=== PATIENT | female | born 1960 | race Caucasian/White ===

== ENCOUNTER 2018-06-07 11:40 | Outpatient (REF) | payer MEDICAID, SELFPAY ==
[2018-06-07 12:34] LABS: TSH (W/Ref FT4) 1.79 uIU/mL (0.358-3.74)
== END 2018-06-07 12:00 ==
LOC: LBN 11:40
PROVIDERS: PCP Family Medicine; Visit Provider Family Medicine
DX: R63.4 Abnormal weight loss (principal)
CPT/HCPCS: 84443

== ENCOUNTER 2018-08-07 14:35 | Outpatient (REF) | payer MEDICAID, SELFPAY ==
[2018-08-08 16:49] LABS: Bilirubin Negative (Negative); Blood Trace-intact (Negative); Clarity Cloudy; Glucose Negative (Negative); Ketones Negative (Negative); Leukocyte Esterase Moderate (Negative); Nitrite Positive (Negative); Specific Gravity 1.015 (1.005-1.025); Urobilinogen 0.2 EU/dL (Up TO 0.2); pH 7.5 (5-8)
[2018-08-08 16:51] LABS: Bacteria Many HPF (Negative); Epithelial Cells Many HPF (Negative); WBC >50 HPF (0-5)
[2018-08-08 16:52] LABS: C & S Indicated? No/Sq. Contamination; Casts Negative LPF (Negative); Crystals Negative HPF (Negative); Mucus Negative (Negative)
== END 2018-08-07 14:55 ==
LOC: LBN 14:35
PROVIDERS: PCP Family Medicine; Visit Provider Family Medicine
DX: N39.0 Urinary tract infection, site not specified (principal)
CPT/HCPCS: 81003; 81015

== ENCOUNTER 2018-08-10 09:18 | Outpatient (REF) | payer MEDICAID, SELFPAY ==
[2018-08-10 12:20] LABS: Bilirubin Negative (Negative); Blood Small (Negative); Clarity Sl Cloudy; Glucose Negative (Negative); Ketones Negative (Negative); Leukocyte Esterase Large (Negative); Nitrite Negative (Negative); Specific Gravity 1.015 (1.005-1.025); Urobilinogen 0.2 EU/dL (Up TO 0.2)
[2018-08-10 12:32] LABS: Bacteria Many HPF (Negative); C & S Indicated? Yes; WBC >50 HPF (0-5)
== END 2018-08-10 09:38 ==
LOC: LBN 09:18
PROVIDERS: PCP Family Medicine; Visit Provider Family Medicine
DX: N39.0 Urinary tract infection, site not specified (principal)
CPT/HCPCS: 87077; 81003; 81015; 87086; 87186

== ENCOUNTER 2018-08-19 14:59 | Outpatient (REF) | payer MEDICAID, SELFPAY ==
[2018-08-19 15:47] LABS: Abs Immature Grans 0.02 k/cumm (0.0-0.09); Absolute Basophil Count 0.01 k/cumm (0.0-0.2); Absolute Eosinophil Count 0.05 k/cumm (0.0-0.7); Absolute Lymphocyte Count 3.69 k/cumm (1.2-3.4); Absolute Monocyte Count 0.74 k/cumm (0.11-0.7); Basophils % 0.1; Eosinophils % 0.4; HCT 40.9 % (36.0-46.0); HGB 13.4 g/dL (12.0-15.5); Immature Grans % 0.2; Mean Corp. HGB Concentration 32.8 g/dL (32.0-36.0); Mean Corpuscular Hemoglobin 32.3 pg (27.0-33.0); Mean Corpuscular Volume 98.6 fL (80-95); Mean Platelet Volume 10.6 fL (8.0-11.0); Monocytes % 6.2; Neutrophils % 62.1; Platelet Count 167 x1000/uL (130-400); RBC 4.15 m/cumm (4.00-5.20); RBC Distribution Width 14.6 % (11.7-14.6); White Blood Cell Count 11.91 k/cumm (4.4-10.8)
[2018-08-19 16:05] LABS: Hemoglobin A1C 5.2 % (4.5-6.2)
[2018-08-19 16:11] LABS: ALT 10 U/L (12-78); AST 16 U/L (15-37); Albumin 3.3 g/dL (3.4-5.0); Alkaline Phosphatase 62 U/L (46-116); Anion Gap 9.8 mmol/L (3-11); BUN 8 mg/dL (7-18); Bilirubin, Total 0.6 mg/dL (0.2-1.0); CO2 29.2 mmol/L (21.0-32.0); CREATININE 0.83 mg/dL (0.55-1.02); Calcium 9.3 mg/dL (8.5-10.1); Chloride 102 mmol/L (98-107); Glucose 77 mg/dL (70-100); Potassium 3.9 mmol/L (3.5-5.1); Sodium 141 mmol/L (136-145); TSH (W/Ref FT4) 1.14 uIU/mL (0.358-3.74); Total Protein 7.5 g/dL (6.4-8.2)
== END 2018-08-19 15:19 ==
LOC: LBN 14:59
PROVIDERS: PCP Family Medicine; Visit Provider Family Medicine
DX: E11.40 Type 2 diabetes mellitus with diabetic neuropathy, unspecified (principal); E03.9 Hypothyroidism, unspecified; R63.4 Abnormal weight loss
CPT/HCPCS: 80053; 83036; 84443; 85025

== ENCOUNTER 2018-09-30 12:18 | Outpatient (REF) | payer MEDICAID, SELFPAY ==
[2018-09-30 13:09] LABS: Bilirubin Negative (Negative); Blood Moderate (Negative); Clarity Cloudy; Glucose Negative (Negative); Ketones Trace mg/dL (Negative); Leukocyte Esterase Large (Negative); Nitrite Positive (Negative); Specific Gravity 1.025 (1.005-1.025); Urobilinogen 0.2 EU/dL (Up TO 0.2)
[2018-09-30 13:18] LABS: WBC >50 HPF (0-5)
[2018-09-30 13:19] LABS: C & S Indicated? Yes
== END 2018-09-30 12:38 ==
LOC: LBN 12:18
PROVIDERS: PCP Family Medicine; Visit Provider Family Medicine
DX: R33.9 Retention of urine, unspecified (principal); N39.0 Urinary tract infection, site not specified
CPT/HCPCS: 87077; 81003; 81015; 87086; 87186

== ENCOUNTER 2018-10-01 15:33 | Outpatient (REF) | payer MEDICAID, SELFPAY ==
[2018-10-01 18:14] LABS: Bilirubin Negative (Negative); Blood Moderate (Negative); Clarity Cloudy; Glucose Negative (Negative); Ketones Trace mg/dL (Negative); Leukocyte Esterase Large (Negative); Nitrite Positive (Negative); Urobilinogen 0.2 EU/dL (Up TO 0.2)
[2018-10-01 18:22] LABS: Bacteria Many HPF (Negative); Crystals Negative HPF (Negative); Epithelial Cells Negative HPF (Negative); Other Cells Rare Renal (Negative); RBC >50 (0-2); WBC >50 HPF (0-5)
[2018-10-01 18:23] LABS: C & S Indicated? Yes; Casts Negative LPF (Negative); Mucus Trace (Negative)
== END 2018-10-01 15:53 ==
LOC: LBN 15:33
PROVIDERS: PCP Family Medicine; Visit Provider Family Medicine
DX: R33.9 Retention of urine, unspecified (principal); N39.0 Urinary tract infection, site not specified
CPT/HCPCS: 81003; 81015; 87086

== ENCOUNTER 2018-10-15 00:30 | Outpatient (CLI) | payer MEDICAID, SELFPAY ==
--- NOTE | 2018-10-15 10:25 | DI.COMBO_ITS ---
SYMPTOMS/DIAGNOSIS: RT BREAST PAIN, DIAGNOSTIC MAMMOGRAM, ADDITIONAL VIEWS OF THE RIGHT BREAST AND RIGHT BREAST ULTRASOUND: Mammograms were interpreted according to the usual protocol including computer analysis with CAD system, tomosynthesis and C view imaging. There are no priors for comparison. Should they become available, an addendum will be issued. Breast density B. No suspicious microcalcifications are seen. No suspicious masses are seen in the left breast. There is an asymmetric density in the upper outer quadrant of the right breast. The skin and axilla are unremarkable. Right breast ultrasound was performed in the upper outer quadrant. There was a question of an area of hypoechogenicity in the 10:00 o'clock position of the right breast. The area was much less prominent under direct visualization in cine. It appears to represent fibroglandular tissue. IMPRESSION: No definite evidence for malignancy. Six month follow up right mammogram is requested for re-evaluation. Category 3. The findings were discussed with the patient and caregiver at the time of the examination. When prior films become available, an addendum will be issued. MQSA ASSESSMENT OF FINDINGS: Probably benign. Six month follow-up recommended. Category 3. Patient will receive a letter notifying them of these results. BI-RADS category B. There are scattered areas of fibroglandular density.
== END 2018-10-15 00:50 ==
PROVIDERS: PCP Family Medicine; Visit Provider Family Medicine
DX: N64.4 Mastodynia (principal); R92.8 Other abnormal and inconclusive findings on diagnostic imaging of breast; N60.81 Other benign mammary dysplasias of right breast
CPT/HCPCS: 76642; 77062; 77066; G0279

== ENCOUNTER 2018-10-29 19:17 | Inpatient (IN) | payer MEDICAID, SELFPAY ==
[2018-10-29] VITALS (63 sets, daily range): BP systolic 69–109; BP diastolic 40–61; PULSE 77–113; RESP 13–26; TEMP 36.6–37.2; O2SAT 80–97
--- NOTE | 2018-10-29 19:24 | W.ED.GENAD ---
Discharge Plan Disposition Patient Disposition: [facility] INPATIENT Condition: Critical Discharge Details Chief Complaint: SOB Clinical Impression: HCAP (healthcare-associated pneumonia), Sepsis Reason For Visit: NOAM Primary Care Provider: Pio Odonnell ED Provider: Chance [facility] [place] Meds and New Rx's Prescriptions: No Action prednisone 10 mg Tablet 80 mg PO DAILY RF: 0 albuterol sulfate 2.5 mg /3 mL (0.083 %) Solution For Nebulization 1 neb Inhalation TID RF: 0 valproic acid (as sodium salt) 250 mg/5 mL Solution 10 ml PO BID RF: 0 mycophenolate mofetil 200 mg/mL Suspension For Reconstitution 0.5 ml PO DAILY RF: 0 bupropion HCl 150 MG tablet extended release 12 hr 150 mg PO DAILY RF: 0 trazodone 50 MG tablet 50 mg PO HS RF: 0 simethicone 180 MG capsule 180 mg PO TID PRNRF: 0 melatonin 3 MG tablet 3 mg PO HS PRNRF: 0 levothyroxine 100 MCG tablet 100 mcg PO DAILY AM RF: 0 prednisone 2.5 MG tablet 2.5 mg PO DAILY RF: 0 simvastatin 20 MG tablet 20 mg PO HS RF: 0 carbidopa-levodopa 1 EACH tablet 1 ea PO QID RF: 0 bupropion HCl 150 MG tablet extended release 24 hr 300 mg PO QAM RF: 0 cholecalciferol (vitamin D3) 1,000 UNITS tablet 2,000 units PO DAILY RF: 0 lamotrigine 50 MG tablet extended release 24hr 50 mg PO BID RF: 0 Multivitamin/Iron/Folic Acid [Centrum Adults Tablet] 1 EACH Tablet 1 tab PO DAILY RF: 0 aspirin 81 MG tablet,chewable 81 mg PO DAILY RF: 0 Medical Decision Making 58 yo female who is bed bound with right sided weakness from prior cva who comes in from the [facility] with 3 days of cough/weakness and today had fevers to 102 and hypoxia into the 70's so was sent here. She normally wears 2 L NC, here on 2 L her o2 saturation is 88% and is noted to have systolic bp's in the 80's. She states she has had a cough, along with diarrhea. She has diminished breath sounds at the bases bilaterally on exam and has mild llq pain. Denies headaches or chest pain. No rashes noted on exam. Will obtain iamging of the chest/abd/pelvis given the fever and cough to eval for pna and also given abd tenderness to eval for diverticulitis. Will also check for influenza and give fluids for her hypotension Patient's labs show ky, has lactic acidosis. CT shows bilateral pneumonia. she remains hypotensive. I had a long discussion with her about placing a central line if pressors are needed and she declined to have a central line at this time and has the capacity to make her own decisions. She would like pressors given through a peripheral line if they are needed and understands the risks of extravasation if this does happen. Will given another liter of fluids and check another lactate. Spoke with Dr. Garza who will admit the patient Differential Diagnosis pna, diverticulitis, influenza, uti Imaging Data Radiologic Study: Attestation: I personally reviewed and interpreted this imaging study as follows: Imaging: CT Scan Radiologist's impression: pna, fecal impaction HPI General Mode of arrival: EMS. Date/Time Provider Initiated Documentation: 10/29/18 19:21. Limitations to Documentation: no limitations. Information obtained by: patient and EMS. History of Present Illness 58 year old F presents to the emergency department with the chief complaint of fever, Patient reports no radiation. Patient started experiencing this day(s) (1) and it has been intermittent. No relieving factors improve symptom(s), No exacerbating factors reported . Patient notes no other symptoms.. Patient did receive the following treatments prior to arrival, none Related Data Home Medications Medication Instructions Recorded Confirmed Multivitamin/Iron/Folic Acid 1 tab PO DAILY 08/08/17 10/29/18 [Centrum Adults Tablet] bupropion HCl 150 mg PO DAILY 08/08/17 10/29/18 bupropion HCl 300 mg PO QAM 08/08/17 10/29/18 carbidopa-levodopa 1 ea PO QID 08/08/17 10/29/18 cholecalciferol (vitamin D3) 2,000 units PO DAILY 08/08/17 10/29/18 lamotrigine 50 mg PO BID 08/08/17 10/29/18 levothyroxine 100 mcg PO DAILY AM 08/08/17 10/29/18 melatonin 3 mg PO HS PRN 08/08/17 12/08/17 prednisone 2.5 mg PO DAILY 08/08/17 12/08/17 simethicone 180 mg PO TID PRN 08/08/17 12/08/17 simvastatin 20 mg PO HS 08/08/17 12/08/17 trazodone 50 mg PO HS 08/08/17 10/29/18 aspirin 81 mg PO DAILY chew 08/10/17 10/29/18 albuterol sulfate 1 neb INHALATION TID 10/29/18 10/29/18 mycophenolate mofetil 0.5 ml PO DAILY 10/29/18 10/29/18 prednisone 80 mg PO DAILY 10/29/18 10/29/18 valproic acid (as sodium salt) 10 ml PO BID 10/29/18 10/29/18 Previous Rx's Medication Instructions Recorded aspirin 81 mg PO DAILY chew 08/10/17 Allergies Allergy/AdvReac Type Severity Reaction Status Date / Time naproxen [From Aleve] Allergy Unverified 10/29/18 20:16 Penicillins Allergy Unverified 10/29/18 20:16 propoxyphene Allergy Unverified 10/29/18 20:16 Sulfa (Sulfonamide Allergy Unverified 10/29/18 20:16 Antibiotics) Review of Systems Review of Systems All systems reviewed & are unremarkable except as noted in HPI and below Eyes Denies loss of vision ENT Denies change in voice Cardiovascular Denies dyspnea Respiratory Denies dyspnea Gastrointestinal Denies nausea and Denies vomiting Genitourinary Denies dysuria Musculoskeletal Denies joint swelling Integumentary/Breasts Denies rash Neurologic Denies loss of vision Psychiatric Denies depression Endocrine Denies cold intolerance and Denies heat intolerance PFS Social History Smoking/Tobacco Use Status: Unknown Exam Const General: no acute distress Orientation: alert HENMT Head: normal to inspection Ears: external ears normal General nose exam: external nose normal Mouth: moist mucous membranes Eyes General: appearance normal, both eyes and all related structures Neck Neck: normal visual inspection Resp Effort & Inspection: normal respiratory effort Cardio Rate: regular rate Skin General skin exam: no rashes or lesions noted Neuro General: alert and oriented x3 Extrem General: normal to inspection Psych Mental Status: mental status grossly normal Course Lab/Test Results Lab/Test Results: 10/29/18 19:13 Blood Blood Culture - Pending 10/29/18 19:13 Blood Blood Culture - Pending Critical Care Time Critical Care Time: Yes Total Critical Care Time: 60 Attestation: time spent monitoring hemodyamics, lab review and frequent reassessments in a patient with septic shock
[2018-10-29] MEDS: Normal Saline 1,000 ML 1000 ML IV ×3 (19:40→21:30)
--- NOTE | 2018-10-29 19:42 | ED.GENADUL_ITS ---
Discharge Plan Disposition Patient Disposition: [facility] INPATIENT Condition: Critical Discharge Details Chief Complaint: SOB Clinical Impression: HCAP (healthcare-associated pneumonia), Sepsis Reason For Visit: NOAM Primary Care Provider: Pio Odonnell ED Provider: [facility] [place] Meds and New Rx's Prescriptions: No Action prednisone 10 mg Tablet 80 mg PO DAILY RF: 0 albuterol sulfate 2.5 mg /3 mL (0.083 %) Solution For Nebulization 1 neb Inhalation TID RF: 0 valproic acid (as sodium salt) 250 mg/5 mL Solution 10 ml PO BID RF: 0 mycophenolate mofetil 200 mg/mL Suspension For Reconstitution 0.5 ml PO DAILY RF: 0 bupropion HCl 150 MG tablet extended release 12 hr 150 mg PO DAILY RF: 0 trazodone 50 MG tablet 50 mg PO HS RF: 0 simethicone 180 MG capsule 180 mg PO TID PRNRF: 0 melatonin 3 MG tablet 3 mg PO HS PRNRF: 0 levothyroxine 100 MCG tablet 100 mcg PO DAILY AM RF: 0 prednisone 2.5 MG tablet 2.5 mg PO DAILY RF: 0 simvastatin 20 MG tablet 20 mg PO HS RF: 0 carbidopa-levodopa 1 EACH tablet 1 ea PO QID RF: 0 bupropion HCl 150 MG tablet extended release 24 hr 300 mg PO QAM RF: 0 cholecalciferol (vitamin D3) 1,000 UNITS tablet 2,000 units PO DAILY RF: 0 lamotrigine 50 MG tablet extended release 24hr 50 mg PO BID RF: 0 Multivitamin/Iron/Folic Acid [Centrum Adults Tablet] 1 EACH Tablet 1 tab PO DAILY RF: 0 aspirin 81 MG tablet,chewable 81 mg PO DAILY RF: 0 Medical Decision Making 58 yo female who is bed bound with right sided weakness from prior cva who comes in from the [facility] with 3 days of cough/weakness and today had fevers to 102 and hypoxia into the 70's so was sent here. She normally wears 2 L NC, here on 2 L her o2 saturation is 88% and is noted to have systolic bp's in the 80's. She states she has had a cough, along with diarrhea. She has diminished breath sounds at the bases bilaterally on exam and has mild llq pain. Denies headaches or chest pain. No rashes noted on exam. Will obtain iamging of the chest/abd/pelvis given the fever and cough to eval for pna and also given abd tenderness to eval for diverticulitis. Will also check for influenza and give fluids for her hypotension Patient's labs show ky, has lactic acidosis. CT shows bilateral pneumonia. she remains hypotensive. I had a long discussion with her about placing a central line if pressors are needed and she declined to have a central line at this time and has the capacity to make her own decisions. She would like pressors given through a peripheral line if they are needed and understands the risks of extravasation if this does happen. Will given another liter of fluids and check another lactate. Spoke with Dr. Garza who will admit the patient Differential Diagnosis pna, diverticulitis, influenza, uti Imaging Data Radiologic Study: Attestation: I personally reviewed and interpreted this imaging study as follows: Imaging: CT Scan Radiologist's impression: pna, fecal impaction HPI General Mode of arrival: EMS . Date/Time Provider Initiated Documentation: 10/29/18 19:21 . Limitations to Documentation: no limitations . Information obtained by: patient and EMS . History of Present Illness 58 year old F presents to the emergency department with the chief complaint of fever, Patient reports no radiation. Patient started experiencing this day(s) (1) and it has been intermittent. No relieving factors improve symptom(s), No exacerbating factors reported . Patient notes no other symptoms.. Patient did receive the following treatments prior to arrival, none Related Data Home Medications Medication Instructions Recorded Confirmed Multivitamin/Iron/Folic Acid 1 tab PO DAILY 08/08/17 10/29/18 [Centrum Adults Tablet] bupropion HCl 150 mg PO DAILY 08/08/17 10/29/18 bupropion HCl 300 mg PO QAM 08/08/17 10/29/18 carbidopa-levodopa 1 ea PO QID 08/08/17 10/29/18 cholecalciferol (vitamin D3) 2,000 units PO DAILY 08/08/17 10/29/18 lamotrigine 50 mg PO BID 08/08/17 10/29/18 levothyroxine 100 mcg PO DAILY AM 08/08/17 10/29/18 melatonin 3 mg PO HS PRN 08/08/17 12/08/17 prednisone 2.5 mg PO DAILY 08/08/17 12/08/17 simethicone 180 mg PO TID PRN 08/08/17 12/08/17 simvastatin 20 mg PO HS 08/08/17 12/08/17 trazodone 50 mg PO HS 08/08/17 10/29/18 aspirin 81 mg PO DAILY chew 08/10/17 10/29/18 albuterol sulfate 1 neb INHALATION TID 10/29/18 10/29/18 mycophenolate mofetil 0.5 ml PO DAILY 10/29/18 10/29/18 prednisone 80 mg PO DAILY 10/29/18 10/29/18 valproic acid (as sodium salt) 10 ml PO BID 10/29/18 10/29/18 Previous Rx's Medication Instructions Recorded aspirin 81 mg PO DAILY chew 08/10/17 Allergies Allergy/AdvReac Type Severity Reaction Status Date / Time naproxen [From Aleve] Allergy Unverified 10/29/18 20:16 Penicillins Allergy Unverified 10/29/18 20:16 propoxyphene Allergy Unverified 10/29/18 20:16 Sulfa (Sulfonamide Allergy Unverified 10/29/18 20:16 Antibiotics) Review of Systems Review of Systems All systems reviewed & are unremarkable except as noted in HPI and below Eyes Denies loss of vision ENT Denies change in voice Cardiovascular Denies dyspnea Respiratory Denies dyspnea Gastrointestinal Denies nausea and Denies vomiting Genitourinary Denies dysuria Musculoskeletal Denies joint swelling Integumentary/Breasts Denies rash Neurologic Denies loss of vision Psychiatric Denies depression Endocrine Denies cold intolerance and Denies heat intolerance PFS Social History Smoking/Tobacco Use Status: Unknown Exam Const General: no acute distress Orientation: alert HENMT Head: normal to inspection Ears: external ears normal General nose exam: external nose normal Mouth: moist mucous membranes Eyes General: appearance normal, both eyes and all related structures Neck Neck: normal visual inspection Resp Effort & Inspection: normal respiratory effort Cardio Rate: regular rate Skin General skin exam: no rashes or lesions noted Neuro General: alert and oriented x3 Extrem General: normal to inspection Psych Mental Status: mental status grossly normal Course Lab/Test Results Lab/Test Results: 10/29/18 19:13 Blood Blood Culture - Pending 10/29/18 19:13 Blood Blood Culture - Pending Critical Care Time Critical Care Time: Yes Total Critical Care Time: 60 Attestation: time spent monitoring hemodyamics, lab review and frequent reassessments in a patient with septic shock
[2018-10-29 19:46] LABS: Abs Immature Grans 0.02 k/cumm (0.0-0.09); HCT 37.1 % (36.0-46.0); HGB 12.2 g/dL (12.0-15.5); Immature Grans % 0.3; Mean Corp. HGB Concentration 32.9 g/dL (32.0-36.0); Mean Corpuscular Hemoglobin 32.2 pg (27.0-33.0); Mean Corpuscular Volume 97.9 fL (80-95); Mean Platelet Volume 9.5 fL (8.0-11.0); Platelet Count 191 x1000/uL (130-400); RBC 3.79 m/cumm (4.00-5.20); RBC Distribution Width 14.2 % (11.7-14.6); White Blood Cell Count 5.82 k/cumm (4.4-10.8)
[2018-10-29] MEDS: Omnipaque 350 MG/ML 100 ML BTL IV (19:56)
[2018-10-29 19:57] LABS: INR 1.1 (0.9-1.1); Prothrombin Time 11.1 sec (9.3-11.0)
--- NOTE | 2018-10-29 20:05 | DI.CT_ITS ---
SYMPTOM/DIAGNOSIS: COUGH, FEVER, ABD PAIN CHEST, ABDOMEN AND PELVIC CT: There are no prior comparison CT's. The exam is limited by patient motion. There are bibasilar areas of pulmonary consolidation, right greater than left. Additional smaller areas of increased density are seen inferiorly at the right lung base. The heart size is normal. There is no evidence of aortic aneurysm or dissection. The liver, spleen, adrenals and left kidney are unremarkable. There is a large stone in the right renal pelvis which does not appear to be obstructing. An additional smaller stone is seen in the mid right kidney. The pancreas is mildly atrophic. There is a large quantity of stool seen in the rectum which is markedly distended. The remainder of the colon contains a normal quantity of stool. There is no gross evidence of bowel obstruction. There is a rounded area of low density in the uterus, consistent with a fibroid. The urinary bladder is unremarkable. IMPRESSION: 1. Bibasilar consolidation. 2. Large quantity of stool in the rectum with severe distension of the rectum. 3. 15 mm. stone in the right renal pelvis without evidence of obstruction.
[2018-10-29] MEDS: methylPREDNISolone SUCC 125 MG VIAL IVP (20:06)
[2018-10-29] MEDS: Albuterol/Ipratropium 3 ML UPD VIAL UPD (20:06)
[2018-10-29 20:07] LABS: AST 26 U/L (15-37); Albumin 2.1 g/dL (3.4-5.0); Alkaline Phosphatase 66 U/L (46-116); Bilirubin, Direct 0.21 mg/dL (0.00-0.20); Bilirubin, Total 0.5 mg/dL (0.2-1.0); Lipase 24 U/L (73-393); Total Protein 7.2 g/dL (6.4-8.2)
[2018-10-29 20:08] LABS: AST 27 U/L (15-37); Albumin 2.1 g/dL (3.4-5.0); Alkaline Phosphatase 67 U/L (46-116); BUN 65 mg/dL (7-18); Bilirubin, Total 0.5 mg/dL (0.2-1.0); Calcium 9.9 mg/dL (8.5-10.1); Chloride 97 mmol/L (98-107); Estimated GFR 22.93 (mL/min/1.73m2); Glucose 141 mg/dL (70-100); Magnesium 1.7 mg/dL (1.8-2.4); Potassium 3.5 mmol/L (3.5-5.1); Sodium 134 mmol/L (136-145); Total Protein 7.2 g/dL (6.4-8.2)
[2018-10-29 20:09] LABS: ALT 2 U/L (12-78); ALT 4 U/L (12-78)
[2018-10-29 20:21] LABS: Absolute Lymphocyte Count 0.87 k/cumm (1.2-3.4); Absolute Monocyte Count 0.23 k/cumm (0.11-0.7); Absolute Neutrophil Count 4.71 k/cumm (1.2-6.7); Atypical Lymphocytes % 2; Diff Comment Manual Differential; Lactate-non-spesis 5.6 mmol/l (0.6-1.4); Polychromasia Present
--- NOTE | 2018-10-29 20:23 | DI.VRAD_ITS ---
EXAM: CT Chest With Contrast EXAM DATE/TIME: 10/29/2018 7:23 PM CLINICAL HISTORY: 58 years old, female; Pain and signs and symptoms; Fever; Abdominal pain; Generalized; Cough and fever; Other: Abdominal pain, cough; Patient HX: Cough, fever, abdominal pain. HX stroke, unable to move arms TECHNIQUE: Axial computed tomography images of the chest with intravenous contrast. All CT scans at this facility use at least one of these dose optimization techniques: automated exposure control; mA and/or kV adjustment per patient size (includes targeted exams where dose is matched to clinical indication); or iterative reconstruction. Coronal and sagittal reformatted images were created and reviewed. CONTRAST: 100 ml of Omnipaque 350 administered intravenously. COMPARISON: No relevant prior studies available. FINDINGS: Lungs: Severe right lower lobe consolidation. Moderate left lower lobe consolidation. Rounded density measuring 17 mm x 11 mm within the inferior aspect the right middle lobe (axial image 44). Differential diagnosis includes rounded pneumonia, rounded atelectasis as well as neoplasm. Pleural space: Normal. No pneumothorax. No pleural effusion. Heart: Normal. No cardiomegaly. No pericardial effusion. Aorta: Normal. No aortic aneurysm. Lymph nodes: Unremarkable. No enlarged lymph nodes. Bones/joints: Degenerative spondylosis of the thoracic spine and status post anterior spinal fusion from C5-C7. Soft tissues: Unremarkable. IMPRESSION: 1. Bilateral lower lobe consolidation, severe on the right a moderate on the left. 2. Rounded density within the right middle lobe. Differential diagnosis includes rounded pneumonia, rounded atelectasis and pulmonary neoplasm. Followup imaging to confirm resolution is recommended. EXAM: CT Abdomen and Pelvis With Contrast EXAM DATE/TIME: 10/29/2018 7:23 PM CLINICAL HISTORY: 58 years old, female; Pain and signs and symptoms; Fever; Abdominal pain; Generalized; Cough and fever; Other: Abdominal pain, cough; Patient HX: Cough, fever, abdominal pain. HX stroke, unable to move arms TECHNIQUE: Axial computed tomography images of the abdomen and pelvis with intravenous contrast. All CT scans at this facility use at least one of these dose optimization techniques: automated exposure control; mA and/or kV adjustment per patient size (includes targeted exams where dose is matched to clinical indication); or iterative reconstruction. Coronal and sagittal reformatted images were created and reviewed. CONTRAST: 100 ml of Omnipaque 350 administered intravenously. COMPARISON: No relevant prior studies available. FINDINGS: Lower thorax: No acute findings. ABDOMEN: Liver: Unremarkable. No mass. Gallbladder and bile ducts: Unremarkable. No calcified stones. No ductal dilation. Pancreas: Unremarkable. No ductal dilation. Spleen: Unremarkable. No splenomegaly. Adrenals: Normal. No mass. Kidneys and ureters: Staghorn calculus measuring 15 mm x 15 mm within the right renal pelvis. 4 mm nonobstructing stone in the right kidney lower pole. No right hydronephrosis. Unremarkable left kidney and ureter. Stomach and bowel: Large fecal load within the rectum which is distended. The remainder of the colon is unremarkable. Normal caliber small bowel. Unremarkable stomach. No bowel obstruction. Appendix: No evidence of appendicitis. PELVIS: Bladder: Unremarkable as visualized. Reproductive: Low-density uterine mass measuring 6.9 cm x 8.1 cm x 5.1 cm, likely fibroid. Unremarkable adnexa. ABDOMEN and PELVIS: Intraperitoneal space: Unremarkable. No free air. No significant fluid collection. Bones/joints: Degenerative spondylosis of the lower lumbar spine. No fracture or suspicious bone lesion. Soft tissues: Unremarkable. Vasculature: Unremarkable. No abdominal aortic aneurysm. Lymph nodes: Unremarkable. No enlarged lymph nodes. IMPRESSION: 1. Right nephrolithiasis with 15 mm Staghorn calculus within the right renal pelvis. 2. Large fecal load within the rectum, possibly fecal impaction. 3. Low-density uterine mass, likely fibroid. Dictated and Authenticated by: Duglas Barber MD. Ordering:DANNY Fletcher MD
[2018-10-29] MEDS: CEFEPIME 2 GM in Normal Saline 100 ML IVPB (20:25)
--- NOTE | 2018-10-29 21:04 | NUR.NOTE ---
patient had large stool aware, hospitalist into examine room, MD lea inserted 2nd U/S IV left upper arm #[id number] Note:
[2018-10-29] MEDS: DOPamine 400 MG/250 ML BAG 9.713 MG IV (21:16)
--- NOTE | 2018-10-29 21:18 | HPE_ITS ---
Date of service: 10/29/18 Time of Service: 21:12 Assessment and Plan (1) Sepsis: Current visit: Yes Status: Acute Sepsis. At this point pneumonia the the putative source but I would like to see a urine as well. Regardless, in the meantime will continue treatment with vancomycin and cefepime, renally dosed. We will continue aggressive fluid resuscitation but will start dopamine (note that patient has declined to have a central line so dopamine will be used in the absence of a central venous access). We will also obtain urinalysis and will monitor CBC electrolytes and renal function. Will also give stress dose steroids though it should be noted that patient has received 125 mg of Solu-Medrol here in the emergency room with persistent hypotension so clearly that is not the immediate issue as far as her blood pressure goes. Advanced directives were reviewed with patient and she remains full code History of Present Illness Chief Complaint: cough, fever Narrative: Patient is a 58-year-old female with multiple medical problems, resident of the [facility]. She comes to the emergency room with several days of cough, fever, weakness and O2 sats down to the 70s. In the emergency room initial findings of note for hypotension, hypoxia, bilateral pneumonitis. She was given 2 L of fluids and loading doses of vancomycin and cefepime. She was admitted for further evaluation and management Past medical history stroke, diabetes, bipolar, unspecified autoimmune disorder, hypothyroid, Parkinson's, history of bronchospasm Allergies Naprosyn, penicillin, propoxyphene, sulfa Medications aspirin 81 daily bupropion 450 daily, Sinemet, vitamin D, Lamictal 50 twice daily, Synthroid 100 daily, mycophenolate 0.5 daily, prednisone maintenance 2.5 daily did receive 80mg recently trazodone 50 at bedtime Depakote uncertain dose Physical exam: Temp 37.2 blood pressure at present 73 systolic, pulse 99 O2 sat 97. HEENT no signs of head trauma neck is supple lungs sounds are diminished, bronchial, heart obscured by respirations but regular rate and rhythm. Abdomen is soft nontender pelvic rectal exams deferred neurological patient has severe dysarthria and right hemiparesis Laboratory: White count 5.8 hematocrit 37 platelet 191 sodium 134 potassium 3.5 chloride 97 bicarb 25 BUN 65 creatinine 2.2 glucose [address] chest abdomen pelvis shows bilateral pneumonitis, no acute findings in the abdomen Review of Systems Review of Systems All systems reviewed & are unremarkable except as noted in HPI and below PFSH Social History Smoking/Tobacco Use Status: Unknown Meds Home Medications Medication Instructions Recorded Confirmed Type Multivitamin/Iron/Folic Acid 1 tab PO DAILY 08/08/17 10/29/18 History [Centrum Adults Tablet] bupropion HCl 150 mg PO DAILY 08/08/17 10/29/18 History bupropion HCl 300 mg PO QAM 08/08/17 10/29/18 History carbidopa-levodopa 1 ea PO QID 08/08/17 10/29/18 History cholecalciferol (vitamin D3) 2,000 units PO DAILY 08/08/17 10/29/18 History lamotrigine 50 mg PO BID 08/08/17 10/29/18 History levothyroxine 100 mcg PO DAILY AM 08/08/17 10/29/18 History melatonin 3 mg PO HS PRN 08/08/17 12/08/17 History prednisone 2.5 mg PO DAILY 08/08/17 12/08/17 History simethicone 180 mg PO TID PRN 08/08/17 12/08/17 History simvastatin 20 mg PO HS 08/08/17 12/08/17 History trazodone 50 mg PO HS 08/08/17 10/29/18 History aspirin 81 mg PO DAILY chew 08/10/17 10/29/18 Rx albuterol sulfate 1 neb INHALATION TID 10/29/18 10/29/18 History mycophenolate mofetil 0.5 ml PO DAILY 10/29/18 10/29/18 History prednisone 80 mg PO DAILY 10/29/18 10/29/18 History valproic acid (as sodium salt) 10 ml PO BID 10/29/18 10/29/18 History Allergies Allergy/AdvReac Type Severity Reaction Status Date / Time naproxen [From Aleve] Allergy Unverified 10/29/18 20:16 Penicillins Allergy Unverified 10/29/18 20:16 propoxyphene Allergy Unverified 10/29/18 20:16 Sulfa (Sulfonamide Allergy Unverified 10/29/18 20:16 Antibiotics) Exam Narrative Exam Narrative: per HPI Results Labs : 10/29/18 19:40 10/29/18 19:40 Laboratory Results - last 24 hr 10/29/18 10/29/18 10/29/18 19:40 19:40 19:40 WBC 5.82 RBC 3.79 L Hgb 12.2 Hct 37.1 MCV 97.9 H MCH 32.2 MCHC 32.9 RDW 14.2 Plt Count 191 MPV 9.5 Immature Gran % 0.3 Neutrophils % 58.0 Band Neutrophils % 23.0 Lymphocytes % 13.0 Atypical Lymphs % 2 Monocytes % 4.0 Eosinophils % 0.0 Basophils % 0.0 Absolute Neutrophils 4.71 Absolute Lymphocytes 0.87 L Absolute Monocytes 0.23 Absolute Eosinophils 0.00 Absolute Basophils 0.00 Differential Comment Manual differential RBC Morphology See below Polychromasia Present PT INR APTT Sodium 134 L Potassium 3.5 Chloride 97 L Carbon Dioxide 25.0 Anion Gap 12.0 H BUN 65 H Creatinine 2.20 H Estimated GFR/1.73 m2 22.93 Glucose 141 H Lactate 5.6 H Calcium 9.9 Magnesium 1.7 L Total Bilirubin 0.5 Conjugated Bilirubin AST 27 ALT 4 L Alkaline Phosphatase 67 Total Protein 7.2 Albumin 2.1 L Lipase 10/29/18 10/29/18 19:40 19:40 WBC RBC Hgb Hct MCV MCH MCHC RDW Plt Count MPV Immature Gran % Neutrophils % Band Neutrophils % Lymphocytes % Atypical Lymphs % Monocytes % Eosinophils % Basophils % Absolute Neutrophils Absolute Lymphocytes Absolute Monocytes Absolute Eosinophils Absolute Basophils Differential Comment RBC Morphology Polychromasia PT 11.1 H INR 1.1 APTT 36.0 H Sodium Potassium Chloride Carbon Dioxide Anion Gap BUN Creatinine Estimated GFR/1.73 m2 Glucose Lactate Calcium Magnesium Total Bilirubin 0.5 Conjugated Bilirubin 0.21 H AST 26 ALT 2 L Alkaline Phosphatase 66 Total Protein 7.2 Albumin 2.1 L Lipase 24 L Last Vital Signs Temp 37.2 C 10/29/18 19:21 Pulse 97 H 10/29/18 20:00 Resp 19 10/29/18 20:01 BP 78/43 L 10/29/18 20:00 Pulse Ox 97 10/29/18 20:01
[2018-10-29 21:20] LABS: Lactate-non-spesis 6.4 mmol/l (0.6-1.4)
[2018-10-29] MEDS: VANCOMYCIN 1,000 MG in Normal Saline 250 ML 166.6666 MG IVPB (21:20)
--- NOTE | 2018-10-29 21:49 | NUR.NOTE ---
during IV check, Left upper arm appeared swollen, IV infused stopped, MD made aware. patient agreed to have femoral line Nursing Note:
--- NOTE | 2018-10-29 22:43 | NUR.NOTE ---
MD Power ionserted triple lumen central line in right groin patient tolerated it well Nursing Note:
--- NOTE | 2018-10-29 22:49 | NUR.NOTE ---
late entry, 16 estonian catheter 200mL voided. Nursing Note:
--- NOTE | 2018-10-29 22:51 | NUR.NOTE ---
report given to Alicia RN Nursing Note:
--- NOTE | 2018-10-29 23:05 | NUR.NOTE ---
IV's removed from left upper arm, warm blanket applied Nursing Note:
[2018-10-30] VITALS (192 sets, daily range): BP systolic 77–140; BP diastolic 39–101; PULSE 77–152; RESP 13–30; TEMP 36.7–37.1; O2SAT 84–99
[2018-10-30 03:45] LABS: Bilirubin Negative (Negative); Blood Small (Negative); Clarity Clear; Glucose Negative (Negative); Ketones Negative (Negative); Leukocyte Esterase Small (Negative); Nitrite Positive (Negative); Urobilinogen 0.2 EU/dL (Up TO 0.2)
[2018-10-30 03:56] LABS: Bacteria Few HPF (Negative); Crystals Negative HPF (Negative); Epithelial Cells Rare HPF (Negative); Mucus Negative (Negative); RBC 0-2 (0-2)
[2018-10-30 03:57] LABS: C & S Indicated? Yes; Casts Negative LPF (Negative)
[2018-10-30] MEDS: methylPREDNISolone SUCC 40 MG VIAL 20 MG IVP ×3 (04:48→20:43)
[2018-10-30 07:46] LABS: HCT 33.1 % (36.0-46.0); HGB 10.8 g/dL (12.0-15.5); Mean Corp. HGB Concentration 32.6 g/dL (32.0-36.0); Mean Corpuscular Hemoglobin 32.1 pg (27.0-33.0); Mean Corpuscular Volume 98.5 fL (80-95); Mean Platelet Volume 9.8 fL (8.0-11.0); Platelet Count 158 x1000/uL (130-400); RBC 3.36 m/cumm (4.00-5.20); RBC Distribution Width 14.1 % (11.7-14.6); White Blood Cell Count 6.06 k/cumm (4.4-10.8)
[2018-10-30 07:51] LABS: Anion Gap 11.6 mmol/L (3-11); BUN 40 mg/dL (7-18); CO2 23.4 mmol/L (21.0-32.0); Chloride 107 mmol/L (98-107); Estimated GFR 46.14 (mL/min/1.73m2); Glucose 175 mg/dL (70-100); Sodium 142 mmol/L (136-145)
[2018-10-30 08:02] LABS: Potassium 2.6 mmol/L (3.5-5.1)
[2018-10-30] MEDS: Albuterol 2.5 MG/3 ML INH SOLN VIAL IH (09:20)
[2018-10-30] MEDS: POTASSIUM CHLORIDE 20 MEQ/100 ML BAG 50 MEQ IVPB ×2 (10:01→12:15)
[2018-10-30] MEDS: Normal Saline Flush 10 ML SYR IVP ×4 (10:01→19:57)
[2018-10-30 10:42] LABS: Lactate-non-spesis 1.9 mmol/l (0.6-1.4)
--- NOTE | 2018-10-30 11:08 | OTIE_ITS ---
Occupational Therapy Notes Inpatient Occupational Therapy Evaluation Date: 10/30/18 Referring Doctor:Yojana Osorio MD OT Orders: eval and treat Precautions: Contact precautions PATIENT PROFILE/ADMITTING DIAGNOSIS: Pt is a 58 year old female who presented to the ER on 10/29/18 after several days of coughing, fever and weakness with O2 sats in 70's from [facility]. It was found that she had hypotension, hypoxia and (B) pneumonitis. Past Medical History: Stroke, diabetes, bipolar, unspecified autoimmune disorder, hypothyroid, Parkinson's, history of bronchospasm, (R) hemiparesis. Social History/Home Situation: Pt is a resident at [facility]. She reports that she is maida lift (A) for any ambulation. She also reports that her baseline is total (A) all ADLs with bathing being performed in bed, dressing in bed, eating sitting in bed, she reports that the only movement she had throughout the day was from bed to the chair and back to her bed. She sleeps in a bed but requires (A) for any movement or adjustment. Equipment owned/DME: Living in SNF with all DME needs met. SUBJECTIVE: Pt was sitting in her bed with (B) UE propped on pillows. She is tired and is agreeable to OT session however reports throughout session that she is total (A) for all ADLs/IADLs. OBJECTIVE: General Observation:, Noticeable tremor in (L) UE, BP (L) UE, Telemery, O2 nasal mask Mental Status: A&Ox3 Pain: no c/o pain ROM: (B) UE pt reports she is unable to lift. Nursing reports that she can lift (L) UE minimally. Pt was unable to demonstrate this during consult. She had no AROM to (R) UE and stated please don't lift (R) arm right now OT was unable to test PROM. STRENGTH: (B) UE unable to accurately test strength due to limited ROM. She had weak hospital account manager on (L) UE and unable to hospital account manager OTs fingers with (R). BALANCE Static sitting Good Dynamic Sitting Poor SPECIAL TESTS: Daily Activity Limitations Standardized Measure [facility] AM -PAC ?6 clicks? Daily Activity Inpatient Short Form: Raw score: 6 Standardized score: 17.07 CMS score: 100% CMS modifier: CN INFORMED CONSENT/EDUCATION: Pt instructed in purpose of OT Consult and plan of care. ASSESSMENT: Patient is a 58-year-old female referred to occupational therapy services with diagnosis of hypotension, hypoxia and (B) peneumonitis secondary to Stroke, diabetes, bipolar, unspecified autoimmune disorder, hypothyroid, Park inson's, history of bronchospasm, (R) hemiparesis. Pt was seen for evaluation only, she reports that her baseline (I) is total (A) she has limited function in (B) UE and this limits her (I) in ADL routines. Pt is not appropriate for skilled OT intervention and is currently presenting at her baseline. Due to this, OT will discharge pt from skilled OT services and recommends that pt return to [facility] when medically cleared per MD. AMPAC score 6, CMS score 100% Patient is assessed as a high [id number] complexity based on the following: History: See Above Examination: See Above Presentation: Evolving Decision Making: AMPAC score 6, CMS score 100% GOALS N/A PLAN OF CARE/TREATMENT PLAN: OT consult only DISCHARGE RECOMMENDATIONS OT recommends that pt return to [facility] when medically cleared per MD. TREATMENT TIME/MINUTES/CODES 24300, 10 minutes (10:50) Summer Ventura OTR/L [facility]
[2018-10-30] MEDS: POTASSIUM CHLORIDE/0.9% NACL 1,000 ML 125 MEQ IV ×2 (11:12→20:07)
[2018-10-30 11:18] LABS: Abs Immature Grans 0.03 k/cumm (0.0-0.09)
[2018-10-30 11:27] LABS: Magnesium 1.7 mg/dL (1.8-2.4)
--- NOTE | 2018-10-30 11:57 | PHARADMIT ---
Addendum entered by Winston Ward III 10/31/18 10:56: Pharmacy Note Subjective HCAP with complicatd UTI, has dysphagia from CVA (awaiting swallow evaluation) Objective VS-Ok Na-147 K+3.9 Mag-1.8 H&H-9.5/29.5 Assessment empiric TXT with Vancomycin/Cefepime,. Awaiting swallow evaluation before giving Wellbutrin XL dose. Plan Urology consult may require patient to be transferred ( unavailable until Sunday), due to staghorn Calculus Original Note: Admission Pharmacy Clinical Review SEPSIS, PNEUMONIA Code Status Full Code Current Weight Wgt-71 kg Renally Cleared and Narrow Therapeutic Index Meds CrCl~ 38.5 mL/min Meds-OK QTc Value / Action Taken none currrent BP Control, Fever BP- 81/49 Tmax- 36.9C Electrolytes reviewed Na- 142 K+2.6 Mag-1.7 DVT Prophylaxis ASA, Opiate Usage / Scheduled Bowel Regimen Ordered No No Plt/SCr for Heparin / Enoxaparin Plts- 158 SCr-1.20 INR for Warfarin inr-1.1 H/H stable, WBC/Bands H&H- 10.8/33.1 WBC- 6.06 Antibiotic appropriateness Cefepime, Vancomycin Cultures and Sensitivities Blood, Urine, MRSA-nose,-pending, Flu-recheck pending Surgical ABX d/c within 24 hr na DM control / Insulin Dosing BG-175 Heart Failure (Check EF%) (HANNA's, B-Block, Diuretics) Levophed, IV to PO Switch No Home Meds Reviewed Yes Home Meds Not Ordered Lokesh Salgado, Comments PatOwn-Mycophenolate Liquid
[2018-10-30 11:58] LABS: Absolute Lymphocyte Count 0.36 k/cumm (1.2-3.4); Absolute Monocyte Count 0.18 k/cumm (0.11-0.7); Absolute Neutrophil Count 5.21 k/cumm (1.2-6.7)
[2018-10-30 12:00] LABS: Diff Comment Manual Differential
[2018-10-30] MEDS: Multivitamin w/Minerals TAB 1 TAB PO (12:14)
[2018-10-30] MEDS: Carbidopa 25/Levodopa 100 TAB PO ×3 (12:14→20:45)
[2018-10-30] MEDS: Aspirin 81 MG CHEW PO (12:14)
[2018-10-30] MEDS: lamoTRIgine 25 MG TAB 50 MG PO ×2 (12:14→20:43)
--- NOTE | 2018-10-30 12:39 | PT.INIE ---
Date of service: 10/30/18 Time of Service: 10:20 PT Notes Inpatient Physical Therapy Evaluation Date: 10/30/18 Referring Doctor: Dr. Yojana Osorio PT Orders: PT CONSULT: evaluate and treat Precautions: contact Patient Profile/Admitting Diagnosis: Patient admitted to 10/29/18 with a diagnosis of sepsis secondary to pneumonia. She is a resident of the [facility] for long-term care. PMHX: Patient is status post CVA with right hemiparesis and aphasia. Diabetes; bipolar disorder; unspecified autoimmune disorder; hypothyroidism; Parkinson's disease (chronically managed on Synthroid). Social History/Home Situation: Patient is a long-term resident of the [facility]. She is able to respond to direct questions, and reports that she utilizes a Ashley lift at baseline. She sits up to a wheelchair during the day, and is unable to perform assisted transfers. Equipment Owned/DME: Resident of [facility] Subjective: Patient is able to effectively respond to direct questioning with brief answers, although these are difficult to discern at times. She is able to provide her baseline mobility level, indicating that she typically transfers Via Ashley lift. Objective: General Observation: Resting in bed with nursing present. At time of consultation, patient has been incontinent of urine and bowel. She has an IV in the right groin, O2 mask, and telemetry. Mental Status: Alert throughout session. Patient provides consistent history although with brief answers. Pain: Denies ROM: Right Upper Extremity: Patient has significant flexor tone throughout the right upper extremity, with elbow flexion contracture. Passive shoulder flexion allows 60 degrees on the right. Elbow motion allows 70-95 degrees of flexion. I am able to passively open patient's hand. Left Upper Extremity: Shoulder flexion passively was 90 degrees. Elbow motion -20 extension to 100 degrees flexion. Right Lower Extremity: Passive motion is grossly WFL. She tolerates 80 degrees of passive hip flexion, knee motion 0-100 degrees. Left Lower Extremity: Grossly WFL passively. Patient does tolerate 0 degrees dorsiflexion. Strength: Right Upper Extremity: Patient is unable to perform any volitional motion of the right upper extremity. Strength is grossly 0/5 Left Upper Extremity: Shoulder flexion 3-/5. Biceps 3/5. Triceps 3/5. 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 Right Lower Extremity: Grossly 0/5 for quads, hip flexion, ankle dorsiflexion Left Lower Extremity: Quads 3-/5. Hip flexion 3-/5. Ankle dorsiflexion 3/5. Sensation: Intact distally Bed Mobility/Transfers: Rolling: Max assist of 2 Supine to sit: Unable Gait: Unable Balance: Static Sitting: Unable Dynamic Sitting: Unable Static Standing: Unable Dynamic Standing: Unable Special Tests: Mobility Limitations Standardized Measure [facility] AM-PAC 6 clicks Basic Mobility Inpatient Short Form: Raw Score: 6 CMS Score: 100% deficit Informed Consent/Education: Patient instructed in purpose of PT consult and plan of care. Patient was instructed in a brief therapeutic exercise program, consisting of left shoulder flexion x 10 reps, SAQ x 10 reps, and left ankle pumps x 10 reps. She requires max cues for completion. Assessment: Patient is a 58 year old female referred to physical therapy services with the diagnosis of sepsis secondary to pneumonia. Patient presents with clinical signs and symptoms consistent with diagnosis, with chronic mobility deficits related to her complicated medical history. Patient is a long-term resident of the [facility], and is completely dependent for transfers and self-care. She appears at baseline level of function, and is subsequently not appropriate for skilled PT intervention in acute care setting. Patient is assessed as High [id number] complexity based on the following: History: 58-year-old female admitted for acute medical management of sepsis related to pneumonia, in the presence of chronic right hemiparesis and aphasia related to an old CVA, diabetes, and Parkinson's disease. Patient is dependent for all mobility and self-care at baseline. Examination: Functional limitations include dependence for bed mobility, transfers and all self-care. Presentation: Unstable due to acute medical issues requiring monitoring in ICU Decision Making: High complexity Plan of Care/Treatment Plan: Patient is not a candidate for PT intervention in acute care setting, as she is at her baseline level of function DISCHARGE RECOMMENDATIONS: Return to the [facility] for continued long-term care TREATMENT CODE/TIME: 30 minutes ([id number])
[2018-10-30] MEDS: Acetaminophen 325 MG TAB PO (12:52)
--- NOTE | 2018-10-30 12:53 | IN_ITS ---
Date of service: 10/30/18 Time of Service: 10:20 PT Notes Inpatient Physical Therapy Evaluation Date: 10/30/18 Referring Doctor: Dr. Yojana Osorio PT Orders: PT CONSULT: evaluate and treat Precautions: contact Patient Profile/Admitting Diagnosis: Patient admitted to 10/29/18 with a diagnosis of sepsis secondary to pneumonia. She is a resident of the [facility] for long-term care. PMHX: Patient is status post CVA with right hemiparesis and aphasia. Diabetes; bipolar disorder; unspecified autoimmune disorder; hypothyroidism; Parkinson's disease (chronically managed on Synthroid). Social History/Home Situation: Patient is a long-term resident of the [facility]. She is able to respond to direct questions, and reports that she utilizes a Ashley lift at baseline. She sits up to a wheelchair during the day, and is unable to perform assisted transfers. Equipment Owned/DME: Resident of [facility] Subjective: Patient is able to effectively respond to direct questioning with brief answers, although these are difficult to discern at times. She is able to provide her baseline mobility level, indicating that she typically transfers Via Ashley lift. Objective: General Observation: Resting in bed with nursing present. At time of consultation, patient has been incontinent of urine and bowel. She has an IV in the right groin, O2 mask, and telemetry. Mental Status: Alert throughout session. Patient provides consistent history although with brief answers. Pain: Denies ROM: Right Upper Extremity: Patient has significant flexor tone throughout the right upper extremity, with elbow flexion contracture. Passive shoulder flexion allows 60 degrees on the right. Elbow motion allows 70-95 degrees of flexion. I am able to passively open patient's hand. Left Upper Extremity: Shoulder flexion passively was 90 degrees. Elbow motion - 20 extension to 100 degrees flexion. Right Lower Extremity: Passive motion is grossly WFL. She tolerates 80 degrees of passive hip flexion, knee motion 0-100 degrees. Left Lower Extremity: Grossly WFL passively. Patient does tolerate 0 degrees dorsiflexion. Strength: Right Upper Extremity: Patient is unable to perform any volitional motion of the right upper extremity. Strength is grossly 0/5 Left Upper Extremity: Shoulder flexion 3-/5. Biceps 3/5. Triceps 3/5. Asset Protection Lead is full but weak. Right Lower Extremity: Grossly 0/5 for quads, hip flexion, ankle dorsiflexion Left Lower Extremity: Quads 3-/5. Hip flexion 3-/5. Ankle dorsiflexion 3/5. Sensation: Intact distally Bed Mobility/Transfers: Rolling: Max assist of 2 Supine to sit: Unable Gait: Unable Balance: Static Sitting: Unable Dynamic Sitting: Unable Static Standing: Unable Dynamic Standing: Unable Special Tests: Mobility Limitations Standardized Measure [facility] AM-PAC 6 clicks Basic Mobility Inpatient Short Form: Raw Score: 6 CMS Score: 100% deficit Informed Consent/Education: Patient instructed in purpose of PT consult and plan of care. Patient was instructed in a brief therapeutic exercise program, consisting of left shoulder flexion x 10 reps, SAQ x 10 reps, and left ankle pumps x 10 reps. She requires max cues for completion. Assessment: Patient is a 58 year old female referred to physical therapy services with the diagnosis of sepsis secondary to pneumonia. Patient presents with clinical signs and symptoms consistent with diagnosis, with chronic mobility deficits related to her complicated medical history. Patient is a long-term resident of the [facility], and is completely dependent for transfers and self-care. She appears at baseline level of function, and is subsequently not appropriate for skilled PT intervention in acute care setting. Patient is assessed as High [id number] complexity based on the following: History: 58-year-old female admitted for acute medical management of sepsis related to pneumonia, in the presence of chronic right hemiparesis and aphasia related to an old CVA, diabetes, and Parkinson's disease. Patient is dependent for all mobility and self-care at baseline. Examination: Functional limitations include dependence for bed mobility, transfers and all self-care. Presentation: Unstable due to acute medical issues requiring monitoring in ICU Decision Making: High complexity Plan of Care/Treatment Plan: Patient is not a candidate for PT intervention in acute care setting, as she is at her baseline level of function DISCHARGE RECOMMENDATIONS: Return to the [facility] for continued long-term care TREATMENT CODE/TIME: 30 minutes ([id number])
--- NOTE | 2018-10-30 14:20 | NUR.NOTE ---
Spoke with Ulysses SOLANO at the [facility] regarding pt's myclophenolate and he states that they will try to bring it over to the hospital or they will call back if they cannot get it over here. He also reports that they are giving all the pills whole with no crushing. He reports that the patient had been refusing the thickened liquids/food and the patient has been eating a regular diet with direct supervision at all times and sitting upright. Medication status reported to Winston Ward in [facility] pharmacy. He will order the Wellbutrin to start tomorrow so that speech can evaluate her pill response. Dr. Osorio had okayed the missing of todays dose in regards to verifying the patient's swallowing ability first. Nursing Note:
[2018-10-30] MEDS: Pantoprazole 40 MG VIAL IVP (14:50)
[2018-10-30] MEDS: Enoxaparin 40 MG/0.4 ML SYR SC (14:50)
[2018-10-30] MEDS: Insulin Aspart 300 UNITS/3 ML PEN SC ×3 (14:51→21:53)
[2018-10-30 14:52] LABS: Lactate-non-spesis 1.6 mmol/l (0.6-1.4)
--- NOTE | 2018-10-30 16:06 | CHAPLAIN ---
I visited with Ginger this morning. I had some trouble understanding everything she said, but she shared some personal history, telling me about living in [place] and [place]. She said she has no family in the area, but know others at the [facility].
--- NOTE | 2018-10-30 16:17 | PDOC.CMIN ---
- If Service Date Differs Date of service: 10/30/18 Time of Service: 16:17 Care Management Initial Assess REASON FOR HOSPITALIZATION:: Pneumonia, sepsis PAST MEDICAL HISTORY/PAST SURGICAL HISTORY:: CVA with right-sided hemiparesis, dysphagia, dysarthria, aphasia, autoimmune disorder. PREVIOUS FUNCTIONAL STATUS/SOCIAL/FAMILY SUPPORTS:: Ginger is a resident of the [facility] rehab. She is a total assist she is out of bed with Ashley. Ginger is aphasic at baseline, she reports she has 5 children that live out of state. She states she does not have a local support system and depends on the [facility] as support. CURRENT FUNCTIONAL STATUS:: Ginger is in bed during CM assessment, she is able to answer some questions. CM notes expressive aphasia, and facial droop appears to be baseline. Ginger is asking for a indwelling catheter to be placed. CM did review care with primary nurse, also contacted the [facility] to discuss baseline activity and ability to care for self. ADVANCE DIRECTIVES:: None on file at [facility]. Has patient been provided with information about the portal?: No Did the patient sign up for the portal?: No CODE STATUS:: Full Code INSURANCE COVERAGE / FINANCIAL ISSUES:: Medicaid CURRENT HOME/COMMUNITY SERVICES/EQUIPMENT:: Ginger resides at the [facility], she is a Ashley lift for transfer, she is total care for ADLs, and incontinence. PRIMARY CARE PHYSICIAN:: Dr. Odonnell POTENTIAL DISCHARGE NEEDS:: Return to the [facility], and follow-up with Dr. Goetz PATIENT/FAMILY EDUCATION NEEDS:: Return to the [facility], coordination of discharge education and limitations. ANTICIPATED BARRIERS TO DISCHARGE:: None identified at this time. TRANSPORTATION:: Via ambulance at time of discharge coordinated by CM. PLAN:: Ginger is currently receiving IV antibiotics, she is being cared for in the ICU. Ginger was hypotensive at time of admission, with pressor support. She is receiving IV steroids. Anticipate sternal return to the [facility] when medically ready via ambulance. CM to continue to provide support and updates to the [facility] ongoing discharge planning and disposition.
--- NOTE | 2018-10-30 16:28 | INITIAL_ITS ---
- If Service Date Differs Date of service: 10/30/18 Time of Service: 16:17 Care Management Initial Assess REASON FOR HOSPITALIZATION:: Pneumonia, sepsis PAST MEDICAL HISTORY/PAST SURGICAL HISTORY:: CVA with right-sided hemiparesis, dysphagia, dysarthria, aphasia, autoimmune disorder. PREVIOUS FUNCTIONAL STATUS/SOCIAL/FAMILY SUPPORTS:: Ginger is a resident of the [facility] rehab. She is a total assist she is out of bed with Ashley. Ginger is aphasic at baseline, she reports she has 5 children that live out of state. She states she does not have a local support system and depends on the [facility] as support. CURRENT FUNCTIONAL STATUS:: Ginger is in bed during CM assessment, she is able to answer some questions. CM notes expressive aphasia, and facial droop appears to be baseline. Ginger is asking for a indwelling catheter to be placed. CM did review care with primary nurse, also contacted the [facility] to discuss baseline activity and ability to care for self. ADVANCE DIRECTIVES:: None on file at [facility]. Has patient been provided with information about the portal?: No Did the patient sign up for the portal?: No CODE STATUS:: Full Code INSURANCE COVERAGE / FINANCIAL ISSUES:: Medicaid CURRENT HOME/COMMUNITY SERVICES/EQUIPMENT:: Ginger resides at the [facility], she is a Ashley lift for transfer, she is total care for ADLs, and incontinence. PRIMARY CARE PHYSICIAN:: Dr. Odonnell POTENTIAL DISCHARGE NEEDS:: Return to the [facility], and follow-up with Dr. Goetz PATIENT/FAMILY EDUCATION NEEDS:: Return to the [facility], coordination of discharge education and limitations. ANTICIPATED BARRIERS TO DISCHARGE:: None identified at this time. TRANSPORTATION:: Via ambulance at time of discharge coordinated by CM. PLAN:: Ginger is currently receiving IV antibiotics, she is being cared for in the ICU. Ginger was hypotensive at time of admission, with pressor support. She is receiving IV steroids. Anticipate sternal return to the [facility] when medically ready via ambulance. CM to continue to provide support and updates to the [facility] ongoing discharge planning and disposition.
--- NOTE | 2018-10-30 19:11 | W.PM.PROGNOT ---
Date of Service Date of service: 10/30/18 Time of Service: 12:00 Assessment and Plan (1) Septic shock: Current visit: Yes Status: Acute Due to HCAP as well as complicated UTI, POA. Improving with antibioics, IVF, pressors. Lactates are better. Urine and blood cultures are pending. Continue empiric vancomycin/cefepime, awaiting culture data. (2) HCAP (healthcare-associated pneumonia): Current visit: Yes Status: Acute As above. Not requiring O2. Awaiting swallow eval. (3) Complicated UTI (urinary tract infection): Current visit: Yes Status: Acute with a presence of a staghorn calculus. Urology consulted. Continue empiric vanco/cefepime. (4) Staghorn calculus: Current visit: Yes Status: Acute As above (5) Autoimmune disorder: Current visit: No Status: Acute Continue mycophenilate (6) Dysphagia as late effect of cerebrovascular accident (CVA): Current visit: No Status: Chronic Swallow eval ordered. (7) Ambulatory dysfunction: Current visit: Yes Status: Chronic PT/OT (8) DVT prophylaxis: Current visit: Yes Status: Acute Lovenox (9) DALTON (acute kidney injury): Current visit: Yes Status: Acute Improving. Continue IVF and monitor Cr. (10) Discharge planning issues: Current visit: Yes Status: Acute Anticipated to return to SNF on discharge Will clarify code status Subjective Interval history since last seen: Ginger states she has a headache, chest pain, dizziness, shortness of breath, nausea. Attempts to wean her off pressors this am were unsuccessful, so levophed was re-initiated. Exam Narrative Exam Narrative: General: Middle aged female, awake, answering questions and following commands, pale, A&Ox2 HEENT: EOMI, MMM, edentuous Heart: RRR Lungs: crackles at B bases, ronchi GI: abdomen is soft, nontender, nondistended Extremities: no e/c/c BLE's Objective Objective Clinical Data: Abnormal lab results 10/29/18 10/29/18 10/29/18 Range/Units 19:40 19:40 19:40 RBC 3.79 L (4.00-5.20) m/cumm Hgb (12.0-15.5) g/dL Hct (36.0-46.0) % MCV 97.9 H (80-95) fL Absolute Lymphocytes 0.87 L (1.2-3.4) k/cumm PT (9.3-11.0) sec APTT (21.0-31.4) sec Sodium 134 L (136-145) mmol/L Potassium (3.5-5.1) mmol/L Chloride 97 L (98-107) mmol/L Anion Gap 12.0 H (3-11) mmol/L BUN 65 H (7-18) mg/dL Creatinine 2.20 H (0.55-1.02) mg/dL Glucose 141 H (70-100) mg/dL Lactate 5.6 H (0.6-1.4) mmol/l Magnesium 1.7 L (1.8-2.4) mg/dL Conjugated Bilirubin (0.00-0.20) mg/dL ALT 4 L (12-78) U/L Albumin 2.1 L (3.4-5.0) g/dL Lipase (73-393) U/L Urine Protein (Negative) mg/dL Urine Blood (Negative) Urine Nitrite (Negative) Ur Leukocyte Esterase (Negative) 10/29/18 10/29/18 10/29/18 Range/Units 19:40 19:40 21:15 RBC (4.00-5.20) m/cumm Hgb (12.0-15.5) g/dL Hct (36.0-46.0) % MCV (80-95) fL Absolute Lymphocytes (1.2-3.4) k/cumm PT 11.1 H (9.3-11.0) sec APTT 36.0 H (21.0-31.4) sec Sodium (136-145) mmol/L Potassium (3.5-5.1) mmol/L Chloride (98-107) mmol/L Anion Gap (3-11) mmol/L BUN (7-18) mg/dL Creatinine (0.55-1.02) mg/dL Glucose (70-100) mg/dL Lactate 6.4 H (0.6-1.4) mmol/l Magnesium (1.8-2.4) mg/dL Conjugated Bilirubin 0.21 H (0.00-0.20) mg/dL ALT 2 L (12-78) U/L Albumin 2.1 L (3.4-5.0) g/dL Lipase 24 L (73-393) U/L Urine Protein (Negative) mg/dL Urine Blood (Negative) Urine Nitrite (Negative) Ur Leukocyte Esterase (Negative) 10/30/18 10/30/18 10/30/18 Range/Units 02:35 06:10 06:10 RBC 3.36 L (4.00-5.20) m/cumm Hgb 10.8 L (12.0-15.5) g/dL Hct 33.1 L (36.0-46.0) % MCV 98.5 H (80-95) fL Absolute Lymphocytes 0.36 L (1.2-3.4) k/cumm PT (9.3-11.0) sec APTT (21.0-31.4) sec Sodium (136-145) mmol/L Potassium 2.6 L* (3.5-5.1) mmol/L Chloride (98-107) mmol/L Anion Gap 11.6 H (3-11) mmol/L BUN 40 H D (7-18) mg/dL Creatinine 1.20 H D (0.55-1.02) mg/dL Glucose 175 H (70-100) mg/dL Lactate (0.6-1.4) mmol/l Magnesium 1.7 L (1.8-2.4) mg/dL Conjugated Bilirubin (0.00-0.20) mg/dL ALT (12-78) U/L Albumin (3.4-5.0) g/dL Lipase (73-393) U/L Urine Protein 30 H (Negative) mg/dL Urine Blood Small H (Negative) Urine Nitrite Positive H (Negative) Ur Leukocyte Esterase Small H (Negative) 10/30/18 10/30/18 Range/Units 10:35 14:35 RBC (4.00-5.20) m/cumm Hgb (12.0-15.5) g/dL Hct (36.0-46.0) % MCV (80-95) fL Absolute Lymphocytes (1.2-3.4) k/cumm PT (9.3-11.0) sec APTT (21.0-31.4) sec Sodium (136-145) mmol/L Potassium (3.5-5.1) mmol/L Chloride (98-107) mmol/L Anion Gap (3-11) mmol/L BUN (7-18) mg/dL Creatinine (0.55-1.02) mg/dL Glucose (70-100) mg/dL Lactate 1.9 H 1.6 H (0.6-1.4) mmol/l Magnesium (1.8-2.4) mg/dL Conjugated Bilirubin (0.00-0.20) mg/dL ALT (12-78) U/L Albumin (3.4-5.0) g/dL Lipase (73-393) U/L Urine Protein (Negative) mg/dL Urine Blood (Negative) Urine Nitrite (Negative) Ur Leukocyte Esterase (Negative) Vital Signs Temperature 37.0 C 10/30/18 15:09 Temperature Source Temporal Artery Scan 10/30/18 15:09 Pulse 85 10/30/18 18:31 Pulse 87 10/30/18 18:31 Respiratory Rate 20 10/30/18 18:31 Respiratory Effort Non-Labored 10/30/18 15:09 Respiratory Depth Normal 10/30/18 15:09 Respiratory Pattern Normal 10/30/18 15:09 Blood Pressure 87/53 L 10/30/18 18:31 Blood Pressure Mean 61 10/30/18 18:31 Blood Pressure Position Sitting 10/29/18 19:21 Pulse Oximetry 91 L 10/30/18 18:43 Oxygen Delivery Method Room Air 10/30/18 18:43 Oxygen Flow Rate 0 10/30/18 18:43 Pain Level 0 10/30/18 15:09 Intake & Output 10/29/18 10/30/18 10/30/18 23:59 11:59 23:59 Intake Total 3354.671 / 3354.671 312.288 / 799.687 487.399 / 799.687 Output Total 1100 / 1400 300 / 1400 Balance 3354.671 / 3354.671 -787.712 / -600.313 187.399 / -600.313 Weight 71 kg Intake: IV 3354.671 / 3354.671 287.288 / 724.687 437.399 / 724.687 Oral 25 / 75 50 / 75 Output: Urine 1100 / 1400 300 / 1400 Other: Urine Color Yellow Light Sherrill Light Sherrill Urine Appearance Clear Clear Cloudy Comment Urinary catheter in place Catheter slid out easily when patient was turned and lozada dontae area being cleaned. No bleeding, minimal pain to patient Urine meter bag placed Stool Occult Blood Negative Negative Negative Stool Size Moderate Large Large Stool Characteristics Liquid Liquid Soft Brown Liquid Brown Laboratory Results WBC 6.06 k/cumm (4.4-10.8) 10/30/18 06:10 RBC 3.36 m/cumm (4.00-5.20) L 10/30/18 06:10 Hgb 10.8 g/dL (12.0-15.5) L 10/30/18 06:10 Hct 33.1 % (36.0-46.0) L 10/30/18 06:10 MCV 98.5 fL (80-95) H 10/30/18 06:10 MCH 32.1 pg (27.0-33.0) 10/30/18 06:10 MCHC 32.6 g/dL (32.0-36.0) 10/30/18 06:10 RDW 14.1 % (11.7-14.6) 10/30/18 06:10 Plt Count 158 x1000/uL (130-400) 10/30/18 06:10 MPV 9.8 fL (8.0-11.0) 10/30/18 06:10 Immature Gran % See Differential 10/30/18 06:10 Neutrophils % 50.0 10/30/18 06:10 Band Neutrophils % 36.0 % 10/30/18 06:10 Lymphocytes % 6.0 10/30/18 06:10 Atypical Lymphs % 2 10/29/18 19:40 Monocytes % 3.0 10/30/18 06:10 Eosinophils % 0.0 10/30/18 06:10 Basophils % 0.0 10/30/18 06:10 Absolute Neutrophils 5.21 k/cumm (1.2-6.7) 10/30/18 06:10 Absolute Lymphocytes 0.36 k/cumm (1.2-3.4) L 10/30/18 06:10 Absolute Monocytes 0.18 k/cumm (0.11-0.7) 10/30/18 06:10 Absolute Eosinophils 0.00 k/cumm (0.0-0.7) 10/30/18 06:10 Absolute Basophils 0.00 k/cumm (0.0-0.2) 10/30/18 06:10 Metamyelocytes 5.0 % 10/30/18 06:10 Differential Comment Manual differential 10/30/18 06:10 RBC Morphology See below 10/30/18 06:10 Polychromasia Present 10/29/18 19:40 PT 11.1 sec (9.3-11.0) H 10/29/18 19:40 INR 1.1 (0.9-1.1) 10/29/18 19:40 APTT 36.0 sec (21.0-31.4) H 10/29/18 19:40 Sodium 142 mmol/L (136-145) 10/30/18 06:10 Potassium 2.6 mmol/L (3.5-5.1) L* 10/30/18 06:10 Chloride 107 mmol/L (98-107) 10/30/18 06:10 Carbon Dioxide 23.4 mmol/L (21.0-32.0) 10/30/18 06:10 Anion Gap 11.6 mmol/L (3-11) H 10/30/18 06:10 BUN 40 mg/dL (7-18) H D 10/30/18 06:10 Creatinine 1.20 mg/dL (0.55-1.02) H D 10/30/18 06:10 Estimated GFR/1.73 m2 46.14 (mL/min/1.73m2) 10/30/18 06:10 Glucose 175 mg/dL (70-100) H 10/30/18 06:10 Lactate 1.6 mmol/l (0.6-1.4) H 10/30/18 14:35 Calcium 9.0 mg/dL (8.5-10.1) 10/30/18 06:10 Magnesium 1.7 mg/dL (1.8-2.4) L 10/30/18 06:10 Total Bilirubin 0.5 mg/dL (0.2-1.0) 10/29/18 19:40 Conjugated Bilirubin 0.21 mg/dL (0.00-0.20) H 10/29/18 19:40 AST 27 U/L (15-37) 10/29/18 19:40 ALT 4 U/L (12-78) L 10/29/18 19:40 Alkaline Phosphatase 67 U/L (46-116) 10/29/18 19:40 Total Protein 7.2 g/dL (6.4-8.2) 10/29/18 19:40 Albumin 2.1 g/dL (3.4-5.0) L 10/29/18 19:40 Lipase 24 U/L (73-393) L 10/29/18 19:40 Urine Color Yellow (Yellow) 10/30/18 02:35 Urine Clarity Clear 10/30/18 02:35 Urine pH 7.0 (5-8) 10/30/18 02:35 Ur Specific [place] 1.010 (1.005-1.025) 10/30/18 02:35 Urine Protein 30 mg/dL (Negative) H 10/30/18 02:35 Urine Ketones Negative mg/dL (Negative) 10/30/18 02:35 Urine Blood Small (Negative) H 10/30/18 02:35 Urine Nitrite Positive (Negative) H 10/30/18 02:35 Urine Bilirubin Negative (Negative) 10/30/18 02:35 Urine Urobilinogen 0.2 EU/dL (Up TO 0.2) 10/30/18 02:35 Ur Leukocyte Esterase Small (Negative) H 10/30/18 02:35 Urine RBC 0-2 (0-2) 10/30/18 02:35 Urine WBC 5-10 HPF (0-5) 10/30/18 02:35 Ur Epithelial Cells Rare HPF (Negative) 10/30/18 02:35 Urine Crystals Negative HPF (Negative) 10/30/18 02:35 Urine Bacteria Few HPF (Negative) 10/30/18 02:35 Urine Casts Negative LPF (Negative) 10/30/18 02:35 Urine Mucus Negative (Negative) 10/30/18 02:35 Ur Culture Indicated? Yes 10/30/18 02:35 Urine Glucose Negative mg/dL (Negative) 10/30/18 02:35
[2018-10-30] MEDS: guaiFENesin 600 MG TABCR PO (20:42)
[2018-10-30] MEDS: CEFEPIME 2 GM in Normal Saline 100 ML IVPB (20:43)
[2018-10-30] MEDS: traZODone 50 MG TAB PO (21:53)
[2018-10-31] VITALS (124 sets, daily range): BP systolic 93–130; BP diastolic 50–87; PULSE 76–160; RESP 14–27; TEMP 36.4–37.4; O2SAT 90–99
[2018-10-31] MEDS: POTASSIUM CHLORIDE/0.9% NACL 1,000 ML 125 MEQ IV (04:18)
[2018-10-31] MEDS: methylPREDNISolone SUCC 40 MG VIAL 20 MG IVP ×3 (04:19→20:15)
[2018-10-31] MEDS: Levothyroxine 100 MCG TAB PO (05:20)
[2018-10-31 07:00] LABS: Abs Immature Grans 0.04 k/cumm (0.0-0.09); Absolute Lymphocyte Count 0.36 k/cumm (1.2-3.4); Absolute Monocyte Count 0.13 k/cumm (0.11-0.7); Absolute Neutrophil Count 3.39 k/cumm (1.2-6.7); HCT 29.5 % (36.0-46.0); HGB 9.5 g/dL (12.0-15.5); Lymphocytes % 9.2; Mean Corp. HGB Concentration 32.2 g/dL (32.0-36.0); Mean Corpuscular Hemoglobin 31.7 pg (27.0-33.0); Mean Corpuscular Volume 98.3 fL (80-95); Monocytes % 3.3; Neutrophils % 86.5; Platelet Count 125 x1000/uL (130-400); RBC Distribution Width 14.4 % (11.7-14.6); White Blood Cell Count 3.92 k/cumm (4.4-10.8)
[2018-10-31 07:10] LABS: Anion Gap 9.8 mmol/L (3-11); BUN 29 mg/dL (7-18); CO2 21.2 mmol/L (21.0-32.0); CREATININE 0.89 mg/dL (0.55-1.02); Calcium 9.3 mg/dL (8.5-10.1); Chloride 116 mmol/L (98-107); Glucose 194 mg/dL (70-100); Magnesium 1.8 mg/dL (1.8-2.4); Potassium 3.9 mmol/L (3.5-5.1); Sodium 147 mmol/L (136-145)
[2018-10-31 07:42] LABS: Diff Comment Agrees w/ Instrument
[2018-10-31] MEDS: lamoTRIgine 25 MG TAB 50 MG PO ×2 (10:09→20:15)
[2018-10-31] MEDS: Aspirin 81 MG CHEW PO (10:10)
[2018-10-31] MEDS: Carbidopa 25/Levodopa 100 TAB PO ×4 (10:10→20:14)
[2018-10-31] MEDS: guaiFENesin 600 MG TABCR PO ×2 (10:10→20:15)
[2018-10-31] MEDS: buPROPion-XL 150 MG TABCR 450 MG PO (10:10)
[2018-10-31] MEDS: Insulin Aspart 300 UNITS/3 ML PEN SC ×4 (10:13→22:12)
--- NOTE | 2018-10-31 11:07 | W.SPEECHEVAL ---
Date of service: 10/31/18 Time of Service: 09:30 Speech Therapy Evaluation Note: REFERRING PROVIDER: Dr. Osorio BACKGROUND This is a 58 year old right-handed female who presented from her SNF, the [facility], on 10/29/18 due to a multi-day h/o cough, fever and decreased O2 sats. She was diagnosed with hypoxia, hypotension and bilateral pneumonitis. Consequently, she was admitted and on 10/30/18 a swallow eval was requested. PMH: bipolar disoreder, DM II, Parkinsonism, hypothyroidism, unspecified autoimmune disease, h/o CVA w/residual right hemiparesis, h/o CVA w/ left hemiparesis (08/08/17). This pt is remotely known to me from having seen her at her admission in 2016. Recommendations from a swallow eval done 08/09/17 were: Skidmore-thick liquid, a Mechanically Altered consistency diet with moistened fine-ground meats, whole pills in puree as tolerated and crushed pills in puree prn, and free water. The pt gives some non-specific information regarding p. o. consistencies taken at the [facility] in the weeks prior to this admission. She says she has regular food and regular liquid. She says she hates thickened liquid, pureed foods and crushed pills. She says that someone is always with her during meals but that she feeds herself and uses a sippy cup. OBJECTIVE Nursing reports: _ T: 36.8 - O2 sat: 94-96% on RA - LS: crackles & ronchi bilaterally in the presence of ABX - Staff at the [facility] states that they give the pt what she wants in terms of food and liquid and that they do not crush her pills. - The patient makes her own legal health-care decisions. The pt is sitting up in bed, awake/alert and greets me with mildly delayed direct eye contact but no smile. She looks much older than her stated age. She is A & O x 2 and refuses to attempt to follow a 3-step direction, saying No. Some of her responses to questions are known to be unreliable. Oral Sensorimotor Exam The pt is totally edentulous. She is unable to follow some directions for these tasks and for others she simply refuses. She shows significant head/neck, mandibular and lingual tremors. There is left lingual deviation on protrusion in a setting of severely limited excursion. Lingual lateralization is moderately decreased bilaterally (B). Lingual rapid alternating movements and lingual strength are both severely decreased. Mandibular lateralization: pt unable to do. Volitional cough severely decreased. Volitional throat-clear produced as a severely weak cough. Vocal intensity moderately-severely decreased. Vocal quality mildly-moderately breathy. Speech intelligibility to this remotely familiar listener in a setting of mild background noise is 75%, increasing to 95% with cueing for use of increased volume. Swallowing: - Honey-thick liquid: Adequate bolus control and posterior oral transit (POT); no brayan signs/symptoms (s/s) aspiration/penetration (A/P); oral clearance 100%; no oral escape. - Skidmore-thick liquid: Decreased bolus control w/inconsistent oral escape; POT delayed; brayan s/s A/P; oral clearance mildly decreased. - Puree food: Good bolus control & POT; no brayan s/s A/P; oral clearance 100%; no oral escape. - Mechanically Altered food: Mildly-moderately increased mastication time but good mastication quality; bolus control & POT WNL; no brayan s/s A/P; oral clearance: 90%; no oral escape. - Dysphagia Advanced food: Mastication quality severely decreased; bolus expectorated on request. - Pills: - crushed in puree: Results same as for Puree food. - small whole pill in puree: Decreased bolus control and delayed POT; no brayan s/s A/P; oral clearance WNL. - medium whole pill in puree: Decreased bolus control; delayed POT; brayan s/s A/P; oral clearance decreased. The pt is observed to try to self-feed liquid with a sippy-cup. She is unable to get the cup completely up to her mouth using her non-dominant LUE. This is the extremity she states she uses at the [facility]. INTERPRETATION The pt shows noticeably increased oral motor and swallowing weakness as compared to what was seen 15 months ago. She shows a moderate-severe oropharyngeal dysphagia. It is very possible that her pneumonitis is due to aspiration of p. o. consistencies that she is no longer able to safely swallow. It is also possible that, at times, she is silently aspirating. Time is spent discussing today's results and the rationale for the following recommendations with the pt. She reiterates her dislike of thickened liquids, puree food and crushed pills. She also says she doesn't like water. She verbally confirms her understanding of the risk of future aspiration pneumonia events and her willingness to take that risk. This was reviewed with her multiple times and she is consistent in her decision. The case is discussed with today's hospitalist, Dr. Osorio. She states that she will order a palliative care consult. RECOMMENDATIONS 1. Continue: -Puree diet - Honey-thick liquid 2. Change to crushed pills in puree or Honey-thick liquid medication. 3. Free water (i.e., unthickened water in the absence of any other liquid, food or medication) 4. Aided feeding 5. No straws 6. No St at this time. Thank you for referring this pt.
[2018-10-31] MEDS: SODIUM CHLORIDE 0.45% 1,000 ML 75 ML IV (11:47)
[2018-10-31] MEDS: Normal Saline Flush 10 ML SYR IVP ×2 (11:47→23:58)
--- NOTE | 2018-10-31 12:12 | EVALE_ITS ---
Date of service: 10/31/18 Time of Service: 09:30 Speech Therapy Evaluation Note: REFERRING PROVIDER: Dr. Osorio BACKGROUND This is a 58 year old right-handed female who presented from her SNF, the [facility], on 10/29/18 due to a multi-day h/o cough, fever and decreased O2 sats. She was diagnosed with hypoxia, hypotension and bilateral pneumonitis. Consequently, she was admitted and on 10/30/18 a swallow eval was requested. PMH: bipolar disoreder, DM II, Parkinsonism, hypothyroidism, unspecified autoimmune disease, h/o CVA w/residual right hemiparesis, h/o CVA w/ left hemiparesis (08/08/17). This pt is remotely known to me from having seen her at her admission in Jul.26. Recommendations from a swallow eval done 08/09/17 were: Schoolcraft-thick liquid, a Mechanically Altered consistency diet with moistened fine-ground meats, whole pills in puree as tolerated and crushed pills in puree prn, and free water. The pt gives some non-specific information regarding p. o. consistencies taken at the [facility] in the weeks prior to this admission. She says she has regular fo od and regular liquid. She says she hates thickened liquid, pureed foods and crushed pills. She says that someone is always with her during meals but that she feeds herself and uses a sippy cup. OBJECTIVE Nursing reports: _ T: 36.8 - O2 sat: 94-96% on RA - LS: crackles & ronchi bilaterally in the presence of ABX - Staff at the [facility] states that they give the pt what she wants in terms of food and liquid and that they do not crush her pills. - The patient makes her own legal health-care decisions. The pt is sitting up in bed, awake/alert and greets me with mildly delayed direct eye contact but no smile. She looks much older than her stated age. She is A & O x 2 and refuses to attempt to follow a 3-step direction, saying No. Some of her responses to questions are known to be unreliable. Oral Sensorimotor Exam The pt is totally edentulous. She is unable to follow some directions for these tasks and for others she simply refuses. She shows significant head/neck, mandibular and lingual tremors. There is left lingual deviation on protrusion in a setting of severely limited excursion. Lingual lateralization is moderately decreased bilaterally (B). Lingual rapid alternating movements and lingual strength are both severely decreased. Mandibular lateralization: pt unable to do. Volitional cough severely decreased. Volitional throat-clear produced as a severely weak cough. Vocal intensity moderately-severely decreased. Vocal quality mildly-moderately breathy. Speech intelligibility to this remotely familiar listener in a setting of mild background noise is 75%, increasing to 95% with cueing for use of increased volume. Swallowing: - Honey-thick liquid: Adequate bolus control and posterior oral transit (POT); no brayan signs/symptoms (s/s) aspiration/penetration (A/P); oral clearance 100%; no oral escape. - Schoolcraft-thick liquid: Decreased bolus control w/inconsistent oral escape; POT delayed; brayan s/s A/P; oral clearance mildly decreased. - Puree food: Good bolus control & POT; no brayan s/s A/P; oral clearance 100%; no oral escape. - Mechanically Altered food: Mildly-moderately increased mastication time but good mastication quality; bolus control & POT WNL; no brayan s/s A/P; oral clearance: 90%; no oral escape. - Dysphagia Advanced food: Mastication quality severely decreased; bolus expectorated on request. - Pills: - crushed in puree: Results same as for Puree food. - small whole pill in puree: Decreased bolus control and delayed POT; no brayan s/s A/P; oral clearance WNL. - medium whole pill in puree: Decreased bolus control; delayed POT; brayan s/s A/P; oral clearance decreased. The pt is observed to try to self-feed liquid with a sippy-cup. She is unable to get the cup completely up to her mouth using her non-dominant LUE. This is the extremity she states she uses at the [facility]. INTERPRETATION The pt shows noticeably increased oral motor and swallowing weakness as compared to what was seen 15 months ago. She shows a moderate-severe oropharyngeal dysphagia. It is very possible that her pneumonitis is due to aspiration of p. o. consistencies that she is no longer able to safely swallow. It is also possible that, at times, she is silently aspirating. Time is spent discussing today's results and the rationale for the following recommendations with the pt. She reiterates her dislike of thickened liquids, puree food and crushed pills. She also says she doesn't like water. She verbally confirms her understanding of the risk of future aspiration pneumonia events and her willingness to take that risk. This was reviewed with her multiple times and she is consistent in her decision. The case is discussed with today's hospitalist, Dr. Osorio. She states that she will order a palliative care consult. RECOMMENDATIONS 1. Continue: -Puree diet - Honey-thick liquid 2. Change to crushed pills in puree or Honey-thick liquid medication. 3. Free water (i.e., unthickened water in the absence of any other liquid, food or medication) 4. Aided feeding 5. No straws 6. No St at this time. Thank you for referring this pt.
[2018-10-31] MEDS: Enoxaparin 40 MG/0.4 ML SYR SC (13:38)
[2018-10-31] MEDS: Pantoprazole 40 MG VIAL IVP (13:38)
--- NOTE | 2018-10-31 14:57 | PDOC.CMPRO ---
- If Service Date Differs Date of service: 10/31/18 Time of Service: 14:57 Care Management Progress Note S/O: CM met with patient at the bedside she is sitting up in her bed. She continues on IV antibiotics she did have a speech eval today. Speech recommends puree diet and honey thick liquids. Provider to determine if she will be transferred for renal calculi. CM contacted palliative to see Ginger if she does not transfer to [facility]. CM us unable to contact Ginger's father with phone number provided by the [facility]. Ginger does not have another number for Father at this time. A:Ginger is a 58 year old woman admitted with sepsis r/t HCAP P:Ginger is currently receiving IV antibiotics, she is being cared for in the ICU. Ginger would like her father to make decisions if she is unable to. CM is unable to contact Patients Father the number listed is disconnected. Anticipate possible transfer r/t 15 mm renal calculus. Palliative consult CM contacted .
--- NOTE | 2018-10-31 15:15 | CMPROGNOTE_ITS ---
- If Service Date Differs Date of service: 10/31/18 Time of Service: 14:57 Care Management Progress Note S/O: CM met with patient at the bedside she is sitting up in her bed. She continues on IV antibiotics she did have a speech eval today. Speech recommends puree diet and honey thick liquids. Provider to determine if she will be transferred for renal calculi. CM contacted palliative to see Ginger if she does not transfer to [facility]. CM us unable to contact Ginger's father with phone number provided by the [facility]. Ginger does not have another number for Father at this time. A:Ginger is a 58 year old woman admitted with sepsis r/t HCAP P:Ginger is currently receiving IV antibiotics, she is being cared for in the ICU. Ginger would like her father to make decisions if she is unable to. CM is unable to contact Patients Father the number listed is disconnected. Anticipate possible transfer r/t 15 mm renal calculus. Palliative consult CM contacted .
--- NOTE | 2018-10-31 16:32 | W.PM.PROGNOT ---
Date of Service Date of service: 10/31/18 Time of Service: 16:32 Assessment and Plan (1) Septic shock: Current visit: No Status: Acute Due to HCAP as well as complicated UTI, POA. Improving with antibioics/IVF. Off pressors since 4 am. Blood cx x 2 show NGTD. Urine C&S is mixed. Continue empiric vancomycin/cefepime (D2). (2) HCAP (healthcare-associated pneumonia): Current visit: No Status: Acute As above. Not requiring O2. Passed swallow eval for pureed food/honey thickened liquids. Refusing, however, to follow speech therapist's recommendations. In light of this, aspiration events are likely to recur. I have consulted palliative care to discuss with the patient what her goals of care should be. (3) Complicated UTI (urinary tract infection): Current visit: No Status: Acute with a presence of a staghorn calculus. Continue empiric vanco/cefepime. Evidently, urology is NOT available at [facility] until 11/04/18. I have discussed the case with urology at [facility] - Dr Foster feels the patient would benefit from a stent and needs to be transferred to [facility] urgently. The transfer is planned for tomorrow, with Dr Perez of hospital medicine at [facility] being the attending for the patient. (4) Staghorn calculus: Current visit: No Status: Acute As above (5) Autoimmune disorder: Current visit: No Status: Acute Continue mycophenilate (6) Dysphagia as late effect of cerebrovascular accident (CVA): Current visit: No Status: Chronic Read discussion above. Patient is not compliant with the recommendations of speech therapist. (7) Ambulatory dysfunction: Current visit: No Status: Chronic PT/OT (8) DVT prophylaxis: Current visit: No Status: Acute Lovenox (9) DALTON (acute kidney injury): Current visit: No Status: Acute Improving. Continue IVF and monitor Cr. (10) Discharge planning issues: Current visit: No Status: Acute Anticipated to return to SNF on discharge palliative care consulted to help clarify code status/goals of care. Subjective Interval history since last seen: Ginger complains of R-sided abdominal and back pain. She denies dizziness, chest pain, shortness of breath, nausea, vomiting. She is off of pressors as of 4 am this morning. She is in agreement with transfer for intervention for her kidney stone. She is refusing to follow speech therapy recommendations. Exam Narrative Exam Narrative: General: Middle aged female, awake, answering questions and following commands, pale, A&Ox2, able to clearly explain to me why she would need to go to a different hospital HEENT: EOMI, MMM Heart: RRR Lungs: Diminished breath sounds B, coarse. GI: abdomen is soft, nontender, nondistended Extremities: no e/c/c BLE's Objective Objective Clinical Data: Abnormal lab results 10/31/18 10/31/18 Range/Units 06:29 06:29 WBC 3.92 L D (4.4-10.8) k/cumm RBC 3.00 L (4.00-5.20) m/cumm Hgb 9.5 L (12.0-15.5) g/dL Hct 29.5 L (36.0-46.0) % MCV 98.3 H (80-95) fL Plt Count 125 L (130-400) x1000/uL Absolute Lymphocytes 0.36 L (1.2-3.4) k/cumm Sodium 147 H (136-145) mmol/L Chloride 116 H (98-107) mmol/L BUN 29 H D (7-18) mg/dL Glucose 194 H (70-100) mg/dL Vital Signs Temperature 36.4 C L 10/31/18 12:30 Temperature Source Temporal Artery Scan 10/31/18 12:30 Pulse 83 10/31/18 12:00 Pulse 84 10/31/18 12:15 Respiratory Rate 18 10/31/18 12:15 Respiratory Effort 10/31/18 12:30 Respiratory Depth Normal 10/31/18 12:30 Respiratory Pattern Normal 10/31/18 12:30 Blood Pressure 119/74 10/31/18 12:00 Blood Pressure Mean 83 10/31/18 12:00 Blood Pressure Position Sitting 10/29/18 19:21 Pulse Oximetry 96 10/31/18 12:15 Oxygen Delivery Method Room Air 10/31/18 08:55 Oxygen Flow Rate 0 10/31/18 08:55 Pain Level 2 10/31/18 12:30 Intake & Output 10/30/18 10/31/18 10/31/18 23:59 11:59 23:59 Intake Total 1663.229 / 2874.697 6041.125 / 1466.125 30 / 1466.125 Output Total 300 / 1400 450 / 450 Balance 1363.229 / 064.951 4256.125 / 1016.125 -420 / 1016.125 Weight 73 kg Intake: IV 1613.229 / 9135.096 9520.125 / 1206.125 30 / 1206.125 Oral 50 / 75 260 / 260 Output: Urine 300 / 1400 450 / 450 Other: Urine Color Yellow Yellow Yellow Urine Appearance Clear Clear Cloudy Comment Urinary catheter in place. Stool Occult Blood Negative Negative Stool Size Moderate Small Stool Characteristics Liquid Soft Liquid Laboratory Results WBC 3.92 k/cumm (4.4-10.8) L D 10/31/18 06:29 RBC 3.00 m/cumm (4.00-5.20) L 10/31/18 06:29 Hgb 9.5 g/dL (12.0-15.5) L 10/31/18 06:29 Hct 29.5 % (36.0-46.0) L 10/31/18 06:29 MCV 98.3 fL (80-95) H 10/31/18 06:29 MCH 31.7 pg (27.0-33.0) 10/31/18 06:29 MCHC 32.2 g/dL (32.0-36.0) 10/31/18 06:29 RDW 14.4 % (11.7-14.6) 10/31/18 06:29 Plt Count 125 x1000/uL (130-400) L 10/31/18 06:29 MPV 10.0 fL (8.0-11.0) 10/31/18 06:29 Immature Gran % 1.0 10/31/18 06:29 Neutrophils % 86.5 10/31/18 06:29 Band Neutrophils % 36.0 % 10/30/18 06:10 Lymphocytes % 9.2 10/31/18 06:29 Atypical Lymphs % 2 10/29/18 19:40 Monocytes % 3.3 10/31/18 06:29 Eosinophils % 0.0 10/31/18 06:29 Basophils % 0.0 10/31/18 06:29 Absolute Neutrophils 3.39 k/cumm (1.2-6.7) 10/31/18 06:29 Absolute Lymphocytes 0.36 k/cumm (1.2-3.4) L 10/31/18 06:29 Absolute Monocytes 0.13 k/cumm (0.11-0.7) 10/31/18 06:29 Absolute Eosinophils 0.00 k/cumm (0.0-0.7) 10/31/18 06:29 Absolute Basophils 0.00 k/cumm (0.0-0.2) 10/31/18 06:29 Metamyelocytes 5.0 % 10/30/18 06:10 Differential Comment Agrees w/ instrument 10/31/18 06:29 RBC Morphology See below 10/30/18 06:10 Polychromasia Present 10/29/18 19:40 PT 11.1 sec (9.3-11.0) H 10/29/18 19:40 INR 1.1 (0.9-1.1) 10/29/18 19:40 APTT 36.0 sec (21.0-31.4) H 10/29/18 19:40 Sodium 147 mmol/L (136-145) H 10/31/18 06:29 Potassium 3.9 mmol/L (3.5-5.1) D 10/31/18 06:29 Chloride 116 mmol/L (98-107) H 10/31/18 06:29 Carbon Dioxide 21.2 mmol/L (21.0-32.0) 10/31/18 06:29 Anion Gap 9.8 mmol/L (3-11) 10/31/18 06:29 BUN 29 mg/dL (7-18) H D 10/31/18 06:29 Creatinine 0.89 mg/dL (0.55-1.02) 10/31/18 06:29 Estimated GFR/1.73 m2 >= 60.00 (mL/min/1.73m2) 10/31/18 06:29 Glucose 194 mg/dL (70-100) H 10/31/18 06:29 Lactate 1.6 mmol/l (0.6-1.4) H 10/30/18 14:35 Calcium 9.3 mg/dL (8.5-10.1) 10/31/18 06:29 Magnesium 1.8 mg/dL (1.8-2.4) 10/31/18 06:29 Total Bilirubin 0.5 mg/dL (0.2-1.0) 10/29/18 19:40 Conjugated Bilirubin 0.21 mg/dL (0.00-0.20) H 10/29/18 19:40 AST 27 U/L (15-37) 10/29/18 19:40 ALT 4 U/L (12-78) L 10/29/18 19:40 Alkaline Phosphatase 67 U/L (46-116) 10/29/18 19:40 Total Protein 7.2 g/dL (6.4-8.2) 10/29/18 19:40 Albumin 2.1 g/dL (3.4-5.0) L 10/29/18 19:40 Lipase 24 U/L (73-393) L 10/29/18 19:40 Urine Color Yellow (Yellow) 10/30/18 02:35 Urine Clarity Clear 10/30/18 02:35 Urine pH 7.0 (5-8) 10/30/18 02:35 Ur Specific [place] 1.010 (1.005-1.025) 10/30/18 02:35 Urine Protein 30 mg/dL (Negative) H 10/30/18 02:35 Urine Ketones Negative mg/dL (Negative) 10/30/18 02:35 Urine Blood Small (Negative) H 10/30/18 02:35 Urine Nitrite Positive (Negative) H 10/30/18 02:35 Urine Bilirubin Negative (Negative) 10/30/18 02:35 Urine Urobilinogen 0.2 EU/dL (Up TO 0.2) 10/30/18 02:35 Ur Leukocyte Esterase Small (Negative) H 10/30/18 02:35 Urine RBC 0-2 (0-2) 10/30/18 02:35 Urine WBC 5-10 HPF (0-5) 10/30/18 02:35 Ur Epithelial Cells Rare HPF (Negative) 10/30/18 02:35 Urine Crystals Negative HPF (Negative) 10/30/18 02:35 Urine Bacteria Few HPF (Negative) 10/30/18 02:35 Urine Casts Negative LPF (Negative) 10/30/18 02:35 Urine Mucus Negative (Negative) 10/30/18 02:35 Ur Culture Indicated? Yes 10/30/18 02:35 Urine Glucose Negative mg/dL (Negative) 10/30/18 02:35
--- NOTE | 2018-10-31 16:35 | PGE_ITS ---
Date of Service Date of service: 10/31/18 Time of Service: 16:32 Assessment and Plan (1) Septic shock: Current visit: No Status: Acute Due to HCAP as well as complicated UTI, POA. Improving with antibioics/IVF. Off pressors since 4 am. Blood cx x 2 show NGTD. Urine C&S is mixed. Continue empiric vancomycin/cefepime (D2). (2) HCAP (healthcare-associated pneumonia): Current visit: No Status: Acute As above. Not requiring O2. Passed swallow eval for pureed food/honey thickened liquids. Refusing, however, to follow speech therapist's recommendations. In light of this, aspiration events are likely to recur. I have consulted palliative care to discuss with the patient what her goals of care should be. (3) Complicated UTI (urinary tract infection): Current visit: No Status: Acute with a presence of a staghorn calculus. Continue empiric vanco/cefepime. Evidently, urology is NOT available at [facility] until 11/04/18. I have discussed the case with urology at [facility] - Dr Foster feels the patient would benefit from a stent and needs to be transferred to [facility] urgently. The transfer is planned for tomorrow, with Dr Perez of hospital medicine at [facility] being the attending for the patient. (4) Staghorn calculus: Current visit: No Status: Acute As above (5) Autoimmune disorder: Current visit: No Status: Acute Continue mycophenilate (6) Dysphagia as late effect of cerebrovascular accident (CVA): Current visit: No Status: Chronic Read discussion above. Patient is not compliant with the recommendations of speech therapist. (7) Ambulatory dysfunction: Current visit: No Status: Chronic PT/OT (8) DVT prophylaxis: Current visit: No Status: Acute Lovenox (9) DALTON (acute kidney injury): Current visit: No Status: Acute Improving. Continue IVF and monitor Cr. (10) Discharge planning issues: Current visit: No Status: Acute Anticipated to return to SNF on discharge palliative care consulted to help clarify code status/goals of care. Subjective Interval history since last seen: Ginger complains of R-sided abdominal and back pain. She denies dizziness, chest pain, shortness of breath, nausea, vomiting. She is off of pressors as of 4 am this morning. She is in agreement with transfer for intervention for her kidney stone. She is refusing to follow speech therapy recommendations. Exam Narrative Exam Narrative: General: Middle aged female, awake, answering questions and following commands, pale, A&Ox2, able to clearly explain to me why she would need to go to a different hospital HEENT: EOMI, MMM Heart: RRR Lungs: Diminished breath sounds B, coarse. GI: abdomen is soft, nontender, nondistended Extremities: no e/c/c BLE's Objective Objective Clinical Data: Abnormal lab results 10/31/18 10/31/18 Range/Units 06:29 06:29 WBC 3.92 L D (4.4-10.8) k/cumm RBC 3.00 L (4.00-5.20) m/cumm Hgb 9.5 L (12.0-15.5) g/dL Hct 29.5 L (36.0-46.0) % MCV 98.3 H (80-95) fL Plt Count 125 L (130-400) x1000/uL Absolute Lymphocytes 0.36 L (1.2-3.4) k/cumm Sodium 147 H (136-145) mmol/L Chloride 116 H (98-107) mmol/L BUN 29 H D (7-18) mg/dL Glucose 194 H (70-100) mg/dL Vital Signs Temperature 36.4 C L 10/31/18 12:30 Temperature Source Temporal Artery Scan 10/31/18 12:30 Pulse 83 10/31/18 12:00 Pulse 84 10/31/18 12:15 Respiratory Rate 18 10/31/18 12:15 Respiratory Effort 10/31/18 12:30 Respiratory Depth Normal 10/31/18 12:30 Respiratory Pattern Normal 10/31/18 12:30 Blood Pressure 119/74 10/31/18 12:00 Blood Pressure Mean 83 10/31/18 12:00 Blood Pressure Position Sitting 10/29/18 19:21 Pulse Oximetry 96 10/31/18 12:15 Oxygen Delivery Method Room Air 10/31/18 08:55 Oxygen Flow Rate 0 10/31/18 08:55 Pain Level 2 10/31/18 12:30 Intake & Output 10/30/18 10/31/18 10/31/18 23:59 11:59 23:59 Intake Total 1663.229 / 7766.904 9082.125 / 1466.125 30 / 1466.125 Output Total 300 / 1400 450 / 450 Balance 1363.229 / 892.032 2688.125 / 1016.125 -420 / 1016.125 Weight 73 kg Intake: IV 1613.229 / 1362.532 1278.125 / 1206.125 30 / 1206.125 Oral 50 / 75 260 / 260 Output: Urine 300 / 1400 450 / 450 Other: Urine Color Yellow Yellow Yellow Urine Appearance Clear Clear Cloudy Comment Urinary catheter in place. Stool Occult Blood Negative Negative Stool Size Moderate Small Stool Characteristics Liquid Soft Liquid Laboratory Results WBC 3.92 k/cumm (4.4-10.8) L D 10/31/18 06:29 RBC 3.00 m/cumm (4.00-5.20) L 10/31/18 06:29 Hgb 9.5 g/dL (12.0-15.5) L 10/31/18 06:29 Hct 29.5 % (36.0-46.0) L 10/31/18 06:29 MCV 98.3 fL (80-95) H 10/31/18 06:29 MCH 31.7 pg (27.0-33.0) 10/31/18 06:29 MCHC 32.2 g/dL (32.0-36.0) 10/31/18 06:29 RDW 14.4 % (11.7-14.6) 10/31/18 06:29 Plt Count 125 x1000/uL (130-400) L 10/31/18 06:29 MPV 10.0 fL (8.0-11.0) 10/31/18 06:29 Immature Gran % 1.0 10/31/18 06:29 Neutrophils % 86.5 10/31/18 06:29 Band Neutrophils % 36.0 % 10/30/18 06:10 Lymphocytes % 9.2 10/31/18 06:29 Atypical Lymphs % 2 10/29/18 19:40 Monocytes % 3.3 10/31/18 06:29 Eosinophils % 0.0 10/31/18 06:29 Basophils % 0.0 10/31/18 06:29 Absolute Neutrophils 3.39 k/cumm (1.2-6.7) 10/31/18 06:29 Absolute Lymphocytes 0.36 k/cumm (1.2-3.4) L 10/31/18 06:29 Absolute Monocytes 0.13 k/cumm (0.11-0.7) 10/31/18 06:29 Absolute Eosinophils 0.00 k/cumm (0.0-0.7) 10/31/18 06:29 Absolute Basophils 0.00 k/cumm (0.0-0.2) 10/31/18 06:29 Metamyelocytes 5.0 % 10/30/18 06:10 Differential Comment Agrees w/ instrument 10/31/18 06:29 RBC Morphology See below 10/30/18 06:10 Polychromasia Present 10/29/18 19:40 PT 11.1 sec (9.3-11.0) H 10/29/18 19:40 INR 1.1 (0.9-1.1) 10/29/18 19:40 APTT 36.0 sec (21.0-31.4) H 10/29/18 19:40 Sodium 147 mmol/L (136-145) H 10/31/18 06:29 Potassium 3.9 mmol/L (3.5-5.1) D 10/31/18 06:29 Chloride 116 mmol/L (98-107) H 10/31/18 06:29 Carbon Dioxide 21.2 mmol/L (21.0-32.0) 10/31/18 06:29 Anion Gap 9.8 mmol/L (3-11) 10/31/18 06:29 BUN 29 mg/dL (7-18) H D 10/31/18 06:29 Creatinine 0.89 mg/dL (0.55-1.02) 10/31/18 06:29 Estimated GFR/1.73 m2 >= 60.00 (mL/min/1.73m2) 10/31/18 06:29 Glucose 194 mg/dL (70-100) H 10/31/18 06:29 Lactate 1.6 mmol/l (0.6-1.4) H 10/30/18 14:35 Calcium 9.3 mg/dL (8.5-10.1) 10/31/18 06:29 Magnesium 1.8 mg/dL (1.8-2.4) 10/31/18 06:29 Total Bilirubin 0.5 mg/dL (0.2-1.0) 10/29/18 19:40 Conjugated Bilirubin 0.21 mg/dL (0.00-0.20) H 10/29/18 19:40 AST 27 U/L (15-37) 10/29/18 19:40 ALT 4 U/L (12-78) L 10/29/18 19:40 Alkaline Phosphatase 67 U/L (46-116) 10/29/18 19:40 Total Protein 7.2 g/dL (6.4-8.2) 10/29/18 19:40 Albumin 2.1 g/dL (3.4-5.0) L 10/29/18 19:40 Lipase 24 U/L (73-393) L 10/29/18 19:40 Urine Color Yellow (Yellow) 10/30/18 02:35 Urine Clarity Clear 10/30/18 02:35 Urine pH 7.0 (5-8) 10/30/18 02:35 Ur Specific [place] 1.010 (1.005-1.025) 10/30/18 02:35 Urine Protein 30 mg/dL (Negative) H 10/30/18 02:35 Urine Ketones Negative mg/dL (Negative) 10/30/18 02:35 Urine Blood Small (Negative) H 10/30/18 02:35 Urine Nitrite Positive (Negative) H 10/30/18 02:35 Urine Bilirubin Negative (Negative) 10/30/18 02:35 Urine Urobilinogen 0.2 EU/dL (Up TO 0.2) 10/30/18 02:35 Ur Leukocyte Esterase Small (Negative) H 10/30/18 02:35 Urine RBC 0-2 (0-2) 10/30/18 02:35 Urine WBC 5-10 HPF (0-5) 10/30/18 02:35 Ur Epithelial Cells Rare HPF (Negative) 10/30/18 02:35 Urine Crystals Negative HPF (Negative) 10/30/18 02:35 Urine Bacteria Few HPF (Negative) 10/30/18 02:35 Urine Casts Negative LPF (Negative) 10/30/18 02:35 Urine Mucus Negative (Negative) 10/30/18 02:35 Ur Culture Indicated? Yes 10/30/18 02:35 Urine Glucose Negative mg/dL (Negative) 10/30/18 02:35
[2018-10-31] MEDS: CEFEPIME 2 GM in Normal Saline 100 ML IVPB (20:14)
[2018-10-31] MEDS: Melatonin 3 MG TAB PO (20:16)
[2018-10-31] MEDS: traZODone 50 MG TAB PO (22:12)
[2018-10-31 23:55] LABS: Vancomycin, Trough 16.1 ug/mL (10.0-20.0)
[2018-11-01] VITALS (30 sets, daily range): BP systolic 93–129; BP diastolic 53–70; PULSE 75–98; RESP 12–24; TEMP 36.7–37.8; O2SAT 87–98
[2018-11-01] MEDS: Normal Saline Flush 10 ML SYR IVP ×3 (00:06→17:33)
[2018-11-01] MEDS: methylPREDNISolone SUCC 40 MG VIAL 20 MG IVP ×2 (04:02→17:17)
[2018-11-01] MEDS: SODIUM CHLORIDE 0.45% 1,000 ML 75 ML IV (04:09)
[2018-11-01] MEDS: Levothyroxine 100 MCG TAB PO (05:55)
[2018-11-01 07:18] LABS: Abs Immature Grans 0.27 k/cumm (0.0-0.09); HCT 31.2 % (36.0-46.0); HGB 9.9 g/dL (12.0-15.5); Mean Corp. HGB Concentration 31.7 g/dL (32.0-36.0); Mean Corpuscular Hemoglobin 31.7 pg (27.0-33.0); Mean Platelet Volume 10.1 fL (8.0-11.0); RBC 3.12 m/cumm (4.00-5.20); White Blood Cell Count 7.47 k/cumm (4.4-10.8)
[2018-11-01 07:23] LABS: Anion Gap 8.5 mmol/L (3-11); BUN 28 mg/dL (7-18); CO2 23.5 mmol/L (21.0-32.0); CREATININE 0.87 mg/dL (0.55-1.02); Calcium 9.3 mg/dL (8.5-10.1); Chloride 114 mmol/L (98-107); Glucose 186 mg/dL (70-100); Magnesium 1.5 mg/dL (1.8-2.4); Potassium 3.7 mmol/L (3.5-5.1); Sodium 146 mmol/L (136-145)
[2018-11-01 07:55] LABS: Absolute Lymphocyte Count 0.75 k/cumm (1.2-3.4); Absolute Monocyte Count 0.22 k/cumm (0.11-0.7); Absolute Neutrophil Count 6.27 k/cumm (1.2-6.7); Platelet Count 115 x1000/uL (130-400)
[2018-11-01 07:56] LABS: Anisocytosis 1+; Diff Comment Manual Differential
--- NOTE | 2018-11-01 08:48 | DI.RAD_ITS ---
SYMPTOM/DIAGNOSIS: F/U PNEUMONIA PORTABLE AP CHEST at 0755 hours: The heart is not enlarged. There are patchy areas of consolidation involving both right and left lungs, predominantly in the lower lung yeung. Pulmonary apices appear clear. No gross pleural effusion is seen on this frontal film. CONCLUSION: Findings consistent with bilateral pulmonary consolidation, this was noted on chest CT of 10/29/18. No recent chest radiograph available for comparison since 12/08/17 at which time the lungs were predominantly clear.
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
[2018-11-01] MEDS: Aspirin 81 MG CHEW PO (09:40)
[2018-11-01] MEDS: Multivitamin w/Minerals TAB 1 TAB PO (09:41)
[2018-11-01] MEDS: lamoTRIgine 25 MG TAB 50 MG PO (09:41)
[2018-11-01] MEDS: buPROPion-XL 150 MG TABCR 450 MG PO (09:41)
[2018-11-01] MEDS: guaiFENesin 600 MG TABCR PO (09:41)
[2018-11-01] MEDS: Carbidopa 25/Levodopa 100 TAB PO ×3 (09:41→17:32)
[2018-11-01] MEDS: Insulin Aspart 300 UNITS/3 ML PEN SC ×2 (09:42→12:35)
[2018-11-01] MEDS: MAGNESIUM SULFATE 4 GM/100 ML BAG IVPB (11:28)
[2018-11-01 11:40] LABS: Vancomycin, Trough 16.3 ug/mL (10.0-20.0)
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
[2018-11-01] MEDS: Enoxaparin 40 MG/0.4 ML SYR SC (14:21)
[2018-11-01] MEDS: Pantoprazole 40 MG VIAL IVP (14:22)
--- NOTE | 2018-11-01 17:11 | W.PM.DS.N ---
Date of service: 11/01/18 Time of Service: 17:11 DS: Diagnosis Discharge Diagnosis (1) Septic shock: Status: Acute (2) HCAP (healthcare-associated pneumonia): Status: Acute (3) Complicated UTI (urinary tract infection): Status: Acute (4) Staghorn calculus: Status: Acute (5) Autoimmune disorder: Status: Acute (6) Dysphagia as late effect of cerebrovascular accident (CVA): Status: Chronic (7) Ambulatory dysfunction: Status: Chronic (8) DALTON (acute kidney injury): Status: Acute Discharge Plan Disposition Patient Disposition: [facility] ([facility]) Condition: Critical Discharge Details Reason For Visit: SEPSIS,PNEUMONIA Admit Date/Time: 10/29/18 21:26 Admit Provider: Mehdi Garza Attending Provider: Mehdi Garza Primary Care Provider: Pio Odonnell Hospital Course Hospital Course: Mr Barrera is a 58 year old female with PMHx of prior CVA with residual dysphagia, autoimmune d/o NOS, dysarthria, aphasia, DM2, hypothyroidism, biopolar d/o who was admitted to [facility] on 10/29/18 in septic shock due to HCAP (vs aspiration pneumonia) and UTI. At the time, she also had an DALTON. She required >24 hours of vasopressors in addition to aggressive IV hydration and IV vancomycin, cefepime with good clinical response. She has been off of vasopressors since 4 am on 10/31/18. She is on stress dose steroids (solumedrol 20 mg IV BID) as she is normally steroid dependent. Her blood cultures have not had any growth to date. Her urine c&S is mixed, growing gram positive irving. The patient does have significant dysphagia - she was evaluated by ST and is recommended a pureed diet with honey thickened fluids. She is not very compliant with this. She was also seen by palliative care and remains full code. Her CT of the chest/abdomen/pelvis also revealed a 15 mm stone (Staghorn) in the R renal pelvis without obstruction. Urology consultation/intervention would not be possible at [facility] until 11/04/18. [facility] did not have any beds for transfer. [facility] accepted the patient for urology consultation/likely intervention to the hospital service (Dr Perez being the accepting attending; Dr Foster - urology aerodynamic consultant). Patient remains on IV fluids and antibiotics. She is hemodynamically stable for transfer. She is now in medical surgical status. We appreciate the assistance of [facility] and wish the patient well! Home Meds and New Rx's Prescriptions: New ipratropium-albuterol 0.5 mg-3 mg(2.5 mg base)/3 mL Solution For Nebulization 3 ml UPD Q6H PRN PRNQty: 0 RF: 0 albuterol sulfate 2.5 mg /3 mL (0.083 %) Solution For Nebulization 2.5 mg UPD Q2H PRN PRNQty: 0 RF: 0 pantoprazole [Protonix] 40 mg Recon Soln 40 mg IVP Q24H Qty: 0 RF: 0 enoxaparin [Lovenox] 40 mg/0.4 mL Syringe 40 mg subcut Q24H Qty: 0 RF: 0 Novolog Flexpen U-100 Insulin 100 unit/mL Insulin Pen subcut AC & HS Qty: 0 RF: 0 ondansetron HCl (PF) 4 mg/2 mL Solution 4 mg IVP Q6H PRN PRNQty: 0 RF: 0 Solu-Medrol (PF) 40 mg/mL Recon Soln 20 mg IVP Q12H Qty: 0 RF: 0 guaifenesin [Mucinex] 600 mg Tablet Extended Release 12hr 600 mg PO BID Qty: 0 RF: 0 Continued valproic acid (as sodium salt) 250 mg/5 mL Solution 10 ml PO BID RF: 0 mycophenolate mofetil 200 mg/mL Suspension For Reconstitution 0.5 ml PO DAILY RF: 0 bupropion HCl 150 MG tablet extended release 12 hr 150 mg PO DAILY RF: 0 trazodone 50 MG tablet 50 mg PO HS RF: 0 simethicone 180 MG capsule 180 mg PO TID PRNRF: 0 melatonin 3 MG tablet 3 mg PO HS PRNRF: 0 levothyroxine 100 MCG tablet 100 mcg PO DAILY AM RF: 0 simvastatin 20 MG tablet 20 mg PO HS RF: 0 carbidopa-levodopa 1 EACH tablet 1 ea PO QID RF: 0 bupropion HCl 150 MG tablet extended release 24 hr 300 mg PO QAM RF: 0 cholecalciferol (vitamin D3) 1,000 UNITS tablet 2,000 units PO DAILY RF: 0 lamotrigine 50 MG tablet extended release 24hr 50 mg PO BID RF: 0 Multivitamin/Iron/Folic Acid [Centrum Adults Tablet] 1 EACH Tablet 1 tab PO DAILY RF: 0 aspirin 81 MG tablet,chewable 81 mg PO DAILY RF: 0 Discontinued prednisone 10 mg Tablet 80 mg PO DAILY RF: 0 albuterol sulfate 2.5 mg /3 mL (0.083 %) Solution For Nebulization 1 neb Inhalation TID RF: 0 prednisone 2.5 MG tablet 2.5 mg PO DAILY RF: 0 Discharge Orders Discharge Orders: Discharge Order (Routine); Ordered 11/01/18 Ordered By: Yojana Osorio Exam Narrative Exam Narrative: General: Middle aged female, awake, answering questions and following commands, pale, A&Ox2, able to clearly explain to me why she would need to go to a different hospital HEENT: EOMI, MMM Heart: RRR Lungs: Diminished breath sounds B, coarse. GI: abdomen is soft, nontender, nondistended Extremities: no e/c/c BLE's DS: Data Vitals/I&O Vitals and I&O: Vital Signs Temperature 37.8 C H 11/01/18 12:18 Temperature Source Temporal Artery Scan 11/01/18 12:18 Pulse 77 11/01/18 15:00 Pulse 77 11/01/18 15:00 Respiratory Rate 17 11/01/18 15:00 Respiratory Effort 11/01/18 09:26 Respiratory Depth Normal 11/01/18 09:26 Respiratory Pattern Normal 11/01/18 09:26 Blood Pressure 120/62 11/01/18 12:18 Blood Pressure Mean 76 11/01/18 12:18 Blood Pressure Position Supine 11/01/18 09:26 Pulse Oximetry 92 L 11/01/18 12:18 Oxygen Delivery Method Room Air 11/01/18 12:18 Oxygen Flow Rate 0 11/01/18 12:18 Pain Level 0 11/01/18 12:18 Comment 11/01/18 12:18 Intake & Output 10/31/18 11/01/18 11/01/18 23:59 11:59 23:59 Intake Total 1040 / 2476.125 1697 / 2217 520 / 2217 Output Total 925 / 925 400 / 975 575 / 975 Balance 115 / 2381.723 3604 / 1242 -55 / 1242 Weight 71.3 kg Intake: IV 320 / 2007.469 1345 / 1380 160 / 1380 Oral 720 / 980 477 / 837 360 / 837 Output: Urine 925 / 925 400 / 975 575 / 975 Other: Urine Color Yellow Yellow Yellow Urine Appearance Cloudy Cloudy Clear Comment lozada to gravity with dark yellow urine Lozada catheter leaking. Balloon taken down ( only 6 cc ) and replaced and 4 cc added. No leaking at this time. Note that earlier the pad under the pt was very wet prior to fixing the balloon. ? amt Stool Occult Blood Negative Negative Stool Size Large Smear Stool Characteristics Liquid Soft Brown Brown Completed studies during hospitalization [Text1]: CXR: Findings consistent with bilateral pulmonary consolidation, this was noted on chest CT of 10/29/18. No recent chest radiograph available for comparison since 12/08/17 at which time the lungs were predominantly clear. CT chest/abdomen/pelvis: 1. Bibasilar consolidation. 2. Large quantity of stool in the rectum with severe distension of the rectum. 3. 15 mm. stone in the right renal pelvis without evidence of obstruction. Labs on day of discharge: Labs from last 24 hours 11/01/18 11/01/18 11/01/18 11:18 06:30 06:30 WBC 7.47 D RBC 3.12 L Hgb 9.9 L Hct 31.2 L MCV 100.0 H MCH 31.7 MCHC 31.7 L RDW 15.0 H Plt Count 115 L MPV 10.1 Immature Gran % See Differential Neutrophils % 79.0 Band Neutrophils % 5.0 Lymphocytes % 10.0 Monocytes % 3.0 Eosinophils % 0.0 Basophils % 0.0 Absolute Neutrophils 6.27 Absolute Lymphocytes 0.75 L Absolute Monocytes 0.22 Absolute Eosinophils 0.00 Absolute Basophils 0.00 Myelocytes 3.0 Differential Comment Manual differential RBC Morphology See below Anisocytosis 1+ Sodium 146 H Potassium 3.7 Chloride 114 H Carbon Dioxide 23.5 Anion Gap 8.5 BUN 28 H Creatinine 0.87 Estimated GFR/1.73 m2 >= 60.00 Glucose 186 H Calcium 9.3 Magnesium 1.5 L Vancomycin Trough 16.3 10/31/18 23:20 WBC RBC Hgb Hct MCV MCH MCHC RDW Plt Count MPV Immature Gran % Neutrophils % Band Neutrophils % Lymphocytes % Monocytes % Eosinophils % Basophils % Absolute Neutrophils Absolute Lymphocytes Absolute Monocytes Absolute Eosinophils Absolute Basophils Myelocytes Differential Comment RBC Morphology Anisocytosis Sodium Potassium Chloride Carbon Dioxide Anion Gap BUN Creatinine Estimated GFR/1.73 m2 Glucose Calcium Magnesium Vancomycin Trough 16.1 Preliminary micro results at discharge 10/29/18 20:15 Blood Culture - Preliminary Blood NO GROWTH 48 HOURS 10/29/18 19:40 Blood Culture - Preliminary Blood NO GROWTH 48 HOURS PFSH Social History Smoking and Tabacco status: Unknown
--- NOTE | 2018-11-01 17:22 | DSE_ITS ---
Date of service: 11/01/18 Time of Service: 17:11 DS: Diagnosis Discharge Diagnosis (1) Septic shock: Status: Acute (2) HCAP (healthcare-associated pneumonia): Status: Acute (3) Complicated UTI (urinary tract infection): Status: Acute (4) Staghorn calculus: Status: Acute (5) Autoimmune disorder: Status: Acute (6) Dysphagia as late effect of cerebrovascular accident (CVA): Status: Chronic (7) Ambulatory dysfunction: Status: Chronic (8) DALTON (acute kidney injury): Status: Acute Discharge Plan Disposition Patient Disposition: [facility] ([facility]) Condition: Critical Discharge Details Reason For Visit: SEPSIS,PNEUMONIA Admit Date/Time: 10/29/18 21:26 Admit Provider: Mehdi Garza Attending Provider: Mehdi Garza Primary Care Provider: Pio Odonnell Hospital Course Hospital Course: Mr Barrera is a 58 year old female with PMHx of prior CVA with residual dysphagia, autoimmune d/o NOS, dysarthria, aphasia, DM2, hypothyroidism, biopolar d/o who was admitted to [facility] on 10/29/18 in septic shock due to HCAP (vs aspiration pneumonia) and UTI. At the time, she also had an DALTON. She required >24 hours of vasopressors in addition to aggressive IV hydration and IV vancomycin, cefepime with good clinical response. She has been off of vasopressors since 4 am on 10/31/18. She is on stress dose steroids (solumedrol 20 mg IV BID) as she is normally steroid dependent. Her blood cultures have not had any growth to date. Her urine c&S is mixed, growing gram positive irving. The patient does have significant dysphagia - she was evaluated by ST and is recommended a pureed diet with honey thickened fluids. She is not very compliant with this. She was also seen by palliative care and remains full code. Her CT of the chest/abdomen/pelvis also revealed a 15 mm stone (Staghorn) in the R renal pelvis without obstruction. Urology consultation/intervention would not be possible at [facility] until 11/04/18. [facility] did not have any beds for transfer. [facility] accepted the patient for urology consultation/likely intervention to the hospital service (Dr Perez being the accepting attending; Dr Foster - urology trousseau consultant). Patient remains on IV fluids and antibiotics. She is hemodynamically stable for transfer. She is now in medical surgical status. We appreciate the assistance of [facility] and wish the patient well! Home Meds and New Rx's Prescriptions: New ipratropium-albuterol 0.5 mg-3 mg(2.5 mg base)/3 mL Solution For Nebulization 3 ml UPD Q6H PRN PRNQty: 0 RF: 0 albuterol sulfate 2.5 mg /3 mL (0.083 %) Solution For Nebulization 2.5 mg UPD Q2H PRN PRNQty: 0 RF: 0 pantoprazole [Protonix] 40 mg Recon Soln 40 mg IVP Q24H Qty: 0 RF: 0 enoxaparin [Lovenox] 40 mg/0.4 mL Syringe 40 mg subcut Q24H Qty: 0 RF: 0 Novolog Flexpen U-100 Insulin 100 unit/mL Insulin Pen subcut AC & HS Qty: 0 RF: 0 ondansetron HCl (PF) 4 mg/2 mL Solution 4 mg IVP Q6H PRN PRNQty: 0 RF: 0 Solu-Medrol (PF) 40 mg/mL Recon Soln 20 mg IVP Q12H Qty: 0 RF: 0 guaifenesin [Mucinex] 600 mg Tablet Extended Release 12hr 600 mg PO BID Qty: 0 RF: 0 Continued valproic acid (as sodium salt) 250 mg/5 mL Solution 10 ml PO BID RF: 0 mycophenolate mofetil 200 mg/mL Suspension For Reconstitution 0.5 ml PO DAILY RF: 0 bupropion HCl 150 MG tablet extended release 12 hr 150 mg PO DAILY RF: 0 trazodone 50 MG tablet 50 mg PO HS RF: 0 simethicone 180 MG capsule 180 mg PO TID PRNRF: 0 melatonin 3 MG tablet 3 mg PO HS PRNRF: 0 levothyroxine 100 MCG tablet 100 mcg PO DAILY AM RF: 0 simvastatin 20 MG tablet 20 mg PO HS RF: 0 carbidopa-levodopa 1 EACH tablet 1 ea PO QID RF: 0 bupropion HCl 150 MG tablet extended release 24 hr 300 mg PO QAM RF: 0 cholecalciferol (vitamin D3) 1,000 UNITS tablet 2,000 units PO DAILY RF: 0 lamotrigine 50 MG tablet extended release 24hr 50 mg PO BID RF: 0 Multivitamin/Iron/Folic Acid [Centrum Adults Tablet] 1 EACH Tablet 1 tab PO DAILY RF: 0 aspirin 81 MG tablet,chewable 81 mg PO DAILY RF: 0 Discontinued prednisone 10 mg Tablet 80 mg PO DAILY RF: 0 albuterol sulfate 2.5 mg /3 mL (0.083 %) Solution For Nebulization 1 neb Inhalation TID RF: 0 prednisone 2.5 MG tablet 2.5 mg PO DAILY RF: 0 Discharge Orders Discharge Orders: Discharge Order (Routine); Ordered 11/01/18 Ordered By: Yojana Osorio Exam Narrative Exam Narrative: General: Middle aged female, awake, answering questions and following commands, pale, A&Ox2, able to clearly explain to me why she would need to go to a different hospital HEENT: EOMI, MMM Heart: RRR Lungs: Diminished breath sounds B, coarse. GI: abdomen is soft, nontender, nondistended Extremities: no e/c/c BLE's DS: Data Vitals/I&O Vitals and I&O: Vital Signs Temperature 37.8 C H 11/01/18 12:18 Temperature Source Temporal Artery Scan 11/01/18 12:18 Pulse 77 11/01/18 15:00 Pulse 77 11/01/18 15:00 Respiratory Rate 17 11/01/18 15:00 Respiratory Effort 11/01/18 09:26 Respiratory Depth Normal 11/01/18 09:26 Respiratory Pattern Normal 11/01/18 09:26 Blood Pressure 120/62 11/01/18 12:18 Blood Pressure Mean 76 11/01/18 12:18 Blood Pressure Position Supine 11/01/18 09:26 Pulse Oximetry 92 L 11/01/18 12:18 Oxygen Delivery Method Room Air 11/01/18 12:18 Oxygen Flow Rate 0 11/01/18 12:18 Pain Level 0 11/01/18 12:18 Comment 11/01/18 12:18 Intake & Output 10/31/18 11/01/18 11/01/18 23:59 11:59 23:59 Intake Total 1040 / 2476.125 1697 / 2217 520 / 2217 Output Total 925 / 925 400 / 975 575 / 975 Balance 115 / 7132.049 3480 / 1242 -55 / 1242 Weight 71.3 kg Intake: IV 320 / 5164.315 8450 / 1380 160 / 1380 Oral 720 / 980 477 / 837 360 / 837 Output: Urine 925 / 925 400 / 975 575 / 975 Other: Urine Color Yellow Yellow Yellow Urine Appearance Cloudy Cloudy Clear Comment lozada to gravity with dark yellow urine Lozada catheter leaking. Balloon taken down ( only 6 cc ) and replaced and 4 cc added. No leaking at this time. Note that earlier the pad under the pt was very wet prior to fixing the balloon. ? amt Stool Occult Blood Negative Negative Stool Size Large Smear Stool Characteristics Liquid Soft Brown Brown Completed studies during hospitalization [Text1]: CXR: Findings consistent with bilateral pulmonary consolidation, this was noted on chest CT of 10/29/18. No recent chest radiograph available for comparison since 12/08/17 at which time the lungs were predominantly clear. CT chest/abdomen/pelvis: 1. Bibasilar consolidation. 2. Large quantity of stool in the rectum with severe distension of the rectum. 3. 15 mm. stone in the right renal pelvis without evidence of obstruction. Labs on day of discharge: Labs from last 24 hours 11/01/18 11/01/18 11/01/18 11:18 06:30 06:30 WBC 7.47 D RBC 3.12 L Hgb 9.9 L Hct 31.2 L MCV 100.0 H MCH 31.7 MCHC 31.7 L RDW 15.0 H Plt Count 115 L MPV 10.1 Immature Gran % See Differential Neutrophils % 79.0 Band Neutrophils % 5.0 Lymphocytes % 10.0 Monocytes % 3.0 Eosinophils % 0.0 Basophils % 0.0 Absolute Neutrophils 6.27 Absolute Lymphocytes 0.75 L Absolute Monocytes 0.22 Absolute Eosinophils 0.00 Absolute Basophils 0.00 Myelocytes 3.0 Differential Comment Manual differential RBC Morphology See below Anisocytosis 1+ Sodium 146 H Potassium 3.7 Chloride 114 H Carbon Dioxide 23.5 Anion Gap 8.5 BUN 28 H Creatinine 0.87 Estimated GFR/1.73 m2 >= 60.00 Glucose 186 H Calcium 9.3 Magnesium 1.5 L Vancomycin Trough 16.3 10/31/18 23:20 WBC RBC Hgb Hct MCV MCH MCHC RDW Plt Count MPV Immature Gran % Neutrophils % Band Neutrophils % Lymphocytes % Monocytes % Eosinophils % Basophils % Absolute Neutrophils Absolute Lymphocytes Absolute Monocytes Absolute Eosinophils Absolute Basophils Myelocytes Differential Comment RBC Morphology Anisocytosis Sodium Potassium Chloride Carbon Dioxide Anion Gap BUN Creatinine Estimated GFR/1.73 m2 Glucose Calcium Magnesium Vancomycin Trough 16.1 Preliminary micro results at discharge 10/29/18 20:15 Blood Culture - Preliminary Blood NO GROWTH 48 HOURS 10/29/18 19:40 Blood Culture - Preliminary Blood NO GROWTH 48 HOURS PFSH Social History Smoking and Tabacco status: Unknown
[2018-11-01] MEDS: Normal Saline 1,000 ML 75 ML IV (19:25)
== END 2018-11-01 19:30 | DRG 193 ==
LOC: ER 21:54 → ICU 23:11
PROVIDERS: Internal Medicine; Admitting Provider General Practice; Emergency Provider Emergency Medicine; PCP Family Medicine; Visit Provider Internal Medicine
DX: J18.9 Pneumonia, unspecified organism (principal); R65.21 Severe sepsis with septic shock; N39.0 Urinary tract infection, site not specified; N17.9 Acute kidney failure, unspecified; Y95 Nosocomial condition; N20.0 Calculus of kidney; D89.89 Other specified disorders involving the immune mechanism, not elsewhere classified; I69.391 Dysphagia following cerebral infarction; R26.2 Difficulty in walking, not elsewhere classified; Z51.5 Encounter for palliative care; R13.12 Dysphagia, oropharyngeal phase
CPT/HCPCS: 36415; 36556; 36592; 74177; 80048; 80053; 80076; 83690; 85027; 87040; 87081; 87449; 92610; 94640; 96361; 96365; 96366; 96367; 96375; 97163; 97167; 99223; 99232; 99233; 99239; 99254; 99291; J1650; 71045; 71260; 80202; 81003; 81015; 83605; 83735; 85007; 85025; 85610; 85730; 87086; 93005; 93010; J1265; J2405; J2930; J3475; J3480; J3490; J7613; J7620

== ENCOUNTER 2018-12-02 12:01 | Outpatient (REF) | payer MEDICAID, SELFPAY ==
[2018-12-02 13:24] LABS: Abs Immature Grans 0.02 k/cumm (0.0-0.09); Absolute Basophil Count 0.01 k/cumm (0.0-0.2); Absolute Eosinophil Count 0.12 k/cumm (0.0-0.7); Absolute Lymphocyte Count 2.88 k/cumm (1.2-3.4); Absolute Monocyte Count 0.53 k/cumm (0.11-0.7); Basophils % 0.2; HCT 38.6 % (36.0-46.0); HGB 12.2 g/dL (12.0-15.5); Immature Grans % 0.3; Lymphocytes % 48.3; Mean Corp. HGB Concentration 31.6 g/dL (32.0-36.0); Mean Corpuscular Hemoglobin 32.1 pg (27.0-33.0); Mean Corpuscular Volume 101.6 fL (80-95); Mean Platelet Volume 9.7 fL (8.0-11.0); Monocytes % 8.9; Neutrophils % 40.3; Platelet Count 225 x1000/uL (130-400); RBC Distribution Width 14.2 % (11.7-14.6); White Blood Cell Count 5.96 k/cumm (4.4-10.8)
[2018-12-02 14:05] LABS: ALT 9 U/L (12-78); AST 20 U/L (15-37); Albumin 2.8 g/dL (3.4-5.0); Alkaline Phosphatase 75 U/L (46-116); Anion Gap 7.8 mmol/L (3-11); BUN 7 mg/dL (7-18); Bilirubin, Total 0.3 mg/dL (0.2-1.0); CO2 29.2 mmol/L (21.0-32.0); CREATININE 0.68 mg/dL (0.55-1.02); Calcium 9.1 mg/dL (8.5-10.1); Chloride 103 mmol/L (98-107); Glucose 128 mg/dL (70-100); Potassium 4.2 mmol/L (3.5-5.1); Sodium 140 mmol/L (136-145); TSH (W/Ref FT4) 2.75 uIU/mL (0.358-3.74); Total Protein 6.9 g/dL (6.4-8.2)
[2018-12-02 14:31] LABS: Hemoglobin A1C 5.9 % (4.5-6.2)
== END 2018-12-02 12:21 ==
LOC: LBN 12:01
PROVIDERS: PCP Family Medicine; Visit Provider Family Medicine
DX: I10 Essential (primary) hypertension (principal); R63.4 Abnormal weight loss; R53.83 Other fatigue
CPT/HCPCS: 80053; 83036; 84443; 85025

== ENCOUNTER 2019-01-03 11:44 | Outpatient (REF) | payer MEDICAID, SELFPAY ==
[2019-01-03 12:10] LABS: HCT 38.5 % (36.0-46.0); HGB 12.2 g/dL (12.0-15.5); Mean Corp. HGB Concentration 31.7 g/dL (32.0-36.0); Mean Corpuscular Hemoglobin 31.7 pg (27.0-33.0); Mean Platelet Volume 9.9 fL (8.0-11.0); Platelet Count 232 x1000/uL (130-400); RBC 3.85 m/cumm (4.00-5.20); RBC Distribution Width 13.4 % (11.7-14.6); White Blood Cell Count 5.06 k/cumm (4.4-10.8)
[2019-01-03 12:28] LABS: ALT 13 U/L (12-78); AST 39 U/L (15-37); Albumin 2.9 g/dL (3.4-5.0); Alkaline Phosphatase 78 U/L (46-116); Anion Gap 9.2 mmol/L (3-11); BUN 11 mg/dL (7-18); Bilirubin, Total 0.2 mg/dL (0.2-1.0); CO2 30.8 mmol/L (21.0-32.0); CREATININE 0.64 mg/dL (0.55-1.02); Calcium 9.6 mg/dL (8.5-10.1); Chloride 103 mmol/L (98-107); Glucose 169 mg/dL (70-100); Magnesium 1.6 mg/dL (1.8-2.4); Potassium 4.1 mmol/L (3.5-5.1); Sodium 143 mmol/L (136-145); TSH 4.37 uIU/mL (0.358-3.74); Total Protein 7.3 g/dL (6.4-8.2)
== END 2019-01-03 12:04 ==
LOC: LBN 11:44
PROVIDERS: Visit Provider Family Medicine
DX: E11.42 Type 2 diabetes mellitus with diabetic polyneuropathy (principal); N18.9 Chronic kidney disease, unspecified; R63.4 Abnormal weight loss; R60.9 Edema, unspecified; R79.89 Other specified abnormal findings of blood chemistry
CPT/HCPCS: 80053; 85027; 83735; 84439; 84443

== ENCOUNTER 2019-02-04 15:23 | Outpatient (REF) | payer MEDICAID, SELFPAY | END 2019-02-04 15:43 | LOC: LBN 15:23 | PROVIDERS: Visit Provider Family Medicine | DX: E03.9 Hypothyroidism, unspecified (principal); Z53.9 Procedure and treatment not carried out, unspecified reason | CPT/HCPCS: 84443 ==

== ENCOUNTER 2019-02-07 08:47 | Outpatient (REF) | payer MEDICAID, SELFPAY | END 2019-02-07 09:07 | LOC: LBN 08:47 | PROVIDERS: PCP Family Medicine; Visit Provider Family Medicine | DX: E03.9 Hypothyroidism, unspecified (principal) | CPT/HCPCS: 84443 ==

== ENCOUNTER 2019-03-10 15:07 | Outpatient (REF) | payer MEDICAID, SELFPAY ==
[2019-03-10 13:58] LABS: ALT 14 U/L (12-78); AST 22 U/L (15-37); Albumin 3.1 g/dL (3.4-5.0); Alkaline Phosphatase 79 U/L (46-116); Anion Gap 10.3 mmol/L (3-11); BUN 11 mg/dL (7-18); Bilirubin, Total 0.4 mg/dL (0.2-1.0); CO2 27.7 mmol/L (21.0-32.0); CREATININE 0.79 mg/dL (0.55-1.02); Chloride 101 mmol/L (98-107); Glucose 190 mg/dL (70-100); Potassium 4.6 mmol/L (3.5-5.1); Sodium 139 mmol/L (136-145); Total Protein 7.1 g/dL (6.4-8.2)
[2019-03-10 13:59] LABS: VALPROIC ACID 82.4 ug/mL (50-100)
== END 2019-03-10 15:27 ==
LOC: LBN 15:07
PROVIDERS: Visit Provider Family Medicine
DX: R56.9 Unspecified convulsions (principal); Z51.81 Encounter for therapeutic drug level monitoring; Z79.899 Other long term (current) drug therapy
CPT/HCPCS: 80053; 80164

== ENCOUNTER 2019-03-31 00:11 | Outpatient (CLI) | payer MEDICAID, SELFPAY ==
--- NOTE | 2019-03-31 09:07 | DI.MAMMO_ITS ---
SYMPTOM/DIAGNOSIS: 6 MO F/U ABNORMAL RIGHT BREAST MAMMO R92.8 Z09 MAMMOGRAM, RIGHT BREAST: 03/31 Mammograms were interpreted according to the usual protocol including computer analysis with CAD system, tomosynthesis and C view imaging. Today's mammogram was obtained to follow a questionable area of nodularity seen in the right breast on previous mammogram of 09/2018 which was a baseline examination. On today's examination the findings are unchanged from the last. No new mass or clumped microcalcification seen. CONCLUSION: No specific evidence of malignancy at this time. I suggested routine screening examinations resume with bilateral mammogram in 6 months. Category 3. Breast density category B. MQSA ASSESSMENT OF FINDINGS: Probably benign. Six month follow-up recommended. Category 3. Patient will receive a letter notifying them of these results. BI-RADS category B. There are scattered areas of fibroglandular density.
== END 2019-03-31 00:31 ==
PROVIDERS: Visit Provider Family Medicine
DX: R92.8 Other abnormal and inconclusive findings on diagnostic imaging of breast (principal); Z12.31 Encounter for screening mammogram for malignant neoplasm of breast; N60.81 Other benign mammary dysplasias of right breast
CPT/HCPCS: 77061; 77065; G0279

== ENCOUNTER 2019-07-17 09:30 | Outpatient (REF) | payer MEDICAID, SELFPAY ==
[2019-07-17 11:06] LABS: Abs Immature Grans 0.01 k/cumm (0.0-0.09); Absolute Basophil Count 0.01 k/cumm (0.0-0.2); Absolute Eosinophil Count 0.13 k/cumm (0.0-0.7); Absolute Lymphocyte Count 3.76 k/cumm (1.2-3.4); Basophils % 0.2; HCT 40.1 % (36.0-46.0); HGB 12.7 g/dL (12.0-15.5); Immature Grans % 0.2; Lymphocytes % 56.9; Mean Corp. HGB Concentration 31.7 g/dL (32.0-36.0); Mean Corpuscular Hemoglobin 31.4 pg (27.0-33.0); Mean Corpuscular Volume 99.3 fL (80-95); Mean Platelet Volume 9.4 fL (8.0-11.0); Monocytes % 6.1; Neutrophils % 34.6; Platelet Count 257 x1000/uL (130-400); RBC 4.04 m/cumm (4.00-5.20); RBC Distribution Width 13.1 % (11.7-14.6); White Blood Cell Count 6.61 k/cumm (4.4-10.8)
[2019-07-17 12:36] LABS: ALT 22 U/L (14-59); AST 19 U/L (15-37); Albumin 3.2 g/dL (3.4-5.0); Alkaline Phosphatase 60 U/L (46-116); Anion Gap 9.3 mmol/L (3-11); BUN 17 mg/dL (7-18); Bilirubin, Total 0.3 mg/dL (0.2-1.0); CO2 28.7 mmol/L (21.0-32.0); CREATININE 0.76 mg/dL (0.55-1.02); Calcium 9.4 mg/dL (8.5-10.1); Calculated LDL 119 mg/dL; Chloride 104 mmol/L (98-107); Cholesterol 208 mg/dL (50-200); Glucose 112 mg/dL (70-100); HDL Cholesterol 54 mg/dL (40-60); Magnesium 1.8 mg/dL (1.8-2.4); Potassium 4.4 mmol/L (3.5-5.1); Sodium 142 mmol/L (136-145); Total Protein 6.9 g/dL (6.4-8.2); Triglyceride 179 mg/dL (30-150)
[2019-07-17 14:48] LABS: Hemoglobin A1C 6.5 % (4.5-6.2)
== END 2019-07-17 09:50 ==
LOC: LBN 09:30
PROVIDERS: PCP Family Medicine; Visit Provider Family Medicine
DX: E11.9 Type 2 diabetes mellitus without complications (principal); I10 Essential (primary) hypertension; R65.10 Systemic inflammatory response syndrome (SIRS) of non-infectious origin without acute organ dysfunction; G96.8 Other specified disorders of central nervous system
CPT/HCPCS: 80053; 80061; 83036; 83735; 85025

== ENCOUNTER 2019-08-25 10:23 | Outpatient (REF) | payer MEDICAID, SELFPAY ==
[2019-08-25 10:59] LABS: Magnesium 2.1 mg/dL (1.8-2.4)
== END 2019-08-25 10:43 ==
LOC: LBN 10:23
PROVIDERS: PCP Family Medicine; Visit Provider Nurse Practitioner Gerontology
DX: R25.2 Cramp and spasm (principal)
CPT/HCPCS: 83735

== ENCOUNTER 2019-09-03 07:11 | Outpatient (REF) | payer MEDICAID, SELFPAY ==
[2019-09-03 07:45] LABS: Magnesium 1.8 mg/dL (1.8-2.4)
== END 2019-09-03 07:31 ==
LOC: LBN 07:11
PROVIDERS: PCP Family Medicine; Visit Provider Family Medicine
DX: R25.2 Cramp and spasm (principal)
CPT/HCPCS: 83735

== ENCOUNTER 2019-10-14 13:29 | Outpatient (REF) | payer MEDICAID, SELFPAY ==
[2019-10-14 15:23] LABS: ALT 22 U/L (14-59); AST 23 U/L (15-37); Albumin 3.5 g/dL (3.4-5.0); Alkaline Phosphatase 61 U/L (46-116); BUN 9 mg/dL (7-18); Bilirubin, Total 0.3 mg/dL (0.2-1.0); CREATININE 0.74 mg/dL (0.55-1.02); Calcium 9.4 mg/dL (8.5-10.1); Chloride 104 mmol/L (98-107); Glucose 108 mg/dL (74-106); Magnesium 2.3 mg/dL (1.8-2.4); Potassium 4.1 mmol/L (3.5-5.1); Sodium 144 mmol/L (136-145); Total Protein 7.1 g/dL (6.4-8.2)
== END 2019-10-14 13:49 ==
LOC: LBN 13:29
PROVIDERS: PCP Family Medicine; Visit Provider Family Medicine
DX: I10 Essential (primary) hypertension (principal); R25.2 Cramp and spasm; M79.603 Pain in arm, unspecified; M79.606 Pain in leg, unspecified
CPT/HCPCS: 80053; 83735

== ENCOUNTER 2019-11-13 09:08 | Outpatient (REF) | payer MEDICAID, SELFPAY ==
[2019-11-13 09:40] LABS: Anion Gap 9.1 mmol/L (3-11); BUN 7 mg/dL (7-18); CO2 30.9 mmol/L (21.0-32.0); CREATININE 0.76 mg/dL (0.55-1.02); Calcium 9.1 mg/dL (8.5-10.1); Chloride 104 mmol/L (98-107); Glucose 192 mg/dL (74-106); Magnesium 1.7 mg/dL (1.8-2.4); Potassium 3.9 mmol/L (3.5-5.1); Sodium 144 mmol/L (136-145)
== END 2019-11-13 09:28 ==
LOC: LBN 09:08
PROVIDERS: PCP Family Medicine; Visit Provider Nurse Practitioner Gerontology
DX: E87.8 Other disorders of electrolyte and fluid balance, not elsewhere classified (principal); F31.9 Bipolar disorder, unspecified
CPT/HCPCS: 80048; 83735

== ENCOUNTER 2019-11-21 08:36 | Outpatient (REF) | payer MEDICAID, SELFPAY ==
[2019-11-21 10:07] LABS: Magnesium 1.7 mg/dL (1.8-2.4)
== END 2019-11-21 08:56 ==
LOC: LBN 08:36
PROVIDERS: PCP Family Medicine; Visit Provider Family Medicine
DX: M79.603 Pain in arm, unspecified (principal); M79.606 Pain in leg, unspecified
CPT/HCPCS: 83735

== ENCOUNTER 2019-11-25 12:04 | Outpatient (REF) | payer MEDICAID, SELFPAY ==
[2019-11-25 14:46] LABS: Folate 13.1 ng/mL (8.6-20.0); TSH (W/Ref FT4) 1.78 uIU/mL (0.36-3.74); Vitamin B12 713 pg/mL (193-986)
== END 2019-11-25 12:24 ==
LOC: LBN 12:04
PROVIDERS: PCP Family Medicine; Visit Provider Family Medicine
DX: E03.9 Hypothyroidism, unspecified (principal); E11.9 Type 2 diabetes mellitus without complications
CPT/HCPCS: 82607; 82746; 84443

== ENCOUNTER 2019-11-27 10:18 | Outpatient (REF) | payer MEDICAID, SELFPAY ==
[2019-11-27 12:20] LABS: Bilirubin Negative (Negative); Blood Trace-intact (Negative); Clarity Sl Cloudy (Clear); Glucose 500 mg/dL (Negative); Ketones Negative (Negative); Leukocyte Esterase Large (Negative); Nitrite Negative (Negative); Specific Gravity 1.015 (1.005-1.025); Urobilinogen 0.2 EU/dL (Up TO 0.2)
[2019-11-27 12:34] LABS: WBC >50 HPF (0-5)
[2019-11-27 12:35] LABS: Bacteria Many HPF (Negative); C & S Indicated? Yes
== END 2019-11-27 10:38 ==
LOC: LBN 10:18
PROVIDERS: PCP Family Medicine; Visit Provider Family Medicine
DX: N39.0 Urinary tract infection, site not specified (principal); M54.9 Dorsalgia, unspecified; R10.817 Generalized abdominal tenderness
CPT/HCPCS: 81003; 81015; 87086

== ENCOUNTER 2019-12-03 10:37 | Outpatient (REF) | payer MEDICAID, SELFPAY ==
[2019-12-03 11:34] LABS: Bilirubin Negative (Negative); Blood Trace-lysed (Negative); Clarity Sl Cloudy (Clear); Glucose 250 mg/dL (Negative); Ketones Negative (Negative); Leukocyte Esterase Moderate (Negative); Nitrite Negative (Negative); Urobilinogen 0.2 EU/dL (Up TO 0.2); pH 6.5 (5-8)
[2019-12-03 11:42] LABS: Bacteria Few HPF (Negative); C & S Indicated? Yes; Casts Negative LPF (Negative); Crystals Negative HPF (Negative); Epithelial Cells Negative HPF (Negative); Mucus Negative (Negative); WBC >50 HPF (0-5)
== END 2019-12-03 10:57 ==
LOC: LBN 10:37
PROVIDERS: PCP Family Medicine; Visit Provider Family Medicine
DX: N39.0 Urinary tract infection, site not specified (principal)
CPT/HCPCS: 87077; 81003; 81015; 87086; 87186

== ENCOUNTER 2020-01-15 15:32 | Outpatient (REF) | payer MEDICAID, SELFPAY ==
[2020-01-15 15:54] LABS: Abs Immature Grans 0.02 k/cumm (0.0-0.09); Absolute Basophil Count 0.01 k/cumm (0.0-0.2); Absolute Eosinophil Count 0.05 k/cumm (0.0-0.7); Absolute Lymphocyte Count 2.23 k/cumm (1.2-3.4); Absolute Monocyte Count 0.44 k/cumm (0.11-0.7); Absolute Neutrophil Count 2.13 k/cumm (1.2-6.7); Basophils % 0.2; HCT 42.5 % (36.0-46.0); HGB 13.8 g/dL (12.0-15.5); Immature Grans % 0.4 %; Lymphocytes % 45.7; Mean Corp. HGB Concentration 32.5 g/dL (32.0-36.0); Mean Corpuscular Hemoglobin 31.6 pg (27.0-33.0); Mean Corpuscular Volume 97.3 fL (80-95); Mean Platelet Volume 9.8 fL (8.0-11.0); Neutrophils % 43.7; Platelet Count 214 x1000/uL (130-400); RBC 4.37 m/cumm (4.00-5.20); RBC Distribution Width 13.5 % (11.7-14.6); White Blood Cell Count 4.88 k/cumm (4.4-10.8)
== END 2020-01-15 15:52 ==
LOC: NCHCN 15:32
PROVIDERS: PCP Family Medicine; Visit Provider Family Medicine
DX: E11.9 Type 2 diabetes mellitus without complications (principal)
CPT/HCPCS: 83036; 85025

== ENCOUNTER 2020-03-03 13:59 | Outpatient (REF) | payer MEDICAID, SELFPAY ==
[2020-03-03 15:54] LABS: Hemoglobin A1C 6.1 % (3.8-5.6)
[2020-03-03 15:56] LABS: VALPROIC ACID 58.7 ug/mL (50-100)
[2020-03-04 09:05] LABS: Abs Immature Grans 0.04 k/cumm (0.0-0.09); Absolute Basophil Count 0.01 k/cumm (0.0-0.2); Absolute Eosinophil Count 0.15 k/cumm (0.0-0.7); Absolute Lymphocyte Count 3.36 k/cumm (1.2-3.4); Basophils % 0.1; Eosinophils % 1.3; HCT 38.3 % (36.0-46.0); HGB 12.3 g/dL (12.0-15.5); Immature Grans % 0.4 %; Lymphocytes % 29.6; Mean Corp. HGB Concentration 32.1 g/dL (32.0-36.0); Mean Corpuscular Hemoglobin 31.6 pg (27.0-33.0); Mean Corpuscular Volume 98.5 fL (80-95); Monocytes % 8.5; Neutrophils % 60.1; Platelet Count 182 x1000/uL (130-400); RBC 3.89 m/cumm (4.00-5.20); RBC Distribution Width 14.9 % (11.7-14.6); White Blood Cell Count 11.36 k/cumm (4.4-10.8)
[2020-03-04 09:06] LABS: Absolute Monocyte Count 0.97 k/cumm (0.11-0.7); Absolute Neutrophil Count 6.83 k/cumm (1.2-6.7)
== END 2020-03-03 14:19 ==
LOC: LBN 13:59
PROVIDERS: PCP Family Medicine; Visit Provider Family Medicine
DX: E11.9 Type 2 diabetes mellitus without complications (principal); R56.9 Unspecified convulsions; Z51.81 Encounter for therapeutic drug level monitoring; R53.83 Other fatigue; R68.89 Other general symptoms and signs
CPT/HCPCS: 80164; 83036; 85025

== ENCOUNTER 2020-03-26 12:05 | Inpatient (IN) | payer MEDICAID, SELFPAY ==
[2020-03-26] VITALS (7 sets, daily range): BP systolic 99–131; BP diastolic 68–84; PULSE 91–96; RESP 16–20; TEMP 36.2–37; O2SAT 93–98
--- NOTE | 2020-03-26 12:15 | DI.CT_ITS ---
EXAM: CT ABDOMEN PELVIS W CLINICAL HISTORY: R abd pain, constipated at [employer] [employer] care facilit. TECHNIQUE: Imaging Protocol: Axial computed tomography images with coronal and sagittal reformatted images were created and reviewed CONTRAST MATERIAL: Intravenous: Omnipaque 350 Contrast volume: 100 cc Oral: No COMPARISON: No exams were available for comparison FINDINGS: ABDOMEN/PELVIS: Liver: Moderate to severe hepatic steatosis.. No measurable mass. Gallbladder: No calcified stones, no wall thickening, no abnormal distention.No pericholecystic fluid . Biliary tract: No radiodense calculus, no dilation. Pancreas: Mild stranding around the pancreas, consistent with pancreatitis. There is no pseudocyst. No calcifications.. Spleen: Normal. Kidneys: Mildly lobulated renal contours. Which could represent scarring. Nonobstructing right angus l calculi.. No hydronephrosis. No masses seen. No perinephric collection. Adrenal glands: No masses seen. Abdominal Aorta: Non-dilated. No atherosclerotic changes. Bowel: There is a large quantity of stool in the rectum and distal sigmoid. Diverticulosis is noted of the distal descending colon. No diverticulitis. Normal appendix. Bladder: No gross wall thickening, focal mass or stones. Peritoneal cavity: No ascites, focal collection or mesenteric inflammatory response. No free air. Bones: No suspicious lesions or fractures. Degenerative disc changes at L5-S1. Reproductive organs: Uterine fibroids.. Lymph nodes: No pathologically enlarged lymph nodes. Impression: 1. Mild pancreatitis. 2. Large amount of stool in the distal sigmoid and rectum. RADIATION DOSE DELIVERED: LINK-TO-SR Total DLP DATA REPOSITORY: All CT scans at this facility are submitted to the National Radiology Data Registry (NRDR) Dose Index Registry (DIR) with the [employer] ([employer]). RADIATION OPTIMIZATION: All CT scans at this facility use at least one of these dose optimization te chniques: automated exposure control; mA and/or kV adjustment per patient size (includes targeted exa ms where dose is matched to clinical indication); or iterative reconstruction.
--- NOTE | 2020-03-26 12:27 | ED.GENADUL_ITS ---
Discharge Plan Disposition Patient Disposition: [facility] INPATIENT Condition: Stable Discharge Details Chief Complaint: Abd Prob Clinical Impression: Acute pancreatitis Primary Care Provider: Agueda Bingham ED Provider: Pastor Patel Home Meds and New Rx's Prescriptions: No Action levothyroxine 125 mcg capsule 125 mcg PO DAILY Qty: 30 RF: 3 valproic acid (as sodium salt) 250 mg/5 mL Solution 10 ml PO BID RF: 0 mycophenolate mofetil 200 mg/mL Suspension For Reconstitution 0.5 ml PO DAILY RF: 0 ipratropium-albuterol 0.5 mg-3 mg(2.5 mg base)/3 mL Solution For Nebulization 3 ml UPD Q6H PRN PRNQty: 0 RF: 0 albuterol sulfate 2.5 mg /3 mL (0.083 %) Solution For Nebulization 2.5 mg UPD Q2H PRN PRNQty: 0 RF: 0 pantoprazole [Protonix] 40 mg Recon Soln 40 mg IVP Q24H Qty: 0 RF: 0 enoxaparin [Lovenox] 40 mg/0.4 mL Syringe 40 mg subcut Q24H Qty: 0 RF: 0 Novolog Flexpen U-100 Insulin 100 unit/mL Insulin Pen 0 units subcut AC & HS Qty: 0 RF: 0 ondansetron HCl (PF) 4 mg/2 mL Solution 4 mg IVP Q6H PRN PRNQty: 0 RF: 0 Solu-Medrol (PF) 40 mg/mL Recon Soln 20 mg IVP Q12H Qty: 0 RF: 0 guaifenesin [Mucinex] 600 mg Tablet Extended Release 12hr 600 mg PO BID Qty: 0 RF: 0 bupropion HCl 150 MG tablet extended release 12 hr 150 mg PO DAILY RF: 0 trazodone 50 MG tablet 25 mg PO BID RF: 0 simethicone 180 MG capsule 180 mg PO TID PRNRF: 0 melatonin 3 MG tablet 3 mg PO HS PRNRF: 0 simvastatin 20 MG tablet 20 mg PO HS RF: 0 carbidopa-levodopa 1 EACH tablet 1 tab PO QID RF: 0 bupropion HCl 150 MG tablet extended release 24 hr 300 mg PO QAM RF: 0 cholecalciferol (vitamin D3) 1,000 UNITS tablet 2,000 units PO DAILY RF: 0 lamotrigine 50 MG tablet extended release 24hr 50 mg PO BID RF: 0 Multivitamin/Iron/Folic Acid [Centrum Adults Tablet] 1 EACH Tablet 1 tab PO DAILY RF: 0 aspirin 81 MG tablet,chewable 81 mg PO DAILY RF: 0 acetaminophen [Tylenol] 325 mg Tablet 650 mg PO DAILY RF: 0 quetiapine 100 mg Tablet 100 mg PO TID RF: 0 prednisone 2.5 mg Tablet 2.5 mg PO DAILY RF: 0 diclofenac potassium 50 mg Tablet 50 mg PO BID PRNRF: 0 docusate sodium [Colace] 100 mg Capsule 100 mg PO BID RF: 0 mirtazapine 15 mg Tablet 15 mg PO QHS RF: 0 Nu-Mag 71.5 mg Tablet,Delayed Release (Dr/Ec) 64 mg PO DAILY RF: 0 Medical Decision Making 59-year-old female from the [facility]. She presents abdominal pain and bloating over days time. She has had some evidence of constipation for which she was treated with MiraLAX and had some liquid stool output. Her physician, Dr. Travis reported a large stool ball. Due to the patient's ongoing bloating and mild abdominal discomfort she was referred for evaluation in the ER today. She arrives afebrile with a temp of 36.2 and no acute distress. Mild abdominal tenderness on exam. Patient referred for laboratory testing and CT images. Labs reveal a white count of 10, hematocrit 39 complete was to 88, chemistries with unremarkable LFTs, lipase elevated to nearly 1000. CT does reveal both constipation and evidence of pancreatitis. Case discussed with Dr. Lea and we will admit overnight for ongoing management. Lab Data Lab results reviewed: Yes I reviewed the patient's lab results. Labs: Laboratory Results - last 24 hr 03/26/20 03/26/20 12:36 12:36 WBC 10.52 RBC 4.04 Hgb 12.8 Hct 39.4 MCV 97.5 H MCH 31.7 MCHC 32.5 RDW 14.9 H Plt Count 288 D MPV 8.7 Immature Gran % 0.0 Neutrophils % 58.0 Band Neutrophils % 2.0 Lymphocytes % 28.0 Monocytes % 12.0 Eosinophils % 0.0 Basophils % 0.0 Absolute Neutrophils 6.31 Absolute Lymphocytes 2.95 Absolute Monocytes 1.26 H Absolute Eosinophils 0.00 Absolute Basophils 0.00 Differential Comment Manual differential RBC Morphology See below Anisocytosis 1+ Stomatocytes 2+ Sodium 137 Potassium 4.0 Chloride 100 Carbon Dioxide 29.1 Anion Gap 7.9 BUN 8 Creatinine 0.79 Estimated GFR/1.73 m2 >= 60.00 Glucose 134 H Calcium 9.2 Total Bilirubin 0.4 AST 23 ALT 9 L Alkaline Phosphatase 54 Total Protein 7.0 Albumin 2.7 L HPI General Mode of arrival: EMS . Date/Time Provider Initiated Documentation: 03/26/20 12:14 . Limitations to Documentation: no limitations . Information obtained by: patient and EMS . History of Present Illness 59 year old F presents to the emergency department with the chief complaint of Abdominal bloating, constipation, pain over days time., described as moderate, Quality is described as dull and constant, and is localized to the abdomen. Patient reports no radiation. Patient started experiencing this day(s) and it has been constant. No relieving factors improve symptom(s), No exacerbating factors reported . Patient did receive the following treatments prior to arrival, other (MiraLAX at home. Bowel movement this morning.) Related Data Home Medications Medication Instructions Recorded Confirmed Multivitamin/Iron/Folic Acid 1 tab PO DAILY 08/08/17 03/26/20 [Centrum Adults Tablet] bupropion HCl 150 mg PO DAILY 08/08/17 03/26/20 bupropion HCl 300 mg PO QAM 08/08/17 03/26/20 carbidopa-levodopa 1 tab PO QID 08/08/17 03/26/20 cholecalciferol (vitamin D3) 2,000 units PO DAILY 08/08/17 10/29/18 lamotrigine 50 mg PO BID 08/08/17 03/26/20 melatonin 3 mg PO HS PRN 08/08/17 12/08/17 simethicone 180 mg PO TID PRN 08/08/17 12/08/17 simvastatin 20 mg PO HS 08/08/17 12/08/17 trazodone 25 mg PO BID 08/08/17 03/26/20 aspirin 81 mg PO DAILY chew 08/10/17 03/26/20 mycophenolate mofetil 0.5 ml PO DAILY 10/29/18 03/26/20 valproic acid (as sodium salt) 10 ml PO BID 10/29/18 03/26/20 albuterol sulfate 2.5 mg UPD Q2H PRN PRN #0 ml 11/01/18 enoxaparin [Lovenox] 40 mg SUBCUT Q24H #0 ml 11/01/18 guaifenesin [Mucinex] 600 mg PO BID #0 tab 11/01/18 insulin aspart U-100 [Novolog 0 units SUBCUT AC & HS #0 ml 11/01/18 Flexpen U-100 Insulin] ipratropium-albuterol 3 ml UPD Q6H PRN PRN #0 ml 11/01/18 methylprednisolone sod suc(PF) 20 mg IVP Q12H #0 ea 11/01/18 [Solu-Medrol (PF)] ondansetron HCl (PF) 4 mg IVP Q6H PRN PRN #0 ml 11/01/18 pantoprazole [Protonix] 40 mg IVP Q24H #0 ea 11/01/18 levothyroxine 125 mcg capsule 125 mcg PO DAILY #30 cap 01/07/19 acetaminophen [Tylenol] 650 mg PO DAILY 03/26/20 03/26/20 diclofenac potassium 50 mg PO BID PRN 03/26/20 03/26/20 docusate sodium [Colace] 100 mg PO BID 03/26/20 03/26/20 magnesium chloride [Nu-Mag] 64 mg PO DAILY 03/26/20 03/26/20 mirtazapine 15 mg PO QHS 03/26/20 03/26/20 prednisone 2.5 mg PO DAILY 03/26/20 03/26/20 quetiapine 100 mg PO TID 03/26/20 03/26/20 Previous Rx's Medication Instructions Recorded aspirin 81 mg PO DAILY chew 08/10/17 albuterol sulfate 2.5 mg UPD Q2H PRN PRN #0 ml 11/01/18 enoxaparin [Lovenox] 40 mg SUBCUT Q24H #0 ml 11/01/18 guaifenesin [Mucinex] 600 mg PO BID #0 tab 11/01/18 insulin aspart U-100 [Novolog 0 units SUBCUT AC & HS #0 ml 11/01/18 Flexpen U-100 Insulin] ipratropium-albuterol 3 ml UPD Q6H PRN PRN #0 ml 11/01/18 methylprednisolone sod suc(PF) 20 mg IVP Q12H #0 ea 11/01/18 [Solu-Medrol (PF)] ondansetron HCl (PF) 4 mg IVP Q6H PRN PRN #0 ml 11/01/18 pantoprazole [Protonix] 40 mg IVP Q24H #0 ea 11/01/18 levothyroxine 125 mcg capsule 125 mcg PO DAILY #30 cap 01/07/19 Allergies Allergy/AdvReac Type Severity Reaction Status Date / Time naproxen [From Aleve] Allergy Unknown Unverified 03/26/20 12:53 Penicillins Allergy Unknown Unverified 03/26/20 12:53 propoxyphene Allergy Unknown Unverified 03/26/20 12:53 Sulfa (Sulfonamide Allergy Unknown Unverified 03/26/20 12:53 Antibiotics) General Stated Complaint: Abd Prob RUBENS: 3 Review of Systems Narrative: 6 systems reviewed and otherwise negative [facility] Medical History DALTON (acute kidney injury) (Inactive) Complicated UTI (urinary tract infection) (Inactive) Septic shock (Inactive) UTI (urinary tract infection) (Inactive) Social History Smoking/Tobacco Use Status: Former Tobacco Use Alcohol Intake: former Drug use: Never Substance use type: does not use Housing: residential Number of Children: 5 Education Level: elementary school Details: 6th grade, special ed, left school age 16. What is your relationship status?: Panel score (0-1 are the most socially isolated patients): 0 Do you feel safe at home: Yes Do you feel safe in your relationship?: Yes Exam Narrative Exam Narrative: GEN: awake, alert, oriented 3. Pleasant, well groomed, interactive. HEAD: Normocephalic, atraumatic ENT: Mucous membranes moist, oropharynx unremarkable, External ear exam unremarkable EYES: PERRL, EOMI NECK: Full ROM, no KENAN, no menigismus CHEST/RESP: Nontender, clear to auscultation bilateral, no wheeze/rhonchi/rales CARDIOVASCULAR: RRR, no murmur, rub wendy. 2+ Rad pulse bilateral ABDOMEN: Soft, minimal tenderness, primarily at right lower quadrant, no mass. +Bowel sounds EXT: Full ROM, mild left-sided weakness Neuro: Grossly normal neurologic exam, conversant, interactive. Psych: Speech fluent, thoughts congruent, affect normal Course Vital Signs Vital signs: Vital Signs Temperature 36.2 C L 03/26/20 12:09 Pulse 92 H 03/26/20 12:09 Respiratory Rate 16 03/26/20 12:09 Blood Pressure 116/75 03/26/20 12:09 Pulse Oximetry 96 03/26/20 12:09 Temperature 36.2 C L 03/26/20 12:09 Temperature Source Tympanic 03/26/20 12:09 Pulse 92 H 03/26/20 12:09 Respiratory Rate 16 03/26/20 12:09 Respiratory Effort Non-Labored 03/26/20 12:13 Blood Pressure 116/75 03/26/20 12:09 Blood Pressure Position Sitting 03/26/20 12:09 Pulse Oximetry 96 03/26/20 12:09 Oxygen Delivery Method Room Air 03/26/20 12:09 Oxygen Flow Rate 0 03/26/20 12:09 Pain Level 7 03/26/20 12:09
[2020-03-26] MEDS: Omnipaque 350 MG/ML 50 ML BTL PO (12:31)
[2020-03-26] MEDS: Breeza Beverage 473 ML BTL PO ×2 (12:31→12:32)
[2020-03-26 12:44] LABS: Abs Immature Grans 0.02 k/cumm (0.0-0.09); HCT 39.4 % (36.0-46.0); HGB 12.8 g/dL (12.0-15.5); Mean Corp. HGB Concentration 32.5 g/dL (32.0-36.0); Mean Corpuscular Hemoglobin 31.7 pg (27.0-33.0); Mean Corpuscular Volume 97.5 fL (80-95); Mean Platelet Volume 8.7 fL (8.0-11.0); RBC 4.04 m/cumm (4.00-5.20); RBC Distribution Width 14.9 % (11.7-14.6); White Blood Cell Count 10.52 k/cumm (4.4-10.8)
[2020-03-26] MEDS: Normal Saline 1,000 ML 125 ML IV (12:54)
[2020-03-26 12:58] LABS: ALT 9 U/L (14-59); AST 23 U/L (15-37); Albumin 2.7 g/dL (3.4-5.0); Alkaline Phosphatase 54 U/L (46-116); Anion Gap 7.9 mmol/L (3-11); BUN 8 mg/dL (7-18); Bilirubin, Total 0.4 mg/dL (0.2-1.0); CO2 29.1 mmol/L (21.0-32.0); CREATININE 0.79 mg/dL (0.55-1.02); Calcium 9.2 mg/dL (8.5-10.1); Chloride 100 mmol/L (98-107); Glucose 134 mg/dL (74-106); Sodium 137 mmol/L (136-145)
[2020-03-26 13:07] LABS: Absolute Lymphocyte Count 2.95 k/cumm (1.2-3.4); Absolute Monocyte Count 1.26 k/cumm (0.11-0.7); Absolute Neutrophil Count 6.31 k/cumm (1.2-6.7); Diff Comment Manual Differential
[2020-03-26 13:08] LABS: Anisocytosis 1+; Stomatocytes 2+
[2020-03-26 13:09] LABS: Platelet Count 288 x1000/uL (130-400)
[2020-03-26] MEDS: Ondansetron 4 MG/2 ML VIAL IVP (13:26)
[2020-03-26] MEDS: Omnipaque 350 MG/ML 100 ML BTL IJ (14:00)
--- NOTE | 2020-03-26 15:15 | DI.VRAD_ITS ---
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 COMPARISON: CT CHEST/ABD/PEL W 10/29/2018 7:47 PM FINDINGS: Lungs: Linear scarring or atelectasis both lung bases. Liver: Diffuse decrease in hepatic parenchymal density, consistent with fatty infiltration. Gallbladder and bile ducts: Normal. No calcified stones. No ductal dilation. Pancreas: Peripancreatic inflammatory stranding and fluid, consistent with acute pancreatitis. Spleen: Normal. No splenomegaly. Adrenals: Normal. No mass. Kidneys and ureters: Scarring and cortical thinning right kidney. No hydronephrosis. Nonobstructing calyceal stones at the right renal pelvis. Stomach and bowel: Large amount of stool at the sigmoid and rectosigmoid up to 9.2 cm diameter similar to previous. Colonic diverticula present. No evidence of intestinal perforation or obstruction. Appendix: No evidence of appendicitis. Intraperitoneal space: Mild free fluid. Vasculature: Coronary artery calcifications noted. Aorta demonstrates mild atherosclerotic calcification. Lymph nodes: Unremarkable. No enlarged lymph nodes. Bladder: Unremarkable as visualized. Reproductive: Fibroid uterus. Bones/joints: Unremarkable. No acute fracture. Soft tissues: Unremarkable. IMPRESSION: 1. Acute pancreatitis. 2. Large amount of stool at the sigmoid and rectosigmoid up to 9.2 cm diameter similar to previous. Dictated and Authenticated by: Mehdi Barnhart MD. Ordering:DEMETRIO Baumann MD
[2020-03-26 15:59] LABS: Lipase 958 U/L (73-393)
--- NOTE | 2020-03-26 16:26 | HPE_ITS ---
Date of service: 03/26/20 Time of Service: 16:26 Assessment and Plan Assessment and plan (1) Acute pancreatitis: Status: Acute Assessment and plan: Idiopathic. No h/o pancreatitis. Distance alcohol use. GB normal w/o stones on imaging. No N/V. Mild LUQ pain Will allow clear liquid diet if tolerates. IV NS at 50ml/hr. Monitor lipase. (2) Bipolar 1 disorder: Status: Acute Assessment and plan: Cont current psychiatric meds. (3) Constipation: Status: Acute Assessment and plan: Miralax BID. Dulcolax suppository now M.O.M. daily prn. Encourage fluids if tolerates given acute pancreatitis. History of Present Illness History of Present Illness Chief Complaint: Abdominal pain Narrative: This is a 59 yo female resident of the [facility]. She has a h/o CVA, bipolar d.o., cognitive delay. For the last several days she has c/o abd pain, bloating and constipation. She has been treated with miralax with the result of some liquid stool. She continued to have symptoms so presented to the ED. Lipase was noted to be elevated and CT abd/pelvis indicated pancreatitis. Also noted on imaging was a large amount of stool in the sigmoid and rectosigmoid colon. WBC count normal. Pt endorses having an appetite and would like to eat. Review of Systems All systems reviewed & are unremarkable except as noted in HPI and below Cardiovascular Cardiovascular: Denies chest pain, Denies irregular heart rhythm and Denies dyspnea on exertion Respiratory Respiratory: Denies cough, Denies dyspnea on exertion and Denies wheezing Gastrointestinal Gastrointestinal: Reports abdominal pain, Denies melena, Denies hematochezia and Reports constipation Neurologic Neurologic: Denies confusion Psychiatric Psychiatric: Denies anxiety, Denies confusion and Denies depression Allergic/Immunologic Allergic/Immunologic: Denies wheezing [facility] Medical History DALTON (acute kidney injury) (Inactive) Complicated UTI (urinary tract infection) (Inactive) Septic shock (Inactive) UTI (urinary tract infection) (Inactive) Social History Smoking/Tobacco Use Status: Former Tobacco Use Alcohol Intake: former Drug use: Never Substance use type: does not use Housing: fpc Number of Children: 5 Education Level: elementary school Details: 6th grade, special ed, left school age 16. What is your relationship status?: Panel score (0-1 are the most socially isolated patients): 0 Do you feel safe at home: Yes Do you feel safe in your relationship?: Yes Meds Home Medications and Allergies Home Medications Medication Instructions Recorded Confirmed Type Multivitamin/Iron/Folic Acid 1 tab PO DAILY 08/08/17 03/26/20 History [Centrum Adults Tablet] bupropion HCl 150 mg PO DAILY 08/08/17 03/26/20 History bupropion HCl 300 mg PO QAM 08/08/17 03/26/20 History carbidopa-levodopa 1 tab PO QID 08/08/17 03/26/20 History cholecalciferol (vitamin D3) 2,000 units PO DAILY 08/08/17 10/29/18 History lamotrigine 50 mg PO BID 08/08/17 03/26/20 History melatonin 3 mg PO HS PRN 08/08/17 12/08/17 History simethicone 180 mg PO TID PRN 08/08/17 12/08/17 History simvastatin 20 mg PO HS 08/08/17 12/08/17 History trazodone 25 mg PO BID 08/08/17 03/26/20 History aspirin 81 mg PO DAILY chew 08/10/17 03/26/20 Rx mycophenolate mofetil 0.5 ml PO DAILY 10/29/18 03/26/20 History valproic acid (as sodium salt) 10 ml PO BID 10/29/18 03/26/20 History albuterol sulfate 2.5 mg UPD Q2H PRN PRN #0 ml 11/01/18 Rx enoxaparin [Lovenox] 40 mg SUBCUT Q24H #0 ml 11/01/18 Rx guaifenesin [Mucinex] 600 mg PO BID #0 tab 11/01/18 Rx insulin aspart U-100 [Novolog 0 units SUBCUT AC & HS #0 ml 11/01/18 Rx Flexpen U-100 Insulin] ipratropium-albuterol 3 ml UPD Q6H PRN PRN #0 ml 11/01/18 Rx methylprednisolone sod suc(PF) 20 mg IVP Q12H #0 ea 11/01/18 Rx [Solu-Medrol (PF)] ondansetron HCl (PF) 4 mg IVP Q6H PRN PRN #0 ml 11/01/18 Rx pantoprazole [Protonix] 40 mg IVP Q24H #0 ea 11/01/18 Rx levothyroxine 125 mcg capsule 125 mcg PO DAILY #30 cap 01/07/19 Rx acetaminophen [Tylenol] 650 mg PO DAILY 03/26/20 03/26/20 History diclofenac potassium 50 mg PO BID PRN 03/26/20 03/26/20 History docusate sodium [Colace] 100 mg PO BID 03/26/20 03/26/20 History magnesium chloride [Nu-Mag] 64 mg PO DAILY 03/26/20 03/26/20 History mirtazapine 15 mg PO QHS 03/26/20 03/26/20 History prednisone 2.5 mg PO DAILY 03/26/20 03/26/20 History quetiapine 100 mg PO TID 03/26/20 03/26/20 History Allergies Allergy/AdvReac Type Severity Reaction Status Date / Time naproxen [From Aleve] Allergy Unknown Unverified 03/26/20 12:53 Penicillins Allergy Unknown Unverified 03/26/20 12:53 propoxyphene Allergy Unknown Unverified 03/26/20 12:53 Sulfa (Sulfonamide Allergy Unknown Unverified 03/26/20 12:53 Antibiotics) Exam Narrative Exam Narrative: Lying in bed. NAD Const General: cooperative and no acute distress Nutritional Appearance: obese Orientation: alert, oriented to person and oriented to place Eyes General: appearance normal, both eyes and all related structures Sclera: sclerae normal Resp Effort & Inspection: normal respiratory effort Auscultation: clear to auscultation bilaterally Cardio Jugular venous pressure: no JVD Rate: regular rate Rhythm: regular rhythm Heart Sounds: S1 normal and S2 normal GI Inspection: normal to inspection and non-distended Palpation: soft and tender (mild, LUQ) Percussion: normal to percussion Auscultation: normal bowel sounds Skin General skin exam: no rashes or lesions noted Neuro General: patient alert and moves all extremities Speech: speech normal Extrem General: normal to inspection and no clubbing, cyanosis or edema Psych Appearance: grossly normal Speech and Movement: speech and movement normal Affect: blunted Attitude: cooperative Results Labs Result diagrams: 03/26/20 12:36 03/26/20 12:36 Labs: Laboratory Results - last 24 hr 03/26/20 03/26/20 03/26/20 12:36 12:36 12:36 WBC 10.52 RBC 4.04 Hgb 12.8 Hct 39.4 MCV 97.5 H MCH 31.7 MCHC 32.5 RDW 14.9 H Plt Count 288 D MPV 8.7 Immature Gran % 0.0 Neutrophils % 58.0 Band Neutrophils % 2.0 Lymphocytes % 28.0 Monocytes % 12.0 Eosinophils % 0.0 Basophils % 0.0 Absolute Neutrophils 6.31 Absolute Lymphocytes 2.95 Absolute Monocytes 1.26 H Absolute Eosinophils 0.00 Absolute Basophils 0.00 Differential Comment Manual differential RBC Morphology See below Anisocytosis 1+ Stomatocytes 2+ Sodium 137 Potassium 4.0 Chloride 100 Carbon Dioxide 29.1 Anion Gap 7.9 BUN 8 Creatinine 0.79 Estimated GFR/1.73 m2 >= 60.00 Glucose 134 H Calcium 9.2 Total Bilirubin 0.4 AST 23 ALT 9 L Alkaline Phosphatase 54 Total Protein 7.0 Albumin 2.7 L Lipase 958 H Urine Color Urine Clarity Urine pH Ur Specific [place] Urine Protein Urine Ketones Urine Blood Urine Nitrite Urine Bilirubin Urine Urobilinogen Ur Leukocyte Esterase Urine Glucose 03/26/20 15:52 WBC RBC Hgb Hct MCV MCH MCHC RDW Plt Count MPV Immature Gran % Neutrophils % Band Neutrophils % Lymphocytes % Monocytes % Eosinophils % Basophils % Absolute Neutrophils Absolute Lymphocytes Absolute Monocytes Absolute Eosinophils Absolute Basophils Differential Comment RBC Morphology Anisocytosis Stomatocytes Sodium Potassium Chloride Carbon Dioxide Anion Gap BUN Creatinine Estimated GFR/1.73 m2 Glucose Calcium Total Bilirubin AST ALT Alkaline Phosphatase Total Protein Albumin Lipase Urine Color Cancelled Urine Clarity Cancelled Urine pH Cancelled Ur Specific [place] Cancelled Urine Protein Cancelled Urine Ketones Cancelled Urine Blood Cancelled Urine Nitrite Cancelled Urine Bilirubin Cancelled Urine Urobilinogen Cancelled Ur Leukocyte Esterase Cancelled Urine Glucose Cancelled Last Vital Signs Temp 36.6 C 03/26/20 15:28 Pulse 93 H 03/26/20 15:28 Resp 20 03/26/20 15:28 BP 99/69 L 03/26/20 15:28 Pulse Ox 93 L 03/26/20 15:28 COVID-19 Screening Have you, or has anyone in your household, traveled outside of [place] in the last 14 days?: NO Had IN PERSON contact w/suspected or confirmed C-19 person: No
[2020-03-26] MEDS: Polyethylene Glycol 3350 17 GM PACKET PO (20:50)
[2020-03-26] MEDS: traZODone 50 MG TAB 25 MG PO (20:51)
[2020-03-26] MEDS: Acetaminophen 325 MG TAB 650 MG PO (20:51)
[2020-03-26] MEDS: Mirtazapine 15 MG TAB PO (21:37)
[2020-03-26] MEDS: Heparin 5,000 UNITS/ML VIAL 5000 UNITS SC (21:37)
[2020-03-26] MEDS: Normal Saline 1,000 ML 50 ML IV (21:38)
[2020-03-26] MEDS: lamoTRIgine 25 MG TAB 50 MG PO (22:34)
[2020-03-27] VITALS (8 sets, daily range): BP systolic 93–122; BP diastolic 58–80; PULSE 86–96; RESP 18–19; TEMP 36.1–37.9; O2SAT 94–98
[2020-03-27] MEDS: Levothyroxine 125 MCG TAB PO (06:44)
[2020-03-27] MEDS: Heparin 5,000 UNITS/ML VIAL 5000 UNITS SC ×3 (06:44→21:37)
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
[2020-03-27 07:50] LABS: COVID-19 RT-PCR UVMMC Result Negative (Negative)
[2020-03-27] MEDS: Docusate Sodium 100 MG CAP PO ×2 (07:50→20:15)
[2020-03-27] MEDS: Polyethylene Glycol 3350 17 GM PACKET PO ×2 (07:50→20:15)
[2020-03-27] MEDS: buPROPion-XL 150 MG TABCR 450 MG PO (07:51)
[2020-03-27] MEDS: QUEtiapine 100 MG TAB PO ×3 (07:51→20:15)
[2020-03-27] MEDS: Carbidopa 25/Levodopa 100 TAB PO ×4 (07:51→20:15)
[2020-03-27] MEDS: Magnesium Chloride 64 MG TABCR PO ×2 (07:51→20:15)
[2020-03-27] MEDS: Acetaminophen 325 MG TAB 650 MG PO ×3 (07:51→21:37)
[2020-03-27] MEDS: lamoTRIgine 25 MG TAB 50 MG PO ×2 (07:51→20:14)
[2020-03-27] MEDS: Aspirin 81 MG CHEW PO (07:51)
[2020-03-27] MEDS: predniSONE 5 MG TAB 2.5 MG PO (07:51)
[2020-03-27] MEDS: Multivitamin TAB 1 TAB PO (07:52)
[2020-03-27] MEDS: traZODone 50 MG TAB 25 MG PO ×2 (07:52→20:14)
[2020-03-27] MEDS: Senna TAB 1 TAB PO ×2 (09:26→20:15)
[2020-03-27] MEDS: Bisacodyl 10 MG SUPP PR (09:26)
[2020-03-27 10:22] LABS: ALT 13 U/L (14-59); AST 20 U/L (15-37); Albumin 2.5 g/dL (3.4-5.0); Alkaline Phosphatase 57 U/L (46-116); Anion Gap 7.3 mmol/L (3-11); BUN 8 mg/dL (7-18); Bilirubin, Direct 0.15 mg/dL (0.00-0.20); Bilirubin, Total 0.4 mg/dL (0.2-1.0); CO2 27.7 mmol/L (21.0-32.0); CREATININE 0.86 mg/dL (0.55-1.02); Calcium 8.3 mg/dL (8.5-10.1); Chloride 102 mmol/L (98-107); Glucose 231 mg/dL (74-106); Lipase 484 U/L (73-393); Magnesium 1.7 mg/dL (1.8-2.4); Potassium 3.8 mmol/L (3.5-5.1); Sodium 137 mmol/L (136-145); Total Protein 6.8 g/dL (6.4-8.2)
[2020-03-27 10:38] LABS: Calculated LDL 72 mg/dL (<100); Cholesterol 150 mg/dL (<200); HDL Cholesterol 52 mg/dL (40-60); Triglyceride 133 mg/dL (<150)
[2020-03-27] MEDS: Insulin Aspart 300 UNITS/3 ML PEN SC ×2 (12:55→21:36)
--- NOTE | 2020-03-27 14:06 | PHA.REVIEW ---
Pharmacy Admission Review - Admission Clinical Review (Last Reviewed 03/26/20 @ 16:32 by Scott Lea MD) Constipation (Acute) Bipolar 1 disorder (Acute) Acute pancreatitis (Acute) naproxen [From Aleve] Allergy (Unknown, Unverified 03/26/20 12:53) Penicillins Allergy (Unknown, Unverified 03/26/20 12:53) propoxyphene Allergy (Unknown, Unverified 03/26/20 12:53) Sulfa (Sulfonamide Antibiotics) Allergy (Unknown, Unverified 03/26/20 12:53) Height 5 ft 5 in Weight 78 kg - Renal Dosing Renal Dosing: BUN 8 mg/dL (7-18) 03/27/20 09:53 Creatinine 0.86 mg/dL (0.55-1.02) 03/27/20 09:53 Medications needing adjustments: N/A (crcl ~63ml/min) - Anticoagulation Anticoagulation: Hgb 12.8 g/dL (12.0-15.5) 03/26/20 12:36 Hct 39.4 % (36.0-46.0) 03/26/20 12:36 Plt Count 288 x1000/uL (130-400) D 03/26/20 12:36 Creatinine 0.86 mg/dL (0.55-1.02) 03/27/20 09:53 DVT Prohphylaxis: Reviewed Medications: Heparin Therapeutic Anticoagulation: N/A - Relevant Labs Sodium 137 mmol/L (136-145) 03/27/20 09:53 Potassium 3.8 mmol/L (3.5-5.1) 03/27/20 09:53 Chloride 102 mmol/L (98-107) 03/27/20 09:53 Magnesium 1.7 mg/dL (1.8-2.4) L 03/27/20 09:53 Electrolytes, C-Reactive P, ESR: Reviewed (mag replacement ordered) - DM Control DM Control: Glucose 231 mg/dL (74-106) H D 03/27/20 09:53 Finger Stick Blood Glucose 217 Finger Stick Blood Glucose 217 Finger Stick Blood Glucose 136 Insulin Dosing: Reviewed (insulin aspart SS ordered) - BP Control BP Control: Blood Pressure 109/98 - Qtc Review If Elevated: N/A (440) - IV to PO Switch IV Medications: Reviewed (iv mag(x1) and PO replacement ordered) - Home Meds Home Med List reviewed: Intervened (home med dose valproate 500mg bid entered, mycophenolate oral allan pt home med)
[2020-03-27] MEDS: MAGNESIUM SULFATE 2 GM/50 ML BAG IVPB (14:40)
--- NOTE | 2020-03-27 16:04 | W.PM.PROGNOT ---
Date of Service Date of service: 03/27/20 Time of Service: 16:04 Assessment and Plan Assessment and plan (1) Hypotension: Status: Acute Assessment and plan: bolus 500 cc NS and increase MIVF. Check UA to ensure no UTI. (2) Constipation: Status: Acute Assessment and plan: Schedule bowel regimen (3) Acute pancreatitis: Status: Acute Assessment and plan: Tolerating clear liquids. Advance as tolerated. (4) Bipolar 1 disorder: Status: Chronic Assessment and plan: At baseline. No change to outpatient therapy. (5) Ambulatory dysfunction: Status: Chronic Assessment and plan: Consult PT. (6) Chronic chest pain: Status: Chronic Assessment and plan: MSK in character. At this time, I do not plan on further workup. Continue prn tylenol and heat, which the patient states helps. (7) DVT prophylaxis: Status: Acute Assessment and plan: SC heparin (8) Discharge planning issues: Status: Acute Assessment and plan: Full code Subjective Subjective Interval history since last seen: Complains of dizziness, her chronic chest pain, shortness of breath, nausea, left arm pain. She says tylenol usually helps her pain. Her SBP is in the 90's - which she has occasionally. Exam Narrative Exam Narrative: General: Obese female, appears uncomfortable in bed, dysarthric HEENT: EOMI, MMM Heart: RRR, no m/r/g Lungs: CTAB Abdomen: soft, nontender, nondistended Extremities: trace edema BLE's, no c/c. Objective Objective Clinical Data: Abnormal lab results 03/27/20 Range/Units 09:53 Glucose 231 H D (74-106) mg/dL Calcium 8.3 L (8.5-10.1) mg/dL Magnesium 1.7 L (1.8-2.4) mg/dL ALT 13 L (14-59) U/L Albumin 2.5 L (3.4-5.0) g/dL Lipase 484 H (73-393) U/L Vital Signs Temperature 36.3 C L 03/27/20 15:15 Temperature Source Tympanic 03/27/20 15:15 Pulse 89 03/27/20 15:15 Pulse Rhythm Regular 03/27/20 07:55 Respiratory Rate 19 03/27/20 15:15 Respiratory Effort Non-Labored 03/27/20 07:55 Respiratory Depth Normal 03/27/20 07:55 Respiratory Pattern Normal 03/27/20 07:55 Blood Pressure 94/66 L 03/27/20 15:45 Blood Pressure Position Sitting 03/26/20 12:09 Pulse Oximetry 94 L 03/27/20 15:15 Oxygen Delivery Method Nasal Cannula 03/27/20 15:15 Oxygen Flow Rate 1 03/27/20 15:15 Pain Level 7 03/27/20 15:15 Intake & Output 03/26/20 03/27/20 03/27/20 23:59 11:59 23:59 Intake Total 360 / 870 510 / 870 Balance 360 / 870 510 / 870 Weight 77.4 kg 78 kg Intake: Oral 360 / 870 510 / 870 Other: Urine Color Dark [place]rill Yellow Urine Appearance Clear Clear Urine Odor Strong Stool Size Small Small Moderate Stool Characteristics Soft Soft Soft Formed Brown Brown Brown Voiding Methods Incontinent Incontinent Diaper Incontinent Laboratory Results WBC 10.52 k/cumm (4.4-10.8) 03/26/20 12:36 RBC 4.04 m/cumm (4.00-5.20) 03/26/20 12:36 Hgb 12.8 g/dL (12.0-15.5) 03/26/20 12:36 Hct 39.4 % (36.0-46.0) 03/26/20 12:36 MCV 97.5 fL (80-95) H 03/26/20 12:36 MCH 31.7 pg (27.0-33.0) 03/26/20 12:36 MCHC 32.5 g/dL (32.0-36.0) 03/26/20 12:36 RDW 14.9 % (11.7-14.6) H 03/26/20 12:36 Plt Count 288 x1000/uL (130-400) D 03/26/20 12:36 MPV 8.7 fL (8.0-11.0) 03/26/20 12:36 Immature Gran % 0.0 % 03/26/20 12:36 Neutrophils % 58.0 03/26/20 12:36 Band Neutrophils % 2.0 % 03/26/20 12:36 Lymphocytes % 28.0 03/26/20 12:36 Monocytes % 12.0 03/26/20 12:36 Eosinophils % 0.0 03/26/20 12:36 Basophils % 0.0 03/26/20 12:36 Absolute Neutrophils 6.31 k/cumm (1.2-6.7) 03/26/20 12:36 Absolute Lymphocytes 2.95 k/cumm (1.2-3.4) 03/26/20 12:36 Absolute Monocytes 1.26 k/cumm (0.11-0.7) H 03/26/20 12:36 Absolute Eosinophils 0.00 k/cumm (0.0-0.7) 03/26/20 12:36 Absolute Basophils 0.00 k/cumm (0.0-0.2) 03/26/20 12:36 Differential Comment Manual differential 03/26/20 12:36 RBC Morphology See below 03/26/20 12:36 Anisocytosis 1+ 03/26/20 12:36 Stomatocytes 2+ 03/26/20 12:36 Sodium 137 mmol/L (136-145) 03/27/20 09:53 Potassium 3.8 mmol/L (3.5-5.1) 03/27/20 09:53 Chloride 102 mmol/L (98-107) 03/27/20 09:53 Carbon Dioxide 27.7 mmol/L (21.0-32.0) 03/27/20 09:53 Anion Gap 7.3 mmol/L (3-11) 03/27/20 09:53 BUN 8 mg/dL (7-18) 03/27/20 09:53 Creatinine 0.86 mg/dL (0.55-1.02) 03/27/20 09:53 Estimated GFR/1.73 m2 >= 60.00 (mL/min/1.73m2) 03/27/20 09:53 Glucose 231 mg/dL (74-106) H D 03/27/20 09:53 Calcium 8.3 mg/dL (8.5-10.1) L 03/27/20 09:53 Magnesium 1.7 mg/dL (1.8-2.4) L 03/27/20 09:53 Total Bilirubin 0.4 mg/dL (0.2-1.0) 03/27/20 09:53 Conjugated Bilirubin 0.15 mg/dL (0.00-0.20) 03/27/20 09:53 AST 20 U/L (15-37) 03/27/20 09:53 ALT 13 U/L (14-59) L 03/27/20 09:53 Alkaline Phosphatase 57 U/L (46-116) 03/27/20 09:53 Total Protein 6.8 g/dL (6.4-8.2) 03/27/20 09:53 Albumin 2.5 g/dL (3.4-5.0) L 03/27/20 09:53 Triglycerides 133 mg/dL (<150) 03/27/20 09:53 Total Cholesterol 150 mg/dL (<200) 03/27/20 09:53 LDL Cholesterol, Calc 72 mg/dL (<100) 03/27/20 09:53 HDL Cholesterol 52 mg/dL (40-60) 03/27/20 09:53 Lipase 484 U/L (73-393) H 03/27/20 09:53 Urine Color Cancelled 03/26/20 15:52 Urine Clarity Cancelled 03/26/20 15:52 Urine pH Cancelled 03/26/20 15:52 Ur Specific [place] Cancelled 03/26/20 15:52 Urine Protein Cancelled 03/26/20 15:52 Urine Ketones Cancelled 03/26/20 15:52 Urine Blood Cancelled 03/26/20 15:52 Urine Nitrite Cancelled 03/26/20 15:52 Urine Bilirubin Cancelled 03/26/20 15:52 Urine Urobilinogen Cancelled 03/26/20 15:52 Ur Leukocyte Esterase Cancelled 03/26/20 15:52 Urine Glucose Cancelled 03/26/20 15:52 COVID-19 PCR Negative (Negative) 03/26/20 17:15 Nasopharyn COVID-19 PCR Not Applicable 03/26/20 17:15 Ref Test Perform Site [place] [facility] lab 03/26/20 17:15 EKG: NSR, HR 92, nonspecific ST-T changes, old.
[2020-03-27] MEDS: Normal Saline 500 ML 1000 ML IV (16:21)
[2020-03-27] MEDS: Normal Saline 1,000 ML 125 ML IV (17:01)
[2020-03-27] MEDS: Mirtazapine 15 MG TAB PO (21:37)
[2020-03-27 21:38] LABS: Bilirubin Negative (Negative); Blood Moderate (Negative); Clarity Cloudy (Clear); Glucose Negative (Negative); Ketones Negative (Negative); Leukocyte Esterase Large (Negative); Nitrite Positive (Negative)
[2020-03-27 22:01] LABS: Bacteria Many HPF (Negative); C & S Indicated? Yes; Casts Negative LPF (Negative); Crystals Negative HPF (Negative); Epithelial Cells Negative HPF (Negative); Mucus Negative (Negative); Other Cells Moderate Renal (Negative); WBC >50 HPF (0-5)
[2020-03-28] VITALS (14 sets, daily range): BP systolic 83–105; BP diastolic 56–74; PULSE 77–89; RESP 12–19; TEMP 35.2–36.4; O2SAT 95–100
[2020-03-28] MEDS: Normal Saline 1,000 ML 125 ML IV ×2 (00:52→06:51)
[2020-03-28] MEDS: Normal Saline 500 ML IV (05:25)
[2020-03-28] MEDS: Levothyroxine 125 MCG TAB PO (06:06)
[2020-03-28] MEDS: Heparin 5,000 UNITS/ML VIAL 5000 UNITS SC ×3 (06:06→22:08)
[2020-03-28 07:42] LABS: Anion Gap 8.3 mmol/L (3-11); BUN 7 mg/dL (7-18); CO2 25.7 mmol/L (21.0-32.0); CREATININE 0.55 mg/dL (0.55-1.02); Calcium 8.2 mg/dL (8.5-10.1); Chloride 112 mmol/L (98-107); Glucose 83 mg/dL (74-106); Magnesium 2.1 mg/dL (1.8-2.4); Potassium 4.1 mmol/L (3.5-5.1); Sodium 146 mmol/L (136-145)
[2020-03-28] MEDS: buPROPion-XL 150 MG TABCR 450 MG PO (08:09)
[2020-03-28] MEDS: predniSONE 5 MG TAB 2.5 MG PO (08:09)
[2020-03-28] MEDS: Magnesium Chloride 64 MG TABCR PO ×2 (08:10→19:45)
[2020-03-28] MEDS: lamoTRIgine 25 MG TAB 50 MG PO ×2 (08:11→19:45)
[2020-03-28] MEDS: traZODone 50 MG TAB 25 MG PO ×2 (08:13→19:45)
[2020-03-28] MEDS: Acetaminophen 325 MG TAB 650 MG PO ×2 (08:14→17:48)
[2020-03-28] MEDS: Aspirin 81 MG CHEW PO (08:14)
[2020-03-28] MEDS: QUEtiapine 100 MG TAB PO ×3 (08:14→19:45)
[2020-03-28] MEDS: Docusate Sodium 100 MG CAP PO ×2 (08:14→19:45)
[2020-03-28] MEDS: Multivitamin TAB 1 TAB PO (08:15)
[2020-03-28] MEDS: Senna TAB 1 TAB PO ×2 (08:19→19:45)
[2020-03-28] MEDS: Carbidopa 25/Levodopa 100 TAB PO ×4 (08:20→19:45)
[2020-03-28] MEDS: cefTRIAXone 1 GM/50 ML BAG IVPB (08:20)
[2020-03-28] MEDS: Hydrocortisone SOD SUC. 100 MG VIAL IVP (08:25)
[2020-03-28] MEDS: Polyethylene Glycol 3350 17 GM PACKET PO ×2 (08:25→19:44)
[2020-03-28] MEDS: Pantoprazole 40 MG VIAL IVP (08:25)
[2020-03-28 08:30] LABS: Lactate 1.5 mmol/L (0.6-1.4)
[2020-03-28 08:31] LABS: Abs Immature Grans 0.02 k/cumm (0.0-0.09); Absolute Basophil Count 0.01 k/cumm (0.0-0.2); Absolute Eosinophil Count 0.17 k/cumm (0.0-0.7); Absolute Lymphocyte Count 3.27 k/cumm (1.2-3.4); Absolute Monocyte Count 0.77 k/cumm (0.11-0.7); Absolute Neutrophil Count 5.96 k/cumm (1.2-6.7); Basophils % 0.1; Eosinophils % 1.7; HGB 11.5 g/dL (12.0-15.5); Immature Grans % 0.2 %; Lymphocytes % 32.1; Mean Corp. HGB Concentration 31.9 g/dL (32.0-36.0); Mean Corpuscular Hemoglobin 31.8 pg (27.0-33.0); Mean Corpuscular Volume 99.4 fL (80-95); Monocytes % 7.5; Neutrophils % 58.4; RBC 3.62 m/cumm (4.00-5.20); RBC Distribution Width 14.9 % (11.7-14.6)
[2020-03-28 08:43] LABS: Platelet Count 202 x1000/uL (130-400)
[2020-03-28] MEDS: Normal Saline Flush 10 ML SYR IVP (08:45)
[2020-03-28 11:18] LABS: Lactate 1.7 mmol/L (0.6-1.4)
--- NOTE | 2020-03-28 11:48 | W.PM.PROGNOT ---
Date of Service Date of service: 03/28/20 Time of Service: 11:48 Assessment and Plan Assessment and plan (1) UTI (urinary tract infection): Status: Acute Assessment and plan: Unclear if this was present on admission as UA on admission was not done as ordered. C&S pending. Continue empiric ceftriaxone, IVF, stress dose steroids. (2) Hypotension: Status: Acute Assessment and plan: Continue MIVF. I expect this to improve with stress dose steroids as I expect a component of adrenal insufficiency. (3) Constipation: Status: Acute Assessment and plan: + BM. Continue bowel regimen (4) Acute pancreatitis: Status: Resolved Assessment and plan: No reports of abdominal pain or nausea today and tolerating a diet. (5) Bipolar 1 disorder: Status: Chronic Assessment and plan: At baseline. No change to outpatient therapy. (6) Ambulatory dysfunction: Status: Chronic Assessment and plan: PT consulted. (7) Chronic chest pain: Status: Chronic Assessment and plan: Musculoskeletal. No further workup. Continue prn tylenol and heat, which the patient states helps. (8) DVT prophylaxis: Status: Acute Assessment and plan: SC heparin (9) Discharge planning issues: Status: Acute Assessment and plan: Full code Consult palliative care. Subjective Subjective Interval history since last seen: Ms Barrera states she is feeling better today. Denies nausea, but endorses dizziness, chest pain, shortness of breath. The chest pain is her chronic. Has been incontinent of urine. Ms Barrera had 2 episodes of hypotension (yesterday afternoon and again last night/this morning), requiring bolusing of IVF. Her US is positive. She was initiated on ceftriaxone and stress dose hydrocortisone. Exam Narrative Exam Narrative: General: Obese female, dysarthric, looks better today. HEENT: EOMI, MMM Heart: RRR, no m/r/g Lungs: CTAB Abdomen: soft, nontender, nondistended Extremities: trace edema BLE's, no c/c. Objective Objective Clinical Data: Abnormal lab results 03/27/20 03/28/20 03/28/20 Range/Units 20:50 07:12 07:12 RBC (4.00-5.20) m/cumm Hgb (12.0-15.5) g/dL MCV (80-95) fL MCHC (32.0-36.0) g/dL RDW (11.7-14.6) % Absolute Monocytes (0.11-0.7) k/cumm Sodium 146 H (136-145) mmol/L Chloride 112 H (98-107) mmol/L Lactate (0.6-1.4) mmol/L Calcium 8.2 L (8.5-10.1) mg/dL C-Reactive Protein 18.60 H (0.0-0.3) mg/dL Urine Protein 30 H (Negative) mg/dL Urine Blood Moderate H (Negative) Urine Nitrite Positive H (Negative) Urine Urobilinogen 1.0 H (Up TO 0.2) EU/dL Ur Leukocyte Esterase Large H (Negative) Urine RBC 10-20 H (0-2) HPF Urine WBC >50 H (0-5) HPF 03/28/20 03/28/20 03/28/20 Range/Units 08:18 08:20 11:12 RBC 3.62 L (4.00-5.20) m/cumm Hgb 11.5 L (12.0-15.5) g/dL MCV 99.4 H (80-95) fL MCHC 31.9 L (32.0-36.0) g/dL RDW 14.9 H (11.7-14.6) % Absolute Monocytes 0.77 H (0.11-0.7) k/cumm Sodium (136-145) mmol/L Chloride (98-107) mmol/L Lactate 1.5 H 1.7 H (0.6-1.4) mmol/L Calcium (8.5-10.1) mg/dL C-Reactive Protein (0.0-0.3) mg/dL Urine Protein (Negative) mg/dL Urine Blood (Negative) Urine Nitrite (Negative) Urine Urobilinogen (Up TO 0.2) EU/dL Ur Leukocyte Esterase (Negative) Urine RBC (0-2) HPF Urine WBC (0-5) HPF Vital Signs Temperature 35.2 C L 03/28/20 07:30 Temperature Source Tympanic 03/28/20 07:30 Pulse 84 03/28/20 07:30 Pulse Rhythm Regular 03/28/20 10:31 Respiratory Rate 16 03/28/20 07:30 Respiratory Effort 03/28/20 10:31 Respiratory Depth Normal 03/28/20 10:31 Respiratory Pattern Normal 03/28/20 10:31 Blood Pressure 100/60 03/28/20 08:11 Blood Pressure Position Sitting 03/26/20 12:09 Pulse Oximetry 100 03/28/20 07:30 Oxygen Delivery Method Nasal Cannula 03/28/20 07:30 Oxygen Flow Rate 1 03/28/20 07:30 Pain Level 9 03/28/20 07:30 Intake & Output 03/27/20 03/27/20 03/28/20 11:59 23:59 11:59 Intake Total 360 / 2078.167 1719.167 / 2078.167 1968.167 / 1968.167 Balance 360 / 2078.167 171.167 / 2078.167 1968. / 1968. Weight 78 kg 77.9 kg Intake: IV 969.167 / 877.413 6606.167 / 1729.167 Oral 360 / 1110 750 / 1110 240 / 240 Other: Urine Color Dark Sherrill Yellow Yellow Urine Appearance Clear Clear Cloudy Urine Odor Strong Normal Stool Size Small Moderate Small Stool Characteristics Soft Liquid Soft Brown Brown Brown Voiding Methods Incontinent Diaper Incontinent Incontinent Laboratory Results WBC 10.20 k/cumm (4.4-10.8) 03/28/20 08:20 RBC 3.62 m/cumm (4.00-5.20) L 03/28/20 08:20 Hgb 11.5 g/dL (12.0-15.5) L 03/28/20 08:20 Hct 36.0 % (36.0-46.0) 03/28/20 08:20 MCV 99.4 fL (80-95) H 03/28/20 08:20 MCH 31.8 pg (27.0-33.0) 03/28/20 08:20 MCHC 31.9 g/dL (32.0-36.0) L 03/28/20 08:20 RDW 14.9 % (11.7-14.6) H 03/28/20 08:20 Plt Count 202 x1000/uL (130-400) 03/28/20 08:20 MPV 9.0 fL (8.0-11.0) 03/28/20 08:20 Immature Gran % 0.2 % 03/28/20 08:20 Neutrophils % 58.4 03/28/20 08:20 Band Neutrophils % Cancelled 03/28/20 07:12 Lymphocytes % 32.1 03/28/20 08:20 Atypical Lymphs % Cancelled 03/28/20 07:12 Monocytes % 7.5 03/28/20 08:20 Eosinophils % 1.7 03/28/20 08:20 Basophils % 0.1 03/28/20 08:20 Metamyelocytes % Cancelled 03/28/20 07:12 Myelocytes % Cancelled 03/28/20 07:12 Promyelocytes % Cancelled 03/28/20 07:12 Absolute Neutrophils 5.96 k/cumm (1.2-6.7) 03/28/20 08:20 Absolute Lymphocytes 3.27 k/cumm (1.2-3.4) 03/28/20 08:20 Absolute Monocytes 0.77 k/cumm (0.11-0.7) H 03/28/20 08:20 Absolute Eosinophils 0.17 k/cumm (0.0-0.7) 03/28/20 08:20 Absolute Basophils 0.01 k/cumm (0.0-0.2) 03/28/20 08:20 Nucleated RBCs Cancelled 03/28/20 07:12 Differential Comment Cancelled 03/28/20 07:12 Other Cell Type Cancelled 03/28/20 07:12 RBC Morphology Cancelled 03/28/20 07:12 Polychromasia Cancelled 03/28/20 07:12 Hypochromasia Cancelled 03/28/20 07:12 Poikilocytosis Cancelled 03/28/20 07:12 Basophilic Stippling Cancelled 03/28/20 07:12 Anisocytosis Cancelled 03/28/20 07:12 Microcytosis Cancelled 03/28/20 07:12 Macrocytosis Cancelled 03/28/20 07:12 Spherocytes Cancelled 03/28/20 07:12 Target Cells Cancelled 03/28/20 07:12 Tear Drop Cells Cancelled 03/28/20 07:12 Ovalocytes Cancelled 03/28/20 07:12 Stomatocytes Cancelled 03/28/20 07:12 [place] Extension Bodies Cancelled 03/28/20 07:12 [place] Cells Cancelled 03/28/20 07:12 Acanthocytes (Spur) Cancelled 03/28/20 07:12 Schistocytes Cancelled 03/28/20 07:12 Sodium 146 mmol/L (136-145) H 03/28/20 07:12 Potassium 4.1 mmol/L (3.5-5.1) 03/28/20 07:12 Chloride 112 mmol/L (98-107) H 03/28/20 07:12 Carbon Dioxide 25.7 mmol/L (21.0-32.0) 03/28/20 07:12 Anion Gap 8.3 mmol/L (3-11) 03/28/20 07:12 BUN 7 mg/dL (7-18) 03/28/20 07:12 Creatinine 0.55 mg/dL (0.55-1.02) D 03/28/20 07:12 Estimated GFR/1.73 m2 >= 60.00 (mL/min/1.73m2) 03/28/20 07:12 Glucose 83 mg/dL (74-106) D 03/28/20 07:12 Lactate 1.7 mmol/L (0.6-1.4) H 03/28/20 11:12 Calcium 8.2 mg/dL (8.5-10.1) L 03/28/20 07:12 Magnesium 2.1 mg/dL (1.8-2.4) 03/28/20 07:12 Total Bilirubin 0.4 mg/dL (0.2-1.0) 03/27/20 09:53 Conjugated Bilirubin 0.15 mg/dL (0.00-0.20) 03/27/20 09:53 AST 20 U/L (15-37) 03/27/20 09:53 ALT 13 U/L (14-59) L 03/27/20 09:53 Alkaline Phosphatase 57 U/L (46-116) 03/27/20 09:53 C-Reactive Protein 18.60 mg/dL (0.0-0.3) H 03/28/20 07:12 Total Protein 6.8 g/dL (6.4-8.2) 03/27/20 09:53 Albumin 2.5 g/dL (3.4-5.0) L 03/27/20 09:53 Triglycerides 133 mg/dL (<150) 03/27/20 09:53 Total Cholesterol 150 mg/dL (<200) 03/27/20 09:53 LDL Cholesterol, Calc 72 mg/dL (<100) 03/27/20 09:53 HDL Cholesterol 52 mg/dL (40-60) 03/27/20 09:53 Lipase 484 U/L (73-393) H 03/27/20 09:53 Urine Color Yellow (Yellow) 03/27/20 20:50 Urine Clarity Cloudy (Clear) 03/27/20 20:50 Urine pH 7.0 (5-8) 03/27/20 20:50 Ur Specific [place] 1.020 (1.005-1.025) 03/27/20 20:50 Urine Protein 30 mg/dL (Negative) H 03/27/20 20:50 Urine Ketones Negative mg/dL (Negative) 03/27/20 20:50 Urine Blood Moderate (Negative) H 03/27/20 20:50 Urine Nitrite Positive (Negative) H 03/27/20 20:50 Urine Bilirubin Negative (Negative) 03/27/20 20:50 Urine Urobilinogen 1.0 EU/dL (Up TO 0.2) H 03/27/20 20:50 Ur Leukocyte Esterase Large (Negative) H 03/27/20 20:50 Urine RBC 10-20 HPF (0-2) H 03/27/20 20:50 Urine WBC >50 HPF (0-5) H 03/27/20 20:50 Ur Epithelial Cells Negative HPF (Negative) 03/27/20 20:50 Urine Crystals Negative HPF (Negative) 03/27/20 20:50 Urine Bacteria Many HPF (Negative) 03/27/20 20:50 Urine Casts Negative LPF (Negative) 03/27/20 20:50 Urine Mucus Negative (Negative) 03/27/20 20:50 Urine Other Moderate renal (Negative) 03/27/20 20:50 Ur Culture Indicated? Yes 03/27/20 20:50 Urine Glucose Negative mg/dL (Negative) 03/27/20 20:50 COVID-19 PCR Negative (Negative) 03/26/20 17:15 Nasopharyn COVID-19 PCR Not Applicable 03/26/20 17:15 Ref Test Perform Site [facility] 03/26/20 17:15
[2020-03-28] MEDS: Insulin Aspart 300 UNITS/3 ML PEN SC ×3 (12:22→22:08)
[2020-03-28 13:42] LABS: Lactate 2.3 mmol/L (0.6-1.4)
[2020-03-28] MEDS: Hydrocortisone SOD SUC. 100 MG VIAL 50 MG IVP ×2 (14:04→19:44)
[2020-03-28] MEDS: Lactated Ringers 500 ML IV (14:12)
--- NOTE | 2020-03-28 15:10 | CMPROGNOTE_ITS ---
Care Management Progress Note S/O: Ginger was found to have a UTI today, and was subsequently started on ceftriaxone and stress dose hydrocortisone due to hypotension. She continues to be closely monitored at this time. CM continues to follow. A: 59 year old female admitted to [facility] 03/26/20 for Acute Pancreatitis P: Ginger will return to the [facility] when ready per MD, she will transport via ambulance at time of discharge; coordinated by CM.
[2020-03-28] MEDS: Lactated Ringers 1,000 ML 150 ML IV (18:13)
[2020-03-28] MEDS: Ondansetron 4 MG/2 ML VIAL IVP (19:52)
[2020-03-28] MEDS: Mirtazapine 15 MG TAB PO (22:08)
[2020-03-29] VITALS (7 sets, daily range): BP systolic 114–137; BP diastolic 63–78; PULSE 79–90; RESP 18–20; TEMP 35.6–36.9; O2SAT 96–98
[2020-03-29] MEDS: Lactated Ringers 1,000 ML 150 ML IV ×3 (00:20→17:58)
[2020-03-29] MEDS: VANCOMYCIN 1,000 MG in Normal Saline 250 ML 166.667 MG IV (00:20)
[2020-03-29] MEDS: Hydrocortisone SOD SUC. 100 MG VIAL 50 MG IVP ×4 (02:42→22:51)
[2020-03-29] MEDS: Heparin 5,000 UNITS/ML VIAL 5000 UNITS SC ×3 (05:52→22:50)
[2020-03-29] MEDS: Levothyroxine 125 MCG TAB PO (05:53)
[2020-03-29 07:35] LABS: Abs Immature Grans 0.04 k/cumm (0.0-0.09); Absolute Lymphocyte Count 0.76 k/cumm (1.2-3.4); Absolute Monocyte Count 0.24 k/cumm (0.11-0.7); Absolute Neutrophil Count 3.82 k/cumm (1.2-6.7); HCT 34.8 % (36.0-46.0); HGB 11.4 g/dL (12.0-15.5); Immature Grans % 0.8 %; Lymphocytes % 15.6; Mean Corp. HGB Concentration 32.8 g/dL (32.0-36.0); Mean Corpuscular Volume 97.8 fL (80-95); Mean Platelet Volume 9.7 fL (8.0-11.0); Monocytes % 4.9; Neutrophils % 78.7; Platelet Count 217 x1000/uL (130-400); RBC 3.56 m/cumm (4.00-5.20); RBC Distribution Width 14.4 % (11.7-14.6); White Blood Cell Count 4.86 k/cumm (4.4-10.8)
[2020-03-29 07:51] LABS: Anion Gap 8.4 mmol/L (3-11); BUN 7 mg/dL (7-18); C-Reactive Protein 12.86 mg/dL (0.0-0.3); CO2 26.6 mmol/L (21.0-32.0); CREATININE 0.59 mg/dL (0.55-1.02); Calcium 8.4 mg/dL (8.5-10.1); Chloride 106 mmol/L (98-107); Glucose 208 mg/dL (74-106); Magnesium 1.8 mg/dL (1.8-2.4); Potassium 3.3 mmol/L (3.5-5.1); Sodium 141 mmol/L (136-145)
[2020-03-29] MEDS: lamoTRIgine 25 MG TAB 50 MG PO ×2 (08:05→19:54)
[2020-03-29] MEDS: Aspirin 81 MG CHEW PO (08:05)
[2020-03-29 08:06] LABS: Lactate 1.8 mmol/L (0.6-1.4)
[2020-03-29] MEDS: buPROPion-XL 150 MG TABCR 450 MG PO (08:06)
[2020-03-29] MEDS: Acetaminophen 325 MG TAB 650 MG PO (08:07)
[2020-03-29] MEDS: Multivitamin TAB 1 TAB PO (08:08)
[2020-03-29] MEDS: QUEtiapine 100 MG TAB PO ×3 (08:08→19:55)
[2020-03-29] MEDS: Magnesium Chloride 64 MG TABCR PO ×2 (08:09→19:55)
[2020-03-29] MEDS: Carbidopa 25/Levodopa 100 TAB PO ×4 (08:09→19:55)
[2020-03-29] MEDS: traZODone 50 MG TAB 25 MG PO ×2 (08:12→19:54)
[2020-03-29] MEDS: predniSONE 5 MG TAB 2.5 MG PO (08:13)
[2020-03-29] MEDS: Insulin Aspart 300 UNITS/3 ML PEN SC ×4 (08:15→22:51)
[2020-03-29] MEDS: Normal Saline Flush 10 ML SYR IVP (08:16)
[2020-03-29] MEDS: Pantoprazole 40 MG VIAL IVP (08:18)
[2020-03-29] MEDS: cefTRIAXone 1 GM/50 ML BAG IVPB (08:23)
--- NOTE | 2020-03-29 09:40 | PDOC.CMPRO ---
- If Service Date Differs Date of service: 03/29/20 Time of Service: 09:40 Care Management Progress Note S/O: Ginger was sitting up in bed when CM met with her. She stated that her stomach was hurting. CM asked if she had talked to the RN regarding this complaint, which she stated that she had. CM asked how she was doing at the [facility], which she replied that she didn't care for it. She reported that she didn't think that she was being offered enough food at [facility], and that it was pureed, which she didn't prefer. Per report from diabetes assessment, the recommendation to advance diet today was made. Ginger will meet with Palliative today to discuss goals of care and code status. CM will continue to follow. A: Ginger is a 59 year old female admitted to [facility] 03/26/20 for Acute Pancreatitis. P: Ginger will return to the [facility] when ready per MD, she will transport via ambulance at time of discharge; coordinated by CM.
[2020-03-29] MEDS: Potassium Chloride 20 MEQ TABCR 40 MEQ PO (09:45)
[2020-03-29] MEDS: VANCOMYCIN 1,000 MG in Normal Saline 250 ML 167 MG IV ×2 (09:47→19:55)
--- NOTE | 2020-03-29 10:08 | PT.INIE ---
Date of service: 03/29/20 Time of Service: 09:40 PT Notes Visit Reasons: ACUTE PANCREATITIS Inpatient Physical Therapy Evaluation Date: 03/29/20 Referring Doctor: Dr. Yojana Osorio PT Orders: PT CONSULT: limited ability to ambulate Precautions: contact Patient Profile/Admitting Diagnosis: Patient admitted to 03/27/20 with a diagnosis of acute pancreatitis . She is a resident of the [facility] for long-term care. PMHX: Patient is status post CVA with right hemiparesis and aphasia. Diabetes; bipolar disorder; unspecified autoimmune disorder; hypothyroidism; Parkinson's disease (chronically managed on carbodopa-levodopa). Social History/Home Situation: Patient is a long-term resident of the [facility]. She is able to respond to direct questions, and reports that she utilizes a Ashley lift at baseline. She states that she is unable to assist with bed mobility, and has not sat up to the chair in several weeks. She requires assistance with feeding, and is total assist for all self-care. Equipment Owned/DME: Resident of [facility] facility Subjective: Ginger reports ongoing abdominal pain. She is agreeable to PT consult. Objective: General Observation: Resting in bed with nursing present. She has an IV in the LUE, supplemental O2 via nasal cannula. Mental Status: Alert and oriented x 3 Pain: abdominal pain ROM: Right Upper Extremity: Patient has significant flexor tone throughout the right upper extremity, with elbow flexion contracture. Passive shoulder flexion allows 60 degrees on the right. Elbow motion allows 70-95 degrees of flexion. I am able to passively open patient's hand. Left Upper Extremity: Shoulder flexion actively allows 100 degrees. Elbow motion -20 extension to 100 degrees flexion. Right Lower Extremity: She tolerates 80 degrees of passive hip flexion, knee motion 0-70 degrees. Ankle DF to 0 degrees. All PROM is painfree. Left Lower Extremity: Passive hip flexion to 80 degrees. Knee motion allows 0-80 degrees. Ankle DF to 0 degrees. 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 She demonstrates trace shoulder flexion. No active elbow flexion or extension. Left Upper Extremity: Shoulder flexion 3-/5. Biceps 4-/5. Triceps 4-/5. Top Spotter is full but weak. Right Lower Extremity: 0/5 for quads, hamstrings, hip flexion, ankle dorsiflexion Left Lower Extremity: Quads 3-/5. Hip flexion 3-/5. Ankle dorsiflexion 3/5. Sensation: Intact distally Bed Mobility/Transfers: Rolling: Max assist per patient report Supine to sit: Unable She is able to assist with repositioning in bed, with HOB at 20 degrees. Requires max A x 2 for completion of repositioning. Gait: Unable Balance: Static Sitting: Unable Dynamic Sitting: Unable Static Standing: Unable Dynamic Standing: Unable Special Tests: Mobility Limitations Standardized Measure [facility] 6 clicks Basic Mobility Inpatient Short Form: Raw Score: 6 CMS Score: 100% deficit Informed Consent/Education: Patient instructed in purpose of PT consult and plan of care. Treatment: Patient was instructed in a brief therapeutic exercise program as follows: 1. left quad sets, 10x 5 seconds 2. AA heel slides on the left 10x 3. AA SLR left x 10 4. isometric shoulder extension left x 10 5. isometric triceps left x 10 Assessment: Patient is a 59 year old female referred to physical therapy services with the diagnosis of acute pancreatitis. Patient presents with clinical signs and symptoms consistent with diagnosis, with chronic mobility deficits related to her complicated medical history. Patient is a long-term resident of the [facility], and is completely dependent for transfers and self-care. She appears at baseline level of function, and is subsequently not appropriate for skilled PT intervention in acute care setting. She presents with the following impairments: 1. Dense right hemiparesis 2. Left upper extremity weakness 3. Left lower extremity weakness 4. Joint contracture 5. Chronically nonambulatory Impairments contribute following functional limitations: 1. Limited ability to assist in bed mobility 2. Unable to ambulate 3. Unable to sit unassisted 4. Unable to transfer 5. Dependent for all ADLs and self-care Patient is assessed as High [id number] complexity based on the following: History: 58-year-old female admitted for acute medical management of pancreatitis, in the presence of chronic right hemiparesis and aphasia related to an old CVA, diabetes, and Parkinson's disease. Patient is dependent for all mobility and self-care at baseline. Examination: Functional limitations include dependence for bed mobility, transfers and all self-care. Presentation: stable Decision Making: low complexity Plan of Care/Treatment Plan: D/C from PT services in acute care setting, as she is at her baseline level of function DISCHARGE RECOMMENDATIONS: Return to the [facility] for continued long-term care TREATMENT CODE/TIME: 25 minutes (44082) Eusebia Gonzales, PT, DPT [facility]
--- NOTE | 2020-03-29 13:15 | DM INPTCON_ITS ---
Date of service: 03/29/20 Time of Service: 13:16 Diabetes Inpatient Consult DESCRIPTION/ASSESSMENT: 59 year old female admitted from [facility] with UTI, possible pancreatitis with abdominal pain, constipation. PMH: Bipolar, DM2, CVA, cognitive delay. Received Inpatient Diabetes Education today however, not needed as is a [facility] resident. Meds include novolog sliding scale while in house, with 2.5 mg prednison daily. Blood sugars since admit mostly wnl. BMI indicates obesity. Estimated Needs: [id number] kcal, 50-60 g protein, 1800 ml fluid. Labs include Hemoglobin A1C: 6.1% (03/03/20). Diet ordered as CHO/Puree. Has no teeth. Skin intact. Met with Ginger today who states she continues to have abdominal pain however is very hungry. She does not want the puree meals. Nursing reports they will advance diet at dinner today, as puree ordered as a precaution. Ginger eats regular texture meals at the [facility]. Ginger reports nursing gives her insulin before each meal. In veiw of A1C, daibetes well controlled. Recommend advance diet today to moist bite sized. INTERVENTION: advance diet to Diabetic/soft bite sized PLAN: continue current insulin regime while in house, continue with insulin as ordered at the [facility] when d/c advance diet to soft moist bite sized will monitor BS, weight, labs and po intake Time Spent in Nutritional Counseling and Treatment: 15 min spent face to face
--- NOTE | 2020-03-29 13:36 | W.PM.PROGNOT ---
Date of Service Date of service: 03/29/20 Time of Service: 14:14 Assessment and Plan Assessment and plan (1) UTI (urinary tract infection): Status: Acute Assessment and plan: Polymicrobial, likely present on admission, though this could not be verified as the UA ordered on admission is not in the system. On empiric vancomycin/ceftriaxone and clinically improving. On stress dose steroids. Continue current abx, await speciation. 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 Await speciation. Consider urology consult as could be a staghorn. (2) Hypotension: Status: Resolved Assessment and plan: Due to acute on chronic adrenal insufficiency in setting of impending septic shock due to the above UTI. Resolved with stress dose steroids and abx - taper steroids carefully. (3) Acute pancreatitis: Status: Acute Assessment and plan: Reports abdominal pain which is worse today. I reviewed all of the medical records I could find from [facility] and from the senior living. In 2019, the patient had a h/o cholecystitis, but was considered a poor surgical candidate and had a cholecystostomy placed, followed by stone extraction and eventulaly removal of the cholecystostomy catheter. Discussed with pharmacy - the patient is on valproic acid for static encephalopathy. Valproic acid can cause pancreatitis and worsen its severity, per pharmacy. Consult neurology to discuss medication management. For now, downgrade diet. Obtain US RUQ to look for stones. May require MRCP. (4) Constipation: Status: Resolved Assessment and plan: Resolved. In fact, having diarrhea - checking C. Diff. D/c bowel regimen at this time. When returns to [place], will need scheduled bowel regimen. (5) Bipolar 1 disorder: Status: Chronic Assessment and plan: Currently well managed, but valporic acid could have been helping with this too. Will discuss with neurology - if medications are being changed, may require psychiatric consultation to help with medication management. (6) Ambulatory dysfunction: Status: Chronic Assessment and plan: PT consulted (7) Chronic chest pain: Status: Chronic Assessment and plan: Continue tylenol/heat. (8) HOUSE PAINTER vasculitis: Status: Chronic Assessment and plan: Normally on prednisone and cellcept. Cellcept has been on hold since presentation. She is on a stress dose taper for now. Obtaining records from rheumatology. Will need outpatient follow up with rheum and neuro. Additionally, there was a mention of hepatitic C in her hx at [facility] - could it have contributed to vasculitis? Will repeat hepatitis labs. (9) DVT prophylaxis: Status: Acute Assessment and plan: heparin SC (10) Discharge planning issues: Status: Acute Assessment and plan: Full code Palliative care consulted. Subjective Subjective Interval history since last seen: C/o dizziness, chest pain, shortness of breath, L-sided abdominal pain, nausea. States abdominal pain is worse with eating. States chest pain is reproducible with palpation and is helped with heat and with tylenol. Has been having diarrhea - per nursing. Exam Narrative Exam Narrative: General: Obese female with speech which is significantly clear today, A&Ox3, asks good questions, looks more interactive/alert HEENT: EOMI, MMM, edentuous Heart: RRR, no m/r/g Lungs: CTAB Abdomen: soft, tender in epigastrium/LUQ, nondistended, + hyperactive bowel sounds Extremities: trace edema BLE's Objective Objective Clinical Data: Abnormal lab results 03/28/20 03/29/20 03/29/20 Range/Units 13:31 06:38 06:38 RBC 3.56 L (4.00-5.20) m/cumm Hgb 11.4 L (12.0-15.5) g/dL Hct 34.8 L (36.0-46.0) % MCV 97.8 H (80-95) fL Absolute Lymphocytes 0.76 L (1.2-3.4) k/cumm Potassium 3.3 L (3.5-5.1) mmol/L Glucose 208 H D (74-106) mg/dL Lactate 2.3 H* (0.6-1.4) mmol/L Calcium 8.4 L (8.5-10.1) mg/dL C-Reactive Protein 12.86 H (0.0-0.3) mg/dL 03/29/20 Range/Units 08:00 RBC (4.00-5.20) m/cumm Hgb (12.0-15.5) g/dL Hct (36.0-46.0) % MCV (80-95) fL Absolute Lymphocytes (1.2-3.4) k/cumm Potassium (3.5-5.1) mmol/L Glucose (74-106) mg/dL Lactate 1.8 H (0.6-1.4) mmol/L Calcium (8.5-10.1) mg/dL C-Reactive Protein (0.0-0.3) mg/dL Vital Signs Temperature 36.5 C 03/29/20 12:24 Temperature Source Tympanic 03/29/20 12:24 Pulse 82 03/29/20 12:24 Pulse Rhythm Regular 03/29/20 08:00 Respiratory Rate 18 03/29/20 12:24 Respiratory Effort Non-Labored 03/29/20 08:00 Respiratory Depth Normal 03/29/20 08:00 Respiratory Pattern Normal 03/29/20 08:00 Blood Pressure 121/74 03/29/20 12:24 Blood Pressure Position Sitting 03/26/20 12:09 Pulse Oximetry 96 03/29/20 12:24 Oxygen Delivery Method Nasal Cannula 03/29/20 12:24 Oxygen Flow Rate 1 03/29/20 12:24 Pain Level 7 03/29/20 12:24 Comment 03/29/20 08:35 Intake & Output 03/28/20 03/29/20 03/29/20 23:59 11:59 23:59 Intake Total 2110 / 5119.167 2417.5 / 2667.5 250 / 2667.5 Balance 2110 / 5119.167 2417.5 / 2667.5 250 / 2667.5 Weight 82.1 kg Intake: IV 1750 / 4029.167 2167.5 / 2167.5 Oral 360 / 1090 250 / 500 250 / 500 Other: Urine Color Yellow Light Sherrill Urine Odor Strong Strong Comment None stop peeing when i was changing her, every time i would wipe. incontinent Stool Size Moderate Large Stool Characteristics Liquid Liquid Brown Voiding Methods Diaper Diaper Incontinent Incontinent Laboratory Results WBC 4.86 k/cumm (4.4-10.8) D 03/29/20 06:38 RBC 3.56 m/cumm (4.00-5.20) L 03/29/20 06:38 Hgb 11.4 g/dL (12.0-15.5) L 03/29/20 06:38 Hct 34.8 % (36.0-46.0) L 03/29/20 06:38 MCV 97.8 fL (80-95) H 03/29/20 06:38 MCH 32.0 pg (27.0-33.0) 03/29/20 06:38 MCHC 32.8 g/dL (32.0-36.0) 03/29/20 06:38 RDW 14.4 % (11.7-14.6) 03/29/20 06:38 Plt Count 217 x1000/uL (130-400) 03/29/20 06:38 MPV 9.7 fL (8.0-11.0) 03/29/20 06:38 Immature Gran % 0.8 % 03/29/20 06:38 Neutrophils % 78.7 03/29/20 06:38 Band Neutrophils % Cancelled 03/28/20 07:12 Lymphocytes % 15.6 03/29/20 06:38 Atypical Lymphs % Cancelled 03/28/20 07:12 Monocytes % 4.9 03/29/20 06:38 Eosinophils % 0.0 03/29/20 06:38 Basophils % 0.0 03/29/20 06:38 Metamyelocytes % Cancelled 03/28/20 07:12 Myelocytes % Cancelled 03/28/20 07:12 Promyelocytes % Cancelled 03/28/20 07:12 Absolute Neutrophils 3.82 k/cumm (1.2-6.7) 03/29/20 06:38 Absolute Lymphocytes 0.76 k/cumm (1.2-3.4) L 03/29/20 06:38 Absolute Monocytes 0.24 k/cumm (0.11-0.7) 03/29/20 06:38 Absolute Eosinophils 0.00 k/cumm (0.0-0.7) 03/29/20 06:38 Absolute Basophils 0.00 k/cumm (0.0-0.2) 03/29/20 06:38 Nucleated RBCs Cancelled 03/28/20 07:12 Differential Comment Cancelled 03/28/20 07:12 Other Cell Type Cancelled 03/28/20 07:12 RBC Morphology Cancelled 03/28/20 07:12 Polychromasia Cancelled 03/28/20 07:12 Hypochromasia Cancelled 03/28/20 07:12 Poikilocytosis Cancelled 03/28/20 07:12 Basophilic Stippling Cancelled 03/28/20 07:12 Anisocytosis Cancelled 03/28/20 07:12 Microcytosis Cancelled 03/28/20 07:12 Macrocytosis Cancelled 03/28/20 07:12 Spherocytes Cancelled 03/28/20 07:12 Target Cells Cancelled 03/28/20 07:12 Tear Drop Cells Cancelled 03/28/20 07:12 Ovalocytes Cancelled 03/28/20 07:12 Stomatocytes Cancelled 03/28/20 07:12 [place] Bodies Cancelled 03/28/20 07:12 [place] Cells Cancelled 03/28/20 07:12 Acanthocytes (Spur) Cancelled 03/28/20 07:12 Schistocytes Cancelled 03/28/20 07:12 Sodium 141 mmol/L (136-145) 03/29/20 06:38 Potassium 3.3 mmol/L (3.5-5.1) L 03/29/20 06:38 Chloride 106 mmol/L (98-107) 03/29/20 06:38 Carbon Dioxide 26.6 mmol/L (21.0-32.0) 03/29/20 06:38 Anion Gap 8.4 mmol/L (3-11) 03/29/20 06:38 BUN 7 mg/dL (7-18) 03/29/20 06:38 Creatinine 0.59 mg/dL (0.55-1.02) 03/29/20 06:38 Estimated GFR/1.73 m2 >= 60.00 (mL/min/1.73m2) 03/29/20 06:38 Glucose 208 mg/dL (74-106) H D 03/29/20 06:38 Lactate 1.8 mmol/L (0.6-1.4) H 03/29/20 08:00 Calcium 8.4 mg/dL (8.5-10.1) L 03/29/20 06:38 Magnesium 1.8 mg/dL (1.8-2.4) 03/29/20 06:38 Total Bilirubin 0.4 mg/dL (0.2-1.0) 03/27/20 09:53 Conjugated Bilirubin 0.15 mg/dL (0.00-0.20) 03/27/20 09:53 AST 20 U/L (15-37) 03/27/20 09:53 ALT 13 U/L (14-59) L 03/27/20 09:53 Alkaline Phosphatase 57 U/L (46-116) 03/27/20 09:53 C-Reactive Protein 12.86 mg/dL (0.0-0.3) H 03/29/20 06:38 Total Protein 6.8 g/dL (6.4-8.2) 03/27/20 09:53 Albumin 2.5 g/dL (3.4-5.0) L 03/27/20 09:53 Triglycerides 133 mg/dL (<150) 03/27/20 09:53 Total Cholesterol 150 mg/dL (<200) 03/27/20 09:53 LDL Cholesterol, Calc 72 mg/dL (<100) 03/27/20 09:53 HDL Cholesterol 52 mg/dL (40-60) 03/27/20 09:53 Lipase 484 U/L (73-393) H 03/27/20 09:53 Urine Color Yellow (Yellow) 03/27/20 20:50 Urine Clarity Cloudy (Clear) 03/27/20 20:50 Urine pH 7.0 (5-8) 03/27/20 20:50 Ur Specific [place] 1.020 (1.005-1.025) 03/27/20 20:50 Urine Protein 30 mg/dL (Negative) H 03/27/20 20:50 Urine Ketones Negative mg/dL (Negative) 03/27/20 20:50 Urine Blood Moderate (Negative) H 03/27/20 20:50 Urine Nitrite Positive (Negative) H 03/27/20 20:50 Urine Bilirubin Negative (Negative) 03/27/20 20:50 Urine Urobilinogen 1.0 EU/dL (Up TO 0.2) H 03/27/20 20:50 Ur Leukocyte Esterase Large (Negative) H 03/27/20 20:50 Urine RBC 10-20 HPF (0-2) H 03/27/20 20:50 Urine WBC >50 HPF (0-5) H 03/27/20 20:50 Ur Epithelial Cells Negative HPF (Negative) 03/27/20 20:50 Urine Crystals Negative HPF (Negative) 03/27/20 20:50 Urine Bacteria Many HPF (Negative) 03/27/20 20:50 Urine Casts Negative LPF (Negative) 03/27/20 20:50 Urine Mucus Negative (Negative) 03/27/20 20:50 Urine Other Moderate renal (Negative) 03/27/20 20:50 Ur Culture Indicated? Yes 03/27/20 20:50 Urine Glucose Negative mg/dL (Negative) 03/27/20 20:50 COVID-19 PCR Negative (Negative) 03/26/20 17:15 Nasopharyn COVID-19 PCR Not Applicable 03/26/20 17:15 Ref Test [facility] 03/26/20 17:15
--- NOTE | 2020-03-29 14:00 | CHAPLAIN ---
Ginger was in bed when I visited. She told me she came from the [facility], but lived locally with her before that and at one time lived in [place], [place] as her dad was in the [place]. She is wearing beaded bracelets that she said a friend, who recently, made for her. I will continue to visit.
--- NOTE | 2020-03-29 15:29 | W.UROLOGYCON ---
Date of service: 03/29/20 Time of Service: 15:44 Assessment and Plan Assessment and plan (1) Right kidney stone: Status: Acute Assessment and plan: From the records I can review at the [facility], there appeared to be some stone fragments in the right kidney (mid and lower pole) immediately after her procedures. I cannot tell whether the stone burden from our scan is higher than her immediate postop scan, but none of the stone particles visible on our CT are large enough to be considered staghorn stones. If her previous stone truly had a struvite composition and her current stones are residual from that time, there is a possibility that even the smaller stones are struvite in nature and could be harboring bacteria. I think this is rather unlikely, as I would expect her to have persistent Proteus and Klebsiella in her urine since the time of her initial surgery. On at least 1 occasion in the interim, her urine grew enterococcus instead. I will attempt to get a hold of with her stone analysis from [facility] and ask for her postprocedural CT scan to be pushed so that I can compare stone sizes. If the urine is not showing Proteus and Klebsiella, I think we can safely say they are not infectious stones and probably do not need to be treated. History of Present Illness History of Present Illness Chief Complaint: Right kidney stones Narrative: This is a 59-year-old woman who has a past history significant for a 2 cm right sided kidney stone. The stone in question was identified in October 2018. At that time, the patient had Klebsiella and Proteus in her urine. A stent was not placed immediately at that time since the stone was not causing obstruction. She was treated with a combination of percutaneous nephrolithotomy with ureteroscopy at the [facility]. Based on the density of the stone, there was some discussion that the stone was mostly uric acid. I do not have access to the stone analysis at this time, but it is described as a infection based stone, so it may have been a struvite stone. Immediately after the percutaneous nephrolithotomy, a CT scan showed some small stone fragments remaining in the kidney. These were confirmed on an ultrasound a few months later. Since no hydronephrosis was identified, no additional treatment was recommended. She is now admitted with abdominal pain. A urine culture on admission is growing multiple organisms. The final identification of the organisms is not yet available. A CT scan of the abdomen and pelvis showed no hydronephrosis but some stones on the right side. I have been asked to see her for these issues. The patient tells me that her abdominal pain seems worse after she eats. She has been found to have changes on her CT scan suggestive of pancreatitis. She is not having any dysuria or gross hematuria. She had no suspicion that she had a urinary tract infection prior to her admission. [facility] Medical History (Updated 03/29/20 @ 20:33 by Anusha Goetz MD, DC) DALTON (acute kidney injury) (Inactive) Anxiety (Chronic) Bipolar 1 disorder (Acute) Cholelithiasis with acute cholecystitis (Acute) s/p cholecystostomy and stone extraction in 2014 ([facility]), tube now pulled. 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 insufficiency (Acute) CANDY BUTCHER vasculitis (Chronic) Complicated UTI (urinary tract infection) (Inactive) Diverticulosis (Acute) Hemiparesis affecting right side as late effect of cerebrovascular accident (CVA) (Acute) Hepatitis C (Chronic) History of multiple cerebrovascular accidents (CVAs) (Acute) Hypertension (Chronic) Hypothyroidism (Chronic) IDDM (insulin dependent diabetes mellitus) (Chronic) Lumbar disc disease (Acute) Nephrolithiasis (Chronic) Neurogenic bladder (Acute) Obesity (BMI 30.0-34.9) (Acute) Right kidney stone (Acute) Septic shock (Inactive) Static encephalopathy (Acute) Steroid dependent (Acute) Uterine mass (Acute) likely a fibroid UTI (urinary tract infection) (Inactive) Surgical History (Updated 03/29/20 @ 14:13 by Yojana Osorio MD) Abnormal cholangiogram (Acute) H/O cervical spine surgery (Acute) H/O foot surgery (Acute) H/O wrist surgery (Acute) History of extraction of renal calculus (Acute) 12/13/2018 - [facility] History of hip surgery (Acute) right History of lumbosacral spine surgery (Acute) S/P cystoscopy with ureteral stent placement (Acute) [facility] 11/2018 Status post creation of urethral sling by suprapubic approach (Acute) Family History (Updated 03/29/20 @ 14:04 by Yojana Osorio MD) Mother Stroke Social History (Updated 03/29/20 @ 14:14 by Yojana Osorio MD) Smoking/Tobacco Use Status: Former Tobacco Use Alcohol Intake: former Substance use type: former substance user and IV drugs Housing: residential Number of Children: 5 Education Level: elementary school Details: 6th grade, special ed, left school age 16. What is your relationship status?: Panel score (0-1 are the most socially isolated patients): 0 Do you feel safe at home: Yes Do you feel safe in your relationship?: Yes Exam Narrative Exam Narrative: She appears more chronically ill than acutely ill. Her vital signs are documented elsewhere in the chart Her abdomen is obese but soft with no guarding or rebound tenderness. No CVA tenderness is found. She is awake and alert I reviewed her CT scan on the PACS system. There are multiple nonobstructing stones on the right side. I reviewed her CT from October 2018 as well. At that time, she had a 2 cm stone in the renal pelvis. Results Last Vital Signs Temp 36.5 C 03/29/20 12:24 Pulse 82 03/29/20 12:24 Resp 18 03/29/20 12:24 BP 121/74 03/29/20 12:24 Pulse Ox 96 03/29/20 12:24 Labs Result diagrams: 03/30/20 04:45 03/30/20 04:45 Labs: Laboratory Results - last 24 hr 03/29/20 03/29/20 03/29/20 06:38 06:38 08:00 WBC 4.86 D RBC 3.56 L Hgb 11.4 L Hct 34.8 L MCV 97.8 H MCH 32.0 MCHC 32.8 RDW 14.4 Plt Count 217 MPV 9.7 Immature Gran % 0.8 Neutrophils % 78.7 Lymphocytes % 15.6 Monocytes % 4.9 Eosinophils % 0.0 Basophils % 0.0 Absolute Neutrophils 3.82 Absolute Lymphocytes 0.76 L Absolute Monocytes 0.24 Absolute Eosinophils 0.00 Absolute Basophils 0.00 Sodium 141 Potassium 3.3 L Chloride 106 Carbon Dioxide 26.6 Anion Gap 8.4 BUN 7 Creatinine 0.59 Estimated GFR/1.73 m2 >= 60.00 Glucose 208 H D Lactate 1.8 H Calcium 8.4 L Magnesium 1.8 C-Reactive Protein 12.86 H
--- NOTE | 2020-03-29 20:32 | W.PALLCONSUL ---
Date of service: 03/29/20 Time of Service: 18:32 History of Present Illness Consults Consult date: 03/29/20 Requesting physician: Yojana Osorio Assessment and Plan Assessment and plan (1) Right kidney stone: Status: Acute (2) Bipolar 1 disorder: Status: Chronic (3) Acute pancreatitis: Status: Acute (4) Palliative care encounter: Status: Acute Assessment and plan: After much discussion we completed Ginger's COLST form. She clearly stated If I am , let me . I do not want to be intubated. She chose DNR/DNI. She is willing to get a feeding tube if necessary. She also wanted to be transported to the ER if she became ill. She also wanted IV fluids. I do feel that Ginger understood our conversation and its implications. She repeatedly said she did not want CPR. She wants her dad to make decisions about her health if she couldn't chose herself. She is happy Dr Alvarez will help her with her kidney stones. She also could clearly state why she was in [facility] and why she needed to eat lightly for a few days - although she is hungry and wants more. Thank you very much for this consult. Ginger was very insightful during our conversation. I have spent more than 50% of time in counseling with this patient. This document was created by link bird software. Content was screened for misspellings, grammatical mistakes, etc. I apologize for any problems, but please contact me for further clarification if needed. Review of Systems Narrative: Ginger's main complaint is that she is hungry and wants more food. She understands that she cannot have more at this time because of her pancreatitis. She also understood that Dr. Alvarez said that they were going to check on her infection to see if this kidney stones that she had worse harboring the bug and causing repeat infections. COUNTS INCLUDE 234 BEDS AT THE [facility] Medical History (Updated 03/29/20 @ 20:33 by Anusha Goetz MD, DC) DALTON (acute kidney injury) (Inactive) Anxiety (Chronic) Bipolar 1 disorder (Acute) Cholelithiasis with acute cholecystitis (Acute) s/p cholecystostomy and stone extraction in 2014 ([facility]), tube now pulled. 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 insufficiency (Acute) TUBE KNITTER vasculitis (Chronic) Complicated UTI (urinary tract infection) (Inactive) Diverticulosis (Acute) Hemiparesis affecting right side as late effect of cerebrovascular accident (CVA) (Acute) Hepatitis C (Chronic) History of multiple cerebrovascular accidents (CVAs) (Acute) Hypertension (Chronic) Hypothyroidism (Chronic) IDDM (insulin dependent diabetes mellitus) (Chronic) Lumbar disc disease (Acute) Nephrolithiasis (Chronic) Neurogenic bladder (Acute) Obesity (BMI 30.0-34.9) (Acute) Right kidney stone (Acute) Septic shock (Inactive) Static encephalopathy (Acute) Steroid dependent (Acute) Uterine mass (Acute) likely a fibroid UTI (urinary tract infection) (Inactive) Surgical History (Updated 03/29/20 @ 14:13 by Yojana Osorio MD) Abnormal cholangiogram (Acute) H/O cervical spine surgery (Acute) H/O foot surgery (Acute) H/O wrist surgery (Acute) History of extraction of renal calculus (Acute) 12/13/2018 - [facility] History of hip surgery (Acute) right History of lumbosacral spine surgery (Acute) S/P cystoscopy with ureteral stent placement (Acute) [facility] 11/2018 Status post creation of urethral sling by suprapubic approach (Acute) Family History (Updated 03/29/20 @ 14:04 by Yojana Osorio MD) Mother Stroke Social History (Updated 03/29/20 @ 14:14 by Yojana Osorio MD) Smoking/Tobacco Use Status: Former Tobacco Use Alcohol Intake: former Substance use type: former substance user and IV drugs Housing: senior care Number of Children: 5 Education Level: elementary school Details: 6th grade, special ed, left school age 16. What is your relationship status?: Panel score (0-1 are the most socially isolated patients): 0 Do you feel safe at home: Yes Do you feel safe in your relationship?: Yes Exam Const General: cooperative and no acute distress Nutritional Appearance: obese Orientation: alert, oriented to person and oriented to place Resp Effort & Inspection: able to speak in complete sentences and decreased respiratory effort Auscultation: diminished lung sounds Cardio Rate: regular rate Rhythm: regular rhythm Heart Sounds: murmur GI Palpation: soft and no hepatosplenomegaly Auscultation: normal bowel sounds Psych Speech and Movement: restless Mood: dysthymic mood Affect: normal affect Attitude: cooperative Results Last Vital Signs Temp 97.9 F 03/29/20 19:25 Pulse 87 03/29/20 19:25 Resp 19 03/29/20 19:25 BP 119/73 03/29/20 19:25 Pulse Ox 98 03/29/20 19:25 Labs Result diagrams: 03/30/20 04:45 03/30/20 04:45 Labs: Laboratory Results - last 24 hr 03/29/20 03/29/20 03/29/20 06:38 06:38 08:00 WBC 4.86 D RBC 3.56 L Hgb 11.4 L Hct 34.8 L MCV 97.8 H MCH 32.0 MCHC 32.8 RDW 14.4 Plt Count 217 MPV 9.7 Immature Gran % 0.8 Neutrophils % 78.7 Lymphocytes % 15.6 Monocytes % 4.9 Eosinophils % 0.0 Basophils % 0.0 Absolute Neutrophils 3.82 Absolute Lymphocytes 0.76 L Absolute Monocytes 0.24 Absolute Eosinophils 0.00 Absolute Basophils 0.00 Sodium 141 Potassium 3.3 L Chloride 106 Carbon Dioxide 26.6 Anion Gap 8.4 BUN 7 Creatinine 0.59 Estimated GFR/1.73 m2 >= 60.00 Glucose 208 H D Lactate 1.8 H Calcium 8.4 L Magnesium 1.8 C-Reactive Protein 12.86 H
[2020-03-29] MEDS: Mirtazapine 15 MG TAB PO (22:51)
[2020-03-30] VITALS (8 sets, daily range): BP systolic 107–136; BP diastolic 61–79; PULSE 75–83; RESP 17–19; TEMP 35.8–36.7; O2SAT 95–100
--- NOTE | 2020-03-30 | DI.US_ITS ---
EXAM: US ABDOMEN CLINICAL HISTORY: pancreatitis, h/o cholecystitis in the past TECHNIQUE: Ultrasound performed using standard protocol. COMPARISON: CT CT ABDOMEN PELVIS W from 03/26/2020 FINDINGS: Exam is limited by patient's inability to cooperate due to sedation. Exam is also limited by patien t body habitus. The Liver is enlarged, measuring 18 cm in length. It shows diffuse fatty infiltration. No biliary dilat ation is seen. Multiple stones are noted within the gallbladder. There is no gallbladder wall thickening, perichole cystic fluid or sonographic Lindsay sign. There is no abnormal gallbladder distention. The pancreas was obscured by bowel gas. The aorta was also obscured. A 6 millimeter stone is seen in the mid right kidney. There is no hydronephrosis. Left kidney is un remarkable. IMPRESSION: Cholelithiasis. No findings to suggest acute cholecystitis. Hepatic steatosis. DATA REPOSITORY:
--- NOTE | 2020-03-30 | DI.RAD_ITS ---
EXAM: 2D digital imaging was performed. CLINICAL HISTORY: abdominal pain, concern for ileus. COMPARISON: CT CT ABDOMEN PELVIS W from 03/26/[address] BRAIN NECK CTA from 03/30/2020 TECHNIQUE: Supine and upright views of the abdomen performed. The exam is limited by the patient's body habitus. FINDINGS: BOWEL GAS PATTERN: Mild diffuse gaseous distention of small bowel loops. A large amount of stool is again noted in the rectum. A moderate quantity of stool is seen elsewhere. There is small amount of residual contrast from in the descending colon related to the previous CT.. CALCIFICATIONS: Calcifications project in the region of the right kidney.. OSSEOUS STRUCTURES: Normal for age. No free air is seen beneath the diaphragm. The visualized portions of the heart and lungs are unrema rkable. IMPRESSION: Large amount of stool in the rectum. MildDiffuse small bowel dilatation. DATA REPOSITORY: RADIATION DOSE DELIVERED:
[2020-03-30] MEDS: Lactated Ringers 1,000 ML 150 ML IV (01:53)
[2020-03-30 05:13] LABS: Absolute Basophil Count 0.02 k/cumm (0.0-0.2); Absolute Eosinophil Count 0.03 k/cumm (0.0-0.7); Absolute Lymphocyte Count 2.78 k/cumm (1.2-3.4); Absolute Monocyte Count 0.57 k/cumm (0.11-0.7); Basophils % 0.3; Eosinophils % 0.4; HCT 33.8 % (36.0-46.0); HGB 10.9 g/dL (12.0-15.5); Immature Grans % 1.4 %; Lymphocytes % 39.2; Mean Corp. HGB Concentration 32.2 g/dL (32.0-36.0); Mean Platelet Volume 8.8 fL (8.0-11.0); Neutrophils % 50.7; Platelet Count 258 x1000/uL (130-400); RBC 3.52 m/cumm (4.00-5.20); RBC Distribution Width 14.3 % (11.7-14.6)
[2020-03-30 05:18] LABS: Vancomycin, Trough 16.1 ug/mL (10.0-20.0)
[2020-03-30] MEDS: Levothyroxine 125 MCG TAB PO (05:21)
[2020-03-30] MEDS: Heparin 5,000 UNITS/ML VIAL 5000 UNITS SC ×3 (05:21→21:39)
[2020-03-30] MEDS: Hydrocortisone SOD SUC. 100 MG VIAL 50 MG IVP ×3 (05:22→21:33)
[2020-03-30 05:35] LABS: ALT 6 U/L (14-59); AST 20 U/L (15-37); Albumin 2.2 g/dL (3.4-5.0); Alkaline Phosphatase 55 U/L (46-116); Bilirubin, Direct 0.06 mg/dL (0.00-0.20); Bilirubin, Total 0.2 mg/dL (0.2-1.0); C-Reactive Protein 5.02 mg/dL (0.0-0.3); Lipase 421 U/L (73-393); Magnesium 1.5 mg/dL (1.8-2.4); Total Protein 5.7 g/dL (6.4-8.2)
[2020-03-30 05:43] LABS: Anion Gap 8.8 mmol/L (3-11); BUN 4 mg/dL (7-18); CO2 29.2 mmol/L (21.0-32.0); CREATININE 0.53 mg/dL (0.55-1.02); Calcium 8.4 mg/dL (8.5-10.1); Chloride 108 mmol/L (98-107); Glucose 126 mg/dL (74-106); Sodium 146 mmol/L (136-145)
[2020-03-30 05:46] LABS: Potassium 2.8 mmol/L (3.5-5.1)
[2020-03-30] MEDS: VANCOMYCIN 1,000 MG in Normal Saline 250 ML 167 MG IV ×2 (06:09→17:24)
[2020-03-30] MEDS: Polyethylene Glycol 3350 17 GM PACKET PO ×2 (08:31→19:41)
[2020-03-30] MEDS: buPROPion-XL 150 MG TABCR 450 MG PO (08:31)
[2020-03-30] MEDS: Acetaminophen 325 MG TAB 650 MG PO (08:32)
[2020-03-30] MEDS: QUEtiapine 100 MG TAB PO ×3 (08:33→19:42)
[2020-03-30] MEDS: traZODone 50 MG TAB 25 MG PO ×2 (08:34→19:42)
[2020-03-30] MEDS: Aspirin 81 MG CHEW PO (08:35)
[2020-03-30] MEDS: Carbidopa 25/Levodopa 100 TAB PO ×4 (08:35→19:42)
[2020-03-30] MEDS: Multivitamin TAB 1 TAB PO (08:35)
[2020-03-30] MEDS: predniSONE 5 MG TAB 2.5 MG PO (08:36)
[2020-03-30] MEDS: Magnesium Chloride 64 MG TABCR PO ×2 (08:36→19:42)
[2020-03-30] MEDS: Pantoprazole 40 MG VIAL IVP (08:37)
[2020-03-30] MEDS: Normal Saline Flush 10 ML SYR IVP (08:38)
[2020-03-30] MEDS: Normal Saline 500 ML 30 ML IV (08:41)
[2020-03-30] MEDS: cefTRIAXone 1 GM/50 ML BAG IVPB (08:42)
[2020-03-30] MEDS: lamoTRIgine 25 MG TAB 50 MG PO ×2 (09:01→19:42)
[2020-03-30] MEDS: Potassium Chloride 20 MEQ TABCR 40 MEQ PO ×3 (09:01→19:42)
[2020-03-30] MEDS: Insulin Aspart 300 UNITS/3 ML PEN SC ×2 (09:02→12:11)
[2020-03-30] MEDS: MAGNESIUM SULFATE 4 GM/100 ML BAG IVPB (09:45)
--- NOTE | 2020-03-30 14:00 | DI.CT_ITS ---
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 TECHNIQUE: Imaging Protocol: Axial CT angiography was performed with multi-slice acquisition and mu lti-planar and/or 3D reconstructions. CONTRAST MATERIAL: Intravenous: Omnipaque 350 Contrast volume:structured data in ml COMPARISON: MR MRI - BRAIN WO CONTRAST from 08/09/[address] ABDOMEN PELVIS W from 03/26/2020 FINDINGS: CT Head W/O: Ventricles and Extra axial spaces: Patent cavum septum pellucidum, anatomic variant is again noted. There is stable ventricular dilatation. Hemorrhage: None. Cerebral parenchyma: Stable atrophy. 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 Old left basal ganglia inf arcts. No acute infarct. Midline shift: None. Brainstem/Cerebellum: Atrophy. Calvarium: Normal. Visualized Paranasal sinuses/Mastoids: Clear. Soft Tissues: Unremarkable. CTA Brain W: Internal Carotid Arteries: Petrous: Normal. Cavernous: Normal. Cerebral: Normal. Middle Cerebral Arteries: Right: No aneurysm, occlusion or significant stenosis. Left: No aneurysm, occlusion or significant stenosis. Anterior Cerebral Arteries: Right: No aneurysm, occlusion or significant stenosis. Left: No aneurysm, occlusion or significant stenosis. Posterior cerebral Arteries: Right: No aneurysm, occlusion or significant stenosis. Left: No aneurysm, occlusion or significant stenosis. Vertebral Arteries: Right: No aneurysm, occlusion or significant stenosis. Left: No aneurysm, occlusion or significant stenosis. Basilar Artery: No aneurysm, occlusion or significant stenosis. CTA Neck W: Anterior fusion hardware is seen from C2 through C7 which creates some streak artifact. Common Carotid: No significant atherosclerotic changes. Right: No aneurysm, occlusion or significant stenosis. Left: No aneurysm, occlusion or significant stenosis. External Carotid: Right: No aneurysm, occlusion or significant stenosis. Left: No aneurysm, occlusion or significant stenosis. Internal Carotid: Right: No aneurysm, occlusion or significant stenosis. Left: No aneurysm, occlusion or significant stenosis. Vertebral Artery: Right: No aneurysm, occlusion or significant stenosis. Left: No aneurysm, occlusion or significant stenosis. Lung Apices: Normal. Bones: Anterior fusion hardware is seen from C2 through C7. Soft Tissues: Normal. IMPRESSION: 1. Normal CTA examination of the [place]. 2. Stable atrophy and ventricular dilatation. No acute infarct. 3. Normal CTA examination of the neck. No significant atherosclerotic plaque or stenosis. RADIATION DOSE DELIVERED: Total DLP DATA REPOSITORY: All CT scans at this facility are submitted to the National Radiology Data Registry (NRDR) Dose Index Registry (DIR) with the [employer] (ACR). RADIATION OPTIMIZATION: All CT scans at this facility use at least one of these dose optimization te chniques: automated exposure control; mA and/or kV adjustment per patient size (includes targeted exa ms where dose is matched to clinical indication); or iterative reconstruction.
[2020-03-30] MEDS: Omnipaque 350 MG/ML 100 ML BTL IJ (14:20)
--- NOTE | 2020-03-30 15:18 | PDOC.CMPRO ---
- If Service Date Differs Date of service: 03/30/20 Time of Service: 15:18 Care Management Progress Note S/O: Ginger was lying in bed when CM met with her. She stated that she was still not feeling well today, and still feels like she is not having enough food. Per report, she was made NPO due to her abdominal ultrasound today. Her diet will likely be advanced slowly to see if she can tolerate it. Palliative came to see her and after discussion, she decided to change her code status. CM will continue to follow. A: Ginger is a 59 year old female admitted to [facility] 03/26/20 for Acute Pancreatitis. P: Ginger will return to the [facility] when ready per MD, she will transport via ambulance at time of discharge; coordinated by NITESH.
--- NOTE | 2020-03-30 15:34 | W.PM.PROGNOT ---
Date of Service Date of service: 03/30/20 Time of Service: 15:35 Assessment and Plan Assessment and plan (1) UTI (urinary tract infection): Status: Acute Assessment and plan: Polymicrobial, due to E. Coli and another GNR - speciation pending. Likely present on admission, though this could not be verified as the UA ordered on admission is not in the system. On empiric vancomycin/ceftriaxone (day 3) and clinically improving. Continue steroid taper. Concern for a struvite stone - await speciation on the urine culture. If proteus/klebsiela, struvite stone is likely. 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 Appreciate urology consult. (2) Hypotension: Status: Resolved Assessment and plan: Due to acute on chronic adrenal insufficiency in setting of impending septic shock due to the above UTI. Resolved with stress dose steroids and abx - taper steroids carefully. D/c IVF. (3) Acute pancreatitis: Status: Acute Assessment and plan: Reports abdominal pain which is worse today. Make NPO. Obtain KUB - ?ileus. Obtain MRCP as does have choledocolithiasis. May need repeat CT. Still has gall stones on US. Discussed with neuro - d/c valproic acid, as it was likely not used for a neurological d/o and can worsen severity of pancreatitis. Right now, we have no actual evidence that the patient has a h/o seizures. (4) Constipation: Status: Resolved Assessment and plan: Resolved. C.Diff negative. When returns to [place], will need scheduled bowel regimen. (5) Bipolar 1 disorder: Status: Chronic Assessment and plan: Currently well managed, but valporic acid could have been helping with this too. D/c valproic acid. May require inpatient vs outpatient psychiatry consult. (6) Ambulatory dysfunction: Status: Chronic Assessment and plan: PT consulted (7) Chronic chest pain: Status: Chronic Assessment and plan: Continue tylenol/heat. 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 The patient fell out of follow up with rheum. Will attempt to reconnect her with them on discharge. Hold cellcept. CTA head/neck today shows no evidence of vasculitis. Taper steroids. Additionally, there was a mention of hepatitic C in her hx at [facility] - could it have contributed to vasculitis? Will repeat hepatitis labs. (9) DVT prophylaxis: Status: Acute Assessment and plan: heparin [place] (10) Discharge planning issues: Status: Acute Assessment and plan: DNR/DNI - code status changed with palliative care. Subjective Subjective Interval history since last seen: Reports occasional dizziness, though not right now. Reports chest pain (the same, chronic), shortness of breath (again, the same), abdominal pain (epigastric as well as LUQ and today a little in RUQ), and nausea. Has had multiple BM's and is passing flatus. C.Diff negative. Exam Narrative Exam Narrative: General: Obese female Who looks better to me from mental status stand point, A&Ox3, but whose abdomen is more distended today HEENT: EOMI, MMM, edentuous Heart: RRR, no m/r/g Lungs: CTAB Abdomen: soft, but visibly more distended today, tender in epigastrium as well as LUQ and LLQ, + hyperactie BS Extremities: trace edema BLE's Objective Objective Clinical Data: Abnormal lab results 03/30/20 03/30/20 03/30/20 Range/Units 04:45 04:45 04:45 RBC 3.52 L (4.00-5.20) m/cumm Hgb 10.9 L (12.0-15.5) g/dL Hct 33.8 L (36.0-46.0) % MCV 96.0 H (80-95) fL Sodium 146 H (136-145) mmol/L Potassium 2.8 L* (3.5-5.1) mmol/L Chloride 108 H (98-107) mmol/L BUN 4 L (7-18) mg/dL Creatinine 0.53 L (0.55-1.02) mg/dL Glucose 126 H D (74-106) mg/dL Calcium 8.4 L (8.5-10.1) mg/dL Magnesium 1.5 L (1.8-2.4) mg/dL ALT 6 L (14-59) U/L C-Reactive Protein 5.02 H (0.0-0.3) mg/dL Total Protein 5.7 L (6.4-8.2) g/dL Albumin 2.2 L (3.4-5.0) g/dL Lipase 421 H (73-393) U/L Vital Signs Temperature 36.3 C L 03/30/20 11:30 Temperature Source Tympanic 03/30/20 11:30 Pulse 83 03/30/20 11:30 Pulse Rhythm Regular 03/30/20 13:13 Respiratory Rate 17 03/30/20 11:30 Respiratory Effort Non-Labored 03/30/20 13:13 Respiratory Depth Normal 03/30/20 13:13 Respiratory Pattern Normal 03/30/20 13:13 Blood Pressure 107/69 03/30/20 11:30 Blood Pressure Position Sitting 03/26/20 12:09 Pulse Oximetry 95 03/30/20 11:50 Oxygen Delivery Method Nasal Cannula 03/30/20 11:50 Oxygen Flow Rate 1 03/30/20 11:50 Pain Level 0 03/30/20 14:55 Comment 03/30/20 14:55 Intake & Output 03/29/20 03/30/20 03/30/20 23:59 11:59 23:59 Intake Total 2792.5 / 5510.0 3023.0 / 3743.0 720 / 3743.0 Balance 2792.5 / 5510.0 3023.0 / 3743.0 720 / 3743.0 Weight 82.3 kg Intake: IV 2542.5 / 5010.0 1943.0 / 2043.0 100 / 2043.0 Oral 250 / 500 1080 / 1700 620 / 1700 Other: Urine Color Yellow Yellow Yellow Urine Appearance Clear Clear Urine Odor Normal Normal Comment incontinent grossly incontinent. Stool Size Large Stool Characteristics Soft Liquid Brown Voiding Methods Diaper Diaper Diaper Incontinent Incontinent Incontinent Laboratory Results WBC 7.10 k/cumm (4.4-10.8) D 03/30/20 04:45 RBC 3.52 m/cumm (4.00-5.20) L 03/30/20 04:45 Hgb 10.9 g/dL (12.0-15.5) L 03/30/20 04:45 Hct 33.8 % (36.0-46.0) L 03/30/20 04:45 MCV 96.0 fL (80-95) H 03/30/20 04:45 MCH 31.0 pg (27.0-33.0) 03/30/20 04:45 MCHC 32.2 g/dL (32.0-36.0) 03/30/20 04:45 RDW 14.3 % (11.7-14.6) 03/30/20 04:45 Plt Count 258 x1000/uL (130-400) 03/30/20 04:45 MPV 8.8 fL (8.0-11.0) 03/30/20 04:45 Immature Gran % 1.4 % 03/30/20 04:45 Neutrophils % 50.7 03/30/20 04:45 Band Neutrophils % Cancelled 03/28/20 07:12 Lymphocytes % 39.2 03/30/20 04:45 Atypical Lymphs % Cancelled 03/28/20 07:12 Monocytes % 8.0 03/30/20 04:45 Eosinophils % 0.4 03/30/20 04:45 Basophils % 0.3 03/30/20 04:45 Metamyelocytes % Cancelled 03/28/20 07:12 Myelocytes % Cancelled 03/28/20 07:12 Promyelocytes % Cancelled 03/28/20 07:12 Absolute Neutrophils 3.60 k/cumm (1.2-6.7) 03/30/20 04:45 Absolute Lymphocytes 2.78 k/cumm (1.2-3.4) 03/30/20 04:45 Absolute Monocytes 0.57 k/cumm (0.11-0.7) 03/30/20 04:45 Absolute Eosinophils 0.03 k/cumm (0.0-0.7) 03/30/20 04:45 Absolute Basophils 0.02 k/cumm (0.0-0.2) 03/30/20 04:45 Nucleated RBCs Cancelled 03/28/20 07:12 Differential Comment Cancelled 03/28/20 07:12 Other Cell Type Cancelled 03/28/20 07:12 RBC Morphology Cancelled 03/28/20 07:12 Polychromasia Cancelled 03/28/20 07:12 Hypochromasia Cancelled 03/28/20 07:12 Poikilocytosis Cancelled 03/28/20 07:12 Basophilic Stippling Cancelled 03/28/20 07:12 Anisocytosis Cancelled 03/28/20 07:12 Microcytosis Cancelled 03/28/20 07:12 Macrocytosis Cancelled 03/28/20 07:12 Spherocytes Cancelled 03/28/20 07:12 Target Cells Cancelled 03/28/20 07:12 Tear Drop Cells Cancelled 03/28/20 07:12 Ovalocytes Cancelled 03/28/20 07:12 Stomatocytes Cancelled 03/28/20 07:12 [place] Bodies Cancelled 03/28/20 07:12 [place] Cells Cancelled 03/28/20 07:12 Acanthocytes (Spur) Cancelled 03/28/20 07:12 Schistocytes Cancelled 03/28/20 07:12 Sodium 146 mmol/L (136-145) H 03/30/20 04:45 Potassium 2.8 mmol/L (3.5-5.1) L* 03/30/20 04:45 Chloride 108 mmol/L (98-107) H 03/30/20 04:45 Carbon Dioxide 29.2 mmol/L (21.0-32.0) 03/30/20 04:45 Anion Gap 8.8 mmol/L (3-11) 03/30/20 04:45 BUN 4 mg/dL (7-18) L 03/30/20 04:45 Creatinine 0.53 mg/dL (0.55-1.02) L 03/30/20 04:45 Estimated GFR/1.73 m2 >= 60.00 (mL/min/1.73m2) 03/30/20 04:45 Glucose 126 mg/dL (74-106) H D 03/30/20 04:45 Lactate 1.8 mmol/L (0.6-1.4) H 03/29/20 08:00 Calcium 8.4 mg/dL (8.5-10.1) L 03/30/20 04:45 Magnesium 1.5 mg/dL (1.8-2.4) L 03/30/20 04:45 Total Bilirubin 0.2 mg/dL (0.2-1.0) 03/30/20 04:45 Conjugated Bilirubin 0.06 mg/dL (0.00-0.20) 03/30/20 04:45 AST 20 U/L (15-37) 03/30/20 04:45 ALT 6 U/L (14-59) L 03/30/20 04:45 Alkaline Phosphatase 55 U/L (46-116) 03/30/20 04:45 C-Reactive Protein 5.02 mg/dL (0.0-0.3) H 03/30/20 04:45 Total Protein 5.7 g/dL (6.4-8.2) L 03/30/20 04:45 Albumin 2.2 g/dL (3.4-5.0) L 03/30/20 04:45 Triglycerides 133 mg/dL (<150) 03/27/20 09:53 Total Cholesterol 150 mg/dL (<200) 03/27/20 09:53 LDL Cholesterol, Calc 72 mg/dL (<100) 03/27/20 09:53 HDL Cholesterol 52 mg/dL (40-60) 03/27/20 09:53 Lipase 421 U/L (73-393) H 03/30/20 04:45 TSH 1.40 uIU/mL (0.36-3.74) 03/30/20 04:45 Urine Color Yellow (Yellow) 03/27/20 20:50 Urine Clarity Cloudy (Clear) 03/27/20 20:50 Urine pH 7.0 (5-8) 03/27/20 20:50 Ur Specific [place] 1.020 (1.005-1.025) 03/27/20 20:50 Urine Protein 30 mg/dL (Negative) H 03/27/20 20:50 Urine Ketones Negative mg/dL (Negative) 03/27/20 20:50 Urine Blood Moderate (Negative) H 03/27/20 20:50 Urine Nitrite Positive (Negative) H 03/27/20 20:50 Urine Bilirubin Negative (Negative) 03/27/20 20:50 Urine Urobilinogen 1.0 EU/dL (Up TO 0.2) H 03/27/20 20:50 Ur Leukocyte Esterase Large (Negative) H 03/27/20 20:50 Urine RBC 10-20 HPF (0-2) H 03/27/20 20:50 Urine WBC >50 HPF (0-5) H 03/27/20 20:50 Ur Epithelial Cells Negative HPF (Negative) 03/27/20 20:50 Urine Crystals Negative HPF (Negative) 03/27/20 20:50 Urine Bacteria Many HPF (Negative) 03/27/20 20:50 Urine Casts Negative LPF (Negative) 03/27/20 20:50 Urine Mucus Negative (Negative) 03/27/20 20:50 Urine Other Moderate renal (Negative) 03/27/20 20:50 Ur Culture Indicated? Yes 03/27/20 20:50 Urine Glucose Negative mg/dL (Negative) 03/27/20 20:50 Vancomycin Trough 16.1 ug/mL (10.0-20.0) 03/30/20 04:45 COVID-19 PCR Negative (Negative) 03/26/20 17:15 Nasopharyn COVID-19 PCR Not Applicable 03/26/20 17:15 Ref Test Perform Site [facility] 03/26/20 17:15 Objective Narrative Objective Narrative: CTA head/neck: 1. Normal CTA examination of the [place]. 2. Stable atrophy and ventricular dilatation. No acute infarct. 3. Normal CTA examination of the neck. No significant atherosclerotic plaque or stenosis. US abdomen: Cholelithiasis. No findings to suggest acute cholecystitis. Hepatic steatosis.
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
--- NOTE | 2020-03-30 17:58 | DI.VRAD_ITS ---
PROCEDURE INFORMATION: Exam: XR Abdomen, 1 View Exam date and time: 03/30/2020 4:22 PM Age: 59 years old Clinical indication: Other: Abdominal pain, concern for ileus TECHNIQUE: Imaging protocol: XR of the abdomen. Views: Frontal supine view of the abdomen. 1 View. COMPARISON: US ABDOMEN 03/30/2020 11:08 AM FINDINGS: Lungs: The visualized portions of the lung bases demonstrate no acute disease. Gastrointestinal tract: Diffusely air-filled loops of bowel are seen throughout the abdomen. There is excessive colonic stool content. Intraperitoneal space: No large pneumoperitoneum. Bones/joints: No acute abnormality or aggressive osseous lesion. Other findings: Question of hepatomegaly. No mass effect. IMPRESSION: Findings favor mild ileus versus bloating. Consider follow-up films if clinically warranted. Dictated and Authenticated by: Earl Kinsey MD. Ordering:LAURA Dial MD
[2020-03-30] MEDS: Normal Saline 1,000 ML 75 ML IV (19:25)
[2020-03-30] MEDS: Mirtazapine 15 MG TAB PO (21:31)
--- NOTE | 2020-03-31 | DI.RAD_ITS ---
EXAM: XR ABDOMEN FLAT UPRIGHT CLINICAL HISTORY: ileus TECHNIQUE: 2D digital imaging was performed. COMPARISON: CR,XR XR ABDOMEN FLAT PLATE from 03/30/2020 FINDINGS: A the exam is limited by the patient's body habitus. Majority of the chest is occluded on the uprig ht view. The lungs are grossly clear where visualized. No free air is seen. A large amount of stoo l is again noted in the rectum. A small amount of contrast is seen in the distal descending colon. There is decreased small bowel distention when compared to the previous day's exam. IMPRESSION: Continued presence of a large quantity of stool in the rectum. Decreased small bowel distention.
[2020-03-31] MEDS: VANCOMYCIN 1,000 MG in Normal Saline 250 ML 167 MG IV (01:49)
[2020-03-31 04:08] VITALS: BP 120/77; PULSE 75; RESP 19; TEMP 36.9; O2SAT 97
[2020-03-31] MEDS: Hydrocortisone SOD SUC. 100 MG VIAL 50 MG IVP ×2 (05:45→17:44)
[2020-03-31] MEDS: Levothyroxine 125 MCG TAB PO (05:45)
[2020-03-31] MEDS: Heparin 5,000 UNITS/ML VIAL 5000 UNITS SC ×3 (05:46→21:37)
[2020-03-31 07:31] LABS: AST 26 U/L (15-37); Total Protein 6.3 g/dL (6.4-8.2)
[2020-03-31 07:35] LABS: BUN 4 mg/dL (7-18); C-Reactive Protein 2.39 mg/dL (0.0-0.3); CREATININE 0.52 mg/dL (0.55-1.02); Calcium 8.5 mg/dL (8.5-10.1); Chloride 108 mmol/L (98-107); Glucose 145 mg/dL (74-106); Magnesium 2.2 mg/dL (1.8-2.4); Sodium 143 mmol/L (136-145)
[2020-03-31 07:53] LABS: ALT 6 U/L (14-59); Albumin 2.4 g/dL (3.4-5.0); Alkaline Phosphatase 58 U/L (46-116); Bilirubin, Total 0.2 mg/dL (0.2-1.0)
[2020-03-31 07:55] LABS: Bilirubin, Direct 0.07 mg/dL (0.00-0.20)
[2020-03-31 08:00] VITALS: BP 137/88; PULSE 72; RESP 17; TEMP 36; O2SAT 99
[2020-03-31] MEDS: lamoTRIgine 25 MG TAB 50 MG PO (08:01)
[2020-03-31] MEDS: Magnesium Chloride 64 MG TABCR PO ×2 (08:02→19:19)
[2020-03-31] MEDS: QUEtiapine 100 MG TAB PO ×3 (08:02→19:19)
[2020-03-31] MEDS: buPROPion-XL 150 MG TABCR 450 MG PO (08:02)
[2020-03-31] MEDS: traZODone 50 MG TAB 25 MG PO ×2 (08:03→19:19)
[2020-03-31] MEDS: Acetaminophen 325 MG TAB 650 MG PO (08:04)
[2020-03-31] MEDS: predniSONE 5 MG TAB 2.5 MG PO (08:05)
[2020-03-31] MEDS: Multivitamin TAB 1 TAB PO (08:06)
[2020-03-31] MEDS: Carbidopa 25/Levodopa 100 TAB PO ×4 (08:06→19:19)
[2020-03-31] MEDS: Aspirin 81 MG CHEW PO (08:06)
[2020-03-31] MEDS: Pantoprazole 40 MG VIAL IVP (08:07)
[2020-03-31] MEDS: Insulin Aspart 300 UNITS/3 ML PEN SC ×3 (08:08→21:39)
[2020-03-31] MEDS: Ondansetron 4 MG/2 ML VIAL IVP (08:08)
[2020-03-31] MEDS: cefTRIAXone 1 GM/50 ML BAG IVPB (08:11)
[2020-03-31] MEDS: Normal Saline Flush 10 ML SYR IVP ×2 (08:13→13:54)
[2020-03-31 10:11] LABS: ESR 49 mm/hr (0-30)
[2020-03-31 10:36] LABS: HBs Antibody, Qual Negative (See Note); HBs Antibody, Quant <3.1 mIU/mL (See Note); Hepatitis B Core Antibody Negative (Negative); Hepatitis B surface Ag Negative (Negative); Hepatitis C Ab w Rflx HCV PCR Reactive (Negative)
[2020-03-31 11:35] VITALS: BP 121/53; PULSE 71; RESP 16; TEMP 36.2; O2SAT 99
[2020-03-31 11:47] LABS: Vancomycin, Trough 19.1 ug/mL (10.0-20.0)
--- NOTE | 2020-03-31 12:58 | W.PSYCHCONSU ---
Date of service: 03/31/20 Time of Service: 13:00 History of Present Illness History of Present Illness Chief Complaint: medication management Narrative: Dr. Yojana Osorio requested a psychiatric consultation for Ginger Barrera for medication suggestions in light of depakote needing to be discontinued due to acute pancreatitis. HPI: -I am aware of this patient from having met her within the last year at [facility] where she lives. At that time I recommended increase of her quetiapine to treat acute psychotic depression with delusions which was reportedly helpful. My note from that outpatient psychiatric consultation indicates she reported to me she has a history of seizures. I was not sure if the antiepileptics were prescribed for that or for bipolar affective disorder as well. I was not sure if her depressive symptoms were bipolar depression or major depression with psychosis. She has a very significant trauma history but her delusions (which she had partial insight into being delusions) were not congruent with her history and and she did not think they were PTSD related. At the time of this admission per the H&P of Jc Lea MD, she was having abdominal symptoms with pancreatitis on ultrasound. After admission she was found to have an acute urinary tract infection for which she is currently being treated. Assessment and Plan Assessment and plan (1) Bipolar 1 disorder: Status: Chronic Assessment and plan: Ginger Lowery is a 59 year old female with past psychiatric history of bipolar affective disorder and episode of psychotic depression within the last year for which quetiapine was started and titrated up to 100mg three times daily who was admitted to [facility] for acute pancreatitis and depakote has since been stopped. Dr. Osorio requested consultation for help in managing her psychaitric meds. Medications: - continue to d/c depakote - increase lamotrigine now from 50mg twice daily to 50mg in the morning and 100mg at night. In two weeks increase lamotrigine to 100mg twice daily. this increase is to provide sufficient mood stabilization and to prevent depressive episode relapse. - quetiapine can cause pancreatitis and may also be a culprit in her presentation, however, given that it has been helpful in reducing psychotic symptoms, do not reduce this dose unless pancreatitis worsens or does not resolve. I did not see that patient for this consultation but reviewed the chart, including Dr. Stanford's neurology consultation, and discussed my recommendations with Dr. Osorio by phone who is in agreement. Should the patient's mental health worsen such that more depressive or psychotic or manic symptoms appear we can try to arrange a video visit between me and Ginger Barrera. Thank you very much for including me in Ginger's care. [facility] Medical History [place] (acute kidney injury) (Inactive) Anxiety (Chronic) Bipolar 1 disorder (Acute) Cholelithiasis with acute cholecystitis (Acute) s/p cholecystostomy and stone extraction in 2014 ([facility]), tube now pulled. 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 insufficiency (Acute) [employer] vasculitis (Chronic) Complicated UTI (urinary tract infection) (Inactive) Diverticulosis (Acute) Hemiparesis affecting right side as late effect of cerebrovascular accident (CVA) (Acute) Hepatitis C (Chronic) History of multiple cerebrovascular accidents (CVAs) (Acute) Hypertension (Chronic) Hypothyroidism (Chronic) IDDM (insulin dependent diabetes mellitus) (Chronic) Lumbar disc disease (Acute) Nephrolithiasis (Chronic) Neurogenic bladder (Acute) Obesity (BMI 30.0-34.9) (Acute) Right kidney stone (Acute) Septic shock (Inactive) Static encephalopathy (Acute) Steroid dependent (Acute) Uterine mass (Acute) likely a fibroid UTI (urinary tract infection) (Inactive) Surgical History Abnormal cholangiogram (Acute) H/O cervical spine surgery (Acute) H/O foot surgery (Acute) H/O wrist surgery (Acute) History of extraction of renal calculus (Acute) 12/13/2018 - [facility] History of hip surgery (Acute) right History of lumbosacral spine surgery (Acute) S/P cystoscopy with ureteral stent placement (Acute) [facility] 11/2018 Status post creation of urethral sling by suprapubic approach (Acute) Family History Mother Stroke Social History Smoking/Tobacco Use Status: Former Tobacco Use Alcohol Intake: former Substance use type: former substance user and IV drugs Housing: assisted Number of Children: 5 Education Level: elementary school Details: 6th grade, special ed, left school age 16. What is your relationship status?: Panel score (0-1 are the most socially isolated patients): 0 Do you feel safe at home: Yes Do you feel safe in your relationship?: Yes Results Last Vital Signs Temp 36.2 C L 03/31/20 11:35 Pulse 71 03/31/20 11:35 Resp 16 03/31/20 11:35 BP 121/53 L 03/31/20 11:35 Pulse Ox 99 03/31/20 11:35 Labs Result diagrams: 03/30/20 04:45 03/31/20 06:13 Labs: Laboratory Results - last 24 hr 03/30/20 03/31/20 03/31/20 04:45 06:13 06:13 ESR 49 H Sodium 143 Potassium 4.0 D Chloride 108 H Carbon Dioxide 30.0 Anion Gap 5.0 BUN 4 L Creatinine 0.52 L Estimated GFR/1.73 m2 >= 60.00 Glucose 145 H Calcium 8.5 Magnesium 2.2 Total Bilirubin Conjugated Bilirubin AST ALT Alkaline Phosphatase C-Reactive Protein 2.39 H Total Protein Albumin Vancomycin Trough Hep Bs Antigen Negative Hep Bs Antibody Negative Hep Bs Antibody, Quant <3.1 Hep B Core Total Ab Negative Hepatitis C Antibody Reactive A 03/31/20 03/31/20 06:13 11:15 ESR Sodium Potassium Chloride Carbon Dioxide Anion Gap BUN Creatinine Estimated GFR/1.73 m2 Glucose Calcium Magnesium Total Bilirubin 0.2 Conjugated Bilirubin 0.07 AST 26 ALT 6 L Alkaline Phosphatase 58 C-Reactive Protein Total Protein 6.3 L Albumin 2.4 L Vancomycin Trough 19.1 Hep Bs Antigen Hep Bs Antibody Hep Bs Antibody, Quant Hep B Core Total Ab Hepatitis C Antibody
--- NOTE | 2020-03-31 13:33 | DI.MRI_ITS ---
EXAM: MR ABDOMEN WO CLINICAL HISTORY: PANCREATITIS, CHOLELITHIASIS, ?CHOLEDOCHOLITHIASIS TECHNIQUE: Multiplanar multisequence MRA of the Abdomen with MRCP sequences was performed. COMPARISON: CT CT ABDOMEN PELVIS W from 03/26/2020 FINDINGS: There are trace bilateral pleural effusions. There is no pericardial effusion. The liver is mildly enlarged. No focal liver lesions are identified. There is a Phrygian cap at the fundus of the gallb ladder. Several small stones are noted in the gallbladder. There is no gallbladder wall thickening. There is no intra or extrahepatic biliary dilatation. No choledocholithiasis is visible. There is a small amount of fluid seen around the head of the pancreas and inferior portion of the liver. A s mall amount of fluid is seen anterior to the liver. There is stranding in the fat around the pancrea s and a mild amount of peripancreatic fluid. There is no drainable collection. The pancreatic duct is not dilated. The spleen is normal in size. The adrenals appear normal. There is no hydronephros is. The aorta is normal in diameter. IMPRESSION: Cholelithiasis. No biliary dilatation or choledocholithiasis. Pancreatitis with small amount of carlos rounding fluid. DATA REPOSITORY:
[2020-03-31 13:46] VITALS: O2SAT 99
[2020-03-31] MEDS: VANCOMYCIN 1,000 MG in Normal Saline 250 ML 166.667 MG IV (13:51)
[2020-03-31] MEDS: Normal Saline 1,000 ML 75 ML IV ×2 (13:58→15:53)
[2020-03-31] MEDS: Bisacodyl 10 MG SUPP PR (14:15)
--- NOTE | 2020-03-31 14:20 | CMPROGNOTE_ITS ---
- If Service Date Differs Date of service: 03/31/20 Time of Service: 14:20 Care Management Progress Note S/O: Ginger was lying in bed when CM met with her. She was on her way to her MRI, but CM spoke with her briefly. She stated that she isn't able to eat currently and she is very hungry. CM explained that she is NPO for the MRI, and that the MD will make the diet determination. Ginger also had a psychiatric consultation today regarding med management. CM will continue to follow. A: Ginger is a 59 year old female admitted to [facility] 03/26/20 for Acute Pancreatitis. P: Ginger will return to the [facility] when ready per MD, she will transport via ambulance at time of discharge; coordinated by CM. CM will continue to follow and support discharge planning considerations.
--- NOTE | 2020-03-31 15:16 | PGE_ITS ---
Date of Service Date of service: 03/31/20 Time of Service: 15:16 Assessment and Plan Assessment and plan (1) Ileus: Status: Acute (2) UTI (urinary tract infection): Status: Acute Assessment and plan: Polymicrobial, due to E. Coli and proteus - sensitivities for proteus are pending. Likely present on admission, though this could not be verified as the UA ordered on admission is not in the system. On empiric vancomycin/ceftriaxone (day 4) and clinically improving. D/c vancomycin. Given that the 2nd bug is proteus, struvite stone is a possibility - will discuss with urology. Continue steroid taper. (3) Hypotension: Status: Resolved Assessment and plan: Due to acute on chronic adrenal insufficiency in setting of impending septic shock due to the above UTI. Resolved with stress dose steroids and abx - taper steroids carefully. (4) Acute pancreatitis: Status: Acute Assessment and plan: Reports abdominal pain - better today. MRCP with pancreatitis, no choledocholithiasis. There is evidence of an ileus. Will give the patient a little bit more as far as clear liquids today - may have ronel carmen - she cannot moderate her intake. Depakote d/c'ed. Also discussed with psychiatry - seroquel, too, can cause pancreatitis. As the patient states she is improving, we will keep seroquel on for now. If her progress stalls, it may have to be discontinued and ECT would have to be thought of. (5) Constipation: Status: Resolved Assessment and plan: vs ileus. She was written for a suppository today. (6) Bipolar 1 disorder: Status: Chronic Assessment and plan: Currently well managed. Read discussion above re stopping depakote (causes pancreatitis). We will increase lamictal - evening dose increased to 100 mg today, am dose to stay @ 50 mg. In two weeks, am dose should also be increased to 100 mg. Seroquel could be causing pancreatitis as well - if d/c'ed, ECT needs to be considered. (7) Ambulatory dysfunction: Status: Chronic Assessment and plan: PT consulted (8) Chronic chest pain: Status: Chronic Assessment and plan: Continue tylenol/heat. 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 There is evidence of interim CVAs on CTA, per neurology (not acute/on this admission). This could argue that the patient's vasculitis could still be active. Will need to be re-plugged in with rheum/neuro. For now, still holding cellcept - will discuss with rheumatology when it would be safe to resume it. Taper steroids. Additionally, Hep C positive - could be contributing to vasculitis. Hep B negative on our check. She does not appear vaccinated and will need to be as outpatient. (10) DVT prophylaxis: Status: Acute Assessment and plan: heparin SC (11) Discharge planning issues: Status: Acute Assessment and plan: DNR/DNI - code status changed with palliative care. Subjective Subjective Interval history since last seen: Ms Barrera states that her abdomen feels a little better today. She denies dizziness, endorses chest pain (a little), denies shortness of breath and nausea. She tells me that she had just received a suppository - I checked with nursing, who said she did not. She is demanding of food (NPO since yesterday). MRCP today - no choledocolithiasis. Exam Narrative Exam Narrative: General: Obese female Who looks better, A&Ox3 HEENT: EOMI, MMM, edentuous Heart: RRR, no m/r/g Lungs: CTAB Abdomen: soft, less distended today, tender in epigastrium as well as LUQ and LLQ Extremities: +1 edema BLE's Objective Objective Clinical Data: Abnormal lab results 03/30/20 03/31/20 03/31/20 Range/Units 04:45 06:13 06:13 ESR 49 H (0-30) mm/hr Chloride 108 H (98-107) mmol/L BUN 4 L (7-18) mg/dL Creatinine 0.52 L (0.55-1.02) mg/dL Glucose 145 H (74-106) mg/dL ALT (14-59) U/L C-Reactive Protein 2.39 H (0.0-0.3) mg/dL Total Protein (6.4-8.2) g/dL Albumin (3.4-5.0) g/dL Hepatitis C Antibody Reactive A (Negative) 03/31/20 Range/Units 06:13 ESR (0-30) mm/hr Chloride (98-107) mmol/L BUN (7-18) mg/dL Creatinine (0.55-1.02) mg/dL Glucose (74-106) mg/dL ALT 6 L (14-59) U/L C-Reactive Protein (0.0-0.3) mg/dL Total Protein 6.3 L (6.4-8.2) g/dL Albumin 2.4 L (3.4-5.0) g/dL Hepatitis C Antibody (Negative) Vital Signs Temperature 36.2 C L 03/31/20 11:35 Temperature Source Temporal Artery Scan 03/31/20 11:35 Pulse 71 03/31/20 11:35 Pulse Rhythm Regular 03/31/20 07:26 Respiratory Rate 16 03/31/20 11:35 Respiratory Effort Non-Labored 03/31/20 07:26 Respiratory Depth Normal 03/30/20 23:40 Respiratory Pattern Normal 03/30/20 23:40 Blood Pressure 121/53 L 03/31/20 11:35 Blood Pressure Position Sitting 03/26/20 12:09 Pulse Oximetry 99 03/31/20 13:46 Oxygen Delivery Method Nasal Cannula 03/31/20 13:46 Oxygen Flow Rate 1.5 03/31/20 13:46 Pain Level 6 03/31/20 11:35 Comment 03/30/20 17:52 Intake & Output 03/30/20 03/31/20 03/31/20 23:59 11:59 23:59 Intake Total 985.5 / 4028.5 1338.75 / 1388.75 50 / 1388.75 Balance 985.5 / 4028.5 1338.75 / 1388.75 50 / 1388.75 Weight 82.3 kg Intake: IV 365.5 / 2328.5 1248.75 / 1298.75 50 / 1298.75 Oral 620 / 1700 90 / 90 Other: Urine Color Yellow Yellow Yellow Urine Appearance Clear Urine Odor Normal Comment Very incontinent. LARGE VOID Stool Size Smear Small Stool Characteristics Soft Soft Voiding Methods Diaper Diaper Diaper Incontinent Laboratory Results WBC 7.10 k/cumm (4.4-10.8) D 03/30/20 04:45 RBC 3.52 m/cumm (4.00-5.20) L 03/30/20 04:45 Hgb 10.9 g/dL (12.0-15.5) L 03/30/20 04:45 Hct 33.8 % (36.0-46.0) L 03/30/20 04:45 MCV 96.0 fL (80-95) H 03/30/20 04:45 MCH 31.0 pg (27.0-33.0) 03/30/20 04:45 MCHC 32.2 g/dL (32.0-36.0) 03/30/20 04:45 RDW 14.3 % (11.7-14.6) 03/30/20 04:45 Plt Count 258 x1000/uL (130-400) 03/30/20 04:45 MPV 8.8 fL (8.0-11.0) 03/30/20 04:45 Immature Gran % 1.4 % 03/30/20 04:45 Neutrophils % 50.7 03/30/20 04:45 Band Neutrophils % Cancelled 03/28/20 07:12 Lymphocytes % 39.2 03/30/20 04:45 Atypical Lymphs % Cancelled 03/28/20 07:12 Monocytes % 8.0 03/30/20 04:45 Eosinophils % 0.4 03/30/20 04:45 Basophils % 0.3 03/30/20 04:45 Metamyelocytes % Cancelled 03/28/20 07:12 Myelocytes % Cancelled 03/28/20 07:12 Promyelocytes % Cancelled 03/28/20 07:12 Absolute Neutrophils 3.60 k/cumm (1.2-6.7) 03/30/20 04:45 Absolute Lymphocytes 2.78 k/cumm (1.2-3.4) 03/30/20 04:45 Absolute Monocytes 0.57 k/cumm (0.11-0.7) 03/30/20 04:45 Absolute Eosinophils 0.03 k/cumm (0.0-0.7) 03/30/20 04:45 Absolute Basophils 0.02 k/cumm (0.0-0.2) 03/30/20 04:45 Nucleated RBCs Cancelled 03/28/20 07:12 Differential Comment Cancelled 03/28/20 07:12 Other Cell Type Cancelled 03/28/20 07:12 RBC Morphology Cancelled 03/28/20 07:12 Polychromasia Cancelled 03/28/20 07:12 Hypochromasia Cancelled 03/28/20 07:12 Poikilocytosis Cancelled 03/28/20 07:12 Basophilic Stippling Cancelled 03/28/20 07:12 Anisocytosis Cancelled 03/28/20 07:12 Microcytosis Cancelled 03/28/20 07:12 Macrocytosis Cancelled 03/28/20 07:12 Spherocytes Cancelled 03/28/20 07:12 Target Cells Cancelled 03/28/20 07:12 Tear Drop Cells Cancelled 03/28/20 07:12 Ovalocytes Cancelled 03/28/20 07:12 Stomatocytes Cancelled 03/28/20 07:12 Palomino-Laverne Bodies Cancelled 03/28/20 07:12 Mikki Cells Cancelled 03/28/20 07:12 Acanthocytes (Spur) Cancelled 03/28/20 07:12 Schistocytes Cancelled 03/28/20 07:12 ESR 49 mm/hr (0-30) H 03/31/20 06:13 Sodium 143 mmol/L (136-145) 03/31/20 06:13 Potassium 4.0 mmol/L (3.5-5.1) D 03/31/20 06:13 Chloride 108 mmol/L (98-107) H 03/31/20 06:13 Carbon Dioxide 30.0 mmol/L (21.0-32.0) 03/31/20 06:13 Anion Gap 5.0 mmol/L (3-11) 03/31/20 06:13 BUN 4 mg/dL (7-18) L 03/31/20 06:13 Creatinine 0.52 mg/dL (0.55-1.02) L 03/31/20 06:13 Estimated GFR/1.73 m2 >= 60.00 (mL/min/1.73m2) 03/31/20 06:13 Glucose 145 mg/dL (74-106) H 03/31/20 06:13 Lactate 1.8 mmol/L (0.6-1.4) H 03/29/20 08:00 Calcium 8.5 mg/dL (8.5-10.1) 03/31/20 06:13 Magnesium 2.2 mg/dL (1.8-2.4) 03/31/20 06:13 Total Bilirubin 0.2 mg/dL (0.2-1.0) 03/31/20 06:13 Conjugated Bilirubin 0.07 mg/dL (0.00-0.20) 03/31/20 06:13 AST 26 U/L (15-37) 03/31/20 06:13 ALT 6 U/L (14-59) L 03/31/20 06:13 Alkaline Phosphatase 58 U/L (46-116) 03/31/20 06:13 C-Reactive Protein 2.39 mg/dL (0.0-0.3) H 03/31/20 06:13 Total Protein 6.3 g/dL (6.4-8.2) L 03/31/20 06:13 Albumin 2.4 g/dL (3.4-5.0) L 03/31/20 06:13 Triglycerides 133 mg/dL (<150) 03/27/20 09:53 Total Cholesterol 150 mg/dL (<200) 03/27/20 09:53 LDL Cholesterol, Calc 72 mg/dL (<100) 03/27/20 09:53 HDL Cholesterol 52 mg/dL (40-60) 03/27/20 09:53 Lipase 421 U/L (73-393) H 03/30/20 04:45 TSH 1.40 uIU/mL (0.36-3.74) 03/30/20 04:45 Urine Color Yellow (Yellow) 03/27/20 20:50 Urine Clarity Cloudy (Clear) 03/27/20 20:50 Urine pH 7.0 (5-8) 03/27/20 20:50 Ur Specific Edmond 1.020 (1.005-1.025) 03/27/20 20:50 Urine Protein 30 mg/dL (Negative) H 03/27/20 20:50 Urine Ketones Negative mg/dL (Negative) 03/27/20 20:50 Urine Blood Moderate (Negative) H 03/27/20 20:50 Urine Nitrite Positive (Negative) H 03/27/20 20:50 Urine Bilirubin Negative (Negative) 03/27/20 20:50 Urine Urobilinogen 1.0 EU/dL (Up TO 0.2) H 03/27/20 20:50 Ur Leukocyte Esterase Large (Negative) H 03/27/20 20:50 Urine RBC 10-20 HPF (0-2) H 03/27/20 20:50 Urine WBC >50 HPF (0-5) H 03/27/20 20:50 Ur Epithelial Cells Negative HPF (Negative) 03/27/20 20:50 Urine Crystals Negative HPF (Negative) 03/27/20 20:50 Urine Bacteria Many HPF (Negative) 03/27/20 20:50 Urine Casts Negative LPF (Negative) 03/27/20 20:50 Urine Mucus Negative (Negative) 03/27/20 20:50 Urine Other Moderate renal (Negative) 03/27/20 20:50 Ur Culture Indicated? Yes 03/27/20 20:50 Urine Glucose Negative mg/dL (Negative) 03/27/20 20:50 Vancomycin Trough 19.1 ug/mL (10.0-20.0) 03/31/20 11:15 COVID-19 PCR Negative (Negative) 03/26/20 17:15 Nasopharyn COVID-19 PCR Not Applicable 03/26/20 17:15 Hep Bs Antigen Negative (Negative) 03/30/20 04:45 Hep Bs Antibody Negative (See Note) 03/30/20 04:45 Hep Bs Antibody, Quant <3.1 mIU/mL (See Note) 03/30/20 04:45 Hep B Core Total Ab Negative (Negative) 03/30/20 04:45 Hepatitis C Antibody Reactive (Negative) A 03/30/20 04:45 Ref Test Perform Site [facility] lab 03/26/20 17:15
--- NOTE | 2020-03-31 15:58 | CHAPLAIN ---
I visited with Ginger before her MRI. She said she'd had one before and knew what to expect. She was looking forward to eating a cheeseburger after the MRI because she hadn't eaten today or yesterday. When I saw her later in the day, she said the MRI went well and she like the music that she listened to. We talked while the nurse was working to get an IV in.
[2020-03-31 16:34] VITALS: BP 124/83; PULSE 72; RESP 20; TEMP 36.5; O2SAT 99
[2020-03-31 19:40] VITALS: BP 128/73; PULSE 76; RESP 22; TEMP 35.9; O2SAT 95
[2020-03-31] MEDS: lamoTRIgine 100 MG TAB PO (21:37)
[2020-03-31] MEDS: Mirtazapine 15 MG TAB PO (21:37)
[2020-04-01] VITALS (8 sets, daily range): BP systolic 104–136; BP diastolic 55–84; PULSE 72–84; RESP 17–20; TEMP 35.8–36.7; O2SAT 96–99
[2020-04-01] MEDS: Normal Saline 1,000 ML 75 ML IV (04:45)
[2020-04-01] MEDS: Heparin 5,000 UNITS/ML VIAL 5000 UNITS SC ×3 (05:43→21:16)
[2020-04-01] MEDS: Normal Saline Flush 10 ML SYR IVP ×4 (05:44→18:28)
[2020-04-01] MEDS: Levothyroxine 125 MCG TAB PO (05:44)
[2020-04-01] MEDS: Hydrocortisone SOD SUC. 100 MG VIAL 50 MG IVP (05:44)
[2020-04-01 07:16] LABS: Abs Immature Grans 0.17 k/cumm (0.0-0.09); Absolute Basophil Count 0.01 k/cumm (0.0-0.2); Absolute Eosinophil Count 0.02 k/cumm (0.0-0.7); Absolute Lymphocyte Count 2.49 k/cumm (1.2-3.4); Absolute Monocyte Count 0.72 k/cumm (0.11-0.7); Absolute Neutrophil Count 3.55 k/cumm (1.2-6.7); Basophils % 0.1; Eosinophils % 0.3; HGB 10.5 g/dL (12.0-15.5); Immature Grans % 2.4 %; Lymphocytes % 35.8; Mean Corp. HGB Concentration 31.8 g/dL (32.0-36.0); Mean Corpuscular Hemoglobin 31.4 pg (27.0-33.0); Mean Corpuscular Volume 98.8 fL (80-95); Mean Platelet Volume 9.7 fL (8.0-11.0); Monocytes % 10.3; Neutrophils % 51.1; Platelet Count 247 x1000/uL (130-400); RBC 3.34 m/cumm (4.00-5.20); RBC Distribution Width 15.9 % (11.7-14.6); White Blood Cell Count 6.96 k/cumm (4.4-10.8)
--- NOTE | 2020-04-01 07:56 | OTIE_ITS ---
Occupational Therapy Notes Inpatient Occupational Therapy Evaluation Date: 04/01/20 Referring Doctor: Yojana Osorio MD OT Orders: Non-Urgent: Limited Ability Precautions: Fall, Standard PATIENT PROFILE/ADMITTING DIAGNOSIS: Pt is a 59 year old female who is a custodial resident at [facility]. She presented to the ER on 03/26/20. She was admitted to [facility] with the following dx at that time including Ileus, tardiv dyskinesia, parkinsonism, hx of multiple strokes, (R) kidney stone, CUSTOMER MARKETING MANAGER vasculitis, UTI, chronic chest pain, Bipolar 1 disorder, acute pancreatitis, DVT prophylaxis. Past Medical History- DALTON (acute kidney injury) (Inactive) Anxiety (Chronic) Bipolar 1 disorder (Acute) Cholelithiasis with acute cholecystitis (Acute) s/p cholecystostomy and stone extraction in 2014 ([facility]), tube now pulled. 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 insufficiency (Acute) CUSTOMER MARKETING MANAGER vasculitis (Chronic) Complicated UTI (urinary tract infection) (Inactive) Diverticulosis (Acute) Hemiparesis affecting right side as late effect of cerebrovascular accident (CVA) (Acute) Hepatitis C (Chronic) History of multiple cerebrovascular accidents (CVAs) (Acute) Hypertension (Chronic) Hypothyroidism (Chronic) IDDM (insulin dependent diabetes mellitus) (Chronic) Lumbar disc disease (Acute) Nephrolithiasis (Chronic) Neurogenic bladder (Acute) Obesity (BMI 30.0-34.9) (Acute) Right kidney stone (Acute) Septic shock (Inactive) Static encephalopathy (Acute) Steroid dependent (Acute) Uterine mass (Acute) likely a fibroid UTI (urinary tract infection) (Inactive) Surgical History Abnormal cholangiogram (Acute) H/O cervical spine surgery (Acute) H/O foot surgery (Acute) H/O wrist surgery (Acute) History of extraction of renal calculus (Acute) 12/13/2018 - [facility] History of hip surgery (Acute) right History of lumbosacral spine surgery (Acute) S/P cystoscopy with ureteral stent placement (Acute) [facility] 11/2018 Status post creation of urethral sling by suprapubic approach (Acute) Social History/Home Situation: 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 She states that for years now she has been totally max (A) for all ADLs/IADL routines including dressing, bathing, toileting, functional mobility and eating at times. She does reports that with built up handles if her tremor is well managed that she is able to perform her eating routine with (A), but notes that this is significantly impacted by her tremor. Equipment owned/DME: Provided per DME SUBJECTIVE: Pt was lying in bed when OT arrived. She states that she is feeling well and thinks that she will need surgery for her kidney stones. She reports that she plans to return to the [facility] and that she is feeling like she is at her baseline level of function. OBJECTIVE: General Observation: Pleasant and able to answer questions appropriately. (R) hand/ UE contracture, (B) hip contractures. Mental Status: A&Ox3 Pain: c/o pain throughout body 04/02 ROM: RUE AROM not able to perform due to contractures, elbow was bent in 90* with hand in bent position. L UE Shoulder flexion able to achieve 110*, elbow WNL, hand and digits able to make fist but with weak wound care coordinator. STRENGTH: RUE Shoulder flexion NT, elbow 2-/5, wound care coordinator is weak and unable to wound care coordinator LUE Shoulder flexion 4-/5, bicep 4+/5, tricep 4+/5, wound care coordinator is weak and unable to wound care coordinator SENSATION: Numbness and tingling in (R) UE FUNCTIONAL MOBILITY/ADLS: Transfers Unable to transfer without mechanical lift. BATHING Pt denies. She reports that she is max (A) and states that she has been for years. OT attempts to assess pts functional ability to utilize her (L) hand to (A) with bathing which she is able to wash her face, (R) UE and (A) with washing her abdomen. However, this is purely based on her (L) hand tremor which at times is better and she has more motor control and other times she is unable to control her (L) arm. DRESSING Pt is max (A) dressing. When assessing [facility] gown she is unable to (A) due to decreased motor control particularly related to her PArkinsons dx.She is max (A) with don and doffing (B) socks due to contractures in (R) UE, (B) hips as well as inability to stay in seated position due to pain. GROOMING Pt is able to bring her (L) UE to her hair, this is also dependent on her tremor and motor control. Pt states that she is not (I) with her teeth care. TOILETING NT pt is mechanically lifted to perform functional mobility and will require (A) With toileting hygiene due to contractures and decreased wound care coordinator strength. EATING Pt states that at times she utilizes built up handles for her eating routine. OT does feel that if pts tremor and motor control are doing well that pt will be able to wound care coordinator silverware and bring hand to mouth with (A). She states that at the [facility] they perform max (A) for all eating routines. Another useful tool for pt during eating routine would be a weighted, swivel piece of si lverware as this could help absorb some of the tremor promoting increased (I). Pt states that she is not interested at this time and that they have always just done it for her. BALANCE: Static sitting Fair to good requires back support Dynamic Sitting Poor Static Standing NT Dynamic Standing NT SPECIAL TESTS: Daily Activity Limitations Standardized Measure [facility] AM -PAC ?6 clicks? Daily Activity Inpatient Short Form: Raw score: 7 Standardized score: 20.13 CMS score: 92.44% INFORMED CONSENT/EDUCATION: Pt instructed in purpose of OT Consult and plan of care. ASSESSMENT: Patient is a 59-year-old female referred to occupational therapy services with diagnosis of Ileus, tardiv dyskinesia, parkinsonism, hx of multiple strokes, (R) kidney stone, CUSTOMER MARKETING MANAGER vasculitis, UTI, chronic chest pain, Bipolar 1 disorder, acute pancreatitis, DVT prophylaxis. Patient presents with clinical signs and symptoms consistent with dx, as demonstrated by the following impairment level findings/ functional limitations: Impairments in ADL/IADL and leisure impairments, pt is max (A) at her baseline level of function AMPA score 7 Patient is assessed as a Low 32470 complexity based on the following: History: See above Examination: see functional limitations as noted above Presentation: Evolving Decision Making: AMPAC score 7 GOALS- Pt was seen for OT consult. PLAN OF CARE/TREATMENT PLAN: Pt was seen for OT consult only. Discharge pt from skilled OT services. DISCHARGE RECOMMENDATIONS Return to The [facility] TREATMENT TIME/MINUTES/CODES 27903, 15 minutes (07:20) [facility]
[2020-04-01] MEDS: Pantoprazole 40 MG VIAL IVP (08:18)
[2020-04-01] MEDS: buPROPion-XL 150 MG TABCR 450 MG PO (08:19)
[2020-04-01] MEDS: predniSONE 5 MG TAB 2.5 MG PO (08:20)
[2020-04-01] MEDS: lamoTRIgine 25 MG TAB 50 MG PO (08:20)
[2020-04-01] MEDS: Magnesium Chloride 64 MG TABCR PO ×2 (08:21→20:03)
[2020-04-01] MEDS: traZODone 50 MG TAB 25 MG PO (08:22)
[2020-04-01] MEDS: Multivitamin TAB 1 TAB PO (08:22)
[2020-04-01] MEDS: Carbidopa 25/Levodopa 100 TAB PO ×4 (08:22→20:02)
[2020-04-01] MEDS: Acetaminophen 325 MG TAB 650 MG PO ×2 (08:23→14:32)
[2020-04-01] MEDS: Aspirin 81 MG CHEW PO (08:23)
[2020-04-01] MEDS: QUEtiapine 100 MG TAB PO ×3 (08:23→20:03)
[2020-04-01] MEDS: Insulin Aspart 300 UNITS/3 ML PEN SC ×3 (08:24→21:15)
[2020-04-01] MEDS: Polyethylene Glycol 3350 17 GM PACKET PO ×2 (08:24→20:03)
[2020-04-01] MEDS: cefTRIAXone 1 GM/50 ML BAG IVPB (08:28)
--- NOTE | 2020-04-01 09:16 | PDOC.CMPRO ---
Care Management Progress Note S/O: Ginger continues to be closely monitored. She was lying in bed and reported she was hungry and utilizes built up silverware when eating. CM spoke with Cresencio at the [facility] who reported Ginger would be permitted to return tomorrow without a repeat CV-19 screening. Ginger's diet will be advanced and with toleration she may return to the [facility] as soon as tomorrow per MD. CM will continue to follow. A: Ginger is a 59 year old female admitted to [facility] 03/26/20 for Acute Pancreatitis. P: Ginger will return to the [facility] when ready per MD, she will transport via ambulance at time of discharge; coordinated by CM. CM will continue to follow and support discharge planning considerations.
[2020-04-01 11:00] LABS: HIV-1/2 Ag & Ab Screen Negative (Negative)
[2020-04-01 12:21] LABS: AST 40 U/L (15-37); Albumin 2.4 g/dL (3.4-5.0); Alkaline Phosphatase 52 U/L (46-116); Anion Gap 6.9 mmol/L (3-11); BUN 4 mg/dL (7-18); Bilirubin, Direct 0.08 mg/dL (0.00-0.20); Bilirubin, Total 0.2 mg/dL (0.2-1.0); CO2 29.1 mmol/L (21.0-32.0); CREATININE 0.57 mg/dL (0.55-1.02); Calcium 8.5 mg/dL (8.5-10.1); Chloride 104 mmol/L (98-107); Glucose 182 mg/dL (74-106); Magnesium 1.9 mg/dL (1.8-2.4); Potassium 3.2 mmol/L (3.5-5.1); Sodium 140 mmol/L (136-145); Total Protein 6.3 g/dL (6.4-8.2)
[2020-04-01 12:22] LABS: ALT < 6 U/L (14-59)
--- NOTE | 2020-04-01 13:01 | W.PM.PROGNOT ---
Date of Service Date of service: 04/01/20 Time of Service: 13:01 Assessment and Plan Assessment and plan (1) Acute pancreatitis: Status: Acute Assessment and plan: Improved - no pain today. Ileus appears to be resolving as well. Re-initiate clear liquids. MRCP with pancreatitis, no choledocholithiasis. Continue seroquel, but depakote has been d/c'ed indefinitely. (2) Ileus: Status: Acute Assessment and plan: Clinically resolved. Flat plate is pending. I feel comfortable starting her on clear liquids. D/c IVF. (3) UTI (urinary tract infection): Status: Acute Assessment and plan: Polymicrobial, due to E. Coli and proteus - sensitivities for proteus are pending. I have placed a call with Dr Alvarez - awaiting call back - struvite stone is a possibility. Likely present on admission, though this could not be verified as the UA ordered on admission is not in the system. On ceftriaxone (day 5) and clinically improving. Vancomycin d/c'ed after 4 days. Continue steroid taper. (4) Hypotension: Status: Resolved Assessment and plan: Due to acute on chronic adrenal insufficiency in setting of impending septic shock due to the above UTI. Resolved with stress dose steroids and abx - taper steroids carefully. D/c IVF. (5) Constipation: Status: Resolved Assessment and plan: vs ileus. Resolved. (6) Bipolar 1 disorder: Status: Chronic Assessment and plan: Currently doing ok. Read discussion above re stopping depakote (causes pancreatitis). Continue increased dose of lamictal - evening dose increased to 100 mg, am dose to stay @ 50 mg. In two weeks, am dose should also be increased to 100 mg. Seroquel could be causing pancreatitis as well - if d/c'ed, ECT needs to be considered. (7) Ambulatory dysfunction: Status: Chronic Assessment and plan: PT consulted (8) Chronic chest pain: Status: Chronic Assessment and plan: Continue tylenol/heat. (9) APPLICATIONS ADMINISTRATOR vasculitis: Status: Chronic Assessment and plan: Normally on prednisone and cellcept. There is evidence of interim CVAs on CTA, per neurology (not acute/on this admission). This could argue that the patient's vasculitis could still be active. Will need to be re-plugged in with rheum/neuro. Awaiting call back from Dr Norbert Pak at this time. For now, still holding cellcept. Taper steroids. Additionally, Hep C positive - could be contributing to vasculitis. Hep B negative on our check. She does not appear vaccinated and will need to be as outpatient. (10) DVT prophylaxis: Status: Acute Assessment and plan: heparin SC (11) Discharge planning issues: Status: Acute Assessment and plan: DNR/DNI - code status changed with palliative care. Subjective Subjective Interval history since last seen: Ms Barrera states she is feeling better. She feels a little dizzy, denies chest pain, shortness of breath, nausea, or abdominal pain. She did get her suppository yesterday, which was followed by a large BM. She is very interested in having more food. Exam Narrative Exam Narrative: General: Obese female Who looks markedly better, A&Ox3, sitting up in a chair. HEENT: EOMI, MMM, edentuous Heart: RRR, no m/r/g Lungs: CTAB Abdomen: soft, less distended today, nontender Extremities: trace edema BLE's Objective Objective Clinical Data: Abnormal lab results 04/01/20 04/01/20 Range/Units 06:05 11:10 RBC 3.34 L (4.00-5.20) m/cumm Hgb 10.5 L (12.0-15.5) g/dL Hct 33.0 L (36.0-46.0) % MCV 98.8 H (80-95) fL MCHC 31.8 L (32.0-36.0) g/dL RDW 15.9 H (11.7-14.6) % Absolute Monocytes 0.72 H (0.11-0.7) k/cumm Potassium 3.2 L (3.5-5.1) mmol/L BUN 4 L (7-18) mg/dL Glucose 182 H (74-106) mg/dL AST 40 H (15-37) U/L ALT < 6 L (14-59) U/L Total Protein 6.3 L (6.4-8.2) g/dL Albumin 2.4 L (3.4-5.0) g/dL Vital Signs Temperature 36.7 C 04/01/20 07:24 Temperature Source Temporal Artery Scan 04/01/20 07:24 Pulse 75 04/01/20 07:24 Pulse Rhythm Regular 04/01/20 08:35 Respiratory Rate 18 04/01/20 07:24 Respiratory Effort Non-Labored 04/01/20 08:35 Respiratory Depth Normal 04/01/20 08:35 Respiratory Pattern Normal 04/01/20 08:35 Blood Pressure 136/77 04/01/20 07:24 Blood Pressure Position Sitting 03/26/20 12:09 Pulse Oximetry 98 04/01/20 07:24 Oxygen Delivery Method Nasal Cannula 04/01/20 07:24 Oxygen Flow Rate 1 04/01/20 07:24 Pain Level 6 04/01/20 08:18 Comment 04/01/20 00:55 Intake & Output 03/31/20 04/01/20 04/01/20 23:59 11:59 23:59 Intake Total 443.75 / 1782.50 1005 / 1005 Balance 443.75 / 1782.50 1005 / 1005 Weight 82.1 kg Intake: IV 193.75 / 1442.50 965 / 965 Oral 250 / 340 40 / 40 Other: Urine Color Yellow Yellow Urine Odor Foul Comment incontinent of large amount of urine. Grossly incontinent. Stool Size Large Moderate Stool Characteristics Soft Soft Liquid Brown Brown Voiding Methods Diaper Diaper Diaper Incontinent Incontinent Incontinent Laboratory Results WBC 6.96 k/cumm (4.4-10.8) 04/01/20 06:05 RBC 3.34 m/cumm (4.00-5.20) L 04/01/20 06:05 Hgb 10.5 g/dL (12.0-15.5) L 04/01/20 06:05 Hct 33.0 % (36.0-46.0) L 04/01/20 06:05 MCV 98.8 fL (80-95) H 04/01/20 06:05 MCH 31.4 pg (27.0-33.0) 04/01/20 06:05 MCHC 31.8 g/dL (32.0-36.0) L 04/01/20 06:05 RDW 15.9 % (11.7-14.6) H 04/01/20 06:05 Plt Count 247 x1000/uL (130-400) 04/01/20 06:05 MPV 9.7 fL (8.0-11.0) 04/01/20 06:05 Immature Gran % 2.4 % 04/01/20 06:05 Neutrophils % 51.1 04/01/20 06:05 Band Neutrophils % Cancelled 03/28/20 07:12 Lymphocytes % 35.8 04/01/20 06:05 Atypical Lymphs % Cancelled 03/28/20 07:12 Monocytes % 10.3 04/01/20 06:05 Eosinophils % 0.3 04/01/20 06:05 Basophils % 0.1 04/01/20 06:05 Metamyelocytes % Cancelled 03/28/20 07:12 Myelocytes % Cancelled 03/28/20 07:12 Promyelocytes % Cancelled 03/28/20 07:12 Absolute Neutrophils 3.55 k/cumm (1.2-6.7) 04/01/20 06:05 Absolute Lymphocytes 2.49 k/cumm (1.2-3.4) 04/01/20 06:05 Absolute Monocytes 0.72 k/cumm (0.11-0.7) H 04/01/20 06:05 Absolute Eosinophils 0.02 k/cumm (0.0-0.7) 04/01/20 06:05 Absolute Basophils 0.01 k/cumm (0.0-0.2) 04/01/20 06:05 Nucleated RBCs Cancelled 03/28/20 07:12 Differential Comment Cancelled 03/28/20 07:12 Other Cell Type Cancelled 03/28/20 07:12 RBC Morphology Cancelled 03/28/20 07:12 Polychromasia Cancelled 03/28/20 07:12 Hypochromasia Cancelled 03/28/20 07:12 Poikilocytosis Cancelled 03/28/20 07:12 Basophilic Stippling Cancelled 03/28/20 07:12 Anisocytosis Cancelled 03/28/20 07:12 Microcytosis Cancelled 03/28/20 07:12 Macrocytosis Cancelled 03/28/20 07:12 Spherocytes Cancelled 03/28/20 07:12 Target Cells Cancelled 03/28/20 07:12 Tear Drop Cells Cancelled 03/28/20 07:12 Ovalocytes Cancelled 03/28/20 07:12 Stomatocytes Cancelled 03/28/20 07:12 [place] Bodies Cancelled 03/28/20 07:12 [place] Cells Cancelled 03/28/20 07:12 Acanthocytes (Spur) Cancelled 03/28/20 07:12 Schistocytes Cancelled 03/28/20 07:12 ESR 49 mm/hr (0-30) H 03/31/20 06:13 Sodium 140 mmol/L (136-145) 04/01/20 11:10 Potassium 3.2 mmol/L (3.5-5.1) L 04/01/20 11:10 Chloride 104 mmol/L (98-107) 04/01/20 11:10 Carbon Dioxide 29.1 mmol/L (21.0-32.0) 04/01/20 11:10 Anion Gap 6.9 mmol/L (3-11) 04/01/20 11:10 BUN 4 mg/dL (7-18) L 04/01/20 11:10 Creatinine 0.57 mg/dL (0.55-1.02) 04/01/20 11:10 Estimated GFR/1.73 m2 >= 60.00 (mL/min/1.73m2) 04/01/20 11:10 Glucose 182 mg/dL (74-106) H 04/01/20 11:10 Lactate 1.8 mmol/L (0.6-1.4) H 03/29/20 08:00 Calcium 8.5 mg/dL (8.5-10.1) 04/01/20 11:10 Magnesium 1.9 mg/dL (1.8-2.4) 04/01/20 11:10 Total Bilirubin 0.2 mg/dL (0.2-1.0) 04/01/20 11:10 Conjugated Bilirubin 0.08 mg/dL (0.00-0.20) 04/01/20 11:10 AST 40 U/L (15-37) H 04/01/20 11:10 ALT < 6 U/L (14-59) L 04/01/20 11:10 Alkaline Phosphatase 52 U/L (46-116) 04/01/20 11:10 C-Reactive Protein 2.39 mg/dL (0.0-0.3) H 03/31/20 06:13 Total Protein 6.3 g/dL (6.4-8.2) L 04/01/20 11:10 Albumin 2.4 g/dL (3.4-5.0) L 04/01/20 11:10 Triglycerides 133 mg/dL (<150) 03/27/20 09:53 Total Cholesterol 150 mg/dL (<200) 03/27/20 09:53 LDL Cholesterol, Calc 72 mg/dL (<100) 03/27/20 09:53 HDL Cholesterol 52 mg/dL (40-60) 03/27/20 09:53 Lipase 421 U/L (73-393) H 03/30/20 04:45 TSH 1.40 uIU/mL (0.36-3.74) 03/30/20 04:45 Urine Color Yellow (Yellow) 03/27/20 20:50 Urine Clarity Cloudy (Clear) 03/27/20 20:50 Urine pH 7.0 (5-8) 03/27/20 20:50 Ur Specific [place] 1.020 (1.005-1.025) 03/27/20 20:50 Urine Protein 30 mg/dL (Negative) H 03/27/20 20:50 Urine Ketones Negative mg/dL (Negative) 03/27/20 20:50 Urine Blood Moderate (Negative) H 03/27/20 20:50 Urine Nitrite Positive (Negative) H 03/27/20 20:50 Urine Bilirubin Negative (Negative) 03/27/20 20:50 Urine Urobilinogen 1.0 EU/dL (Up TO 0.2) H 03/27/20 20:50 Ur Leukocyte Esterase Large (Negative) H 03/27/20 20:50 Urine RBC 10-20 HPF (0-2) H 03/27/20 20:50 Urine WBC >50 HPF (0-5) H 03/27/20 20:50 Ur Epithelial Cells Negative HPF (Negative) 03/27/20 20:50 Urine Crystals Negative HPF (Negative) 03/27/20 20:50 Urine Bacteria Many HPF (Negative) 03/27/20 20:50 Urine Casts Negative LPF (Negative) 03/27/20 20:50 Urine Mucus Negative (Negative) 03/27/20 20:50 Urine Other Moderate renal (Negative) 03/27/20 20:50 Ur Culture Indicated? Yes 03/27/20 20:50 Urine Glucose Negative mg/dL (Negative) 03/27/20 20:50 Vancomycin Trough 19.1 ug/mL (10.0-20.0) 03/31/20 11:15 COVID-19 PCR Negative (Negative) 03/26/20 17:15 Nasopharyn COVID-19 PCR Not Applicable 03/26/20 17:15 Hep Bs Antigen Negative (Negative) 03/30/20 04:45 Hep Bs Antibody Negative (See Note) 03/30/20 04:45 Hep Bs Antibody, Quant <3.1 mIU/mL (See Note) 03/30/20 04:45 Hep B Core Total Ab Negative (Negative) 03/30/20 04:45 Hepatitis C Antibody Reactive (Negative) A 03/30/20 04:45 HIV 1&2 Ag/Ab, 4th Gen Negative (Negative) 03/31/20 06:13 Ref Test Perform Site [facility] lab 03/26/20 17:15 XR abdomen flat: pending
--- NOTE | 2020-04-01 13:47 | DI.RAD_ITS ---
EXAM: 2D digital imaging was performed. CLINICAL HISTORY: follow up ileus. COMPARISON: CT CT ABDOMEN PELVIS W from 03/26/2020 CR,XR XR ABDOMEN FLAT PLATE from 03/30/2020 TECHNIQUE: Supine views of the abdomen performed. FINDINGS: A large quantity of stool is again seen in the rectum. The sigmoid colon is somewhat distended with air. The remaining a portions of the colon show normal caliber. There is gas CT seen scattered in s mall bowel. There is no gastric distension. IMPRESSION: Large quantity of stool in the rectum. DATA REPOSITORY: RADIATION DOSE DELIVERED:
[2020-04-01] MEDS: POTASSIUM CHLORIDE 20 MEQ/100 ML BAG 50 MEQ IVPB ×2 (14:01→16:15)
[2020-04-01 14:22] LABS: HCV RNA Qualitative Detected (Undetected)
[2020-04-01] MEDS: Hydrocortisone SOD SUC. 100 MG VIAL 25 MG IVP (18:27)
[2020-04-01 18:34] LABS: Bilirubin Negative (Negative); Blood Trace-lysed (Negative); Clarity Sl Cloudy (Clear); Glucose Negative (Negative); Ketones Negative (Negative); Leukocyte Esterase Trace (Negative); Nitrite Negative (Negative); Specific Gravity 1.015 (1.005-1.025); Urobilinogen 0.2 EU/dL (Up TO 0.2); pH 7.5 (5-8)
[2020-04-01 18:49] LABS: Bacteria Moderate HPF (Negative); C & S Indicated? Yes; Casts Negative LPF (Negative); Crystals Negative HPF (Negative); Epithelial Cells Few HPF (Negative); Mucus Negative (Negative); Other Cells Negative (Negative); RBC Negative HPF (0-2)
[2020-04-01] MEDS: lamoTRIgine 100 MG TAB PO (21:15)
[2020-04-01] MEDS: Mirtazapine 15 MG TAB PO (21:15)
[2020-04-02] VITALS (8 sets, daily range): BP systolic 100–120; BP diastolic 65–76; PULSE 76–82; RESP 16–18; TEMP 35–36.4; O2SAT 96–99
[2020-04-02] MEDS: Levothyroxine 125 MCG TAB PO (06:11)
[2020-04-02] MEDS: Hydrocortisone SOD SUC. 100 MG VIAL 25 MG IVP (06:11)
[2020-04-02] MEDS: Acetaminophen 325 MG TAB 650 MG PO ×3 (06:11→16:10)
[2020-04-02] MEDS: Normal Saline Flush 10 ML SYR IVP ×5 (06:12→23:47)
[2020-04-02] MEDS: Heparin 5,000 UNITS/ML VIAL 5000 UNITS SC ×3 (06:13→23:01)
[2020-04-02] MEDS: Ondansetron 4 MG/2 ML VIAL IVP ×2 (06:34→23:47)
[2020-04-02 07:38] LABS: Abs Immature Grans 0.16 k/cumm (0.0-0.09); Absolute Basophil Count 0.02 k/cumm (0.0-0.2); Absolute Eosinophil Count 0.09 k/cumm (0.0-0.7); Absolute Lymphocyte Count 3.55 k/cumm (1.2-3.4); Absolute Monocyte Count 0.88 k/cumm (0.11-0.7); Basophils % 0.2; Eosinophils % 1.1; HCT 36.1 % (36.0-46.0); HGB 11.4 g/dL (12.0-15.5); Immature Grans % 1.9 %; Lymphocytes % 41.8; Mean Corp. HGB Concentration 31.6 g/dL (32.0-36.0); Mean Corpuscular Hemoglobin 31.2 pg (27.0-33.0); Mean Corpuscular Volume 98.9 fL (80-95); Mean Platelet Volume 8.7 fL (8.0-11.0); Monocytes % 10.4; Neutrophils % 44.6; Platelet Count 317 x1000/uL (130-400); RBC 3.65 m/cumm (4.00-5.20); RBC Distribution Width 15.5 % (11.7-14.6)
--- NOTE | 2020-04-02 07:45 | PGE_ITS ---
Date of Service Date of service: 04/02/20 Time of Service: 12:04 Assessment and Plan Assessment and plan (1) Right kidney stone: Status: Acute Assessment and plan: The presence of Proteus in the urine is concerning in that there may be at least some struvite composition in her current kidney stones. My initial inclination is that she likely will need a ureteroscopy and holmium laser lithotripsy for her right-sided kidney stones. She is not showing signs of sepsis, so I do not think any urgent or emergent surgery is necessary. In fact, I am not sure that we need her on an extended course of antibiotics for the Proteus. With the small colony counts, we probably simply need to make sure to have culture specific antibiotics given in the perioperative period. I have already spoken with our anesthesia colleagues and given her cardiac and pulmonary function, she would seem to be a candidate for surgery here at our institution. They are interested in seeing what type of steroid dosing might of been given to this patient with her previous anesthetic. I believe it will be reasonable to discharge her once her pancreatitis/ileus is under control. We can then bring her back to the hospital as an outpatient for her stone procedure. I will have my office staff start working on the scheduling. Subjective Subjective Interval history since last seen: I was able to obtain a copy of the patient's stone analysis and CT report from [facility]. When she had her stone surgery in November 2018, the stone was 100% struvite. The imaging reports indicate small residual stones. Her renal ultrasound from 01/2019 questions small stones in the mid and lower pole. Her current CT scan certainly shows a larger stone burden than described on ultrasound. I asked that the films be pushed over so that I can review them and compare stone size to her current findings. As of the timing of this note, the images are not available for review. Exam Narrative Exam Narrative: She was sleeping when I came into her room but was easily arousable She does not appear septic or toxic Her initial urine culture from this admission is growing greater than 100,000 E. coli, but also has <10,000 Proteus. Objective Objective Clinical Data: Abnormal lab results 03/30/20 04/01/20 04/01/20 Range/Units 04:45 11:10 18:20 RBC (4.00-5.20) m/cumm Hgb (12.0-15.5) g/dL MCV (80-95) fL MCHC (32.0-36.0) g/dL RDW (11.7-14.6) % Absolute Lymphocytes (1.2-3.4) k/cumm Absolute Monocytes (0.11-0.7) k/cumm Potassium 3.2 L (3.5-5.1) mmol/L BUN 4 L (7-18) mg/dL Glucose 182 H (74-106) mg/dL AST 40 H (15-37) U/L ALT < 6 L (14-59) U/L Total Protein 6.3 L (6.4-8.2) g/dL Albumin 2.4 L (3.4-5.0) g/dL Urine Blood Trace-lysed H (Negative) Ur Leukocyte Esterase Trace H (Negative) HCV RNA Qual (PCR) Detected A (Undetected) Hepatitis C RNA Quant [id number] H (Undetected) IU/mL 04/02/20 Range/Units 06:30 RBC 3.65 L (4.00-5.20) m/cumm Hgb 11.4 L (12.0-15.5) g/dL MCV 98.9 H (80-95) fL MCHC 31.6 L (32.0-36.0) g/dL RDW 15.5 H (11.7-14.6) % Absolute Lymphocytes 3.55 H (1.2-3.4) k/cumm Absolute Monocytes 0.88 H (0.11-0.7) k/cumm Potassium (3.5-5.1) mmol/L BUN (7-18) mg/dL Glucose (74-106) mg/dL AST (15-37) U/L ALT (14-59) U/L Total Protein (6.4-8.2) g/dL Albumin (3.4-5.0) g/dL Urine Blood (Negative) Ur Leukocyte Esterase (Negative) HCV RNA Qual (PCR) (Undetected) Hepatitis C RNA Quant (Undetected) IU/mL Vital Signs Temperature 36.4 C L 04/02/20 03:47 Temperature Source Tympanic 04/02/20 03:47 Pulse 82 04/02/20 03:47 Pulse Rhythm Regular 04/01/20 20:56 Respiratory Rate 18 04/02/20 03:47 Respiratory Effort Non-Labored 04/01/20 20:56 Respiratory Depth Normal 04/01/20 20:56 Respiratory Pattern Normal 04/01/20 20:56 Blood Pressure 120/69 04/02/20 03:47 Blood Pressure Position Sitting 03/26/20 12:09 Pulse Oximetry 98 04/02/20 03:47 Oxygen Delivery Method Nasal Cannula 04/02/20 03:47 Oxygen Flow Rate 1 04/02/20 03:47 Pain Level 0 04/01/20 23:46 Comment 04/01/20 00:55 Intake & Output 04/01/20 04/01/20 04/02/20 11:59 23:59 11:59 Intake Total 1005 / 2848.75 1843.75 / 2848.75 Balance 1005 / 2848.75 1843.75 / 2848.75 Weight 82.1 kg 80.7 kg Intake: IV 965 / 1888.75 923.75 / 1888.75 Oral 40 / 960 920 / 960 Other: Urine Color Yellow Yellow Yellow Urine Odor Foul Normal Normal Comment incontinent of large amount of urine. Grossly incontinent. Stool Size Moderate Small Small Stool Characteristics Soft Soft Soft Brown Liquid Brown Voiding Methods Diaper Diaper Incontinent Incontinent Incontinent Laboratory Results WBC 8.50 k/cumm (4.4-10.8) 04/02/20 06:30 RBC 3.65 m/cumm (4.00-5.20) L 04/02/20 06:30 Hgb 11.4 g/dL (12.0-15.5) L 04/02/20 06:30 Hct 36.1 % (36.0-46.0) 04/02/20 06:30 MCV 98.9 fL (80-95) H 04/02/20 06:30 MCH 31.2 pg (27.0-33.0) 04/02/20 06:30 MCHC 31.6 g/dL (32.0-36.0) L 04/02/20 06:30 RDW 15.5 % (11.7-14.6) H 04/02/20 06:30 Plt Count 317 x1000/uL (130-400) 04/02/20 06:30 MPV 8.7 fL (8.0-11.0) 04/02/20 06:30 Immature Gran % 1.9 % 04/02/20 06:30 Neutrophils % 44.6 04/02/20 06:30 Band Neutrophils % Cancelled 03/28/20 07:12 Lymphocytes % 41.8 04/02/20 06:30 Atypical Lymphs % Cancelled 03/28/20 07:12 Monocytes % 10.4 04/02/20 06:30 Eosinophils % 1.1 04/02/20 06:30 Basophils % 0.2 04/02/20 06:30 Metamyelocytes % Cancelled 03/28/20 07:12 Myelocytes % Cancelled 03/28/20 07:12 Promyelocytes % Cancelled 03/28/20 07:12 Absolute Neutrophils 3.80 k/cumm (1.2-6.7) 04/02/20 06:30 Absolute Lymphocytes 3.55 k/cumm (1.2-3.4) H 04/02/20 06:30 Absolute Monocytes 0.88 k/cumm (0.11-0.7) H 04/02/20 06:30 Absolute Eosinophils 0.09 k/cumm (0.0-0.7) 04/02/20 06:30 Absolute Basophils 0.02 k/cumm (0.0-0.2) 04/02/20 06:30 Nucleated RBCs Cancelled 03/28/20 07:12 Differential Comment Cancelled 03/28/20 07:12 Other Cell Type Cancelled 03/28/20 07:12 RBC Morphology Cancelled 03/28/20 07:12 Polychromasia Cancelled 03/28/20 07:12 Hypochromasia Cancelled 03/28/20 07:12 Poikilocytosis Cancelled 03/28/20 07:12 Basophilic Stippling Cancelled 03/28/20 07:12 Anisocytosis Cancelled 03/28/20 07:12 Microcytosis Cancelled 03/28/20 07:12 Macrocytosis Cancelled 03/28/20 07:12 Spherocytes Cancelled 03/28/20 07:12 Target Cells Cancelled 03/28/20 07:12 Tear Drop Cells Cancelled 03/28/20 07:12 Ovalocytes Cancelled 03/28/20 07:12 Stomatocytes Cancelled 03/28/20 07:12 [place] Bodies Cancelled 03/28/20 07:12 [place] Cells Cancelled 03/28/20 07:12 Acanthocytes (Spur) Cancelled 03/28/20 07:12 Schistocytes Cancelled 03/28/20 07:12 ESR 49 mm/hr (0-30) H 03/31/20 06:13 Sodium 140 mmol/L (136-145) 04/01/20 11:10 Potassium 3.2 mmol/L (3.5-5.1) L 04/01/20 11:10 Chloride 104 mmol/L (98-107) 04/01/20 11:10 Carbon Dioxide 29.1 mmol/L (21.0-32.0) 04/01/20 11:10 Anion Gap 6.9 mmol/L (3-11) 04/01/20 11:10 BUN 4 mg/dL (7-18) L 04/01/20 11:10 Creatinine 0.57 mg/dL (0.55-1.02) 04/01/20 11:10 Estimated GFR/1.73 m2 >= 60.00 (mL/min/1.73m2) 04/01/20 11:10 Glucose 182 mg/dL (74-106) H 04/01/20 11:10 Lactate 1.8 mmol/L (0.6-1.4) H 03/29/20 08:00 Calcium 8.5 mg/dL (8.5-10.1) 04/01/20 11:10 Magnesium 1.9 mg/dL (1.8-2.4) 04/01/20 11:10 Total Bilirubin 0.2 mg/dL (0.2-1.0) 04/01/20 11:10 Conjugated Bilirubin 0.08 mg/dL (0.00-0.20) 04/01/20 11:10 AST 40 U/L (15-37) H 04/01/20 11:10 ALT < 6 U/L (14-59) L 04/01/20 11:10 Alkaline Phosphatase 52 U/L (46-116) 04/01/20 11:10 C-Reactive Protein 2.39 mg/dL (0.0-0.3) H 03/31/20 06:13 Total Protein 6.3 g/dL (6.4-8.2) L 04/01/20 11:10 Albumin 2.4 g/dL (3.4-5.0) L 04/01/20 11:10 Triglycerides 133 mg/dL (<150) 03/27/20 09:53 Total Cholesterol 150 mg/dL (<200) 03/27/20 09:53 LDL Cholesterol, Calc 72 mg/dL (<100) 03/27/20 09:53 HDL Cholesterol 52 mg/dL (40-60) 03/27/20 09:53 Lipase 421 U/L (73-393) H 03/30/20 04:45 TSH 1.40 uIU/mL (0.36-3.74) 03/30/20 04:45 Urine Color Yellow (Yellow) 04/01/20 18:20 Urine Clarity Sl cloudy (Clear) 04/01/20 18:20 Urine pH 7.5 (5-8) 04/01/20 18:20 Ur Specific [place] 1.015 (1.005-1.025) 04/01/20 18:20 Urine Protein Negative mg/dL (Negative) 04/01/20 18:20 Urine Ketones Negative mg/dL (Negative) 04/01/20 18:20 Urine Blood Trace-lysed (Negative) H 04/01/20 18:20 Urine Nitrite Negative (Negative) 04/01/20 18:20 Urine Bilirubin Negative (Negative) 04/01/20 18:20 Urine Urobilinogen 0.2 EU/dL (Up TO 0.2) 04/01/20 18:20 Ur Leukocyte Esterase Trace (Negative) H 04/01/20 18:20 Urine RBC Negative HPF (0-2) 04/01/20 18:20 Urine WBC 3-5 HPF (0-5) 04/01/20 18:20 Ur Epithelial Cells Few HPF (Negative) 04/01/20 18:20 Urine Crystals Negative HPF (Negative) 04/01/20 18:20 Urine Bacteria Moderate HPF (Negative) 04/01/20 18:20 Urine Casts Negative LPF (Negative) 04/01/20 18:20 Urine Mucus Negative (Negative) 04/01/20 18:20 Urine Other Negative (Negative) 04/01/20 18:20 Ur Culture Indicated? Yes 04/01/20 18:20 Urine Glucose Negative mg/dL (Negative) 04/01/20 18:20 Vancomycin Trough 19.1 ug/mL (10.0-20.0) 03/31/20 11:15 COVID-19 PCR Negative (Negative) 03/26/20 17:15 Nasopharyn COVID-19 PCR Not Applicable 03/26/20 17:15 Hep Bs Antigen Negative (Negative) 03/30/20 04:45 Hep Bs Antibody Negative (See Note) 03/30/20 04:45 Hep Bs Antibody, Quant <3.1 mIU/mL (See Note) 03/30/20 04:45 Hep B Core Total Ab Negative (Negative) 03/30/20 04:45 Hepatitis C Antibody Reactive (Negative) A 03/30/20 04:45 HCV RNA Qual (PCR) Detected (Undetected) A 03/30/20 04:45 Hepatitis C RNA Quant [id number] IU/mL (Undetected) H 03/30/20 04:45 HIV 1&2 Ag/Ab, 4th Gen Negative (Negative) 03/31/20 06:13 Ref Test Perform Site [facility] lab 03/26/20 17:15
[2020-04-02 07:49] LABS: ALT 10 U/L (14-59); AST 50 U/L (15-37); Albumin 2.9 g/dL (3.4-5.0); Alkaline Phosphatase 60 U/L (46-116); Anion Gap 10.2 mmol/L (3-11); BUN 4 mg/dL (7-18); Bilirubin, Direct 0.09 mg/dL (0.00-0.20); Bilirubin, Total 0.3 mg/dL (0.2-1.0); C-Reactive Protein 2.04 mg/dL (0.0-0.3); CO2 28.8 mmol/L (21.0-32.0); CREATININE 0.67 mg/dL (0.55-1.02); Calcium 9.4 mg/dL (8.5-10.1); Chloride 108 mmol/L (98-107); Glucose 109 mg/dL (74-106); Lipase 385 U/L (73-393); Magnesium 1.9 mg/dL (1.8-2.4); Potassium 3.8 mmol/L (3.5-5.1); Sodium 147 mmol/L (136-145); Total Protein 7.2 g/dL (6.4-8.2)
[2020-04-02] MEDS: Magnesium Chloride 64 MG TABCR PO ×2 (08:35→20:39)
[2020-04-02] MEDS: Polyethylene Glycol 3350 17 GM PACKET PO ×2 (08:35→20:40)
[2020-04-02] MEDS: buPROPion-XL 150 MG TABCR 450 MG PO (08:35)
[2020-04-02] MEDS: lamoTRIgine 25 MG TAB 50 MG PO (08:35)
[2020-04-02] MEDS: QUEtiapine 100 MG TAB PO ×3 (08:36→20:39)
[2020-04-02] MEDS: predniSONE 5 MG TAB 2.5 MG PO (08:36)
[2020-04-02] MEDS: traZODone 50 MG TAB 25 MG PO ×2 (08:37→20:40)
[2020-04-02] MEDS: Aspirin 81 MG CHEW PO (08:38)
[2020-04-02] MEDS: Multivitamin TAB 1 TAB PO (08:38)
[2020-04-02] MEDS: Carbidopa 25/Levodopa 100 TAB PO ×4 (08:38→20:40)
[2020-04-02] MEDS: Insulin Aspart 300 UNITS/3 ML PEN SC ×4 (08:40→23:00)
[2020-04-02] MEDS: Pantoprazole 40 MG VIAL IVP (08:43)
[2020-04-02] MEDS: cefTRIAXone 1 GM/50 ML BAG IVPB (08:44)
[2020-04-02] MEDS: Normal Saline 500 ML 30 ML IV (08:45)
--- NOTE | 2020-04-02 12:45 | W.PM.PROGNOT ---
Date of Service Date of service: 04/02/20 Time of Service: 12:46 Assessment and Plan Assessment and plan (1) Acute pancreatitis: Status: Resolved Assessment and plan: Complicated by an ileus. Both better/resolving. Would like to advance diet once the patient has another BM. MRCP with pancreatitis, no choledocholithiasis. Continue seroquel, but depakote has been d/c'ed indefinitely. (2) Ileus: Status: Acute Assessment and plan: Clinically resolving. As above. Would like to advance diet after the BM. (3) UTI (urinary tract infection): Status: Acute Assessment and plan: Polymicrobial, due to E. Coli and proteus - sensitivities for proteus are pending. Struvite stone is of concern. Dr Alvarez feels she may need ureteroscopy/laser lithotripsy of the kidney stones on the R - as outpatient. On ceftriaxone (day 6) and clinically improving. Vancomycin d/c'ed after 4 days. Continue steroid taper - transition to PO. (4) Hypotension: Status: Resolved Assessment and plan: Due to acute on chronic adrenal insufficiency in setting of impending septic shock due to the above UTI. Resolved with stress dose steroids and abx - taper steroids carefully. (5) Constipation: Status: Resolved Assessment and plan: vs ileus. Resolved. (6) Bipolar 1 disorder: Status: Chronic Assessment and plan: Currently doing ok. Read discussion above re stopping depakote (causes pancreatitis). Continue increased dose of lamictal - evening dose increased to 100 mg, am dose to stay @ 50 mg. In two weeks, am dose should also be increased to 100 mg. Seroquel could be causing pancreatitis as well - if d/c'ed, ECT needs to be considered. Appreciate psychiatry consult (7) Ambulatory dysfunction: Status: Chronic Assessment and plan: PT consulted (8) Chronic chest pain: Status: Chronic Assessment and plan: Continue tylenol/heat. (9) NEEDLE STRAIGHTENER vasculitis: Status: Chronic Assessment and plan: Normally on prednisone and cellcept. There is evidence of interim CVAs on CTA, per neurology (not acute/on this admission). This could argue that the patient's vasculitis could still be active. Will need to be re-plugged in with rheum/neuro. I spoke with Dr Norbert Pak of rheumatology and sent a referral. The patient met Dr Stanford on this admission and will need to follow up with her as well. Ok to resume cellcept but we do not have it in house. Continue to taper steroids - transitioned to PO today. The patient is expected to have a long taper on discharge. Additionally, Hep C positive - could be contributing to vasculitis. Hep B negative on our check. She does not appear vaccinated against either Hep A/Hep B and will need to be as outpatient. (10) Cough: Status: Acute Assessment and plan: new - check CXR (11) DVT prophylaxis: Status: Acute Assessment and plan: heparin SC (12) Discharge planning issues: Status: Acute Assessment and plan: DNR/DNI - code status changed with palliative care. Will be able to be d/c'ed back to SNF on Sunday. Recheck COVID-19 prior to d/c. Subjective Subjective Interval history since last seen: Ms Barrera states she coughed something up today. Aides at bedside do not know what it looked like. The patient denies dizziness, endorses shortness of breath, but not chest pain, endorses nausea, endorses lower abdominal pain, Exam Narrative Exam Narrative: General: Obese female, looks better, A&Ox3, sitting up in bed HEENT: EOMI, MMM, edentuous Heart: RRR, no m/r/g Lungs: CTAB Abdomen: soft, less distended, tender in lower abdomen Extremities: trace edema BLE's Objective Objective Clinical Data: Abnormal lab results 03/30/20 04/01/20 04/02/20 Range/Units 04:45 18:20 06:30 RBC (4.00-5.20) m/cumm Hgb (12.0-15.5) g/dL MCV (80-95) fL MCHC (32.0-36.0) g/dL RDW (11.7-14.6) % Absolute Lymphocytes (1.2-3.4) k/cumm Absolute Monocytes (0.11-0.7) k/cumm Sodium 147 H (136-145) mmol/L Chloride 108 H (98-107) mmol/L BUN 4 L (7-18) mg/dL Glucose 109 H D (74-106) mg/dL AST 50 H (15-37) U/L ALT 10 L (14-59) U/L C-Reactive Protein 2.04 H (0.0-0.3) mg/dL Albumin 2.9 L (3.4-5.0) g/dL Urine Blood Trace-lysed H (Negative) Ur Leukocyte Esterase Trace H (Negative) HCV RNA Qual (PCR) Detected A (Undetected) Hepatitis C RNA Quant [id number] H (Undetected) IU/mL 04/02/20 Range/Units 06:30 RBC 3.65 L (4.00-5.20) m/cumm Hgb 11.4 L (12.0-15.5) g/dL MCV 98.9 H (80-95) fL MCHC 31.6 L (32.0-36.0) g/dL RDW 15.5 H (11.7-14.6) % Absolute Lymphocytes 3.55 H (1.2-3.4) k/cumm Absolute Monocytes 0.88 H (0.11-0.7) k/cumm Sodium (136-145) mmol/L Chloride (98-107) mmol/L BUN (7-18) mg/dL Glucose (74-106) mg/dL AST (15-37) U/L ALT (14-59) U/L C-Reactive Protein (0.0-0.3) mg/dL Albumin (3.4-5.0) g/dL Urine Blood (Negative) Ur Leukocyte Esterase (Negative) HCV RNA Qual (PCR) (Undetected) Hepatitis C RNA Quant (Undetected) IU/mL Vital Signs Temperature 36.4 C L 04/02/20 07:10 Temperature Source Tympanic 04/02/20 07:10 Pulse 76 04/02/20 07:10 Pulse Rhythm Regular 04/02/20 08:00 Respiratory Rate 18 04/02/20 07:10 Respiratory Effort Non-Labored 04/02/20 08:00 Respiratory Depth Normal 04/02/20 08:00 Respiratory Pattern Normal 04/02/20 08:00 Blood Pressure 112/75 04/02/20 07:10 Blood Pressure Position Sitting 03/26/20 12:09 Pulse Oximetry 97 04/02/20 07:10 Oxygen Delivery Method Nasal Cannula 04/02/20 07:10 Oxygen Flow Rate 1 04/02/20 07:10 Pain Level 8 04/02/20 08:39 Comment 04/01/20 00:55 Intake & Output 04/01/20 04/02/20 04/02/20 23:59 11:59 23:59 Intake Total 1843.75 / 2898.75 810 / 1530 720 / 1530 Balance 1843.75 / 2898.75 810 / 1530 720 / 1530 Weight 80.7 kg Intake: IV 923.75 / 1938.75 0 / 0 Oral 920 / 960 810 / 1530 720 / 1530 Other: Urine Color Yellow Yellow Urine Odor Normal Normal Comment Grossly incontinent. Stool Size Small Small Stool Characteristics Soft Soft Liquid Brown Voiding Methods Diaper Incontinent Incontinent Laboratory Results WBC 8.50 k/cumm (4.4-10.8) 04/02/20 06:30 RBC 3.65 m/cumm (4.00-5.20) L 04/02/20 06:30 Hgb 11.4 g/dL (12.0-15.5) L 04/02/20 06:30 Hct 36.1 % (36.0-46.0) 04/02/20 06:30 MCV 98.9 fL (80-95) H 04/02/20 06:30 MCH 31.2 pg (27.0-33.0) 04/02/20 06:30 MCHC 31.6 g/dL (32.0-36.0) L 04/02/20 06:30 RDW 15.5 % (11.7-14.6) H 04/02/20 06:30 Plt Count 317 x1000/uL (130-400) 04/02/20 06:30 MPV 8.7 fL (8.0-11.0) 04/02/20 06:30 Immature Gran % 1.9 % 04/02/20 06:30 Neutrophils % 44.6 04/02/20 06:30 Band Neutrophils % Cancelled 03/28/20 07:12 Lymphocytes % 41.8 04/02/20 06:30 Atypical Lymphs % Cancelled 03/28/20 07:12 Monocytes % 10.4 04/02/20 06:30 Eosinophils % 1.1 04/02/20 06:30 Basophils % 0.2 04/02/20 06:30 Metamyelocytes % Cancelled 03/28/20 07:12 Myelocytes % Cancelled 03/28/20 07:12 Promyelocytes % Cancelled 03/28/20 07:12 Absolute Neutrophils 3.80 k/cumm (1.2-6.7) 04/02/20 06:30 Absolute Lymphocytes 3.55 k/cumm (1.2-3.4) H 04/02/20 06:30 Absolute Monocytes 0.88 k/cumm (0.11-0.7) H 04/02/20 06:30 Absolute Eosinophils 0.09 k/cumm (0.0-0.7) 04/02/20 06:30 Absolute Basophils 0.02 k/cumm (0.0-0.2) 04/02/20 06:30 Nucleated RBCs Cancelled 03/28/20 07:12 Differential Comment Cancelled 03/28/20 07:12 Other Cell Type Cancelled 03/28/20 07:12 RBC Morphology Cancelled 03/28/20 07:12 Polychromasia Cancelled 03/28/20 07:12 Hypochromasia Cancelled 03/28/20 07:12 Poikilocytosis Cancelled 03/28/20 07:12 Basophilic Stippling Cancelled 03/28/20 07:12 Anisocytosis Cancelled 03/28/20 07:12 Microcytosis Cancelled 03/28/20 07:12 Macrocytosis Cancelled 03/28/20 07:12 Spherocytes Cancelled 03/28/20 07:12 Target Cells Cancelled 03/28/20 07:12 Tear Drop Cells Cancelled 03/28/20 07:12 Ovalocytes Cancelled 03/28/20 07:12 Stomatocytes Cancelled 03/28/20 07:12 [place] Bodies Cancelled 03/28/20 07:12 [place] Cells Cancelled 03/28/20 07:12 Acanthocytes (Spur) Cancelled 03/28/20 07:12 Schistocytes Cancelled 03/28/20 07:12 ESR 49 mm/hr (0-30) H 03/31/20 06:13 Sodium 147 mmol/L (136-145) H 04/02/20 06:30 Potassium 3.8 mmol/L (3.5-5.1) 04/02/20 06:30 Chloride 108 mmol/L (98-107) H 04/02/20 06:30 Carbon Dioxide 28.8 mmol/L (21.0-32.0) 04/02/20 06:30 Anion Gap 10.2 mmol/L (3-11) 04/02/20 06:30 BUN 4 mg/dL (7-18) L 04/02/20 06:30 Creatinine 0.67 mg/dL (0.55-1.02) 04/02/20 06:30 Estimated GFR/1.73 m2 >= 60.00 (mL/min/1.73m2) 04/02/20 06:30 Glucose 109 mg/dL (74-106) H D 04/02/20 06:30 Lactate 1.8 mmol/L (0.6-1.4) H 03/29/20 08:00 Calcium 9.4 mg/dL (8.5-10.1) 04/02/20 06:30 Magnesium 1.9 mg/dL (1.8-2.4) 04/02/20 06:30 Total Bilirubin 0.3 mg/dL (0.2-1.0) 04/02/20 06:30 Conjugated Bilirubin 0.09 mg/dL (0.00-0.20) 04/02/20 06:30 AST 50 U/L (15-37) H 04/02/20 06:30 ALT 10 U/L (14-59) L 04/02/20 06:30 Alkaline Phosphatase 60 U/L (46-116) 04/02/20 06:30 C-Reactive Protein 2.04 mg/dL (0.0-0.3) H 04/02/20 06:30 Total Protein 7.2 g/dL (6.4-8.2) 04/02/20 06:30 Albumin 2.9 g/dL (3.4-5.0) L 04/02/20 06:30 Triglycerides 133 mg/dL (<150) 03/27/20 09:53 Total Cholesterol 150 mg/dL (<200) 03/27/20 09:53 LDL Cholesterol, Calc 72 mg/dL (<100) 03/27/20 09:53 HDL Cholesterol 52 mg/dL (40-60) 03/27/20 09:53 Lipase 385 U/L (73-393) 04/02/20 06:30 TSH 1.40 uIU/mL (0.36-3.74) 03/30/20 04:45 Urine Color Yellow (Yellow) 04/01/20 18:20 Urine Clarity Sl cloudy (Clear) 04/01/20 18:20 Urine pH 7.5 (5-8) 04/01/20 18:20 Ur Specific [place] 1.015 (1.005-1.025) 04/01/20 18:20 Urine Protein Negative mg/dL (Negative) 04/01/20 18:20 Urine Ketones Negative mg/dL (Negative) 04/01/20 18:20 Urine Blood Trace-lysed (Negative) H 04/01/20 18:20 Urine Nitrite Negative (Negative) 04/01/20 18:20 Urine Bilirubin Negative (Negative) 04/01/20 18:20 Urine Urobilinogen 0.2 EU/dL (Up TO 0.2) 04/01/20 18:20 Ur Leukocyte Esterase Trace (Negative) H 04/01/20 18:20 Urine RBC Negative HPF (0-2) 04/01/20 18:20 Urine WBC 3-5 HPF (0-5) 04/01/20 18:20 Ur Epithelial Cells Few HPF (Negative) 04/01/20 18:20 Urine Crystals Negative HPF (Negative) 04/01/20 18:20 Urine Bacteria Moderate HPF (Negative) 04/01/20 18:20 Urine Casts Negative LPF (Negative) 04/01/20 18:20 Urine Mucus Negative (Negative) 04/01/20 18:20 Urine Other Negative (Negative) 04/01/20 18:20 Ur Culture Indicated? Yes 04/01/20 18:20 Urine Glucose Negative mg/dL (Negative) 04/01/20 18:20 Vancomycin Trough 19.1 ug/mL (10.0-20.0) 03/31/20 11:15 COVID-19 PCR Negative (Negative) 03/26/20 17:15 Nasopharyn COVID-19 PCR Not Applicable 03/26/20 17:15 Hep Bs Antigen Negative (Negative) 03/30/20 04:45 Hep Bs Antibody Negative (See Note) 03/30/20 04:45 Hep Bs Antibody, Quant <3.1 mIU/mL (See Note) 03/30/20 04:45 Hep B Core Total Ab Negative (Negative) 03/30/20 04:45 Hepatitis C Antibody Reactive (Negative) A 03/30/20 04:45 HCV RNA Qual (PCR) Detected (Undetected) A 03/30/20 04:45 Hepatitis C RNA Quant [id number] IU/mL (Undetected) H 03/30/20 04:45 HIV 1&2 Ag/Ab, 4th Gen Negative (Negative) 03/31/20 06:13 Ref Test Perform Site [facility] lab 03/26/20 17:15 CXR ordered, pending
[2020-04-02] MEDS: predniSONE 10 MG TAB PO (14:33)
--- NOTE | 2020-04-02 15:17 | CMPROGNOTE_ITS ---
- If Service Date Differs Date of service: 04/02/20 Time of Service: 15:18 Care Management Progress Note S/O: Per report, Blakes diet will be advanced once she has a BM. She is anxiously awaiting more food, as this has been a big concern for her while at [facility]. Once she is able to tolerate an advanced diet, she will be ready for discharge. CM will continue to follow. A: Ginger is a 59 year old female admitted to [facility] 03/26/20 for Acute Pancreatitis. P: Ginger will return to the [facility] when ready per MD, she will transport via ambulance at time of discharge; coordinated by CM. CM will continue to follow and support discharge planning considerations.
[2020-04-02] MEDS: Mirtazapine 15 MG TAB PO (23:00)
[2020-04-02] MEDS: lamoTRIgine 100 MG TAB PO (23:00)
[2020-04-03] MEDS: Acetaminophen 325 MG TAB 650 MG PO ×2 (01:18→09:07)
[2020-04-03 02:58] LABS: COVID-19 RT-PCR UVMMC Result Negative (Negative)
[2020-04-03 03:25] VITALS: BP 110/70; PULSE 76; RESP 16; TEMP 36; O2SAT 99
[2020-04-03] MEDS: Heparin 5,000 UNITS/ML VIAL 5000 UNITS SC ×3 (06:06→22:28)
[2020-04-03] MEDS: Levothyroxine 125 MCG TAB PO (06:06)
[2020-04-03 07:22] VITALS: BP 108/66; PULSE 75; RESP 19; TEMP 36.7; O2SAT 97
[2020-04-03 08:24] LABS: Abs Immature Grans 0.15 k/cumm (0.0-0.09); Absolute Basophil Count 0.02 k/cumm (0.0-0.2); Absolute Eosinophil Count 0.12 k/cumm (0.0-0.7); Absolute Lymphocyte Count 3.91 k/cumm (1.2-3.4); Absolute Neutrophil Count 2.88 k/cumm (1.2-6.7); Basophils % 0.3; Eosinophils % 1.5; HCT 35.4 % (36.0-46.0); HGB 11.2 g/dL (12.0-15.5); Immature Grans % 1.9 %; Mean Corp. HGB Concentration 31.6 g/dL (32.0-36.0); Mean Corpuscular Hemoglobin 31.2 pg (27.0-33.0); Mean Corpuscular Volume 98.6 fL (80-95); Mean Platelet Volume 8.6 fL (8.0-11.0); Monocytes % 11.3; Platelet Count 332 x1000/uL (130-400); RBC 3.59 m/cumm (4.00-5.20); RBC Distribution Width 15.9 % (11.7-14.6); White Blood Cell Count 7.98 k/cumm (4.4-10.8)
[2020-04-03 08:33] LABS: Anion Gap 7.2 mmol/L (3-11); BUN 6 mg/dL (7-18); CO2 29.8 mmol/L (21.0-32.0); CREATININE 0.65 mg/dL (0.55-1.02); Calcium 9.1 mg/dL (8.5-10.1); Chloride 107 mmol/L (98-107); Glucose 147 mg/dL (74-106); Magnesium 1.8 mg/dL (1.8-2.4); Sodium 144 mmol/L (136-145)
[2020-04-03 08:45] LABS: Potassium 2.7 mmol/L (3.5-5.1)
[2020-04-03] MEDS: lamoTRIgine 25 MG TAB 50 MG PO (09:04)
[2020-04-03] MEDS: Carbidopa 25/Levodopa 100 TAB PO ×4 (09:04→19:56)
[2020-04-03] MEDS: Magnesium Chloride 64 MG TABCR PO ×2 (09:05→19:56)
[2020-04-03] MEDS: Multivitamin TAB 1 TAB PO (09:06)
[2020-04-03] MEDS: QUEtiapine 100 MG TAB PO ×3 (09:06→19:56)
[2020-04-03] MEDS: Aspirin 81 MG CHEW PO (09:06)
[2020-04-03] MEDS: traZODone 50 MG TAB 25 MG PO ×2 (09:08→19:57)
[2020-04-03] MEDS: predniSONE 10 MG TAB PO (09:08)
[2020-04-03] MEDS: Normal Saline Flush 10 ML SYR IVP ×3 (09:09→20:53)
[2020-04-03] MEDS: Insulin Aspart 300 UNITS/3 ML PEN SC ×4 (09:12→22:28)
[2020-04-03] MEDS: cefTRIAXone 1 GM/50 ML BAG IVPB (09:17)
[2020-04-03] MEDS: buPROPion-XL 150 MG TABCR 450 MG PO (09:37)
[2020-04-03] MEDS: Pantoprazole 40 MG VIAL IVP (09:37)
[2020-04-03] MEDS: Polyethylene Glycol 3350 17 GM PACKET PO ×2 (09:38→19:56)
--- NOTE | 2020-04-03 10:26 | NUR.NOTE ---
Nursing Note: Received order for a straight cath to obtain sample from patient for a UA. Rationale was explained to patient and she gives verbal consent. With peer CASE WORK AIDE patient is put in a supine position and cleaned and prepped. Patient had just been grossly incontinent of urine as attempt was started. Using sterile technique 20 cc was gathered and sent to the lab. Patient was cleaned up a new brief was put on and patient was made comfortable and left with call mariano in reach
[2020-04-03 10:27] LABS: Bilirubin Negative (Negative); Blood Moderate (Negative); Clarity Clear (Clear); Glucose Negative (Negative); Ketones Negative (Negative); Leukocyte Esterase Trace (Negative); Nitrite Negative (Negative); Specific Gravity 1.015 (1.005-1.025); Urobilinogen 0.2 EU/dL (Up TO 0.2)
[2020-04-03 10:37] LABS: WBC 20-50 HPF (0-5)
[2020-04-03 10:38] LABS: Bacteria Few HPF (Negative); C & S Indicated? C&S Done As Ordered; Casts Negative LPF (Negative); Crystals Negative HPF (Negative); Epithelial Cells Rare HPF (Negative); Mucus Trace (Negative); Other Cells Few Renal (Negative)
[2020-04-03] MEDS: POTASSIUM CHLORIDE 20 MEQ/100 ML BAG 50 MEQ IVPB ×2 (10:44→13:05)
[2020-04-03] MEDS: Potassium Chloride 10 MEQ CAPCR 40 MEQ PO (10:44)
--- NOTE | 2020-04-03 11:14 | PDOC.CMPRO ---
- If Service Date Differs Date of service: 04/03/20 Time of Service: 11:16 Care Management Progress Note S/O: Ginger was reviewed at interdisciplinary rounds today. Per report, her pancreatitis is resolved, and her diet is being advanced as tolerated. She may be ready for discharge on Sunday, pending any changes in her medical condition. She was re swabbed for Covid, which was negative. CM will continue to follow. A: Ginger is a 59 year old female admitted to [facility] 03/26/20 for Acute Pancreatitis. P: Ginger will return to the [facility] when ready per MD, she will transport via ambulance at time of discharge; coordinated by CM. CM will continue to follow and support discharge planning considerations.
[2020-04-03 11:36] VITALS: BP 115/76; PULSE 78; RESP 18; TEMP 36.6; O2SAT 98
--- NOTE | 2020-04-03 13:16 | W.PM.PROGNOT ---
Date of Service Date of service: 04/03/20 Time of Service: 13:27 Assessment and Plan Assessment and plan (1) Acute pancreatitis: Status: Resolved Assessment and plan: Complicated by an ileus but no evidence for pancreatic necrosis or pseudocyst. It is felt that her pancreatitis was secondary to her Depakote which is since been discontinued. She continues on all of her other psychiatric medications including Seroquel and Lamictal. Her abdominal distention and nausea seems worse today after her lunch. If she fails to have a bowel movement this afternoon with laxatives then I will back off her diet to clear liquids and recheck a KUB as well as repeat her lipase Qualifiers: Pancreatitis type: drug induced Acute pancreatitis complication: no infection or necrosis Qualified Code(s): K85.30 - Drug induced acute pancreatitis without necrosis or infection (2) Ileus: Status: Acute Assessment and plan: Her diet may have been advanced too quickly. She may need to go back to a clear liquid diet until she is having more regular bowel movements.. (3) UTI (urinary tract infection): Status: Acute Assessment and plan: Polymicrobial, due to E. Coli and proteus -repeat culture from April 01, 2022 showed E. coli. Another culture was sent today. CT scan of the abdomen and pelvis on admission shows evidence of chronic scarring of the kidney suggestive of chronic pyelonephritis. However there is no acute perinephric stranding on her current CT to suggest an acute pyelonephritis. Struvite stone is of concern. Dr Alvarez feels she may need ureteroscopy/laser lithotripsy of the kidney stones on the R - as outpatient. On ceftriaxone (day 7) and clinically improving. Awaiting repeat urine cultures. Continue steroid taper - transition to PO. However if she has to go n.p.o. again then I will put her on on IV corticosteroids. Qualifiers: Urinary tract infection type: site unspecified (4) Hypotension: Status: Resolved Assessment and plan: Due to acute on chronic adrenal insufficiency in setting of impending septic shock due to the above UTI. Resolved with stress dose steroids and abx - taper steroids carefully. (5) Constipation: Status: Acute Assessment and plan: vs ileus. We will put her on scheduled doses of docusate and continue with her MiraLAX. Will add senna to her regimen. She fails to have a bowel movement after the Dulcolax suppository and we will try mag citrate. Qualifiers: Constipation type: unspecified constipation type Qualified Code(s): K59.00 - Constipation, unspecified (6) Bipolar 1 disorder: Status: Chronic Assessment and plan: Currently doing ok. Read discussion above re stopping depakote (causes pancreatitis). Continue increased dose of lamictal - evening dose increased to 100 mg, am dose to stay @ 50 mg. In two weeks, am dose should also be increased to 100 mg. Seroquel could be causing pancreatitis as well - if d/c'ed, ECT needs to be considered. Appreciate psychiatry consult (7) Ambulatory dysfunction: Status: Chronic Assessment and plan: PT consulted (8) Chronic chest pain: Status: Chronic Assessment and plan: Continue tylenol/heat. 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 There is concerned that she may have ongoing PUBLIC RELATIONS [employer]IST vasculitis. Once she is recovered from her UTI she can resume her CellCept. She was treated with stress dose corticosteroids during this admission for what was felt to be an acute adrenal insufficiency in the setting of impending sepsis. She is now back on prednisone although if she goes n.p.o. she will need to be put back on IV corticosteroids. She will need to resume follow-up with rheumatology and neurology upon discharge. Dr. Stanford would like her to have a transthoracic echocardiogram as well as a repeat MRI of the brain as an outpatient. See Dr. Stanford's notes. (10) DVT prophylaxis: Status: Acute Assessment and plan: heparin SC (11) Discharge planning issues: Status: Acute Assessment and plan: DNR/DNI - code status changed with palliative care. Will be able to be d/c'ed back to SNF on Sunday. Repeat COVID-19 test from April 02, 2020 was negative. Subjective Subjective Interval history since last seen: Patient with abdominal distention and some slight left-sided abdominal pain since having lunch. Also feels nauseated but no vomiting. She is passing flatus but no BM today so far. Nursing staff can go ahead and give her her Dulcolax suppository and will order a dose of milk of magnesia. If she is not passing a bowel movement this afternoon then I will decrease her oral intake status to clear liquids and check a KUB. Her ileus may have worsened. Patient has been incontinent of urine as well as unable to tell when she is having a bowel movement. Repeat urine was sent for UA and culture today to see if she is clearing her UTI. Last culture from April 01 still showed 10-50,000 colonies E. coli. Previous culture was positive for Proteus as well as E. coli. She has right-sided nephrolithiasis but no obstructive uropathy. She also has cholelithiasis but no evidence for acute cholecystitis. Exam Narrative Exam Narrative: Obese middle-aged female sitting up in a chair who is alert and oriented. Lungs are clear to auscultation. Heart is regular rate and rhythm without murmur rub or gallop. Abdomen is obese distended soft with some mild left-sided tenderness in the left lower quadrant without guarding or rebound tenderness. She has very active bowel sounds. Extremities without peripheral cyanosis or edema. Right arm is contracted. Objective Objective Clinical Data: Abnormal lab results 04/03/20 04/03/20 04/03/20 Range/Units 07:31 07:31 10:15 RBC 3.59 L (4.00-5.20) m/cumm Hgb 11.2 L (12.0-15.5) g/dL Hct 35.4 L (36.0-46.0) % MCV 98.6 H (80-95) fL MCHC 31.6 L (32.0-36.0) g/dL RDW 15.9 H (11.7-14.6) % Absolute Lymphocytes 3.91 H (1.2-3.4) k/cumm Absolute Monocytes 0.90 H (0.11-0.7) k/cumm Potassium 2.7 L* D (3.5-5.1) mmol/L BUN 6 L (7-18) mg/dL Glucose 147 H (74-106) mg/dL Urine Blood Moderate H (Negative) Ur Leukocyte Esterase Trace H (Negative) Urine RBC 3-5 H (0-2) HPF Urine WBC 20-50 H (0-5) HPF Vital Signs Temperature 36.6 C 04/03/20 11:36 Temperature Source Temporal Artery Scan 04/03/20 11:36 Pulse 78 07/11/20 11:36 Pulse Rhythm Regular 04/03/20 09:00 Respiratory Rate 18 04/03/20 11:36 Respiratory Effort 04/03/20 09:00 Respiratory Depth Normal 04/03/20 09:00 Respiratory Pattern Normal 04/03/20 09:00 Blood Pressure 115/76 04/03/20 11:36 Blood Pressure Position Sitting 03/26/20 12:09 Pulse Oximetry 98 04/03/20 11:36 Oxygen Delivery Method Nasal Cannula 04/03/20 11:36 Oxygen Flow Rate 1 04/03/20 11:36 Pain Level 6 04/03/20 11:36 Comment 04/02/20 15:57 Intake & Output 04/02/20 04/03/20 04/03/20 23:59 11:59 23:59 Intake Total 860 / 1757.5 900 / 1000 100 / 1000 Output Total Balance 860 / 1757.5 880 / 980 100 / 980 Weight 80.2 kg Intake: IV 20 / 107.5 50 / 150 100 / 150 Oral 840 / 1650 850 / 850 Output: Urine Other: Urine Color Straw Yellow Urine Appearance Clear Clear Urine Odor Strong Comment not incontinent at this time. Stool Size Small Stool Characteristics Soft Brown Voiding Methods Incontinent Diaper Incontinent Laboratory Results WBC 7.98 k/cumm (4.4-10.8) 04/03/20 07:31 RBC 3.59 m/cumm (4.00-5.20) L 04/03/20 07:31 Hgb 11.2 g/dL (12.0-15.5) L 04/03/20 07:31 Hct 35.4 % (36.0-46.0) L 04/03/20 07:31 MCV 98.6 fL (80-95) H 04/03/20 07:31 MCH 31.2 pg (27.0-33.0) 04/03/20 07:31 MCHC 31.6 g/dL (32.0-36.0) L 04/03/20 07:31 RDW 15.9 % (11.7-14.6) H 04/03/20 07:31 Plt Count 332 x1000/uL (130-400) 04/03/20 07:31 MPV 8.6 fL (8.0-11.0) 04/03/20 07:31 Immature Gran % 1.9 % 04/03/20 07:31 Neutrophils % 36.0 04/03/20 07:31 Band Neutrophils % Cancelled 03/28/20 07:12 Lymphocytes % 49.0 04/03/20 07:31 Atypical Lymphs % Cancelled 03/28/20 07:12 Monocytes % 11.3 04/03/20 07:31 Eosinophils % 1.5 04/03/20 07:31 Basophils % 0.3 04/03/20 07:31 Metamyelocytes % Cancelled 03/28/20 07:12 Myelocytes % Cancelled 03/28/20 07:12 Promyelocytes % Cancelled 03/28/20 07:12 Absolute Neutrophils 2.88 k/cumm (1.2-6.7) 04/03/20 07:31 Absolute Lymphocytes 3.91 k/cumm (1.2-3.4) H 04/03/20 07:31 Absolute Monocytes 0.90 k/cumm (0.11-0.7) H 04/03/20 07:31 Absolute Eosinophils 0.12 k/cumm (0.0-0.7) 04/03/20 07:31 Absolute Basophils 0.02 k/cumm (0.0-0.2) 04/03/20 07:31 Nucleated RBCs Cancelled 03/28/20 07:12 Differential Comment Cancelled 03/28/20 07:12 Other Cell Type Cancelled 03/28/20 07:12 RBC Morphology Cancelled 03/28/20 07:12 Polychromasia Cancelled 03/28/20 07:12 Hypochromasia Cancelled 03/28/20 07:12 Poikilocytosis Cancelled 03/28/20 07:12 Basophilic Stippling Cancelled 03/28/20 07:12 Anisocytosis Cancelled 03/28/20 07:12 Microcytosis Cancelled 03/28/20 07:12 Macrocytosis Cancelled 03/28/20 07:12 Spherocytes Cancelled 03/28/20 07:12 Target Cells Cancelled 03/28/20 07:12 Tear Drop Cells Cancelled 03/28/20 07:12 Ovalocytes Cancelled 03/28/20 07:12 Stomatocytes Cancelled 03/28/20 07:12 [place] Bodies Cancelled 03/28/20 07:12 Mikki Cells Cancelled 03/28/20 07:12 Acanthocytes (Spur) Cancelled 03/28/20 07:12 Schistocytes Cancelled 03/28/20 07:12 ESR 49 mm/hr (0-30) H 03/31/20 06:13 Sodium 144 mmol/L (136-145) 04/03/20 07:31 Potassium Cancelled 04/03/20 14:00 Chloride 107 mmol/L (98-107) 04/03/20 07:31 Carbon Dioxide 29.8 mmol/L (21.0-32.0) 04/03/20 07:31 Anion Gap 7.2 mmol/L (3-11) 04/03/20 07:31 BUN 6 mg/dL (7-18) L 04/03/20 07:31 Creatinine 0.65 mg/dL (0.55-1.02) 04/03/20 07:31 Estimated GFR/1.73 m2 >= 60.00 (mL/min/1.73m2) 04/03/20 07:31 Glucose 147 mg/dL (74-106) H 04/03/20 07:31 Lactate 1.8 mmol/L (0.6-1.4) H 03/29/20 08:00 Calcium 9.1 mg/dL (8.5-10.1) 04/03/20 07:31 Magnesium 1.8 mg/dL (1.8-2.4) 04/03/20 07:31 Total Bilirubin 0.3 mg/dL (0.2-1.0) 04/02/20 06:30 Conjugated Bilirubin 0.09 mg/dL (0.00-0.20) 04/02/20 06:30 AST 50 U/L (15-37) H 04/02/20 06:30 ALT 10 U/L (14-59) L 04/02/20 06:30 Alkaline Phosphatase 60 U/L (46-116) 04/02/20 06:30 C-Reactive Protein 2.04 mg/dL (0.0-0.3) H 04/02/20 06:30 Total Protein 7.2 g/dL (6.4-8.2) 04/02/20 06:30 Albumin 2.9 g/dL (3.4-5.0) L 04/02/20 06:30 Triglycerides 133 mg/dL (<150) 03/27/20 09:53 Total Cholesterol 150 mg/dL (<200) 03/27/20 09:53 LDL Cholesterol, Calc 72 mg/dL (<100) 03/27/20 09:53 HDL Cholesterol 52 mg/dL (40-60) 03/27/20 09:53 Lipase 385 U/L (73-393) 04/02/20 06:30 TSH 1.40 uIU/mL (0.36-3.74) 03/30/20 04:45 Urine Color Yellow (Yellow) 04/03/20 10:15 Urine Clarity Clear (Clear) 04/03/20 10:15 Urine pH 8.0 (5-8) 04/03/20 10:15 Ur Specific [place] 1.015 (1.005-1.025) 04/03/20 10:15 Urine Protein Negative mg/dL (Negative) 04/03/20 10:15 Urine Ketones Negative mg/dL (Negative) 04/03/20 10:15 Urine Blood Moderate (Negative) H 04/03/20 10:15 Urine Nitrite Negative (Negative) 04/03/20 10:15 Urine Bilirubin Negative (Negative) 04/03/20 10:15 Urine Urobilinogen 0.2 EU/dL (Up TO 0.2) 04/03/20 10:15 Ur Leukocyte Esterase Trace (Negative) H 04/03/20 10:15 Urine RBC 3-5 HPF (0-2) H 04/03/20 10:15 Urine WBC 20-50 HPF (0-5) H 04/03/20 10:15 Ur Epithelial Cells Rare HPF (Negative) 04/03/20 10:15 Urine Crystals Negative HPF (Negative) 04/03/20 10:15 Urine Bacteria Few HPF (Negative) 04/03/20 10:15 Urine Casts Negative LPF (Negative) 04/03/20 10:15 Urine Mucus Trace (Negative) 04/03/20 10:15 Urine Other Few renal (Negative) 04/03/20 10:15 Ur Culture Indicated? C&s done as ordered 04/03/20 10:15 Urine Glucose Negative mg/dL (Negative) 04/03/20 10:15 Vancomycin Trough 19.1 ug/mL (10.0-20.0) 03/31/20 11:15 COVID-19 PCR Cancelled 04/02/20 16:00 COVID-19 PCR Negative (Negative) 04/02/20 16:00 Nasopharyn COVID-19 PCR Cancelled 04/02/20 16:00 Nasopharyn COVID-19 PCR Not Applicable 04/02/20 16:00 Hep Bs Antigen Negative (Negative) 03/30/20 04:45 Hep Bs Antibody Negative (See Note) 03/30/20 04:45 Hep Bs Antibody, Quant <3.1 mIU/mL (See Note) 03/30/20 04:45 Hep B Core Total Ab Negative (Negative) 03/30/20 04:45 Hepatitis C Antibody Reactive (Negative) A 03/30/20 04:45 HCV RNA Qual (PCR) Detected (Undetected) A 03/30/20 04:45 Hepatitis C RNA Quant [id number] IU/mL (Undetected) H 03/30/20 04:45 HIV 1&2 Ag/Ab, 4th Gen Negative (Negative) 03/31/20 06:13 Ref Test Perform Site Cancelled 04/02/20 16:00 Ref Test Perform Site [facility] 04/02/20 16:00
[2020-04-03] MEDS: Ondansetron 4 MG/2 ML VIAL IVP (13:23)
[2020-04-03] MEDS: Bisacodyl 10 MG SUPP PR (13:44)
[2020-04-03] MEDS: Milk of Magnesia 30 ML CUP PO (14:01)
[2020-04-03 15:30] VITALS: BP 110/70; PULSE 85; RESP 20; TEMP 36.5; O2SAT 98
--- NOTE | 2020-04-03 18:23 | NUR.NOTE ---
Nursing Note: I have reviewed the charting of Qian Navarro RN, and found it to be complete
[2020-04-03 19:10] VITALS: BP 100/67; PULSE 83; RESP 18; TEMP 36.2; O2SAT 96
[2020-04-03] MEDS: Docusate Sodium 100 MG CAP PO (19:57)
[2020-04-03] MEDS: lamoTRIgine 100 MG TAB PO (22:27)
[2020-04-03] MEDS: Mirtazapine 15 MG TAB PO (22:27)
[2020-04-03] MEDS: Senna TAB 1 TAB PO (22:27)
[2020-04-03] MEDS: Melatonin 3 MG TAB PO (22:28)
[2020-04-03 23:57] VITALS: BP 107/71; PULSE 80; RESP 18; TEMP 36.2; O2SAT 98
--- NOTE | 2020-04-04 | DI.RAD_ITS ---
EXAM: 2D digital imaging was performed. CLINICAL HISTORY: abdominal distension, pain. COMPARISON: CR XR ABDOMEN FLAT PLATE from 04/01/2020 TECHNIQUE: Supine views of the abdomen performed. FINDINGS: The bowel gas pattern is nonspecific without evidence to suggest obstruction. Small amount of stool is seen in the colon. No acute osseous abnormality is identified. Vascular calcifications are prese nt. Stable round calcifications are seen in the soft tissues. IMPRESSION: Nonobstructive bowel gas pattern. DATA REPOSITORY: RADIATION DOSE DELIVERED:
[2020-04-04] MEDS: Acetaminophen 325 MG TAB 650 MG PO ×3 (00:05→23:04)
[2020-04-04 03:34] VITALS: BP 102/65; PULSE 82; RESP 18; TEMP 36.7; O2SAT 97
[2020-04-04] MEDS: Heparin 5,000 UNITS/ML VIAL 5000 UNITS SC ×3 (06:14→22:23)
[2020-04-04] MEDS: Levothyroxine 125 MCG TAB PO (06:14)
[2020-04-04 07:24] VITALS: BP 106/60; PULSE 78; RESP 19; TEMP 36.5; O2SAT 96
--- NOTE | 2020-04-04 08:26 | CMPROGNOTE_ITS ---
- If Service Date Differs Date of service: 04/04/20 Time of Service: 08:26 Care Management Progress Note S/O: Ginger was sitting up in bed when CM met with her. She states that she was feeling better and asked for a popsicle. Her nurse did not approve the request at this time as Ginger had already consumed 2 breakfast trays of food and was complaining of feeling bloated. Ginger had developed an ileus which resolved and then was found to be constipated. A bowel regimen was initiated with some success. The provider has ordered another KUB to rule out a recurrence of an ileus. She may be ready for discharge on Sunday, pending any changes in her medical condition. She was re swabbed for Covid, which was negative. CM will continue to follow. A: Ginger is a 59 year old female admitted to [facility] 03/26/20 for Acute Pancreatitis. P: Ginger will return to the [facility] when ready per MD, she will transport via ambulance at time of discharge; coordinated by CM. CM will continue to follow and support discharge planning considerations.
[2020-04-04] MEDS: Polyethylene Glycol 3350 17 GM PACKET PO ×2 (08:27→20:31)
[2020-04-04] MEDS: Pantoprazole 40 MG VIAL IVP (08:28)
[2020-04-04] MEDS: Normal Saline Flush 10 ML SYR IVP ×2 (08:29→12:25)
[2020-04-04] MEDS: predniSONE 10 MG TAB PO (08:29)
[2020-04-04] MEDS: traZODone 50 MG TAB 25 MG PO ×2 (08:30→20:29)
[2020-04-04] MEDS: QUEtiapine 100 MG TAB PO ×3 (08:30→20:29)
[2020-04-04] MEDS: lamoTRIgine 25 MG TAB 50 MG PO (08:31)
[2020-04-04] MEDS: buPROPion-XL 150 MG TABCR 450 MG PO (08:31)
[2020-04-04] MEDS: Multivitamin TAB 1 TAB PO (08:32)
[2020-04-04] MEDS: Aspirin 81 MG CHEW PO (08:32)
[2020-04-04] MEDS: Docusate Sodium 100 MG CAP PO ×2 (08:32→20:29)
[2020-04-04] MEDS: Carbidopa 25/Levodopa 100 TAB PO ×4 (08:34→20:29)
[2020-04-04] MEDS: Potassium Chloride 10 MEQ CAPCR 20 MEQ PO (08:34)
[2020-04-04] MEDS: Magnesium Chloride 64 MG TABCR PO ×2 (08:35→20:30)
[2020-04-04] MEDS: Insulin Aspart 300 UNITS/3 ML PEN SC ×4 (08:36→23:04)
[2020-04-04] MEDS: cefTRIAXone 1 GM/50 ML BAG IVPB (08:48)
[2020-04-04 11:29] VITALS: BP 120/74; PULSE 84; RESP 18; TEMP 36.6; O2SAT 97
--- NOTE | 2020-04-04 12:44 | PGE_ITS ---
Date of Service Date of service: 04/04/20 Time of Service: 12:44 Assessment and Plan Assessment and plan (1) Constipation: Status: Acute Assessment and plan: I do not feel that she has an ileus however I will check a KUB. Her last KUB from 3 days ago suggested that she was just constipated with a large amount of stool in the rectum with remain portions of the colon showing normal caliber. I have ordered a soapsuds enema and another Dulcolax suppository to be given. Patient is not on any narcotic analgesics so I doubt that Relistor will have any impact. She may need multiple enemas to clear out her distal colon and rectum Qualifiers: Constipation type: unspecified constipation type Qualified Code(s): K59.00 - Constipation, unspecified (2) Ileus: Status: Acute Assessment and plan: As per assessment and plan under constipation. (3) UTI (urinary tract infection): Status: Acute Assessment and plan: Polymicrobial, due to E. Coli and proteus -repeat culture from April 01, 2022 showed E. coli. Another culture was sent today. CT scan of the abdomen and pelvis on admission shows evidence of chronic scarring of the kidney suggestive of chronic pyelonephritis. However there is no acute perinephric stranding on her current CT to suggest an acute pyelonephritis. Struvite stone is of concern. Dr Alvarez feels she may need ureteroscopy/laser lithotripsy of the kidney stones on the R - as outpatient. On ceftriaxone (day 7) and clinically improving. Awaiting repeat urine cultures. Continue steroid taper - transition to PO. However if she has to go n.p.o. again then I will put her on on IV corticosteroids. Qualifiers: Urinary tract infection type: site unspecified (4) Acute pancreatitis: Status: Resolved Assessment and plan: This was complicated by an ileus and subsequent constipation. Her pancreatitis has resolved. It still not clear as to the cause of her pancreatitis. Dr. Osorio feels it was due to her Depakote however the patient also has cholelithiasis however MRCP did not show any biliary dilatation or choledocholithiasis. I still suspect that this was secondary to her cholelithiasis and she probably had already passed the gallstone when she presented to the hospital. Nevertheless the patient remains off of Depakote and has had no further recurrence of her pancreatitis. If she has recurrent pancreatitis and I think further evaluation with an ERCP would be warranted. Qualifiers: Acute pancreatitis complication: no infection or necrosis Pancreatitis type: drug induced Qualified Code(s): K85.30 - Drug induced acute pancreatitis without necrosis or infection (5) Bipolar 1 disorder: Status: Chronic Assessment and plan: Continue increased dose of lamictal - evening dose increased to 100 mg, am dose to stay @ 50 mg. In two weeks, am dose should also be increased to 100 mg. (6) Ambulatory dysfunction: Status: Chronic Assessment and plan: PT consulted (7) Chronic chest pain: Status: Chronic Assessment and plan: Continue tylenol/heat. 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 There is concerned that she may have ongoing [employer] vasculitis. Once she is recovered from her UTI she can resume her CellCept. She was treated with stress dose corticosteroids during this admission for what was felt to be an acute adrenal insufficiency in the setting of impending sepsis. She is now back on prednisone although if she goes n.p.o. she will need to be put back on IV corticosteroids. She will need to resume follow-up with rheumatology and neurology upon discharge. Dr. Stanford would like her to have a transthoracic echocardiogram as well as a repeat MRI of the brain as an outpatient. See Dr. Stanford's notes. (9) DVT prophylaxis: Status: Acute Assessment and plan: heparin SC (10) Discharge planning issues: Status: Acute Assessment and plan: DNR/DNI - code status changed with palliative care. Will be able to be d/c'ed back to SNF on Sunday. Repeat COVID-19 test from April 02, 2020 was negative. The detention would like two negative COVID 19 test t herefore one was ordered stat this morning Subjective Subjective Interval history since last seen: Patient states she feels bloated but this has not stopped her from eating. She had a voracious appetite and ate all of her lunch. Postprandial she does have some abdominal discomfort and a feeling of bloating. On physical examination she does have abdominal distention. She has active bowel sounds throughout her abdomen. I will get a KUB abdominal x-ray to see if there is any ileus or obstruction or just constipation. On her last diagnostic imaging from 3 days ago she had a large quantity of stool in her rectum. Yesterday she had liquid diarrhea after being given milk of magnesia and Colace and a Dulcolax suppository. She has had no bowel movement today. Exam Narrative Exam Narrative: Obese female sitting up in bed being fed her lunch. Lungs are clear to auscultation. Heart is regular rate and rhythm. Abdomen is distended but soft with minimal tenderness over the periumbilical area she has active bowel sounds in all 4 quadrants and there is no guarding or rebound tenderness. Digital rectal exam was performed while chaperoned by her L NA and her RN. Patient has normal rectal tone and a large firm stool ball was palpated in the upper rectal vault for which I removed a small amount of stool but guaiac negative. Objective Objective Clinical Data: Vital Signs Temperature 36.6 C 04/04/20 11:29 Temperature Source Temporal Artery Scan 04/04/20 11:29 Pulse 84 04/04/20 11:29 Pulse Rhythm Regular 04/03/20 23:45 Respiratory Rate 18 04/04/20 11:29 Respiratory Effort 04/03/20 23:45 Respiratory Depth Normal 04/03/20 23:45 Respiratory Pattern Normal 04/03/20 23:45 Blood Pressure 120/74 04/04/20 11:29 Blood Pressure Position Sitting 03/26/20 12:09 Pulse Oximetry 97 04/04/20 11:29 Oxygen Delivery Method Nasal Cannula 04/04/20 11:29 Oxygen Flow Rate 1 04/04/20 11:29 Pain Level 6 04/04/20 11:29 Comment 04/02/20 15:57 Intake & Output 04/03/20 04/04/20 04/04/20 23:59 11:59 23:59 Intake Total 770 / 1670 1020 / 1070 50 / 1070 Balance 770 / 1650 1020 / 1070 50 / 1070 Weight 78 kg Intake: IV 110 / 160 50 / 50 Oral 660 / 1510 1020 / 1020 Other: Urine Appearance Clear Comment med-large urine incontinence. CLEANSED AND BARRIER CREAM APPLIED. Stool Size Copious Stool Characteristics Liquid Voiding Methods Diaper Diaper Incontinent Laboratory Results WBC 7.98 k/cumm (4.4-10.8) 04/03/20 07:31 RBC 3.59 m/cumm (4.00-5.20) L 04/03/20 07:31 Hgb 11.2 g/dL (12.0-15.5) L 04/03/20 07:31 Hct 35.4 % (36.0-46.0) L 04/03/20 07:31 MCV 98.6 fL (80-95) H 04/03/20 07:31 MCH 31.2 pg (27.0-33.0) 04/03/20 07:31 MCHC 31.6 g/dL (32.0-36.0) L 04/03/20 07:31 RDW 15.9 % (11.7-14.6) H 04/03/20 07:31 Plt Count 332 x1000/uL (130-400) 04/03/20 07:31 MPV 8.6 fL (8.0-11.0) 04/03/20 07:31 Immature Gran % 1.9 % 04/03/20 07:31 Neutrophils % 36.0 04/03/20 07:31 Band Neutrophils % Cancelled 03/28/20 07:12 Lymphocytes % 49.0 04/03/20 07:31 Atypical Lymphs % Cancelled 03/28/20 07:12 Monocytes % 11.3 04/03/20 07:31 Eosinophils % 1.5 04/03/20 07:31 Basophils % 0.3 04/03/20 07:31 Metamyelocytes % Cancelled 03/28/20 07:12 Myelocytes % Cancelled 03/28/20 07:12 Promyelocytes % Cancelled 03/28/20 07:12 Absolute Neutrophils 2.88 k/cumm (1.2-6.7) 04/03/20 07:31 Absolute Lymphocytes 3.91 k/cumm (1.2-3.4) H 04/03/20 07:31 Absolute Monocytes 0.90 k/cumm (0.11-0.7) H 04/03/20 07:31 Absolute Eosinophils 0.12 k/cumm (0.0-0.7) 04/03/20 07:31 Absolute Basophils 0.02 k/cumm (0.0-0.2) 04/03/20 07:31 Nucleated RBCs Cancelled 03/28/20 07:12 Differential Comment Cancelled 03/28/20 07:12 Other Cell Type Cancelled 03/28/20 07:12 RBC Morphology Cancelled 03/28/20 07:12 Polychromasia Cancelled 03/28/20 07:12 Hypochromasia Cancelled 03/28/20 07:12 Poikilocytosis Cancelled 03/28/20 07:12 Basophilic Stippling Cancelled 03/28/20 07:12 Anisocytosis Cancelled 03/28/20 07:12 Microcytosis Cancelled 03/28/20 07:12 Macrocytosis Cancelled 03/28/20 07:12 Spherocytes Cancelled 03/28/20 07:12 Target Cells Cancelled 03/28/20 07:12 Tear Drop Cells Cancelled 03/28/20 07:12 Ovalocytes Cancelled 03/28/20 07:12 Stomatocytes Cancelled 03/28/20 07:12 [place] Bodies Cancelled 03/28/20 07:12 [place] Cells Cancelled 03/28/20 07:12 Acanthocytes (Spur) Cancelled 03/28/20 07:12 Schistocytes Cancelled 03/28/20 07:12 ESR 49 mm/hr (0-30) H 03/31/20 06:13 Sodium 144 mmol/L (136-145) 04/03/20 07:31 Potassium 5.0 mmol/L (3.5-5.1) D 04/03/20 14:55 Chloride 107 mmol/L (98-107) 04/03/20 07:31 Carbon Dioxide 29.8 mmol/L (21.0-32.0) 04/03/20 07:31 Anion Gap 7.2 mmol/L (3-11) 04/03/20 07:31 BUN 6 mg/dL (7-18) L 04/03/20 07:31 Creatinine 0.65 mg/dL (0.55-1.02) 04/03/20 07:31 Estimated GFR/1.73 m2 >= 60.00 (mL/min/1.73m2) 04/03/20 07:31 Glucose 147 mg/dL (74-106) H 04/03/20 07:31 Lactate 1.8 mmol/L (0.6-1.4) H 03/29/20 08:00 Calcium 9.1 mg/dL (8.5-10.1) 04/03/20 07:31 Magnesium 1.8 mg/dL (1.8-2.4) 04/03/20 07:31 Total Bilirubin 0.3 mg/dL (0.2-1.0) 04/02/20 06:30 Conjugated Bilirubin 0.09 mg/dL (0.00-0.20) 04/02/20 06:30 AST 50 U/L (15-37) H 04/02/20 06:30 ALT 10 U/L (14-59) L 04/02/20 06:30 Alkaline Phosphatase 60 U/L (46-116) 04/02/20 06:30 C-Reactive Protein 2.04 mg/dL (0.0-0.3) H 04/02/20 06:30 Total Protein 7.2 g/dL (6.4-8.2) 04/02/20 06:30 Albumin 2.9 g/dL (3.4-5.0) L 04/02/20 06:30 Triglycerides 133 mg/dL (<150) 03/27/20 09:53 Total Cholesterol 150 mg/dL (<200) 03/27/20 09:53 LDL Cholesterol, Calc 72 mg/dL (<100) 03/27/20 09:53 HDL Cholesterol 52 mg/dL (40-60) 03/27/20 09:53 Lipase 385 U/L (73-393) 04/02/20 06:30 TSH 1.40 uIU/mL (0.36-3.74) 03/30/20 04:45 Urine Color Yellow (Yellow) 04/03/20 10:15 Urine Clarity Clear (Clear) 04/03/20 10:15 Urine pH 8.0 (5-8) 04/03/20 10:15 Ur Specific [place] 1.015 (1.005-1.025) 04/03/20 10:15 Urine Protein Negative mg/dL (Negative) 04/03/20 10:15 Urine Ketones Negative mg/dL (Negative) 04/03/20 10:15 Urine Blood Moderate (Negative) H 04/03/20 10:15 Urine Nitrite Negative (Negative) 04/03/20 10:15 Urine Bilirubin Negative (Negative) 04/03/20 10:15 Urine Urobilinogen 0.2 EU/dL (Up TO 0.2) 04/03/20 10:15 Ur Leukocyte Esterase Trace (Negative) H 04/03/20 10:15 Urine RBC 3-5 HPF (0-2) H 04/03/20 10:15 Urine WBC 20-50 HPF (0-5) H 04/03/20 10:15 Ur Epithelial Cells Rare HPF (Negative) 04/03/20 10:15 Urine Crystals Negative HPF (Negative) 04/03/20 10:15 Urine Bacteria Few HPF (Negative) 04/03/20 10:15 Urine Casts Negative LPF (Negative) 04/03/20 10:15 Urine Mucus Trace (Negative) 04/03/20 10:15 Urine Other Few renal (Negative) 04/03/20 10:15 Ur Culture Indicated? C&s done as ordered 04/03/20 10:15 Urine Glucose Negative mg/dL (Negative) 04/03/20 10:15 Vancomycin Trough 19.1 ug/mL (10.0-20.0) 03/31/20 11:15 COVID-19 PCR Cancelled 04/02/20 16:00 COVID-19 PCR Negative (Negative) 04/02/20 16:00 Nasopharyn COVID-19 PCR Cancelled 04/02/20 16:00 Nasopharyn COVID-19 PCR Not Applicable 04/02/20 16:00 Hep Bs Antigen Negative (Negative) 03/30/20 04:45 Hep Bs Antibody Negative (See Note) 03/30/20 04:45 Hep Bs Antibody, Quant <3.1 mIU/mL (See Note) 03/30/20 04:45 Hep B Core Total Ab Negative (Negative) 03/30/20 04:45 Hepatitis C Antibody Reactive (Negative) A 03/30/20 04:45 HCV RNA Qual (PCR) Detected (Undetected) A 03/30/20 04:45 Hepatitis C RNA Quant [id number] IU/mL (Undetected) H 03/30/20 04:45 HIV 1&2 Ag/Ab, 4th Gen Negative (Negative) 03/31/20 06:13 Ref Test Perform Site Cancelled 04/02/20 16:00 [facility] 04/02/20 16:00
--- NOTE | 2020-04-04 15:54 | DI.VRAD_ITS ---
PROCEDURE INFORMATION: Exam: XR Abdomen, 2 Views Exam date and time: 04/04/2020 3:31 PM Age: 59 years old Clinical indication: Abdominal pain TECHNIQUE: Imaging protocol: XR of the abdomen. Views: 2 Views. COMPARISON: CR XR ABDOMEN FLAT PLATE 04/01/2020 1:42 PM FINDINGS: Gastrointestinal tract: A few loops of dilated bowel may represent obstruction or ileus. Intraperitoneal space: Normal. No free air. Bones/joints: Unremarkable for age. IMPRESSION: A few loops of dilated bowel may represent obstruction or ileus. Dictated and Authenticated by: Yannick Diaz MD. Ordering:[facility] Guero Greene MD
[2020-04-04] MEDS: Bisacodyl 10 MG SUPP PR (16:52)
[2020-04-04 17:00] VITALS: BP 91/60; PULSE 89; RESP 18; TEMP 36.1; O2SAT 95
[2020-04-04 17:15] VITALS: BP 104/78
[2020-04-04] MEDS: Magnesium Citrate 300 ML BTL 150 ML PO (18:56)
[2020-04-04] MEDS: Senna TAB 1 TAB PO (22:23)
[2020-04-04] MEDS: Melatonin 3 MG TAB PO (22:23)
[2020-04-04] MEDS: Mirtazapine 15 MG TAB PO (22:23)
[2020-04-04] MEDS: lamoTRIgine 100 MG TAB PO (22:23)
[2020-04-04 23:08] VITALS: BP 98/65; PULSE 79; RESP 18; TEMP 36.3; O2SAT 97
[2020-04-05] VITALS (7 sets, daily range): BP systolic 95–116; BP diastolic 66–76; PULSE 80–98; RESP 15–20; TEMP 36–36.9; O2SAT 93–98
--- NOTE | 2020-04-05 | DI.RAD_ITS ---
EXAM: 2D digital imaging was performed. CLINICAL HISTORY: abdominal pain. COMPARISON: CR,XR XR ABDOMEN FLAT PLATE from 04/04/2020 TECHNIQUE: Supine views of the abdomen performed. FINDINGS: There is a moderate amount of stool seen throughout the colon. Mildly dilated loops of bowel are see n in the central abdomen. This may represent an ileus or partial obstruction. The visualized lung b ases are clear. No pneumoperitoneum is present. DATA REPOSITORY: RADIATION DOSE DELIVERED:
--- NOTE | 2020-04-05 | RT.EKG_ITS ---
APPROVED REPORT Exam: Resting ECG Patient Location: I HR:90 bpm ECG Measurements Heart Rate 90 AXIS MN 128 P 56 QRSd 90 QRS 39 QT 354 T 31 QTc 434 <Conclusion> Sinus rhythm...normal P axis, V-rate 60- 99 Left atrial enlargement...P, P'>60mS, <-0.15mV V1 I have reviewed and interpreted ECG and agree with software generated interpretation. I have reviewed and I agree with the emergency room physician???s ECG interpretation.
[2020-04-05] MEDS: Levothyroxine 125 MCG TAB PO (06:36)
[2020-04-05] MEDS: Heparin 5,000 UNITS/ML VIAL 5000 UNITS SC ×3 (06:36→22:20)
[2020-04-05] MEDS: Normal Saline Flush 10 ML SYR IVP ×3 (06:39→20:58)
[2020-04-05] MEDS: Pantoprazole 40 MG VIAL IVP (08:25)
[2020-04-05] MEDS: Insulin Aspart 300 UNITS/3 ML PEN SC ×4 (08:26→22:18)
[2020-04-05] MEDS: Carbidopa 25/Levodopa 100 TAB PO ×4 (08:28→20:43)
[2020-04-05] MEDS: QUEtiapine 100 MG TAB PO ×3 (08:28→20:43)
[2020-04-05] MEDS: lamoTRIgine 25 MG TAB 50 MG PO (08:28)
[2020-04-05] MEDS: buPROPion-XL 150 MG TABCR 450 MG PO (08:28)
[2020-04-05] MEDS: Docusate Sodium 100 MG CAP PO ×2 (08:28→20:43)
[2020-04-05] MEDS: Potassium Chloride 10 MEQ CAPCR 20 MEQ PO (08:29)
[2020-04-05] MEDS: Magnesium Chloride 64 MG TABCR PO ×2 (08:29→20:43)
[2020-04-05] MEDS: predniSONE 10 MG TAB PO (08:29)
[2020-04-05] MEDS: Multivitamin TAB 1 TAB PO (08:29)
[2020-04-05] MEDS: traZODone 50 MG TAB 25 MG PO ×2 (08:30→20:43)
[2020-04-05] MEDS: Acetaminophen 325 MG TAB 650 MG PO (08:30)
[2020-04-05] MEDS: Aspirin 81 MG CHEW PO (08:31)
[2020-04-05] MEDS: cefTRIAXone 1 GM/50 ML BAG IVPB (08:31)
[2020-04-05] MEDS: Polyethylene Glycol 3350 17 GM PACKET PO ×2 (08:36→20:42)
[2020-04-05 13:56] LABS: HCT 36.5 % (36.0-46.0); HGB 11.5 g/dL (12.0-15.5); Mean Corp. HGB Concentration 31.5 g/dL (32.0-36.0); Mean Corpuscular Hemoglobin 31.5 pg (27.0-33.0); Mean Platelet Volume 8.8 fL (8.0-11.0); Platelet Count 346 x1000/uL (130-400); RBC 3.65 m/cumm (4.00-5.20); RBC Distribution Width 16.2 % (11.7-14.6); White Blood Cell Count 8.05 k/cumm (4.4-10.8)
--- NOTE | 2020-04-05 14:01 | CMPROGNOTE_ITS ---
- If Service Date Differs Date of service: 04/05/20 Time of Service: 14:01 Care Management Progress Note S/O: Ginger was sitting up eating a popsicle when CM met with her. She reported that she is still having chest pain and pain in her arm. She stated that she did tell the RN these concerns, and per report, her chest pain is chronic. CM stated that when she is ready for discharge, CM will coordinate with the [facility] for her to return. Per report, she is not ready today. CM will continue to follow. A: Ginger is a 59 year old female admitted to [facility] 03/26/20 for Acute Pancreatitis. P: Ginger will return to the [facility] when ready per MD, she will transport via ambulance at time of discharge; coordinated by CM. CM will continue to follow and support discharge planning considerations.
--- NOTE | 2020-04-05 14:08 | W.PM.PROGNOT ---
Date of Service Date of service: 04/05/20 Time of Service: 14:09 Assessment and Plan Assessment and plan (1) Constipation: Status: Acute Assessment and plan: I do not feel that she has an ileus however I will check a KUB. Her last KUB from 3 days ago suggested that she was just constipated with a large amount of stool in the rectum with remain portions of the colon showing normal caliber. I have ordered a soapsuds enema and another Dulcolax suppository to be given. Patient is not on any narcotic analgesics so I doubt that Relistor will have any impact. She may need multiple enemas to clear out her distal colon and rectum Qualifiers: Constipation type: unspecified constipation type Qualified Code(s): K59.00 - Constipation, unspecified (2) UTI (urinary tract infection): Status: Acute Assessment and plan: polymicrobial (E. coli >100,000 CFU and Proteus mirabilis <10,000 CFU 03/27/2020), treated with Ceftriaxone 1 gm iv daily since 03/28 (today is day #9), Repeat cultures 04/01 continued to show E. coli two different species but now <10,000 CFU and now repeat culture from 04/03 shows no growth. Patient has renal stones and prior 2 cm calculus to her right kidney for which she had nephrolithotomy and removal of 2 cm stone performed at [facility] in 2018 (see Dr. Alvarez's consult note). Her current stones are not that big but Dr. Alvarez is concerned that the residual stones although not causing obstruction may be a source of infection given that she had Proteus on her original urine culture. At present she seems to have cleared her UTI, however Dr. Alvarez would like her to follow up for cystoureteroscopy and holmium lithotripsy of her residual stones. Per his note from 04/03 he feels that this can be performed as an outpatient. Qualifiers: Urinary tract infection type: site unspecified (3) Acute pancreatitis: Status: Resolved Assessment and plan: This was complicated by an ileus and subsequent constipation. Her pancreatitis has resolved. It still not clear as to the cause of her pancreatitis. Dr. Osorio feels it was due to her Depakote however the patient also has cholelithiasis however MRCP did not show any biliary dilatation or choledocholithiasis. I still suspect that this was secondary to her cholelithiasis and she probably had already passed the gallstone when she presented to the hospital. Nevertheless the patient remains off of Depakote and has had no further recurrence of her pancreatitis. If she has recurrent pancreatitis and I think further evaluation with an ERCP would be warranted. Qualifiers: Pancreatitis type: drug induced Acute pancreatitis complication: no infection or necrosis Qualified Code(s): K85.30 - Drug induced acute pancreatitis without necrosis or infection (4) Bipolar 1 disorder: Status: Chronic Assessment and plan: Continue increased dose of lamictal - evening dose increased to 100 mg, am dose to stay @ 50 mg. In two weeks, am dose should also be increased to 100 mg. (5) Ambulatory dysfunction: Status: Chronic Assessment and plan: PT consulted (6) Chronic chest pain: Status: Chronic Assessment and plan: Continue tylenol/heat. she had another episode of CP this a.m. for which repeat ekg showed no acute ischemic changes. Will treat for musculoskeletal discomfort. 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 There is concerned that she may have ongoing MECHANIC SENIOR vasculitis. Once she is recovered from her UTI she can resume her CellCept. She was treated with stress dose corticosteroids during this admission for what was felt to be an acute adrenal insufficiency in the setting of impending sepsis. She is now back on prednisone although if she goes n.p.o. she will need to be put back on IV corticosteroids. She will need to resume follow-up with rheumatology and neurology upon discharge. Dr. Stanford would like her to have a transthoracic echocardiogram as well as a repeat MRI of the brain as an outpatient. See Dr. Stanford's notes. (8) DVT prophylaxis: Status: Acute Assessment and plan: heparin SC (9) Discharge planning issues: Status: Acute Assessment and plan: DNR/DNI - code status changed with palliative care. Will be able to be d/c'ed back to SNF on Sunday. Repeat COVID-19 test from April 02, 2020 was negative. The skilled nursing would like two negative COVID 19 test therefore one was ordered stat this morning Subjective Subjective Interval history since last seen: Patient still feels bloated although she has had no vomiting and she continues to feed. Nursing reports that she has had multiple bowel movements last night and again this morning. However her KUB continues to show dilated loops of colon and small bowel as well as large amount of stool in the sigmoid colon. Think the patient needs to be disimpacted. I discussed the case with Dr. Diane Morales who recommends continued enemas using a fleets enema as well as aggressive laxative use including increasing her MiraLAX use or adding lactulose. If this does not work then we will pursue a Gastrografin enema. Dr. Morales did not feel that a therapeutic flexible sigmoid exam would be able to disimpact her. Exam Narrative Exam Narrative: Morbidly obese female lying in her chair eating her lunch. Abdomen is markedly distended with normal active bowel sounds. Abdomen is soft. Minimal tenderness with deep palpation in the lower abdomen. No guarding or rebound tenderness. Objective Objective Clinical Data: Abnormal lab results 04/05/20 Range/Units 13:42 RBC 3.65 L (4.00-5.20) m/cumm Hgb 11.5 L (12.0-15.5) g/dL MCV 100.0 H (80-95) fL MCHC 31.5 L (32.0-36.0) g/dL RDW 16.2 H (11.7-14.6) % Vital Signs Temperature 36.0 C L 04/05/20 09:07 Temperature Source Tympanic 04/05/20 09:07 Pulse 98 H 04/05/20 09:07 Pulse Rhythm Regular 04/05/20 08:20 Respiratory Rate 18 04/05/20 09:07 Respiratory Effort 04/05/20 08:20 Respiratory Depth Normal 04/05/20 08:20 Respiratory Pattern Normal 04/05/20 08:20 Blood Pressure 108/73 04/05/20 09:07 Blood Pressure Position Sitting 03/26/20 12:09 Pulse Oximetry 98 04/05/20 09:07 Oxygen Delivery Method Nasal Cannula 04/05/20 09:07 Oxygen Flow Rate 1 04/05/20 09:07 Pain Level 8 04/05/20 09:07 Comment 04/05/20 09:07 Intake & Output 04/04/20 04/05/20 04/05/20 23:59 11:59 23:59 Intake Total 660 / 1680 620 / 860 240 / 860 Balance 660 / 1680 620 / 860 240 / 860 Weight 76.9 kg Intake: IV 50 / 50 70 / 70 Oral 610 / 1630 550 / 790 240 / 790 Other: Urine Color Yellow Urine Odor Strong Stool Size Copious Stool Characteristics Liquid Voiding Methods Diaper Diaper Incontinent Incontinent Laboratory Results WBC 8.05 k/cumm (4.4-10.8) 04/05/20 13:42 RBC 3.65 m/cumm (4.00-5.20) L 04/05/20 13:42 Hgb 11.5 g/dL (12.0-15.5) L 04/05/20 13:42 Hct 36.5 % (36.0-46.0) 04/05/20 13:42 MCV 100.0 fL (80-95) H 04/05/20 13:42 MCH 31.5 pg (27.0-33.0) 04/05/20 13:42 MCHC 31.5 g/dL (32.0-36.0) L 04/05/20 13:42 RDW 16.2 % (11.7-14.6) H 04/05/20 13:42 Plt Count 346 x1000/uL (130-400) 04/05/20 13:42 MPV 8.8 fL (8.0-11.0) 04/05/20 13:42 Immature Gran % 1.9 % 04/03/20 07:31 Neutrophils % 36.0 04/03/20 07:31 Band Neutrophils % Cancelled 03/28/20 07:12 Lymphocytes % 49.0 04/03/20 07:31 Atypical Lymphs % Cancelled 03/28/20 07:12 Monocytes % 11.3 04/03/20 07:31 Eosinophils % 1.5 04/03/20 07:31 Basophils % 0.3 04/03/20 07:31 Metamyelocytes % Cancelled 03/28/20 07:12 Myelocytes % Cancelled 03/28/20 07:12 Promyelocytes % Cancelled 03/28/20 07:12 Absolute Neutrophils 2.88 k/cumm (1.2-6.7) 04/03/20 07:31 Absolute Lymphocytes 3.91 k/cumm (1.2-3.4) H 04/03/20 07:31 Absolute Monocytes 0.90 k/cumm (0.11-0.7) H 04/03/20 07:31 Absolute Eosinophils 0.12 k/cumm (0.0-0.7) 04/03/20 07:31 Absolute Basophils 0.02 k/cumm (0.0-0.2) 04/03/20 07:31 Nucleated RBCs Cancelled 03/28/20 07:12 Differential Comment Cancelled 03/28/20 07:12 Other Cell Type Cancelled 03/28/20 07:12 RBC Morphology Cancelled 03/28/20 07:12 Polychromasia Cancelled 03/28/20 07:12 Hypochromasia Cancelled 03/28/20 07:12 Poikilocytosis Cancelled 03/28/20 07:12 Basophilic Stippling Cancelled 03/28/20 07:12 Anisocytosis Cancelled 03/28/20 07:12 Microcytosis Cancelled 03/28/20 07:12 Macrocytosis Cancelled 03/28/20 07:12 Spherocytes Cancelled 03/28/20 07:12 Target Cells Cancelled 03/28/20 07:12 Tear Drop Cells Cancelled 03/28/20 07:12 Ovalocytes Cancelled 03/28/20 07:12 Stomatocytes Cancelled 03/28/20 07:12 [place] Bodies Cancelled 03/28/20 07:12 [place] Cells Cancelled 03/28/20 07:12 Acanthocytes (Spur) Cancelled 03/28/20 07:12 Schistocytes Cancelled 03/28/20 07:12 ESR 49 mm/hr (0-30) H 03/31/20 06:13 Sodium 144 mmol/L (136-145) 04/03/20 07:31 Potassium 5.0 mmol/L (3.5-5.1) D 04/03/20 14:55 Chloride 107 mmol/L (98-107) 04/03/20 07:31 Carbon Dioxide 29.8 mmol/L (21.0-32.0) 04/03/20 07:31 Anion Gap 7.2 mmol/L (3-11) 04/03/20 07:31 BUN 6 mg/dL (7-18) L 04/03/20 07:31 Creatinine 0.65 mg/dL (0.55-1.02) 04/03/20 07:31 Estimated GFR/1.73 m2 >= 60.00 (mL/min/1.73m2) 04/03/20 07:31 Glucose 147 mg/dL (74-106) H 04/03/20 07:31 Lactate 1.8 mmol/L (0.6-1.4) H 03/29/20 08:00 Calcium 9.1 mg/dL (8.5-10.1) 04/03/20 07:31 Magnesium 1.8 mg/dL (1.8-2.4) 04/03/20 07:31 Total Bilirubin 0.3 mg/dL (0.2-1.0) 04/02/20 06:30 Conjugated Bilirubin 0.09 mg/dL (0.00-0.20) 04/02/20 06:30 AST 50 U/L (15-37) H 04/02/20 06:30 ALT 10 U/L (14-59) L 04/02/20 06:30 Alkaline Phosphatase 60 U/L (46-116) 04/02/20 06:30 C-Reactive Protein 2.04 mg/dL (0.0-0.3) H 04/02/20 06:30 Total Protein 7.2 g/dL (6.4-8.2) 04/02/20 06:30 Albumin 2.9 g/dL (3.4-5.0) L 04/02/20 06:30 Triglycerides 133 mg/dL (<150) 03/27/20 09:53 Total Cholesterol 150 mg/dL (<200) 03/27/20 09:53 LDL Cholesterol, Calc 72 mg/dL (<100) 03/27/20 09:53 HDL Cholesterol 52 mg/dL (40-60) 03/27/20 09:53 Lipase 385 U/L (73-393) 04/02/20 06:30 TSH 1.40 uIU/mL (0.36-3.74) 03/30/20 04:45 Urine Color Yellow (Yellow) 04/03/20 10:15 Urine Clarity Clear (Clear) 04/03/20 10:15 Urine pH 8.0 (5-8) 04/03/20 10:15 Ur Specific [place] 1.015 (1.005-1.025) 04/03/20 10:15 Urine Protein Negative mg/dL (Negative) 04/03/20 10:15 Urine Ketones Negative mg/dL (Negative) 04/03/20 10:15 Urine Blood Moderate (Negative) H 04/03/20 10:15 Urine Nitrite Negative (Negative) 04/03/20 10:15 Urine Bilirubin Negative (Negative) 04/03/20 10:15 Urine Urobilinogen 0.2 EU/dL (Up TO 0.2) 04/03/20 10:15 Ur Leukocyte Esterase Trace (Negative) H 04/03/20 10:15 Urine RBC 3-5 HPF (0-2) H 04/03/20 10:15 Urine WBC 20-50 HPF (0-5) H 04/03/20 10:15 Ur Epithelial Cells Rare HPF (Negative) 04/03/20 10:15 Urine Crystals Negative HPF (Negative) 04/03/20 10:15 Urine Bacteria Few HPF (Negative) 04/03/20 10:15 Urine Casts Negative LPF (Negative) 04/03/20 10:15 Urine Mucus Trace (Negative) 04/03/20 10:15 Urine Other Few renal (Negative) 04/03/20 10:15 Ur Culture Indicated? C&s done as ordered 04/03/20 10:15 Urine Glucose Negative mg/dL (Negative) 04/03/20 10:15 Vancomycin Trough 19.1 ug/mL (10.0-20.0) 03/31/20 11:15 COVID-19 PCR Cancelled 04/02/20 16:00 COVID-19 PCR Negative (Negative) 04/02/20 16:00 Nasopharyn COVID-19 PCR Cancelled 04/02/20 16:00 Nasopharyn COVID-19 PCR Not Applicable 04/02/20 16:00 Hep Bs Antigen Negative (Negative) 03/30/20 04:45 Hep Bs Antibody Negative (See Note) 03/30/20 04:45 Hep Bs Antibody, Quant <3.1 mIU/mL (See Note) 03/30/20 04:45 Hep B Core Total Ab Negative (Negative) 03/30/20 04:45 Hepatitis C Antibody Reactive (Negative) A 03/30/20 04:45 HCV RNA Qual (PCR) Detected (Undetected) A 03/30/20 04:45 Hepatitis C RNA Quant [id number] IU/mL (Undetected) H 03/30/20 04:45 HIV 1&2 Ag/Ab, 4th Gen Negative (Negative) 03/31/20 06:13 Ref Test Perform Site Cancelled 04/02/20 16:00 [facility] 04/02/20 16:00
[2020-04-05] MEDS: Magnesium Citrate 300 ML BTL PO (14:35)
[2020-04-05] MEDS: Lactulose 20 GM/30 ML CUP PO ×2 (17:11→20:42)
[2020-04-05 21:24] LABS: Glucose 286 mg/dL (74-106)
[2020-04-05] MEDS: Senna TAB 1 TAB PO (22:18)
[2020-04-05] MEDS: Melatonin 3 MG TAB PO (22:18)
[2020-04-05] MEDS: Mirtazapine 15 MG TAB PO (22:18)
[2020-04-05] MEDS: lamoTRIgine 100 MG TAB PO (22:18)
--- NOTE | 2020-04-06 | DI.RAD_ITS ---
EXAM: XR ABDOMEN FLAT PLATE CLINICAL HISTORY: constipation, abdominal distension TECHNIQUE: COMPARISON: CR XR ABDOMEN FLAT PLATE from 04/05/2020 FINDINGS: Two views were obtained. In comparison with yesterday's examination, note is again made of non-speci fic mild colonic and small bowel dilatation. There is decreased prominence of gastric contents since yesterday's examination. Findings are consistent with ileus. IMPRESSION: Findings consistent with ileus and constipation, no gross evidence of obstruction.
[2020-04-06] MEDS: Levothyroxine 125 MCG TAB PO (05:36)
[2020-04-06] MEDS: Heparin 5,000 UNITS/ML VIAL 5000 UNITS SC ×3 (05:36→21:09)
[2020-04-06 07:00] VITALS: O2SAT 97
[2020-04-06 07:44] VITALS: BP 93/65; PULSE 81; RESP 15; TEMP 36; O2SAT 97
[2020-04-06] MEDS: lamoTRIgine 25 MG TAB 50 MG PO (08:36)
[2020-04-06] MEDS: QUEtiapine 100 MG TAB PO ×3 (08:36→19:43)
[2020-04-06] MEDS: Magnesium Chloride 64 MG TABCR PO ×2 (08:36→19:43)
[2020-04-06] MEDS: buPROPion-XL 150 MG TABCR 450 MG PO (08:36)
[2020-04-06] MEDS: Multivitamin TAB 1 TAB PO (08:37)
[2020-04-06] MEDS: Carbidopa 25/Levodopa 100 TAB PO ×4 (08:37→19:44)
[2020-04-06] MEDS: Potassium Chloride 10 MEQ CAPCR 20 MEQ PO (08:37)
[2020-04-06] MEDS: traZODone 50 MG TAB 25 MG PO ×2 (08:37→19:43)
[2020-04-06] MEDS: Acetaminophen 325 MG TAB 650 MG PO ×2 (08:37→14:10)
[2020-04-06] MEDS: Normal Saline Flush 10 ML SYR IVP ×2 (08:38→10:46)
[2020-04-06] MEDS: predniSONE 10 MG TAB PO (08:38)
[2020-04-06] MEDS: Aspirin 81 MG CHEW PO (08:38)
[2020-04-06] MEDS: Insulin Aspart 300 UNITS/3 ML PEN SC ×4 (08:39→21:14)
[2020-04-06] MEDS: cefTRIAXone 1 GM/50 ML BAG IVPB (08:41)
[2020-04-06] MEDS: Normal Saline 500 ML 30 ML IV (08:43)
[2020-04-06] MEDS: Pantoprazole 40 MG VIAL IVP (08:51)
--- NOTE | 2020-04-06 09:48 | CMPROGNOTE_ITS ---
Care Management Progress Note S/O: Ginger remains inpatient at this time, MD reports likely discharge tomorrow with continued stability. CM contacted Raffaele Pi[facility] and requested tentative transport for tomorrow, 04/07/20, and notified the [facility] as well. CM will continue to follow. A: Ginger is a 59 year old female admitted to [facility] 03/26/20 for Acute Pancr eatitis. P: Ginger will return to the [facility] when ready per MD, she will transport via ambulance at time of discharge; coordinated by NITESH; anticipate tomorrow, 04/07/20. CM will continue to follow and support discharge planning considerations.
[2020-04-06] MEDS: Ondansetron 4 MG/2 ML VIAL IVP (10:46)
--- NOTE | 2020-04-06 14:18 | CHAPLAIN ---
Ginger was enjoying some peanut butter crackers when I visited. She said she is having pain in her left arm and I suggested she let her nurse know. According to Care Management notes, Ginger will likely return to the [facility] tomorrow.
[2020-04-06] MEDS: Lactulose 20 GM/30 ML CUP PO ×2 (15:56→19:41)
[2020-04-06 15:59] VITALS: BP 93/60; PULSE 84; RESP 18; TEMP 36.4; O2SAT 94
--- NOTE | 2020-04-06 16:15 | PGE_ITS ---
Date of Service Date of service: 04/06/20 Time of Service: 16:15 Assessment and Plan Assessment and plan (1) Constipation: Status: Acute Assessment and plan: I do not feel that she has an ileus however I will check a KUB. Her last KUB from 3 days ago suggested that she was just constipated with a large amount of stool in the rectum with remain portions of the colon showing normal caliber. I have ordered a soapsuds enema and another Dulcolax suppository to be given. Patient is not on any narcotic analgesics so I doubt that Relistor will have any impact. She may need multiple enemas to clear out her distal colon and rectum Qualifiers: Constipation type: unspecified constipation type Qualified Code(s): K59.00 - Constipation, unspecified (2) Discharge planning issues: Status: Acute Assessment and plan: DNR/DNI - code status changed with palliative care. Patient's discharge will continue to be held up until she is adequately disimpacted and her obstruction in her rectosigmoid vault is relieved. Subjective Subjective Interval history since last seen: After multiple enemas and laxatives patient's been having liquid diarrhea. Nevertheless she still complains of bloating after meals. Nevertheless she still desires to eat and has not lost her appetite. Repeated KUBs demonstrate diffuse bowel gas pattern and is being read as ileus and/or constipation. Repeat digital rectal exam demonstrates a large stool ball in the upper rectal vault. Exam Narrative Exam Narrative: Abdomen is distended but soft with normal active bowel sounds with mild generalized tenderness. No guarding or rebound tenderness. Digital rectal exam reveals diminished sphincter tone with a large stool ball high in the rectum palpable only with the tip of my finger. Stool was light brown and negative for occult blood Objective Objective Clinical Data: Abnormal lab results 04/05/20 Range/Units 21:00 Glucose 286 H D (74-106) mg/dL Vital Signs Temperature 36.4 C L 04/06/20 15:59 Temperature Source Tympanic 04/06/20 15:59 Pulse 84 04/06/20 15:59 Pulse Rhythm Regular 04/06/20 07:20 Respiratory Rate 18 04/06/20 15:59 Respiratory Effort Non-Labored 04/06/20 07:20 Respiratory Depth Normal 04/06/20 07:20 Respiratory Pattern Normal 04/06/20 07:20 Blood Pressure 93/60 L 04/06/20 15:59 Blood Pressure Position Sitting 03/26/20 12:09 Pulse Oximetry 94 L 04/06/20 15:59 Oxygen Delivery Method Nasal Cannula 04/06/20 15:59 Oxygen Flow Rate 1 04/06/20 15:59 Pain Level 0 04/06/20 15:59 Comment 04/05/20 09:07 Intake & Output 04/05/20 04/06/20 04/06/20 23:59 11:59 23:59 Intake Total 860 / 1530 663 / 663 Balance 860 / 1530 663 / 663 Weight 76.8 kg Intake: IV 20 / 140 113 / 113 Oral 840 / 1390 550 / 550 Other: Urine Color Yellow Yellow Urine Appearance Clear Urine Odor Normal Normal Comment Pt urinated into a diaper. Stool Size Small Small Stool Characteristics Soft Soft Voiding Methods Incontinent Diaper Diaper Incontinent Laboratory Results WBC 8.05 k/cumm (4.4-10.8) 04/05/20 13:42 RBC 3.65 m/cumm (4.00-5.20) L 04/05/20 13:42 Hgb 11.5 g/dL (12.0-15.5) L 04/05/20 13:42 Hct 36.5 % (36.0-46.0) 04/05/20 13:42 MCV 100.0 fL (80-95) H 04/05/20 13:42 MCH 31.5 pg (27.0-33.0) 04/05/20 13:42 MCHC 31.5 g/dL (32.0-36.0) L 04/05/20 13:42 RDW 16.2 % (11.7-14.6) H 04/05/20 13:42 Plt Count 346 x1000/uL (130-400) 04/05/20 13:42 MPV 8.8 fL (8.0-11.0) 04/05/20 13:42 Immature Gran % 1.9 % 04/03/20 07:31 Neutrophils % 36.0 04/03/20 07:31 Band Neutrophils % Cancelled 03/28/20 07:12 Lymphocytes % 49.0 04/03/20 07:31 Atypical Lymphs % Cancelled 03/28/20 07:12 Monocytes % 11.3 04/03/20 07:31 Eosinophils % 1.5 04/03/20 07:31 Basophils % 0.3 04/03/20 07:31 Metamyelocytes % Cancelled 03/28/20 07:12 Myelocytes % Cancelled 03/28/20 07:12 Promyelocytes % Cancelled 03/28/20 07:12 Absolute Neutrophils 2.88 k/cumm (1.2-6.7) 04/03/20 07:31 Absolute Lymphocytes 3.91 k/cumm (1.2-3.4) H 04/03/20 07:31 Absolute Monocytes 0.90 k/cumm (0.11-0.7) H 04/03/20 07:31 Absolute Eosinophils 0.12 k/cumm (0.0-0.7) 04/03/20 07:31 Absolute Basophils 0.02 k/cumm (0.0-0.2) 04/03/20 07:31 Nucleated RBCs Cancelled 03/28/20 07:12 Differential Comment Cancelled 03/28/20 07:12 Other Cell Type Cancelled 03/28/20 07:12 RBC Morphology Cancelled 03/28/20 07:12 Polychromasia Cancelled 03/28/20 07:12 Hypochromasia Cancelled 03/28/20 07:12 Poikilocytosis Cancelled 03/28/20 07:12 Basophilic Stippling Cancelled 03/28/20 07:12 Anisocytosis Cancelled 03/28/20 07:12 Microcytosis Cancelled 03/28/20 07:12 Macrocytosis Cancelled 03/28/20 07:12 Spherocytes Cancelled 03/28/20 07:12 Target Cells Cancelled 03/28/20 07:12 Tear Drop Cells Cancelled 03/28/20 07:12 Ovalocytes Cancelled 03/28/20 07:12 Stomatocytes Cancelled 03/28/20 07:12 [place] Bodies Cancelled 03/28/20 07:12 [place] Cells Cancelled 03/28/20 07:12 Acanthocytes (Spur) Cancelled 03/28/20 07:12 Schistocytes Cancelled 03/28/20 07:12 ESR 49 mm/hr (0-30) H 03/31/20 06:13 Sodium 144 mmol/L (136-145) 04/03/20 07:31 Potassium 5.0 mmol/L (3.5-5.1) D 04/03/20 14:55 Chloride 107 mmol/L (98-107) 04/03/20 07:31 Carbon Dioxide 29.8 mmol/L (21.0-32.0) 04/03/20 07:31 Anion Gap 7.2 mmol/L (3-11) 04/03/20 07:31 BUN 6 mg/dL (7-18) L 04/03/20 07:31 Creatinine 0.65 mg/dL (0.55-1.02) 04/03/20 07:31 Estimated GFR/1.73 m2 >= 60.00 (mL/min/1.73m2) 04/03/20 07:31 Glucose 286 mg/dL (74-106) H D 04/05/20 21:00 Lactate 1.8 mmol/L (0.6-1.4) H 03/29/20 08:00 Calcium 9.1 mg/dL (8.5-10.1) 04/03/20 07:31 Magnesium 1.8 mg/dL (1.8-2.4) 04/03/20 07:31 Total Bilirubin 0.3 mg/dL (0.2-1.0) 04/02/20 06:30 Conjugated Bilirubin 0.09 mg/dL (0.00-0.20) 04/02/20 06:30 AST 50 U/L (15-37) H 04/02/20 06:30 ALT 10 U/L (14-59) L 04/02/20 06:30 Alkaline Phosphatase 60 U/L (46-116) 04/02/20 06:30 C-Reactive Protein 2.04 mg/dL (0.0-0.3) H 04/02/20 06:30 Total Protein 7.2 g/dL (6.4-8.2) 04/02/20 06:30 Albumin 2.9 g/dL (3.4-5.0) L 04/02/20 06:30 Triglycerides 133 mg/dL (<150) 03/27/20 09:53 Total Cholesterol 150 mg/dL (<200) 03/27/20 09:53 LDL Cholesterol, Calc 72 mg/dL (<100) 03/27/20 09:53 HDL Cholesterol 52 mg/dL (40-60) 03/27/20 09:53 Lipase 385 U/L (73-393) 04/02/20 06:30 TSH 1.40 uIU/mL (0.36-3.74) 03/30/20 04:45 Urine Color Yellow (Yellow) 04/03/20 10:15 Urine Clarity Clear (Clear) 04/03/20 10:15 Urine pH 8.0 (5-8) 04/03/20 10:15 Ur Specific [place] 1.015 (1.005-1.025) 04/03/20 10:15 Urine Protein Negative mg/dL (Negative) 04/03/20 10:15 Urine Ketones Negative mg/dL (Negative) 04/03/20 10:15 Urine Blood Moderate (Negative) H 04/03/20 10:15 Urine Nitrite Negative (Negative) 04/03/20 10:15 Urine Bilirubin Negative (Negative) 04/03/20 10:15 Urine Urobilinogen 0.2 EU/dL (Up TO 0.2) 04/03/20 10:15 Ur Leukocyte Esterase Trace (Negative) H 04/03/20 10:15 Urine RBC 3-5 HPF (0-2) H 04/03/20 10:15 Urine WBC 20-50 HPF (0-5) H 04/03/20 10:15 Ur Epithelial Cells Rare HPF (Negative) 04/03/20 10:15 Urine Crystals Negative HPF (Negative) 04/03/20 10:15 Urine Bacteria Few HPF (Negative) 04/03/20 10:15 Urine Casts Negative LPF (Negative) 04/03/20 10:15 Urine Mucus Trace (Negative) 04/03/20 10:15 Urine Other Few renal (Negative) 04/03/20 10:15 Ur Culture Indicated? C&s done as ordered 04/03/20 10:15 Urine Glucose Negative mg/dL (Negative) 04/03/20 10:15 Vancomycin Trough 19.1 ug/mL (10.0-20.0) 03/31/20 11:15 COVID-19 PCR Cancelled 04/02/20 16:00 COVID-19 PCR Negative (Negative) 04/02/20 16:00 Nasopharyn COVID-19 PCR Cancelled 04/02/20 16:00 Nasopharyn COVID-19 PCR Not Applicable 04/02/20 16:00 Hep Bs Antigen Negative (Negative) 03/30/20 04:45 Hep Bs Antibody Negative (See Note) 03/30/20 04:45 Hep Bs Antibody, Quant <3.1 mIU/mL (See Note) 03/30/20 04:45 Hep B Core Total Ab Negative (Negative) 03/30/20 04:45 Hepatitis C Antibody Reactive (Negative) A 03/30/20 04:45 HCV RNA Qual (PCR) Detected (Undetected) A 03/30/20 04:45 Hepatitis C RNA Quant [id number] IU/mL (Undetected) H 03/30/20 04:45 HIV 1&2 Ag/Ab, 4th Gen Negative (Negative) 03/31/20 06:13 Ref Test Perform Site Cancelled 04/02/20 16:00 Ref Test Perform Site [facility] 04/02/20 16:00
[2020-04-06] MEDS: Bisacodyl 10 MG SUPP PR (16:31)
[2020-04-06] MEDS: Magnesium Citrate 300 ML BTL PO (16:32)
[2020-04-06] MEDS: Polyethylene Glycol 3350 17 GM PACKET PO (19:41)
[2020-04-06] MEDS: Docusate Sodium 100 MG CAP PO (19:44)
[2020-04-06 20:20] VITALS: O2SAT 95
[2020-04-06] MEDS: Melatonin 3 MG TAB PO (21:08)
[2020-04-06] MEDS: lamoTRIgine 100 MG TAB PO (21:08)
[2020-04-06] MEDS: Senna TAB 1 TAB PO (21:09)
[2020-04-06] MEDS: Mirtazapine 15 MG TAB PO (21:09)
[2020-04-06 22:59] VITALS: BP 93/66; PULSE 89; RESP 17; TEMP 36.6; O2SAT 93
[2020-04-07] MEDS: Heparin 5,000 UNITS/ML VIAL 5000 UNITS SC ×3 (05:58→21:09)
[2020-04-07] MEDS: Levothyroxine 125 MCG TAB PO (05:58)
[2020-04-07] MEDS: Normal Saline Flush 10 ML SYR IVP ×2 (06:43→07:53)
[2020-04-07] MEDS: Acetaminophen 325 MG TAB 650 MG PO (06:43)
[2020-04-07] MEDS: Ondansetron 4 MG/2 ML VIAL IVP (06:44)
[2020-04-07 07:02] VITALS: BP 93/66; PULSE 83; RESP 13; TEMP 36.5; O2SAT 94
[2020-04-07] MEDS: Pantoprazole 40 MG VIAL IVP (07:53)
[2020-04-07 07:55] LABS: HCT 35.1 % (36.0-46.0); HGB 10.9 g/dL (12.0-15.5); Mean Corp. HGB Concentration 31.1 g/dL (32.0-36.0); Mean Corpuscular Hemoglobin 31.5 pg (27.0-33.0); Mean Corpuscular Volume 101.4 fL (80-95); Mean Platelet Volume 9.3 fL (8.0-11.0); Platelet Count 293 x1000/uL (130-400); RBC 3.46 m/cumm (4.00-5.20); RBC Distribution Width 16.5 % (11.7-14.6); White Blood Cell Count 10.07 k/cumm (4.4-10.8)
[2020-04-07] MEDS: Polyethylene Glycol 3350 17 GM PACKET PO ×2 (07:55→21:09)
[2020-04-07] MEDS: Lactulose 20 GM/30 ML CUP PO ×4 (07:56→21:08)
[2020-04-07] MEDS: Potassium Chloride 10 MEQ CAPCR 20 MEQ PO (07:56)
[2020-04-07] MEDS: Magnesium Chloride 64 MG TABCR PO ×2 (07:57→21:08)
[2020-04-07] MEDS: buPROPion-XL 150 MG TABCR 450 MG PO (07:57)
[2020-04-07] MEDS: lamoTRIgine 25 MG TAB 50 MG PO (07:58)
[2020-04-07] MEDS: Docusate Sodium 100 MG CAP PO ×2 (07:58→21:08)
[2020-04-07] MEDS: predniSONE 10 MG TAB PO (07:59)
[2020-04-07] MEDS: traZODone 50 MG TAB 25 MG PO ×2 (07:59→21:08)
[2020-04-07] MEDS: Aspirin 81 MG CHEW PO (08:00)
[2020-04-07] MEDS: Carbidopa 25/Levodopa 100 TAB PO ×4 (08:00→21:09)
[2020-04-07] MEDS: Multivitamin TAB 1 TAB PO (08:00)
[2020-04-07] MEDS: Insulin Aspart 300 UNITS/3 ML PEN SC ×4 (08:13→21:09)
[2020-04-07 08:15] VITALS: BP 94/66
[2020-04-07] MEDS: QUEtiapine 100 MG TAB PO ×3 (08:39→21:09)
--- NOTE | 2020-04-07 09:35 | SCONE_ITS ---
Date of service: 04/07/20 Time of Service: 09:35 Assessment and Plan Assessment and plan (1) Fecal impaction in rectum: Status: Acute Assessment and plan: She is not obstructed so fortunately there is no urgent surgical issue. Hopefully she can now evacuate the remainder of the stool ball. I would advise gentle enemas as needed such as mineral oil or soapsuds. The oral laxatives can be reduced. Please contact the double end production grinder surgeon if further assistance needed. History of Present Illness Narrative: Patient notes abdominal bloating after eating and some nausea. No vomiting. Has been eating fairly normally. She is recovering from pancreatitis and is also being treated for constipation. She is fairly immobile. CT showed a large amount of stool in the rectosigmoid region. She has been treated with lactulose, mag citrate, miralax and Fleets/soapsuds enemas. She is having numerous loose stools/day and had three today so far. Abdominal films for the past few days show some decreasing stool burden and possible ileus. [facility] Medical History [place] (acute kidney injury) (Inactive) Anxiety (Chronic) Bipolar 1 disorder (Acute) Cholelithiasis with acute cholecystitis (Acute) s/p cholecystostomy and stone extraction in 2014 ([facility]), tube now pulled. 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 insufficiency (Acute) TRAIN DRIVER vasculitis (Chronic) Complicated UTI (urinary tract infection) (Inactive) Diverticulosis (Acute) Hemiparesis affecting right side as late effect of cerebrovascular accident (CVA) (Acute) Hepatitis C (Chronic) History of multiple cerebrovascular accidents (CVAs) (Acute) Hypertension (Chronic) Hypothyroidism (Chronic) IDDM (insulin dependent diabetes mellitus) (Chronic) Lumbar disc disease (Acute) Nephrolithiasis (Chronic) Neurogenic bladder (Acute) Obesity (BMI 30.0-34.9) (Acute) Right kidney stone (Acute) Septic shock (Inactive) Static encephalopathy (Acute) Steroid dependent (Acute) Uterine mass (Acute) likely a fibroid UTI (urinary tract infection) (Inactive) Surgical History Abnormal cholangiogram (Acute) H/O cervical spine surgery (Acute) H/O foot surgery (Acute) H/O wrist surgery (Acute) History of extraction of renal calculus (Acute) 12/13/2018 - [facility] History of hip surgery (Acute) right History of lumbosacral spine surgery (Acute) S/P cystoscopy with ureteral stent placement (Acute) UV 11/2018 Status post creation of urethral sling by suprapubic approach (Acute) Family History Mother Stroke Social History Smoking/Tobacco Use Status: Former Tobacco Use Alcohol Intake: former Substance use type: former substance user and IV drugs [facility] Number of Children: 5 Education Level: elementary school Details: 6th grade, special ed, left school age 16. What is your relationship status?: Panel score (0-1 are the most socially isolated patients): 0 Do you feel safe at home: Yes Do you feel safe in your relationship?: Yes Exam Narrative Exam Narrative: No acute distress Abdomen distended but soft. Mild epigastric tenderness. No hernias noted. ROSITA reveals stool in the undergarments. A firm ball of stool is felt in the upp er rectal vault and fractured. About half can be evacuated. Results Last Vital Signs Temp 97.7 F 04/07/20 07:02 Pulse 83 04/07/20 07:02 Resp 13 04/07/20 07:02 BP 94/66 L 04/07/20 08:15 Pulse Ox 94 L 04/07/20 07:02 Labs Result diagrams: 04/07/20 07:24 04/05/20 21:00 Labs: Laboratory Results - last 24 hr 04/07/20 07:24 WBC 10.07 RBC 3.46 L Hgb 10.9 L Hct 35.1 L MCV 101.4 H MCH 31.5 MCHC 31.1 L RDW 16.5 H Plt Count 293 MPV 9.3
[2020-04-07] MEDS: Mineral Oil-Enema 133 ML BTL PR (10:58)
[2020-04-07 11:29] VITALS: O2SAT 94
--- NOTE | 2020-04-07 12:38 | PGE_ITS ---
Date of Service Date of service: 04/07/20 Time of Service: 12:38 Assessment and Plan Assessment and plan (1) Constipation: Status: Acute Assessment and plan: We will observe her today as long as she is eating and not having nausea or vomiting she will be transferred back to the senior living in the morning. She is currently on senna at bedtime along with MiraLAX twice a day and docusate twice a day. I will put her on a schedule of a rectal suppository daily and she will receive an enema every third day if she has no bowel movement. Qualifiers: Constipation type: unspecified constipation type Qualified Code(s): K59.00 - Constipation, unspecified (2) Discharge planning issues: Status: Acute Assessment and plan: DNR/DNI - code status changed with palliative care. Discharge to the senior living in the morning.. Subjective Subjective Interval history since last seen: Patient was digitally disimpacted by Dr. Morales this morning. Patient subsequently had an oil retention enema and had copious amounts of stool afterwards. Despite this the patient complains of feeling bloated after eating lunch. She has no vomiting and no nausea. I explained the patient I think the problem is she has an atonic colon and will just need to be on a scheduled bowel regimen with daily use of stool softeners and laxatives and every 2 to 3 days have to have a digital rectal exam for disimpaction and enemas. Exam Narrative Exam Narrative: Obese female lying in bed eating lunch. Abdomen is obese distended and firm with normal active bowel sounds. Objective Objective Clinical Data: Abnormal lab results 04/07/20 Range/Units 07:24 RBC 3.46 L (4.00-5.20) m/cumm Hgb 10.9 L (12.0-15.5) g/dL Hct 35.1 L (36.0-46.0) % MCV 101.4 H (80-95) fL MCHC 31.1 L (32.0-36.0) g/dL RDW 16.5 H (11.7-14.6) % Vital Signs Temperature 36.5 C 04/07/20 07:02 Temperature Source Tympanic 04/07/20 07:02 Pulse 83 04/07/20 07:02 Pulse Rhythm Regular 04/07/20 09:30 Respiratory Rate 13 04/07/20 07:02 Respiratory Effort Non-Labored 04/07/20 09:30 Respiratory Depth Normal 04/07/20 09:30 Respiratory Pattern Normal 04/07/20 09:30 Blood Pressure 94/66 L 04/07/20 08:15 Blood Pressure Position Sitting 03/26/20 12:09 Pulse Oximetry 94 L 04/07/20 11:29 Oxygen Delivery Method Room Air 04/07/20 11:29 Oxygen Flow Rate 0 04/07/20 11:29 Pain Level 6 04/07/20 07:02 Comment 04/05/20 09:07 Intake & Output 04/06/20 04/07/20 04/07/20 23:59 11:59 23:59 Intake Total 140 / 803 480 / 480 Balance 140 / 803 480 / 480 Weight 76.5 kg Intake: IV Oral 120 / 670 480 / 480 Other: Urine Color Yellow Yellow Urine Appearance Clear Clear Comment per RN Elvira Stool Size Large Moderate Stool Characteristics Soft Liquid Brown Voiding Methods Diaper Incontinent Incontinent Laboratory Results WBC 10.07 k/cumm (4.4-10.8) 04/07/20 07:24 RBC 3.46 m/cumm (4.00-5.20) L 04/07/20 07:24 Hgb 10.9 g/dL (12.0-15.5) L 04/07/20 07:24 Hct 35.1 % (36.0-46.0) L 04/07/20 07:24 MCV 101.4 fL (80-95) H 04/07/20 07:24 MCH 31.5 pg (27.0-33.0) 04/07/20 07:24 MCHC 31.1 g/dL (32.0-36.0) L 04/07/20 07:24 RDW 16.5 % (11.7-14.6) H 04/07/20 07:24 Plt Count 293 x1000/uL (130-400) 04/07/20 07:24 MPV 9.3 fL (8.0-11.0) 04/07/20 07:24 Immature Gran % 1.9 % 04/03/20 07:31 Neutrophils % 36.0 04/03/20 07:31 Band Neutrophils % Cancelled 03/28/20 07:12 Lymphocytes % 49.0 04/03/20 07:31 Atypical Lymphs % Cancelled 03/28/20 07:12 Monocytes % 11.3 04/03/20 07:31 Eosinophils % 1.5 04/03/20 07:31 Basophils % 0.3 04/03/20 07:31 Metamyelocytes % Cancelled 03/28/20 07:12 Myelocytes % Cancelled 03/28/20 07:12 Promyelocytes % Cancelled 03/28/20 07:12 Absolute Neutrophils 2.88 k/cumm (1.2-6.7) 04/03/20 07:31 Absolute Lymphocytes 3.91 k/cumm (1.2-3.4) H 04/03/20 07:31 Absolute Monocytes 0.90 k/cumm (0.11-0.7) H 04/03/20 07:31 Absolute Eosinophils 0.12 k/cumm (0.0-0.7) 04/03/20 07:31 Absolute Basophils 0.02 k/cumm (0.0-0.2) 04/03/20 07:31 Nucleated RBCs Cancelled 03/28/20 07:12 Differential Comment Cancelled 03/28/20 07:12 Other Cell Type Cancelled 03/28/20 07:12 RBC Morphology Cancelled 03/28/20 07:12 Polychromasia Cancelled 03/28/20 07:12 Hypochromasia Cancelled 03/28/20 07:12 Poikilocytosis Cancelled 03/28/20 07:12 Basophilic Stippling Cancelled 03/28/20 07:12 Anisocytosis Cancelled 03/28/20 07:12 Microcytosis Cancelled 03/28/20 07:12 Macrocytosis Cancelled 03/28/20 07:12 Spherocytes Cancelled 03/28/20 07:12 Target Cells Cancelled 03/28/20 07:12 Tear Drop Cells Cancelled 03/28/20 07:12 Ovalocytes Cancelled 03/28/20 07:12 Stomatocytes Cancelled 03/28/20 07:12 [place] Bodies Cancelled 03/28/20 07:12 [place] Cells Cancelled 03/28/20 07:12 Acanthocytes (Spur) Cancelled 03/28/20 07:12 Schistocytes Cancelled 03/28/20 07:12 ESR 49 mm/hr (0-30) H 03/31/20 06:13 Sodium 144 mmol/L (136-145) 04/03/20 07:31 Potassium 5.0 mmol/L (3.5-5.1) D 04/03/20 14:55 Chloride 107 mmol/L (98-107) 04/03/20 07:31 Carbon Dioxide 29.8 mmol/L (21.0-32.0) 04/03/20 07:31 Anion Gap 7.2 mmol/L (3-11) 04/03/20 07:31 BUN 6 mg/dL (7-18) L 04/03/20 07:31 Creatinine 0.65 mg/dL (0.55-1.02) 04/03/20 07:31 Estimated GFR/1.73 m2 >= 60.00 (mL/min/1.73m2) 04/03/20 07:31 Glucose 286 mg/dL (74-106) H D 04/05/20 21:00 Lactate 1.8 mmol/L (0.6-1.4) H 03/29/20 08:00 Calcium 9.1 mg/dL (8.5-10.1) 04/03/20 07:31 Magnesium 1.8 mg/dL (1.8-2.4) 04/03/20 07:31 Total Bilirubin 0.3 mg/dL (0.2-1.0) 04/02/20 06:30 Conjugated Bilirubin 0.09 mg/dL (0.00-0.20) 04/02/20 06:30 AST 50 U/L (15-37) H 04/02/20 06:30 ALT 10 U/L (14-59) L 04/02/20 06:30 Alkaline Phosphatase 60 U/L (46-116) 04/02/20 06:30 C-Reactive Protein 2.04 mg/dL (0.0-0.3) H 04/02/20 06:30 Total Protein 7.2 g/dL (6.4-8.2) 04/02/20 06:30 Albumin 2.9 g/dL (3.4-5.0) L 04/02/20 06:30 Triglycerides 133 mg/dL (<150) 03/27/20 09:53 Total Cholesterol 150 mg/dL (<200) 03/27/20 09:53 LDL Cholesterol, Calc 72 mg/dL (<100) 03/27/20 09:53 HDL Cholesterol 52 mg/dL (40-60) 03/27/20 09:53 Lipase 385 U/L (73-393) 04/02/20 06:30 TSH 1.40 uIU/mL (0.36-3.74) 03/30/20 04:45 Urine Color Yellow (Yellow) 04/03/20 10:15 Urine Clarity Clear (Clear) 04/03/20 10:15 Urine pH 8.0 (5-8) 04/03/20 10:15 Ur Specific [place] 1.015 (1.005-1.025) 04/03/20 10:15 Urine Protein Negative mg/dL (Negative) 04/03/20 10:15 Urine Ketones Negative mg/dL (Negative) 04/03/20 10:15 Urine Blood Moderate (Negative) H 04/03/20 10:15 Urine Nitrite Negative (Negative) 04/03/20 10:15 Urine Bilirubin Negative (Negative) 04/03/20 10:15 Urine Urobilinogen 0.2 EU/dL (Up TO 0.2) 04/03/20 10:15 Ur Leukocyte Esterase Trace (Negative) H 04/03/20 10:15 Urine RBC 3-5 HPF (0-2) H 04/03/20 10:15 Urine WBC 20-50 HPF (0-5) H 04/03/20 10:15 Ur Epithelial Cells Rare HPF (Negative) 04/03/20 10:15 Urine Crystals Negative HPF (Negative) 04/03/20 10:15 Urine Bacteria Few HPF (Negative) 04/03/20 10:15 Urine Casts Negative LPF (Negative) 04/03/20 10:15 Urine Mucus Trace (Negative) 04/03/20 10:15 Urine Other Few renal (Negative) 04/03/20 10:15 Ur Culture Indicated? C&s done as ordered 04/03/20 10:15 Urine Glucose Negative mg/dL (Negative) 04/03/20 10:15 Vancomycin Trough 19.1 ug/mL (10.0-20.0) 03/31/20 11:15 COVID-19 PCR Cancelled 04/02/20 16:00 COVID-19 PCR Negative (Negative) 04/02/20 16:00 Nasopharyn COVID-19 PCR Cancelled 04/02/20 16:00 Nasopharyn COVID-19 PCR Not Applicable 04/02/20 16:00 Hep Bs Antigen Negative (Negative) 03/30/20 04:45 Hep Bs Antibody Negative (See Note) 03/30/20 04:45 Hep Bs Antibody, Quant <3.1 mIU/mL (See Note) 03/30/20 04:45 Hep B Core Total Ab Negative (Negative) 03/30/20 04:45 Hepatitis C Antibody Reactive (Negative) A 03/30/20 04:45 HCV RNA Qual (PCR) Detected (Undetected) A 03/30/20 04:45 Hepatitis C RNA Quant [id number] IU/mL (Undetected) H 03/30/20 04:45 HIV 1&2 Ag/Ab, 4th Gen Negative (Negative) 03/31/20 06:13 Ref Test Perform Site Cancelled 04/02/20 16:00 Ref Test Perform Site [facility] 04/02/20 16:00
[2020-04-07 15:47] VITALS: BP 95/63; PULSE 83; RESP 16; TEMP 36.3; O2SAT 96
--- NOTE | 2020-04-07 16:29 | CMPROGNOTE_ITS ---
- If Service Date Differs Date of service: 04/07/20 Time of Service: 16:29 Care Management Progress Note S/O: Ginger was lying in bed when CM met with her. She reported that she was still not feeling well, and having belly pain and nausea after eating. She stated that she doesn't feel ready for discharge today. CM will continue to follow. A: Ginger is a 59 year old female admitted to [facility] 03/26/20 for Acute Pancreatitis. P: Ginger will return to the [facility] when ready per MD, she will transport via ambulance at time of discharge; coordinated by CM; anticipate tomorrow, 04/07/20. CM will continue to follow and support discharge planning considerations.
[2020-04-07] MEDS: Senna TAB 1 TAB PO (21:07)
[2020-04-07] MEDS: lamoTRIgine 100 MG TAB PO (21:07)
[2020-04-07] MEDS: Melatonin 3 MG TAB PO (21:08)
[2020-04-07] MEDS: Mirtazapine 15 MG TAB PO (21:08)
[2020-04-07 23:48] VITALS: BP 99/65; PULSE 86; RESP 16; TEMP 36.6; O2SAT 97
[2020-04-08] MEDS: Levothyroxine 125 MCG TAB PO (05:24)
[2020-04-08] MEDS: Heparin 5,000 UNITS/ML VIAL 5000 UNITS SC (05:24)
[2020-04-08] MEDS: Normal Saline Flush 10 ML SYR IVP ×2 (06:11→07:26)
[2020-04-08 07:12] VITALS: BP 97/68; PULSE 79; RESP 17; TEMP 36.8; O2SAT 99
[2020-04-08] MEDS: Pantoprazole 40 MG VIAL IVP (07:25)
[2020-04-08] MEDS: Ondansetron 4 MG/2 ML VIAL IVP (07:25)
[2020-04-08] MEDS: Insulin Aspart 300 UNITS/3 ML PEN SC (08:32)
[2020-04-08] MEDS: Magnesium Chloride 64 MG TABCR PO (08:34)
[2020-04-08] MEDS: QUEtiapine 100 MG TAB PO (08:34)
[2020-04-08] MEDS: Potassium Chloride 10 MEQ CAPCR 20 MEQ PO (08:34)
[2020-04-08] MEDS: lamoTRIgine 25 MG TAB 50 MG PO (08:34)
[2020-04-08] MEDS: Lactulose 20 GM/30 ML CUP PO (08:34)
[2020-04-08] MEDS: Polyethylene Glycol 3350 17 GM PACKET PO (08:34)
[2020-04-08] MEDS: buPROPion-XL 150 MG TABCR 450 MG PO (08:34)
[2020-04-08] MEDS: Carbidopa 25/Levodopa 100 TAB PO (08:35)
[2020-04-08] MEDS: Acetaminophen 325 MG TAB 650 MG PO (08:35)
[2020-04-08] MEDS: predniSONE 10 MG TAB PO (08:35)
[2020-04-08] MEDS: traZODone 50 MG TAB 25 MG PO (08:35)
[2020-04-08] MEDS: Aspirin 81 MG CHEW PO (08:36)
[2020-04-08] MEDS: Multivitamin TAB 1 TAB PO (08:36)
[2020-04-08] MEDS: Bisacodyl 10 MG SUPP PR (08:36)
[2020-04-08] MEDS: Docusate Sodium 100 MG CAP PO (08:36)
[2020-04-08] MEDS: Bacitracin 1 PACKET (10:59)
--- NOTE | 2020-04-08 11:01 | DSE_ITS ---
Date of service: 04/08/20 Time of Service: 11:01 DS: Diagnosis Discharge Diagnosis (1) Constipation: Status: Acute (2) Discharge planning issues: Status: Acute Discharge Plan Disposition Patient Disposition: SNF (LEVEL 1) [facility] Condition: Improving Discharge Details Chief Complaint: Abd Prob Clinical Impression: Acute pancreatitis Reason For Visit: ACUTE PANCREATITIS Admit Date/Time: 03/26/20 16:21 Admit Provider: Scott Lea Attending Provider: Scott Lea Primary Care Provider: Agueda Bingham ED Provider: Pastor Patel Hospital Course Hospital Course: Ms. 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 She also has a history of bipolar disorder for which she has been on Depakote chronically as well as Seroquel and Lamictal. 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 She was brought in from the [facility] because of comp laints of nausea vomiting and abdominal pain. Initial evaluation in the emergency room took place on March 26, 2020 where she was found to have elevated lipase of [address] scan of her abdomen pelvis that showed signs of pancreatitis with peripancreatic stranding and fluid as well as a large amount of stool in her distal sigmoid colon and rectum measuring 9.2 cm consistent with severe constipation. She was also found to have a fatty liver. CT evaluation of her gallbladder and biliary system showed no gallbladder wall thickening or biliary dilatation or calcified stones. She was admitted to the hospital by Dr. Lea and was made n.p.o. and given IV fluids, antiemetics, analgesics. Patient was subsequently managed by Dr. Osorio from March 27, 2020 through April 02, 2020. During that time patient was diagnosed with a UTI and found to have E. coli and Proteus in her urine. She had greater than 100,000 colonies of E. coli which was pansensitive. Proteus was less than 10,000 colonies. Because of her prior history of neurogenic bladder from her strokes and previous enterococcal infections she was placed on vancomycin in addition to ceftriaxone. Patient has a history of nephrolithiasis for which she has had to have nephrotomy and removal of a staghorn calculus this was performed in October 2019 [facility] in [facility]. CT findings on admission showed small nephrolithiasis but no obstruction. After admission the patient developed hypotension for which she was diagnosed with septic shock and acute adrenal insufficiency. Patient was treated with IV fluids and stress dose IV corticosteroids. Patient's hypotension resolved with antibiotics and IV fluids and IV steroids. Over the next few days her IV corticosteroids were tapered and she was placed on oral prednisone. As part of her work-up of her abdominal pain and cholelithiasis and pancreatitis she underwent MRCP on March 31, 2020 that showed no biliary ductal dilatation and no choledocholithiasis but showed some peripancreatic stranding and fluids consistent with pancreatitis. An ultrasound of the abdomen had been performed the day before March 30, 2020 that showed fatty liver and gallstones but no evidence of cholecystitis. Abdominal x-ray from same day showed a large amount of stool in the rectal vault diffuse small bowel dilatation. On April 01, 2020 the vancomycin was discontinued when it became apparent that she had Proteus and E. coli in her urine and no enterococcus. Dr. Danny Alvarez, urologist was consulted on March 29, 2020 because of the UTI and nephrolithiasis and because of her previous history of staghorn calculi. See Dr. Alvarez's note for details in summary he felt that because she was showing some Proteus in her urine that even know her stones were smaller and not causing acute obstructive uropathy at the present time these could be a source of infection. After he reviewed her records from [facility] he made the recommendation on April 02, 2020 that she should have a follow-up ureteroscopy and holmium laser lithotripsy to her residual right-sided kidney stones. He did not feel that it was of eminent concern but could be performed as an outpatient. He indicated that he would arrange outpatient follow-up. Patient continued on Rocephin from March 28, 2020 through April 06, 2020. Multiple urine cultures were followed up after her initial treatment. Repeat urine culture from April 01, 2020 continue to show E. coli but with a marked decrease in her colony count down to 10,000- 50,000 colonies per mL. And finally urine culture from April 03, 2020 showed no growth. Rocephin was discontinued on April 06, 2020 after the repeat urine culture had been negative for 48 hours. Blood cultures which were obtained on March 28, 2020 showed no growth. With respect to her pancreatitis Dr. Osorio evaluate her medications and consulted with Dr. Darline Garza regarding the patient's bipolar medications as well as had discussions with pharmacist. It was determined that Depakote was a likely potential cause for her pancreatitis given that the patient's MRCP showed no evidence for cholecystitis. Patient's Depakote was discontinued after consultation with Dr. Stacey Stanford, neurologist, who could find no documentation of seizure disorder. Dr. Stanford indicated that with stopping the Depakote that the patient's lamotrigine levels will decrease and therefore recommended titration of her lamotrigine. Dr. Darline Garza, psychiatrist, recommend increasing the patient's lamotrigine from 50 mg twice a day to her current dose of 50 mg in the morning and 100 mg at bedtime. With respect to the patient's other neurologic problems see Dr. Stanford's consultation note dated March 30, 2020. 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 She felt that discontinuation the Depakote may improve her tremor and/or her parkinsonism she recommended continuation of the Sinemet. With regard to her strokes she reviewed the patient's MRI brain imaging from 2017 as well as a current CT scans. She recommend continued aspirin 81 mg daily and recommended an outpatient MRI of the brain as well as the transthoracic echocardiogram as well as an extended cardiac event recorder for 30 days. 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 She recommend resumption of her CellCept once the patient was over her infection. With respect to the patient's psychiatric issues Dr. Darline Garza was consulted on March 31, 2020 see her note for details. She recommended discontinuation of the Depakote and to increase the lamotrigine from 50 mg twice a day to 50 mg in the morning 100 mg at night and then after 2 weeks to increase the lamotrigine to 100 mg twice a day. She felt this should provide sufficient mood stabilization and prevent depressive episode relapse. She also indicated that Seroquel can cause pancreatitis as well that if her pancreatitis did not resolve or became worse that this also may need to be discontinued but as long she was tolerating the Seroquel it was felt that it can be helpful in reducing psychotic episodes. Dr. Garza did not see the patient personally but made the recommendations based on her review of the patient's chart including Dr. Stanford's neurology consult note as well as based upon discussion with Dr. Osorio. Patient's pancreatitis was complicated by her obstipation. Patient required multiple laxatives and enemas and finally surgical consultation was obtained with Dr. Diane Morales who was able to disimpact the patient. After disimpaction the patient required further enemas to clean her out. Although the patient continues to complain of bloating after meals she was having no vomiting and no increase in abdominal discomfort after meals. The patient will be requiring a regular bowel regimen with daily Dulcolax suppositories as well as continued use of laxatives including MiraLAX and/or lactulose. Patient will need digital rectal exam and disimpaction twice weekly if she is unable to have adequate bowel movements. Follow-up with the following specialist as recommended: Dr. Diane Morales, general surgeon, to follow-up on the patient's cholelithiasis as well as obstipation Dr. Danny Alvarez, urologist, to arrange outpatient cystoscopy ureteroscopy and holmium lithotripsy. Dr. 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 Home Meds and New Rx's Prescriptions: New lamotrigine [Lamictal] 25 mg Tablet 50 mg PO DAILY Qty: 1 RF: 0 bupropion HCl 150 mg Tablet Extended Release 24 Hr 450 mg PO QAM Qty: 1 RF: 0 prednisone 10 mg Tablet 10 mg PO DAILY Qty: 1 RF: 0 Continued levothyroxine 125 mcg capsule 125 mcg PO DAILY Qty: 30 RF: 3 mycophenolate mofetil 200 mg/mL Suspension For Reconstitution 0.5 ml PO DAILY RF: 0 insulin aspart U-100 [Novolog Flexpen U-100 Insulin] 100 unit/mL Insulin Pen 0 units subcut AC & HS Qty: 0 RF: 0 bupropion HCl 150 MG tablet extended release 12 hr 150 mg PO DAILY RF: 0 trazodone 50 MG tablet 25 mg PO BID RF: 0 carbidopa-levodopa 1 EACH tablet 1 tab PO QID RF: 0 bupropion HCl 150 MG tablet extended release 24 hr 300 mg PO QAM RF: 0 lamotrigine 50 MG tablet extended release 24hr 50 mg PO BID RF: 0 Multivitamin/Iron/Folic Acid [Centrum Adults Tablet] 1 EACH Tablet 1 tab PO DAILY RF: 0 aspirin 81 MG tablet,chewable 81 mg PO DAILY RF: 0 acetaminophen [Tylenol] 325 mg Tablet 650 mg PO DAILY RF: 0 quetiapine 100 mg Tablet 100 mg PO TID RF: 0 prednisone 2.5 mg Tablet 2.5 mg PO DAILY RF: 0 diclofenac potassium 50 mg Tablet 50 mg PO BID PRNRF: 0 docusate sodium [Colace] 100 mg Capsule 100 mg PO .BID, PRN RF: 0 mirtazapine 15 mg Tablet 15 mg PO QHS RF: 0 Nu-Mag 71.5 mg Tablet,Delayed Release (Dr/Ec) 64 mg PO DAILY RF: 0 metformin 500 mg Tablet 500 mg PO BID RF: 0 calcium carbonate-vitamin D3 [Calcium 600 + D(3)] 600 mg(1,500mg) -400 unit Tablet 1 tab PO BID RF: 0 Discontinued valproic acid (as sodium salt) 250 mg/5 mL Solution 10 ml PO BID RF: 0 Discharge Instructions Instructions: Pancreatitis (DC), Gallstones (DC), Kidney Stones (DC), Lithotripsy (GEN) Additional Instructions: Get a follow-up CBC and BMP in 1 week Stand Alone Forms: Nursing Discharge Form Referrals: Danny Alvarez MD [ [facility] STAFF PHYSICIAN] - (The office will contact you with an appointment) Diane Zacarias MD [ [facility] STAFF PHYSICIAN] - 04/26/20 10:00 am Norbert Pak Chi [ [facility] STAFF PHYSICIAN] - 04/13/20 3:00 pm (Re-establish care for 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 VIDEO APPOINTMENT) Stacey Stanford MD [ [facility] STAFF PHYSICIAN] - (The office will call with an appointment) Activity:: Activity as Tolerated Equipment/Supplies:: No Equipment Needed Diet:: Carb Counting Discharge Orders Discharge Orders: Discharge Order (Routine); Ordered 04/08/20 Ordered By: Jc Jack Discharge Data Discharge Date/Time-TO BE ENTERED AT DEPARTURE: 04/08/20 11:14 DS: Summary Status at Discharge Functional status at discharge: bed bound Overall status at discharge: patient is progressing back to baseline Mental Status: mental status grossly normal Speech and Movement: speech and movement normal Mood: congruent mood Affect: normal affect Exam Psych Mental Status: mental status grossly normal Speech and Movement: speech and movement normal Mood: congruent mood Affect: normal affect DS: Data Vitals/I&O Vitals and I&O: Vital Signs Temperature 36.8 C 04/08/20 07:12 Temperature Source Temporal Artery Scan 04/08/20 07:12 Pulse 79 04/08/20 07:12 Pulse Rhythm Regular 04/08/20 08:30 Respiratory Rate 17 04/08/20 07:12 Respiratory Effort Non-Labored 04/08/20 08:30 Respiratory Depth Normal 04/08/20 08:30 Respiratory Pattern Normal 04/08/20 08:30 Blood Pressure 97/68 L 04/08/20 07:12 Blood Pressure Position Sitting 03/26/20 12:09 Pulse Oximetry 99 04/08/20 07:12 Oxygen Delivery Method Nasal Cannula 04/08/20 07:12 Oxygen Flow Rate 1 04/08/20 07:12 Pain Level 6 04/08/20 08:35 Comment 04/05/20 09:07 Intake & Output 04/07/20 04/07/20 04/08/20 11:59 23:59 11:59 Intake Total 480 / 600 120 / 600 370 / 370 Balance 480 / 600 120 / 600 370 / 370 Weight 76.5 kg 75.5 kg Intake: IV Oral 480 / 600 120 / 600 360 / 360 Other: Urine Color Yellow Yellow Yellow Urine Appearance Clear Clear Urine Odor Normal Foul Comment per RN Elvira Stool Size Moderate Moderate Smear Stool Characteristics Liquid Soft Soft Formed Brown Voiding Methods Incontinent Diaper Diaper Incontinent Incontinent [facility] Medical History [place] (acute kidney injury) (Inactive) Anxiety (Chronic) Bipolar 1 disorder (Acute) Cholelithiasis with acute cholecystitis (Acute) s/p cholecystostomy and stone extraction in 2014 ([facility]), tube now pulled. 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 (Chronic) Complicated UTI (urinary tract infection) (Inactive) Diverticulosis (Acute) Hemiparesis affecting right side as late effect of cerebrovascular accident (CVA) (Acute) Hepatitis C (Chronic) History of multiple cerebrovascular accidents (CVAs) (Acute) Hypertension (Chronic) Hypothyroidism (Chronic) IDDM (insulin dependent diabetes mellitus) (Chronic) Lumbar disc disease (Acute) Nephrolithiasis (Chronic) Neurogenic bladder (Acute) Obesity (BMI 30.0-34.9) (Acute) Right kidney stone (Acute) Septic shock (Inactive) Static encephalopathy (Acute) Steroid dependent (Acute) Uterine mass (Acute) likely a fibroid UTI (urinary tract infection) (Inactive) Surgical History Abnormal cholangiogram (Acute) H/O cervical spine surgery (Acute) H/O foot surgery (Acute) H/O wrist surgery (Acute) History of extraction of renal calculus (Acute) 12/13/2018 - [facility] History of hip surgery (Acute) right History of lumbosacral spine surgery (Acute) S/P cystoscopy with ureteral stent placement (Acute) [facility] 11/2018 Status post creation of urethral sling by suprapubic approach (Acute) Family History Mother Stroke Social History Smoking/Tobacco Use Status: Former Tobacco Use Alcohol Intake: former Substance use type: former substance user and IV drugs Housing: group home Number of Children: 5 Education Level: elementary school Details: 6th grade, special ed, left school age 16. What is your relationship status?: Panel score (0-1 are the most socially isolated patients): 0 Do you feel safe at home: Yes Do you feel safe in your relationship?: Yes
--- NOTE | 2020-04-08 16:27 | PDOC.CMDIS ---
- If Service Date Differs Date of service: 04/08/20 Time of Service: 16:27 LACE Index Scoring Tool - Questions: Length of Stay (in days): 7 - 13 Acuity (Admit via E.D.?): Yes Comorbidities: Cerebrovascular Disease E.D. Visits: 1 - Answers: Total Score: 10 Risk of Readmission: High Risk Care Management Discharge Reason for Hospitalization: Acute Pancreatitis Discharge Plan: Ginger will return to the [facility], where she resides. She will have to quarantine for 14 days in a separate room once she arrives, although her Covid test was negative. She will be transported by [facility]. She will follow up with her discharge plan of care. Patient/Family Education Needs: Review discharge instructions regarding activity levels and medications, discussion of self care needs including ask me three and goals of care. Services Needed at Discharge: Correction Facility ([facility]), Transportation ([facility])
== END 2020-04-08 11:14 | disposition skilled nursing facility (03) | DRG 439 ==
LOC: ER 17:17 → MS 17:38
PROVIDERS: General Practice; Internal Medicine; Admitting Provider Family Medicine; Emergency Provider Emergency Medicine; PCP Family Medicine; Visit Provider Internal Medicine
DX: K85.00 Idiopathic acute pancreatitis without necrosis or infection (principal); N39.0 Urinary tract infection, site not specified; Z16.23 Resistance to quinolones and fluoroquinolones; K56.7 Ileus, unspecified; N20.0 Calculus of kidney; G20 Parkinson's disease; G24.01 Drug induced subacute dyskinesia; T42.6X5A Adverse effect of other antiepileptic and sedative-hypnotic drugs, initial encounter; R14.0 Abdominal distension (gaseous); K59.00 Constipation, unspecified; R10.12 Left upper quadrant pain; I95.9 Hypotension, unspecified; F31.9 Bipolar disorder, unspecified; R26.2 Difficulty in walking, not elsewhere classified; E11.9 Type 2 diabetes mellitus without complications; R07.89 Other chest pain; Z51.5 Encounter for palliative care; R32 Unspecified urinary incontinence; Z71.3 Dietary counseling and surveillance; I77.6 Arteritis, unspecified; K80.50 Calculus of bile duct without cholangitis or cholecystitis without obstruction; B96.4 Proteus (mirabilis) (morganii) as the cause of diseases classified elsewhere; Z86.73 Personal history of transient ischemic attack (TIA), and cerebral infarction without residual deficits; B18.2 Chronic viral hepatitis C; Z03.818 Encounter for observation for suspected exposure to other biological agents ruled out; R05 Cough; Z66 Do not resuscitate
CPT/HCPCS: 36410; 36415; 70496; 70498; 80048; 80053; 80061; 80076; 82947; 83690; 85027; 85652; 86704; 86706; 86803; 87040; 87077; 87081; 87340; 87389; 87522; 96361; 96374; 97161; 97165; 99222; 99223; 99232; 99233; 99239; 99252; 99253; 99254; 99285; NC; U0003; 74018; 74019; 74177; 74181; 76700; 80202; 81003; 81015; 83605; 83735; 84132; 84443; 85025; 86140; 87086; 87186; 87324; 93005; 93010; 99284; J0696; J1644; J1720; J2405; J3370; J3475; J3480; J3490; J7512; Q9967

== ENCOUNTER 2020-04-09 21:57 | Outpatient (REF) | payer MEDICAID, SELFPAY ==
[2020-04-12 15:38] LABS: COVID-19 RT-PCR Result Not Detected ((See Note))
== END 2020-04-09 22:17 ==
LOC: NCHCN 21:57
PROVIDERS: Visit Provider Family Medicine
DX: Z11.59 Encounter for screening for other viral diseases (principal)
CPT/HCPCS: U0003

== ENCOUNTER 2020-04-13 20:09 | Outpatient (REF) | payer MEDICAID, SELFPAY ==
[2020-04-13 18:47] LABS: Abs Immature Grans 0.02 k/cumm (0.0-0.09); Absolute Basophil Count 0.02 k/cumm (0.0-0.2); Absolute Eosinophil Count 0.08 k/cumm (0.0-0.7); Absolute Monocyte Count 0.46 k/cumm (0.11-0.7); Absolute Neutrophil Count 3.67 k/cumm (1.2-6.7); Basophils % 0.3; Eosinophils % 1.4; HCT 37.4 % (36.0-46.0); HGB 11.4 g/dL (12.0-15.5); Immature Grans % 0.3 %; Lymphocytes % 26.1; Mean Corp. HGB Concentration 30.5 g/dL (32.0-36.0); Mean Corpuscular Hemoglobin 30.9 pg (27.0-33.0); Mean Corpuscular Volume 101.4 fL (80-95); Mean Platelet Volume 9.9 fL (8.0-11.0); Neutrophils % 63.9; Platelet Count 278 x1000/uL (130-400); RBC 3.69 m/cumm (4.00-5.20); RBC Distribution Width 15.9 % (11.7-14.6); White Blood Cell Count 5.75 k/cumm (4.4-10.8)
[2020-04-13 19:30] LABS: ESR 31 mm/hr (0-30)
[2020-04-13 19:36] LABS: Anion Gap 11.1 mmol/L (3-11); BUN 12 mg/dL (7-18); CO2 28.9 mmol/L (21.0-32.0); CREATININE 0.82 mg/dL (0.55-1.02); Calcium 9.8 mg/dL (8.5-10.1); Chloride 101 mmol/L (98-107); Glucose 218 mg/dL (74-106); Potassium 4.4 mmol/L (3.5-5.1); Sodium 141 mmol/L (136-145)
[2020-04-15 16:10] LABS: Lamotrigine 1.5 mcg/mL (2.5 - 15.0)
== END 2020-04-13 20:29 ==
LOC: LBN 20:09
PROVIDERS: Visit Provider Family Medicine
DX: M06.9 Rheumatoid arthritis, unspecified (principal); K59.00 Constipation, unspecified; K73.9 Chronic hepatitis, unspecified; R68.89 Other general symptoms and signs
CPT/HCPCS: 80048; 80175; 85652; U0003; 85025

== ENCOUNTER 2020-04-16 21:52 | Outpatient (REF) | payer MEDICAID, SELFPAY ==
[2020-04-19 18:28] LABS: COVID-19 RT-PCR Result Not Detected ((See Note))
== END 2020-04-16 22:12 ==
LOC: LBN 21:52
PROVIDERS: PCP Family Medicine; Visit Provider Family Medicine
DX: Z11.59 Encounter for screening for other viral diseases (principal)
CPT/HCPCS: U0003

== ENCOUNTER 2020-04-22 06:11 | Day surgery (SDC) | payer MEDICAID, SELFPAY ==
[2020-04-22 06:20] VITALS: BP 110/75; PULSE 87; RESP 16; TEMP 36.4; O2SAT 96
--- NOTE | 2020-04-22 07:46 | NUR.NOTE ---
Nursing Note: Pt arrived on DSU via stretcher from [facility]. Pt moved to DSU bed, and accepted from [facility]. Pt Vitals taken, intake for DSU finished. When Pt asked about chest pain as part of DSU assessment, Pt reported, I have a heaviness in my chest that goes down my left arm. Pt reports 7/10 pain. Pt reports it started about a week ago and is constant, nothing makes it worse or better. Charge nurse notified. This nurse finished with intake of DSU assessments. Anesthesia was notified by charge nurse. DSU assessment finished and Eusebia SRNA in to see Pt. It was decided to have Pt worked up for cardiac in the ED. ED was notified by charge nurse of transfer of Pt. Pt wheeled to ED by this nurse and the charge nurse Mira Minor RN at 0705a. ED staff and DSU nurses assisted Pt to ED stretcher from DSU stretcher. Pt report given verbally to XIOMARA Quiles and copies of hand off sheet as well as a copy of MAR from the [facility] with other paperwork that accompanied Pt to DSU from the [facility]. DSU notified of cancelled procedure from Jossy Restrepo CRNA at 0850. The [facility] was called and Laurent (Pt's nurse) was notified that Pt was getting care in the ED and the procedure is cancelled for today and Dr. Alvarez would be in touch with Pt's PCP to make plan.
--- NOTE | 2020-04-22 08:00 | NUR.NOTE ---
Nursing Note:This nurse called ED to make aware of cancelled procedure, and that the [facility] had been notified Pt is getting care in ED. Reported to Klarissa in the ED Pt was brought by Raffaele salazar to DSU and phone number to call when Pt ready for pickup is in family location portion of handoff sheet.
== END 2020-04-22 06:31 ==
PROVIDERS: PCP Family Medicine; Visit Provider Urology
DX: N20.0 Calculus of kidney (principal); Z53.09 Procedure and treatment not carried out because of other contraindication; R07.89 Other chest pain

== ENCOUNTER 2020-04-22 07:02 | Emergency (ER) | payer MEDICAID, SELFPAY ==
[2020-04-22] VITALS (27 sets, daily range): BP systolic 103–122; BP diastolic 67–79; PULSE 85–97; RESP 11–20; TEMP 36.6; O2SAT 93–97
--- NOTE | 2020-04-22 07:00 | RT.EKG_ITS ---
APPROVED REPORT Exam: Resting ECG Patient Location: E HR:85 bpm ECG Measurements Heart Rate 85 AXIS WY 148 P 70 QRSd 90 QRS 43 QT 384 T 30 QTc 458 <Conclusion> Sinus rhythm...normal P axis, V-rate 60- 99
--- NOTE | 2020-04-22 07:08 | W.ED.GENAD ---
Discharge Plan Disposition Patient Disposition: LEVEL III [facility] Condition: Improving Discharge Details Chief Complaint: Chest Pain Clinical Impression: Chest pain Primary Care Provider: Anusha Goetz ED Provider: Pastor Patel Home Meds and New Rx's Prescriptions: Continued levothyroxine 125 mcg capsule 125 mcg PO DAILY Qty: 30 RF: 3 mycophenolate mofetil 200 mg/mL Suspension For Reconstitution 0.5 ml PO DAILY RF: 0 insulin aspart U-100 [Novolog Flexpen U-100 Insulin] 100 unit/mL Insulin Pen 0 units subcut AC & HS Qty: 0 RF: 0 bupropion HCl 150 MG tablet extended release 12 hr 150 mg PO DAILY RF: 0 trazodone 50 MG tablet 25 mg PO BID RF: 0 carbidopa-levodopa 1 EACH tablet 1 tab PO QID RF: 0 bupropion HCl 150 MG tablet extended release 24 hr 300 mg PO QAM RF: 0 lamotrigine 50 MG tablet extended release 24hr 50 mg PO BID RF: 0 Multivitamin/Iron/Folic Acid [Centrum Adults Tablet] 1 EACH Tablet 1 tab PO DAILY RF: 0 aspirin 81 MG tablet,chewable 81 mg PO DAILY RF: 0 acetaminophen [Tylenol] 325 mg Tablet 650 mg PO DAILY RF: 0 quetiapine 100 mg Tablet 100 mg PO TID RF: 0 prednisone 2.5 mg Tablet 2.5 mg PO DAILY RF: 0 diclofenac potassium 50 mg Tablet 50 mg PO BID PRNRF: 0 docusate sodium [Colace] 100 mg Capsule 100 mg PO .BID, PRN RF: 0 mirtazapine 15 mg Tablet 15 mg PO QHS RF: 0 Nu-Mag 71.5 mg Tablet,Delayed Release (Dr/Ec) 64 mg PO DAILY RF: 0 metformin 500 mg Tablet 500 mg PO BID RF: 0 calcium carbonate-vitamin D3 [Calcium 600 + D(3)] 600 mg(1,500mg) -400 unit Tablet 1 tab PO BID RF: 0 lamotrigine [Lamictal] 25 mg Tablet 50 mg PO DAILY Qty: 1 RF: 0 bupropion HCl 150 mg Tablet Extended Release 24 Hr 450 mg PO QAM Qty: 1 RF: 0 prednisone 10 mg tablet 5 mg PO DAILY RF: 0 sennosides [Senokot] 8.6 mg Tablet 8.6 mg PO BID RF: 0 polyethylene glycol 3350 [Miralax] 17 gram/dose Powder 17 g PO DAILY RF: 0 ondansetron 4 mg Tablet,Disintegrating 4 mg PO Q6H PRNRF: 0 Discharge Instructions Additional Instructions: Your procedure was canceled today by Dr. Alvarez and he has plan to reschedule you. You were diverted to the ER where you underwent work-up including chest x-ray, general laboratories, cardiac troponin testing x2 that was negative. Please resume normal routine activities and follow-up with Dr. Alvarez as per his plan. 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 She was scheduled to have a cystoscopy today and while having intake done advised she has had constant chest pressure for a week so was referred to the ED for evaluation. She denies vomit, diaphoresis, abdominal pain. She states tylenol helps with the pain. Denies fevers or cough. She is speaking in full sentences in no distress and doesn't appear to be in significant pain. She has clear lungs, stable vitals. Her heart score is 3, will send troponin ekg unremarkable. She is wells score low, will obtain d dimer to evaluate for Pe. No tearing back pain so doubt dissection pt remains stable, signed out to oncoming provider pending labs and reassessment Medical Records Medical records reviewed: Yes I reviewed the patient's medical records. ECG Data Attestation: I personally reviewed and interpreted this ECG (s) as follows: Prior ECG tracings: available for review Interpretation: Sinus rhythm...normal P axis, no acute st t wave ischemic findings <Pastor Patel MD - Last Filed: 04/22/20 10:32> Received signout from Dr. Freeman here. Patient was pain and discomfort free throughout her stay under my care. She was observed, ate breakfast, had laboratories that were reassuring including troponin negative x2. Chest x-ray without acute findings. Her outpatient procedure was canceled and will be rescheduled. She is stable for discharge to home Lab Data Lab results reviewed: Yes I reviewed the patient's lab results. Labs: Laboratory Results - last 24 hr 04/22/20 04/22/20 04/22/20 07:15 07:15 07:15 PT 9.7 INR 1.0 APTT 22.5 Sodium 139 Potassium 3.6 Chloride 102 Carbon Dioxide 25.0 Anion Gap 12.0 H BUN 10 Creatinine 0.73 Estimated GFR/1.73 m2 >= 60.00 Glucose 181 H Calcium 9.6 Magnesium 1.6 L Total Bilirubin 0.6 Conjugated Bilirubin 0.20 AST 48 H ALT 51 Alkaline Phosphatase 127 H Troponin I < 0.05 NT-Pro-B Natriuret Pep 55 Total Protein 7.7 Albumin 3.4 Lipase 230 HPI <Chance Power MD - Last Filed: 04/22/20 07:26> General Date/Time Provider Initiated Documentation: 04/22/20 07:04. Limitations to Documentation: no limitations. Information obtained by: patient. History of Present Illness 59 year old F presents to the emergency department with the chief complaint of chest pain, described as moderate, Quality is described as other (pressure), and is localized to the chest. and it has been constant. Medication improves symptom(s), (tylenol) Related Data Home Medications Medication Instructions Recorded Confirmed Multivitamin/Iron/Folic Acid 1 tab PO DAILY 08/08/17 04/22/20 [Centrum Adults Tablet] bupropion HCl 150 mg PO DAILY 08/08/17 04/22/20 bupropion HCl 300 mg PO QAM 08/08/17 04/22/20 carbidopa-levodopa 1 tab PO QID 08/08/17 04/22/20 lamotrigine 50 mg PO BID 08/08/17 04/22/20 trazodone 25 mg PO BID 08/08/17 04/22/20 aspirin 81 mg PO DAILY chew 08/10/17 04/22/20 mycophenolate mofetil 0.5 ml PO DAILY 10/29/18 04/22/20 insulin aspart U-100 [Novolog 0 units SUBCUT AC & HS #0 ml 11/01/18 04/22/20 Flexpen U-100 Insulin] levothyroxine 125 mcg capsule 125 mcg PO DAILY #30 cap 01/07/19 04/22/20 Nu-Mag 64 mg PO DAILY 03/26/20 04/22/20 acetaminophen [Tylenol] 650 mg PO DAILY 03/26/20 04/22/20 diclofenac potassium 50 mg PO BID PRN 03/26/20 04/22/20 docusate sodium [Colace] 100 mg PO .BID, PRN 03/26/20 04/22/20 mirtazapine 15 mg PO QHS 03/26/20 04/22/20 prednisone 2.5 mg PO DAILY 03/26/20 04/22/20 quetiapine 100 mg PO TID 03/26/20 04/22/20 calcium carbonate-vitamin D3 1 tab PO BID 03/27/20 04/22/20 [Calcium 600 + D(3)] metformin 500 mg PO BID 03/27/20 04/22/20 bupropion HCl 450 mg PO QAM #1 tab 04/08/20 04/22/20 lamotrigine [Lamictal] 50 mg PO DAILY #1 tab 04/08/20 04/22/20 ondansetron 4 mg PO Q6H PRN 04/19/20 04/22/20 polyethylene glycol 3350 [Miralax] 17 g PO DAILY 04/19/20 04/22/20 prednisone 5 mg PO DAILY 04/19/20 04/22/20 sennosides [Senokot] 8.6 mg PO BID 04/19/20 04/22/20 Previous Rx's Medication Instructions Recorded aspirin 81 mg PO DAILY chew 08/10/17 insulin aspart U-100 [Novolog 0 units SUBCUT AC & HS #0 ml 11/01/18 Flexpen U-100 Insulin] levothyroxine 125 mcg capsule 125 mcg PO DAILY #30 cap 01/07/19 bupropion HCl 450 mg PO QAM #1 tab 04/08/20 lamotrigine [Lamictal] 50 mg PO DAILY #1 tab 04/08/20 Allergies Allergy/AdvReac Type Severity Reaction Status Date / Time naproxen [From Aleve] Allergy Unknown Unverified 04/22/20 07:15 Penicillins Allergy Unknown Unverified 04/22/20 07:15 propoxyphene Allergy Unknown Unverified 04/22/20 07:15 Sulfa (Sulfonamide Allergy Unknown Unverified 04/22/20 07:15 Antibiotics) General RUBENS: 3 Review of Systems <Chance Power MD - Last Filed: 04/22/20 07:26> All systems reviewed & are unremarkable except as noted in HPI and below Constitutional Constitutional: Denies chills, Denies fever(s) and Denies weakness Eyes Eyes: Denies loss of vision Cardiovascular Cardiovascular: Denies dyspnea Respiratory Respiratory: Denies cough and Denies dyspnea Gastrointestinal Gastrointestinal: Denies abdominal pain, Denies nausea and Denies vomiting Musculoskeletal Musculoskeletal: Denies joint swelling Neurologic Neurologic: Denies loss of vision and Denies weakness Psychiatric Psychiatric: Denies depression PFSH <Chance Power MD - Last Filed: 04/22/20 07:26> Social History Smoking/Tobacco Use Status: Former Tobacco Use Alcohol Intake: former 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 What is your relationship status?: Panel score (0-1 are the most socially isolated patients): 0 Do you feel safe at home: Yes Do you feel safe in your relationship?: Yes Exam <Chance Power MD - Last Filed: 04/22/20 07:26> Const General: no acute distress Orientation: alert HENMT Head: normal to inspection Ears: external ears normal General nose exam: external nose normal Mouth: moist mucous membranes Eyes General: appearance normal, both eyes and all related structures Neck Neck: normal visual inspection Resp Effort & Inspection: normal respiratory effort and able to speak in complete sentences Cardio Rate: regular rate GI Palpation: soft Skin General skin exam: no rashes or lesions noted Neuro General: patient alert and patient oriented x3 Extrem General: normal to inspection Psych Mental Status: mental status grossly normal Sign Out <Chance Power MD - Last Filed: 04/22/20 07:26> Sign Out Data: Sign Out Comment: was supposed to have cystoscopy today but advised she has had constant chest pressure for a week, pending labs and reassessment Last updated by Chance Power MD at 04/22/20 07:27
--- NOTE | 2020-04-22 07:30 | DI.RAD_ITS ---
EXAM: XR PORTABLE CHEST AP CLINICAL HISTORY: chest pain TECHNIQUE: 2D digital imaging was performed. COMPARISON: No exams were available for comparison FINDINGS: LUNGS: Clear. No pleural abnormality seen. HEART: Normal. MEDIASTINUM: Normal. OTHER FINDINGS: None. IMPRESSION: No acute pulmonary findings. DATA REPOSITORY: RADIATION DOSE DELIVERED:
[2020-04-22] MEDS: Acetaminophen 500 MG TAB 1000 MG PO (07:35)
[2020-04-22 07:44] LABS: PTT Activated 22.5 sec (21.0-31.4); Prothrombin Time 9.7 sec (9.3-11.0)
[2020-04-22] MEDS: Mylanta Suspension 30 ML CUP PO (07:44)
[2020-04-22 07:50] LABS: Lipase 230 U/L (73-393); Magnesium 1.6 mg/dL (1.8-2.4); NT-proBNP 55 pg/mL (<300)
--- NOTE | 2020-04-22 07:52 | DI.VRAD_ITS ---
PROCEDURE INFORMATION: Exam: XR Chest, 1 View Exam date and time: 04/22/2020 7:36 AM Age: 59 years old Clinical indication: Chest pain; Type not specified TECHNIQUE: Imaging protocol: XR of the chest Views: 1 view. COMPARISON: CR XR PORTABLE CHEST AP 11/01/2018 8:48 AM FINDINGS: Lungs: Unremarkable. No consolidation. Pleural space: Unremarkable. No pleural effusion. No pneumothorax. Heart/Mediastinum: Unremarkable. No cardiomegaly. Bones/joints: Unremarkable. IMPRESSION: No acute findings. Dictated and Authenticated by: Jimbo Mcdaniels MD. Ordering:DANNY Fletcher MD
[2020-04-22 07:54] LABS: ALT 51 U/L (14-59); AST 48 U/L (15-37); Albumin 3.4 g/dL (3.4-5.0); Alkaline Phosphatase 127 U/L (46-116); BUN 10 mg/dL (7-18); Bilirubin, Total 0.6 mg/dL (0.2-1.0); CREATININE 0.73 mg/dL (0.55-1.02); Calcium 9.6 mg/dL (8.5-10.1); Chloride 102 mmol/L (98-107); Glucose 181 mg/dL (74-106); Potassium 3.6 mmol/L (3.5-5.1); Sodium 139 mmol/L (136-145); Total Protein 7.7 g/dL (6.4-8.2)
[2020-04-22 07:55] LABS: Troponin I < 0.05 ng/mL (<0.06)
[2020-04-22 07:59] LABS: D-Dimer 500 ng/mlFEU (<500)
[2020-04-22 08:05] LABS: Abs Immature Grans 0.02 10^3/uL (0.0-0.06); Absolute Basophil Count 0.02 10^3/uL (0.0-0.2); Absolute Lymphocyte Count 2.53 10^3/uL (1.2-3.4); Absolute Monocyte Count 0.62 10^3/uL (0.1-0.8); Basophils % 0.3; Eosinophils % 3.2; HGB 12.4 g/dL (11.2-15.7); Immature Grans % 0.3; Lymphocytes % 40.2; MCH 31.5 pg (27.0-33.0); MCHC 31.8 % (32.0-36.0); MPV 9.5 fL (8.0-11.0); Monocytes % 9.9; Neutrophils % 46.1; Platelet Count 265 10^3/uL (130-400); RBC 3.94 10^6/uL (3.93-5.22); RDW 14.2 % (11.7-14.6); WBC 6.29 10^3/uL (4.4-10.8)
[2020-04-22 09:52] LABS: Troponin I < 0.05 ng/mL (<0.06)
== END 2020-04-22 10:32 | disposition designated cancer center or children's hospital (05) ==
PROVIDERS: Emergency Medicine; Emergency Provider Emergency Medicine; PCP Family Medicine
DX: R07.89 Other chest pain (principal); G20 Parkinson's disease
CPT/HCPCS: 36415; 80053; 83690; 93005; 99285; 71045; 82248; 83735; 83880; 84484; 85025; 85379; 85610; 85730; 93010; 99284

== ENCOUNTER 2020-04-27 00:24 | Outpatient (CLI) | payer MEDICAID, SELFPAY ==
--- NOTE | 2020-04-27 06:30 | DI.MRI_ITS ---
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 TECHNIQUE: Multiplanar multisequence MRI was performed. COMPARISON: No exams were available for comparison FINDINGS: MR examination the brain was performed according to usual protocol. Patient was unable to cooperate there is significant motion artifact on multiple pulse sequences. There is moderate generalized cerebral atrophy. There appears to be an old focal infarction of the p ons centrally and on the left with the area of abnormal signal measuring roughly 8-9 millimeters in g reatest diameter. There are probable bilateral small medullary infarcts as well. Probable small old inferior right cerebellar hemisphere infarct. Probable old right periventricular fronto temporal in farct noted as well. There are diffuse periventricular white matter signal changes. Diffusion-weigh leni imaging shows no evidence of acute or subacute infarction. Susceptibility weighted images show no evidence of intracranial hemorrhage. The orbital and temporal bone structures are grossly unremarkable. Pituitary is grossly unremarkable. No gross abnormality of [id number] flow-void. IMPRESSION: Findings consistent with multiple old areas of infarction, most notably in the alexandr centrally and on the left. No evidence of acute or subacute infarction. DATA REPOSITORY:
== END 2020-04-27 00:44 ==
PROVIDERS: PCP Family Medicine; Visit Provider Psychiatry & Neurology Neurology
DX: I67.7 Cerebral arteritis, not elsewhere classified (principal); Z86.73 Personal history of transient ischemic attack (TIA), and cerebral infarction without residual deficits; G31.9 Degenerative disease of nervous system, unspecified
CPT/HCPCS: 70551

== ENCOUNTER 2020-04-28 18:34 | Outpatient (REF) | payer MEDICAID, SELFPAY ==
[2020-04-30 09:38] LABS: AFP Tumor Marker <2.5 ng/mL (<8.1)
== END 2020-04-28 18:54 ==
LOC: LBN 18:34
PROVIDERS: PCP Family Medicine; Visit Provider Family Medicine
DX: K73.9 Chronic hepatitis, unspecified (principal); R16.0 Hepatomegaly, not elsewhere classified
CPT/HCPCS: 82105

== ENCOUNTER 2020-04-30 03:56 | Outpatient (CLI) | payer MEDICAID, SELFPAY | END 2020-04-30 04:16 | PROVIDERS: PCP Family Medicine; Visit Provider Psychiatry & Neurology Neurology | DX: I77.6 Arteritis, unspecified (principal); I63.9 Cerebral infarction, unspecified | CPT/HCPCS: 93270 ==

== ENCOUNTER 2020-06-01 19:45 | Outpatient (REF) | payer MEDICAID, SELFPAY ==
[2020-06-01 16:01] LABS: Abs Immature Grans 0.02 10^3/uL (0.0-0.06); Absolute Basophil Count 0.03 10^3/uL (0.0-0.2); Absolute Eosinophil Count 0.19 10^3/uL (0.0-0.7); Absolute Lymphocyte Count 3.02 10^3/uL (1.2-3.4); Absolute Monocyte Count 0.54 10^3/uL (0.1-0.8); Absolute Neutrophil Count 2.56 10^3/uL (1.2-6.7); Basophils % 0.5; HCT 37.5 % (36.0-46.0); HGB 12.2 g/dL (11.2-15.7); Immature Grans % 0.3; Lymphocytes % 47.5; MCH 30.4 pg (27.0-33.0); MCHC 32.5 % (32.0-36.0); MCV 93.5 fL (80-95); MPV 10.4 fL (8.0-11.0); Monocytes % 8.5; Neutrophils % 40.2; Nucleated RBC 0 %; Platelet Count 232 10^3/uL (130-400); RBC 4.01 10^6/uL (3.93-5.22); RDW 13.4 % (11.7-14.6); RDW-SD 46.1 fL; WBC 6.36 10^3/uL (4.4-10.8)
[2020-06-01 16:54] LABS: Anion Gap 8.4 mmol/L (3-11); BUN 15 mg/dL (7-18); CO2 26.6 mmol/L (21.0-32.0); CREATININE 1.06 mg/dL (0.55-1.02); Calcium 11.5 mg/dL (8.5-10.1); Chloride 102 mmol/L (98-107); Estimated GFR 52.88 (mL/min/1.73m2); Glucose 192 mg/dL (74-106); Potassium 3.7 mmol/L (3.5-5.1); Sodium 137 mmol/L (136-145)
== END 2020-06-01 20:05 ==
LOC: LBN 19:45
PROVIDERS: PCP Family Medicine; Visit Provider Family Medicine
DX: E11.59 Type 2 diabetes mellitus with other circulatory complications (principal); E27.40 Unspecified adrenocortical insufficiency; K80.10 Calculus of gallbladder with chronic cholecystitis without obstruction; K85.10 Biliary acute pancreatitis without necrosis or infection; G21.19 Other drug induced secondary parkinsonism
CPT/HCPCS: 80048; 85025

== ENCOUNTER 2020-06-02 00:50 | Outpatient (CLI) | payer MEDICAID, SELFPAY ==
--- NOTE | 2020-06-02 | DI.RAD_ITS ---
EXAM: XR SHOULDER LT COMPLETE 2+V CLINICAL HISTORY: LT SHOULDER PAIN, POPPING, NO TRAUMA TECHNIQUE: 2D digital imaging was performed. COMPARISON: No exams were available for comparison FINDINGS: The exam is mildly limited by overlying clothing. There is mild spurring at the AC joint. There is mild spurring at the glenoid. A large spur is seen at the inferior humeral head. A rounded calcific ation is noted near the humeral head. The glenohumeral joint is relatively well maintained. Fusion hardware is seen in the lower cervical spine. IMPRESSION: [id number]-ugffabks degenerative changes and question of calcific tendinosis versus calcific bursitis.
--- NOTE | 2020-06-02 | DI.RAD_ITS ---
EXAM: 2D digital imaging was performed. CLINICAL HISTORY: CHRONIC CONSTIPATION. COMPARISON: CR XR ABDOMEN FLAT PLATE from 04/06/2020 TECHNIQUE: Supine views of the abdomen performed. FINDINGS: BOWEL GAS PATTERN: Nondistended. Large quantity of stool in the rectum. Normal quantity of stool els ewhere. The visualized portions of the lung bases are clear. IMPRESSION: Large quantity of stool in the rectum. DATA REPOSITORY: RADIATION DOSE DELIVERED:
--- NOTE | 2020-06-02 14:42 | DI.MAMMO_ITS ---
EXAM: MG MAMMO SCREENING 60 MIN DUR CLINICAL HISTORY: SCREENING,H/O CATEGORY 3 MAMMO TECHNIQUE: Mammograms were interpreted according to the usual protocol including computer analysis w [employer] CAD system, tomosynthesis and C-view imaging. COMPARISON: 2019 FINDINGS: The breasts are composed of scattered fibroglandular densities, Breast Density category B. The exam is quite limited by patient immobility. The right breast was unable to be imaged. No suspicious masses or suspicious microcalcifications are seen. Vascular calcification and benign s ecretory type calcifications are again noted. No skin thickening or abnormal axillary lymph nodes are seen. There has been no significant change from prior exams. IMPRESSION: BI-RADS Category 2 - Benign Findings Yearly screening mammography is recommended. Breast Density - Category B, scattered fibroglandular densities. A negative radiographic report should not delay biopsy if a dominant or clinically suspicious mass is present. Up to ten percent of cancers are not identified on mammography. A negative report may reinforce clinical impression. Adenosis and dense breasts may obscure an underlying neoplasm. False positive reports average 6 to 10%. Patient will receive a letter notifying them of these results.
== END 2020-06-02 01:10 ==
PROVIDERS: PCP Family Medicine; Visit Provider Family Medicine
DX: Z12.31 Encounter for screening mammogram for malignant neoplasm of breast (principal); R92.1 Mammographic calcification found on diagnostic imaging of breast; M19.012 Primary osteoarthritis, left shoulder; K59.09 Other constipation
CPT/HCPCS: 77063; 77067; 73030; 74018

== ENCOUNTER 2020-06-02 16:27 | Outpatient (REF) | payer MEDICAID, SELFPAY ==
[2020-06-02 15:52] LABS: ALT 21 U/L (14-59); AST 38 U/L (15-37); Albumin 3.7 g/dL (3.4-5.0); Alkaline Phosphatase 89 U/L (46-116); Bilirubin, Total 0.4 mg/dL (0.2-1.0); Magnesium 1.4 mg/dL (1.8-2.4); Total Protein 7.6 g/dL (6.4-8.2)
[2020-06-02 16:34] LABS: Bilirubin, Direct 0.11 mg/dL (0.00-0.20); C-Reactive Protein 0.16 mg/dL (0.0-0.3)
[2020-06-02 17:20] LABS: ESR 31 mm/hr (0-30)
[2020-06-03 11:20] LABS: Parathyroid Hormone,Intact 9 pg/mL (19-88)
[2020-06-03 12:30] LABS: Vitamin D 25 Total 49.2 ng/ml (30-100)
== END 2020-06-02 16:47 ==
LOC: LBN 16:27
PROVIDERS: PCP Family Medicine; Visit Provider Family Medicine
DX: E03.9 Hypothyroidism, unspecified (principal); K73.9 Chronic hepatitis, unspecified; E87.8 Other disorders of electrolyte and fluid balance, not elsewhere classified; E83.52 Hypercalcemia
CPT/HCPCS: 80076; 82306; 85652; 82310; 83735; 83970; 86140

== ENCOUNTER 2020-06-03 13:40 | Outpatient (REF) | payer MEDICAID, SELFPAY ==
[2020-06-03 14:02] LABS: Calcium 11.5 mg/dL (8.5-10.1)
[2020-06-03 14:51] LABS: Vitamin D 25 Total 47.8 ng/ml (30-100)
[2020-06-03 17:58] LABS: T4 11.1 ug/mL (4.7-13.3); TSH 0.28 uIU/mL (0.36-3.74)
[2020-06-08 21:10] LABS: 1,25-Dihydroxyvitamin D 8.3 pg/mL (18-78)
== END 2020-06-03 14:00 ==
LOC: LBN 13:40
PROVIDERS: PCP Family Medicine; Visit Provider Family Medicine
DX: E83.52 Hypercalcemia (principal)
CPT/HCPCS: 82306; 82310; 82652; 84436; 84443

== ENCOUNTER 2020-06-04 09:14 | Outpatient (REF) | payer MEDICAID, SELFPAY ==
[2020-06-04 09:37] LABS: Albumin 3.6 g/dL (3.4-5.0); Calcium 10.9 mg/dL (8.5-10.1)
[2020-06-08 09:57] LABS: Free Retinol (Vitamin A) 85.1 mcg/dL (32.5-78.0)
[2020-06-08 15:57] LABS: PTH-Related Peptide 0.6 pmol/L (< or = 4.2)
== END 2020-06-04 09:34 ==
LOC: LBN 09:14
PROVIDERS: PCP Family Medicine; Visit Provider Family Medicine
DX: E83.52 Hypercalcemia (principal); E87.8 Other disorders of electrolyte and fluid balance, not elsewhere classified; K73.9 Chronic hepatitis, unspecified
CPT/HCPCS: 82040; 82310; 82397; 84590

== ENCOUNTER 2020-06-09 01:36 | Outpatient (CLI) | payer MEDICAID, SELFPAY ==
--- NOTE | 2020-06-09 10:33 | DI.US_ITS ---
APPROVED REPORT EXAM: Comprehensive 2D, Doppler, and color-flow Echocardiogram Patient Location: Out-Patient Litigation Services Manager: Gaviota Wilcox RDCS (AE) Indications: Recurrent strokes, CVA Other Information Technically limited study due to inability to position patient. Conclusion This is a technically limited study Left Ventricle : The left ventricle is normal size. The left ventricular systolic function is normal. The left ventricular ejection fraction is within the normal range. There is normal left ventricular wall thickness. There is normal LV segmental wall motion. Transmitral Doppler flow pattern suggests i mpaired LV relaxation. LVEF is 55%. Right Ventricle : Right ventricle is not well visualized. Right ventricular systolic function could n ot be assessed. Atria : The left atrium size is normal. Right atrium is not well visualized. Valves: There are no hemodynamically significant valvular lesions. Great Vessels : The aortic root is normal in size. The ascending aorta is normal in size. IVC is norm al in size and collapses >50% with inspiration. Wall motion Left Ventricle The left ventricle is normal size. The left ventricular systolic function is normal. The left ventric ular ejection fraction is within the normal range. There is normal left ventricular wall thickness. T here is normal LV segmental wall motion. Transmitral Doppler flow pattern suggests impaired LV relaxa tion. There is no ventricular septal defect visualized. LVEF is 55%. Right Ventricle Right ventricle is not well visualized. Right ventricular systolic function could not be assessed. Atria The left atrium size is normal. Right atrium is not well visualized. The interatrial septum is intact with no evidence for an atrial septal defect. Aortic Valve The aortic valve is normal in structure. Aortic valve is trileaflet. There is no aortic valvular sten osis. No aortic regurgitation is present. Mitral Valve The mitral valve is normal in structure. No evidence of mitral valve stenosis. Trace mitral regurgita tion. Tricuspid Valve The tricuspid valve is normal in structure. There is no tricuspid valve stenosis. Trace tricuspid reg urgitation. Unable to assess PA pressure. Pulmonic Valve Pulmonic valve is not well visualized. There is no pulmonic valvular stenosis. There is no pulmonic v alvular regurgitation. Great Vessels The aortic root is normal in size. The ascending aorta is normal in size. IVC is normal in size and c ollapses >50% with inspiration. Pericardium There is no pericardial effusion. 2D Dimensions IVSD d PLAX 1.07 cm F: 0.6-1.0 LV Vol A2C d MOD 50.1 mL LVPW d PLAX 1.07 cm F: 0.6 - 1.0 LV Vol A4C d MOD 88.9 mL LVID d PLAX 4.03 cm F: 3.8 - 5.2 LA vol/ BSA A2C s A-L 8.9 mL/m2 LVDs 2.85 cm F: 2.2 - 3.5 LA Area A2C s MOD 8.87 cm2 Ao Root d 2.77 cm F: 2.7 - 3.3 LV EF A4C MOD 50.1 % Ao Asc Diam d 3.09 cm F: 2.3 - 3.1 LV EF A2C MOD 55.3 % LV EF Teichholz 55.6 % LV EF Biplane MOD 52.9 % LVEF (Roberts's) 52.90 % F: 54 - 74 SV 36.87 mL LV Volume 52.46 mL F: 46 - 106 SV Index 18.64 mL/m2 LV Volume Index 26.62 mL/m2 F: 29 - 61 LV Vol Biplane MOD 69.7 mL FS 28.55 % M-Mode TAPSE 2.30 cm (M/F) >1.7 LV Diastology MV E' medial 0.057 (>0.07 m/s) E/A Ratio 0.8 LV E/e MED 10.15 (<14) MV E Vmax 0.58 (0.4-1.3 m/s) MV E' lateral 0.068 (>0.1 m/s) MV A Vmax 0.75 (0.4-1.3 m/s) LV E/e LAT 8.50 (<14) MV E/A Ratio 0.76 MV E/E' medial 10.17 MV E/E' lateral 8.54 Aortic Valve LVOT Area 2.86 cm2 AoV Area Vmax 2.15 cm2 LVOT Vmax 0.74 m/s AoV Area/ BSA (Vmax) 1.09 cm2/m2 LVOT Mean Keith. 0.45 m/s SUSANNAH Mean Keith. 1.78 cm2 LVOT Peak Grad 2.2 mmHg SUSANNAH Mean Keith. Index 0.90 cm2/m2 LVOT Mean Grad 1.0 mmHg LVOT VTI 0.100 m LVOT Diam s 1.90 cm AoV Vmax 0.99 m/s Velocity Ratio 0.74 AoV Mean Keith. 0.72 m/s AoV Peak Grad 3.9 mmHg LVOT SV 28.72 mL AoV Mean Grad 2.3 mmHg AoV VTI 0.157 m AoV Area VTI 1.83 cm2 AoV Area/ BSA (VTI) 0.93 cm/m2 Mitral Valve MV DT 282 (160-240 msec) MV PHT 82 msec MV Area PHT 2.69 cm2 Pulmonary Valve PV Vmax 0.99 (0.5-1.5 m/s) RVOT Peak Gr. 3.06 mmHg PV Peak Grad 3.9 mmHg RVOT Mean Gr. 1.65 mmHg PV Mean Grad 2.2 mmHg RVOT VTI 0.145 m PV VTI 0.144 m RVOT Vmax 0.88 m/s
== END 2020-06-09 01:56 ==
PROVIDERS: PCP Family Medicine; Visit Provider Psychiatry & Neurology Neurology
DX: I08.0 Rheumatic disorders of both mitral and aortic valves (principal)
CPT/HCPCS: 93306

== ENCOUNTER 2020-06-28 15:49 | Outpatient (REF) | payer MEDICAID, SELFPAY ==
[2020-06-28 17:28] LABS: ALT 23 U/L (14-59); AST 29 U/L (15-37); Albumin 3.2 g/dL (3.4-5.0); Alkaline Phosphatase 77 U/L (46-116); Anion Gap 11.7 mmol/L (3-11); BUN 15 mg/dL (7-18); Bilirubin, Total 0.3 mg/dL (0.2-1.0); CO2 23.3 mmol/L (21.0-32.0); CREATININE 0.95 mg/dL (0.55-1.02); Calcium 9.3 mg/dL (8.5-10.1); Chloride 102 mmol/L (98-107); Glucose 326 mg/dL (74-106); Potassium 4.7 mmol/L (3.5-5.1); Sodium 137 mmol/L (136-145); TSH (W/Ref FT4) 2.58 uIU/mL (0.36-3.74); Total Protein 6.9 g/dL (6.4-8.2)
[2020-06-28 17:50] LABS: Hemoglobin A1C 7.4 % (<5.7)
[2020-06-30 13:40] LABS: Lamotrigine 1.7 mcg/mL (2.5 - 15.0)
== END 2020-06-28 16:09 ==
LOC: NCHCN 15:49
PROVIDERS: PCP Family Medicine; Visit Provider Family Medicine
DX: E11.59 Type 2 diabetes mellitus with other circulatory complications (principal); E27.40 Unspecified adrenocortical insufficiency; G21.19 Other drug induced secondary parkinsonism; M25.512 Pain in left shoulder; Z51.81 Encounter for therapeutic drug level monitoring
CPT/HCPCS: 80053; 80175; 85652; 83036; 84443

== ENCOUNTER 2020-07-28 01:06 | Outpatient (CLI) | payer MEDICAID, SELFPAY ==
--- NOTE | 2020-07-28 09:45 | DI.MRI_ITS ---
EXAM: MR UPPER JOINT LT WO CLINICAL HISTORY: PROFOUND ROTATOR CUFF WEAKNESS,LT ROTATOR CUFF TEAR,S46.012A. TECHNIQUE: Multiplanar multisequence MRI was performed. COMPARISON: CR XR SHOULDER LT COMPLETE 2+V from 06/02/2020 FINDINGS: BONES: There is no fracture or contusion pattern. JOINTS: Mild degenerative changes at the acromioclavicular joint. Mild degenerative changes at the g lenohumeral joint. There is a joint effusion. TENDONS: Supraspinatus: There is tendinosis of the supraspinatus tendon. There is some hyperintense signal se en within the tendon suspicious for partial tear. Infraspinatus: Tendinosis of the infraspinatus tendon. There is hyperintense signal seen at the inse rtion site anteriorly suggestive of a partial tear. Subscapularis: Unremarkable. Teres Minor: Unremarkable. Biceps and Alvo: The biceps anchor and adjacent tendon are decreased in size. This may represent a chronic partial tear. Biceps tendon appears of normal caliber distal to the subscapularis tendon. MUSCLES: Unremarkable. GLENOID LABRUM: Unremarkable on this noncontrast examination. SOFT TISSUES: Unremarkable. LIGAMENTS: Unremarkable. OTHER: Subacromial and subdeltoid bursae are unremarkable. IMPRESSION: 1. Tendinosis of both the supraspinatus and infraspinatus tendons. Hyperintense signal is also seen near the intact insertion sites of both tendon suspicious for partial tears. 2. Thinning of the proximal biceps tendon suspicious for partial tear. 3. Degenerative changes of the acromioclavicular and glenohumeral joints. Joint effusion. DATA REPOSITORY:
== END 2020-07-28 01:26 ==
PROVIDERS: PCP Family Medicine; Visit Provider Student in an Organized Health Care Education/Training Program
DX: M75.82 Other shoulder lesions, left shoulder; M19.012 Primary osteoarthritis, left shoulder
CPT/HCPCS: 73221

== ENCOUNTER 2020-10-25 15:19 | Outpatient (REF) | payer MEDICAID, SELFPAY ==
[2020-10-25 15:27] LABS: Hemoglobin A1C 8.5 % (<5.7)
== END 2020-10-25 15:39 ==
LOC: LBN 15:19
PROVIDERS: PCP Family Medicine; Visit Provider Family Medicine
DX: E11.9 Type 2 diabetes mellitus without complications (principal); E66.01 Morbid (severe) obesity due to excess calories
CPT/HCPCS: 83036

== ENCOUNTER 2020-11-03 22:47 | Outpatient (REF) | payer MEDICAID, SELFPAY ==
[2020-11-03 22:09] LABS: Abs Immature Grans 0.01 10^3/uL (0.0-0.06); Absolute Basophil Count 0.02 10^3/uL (0.0-0.2); Absolute Eosinophil Count 0.14 10^3/uL (0.0-0.7); Absolute Lymphocyte Count 2.18 10^3/uL (1.2-3.4); Absolute Monocyte Count 0.41 10^3/uL (0.1-0.8); Absolute Neutrophil Count 2.42 10^3/uL (1.2-6.7); Basophils % 0.4; Eosinophils % 2.7; HCT 39.6 % (36.0-46.0); HGB 12.3 g/dL (11.2-15.7); Immature Grans % 0.2; Lymphocytes % 42.1; MCH 29.4 pg (27.0-33.0); MCHC 31.1 % (32.0-36.0); MCV 94.5 fL (80-95); MPV 10.2 fL (8.0-11.0); Monocytes % 7.9; Neutrophils % 46.7; Nucleated RBC 0 %; Platelet Count 224 10^3/uL (130-400); RBC 4.19 10^6/uL (3.93-5.22); RDW 13.7 % (11.7-14.6); RDW-SD 47.1 fL; WBC 5.18 10^3/uL (4.4-10.8)
[2020-11-03 22:23] LABS: ALT 30 U/L (14-59); AST 47 U/L (15-37); Albumin 3.4 g/dL (3.4-5.0); Alkaline Phosphatase 107 U/L (46-116); Anion Gap 10.3 mmol/L (3-11); BUN 10 mg/dL (7-18); Bilirubin, Total 0.3 mg/dL (0.2-1.0); CO2 25.7 mmol/L (21.0-32.0); CREATININE 0.8 mg/dL (0.55-1.02); Calcium 9.7 mg/dL (8.5-10.1); Chloride 102 mmol/L (98-107); Glucose 233 mg/dL (74-106); Potassium 4.4 mmol/L (3.5-5.1); Sodium 138 mmol/L (136-145); Total Protein 7.2 g/dL (6.4-8.2)
== END 2020-11-03 22:48 | disposition home or self-care (01) ==
LOC: NCHCN 22:47
PROVIDERS: PCP Family Medicine; Visit Provider Family Medicine
DX: E11.59 Type 2 diabetes mellitus with other circulatory complications (principal); E66.01 Morbid (severe) obesity due to excess calories; F60.1 Schizoid personality disorder; F31.32 Bipolar disorder, current episode depressed, moderate; E87.8 Other disorders of electrolyte and fluid balance, not elsewhere classified; N20.0 Calculus of kidney
CPT/HCPCS: 80053; 85025

== ENCOUNTER 2020-11-05 03:04 | Outpatient (CLI) | payer MEDICAID, SELFPAY ==
--- NOTE | 2020-11-05 | DI.RAD_ITS ---
EXAM: 2D digital imaging was performed. CLINICAL HISTORY: ABD DISTENSION, H/O CONSTIPATION,? OBSTIPATION,FECAL IMPACTION OR BOWEL. COMPARISON: CR XR ABDOMEN FLAT PLATE from 06/02/2020 TECHNIQUE: Supine views of the abdomen performed. FINDINGS: BOWEL GAS PATTERN: Nondistended. There is again noted to be a large quantity of stool in the rectum . The remainder of the colon shows a moderate amount of stool. There is no abnormal small bowel dis tension. CALCIFICATIONS: No radiopaque calcifications. Urinary tract calcifications could be easily obscured by stool and bowel gas. Evaluation is also limited by patient body habitus. OSSEOUS STRUCTURES: Normal for age. OTHER FINDINGS: Lung bases are clear. IMPRESSION: 1. Nonobstructive bowel gas pattern. Large quantity of stool in the rectum. DATA REPOSITORY: RADIATION DOSE DELIVERED:
== END 2020-11-05 03:05 ==
LOC: DI 03:04
PROVIDERS: PCP Family Medicine; Visit Provider Family Medicine
DX: R14.0 Abdominal distension (gaseous) (principal); K59.00 Constipation, unspecified; N13.2 Hydronephrosis with renal and ureteral calculous obstruction
CPT/HCPCS: 74018

== ENCOUNTER 2020-11-08 16:50 | Outpatient (CLI) | payer MEDICAID, SELFPAY ==
--- NOTE | 2020-11-05 | DI.CT_ITS ---
EXAM: CT RENAL COLIC WO CLINICAL HISTORY: NEPHROLITHIASIS N20.0. TECHNIQUE: Imaging Protocol: Axial computed tomography images with coronal and sagittal reformatted images were created and reviewed. CONTRAST MATERIAL: Noncontrast COMPARISON: CT CT ABDOMEN PELVIS W from 03/26/[address] ABDOMEN PELVIS W from 03/26/[address] BRAIN NECK CTA from 03/30/2020 FINDINGS: ABDOMEN: Minimal patchy densities are seen at the medial left lower lobe. No pleural or pericardial effusions are seen. Heart size appears normal. Coronary artery calcifications are seen. The liver is enlarg ed and shows severe fatty infiltration. The gallbladder is unremarkable. The pancreas appears somew hat atrophic. The adrenals and spleen are unremarkable. Staghorn type calculi are noted in the righ t collecting system. There is mild dilatation of the upper collecting system. No ureteral dilatatio n or distal ureteral calculus the are seen. There is air in the urinary bladder. Which is mildly di stended and shows mild wall thickening. Left collecting system shows no evidence of calculi. The ut erus is enlarged with multiple fibroids. There is a large quantity of stool seen in the rectum, with a diameter of 8.8 cm. Findings are similar to the previous exam. There is diffuse right rectal wal l thickening. There is no visible mass. The remainder of the colon shows a moderate to increased qu antity of stool. The appendix appears normal. There is no small bowel dilatation. Some food and ai r is seen within the stomach. Degenerative changes are seen greatest at L5-S1. The bones appear ost eoporotic. No fractures are seen. IMPRESSION: Staghorn calculi in the right collecting system with mild hydronephrosis. Large quantity of stool in the rectum and diffuse rectal wall thickening. RADIATION DOSE DELIVERED: 1,422.17mGy.cm Total DLP DATA REPOSITORY: All CT scans at this facility are submitted to the National Radiology Data Registry (NRDR) Dose Index Registry (DIR) with the [employer] (ACR). RADIATION OPTIMIZATION: All CT scans at this facility use at least one of these dose optimization te chniques: automated exposure control; mA and/or kV adjustment per patient size (includes targeted exa ms where dose is matched to clinical indication); or iterative reconstruction.
== END 2020-11-08 17:10 ==
PROVIDERS: PCP Family Medicine; Visit Provider Urology
DX: N20.0 Calculus of kidney (principal); N13.39 Other hydronephrosis; K59.00 Constipation, unspecified
CPT/HCPCS: 74176

== ENCOUNTER 2020-12-16 21:38 | Outpatient (REF) | payer MEDICAID, SELFPAY ==
[2020-12-16 19:29] LABS: Abs Immature Grans 0.03 10^3/uL (0.0-0.06); Absolute Basophil Count 0.02 10^3/uL (0.0-0.2); Absolute Eosinophil Count 0.14 10^3/uL (0.0-0.7); Absolute Lymphocyte Count 2.67 10^3/uL (1.2-3.4); Absolute Monocyte Count 0.56 10^3/uL (0.1-0.8); Absolute Neutrophil Count 5.18 10^3/uL (1.2-6.7); Basophils % 0.2; Eosinophils % 1.6; HCT 40.9 % (36.0-46.0); HGB 12.5 g/dL (11.2-15.7); Immature Grans % 0.3; MCH 28.8 pg (27.0-33.0); MCHC 30.6 % (32.0-36.0); MCV 94.2 fL (80-95); MPV 10.4 fL (8.0-11.0); Monocytes % 6.5; Neutrophils % 60.4; Nucleated RBC 0 %; Platelet Count 286 10^3/uL (130-400); RBC 4.34 10^6/uL (3.93-5.22); RDW 14.3 % (11.7-14.6); RDW-SD 49.2 fL
[2020-12-16 19:49] LABS: ALT 26 U/L (14-59); AST 50 U/L (15-37); Albumin 3.4 g/dL (3.4-5.0); Alkaline Phosphatase 94 U/L (46-116); Anion Gap 13.4 mmol/L (3-11); BUN 12 mg/dL (7-18); Bilirubin, Total 0.4 mg/dL (0.2-1.0); CO2 24.6 mmol/L (21.0-32.0); CREATININE 0.7 mg/dL (0.55-1.02); Calcium 9.7 mg/dL (8.5-10.1); Chloride 105 mmol/L (98-107); Glucose 162 mg/dL (74-106); Magnesium 1.5 mg/dL (1.8-2.4); Potassium 4.1 mmol/L (3.5-5.1); Sodium 143 mmol/L (136-145); Total Protein 7.4 g/dL (6.4-8.2)
[2020-12-16 20:01] LABS: Hemoglobin A1C 8.3 % (<5.7)
== END 2020-12-16 21:39 | disposition home or self-care (01) ==
LOC: LBN 21:38
PROVIDERS: PCP Family Medicine; Visit Provider Family Medicine
DX: E11.59 Type 2 diabetes mellitus with other circulatory complications (principal); E27.40 Unspecified adrenocortical insufficiency; K73.8 Other chronic hepatitis, not elsewhere classified; E83.42 Hypomagnesemia
CPT/HCPCS: 80053; 83036; 83735; 85025

== ENCOUNTER 2020-12-29 16:03 | Outpatient (REF) | payer MEDICAID, SELFPAY ==
[2020-12-29 17:46] LABS: Abs Immature Grans 0.02 10^3/uL (0.0-0.06); Absolute Basophil Count 0.03 10^3/uL (0.0-0.2); Absolute Lymphocyte Count 1.99 10^3/uL (1.2-3.4); Absolute Monocyte Count 0.46 10^3/uL (0.1-0.8); Absolute Neutrophil Count 3.44 10^3/uL (1.2-6.7); Basophils % 0.5; Eosinophils % 3.3; HCT 38.9 % (36.0-46.0); HGB 11.8 g/dL (11.2-15.7); Immature Grans % 0.3; Lymphocytes % 32.4; MCH 28.8 pg (27.0-33.0); MCHC 30.3 % (32.0-36.0); MCV 94.9 fL (80-95); MPV 10.8 fL (8.0-11.0); Monocytes % 7.5; Nucleated RBC 0 %; Platelet Count 218 10^3/uL (130-400); RDW 14.8 % (11.7-14.6); RDW-SD 51.5 fL; WBC 6.14 10^3/uL (4.4-10.8)
[2020-12-29 18:17] LABS: Hemoglobin A1C 8.1 % (<5.7)
[2020-12-29 18:40] LABS: ALT 32 U/L (14-59); AST 59 U/L (15-37); Albumin 3.4 g/dL (3.4-5.0); Alkaline Phosphatase 96 U/L (46-116); Anion Gap 13.7 mmol/L (3-11); BUN 12 mg/dL (7-18); Bilirubin, Total 0.3 mg/dL (0.2-1.0); CO2 23.3 mmol/L (21.0-32.0); CREATININE 0.8 mg/dL (0.55-1.02); Calcium 9.3 mg/dL (8.5-10.1); Chloride 105 mmol/L (98-107); Glucose 194 mg/dL (74-106); Potassium 4.4 mmol/L (3.5-5.1); Sodium 142 mmol/L (136-145); Total Protein 7.3 g/dL (6.4-8.2)
== END 2020-12-29 16:04 | disposition home or self-care (01) ==
LOC: NCHCN 16:03
PROVIDERS: PCP Family Medicine; Visit Provider Family Medicine
DX: E11.59 Type 2 diabetes mellitus with other circulatory complications (principal); D75.89 Other specified diseases of blood and blood-forming organs; E27.40 Unspecified adrenocortical insufficiency; K80.10 Calculus of gallbladder with chronic cholecystitis without obstruction; E66.01 Morbid (severe) obesity due to excess calories
CPT/HCPCS: 80053; 83036; 85025

== ENCOUNTER 2021-03-29 15:10 | Outpatient (REF) | payer MEDICAID, SELFPAY ==
[2021-03-29 17:58] LABS: Hemoglobin A1C 6.8 % (<5.7)
[2021-03-31 11:02] LABS: Hepatitis C Ab w Rflx HCV PCR Reactive (Negative)
[2021-04-01 09:47] LABS: AFP Tumor Marker <2.5 ng/mL (<8.1)
[2021-04-01 13:27] LABS: HCV RNA Qualitative Detected (Undetected)
== END 2021-03-29 15:11 | disposition home or self-care (01) ==
LOC: LBN 15:10
PROVIDERS: PCP Family Medicine; Visit Provider Nurse Practitioner Gerontology
DX: E11.59 Type 2 diabetes mellitus with other circulatory complications (principal); D75.89 Other specified diseases of blood and blood-forming organs; E27.40 Unspecified adrenocortical insufficiency; K73.8 Other chronic hepatitis, not elsewhere classified
CPT/HCPCS: 86803; 87522; 82105; 83036

== ENCOUNTER 2021-04-20 12:28 | Outpatient (REF) | payer MEDICAID, SELFPAY ==
[2021-04-20 12:56] LABS: Bilirubin Negative (Negative); Blood Large (Negative); Clarity Cloudy (Clear); Glucose Negative (Negative); Ketones Negative (Negative); Leukocyte Esterase Moderate (Negative); Nitrite Positive (Negative); Urobilinogen 0.2 EU/dL (Up TO 0.2)
[2021-04-20 13:01] LABS: Bacteria Many HPF (Negative); Epithelial Cells Few HPF (Negative); RBC >50 HPF (0-2); WBC >50 HPF (0-5)
[2021-04-20 13:02] LABS: C & S Indicated? C&S Done As Ordered; Casts 5-10 Hyaline LPF (Negative); Crystals Negative HPF (Negative); Mucus Negative (Negative)
== END 2021-04-20 12:29 | disposition home or self-care (01) ==
LOC: LBN 12:28
PROVIDERS: PCP Family Medicine; Visit Provider Nurse Practitioner Gerontology
DX: R82.998 Other abnormal findings in urine (principal)
CPT/HCPCS: 87077; 81003; 81015; 87086; 87186

== ENCOUNTER 2021-05-09 14:50 | Outpatient (REF) | payer MEDICAID, SELFPAY ==
[2021-05-09 15:59] LABS: Bilirubin Negative (Negative); Blood Trace-intact (Negative); Clarity Sl Cloudy (Clear); Glucose Negative (Negative); Ketones Negative (Negative); Leukocyte Esterase Large (Negative); Nitrite Negative (Negative); Specific Gravity 1.015 (1.005-1.025); Urobilinogen 0.2 EU/dL (Up TO 0.2)
[2021-05-09 16:11] LABS: Bacteria Many HPF (Negative); C & S Indicated? C&S Done As Ordered; Casts Negative LPF (Negative); Crystals Negative HPF (Negative); Epithelial Cells Few HPF (Negative); Mucus Negative (Negative); WBC >50 HPF (0-5)
== END 2021-05-09 14:51 | disposition home or self-care (01) ==
LOC: LBN 14:50
PROVIDERS: PCP Family Medicine; Visit Provider Internal Medicine
DX: Z01.818 Encounter for other preprocedural examination (principal); R82.998 Other abnormal findings in urine
CPT/HCPCS: 87077; 81003; 81015; 87086; 87186

== ENCOUNTER 2021-06-07 16:02 | Outpatient (REF) | payer MEDICAID, SELFPAY ==
[2021-06-07 17:52] LABS: Bilirubin Negative (Negative); Blood Negative (Negative); Clarity Sl Cloudy (Clear); Glucose Negative (Negative); Ketones Negative (Negative); Leukocyte Esterase Moderate (Negative); Nitrite Negative (Negative); Specific Gravity 1.015 (1.005-1.025); Urobilinogen 0.2 EU/dL (Up TO 0.2); pH 6.5 (5-8)
[2021-06-07 18:21] LABS: Bacteria Many HPF (Negative); C & S Indicated? C&S Done As Ordered; Casts Negative LPF (Negative); Crystals Negative HPF (Negative); Epithelial Cells Negative HPF (Negative); Mucus Negative (Negative); Other Cells Negative (Negative); RBC Negative HPF (0-2); WBC >50 HPF (0-5)
== END 2021-06-07 16:03 | disposition home or self-care (01) ==
LOC: LBN 16:02
PROVIDERS: PCP Family Medicine; Visit Provider Internal Medicine
DX: N39.0 Urinary tract infection, site not specified (principal)
CPT/HCPCS: 87077; 81003; 81015; 87086; 87186

== ENCOUNTER 2021-06-29 18:54 | Outpatient (REF) | payer MEDICAID, SELFPAY ==
[2021-06-29 19:08] LABS: Abs Immature Grans 0.02 10^3/uL (0.0-0.06); Absolute Basophil Count 0.03 10^3/uL (0.0-0.2); Absolute Eosinophil Count 0.23 10^3/uL (0.0-0.7); Absolute Lymphocyte Count 1.84 10^3/uL (1.2-3.4); Absolute Neutrophil Count 2.73 10^3/uL (1.2-6.7); Basophils % 0.6; Eosinophils % 4.3; HCT 37.9 % (36.0-46.0); HGB 11.2 g/dL (11.2-15.7); Immature Grans % 0.4; Lymphocytes % 34.4; MCH 27.2 pg (27.0-33.0); MCHC 29.6 % (32.0-36.0); MPV 10.2 fL (8.0-11.0); Monocytes % 9.3; Nucleated RBC 0 %; Platelet Count 240 10^3/uL (130-400); RBC 4.12 10^6/uL (3.93-5.22); RDW 14.6 % (11.7-14.6); RDW-SD 49.3 fL; WBC 5.35 10^3/uL (4.4-10.8)
[2021-06-29 19:24] LABS: Hemoglobin A1C 7.3 % (<5.7)
[2021-06-29 19:25] LABS: ALT 16 U/L (14-59); AST 38 U/L (15-37); Albumin 3.2 g/dL (3.4-5.0); Alkaline Phosphatase 94 U/L (46-116); Anion Gap 9.1 mmol/L (3-11); BUN 12 mg/dL (7-18); Bilirubin, Total 0.3 mg/dL (0.2-1.0); CO2 26.9 mmol/L (21.0-32.0); CREATININE 0.8 mg/dL (0.55-1.02); Calcium 9.3 mg/dL (8.5-10.1); Chloride 104 mmol/L (98-107); Glucose 191 mg/dL (74-106); Potassium 4.4 mmol/L (3.5-5.1); Sodium 140 mmol/L (136-145)
[2021-07-01 16:22] LABS: Lamotrigine 1.3 mcg/mL (2.5 - 15.0)
== END 2021-06-29 18:55 | disposition home or self-care (01) ==
LOC: LBN 18:54
PROVIDERS: PCP Family Medicine; Visit Provider Internal Medicine
DX: N20.0 Calculus of kidney (principal); E11.59 Type 2 diabetes mellitus with other circulatory complications; E27.40 Unspecified adrenocortical insufficiency; K85.10 Biliary acute pancreatitis without necrosis or infection; D75.89 Other specified diseases of blood and blood-forming organs; G21.19 Other drug induced secondary parkinsonism; I69.398 Other sequelae of cerebral infarction
CPT/HCPCS: 80053; 80175; 83036; 84443; 85025

== ENCOUNTER 2021-10-25 16:05 | Outpatient (REF) | payer MEDICAID, SELFPAY ==
[2021-10-25 16:31] LABS: Abs Immature Grans 0.01 10^3/uL (0.0-0.06); Absolute Basophil Count 0.01 10^3/uL (0.0-0.2); Absolute Eosinophil Count 0.22 10^3/uL (0.0-0.7); Absolute Lymphocyte Count 2.21 10^3/uL (1.2-3.4); Absolute Monocyte Count 0.41 10^3/uL (0.1-0.8); Absolute Neutrophil Count 1.89 10^3/uL (1.2-6.7); Basophils % 0.2; Eosinophils % 4.6; HCT 38.1 % (36.0-46.0); HGB 11.2 g/dL (11.2-15.7); Immature Grans % 0.2; Lymphocytes % 46.5; MCH 27.4 pg (27.0-33.0); MCHC 29.4 % (32.0-36.0); MCV 93.2 fL (80-95); MPV 11.3 fL (8.0-11.0); Monocytes % 8.6; Neutrophils % 39.9; Nucleated RBC 0 %; Platelet Count 186 10^3/uL (130-400); RBC 4.09 10^6/uL (3.93-5.22); RDW 15.2 % (11.7-14.6); RDW-SD 52.4 fL; WBC 4.75 10^3/uL (4.4-10.8)
[2021-10-25 16:54] LABS: Iron 47 ug/dL (50-170)
[2021-10-25 17:18] LABS: VALPROIC ACID < 3 ug/mL
[2021-10-25 17:27] LABS: ALT 36 U/L (14-59); AST 49 U/L (15-37); Albumin 3.4 g/dL (3.4-5.0); Alkaline Phosphatase 73 U/L (46-116); Anion Gap 10.3 mmol/L (3-11); BUN 18 mg/dL (7-18); Bilirubin, Total 0.2 mg/dL (0.2-1.0); CO2 26.7 mmol/L (21.0-32.0); CREATININE 0.7 mg/dL (0.55-1.02); Calcium 9.4 mg/dL (8.5-10.1); Chloride 104 mmol/L (98-107); Ferritin 28 ng/mL (8-252); Folate 6.7 ng/mL (8.6-20.0); Glucose 180 mg/dL (74-106); Magnesium 1.2 mg/dL (1.8-2.4); Potassium 4.2 mmol/L (3.5-5.1); Sodium 141 mmol/L (136-145); TSH (W/Ref FT4) 0.64 uIU/mL (0.36-3.74); Vitamin B12 246 pg/mL (193-986)
[2021-10-25 17:31] LABS: Hemoglobin A1C 7.8 % (<5.7)
[2021-10-26 13:55] LABS: Lamotrigine 1.3 mcg/mL (2.5 - 15.0)
[2021-10-27 05:09] LABS: Vitamin D 25 Total 27.9 ng/mL (30-100)
== END 2021-10-25 16:06 | disposition home or self-care (01) ==
LOC: LBN 16:05
PROVIDERS: PCP Family Medicine; Visit Provider Nurse Practitioner Gerontology
DX: E11.59 Type 2 diabetes mellitus with other circulatory complications (principal); E03.9 Hypothyroidism, unspecified; K73.8 Other chronic hepatitis, not elsewhere classified; F60.1 Schizoid personality disorder
CPT/HCPCS: 80053; 80175; 82306; 80164; 82607; 82728; 82746; 83036; 83540; 83735; 84443; 85025

== ENCOUNTER 2021-11-22 15:41 | Outpatient (REF) | payer MEDICAID, SELFPAY ==
[2021-11-22 16:44] LABS: Magnesium 1.8 mg/dL (1.8-2.4)
== END 2021-11-22 15:42 | disposition home or self-care (01) ==
LOC: LBN 15:41
PROVIDERS: PCP Family Medicine; Visit Provider Nurse Practitioner Gerontology
DX: E83.42 Hypomagnesemia (principal); E27.40 Unspecified adrenocortical insufficiency; F34.1 Dysthymic disorder
CPT/HCPCS: 83735

== ENCOUNTER → 2022-03-17 00:33 | Outpatient (CLI) | payer MEDICAID, SELFPAY ==
--- OUTSIDE RECORDS SUMMARY | 2022-03-17 00:35 | XMS_ITS | Encounter Summary ---
:1960 Author Organization [facility] Address [address] [place] [address] Care Team Providers Name Role Phone Pina Taylor MD Primary Care Provider Reason for Referral Radiology Services (Routine/Next Available) - Authorization Not Required Specialty Diagnoses / Procedures Referred By Contact Refer red To Contact Diagnoses Nephrolithiasis Reji Foster, Procedures US RENAL/BLADDER COMPLETE [address] [place] [phone] Referral ID Status Reason Start Expiration Visits Visits Date Date Requested Authorized [id number] Authorization Not 05/31/2021 1 1 Required Reason for Visit Radiology Services (Routine/Next Available) - Authorization Not Required Specialty Diagnoses / Procedures Referred By Contact Refer red To Contact Diagnoses Nephrolithiasis Reji Foster, Procedures US RENAL/BLADDER COMPLETE [address] [place] [phone] Referral ID Status Reason Start Expiration Visits Visits Date Date Requested Authorized [id number] Authorization Not 05/31/2021 1 1 Required Encounter Details Date Type Department Care Team Description 07/15/2021 Hospital Encounter [facility] Radiology US - Nephrolithiasis [address] [address] Social History Tobacco Use Types Packs/Day Years Used Date Former Smoker Cigarettes 0.5 40 Quit: 11/30/19 11 Smokeless Tobacco: Never Used Alcohol Use Standard Drinks/Week Comments No 0 (1 standard drink = 0.6 oz pure alcoho l) History of EtOH abuse Alcohol Habits Answer Date Recorded How often do you have a drink containing alcohol? Not asked How many drinks containing alcohol do you have on Not asked a typical day when you are drinking? How often do you have six or more drinks on one Not asked occasion? Comment: History of EtOH abuse 11/09/2014 Sex Assigned at Date Recorded Not on file documented as of this encounter Functional Status Functional Status Response Date of Assessment Are you deaf or do you have serious difficulty hearing? No 05/19/2021 Are you blind or do you have serious difficulty seeing, No 05/19/2021 even when wearing glasses? Do you have serious difficulty walking or climbing Yes 05/19/2021 stairs? (5 years old or older) Do you have difficulty dressing or bathing? (5 years old Yes 05/19/2021 or older) Because of a physical, mental, or emotional condition, do Ye s 05/19/2021 you have difficulty doing errands alone such as visiting a doctor's office or shopping? (15 years old or older) Cognitive Status Response Date of Assessment Because of a physical, mental, or emotional condition, do Ye s 05/19/2021 you have serious difficulty concentrating, remembering, or making decisions? (5 years old or older) documented as of this encounter Medications at Time of Discharge Medication Sig Dispensed Refills Start Date End Date acetaminophen (TYLENOL) 650 Take 650 mg by 0 mg CR tablet mouth daily. aspirin chewable 81 mg Take 81 mg by mouth 0 tablet daily. buPROPion (WELLBUTRIN SR) Take 450 mg by 0 150 mg SR tablet mouth daily. carbidopa-levodopa (SINEMET) Take 1 Tab by mouth 0 25-100 mg per tablet 4 times daily diclofenac (VOLTAREN) 50 mg Take 1 Tablet by 10 Tablet 0 EC tablet mouth 2 times daily as needed for Pain. docusate sodium (COLACE) 100 Take 1 capsule by 0 12/13/2018 mg capsule mouth 2 times daily. lactase (LACTAID FAST ACT) Take by mouth. 0 9,000 unit tablet Lamotrigine 50 mg tablet Take 50 mg by mouth 0 extended release 24hr daily. levothyroxine (SYNTHROID) Take 125 mcg by 0 125 mcg tablet mouth daily. magnesium chloride (MAG 64 Take by mouth 0 ORAL) daily. metFORMIN (GLUCOPHAGE) 500 Take 500 mg by 0 mg tablet mouth 2 times daily. mirtazapine (REMERON) 15 mg Take 15 mg by mouth 0 tablet at bedtime. Multivitamins with Minerals Take 1 Tab by mouth 0 tablet daily phenazopyridine (PYRIDIUM) Take 1 Tablet by 10 Tablet 0 02/2021 200 mg tablet mouth 3 times daily as needed for Pain. polyethylene glycol 3350 Take 17 g by mouth 0 (MIRALAX) 17 gram packet daily. QUEtiapine (SEROQUEL) 100 mg Take 100 mg by 0 tablet mouth 3 times daily. traZODone (DESYREL) 50 mg Take 25 mg by mouth 0 tablet 2 times daily. documented as of this encounter Discharge Disposition Disposition Code Departure Means Destination Home or Self Care documented in this encounter Plan of Treatment Upcoming Encounters Date Type Specialty Care Team Description 06/13/2022 Appointment Radiology 06/13/2022 Office Visit Urology Reji Foster MD [address] [facility], [facility], [address] [place], [place] [address] (Wo rk) documented as of this encounter Procedures Procedure Name Priority Date/Time Associated Diagnosis Comme nts US RENAL/BLADDER Routine 07/15/2021 13:20 Nephrolithiasis Resu lts for this COMPLETE EDT procedure are i n the results section. documented in this encounter Results US RENAL/BLADDER COMPLETE (07/15/2021 13:20 EDT) Anatomical Region Laterality Modality Abdomen, Body Ultrasound Specimen Impressions [facility] RADIOLOGY [facility] - 07/15/2021 16:24 EDT 1. ??No hydronephrosis bilaterally. 2. ??Nonshadowing echogenic foci in the right kidney may represent nonobstructing renal calculi or renal sinus fat. 3. ??Hepatic steatosis. I have personally reviewed the images an d the above interpretation and agree with the findings. Narrative [facility] RADIOLOGY [facility] - 07/15/2021 16:24 EDT US RENAL/BLADDER COMPLETE ??07/15/2021 1:00 PM SIGNS AND SYMPTOMS/COMMENTS: post ureter osocpy COMPARISON: CT renal stone 04/29/2021 and right upper quadrant ultrasound 03/30/2020 TECHNIQUE: Grayscale and Doppler ultraso und evaluation of the kidneys and bladder was performed. FINDINGS: RIGHT KIDNEY: The right kidney measures 10.9 cm in length. There are several nonshadowing echogenic foci identified in the right kidney which could represent nonobstructing renal calculi or echogenic sinus fat. LEFT KIDNEY: The left kidney measures 11 .6 cm in length. No hydronephrosis or shadowing calculus. URINARY BLADDER: Bladder is decompressed , measuring 1.3 x 1.3 x 4 for a total volume of 3.7 ml. No focal bladder abnormalities identified. Ureteral jets are not seen. OTHER: Hepatic parenchyma is diffusely h yperechoic relative to the right renal cortex. Procedure Note Rashmi Garcia MD - 07/15/2021 US RENAL/BLADDER COMPLETE 07/15/2021 1:0 0 PM SIGNS AND SYMPTOMS/COMMENTS: post ureter osocpy COMPARISON: CT renal stone 04/29/2021 and right upper quadrant ultrasound 03/30/2020 TECHNIQUE: Grayscale and Doppler ultraso und evaluation of the kidneys and bladder was performed. FINDINGS: RIGHT KIDNEY: The right kidney measures 10.9 cm in length. There are several nonshadowing echogenic foci identified in the right kidney which could represent nonobstructing renal calculi or echogenic sinus fat. LEFT KIDNEY: The left kidney measures 11 .6 cm in length. No hydronephrosis or shadowing calculus. URINARY BLADDER: Bladder is decompressed , measuring 1.3 x 1.3 x 4 for a total volume of 3.7 ml. No focal bladder abnormalities identified. Ureteral jets are not seen. OTHER: Hepatic parenchyma is diffusely h yperechoic relative to the right renal cortex. IMPRESSION 1. No hydronephrosis bilaterally. 2. Nonshadowing echogenic foci in the ri ght kidney may represent nonobstructing renal calculi or renal sinus fat. 3. Hepatic steatosis. I have personally reviewed the images an d the above interpretation and agree with the findings. Performing Organization Address City/State/ZIP Code Phon e Number [facility] documented in this encounter Visit Diagnoses Diagnosis Nephrolithiasis Calculus of kidney documented in this encounter Additional Health Concerns Infection Onset Date Last Indicated Resolved Time MRSAComment: IP note: risk factors - DM, impaired mobility, senior living resident 02/25/2015 02/25/2015 Pos nares 02/25/2015 Neg nares 11/02/18 Neg nares 12/13/18 N [place] 12/13/18 VREComment: IP note: 05/19/2021 05/19/2021 11/19/2021 22:15 EST Pos urine 05/12/21 Pos kidney fluid 05/19/21 Tamara Castro RN 05/24/21 documented as of this encounter Care Teams Tailor Apprentice Relationship Specialty Start Date End Date Pina Taylor MD PCP - General 04/21/21 10/03/21 [address] [place] [phone] documented as of this encounter
--- OUTSIDE RECORDS SUMMARY | 2022-03-17 00:35 | XMS_ITS | Encounter Summary ---
:1960 Author Organization [facility] Address [address] [place] [address] Care Team Providers Name Role Phone Maricel Deshpande APRN Primary Care Provider [phone] Reason for Visit Radiology Services (Routine/Next Available) - Authorization Not Required Specialty Diagnoses / Procedures Referred By Contact Refer red To Contact Diagnoses Nephrolithiasis Reji Foster, [facility] Procedures CT RENAL STONE [address] [facility], [address] [place] [phone] Referral ID Status Reason Start Expiration Visits Visits Date Date Requested Authorized [id number] Authorization Not 1 1 Required 1 Encounter Details Date Type Department Care Team Description 12/09/2021 Hospital Encounter Medical [place] [address] Social History Tobacco Use Types Packs/Day Years [...] Office Visit Urology Reji Foster MD [address] [facility], [facility], [address] [place], [place] [address] (Wo rk) documented as of this encounter Procedures Procedure Name Priority Date/Time Associated Diagnosis Comme nts CT RENAL STONE Routine 12/09/2021 10:25 EDT Nephrolithiasis Re sults for this procedure are i n the results section . documented in this encounter Results CT RENAL STONE (12/09/2021 10:25 EDT) Anatomical Region Laterality Modality Body, Abdomen Computed Tomography Specimen Impressions [facility] - 12/09/2021 11:04 EDT 1. Decreased nonobstructing calculi in the right kidney, renal pelvis calculi are no longer present. Interval removal of the right ureteral stent, no hydronephrosis. 2. Large stool burden within the rectum. 3. Unchanged appearance of the enlarged uterus, likely fibroid in nature. 4. Small amount of subcutaneous tissue b etween the distal sacrum/coccyx and the skin, correlate with exam for pressure ulcer. 5. Scattered colonic diverticulosis. 6. Severe degenerative changes at L5-S1. I have personally reviewed the images an d the above interpretation and agree with the findings. Narrative [facility] - 12/09/2021 11:[address] RENAL STONE ??12/09/2021 11:00 AM Signs and Symptoms/Comments: ?? Urinary tract stone, symptomatic/complic ated Technique: Axial CT images obtained from abdomen im mediately superior to level of kidneys through the pelvis without administration of contrast of any kind. Sagittal and coronal reformats generated. Comparison: CT abdomen pelvis 04/29/2021 Findings: Kidneys and ureters: Renal parenchymal s carring bilaterally. On the right there are punctate nonobstructing calculi, new calculus 3 mm calculus in the superior pole of the right kidney, renal pelvis cheyanne culi are no longer present. Interval rem oval of right nephroureteral stent. No hydronephrosis or hydroureter on the right now calculi within the urinary collecting system on the left, no hydronephrosis or hydroureter.. Bladder: The bladder is nondistended, th ere is a small amount of antidependent air, likely secondary to instrumentation. Uterus, adnexa: Anteverted uterus, enlar ged but unchanged, no focal lesions. No adnexal masses. Included lung bases: Bronchiectasis and linear scarring and atelectasis in the lung bases Unenhanced liver and gallbladder, as far as included: Hepatic steatosis. No contour deforming hepatic lesions. The gallbladder and biliary tree are unremarkable. Unenhanced spleen, pancreas, adrenal gla nds: Calcified granulomas within the spleen. Partial fatty replacement of the pancreas, no visible lesions. The adrenals are unremarkable. Bowel: Large stool burden within the rec todd is mild wall thickening. No evidence of obstruction or acute inflammation. Peritoneal cavity: No free fluid or free air. Focus of calcification in the right mid abdomen, nonspecific. Abdominal wall: No bowel containing flor[place] ia. Lymphovascular: Scattered atherosclerosi s, no pathologically enlarged nodes. Musculoskeletal: Severe degenerative elly nges at L5-S1, unchanged. The bones are diffusely demineralized. Thin amount of subcutaneous tissue between the distal sacrum/coccyx and the skin, correlate for pressure ulcer. Esthetician/Skin Therapist: No additional findings. Procedure Note Eugenia De Souza MD - 12/09/2021 CT RENAL STONE 12/09/2021 11:00 AM Signs and Symptoms/Comments: Urinary tract stone, symptomatic/complic ated Technique: Axial CT images obtained from abdomen im mediately superior to level of kidneys through the pelvis without administration of contrast of any kind. Sagittal and coronal reformats generated. Comparison: CT abdomen pelvis 04/29/2021 Findings: Kidneys and ureters: Renal parenchymal s carring bilaterally. On the right there are punctate nonobstructing calculi, new calculus 3 mm calculus in the superior pole of the right kidney, renal pelvis calculi are no longer present. Interval removal of right nephr oureteral stent. No hydronephrosis or hydroureter on the right now calculi within the urinary collecting system on the left, no hydronephrosis or hydroureter.. Bladder: The bladder is nondistended, th ere is a small amount of antidependent air, likely secondary to instrumentation. Uterus, adnexa: Anteverted uterus, enlar ged but unchanged, no focal lesions. No adnexal masses. Included lung bases: Bronchiectasis and linear scarring and atelectasis in the lung bases Unenhanced liver and gallbladder, as far as included: Hepatic steatosis. No contour deforming hepatic lesions. The gallbladder and biliary tree are unremarkable. Unenhanced spleen, pancreas, adrenal gla nds: Calcified granulomas within the spleen. Partial fatty replacement of the pancreas, no visible lesions. The adrenals are unremarkable. Bowel: Large stool burden within the rec todd is mild wall thickening. No evidence of obstruction or acute inflammation. Peritoneal cavity: No free fluid or free air. Focus of calcification in the right mid abdomen, nonspecific. Abdominal wall: No bowel containing flor[place] ia. Lymphovascular: Scattered atherosclerosi s, no pathologically enlarged nodes. Musculoskeletal: Severe degenerative elly nges at L5-S1, unchanged. The bones are diffusely demineralized. Thin amount of subcutaneous tissue between the distal sacrum/coccyx and the skin, correlate for pressure ulcer. Esthetician/Skin Therapist: No additional findings. IMPRESSION 1. Decreased nonobstructing calculi in t he right kidney, renal pelvis calculi are no longer present. Interval removal of the right ureteral stent, no hydronephrosis. 2. Large stool burden within the rectum. 3. Unchanged appearance of the enlarged uterus, likely fibroid in nature. 4. Small amount of subcutaneous tissue b etween the distal sacrum/coccyx and the skin, correlate with exam for pressure ulcer. 5. Scattered colonic diverticulosis. 6. Severe degenerative changes at L5-S1. I have personally reviewed the images an d the above interpretation and agree with the findings. Performing Organization Address City/State/ZIP Code Phon e Number [facility] documented in this encounter Visit Diagnoses Not on filedocumented in this encounter Additional Health Concerns Infection Onset Date Last Indicated Resolved Time MRSAComment: IP note: risk factors - DM, impaired mobility, long-term resident 02/25/2015 02/25/2015 Pos nares 02/25/2015 Neg nares 11/02/18 Neg nares 12/13/18 N [place] 12/13/18 documented as of this encounter Care Teams Clean Rice Broker Relationship Specialty Start Date End Date Maricel Deshpande APRN PCP - General Geriatric Medicine 10/04/21 [facility] [address] documented as of this encounter
--- OUTSIDE RECORDS SUMMARY | 2022-03-17 00:35 | XMS_ITS | Encounter Summary ---
:1960 Author Organization [facility] Address [address] [place] [address] Care Team Providers Name Role Phone Maricel Deshpande APRN Primary Care Provider [phone] Reason for Visit Reason Onset Date Comments Appointment Related 10/14/2021 Encounter Details Date Type Department Care Team Description 10/14/2021 Telephone [facility] Reji Fostre ntment Related Urology - Main Osiris Fletcher MD 111 [facility] [address] [phone] [facility] [address] [place] [address] (Wo rk) Social History Tobacco Use Types Packs/Day Years [...] or older) documented as of this encounter Miscellaneous Notes Telephone Encounter - Lesa Smith - 10/14/2021 1402 EST Spoke to Chelsy at the [facility] and offered CT vasquez on 11/09, same day as other appts but Chelsy thoughtit would be too much for patient. Patient rescheduled for appts on 12/09 documented in this encounter Plan of Treatment Upcoming Encounters Date Type Specialty Care Team Description 06/13/2022 Appointment Radiology 06/13/2022 Office Visit Urology Reji Foster MD [address] [place] [address], [facility] [address] [place], [place] [address] (Wo rk) documented as of this encounter Visit Diagnoses Not on filedocumented in this encounter Additional Health Concerns Infection Onset Date Last Indicated Resolved Time MRSAComment: IP note: risk factors - DM, impaired mobility, intermediate resident 02/25/2015 02/25/2015 Pos nares 02/25/2015 Neg nares 11/02/18 Neg nares 12/13/18 N [place] 12/13/18 VREComment: IP note: 05/19/2021 05/19/2021 11/19/2021 22:15 EST Pos urine 05/12/21 Pos kidney fluid 05/19/21 Tamara Castro RN 05/24/21 documented as of this encounter Care Teams Senior Fire Protection Engineer Relationship Specialty Start Date End Date Maricel Deshpande APRN PCP - General Geriatric Medicine 1/11/22 [facility] [place] [address] documented as of this encounter
--- OUTSIDE RECORDS SUMMARY | 2022-03-17 00:35 | XMS_ITS | Encounter Summary ---
:1960 Author Organization [facility] Address [address] [place] [address] Care Team Providers Name Role Phone Maricel Deshpande APRN Primary Care Provider [phone] Reason for Referral Radiology Services (Routine/Next Available) - Authorization Not Required Specialty Diagnoses / Procedures Referred By Contact Refer red To Contact Diagnoses Nephrolithiasis Reji Foster, [facility] Procedures US RENAL/BLADDER COMPLETE [address] [place] [address] [address] [place] [address] Referral ID Status Reason Start Expiration Visits Visits Date Date Requested Authorized [id number] Authorization Not 12/09/2021 1 1 Required Reason for Visit Reason Comments Follow-up CT Encounter Details Date Type Department Care Team Description 12/09/2021 Office Visit [facility] Reji Foster Nephr olithiasis Urology - Chandrakant Fletcher MD (Primary Dx) [address] [place] [address] (Wo rk) Social History Tobacco [...] or older) documented as of this encounter Progress Notes Reji Foster MD - 12/09/2021 1145 EDT Follow-up visit on Ginger. This is a 61-year-old with multiple medical comorbidities who underwent aright-sided percutaneous nephrolithotomy in the past. This was followed by a second look ureteroscopy for struvite stone. 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 Her main concerns are with constant urinary incontinence as well as bowel incontinence. She also reports over the past several days she has been much more tired than usual. During her stone procedures there is a large stone with exposed mesh from prior bladder surgery. Shehas seen Dr. Cortez and has follow-up with a cystogram to rule out fistula in the near future. I am seeing her today with a follow-up CT scan to check for any change in her stone burden. On review of the CT there is very minimal stone in the right kidney with no evidence of hydronephrosis and no stone on the left side. I think she is doing very well from that standpoint. I will continue to follow her and check a new ultrasound in 6 months. She will have the above visits to address herother symptoms in the near future as well. documented in this encounter Plan of Treatment Upcoming Encounters Date Type Specialty Care Team Description 06/13/2022 Appointment Radiology 06/13/2022 Office Visit Urology Reji Foster MD 111 [facility], [facility], [address] [place], [place] [address] (Wo rk) Scheduled Orders Name Type Priority Associated Diagnoses Order S chedule US RENAL/BLADDER Imaging Routine Nephrolithiasis Expected : 12/09/2021, COMPLETE Expires: 2022 documented as of this encounter Visit Diagnoses Diagnosis Nephrolithiasis - Primary Calculus of kidney documented in this encounter Additional Health Concerns Infection Onset Date Last Indicated Resolved Time MRSAComment: IP note: risk factors - DM, impaired mobility, custodial resident 02/25/2015 02/25/2015 Pos nares 02/25/2015 Neg nares 11/02/18 Neg nares 12/13/18 N Joanie 12/13/18 documented as of this encounter Care Teams Sweeper Cleaner Industrial Relationship Specialty Start Date End Date Maricel Deshpande APRN PCP - General Geriatric Medicine 10/04/[address] [place] [address] documented as of this encounter
--- OUTSIDE RECORDS SUMMARY | 2022-03-17 00:35 | XMS_ITS | Clinical Summary ---
:1960 Author Organization [facility] Address [address] [place] [address] Care Team Providers Name Role Phone Maricel Deshpande APRN Primary Care Provider [phone] Allergies Active Allergy Reactions Severity Noted Date Comments Methadone 03/31/2011 Penicillins Itching 12/09/2010 Sulfa (Sulfonamide Antibiotics) 1 Oxycodone-Acetaminophen 08/16/2011 itch ing Medications Medication Sig Dispensed Refills Start Date End Date Status levothyroxine Take 125 mcg by 0 Active (SYNTHROID) 125 mcg mouth daily. tablet Lamotrigine 50 mg Take 50 mg by 0 Active tablet extended release mouth daily. 24hr carbidopa-levodopa Take 1 Tab by 0 Active (SINEMET) 25-100 mg per mouth 4 times tablet daily Multivitamins with Take 1 Tab by 0 Active Minerals tablet mouth daily buPROPion (WELLBUTRIN Take 450 mg by 0 Active SR) 150 mg SR tablet mouth daily. traZODone (DESYREL) 50 Take 25 mg by 0 Active mg tablet mouth 2 times daily. aspirin chewable 81 mg Take 81 mg by 0 Active tablet mouth daily. docusate sodium Take 1 capsule by 0 12/13/2018 Active (COLACE) 100 mg capsule mouth 2 times daily. Additional Information Patient not taking. Reported on 04/13/2020 acetaminophen (TYLENOL) 650 mg Take 650 mg by mouth 0 Active CR tablet daily. metFORMIN (GLUCOPHAGE) 500 mg Take 500 mg by mouth 2 0 Active tablet times daily. mirtazapine (REMERON) 15 mg Take 15 mg by mouth at 0 Active tablet bedtime. magnesium chloride (MAG 64 Take by mouth daily. 0 Active ORAL) QUEtiapine (SEROQUEL) 100 mg Take 100 mg by mouth 3 0 Active tablet times daily. phenazopyridine (PYRIDIUM) 200 Take 1 Tablet by mouth 10 Tablet 0 04/29/2021 Active mg tablet 3 times daily as needed for Pain. diclofenac (VOLTAREN) 50 mg EC Take 1 Tablet by mouth 10 Tablet 0 04/29/2021 Active tablet 2 times daily as needed for Pain. lactase (LACTAID FAST ACT) Take by mouth. 0 Active 9,000 unit tablet polyethylene glycol 3350 Take 17 g by mouth 0 Active (MIRALAX) 17 gram packet daily. Active Problems Patient Care Coordination Note Formatting of this note might be differe nt from the original. PT NEEDS JOSEPH PT NEEDS 30 MINUTE APPOINTMENT FOR UROLO GY PROCEDURES PT is disabled, REG with nurse[facility]and [facility] Mon[facility] Singh 05/13/2021 14:08 Confirmed ACO status via Medicaid web tr scottie# [id number] Monique Singh 05/13/2021 11:53 Problem Noted Date Right nephrolithiasis 05/19/2021 Calculus of kidney 12/05/2018 Staghorn calculus 11/04/2018 Pneumonia due to infectious organism 11/04/2018 Insomnia 07/30/2015 SIRS (systemic inflammatory response syndrome) ([facility]) 02/25/2015 Severe sepsis 02/25/2015 Seizure disorder ([facility]) 02/25/2015 Decubitus ulcer 02/25/2015 Cholecystitis, acute 02/12/2015 History of seizures 02/12/2015 Right spastic hemiparesis ([facility]) 02/12/2015 Hypothyroidism 02/12/2015 Former smoker 03/31/2011 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 Slowly tapering off immunosuppression as the last CT angiogram showed no changes to suggest vasculitis. History of cerebral infarction 12/09/2010 Diabetes mellitus, type 2 Bipolar affective disorder ([facility]) Anxiety Resolved Problems Problem Noted Date Resolved Date MRSA pneumonia 11/04/2018 11/04/2018 Urinary tract infection without hematuria 11/01/2018 11/04/2018 Hypertensive disorder 02/12/2015 Headache 02/12/2015 Overview: ICD10 Update Auto Replacement Static encephalopathy 02/12/2015 Immunizations Name Administration Dates Next Due Covid-19 mRNA Vaccine (EXFO COVID-19) PF 0.3 ml IM 021, 09/29/2020 (12 yrs+) Influenza (split) 12/09/2010 Pneumococcal Polysaccharide (PPSV23) Vaccine 12/09/2010 (PNEUMOVAX-23) =>2YO SQ/IM Surgical History Surgery Date Site/Laterality Comments CERVICAL SPINE SURGERY LUMBAR SPINE SURGERY FOOT SURGERY WRIST SURGERY HIP SURGERY Right Patient not sure of what surgery was perf ormed CATARACT REMOVAL WITH IMPLANT 06/15/2016 Right CATARACT REMOVAL WITH IMPLANT 06/29/2016 Left Medical History Medical History Date Comments HTN (hypertension) DM (diabetes mellitus screen) Smoking Bipolar affective disorder ([facility]) ([facility]) Anxiety Headache(784.0) Lumbar disc disease Static encephalopathy Morbid obesity (HCC-CMS) ([facility]) Diabetes mellitus ([facility]) Hypothyroidism Seizures ([facility]) ([facility]) History of general anesthesia History of kidney stones percutaneous n ephrolithotomy Stroke ([facility]) ([facility]) with right hemipa resis- joseph lift, WC dependant lives in [place] Parkinsonism ([facility]) per H & P dated 04-13 drug induced Tardive dyskinesia per H & P dated 04-12 Community acquired pneumonia Edentulous Patient unable to exercise Diabetes mellitus, type 2 ([facility]) Memory deficit Peripheral neuropathy Decreased motor strength Decreased sensation Parkinson disease (HCC-CMS) ([facility]) drug i nduced Pain shoulder VRE (vancomycin-resistant Enterococci) Family History Medical History Relation Name Comments Alcohol Abuse Brother Alcohol Abuse Father Stroke Mother Alcohol Abuse Sister Kidney Disease Neg Hx Relation Name Status Comments Brother Father Mother Sister Social History Tobacco Use Types Packs/Day Years [...] Assigned at Date Recorded Not on file Last Filed Vital Signs Vital Sign Reading Time Taken Comments Blood Pressure 148/83 05/21/2021 0935 EDT Pulse 80 05/20/20212040 EDT Temperature 36.7 ??C (98.1 ??F) 05/21/2021 0932 EDT Respiratory Rate 18 05/21/2021 0932 EDT Oxygen Saturation 98% 05/21/2021 0935 EDT Inhaled Oxygen Concentration - - Weight 67.3 kg (148 lb 5.9 oz) 05/19/2021 0712 EDT Height 165.1 cm (5' 5) 05/19/2021 07 EDT Body Mass Index 24.69 05/19/2021 0712 EDT Plan of Treatment Upcoming Encounters Date Type Specialty Care Team Description 06/13/2022 Appointment Radiology 06/13/2022 Office Visit Urology Reji Foster MD [address] [facility], [facility], [facility] [address] [place], [place] [address] (Wo rk) Health Maintenance Due Date Last Done Comments Foot Exam 1960 Lung Cancer Screening 1960 Microalbumin/Creatinine Ratio 1960 Lipid Profile Screening 12/10/2011 12/09/2010 (Cholesterol) Eye Exam 07/20/2017 07/20/2016, 07/14/2016, 06/30/2016, Additional history exists Hemoglobin A1C (Ha1C) 05/01/2019 11/01/2018, 03/01/2017, 01/29/2017, Additional history exists COVID-19 Vaccine (3 - Booster for 03/19/2021 10/19/2020, Pfizer series) Hepatitis C Screen Completed 03/29/2021, 03/29/2021, 03/30/2020, Additional history exists Implants Implanted Type Area Irrigation Engineer Device Identifier Shelf Model / Expiration Serial / Date Lot Stent Ureteral 6fr X 24cm Double Pigtail Ultra Smooth Surface Inlay [place] Lubricious Coated - [id number] Stent Right: [employer] [id number] / Implanted: Qty: 1 on 05/19/2021 by Reji Berger MD at [facility] [employer] [id number] / [id number] Explanted Type Area Irrigation Engineer Device Shelf Model / Identifier Expiration Serial / Date Lot Bard Inlay [place] Ureteral Stent Stent Right: [employer]ARD 02/13/2024 [id number] / Implanted: Qty: 1 on 04/28/2021 by Reji Berger MD at [facility] [employer] 02/13/20 2 / Explanted: Qty: 1 on 05/19/2021 at [facility] [id number] Description: String off Additional Health Concerns Infection Onset Date Last Indicated MRSAComment: IP note: risk factors - DM, impaired mobility, care home resident 02/25/2015 02/25/2015 Pos nares 02/25/2015 Neg nares 11/02/18 Neg nares 12/13/18 N [place] 12/13/18 Insurance Payer Benefit Plan / Subscriber ID Effective Phone Address T ype Group Dates [place] [id number] 2021-Prese [address] [place] [facility] [id number] Ginger Barrera Personal/Family Self 1960 [address] [place] [address] Ginger Barrera Personal/Family Self 1960 [address] [place] [address] Advance Directives For more information, please contact: [phone] Documents on File Type Date Recorded Patient Associate Professor Of Criminal Justice Explanati on COLST/MOLST 05/24/2021 15:47 DNR/C OLST COLST/MOLST 05/23/2021 15:43 DNR/C OLST COLST/MOLST 12/17/2018 14:24 2018-12-13 DNR/C OLST COLST/MOLST 11/06/2018 15:06 2017-09-19 DNR/C OLST COLST/MOLST 11/06/2018 15:06 2018-10-02 DNR/C OLST COLST/MOLST 11/06/2018 15:06 2018-11-04 DNR/C OLST COLST/MOLST 03/04/2015 9:10 Full Code-dated Latest Code Status on File Code Status Date Activated Date Inactivated Comments Full Code 05/19/2021 7:37 05/19/2021 15:52 Reason for decision includes: Full code consistent with over all plan of care Who participated in the discussion? Not Discussed Full Code 04/28/2021 7:31 04/28/2021 17:44 Reason for decision includes: Full code consistent with over all plan of care Who participated in the discussion? Not Discussed Full Code 12/12/2018 19:09 12/13/2018 18:28 Reason for decision includes: Full code consistent with over all plan of care Who participated in the discussion? Not Discussed Full Code 12/05/2018 15:52 12/06/2018 18:59 Reason for decision includes: Full code consistent with over all plan of care Who participated in the discussion? Not Discussed Full Code 12/05/2018 7:55 12/05/2018 15:52 Reason for decision includes: Full code consistent with over all plan of care Who participated in the discussion? Patient Care Teams Energy Derivatives Trader Relationship Specialty Start Date End Date Maricel Deshpande APRN PCP - General Geriatric Medicine 10/04/21 [facility] [place] [place] [address]
--- OUTSIDE RECORDS SUMMARY | 2022-03-17 00:35 | XMS_ITS | Encounter Summary ---
:1960 Author Organization [facility] Address [address] [place] [address] Care Team Providers Name Role Phone Pina Taylor MD Primary Care Provider Reason for Visit Reason Onset Date Comments Appointment Related 09/26/2021 Encounter Details Date Type Department Care Team Description 09/26/2021 Telephone [facility] Gerald Cortez MD Appointment Related Pelvic Medicine and [address] [place] [address] Reconstructive Surgery - [facility] [address] [facility], Level [address] [address] [place] [address] [phone] Social History Tobacco Use Types Packs/Day Years [...] this encounter Miscellaneous Notes Telephone Encounter - Keli Love - 09/26/[address] [facility] she spoke with Cristian about this pt and needs to be seen by Dr Cortez for fistula and has kidney stones. Cancelled for today and rescheduled with Diego. documented in this encounter Plan of Treatment Upcoming Encounters Date Type Specialty Care Team Description 06/13/2022 Appointment Radiology 06/13/2022 Office Visit Urology Reji Foster MD [address] [place] [address], [facility] [address] [place], [place] [address] (Wo rk) documented as of this encounter Visit Diagnoses Not on filedocumented in this encounter Additional Health Concerns Infection Onset Date Last Indicated Resolved Time MRSAComment: IP note: risk factors - DM, impaired mobility, longterm resident 02/25/2015 02/25/2015 Pos nares 02/25/2015 Neg nares 11/02/18 Neg nares 12/13/18 N [place] 12/13/18 VREComment: IP note: 05/19/2021 05/19/2021 11/19/2021 22:15 EST Pos urine 05/12/21 Pos kidney fluid 05/19/21 Tamara Castro RN 05/24/21 documented as of this encounter Care Teams Health Records Technology Teacher Relationship Specialty Start Date End Date Pina Taylor MD PCP - General 04/21/21 10/03/21 [address] [place] [address] documented as of this encounter
--- OUTSIDE RECORDS SUMMARY | 2022-03-17 00:35 | XMS_ITS | Encounter Summary ---
:1960 Author Organization [facility] Address [address] [place] [address] Care Team Providers Name Role Phone Maricel Deshpande APRN Primary Care Provider [phone] Reason for Referral Radiology Services (Routine/Next Available) - Authorization Not Required Specialty Diagnoses / Procedures Referred By Contact Refer red To Contact Diagnoses Urinary incontinence, unspecified type Ester Cortez MD [facility] Procedures FL CYSTOGRAM [address] [facility] [address] [place] [address] Referral ID Status Reason Start Expiration Visits Visits Date Date Requested Authorized [id number] Authorization Not 11/09/2021 1 1 Required Reason for Visit Reason Comments New Patient Visit Fistula Consult (See Order Priority) - Authorization Not Required Specialty Diagnoses / Procedures Referred By Contact Refer red To Contact Pelvic Medicine Diagnoses Urethral stone Reji Foster Urszula, MD Michael, MD 2 [facility] [address] [facility] [address] [place] [phone] Fax: Referral ID Status Reason Start Expiration Visits Visits Date Date Requested Authorized [id number] Authorization Specialty 06/01/2021 1 1 Not Required Services Required Encounter Details Date Type Department Care Team Description 11/09/2021 Office Visit [facility] Gerald Cortez MD Urinary incontinence, Urology - [facility] [address] unspecified type [address] (Primary Dx) [address] [place] [address] Pavilion, [place] [address] (Wo rk) Social History Tobacco [...] documented as of this encounter Progress Notes Ester Cortez MD - 11/09/2021 0945 EST Urology New Patient Visit Chief Complaint: Chief Complaint Patient presents with ??? New Patient Visit Fistula Reason for Consult: Urology was asked to see Ginger in consultation at the request of Maricel Deshpande. HPI: Ginger is a 61 y.o. female with urinary incontinence s/p some procedure in [facility] with Dr Mays and a mesh sling with a stone in the vaginal vault noted at the time of her last URS for kidney stones with removal at the time by Dr Marcos and obvious evidence of vaginal mesh erosion. Therewas no evidence on cysto of fistula or mesh erosion but given her incontinence she was referred tome for eval. She notes that she has a hx of 3 strokes and is bed bound with inability to use her right side UE and LE . They do not toilet her. She has insensate BMs and urination into a pad/depends. Seems like maybe 3-4 pads a day and a depends overnight but has sometimes been overflowing the depends. She does not sense any urgency to void or to stool and only knows once it has happened. No hematuria. Does have UTIs - cannot tell me when the last one was. Has not had a BM in 3 days - takes lots of laxatives - feels that her belly is distended and having abdominal and lower back pain. Notes that some of these are her UTI symptoms. Patient Active Problem List Diagnosis ??? Diabetes mellitus, type 2 ([facility]) ??? Bipolar affective disorder ([facility]) ([facility]) ??? Anxiety ??? History of cerebral infarction ??? Primary central nervous system vasculitis ([facility]) ([facility]) ??? Former smoker ??? Cholecystitis, acute ??? History of seizures ??? Right spastic hemiparesis ([facility]) ([facility]) ??? Hypothyroidism ??? SIRS (systemic inflammatory response syndrome) ([facility]) ([facility]) ??? Severe sepsis ??? Seizure disorder (HCC-CMS) ([facility]) ??? Decubitus ulcer ??? Insomnia ??? Staghorn calculus ??? Pneumonia due to infectious organism ??? Calculus of kidney ??? Right nephrolithiasis PMH PSH Past Medical History: Diagnosis Date ??? Anxiety ??? Bipolar affective disorder ([facility]) ([facility]) ??? Community acquired pneumonia ??? Decreased motor strength ??? Decreased sensation ??? Diabetes mellitus (HCC) ??? Diabetes mellitus, type 2 (HCC) ??? DM (diabetes mellitus screen) ??? Edentulous ??? Headache(784.0) ??? History of general anesthesia ??? History of kidney stones percutaneous nephrolithotomy ??? HTN (hypertension) ??? Hypothyroidism ??? Lumbar disc disease ??? Memory deficit ??? Morbid obesity (HCC-CMS) (HCC) ??? Pain shoulder ??? Parkinson disease (HCC-CMS) (HCC) drug induced ??? Parkinsonism (HCC) per H & P dated 04-13-21 drug induced ??? Patient unable to exercise ??? Peripheral neuropathy ??? Seizures (HCC-CMS) (HCC) ??? Smoking ??? Static encephalopathy ??? Stroke (HCC-CMS) (HCC) with right hemiparesis- maida lift, WC dependant lives in SNF ??? Tardive dyskinesia per H & P dated 04-12-21 ??? VRE (vancomycin-resistant Enterococci) Past Surgical History: Procedure Laterality Date ??? CATARACT REMOVAL WITH IMPLANT Right 06/15/2016 ??? CATARACT REMOVAL WITH IMPLANT Left 06/29/2016 ??? CERVICAL SPINE SURGERY ??? FOOT SURGERY ??? HIP SURGERY Right Patient not sure of what surgery was performed ??? LUMBAR SPINE SURGERY ??? WRIST SURGERY Social History Family History Social History Socioeconomic History ??? Marital status: Spouse name: Not on file ??? Number of children: Not on file ??? Years of education: Not on file ??? Highest education level: Not on file Occupational History ??? Not on file Tobacco Use ??? Smoking status: Former Smoker Packs/day: 0.50 Years: 40.00 Pack years: 20.00 Types: Cigarettes Quit date: 11/29/2010 Years since quittin.9 ??? Smokeless tobacco: Never Used Substance and Sexual Activity ??? Alcohol use: No Alcohol/week: 0.0 standard drinks Comment: History of EtOH abuse ??? Drug use: No ??? Sexual activity: Not on file Other Topics Concern ??? Not on file Social History Narrative ??? Not on file Social Determinants of Health Financial Resource Strain: Not on file Food Insecurity: Not on file Transportation Needs: Not on file Physical Activity: Not on file Stress: Not on file Social Connections: Not on file No pertinent FHx Medications Current Outpatient Medications: ??? acetaminophen (TYLENOL) 650 mg CR tablet, Take 650 mg by mouth daily., Disp: , Rfl: ??? aspirin chewable 81 mg tablet, Take 81 mg by mouth daily., Disp: , Rfl: ??? buPROPion (WELLBUTRIN SR) 150 mg SR tablet, Take 450 mg by mouth daily. , Disp: , Rfl: ??? carbidopa-levodopa (SINEMET) 25-100 mg per tablet, Take 1 Tab by mouth 4 times daily, Disp: , Rfl: ??? diclofenac (VOLTAREN) 50 mg EC tablet, Take 1 Tablet by mouth 2 times daily as needed for Pain.,Disp: 10 Tablet, Rfl: 0 ??? docusate sodium (COLACE) 100 mg capsule, Take 1 capsule by mouth 2 times daily. (Patient not taking: Reported on 04/13/2020), Disp: , Rfl: ??? lactase (LACTAID FAST ACT) 9,000 unit tablet, Take by mouth., Disp: , Rfl: ??? Lamotrigine 50 mg tablet extended release 24hr, Take 50 mg by mouth daily. , Disp: , Rfl: ??? levothyroxine (SYNTHROID) 125 mcg tablet, Take 125 mcg by mouth daily. , Disp: , Rfl: ??? magnesium chloride (MAG 64 ORAL), Take by mouth daily., Disp: , Rfl: ??? metFORMIN (GLUCOPHAGE) 500 mg tablet, Take 500 mg by mouth 2 times daily., Disp: , Rfl: ??? mirtazapine (REMERON) 15 mg tablet, Take 15 mg by mouth at bedtime., Disp: , Rfl: ??? Multivitamins with Minerals tablet, Take 1 Tab by mouth daily, Disp: , Rfl: ??? phenazopyridine (PYRIDIUM) 200 mg tablet, Take 1 Tablet by mouth 3 times daily as needed for Pain., Disp: 10 Tablet, Rfl: 0 ??? polyethylene glycol 3350 (MIRALAX) 17 gram packet, Take 17 g by mouth daily. (Patient not taking: Reported on 05/19/2021), Disp: , Rfl: ??? QUEtiapine (SEROQUEL) 100 mg tablet, Take 100 mg by mouth 3 times daily., Disp: , Rfl: ??? traZODone (DESYREL) 50 mg tablet, Take 25 mg by mouth 2 times daily. , Disp: , Rfl: Allergies Allergies Allergen Reactions ??? Methadone ??? Penicillins Itching ??? Sulfa (Sulfonamide Antibiotics) ??? Tylox [Oxycodone-Acetaminophen] itching Review of Systems: A 10 point ROS was negative unless listed as positive in the HPI Objective/Physical Exam: Vital Signs: There were no vitals taken for this visit. Exam: Gen: Alert, in no distress, strapped to a stretcher. Oropharynx: Lips normal Head: Atraumatic Pulm: Normal effort, unlabored ABd: soft, distended, tympanic, nontender. Genital: suprapubic incision scar, palpable mesh on brief digital vaginal exam. no CVA tenderness Musculoskeletal: contractured right hand, mobile left hand and foot, no ability to move right leg. Skin: Skin warm and dry Psych: Mood and affect appropriate Lab Results Component Value Date/Time HGB 10.4 (L) 05/21/2021 04:26 CREATININE 0.47 (L) 05/21/2021 04:26 CREATININE 0.55 05/20/2021 04:24 CREATININE 0.56 04/29/2021 02:47 PVR: 191cc -random scan Patient unable to void for sample due to insensate incontinence. Data Review: NA Assessment/Plan 1. Urinary incontinence, unspecified type 61 yo female with a hx of some unknown bladder/JITENDRA procedures (one is a mesh sling given the erosion) and possibly some other procedure as well as hx of CVA with urinary incontinence. It seems as though for years the patient was managed with a olzada (records from 2010 and 2012, CT 2014) and it is unclear when that was d/c'd. It is unclear if she is contantly leakaing as she does not have sensation ofthe need to urinate - this could be from a VVF or it could be post- stroke. She does have quite a bitin her bladder today and I worry that this is uncontrolled urge incontinence and her UTIs are from incomplete emptying. Old records also show that she was on ditropan at one point while at the [facility] (care everywhere and old scanned records) If this is not a fistula, we could always try some medication to help her control her urine but if she cannot be toileted when she has to void, I am not sure that her endpoint of leakage and requiring pads will change. If this is a fistula, I am not sure that anything will change and she may continue to have incontinence if there is DO or JITENDRA or both. In terms of the vaginal mesh exposure, will discuss with urogyn about excision - will likely help toensure that we do not create a fistula with excision as it is suburethral. She notes that Dr Mays in [facility] did a surgery on her 7 years ago - have no records of this and cannot find a Dr Mays in [place]. She does not know when the sling was placed. She does have a pfannensteil incision scar but I am not sure how to find these old records. Fluoro cystogram to eval for fistula. F/u after fluoro cystogram for exam and cysto in the office with me and Dr Colby to eval the meshand discuss whether it is worth excising. Ester Cortez MD This note has been prepared with voice recognition software. Please excuse tin pourer errors. documented in this encounter Plan of Treatment Upcoming Encounters Date Type Specialty Care Team Description 06/13/2022 Appointment Radiology 06/13/2022 Office Visit Urology Reji Foster MD [address] [facility], [facility], [address] [place] [address] (Wo rk) documented as of this encounter Procedures Procedure Name Priority Date/Time Associated Diagnosis Comme nts UROLOGY BLADDER Routine 11/09/2021 10:15 Urinary Results for this SCAN EST incontinence, procedure are in unspecified type the results section. documented in this encounter Results FL CYSTOGRAM (12/09/2021 9:59 EDT) Anatomical Region Laterality Modality Body Radio Fluoroscopy Specimen Impressions [facility] - 12/09/2021 10:54 EDT 1. No evidence of vesicovaginal fistula. 2. 150cc of contrast injected before the patient became incontinent. I have personally reviewed the images an d the above interpretation and agree with the findings. Narrative [facility] - 12/09/2021 10:54 EDT FL CYSTOGRAM ??12/09/2021 9:00 AM Signs and Symptoms/Comments: ?? Urinary incontinence. Assess for vesicov aginal fistula. Comparison: Renal/bladder ultrasound 07/[place]/2021, [facility] [place] [place], most recently 04/29/2021 Technique/Findings: [employer] Member KUB film of the abdomen is nonspec ific. There are vascular calcifications. 150cc of hypaque were instilled into the patient's bladder through a Lozada catheter. No evidence of leak was seen from the bl adder. No filling defects are identified in the bladder. No reflux was noted into the ureters wit h the caveat that the bladder was not fully distended. Approximately 150 cc of contrast were in still before the patient reached a steady state bladder volume and began involuntarily voiding. Dr. Jama was present for the proced ure. Skin kayli, soft tissue air and joint space air is seen. Hardware appears intact. Procedure Note Mario Mcneil MD - 12/09/2021 FL CYSTOGRAM 12/09/2021 9:00 AM Signs and Symptoms/Comments: Urinary incontinence. Assess for vesicov aginal fistula. Comparison: Renal/bladder ultrasound 07/15/2021, [facility] [place], most recently 04/29/2021 Technique/Findings: [employer] Member KUB film of the abdomen is nonspec ific. There are vascular calcifications. 150cc of hypaque were instilled into the patient's bladder through a Lozada catheter. No evidence of leak was seen from the bl adder. No filling defects are identified in the bladder. No reflux was noted into the ureters wit h the caveat that the bladder was not fully distended. Approximately 150 cc of contrast were in still before the patient reached a steady state bladder volume and began involuntarily voiding. Dr. Jama was present for the proced ure. Skin kayli, soft tissue air and joint space air is seen. Hardware appears intact. IMPRESSION 1. No evidence of vesicovaginal fistula. 2. 150cc of contrast injected before the patient became incontinent. I have personally reviewed the images an d the above interpretation and agree with the findings. Performing Organization Address City/State/ZIP Code Phon e Number [facility] UROLOGY BLADDER SCAN (11/09/2021 10:15 EST) Pathologist Sig nature Bladder Scan 121ml [facility] Specimen Urine Performing Organization Address City/State/ZIP Code Phon e Number [facility] documented in this encounter Visit Diagnoses Diagnosis Urinary incontinence, unspecified type - Primary Urinary incontinence, unspecified type documented in this encounter Additional Health Concerns Infection Onset Date Last Indicated Resolved Time MRSAComment: IP note: risk factors - DM, impaired mobility, pen[facility]iary resident 02/25/2015 02/25/2015 Pos nares 02/25/2015 Neg nares 11/02/18 Neg nares 12/13/18 N [place] 12/13/18 VREComment: IP note: 05/19/2021 05/19/2021 11/19/2021 22:15 EST Pos urine 05/12/21 Pos kidney fluid 05/19/21 Tamara Castro RN 05/24/21 documented as of this encounter Care Teams Metal Window Frame Maker Relationship Specialty Start Date End Date Maricle Deshpande, FINANCIAL AID OFFICER PCP - General Geriatric Medicine 10/04/[address] [place] [address] documented as of this encounter
--- OUTSIDE RECORDS SUMMARY | 2022-03-17 00:35 | XMS_ITS | Encounter Summary ---
:1960 Author Organization [facility] Address [address] [place] [address] Care Team Providers Name Role Phone Pina Taylor MD Primary Care Provider Reason for Visit Reason Onset Date Comments Discuss Surgery 05/18/2021 Encounter Details Date Type Department Care Team Description 05/18/2021 Telephone [facility] Reji Foster Surgery Urology - [facility] Osiris Fletcher MD [address] [phone] [facility] [address] [place] [address] (Wo rk) Social History Tobacco [...] do you have serious difficulty hearing? No 12/12/2018 Are you blind or do you have serious difficulty seeing, Yes 12/12/2018 even when wearing glasses? Do you have serious difficulty walking or climbing Yes 12/12/2018 stairs? (5 years old or older) Do you have difficulty dressing or bathing? (5 years old Yes 12/12/2018 or older) Because of a physical, mental, or emotional condition, do Ye s 12/12/2018 you have difficulty doing errands alone such as visiting a doctor's office or shopping? (15 years old or older) Cognitive Status Response Date of Assessment Because of a physical, mental, or emotional condition, Yes 07/20/2016 does this person have serious difficulty concentrating, remembering, or making decisions? documented as of this encounter Miscellaneous Notes Telephone Encounter - Qian Csat - 05/18/2021 0852 EDT Spoke with the patient's nurse at [facility]. The patient was instructed to check in at 6:45 for a procedure at 8:30 on 05/19/21. You will need a bus driver supervisor. Prep for Surgery: 1) Have no solid food or liquids containing fats, including milk, after midnight before your procedure 2) On the day of your procedure, you should have only water or other clear liquids until 3 hours before the scheduled time of your procedure. documented in this encounter Plan of Treatment Upcoming Encounters Date Type Specialty Care Team Description 06/13/2022 Appointment Radiology 06/13/2022 Office Visit Urology Reji Foster MD 111 [facility], [address] [place], [place] [address] (Wo rk) documented as of this encounter Visit Diagnoses Not on filedocumented in this encounter Additional Health Concerns Infection Onset Date Last Indicated Resolved Time MRSAComment: IP note: risk factors - DM, impaired mobility, halfway resident 02/25/2015 02/25/2015 Pos nares 02/25/2015 Neg nares 11/02/18 Neg nares 12/13/18 N [place] 12/13/18 documented as of this encounter Care Teams Operations Administrator Relationship Specialty Start Date End Date Pina Taylor MD PCP - General 04/21/21 10/03/21 [address] [place] [address] documented as of this encounter
--- OUTSIDE RECORDS SUMMARY | 2022-03-17 00:35 | XMS_ITS | Encounter Summary ---
:1960 Author Organization [facility] Address [address] [place] [address] Care Team Providers Name Role Phone Pina Taylor MD Primary Care Provider Maricel Deshpande APRN Primary Care Provider [phone] Encounter Details Date Type Department Care Team Description 05/19/2021 Orders Only [facility] Reji Foster Pre-o p testing Urology - [facility] Osiris Fletcher MD 111 [facility] [address] [place], [place] [id number] [place] [address] [facility] [address] [place] [address] (Wo rk) Social History Tobacco [...] or older) documented as of this encounter Plan of Treatment Upcoming Encounters Date Type Specialty Care Team Description 06/13/2022 Appointment Radiology 06/13/2022 Office Visit Urology Reji Foster MD [address] [place] [address], [facility], [address] [place], [place] [address] (Wo rk) documented as of this encounter Visit Diagnoses Diagnosis Pre-op testing Preoperative examination, unspecified documented in this encounter Additional Health Concerns Infection Onset Date Last Indicated Resolved Time MRSAComment: IP note: risk factors - DM, impaired mobility, [facility] resident 02/25/2015 02/25/2015 Pos nares 02/25/2015 Neg nares 11/02/18 Neg nares 12/13/18 N [place] 12/13/18 VREComment: IP note: 05/19/2021 05/19/2021 11/19/2021 22:15 EST Pos urine 05/12/21 Pos kidney fluid 05/19/21 Tamara Castro RN 05/24/21 documented as of this encounter Care Teams Tailman Relationship Specialty Start Date End Date Pina Taylor MD PCP - General 04/21/21 10/03/21 [address] [place] [address] Maricel Deshpande APRN PCP - General Geriatric Medicine 10/04/[address] [place] [address] documented as of this encounter
--- OUTSIDE RECORDS SUMMARY | 2022-03-17 00:35 | XMS_ITS | Encounter Summary ---
:1960 Author Organization [facility] Address [address] [place] [address] Care Team Providers Name Role Phone Pina Taylor MD Primary Care Provider Reason for Referral Consult (See Order Priority) - Authorization Not Required Specialty Diagnoses / Procedures Referred By Contact Refer red To Contact Pelvic Medicine Diagnoses Urethral stone Flor Foster Urszula, MD Michael, MD [address] [place] [address] [address] [place] [phone] Fax: Referral ID Status Reason Start Expiration Visits Visits Date Date Requested Authorized [id number] Authorization Specialty 06/01/2021 1 1 Not Required Services Required Question Answer Reason for Request: urethral stone, mesh exposur e, ? fistula Radiology Services (Routine/Next Available) - Authorization Not Required Specialty Diagnoses / Procedures Referred By Contact Refer red To Contact Diagnoses Nephrolithiasis Flor Foster, Procedures US RENAL/BLADDER COMPLETE [address] [place] [address] [address] [place] [address] Referral ID Status Reason Start Expiration Visits Visits Date Date Requested Authorized [id number] Authorization Not 05/31/2021 1 1 Required Reason for Visit Reason Comments Cystoscopy stent removal Follow Up (Other (Specify in Question)) - Receiving Office to Obtain Authorization Specialty Diagnoses / Procedures Referred By Contact Refer red To Contact Urology Diagnoses Right nephrolithiasis Kam Yates, Ep5 Urology MD [address] [place] [address] [place] [address] Referral ID Status Reason Start Expiration Visits Visits Date Date Requested Authorized [id number] Receiving Office Specialty 1 1 to Obtain Services 1 Authorization Required Encounter Details Date Type Department Care Team Description 05/31/2021 Post-op Visit [facility] Mingo Foster MD [address] [place] [address], [address] [place] [address] Nephrolithiasis (Primary Dx); Urology - Main Scope, Cystoscopy Urethral stone [address] [address] Social History Tobacco Use Types Packs/Day Years [...] documented as of this encounter Progress Notes Flor Foster MD - 05/31/2021 1115 EDT Follow-up visit on Ginger. This is a 61-year-old female who recently underwent percutaneous nephrolithotomy followed by a second look right-sided ureteroscopy for a large right renal stone burden and history of multidrug-resistant bacteria. She also has a finding of a urethral calculus that we removedin the operating room exposing eroded mesh from prior pelvic surgery. She was consulted on with Dr. Colby in the operating room and she currently reports she is having significant urinary leakage. Plan is for outpatient consultation with Dr. Colby to address this. Ginger completed antibiotic courses per infectious disease recommendations and now is here for removal of her stent. After obtaining informed consent, she was placed in the supine position on the exam table and prepped and draped in the standard sterile fashion. The cystoscope was inserted into the urethra and followed without difficulty into the bladder. The stent was seen emanating from the ureteral orifice and grasped with a flexible grasper and removed in its entirety. She tolerated procedure well. I plan on seeing her back in 4 to 6 weeks with a postoperative ultrasound. Consultation has been placed as above with Dr. Colby. She is also experiencing watery stools and some abdominal bloating and does not appear to have a primary care physician at this time which we are going to discuss with case management and help her obtain this as well. documented in this encounter Miscellaneous Notes Addendum Note - Flor Foster MD - 05/31/2021 1115 EDT Addended by: FLOR FOSTER on: 06/01/2021 09:55 Modules accepted: Orders documented in this encounter Plan of Treatment Upcoming Encounters Date Type Specialty Care Team Description 06/13/2022 Appointment Radiology 06/13/2022 Office Visit Urology Flor Foster MD [address] [facility], [facility], [address] [place], [place] [phone] (Wo rk) Scheduled Referrals Name Type Priority Associated Order Schedule Diagnoses AMB CONS/FOLLOW Outpatient Routine/Next Urethral stone Expected: UP PELVIC Referral Available 07/01/2021 MEDICINE (Approximate), Expires: 06/01/2022 documented as of this encounter Results US RENAL/BLADDER COMPLETE (07/15/2021 13:20 EDT) Anatomical Region Laterality Modality Abdomen, Body Ultrasound Specimen Impressions [facility] - 07/15/2021 16:24 EDT 1. ??No hydronephrosis bilaterally. 2. ??Nonshadowing echogenic foci in the right kidney may represent nonobstructing renal calculi or renal sinus fat. 3. ??Hepatic steatosis. I have personally reviewed the images an d the above interpretation and agree with the findings. Narrative [facility] - 07/15/2021 16:24 EDT US RENAL/BLADDER COMPLETE [...] Organization Address City/State/ZIP Code Phon e Number [facility] documented in this encounter Visit Diagnoses Diagnosis Nephrolithiasis - Primary Calculus of kidney Urethral stone Calculus in urethra Nephrolithiasis Calculus of kidney documented in this encounter Additional Health Concerns Infection Onset Date Last Indicated Resolved Time MRSAComment: IP note: risk factors - DM, impaired mobility, skilled nursing resident 02/25/2015 02/25/2015 Pos nares 02/25/2015 Neg nares 11/02/18 Neg nares 12/13/18 N [place] 12/13/18 VREComment: IP note: 05/19/2021 05/19/2021 11/19/2021 22:15 EST Pos urine 05/12/21 Pos kidney fluid 05/19/21 Tamara Castro RN 05/24/21 documented as of this encounter Care Teams City Clerk Relationship Specialty Start Date End Date Pina Taylor MD PCP - General 04/21/21 10/03/21 [address] [place] [phone] documented as of this encounter
--- OUTSIDE RECORDS SUMMARY | 2022-03-17 00:35 | XMS_ITS | Encounter Summary ---
:1960 Author Organization [facility] Address [address] [place] [address] Care Team Providers Name Role Phone Maricel Deshpande APRN Primary Care Provider [phone] Reason for Referral Radiology Services (Routine/Next Available) - Authorization Not Required Specialty Diagnoses / Procedures Referred By Contact Refer red To Contact Diagnoses Urinary incontinence, unspecified type Ester Cortez MD [facility] Procedures [place] CYSTOGRAM [address] [address] Referral ID Status Reason Start Expiration Visits Visits Date Date Requested Authorized [id number] Authorization Not 11/09/2021 1 1 Required Reason for Visit Radiology Services (Routine/Next Available) - Authorization Not Required Specialty Diagnoses / Procedures Referred By Contact Refer red To Contact Diagnoses Urinary incontinence, unspecified type Ester Cortez MD [facility] Procedures [place] CYSTOGRAM [address] [address] Referral ID Status Reason Start Expiration Visits Visits Date Date Requested Authorized [id number] Authorization Not 11/09/2021 1 1 Required Encounter Details Date Type Department Care Team Description 12/09/2021 Hospital Encounter [facility] Urinary incontinence, Radiology Fluoroscopy [place] [address] Social History Tobacco Use Types Packs/Day Years [...] Office Visit Urology Reji Foster MD 111 [facility], [facility], [address] [place], [place] [address] (Wo rk) documented as of this encounter Procedures Procedure Name Priority Date/Time Associated Diagnosis Comme nts FL CYSTOGRAM Routine 12/09/2021 9:59 EDT Urinary incontinence, Results for this unspecified type procedure a re in the results section. documented in this encounter Results FL CYSTOGRAM (12/09/2021 9:59 EDT) Anatomical Region Laterality Modality Body Radio Fluoroscopy Specimen Impressions [facility] - 12/09/2021 10:54 EDT 1. No evidence of vesicovaginal fistula. 2. 150cc of contrast injected before the patient became incontinent. I have personally reviewed the images an d the above interpretation and agree with the findings. Narrative [facility] - 12/09/2021 10:54 EDT FL CYSTOGRAM ??12/09/2021 9:00 AM Signs and Symptoms/Comments: ?? Urinary incontinence. Assess for vesicov aginal fistula. Comparison: Renal/bladder ultrasound 07/15/2021, mul tiple abdominal CTs, most recently 04/29/2021 Technique/Findings: Benefits Consultant KUB film of the abdomen is nonspec ific. There are vascular calcifications. 150cc of hypaque were instilled into the patient's bladder through a Martinez catheter. No evidence of leak was seen [...] vesicov aginal fistula. Comparison: Renal/bladder ultrasound 07/15/2021, mul tiple abdominal CTs, most recently 04/29/2021 Technique/Findings: Benefits Consultant KUB film of the abdomen is nonspec ific. There are vascular calcifications. 150cc of hypaque were instilled into the patient's bladder through a Martinez catheter. No evidence of leak was seen [...] Organization Address City/State/ZIP Code Phon e Number [facility] documented in this encounter Visit Diagnoses Diagnosis Urinary incontinence, unspecified type documented in this encounter Administered Medications Inactive Administered Medications - up to 3 most recent administrations Medication Order MAR Action Action Date Dose Rate Site diatrizoate meglumine (HYPAQUE) 30 % Given 12/09/2021 9:35 EDT 3 00 mL solution 300 mL 300 mL, intra-catheter, Once in imaging, 1 dose, Starting on Sun12/09/21 at 0830, Until Sun12/09/21 at 0935, Routine documented in this encounter Orders Medications Ordered That Might Not Have Count Last Ord ered Date First Ordered Date Been Administered diatrizoate meglumine (HYPAQUE) 30 % 1 12/09/2021 solution 300 mL documented in this encounter Additional Health Concerns Infection Onset Date Last Indicated Resolved Time MRSAComment: IP note: risk factors - DM, impaired mobility, long term resident 02/25/2015 02/25/2015 Pos nares 02/25/2015 Neg nares 11/02/18 Neg nares 12/13/18 N [place] 12/13/18 documented as of this encounter Care Teams Case Folder Relationship Specialty Start Date End Date Maricel Deshpande APRN PCP - General Geriatric Medicine 10/04/[address] [place] [address] documented as of this encounter
--- OUTSIDE RECORDS SUMMARY | 2022-03-17 00:35 | XMS_ITS | Encounter Summary ---
:1960 Author Organization [facility] Address [address] [place] [address] Care Team Providers Name Role Phone Maricel Deshpande APRN Primary Care Provider [phone] Reason for Visit Reason Onset Date Comments Appointment Related 10/12/2021 Encounter Details Date Type Department Care Team Description 10/12/2021 Telephone [facility] Reji Foster ntment Related Urology - Main Osiris Fletcher MD 111 [facility] [address] [phone] [facility] [address] [place] [address] (Wo rk) Social History Tobacco [...] Notes Telephone Encounter - Lesa Smith - 10/12/2021 1223 EST Spoke to Chelsy, program scheduler for appts at the [facility]. Patient's roommate has Covid so we are rescheduling 10/[address] Foster to 12/09, dates and times given, pt also scheduled for NPV with Dr Cortez 11/09. We are trying to get everything scheduled on that day but unable to at this time. documented in this encounter Plan of Treatment Upcoming Encounters Date Type Specialty Care Team Description 06/13/2022 Appointment Radiology 06/13/2022 Office Visit Urology Cristian, Reji Fletcher MD 111 [facility], [facility], [address] [place], [place] [address] (Wo rk) documented as of this encounter Visit Diagnoses Not on filedocumented in this encounter Additional Health Concerns Infection Onset Date Last Indicated Resolved Time MRSAComment: IP note: risk factors - DM, impaired mobility, [facility] resident 02/25/2015 02/25/2015 Pos nares 02/25/2015 Neg nares 11/02/18 Neg nares 12/13/18 N [place] 12/13/18 VREComment: IP note: 05/19/2021 05/19/2021 11/19/2021 22:15 EST Pos urine 05/12/21 Pos kidney fluid 05/19/21 Tamara Castro RN 05/24/21 documented as of this encounter Care Teams Tube Winder Hand Relationship Specialty Start Date End Date Maricel Deshpande APRN PCP - General Geriatric Medicine 10/04/21 On license of [facility] COUNTRY [facility] [place] [address] documented as of this encounter
--- OUTSIDE RECORDS SUMMARY | 2022-03-17 00:35 | XMS_ITS | Encounter Summary ---
:1960 Author Organization [facility] Address [address] [place] [address] Care Team Providers Name Role Phone Pina Taylor MD Primary Care Provider Reason for Referral Radiology Services (Routine/Next Available) - Authorization Not Required Specialty Diagnoses / Procedures Referred By Contact Refer red To Contact Diagnoses Nephrolithiasis Reji Foster, [facility] Procedures CT RENAL STONE MD [address] [place] [address] 5 [place] [address] Referral ID Status Reason Start Expiration Visits Visits Date Date Requested Authorized [id number] Authorization Not 1 1 Required 1 Reason for Visit Reason Comments Follow-up [facility] Encounter Details Date Type Department Care Team Description 07/15/2021 Office Visit [facility] Reji Foster Nephr olithiasis Urology - Chandrakant Fletcher MD (Primary Dx) [place] [address] [place] [address] (Wo rk) Social History Tobacco [...] encounter Progress Notes Reji Foster MD - 07/15/2021 1345 EDT This is a follow-up on Ginger. This is a 61-year-old female who is required right-sided percutaneousnephrolithotomy followed by a second look ureteroscopy for large renal stone burden that was pure struvite. She has had associated multidrug-resistant bacteria. We were able to remove the majority of the stone and I am seeing her back now with an ultrasound. On review of the ultrasound did not see any hydronephrosis but they do appear to be some nonsolid-appearing areas of stone. The official report is pending. She is otherwise asymptomatic and has not hadany recent infections. She does report she has been having constant issues with urine incontinence and diarrhea. Intraoperatively she was found to have a large stone on her vaginal area and when this was removed it exposed mesh from prior bladder surgery. It is possible that she has a fistula and she is being referred to mypartner Dr. Cortez in the near future for evaluation. We are also trying to set her up with a primary care physician. From a kidney stone standpoint I would like to repeat her imaging in a few months with a CT scan to better determine what stone burden remains. I will see her back to review. documented in this encounter Plan of Treatment Upcoming Encounters Date Type Specialty Care Team Description 06/13/2022 Appointment Radiology 06/13/2022 Office Visit Urology Reij Foster MD [address] [facility], [facility], [address] [place], [place] [address] (Wo rk) documented as of this encounter Procedures Procedure Name Priority Date/Time Associated Diagnosis Comme nts CT RENAL STONE Routine 12/09/2021 10:25 EDT Nephrolithiasis Re sults for this procedure are i n the results section . documented in this encounter Results CT RENAL STONE (12/09/2021 10:25 EDT) Anatomical Region Laterality Modality Body, Abdomen Computed Tomography Specimen Impressions [facility] - 12/09/2021 11:04 EDT 1. Decreased [...] interpretation and agree with the findings. Narrative [facility] - 12/09/2021 11:[address] RENAL [...] and the skin, correlate for pressure ulcer. Rides Attendant: No additional findings. Procedure Note Eugenia De [...] and the skin, correlate for pressure ulcer. Rides Attendant: No additional findings. IMPRESSION 1. Decreased nonobstructing [...] Organization Address City/State/ZIP Code Phon e Number [facility] documented in this encounter Visit Diagnoses Diagnosis Nephrolithiasis - Primary Calculus of kidney documented in this encounter Additional Health Concerns Infection Onset Date Last Indicated Resolved Time MRSAComment: IP note: risk factors - DM, impaired mobility, snf resident 02/25/2015 02/25/2015 Pos nares 02/25/2015 Neg nares 11/02/18 Neg nares 12/13/18 N [place] 12/13/18 VREComment: IP note: 05/19/2021 05/19/2021 11/19/2021 22:15 EST Pos urine 05/12/21 Pos kidney fluid 05/19/21 Tamara Castro RN 05/24/21 documented as of this encounter Care Teams Section Gang Worker Relationship Specialty Start Date End Date Pina Taylor MD PCP - General 04/21/21 10/03/21 [address] [place] [address] documented as of this encounter
--- OUTSIDE RECORDS SUMMARY | 2022-03-17 00:35 | XMS_ITS | Encounter Summary ---
:1960 Author Organization [facility] Address [address] [place] [address] Care Team Providers Name Role Phone Pina Taylor MD Primary Care Provider Reason for Visit Auth/Cert Specialty Diagnoses / Procedures Referred By Contact Refer red To Contact Diagnoses Staghorn calculus Procedures KS CYSTO/URETERO W/LITHOTRIPSY &INDWELL STENT INSRT Cystoscopy, right ureteroscopy with laser lithotrispy, right ureteral stent exchange Referral ID Status Reason Start Date Expiration Date Visits Requ ested Visits Authorized [id number] 1 1 Encounter Details Date Type Department Care Team Description 05/19/2021 Anesthesia Event [facility] Main [place] OR Lynn Bright [address] Levels [place] [address] [place], [place] [phone] [phone] (Wo rk) Anesthesia Record Procedure Summary Procedure Name Responsible Anesthesia Start Anesthesia Stop Anesthesiologist Time Time Cystoscopy, right Lynn Bright, 05/19/21 0830 04/25 03/14 1040 ureteroscopy with laser lithotrispy, right ureteral stent exchange and removal of urethral foreign body. (Right Ureter) Events Date Time Event Comment 05/19/2021 0830 An Start The patient was re-evaluated immediately before moderate or deep sedation use, before anesthesia induction, or be fore the anesthesia procedure. 0830 An Start Data 0837 An Induction The patient was reevaluated immediately before moderate or deep sedation use and before anesthesia induction. 0851 An Intubation 0858 Anesthesia Ready 1028 An Extubation 1030 an stop data 1040 Handoff to RN I completed my h andoff to the receiving nurse during which we: 1. Johnny ntified the patient 2. Identified the responsible provider 3. Reviewed the pertinent medical history 4. Discussed the surgical course 5. Reviewed intra-o p anesthesia management and issues during anesthesi a 6. Set expectations for post-procedure p eriod 7. Allowed opportunity for questions and ac knowledgement of understanding. 1040 An Stop Name Total dexaMETHasone (DECADRON) injection 4 mg/mL (for IV dos es up to 10mg) 4 mg fentanyl citrate (PF) injection 100 mcg ketAMINE 5 mL prefilled syringe 20 mg midazolam (versed) 1 mg/mL 2 mL vial 1 mg ondansetron (PF) (ZOFRAN) injection 4 mg lidocaine 2% (PF) injection glass vial 80 mg phenylephrine pre-filled syringe 465 mcg propOFol (DIPRIVAN) injection 150 mg rocuronium 10 mg/mL vial 40 mg sugammadex 100 mg/mL 2 mL vial 150 mg ceFAZolin (ANCEF) syringe 2 g 2 g ketOROLAC injection 15 mg lactated ringers (LR) infusion 700 mL Agents Name Insp Sevoflurane Exp Sevoflurane O2 N2O Air Aux O2 flow Blood No blood administrations on file. Lines, Drains, and Airways Type Details Placement Removal Stent 05/19/21; 1007; In OR by 05/19/21 1007 by ; Ureteral right; 6 Shanthi Roque, XIOMARA Tamazight (no string); 24 cm Peripheral IV 05/19/21; 0754; 20; 1.25; B 05/19/21 0754 by 1600 by Victor Introcan; Left, Araceli Tellez RN Serw ay, Leyla, RN Posterior, Proximal; Forearm; Inserted by RN; 1; None; 3.15% Chlorhexidine with IPA; 05/21/21; 1600; Discharged; No complications documented in this encounter Social History Tobacco Use Types Packs/Day Years [...] making decisions? documented as of this encounter OR Notes Anesthesia Postprocedure Evaluation - Rinku Bunn MD - 05/19/2021 1040 EDT Patient: Ginger Barrera Vital signs were reviewed with the recovery nurse. Complete vitals history is available in the Epic flowsheets. Vitals Value Taken Time BP 114/71 05/19/21 1040 Temp 36.4 05/19/21 1040 Resp 15 05/19/21 1040 Pulse From Oximetry 79 BPM 05/19/21 1040 SpO2 95 % 05/19/21 1040 Vitals shown include unvalidated device data. Last Pain Score - Numeric Pain Level (Scale 1-10): 0 Type of Anesthesia - general Anesthesia Post Evaluation Level of consciousness: alert and oriented Temperature status: normothermia Respiratory status: airway patent and face mask Cardiovascular status: acceptable Hydration status: adequate Nausea/Vomiting: none Pain management: adequate Post-Op Assessment: patient tolerated procedure well with no complications Patient participation: able to participate Disposition: inpatient Anesthesia Complications: No apparent anesthesia complications nesthesia Procedure Notes - Rinku Bunn MD - 05/19/2021 0907 EDTAssociated Order(s): Airway Airway Date/Time: 05/19/2021 8:51 Urgency: elective Airway not difficult General Information and Staff Patient location during procedure: OR Anesthesiologist: Lynn Bright MD Resident/SUPERVISOR SCENIC ARTS: Rinku Bunn MD Performed: resident/SUPERVISOR SCENIC ARTS/AA Indications and Patient Condition Indications for airway management: anesthesia Sedation level: GA Preoxygenated: yes Patient position: sniffing Ventilation assessment: 2 - Oral airway inserted Final Airway Details Final airway type: endotracheal airway Successful airway: ETT Cuffed: yes Successful intubation technique: direct laryngoscopy Endotracheal tube insertion site: oral Blade: Audrey Blade size: #3 ETT size (mm): 6.5 Cormack-Lehane Classification: grade I - full view of glottis Placement verified by: chest auscultation, capnometry and palpation of cuff Measured from: gums ETT to gums (cm): 20 Number of attempts at approach: 1 Ventilation between attempts: none Number of other approaches attempted: 0 nesthesia Preprocedure Evaluation - Rinku Bunn MD - 05/18/2021 5504 EDT Anesthesia Preprocedure Evaluation Patient Medical History, including Anesthesia History reviewed. Chart and Nursing Notes reviewed, including NPO status and Medication History. 61 F undergoing Cystoscopy, right ureteroscopy with laser lithotrispy, right ureteral stent exchangew/ Dr Foster. PMH notable for DM2, seizures, bipolar w/ tardive dyskinesia, hemiparesis and aphasia s/p CVA 2010, parkinsonism, hypothyroid. Additional ROS/History Findings: - Patient reports episodic chest pain and chest pressure at rest. Pre-operative EKG ordered given symptoms. - Patient reports episodic dizziness and feeling like she's going to pass out Allergies Allergen Reactions ??? Methadone ??? Penicillins Itching ??? Sulfa (Sulfonamide Antibiotics) ??? Tylox [Oxycodone-Acetaminophen] itching Review of Systems Constitutional: Negative for fever. Respiratory: Negative for cough, shortness of breath and wheezing. Cardiovascular: Positive for chest pain and leg swelling. Negative for palpitations, orthopnea and PND. Gastrointestinal: Positive for abdominal pain and diarrhea. Negative for heartburn. Musculoskeletal: Negative for neck pain. Neurological: Positive for dizziness and focal weakness. Past Medical History: Diagnosis Date ??? Anxiety ??? Bipolar affective disorder (HCC-CMS) ??? Community acquired pneumonia ??? Decreased motor strength ??? Decreased sensation ??? Diabetes mellitus (HCC-CMS) ??? Diabetes mellitus, type 2 (HCC-CMS) ??? DM (diabetes mellitus screen) ??? Edentulous ??? Headache(784.0) ??? History of general anesthesia ??? History of kidney stones percutaneous nephrolithotomy ??? HTN (hypertension) ??? Hypothyroidism ??? Lumbar disc disease ??? Memory deficit ??? Morbid obesity (HCC-CMS) ??? Pain shoulder ??? Parkinson disease ([facility]-CMS) drug induced ??? Parkinsonism ([facility]-CMS) per H & P dated 04-13-21 drug induced ??? Patient unable to exercise ??? Peripheral neuropathy ??? Seizures (HCC-CMS) ??? Smoking ??? Static encephalopathy ??? Stroke ([facility]) with right hemiparesis- maida lift, WC dependant lives in SNF ??? Tardive dyskinesia per H & P dated 04-12-21 ??? 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 Anesthesia plan and risks discussed. Informed consent obtained from patient. Specific risks discussed were , myocardial infarction, stroke, dental injury, nausea and vomiting. Code status discussed? No The preoperative history and physical which was performed within 30 days of this procedure, has beenreviewed and the clinically appropriate elements of the physical examination have been repeated. There are no changes to the documented history and physical or, if so, such changes are documented in this note PAT Note PAT Note by Scott Lou RN at 04/20/2021 11:10 Version 1 of 1 COVID 19 Screening Perioperative at time of PAT Please document by exception (only check those that apply). Have you had any of the following symptoms recently? no Yes Chronic ? Cough Shortness of breath or difficulty breathing Fever Chills Fatigue Muscle or body aches Severe Headache New loss of taste or smell Sore throat Congestion or runny nose Rash Nausea, vomiting, or diarrhea (rare in adults. More common in children) Please elaborate if yes: If a chronic symptom is reported use your judgement if an anesthesia review is needed. Have you been in close contact with someone who has been diagnosed with Covid 19? no (close contact, within 6 feet of any person known to have Coronavirus in the past 14 days) Vaccination Status: _X__ Pt states fully vaccinated, __X_ Verified in chart ___ Pt states unvaccinated -Do not instruct patient regarding COVID testing, let [facility] coordinate this -Communicate status on yellow form for DOS If patient develops any of these symptoms between now and their surgery date instruct them to call us back at [phone] to report symptoms Visitor Policy: - Inpatients are now permitted two healthy support people at a time, including children. One person is permitted to remain overnight. - Pediatric Inpatients may have two healthy parents/guardians at the bedside and siblings are permitted as needed. One may stay overnight. - Inpatient Psychiatry patients may have two healthy, fully vaccinated support people at a time. Dueto the environment on these units, vaccination is a requirement for all visitors. - Two healthy support people are permitted to escort a patient undergoing any procedure requiring sedation or general anesthesia. - One healthy support person may accompany patients to outpatient appointments. Two healthy parents/guardians are permitted for pediatric patients. documented in this encounter Plan of Treatment Upcoming Encounters Date Type Specialty Care Team Description 06/13/2022 Appointment Radiology 06/13/2022 Office Visit Urology Reji Foster MD [address] [facility], [facility], [address] [place], [place] [phone] (Wo rk) documented as of this encounter Procedures Procedure Name Priority Date/Time Associated Comments Diagnosis ANESTHESIA Routine 05/19/2021 8:51 EDT Results for this INTUBATION procedure are i n the results section. documented in this encounter Results Airway (05/19/2021 8:51 EDT) Narrative Rinku Bunn MD - 05/19/2021 8:51 EDT Rinku Bunn MD ? 05/19/2021 ??9:08 Airway Date/Time: 05/19/2021 8:51 Urgency: elective Airway not difficult General Information and Staff Patient location during procedure: OR Anesthesiologist: Lynn Bright MD Resident/SUPERVISOR SCENIC ARTS: Rinku Bunn MD Performed: resident/SUPERVISOR SCENIC ARTS/AA Indications and Patient Condition Indications for airway management: anest hesia Sedation level: GA Preoxygenated: yes Patient position: sniffing Ventilation assessment: 2 - Oral airway inserted Final Airway Details Final airway type: endotracheal airway Successful airway: ETT Cuffed: yes Successful intubation technique: direct laryngoscopy Endotracheal tube insertion site: oral Blade: Audrey Blade size: #3 ETT size (mm): 6.5 Cormack-Lehane Classification: grade I - full view of glottis Placement verified by: chest auscultatio n, capnometry and palpation of cuff Measured from: gums ETT to gums (cm): 20 Number of attempts at approach: 1 Ventilation between attempts: none Number of other approaches attempted: 0 documented in this encounter Visit Diagnoses Not on filedocumented in this encounter Administered Medications Inactive Administered Medications - up to 3 most recent administrations Medication Order MAR Action Action Date Dose Rate Site ceFAZolin (ANCEF) syringe 2 g Given 05/19/2021 8:53 EDT 2 g 2 g, intravenous, Administer over 10 Minutes, PRE-OP ONCE, 1 dose, On Maria Eugenia 05/19/21 at 0745, Routine dexAMETHasone (DECADRON) injection Given 05/19/2021 8:51 EDT 4 mg intravenous, PRN, Starting on Maria Eugenia 05/19/21 at 0851, Until Maria Eugenia 05/19/21 at 1040, Routine, Anesthesia Intraprocedure fentaNYL citrate (PF) injection Given 05/19/2021 8:44 EDT 100 mcg intravenous, PRN, Starting on Maria Eugenia 05/19/21 at 0844, Until Maria Eugenia 05/19/21 at 1040, Routine, Anesthesia Intraprocedure ketAMINE in NaCl, iso-osmotic (KETALAR) 50 mg/5 Given 2020 8:55 EDT 20 mg mL (10 mg/mL) IV injection intravenous, PRN, Starting on Maria Eugenia 05/19/21 at 0855, Until Maria Eugenia 05/19/21 at 1040, Routine, Anesthesia Intraprocedure ketOROLAC (TORADOL) injection Given 05/19/2021 10:00 EDT 15 mg intravenous, PRN, Starting on Maria Eugenia 05/19/21 at 1000, Until Maria Eugenia 05/19/21 at 1040, Routine, Anesthesia Intraprocedure lactated ringers (LR) infusion Restarted 05/19/2021 8:40 EDT at 30 mL/hr, 30 mL/hr, intravenous, CONTINUOUS, Starting on Maria Eugenia 05/19/21 at 0800, Until Maria Eugenia 05/19/21 at 1552, Routine, Preprocedure Continued by Anesthesia 05/19/2021 8:30 EDT 30 mL/hr New Bag 05/19/2021 7:54 EDT 30 mL/hr 30 mL/hr lidocaine (PF) 20 mg/mL (2 %) injection Given 05/19/2021 8:41 EDT 80 mg intravenous, PRN, Starting on Maria Eugenia 05/19/21 at 0841, Until Maria Eugenia 05/19/21 at 1040, Routine, Anesthesia Intraprocedure midazolam (PF) (VERSED) injection Given 05/19/2021 8:40 EDT 0.5 mg intravenous, PRN, Starting on Maria Eugenia 05/19/21 at 0824, Until Maria Eugenia 05/19/21 at 1040, Routine, Anesthesia Intraprocedure Given 05/19/2021 8:24 EDT 0.5 mg ondansetron (PF) (ZOFRAN) injection Given 05/19/2021 9:59 EDT 4 mg intravenous, PRN, Starting on Maria Eugenia 05/19/21 at 0959, Until Maria Eugenia 05/19/21 at 1040, Routine, Anesthesia Intraprocedure phenylephrine HCl in 0.9% NaCl Rate Change 05/19/2021 9:29 EDT 10 mcg/min 6 mL/hr injection intravenous, FA IP EQF CONTINUOUS PRN FOR ONE STEP MEDS, Starting on Maria Eugenia 05/19/21 at 0900, Until Maria Eugenia 05/19/21 at 1040, Routine, Anesthesia Intraprocedure New Bag 05/19/2021 9:00 EDT 15 mcg/min 9 mL/hr propOFol (DIPRIVAN) injection Given 05/19/2021 8:56 EDT 50 mg intravenous, PRN, Starting on Maria Eugenia 05/19/21 at 0846, Until Maria Eugenia 05/19/21 at 1040, Routine, Anesthesia Intraprocedure Given 05/19/2021 8:46 EDT 100 mg rocuronium (ZEMURON) injection Given 05/19/2021 8:47 EDT 40 mg intravenous, PRN, Starting on Maria Eugenia 05/19/21 at 0847, Until Maria Eugenia 05/19/21 at 1040, Routine, Anesthesia Intraprocedure sugammadex (BRIDION) injection Given 05/19/2021 10:20 EDT 150 mg intravenous, PRN, Starting on Maria Eugenia 05/19/21 at 1020, Until Maria Eugenia 05/19/21 at 1040, Routine, Anesthesia Intraprocedure documented in this encounter Additional Health Concerns Infection Onset Date Last Indicated Resolved Time MRSAComment: IP note: risk factors - DM, impaired mobility, long term resident 02/25/2015 02/25/2015 Pos nares 02/25/2015 Neg nares 11/02/18 Neg nares 12/13/18 N [place] 12/13/18 documented as of this encounter Care Teams Jammer Operator Relationship Specialty Start Date End Date Pina Taylor MD PCP - General 04/21/21 10/03/21 [address] [phone] documented as of this encounter
--- OUTSIDE RECORDS SUMMARY | 2022-03-17 00:35 | XMS_ITS | Encounter Summary ---
:1960 Author Organization [facility] Address [address] [place] [address] Care Team Providers Name Role Phone Pina Taylor MD Primary Care Provider Reason for Referral Follow Up (Routine) - Specialty Report Received Specialty Diagnoses / Procedures Referred By Contact Juancho velazquez To Contact Gynecology Diagnoses Complication of other implanted genitourinary mesh, unspecified complication, subsequent encounter Ant Dyer MD Charland, Diane Marie, [address] [place] [address] [address] [place], [place] [id number] [place] [address] [facility] Fredrick peña, [address] [place] [address] Phone: Fax: Referral ID Status Reason Start Expiration Visits Visits Date Date Requested Authorized [id number] Specialty Specialty 05/24/2021 1 1 Report Services Received Required Question Answer Reason for Request: Follow up exposed mesh intra -op consult, urinary incontinence Scheduling Comments (optional ? 1 month describe specific scheduling needs if applicable): ollow Up (Other (Specify in Question)) - Receiving Office to Obtain Authorization Specialty Diagnoses / Procedures Referred By Contact Juancho velazquez To Contact Urology Diagnoses Right nephrolithiasis Kam Yates, Ep5 Urology [address] [facility] [address] [place], [place] [id number] [place] [id number] Referral ID Status Reason Start Expiration Visits Visits Date Date Requested Authorized [id number] Receiving Office Specialty 1 1 to Obtain Services 1 Authorization Required Question Answer Reason for Request: 1 week post URS cysto stent removal Scheduling Comments (optional ? 1 week describe specific scheduling needs if applicable): Reason for Visit Auth/Cert Specialty Diagnoses / Procedures Referred By Contact Refer red To Contact Diagnoses Staghorn calculus Procedures NH CYSTO/URETERO W/LITHOTRIPSY &INDWELL STENT INSRT Cystoscopy, right ureteroscopy with laser lithotrispy, right ureteral stent exchange Referral ID Status Reason Start Date Expiration Date Visits Requ ested Visits Authorized [id number] 1 1 Encounter Details Date Type Department Care Team [facility] 05/21/2021 Encounter Center Specialty MD Chance Staghorn calculus; Surgery Unit [address] [place] Bacteriuria; [address] Multiple drug resistant organism (MDRO) culture positive; [facility] Drug-drug interaction; [place], [place] [facility], Level 5 Complication of other implanted genitour inary mesh, unspecified complication, subsequent encounter [address] [place], [place] [phone] Social History Tobacco Use Types Packs/Day Years [...] on file documented as of this encounter Last Filed Vital Signs Vital Sign Reading Time Taken Comments Blood Pressure 148/83 05/21/2021 0935 EDT Pulse 80 05/20/20212040 EDT Temperature 36.7 ??C (98.1 ??F) 05/21/2021 0932 EDT Respiratory Rate 18 05/21/2021 0932 EDT Oxygen Saturation 98% 05/21/2021 0935 EDT Inhaled Oxygen Concentration - - Weight 67.3 kg (148 lb 5.9 oz) 05/19/2021 0712 EDT Height 165.1 cm (5' 5) 05/19/2021 0712 EDT Body Mass Index 24.69 05/19/2021 0712 EDT documented in this encounter Functional Status Functional Status Response [...] or older) documented as of this encounter Discharge Summaries Ant Dyer MD - 05/21/2021 0738 EDT Images from the original note were not included. Urology Discharge Summary Primary Care Provider: Elian Taylor Attending Physician: Reji Foster MD Admit Date: 05/19/2021 Discharge Date: 05/21/21 Disposition: Home or self care Problems and Procedures Admitting Diagnosis: Right nephrolithiasis, history complicated UTI with MDR bacteria. Principal/Final Diagnosis: Same Additional Problems Managed in the Hospital T2DM. Hypothyroidism, limited mobility Principal Procedure: Right sided second look ureteroscopy with basket stone extraction and ureteral stent exchange; removal of calcified urethro-vaginal foreign body Date: 05/19/21 Secondary Procedures: none Hospital Course Ms. Barrera is a 61 year old female who presented for second look ureteroscopy as above who had some chest pain prior to the procedure and this was adjudicated by anesthesia with an EKG and the decision was made to proceed. She underwent the above procedure and an introperative consult was made to Dr. Colby of urogynecology after discovery of a foreign body proximal to the introitus, and tolerated the procedure well without complications. She was sent to the PACU and then the floor for further observation overnight. She remained afebrile and clinically well appearing throughout her admission. Her renal culture, taken intraoperatively, grew enterobacter, enterococcus, and rare yeast. ID was consulted, we treated her with 2 days of ertapenem. Given that she was clinically well appearing, ID felt it was appropriate to not treat her yeast as she would not tolerate fluconazole due to QTc and drug-drug interaction, micafungin would have poor renal penetrance, and amphotericin would be morbid. She was given strict criteria to return to the ED if feeling ill, fevers, chills. She was discharged on 05/21 with plan for stent removal in the office and follow up with uro-gynecology. Allergies and Immunizations Allergies Allergen Reactions ??? Methadone ??? Penicillins Itching ??? Sulfa (Sulfonamide Antibiotics) ??? Tylox [Oxycodone-Acetaminophen] itching Immunization History Administered Date(s) Administered ??? Covid-19 mRNA Vaccine (SoupQubes COVID-19) PF 0.3 ml IM (12 yrs+) 09/29/2020, 10/19/2020 ??? Influenza (split) 12/09/2010 ? ? Pneumococcal Polysaccharide (PPSV23) Vaccine (PNEUMOVAX-23) =>2YO SQ/IM 12/09/2010 Transition of Care Plans Condition at Discharge Good Assessment at Discharge Vital signs: No data found. Results Pending at Discharge Test results still pending from this admission Procedure Component Value Units Date/Time Bacterial Culture/Smear, Other [[id number]] (Abnormal) (Susceptibility) Collected: 05/19/21921 Lab Status: Preliminary result Specimen: Fluid from Kidney Updated: 05/23/21 1512 Organism ID Moderate Enterobacter cloacae complex Rare Enterococcus faecalis Few Vancomycin resistant Enterococcus faecium Rare Natty glabrata Smear Neutrophils Present Gram Negative Bacilli Kidney Stone Analysis [[id number]] Collected: 05/19/21921 Lab Status: In process Specimen: Calculus from Kidney Updated: 05/19/21 1239 Relevant Studies at Discharge None Last Lab Results at Discharge BUN: Lab Results Component Value Date BUN 9 (L) 05/21/2021 Creatinine: Lab Results Component Value Date CREATININE 0.47 (L) 05/21/2021 CBC: Lab Results Component Value Date WBC 7.25 05/21/2021 RBC 3.69 (L) 05/21/2021 HGB 10.4 (L) 05/21/2021 HCT 33.2 (L) 05/21/2021 MCV 90 05/21/2021 MCH 28.2 05/21/2021 MCHC 31.3 (L) 05/21/2021 PLT 290 05/21/2021 DIFFTYPE Manual 11/01/2018 SEDRATE 88 (H) 09/04/2012 Electrolytes: Lab Results Component Value Date NA 142 05/21/2021 K 4.6 05/21/2021 CL 105 05/21/2021 CO2 28 05/21/2021 Discharge Follow Up Upcoming Appointments May 27, 2021 15:45 Post Op Visit with Reji Foster MD, Cystoscopy Scope [facility] Urology - [facility] (--) [address] [facility] [address] ANT DYER MD 05/24/2021 8:01 documented in this encounter Discharge Instructions Discharge Instr - AVS First PageAnt Dyer MD - 05/21/2021 15:44 EDT Diet: Resume preoperative diet Activity: Activity as tolerated It is normal to have pain associated with the ureteral stent. This pain may be worse with activity or movement. Driving: No driving while taking narcotic pain medication Skin/Wound Care: Resume normal skin care. Bathing: No restrictions Pending Results: None Symptoms to Call Your Doctor About: Burning with urination Chest pain Increased blood in urine Pain unrelieved by medication Shortness of breath Temperature greater than 101 degrees F Urinary retention Appointments: Please see Rjei Foster* in 1-2 weeks for stent removal in the office. Our office will call in the next few days to confirm an appointment time. If you do not hear from us in one week, please call [facility], . Future Appointments Date Time Provider Department Center 05/27/2021 15:45 Reji Foster MD EP5 Uro None What can I expect from having a ureteral stent? Most individuals find that having a ureteral stent after surgery for kidney stones can be irritatingbut is nothing like the pain of having a kidney stone. Most are able to go back to work without restrictions. Patients usually described being able to ???feel?? the stent in place when bending, lifting or twisting. This is common. You may experience flank and groin pain from the stent. After the procedure, you will be prescribed a number of medications that may help with this pain. Some medications work better for stent pain in certain people than others, so it is important to find a regimen that works for you. It is important to keep taking [id number] Tylenol (acetaminophen) and ibuprofen unless your doctor has recommended against taking these medications. Because of how the stent sits in your bladder, it may cause feelings of having to urinate more than you usually do. There may be some mild burning with urination. It can also cause blood in the urine (hematuria). Blood in the urine is like food coloring: It only takes a few drops to make it look bright red. You may notice anywhere from light pink clear urine to something resembling Avinash- Aid. This is common and can be expected from the stent. Blood in the urine can go away and then come back spontaneously while the stent is in place. Increase the amount of water you are drinking and make sure you stay hydrated. Please call us if you start passing clots in your urine greater than a dime to quarter in size. You may also notice pain in your flank when you urinate. This is because the stent allows urine to travel back up to the kidney and can cause kidney irritation. This will resolve when the stent is removed. Irritation from the stent can persist even after the stent has been removed. This is because removalof the stent can cause temporary swelling of the tube (ureter) connecting the kidneys to the bladder. This usually resolves within 6 hours after the stent has been removed. If it continues please give us a call. How long will the stent remain in my body? The stent will remain in place for approximately 7-10 days. It will be removed in the office. The procedure to remove it does not require any anesthesia and takes about 1 minute. A flexible camera scope is placed into the bladder allowing the surgeon to see the stent and remove it. This is generally extremely well tolerated. What are things to look out for? Please call us if you experience any of the following: Urinary retention (no urination for >6 hours) Fever greater than 101.5 F Passing clots larger than a dime, or dark purple urine that resembles grape juice Pain that is not controlled by medications provided Significant pain not controlled by medications lasting more than 6 hours after stent removal [facility] U[facility] Clinic: documented in this encounter Medications at Time of Discharge [...] Code Departure Means Destination Home or Self Mcfp documented in this encounter Progress Notes Surekha Walls RN - 05/21/2021 1224 EDT CASE MANAGEMENT UPDATE: Patient pending discharge return to [facility] in [place]. Will be transported via [facility] @ 2142. Nursing to please call report to XIOMARA Jalloh @ [phone]. Will need transition of care faxed to [phone]. Ambulance form faxed to be faxed to [facility] [phone]. [place] Stacey aware. Will need updated COL - MD Shubham Dyer aware. Surekha Walls RN [facility] Dept Pg [phone] Ant Dyer MD - 05/21/2021 1200 EDT Urology Progress Note Chief complaint: Right nephrolithiasis Procedure: s/p Right sided second look ureteroscopy with basket stone extraction and ureteral stent exchange; removal of calcified urethro-vaginal foreign body Date: 05/19/2021 24 hour events: ??? Afebrile, HDS ??? RCx with Enterobacter and rare GPCs ? ? ID consult -> ertapenem Subjective: Slept well, having some bloating and abdominal crampiness. Eating pancakes, eggs, and sausage this morning. No fevers or chills. Denies any chest pain, shortness of breath. Objective: Blood pressure (!) 148/83, pulse 80, temperature 36.7 ??C (98.1 ??F), temperature source Oral, resp.rate 18, height 165.1 cm (65), weight 67.3 kg (148 lb 5.9 oz), SpO2 98 %. Intake/Output Summary (Last 24 hours) at 05/21/2021 1200 Last data filed at 05/21/2021 1026 Gross per 24 hour Intake 1723.75 ml Output 1100 ml Net 623.75 ml Exam: Gen: NAD, non-toxic appearing. Resp: Unlabored on room air Abdominal: Soft, non-distended. : Purewick in place with clear yellow drainage Extremities: Warm and well perfused. Neuro: Alert and oriented, no gross motor or sensory deficits MSK: Normal ROM CBC Recent Labs 05/20/21 0424 05/21/21 0426 WBC 7.32 7.25 RBC 3.78* 3.69* HGB 10.5* 10.4* HCT 32.4* 33.2* MCV 86 90 MCHC 32.4 31.3* PLT 297 290 BMP Recent Labs 05/20/21 0424 05/21/21425 CREATININE 0.55 0.47* BUN 10 9* NA 141 142 K 4.1 4.6 CL 103 105 CO2 28 28 Micro: Kidney fluid: gram negative bacilli 05/12/2021 Urine Culture: Enterococcus faecium Assessment: Ginger Barrera is a 61 y.o. female with Right nephrolithiasis now currently s/p Right sided second look ureteroscopy with basket stone extraction and ureteral stent exchange; removal of calcified urethro-vaginal foreign body. Admission for medically complex patient, post-operative observation. Recovering appropriately at this time. Afebrile, HDS overnight. Labs reassuring. Patient with enterobacter cloacae in renal culture with rare enterococcus. ID consulted due to complex past cultures anddifficult finding appropriate abx. Currently on short course of ertapenem. Plan: ??? Abx: Ertapenem o ID Consult ??? 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 Diet: Carb consistent o Bowel regimen ordered ??? Activity as tolerated, encourage ambulation ??? Incentive spirometry ??? DVT Ppx: Heparin BID Dispo Planning ??? PATI: Today likely, back to [facility], needs ambulance. ??? Follow up: Needs stent removal follow up Future Appointments Date Time Provider Department Center 05/27/2021 15:45 Reji Foster MD EP5 Uro None ANT DYER MD 05/21/2021 12:00 Weekdays from 7AM-5PM page the Urology Service Pager #[phone] with questions. Nights and weekends, please page through PAS. Associated attestation - Luis Kaiser MD - 05/22/2021 0956 EDT Attestation statement: I saw and examined the patient with the student/resident. I agree with the findings and plan of care documented in the student's/resident's note. Luis Kaiser MD 9:56 Bobbi Womack MD - 05/20/2021 1451 EDT Brief ID update Per discussion with lab, GNR in urine is enterobacter. This would not be susceptible to cefpodoxime.Formal sensies will not be available until tomorrow, though PO options not available given cipro is QT prolonging (contraindicated given her seroquel which is also QT prolonging) and she is allergic tosulfa (bactrim could have been another choice). At this time would d/c cefpodoxime. Could give her adose of ertapenem today ( 1 gram IV) and tomorrow am which would treat the enterobacter for short course following procedure. Rare GPC also present, identification won't be available until tomorrow. Have paged the team. MD Meño Mikhail Jimenez MD - 05/20/2021 0617 EDT Urology Progress Note Chief complaint: Right nephrolithiasis Procedure: s/p Right sided second look ureteroscopy with basket stone extraction and ureteral stent exchange; removal of calcified urethro-vaginal foreign body Date: 05/19/2021 24 hour events: ??? OR for above procedure ??? Afebrile, HDS Subjective: Doing okay overnight. Crampy abdominal pain. Has some nausea, no vomiting. Pt with good pain control. Diet: Tolerating PO intake. Bowel Function: Last bowel movement yesterday. Denies any chest pain, shortness of breath. Objective: Blood pressure 119/78, pulse 74, temperature 36.6 ??C (97.8 ??F), temperature source Oral, resp. rate 14, height 165.1 cm (65), weight 67.3 kg (148 lb 5.9 oz), SpO2 93 %. Intake/Output Summary (Last 24 hours) at 05/20/2021 0617 Last data filed at 05/19/2021 2307 Gross per 24 hour Intake 1015 ml Output 575 ml Net 440 ml Exam: Gen: NAD, non-toxic appearing. Resp: Unlabored on room air Abdominal: Soft, non-distended, mild diffuse tendernes Back: Mild left CVA tenderness. : Purewick in place with clear yellow drainage Extremities: Warm and well perfused. Neuro: Alert and oriented, no gross motor or sensory deficits MSK: Normal ROM CBC Recent Labs 05/20/21 0424 WBC 7.32 RBC 3.78* HGB 10.5* HCT 32.4* MCV 86 MCHC 32.4 PLT 297 BMP Recent Labs 05/20/21 0424 CREATININE 0.55 BUN 10 NA 141 K 4.1 CL 103 CO2 28 Micro: Kidney fluid: gram negative bacilli 05/12/2021 Urine Culture: Enterococcus faecium Assessment: Ginger Barrera is a 61 y.o. female with Right nephrolithiasis now currently s/p Right sided second look ureteroscopy with basket stone extraction and ureteral stent exchange; removal of calcified urethro-vaginal foreign body. Admission for medically complex patient, post-operative observation. Of note, patient had chest pain prior to procedure. EKG without issues, anesthesia was comfortably proceeding without procedure without further cardiology evaluation or work up. Recovering appropriately at this time. Afebrile, HDS overnight. Labs reassuring. Patient with bacteria in renal pevlis culture from OR. She has complex resistant organisms growing on prior cultures. Will discuss with ID about antimicrobial coverage. Plan: ??? Pain: Tylenol, Toradol ??? Abx: Linezolid o ID Consult ??? 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 Diet: Carb consistent o Bowel regimen ordered ??? Activity as tolerated, encourage ambulation ??? Incentive spirometry ??? DVT Ppx: Heparin BID Dispo Planning ??? PATI: TBD ??? Follow up: Needs stent removal follow up No future appointments. MIKHAIL JIMENEZ MD 05/20/2021 6:17 Weekdays from 7AM-5PM page the Urology Service Pager #[phone] with questions. Nights and weekends, please page through PAS. Araceli Tellez RN - 05/19/2021 0802 EDT Preop Covid DOS screening questionnaire Please document by exception (only check those that apply). Have you had any of the following symptoms recently? Yes Chronic ? Cough Shortness of breath or difficulty breathing Fever Chills Fatigue Muscle or body aches Severe Headache New loss of taste or smell Sore throat Congestion or runny nose Rash Nausea, vomiting, or diarrhea (rare in adults. More common in children) Diarrhea From bowel medications Were you covid tested? yes When: 05/16/21 Results: neg Vaccinated: YES If yes, have you self-isolated/quarantined since your test? yes See admission vital signs documentation for admission temperature. documented in this encounter H&P Notes Araceli Cramer PA-C - 05/19/2021 0726 EDT The preoperative history and physical which was performed within 30 days of this procedure has been reviewed and the clinically appropriate elements of the physical examination havebeen repeated. There are no changes to the documented history and physical or if so such changes aredocumented below Lungs: CTA bilaterally CV: RRR Araceli Cramer PA-C 05/19/2021 7:26 documented in this encounter Consult Notes Shyam Simpson - 05/20/2021 1259 EDT Brief Nutrition Note: Nursing nutrition consult 2/2 DM2. Pt not interested in DM2 diet education at this time, pt believesshe has done well controlling her diet and her weight. Continue consistent carbohydrate diet; monitor blood sugars and adjust diabetic medications as needed. Shyammadelyn Simpson, MS RD CD Pager: [phone] Bobbi Womack MD - 05/20/2021 1207 EDT Infectious Disease Consult Note Admit Date: 05/19/2021 Date of Service: 05/20/2021 Requesting Physician: Dr. Foster Reason for Consult: Bacteriuria, MDR organism, drug drug interactions HPI: (include onset, location, quality, severity, duration, timing, associating symptoms) 61 y/o female with history of MDR organisms, nephrolithiasis now POD # 1 s/p stage 2 of stone removal, with pyuria and question for need for ongoing antibiotic therapy. 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 Also with urinary and bowel incontinence raising suspicion for neurogenicbladder and bowel. Bipolar disease on multiple psych agents (Wellbutrin, trazodone, seroquel) and sinemet for movement disorder. Has history of nephrolithiasis requiring treatment in 2019. Found to have staghorn calculus by imaging performed for abdominal pain (the abdominal pain subsequently attributed to constipation). Reportedly had not been experiencing repeated UTIs. Plan was made for staged intervention. Underwent PCNL 04/28 for stage one. Pre-procedure urine with kleb pna and proteus. Carmen-procppx with ctx. She tolerated the procedure well, without post op fever. Urine from kidney during the 04/28 procedure revealed growth of proteus (ctx susceptible). Returned for second stage of procedure 04/25 6. Pre-op urine with VRE and amp and vanco sensitive enterococcus. Treated with fosfomycin at [facility]. Received cefazolin and linezolid pre-op. Linezolid has continued. She has continued to be hemodynamically stable and afebrile. ID asked to comment on additional therapeutics and diagnostics. Currently, patient reports she's feeling ok. Reports some abdominal bloating since her first stone removal procedure. Has also had some chills and reports some intermittent dizziness. No measured temperature. Thinks she was on antibiotics leading into her procedure but she doesn't know which. They told me I had 3 infections, I never felt burning, didn't have any symptoms. Reports urinary and fecal incontinence at baseline, but no indwelling lozada, she uses a brief. Describes intermittent diarrhea,at times can be daily. Feels intermittent SOB, not new. Has been bed bound for years. No troubles with decubiti. Review of Systems: The remainder of a ten point review of systems was performed and negative. Past Medical History: has a past medical history of Anxiety, Bipolar affective disorder ([facility]), Community acquired pneumonia, Decreased motor strength, Decreased sensation, Diabetes mellitus ([facility]), Diabetes mellitus, type 2 ([facility]), DM (diabetes mellitus screen), Edentulous, Headache(784.0), History of general anesthesia, History of kidney stones, HTN (hypertension), Hypothyroidism, Lumbar disc disease, Memory deficit, Morbid obesity ([facility]), Pain, Parkinson disease ([facility]), Parkinsonism ([facility]), Patient unable to exercise, Peripheral neuropathy, Seizures ([facility]), Smoking, Static en cephalopathy, Stroke ([facility]), Tardive dyskinesia, and VRE (vancomycin- resistant Enterococci). Past Surgical History: has a past surgical history that includes Cervical spine surgery; Lumbar spine surgery; Foot surgery; Wrist surgery; hip surgery (Right); Cataract removal with implant (Right, 06/15/2016); and Cataract removal with implant (Left, 06/29/2016). Medications: MAR reviewed. Anti-infectives: cefazolin pre op X 1 on 05/19; linezolid 05/19-05/20 Allergies: Methadone, Penicillins, Sulfa (sulfonamide antibiotics), and Tylox [oxycodone-acetaminophen] Family History: family history includes Alcohol Abuse in her brother, father, and sister; Stroke in her mother. Social History: Dependent for care. Bed bound for years. Vital Signs: BP 103/70 (BP Cuff Location: Left arm, BP Patient Position: Semi fowlers) Pulse 74 Temp 36.7 ??C (98 ??F) (Oral) Resp 14 Ht 165.1 cm (65) Wt 67.3 kg (148 lb 5.9 oz) SpO2 97% BMI 24.69 kg/m?? Exam: Gen: Awake, alert. NAD. Comfortable on RA. Persistent rhythmic mouth movements, foot movements on left Head/Neck: Anicteric, no subconjunctival hemorrhage. Oral mucosa moist. Neck is supple. Heart: Reg. 2/6 systolic murmer LUSB. Lungs: Decreased BS at bases, otherwise CTA. Abdomen: obese, soft, NT : Lozada with yellow urine Lymph Nodes: No cervical, supraclavicular adenopathy. Skin: Paronychia left thumb. NT. Musculoskeletal: Extremities: Neuro: right sided hemiparesis. Moves left UE and LE easily against gravity. Catheters: PIV. Lozada. Data Review: Laboratory data reviewed. Pertinent positives include: Labs: WBC/RBC/HGB/HCT/PLT/ANC7.32/3.78/10.5/32.4/297/-- (05/20 0424) Cr Microbiology: Pre op urine 04/20: culture with kleb PNA, proteus Urine from kidney 04/28: g/s with no PMN, no bacteria, culture with proteus (sensitive to cefazolin, ctx) Pre op urine 05/09: VRE and amp/vanco sensitive enterococcus Urine from right kidney 05/19: G/s with PMN, GNR, culture thus far with heavy GNR, morphology could be consistent with proteus--ID expected this afternoon. Also with rare growth of another morphology on SHIFT LAB TECHNICIAN plate, g/s in process. Other: Radiological Studies: I have independently visualized the renal colic CT from 04/28. Marked reduction in stone burden as compared to imaging from Oct. Signif amount of stool in descending colon. Assessment: 1. Bacteriuria. Heavy growth of GNR from urine specimen collected from right kidney during procedure05/19. Despite this, no fevers, abdominal pain, vomiting to suggest pyelonephritis. Given recent instrumentation reasonable to extend antibiotics though can treat with PO and transition to cefpodoxime. Would suggest short course of therapy following procedure thus 3 days is a reasonable duration given successful removal of stones, stent in place assuring effective drainage. 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 Pre op with growth of VRE, thus agree reasonable to include in pre-op ppx prior to instrumentation. No growth of this from kidney fluid and has received 24 hours of therapy for presume VRE post op. Given drug drug interactions would favor d/c of linezolid. Would follow cultures. If therapy for VRE indicated, IV daptomycin would be the preferred agent. 2. Nephrolithiasis. Now s/p successful staged removal. 3. MDR organisms. Would continue contact precautions. 4. Drug drug interactions between psych and Parkinson's meds and linezolid. 5. 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 Recommendations: 1. D/c linezolid. 2. Cefpdoxime 200 mg PO Q 12 hours X 48 hours longer. 3. Once off of antibiotics would monitor for fever, abdominal pain, hematuria, pelvic pain or other concerning symptoms. 4 If these symptoms develop, would obtain blood cultures and urine for UA, culture. 5. If she ultimately needs therapy for treatment of VRE, would suggest daptomycin 6 mg/kg given numerous drug drug interactions with her psych meds/sinemet and linezolid. Though no indication for this. Discussed with primary care team Bobbi Womack MD 05/20/2021 12:08 documented in this encounter Nursing Notes Lexy Marrero RN - 05/19/2021 1133 EDT Contacted [facility] apprised the facility that patient would not be discharged back to facility today. Attempt to speak with charge accounts audit clerk and call was disconnected. Attempt recall unable to connect at this time. documented in this encounter OR Notes OR Surgeon - Reji Foster MD - 05/19/2021 0618 EDT OPERATIVE REPORT SERVICE DATE: 05/19/2021 SURGEON: Reji Foster MD EXCELSIOR CUTTER: Kam Yates MD and Kenna Colby MD (for intraoperative urolgynecology consult) PREOPERATIVE DIAGNOSIS: Right nephrolithiasis. POSTOPERATIVE DIAGNOSIS: Right nephrolithiasis. PROCEDURE: Right-sided second look ureteroscopy with basket stone extraction, ureteral stent exchange, removal of calcified urethrovaginal foreign body. ANESTHESIA: General endotracheal anesthesia. ESTIMATED BLOOD LOSS: Minimal. FLUIDS: Per anesthesia. URINE OUTPUT: Not measured. SPECIMENS AND CULTURES: Stone was sent for biochemical analysis and stone culture and then urethral stone was sent for analysis. FOREIGN MATERIAL RETAINED: A 6-Danish x 24 cm double-J ureteral stent on the right side. INDICATIONS: Ginger Barrera is a 61-year-old female with history of kidney stones requiring percutaneous nephrolithotomy, both in 2018, and also recently in April 2021 due to significant staghorn calculus burden in the right kidney. She had previously been asymptomatic, but due to the potential of the stone to cause problems, decision was made to percutaneously addressed this. Today, she presents for a second look ureteroscopy to clear any residual stone burden. NARRATIVE: After obtaining informed consent, the patient was brought back to the operating theater where a [facility] safety checks part 1 was performed. The patient was then given an appropriate course of antibiotics, Venodynes were placed, and the patient was induced with general endotracheal anesthesia. The patient was then placed in dorsal lithotomy position, prepped and draped in standard sterile fashion. A [facility] safety checklist part 2 was performed, verifying patient, procedure, and laterality. We then proceeded to attempt to enter her bladder and noted a large calcified mass justdistal to the urethra at the urethral opening in the left side of the vagina. We then proceeded to enter her bladder atraumatically using a 22.5-Danish cystoscopic sheath and a 30-degree telescopic lens. We performed panendoscopy of the bladder. There were no signs of any other mesh or foreign body eroding or calcified in the bladder, no masses and no mucosal abnormalities. Of note, there was an extraordinarily low bladder capacity and the bladder did not distend particularly well with leakage around the scope at low volumes. The urethra did not seem to collapse particularly well. We identified thepreviously placed ureteral stent emanating from the right ureteral orifice and grasped it using a cystoscopic grasper, which was then brought out through the urethral meatus and cannulated using a 0.035 sensor wire passing this up into the right kidney. The stent was removed and we then introduced a flexible digital ureteroscope and floated it directly up the ureter, noting no stones in the ureter all the way up into the kidney. There were a number of small stone debris fragments and particularly inthe upper pole of the kidney. We then placed a second wire, a 0.038 Bentson through our scope and then removed it and then introduced over our Bentson wire, a 12 x 14 Danish x 35 mm ureteral access sheath with the obturator and Bentson wire being removed after this was placed. We then proceeded to intr oduce a 0 tip nitinol basket and removed as many of the small fragments, especially the largest onesas possible. There was a very small amount of debris left, but it was too small to either be graspedor broken up into smaller pieces effectively with the laser. We then proceeded to move to ureteral stent placement, so we removed our ureteral access sheath under direct vision, noting no trauma to theureter and over our Sensor wire, placed a 6-Danish x 24 cm double-J ureteral stent, ensuring excellent curls in the bladder using fluoroscopy and in the kidney. The bladder was emptied and final positioning shots were taken. We also called in our urogynecology colleague, Dr Kenna Colby for an intraoperative consult for this particular calcified foreign body. It was believed that this may have beenmesh that had eroded from a previously placed urethral sling approximately 10 years ago. The calcifications were removed and the mesh was identified. Decision was made not to excise at this time. As such, the case was ended. The patient was awakened from anesthesia and sent to the recovery room in good condition having suffered no immediate apparent complications. DISPOSITION AND PLAN: She will be admitted overnight for observation and then follow up with a combination of Dr Foster, Dr Cortez and Dr Colby of urogynecology for discussion of management of this eroded mesh. Dr Foster was present and scrubbed for the entire procedure. Unless otherwise noted, there were no complications, no blood loss, no cultures obtained, no specimens removed, and no drains retained. Reji Foster MD / Kam Yates MD / CD Confirmation: [id number] Dictation ID: [id number] cc: documented in this encounter Miscellaneous Notes Plan of Stephanie - Rajesh Patrick RN - 05/21/2021 1650 EDT Problem: Daily Care Plan Goals Goal: Care Plan Documentation Outcome: Ongoing Flowsheets (Taken 05/21/2021 1030) Area of Focus: Skin Integrity Goal This Shift: Turn and provide perineal care to promote skin integrity Discharge Note D - 61 y/o F POD #2 s/p R-sided ureteroscopy, ureteral stent exchange and removal of calcified urethrovaginal foreign body. A&O x4, VSS, RA. Residual R- sided weakness, facial droop and contracture.Purewick and depends in place. Patient ordered for discharge today. A - Hourly checks completed and medications administered per NOV. Purewick changed as needed. Patient had several loose stools today. Abx per orders. Medication information sheets and After Visit Summary compiled for discharge. Report called to [facility]. IVs and ID band removed. R - Patient questions reviewed and addressed prior to discharge. Patient denied pain. Patient left the unit in a stretcher via ambulance in stable condition. No distress noted. 05/21/2021 1650 RAJESH PATRICK RN lan of Rock Briggs RN - 05/21/2021 0404 EDT Patient is POD #2 s/p R-sided ureteroscopy, ureteral stent exchange and removal of calcified urethrovaginal foreign body. Purwik has been effective for managing incontinence this shift. Simethicone ordered PRN for gas and bloating. A one time dose of diclofenac EC 50mg administered for pain with positive effect. IV fluids continue to run at 75ml/hour with excellent output noted. Patient remains on contact precautions at this time due to possible urinary VRE. ID consulting. VSS. Patient resting comfortably. Will monitor for any increase in symptoms including febrile temps. lan of Rajesh Kaur RN - 05/20/2021 1832 EDT Problem: Daily Care Plan Goals Goal: Care Plan Documentation Outcome: Ongoing Flowsheets (Taken 05/20/2021 1000) Area of Focus: Skin Integrity Goal This Shift: Prevent skin breakdown Data: 61 y/o F POD #1 s/p R-sided ureteroscopy, ureteral stent exchange and removal of calcified urethrovaginal foreign body. A&O x4, VSS, RA. R-sided weakness, facial droop and contracture d/t prior CVA. Patient reports ongoing abdominal pain that doesn't seem to be relieved with pyridium and tylenol; notified. Purewick in place. Action: Hourly checks completed and medications per MAR. Purewick changed x2. Linens changed as needed. Abx per orders. Communicated with team regarding changes to medication orders and patient's ongoing pain. Response: Patient is resting at this time. Tolerates her meals well. Will continue to monitor and assess. RAJESH PATRICK RN 05/20/2021 18:32 lan of [facility] - 05/20/2021 1347 EDT Initial Case Management/Social Work Assessment and Discharge Plan/Readmission Risk Assessment REASON FOR ADMISSION: Staghorn calculus Patient understands reason for admission: Yes PATIENT INFO VERIFIED: PCP, Contact Info, Address LIVING ARRANGEMENTS AND ACCESSIBILITY ISSUES: Living Arrangements: senior care Care Facility Name: [facility] Levels: 1 Stairs to enter: 0 Handicap access: Elevator, Ramp Bathroom located on bedroom level?: Yes What in home social supports are available to the patient? Friends / neighbors, Home care staff Is 24/ care available? Yes ADVANCED DIRECTIVES, POA &/or COLST IN PLACE: Healthcare Directive: No, patient does not have advance directive for healthcare treatment Type of Healthcare Directive: None Copy in Chart: Other (Comment) Information Provided on Healthcare Directives: No Information on Healthcare Directives Requested: No DIRECTIVES FOR FINANCES: Directive For Finances: No TRANSPORTATION: Transportation: Ambulance Patient expects to be discharged to: [facility] CULTURAL, MORMONISM and/or LANGUAGE factors affecting health care/discharge planning: Spiritual/Cultural Requests: None Insurance Information: Medical Insurance: Yes Type of insurance: Medicare Medicaid Type: LTC Medicaid Referred to patient financial services: No Nutrition: DISCHARGE RISK ASSESSMENT: (P) Diagnosis of Diabetes;Incontinent Total # selected above: (P) Score of 1 - 2: This patient is at LOW RISK for re-hospitalization Tentative plan to address the risk of re-hospitalization for those at HIGH MODERATE RISK: (P) Bring risk factors to attention of team to be addressed RAPT TOOL: Age: (P) 50-65 Gender: (P) Female Ambulation distance: (P) Housebound most of the time Gait device: (P) None Community Services: (P) Home health, MOW, SASH-none of one time a week Will you live with someone who will care for you?: (P) Yes RAPT Tool Score: (P) 9 Patient expects to be discharged to: [facility] SBIRT: SASQ (Single Alcohol Screening Question) How many times in the past year have you had 4 or more drinks in a single day?: (P) Never How many times in the past year have you used an illegal drug or used a prescription medication for non-medical reasons?: (P) Never Intervention in place/initiated?: (P) No, not indicated FUNCTIONAL STATUS: Activities patient requires assistance: Mobility, Bathing, Taking Medications, Dressing, Toileting, Food preparation/shopping, Grooming, In/Out of Bed Assistive Device: Wheelchair COMMUNITY RESOURCES/SUPPORTS: Primary Care Provider: Elian Taylor PCP Verified: Specialists: (P) Other (Urology, Rheumatology) Type of Home Health Services: (P) None DME Provider: Pharmacy: [id number] - [place], [place] - [address] [facility] [id number] [facility] - [place], [place] - [address] [place] [id number] Home Health: Other: (P) Other (enter in comments) POST HOSPITAL TRANSITION PLAN: Patient with kidney stones, came in for procedure to remove staghorn calculus. The surgery was successful and patient may discharge later this afternoon or tomorrow. She currently lives at the [facility] in [place] where she has resided for the past 4 years, she is nonambulatory and transfers by ambulance. Upon discharge case management will assist with arranging ambulance transport. Staff nurse may call report to facility at [phone] ALMA MENDEZY 05/20/2021 13:47 lan of Care - Amber Castro RN - 05/20/2021 1016 EDT Patient has a history of MRSA (click on Inf: MRSA in PRISM banner for details) and a history of VRE (click on Inf: VRE in Epic banner for details). Maintain contact precautions. Do not cohort at this time. Please call Infection Prevention with questions [phone]. lan of Care - Israel Em RN - 05/19/2021 1545 EDT Admission Note D - This is a(n) 61 y.o. female who is being admitted from PACU This is post-op day 0 for the patient. Patient is status-post Ureteroscopy A - Vital signs taken. Patient oriented to unit and room. Call light and bed use reviewed. Call light within reach, bed placed in low position and table at bedside. Room is free of clutter. R - Continue to assess and monitor patient. 05/19/2021 15:45 ISRAEL EM RN Autologous BMT - Kam Yates MD - 05/19/2021 1030 EDT Brief Post-Op Note Date of Surgery: 05/19/2021 Surgeon: Reji Foster* Assistants: Kam Yates MD Pre-Op Diagnosis: Right nephrolithiasis Post-Op Diagnosis: same Procedure(s): Right sided second look ureteroscopy with basket stone extraction and ureteral stent exchange; removal of calcified urethro-vaginal foreign body Findings: intraoperative consult w/ Dr. Colby of Urogynecology -- calcified extruding mesh just below urethra; debris/tiny stones in UP of kidney; Chest pain prior, okay ekg preop. Anesthesia Type: General Estimated Blood Loss: Unless otherwise noted, there was no blood loss, specimens removed, cultures obtained, or drains retained. The estimated blood loss was Minimal Fluids: fluid replacement per anesthesia Urine Output: not measured Specimens/Cultures: stone was sent for analysis/stone culture; urethral stone was sent for analysis Drains/Packs: no lozada catheter 6fr X 24cm R JJ ureteral stent Wound Class: II: clean contaminated Complications: None Disposition and Condition: Ginger Barrera was sent to PACU in Good condition. 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 Kam Yates MD 05/19/2021 10:31 documented in this encounter Plan of Treatment Upcoming Encounters Date Type Specialty Care Team Description 06/13/2022 Appointment Radiology 06/13/2022 Office Visit Urology Reji Foster MD [address] [place] [address], [facility], [address] [place], [place] [address] (Wo rk) Scheduled Referrals Name Type Priority Associated Diagnoses Order S chedule AMB CONS/FOLLOW UP Outpatient Routine Right nephrolithiasis Ordered: UROLOGY Referral 05/20/2021 AMB CONS/FOLLOW UP Outpatient Routine Complication of other Ordered: UROGYNECOLOGY Referral implanted 05/24/2021 genitourinary mesh, unspecified complication, subsequent encounter documented as of this encounter Procedures Procedure Name Priority Date/Time Associated Comments Diagnosis IMPLANT RECORD - 05/26/2021 12:00 SCANNED EDT IMPLANT RECORD - 05/25/2021 10:04 SCANNED EDT ECG REPORT - SCANNED 05/25/2021 10:04 EDT POCT GLUCOSE, Routine 05/21/2021 13:05 Results fo r this INTERFACED EDT procedure are i n the results section. POCT GLUCOSE, Routine 05/21/2021 10:03 Results fo r this INTERFACED EDT procedure are i n the results section. COMPLETE BLOOD COUNT Routine 05/21/2021 4:26 Resu lts for this EDT procedure are i n the results section. BUN Routine 05/21/2021 4:26 Results for this EDT procedure are i n the results section. CREATININE Routine 05/21/2021 4:26 Results for this EDT procedure are i n the results section. ELECTROLYTES Routine 05/21/2021 4:26 Results for this EDT procedure are i n the results section. POCT GLUCOSE, Routine 05/20/2021 20:31 Results fo r this INTERFACED EDT procedure are i n the results section. POCT GLUCOSE, Routine 05/20/2021 17:44 Results fo r this INTERFACED EDT procedure are i n the results section. POCT GLUCOSE, Routine 05/20/2021 13:07 Results fo r this INTERFACED EDT procedure are i n the results section. MRSA PCR Routine 05/20/2021 11:59 Results for this EDT procedure are i n the results section. POCT GLUCOSE, Routine 05/20/2021 7:18 Results for this INTERFACED EDT procedure are i n the results section. COMPLETE BLOOD COUNT Routine 05/20/2021 4:24 Resu lts for this EDT procedure are i n the results section. BUN Routine 05/20/2021 4:24 Results for this EDT procedure are i n the results section. GLUCOSE, SERUM Routine 05/20/2021 4:24 Results fo r this EDT procedure are i n the results section. CREATININE Routine 05/20/2021 4:24 Results for this EDT procedure are i n the results section. ELECTROLYTES Routine 05/20/2021 4:24 Results for this EDT procedure are i n the results section. POCT GLUCOSE, Routine 05/20/2021 2:19 Results for this INTERFACED EDT procedure are i n the results section. POCT GLUCOSE, Routine 05/20/2021 0:09 Results for this INTERFACED EDT procedure are i n the results section. POCT GLUCOSE, Routine 05/19/2021 22:38 Results fo r this INTERFACED EDT procedure are i n the results section. POCT GLUCOSE, Routine 05/19/2021 20:14 Results fo r this INTERFACED EDT procedure are i n the results section. POCT GLUCOSE, Routine 05/19/2021 15:58 Results fo r this INTERFACED EDT procedure are i n the results section. POCT GLUCOSE, Routine 05/19/2021 13:36 Results fo r this INTERFACED EDT procedure are i n the results section. ECG REPORT - SCANNED 05/19/2021 11:25 EDT POCT GLUCOSE, Routine 05/19/2021 10:52 Results fo r this INTERFACED EDT procedure are i n the results section. FL C-ARM RETROGRADE Routine 05/19/2021 10:27 Resu lts for this EDT procedure are i n the results section. BACTERIAL Routine 05/19/2021 9:22 Results for this CULTURE/SMEAR EDT procedure are in the results section. KIDNEY STONE ANALYSIS Routine 05/19/2021 9:22 Res ults for this EDT procedure are i n the results section. EKG 12-LEAD Routine 05/19/2021 8:24 Results for this EDT procedure are i n the results section. CYSTOURETEROSCOPY, 05/19/2021 8:21 Staghorn calculus WITH LITHOTRIPSY, AND EDT URETERAL STENT INSERTION Special Needs Thulium Stone Laser POCT GLUCOSE, INTERFACED Routine 05/19/2021 7:47 EDT documented in this encounter Results (ABNORMAL) POCT GLUCOSE, INTERFACED (05/21/2021 13:05 EDT) Glucose, POC 269 (H) 70 - 100 [facility] mg/dL LABORATORY SERVICES HN LAB POC COMMENT Test Performed by [facility] (GLUCOSE) Nursing Services LABORATORY SERVICES Specimen Blood - Capillary blood (substance) Performing Organization Address City/[facility] Code Phon e Number [facility] LABORATORY [address] [place] [address] SERVICES (ABNORMAL) POCT GLUCOSE, INTERFACED (05/21/2021 10:03 EDT) Glucose, POC 164 (H) 70 - 100 [facility] mg/dL LABORATORY SERVICES HN LAB POC COMMENT Test Performed by [facility] R (GLUCOSE) Nursing Services LABORATORY SERVICES Specimen Blood - Capillary blood (substance) Performing Organization Address City/[facility]/ZIP [facility] Phon e Number [facility] LABORATORY [address] [place] [address] SERVICES (ABNORMAL) BUN (05/21/2021 4:26 EDT) Pathologist Sig nature BUN 9 (L) 10 - 26 mg/dL [facility] LABORATO RY SERVICES Specimen Blood - Venous blood (substance) Performing Organization Address City/[facility]/ZIP Code Phon e Number [facility] LABORATORY [address] [place] [address] SERVICES (ABNORMAL) CREATININE (05/21/2021 4:26 EDT) Creatinine 0.47 (L) 0.52 - 1.04 [facility] mg/dL LABORATORY SERVICES eGFR 107Comment: eGFR >60 [facility] calculated using mL/min/1.73m2 LABORATORY SERVICES CKD-EPI equation for non- Americans. Multiply eGFR by 1.16 for patients. Specimen Blood - Venous blood (substance) Performing Organization Address [facility] e Number [facility] LABORATORY [address] [place] [address] SERVICES (ABNORMAL) COMPLETE BLOOD COUNT (05/21/2021 4:26 EDT) Pathologist Sig nature WBC 7.25 4.00 - 12.40 K/cmm [facility] LABORATORY SERVICES RBC 3.69 (L) 3.86 - 5.04 M/cmm [facility] LABORATORY SERVICES Hemoglobin 10.4 (L) 11.6 - 15.2 gm/dL [facility] LABORATORY SERVICES HCT 33.2 (L) 34.9 - 44.4 % [facility] LABORATORY SERVICES MCV 90 81 - 98 fl [facility] LABORATORY SERVICES MCH 28.2 26.7 - 33.3 pg [facility] LABORATORY SERVICES MCHC 31.3 (L) 32.1 - 35.9 gm/dL [facility] LABORATORY SERVICES RDW-CV 14.0 <14.7 % [facility] LABORATORY SERVICES RDW-SD 45.9 <50.4 fl [facility] LABORATORY SERVICES PLT 290 141 - 377 K/cmm [facility] LABORATORY SERVICES MPV 9.5 9.5 - 12.7 fl [facility] LABORATORY SERVICES Specimen Blood - Venous blood (substance) Performing Organization Address City/[facility]/ZIP [facility] Phon e Number [facility] [facility] [address] [id number] SERVICES ELECTROLYTES (05/21/2021 4:26 EDT) Pathologist Sig nature Sodium 142 136 - 145 mmol/L [facility] ATORY SERVICES Potassium 4.6 3.5 - 5.0 mEq/L [facility]A TORY SERVICES Chloride 105 96 - 110 mEq/L [facility] ORY SERVICES CO2 Total 28 22 - 32 mEq/L [facility] RY SERVICES Specimen Blood - Venous blood (substance) Performing Organization Address City/[facility]/ZIP Code Phon e Number [facility] [address] [place] [address] SERVICES (ABNORMAL) POCT GLUCOSE, INTERFACED (05/20/2021 20:31 EDT) Glucose, POC 178 (H) 70 - 100 [facility] mg/dL LABORATORY SERVICES HN LAB POC COMMENT Test Performed by [facility] [place] [employer] R (GLUCOSE) Nursing Services LABORATORY SERVICES Specimen Blood - Capillary blood (substance) Performing Organization Address [facility] Phon e Number [facility] [address] [place] [address] SERVICES (ABNORMAL) POCT GLUCOSE, INTERFACED (05/20/2021 17:44 EDT) Glucose, POC 216 (H) 70 - 100 [facility] mg/dL LABORATORY SERVICES HN LAB POC COMMENT Test Performed by [facility] Cannonball[employer] R (GLUCOSE) Nursing Services LABORATORY SERVICES Specimen Blood - Capillary blood (substance) Performing Organization Address [facility]/ZIP Code Phon e Number [facility] [address] [place] [address] SERVICES (ABNORMAL) POCT GLUCOSE, INTERFACED (05/20/2021 13:07 EDT) Glucose, POC 224 (H) 70 - 100 [facility] mg/dL LABORATORY SERVICES HN LAB POC COMMENT Test Performed by [facility] [employer] (GLUCOSE) Nursing Services LABORATORY SERVICES Specimen Blood - Capillary blood (substance) Performing Organization Address City/[facility]/ZIP [facility] Phon e Number [facility] [address] [place] [address] SERVICES MRSA PCR (05/20/2021 11:59 EDT) MRSA Result No Staphylococcus aureus [facility] detected by PCR LABORATORY SERVICES Specimen Swab - Entire naris (body structure) Performing Organization Address City/[facility]/ZIP Code Phon e Number [facility] [address] [place] [address] SERVICES (ABNORMAL) POCT GLUCOSE, INTERFACED (05/20/2021 7:18 EDT) Glucose, POC 205 (H) 70 - 100 [facility] mg/dL LABORATORY SERVICES HN LAB POC COMMENT Test Performed by [facility] [place] (GLUCOSE) Nursing Services LABORATORY SERVICES Specimen Blood - Capillary blood (substance) Performing Organization Address [facility] Phon e Number [facility] [address] [place] [address] SERVICES (ABNORMAL) GLUCOSE, SERUM (05/20/2021 4:24 EDT) Pathologist Sig nature Glucose 205 (H) 70 - 100 mg/dL [facility]ORAT ORY SERVICES Specimen Blood - Venous blood (substance) Performing Organization Address [facility] Phon e Number [facility] [address] [place] [address] SERVICES CREATININE (05/20/2021 4:24 EDT) Creatinine 0.55 0.52 - 1.04 [facility] mg/dL LABORATORY SERVICES eGFR 102Comment: eGFR >60 [facility] calculated using mL/min/1.73m2 LABORATORY SERVICES CKD-EPI equation for non- Americans. Multiply eGFR by 1.16 for patients. Specimen Blood - Venous blood (substance) Performing Organization Address [facility] Phon e Number [facility] [address] [place] [address] SERVICES BUN (05/20/2021 4:24 EDT) Pathologist Sig nature BUN 10 10 - 26 mg/dL [facility] RY SERVICES Specimen Blood - Venous blood (substance) Performing Organization Address [facility]/ZIP [facility] Phon e Number [facility] [address] [place] [address] SERVICES ELECTROLYTES (05/20/2021 4:24 EDT) Pathologist Sig nature Sodium 141 136 - 145 mmol/L [facility] AT[facility] SERVICES Potassium 4.1 3.5 - 5.0 mEq/L [facility] TORY SERVICES Chloride 103 96 - 110 mEq/L [facility] ORY SERVICES CO2 Total 28 22 - 32 mEq/L [facility] RY SERVICES Specimen Blood - Venous blood (substance) Performing Organization Address City/[facility]/ZIP Code Phon e Number [facility] [address] [place] [address] SERVICES (ABNORMAL) COMPLETE BLOOD COUNT (05/20/2021 4:24 EDT) Pathologist Sig nature WBC 7.32 4.00 - 12.40 K/cmm [facility] SERVICES RBC 3.78 (L) 3.86 - 5.04 M/cmm [facility] SERVICES Hemoglobin 10.5 (L) 11.6 - 15.2 gm/dL [facility] SERVICES HCT 32.4 (L) 34.9 - 44.4 % [facility] SERVICES MCV 86 81 - 98 fl [facility] SERVICES MCH 27.8 26.7 - 33.3 pg [facility] SERVICES MCHC 32.4 32.1 - 35.9 gm/dL [facility] SERVICES RDW-CV 13.7 <14.7 % [facility] SERVICES RDW-SD 43.0 <50.4 fl [facility] SERVICES PLT 297 141 - 377 K/cmm [facility] SERVICES MPV 9.4 (L) 9.5 - 12.7 fl [facility] SERVICES Specimen Blood - Venous blood (substance) Performing Organization Address City/[facility]/ZIP Code Phon e Number [facility] [address] [place] [address] SERVICES (ABNORMAL) POCT GLUCOSE, INTERFACED (05/20/2021 2:19 EDT) Glucose, POC 215 (H) 70 - 100 [facility] mg/dL LABORATORY SERVICES HN LAB POC COMMENT Test Performed by [facility] [employer] R (GLUCOSE) Nursing Services LABORATORY SERVICES Specimen Blood - Capillary blood (substance) Performing Organization Address City/State/ZIP Code Phon e Number [facility] [address] [place] [address] SERVICES (ABNORMAL) POCT GLUCOSE, INTERFACED (05/20/2021 0:09 EDT) Glucose, POC 310 (H) 70 - 100 [facility] mg/dL LABORATORY SERVICES HN LAB POC COMMENT Test Performed by [facility] [employer] (GLUCOSE) Nursing Services LABORATORY SERVICES Specimen Blood - Capillary blood (substance) Performing Organization Address City/State/ZIP Code Phon e Number [facility] [address] [place] [address] SERVICES (ABNORMAL) POCT GLUCOSE, INTERFACED (05/19/2021 22:38 EDT) Glucose, POC 260 (H) 70 - 100 [facility] mg/dL LABORATORY SERVICES HN LAB POC COMMENT Test Performed by [facility] [employer] (GLUCOSE) Nursing Services LABORATORY SERVICES Specimen Blood - Capillary blood (substance) Performing Organization Address City/State/ZIP Code Phon e Number [facility] [address] [place] [address] SERVICES (ABNORMAL) POCT GLUCOSE, INTERFACED (05/19/2021 20:14 EDT) Glucose, POC 248 (H) 70 - 100 [facility] mg/dL LABORATORY SERVICES HN LAB POC COMMENT Test Performed by [facility] [employer] (GLUCOSE) Nursing Services LABORATORY SERVICES Specimen Blood - Capillary blood (substance) Performing Organization Address City/[facility]/ZIP Code Phon e Number [facility] [address] [place] [address] SERVICES (ABNORMAL) POCT GLUCOSE, INTERFACED (05/19/2021 15:58 EDT) Glucose, POC 271 (H) 70 - 100 [facility] mg/dL LABORATORY SERVICES HN LAB POC COMMENT Test Performed by [facility] [employer]ball[employer] (GLUCOSE) Nursing Services LABORATORY SERVICES Specimen Blood - Capillary blood (substance) Performing Organization Address City/[facility]/ZIP Code Phon e Number [facility] [address] [place] [address] SERVICES (ABNORMAL) POCT GLUCOSE, INTERFACED (05/19/2021 13:36 EDT) Glucose, POC 301 (H) 70 - 100 [facility] mg/dL LABORATORY SERVICES HN LAB POC COMMENT Test Performed by [facility] [employer]ball[employer] R (GLUCOSE) Nursing Services LABORATORY SERVICES Specimen Blood - Capillary blood (substance) Performing Organization Address City/[facility]/ZIP Code Phon e Number [facility] [address] [place] [address] SERVICES (ABNORMAL) POCT GLUCOSE, INTERFACED (05/19/2021 10:52 EDT) Glucose, POC 168 (H) 70 - 100 [facility] mg/dL LABORATORY SERVICES HN LAB POC COMMENT Test Performed by [facility] (GLUCOSE) Nursing Services LABORATORY SERVICES Specimen Blood - Capillary blood (substance) Performing Organization Address City/[facility]/ZIP Code Phon e Number [facility] [address] [place] [address] SERVICES FL C-ARM RETROGRADE (05/19/2021 10:27 EDT) Specimen Narrative 05/19/2021 10:27 EDT This is a non-reportable exam. KIDNEY STONE ANALYSIS (05/19/2021 9:22 EDT) Stone Analysis Not Reported [facility] Interpretation SEE NOTE [facility] Comment: LABORATORIES RESULT: 100% Magnesium ammonium phosphate (struvite) Test Performed by: [facility] [address] [place] [address] Wafer Polishing Lead Worker: Gordo Lynne M.D. Ph.D.; CLIA# [id number] Source: Urethra [facility]ATORIES Specimen Calculus - Entire kidney (body structure ) Performing Organization Address City/[facility]/ZIP Code Phon e Number [facility] [address] [place] [address] (ABNORMAL) BACTERIAL CULTURE/SMEAR (05/19/2021 9:22 EDT) Organism ID Moderate Enterobacter cloacae complex (A) [facility] Comment: LABORATORY SERVICES Third generation cephalospor ins, such as ceftazidime, ceftriaxone, and cefpodoxime, should be avoided for treatment of this organism regardless of in vitro susceptibility. Organism ID Rare Enterococcus [facility] faecalis (A)Comment: For LABORATORY SERVI [facility] ampicillin susceptible enterococci, the preferred treatment is ampicillin (with an aminoglycoside for serious infections). Organism ID Few Vancomycin resistant [facility] Enterococcus faecium (A) LABORATORY SERVI JESSE Organism ID Rare Natty glabrata [facility] (A)Comment: This species LABORATORY [facility] has shown reduced susceptibility to Fluconazole (and other azoles) and some reduced susceptibility to Amphotercin B. Smear Neutrophils Present (A) [facility] LABORATORY SERVICES Smear Gram Negative Bacilli [facility] (A) LABORATORY SERVICES Specimen Fluid - Entire kidney (body structure) Organism Antibiotic Method Susceptibility Enterobacter cloacae complex Amikacin VITEK SUSCEPTIBILIT Y <=2 ug/mL: Susceptible Comment: This is an appended report. These results have been appended to a previously preliminary verif ied report. Enterobacter cloacae Ampicillin VITEK SUSCEPTIBILITY Resist ant complex Enterobacter cloacae Ampicillin Sulbactam VITEK SUSCEPTIBILITY R esistant complex Enterobacter cloacae Ciprofloxacin VITEK SUSCEPTIBILITY <=0.25 ug/mL: complex Susceptible Comment: This is an appended report. These results have been appended to a previously preliminary verif ied report. Enterobacter cloacae complex Ertapenem VITEK SUSCEPTIBILIT Y <=0.5 ug/mL: Susceptible Comment: This is an appended report. These results have been appended to a previously preliminary verif ied report. Enterobacter cloacae complex Gentamicin VITEK SUSCEPTIBILIT Y <=1 ug/mL: Susceptible Comment: This is an appended report. These results have been appended to a previously preliminary verif ied report. Enterobacter cloacae complex Meropenem VITEK SUSCEPTIBILIT Y <=0.25 ug/mL: Susceptible Comment: This is an appended report. These results have been appended to a previously preliminary verif ied report. Enterobacter cloacae Piperacillin VITEK SUSCEPTIBILITY <=4 ug /mL: complex Tazobactam Susceptible Comment: This is an appended report. These results have been appended to a previously preliminary verif ied report. Enterobacter cloacae complex Tobramycin VITEK SUSCEPTIBILIT Y <=1 ug/mL: Susceptible Comment: This is an appended report. These results have been appended to a previously preliminary verif ied report. Enterobacter Trimethoprim-Sulfamethoxazole VITEK SUSCEPTIBILI TY <=20 ug/mL: cloacae complex Susceptible Comment: This is an appended report. These results have been appended to a previously preliminary verif ied report. Enterococcus faecalis Ampicillin VITEK SUSCEPTIBILITY <=2 u g/mL: Susceptible Enterococcus faecalis Vancomycin VITEK SUSCEPTIBILITY 1 ug/ mL: Susceptible Vancomycin resistant Ampicillin VITEK SUSCEPTIBILITY >=32 u g/mL: Resistant Enterococcus faecium Vancomycin resistant Daptomycin VITEK SUSCEPTIBILITY 1 ug/m L: Susceptible Enterococcus faecium Comment: This is an appended report. These results have been appended to a previously preliminary verif ied report. Vancomycin resistant Vancomycin VITEK SUSCEPTIBILITY >=32 u g/mL: Resistant Enterococcus faecium Natty glabrata Fluconazole MICRO SUSCEPTIBILITY 2 ug/mL: S usceptible Dose Dependent Natty glabrata Micafungin MICRO SUSCEPTIBILITY <=0.008 ug /mL: Susceptible Performing Organization Address City/State/ZIP Code Phon e Number [facility] [address] [place] [id number] SERVICES EKG 12-LEAD (05/19/2021 8:24 EDT) Specimen Narrative [facility] EK - 05/19/2021 11:2 1 EDT ? [facility] ? Test Date: ?2021-05-19 Pat Name: ? GINGER BARRERA ?Department: ?? PREOP ? Room: ? OR Gender: ? Female ? 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 [id number] : ?1960 ? Requested By: ISRAEL STOCKTON Order Number: [id number] ? Nicholas MATT: ?? NICK MARTINEZ MD ? Measurements Intervals ?[place] ? Rate: ? 92 ? P: ?47 NH: ? 152 ?QRS: ?21 QRSD: ? 98 ? T: ?54 QT: ? 356 ? QTc: ?442 ? Interpretive Statements SINUS RHYTHM NONSPECIFIC ST & T-WAVE ABNORMALITY Compared to ECG 02/13/2015 03:12:55 Sinus tachycardia no longer present T-wave abnormality still present I reviewed the tracing and have either a greed or edited the findings in this report. Electronically Signed On 05-19-20 11:21:35 EDT by NICK MARTINEZ MD. Procedure Note Nick Martinez MD - 05/19/2021 [facility] r Test Date: 2021-05-19 Pat Name: GINGER BARRERA Department: [place] EOP Room: OR Gender: Female Roving Machine Operator: [id number] : 1960 Requested By: ISRAEL ORTIZ IN Order Number: [id number] Reading MD: Elfego MARTINEZ MD Measurements Intervals [place] Rate: 92 P: 47 NH: 152 QRS: 21 QRSD: 98 T: 54 QT: 356 QTc: 442 Interpretive Statements SINUS RHYTHM NONSPECIFIC ST & T-WAVE ABNORMALITY Compared to ECG 02/13/2015 03:12:55 Sinus tachycardia no longer present T-wave abnormality still present I reviewed the tracing and have either a greed or edited the findings in this report. Electronically Signed On 05-19-20 11:21:35 EDT by NICK MARTINEZ MD. Performing Organization Address City/State/ZIP Code Phon e Number [facility] EKG (ABNORMAL) POCT GLUCOSE, INTERFACED (05/19/2021 7:47 EDT) Glucose, POC 143 (H) 70 - 100 [facility] mg/dL LABORATORY SERVICES HN LAB POC COMMENT Test Performed by [facility] BENNETT [place] (GLUCOSE) Nursing Services LABORATORY SERVICES Specimen Blood - Capillary blood (substance) Performing Organization Address City/State/ZIP Code Phon e Number [facility] [address] [place] [address] SERVICES documented in this encounter Visit Diagnoses Diagnosis Staghorn calculus - Primary Calculus of kidney Right nephrolithiasis Bacteriuria Other nonspecific finding on examination of urine Multiple drug resistant organism (MDRO) culture positive Drug-drug interaction Unspecified adverse effect of unspecifie d drug, medicinal and biological substance Complication of other implanted genitour inary mesh, unspecified complication, subsequent encounter documented in this encounter Admitting Diagnoses Diagnosis Staghorn calculus Calculus of kidney Right nephrolithiasis documented in this encounter Administered Medications Inactive Administered Medications - up to 3 most recent administrations Medication Order MAR Action Action Date Dose Rate Site acetaminophen (TYLENOL) solution Given 05/19/2021 13:10 EDT 650 mg unit dose cup 650 mg 650 mg, oral, PRN, 1 dose, Starting on Maria Eugenia 05/19/21 at 1012, Until Maria Eugenia 05/19/21 at 1310, Pain, Routine, Recovery (only) acetaminophen (TYLENOL) suppository 650 mg 650 mg, rectal, EVERY 6 HOURS, First dose on Maria Eugenia at 1800, Until Discontinued, Routine acetaminophen (TYLENOL) tablet 1,000 mg Given 05/21/2021 10:26 EDT 1,000 mg 1,000 mg, oral, EVERY 6 HOURS, First dose on Maria Eugenia 05/19/21 at 1800, Until Discontinued, Routine Given 05/20/2021 20:45 EDT 1,000 mg Given 05/20/2021 16:30 EDT 1,000 mg aspirin chewable tablet 81 mg Given 05/21/2021 10:26 EDT 81 mg 81 mg, oral, DAILY, First dose on Maria Eugenia 05/19/21 at 1615, Until Discontinued, Routine Given 05/20/2021 9:44 EDT 81 mg Given 05/19/2021 16:26 EDT 81 mg buPROPion (WELLBUTRIN SR) SR tablet 450 mg Given 05/21/2021 10:26 EDT 450 mg 450 mg, oral, DAILY, First dose on Sun05/19/21 at 1615, Until Discontinued, Routine Given 05/20/2021 9:44 EDT 450 mg Given 05/19/2021 16:26 EDT 450 mg carbidopa-levodopa (SINEMET) 25-100 mg per Given 05/21/2021 13:0 3 EDT 1 Tablet tablet 1 Tablet 1 Tablet, oral, 4 TIMES DAILY, First dose on Sun05/19/21 at 1100, Until Discontinued, Routine Given 05/21/2021 10:26 EDT 1 Tablet Given 05/20/2021 20:46 EDT 1 Tablet cefpodoxime (VANTIN) tablet 200 mg Given 05/20/2021 11:54 EDT 200 mg 200 mg, oral, EVERY 12 HOURS, 10 doses, First dose on Sun05/20/21 at 1045, Last dose on Sun05/24/21 at 2100, Routine diclofenac (VOLTAREN) EC tablet 50 mg Given 05/20/2021 21:01 EDT 50 mg 50 mg, oral, ONCE, 1 dose, Starting on Sun05/20/21 at 2015, Until Sun05/20/21 at 2101, Routine docusate sodium (COLACE) capsule 100 mg Given 05/21/2021 10:26 EDT 100 mg 100 mg, oral, 2 TIMES DAILY, First dose on Sun05/19/21 at 2100, Until Discontinued, Routine Given 05/20/2021 20:45 EDT 100 mg Given 05/20/2021 9:44 EDT 100 mg ertapenem (INVANZ) 1,000 mg in sodium Given 05/21/2021 10:26 EDT 1,000 mg chloride (NS MBP) 50 mL IVPB 1,000 mg, intravenous, Administer over 30 Minutes, DAILY, 2 doses, First dose on Sun05/20/21 at 1600, Last dose on Sun05/21/21 at 0900, Controlled antibiotic, has ID approved? Yes, Type of Therapy: Definitive, Based on Cultures, Suspected Indication (Select all that apply): Other, Other Indication: Patient allergic to other available options, ID Consult: Yes, ID Consult Type: Formal ID Consult, ID Provider Consulted: Bobbi Womack MD, Routine Given 05/20/2021 16:30 EDT 1,000 mg heparin injection 5,000 Units Given 05/21/2021 10:26 EDT 5,000 Units 5,000 Units, subcutaneous, EVERY 12 HOURS, First dose on Maria Eugenia 05/19/21 at 2100, Until Discontinued, Routine Given 05/20/2021 20:46 EDT 5,000 Units Given 05/20/2021 9:44 EDT 5,000 Units insulin aspart U-100 (NOVOLOG FLEXPEN) Given 05/21/2021 13:21 ED T 6 Units injection subcutaneous, 3 TIMES DAILY WITH MEALS, First dose on Maria Eugenia 05/19/21 at 1345, Until Discontinued, Routine Given 05/21/2021 10:31 EDT 1 Units Given 05/20/2021 18:14 EDT 4 Units insulin aspart U-100 (NOVOLOG FLEXPEN) Given 05/19/2021 22:38 ED T 5 Units injection subcutaneous, AT BEDTIME, First dose on Maria Eugenia 05/19/21 at 2100, Until Discontinued, Routine lactated ringers (LR) infusion Restarted 05/19/2021 8:40 EDT at 30 mL/hr, 30 mL/hr, intravenous, CONTINUOUS, Starting on Maria Eugenia 05/19/21 at 0800, Until Maria Eugenia 05/19/21 at 1552, Routine, Preprocedure Continued by Anesthesia 05/19/2021 8:30 EDT 30 mL/hr New Bag 05/19/2021 7:54 EDT 30 mL/hr 30 mL/hr lactated ringers (LR) infusion New Bag 05/19/2021 11:08 EDT 75 mL/hr at 75 mL/hr, intravenous, PACU CONTINUOUS, Starting on Maria Eugenia 05/19/21 at 1030, Until Maria Eugenia 05/19/21 at 1443, Routine, Recovery (only) lactated ringers (LR) Rate Documented 05/21/2021 7:00 EDT 75 mL/hr 75 mL/hr infusion at 75 mL/hr, 75 mL/hr, intravenous, CONTINUOUS, Starting on Maria Eugenia 05/19/21 at 1115, Until 05/21/21 at 1853, Routine Rate Documented 05/21/2021 6:59 EDT 75 mL/hr 75 mL/hr New Bag 05/20/2021 13:18 EDT 75 mL/hr 75 mL/hr lamoTRIgine (LAMICTAL) tablet 50 mg Given 05/21/2021 10:26 EDT 50 mg 50 mg, oral, DAILY, First dose on Sun05/19/21 at 1615, Until Discontinued Given 05/20/2021 9:43 EDT 50 mg Given 05/19/2021 16:39 EDT 50 mg levothyroxine (SYNTHROID) tablet 125 mcg Given 05/21/2021 10:26 EDT 125 mcg 125 mcg, oral, DAILY, First dose on Sun05/19/21 at 1615, Until Discontinued, Routine Given 05/20/2021 9:44 EDT 125 mcg Given 05/19/2021 16:26 EDT 125 mcg linezolid in dextrose 5% (ZYVOX) IVPB 60 0 mg Given 05/19/2021 7:55 EDT 600 mg 600 mg, intravenous, Administer over 60 Minutes, PRE-OP ONCE, 1 dose, On Sun05/19/21 at 0800, Routine, Preprocedure linezolid in dextrose 5% (ZYVOX) IVPB 60 0 mg Given 05/19/2021 22:25 EDT 600 mg 600 mg, intravenous, Administer over 60 Minutes, EVERY 12 HOURS, 2 doses, First dose on Sun05/19/21 at 2100, Last dose on Sun05/20/21 at 0900, Routine mirtazapine (REMERON) tablet 15 mg Given 05/20/2021 20:45 EDT 15 mg 15 mg, oral, AT BEDTIME, First dose on Sun05/19/21 at 2100, Until Discontinued, Routine Given 05/19/2021 22:20 EDT 15 mg ondansetron (PF) (ZOFRAN) injection 4 mg Given 05/20/2021 16:30 EDT 4 mg 4 mg, intravenous, EVERY 4 HOURS PRN, Starting on Sun05/19/21 at 1552, Until 05/21/21 at 1853, Nausea, Routine ondansetron (ZOFRAN-ODT) disintegrating tablet 4 mg 4 mg, oral, EVERY 4 HOURS PRN, Starting on Sun05/19/21 at 1552, Until 05/21/21 at 1853, Nausea, Routine phenazopyridine (PYRIDIUM) 100 mg tablet 1 dose, Starting on Sun05/19/21 at 1304, Until 04/25 at 1311 phenazopyridine (PYRIDIUM) tablet 200 mg Given 05/20/2021 16:30 EDT 200 mg 200 mg, oral, 3 TIMES DAILY PRN, 9 doses, Starting on Sun05/19/21 at 1303, Until 05/21/21 at 1853, Pain, Routine Given 05/19/2021 23:05 EDT 200 mg Given 05/19/2021 13:11 EDT 200 mg promethazine (PHENERGAN) suppository 12. 5 mg 12.5 mg, rectal, EVERY 6 HOURS PRN, Starting on Sun at 1552, Until 05/21/21 at 1853, Nausea, Routine promethazine (PHENERGAN) tablet 12.5 mg Given 05/21/2021 11:10 EDT 12.5 mg 12.5 mg, oral, EVERY 6 HOURS PRN, Starting on Sun05/19/21 at 1552, Until 05/21/21 at 1853, Nausea, Routine Given 05/20/2021 20:46 EDT 12.5 mg QUEtiapine (SEROQUEL) tablet 100 mg Given 05/21/2021 13:03 EDT 100 mg 100 mg, oral, 3 TIMES DAILY, First dose on Sun05/19/21 at 1400, Until Discontinued, Routine Given 05/21/2021 10:26 EDT 100 mg Given 05/20/2021 20:46 EDT 100 mg simethicone (MYLICON) chewable tablet 80 mg Given 05/20/2021 20:45 EDT 80 mg 80 mg, oral, EVERY 6 HOURS PRN, Starting on Sun05/20/21 at 1958, Until 05/21/21 at 1853, Flatulence, Routine traZODone (DESYREL) tablet 25 mg Given 05/21/2021 10:27 EDT 25 mg 25 mg, oral, 2 TIMES DAILY, First dose on Sun05/19/21 at 2100, Until Discontinued, Routine Given 05/20/2021 20:45 EDT 25 mg Given 05/20/2021 9:44 EDT 25 mg documented in this encounter Active and Recently Administered Medications Times are shown in EDT. Scheduled Medication Order 05/19/2021 05/20/2021 05/21/2021 acetaminophen (TYLENOL) suppository 650 mg(Linked Grou p 1) 1823 (See Alternative - Provider: Israel Em RN)2306 (See Alternative - Provider: Noemy Leavitt RN) 0943 (See Alternative - Provider: Rajesh Patrick RN)1630 (See Alternative - Provider: Rajesh Patrick RN)2045 (See Alternative - Provider: Rock Brooks RN) 0222 (See Alternative - Provider: Rock Brooks RN)1026 (See Alternative - Provider: Rajesh Patrick RN)1630 (Canceled Entry - Provider: Batch Job User Admin - Comment: Automatically canceled at discontinue of medication order) 650 mg, rectal, EVERY 6 HOURS, First dos e on Maria Eugenia 05/19/21 at 1800, Until Discontinued, Routine acetaminophen (TYLENOL) tablet 1,000 mg(Linked Group 1 ) 1823 (Given - Provider: Israel Em RN)2306 (Given - Provider: Noemy Leavitt RN) 0943 (Given - Provider: Rajesh Partick RN)1630 (Given - Provider: Rajesh Patrick RN)204 (Given - Provider: Rock Brooks RN) 0222 (Not Given - Provider: Rock Brooks RN - Reason: Patient/family refused)1026 (Given - Provider: Rajesh Patrick RN)1630 (Canceled Entry - Provider: Batch Job User Admin - Comment: Automatically ca nceled at discontinue of medication order) 1,000 mg, oral, EVERY 6 HOURS, First dos e on Maria Eugenia 05/19/21 at 1800, Until Discontinued, Routine aspirin chewable tablet 81 mg 1626 (Given - Provider: Israel carter RN) 0944 (Given - Provider: Rajesh Patrick RN) 1026 (Given - Provider: Rajesh Patrick RN ) 81 mg, oral, DAILY, First dose on Maria Eugenia at 1615, Until Discontinued, Routine buPROPion (WELLBUTRIN SR) SR tablet 450 mg 162 (Given - Provider: Israel Em RN) 0944 (Given - Provider: Rajesh Patrick RN) 1026 (Given - Provider: Rajesh Patrick RN) 450 mg, oral, DAILY, First dose on Sun at 1615, Until Discontinued, Routine carbidopa-levodopa (SINEMET) 25-100 mg per tablet 1 Ta blet 1107 (Given - Provider: Adriane Medellin RN)1626 (Given - Provider: Israel Em RN)2220 (Given - Provider: Noemy Leavitt RN) 0944 (Given - Provider: Rajesh Patrick RN )1308 (Given - Provider: Rajesh Patrick RN)1813 (Given - Provider: Rajesh Patrick RN)2046 (Given - Provider: Rock Brooks RN) 1026 (Given - Provider: Rajesh Patrick RN)1303 (Given - Provider: Rajesh Patrick RN)1700 (Canceled Entry - Provider: Batch Job User Admin - Comment: Automatically canceled at discontinue of medication order) 1 Tablet, oral, 4 TIMES DAILY, First dos e on Sun05/19/21 at 1100, Until Discontinued, Routine ceFAZolin (ANCEF) syringe 2 g (COMPLETED) 08 (Given - Provider: Rinku Bunn MD) 2 g, intravenous, Administer over 10 Min utes, PRE-OP ONCE, 1 dose, On Sun05/19/21 at 0745, Routine cefpodoxime (VANTIN) tablet 200 mg (CANCELED) 1154 (Given - Provider: Rajesh Patrick RN) 200 mg, oral, EVERY 12 HOURS, 10 doses, First dose on Sun05/20/21 at 1045, Last dose on Sun05/24/21 at 2100, Routine diclofenac (VOLTAREN) EC tablet 50 mg (COMPLETED) 2100 (Given - Provider: Rock Brooks RN) 50 mg, oral, ONCE, 1 dose, Starting on 05/20/21 at 2015, Until Sun05/20/21 at 210, Routine docusate sodium (COLACE) capsule 100 mg 222 (Given - Provider: Noemy Leavitt RN) 0944 (Given - Provider: Rajesh Patrick RN )2044 (Given - Provider: Rock Brooks RN) 1026 (Given - Provider: Rajesh Patrick RN ) 100 mg, oral, 2 TIMES DAILY, First dose on Sun05/19/21 at 2100, Until Discontinued, Routine ertapenem (INVANZ) 1,000 mg in sodium chloride (NS MBP) 50 m L IVPB (COMPLETED) 1630 (Given - Provider: Rajesh Patrick RN) 1026 (Given - Provider: Rajesh Patrick RN) 1,000 mg, intravenous, Administer over 3 0 Minutes, DAILY, 2 doses, First dose on Sun05/20/21 at 1600, Last dose on Sun05/21/21 at 0900, Controlled antibiotic, has ID approved? Yes, Type of Therapy: Defi nitive, Based on Cultures, Suspected Ind ication (Select all that apply): Other, Other Indication: Patient allergic to other available options, ID Consult: Yes, ID Consult Type: Formal ID Consult, ID Provider Consulted: Bobbi Womack MD, Routine heparin injection 5,000 Units 2220 (Given - Provider: Noemy Leavitt RN) 0944 (Given - Provider: Rajesh Patrick RN)2045 (Given - Provider: Rock Brooks RN) 1026 (Given - Provider: Rajesh Patrick RN) 5,000 Units, subcutaneous, EVERY 12 HOUR S, First dose on Sun05/19/21 at 2100, Until Discontinued, Routine insulin aspart U-100 (NOVOLOG FLEXPEN) injection 1401 (Given - Provider: Adriane Medellin RN)1823 (Given - Provider: Israel Em RN) 0803 (Given - Provider: Betina Campos RN)1309 (Given - Provider: Rajesh Patrick RN)1814 (Given - Provider: Rajesh Patrick, XIOMARA) 1031 (Given - Provider: Rajesh Patrick RN )1321 (Given - Provider: Rajesh Patrick RN - Comment: fs [phone])1700 (Canceled Entry - Provider: Batch Job User Admin - Comment: Automatically canceled at discontinue of medication order) subcutaneous, 3 TIMES DAILY WITH MEALS, First dose on Sun05/19/21 at 1345, Until Discontinued insulin aspart U-100 (NOVOLOG FLEXPEN) injection 2238 (Given - Provider: Noemy Leavitt RN - Comment: fsbg 260) 2045 (Not Given - Provider: Rock Brooks RN - Reason: Order parameters not met) subcutaneous, AT BEDTIME, First dose on Sun05/19/21 at 2100, Until Discontinued lamoTRIgine (LAMICTAL) tablet 50 mg 1639 (Given - Provider: Israel Em RN) 0943 (Given - Provider: Rajesh Patrick RN) 1026 (Given - Provider: Rajesh Patrick RN ) 50 mg, oral, DAILY, First dose on Sun05/19/21 at 1615, Until Dis continued levothyroxine (SYNTHROID) tablet 125 mcg 1626 (Given - Provi leela: Israel Em RN) 0944 (Given - Provider: Rajesh Patrick RN) 102 (Given - Provider: Rajesh Patrick RN) 125 mcg, oral, DAILY, First dose on Sun05/19/21 at 1615, Until Discontinued, Routine linezolid in dextrose 5% (ZYVOX) IVPB 600 mg (COMPLETE D) 0755 (Given - Provider: Araceli Tellez RN) 600 mg, intravenous, Administer over 60 Minutes, PRE-OP ONCE, 1 dose, On Sun05/19/21 at 0800, Routine, Preprocedure linezolid in dextrose 5% (ZYVOX) IVPB 600 mg (CANCELED ) 2225 (Given - Provider: Noemy Leavitt RN) 1154 (Not Given - Provider: Rajesh Patrick RN - Reason: Other - Comment: MD at bedside and gave verbal order to not give this medication since it interacts with other meds) 600 mg, intravenous, Administer over 60 Minutes, EVERY 12 HOURS, 2 doses, First dose on Sun05/19/21 at 2100, Last dose on Sun05/20/21 at 0900, Routine mirtazapine (REMERON) tablet 15 mg 2220 (Given - Provi leela: Noemy Leavitt RN) 2044 (Given - Provider: Rock Brooks RN) 15 mg, oral, AT BEDTIME, First dose on 05/19/21 at 2100, Until Discontinued, Routine QUEtiapine (SEROQUEL) tablet 100 mg 1400 (Given - Prov ider: Adriane Medellin RN)1626 (Given - Provider: Israel Em RN)2220 (Given - Provider: Noemy Leavitt RN) 0944 (Given - Provider: Rajesh Patrick RN)1308 (Given - Provider: Rajesh Patrick, XIOMARA)2046 (Given - Provider: Rock Brooks RN) 1026 (Given - Provider: Rajesh Patrick RN)1303 (Given - Provider: Rajesh Patrick RN) 100 mg, oral, 3 TIMES DAILY, First dose on Maria Eugenia 05/19/21 at 1400, Until Discontinued, Routine traZODone (DESYREL) tablet 25 mg 2219 (Given - Provider: Jose Leavitt RN) 0944 (Given - Provider: Rajesh Patrick RN)204 (Given - Provider: Rock Brooks RN) 1027 (Given - Provider: Rajesh Patrick RN ) 25 mg, oral, 2 TIMES DAILY, First dose o n Maria Eugenia 05/19/21 at 2100, Until Discontinued, Routine Continuous Medication Order 05/19/2021 05/20/2021 05/21/2021 lactated ringers (LR) infusion (CANCELED) 0754 (New Ba g - Provider: Araceli Tellez RN)0830 (Continued by Anesthesia - Provider: Kam Yates MD)0839 (Paused - Provider: Rinku Bunn MD - Comment: Switch to gravity)0840 (Restarted - Provider: Rinku Bunn MD) at 30 mL/hr, 30 mL/hr, intravenous, CONT INUOUS, Starting on Maria Eugenia 05/19/21 at 0800, Until Maria Eugenia 05/19/21 at 1552, Routine, Preprocedure 1040 (Anesthesia Volume Adjustment - Provider: Rinku Bunn MD) lactated ringers (LR) infusion (CANCELED) 1108 (New Ba g - Provider: Adriane Medellin RN) at 75 mL/hr, intravenous, PACU CONTINUOU S, Starting on Maria Eugenia 05/19/21 at 1030, Until Maria Eugenia 05/19/21 at 1443, Routine, Recovery (only) lactated ringers (LR) infusion 2225 (IV Resume - Provider: Tyree Brooks, XIOMARA) 0800 (Rate Documented - Provider: Rajesh Patrick RN)1318 (New Bag - Provider: Rajesh Patrick RN) 0659 (Rate Documented - Provider: Rajesh Patrick, XIOMARA)0700 (Rate Documented - Provider: Rajesh Patrick RN) at 75 mL/hr, 75 mL/hr, intravenous, CONT INUOUS, Starting on Maria Eugenia 05/19/21 at 1115, Until 05/21/21 at 1853, Routine PRN Medication Order 05/19/2021 05/20/2021 05/21/2021 acetaminophen (TYLENOL) solution unit dose cup 650 mg (COMPLETED) 1310 (Given - Provider: Adriane Medellin RN) 650 mg, oral, PRN, 1 dose, Starting on T hu 05/19/21 at 1012, Until Discontinued, Pain, Routine, Recovery (only) dextrose 50 % solution 12.5 g 12.5 g (25 mL), intravenous, PRN, Starti ng on Maria Eugenia 05/19/21 at 1552, Until 05/21/21 at 1853, Low Blood Sugar, Routine diphenhydrAMINE (BENADRYL) elixir 12.5 mg 12.5 mg, oral, EVERY 6 HOURS PRN, Starti ng on Maria Eugenia 05/19/21 at 1552, Until 05/21/21 at 1853, Itching, Routine glucagon injection 1 mg 1 mg, intramuscular, PRN, Starting on Th u 05/19/21 at 1552, Until 05/21/21 at 1853, Other, Low blood sugar, Routine melatonin tablet 3 mg 3 mg, oral, AT BEDTIME PRN, Starting on Maria Eugenia 05/19/21 at 1552, Until 05/21/21 at 1853, Other, Sleep, Routine ondansetron (PF) (ZOFRAN) injection 4 mg(Linked Group 2) 1630 (Given - Provider: Rajesh Patrick RN) 4 mg, intravenous, EVERY 4 HOURS PRN, St arting on Maria Eugenia 05/19/21 at 1552, Until 05/21/21 at 1853, Nausea, Routine ondansetron (ZOFRAN-ODT) disintegrating tablet 4 mg(Linked G roup 2) 163 (See Alternative - Provider: Rajesh Patrick, XIOMARA) 4 mg, oral, EVERY 4 HOURS PRN, Starting on Maria Eugenia 05/19/21 at 1552, Until 05/21/21 at 1853, Nausea, Routine phenazopyridine (PYRIDIUM) tablet 200 mg 200 mg, oral, 3 TIMES DAILY PRN, 9 doses , Starting on Maria Eugenia 05/19/21 at 1552, Until 05/21/21 at 1853, Pain, Routine phenazopyridine (PYRIDIUM) tablet 200 mg 1311 (Given - Provider: Adriane Medellin, XIOMARA)2305 (Given - Provider: Noemy Leavitt RN) 1630 (Given - Provider: Rajesh Patrick RN) 200 mg, oral, 3 TIMES DAILY PRN, 9 doses , Starting on Maria Eugenia 05/19/21 at 1303, Until 05/21/21 at 1853, Pain, Routine promethazine (PHENERGAN) suppository 12.5 mg(Linked Group 3) 2045 (See Alternative - Provider: Rock Brooks RN) 1110 (See Alternative - Provider: Gi Metcalf, XIOMARA) 12.5 mg, rectal, EVERY 6 HOURS PRN, Star ting on Sun05/19/21 at 1552, Until 05/21/21 at 1853, Nausea, Routine promethazine (PHENERGAN) tablet 12.5 mg(Linked Group 3) 2045 (Given - Provider: Rock Brooks RN) 111 (Given - Provider: Gi Metcalf, XIOMARA) 12.5 mg, oral, EVERY 6 HOURS PRN, Starti ng on Sun05/19/21 at 1552, Until 05/21/21 at 1853, Nausea, Routine simethicone (MYLICON) chewable tablet 80 mg 2044 (Given - Provider: Rock Brooks RN) 80 mg, oral, EVERY 6 HOURS PRN, Starting on Sun05/20/21 at 1958, Until 05/21/21 at 1853, Flatulence, Routine Linked Groups Order Group 1: acetaminophen (TYLENOL) tablet 1,000 mgJump to med 1,000 mg, oral, EVERY 6 HOURS, First dos e on Maria Eugenia 05/19/21 at 1800, Until Discontinued, Routine Or acetaminophen (TYLENOL) suppository 650 mgJump to med 650 mg, rectal, EVERY 6 HOURS, First dos e on Maria Eugenia 05/19/21 at 1800, Until Discontinued, Routine Group 2: ondansetron (PF) (ZOFRAN) injection 4 mgJump to med 4 mg, intravenous, EVERY 4 HOURS PRN, St arting on Maria Eugenia 05/19/21 at 1552, Until 05/21/21 at 1853, Nausea, Routine Or ondansetron (ZOFRAN-ODT) disintegrating tablet 4 mgJump to med 4 mg, oral, EVERY 4 HOURS PRN, Starting on Maria Eugenia 05/19/21 at 1552, Until 05/21/21 at 1853, Nausea, Routine Group 3: promethazine (PHENERGAN) tablet 12.5 mgJump to med 12.5 mg, oral, EVERY 6 HOURS PRN, Starti ng on Maria Eugenia 05/19/21 at 1552, Until 05/21/21 at 1853, Nausea, Routine Or promethazine (PHENERGAN) suppository 12.5 mgJump to med 12.5 mg, rectal, EVERY 6 HOURS PRN, Star ting on Maria Eugenia 05/19/21 at 1552, Until 05/21/21 at 1853, Nausea, Routine documented in this encounter Orders Medications Ordered That Might Not Have Count Last Ord ered Date First Ordered Date Been Administered acetaminophen (TYLENOL) suppository 650 mg 05/19 acetaminophen (TYLENOL) tablet 650 mg 1 05/19/2021 atropine 0.1 mg/mL syringe 0.5 mg 1 05/19/2021 ceFAZolin (ANCEF) syringe 2 g 1 05/19/2021 dextrose 50 % solution 12.5 g 2 05/19/2021 diphenhydrAMINE (BENADRYL) elixir 12.5 mg 1 2020 fentaNYL citrate (PF) injection 25-50 mcg 1 2020 glucagon injection 1 mg 2 05/19/2021 HYDROmorphone (DILAUDID) tablet 2-4 mg 1 ketOROLAC (TORADOL) injection 15 mg 1 05/19/2021 lidocaine (PF) 10 mg/mL (1 %) injection 2 1 2020 mg melatonin tablet 3 mg 1 05/19/2021 metoclopramide (REGLAN) injection 10 mg 1 05/19/20 naloxone (NARCAN) injection 0.2 mg 1 05/19/2021 ondansetron (PF) (ZOFRAN) injection 4 mg 1 ondansetron (ZOFRAN-ODT) disintegrating 1 05/19/20 tablet 4 mg phenazopyridine (PYRIDIUM) tablet 200 mg 1 021 promethazine (PHENERGAN) suppository 12.5 1 2020 mg linezolid in dextrose 5% (ZYVOX) IVPB 600 1 2020 mg Procedures Count Last Ordered Date First Ordered Date IMPLANT RECORD - SCANNED 2 05/26/2021 ECG REPORT - SCANNED 2 05/25/2021 05/19/2021 Nursing Count Last Ordered Date First Ordered Date NOTIFY TICKET PULLER 1 05/19/2021 Discharge Count Last Ordered Date First Ordered Date DISCHARGE PATIENT 1 05/21/2021 documented in this encounter Additional Health Concerns Infection Onset Date Last Indicated Resolved Time MRSAComment: IP note: risk factors - DM, impaired mobility, shelter resident 02/25/2015 02/25/2015 Pos nares 02/25/2015 Neg nares 11/02/18 Neg nares 12/13/18 N [place] 12/13/18 VREComment: IP note: 05/19/2021 05/19/2021 11/19/2021 22:15 EST Pos urine 05/12/21 Pos kidney fluid 05/19/21 Tamara Castro RN 05/24/21 documented as of this encounter Care Teams Person Investigator Relationship Specialty Start Date End Date Pina Taylor MD PCP - General 04/21/21 10/03/21 [id number] [place] [id number] documented as of this encounter
--- OUTSIDE RECORDS SUMMARY | 2022-03-17 00:35 | XMS_ITS | Encounter Summary ---
:1960 [facility] Address [address] [place] [address] Care Team Providers Name Role Phone Pina Taylor MD Primary Care Provider Reason for Visit Auth/Cert Specialty Diagnoses / Procedures Referred By Contact Refer red To Contact Diagnoses Staghorn calculus Procedures NM CYSTO/URETERO W/LITHOTRIPSY &INDWELL STENT INSRT Cystoscopy, right ureteroscopy with laser lithotrispy, right ureteral stent exchange Referral ID Status Reason Start Date Expiration Date Visits Requ ested Visits Authorized [id number] 1 1 Encounter Details Date Type Department Care Team Description 05/19/2021 Surgery [facility] [place] Reji Foster Cystoscopy, right [address] Anival Fletcher [place] [address] 111 [facility] lithotrispy, right [phone] [facility], [facility] s tent exchange Pav[facility], Level 5 and removal of urethral [place] foreign body. [[id number] (CPT??)] [phone] (Wo rk) Surgery Details Date/Time Status Location OR Service Patient Class Case Class Case Trauma Type Case? 05/19/21 0825 Posted [facility] OR [facility] - Outpatient Elective Surgery Panel 1 Procedure LRB Anes Op Region Wound Class Commen ts Cystoscopy, right Right General Ureter Class II/ Clean ureteroscopy with laser Contaminated lithotrispy, right ureteral stent exchange and removal of urethral foreign body. Surgeon Surgeon Role Service Panel Reji Foster MD Primary Urology 1 Kam Yates MD Resident - Assisting Urology 1 Kenna Colby MD Assisting Gynecology 1 Special Needs Thulium Stone Laser Social History Tobacco Use Types Packs/Day Years [...] Sign Reading Time Taken Comments Blood Pressure 87/62 05/19/2021 0712 EDT Pulse - - Temperature 37 ??C (98.6 ??F) 05/19/2021 0712 EDT Respiratory Rate 16 05/19/2021 0712 EDT Oxygen Saturation 95% 05/19/2021 0712 EDT Inhaled Oxygen Concentration - - Weight [...] Administered Date(s) Administered ??? Covid-19 mRNA Vaccine ([employer] COVID-19) PF 0.3 ml IM (12 yrs+) 09/29/2020, 10/19/2020 ??? Influenza (split) 12/09/2010 ? ? Pneumococcal Polysaccharide (PPSV23) Vaccine (PNEUMOVAX-23) =>2YO SQ/IM 12/09/2010 Transition of Care Plans Condition at Discharge Good Assessment at Discharge Vital signs: No data found. Results Pending at Discharge Test results still pending from this admission Procedure Component Value Units Date/Time Bacterial Culture/Smear, Other [[id number]] (Abnormal) (Susceptibility) Collected: 05/19/21921 Lab Status: Preliminary result Specimen: Fluid from Kidney Updated: 05/23/21 1512 Organism ID Moderate Enterobacter cloacae complex Rare Enterococcus faecalis Few Vancomycin resistant Enterococcus faecium Rare Natty glabrata Smear Neutrophils Present Gram Negative Bacilli Kidney Stone Analysis [[id number]] Collected: 05/19/21921 Lab Status: In process Specimen: [...] Visit with Reji Foster MD, Cystoscopy Scope [facility] Urology [facility] (--) [address] [facility] [address] ANT DYER MD 05/24/2021 8:01 documented in this encounter Discharge Instructions Discharge Instr - AVS First Ant Ontiveros MD - 05/21/2021 15:44 EDT Diet: Resume [...] degrees F Urinary retention Appointments: Please see Reji Foster* in 1-2 weeks for stent removal in the office. Our office will call in the next few days to confirm an appointment time. If you do not hear from us in one week, please call [facility], . Future Appointments Date Time [...] you. It is important to keep taking ikrk-swj-fnvceng Tylenol (acetaminophen) and ibuprofen unless your doctor [...] more than 6 hours after stent removal [facility]: documented in this encounter Medications [...] Code Departure Means Destination Home or Self Half-Way documented in this encounter Progress Notes Surekha Walls RN - 05/21/2021 1224 EDT CASE MANAGEMENT UPDATE: Patient pending discharge return to [facility] in [place]. Will be transported via [facility] @ 1135. Nursing to please call report to XIOMARA Jalloh @ [phone]. Will need transition of care faxed to [phone]. Ambulance form faxed to be faxed to [facility] [id number]. [place] Stacey aware. Will need updated COLST - MD Shubham Dyer aware. Surekha Walls RN [facility] Dept Pg 0585 Ant Dyer MD - 05/21/2021 1200 EDT [...] 297 290 BMP Recent Labs 05/20/21 0424 05/21/21 0426 CREATININE 0.55 0.47* BUN 10 9* NA [...] ??? Abx: Ertapenem o ID Consult ??? VP PRODUCTION Meds o Carbidopa-levodopa, Bupropion, ASA, lamotrigine, levothyroxine, Mirtazapine, Quetiapine, Trazodone o Sliding scale insulin ??? Diet: Carb consistent o Bowel regimen ordered ??? Activity as tolerated, encourage ambulation ??? Incentive spirometry ??? DVT Ppx: Heparin BID Dispo Planning ??? PATI: Today likely, back to [facility], needs ambulance. ??? Follow up: Needs stent removal follow up Future Appointments Date Time Provider Department Center 05/27/2021 15:45 Reji Foster MD EP5 Uro None ANT DYER MD 05/21/2021 12:00 Weekdays from 7AM-5PM page the Urology Service Pager #[phone] with questions. Nights and weekends, please page through PAS. Associated attestation - Luis Kiaser MD - 05/22/2021 0956 EDT Attestation statement: [...] ??? Abx: Linezolid o ID Consult ??? VP PRODUCTION Meds o Carbidopa-levodopa, Bupropion, ASA, lamotrigine, levothyroxine, [...] from 7AM-5PM page the Urology Service Pager #[phone] with questions. Nights and weekends, please page [...] sugars and adjust diabetic medications as needed. Shyam Simpson, MS RD CD Pager: [phone] Bobbi Womack MD - 05/20/2021 1207 EDT [...] vanco sensitive enterococcus. Treated with fosfomycin at [facility]. Received cefazolin and linezolid pre-op. Linezolid has [...] of Anxiety, Bipolar affective disorder ([facility]), Community acquired pneumonia, Decreased motor strength, Decreased sensation, Diabetes mellitus ([facility]), Diabetes mellitus, type 2 ([facility]), DM (diabetes mellitus screen), Edentulous, Headache(784.0), History of general anesthesia, History of kidney stones, HTN (hypertension), Hypothyroidism, Lumbar disc disease, Memory deficit, Morbid obesity ([facility]), Pain, Parkinson disease ([facility]), Parkinsonism ([facility]), Patient unable to exercise, Peripheral neuropathy, Seizures ([facility]), Smoking, Static en cephalopathy, Stroke ([facility]), Tardive dyskinesia, and VRE (vancomycin- resistant Enterococci). [...] with rare growth of another morphology on [employer]EARCH [employer]OD TECHNOLOGIST plate, g/s in process. Other: Radiological Studies: [...] for repeat infection thus no indication for mcfp suppression. Pre op with growth of VRE, [...] RN - 05/19/2021 1133 EDT [facility]ed [facility] apprised the facility that patient would not be discharged back to facility today. Attempt to speak with dry pan charger and call was disconnected. Attempt recall unable to connect at this time. documented in this encounter OR Notes OR Surgeon - Reji Foster MD - 05/19/2021 0618 EDT OPERATIVE REPORT SERVICE DATE: 05/19/2021 SURGEON: Reji Foster MD NUT PROCESSING SUPERVISOR: Kam Yates MD and Kenna Colby MD [...] sent for analysis. FOREIGN MATERIAL RETAINED: A 6-Bahamian x 24 cm double-J ureteral stent on the right side. INDICATIONS: Ginger Barrera is a 61-year-old female with history of kidney stones requiring percutaneous nephrolithotomy, both in 2019, and also recently in April 2021 due [...] back to the operating theater where a [facility] safety checks part 1 was performed. The patient was then given an appropriate course of antibiotics, Venodynes were placed, and the patient was induced with general endotracheal anesthesia. The patient was then placed in dorsal lithotomy position, prepped and draped in standard sterile fashion. A [facility] safety checklist part 2 was performed, verifying patient, procedure, and laterality. We then proceeded to attempt to enter her bladder and noted a large calcified mass justdistal to the urethra at the urethral opening in the left side of the vagina. We then proceeded to enter her bladder atraumatically using a 22.5-Bahamian cystoscopic sheath and a 30-degree telescopic lens. [...] our Bentson wire, a 12 x 14 Bahamian x 35 mm ureteral access sheath with [...] and over our Sensor wire, placed a 6-Bahamian x 24 cm double-J ureteral stent, ensuring [...] / Kam Yates MD / CD Confirmation: [id number] Dictation ID: [id number] cc: documented in this encounter Miscellaneous Notes [...] compiled for discharge. Report called to [facility]. IVs and ID band removed. R - Patient questions reviewed and addressed prior to discharge. Patient denied pain. Patient left the unit in a stretcher via ambulance in stable condition. No distress noted. 05/21/2021 1650 RAJESH PATRICK RN lan of Stephanie - Rock Brooks RN - 05/21/2021 0404 EDT Patient is [...] to be relieved with pyridium and tylenol; MD notified. Purewick in place. Action: Hourly checks completed and medications per MAR. Purewick changed x2. Linens changed as needed. Abx per orders. Communicated with team regarding changes to medication orders and patient's ongoing pain. Response: Patient is resting at this time. Tolerates her meals well. Will continue to monitor and assess. RAJESH PATRICK RN 05/20/2021 18:32 lan of Alma Hawkins - 05/20/2021 1347 EDT Initial Case Management/Social Work Assessment and Discharge Plan/Readmission Risk Assessment REASON FOR ADMISSION: Staghorn calculus Patient understands reason for admission: Yes PATIENT INFO VERIFIED: PCP, Contact Info, Address LIVING ARRANGEMENTS AND ACCESSIBILITY ISSUES: Living Arrangements: group home Care Facility Name: [facility] [place] Levels: 1 Stairs to enter: 0 Handicap access: Elevator, Ramp Bathroom located on bedroom level?: Yes What in home social supports are available to the patient? Friends / neighbors, Home care staff Is 24/7 care available? Yes ADVANCED DIRECTIVES, POA &/or COLST IN PLACE: Healthcare Directive: No, patient does not have advance directive for healthcare treatment Type of Healthcare Directive: None Copy in Chart: Other (Comment) Information Provided on Healthcare Directives: No Information on Healthcare Directives Requested: No DIRECTIVES FOR FINANCES: Directive For Finances: No TRANSPORTATION: Transportation: Ambulance Patient expects to be discharged to: [facility] CULTURAL, ADVENT and/or LANGUAGE factors affecting health care/discharge planning: [...] None Community Services: (P) Home health, [facility], [facility]-none of one time a week Will you live with someone who will care for you?: (P) Yes RAPT Tool Score: (P) 9 Patient expects to be discharged to: [facility] SBIRT: SASQ (Single Alcohol Screening Question) How [...] Health Services: (P) None DME Provider: Pharmacy: [id number] - [place], [place] - [address] [facility] [id number] [facility] - [place], [place] - [address] [place] [id number] Home Health: Other: (P) Other (enter in comments) POST HOSPITAL TRANSITION PLAN: Patient with kidney stones, came in for procedure to remove staghorn calculus. The surgery was successful and patient may discharge later this afternoon or tomorrow. She currently lives at the [facility] in [place] where she has resided for the past 4 years, she is nonambulatory and transfers by ambulance. Upon discharge case management will assist with arranging ambulance transport. Staff nurse may call report to facility at [phone] ALMA LYNN 05/20/2021 13:47 lan of Care - Amber Castro RN - 05/20/2021 1016 EDT Patient has a history of MRSA (click on Inf: MRSA in PRISM banner for details) and a history of VRE (click on Inf: VRE in Epic banner for details). Maintain contact precautions. Do not cohort at this time. Please call Infection Prevention with questions [phone]. lan of Care - Israel Em RN - 05/19/2021 8724 EDT Admission Note D - This is [...] EKG necessary unless further chest pain Continue VP PRODUCTION meds (except metformin) SSI Linezolid 24 hours. Kam Yates MD 05/19/2021 10:31 documented in this encounter Plan of Treatment Upcoming Encounters Date Type Specialty Care Team Description 06/13/2022 Appointment Radiology 06/13/2022 Office Visit Urology Reji Foster MD [address] [facility], [facility], Level 5 [place] [phone] (Wo rk) Scheduled Referrals Name Type [...] Glucose, POC 269 (H) 70 - 100 [facility] mg/dL LABORATORY SERVICES HN LAB POC COMMENT Test Performed by [facility] R (GLUCOSE) Nursing Services LABORATORY SERVICES Specimen Blood - Capillary blood (substance) Performing Organization Address [facility] Phon e Number [facility] LABORATORY [address] [place] [phone] SERVICES (ABNORMAL) POCT GLUCOSE, INTERFACED (05/21/2021 10:03 EDT) Glucose, POC 164 (H) 70 - 100 [facility] mg/dL LABORATORY SERVICES HN LAB POC COMMENT Test Performed by [facility] R (GLUCOSE) Nursing Services LABORATORY SERVICES Specimen Blood - Capillary blood (substance) Performing Organization Address [facility] Phon e Number [facility] LABORATORY [address] [place] [address] SERVICES (ABNORMAL) BUN (05/21/2021 4:26 EDT) Pathologist Sig nature BUN 9 (L) 10 - 26 mg/dL [facility] LABORATO RY SERVICES Specimen Blood - Venous blood (substance) Performing Organization Address [facility] Phon e Number [facility] LABORATORY [address] [place] [phone] SERVICES (ABNORMAL) CREATININE (05/21/2021 4:26 EDT) Creatinine 0.47 (L) 0.52 - 1.04 [facility] mg/dL LABORATORY SERVICES eGFR 107Comment: eGFR >60 [facility] calculated using mL/min/1.73m2 LABORATORY SERVICES CKD-EPI equation for non- Americans. Multiply eGFR by 1.16 for patients. Specimen Blood - Venous blood (substance) Performing Organization Address [facility]/ZIP [facility] Phon e Number [facility] LABORATORY [address] [place] [address] SERVICES (ABNORMAL) COMPLETE BLOOD COUNT (05/21/2021 4:26 EDT) Pathologist Sig nature WBC 7.25 4.00 - 12.40 K/cmm [facility] LABORATORY SERVICES RBC 3.69 (L) 3.86 - 5.04 M/cmm [facility] LABORATORY SERVICES Hemoglobin 10.4 (L) 11.6 - 15.2 gm/dL [facility] LABORATORY SERVICES HCT 33.2 (L) 34.9 - 44.4 % [facility] LABORATORY SERVICES MCV 90 81 - 98 fl [facility] LABORATORY SERVICES MCH 28.2 26.7 - 33.3 pg [facility] LABORATORY SERVICES MCHC 31.3 (L) 32.1 - 35.9 gm/dL [facility] LABORATORY SERVICES RDW-CV 14.0 <14.7 % [facility] LABORATORY SERVICES RDW-SD 45.9 <50.4 fl [facility] LABORATORY SERVICES PLT 290 141 - 377 K/cmm [facility] LABORATORY SERVICES MPV 9.5 9.5 - 12.7 fl [facility] LABORATORY SERVICES Specimen Blood - Venous blood (substance) Performing Organization Address City/State/ZIP Code Phon e Number [facility] LABORATORY [address] [place] [address] SERVICES ELECTROLYTES (05/21/2021 4:26 EDT) Pathologist Sig nature Sodium 142 136 - 145 mmol/L [facility] LABOR ATORY SERVICES Potassium 4.6 3.5 - 5.0 mEq/L [facility] LABORA TORY SERVICES Chloride 105 96 - 110 mEq/L [facility] LABORAT ORY SERVICES CO2 Total 28 22 - 32 mEq/L [facility] LABORATO RY SERVICES Specimen Blood - Venous blood (substance) Performing Organization Address City/[facility]/ZIP Code Phon e Number [facility] LABORATORY [address] [place] [address] SERVICES (ABNORMAL) POCT GLUCOSE, INTERFACED (05/20/2021 20:31 EDT) Glucose, POC 178 (H) 70 - 100 [facility] mg/dL LABORATORY SERVICES HN LAB POC COMMENT Test Performed by [facility] R (GLUCOSE) Nursing Services LABORATORY SERVICES Specimen Blood - Capillary blood (substance) Performing Organization Address City/State/ZIP Code Phon e Number [facility] LABORATORY [address] [place] [address] SERVICES (ABNORMAL) POCT GLUCOSE, INTERFACED (05/20/2021 17:44 EDT) Glucose, POC 216 (H) 70 - 100 [facility] mg/dL LABORATORY SERVICES HN LAB POC COMMENT Test Performed by [facility] R (GLUCOSE) Nursing Services LABORATORY SERVICES Specimen Blood - Capillary blood (substance) Performing Organization Address City/State/ZIP Code Phon e Number [facility] LABORATORY [address] [place] [address] SERVICES (ABNORMAL) POCT GLUCOSE, INTERFACED (05/20/2021 13:07 EDT) Glucose, POC 224 (H) 70 - 100 [facility] mg/dL LABORATORY SERVICES HN LAB POC COMMENT Test Performed by [facility] R (GLUCOSE) Nursing Services LABORATORY SERVICES Specimen Blood - Capillary blood (substance) Performing Organization Address [facility]/ZIP [facility] Phon e Number [facility] LABORATORY [address] [place] [address] SERVICES MRSA PCR (05/20/2021 11:59 EDT) MRSA Result No Staphylococcus aureus [facility] detected by PCR LABORATORY SERVICES Specimen Swab - Entire naris (body structure) Performing Organization Address [facility] Phon e Number [facility] LABORATORY [address] [place] [address] SERVICES (ABNORMAL) POCT GLUCOSE, INTERFACED (05/20/2021 7:18 EDT) Glucose, POC 205 (H) 70 - 100 [facility] mg/dL LABORATORY SERVICES HN LAB POC COMMENT Test Performed by [facility] R (GLUCOSE) Nursing Services LABORATORY SERVICES Specimen Blood - Capillary blood (substance) Performing Organization Address [facility]/ZIP [facility] Phon e Number [facility] LABORATORY [address] [place] [address] SERVICES (ABNORMAL) GLUCOSE, SERUM (05/20/2021 4:24 EDT) Pathologist Sig nature Glucose 205 (H) 70 - 100 mg/dL [facility] LABORAT ORY SERVICES Specimen Blood - Venous blood (substance) Performing Organization Address [facility]/ZIP Code Phon e Number [facility] LABORATORY [address] [place] [address] SERVICES CREATININE (05/20/2021 4:24 EDT) Creatinine 0.55 0.52 - 1.04 [facility] mg/dL LABORATORY SERVICES eGFR 102Comment: eGFR >60 [facility] calculated using mL/min/1.73m2 LABORATORY SERVICES CKD-EPI equation for non- Americans. Multiply eGFR by 1.16 for patients. Specimen Blood - Venous blood (substance) Performing Organization Address City/[facility]/ZIP Code Phon e Number [facility] LABORATORY [address] [place] [address] SERVICES BUN (05/20/2021 4:24 EDT) Pathologist Sig nature BUN 10 10 - 26 mg/dL [facility] LABORATO RY SERVICES Specimen Blood - Venous blood (substance) Performing Organization Address [facility] Phon e Number [facility] LABORATORY [address] [place] [address] SERVICES ELECTROLYTES (05/20/2021 4:24 EDT) Pathologist Sig nature Sodium 141 136 - 145 mmol/L [facility] LABOR ATORY SERVICES Potassium 4.1 3.5 - 5.0 mEq/L [facility] LABORA TORY SERVICES Chloride 103 96 - 110 mEq/L [facility] LABORAT ORY SERVICES CO2 Total 28 22 - 32 mEq/L [facility] LABORATO RY SERVICES Specimen Blood - Venous blood (substance) Performing Organization Address [facility] Phon e Number [facility] LABORATORY [address] [place] [address] SERVICES (ABNORMAL) COMPLETE BLOOD COUNT (05/20/2021 4:24 EDT) Pathologist Sig nature WBC 7.32 4.00 - 12.40 K/cmm [facility] LABORATORY SERVICES RBC 3.78 (L) 3.86 - 5.04 M/cmm [facility] LABORATORY SERVICES Hemoglobin 10.5 (L) 11.6 - 15.2 gm/dL [facility] LABORATORY SERVICES HCT 32.4 (L) 34.9 - 44.4 % [facility] LABORATORY SERVICES MCV 86 81 - 98 fl [facility] LABORATORY SERVICES MCH 27.8 26.7 - 33.3 pg [facility] LABORATORY SERVICES MCHC 32.4 32.1 - 35.9 gm/dL [facility] LABORATORY SERVICES RDW-CV 13.7 <14.7 % [facility] LABORATORY SERVICES RDW-SD 43.0 <50.4 fl [facility] LABORATORY SERVICES PLT 297 141 - 377 K/cmm [facility] LABORATORY SERVICES MPV 9.4 (L) 9.5 - 12.7 fl [facility] LABORATORY SERVICES Specimen Blood - Venous blood (substance) Performing Organization Address [facility]/ZIP Code Phon e Number [facility] LABORATORY [address] [place] [address] SERVICES (ABNORMAL) POCT GLUCOSE, INTERFACED (05/20/2021 2:19 EDT) Glucose, POC 215 (H) 70 - 100 [facility] mg/dL LABORATORY SERVICES HN LAB POC COMMENT Test Performed by [facility] R (GLUCOSE) Nursing Services LABORATORY SERVICES Specimen Blood - Capillary blood (substance) Performing Organization Address [facility]/ZIP Code Phon e Number [facility] LABORATORY [address] [place] [address] SERVICES (ABNORMAL) POCT GLUCOSE, INTERFACED (05/20/2021 0:09 EDT) Glucose, POC 310 (H) 70 - 100 [facility] mg/dL LABORATORY SERVICES HN LAB POC COMMENT Test Performed by [facility] R (GLUCOSE) Nursing Services LABORATORY SERVICES Specimen Blood - Capillary blood (substance) Performing Organization Address [facility]/ZIP Code Phon e Number [facility] LABORATORY [address] [place] [address] SERVICES (ABNORMAL) POCT GLUCOSE, INTERFACED (05/19/2021 22:38 EDT) Glucose, POC 260 (H) 70 - 100 [facility] mg/dL LABORATORY SERVICES HN LAB POC COMMENT Test Performed by [facility] R (GLUCOSE) Nursing Services LABORATORY SERVICES Specimen Blood - Capillary blood (substance) Performing Organization Address [facility]/ZIP Code Phon e Number [facility] LABORATORY [address] [place] [address] SERVICES (ABNORMAL) POCT GLUCOSE, INTERFACED (05/19/2021 20:14 EDT) Glucose, POC 248 (H) 70 - 100 [facility] mg/dL LABORATORY SERVICES HN LAB POC COMMENT Test Performed by [facility] R (GLUCOSE) Nursing Services LABORATORY SERVICES Specimen Blood - Capillary blood (substance) Performing Organization Address City/[facility]/ZIP Code Phon e Number [facility] LABORATORY [address] [place] [address] SERVICES (ABNORMAL) POCT GLUCOSE, INTERFACED (05/19/2021 15:58 EDT) Glucose, POC 271 (H) 70 - 100 [facility] mg/dL LABORATORY SERVICES HN LAB POC COMMENT Test Performed by [facility] R (GLUCOSE) Nursing Services LABORATORY SERVICES Specimen Blood - Capillary blood (substance) Performing Organization Address City/[facility]/ZIP Code Phon e Number [facility] [address] [place] [address] SERVICES (ABNORMAL) POCT GLUCOSE, INTERFACED (05/19/2021 13:36 EDT) Glucose, POC 301 (H) 70 - 100 [facility] mg/dL LABORATORY SERVICES HN LAB POC COMMENT Test Performed by [facility] (GLUCOSE) Nursing Services LABORATORY SERVICES Specimen Blood - Capillary blood (substance) Performing Organization Address [facility] Phon e Number [facility] [address] [place] [address] SERVICES (ABNORMAL) POCT GLUCOSE, INTERFACED (05/19/2021 10:52 EDT) Pathologist [facility] [place] Glucose, POC 168 (H) 70 - 100 [facility] mg/dL LABORATORY SERVICES HN LAB POC COMMENT Test Performed by [facility] R (GLUCOSE) Nursing Services LABORATORY SERVICES Specimen Blood - Capillary blood (substance) Performing Organization Address [facility] Phon e Number [facility] [address] [place] [address] SERVICES FL C-ARM RETROGRADE (05/19/2021 10:27 EDT) Specimen Narrative 05/19/2021 10:27 EDT This is a non-reportable exam. KIDNEY STONE ANALYSIS (05/19/2021 9:22 EDT) Pathologist [facility] [place] Stone Analysis Not Reported [facility] Interpretation SEE NOTE [facility] Comment: LABORATORIES RESULT: 100% Magnesium ammonium phosphate (struvite) Test Performed by: [facility] [address] [place] [address] Aging Room Operator: Gordo Lynne M.D. Ph.D.; CLIA# [id number] Source: Urethra [facility] Specimen Calculus - Entire kidney (body structure ) Performing Organization Address City/[facility]/ZIP [facility] Phon e Number [facility] [address] [place] [address] (ABNORMAL) BACTERIAL CULTURE/SMEAR (05/19/2021 9:22 EDT) Pathologist [facility] [place] Organism ID Moderate Enterobacter cloacae complex (A) [facility] Comment: LABORATORY SERVICES Third generation cephalospor ins, such as ceftazidime, ceftriaxone, and cefpodoxime, should be avoided for treatment of this organism regardless of in vitro susceptibility. Organism ID Rare Enterococcus [facility] faecalis (A)Comment: For LABORATORY [facility] ampicillin susceptible enterococci, the preferred treatment is ampicillin (with an aminoglycoside for serious infections). Organism ID Few Vancomycin resistant [facility] Enterococcus faecium (A) LABORATORY [facility] Organism ID Rare Natty glabrata [facility] (A)Comment: This species LABORATORY [facility] has shown reduced susceptibility to Fluconazole (and other azoles) and some reduced susceptibility to Amphotercin B. Smear Neutrophils Present (A) [facility] LAB[facility] SERVICES Smear Gram Negative Bacilli [facility] (A) LABORATORY SERVICES Specimen Fluid - [...] Organization Address City/State/ZIP Code Phon e Number [facility] [address] [place] [address] SERVICES EKG 12-LEAD (05/19/2021 8:24 EDT) Specimen Narrative [facility] EKG - 05/19/2021 11:2 1 EDT ? [facility] ? Test Date: ?2021-05-19 Pat Name: ? GINGER BARRERA ?Department: ?? PREOP ? Room: ? OR Gender: ? Female ? Electronic Imaging System Operator: ?? [id number] : ?1960 ? Requested By: ISRAEL Villarreal Number: [id number] ? Reading MD: ?? NICK MARTINEZ MD ? Measurements Intervals ?[place] ? Rate: ? 92 ? P: ?47 NM: ? 152 ?QRS: ?21 QRSD: ? 98 [...] Note Nick Martinez MD - 05/19/2021 [facility] Test Date: 2021-05-19 Pat Name: GINGER BARRERA Department: [place] EOP Room: OR Gender: Female Electronic Imaging System Operator: [id number] : 1960 Requested By: ISRAEL ORTIZ IN Order Number: [id number] Reading MD: Elfego MARTINEZ MD Measurements Intervals [place] Rate: 92 P: 47 NM: 152 QRS: 21 QRSD: 98 T: 54 [...] Organization Address City/State/ZIP Code Phon e Number [facility] EKG (ABNORMAL) POCT GLUCOSE, INTERFACED (05/19/2021 7:47 EDT) Glucose, POC 143 (H) 70 - 100 [facility] mg/dL LABORATORY SERVICES HN LAB POC COMMENT Test Performed by [facility] [employer] [place] (GLUCOSE) Nursing Services LABORATORY SERVICES Specimen Blood - Capillary blood (substance) Performing Organization Address City/State/ZIP Code Phon e Number [facility] [address] [place] [address] SERVICES documented in this encounter Visit Diagnoses Diagnosis Staghorn calculus - Primary Calculus of kidney Right nephrolithiasis Bacteriuria Other nonspecific finding on examination of urine Multiple drug resistant organism (MDRO) culture positive Drug-drug interaction Unspecified adverse effect of unspecifie d drug, medicinal and biological substance Complication of other implanted genitour inary mesh, unspecified complication, subsequent encounter Staghorn calculus Calculus of kidney documented in this encounter Admitting Diagnoses Diagnosis [...] rectal, EVERY 6 HOURS, First dose on Sun at 1800, Until Discontinued, Routine acetaminophen (TYLENOL) tablet 1,000 mg Given 05/21/2021 10:26 EDT 1,000 mg 1,000 mg, oral, EVERY 6 HOURS, First dose on Maria Eugenia 05/19/21 at 1800, Until Discontinued, Routine Given 05/20/2021 20:45 EDT 1,000 mg Given 05/20/2021 16:30 EDT 1,000 mg aspirin chewable tablet 81 mg Given 05/21/2021 10: EDT 81 mg 81 mg, oral, DAILY, First dose on Maria Eugenia 05/19/21 at 1615, Until Discontinued, Routine Given 05/20/2021 9:44 EDT 81 mg Given 05/19/2021 16:26 EDT 81 mg buPROPion (WELLBUTRIN SR) SR tablet 450 mg Given 05/21/2021 10:26 EDT 450 mg 450 mg, oral, DAILY, First dose on Maria Eugenia 05/19/21 at 1615, Until Discontinued, Routine Given 05/20/2021 9:44 EDT 450 mg Given 05/19/2021 16:26 EDT 450 mg carbidopa-levodopa (SINEMET) 25-100 mg per Given 05/21/2021 13:0 3 EDT 1 Tablet tablet 1 Tablet 1 Tablet, oral, 4 TIMES DAILY, First dose on Maria Eugenia 05/19/21 at 1100, Until Discontinued, Routine Given 05/21/2021 [...] subcutaneous, EVERY 12 HOURS, First dose on Sun05/19/21 at 2100, Until Discontinued, Routine Given 05/20/2021 20:46 EDT 5,000 Units Given 05/20/2021 9:44 EDT 5,000 Units insulin aspart U-100 (NOVOLOG FLEXPEN) Given 05/21/2021 13:21 ED T 6 Units injection subcutaneous, 3 TIMES DAILY WITH MEALS, First dose on Sun05/19/21 at 1345, Until Discontinued, Routine Given 05/21/2021 10:31 EDT 1 Units Given 05/20/2021 18:14 EDT 4 Units insulin aspart U-100 (NOVOLOG FLEXPEN) Given 05/19/2021 22:38 ED T 5 Units injection subcutaneous, AT BEDTIME, First dose on Sun05/19/21 at 2100, Until Discontinued, Routine lactated ringers (LR) infusion Restarted 05/19/2021 8:40 EDT at 30 mL/hr, 30 mL/hr, intravenous, CONTINUOUS, Starting on Sun05/19/21 at 0800, Until Sun05/19/21 at 1552, Routine, Preprocedure Continued by Anesthesia [...] 50 mg, oral, DAILY, First dose on Maria Eugenia 05/19/21 at 1615, Until Discontinued Given 05/20/2021 9:43 EDT 50 mg Given 05/19/2021 16:39 EDT 50 mg levothyroxine (SYNTHROID) tablet 125 mcg Given 05/21/2021 10:26 EDT 125 mcg 125 mcg, oral, DAILY, First dose on Maria Eugenia 05/19/21 at 1615, Until Discontinued, Routine Given 05/20/2021 9:44 EDT 125 mcg Given 05/19/2021 16:26 EDT 125 mcg linezolid in dextrose 5% (ZYVOX) IVPB 60 0 mg Given 05/19/2021 7:55 EDT 600 mg 600 mg, intravenous, Administer over 60 Minutes, PRE-OP ONCE, 1 dose, On Maria Eugenia 05/19/21 at 0800, Routine, Preprocedure linezolid in dextrose 5% (ZYVOX) IVPB 60 0 mg Given 05/19/2021 22:25 EDT 600 mg 600 mg, intravenous, Administer over 60 Minutes, EVERY 12 HOURS, 2 doses, First dose on Maria Eugenia 05/19/21 at 2100, Last dose on Sun05/20/21 at [...] PRN, Starting on Sun05/19/21 at 1552, Until Sun05/21/21 at 1853, Nausea, Routine phenazopyridine (PYRIDIUM) 100 [...] EVERY 6 HOURS, First dos e on Sun05/19/21 at 1800, Until Discontinued, Routine acetaminophen (TYLENOL) tablet 1,000 mg(Linked Group 1 ) 1823 (Given - Provider: Israel Em RN)2306 (Given - Provider: Noemy Leavitt RN) 0943 (Given - Provider: Rajesh Patrick RN)1630 (Given - Provider: Rajesh Patrick RN)2045 (Given - Provider: Rock Brooks RN) 0222 [...] buPROPion (WELLBUTRIN SR) SR tablet 450 mg 1626 (Given - Provider: Israel Em RN) 0944 (Given - Provider: Rajesh Patrick RN) 1026 (Given - Provider: Rajesh Patrick RN) 450 mg, oral, DAILY, First dose on Maria Eugenia at 1615, Until Discontinued, Routine carbidopa-levodopa (SINEMET) [...] 4 TIMES DAILY, First dos e on Maria Eugenia 05/19/21 at 1100, Until Discontinued, Routine ceFAZolin (ANCEF) syringe 2 g (COMPLETED) 0853 (Given - Provider: Rinku Bunn MD) 2 g, intravenous, Administer over 10 Min utes, PRE-OP ONCE, 1 dose, On Maria Eugenia 05/19/21 at 0745, Routine cefpodoxime (VANTIN) tablet 200 mg (CANCELED) 1154 (Given - Provider: Rajesh Patrick RN) 200 mg, oral, EVERY 12 HOURS, 10 doses, First dose on Sun05/20/21 at 1045, Last dose on Sun05/24/21 at 2100, Routine diclofenac (VOLTAREN) EC tablet 50 mg (COMPLETED) 2100 (Given - Provider: Rock Brooks RN) 50 mg, oral, ONCE, 1 dose, Starting on ri 05/20/21 at 2015, Until Sun05/20/21 at 2100, Routine docusate sodium (COLACE) capsule 100 mg 2220 (Given - Provider: Noemy Leavitt RN) 0944 (Given - Provider: Rajesh Patrick RN )2044 (Given - Provider: Rock Brooks RN) 1026 (Given - Provider: Rajesh Patrick RN ) 100 mg, oral, 2 TIMES DAILY, First dose on Maria Eugenia 05/19/21 at 2100, Until Discontinued, Routine ertapenem (INVANZ) [...] Rajesh Patrick RN)1814 (Given - Provider: Rajesh Patrick RN) 1031 (Given - Provider: Rajesh Patrick RN [...] Noemy Leavitt RN - Comment: fsbg 260) 204 (Not Given - Provider: Rock Brooks RN [...] 1026 (Given - Provider: Rajesh Patrick RN) 125 mcg, oral, DAILY, First dose on Sun05/19/21 at 1615, Until Discontinued, Routine linezolid in dextrose 5% (ZYVOX) IVPB 600 mg (COMPLETE D) 0755 (Given - Provider: Araceli Tellez RN) 600 mg, intravenous, Administer over 60 Minutes, PRE-OP ONCE, 1 dose, On Sun05/19/21 at 0800, Routine, Preprocedure linezolid in dextrose 5% (ZYVOX) IVPB 600 mg (CANCELED ) 222 (Given - Provider: Noemy Leavitt RN) 1154 [...] (Given - Provi leela: Noemy Leavitt RN) 204 (Given - Provider: Rock Brooks RN) 15 mg, oral, AT BEDTIME, First dose on 05/19/21 at 2100, Until Discontinued, Routine QUEtiapine (SEROQUEL) tablet 100 mg 1400 (Given - Prov ider: Adriane Medellin RN)1626 (Given - Provider: Israel mE RN)2220 (Given - Provider: Noemy Leavitt RN) 0944 (Given - Provider: Rajesh Patrick RN)1308 (Given - Provider: Rajesh Patrick RN)2046 (Given - Provider: Rock Brooks RN) 1026 (Given - Provider: Rajesh Patrick RN)1303 (Given - Provider: Rajesh Patrick RN) 100 mg, oral, 3 TIMES DAILY, First dose on Sun05/19/21 at 1400, Until Discontinued, Routine traZODone (DESYREL) tablet 25 mg 221 (Given - Provider: Jose Leavitt RN) 0944 (Given - Provider: Rajesh Patrick RN)2045 (Given - Provider: Rock Brooks RN) 1027 (Given - Provider: Rajesh Patrick RN ) 25 mg, oral, 2 TIMES DAILY, First dose o n Sun05/19/21 at 2100, Until Discontinued, Routine Continuous Medication [...] 1108 (New Ba g - Provider: Adriane Medellin, RN) at 75 mL/hr, intravenous, PACU CONTINUOU S, Starting on Maria Eugenia 05/19/21 at 1030, Until Maria Eugenia 05/19/21 at 1443, Routine, Recovery (only) lactated ringers (LR) infusion 2225 (IV Resume - Provider: Tyree Brooks RN) 0800 (Rate Documented - Provider: Rajesh Patrick RN)1318 (New Bag - Provider: Rajesh Patrick, RN) 0659 (Rate Documented - Provider: Rajesh Patrick, XIOMARA)0700 (Rate Documented - Provider: Rajesh Patrick, XIOMARA) at 75 mL/hr, 75 mL/hr, intravenous, CONT INUOUS, Starting on Maria Eugenia 05/19/21 at 1115, Until 05/21/21 at 1853, Routine PRN Medication Order 05/19/2021 05/20/2021 05/21/2021 acetaminophen (TYLENOL) solution unit dose cup 650 mg (COMPLETED) 1310 (Given - Provider: Adriane Medellin, RN) 650 mg, oral, PRN, 1 dose, [...] Group 2) 1630 (Given - Provider: Rajesh Patrick, XIOMARA) 4 mg, intravenous, EVERY 4 HOURS PRN, St arting on Maria Eugenia 05/19/21 at 1552, Until 05/21/21 at 1853, Nausea, Routine ondansetron (ZOFRAN-ODT) disintegrating tablet 4 mg(Linked G roup 2) 163 (See Alternative - Provider: Rajesh Patrick RN) 4 mg, oral, EVERY 4 HOURS PRN, Starting on Maria Eugenia 05/19/21 at 1552, Until 05/21/21 at 1853, Nausea, Routine phenazopyridine (PYRIDIUM) tablet 200 mg 200 mg, oral, 3 TIMES DAILY PRN, 9 doses , Starting on Maria Eugenia 05/19/21 at 1552, Until 05/21/21 at 1853, Pain, Routine phenazopyridine (PYRIDIUM) tablet 200 mg 1311 (Given - Provider: Adriane Medellin RN)2305 (Given - Provider: Noemy Leavitt RN) 1630 (Given - Provider: Rajesh Patrick RN) 200 mg, oral, 3 TIMES DAILY PRN, 9 doses , Starting on Maria Eugenia 05/19/21 at 1303, Until 05/21/21 at 1853, Pain, Routine promethazine (PHENERGAN) suppository 12.5 mg(Linked Group 3) 2045 (See Alternative - Provider: Rock Brooks RN) 1110 (See Alternative - Provider: Gi Metcalf RN) 12.5 mg, rectal, EVERY 6 HOURS PRN, Star ting on Maria Eugenia 05/19/21 at 1552, Until 05/21/21 at 1853, Nausea, Routine promethazine (PHENERGAN) tablet 12.5 mg(Linked Group 3) 2045 (Given - Provider: Rock Brooks RN) 1109 (Given - Provider: Gi Metcalf RN) 12.5 mg, oral, EVERY 6 HOURS PRN, [...] Been Administered acetaminophen (TYLENOL) suppository 650 mg 1 05/19 acetaminophen (TYLENOL) tablet 650 mg 1 [...] metoclopramide (REGLAN) injection 10 mg 1 05/19/20 21 naloxone (NARCAN) injection 0.2 mg 1 05/19/2021 ondansetron (PF) (ZOFRAN) injection 4 mg 1 021 ondansetron (ZOFRAN-ODT) disintegrating 1 05/19/20 21 tablet 4 mg phenazopyridine (PYRIDIUM) tablet 200 mg 1 021 promethazine (PHENERGAN) suppository 12.5 1 2020 mg linezolid in dextrose 5% (ZYVOX) IVPB 600 1 2020 mg Procedures Count Last Ordered Date First Ordered Date IMPLANT RECORD - SCANNED 2 05/26/2021 021 ECG REPORT - SCANNED 2 05/25/2021 05/19/2021 Nursing Count Last Ordered Date First Ordered Date NOTIFY 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
--- OUTSIDE RECORDS SUMMARY | 2022-03-17 00:36 | XMS_ITS | Encounter Summary ---
:1960 Author Organization [facility] Address [address] [place] [address] Care Team Providers Name Role Phone Pio Odonnell MD Primary Care Provider [phone] Reason for Visit Reason Onset Date Comments Surgery Scheduling 03/18/2021 Surgery Scheduling 04/06/2021 Follow-up 04/07/2021 Encounter Details Date Type Department Care Team Description 03/18/2021 Telephone [facility] Reji Foster Scheduling; Urology - [facility] Osiris Fletcher MD Surgery Scheduling; 111 [facility] 111 [facility] Follow-up [place], [place] [id number] [place] [address] [facility] [address] [place] [phone] (Wo rk) Social History Tobacco Use Types [...] encounter Miscellaneous Notes Telephone Encounter - Qian Cast - 04/07/2021 1547 EDT Spoke with Mary Ellen about pt's surgery on 04/28/21. She will plan on a 6:30 arrival. Pt will be admitted for one night. A pre-op history and physical is scheduled with her PCP tomorrow. A urine culture willbe completed at least 1 week prior. Pt has had the covid vaccine so no covid test is needed. elephone Encounter - Jame Gerber - 04/07/2021 0858 EDT Nayeli is calling back from [facility]. She needs to know how long patient's surgery will be, and she needs to arrange for an ambulance transport so they need to know the time of surgery by tomorrow. Please call back. elephone Encounter - Gay Carranza - 04/06/2021 1121 EDT Mary Ellen from the [facility] is trying to arrange patient's ambulance and ambulance crew for transportation to and from her 04/28 procedure. Wanting to clarify if they are to arrive at 6:30 or surgery is at 6:30. Also wondering roughly how long it is expected that patient will be there so she can inform the ambulance crew. Please call and ask to speak with Mary Ellen. elephone Encounter - Qian Cast - 03/18/2021 1106 EDT A message was left for Mary Ellen requesting she contact the office to discuss scheduling pt for surgery with Dr. Foster. documented in this encounter Plan of Treatment Upcoming Encounters Date Type Specialty Care Team Description 06/13/2022 Appointment Radiology 06/13/2022 Office Visit Urology Reji Foster MD 111 [facility], [facility], [facility] [address] [place], [place] [address] (Wo rk) documented as of this encounter Visit Diagnoses Not on filedocumented in this encounter Additional Health Concerns Infection Onset Date Last Indicated Resolved Time MRSAComment: IP note: risk factors - DM, impaired mobility, snf resident 02/25/2015 02/25/2015 Pos nares 02/25/2015 Neg nares 11/02/18 Neg nares 12/13/18 N [place] 12/13/18 documented as of this encounter Care Teams Guide Domestic Tour Relationship Specialty Start Date End Date Pio Odonnell MD PCP - General 10/31/18 04/20/21 [address] [place] [address] documented as of this encounter
--- OUTSIDE RECORDS SUMMARY | 2022-03-17 00:36 | XMS_ITS | Encounter Summary ---
:1960 Author Organization [facility] Address [address] [place] [address] Care Team Providers Name Role Phone Pio Odonnell MD Primary Care Provider [phone] Reason for Visit (Routine) - Receiving Office to Obtain Authorization Specialty Diagnoses / Procedures Referred By Contact Refer red To Contact Procedures Unknown, Provider, XR OUTSIDE IMAGES BODY Phone: Referral ID Status Reason Start Expiration Visits Visits Date Date Requested Authorized [id number] Receiving Office 11/05/2020 1 1 to Obtain Authorization Encounter Details Date Type Department Care Team Description 11/05/2020 Hospital Encounter [facility] Secondary Reads [place] Social History Tobacco Use Types Packs/Day Years [...] making decisions? documented as of this encounter Medications at Time of Discharge Medication Sig Dispensed Refills Start Date End Date acetaminophen (TYLENOL) 650 Take 650 mg by 0 mg CR tablet mouth daily. aspirin chewable 81 mg Take 81 mg by 0 tablet mouth daily. buPROPion (WELLBUTRIN SR) Take 450 mg by 0 150 mg SR tablet mouth daily. carbidopa-levodopa Take 1 Tab by 0 (SINEMET) 25-100 mg per mouth 4 times tablet daily docusate sodium (COLACE) Take 1 capsule by 0 11/23 100 mg capsule mouth 2 times daily. Lamotrigine 50 mg tablet Take 50 mg by 0 extended release 24hr mouth daily. levothyroxine (SYNTHROID) Take 125 mcg by 0 125 mcg tablet mouth daily. magnesium chloride (MAG 64 Take by mouth 0 ORAL) daily. metFORMIN (GLUCOPHAGE) 500 Take 500 mg by 0 mg tablet mouth 2 times daily. mirtazapine (REMERON) 15 mg Take 15 mg by 0 tablet mouth at bedtime. Multivitamins with Minerals Take 1 Tab by 0 tablet mouth daily QUEtiapine (SEROQUEL) 100 Take 100 mg by 0 mg tablet mouth 3 times daily. traZODone (DESYREL) 50 mg Take 25 mg by 0 tablet mouth 2 times daily. diclofenac (VOLTAREN) 50 mg Take 1 tablet by 6 tablet 0 04/20/2021 EC tablet mouth 2 times daily as needed for Pain. mycophenolate mofetil Take 0.5 mL by 3 Bottle 1 06/12/2013 04/20/2021 (CELLCEPT) 200 mg/mL mouth daily. 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 predniSONE (DELTASONE) 5 mg Take 0.5 Tabs by 30 Tab 0 04/20/2021 tablet mouth daily. valproic acid, as sodium Take 500 mg by 0 04/20/2021 salt, (DEPAKENE) 250 mg/5 mouth 2 times mL (5 mL) solution daily. documented as of this encounter Discharge Disposition Disposition Code Departure Means Destination Home or Self Care documented in this encounter Plan of Treatment Upcoming Encounters Date Type Specialty Care Team Description 06/13/2022 Appointment Radiology 06/13/2022 Office Visit Urology Reji Foster MD 111 [facility], [facility], [address] [place], [place] [address] (Wo rk) documented as of this encounter Procedures Procedure Name Priority Date/Time Associated Diagnosis Comme nts XR OUTSIDE IMAGES Routine 11/05/2020 16:32 Result s for this BODY EST procedure are i n the results section. documented in this encounter Results XR OUTSIDE IMAGES BODY (11/05/2020 16:32 EST) Specimen Narrative 11/05/2020 16:32 EST This is a non-reportable exam. documented in this encounter Visit Diagnoses Not on filedocumented in this encounter Additional Health Concerns Infection Onset Date Last Indicated Resolved Time MRSAComment: IP note: risk factors - DM, impaired mobility, [facility] resident 02/25/2015 02/25/2015 Pos nares 02/25/2015 Neg nares 11/02/18 Neg nares 12/13/18 N [place] 12/13/18 documented as of this encounter Care Teams Front Line Supervisor Relationship Specialty Start Date End Date Pio Odonnell MD PCP - General 10/31/18 04/20/[address] [place] [address] documented as of this encounter
--- OUTSIDE RECORDS SUMMARY | 2022-03-17 00:36 | XMS_ITS | Encounter Summary ---
:1960 Author Organization [facility] Address [address] [place] [address] Care Team Providers Name Role Phone Pio Odonnell MD Primary Care Provider [phone] Pina Taylor MD Primary Care Provider Maricel Deshpande APRN Primary Care Provider [phone] Reason for Visit Reason Onset Date Comments Appointment Related 11/24/2020 Encounter Details Date Type Department Care Team Description 11/24/2020 Telephone [facility] Reji Foster ntment Related Urology - Main Osiris Fletcher MD 111 [facility] [address] [phone] [facility] 5 [place] [address] (Wo rk) Social History Tobacco [...] this encounter Miscellaneous Notes Telephone Encounter - Ashkan Hurtado - 11/24/2020 1314 EST Spoke w/ nurse. Dealing with covid exposure at long-term. Will call back to schedule ginger. documented in this encounter Plan of Treatment Upcoming Encounters Date Type Specialty Care Team Description 06/13/2022 Appointment Radiology 06/13/2022 Office Visit Urology Reji Foster MD [address] [place] [address], [address] [place], [place] [address] (Wo rk) documented as [...] documented as of this encounter Care Teams Appliance Fixer Relationship Specialty Start Date End Date Pio Odonnell MD PCP - General 10/31/18 04/20/[address] [place] [address] Pina Taylor MD PCP - General 04/21/21 10/03/21 [address] [place] [address] Maricel Deshpande APRN PCP - General Geriatric Medicine 10/04/[address] [place] [address] documented as of this encounter
--- OUTSIDE RECORDS SUMMARY | 2022-03-17 00:36 | XMS_ITS | Encounter Summary ---
:1960 Author Organization [facility] Address [address] [place] [address] Care Team Providers Name Role Phone Pina Taylor MD Primary Care Provider Maricel Deshpande APRN Primary Care Provider [phone] Encounter Details Date Type Department Care Team Description 05/13/2021 Lab Requisition [facility] Unknown, Encoun ter for other Pathology & Provider, general examination Laboratory Medicine - [phone] [facility] (Work) [address] [facility] [phone] [place] [address] (Fax) [phone] Social History Tobacco Use Types Packs/Day Years [...] making decisions? documented as of this encounter Plan of Treatment Upcoming Encounters Date Type Specialty Care Team Description 06/13/2022 Appointment Radiology 06/13/2022 Office Visit Urology Reji Foster MD [address] [facility], [facility], [address] [place], [place] [address] (Wo rk) documented as of this encounter Procedures Procedure Name Priority Date/Time Associated Diagnosis Comme nts SUSCEPTIBILITY Today 05/12/2021 8:00 EDT Encounter for other Results for this general examination procedur e are in the results section. documented in this encounter Results (ABNORMAL) SUSCEPTIBILITY (05/12/2021 8:00 EDT) Organism ID Vancomycin resistant Enterococcus faecium (A) [facility] Comment: LABORATORY SERVICES Organism identification performed by client. Ampicillin or Amoxacillin ar e the drugs of choice for treating Enterococcus infections (including VRE) limited to the lower tract. Specimen Organism - Urine (substance) Organism Antibiotic Method Susceptibility Vancomycin resistant Daptomycin MICRO SUSCEPTIBILITY 2 ug/m L: Susceptible Enterococcus faecium Performing Organization Address City/State/ZIP Code Phon e Number [facility] [address] [place] [address] SERVICES documented in this encounter Visit Diagnoses Diagnosis Encounter for other general examination documented in this encounter Additional Health Concerns [...] documented as of this encounter Care Teams Professional Athletes Coach Relationship Specialty Start Date End Date Pina Taylor MD PCP - General 04/21/21 10/03/21 [address] [place] [phone] Maricel Deshpande APRN PCP - General Geriatric Medicine 10/04/[address] [place] [address] documented as of this encounter
--- OUTSIDE RECORDS SUMMARY | 2022-03-17 00:36 | XMS_ITS | Encounter Summary ---
:1960 Author Organization [facility] Address [address] [place] [address] Care Team Providers Name Role Phone Pio Odonnell MD Primary Care Provider [phone] Pina Taylor MD Primary Care Provider Maricel Deshpande APRN Primary Care Provider [phone] Encounter Details Date Type Department Care Team Description 04/09/2020 Lab Requisition [facility] Outr Resulting Lab, Pathology & Laboratory Provider [facility] [address] [place], [place] [id number] Social History Tobacco Use Types Packs/Day Years [...] Office Visit Urology Reji Foster MD [address] [facility], [facility], [facility] [address] [place] [phone] (Wo rk) documented as of this encounter Procedures Procedure Name Priority Date/Time Associated Comments Diagnosis DO NOT ORDER Today 04/09/2020 15:00 Results for this STANDALONE - REGULO EDT procedure a re in COVID TESTING the results section. COVID-19 TESTING Routine 04/09/2020 15:00 Results for this EDT procedure are i n the results section. documented in this encounter Results DO NOT ORDER STANDALONE - REGULO COVID TESTING (04/09/2020 15:00 EDT) COVID-19 rt-PCR Not Detected Not Detected [place] Result Comment: DEPARTMENT OF This test has not been FDA c leared or approved. This test has been authorized by FDA under an EUA for use by authorized laboratories. ??This test has been authorized only for the detection of nucleic ac [facility] id from SARS-CoV-2, not for any other viruses or pathogens. ??This test is only authorized for the duration of the declaration that circumstances exist justifying the authorization of emergency use of i n vitro diagnostic tests for detection and/or diagnosis of COVID-19 under Section 564(b)(1) of the Act, 21 U.S.C. Section 360bbb-3(b)(1), unless the authorization is terminated or revoked sooner. ??Fact sheets for healthcare provid ers: ??https://www.fda.gov/media/535022/download Factsheets for patients: https://www.fda.gov/media/616209/download Negative results do not prec lude infection with SARS-CoV-2 virus, and should not be the sole basis of a patient management decision. Specimen Swab - Entire nasopharynx (body structur e) Performing Organization Address City/[facility]/ZIP Code Phon e Number [facility] [address] [place], [place] [address] LABORATORY COVID-19 TESTING (04/09/2020 15:00 EDT) COVID-19 rt-PCR Not Detected Not Detected [place] Result Comment: DEPARTMENT OF This test has not been FDA c leared or approved. This test has been authorized by FDA under an EUA for use by authorized laboratories. ??This test has been authorized only for the detection of nucleic ac [facility] id from SARS-CoV-2, not for any other viruses or pathogens. ??This test is only authorized for the duration of the declaration that circumstances exist justifying the authorization of emergency use of i n vitro diagnostic tests for detection and/or diagnosis of COVID-19 under Section 564(b)(1) of the Act, 21 U.S.C. Section 360bbb-3(b)(1), unless the authorization is terminated or revoked sooner. ??Fact sheets for healthcare provid ers: ??https://www.fda.gov/media/144954/download Factsheets for patients: https://www.fda.gov/media/764673/download Negative results do not prec lude infection with SARS-CoV-2 virus, and should not be the sole basis of a patient management decision. Performing Lab [facility] LABORATORY SERVICES Specimen Swab Performing Organization Address City/[facility]/ZIP Code Phon e Number [facility] [address] [place] [address] SERVICES [facility] [address] [place], [place] [address] LABORATORY documented in this encounter Visit Diagnoses Not on filedocumented in this encounter Additional Health Concerns Infection Onset Date Last Indicated Resolved Time MRSAComment: IP note: risk factors - DM, impaired mobility, half-way resident 02/25/2015 02/25/2015 Pos nares 02/25/2015 Neg nares 11/02/18 Neg nares 12/13/18 N Joanie 12/13/18 VREComment: IP note: 05/19/2021 05/19/2021 11/19/2021 22:15 EST Pos urine 05/12/21 Pos kidney fluid 05/19/21 Tamara Castro RN 05/24/21 documented as of this encounter Care Teams Delivery Agent Relationship Specialty Start Date End Date Pio Odonnell MD PCP - General 10/31/18 04/20/[address] [place] [address] Pina Taylor MD PCP - General 04/21/21 10/03/21 [address] [place] [phone] Maricel Deshpande APRN PCP - General Geriatric Medicine 10/04/21 [facility] [address] [place] [address] documented as of this encounter
--- OUTSIDE RECORDS SUMMARY | 2022-03-17 00:36 | XMS_ITS | Encounter Summary ---
:1960 Author Organization [facility] Address [address] [place] [address] Care Team Providers Name Role Phone Pio Odonnell MD Primary Care Provider [phone] Reason for Referral Laboratory Services (Routine) - New Request Specialty Diagnoses / Procedures Referred By Contact Refer red To Contact Diagnoses Nephrolithiasis Reji Foster, Procedures BACTERIAL CULTURE, URINE MD [address] [place] [phone] Referral ID Status Reason Start Date Expiration Date Visits V isits Requested Authorized [id number] New Request 03/16/2021 1 1 Reason for Visit Reason Comments Follow-up Encounter Details Date Type Department Care Team Description 03/16/[address] [facility] Reji Foster Nephr olithiasis Urology - Chandrakant Fletcher MD (Primary Dx) [address] [place] [address] [place] [phone] (Wo rk) Social History Tobacco [...] making decisions? documented as of this encounter Progress Notes Reji Foster MD - 03/16/2021 1015 EDT Follow-up visit on Ginger. This is a video visit at her residence. Today were reviewing a an updatedCT scan that was actually done several months ago. 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 She has had some follow-up findings of recurrent stones and this CT scan I reviewed with her showing significant reaccumulation of stone unfortunately in the right kidney. There is a staghorn configuration filling the lower pole intothe renal pelvis and additional calyces. There is no obvious hydronephrosis. From a symptomatic standpoint she denies having any significant voiding concerns or urinary tract infections and she has notbeen on antibiotics. She has been having abdominal issues in terms of diarrhea as well as headaches. Despite the lack of urinary tract infections at this time I have recommended treating the stone burden which is significant and likely continues to be infectious based that risks complications in the future. I discussed with her again a percutaneous nephrolithotomy which she has had before and reviewed the risks and benefits. We will start the planning process. We will have urine culture sent prior. The concept of ???Telemedicine?? has been described to the patient.? Patient has been informed of the anticipated benefits and possible risks.? Patient understands the information provided regarding telemedicine, has had the opportunity to ask questions about this information, and all questions have been answered to patient???s satisfaction. Patient consents for the use of telemedicine in his/her medical care and authorizes the transmission of any relevant medical information to providers and theirstaff involved in patient???s medical or mental health care. TELEMEDICINE VIDEO VISIT Today's visit was provided through telemedicine video conferencing: The location of the patient : Home The location of the provider: Office The following staff and their role did participate in today's encounter visit: Reji Foster MD documented in this encounter Plan of Treatment Upcoming Encounters Date Type Specialty Care Team Description 06/13/2022 Appointment Radiology 06/13/2022 Office Visit Urology Reji Foster MD [address] [place] [address], [address] [place], [place] [phone] (Wo rk) Scheduled Orders Name Type Priority Associated Diagnoses Order S chedule BACTERIAL CULTURE, Microbiology Routine Nephrolithiasis Expect ed: 03/17/2021 URINE (Approximate), Expires: 2021 documented as of this encounter Visit Diagnoses Diagnosis Nephrolithiasis - Primary Calculus of kidney documented in this encounter Orders Case Request Count Last Ordered Date First Ordered Date CASE REQUEST OPERATING ROOM 1 03/16/2021 documented in this encounter Additional Health Concerns Infection Onset Date Last Indicated Resolved Time MRSAComment: IP note: risk factors - DM, impaired mobility, prison resident 02/25/2015 02/25/2015 Pos nares 02/25/2015 Neg nares 11/02/18 Neg nares 12/13/18 N [place] 12/13/18 documented as of this encounter Care Teams Flue Tile Press Operator Relationship Specialty Start Date End Date Pio Odonnell MD PCP - General 10/31/18 04/20/[address] [place] [id number] documented as of this encounter
--- OUTSIDE RECORDS SUMMARY | 2022-03-17 00:36 | XMS_ITS | Encounter Summary ---
:1960 Author Organization [facility] Address [address] [place] [address] Care Team Providers Name Role Phone Pina Taylor MD Primary Care Provider Reason for Visit Auth/Cert Specialty Diagnoses / Procedures Referred By Contact Refer red To Contact Diagnoses Nephrolithiasis Procedures SD PERCUT REMV KID STONE,UP TO 2 CM NEPHROSTOLITHOTOMY, PERCUTANEOUS, WITH REMOVAL OF CALCULUS LESS THAN 2 CM IN DIAMETER Referral ID Status Reason Start Date Expiration Date Visits Requ ested Visits Authorized [id number] 04/06/2021 09/23/2021 1 1 Encounter Details Date Type Department Care Team Description 04/28/2021 Surgery [facility] OR Reji Foster NEPHROSTOLITHOTOMY, [address] [place] [address] Anival Fletcher MD PERCUTANEOUS, [place] [address] [address] [facility] REMOVAL OF CALCULUS [phone] [facility] LESS THAN 2 CM IN Pavilion, Level 5 DIAMETER [[id number] [place], [place] (CPT??)] [id number] (Wo rk) Surgery Details Date/Time Status Location OR Service Patient Case Class Case Tr auma Class Type Case? 04/28/21 0825 Posted [facility] Urology Extended H - Elective Stay Panel 1 Procedure LRB Anes Op Region Wound Class Commen ts NEPHROSTOLITHOTOMY, Right Patient Choice Abdomen Class II/ Cl dawson PERCUTANEOUS, WITH Contaminated REMOVAL OF CALCULUS LESS THAN 2 CM IN DIAMETER Surgeon Surgeon Role Service Panel Reji Foster MD Primary Urology 1 Pastor Donaldson MD Resident - Assisting Urology 1 Special Needs Th[facility] Social [...] Sign Reading Time Taken Comments Blood Pressure 116/71 04/28/2021 1200 EDT Pulse - - Temperature 36.1 ??C (97 ??F) 04/28/2021 1140 EDT Respiratory Rate 9 04/28/2021 1200 EDT Oxygen Saturation 98% 04/28/2021 1200 EDT Inhaled Oxygen Concentration - - Weight 75.8 kg (167 lb 1.7 oz) 04/28/2021 0741 EDT Height 165.1 cm (5' 5) 04/28/2021 0741 EDT Body Mass Index 27.81 04/28/2021 0741 EDT documented in this encounter Functional Status [...] making decisions? documented as of this encounter Discharge Summaries Mikhail Jimenez MD - 04/28/2021 1203 EDT Urologic Surgery Discharge Summary Primary Care Provider: Elian Taylor Attending Physician: Reji Foster* Admit Date: 04/28/2021 Discharge Date: 04/29/2021 [facility]position[facility] facility Problems and Procedures Admitting Diagnosis: Right nephrolithiasis Principal/Final Diagnosis: Right nephrolithiasis Additional Problems Managed in the Hospital Active Hospital Problems Diagnosis Date Noted ??? *Calculus of kidney 12/05/2018 Resolved Hospital Problems No resolved problems to display. Principal Procedure: Right percutaneous nephrolithotomy (PCNL) with fluoroscopic-guided right renal access; right prone ureteroscopy, right antegrade pyelogram and right ureteral stent placement Date: 04/28/2021 Secondary Procedures: none Hospital Course Ginger Barrera is a 60 year old female with history of large right sided kidney stone burden who underwent a right-sided PCNL with renal access with Dr. Foster on 04/28/2021. The case went well without any apparent complications. In PACU she had a CXR that did not show any pneumothorax. She was then transferred to the floor in good condition. On post-op day 1 her lozada catheter was removed and shewas able to void appropriately. She had a CT scan that demonstrated residual stone burden. She was ultimately discharged home on 04/29/2021. She was tolerating a diet, and pain was well controlled on minimal oral analgesics. She will follow-up with Dr. Foster for second look urteroscopy in 2-4 weeks. Allergies and Immunizations Allergies Allergen Reactions ??? Darvocet A500 [Propoxyphene N-Acetaminophen] Nausea And Vomiting ??? Methadone ??? Naproxen Does not work ??? Penicillins Itching ??? Sulfa (Sulfonamide Antibiotics) ??? Tylox [Oxycodone-Acetaminophen] itching Immunization History Administered Date(s) Administered ??? Covid-19 mRNA Vaccine (fishfishme COVID-19) PF 0.3 ml IM (12 yrs+) 09/29/2020, 10/19/2020 ??? Influenza (split) 12/09/2010 ? ? Pneumococcal Polysaccharide (PPSV23) Vaccine (PNEUMOVAX-23) =>2YO SQ/IM 12/09/2010 Transition of Care Plans Condition at Discharge Good Assessment at Discharge Vital signs: Patient Vitals for the past 12 hrs: BP Heart Rate Resp Temp SpO2 O2 Flow Rate (L/min) O2 Device 04/29/21 0605 97/62 95 BPM 16 37 ??C (98.6 ??F) 95 % no documentation no documentation 04/29/21 0600 no documentation no documentation no documentation no documentation no documentation 0l/min None 04/29/21 0418 no documentation no documentation no documentation 37.2 ??C (99 ??F) no documentation no documentation no documentation 04/29/21 0214 121/73 98 BPM 20 37.7 ??C (99.9 ??F) 99 % 2.5 l/min Nasal cannula 04/28/21 2201 106/73 93 BPM 12 37 ??C (98.6 ??F) 99 % 2.5 l/min Nasal cannula Results Pending at Discharge Test results still pending from this admission Procedure Component Value Units Date/Time Kidney Stone Analysis [[id number]] Collected: 04/28/21 1010 Lab Status: In process Specimen: Calculus from Kidney Updated: 04/28/21 1449 Bacterial Culture/Smear, Other [[id number]] Collected: 04/28/21 1009 Lab Status: Preliminary result Specimen: Calculus from Kidney Updated: 04/28/21 1318 Smear No Neutrophils Seen No bacteria seen Relevant Studies at Discharge FL LOOPOGRAM Result Date: 04/28/2021 This is a non-reportable exam. XR CHEST PORTABLE 1 VIEW Result Date: 04/28/2021 XR CHEST PORTABLE 1 VIEW 04/28/2021 12:00 PM CLINICAL HISTORY/COMMENTS: s/p R PCNL with supracostal renal access, r/o PTX > to be done in PACU COMPARISON: Radiograph of the chest from December 05, 2016. FINDINGS: Single portable AP view of the chest. Patient is 65 degrees upright. Lines/tubes: None present. Soft tissues, bones and extrathoracic findings: Cervical spine hardware is present. No significant abnormalities. Cardiac and mediastinal contours: The cardiomediastinal silhouette is normal. Lungs: The lungs are clear with normal pulmonary vasculature. Pleura: No evidence of pneumothorax or pleural effusions but cannot be excluded on this semiupright portable AP radiograph. 1. No evidence of pneumothorax or pleural effusions but cannot be excluded on this semiupright portable AP radiograph. I have personally reviewed the images and the above interpretation and agree with the findings. CT RENAL STONE Result Date: 04/29/2021 CT RENAL STONE 04/29/2021 6:30 AM Signs and Symptoms/Comments: s/p R PCNL; assess for residual stone burden; Flank pain, kidney stone suspected CT RENAL STONE 04/29/2021 6:30 AM Signs and Symptoms/Comments: s/p R PCNL; assess for residual stone burden; Flank pain, kidney stone suspected. Technique: Helical CT images of the abdomen and pelvis were obtained from the top of the kidneys to the symphysis pubis. No contrast was administered. Comparison: November 05, 2020, outside CT scan Findings: Hepatobiliary and gallbladder : There are no contour deforming lesions in the liver. The gallbladder is partially contracted. Spleen and pancreas: No contour deforming lesions are present in the spleen. There is partial fatty replacement of the pancreas. Adrenals and kidneys: Adrenal glands are normal. Previouslyidentified stone in the right renal pelvis is no longer present. There are multiple additional stones within the collecting system of the right kidney which are similar to that of the previous exam. Interval placement of a right ureteral stent, which appears well positioned. There is a mild degree of hydronephrosis, best appreciated on the coronal study. There is a lobulated contour to the left kidney. The left kidney demonstrates no evidence of hydronephrosis or calculi. Urinary bladder, uterus andovaries: The urinary bladder is decompressed by Lozada catheter. Distal portion of the stent is presen t within the urinary bladder. The uterus is again noted to be enlarged, similar to that of the exam from 2019. No adnexal masses. Bowel: There is a large amount of stool in the rectum. Scattered diverticula in the colon Lymphovascular: No pathologically enlarged lymph nodes. There is atherosclerosis. Peritoneal cavity: No free fluid Musculoskeletal: Bones are osteopenic. Degenerative changes are present at L5-S1 Lung bases: Minimal bibasilar atelectasis Impressions: 1. Previously identified stone inthe right renal pelvis is no longer present. The remainder of the previously identified stones in the collecting system of the right kidney are unchanged. 2. Mild degree of right- sided hydronephrosis. Right ureteral stent is well-positioned. 3. Unchanged appearance of the enlarged uterus, which is most likely fibroid in nature 4. Colonic diverticulosis. 5. Large amount of stool in the rectum Last Lab Results at Discharge BUN: Lab Results Component Value Date BUN 11 04/29/2021 Creatinine: Lab Results Component Value Date CREATININE 0.56 04/29/2021 CBC: Lab Results Component Value Date WBC 6.14 04/29/2021 RBC 3.89 04/29/2021 HGB 11.1 (L) 04/29/2021 HCT 34.4 (L) 04/29/2021 MCV 88 04/29/2021 MCH 28.5 04/29/2021 MCHC 32.3 04/29/2021 PLT 187 04/29/2021 DIFFTYPE Manual 11/01/2018 SEDRATE 88 (H) 09/04/2012 Electrolytes: Lab Results Component Value Date NA 137 04/29/2021 K 4.2 04/29/2021 CL 97 04/29/2021 CO2 27 04/29/2021 Discharge Follow Up Follow up for second look ureteroscopy, case requested. Araceli Cramer PA-C 04/29/2021 8:43 documented in this encounter Discharge Instructions Discharge Instr - AVS First Mikhail Hightower MD - 04/29/2021 8:21 EDT Urology Post-Operative Discharge Instructions Percutaneous Nephrolithotomy (PCNL) Diet: Resume preoperative diet Taking bowel medications like colace, senna, and mirlax after surgery can be helpful until your bowel movements are regular again Activity: No heavy lifting for 3-4 weeks, otherwise activity as tolerated It is normal to have pain associated with the ureteral stent. This pain may be worse with activity or movement. Driving: No driving while taking narcotic pain medication Skin/Wound Care: No dressing required, if some leakage at the incision you can put some dry gauze over the site and secure it gently with tape. Keep the incision clean and dry. Do not rub or pull at the incision. If you notice increased drainage from your wound, you can try to take 5 very deep breaths. Deep inhalation can cause the kidneys to reposition slightly as your lungs and diaphragm moves downwards, which can sometimes resolve any drainage as your kidney continues to heal. Bathing: Shower only for 2 weeks, then bathing/immersion is OK. Do not rub incision. Pat dry gently with a towel. Pending Results: Stone analysis and culture Symptoms to Call Your Doctor About: Burning with urination Chest pain Increased blood in urine Pain unrelieved by medication Shortness of breath Temperature greater than 101 degrees F Urinary retention Appointments: You will need an additional stone procedure to treat the rest of your stones. Our office will call in the next few days to confirm an appointment time. If you do not hear from usin one week, please call [facility], . What can I expect from having a [...] you. It is important to keep taking namb-edj-[id number] Tylenol (acetaminophen) and ibuprofen unless your doctor [...] more than 6 hours after stent removal [facility] U[facility] Clinic: documented in this encounter Medications [...] mg per mouth 4 times tablet daily diclofenac (VOLTAREN) 50 mg Take 1 Tablet by 10 Tablet 0 EC tablet mouth 2 times daily as needed for Pain. docusate sodium (COLACE) Take 1 capsule by [...] 1 Tab by 0 tablet mouth daily phenazopyridine (PYRIDIUM) Take 1 Tablet by 10 Tablet 0 02/2021 200 mg tablet mouth 3 times daily as needed for Pain. QUEtiapine (SEROQUEL) 100 Take 100 mg by 0 mg tablet mouth 3 times daily. traZODone (DESYREL) 50 mg Take 25 mg by 0 tablet mouth 2 times daily. acetaminophen (TYLENOL) 325 Take 3 Tablets by 0 0 04/29/2021 05/17/2021 mg tablet mouth every 6 hours as needed for Pain. documented as of this encounter Ordered Prescriptions Prescription Sig Dispensed Refills Start Date End Date diclofenac (VOLTAREN) 50 mg Take 1 Tablet by 10 Tablet 0 EC tablet mouth 2 times daily as needed for Pain. phenazopyridine (PYRIDIUM) Take 1 Tablet by 10 Tablet 0 02/2021 200 mg tablet mouth 3 times daily as needed for Pain. acetaminophen (TYLENOL) 325 Take 3 Tablets by 0 0 04/29/2021 05/17/2021 mg tablet mouth every 6 hours as needed for Pain. documented in this encounter Discharge Disposition Disposition Code Departure Means Destination Nursing Facility (Skilled) documented in this encounter Progress Notes Wally Azul RN - 04/29/2021 1319 EDT Nursing Discharge Note D: Patient noted with discharge orders to: Return to SNF A: Prescriptions: no new medications Reviewed discharge instructions and prescriptions with patient / ambulance transportation Belongings collected and sent home with patient. R:Patient verbalized understanding of discharge instructions and denied further questions. WALLY AZUL RN 04/29/2021 13:19 a Foley - 04/29/2021 0950 EDT Initial Case Management/Social Work Assessment and Discharge Plan/Readmission Risk Assessment REASON FOR ADMISSION: Calculus of kidney Patient understands reason for admission: Yes PATIENT INFO VERIFIED: PCP not verified, Address, Contact Info Type of housing (single family, condo, apartment, detention, single room occupancy, [facility] funded hotel room, group fdc) - SNF Who does the patient live with? alone Does the patient have access to their own bedroom/bathroom/kitchen - or is it shared with others? shared Name of housing complex (ex [facility], [facility], etc)- n/a Housing Authority/Managing Organization - n/a Community Care Providers (case management social worker, [facility] nurse, etc) name and contact information- n/a LIVING ARRANGEMENTS AND ACCESSIBILITY ISSUES: Living Arrangements: [facility] What in home social supports are available to the patient? Other (See comment) (Staff at SNF) Is 16/04 care available? Yes ADVANCED DIRECTIVES, POA &/or COLST IN PLACE: Healthcare Directive: Yes, patient has advance directive for healthcare treatment Type of Healthcare Directive: Other (Comment) (COLST) Copy in Chart: Yes, previous copy on file @ [facility] DIRECTIVES FOR FINANCES: TRANSPORTATION: Transportation: Ambulance [facility] CULTURAL, BAHAI and/or LANGUAGE factors affecting health care/discharge planning: Spiritual/Cultural Requests: None Insurance Information: Medical Insurance: Yes Type of insurance: Medicaid Medicaid Type: LTC Medicaid Referred to patient financial services: No Nutrition: DISCHARGE RISK ASSESSMENT: Diagnosis of Diabetes;Requires assistance with ADLs/IADLs;Requires assistance in management of Oxygen and/or nebulizer;History of mental illness;Requires assistance with medication management Total # selected above: Score > or equal to 5: This patient is HIGH RISK for re-hospitalization Tentative plan to address the risk of re-hospitalization for those at HIGH MODERATE RISK: Other: (Return to SNF) RAPT TOOL: Age: 50-65 Gender: Female Ambulation distance: Housebound most of the time Community Services: None Will you live with someone who will care for you?: Yes RAPT Tool Score: 7 [facility] SBIRT: FUNCTIONAL STATUS: Activities patient requires assistance: Bathing, Dressing, Feeding, Food preparation/shopping, Grooming, In/Out of Bed, Mobility, Taking Medications, Toileting Assistive Device: Wheelchair, Slide board (Patient is mostly bedbound.) COMMUNITY RESOURCES/SUPPORTS: Primary Care Provider: Elian Taylor PCP Verified: Specialists: Other (Urology) DME Provider: Pharmacy: [id number] - [place], [place] - [address] [facility] [address] [facility] - [place], [place] - [address] [facility] [address] [facility] [address] Home Health: Other: POST HOSPITAL TRANSITION PLAN: 60 year old female with PMHX of DM, Bipolar Affective Disorder, Anxiety, CVA, Parkinson's and Tardive Dyskinesia, is s/p Rt nephrolithiasis 04/28/21. Patient was discussed in morning IDRs and is medically ready to return to her jail, [facility]. CM met with patient at the bedside. Patient's right arm appears contracted. She stated she is mostly bedbound and is gotten out of bed to wheelchair briefly once daily; she is bathed once weekly. NITESH informed the nurse on the A Wing ([phone]) that patient will be returning today by ambulance. [facility] ambulance was set up for 1:00 PM pick-up. Patient is in agreement with this plan. Ama Wilson RN MSN CCM grocery buyer Pager [phone] sophia Wilson 04/29/2021 9:50 Mikhail De La Cruz MD - 04/29/2021 0616 EDT Urology Progress Note Chief complaint: Right nephrolithiasis Procedure: s/p Right percutaneous nephrolithotomy (PCNL) with fluoroscopic- guided right renal access; right prone ureteroscopy, right antegrade pyelogram and right ureteral stent placement Date: 04/28/2021 24 hour events: ??? OR for above procedure ??? CXR in PACU ??? Afebrile, HDS Subjective: Had an okay night. Having bilateral lower extremity neuropathy pain. No surgical pain. [place] feverish. Diet: Tolerating PO intake. Ambulation: Has not been OOB Denies any nausea, vomiting, chest pain, shortness of breath. Objective: Blood pressure 97/62, temperature 37 ??C (98.6 ??F), temperature source Tympanic, resp. rate 16, height 165.1 cm (65), weight 75.8 kg (167 lb 1.7 oz), SpO2 95 %. Intake/Output Summary (Last 24 hours) at 04/29/2021 0616 Last data filed at 04/28/2021 2221 Gross per 24 hour Intake 1386.67 ml Output 0 ml Net 1386.67 ml Exam: Gen: NAD, non-toxic appearing. Resp: Unlabored on room air Abdominal: Soft, non-distended, non-tender Back: appropriately right CVA tenderness. No flank ecchymosis. Incisions, small, CDI. : Lozada draining dark pink urine Extremities: Warm and well perfused. Neuro: Alert and oriented, no gross motor or sensory deficits MSK: Normal ROM CBC Recent Labs 04/29/21 0247 WBC 6.14 RBC 3.89 HGB 11.1* HCT 34.4* MCV 88 MCHC 32.3 PLT 187 BMP Recent Labs 04/29/21 0247 CREATININE 0.56 BUN 11 NA 137 K 4.2 CL 97 CO2 27 Assessment: Ginger Barrera is a 60 y.o. female with right nephrolithiasis now currently s/p Right percutaneous nephrolithotomy (PCNL) with fluoroscopic-guided right renal access; right prone ureteroscopy, rightantegrade pyelogram and right ureteral stent placement . Recovering appropriately at this time, VSS, labs reassuring. CXR in PACU without pneumothorax. Will review CT Renal stone this morning to evaluate for residual stone burden. Follow up depending of residual stone burden. Plan: ??? CT Renal stone ??? Pain: Tylenol, Toradol, ? ? B&O prn, pyridium ??? Abx: Ceftriaxone 24 hrs ??? TAKE OUT WAITER Meds o Bupropion, Carbidopa-levodopa, Lamotrigine, Levothyroxine, Mirtazapine, Quetiapine, Trazodone o Sliding Scale insulin ??? Diet:Carb consistent o SLIV when tolerating good PO intake ??? Remove lozada catheter, voiding trial today ??? Activity as tolerated, encourage ambulation ??? Incentive spirometry ??? DVT Ppx: Heparin Dispo Planning ??? PATI: Likely today ??? Follow up: Pending CT Renal Stone review No future appointments. MIKHAIL JIMENEZ MD 04/29/2021 6:16 Weekdays from 7AM-5PM page the Urology Service Pager #[phone] with questions. Nights and weekends, please page through PAS. Moon Abarca RN - 04/28/2021 0810 EDT Preop Covid DOS screening questionnaire Please document by exception (only check those that apply). Have you had any of the following symptoms recently? No Yes Chronic ? Cough Shortness of breath or difficulty breathing Fever Chills Fatigue Muscle or body aches Severe Headache New loss of taste or smell Sore throat Congestion or runny nose Rash Nausea, vomiting, or diarrhea (rare in adults. More common in children) Were you covid tested? No When: n/a Results: n/a Vaccinated: YES If yes, have you self-isolated/quarantined since your test? n/a See admission vital signs documentation for admission temperature. documented in this encounter H&P Notes Araceli Cramer PA-C - 04/28/2021 0743 EDT The preoperative history and physical which was performed within 30 days of this procedure has been reviewed and the clinically appropriate elements of the physical examination havebeen repeated. There are no changes to the documented history and physical or if so such changes aredocumented below See H&P scan section DOS: 04/12/2021 Beatrice Haynes MD Lungs: CTA bilaterally CV: RRR Araceli Cramer PA-C 04/28/2021 7:43 documented in this encounter OR Notes OR Surgeon - Pastor Donaldson MD - 04/28/2021 1327 EDT OPERATIVE REPORT ?? SERVICE DATE: 04/28/2021 ?? SURGEON: Reji Foster MD ?? FUEL AGENT: Pastor Donaldson MD ?? PREOPERATIVE DIAGNOSIS: Right nephrolithiasis POSTOPERATIVE DIAGNOSIS: Right nephrolithiasis ?? PROCEDURE: Right percutaneous nephrolithotomy (PCNL) with fluoroscopic-guided right renal access; right prone ureteroscopy, right antegrade pyelogram and right ureteral stent placement ?? ANESTHESIA: General. ?? INDICATIONS: Ginger Barrera is a 60 year old female with history of kidney stones requiring right PCNL back in 2019. She has since formed additional stones in the same location, with most recent CT scan demonstrating a significant staghorn burden in the right kidney. She has not had any symptoms up until now regarding this, but given the degree of stone and likelihood to cause problems, the decisionwas made to pursue treatment perctuaneously. ?? NARRATIVE: After obtaining informed consent, the patient was brought electively to the operating theater and placed supine on the stretcher. Step 1 of the safety checklist was completed and perioperative antibiotics in the form of 2g IV ceftriaxone were administered. Venodynes were utilized for DVT prophylaxis. She underwent general anesthesia and was carefully flipped to the prone split- leg positionon the operating room bed. She was carefully secured including all pressure points. She was prepped and draped in usual sterile fashion with Betadine prep below, and with chloraprep on her back. Step 2of the safety checklist was completed. A flexible cystoscope was then introduced into her urethra and advanced into the bladder. The right orifice was visualized and cannulated with a sensor wire, advancing it into the right kidney with positioning confirmed on fluoroscopy. The cystoscope was then removed leaving the wire in good position. We then placed an 8-10 Fr dilator over the wire which advanced very easily, and removed the obturator. A bentson wire was then placed through the sheath into the right kidney was well, and the 10 Fr sheath was removed. We then placed a 12-14 Fr ureteral access sheath over the sensor wire. The sheath was placed under fluoroscopy to confirm positioning, and it didnot require much pressure to advance into the right proximal ureter. The inner obturator was removed, and we then advanced a digital flexible ureteroscope up the sheath and into the right kidney. A large stone was seen occupying most of the renal pelvis as well as severe calyces. We opted for an upperpole access site. Fluoroscopy was then used to obtain percutaneous access. This was with a single stick into an upper pole calyx. The sensor wire was cannulated through the needle sheath and the wire advanced down the ureter next to the ureteral sheath. The needle sheath was then removed, and a 15 blade was used to make a small incision medial and lateral to the wire, roughly 1 cm in size. We then vinh kasandra an 8-10 Fr dilator over the wire and into the renal pelvis. The obturator was removed, and the bentson was removed from below and placed through the 10 Fr sheath and down the ureter. The sheath wasremoved and we curled the bentson wire for safety. We then placed the balloon dilator over the sensor wire and advanced it just into the collecting system. Dilation was carried to 24 Fr. Once fully dilated, the sheath was advanced over the balloon and into the collecting sytem using fluoroscopy to confirm position. The balloon was deflated and removed. The sensor wire was secured. We then went in with the rigid nephroscope and immediately saw the large stone in the upper pole calyx. We then used the shock-pulse lithotripter to break up and remove the stone. We carefully removed all visible stone from the pelvis and multiple calyces. We also used a flexible cystoscope to examine the kidney and remove fragments with a basket, and similarly went from below with the digital ureteroscope to examine the proximal ureter and multiple small fragments were removed. We sent fragments for stone analysis, and also crushed some stone for culture. Once it appeared the stone had been sufficiently removed, we placed a 6 x 24 JJ ureteral stent over the sensor wire from above. The wire was removed and good curl was seen in the kidney and bladder on fluoroscopy. An 18 Fr lozada catheter was placed into the bladder and filled with 10 cc of water. The renal access sheath was carefully removed and manual pressure applied. There was good hemostasis. The incision was then closed with interrupted 3-0 vicryl. At this point the safety bentson wire was removed, and fluoro confirmed stent positioning above and below one additional time. All remaining instruments were removed, a dressing was applied to the surgical site, and the case was concluded. ?? ESTIMATED BLOOD LOSS: 10 mL ?? URINE OUTPUT: Not recorded ?? FLUIDS: Per anesthesia ?? SPECIMENS: Stone fragments for analysis ?? CULTURES: Stone culture ?? FOREIGN MATERIAL: Right 6 x 24 JJ ureteral stent; 18 Fr lozada catheter, 10 cc in balloon ?? COMPLICATIONS: None apparent ?? DISPOSITION: The patient was brought to PACU in good condition, then was admitted to urology floor. ?? Dr. Foster was present for the entirety of the procedure. ?? Pastor Donaldson MD 7:51 05/01/2021 documented in this encounter Miscellaneous Notes Plan of Care - Zoila Nair - 04/29/2021 1007 EDT Patient has a history of MRSA (click on Inf: MRSA in PRISM banner for details). Maintain contact precautions. Do not cohort at this time. Please call Infection Prevention with questions [phone]. lan of Care - Marie Pearson - 04/29/2021 0115 EDT Problem: Daily Care Plan Goals Goal: Care Plan Documentation Outcome: Met This Shift Flowsheets (Taken 04/29/2021114) Area of Focus: Sleep Goal This Shift: pt will sleep at least 4 hr this shift Data: Assume care of pt @ 1930, she is alert and oriented x3, able to make her needs known. Pt has limited mobility on R side r/t hx of stoke. Pt reports 6- 7/10 pain in bilateral feet, which she reports has been going on for a long time-MD aware. 0/10 surgical pain. VSS. CSMTs +. Blood pressure 106/73, temperature 37 ??C (98.6 ??F), temperature source Oral, resp. rate 12, height 165.1 cm (65), weight 75.8 kg (167 lb 1.7 oz), SpO2 99 %. Action: medicated per orders (see emar), horly rounding, q2hr reposition assistance, clustered care to promote rest, reduced stimulation to promote restful environment. Response: pt able to sleep a few hours over night, leg/foot pain persistent regardless of medication. No signs of injury or trama to feet/legs, CSMTs + in BLE and BUE. MARIE PEARSON RN 04/29/2021 1:16 lan of Care - Alejandra Smith RN - 04/28/2021 2585 EDT Admission Note D - This is a(n) 60 y.o. female who is being admitted This is post-op day for the patient. Patient is status-post urology surgery. Bloody urine draining from lozada. A - Vital signs taken. Patient oriented to unit and room. Call light and bed use reviewed. Call light within reach, bed placed in low position and table at bedside. Room is free of clutter. Repositioning/offloading to prevent skin breakdown. R - Continue to assess and monitor patient. 04/28/2021 17:46 ALEJANDRA SMITH RN rief Op Note - Pastor Donaldson MD - 04/28/2021 1134 EDT BRIEF OP NOTE Surgeon: Dr. Foster Linux Server Administrator: Dr. Donaldson Pre-op diagnosis: Right nephrolithiasis Post-op diagnosis: same Procedure: Right percutaneous nephrolithotomy (PCNL) with fluoroscopic-guided right renal access; right prone ureteroscopy, right antegrade pyelogram and right ureteral stent placement Anesth: GETA Findings: Single stick upper pole access, 24 Fr sheath, shock pulse lithotripter; good hemostasis EBL: 10 mL IVF: Per anesthesia UOP: Not recorded Specimen: Stone fragments for analysis Cultures: Stone culture Foreign Material Retained: Right 6 x 24 JJ ureteral stent; 18 Fr lozada, 10 cc in balloon Complications: None Dispo: PACU in good condition, then admit to urology Pastor Donaldson MD 04/28/2021 11:34 documented in this encounter Plan of Treatment Upcoming Encounters Date Type Specialty Care Team Description 06/13/2022 Appointment Radiology 06/13/2022 Office Visit Urology Reji Foster MD [address] [place] [address], [facility] [address] [place], [place] [address] (Wo rk) documented as of this encounter Procedures Procedure Name Priority Date/Time Associated Diagnosis Comme nts POCT GLUCOSE, Routine 04/29/2021 8:37 Results for this INTERFACED EDT procedure are i n the results section. CT RENAL STONE Routine 04/29/2021 6:49 Results fo r this EDT procedure are i n the results section. COMPLETE BLOOD COUNT Routine 04/29/2021 2:47 Resu lts for this EDT procedure are i n the results section. BUN Routine 04/29/2021 2:47 Results for this EDT procedure are i n the results section. GLUCOSE, SERUM Routine 04/29/2021 2:47 Results fo r this EDT procedure are i n the results section. CREATININE Routine 04/29/2021 2:47 Results for this EDT procedure are i n the results section. ELECTROLYTES Routine 04/29/2021 2:47 Results for this EDT procedure are i n the results section. POCT GLUCOSE, Routine 04/28/2021 20:19 Results fo r this INTERFACED EDT procedure are i n the results section. POCT GLUCOSE, Routine 04/28/2021 15:53 Results fo r this INTERFACED EDT procedure are i n the results section. XR CHEST PORTABLE 1 Routine 04/28/2021 12:11 Resu lts for this VIEW EDT procedure are i n the results section. POCT GLUCOSE, Routine 04/28/2021 11:47 Results fo r this INTERFACED EDT procedure are i n the results section. FL LOOPOGRAM Routine 04/28/2021 11:29 Results for this EDT procedure are i n the results section. KIDNEY STONE ANALYSIS Routine 04/28/2021 10:10 Re sults for this EDT procedure are i n the results section. STONE PROCESSING Today 04/28/2021 10:10 Results for this CHARGE EDT procedure are i n the results section. BACTERIAL Routine 04/28/2021 10:09 Results for this CULTURE/SMEAR EDT procedure are in the results section. NEPHROSTOLITHOTOMY, 04/28/2021 8:27 Nephrolithiasis PERCUTANEOUS, WITH EDT REMOVAL OF CALCULUS LESS THAN 2 CM IN DIAMETER Special Needs [facility] TYPE AND SCREEN STAT 04/28/2021 7:51 EDT Resul ts for this procedure are in the results section. POCT GLUCOSE, INTERFACED Routine 04/28/2021 7:45 EDT documented in this encounter Results (ABNORMAL) POCT GLUCOSE, INTERFACED (04/29/2021 8:37 EDT) Glucose, POC 212 (H) 70 - 100 [facility] mg/dL LABORATORY SERVICES HN LAB POC COMMENT Test Performed by [facility] [place] (GLUCOSE) Nursing Services LABORATORY SERVICES Specimen Blood - Capillary blood (substance) Performing Organization Address City/State/ZIP Code Phon e Number [facility] LABORATORY [address] [place] [address] RENAL STONE (04/29/2021 6:49 EDT) Anatomical Region Laterality Modality Body, Abdomen Computed Tomography Specimen Narrative [facility] - 04/29/2021 11:[address] RENAL STONE ??04/29/2021 6:30 AM Signs and Symptoms/Comments: ?? s/p R PCNL; assess for residual stone bu rden; Flank pain, kidney stone suspected CT RENAL STONE ??04/29/2021 6:30 AM Signs and Symptoms/Comments: ?? s/p R PCNL; assess for residual stone bu rden; Flank pain, kidney stone suspected. Technique: ?? Helical CT images of the abdomen and pel vis were obtained from the top of the kidneys to the symphysis pubis. ??No contrast was administered. Comparison: ?? November 05, 2020, outside CT scan Findings: Hepatobiliary and gallbladder : ??There are no contour deforming lesions in the liver. The gallbladder is partially contracted. Spleen and pancreas: No contour deformin g lesions are present in the spleen. There is partial fatty replacement of the pancreas. Adrenals and kidneys: Adrenal glands are normal. Previously identified stone in the right renal pelvis is no longer present. There are multiple additional stones within the collecting system of the righ t kidney which are similar to that of th e previous exam. Interval placement of a right ureteral stent, which appears well positioned. There is a mild degree of hydronephrosis, best appreciated on the coronal study. There is a lobulated contour to the left kidney. The left kidney demonstrates no evidence of hydronephrosis or calculi. Urinary bladder, uterus and ovaries: The urinary bladder is decompressed by Lozada catheter. Distal portion of the stent is present within the urinary bladder. The uterus is again noted to be enlarged , similar to that of the exam from 2019. No adnexal masses. Bowel: There is a large amount of stool in the rectum. Scattered diverticula in the colon Lymphovascular: No pathologically enlarg ed lymph nodes. There is atherosclerosis. Peritoneal cavity: No free fluid Musculoskeletal: Bones are osteopenic. D egenerative changes are present at L5-S1 Lung bases: ?? Minimal bibasilar atelect asis Impressions: 1. Previously identified stone in the ri ght renal pelvis is no longer present. The remainder of the previously identified stones in the collecting system of the right kidney are unchanged. 2. Mild degree of right-sided hydronephr osis. Right ureteral stent is well-positioned. 3. Unchanged appearance of the enlarged uterus, which is most likely fibroid in nature 4. Colonic diverticulosis. 5. Large amount of stool in the rectum Procedure Note Sandra Montana MD - 04/29/2021 CT RENAL STONE 04/29/2021 6:30 AM Signs and Symptoms/Comments: s/p R PCNL; assess for residual stone bu rden; Flank pain, kidney stone suspected CT RENAL STONE 04/29/2021 6:30 AM Signs and Symptoms/Comments: s/p R PCNL; assess for residual stone bu rden; Flank pain, kidney stone suspected. Technique: Helical CT images of the abdomen and pel vis were obtained from the top of the kidneys to the symphysis pubis. No contrast was administered. Comparison: November 05, 2020, outside CT scan Findings: Hepatobiliary and gallbladder : There ar e no contour deforming lesions in the liver. The gallbladder is partially contracted. Spleen and pancreas: No contour deformin g lesions are present in the spleen. There is partial fatty replacement of the pancreas. Adrenals and kidneys: Adrenal glands are normal. Previously identified stone in the right renal pelvis is no longer present. There are multiple additional stones within the collecting system of the right kidney which are similar to that of the previous exam . Interval placement of a right ureteral stent, which appears well positioned. There is a mild degree of hydronephrosis, best appreciated on the coronal study. There is a lobulated contour to the left kidney. The left kidney demonstrates no evidence of hydronephrosis or calculi. Urinary bladder, uterus and ovaries: The urinary bladder is decompressed by Lozada catheter. Distal portion of the stent is present within the urinary bladder. The uterus is again noted to be enlarged , similar to that of the exam from 2019. No adnexal masses. Bowel: There is a large amount of stool in the rectum. Scattered diverticula in the colon Lymphovascular: No pathologically enlarg ed lymph nodes. There is atherosclerosis. Peritoneal cavity: No free fluid Musculoskeletal: Bones are osteopenic. D egenerative changes are present at L5-S1 Lung bases: Minimal bibasilar atelectasi s Impressions: 1. Previously identified stone in the ri ght renal pelvis is no longer present. The remainder of the previously identified stones in the collecting system of the right kidney are unchanged. 2. Mild degree of right-sided hydronephr osis. Right ureteral stent is well-positioned. 3. Unchanged appearance of the enlarged uterus, which is most likely fibroid in nature 4. Colonic diverticulosis. 5. Large amount of stool in the rectum Performing Organization Address City/[facility]/ZIP Code Phon e Number [facility] (ABNORMAL) GLUCOSE, SERUM (04/29/2021 2:47 EDT) Pathologist [facility] Glucose 259 (H) 70 - 100 mg/dL [facility] LABORAT ORY SERVICES Specimen Blood - Venous blood (substance) Performing Organization Address [facility]/ZIP Code Phon e Number [facility] LABOR[facility] [address] [place] [address] SERVICES CREATININE (04/29/2021 2:47 EDT) Creatinine 0.56 0.52 - 1.04 [facility] mg/dL LABORATORY SERVICES eGFR 102Comment: eGFR >60 [facility] calculated using mL/min/1.73m2 LABORATORY SERVICES CKD-EPI equation for non- Americans. Multiply eGFR by 1.16 for patients. Specimen Blood - Venous blood (substance) Performing Organization Address City/[facility]/ZIP Code Phon e Number [facility] [address] [place] [address] SERVICES BUN (04/29/2021 2:47 EDT) Pathologist Sig nature BUN 11 10 - 26 mg/dL [facility] LABORATO RY SERVICES Specimen Blood - Venous blood (substance) Performing Organization Address [facility]/ZIP [facility] Phon e Number [facility] LABORATORY [address] [place] [address] SERVICES ELECTROLYTES (04/29/2021 2:47 EDT) Pathologist Sig nature Sodium 137 136 - 145 mEq/L [facility] LABORA TORY SERVICES Potassium 4.2 3.5 - 5.0 mEq/L [facility] LABORA TORY SERVICES Chloride 97 96 - 110 mEq/L [facility] LABORAT ORY SERVICES CO2 Total 27 22 - 32 mEq/L [facility] LABORATO RY SERVICES Specimen Blood - Venous blood (substance) Performing Organization Address City/State/ZIP Code Phon e Number [facility] LABORATORY [address] [place] [address] SERVICES (ABNORMAL) COMPLETE BLOOD COUNT (04/29/2021 2:47 EDT) Pathologist Sig nature WBC 6.14 4.00 - 12.40 K/cmm [facility] LABORATORY SERVICES RBC 3.89 3.86 - 5.04 M/cmm [facility] LABORATORY SERVICES Hemoglobin 11.1 (L) 11.6 - 15.2 gm/dL [facility] LABORATORY SERVICES HCT 34.4 (L) 34.9 - 44.4 % [facility] LABORATORY SERVICES MCV 88 81 - 98 fl [facility] LABORATORY SERVICES MCH 28.5 26.7 - 33.3 pg [facility] LABORATORY SERVICES MCHC 32.3 32.1 - 35.9 gm/dL [facility] LABORATORY SERVICES RDW-CV 14.6 <14.7 % [facility] LABORATORY SERVICES RDW-SD 47.5 <50.4 fl [facility] LABORATORY SERVICES PLT 187 141 - 377 K/cmm [facility] LABORATORY SERVICES MPV 10.0 9.5 - 12.7 fl [facility] LABORATORY SERVICES Specimen Blood - Venous blood (substance) Performing Organization Address City/State/ZIP Code Phon e Number [facility] LABOR[facility] [address] [place] [address] SERVICES (ABNORMAL) POCT GLUCOSE, INTERFACED (04/28/2021 20:19 EDT) Glucose, POC 214 (H) 70 - 100 [facility] mg/dL LABORATORY SERVICES HN LAB POC COMMENT Test Performed by [facility] [place] (GLUCOSE) Nursing Services LABORATORY SERVICES Specimen Blood - Capillary blood (substance) Performing Organization Address City/State/ZIP Code Phon e Number [facility] LAB[facility] [address] [place] [address] SERVICES (ABNORMAL) POCT GLUCOSE, INTERFACED (04/28/2021 15:53 EDT) Glucose, POC 123 (H) 70 - 100 [facility] mg/dL LABORATORY SERVICES HN LAB POC COMMENT Test Performed by [facility] [place] (GLUCOSE) Nursing Services LABORATORY SERVICES Specimen Blood - Capillary blood (substance) Performing Organization Address City/State/ZIP Code Phon e Number [facility] LAB[facility] [address] [place] [address] SERVICES XR CHEST PORTABLE 1 VIEW (04/28/2021 12:11 EDT) Anatomical Region Laterality Modality Computed Radiography Specimen Impressions [facility] RADIOLOGY [facility] - 04/28/2021 14:55 EDT 1. ??No evidence of pneumothorax or pleural effusions but cannot be excluded on this semiupright portable AP radiograph. I have personally reviewed the images an d the above interpretation and agree with the findings. Narrative [facility] - 04/28/2021 14:55 EDT XR CHEST PORTABLE 1 VIEW ??04/28/2021 12:00 PM CLINICAL HISTORY/COMMENTS: s/p R PCNL with supracostal renal access , r/o PTX > to be done in PACU COMPARISON: Radiograph of the chest from December 05. FINDINGS: Single portable AP view of the chest. Pa tient is 65 degrees upright. Lines/tubes: ??None present. Soft tissues, bones and extrathoracic fi ndings: Cervical spine hardware is present. No significant abnormalities. Cardiac and mediastinal contours: The ca rdiomediastinal silhouette is normal. Lungs: The lungs are clear with normal p ulmonary vasculature. Pleura: No evidence of pneumothorax or p leural effusions but cannot be excluded on this semiupright portable AP radiograph. Procedure Note Jimbo Wilson MD - 04/28/2021 XR CHEST PORTABLE 1 VIEW 04/28/2021 12:00 PM CLINICAL HISTORY/COMMENTS: s/p R PCNL with supracostal renal access , r/o PTX > to be done in PACU COMPARISON: Radiograph of the chest from December 05. FINDINGS: Single portable AP view of the chest. Pa tient is 65 degrees upright. Lines/tubes: None present. Soft tissues, bones and extrathoracic fi ndings: Cervical spine hardware is present. No significant abnormalities. Cardiac and mediastinal contours: The ca rdiomediastinal silhouette is normal. Lungs: The lungs are clear with normal p ulmonary vasculature. Pleura: No evidence of pneumothorax or p leural effusions but cannot be excluded on this semiupright portable AP radiograph. IMPRESSION 1. No evidence of pneumothorax or pleura l effusions but cannot be excluded on this semiupright portable AP radiograph. I have personally reviewed the images an d the above interpretation and agree with the findings. Performing Organization Address City/State/ZIP Code Phon e Number [facility]Y [facility] (ABNORMAL) POCT GLUCOSE, INTERFACED (04/28/2021 11:47 EDT) Pathologist [facility] Glucose, POC 156 (H) 70 - 100 [facility] mg/dL LABORATORY SERVICES HN LAB POC COMMENT Test Performed by [facility] Screen (GLUCOSE) Nursing Services LABORATORY SERVICES Specimen Blood - Capillary blood (substance) Performing Organization Address [facility]/ZIP Code Phon e Number [facility] LABORATORY [address] [place] [address] SERVICES FL LOOPOGRAM (04/28/2021 11:29 EDT) Specimen Narrative 04/28/2021 11:31 EDT This is a non-reportable exam. KIDNEY STONE ANALYSIS (04/28/2021 10:10 EDT) [facility] Stone Analysis Not Reported [facility] LABORATORIES Interpretation SEE NOTE [facility] Comment: LABORATORIES RESULT: 100% Magnesium ammonium phosphate (struvite) Test Performed by: [facility] - [address] [address] Terrazzo Mechanic: Gordo Lynne M.D. Ph.D.; CLIA# [id number] Source: Right Kidney [facility] LABOR[facility]IES Specimen Calculus - Entire kidney (body structure ) Performing Organization Address [facility] Phon e Number [facility] LABOR[facility]IES [address] [place] [address] STONE PROCESSING CHARGE (04/28/2021 10:10 EDT) Pathologist [facility] Stone Processing Performed [facility] Charge Comment: LABORATORIES Test Performed by: [facility] - [address] [address] [employer] Mechanic: Grodo Lynne M.D. Ph.D.; IA# [id number] Specimen Calculus - Entire kidney (body structure ) Performing Organization Address City/State/ZIP Code Phon e Number [facility] LABOR[facility] [address] [place] [address] (ABNORMAL) BACTERIAL CULTURE/SMEAR (04/28/2021 10:09 EDT) Pathologist Sig nature Organism ID Few Proteus mirabilis [facility] (A) LABORATORY SERVICES Smear No Neutrophils Seen [facility] LABORATORY SERVICES Smear No bacteria seen [facility] LABORATORY SERVICES Specimen Calculus - Entire kidney (body structure ) Organism Antibiotic Method Susceptibility Proteus mirabilis Amikacin VITEK SUSCEPTIBILITY <=2 ug/mL : Susceptible Proteus mirabilis Ampicillin VITEK SUSCEPTIBILITY >=32 ug/m L: Resistant Proteus mirabilis Ampicillin Sulbactam VITEK SUSCEPTIBILITY >=32 ug/mL: Resistant Proteus mirabilis Ceftazidime VITEK SUSCEPTIBILITY <=1 ug/mL : Susceptible Proteus mirabilis Ceftriaxone VITEK SUSCEPTIBILITY <=1 ug/mL : Susceptible Proteus mirabilis Ciprofloxacin VITEK SUSCEPTIBILITY >=4 ug/mL : Resistant Proteus mirabilis Ertapenem VITEK SUSCEPTIBILITY <=0.5 ug/ mL: Susceptible Proteus mirabilis Gentamicin VITEK SUSCEPTIBILITY 8 ug/mL: Intermediate Proteus mirabilis Meropenem VITEK SUSCEPTIBILITY <=0.25 ug /mL: Susceptible Proteus mirabilis Piperacillin Tazobactam VITEK SUSCEPTIBILITY < =4 ug/mL: Susceptible Proteus mirabilis Tobramycin VITEK SUSCEPTIBILITY 8 ug/mL: Intermediate Proteus mirabilis Trimethoprim-Sulfametho VITEK SUSCEPTIBILITY > =320 ug/mL: Resistant xazole Performing Organization Address City/State/ZIP Code Phon e Number [facility] [address] [place] [address] SERVICES TYPE AND SCREEN (04/28/2021 7:51 EDT) ABO A [facility] BLOOD BANK Rh Factor Positive [facility] BLOOD [facility] Antibody Screen Negative [facility] BLOOD BANK Specimen Expires: 05/01/2021 @ 23:59 [facility] BLOOD [facility] Specimen Blood - Venous blood (substance) Performing Organization Address City/State/ZIP Code Phon e Number [facility] BLOOD BANK [address] [place] [address] (ABNORMAL) POCT GLUCOSE, INTERFACED (04/28/2021 7:45 EDT) Glucose, POC 137 (H) 70 - 100 [facility] mg/dL LABORATORY SERVICES HN LAB POC COMMENT Test Performed by [facility] [place] (GLUCOSE) Nursing Services LABORATORY SERVICES Specimen Blood - Capillary blood (substance) Performing Organization Address City/State/ZIP Code Phon e Number [facility] [address] [place] [address] SERVICES documented in this encounter Visit Diagnoses Diagnosis Calculus of kidney - Primary Staghorn calculus Calculus of kidney Nephrolithiasis Calculus of kidney documented in this encounter Admitting Diagnoses Diagnosis Calculus of kidney documented in this encounter Administered Medications Inactive Administered Medications - up to 3 most recent administrations Medication Order MAR Action Action Date Dose Rate Site acetaminophen (TYLENOL) suppository 650 mg 650 mg, rectal, EVERY 4 HOURS PRN, Start ing on Sun04/28/21 at 1744, Until Sun04/29/21 at 1527, Pain, Routine acetaminophen (TYLENOL) tablet 650 mg 650 mg, oral, EVERY 4 HOURS PRN, Startin g on Sun04/28/21 at 1744, Until Sun04/29/21 at 1527, Pain, Routine aspirin chewable tablet 81 mg Given 04/28/2021 8:22 EDT 81 mg 81 mg, oral, PRE-OP ONCE, 1 dose, On Sun04/28/21 at 0815, STAT, Preprocedure aspirin chewable tablet 81 mg Given 04/29/2021 9:11 EDT 81 mg 81 mg, oral, DAILY, First dose on Sun04/29/21 at 0900, Until Discontinued, Routine buPROPion (WELLBUTRIN SR) SR tablet 450 mg Given 04/29/2021 9:10 EDT 450 mg 450 mg, oral, DAILY, First dose on Sun04/29/21 at 0900, Until Discontinued, Routine carbidopa-levodopa (SINEMET) 25-100 mg per Given 04/28/2021 8:23 EDT 1 Tablet tablet 1 Tablet 1 Tablet, oral, PRE-OP ONCE, 1 dose, On Sun04/28/21 at 0815, STAT, Preprocedure carbidopa-levodopa (SINEMET) 25-100 mg per Given 04/29/2021 13:0 4 EDT 1 Tablet tablet 1 Tablet 1 Tablet, oral, 4 TIMES DAILY, First dose on Sun04/28/21 at 2100, Until Discontinued, Routine Given 04/29/2021 9:10 EDT 1 Tablet Given 04/28/2021 20:18 EDT 1 Tablet cefTRIAXone (ROCEPHIN) 2,000 mg in sodium Given 04/28/2021 8:32 EDT 2,000 mg chloride (NS MBP) 50 mL IVPB 2,000 mg, intravenous, Administer over 30 Minutes, PRE-OP ONCE, 1 dose, On Sun04/28/21 at 0800, Type of Therapy: Definitive, Based on Cultures, Suspected Indication (Select all that apply): Urinary tract infection, Routine, Preprocedure heparin injection 5,000 Given 04/29/2021 9:11 EDT 5,000 Units Left Lower Abdomen Units 5,000 Units, subcutaneous, EVERY 8 HOURS, First dose on Sun04/28/21 at 2100, Until Discontinued, Routine Given 04/28/2021 20:18 EDT 5,000 Units HYDROmorphone (DILAUDID) tablet 2 mg Given 04/29/2021 13:04 EDT 2 mg 2 mg, oral, EVERY 4 HOURS PRN, Starting on Sun04/28/21 at 1744, Until Sun04/29/21 at 1527, Pain, Routine Given 04/28/2021 20:18 EDT 2 mg HYDROmorphone (PF) (DILAUDID) 0.5 mg/0.5 mL Given 04/28/2021 12: 19 EDT 0.5 mg syringe 0.3-0.5 mg 0.3-0.5 mg, intravenous, EVERY 10 MINUTES PRN, Starting on Sun04/28/21 at 1123, Until Sun04/28/21 at 1723, Pain, Routine, Recovery (only) insulin aspart U-100 (NOVOLOG FLEXPEN) Given 04/29/2021 9:39 EDT 5 Units injection subcutaneous, 3 TIMES DAILY WITH MEALS, First dose on Sun04/28/21 at 1700, Until Discontinued, Routine iohexoL (OMNIPAQUE 300) injection Given 04/28/2021 11:07 EDT 150 mL As needed, Starting on Sun04/28/21 at 1107, Until Sun04/28/21 at 1107, Routine, Intraprocedure ketOROLAC (TORADOL) injection 15 mg Given 04/29/2021 10:50 EDT 15 mg 15 mg, intravenous, EVERY 6 HOURS PRN, Starting on Sun04/28/21 at 1744, Until Sun04/29/21 at 1527, Pain, Routine Given 04/29/2021 2:21 EDT 15 mg Given 04/28/2021 18:28 EDT 15 mg lactated ringers (LR) infusion Restarted 04/28/2021 8:41 EDT at 30 mL/hr, 30 mL/hr, intravenous, CONTINUOUS, Starting on Sun04/28/21 at 0800, Until Sun04/28/21 at 1744, Routine, Preprocedure Continued by Anesthesia 04/28/2021 8:37 EDT 30 mL/hr New Bag 04/28/2021 7:45 EDT 30 mL/hr 30 mL/hr lactated ringers (LR) infusion New Bag 04/28/2021 22:21 EDT 100 mL/hr 100 mL/hr at 100 mL/hr, 100 mL/hr, intravenous, CONTINUOUS, Starting on Sun04/28/21 at 1300, Until Sun04/29/21 at 0817, Routine New Bag 04/28/2021 13:29 EDT 100 mL/hr 100 mL/hr lamoTRIgine (LAMICTAL) tablet 50 mg Given 04/29/2021 9:09 EDT 50 mg 50 mg, oral, DAILY, First dose on Sun04/29/21 at 0900, Until Discontinued levothyroxine (SYNTHROID) tablet 125 mcg Given 04/28/2021 8:23 EDT 125 mcg 125 mcg, oral, PRE-OP ONCE, 1 dose, On Sun04/28/21 at 0815, STAT, Preprocedure levothyroxine (SYNTHROID) tablet 125 mcg Given 04/29/2021 9:11 EDT 125 mcg 125 mcg, oral, DAILY, First dose on Sun04/29/21 at 0900, Until Discontinued, Routine mirtazapine (REMERON) tablet 15 mg Given 04/28/2021 20:18 EDT 15 mg 15 mg, oral, AT BEDTIME, First dose on Sun04/28/21 at 2100, Until Discontinued, Routine ondansetron (PF) (ZOFRAN) injection 4 mg Given 04/28/2021 13:34 EDT 4 mg 4 mg, intravenous, PRN, 1 dose, Starting on Sun04/28/21 at 1123, Until Sun04/28/21 at 1334, Nausea, Vomiting, Routine, Recovery (only) ondansetron (PF) (ZOFRAN) injection 4 mg 4 mg, intravenous, EVERY 4 HOURS PRN, Starting on Sun04/28/21 at 1744, Until Sun04/29/21 at 1527, Nausea, Routine ondansetron (ZOFRAN-ODT) disintegrating tablet 4 mg 4 mg, oral, EVERY 4 HOURS PRN, Starting on Sun04/28/21 at 1744, Until Sun04/29/21 at 1527, Nausea, Routine promethazine (PHENERGAN) suppository 12. 5 mg 12.5 mg, rectal, EVERY 6 HOURS PRN, Starting on 02/11 at 1744, Until Sun04/29/21 at 1527, Nausea, Routine promethazine (PHENERGAN) tablet 12.5 mg 12.5 mg, oral, EVERY 6 HOURS PRN, Starti ng on Sun04/28/21 at 1744, Until Sun04/29/21 at 1527, Nausea, Routine QUEtiapine (SEROQUEL) tablet 100 mg Given 04/28/2021 8:23 EDT 100 mg 100 mg, oral, PRE-OP ONCE, 1 dose, On Sun04/28/21 at 0815, STAT, Preprocedure QUEtiapine (SEROQUEL) tablet 100 mg Given 04/29/2021 9:10 EDT 100 mg 100 mg, oral, 3 TIMES DAILY, First dose on Sun04/28/21 at 2100, Until Discontinued, Routine Given 04/28/2021 20:18 EDT 100 mg sodium chloride 0.9 % (flush) flush 3 mL Given 04/29/2021 9:16 EDT 3 mL 3 mL, intravenous, EVERY 8 HOURS, First dose on Sun04/29/21 at 0845, Until Discontinued, Routine sodium chloride 0.9 % irrigation Given 04/28/2021 11:07 EDT 3,000 mL As needed, Starting on Sun04/28/21 at 0902, Until Sun04/28/21 at 0907, Routine, Intraprocedure Given 04/28/2021 9:02 EDT 3,000 mL traZODone (DESYREL) tablet 25 mg Given 04/29/2021 9:10 EDT 25 mg 25 mg, oral, 2 TIMES DAILY, First dose on Sun04/28/21 at 2100, Until Discontinued, Routine Given 04/28/2021 20:18 EDT 25 mg documented in this encounter Active and Recently Administered Medications Times are shown in EDT. Scheduled Medication Order 04/27/2021 04/28/2021 04/29/2021 aspirin chewable tablet 81 mg (COMPLETED) 821 (Given - Provider: Moon Abarca RN) 81 mg, oral, PRE-OP ONCE, 1 dose, On Sun04/28/21 at 0815, STAT, P reprocedure aspirin chewable tablet 81 mg 06 04 (Given - Provider: Wally Azul RN) 81 mg, oral, DAILY, First dose on 03/14 at 0900, Until Discontinued, Routine buPROPion (WELLBUTRIN SR) SR tablet 450 mg 909 (Given - Provider: Wally Azul RN) 450 mg, oral, DAILY, First dose on Sun at 0900, Until Discontinued, Routine carbidopa-levodopa (SINEMET) 25-100 mg per tablet 1 Tablet ( COMPLETED) 822 (Given - Provider: Moon Abarca RN) 1 Tablet, oral, PRE-OP ONCE, 1 dose, On Sun04/28/21 at 0815, STAT, Preprocedure carbidopa-levodopa (SINEMET) 25-100 mg per tablet 1 Tablet 2017 (Given - Provider: Marie Pearson) 09 (Given - Provider: Wally Azul RN)130 (Given - Provider: Wally Azul RN) 1 Tablet, oral, 4 TIMES DAILY, First dos e on Sun04/28/21 at 2100, Until Discontinued, Routine cefTRIAXone (ROCEPHIN) 2,000 mg in sodiu m chloride (NS MBP) 50 mL IVPB (COMPLETED) 831 (Given - Provider: Moon Abarca RN) 2,000 mg, intravenous, Administer over 3 0 Minutes, PRE-OP ONCE, 1 dose, On Sun04/28/21 at 0800, Type of Therapy: Definitive, Based on Cultures, Suspected Indication (Select all that apply): Urinary tract infection, Routine, Preprocedure heparin injection 5,000 Units 2017 (Given - Prov ider: Marie Pearson) 910 (Given - Provider: Wally Azul RN) 5,000 Units, subcutaneous, EVERY 8 HOURS , First dose on Sun04/28/21 at 2100, Until Discontinued, Routine insulin aspart U-100 (NOVOLOG FLEXPEN) injection 1629 (Not Given - Provider: Sonia Mccall RN - Reason: Order parameters not met - Comment: fingerstick [phone]) 0939 (Given - Provider: Wally Azul RN - Comment: [id number] (Not Given - Provider: Wally Azul RN - Reason: Patient off unit) subcutaneous, 3 TIMES DAILY WITH MEALS, First dose on Sun04/28/21 at 1700, Until Discontinued insulin aspart U-100 (NOVOLOG FLEXPEN) injection 2018 (Not Given - Provider: Marie Pearson - Reason: Order parameters not met - Comment: [phone]) subcutaneous, AT BEDTIME, First dose on Sun04/28/21 at 2100, Until Discontinued lamoTRIgine (LAMICTAL) tablet 50 mg 908 (Given - Provider: Wally Azul RN) 50 mg, oral, DAILY, First dose on Sun04/29/21 at 0900, Until Disc ontinued levothyroxine (SYNTHROID) tablet 125 mcg (COMPLETED) 822 (Given - Provider: Moon Abarca RN) 125 mcg, oral, PRE-OP ONCE, 1 dose, On Sun04/28/21 at 0815, STAT, Preprocedure levothyroxine (SYNTHROID) tablet 125 mcg 910 (Given - Provider: Wally Azul RN) 125 mcg, oral, DAILY, First dose on Sun04/29/21 at 0900, Until Discontinued, Routine mirtazapine (REMERON) tablet 15 mg 2017 (Given - Provider: Marie Pearson) 15 mg, oral, AT BEDTIME, First dose on 04/28/21 at 2100, Until Discontinued, Routine QUEtiapine (SEROQUEL) tablet 100 mg (COMPLETED) 822 (Given - Provider: Moon Abarca RN) 100 mg, oral, PRE-OP ONCE, 1 dose, On Sun04/28/21 at 0815, STAT, Preprocedure QUEtiapine (SEROQUEL) tablet 100 mg 2017 (Given - Provider: Marie Pearson) 0910 (Given - Provider: Wally Azul RN)1305 (Not Given - Provider: Wally Azul RN - Reason: Patient off unit) 100 mg, oral, 3 TIMES DAILY, First dose on Sun04/28/21 at 2100, Until Discontinued, Routine sodium chloride 0.9 % (flush) flush 3 mL(Linked Group 1) 0916 (Given - Provider: Wally Azul RN) 3 mL, intravenous, EVERY 8 HOURS, First dose on Sun04/29/21 at 0845, Until Discontinued, Routine traZODone (DESYREL) tablet 25 mg 2017 (Given - P rovider: Marie Pearson) 09 (Given - Provider: Wally Azul RN) 25 mg, oral, 2 TIMES DAILY, First dose o n Sun04/28/21 at 2100, Until Discontinued, Routine Continuous Medication Order 04/27/2021 04/28/2021 04/29/2021 lactated ringers (LR) infusion (CANCELED) 0745 (New Bag - Provider: Moon Abarca RN)0837 (Continued by Anesthesia - Provider: FIORDALIZA Perkins)0840 (Paused - Provider: Michael Alvarez MD - Comment: Switch to gravity)0841 (Restarted - Provider: Michael Alvarez MD) at 30 mL/hr, 30 mL/hr, intravenous, CONT INUOUS, Starting on Sun04/28/21 at 0800, Until Sun04/28/21 at 1744, Routine, Preprocedure 1143 ( Anesthesia Volume Adjustment - Provider: Lynn Bright MD) lactated ringers (LR) infusion (CANCELED) 1329 (New Bag - Provider: Lynda Tucker RN)2221 (New Bag - Provider: Marie Pearson) 0852 (IV Stopped - Provider: Wally Azul RN) at 100 mL/hr, 100 mL/hr, intravenous, CO NTINUOUS, Starting on Sun04/28/21 at 1300, Until Sun04/29/21 at 0817, Routine PRN Medication Order 04/27/2021 04/28/2021 04/29/2021 acetaminophen (TYLENOL) suppository 650 mg(Linked Group 2) 650 mg, rectal, EVERY 4 HOURS PRN, Start ing on Maria Eugenia 04/28/21 at 1744, Until Sun04/29/21 at 1527, Pain, Routine acetaminophen (TYLENOL) tablet 650 mg(Linked Group 2) 650 mg, oral, EVERY 4 HOURS PRN, Startin g on Maria Eugenia 04/28/21 at 1744, Until Sun04/29/21 at 1527, Pain, Routine belladonna - opium (B&O SUPPRETTES) 16.2-60 mg suppository 1 Sup pository 1 Suppository, rectal, EVERY 6 HOURS PRN , Starting on Maria Eugenia 04/28/21 at 1744, Until Sun04/29/21 at 1527, Bladder Spasm, Routine bisacodyL (DULCOLAX) suppository 10 mg 10 mg, rectal, DAILY PRN, Starting on u 04/28/21 at 1744, Until Sun04/29/21 at 1527, Constipation, Routine dextrose 50 % solution 12.5 g 12.5 g (25 mL), intravenous, PRN, Starti ng on Maria Eugenia 04/28/21 at 1744, Until Sun04/29/21 at 1527, Low Blood Sugar, Routine docusate sodium (COLACE) capsule 200 mg 200 mg, oral, 2 TIMES DAILY PRN, Startin g on Maria Eugenia 04/28/21 at 1744, Until Sun04/29/21 at 1527, Constipation, Routine glucagon injection 1 mg 1 mg, intramuscular, PRN, Starting on u 04/28/21 at 1744, Until Sun04/29/21 at 1527, Other, Low blood sugar, Routine HYDROmorphone (DILAUDID) tablet 2 mg 2017 (Given - Provider: Marie Pearson) 1304 (Given - Provider: Wally Azul RN) 2 mg, oral, EVERY 4 HOURS PRN, Starting on Maria Eugenia 04/28/21 at 1744, Until Sun04/29/21 at 1527, Pain, Routine HYDROmorphone (PF) (DILAUDID) 0.5 mg/0.5 mL syringe 0.3-0.5 mg (CANCELED) 1219 (Given - Provider: Sonia Mccall RN) 0.3-0.5 mg, intravenous, EVERY 10 MINUTE S PRN, Starting on Maria Eugenia 04/28/21 at 1123, Until Sun04/28/21 at 1723, Pain, Routine, Recovery (only) iohexoL (OMNIPAQUE 300) injection (CANCELED) 1107 (Given - Provider: Reji Foster MD) As needed, Starting on Sun04/28/21 at 110 7, Until Sun04/28/21 at 1107, Routine, Intraprocedure ketOROLAC (TORADOL) injection 15 mg 1828 (Given - Provider: Alejandra Smith RN) 0221 (Given - Provider: Marie Pearson) 1050 (Given - Provider: Wally Azul RN) 15 mg, intravenous, EVERY 6 HOURS PRN, S tarting on Maria Eugenia 04/28/21 at 1744, Until Sun04/29/21 at 1527, Pain, Routine melatonin tablet 5 mg 5 mg, oral, AT BEDTIME PRN, Starting on Maria Eugenia 04/28/21 at 1744, Until Sun04/29/21 at 1527, Other, Sleep, Routine ondansetron (PF) (ZOFRAN) injection 4 mg (COMPLETED) 1334 (Given - Provider: Lynda Tucker RN) 4 mg, intravenous, PRN, 1 dose, Starting on Maria Eugenia 04/28/21 at 1123, Until Maria Eugenia 04/28/21 at 1334, Nausea, Vomiting, Routine, Recovery (only) ondansetron (PF) (ZOFRAN) injection 4 mg(Linked Group 3) 4 mg, intravenous, EVERY 4 HOURS PRN, St arting on Maria Eugenia 04/28/21 at 1744, Until Sun04/29/21 at 1527, Nausea, Routine ondansetron (ZOFRAN-ODT) disintegrating tablet 4 mg(Linked Group 3) 4 mg, oral, EVERY 4 HOURS PRN, Starting on Sun04/28/21 at 1744, Until Sun04/29/21 at 1527, Nausea, Routine phenazopyridine (PYRIDIUM) tablet 200 mg 200 mg, oral, 3 TIMES DAILY PRN, 9 doses , Starting on Sun04/28/21 at 1744, Until Sun04/29/21 at 1527, Pain, Routine promethazine (PHENERGAN) suppository 12.5 mg(Linked Group 4) 12.5 mg, rectal, EVERY 6 HOURS PRN, Star ting on Sun04/28/21 at 1744, Until Sun04/29/21 at 1527, Nausea, Routine promethazine (PHENERGAN) tablet 12.5 mg(Linked Group 4) 12.5 mg, oral, EVERY 6 HOURS PRN, Starti ng on Sun04/28/21 at 1744, Until Sun04/29/21 at 1527, Nausea, Routine sodium chloride 0.9 % irrigation (CANCELED) 0902 (Given - Provider: Reji Foster MD)1107 (Given - Provider: Reji Foster MD) As needed, Starting on Sun04/28/21 at 090 2, Until Sun04/28/21 at 0907, Routine, Intraprocedure Linked Groups Order Group 1: Change IV to [place]ine Lock (CANCELED) Routine, ONE TIME, On Sun04/29/21 at 0820 , For 1 occurrence And sodium chloride 0.9 % (flush) flush 3 mLJump to med 3 mL, intravenous, EVERY 8 HOURS, First dose on Sun04/29/21 at 0845, Until Discontinued, Routine Group 2: acetaminophen (TYLENOL) tablet 650 mgJump to med 650 mg, oral, EVERY 4 HOURS PRN, Startin g on Sun04/28/21 at 1744, Until Sun04/29/21 at 1527, Pain, Routine Or acetaminophen (TYLENOL) suppository 650 mgJump to med 650 mg, rectal, EVERY 4 HOURS PRN, Start ing on Sun04/28/21 at 1744, Until Sun04/29/21 at 1527, Pain, Routine Group 3: ondansetron (PF) (ZOFRAN) injection 4 mgJump to med 4 mg, intravenous, EVERY 4 HOURS PRN, St arting on Sun04/28/21 at 1744, Until Sun04/29/21 at 1527, Nausea, Routine Or ondansetron (ZOFRAN-ODT) disintegrating tablet 4 mgJump to med 4 mg, oral, EVERY 4 HOURS PRN, Starting on Sun04/28/21 at 1744, Until Sun04/29/21 at 1527, Nausea, Routine Group 4: promethazine (PHENERGAN) tablet 12.5 mgJump to med 12.5 mg, oral, EVERY 6 HOURS PRN, Starti ng on Sun04/28/21 at 1744, Until Sun04/29/21 at 1527, Nausea, Routine Or promethazine (PHENERGAN) suppository 12.5 mgJump to med 12.5 mg, rectal, EVERY 6 HOURS PRN, Star ting on Sun04/28/21 at 1744, Until Sun04/29/21 at 1527, Nausea, Routine documented in this encounter Orders Medications Ordered That Might Not Have Count Last Ord ered Date First Ordered Date Been Administered acetaminophen (TYLENOL) suppository 650 mg 1 04/28 acetaminophen (TYLENOL) tablet 650 mg 1 04/28/2021 atropine 0.1 mg/mL syringe 0.5 mg 1 04/28/2021 belladonna - opium (B&O SUPPRETTES) 1 04/28/2021 16.2-60 mg suppository 1 Suppository bisacodyL (DULCOLAX) suppository 10 mg 1 dextrose 50 % solution 12.5 g 2 04/28/2021 diphenhydrAMINE (BENADRYL) injection 12.5 1 2020 mg docusate sodium (COLACE) capsule 200 mg 1 04/28/20 21 fentaNYL citrate (PF) injection 25-50 mcg 1 2020 glucagon injection 1 mg 2 04/28/2021 insulin aspart U-100 (NOVOLOG FLEXPEN) 1 injection lactated ringers (LR) infusion 1 04/28/2021 lidocaine (PF) 10 mg/mL (1 %) injection 2 1 2020 mg melatonin tablet 5 mg 1 04/28/2021 naloxone (NARCAN) injection 0.2 mg 1 04/28/2021 ondansetron (PF) (ZOFRAN) injection 4 mg 1 021 ondansetron (ZOFRAN-ODT) disintegrating 1 04/28/20 21 tablet 4 mg phenazopyridine (PYRIDIUM) tablet 200 mg 1 021 promethazine (PHENERGAN) suppository 12.5 1 2020 mg promethazine (PHENERGAN) tablet 12.5 mg 1 04/28/20 21 Nursing Count Last Ordered Date First Ordered Date INSERT PERIPHERAL IV 1 04/28/2021 Discharge Count Last Ordered Date First Ordered Date DISCHARGE PATIENT 2 04/29/2021 Case Request Count Last Ordered Date First Ordered Date CASE REQUEST OPERATING ROOM 1 04/29/2021 documented in this encounter Additional Health Concerns Infection Onset Date Last Indicated Resolved Time MRSAComment: IP note: risk factors - DM, impaired mobility, jail resident 02/25/2015 02/25/2015 Pos nares 02/25/2015 Neg nares 11/02/18 Neg nares 12/13/18 [place] 12/13/18 documented as of this encounter Care Teams Drawer In Jacquard Loom Relationship Specialty Start Date End Date Pina Taylor MD PCP - General 04/21/21 10/03/21 [id number] [place] [id number] documented as of this encounter
--- OUTSIDE RECORDS SUMMARY | 2022-03-17 00:36 | XMS_ITS | Encounter Summary ---
:1960 Author Organization [facility] Address [address] [place] [address] Care Team Providers Name Role Phone Pio Odonnell MD Primary Care Provider [phone] Reason for Visit Reason Comments New Patient Visit reassess hx of CARPENTER MOLD Vasculiti s Telemedicine Video Visit Encounter Details Date Type Department Care Team Description 04/13/2020 Telemedicine [facility] Norbert Pak Chi, MD History of cerebral infarction (Primary Dx); Rheumatology & [address] [place] [address] Right hemip legia ([facility]); Immunology - [facility] Primary central nervous system vasculiti s ([facility]) [facility], [address], [address] [place], [place] [address] [place] [address] [phone] (Wo rk) Social History Tobacco Use [...] making decisions? documented as of this encounter Patient Instructions Patient InstructionsNorbert Pak Chi, MD - 04/13/2020 15:00 EDT Continue current meds. We request that a copy of the MRI of the brain be sent to us. documented in this encounter Progress Notes Norbert Pak Chi, MD - 04/13/2020 1500 EDT Images from the original note were not included. Subjective: Patient ID: Ginger Barrera is an 59 y.o. female. Chief Complaint Patient presents with ??? New Patient Visit reassess hx of CARPENTER MOLD Vasculitis ??? Telemedicine Video Visit The concept of ???Telemedicine?? has been described [...] conferencing: The location of the patient : skilled nursing The location of the provider: Clinic Exam Room The following staff and their role did participate in today's encounter visit: Norbert Pak MD Last seen 03/2013: Assessment at that time- Vasculitis, primary medical communication specialist No strokelike symptoms or decline in neurologic status despite decrease in CellCept and prednisone over the past year. Last summer her angiogram showed reversal of the basilar artery narrowing. Attempt at repeat CT angiogram unsuccessful this week. According to Dr. Garcia's November 2012 clinic note- he would like patient tapered off immunosuppression and then followed by serial CT angiograms for recurrence of vascular disease. We will try tapering off CellCept first. Patient's son was instructed to decrease CellCept to 100 mgdaily for 1 month then stop. Continue prednisone 2.5 mg daily which is already quite a low dose Future prednisone tapers will be by 1 mg every 1-2 months as tolerated. Unclear what is causing the elevated sedimentation rate since clinically the patient has been stable. Will monitor. Patient lost to f/u since that 2012 visit. Then we were notified 04/01/20: Spoke with Dr Osorio at [facility]: hosptialised for severe UTI/renal infection. Pt last seen 2012 in Rheum for questionable CARPENTER MOLD vasculitis (doubtful per Rheum and Neuro) and was supposed to wean off Cellcept 100 mg and Prednisone 2.5 mg daily. She was lost to f/u and has maintained on those meds. Repeat CT several days ago at [facility] reportedly showed new CVAs since [address] Osorio who requested she be followed up here again for management. Pt's cellcept was held for the renal infection; advised restarting if the infection has been cleared. The maintenance cellcept and prednisone doses have been low fortunately, but unclear whether she needs to be on anything at all. Pt is at risk for urosepsis due to indwelling lozada catheter and hx of nephrolithiasis. Patient's history today was supplemented by the nurse at the skilled nursing. They state her recent hospitalization was also complicated by pancreatitis. They said the trazodone contributed (?) to GI issues. Not clear if pt has had any new strokes. [facility] She has [facility] Dr. Parks, a neurologist who practices out of [facility]. The primary provider is the site medical director of the [facility]. Joints that bother the pt currently: Neck: no Low back: no Shoulders: Chronic pain in L arm Elbows: Left aches Wrists: no Fingers: Weak on right from old stroke Hips: no Knees: no Ankles: no Feet/ toes: no Joints swelling- no AM stiffness- no Pain at night- minimal Therapies tried and failed- Therapies that helped- Still maintains on diclofenac Physical activity/ exercise- needs complete care due to R hemiplegia. Bedridden. She is currently under 2 week quarantine at the skilled nursing due to recent discharge from hospitalization at [facility]. Employment- no Patient Active Problem List Diagnosis ??? Diabetes mellitus, type 2 (HCC-CMS) ??? Bipolar affective disorder (HCC-CMS) ??? Anxiety ??? History of cerebral infarction ??? Primary central nervous system vasculitis (HCC-CMS) ??? Former smoker ??? Cholecystitis, acute ??? History of seizures ??? Right spastic hemiparesis (HCC-CMS) ??? Hypothyroidism ??? SIRS (systemic inflammatory response syndrome) (HCC-CMS) ??? Severe sepsis ??? Seizure disorder (HCC-CMS) ??? Decubitus ulcer ??? Insomnia ??? Staghorn calculus ??? Pneumonia due to infectious organism ??? Calculus of kidney Past Medical History: Diagnosis Date ??? Anxiety ??? Bipolar affective disorder (HCC-CMS) ??? Diabetes mellitus (HCC-CMS) ??? DM (diabetes mellitus screen) ??? Headache(784.0) ??? HTN (hypertension) ??? Lumbar disc disease ??? Morbid obesity (HCC-CMS) ??? Smoking ??? Static encephalopathy Past Surgical History: Procedure Laterality Date ??? CATARACT REMOVAL WITH IMPLANT Right 06/15/2016 ??? CATARACT REMOVAL WITH IMPLANT Left 06/29/2016 ??? CERVICAL SPINE SURGERY ??? FOOT SURGERY ??? HIP SURGERY Right Patient not sure of what surgery was performed ??? LUMBAR SPINE SURGERY ??? WRIST SURGERY Family History Problem Relation Age of Onset ??? Stroke Mother ??? Alcohol Abuse Sister ??? Alcohol Abuse Brother ??? Alcohol Abuse Father ??? Kidney Disease Neg Hx Social Social History Tobacco Use ??? Smoking status: Former Smoker Packs/day: 0.50 Years: 40.00 Pack years: 20.00 Types: Cigarettes Last attempt to quit: 11/29/2010 Years since quittin.3 ??? Smokeless tobacco: Never Used Substance Use Topics ??? Alcohol use: No Alcohol/week: 0.0 standard drinks Comment: History of EtOH abuse ??? Drug use: No Outpatient Medications Marked as Taking for the 04/13/20 encounter (Telemedicine) with Norbert Pak Chi, MD Medication Sig Dispense Refill ??? acetaminophen (TYLENOL) 650 mg CR tablet Take 650 mg by mouth daily. ??? aspirin chewable 81 mg tablet Take 81 mg by mouth daily. ??? buPROPion (WELLBUTRIN SR) 150 mg SR tablet Take 450 mg by mouth daily. ??? carbidopa-levodopa (SINEMET) 25-100 mg per tablet Take 1 Tab by mouth 4 times daily ??? diclofenac (VOLTAREN) 50 mg EC tablet Take 1 tablet by mouth 2 times daily as needed for Pain. 6tablet 0 ??? Lamotrigine 50 mg tablet extended release 24hr Take 50 mg by mouth daily. ??? levothyroxine (SYNTHROID) 125 mcg tablet Take 125 mcg by mouth daily. ??? magnesium chloride (MAG 64 ORAL) Take by mouth daily. ??? metFORMIN (GLUCOPHAGE) 500 mg tablet Take 500 mg by mouth 2 times daily. ??? mirtazapine (REMERON) 15 mg tablet Take 15 mg by mouth at bedtime. ??? Multivitamins with Minerals tablet Take 1 Tab by mouth daily ??? mycophenolate mofetil (CELLCEPT) 200 mg/mL suspension Take 0.5 mL by mouth daily. Need labs doneevery 3 months 3 Bottle 1 ??? predniSONE (DELTASONE) 5 mg tablet Take 0.5 Tabs by mouth daily. 30 Tab 0 ??? QUEtiapine (SEROQUEL) 100 mg tablet Take 100 mg by mouth 3 times daily. ??? traZODone (DESYREL) 50 mg tablet Take 25 mg by mouth 2 times daily. Allergies Allergen Reactions ??? Darvocet A500 [Propoxyphene N-Acetaminophen] Nausea And Vomiting ??? Methadone ??? Naproxen Does not work ??? Penicillins Itching ??? Sulfa (Sulfonamide Antibiotics) ??? Tylox [Oxycodone-Acetaminophen] itching Review of Systems Constitutional: Positive for malaise/fatigue. Negative for chills, diaphoresis, fever and weight loss. HENT: No oral ulcers No dry mouth Eyes: Negative for pain. No dry eyes Respiratory: Negative for cough and shortness of breath. Cardiovascular: Positive for chest pain. Negative for palpitations. No raynauds Gastrointestinal: Positive for abdominal pain and constipation (having multiple BM's now on Miralax). Negative for blood in stool, diarrhea, heartburn and nausea. Genitourinary: Negative for dysuria, frequency and hematuria. Had recent kidney infection; has an indwelling lozada. Musculoskeletal: Positive for joint pain and myalgias. Negative for back pain and neck pain. Skin: Negative for itching and rash. No sun sensitive rashes no psoriasis Neurological: Positive for focal weakness (paralyzed on right due to hx of stroke) and seizures (on meds). Negative for tingling and headaches. Reports another stroke within the past 3 years? Endo/Heme/Allergies: Does not bruise/bleed easily. Has DM2 Psychiatric/Behavioral: Negative for depression. The patient is nervous/anxious and has insomnia. All other systems reviewed and are negative. - See HPI Objective: Physical Exam Constitutional: No distress. Overweight middle-aged female lying in bed HENT: Nose: Nose normal. normocephalic Eyes: Conjunctivae and EOM are normal. Pulmonary/Chest: No respiratory distress. Musculoskeletal: No visible joint swelling. Neurological: She is alert. Cannot move R arm or R leg- hemiplegic Skin: No rash (none visible) noted. Psychiatric: Her behavior is normal. Her speech is delayed and slurred (dysarthric). She exhibits a depressed mood. Vitals reviewed. Outside labs 03/30/2020: CTA brain- 12/02/2018: CMP significant for- Albumin 2.8 TSH 2.75 Hemoglobin A1c 5.9 H/H 12.2/38.6, MCV 101.6 Assessment: 1. History of cerebral infarction 2. Right hemiplegia (HCC-CMS) 3. Primary central nervous system vasculitis (HCC-CMS) Plan: History of cerebral infarction 10 years ago leaving her with dense right hemiplegia. Her neurologic and physical status have not changed significantly over the years from our evaluation. Agree with getting an updated brain MRI scan within the next 2 weeks. Recent CTA of the head showed no significant changes and no new injuries. Primary CARPENTER MOLD vasculitis- Which was the diagnosis entertained nearly 10 years ago when she presented with stroke. But there was never compelling evidence for vasculitis and we had instructed her to taper off the mycophenolate and prednisone in 2012, though this did not happen. Fortunately the doses of mycophenolate at 100 mg daily and prednisone 2.5 mg daily are low. If the MRI of the brain returns showing no new lesions then we should try to slowly lower the mycophenolate and prednisone, since she is already at risk for recurrent urosepsis, infected decubiti, pneumonia. Barriers to learning identified: Yes- due to old stroke; had nurse present to help Patient verbalizes understanding and agrees with plan Yes Return for 4- 5 months- zoom to be arranged with the Randy.. Copy of this note will be sent to PCP: Stacey Bartlett (Portions of this document may have been prepared with speech recognition software or keyboard database manager techniques. Minor irregularities or keyboarding misprints may be present.) Norbert Pak MD 04/13/2020 documented in this encounter Plan of Treatment Upcoming Encounters Date Type Specialty Care Team Description 06/13/2022 Appointment Radiology 06/13/2022 Office Visit Urology Reji Foster MD [address] [facility], [facility], [address] [place], [place] [address] (Wo rk) documented as of this encounter Visit Diagnoses Diagnosis History of cerebral infarction - Primary Transient ischemic attack (TIA), and cer ebral infarction without residual deficits Right hemiplegia (HCC-CMS) (HCC) Hemiplegia, unspecified, affecting unspe cified side Primary central nervous system vasculiti s (HCC-CMS) (HCC) Arteritis, unspecified documented in this encounter Discontinued Medications Medication Sig Discontinue Reason Start Date End Date acetaminophen (TYLENOL) Take 2 tablets by 12/06/2018 04/13/2020 500 mg tablet mouth every 6 hours as needed for Pain. documented as of this encounter Historical Medications This list may reflect changes made after this encounter. Medication Sig Dispensed Refills Start Date End Date QUEtiapine (SEROQUEL) 100 mg Take 100 mg by 0 tablet mouth 3 times daily. magnesium chloride (MAG 64 Take by mouth 0 ORAL) daily. mirtazapine (REMERON) 15 mg Take 15 mg by mouth 0 tablet at bedtime. metFORMIN (GLUCOPHAGE) 500 Take 500 mg by 0 mg tablet mouth 2 times daily. acetaminophen (TYLENOL) 650 Take 650 mg by 0 mg CR tablet mouth daily. added in this encounter Additional Health Concerns Infection Onset Date Last Indicated Resolved Time MRSAComment: IP note: risk factors - DM, impaired mobility, skilled nursing resident 02/25/2015 02/25/2015 Pos nares 02/25/2015 Neg nares 11/02/18 Neg nares 12/13/18 N [place] 12/13/18 documented as of this encounter Care Teams Rn Oncology Relationship Specialty Start Date End Date Pio Odonnell MD PCP - General 10/31/18 04/20/[address] [place] [id number] documented as of this encounter
--- OUTSIDE RECORDS SUMMARY | 2022-03-17 00:36 | XMS_ITS | Encounter Summary ---
:1960 Author Organization [facility] Address [address] [place] [address] Care Team Providers Name Role Phone Pio Odonnell MD Primary Care Provider [phone] Reason for Referral Radiology Services (Routine) - Specialty Report Received Specialty Diagnoses / Procedures Referred By Contact Refer red To Contact Diagnoses Nephrolithiasis Reji Foster, Procedures CT RENAL STONE [address] [place] [address] [address] [place] [phone] Referral ID Status Reason Start Date Expiration Date Visits V isits Requested Authorized [id number] Specialty 11/02/2020 1 1 Report Received Reason for Visit Reason Comments Follow-up hx of stones Follow Up (3 - 10 Business Days) - Authorization Not Required Specialty Diagnoses / Procedures Referred By Contact Refer red To Contact Urology Diagnoses Urinary tract infection without hematuria, site unspecified Saul Mesa MD [place], Kevan Michael, [address], [place] [address] [place], [place] [address] [facility] venue [phone] [facility] [address] [place], [place] [address] Phone: Fax: Referral ID Status Reason Start Expiration Visits Visits Date Date Requested Authorized [id number] Authorization Specialty 11/02/2018 1 1 Not Required Services Required Encounter Details Date Type Department Care Team Description 11/02/2020 Telemedicine [facility] Reji Foster Nephr olithiasis Urology - Chandrakant Fletcher MD (Primary Dx) [address], Level [place] [phone] (Wo rk) Social History Tobacco Use Types [...] encounter Progress Notes Reji Foster MD - 11/02/2020 1300 EST This is a follow-up visit on Ginger. This is a 60-year-old female accompanied by her primary physician where she is cared for in regards to her history of nephrolithiasis. To review her history she is required right-sided intervention by myself back in 2019 on the right side for a large stone burden. This was done with a percutaneous approach followed by a second look ureteroscopy. I last saw her in January 2019 at which time a follow-up ultrasound had no concerns. Her stones were infectious based stones and recently she was admitted to the hospital at [facility] for abdominal pain. This was about 6 months ago actually and she was found to have severe constipation. On the imaging that was obtained there was concern for recurrent stones and she saw Dr. Alvarez from urology who recommended follow-up with myself to discuss possible intervention for the small stones. I spent time reviewing the CT scan which again was done 6 to 7 months ago. At that time there were no evidence of any obstructing stones and no stones at all on the left side. The right side had a few relatively small stones. From a symptom standpoint she has been having some right upper quadrant painas well as GI concerns most recently with diarrhea. She denies fevers chills nausea or vomiting. Perdiscussion with her primary physician she has not had hematuria or recurrent urinary tract infections. Her current symptoms do not sound related to kidney stones however I do think it is worth following up the imaging to make sure that nothing is changed. Removal of infection based stones is always an option and I agree with Dr. Alvarez that this is not something that needs to be done urgently. I am going to order a external CT scan and follow-up with Ginger over video again in the next few weeks. documented in this encounter Plan of Treatment Upcoming Encounters Date Type Specialty Care Team Description 06/13/2022 Appointment Radiology 06/13/2022 Office Visit Urology Reji Foster MD [address] [place] [address], [facility], [address] [place], [place] [phone] (Wo rk) Scheduled Orders Name Type Priority Associated Diagnoses Order S chedule CT RENAL STONE Imaging Routine Nephrolithiasis Ordered: 0 11/02/2020 documented as of this encounter Visit Diagnoses Diagnosis Nephrolithiasis - Primary Calculus of kidney documented in this encounter Additional Health Concerns Infection Onset Date Last Indicated Resolved Time MRSAComment: IP note: risk factors - DM, impaired mobility, [place] resident 02/25/2015 02/25/2015 Pos nares 02/25/2015 Neg nares 11/02/18 Neg nares 12/13/18 N [place] 12/13/18 documented as of this encounter Care Teams Manager Furniture Relationship Specialty Start Date End Date Pio Odonnell MD PCP - General 10/31/18 04/20/[address] [place] [address] documented as of this encounter
--- OUTSIDE RECORDS SUMMARY | 2022-03-17 00:36 | XMS_ITS | Encounter Summary ---
:1960 Author Organization [facility] Address [address] [place] [address] Care Team Providers Name Role Phone Pina Taylor MD Primary Care Provider Reason for Visit Reason Onset Date Comments Surgery Scheduling 05/02/2021 Encounter Details Date Type Department Care Team Description 05/02/2021 Telephone [facility] Reji Foster ry Scheduling Urology - [facility] Osiris Fletcher MD [address] [facility] [address] [phone] [facility] [address] [place] [phone] (Wo rk) Social History Tobacco [...] Notes Telephone Encounter - Qian Cast - 05/02/2021 1552 EDT Spoke with Mary Ellen at the [facility] to confirm pt's surgery on 05/19/[address] Foster. A pre-op history and physical and urine culture need to be completed by 05/12/21. A covid test is required 3 days prior to surgery. PAT is scheduled on 05/10/21 at 9:10. elephone Encounter - Qian Cast - 05/02/2021 1505 EDT A message was left for the nurse requesting a call back to discuss pt's surgery on 05/19/[address] Foster. documented in this encounter Plan of Treatment Upcoming Encounters Date Type Specialty Care Team Description 06/13/2022 Appointment Radiology 06/13/2022 Office Visit Urology Reji Foster MD [address] [place] [address], [facility], [address] [place], [place] [phone] (Wo rk) documented as of this encounter Visit Diagnoses Not on filedocumented in this encounter Additional Health Concerns Infection Onset Date Last Indicated Resolved Time MRSAComment: IP note: risk factors - DM, impaired mobility, longterm resident 02/25/2015 02/25/2015 Pos nares 02/25/2015 Neg nares 11/02/18 Neg nares 12/13/18 N [place] 12/13/18 documented as of this encounter Care Teams Business Practices Supervisor Relationship Specialty Start Date End Date Pina Taylor MD PCP - General 04/21/21 10/03/21 [address] [place] [phone] documented as of this encounter
--- OUTSIDE RECORDS SUMMARY | 2022-03-17 00:36 | XMS_ITS | Encounter Summary ---
:1960 Author Organization [facility] Address [address] [place] [address] Care Team Providers Name Role Phone iPna Taylor MD Primary Care Provider Encounter Details Date Type Department Care Team Description 05/17/2021 Hospital Encounter [facility] Main [place] Pre-Surgical Testing [address] [place] [address] Social History Tobacco Use Types Packs/Day Years [...] Sign Reading Time Taken Comments Blood Pressure - - Pulse - - Temperature - - Respiratory Rate - - Oxygen Saturation - - Inhaled Oxygen Concentration - - Weight 75.8 kg (167 lb 1.7 oz) 05/17/2021 1557 EDT Height 165.1 cm (5' 5) 05/17/2021 1557 EDT Body Mass Index 27.81 05/17/2021 1557 EDT documented in this encounter Functional Status [...] or Self Care documented in this encounter Progress Notes Klarissa Phoenix RN - 05/17/2021 1520 EDT COVID 19 Screening Perioperative at time of PAT Please document by exception (only check those that apply). Have you had any of the following symptoms recently? NO Yes Chronic ? Cough Shortness of breath [...] who has been diagnosed with Covid 19? NO (close contact, within 6 feet of any person known to have Coronavirus in the past 14 days) Vaccination Status: __X_ Pt states fully vaccinated, _X__ Verified in chart ___ Pt states unvaccinated -Do not instruct patient regarding COVID testing, let [facility] coordinate this -Communicate status on yellow form for DOS If patient develops any of these symptoms between now and their surgery date instruct them to call us back at [phone] to report symptoms Visitor Policy: - Inpatients [...] for pediatric patients. documented in this encounter OR Notes Preprocedure Instructions - Klarissa Phoenix RN - 05/17/2021 1520 EDT Ginger Barrera has been instructed as follows regarding medication administration for the day of the scheduled procedure. Date of Surgery: 05/19/2021 Instructions for Taking Medications Day of Surgery Medication Sig Last Dose Hold DOS Take DOS acetaminophen (TYLENOL) 650 mg CR tablet Take 650 mg by mouth daily. yes aspirin chewable 81 mg tablet Take 81 mg by mouth daily. yes buPROPion (WELLBUTRIN SR) 150 mg SR tablet Take 450 mg by mouth daily. yes carbidopa-levodopa (SINEMET) 25-100 mg per tablet Take 1 Tab by mouth 4 times daily yes diclofenac (VOLTAREN) 50 mg EC tablet Take 1 Tablet by mouth 2 times daily as needed for Pain. 05/17/2021 docusate sodium (COLACE) 100 mg capsule Take 1 capsule by mouth 2 times daily. Patient not taking: Reported on 04/13/2020 yes lactase (LACTAID FAST ACT) 9,000 unit tablet Take by mouth. 05/18/2021 yes Lamotrigine 50 mg tablet extended release 24hr Take 50 mg by mouth daily. yes levothyroxine (SYNTHROID) 125 mcg tablet Take 125 mcg by mouth daily. yes magnesium chloride (MAG 64 ORAL) Take by mouth daily. 05/17/2021 yes metFORMIN (GLUCOPHAGE) 500 mg tablet Take 500 mg by mouth 2 times daily. 05/18/2021 yes mirtazapine (REMERON) 15 mg tablet Take 15 mg by mouth at bedtime. yes Multivitamins with Minerals tablet Take 1 Tab by mouth daily 05/17/2021 phenazopyridine (PYRIDIUM) 200 mg tablet Take 1 Tablet by mouth 3 times daily as needed for Pain. Yes if need polyethylene glycol 3350 (MIRALAX) 17 gram packet Take 17 g by mouth daily. yes QUEtiapine (SEROQUEL) 100 mg tablet Take 100 mg by mouth 3 times daily. yes traZODone (DESYREL) 50 mg tablet Take 25 mg by mouth 2 times daily. yes History of VRE. No open wounds as of this time. Max asst. Non ambulatory with use of maida for all transfers required. covid tested at the [facility] on 05/16/21. Phone interview performed with XIOMARA Martínez RN documented in this encounter Plan of Treatment Upcoming Encounters Date Type Specialty Care Team Description 06/13/2022 Appointment Radiology 06/13/2022 Office Visit Urology Reji Foster MD [address] [facility], [facility], [address] [place], [place] [address] (Wo rk) documented as of this encounter Visit Diagnoses Not on filedocumented in this encounter Discontinued Medications Medication Sig Discontinue Reason Start Date End Date acetaminophen (TYLENOL) Take 3 Tablets by Therapy completed 021 05/17/2021 325 mg tablet mouth every 6 hours as needed for Pain. documented as of this encounter Historical Medications This list may reflect changes made after this encounter. Medication Sig Dispensed Refills Start Date End Date polyethylene glycol 3350 Take 17 g by mouth 0 (MIRALAX) 17 gram packet daily. lactase (LACTAID FAST ACT) Take by mouth. 0 9,000 unit tablet added in this encounter Additional Health Concerns Infection Onset Date Last Indicated Resolved Time MRSAComment: IP note: risk factors - DM, impaired mobility, long term resident 02/25/2015 02/25/2015 Pos nares 02/25/2015 Neg nares 11/02/18 Neg nares 12/13/18 N [place] 12/13/18 documented as of this encounter Care Teams Grain Blender Relationship Specialty Start Date End Date Pina Taylor MD PCP - General 04/21/21 10/03/21 [address] [place] [address] documented as of this encounter
--- OUTSIDE RECORDS SUMMARY | 2022-03-17 00:36 | XMS_ITS | Encounter Summary ---
:1960 Author Organization [facility] Address [address] [place] [address] Care Team Providers Name Role Phone Pina Taylor MD Primary Care Provider Encounter Details Date Type Department Care Team Description 05/13/2021 - Hospital Encounter [facility] eled (Other: 05/14/2021 [facility] Unknown) Center Main [place] Pre-Surgical Testing [address] [place] [address] Social History Tobacco Use Types Packs/Day Years [...] for Pain. documented as of this encounter Discharge Disposition Disposition Code Departure Means Destination Home or Self Care documented in this encounter Plan of Treatment Upcoming Encounters Date Type Specialty Care Team Description 06/13/2022 Appointment Radiology 06/13/2022 Office Visit Urology Reji Foster MD [address] [facility], [facility], [address] [place], [place] [address] (Wo rk) documented as of this encounter Visit Diagnoses Not on filedocumented in this encounter Additional Health Concerns Infection Onset Date Last Indicated Resolved Time MRSAComment: IP note: risk factors - DM, impaired mobility, [facility] resident 02/25/2015 02/25/2015 Pos nares 02/25/2015 Neg nares 11/02/18 Neg nares 12/13/18 N [place] 12/13/18 documented as of this encounter Care Teams Sales Closer Relationship Specialty Start Date End Date Pina Taylor MD PCP - General 04/21/21 10/03/21 [address] [place] [address] documented as of this encounter
--- OUTSIDE RECORDS SUMMARY | 2022-03-17 00:36 | XMS_ITS | Encounter Summary ---
:1960 Author Organization [facility] Address [address] [place] [address] Care Team Providers Name Role Phone Pina Taylor MD Primary Care Provider Reason for Visit Auth/Cert Specialty Diagnoses / Procedures Referred By Contact Refer red To Contact Diagnoses Nephrolithiasis Procedures MD PERCUT REMV KID STONE,UP TO 2 CM NEPHROSTOLITHOTOMY, PERCUTANEOUS, WITH REMOVAL OF CALCULUS LESS THAN 2 CM IN DIAMETER Referral ID Status Reason Start Date Expiration Date Visits Requ ested Visits Authorized [id number] 04/06/2021 09/23/2021 1 1 Encounter Details Date Type Department Care Team Description 04/28/2021 Anesthesia Event [facility] OR Lynn Bright MD [address] [facility], Level [address] [place] [address] [place] [address] Anival Michael Alvarez MD [address] [place] [address] [place] [address] Anesthesia Record Procedure Summary Procedure Name Responsible Anesthesia Start Anesthesia Stop Time Anesthesiologist Time JOSEROSTOLITHOTOMY, Lynn Bright, 04/28/21 0837 1143 PERCUTANEOUS, WITH MD REMOVAL OF CALCULUS LESS THAN 2 CM IN DIAMETER (Right Abdomen) Events Date Time Event Comment 04/28/2021 0837 An Start The patient was re-evaluated immediately before moderate or deep sedation use, before anesthesia induction, or be fore the anesthesia procedure. 0837 An Start Data 0842 An Induction The patient was reevaluated immediately before moderate or deep sedation use and before anesthesia induction. 0850 An Intubation 0905 Anesthesia Ready 1134 An Extubation 1136 an stop data 1143 Handoff to RN I completed my h [...] for questions and ac knowledgement of understanding. 1143 An Stop Name Total HYDROmorphone vial 2 mg/mL 0.2 mg ketAMINE 5 mL prefilled syringe 10 mg lidocaine 2% (PF) injection glass vial 100 mg phenylephrine pre-filled syringe 100 mcg propOFol (DIPRIVAN) injection 150 mg rocuronium 10 mg/mL vial 70 mg sugammadex 100 mg/mL 2 mL vial 150 mg dexmedetomidine injection - vial 4 mcg ceFAZolin syringe 2 g prefilled syringe 2,000 mg acetaminophen 10 mg/ml 100 mL infusion 1,000 mg ketOROLAC injection 15 mg lactated ringers (LR) infusion 500 mL Agents Name Insp Isoflurane Exp Isoflurane Insp Desflurane Exp Desflurane Insp Sevoflurane Exp Sevoflurane O2 N2O Air Cumulated Pillo Consumption Cumulated Iso Consumption Blood No blood administrations on file. Lines, Drains, and Airways Type Details Placement Removal Wound 04/28/21; Incision; Right; 04/28/21 0000 by 04/25 01/12 1611 by Flank; Percutaneous Hola Damon Conger, Karen, RN Nephrolithotomy; 05/17/21; RN 1611; Healed Urethral Catheter 04/28/21; Catheter per 04/28/21 0000 by 1611 by Urology, Intraoperative Hola Damon Cong er, Karen, RN monitoring, Selected surgical technologist procedures/Epidural; Latex; 18 fr; 10 ml; Yes; 05/17/21; 1611 Peripheral IV 04/28/21; 0745; 1.25; Left, 04/28/21 0745 by 1531 by Posterior, Proximal; Moon Abarca RN Conger, Ka ren, RN Forearm; Documenting on behalf of someone else (enter name) (Cynthia Tellez RN); 1; None; 3.15% Chlorhexidine with IPA; 05/17/21; 1531; Removed unobserved documented in this encounter Social History Tobacco [...] encounter OR Notes Anesthesia Postprocedure Evaluation - Lynn Bright MD - 04/28/2021 1143 EDT Patient: Ginger Barrera Vital signs were reviewed with the recovery nurse. Complete vitals history is available in the Epic flowsheets. Vitals Value Taken Time BP 114/74 04/28/21 1140 Temp 36.7 04/28/21 1143 Resp 8 04/28/21 1143 Pulse From Oximetry 78 BPM 04/28/21 1143 SpO2 98 % 04/28/21 1143 Vitals shown include unvalidated device data. Last Pain Score - Numeric Pain Level (Scale 1-10): 0 (my feet are numb) Type of Anesthesia - general Anesthesia Post Evaluation Level of consciousness: awake Temperature status: normothermia Respiratory status: airway patent and nasal cannula Cardiovascular status: acceptable Hydration status: adequate Nausea/Vomiting: none Pain management: adequate Post-Op Assessment: patient tolerated procedure well with no complications Patient participation: able to participate Disposition: inpatient Anesthesia Complications: No apparent anesthesia complications Anesthesia Procedure Notes - Michael Alvarez MD - 04/28/2021 0918 EDT Associated Order(s): Airway Airway Date/Time: 04/28/2021 8:50 Urgency: elective General Information and Staff Patient location during procedure: OR Resident/WET COTTON FEEDER: Michael Alvarez MD Performed: resident/WET COTTON FEEDER/AA Indications and Patient Condition Indications for airway management: anesthesia Sedation level: GA Preoxygenated: yes Patient position: sniffing Ventilation assessment: 1 - Easy Final Airway Details Final airway type: endotracheal airway Successful airway: ETT Cuffed: yes Successful intubation technique: video laryngoscopy Goddard Facilitating devices/methods: intubating stylet Blade: Audrey Blade size: #3 ETT size (mm): 7.0 Cormack-Lehane Classification: grade IIa - partial view of glottis Placement verified by: chest auscultation, capnometry and palpation of cuff Measured from: lips ETT to lips (cm): 21 Number of attempts at approach: 1 nesthesia Preprocedure Evaluation - Michael Alvarez MD - 04/27/2021 1651 EDT Anesthesia Preprocedure Evaluation Patient Medical History, including Anesthesia History reviewed. Chart and Nursing Notes reviewed, including NPO status and Medication History. Additional ROS/History Findings: Ginger Barrera is a 60 y.o. female with PMHx significant for DMII, seizure disorder, HTN, bipolardisorder w/ tardive dyskinesia, hemiparesis and aphasia s/p CVA (2011, 2/2 cerebral vasculitis), parkinsonism, chronic chest pain, and hypothryroidism . Plan for NEPHROSTOLITHOTOMY, PERCUTANEOUS, WITH REMOVAL OF CALCULUS LESS THAN 2 CM IN DIAMETER. Seizures are a distant problem, with none in over a year. Patient reports stable chronic abdominal pain this morning. Labs: Covid-19: Lab Results Component Value Date COVID-19 rt-PCR Result Negative 04/02/2020 Immunized CBC: Lab Results Component Value Date WBC 4.36 12/13/2018 Hemoglobin 11.9 12/13/2018 HCT 36.7 12/13/2018 PLT 243 12/13/2018 BMP: Lab Results Component Value Date Sodium 138 12/06/2018 Potassium 4.2 12/06/2018 Chloride 103 12/06/2018 CO2 28 12/06/2018 BUN 8 (L) 12/06/2018 Creatinine 0.52 12/06/2018 HBA1C: Lab Results Component Value Date Hemoglobin A1C 5.7 11/01/2018 Coags: Lab Results Component Value Date Pro Time 13.8 (H) 02/25/2015 PTT 30 02/12/2015 I.N.R. 1.3 (H) 02/25/2015 Echo/EK EKG: sinus tach, otherwise unremarkable 2010 LAUREN: SUMMARY - Overall left ventricular systolic function was normal. Left ventricular ejection fraction was estimated in the range of 60 % to 65 %. There were no left ventricular regional wall motion abnormalities. - There was no atheroma of the aortic arch. - The left atrial appendage function was normal (normal emptying velocity). There was no left atrial appendage thrombus identified. There was no left atrial thrombus identified. There was no evidence for a patent foramen ovale by color flow Doppler. There was no evidence for a patent foramen ovale by agitated saline contrast injection. Prev anes: 11/2018: GA, no complications, LMA Auragain size 3 with small amount of air added to cuff 11/2018: GA, grade I view with Mac 3 blade, no complications No current facility-administered medications for this encounter. Current Outpatient Medications Medication ??? acetaminophen (TYLENOL) 650 mg CR tablet ??? aspirin chewable 81 mg tablet ??? buPROPion (WELLBUTRIN SR) 150 mg SR tablet ??? carbidopa-levodopa (SINEMET) 25-100 mg per tablet ??? docusate sodium (COLACE) 100 mg capsule ??? Lamotrigine 50 mg tablet extended release 24hr ??? levothyroxine (SYNTHROID) 125 mcg tablet ??? magnesium chloride (MAG 64 ORAL) ??? metFORMIN (GLUCOPHAGE) 500 mg tablet ??? mirtazapine (REMERON) 15 mg tablet ??? Multivitamins with Minerals tablet ??? QUEtiapine (SEROQUEL) 100 mg tablet ??? traZODone (DESYREL) 50 mg tablet Allergies Allergen Reactions ??? Darvocet A500 [Propoxyphene N-Acetaminophen] Nausea And Vomiting ??? Methadone ??? Naproxen Does not work ??? Penicillins Itching ??? Sulfa (Sulfonamide Antibiotics) ??? Tylox [Oxycodone-Acetaminophen] itching Review of Systems Constitutional: Negative. HENT: Negative. Eyes: Negative. Respiratory: Negative. Cardiovascular: Negative. Gastrointestinal: Positive for abdominal pain. Genitourinary: Negative. Musculoskeletal: Negative. Skin: Negative. Neurological: Negative. Endo/Heme/Allergies: Negative. Psychiatric/Behavioral: Negative. All other systems reviewed and are negative. Past Medical History: Diagnosis Date ??? Anxiety ??? Bipolar affective disorder (HCC-CMS) ??? Diabetes mellitus (HCC-CMS) ??? DM (diabetes mellitus screen) ??? Headache(784.0) ??? History of general anesthesia ??? History of kidney stones percutaneous nephrolithotomy ??? HTN (hypertension) ??? Hypothyroidism ??? Lumbar disc disease ??? Morbid obesity (HCC-CMS) ??? Parkinsonism (HCC-CMS) per H & P dated 04-13-21 drug induced ??? Seizures (HCC-CMS) ??? Smoking ??? Static encephalopathy ??? Stroke (HCC-CMS) with right hemiparesis- maida lift, WC dependant lives in SNF ??? Tardive dyskinesia per H & P dated 04-12-21 Relevant Problems PULMONARY (+) Pneumonia due to infectious organism Neuro/Psych (+) History of cerebral infarction (+) History of seizures (+) Seizure disorder (HCC-CMS) CARDIOVASCULAR (+) Primary central nervous system vasculitis (HCC-CMS) /Renal (+) Calculus of kidney (+) Staghorn calculus ENDO/GI (+) Diabetes mellitus, type 2 (HCC-CMS) (+) Hypothyroidism Physical Exam Airway Mallampati: II TM distance: >3 FB Neck ROM: limited Comments: Limited extension, limited OA joint mobility Cardiovascular - normal exam Rhythm: regular Rate: normal (+) murmur Comments: 2/6 systolic murmur at RUSB Dental Comments: Edentulous, no dentures Pulmonary - normal exam Breath sounds clear to auscultation Abdominal (+) obese Abdomen: soft Comments: nontender Anesthesia Plan ASA 2 Anesthesia Type - general Anesthesia plan and risks discussed. Informed consent obtained from patient. Specific risks discussed were bleeding, dental injury, vomiting, nausea, myocardial infarction and stroke. The preoperative history and physical which was [...] not instruct patient regarding COVID testing, let [facility] coordinate this -Communicate status on yellow form for DOS If patient develops any of these symptoms between now and their surgery date instruct them to call us back at [phone] to report symptoms Visitor Policy: - Inpatients [...] 06/13/2022 Office Visit Urology Reji Foster MD [address] [place] [address] [address] [place] [phone] (Wo rk) documented as of this encounter Procedures Procedure Name Priority Date/Time Associated Comments Diagnosis ANESTHESIA Routine 04/28/2021 8:50 EDT Results for this INTUBATION procedure are i n the results section. documented in this encounter Results Airway (04/28/2021 8:50 EDT) Narrative Michael Alvarez MD - 04/28/2021 8:50 EDT Michael Alvarez MD ? 04/28/2021 ??9:23 Airway Date/Time: 04/28/2021 8:50 Urgency: elective General Information and Staff Patient location during procedure: OR Resident/WET COTTON FEEDER: Michael Alvarez MD Performed: resident/WET COTTON FEEDER/AA Indications and Patient Condition Indications for airway management: anest hesia Sedation level: GA Preoxygenated: yes Patient position: sniffing Ventilation assessment: 1 - Easy Final Airway Details Final airway type: endotracheal airway Successful airway: ETT Cuffed: yes Successful intubation technique: video l aryngoscopy Goddard Facilitating devices/methods: intubating stylet Blade: Audrey Blade size: #3 ETT size (mm): 7.0 Cormack-Lehane Classification: grade IIa - partial view of glottis Placement verified by: chest auscultatio n, capnometry and palpation of cuff Measured from: lips ETT to lips (cm): 21 Number of attempts at approach: 1 documented in this encounter Visit Diagnoses Not on filedocumented in this encounter Administered Medications Inactive Administered Medications - up to 3 most recent administrations Medication Order MAR Action Action Date Dose Rate Site acetaminophen (OFIRMEV) IV Given 04/28/2021 10:22 EDT 1,000 mg solution intravenous, PRN, Starting on Maria Eugenia 04/28/21 at 1022, Until Maria Eugenia 04/28/21 at 1143, Routine, Anesthesia Intraprocedure ceFAZolin (ANCEF) syringe Given 04/28/2021 9:14 EDT 2,000 mg intravenous, Administer over 10 Minutes, PRN, Starting on Maria Eugenia 04/28/21 at 0914, Until Maria Eugenia 04/28/21 at 1143, Routine, Anesthesia Intraprocedure dexmedeTOMIDine (PRECEDEX) injection Given 04/28/2021 8:41 EDT 4 mcg intravenous, PRN, Starting on Maria Eugenia 04/28/21 at 0841, Until Maria Eugenia 04/28/21 at 1143, Routine, Anesthesia Intraprocedure HYDROmorphone (DILAUDUD) 2 mg/mL injecti on Given 04/28/2021 10:42 EDT 0.2 mg intravenous, PRN, Starting on Maria Eugenia 04/28/21 at 1042, Until Maria Eugenia 04/28/21 at 1143, Routine, Anesthesia Intraprocedure ketAMINE in NaCl, iso-osmotic (KETALAR) 50 mg/5 Given 2020 8:42 EDT 10 mg mL (10 mg/mL) IV injection intravenous, PRN, Starting on Maria Eugenia 04/28/21 at 0844, Until Maria Eugenia 04/28/21 at 1143, Routine, Anesthesia Intraprocedure ketOROLAC (TORADOL) injection Given 04/28/2021 11:15 EDT 15 mg intravenous, PRN, Starting on Maria Eugenia 04/28/21 at 1115, Until Maria Eugenia 04/28/21 at 1143, Routine, Anesthesia Intraprocedure lactated ringers (LR) infusion Restarted 04/28/2021 8:41 EDT at 30 mL/hr, 30 mL/hr, intravenous, CONTINUOUS, Starting on Maria Eugenia 04/28/21 at 0800, Until Maria Eugenia 04/28/21 at 1744, Routine, Preprocedure Continued by Anesthesia 04/28/2021 8:37 EDT 30 mL/hr New Bag 04/28/2021 7:45 EDT 30 mL/hr 30 mL/hr lidocaine (PF) 20 mg/mL (2 %) injection Given 04/28/2021 8:44 EDT 100 mg intravenous, PRN, Starting on Maria Eugenia 8 at 0844, Until Maria Eugenia 04/28/21 at 1143, Routine, Anesthesia Intraprocedure phenylephrine HCl in 0.9% NaCl injection Given 04/28/2021 9:38 EDT 100 mcg intravenous, PRN, Starting on Maria Eugenia 04/28/21 at 0938, Until Maria Eugenia 04/28/21 at 1143, Routine, Anesthesia Intraprocedure propOFol (DIPRIVAN) injection Given 04/28/2021 8:50 EDT 50 mg intravenous, PRN, Starting on Maria Eugenia 04/28/21 at 0846, Until Maria Eugenia 04/28/21 at 1143, Routine, Anesthesia Intraprocedure Given 04/28/2021 8:46 EDT 100 mg rocuronium (ZEMURON) injection Given 04/28/2021 10:32 EDT 10 mg intravenous, PRN, Starting on Maria Eugenia 04/28/21 at 0846, Until Maria Eugenia 04/28/21 at 1143, Routine, Anesthesia Intraprocedure Given 04/28/2021 9:32 EDT 20 mg Given 04/28/2021 8:46 EDT 40 mg sugammadex (BRIDION) injection Given 04/28/2021 11:19 EDT 150 mg intravenous, PRN, Starting on Maria Eugenia 04/28/21 at 1119, Until Maria Eugenia 04/28/21 at 1143, Routine, Anesthesia Intraprocedure documented in this encounter Orders Medications Ordered That Might Not Have Count Last Ord ered Date First Ordered Date Been Administered fentaNYL citrate (PF) injection 1 04/28/2021 documented in this encounter Additional Health Concerns Infection Onset Date Last Indicated Resolved Time MRSAComment: IP note: risk factors - DM, impaired mobility, senior care resident 02/25/2015 02/25/2015 Pos nares 02/25/2015 Neg nares 11/02/18 Neg nares 12/13/18 N [place] 12/13/18 documented as of this encounter Care Teams Support Worker Relationship Specialty Start Date End Date Pina Taylor MD PCP - General 04/21/21 10/03/21 [address] [place] [id number] documented as of this encounter
--- OUTSIDE RECORDS SUMMARY | 2022-03-17 00:36 | XMS_ITS | Encounter Summary ---
:1960 Author Organization [facility] Address [address] [place] [address] Care Team Providers Name Role Phone Pina Taylor MD Primary Care Provider Encounter Details Date Type Department Care Team Description 05/10/2021 - Hospital Encounter [facility] eled (Other: 2021 [facility] Unknown) Center Main [place] Pre-Surgical Testing [address] [place] [address] Social History Tobacco Use Types Packs/Day Years [...] Concentration - - Weight 75.8 kg (167 lb) 05/10/2021 0956 EDT Height 165.1 cm (5' 5) 05/10/2021 0956 EDT Body Mass Index 27.79 05/10/2021 0956 EDT documented in this encounter Functional Status [...] Office Visit Urology Reji Foster MD 111 [facility], [facility], [facility] [address] [place], [place] [address] (Wo rk) documented as of this encounter Visit Diagnoses Not on filedocumented in this encounter Additional Health Concerns Infection Onset Date Last Indicated Resolved Time MRSAComment: IP note: risk factors - DM, impaired mobility, long term resident 02/25/2015 02/25/2015 Pos nares 02/25/2015 Neg nares 11/02/18 Neg nares 12/13/18 [place] 12/13/18 documented as of this encounter Care Teams Project Development Leader Relationship Specialty Start Date End Date Pina Taylor MD PCP - General 04/21/21 10/03/21 [address] [place] [phone] documented as of this encounter
--- OUTSIDE RECORDS SUMMARY | 2022-03-17 00:36 | XMS_ITS | Encounter Summary ---
:1960 Author Organization [facility] Address [address] [place] [address] Care Team Providers Name Role Phone Pio Odonnell MD Primary Care Provider [phone] Pina Taylor MD Primary Care Provider Maricel Deshpande APRN Primary Care Provider [phone] Encounter Details Date Type Department Care Team Description 04/02/2020 Lab Requisition [place] Outr Resulting Lab, Pathology & Laboratory Provider [facility] [address], [place] [address] Social History Tobacco Use Types Packs/Day Years [...] Office Visit Urology Reji Foster MD [address] [facility], [facility], Level [address] [place], [place] [address] (Wo rk) documented as of this encounter Procedures Procedure Name Priority Date/Time Associated Diagnosis Comme nts COVID-19 TEST [facility] Today 04/02/2020 16:00 LAB PCR EDT COVID-19 TESTING Routine 04/02/2020 16:00 Results for this EDT procedure are i n the results section. documented in this encounter Results COVID-19 TEST [facility] LAB PCR (04/02/2020 16:00 EDT) Specimen Swab - Entire nasopharynx (body structur e) Performing Organization Address City/State/ZIP Code Phon e Number [facility] [address] [place] [address] SERVICES COVID-19 TESTING (04/02/2020 16:00 EDT) COVID-19 rt-PCR Negative Negative [facility] MEDICAL Result Comment: CENTER LABORATORY This test has not been FDA c leared or approved. This test has been authorized by FDA under an EUA for use by authorized laboratories. This test has been authorized only for detection of nucleic acid fro SERVICES m 2019-nCoV, not for any oth er viruses or pathogens. This test is only authorized for the duration of the declaration that circumstances exist justifying the authorization of emergency use of in vitro d iagnostic tests for detectio n and/or diagnosis of 2019-nCoV under section 564(b)(1) of Act, 21 U.S.C ?? 360bbb-3(b) (1), unless the authorization is terminated or revoked sooner. Negative results do not prec lude 2019-nCoV infection and should not be used as the sole basis for treatment or other patient management decisions. Negative results must be combined with clinical observa tions, patient history, and epidemiological informatio n. Performed on the [employer] [place] Fusion instrument Performing Lab [place] [facility] Lab [facility] SERVICES Specimen Swab Performing Organization Address City/State/ZIP Code Phon e Number [facility] [address] [place] [address] SERVICES documented in this encounter Visit Diagnoses Not on filedocumented in this encounter Additional Health Concerns Infection Onset Date Last Indicated Resolved Time MRSAComment: IP note: risk factors - DM, impaired mobility, halfway resident 02/25/2015 02/25/2015 Pos nares 02/25/2015 Neg nares 11/02/18 Neg nares 12/13/18 N [place] 12/13/18 R/O COVID-19 04/02/2020 04/02/2020 04/07/2020 22:18 EDT VREComment: IP note: 05/19/2021 05/19/2021 11/19/2021 22:15 EST Pos urine 05/12/21 Pos kidney fluid 05/19/21 Tamara Castro RN 05/24/21 documented as of this encounter Care Teams Art Librarian Relationship Specialty Start Date End Date Pio Odonnell MD PCP - General 10/31/18 04/20/[address] [place] [address] Pina Taylor MD PCP - General 04/21/21 10/03/21 [address] [place] [address] Maricel Deshpande APRN PCP - General Geriatric Medicine 10/04/[address] [place] [address] documented as of this encounter
--- OUTSIDE RECORDS SUMMARY | 2022-03-17 00:36 | XMS_ITS | Encounter Summary ---
:1960 Author Organization [facility] Address [address] [place] [address] Care Team Providers Name Role Phone Pio Odonnell MD Primary Care Provider [phone] Reason for Visit Reason Comments Joint Pain Medication Management Telemedicine Video Visit Encounter Details Date Type Department Care Team Description 08/24/2020 Telemedicine [facility] Norbert Pak Chi, MD History of cerebral infarction (Primary Dx); Rheumatology & [address] [place] [address] Right hemip legia ([facility]); Immunology - [facility] Chronic pain in left shoulder; [facility], [facility] Chronic foot pain, right; [address] [facility], Level 5 Chronic hepatitis C without hepatic coma ([facility]) [place] [address] [place], [place] [phone] (Wo rk) Social History Tobacco Use Types [...] Instructions Patient InstructionsNorbert Pak Chi, MD - 08/24/2020 13:20 EST Agree with tapering off the Cellcept and the prednisone. Consider trying topical Diclofenac gel alternating with Biofreeze for your painful joints. Consider a future consultation with Infectious Disease regarding your chronic Hepatitis C. documented in this encounter Progress Notes Norbert Pak Chi, MD - 08/24/2020 1320 EST Images from the original note were not included. Subjective: Patient ID: Ginger Barrera is an 60 y.o. female. Chief Complaint Patient presents with ??? Joint Pain ??? Medication Management ??? 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 Her neurologic and physical status have not changed significantly over the years from our evaluation. Agree with getting an updated brain MRI scan within the next 2 weeks. Recent CTA of the head showed no significant changes and no new injuries. 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 Since last visit: Hep C+ per labs in March-which she has had since she was a teenager. 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 The medical records coordinator with her during today's interview reports CellCept wasstopped in June. Prednisone has been slowly tapering and she is currently at prednisone 1 mg every other day and will be finished in 1 week. She underwent an MRI of the head 1 week ago at [facility]. She has chronic pain at the left shoulder and the right foot (which is paralyzed from her previous stroke). The left shoulder pain does not correlate with use. She is using Biofreeze topically as needed which helps. Has chronic urinary incontinence for which she may need another bladder procedure. Denies any new GI, skin, cardiopulmonary, or new neurologic issues. Denies any other joint pains or swelling. AM stiffness: No Physical activity: needs complete care due to R hemiplegia. Bedridden. She is currently under quarantine at the jail due to recent excursion for testing to [facility]. Patient Active Problem List Diagnosis ??? Diabetes [...] ??? LUMBAR SPINE SURGERY ??? WRIST SURGERY Outpatient Medications Marked as Taking for the 08/24/20 encounter (Telemedicine) with Norbert Pak Chi, MD [...] Tab by mouth 4 times daily ??? Lamotrigine 50 mg tablet extended release [...] Take 1 Tab by mouth daily ??? predniSONE (DELTASONE) 5 mg tablet Take [...] and are negative. - See HPI Objective: There were no vitals taken for this visit. - video encounter Physical Exam Vitals signs reviewed. Constitutional: General: She is not in acute distress. Comments: Overweight middle-aged female lying in bed HENT: Nose: Nose normal. Comments: normocephalicEyes: Extraocular Movements: EOM normal. Conjunctiva/sclera: Conjunctivae normal. Pulmonary: Effort: No respiratory distress. Musculoskeletal: Comments: No visible joint swelling. Right hand, elbow contracture with right upper and lower extremity hemiplegia. Left shoulder active ROM intact. Claw toes on the left foot. Skin: Findings: No rash (none visible). Neurological: Mental Status: She is alert. Comments: Cannot move R arm or R leg- hemiplegic Lip smacking. Psychiatric: Mood and Affect: Mood is depressed. Speech: Speech is delayed and slurred (dysarthric). Behavior: Behavior normal. 03/30/2020 04:45 03/31/2020 06:13 HCV RNA DETECT QUANT [id number] (A) Hep Bs AB,Quant <3.1 Hep C Ab w Rfx PCR Reactive (A) Hepatitis B Core Antibody Negative Hepatitis B Surface Antibody Negative Hepatitis B Surface Antigen Negative HIV 1 and 2 Antibody/p24 Antigen, 4th Generation Negative Outside labs 03/30/2020: CTA brain- 12/02/2018: CMP significant for- Albumin 2.8 TSH 2.75 Hemoglobin A1c 5.9 H/H 12.2/38.6, MCV 101.6 Assessment: 1. History of cerebral infarction 2. Right hemiplegia (HCC-CMS) 3. Chronic pain in left shoulder 4. Chronic foot pain, right 5. Chronic hepatitis C without hepatic coma (HCC-CMS) Plan: History of cerebral infarction- In 2009 with current dense right hemiplegia. She underwent repeat MRI of the brain 1 week ago- results of which are pending. Question of vasculitis was raised 10 years ago with no convincing objective evidence to support thisdiagnosis. Fortunately she has tapered off CellCept and will soon taper off prednisone completely which will help her diabetes and decrease her immunosuppression. Chronic left shoulder and right foot pain- May be more symptomatic tapering off prednisone. She is currently using Biofreeze topically. She can also try topical diclofenac gel alternating with Biofreeze. Chronic hepatitis C- With active viremia. She has not been evaluated by liver or ID clinic. She was interested in seeing ID about the hep C after the pandemic. Barriers to learning identified: Yes- due to old stroke; had nurse present to help Patient verbalizes understanding and agrees with plan Yes Return if symptoms worsen or fail to improve. Copy of this note will be sent to PCP: Stacey Bartlett (Portions of this document may have been prepared with speech recognition software or keyboard data communications engineer techniques. Minor irregularities or keyboarding misprints may be present.) Norbert Pak MD 08/24/2020 documented in this encounter Plan of Treatment Upcoming Encounters Date Type Specialty Care Team Description 06/13/2022 Appointment Radiology 06/13/2022 Office Visit Urology Reji Foster MD [address] [facility], [facility], [address] [place], [place] [address] (Wo rk) documented as of this encounter Visit Diagnoses Diagnosis History of cerebral infarction - Primary Transient ischemic attack (TIA), and cer ebral infarction without residual deficits Right hemiplegia (HCC-CMS) (HCC) Hemiplegia, unspecified, affecting unspe cified side Chronic pain in left shoulder Pain in joint, shoulder region Chronic foot pain, right Chronic hepatitis C without hepatic coma (HCC-CMS) (HCC) Chronic hepatitis C without mention of h epatic coma documented in this encounter Additional Health Concerns Infection Onset Date Last Indicated Resolved Time MRSAComment: IP note: risk factors - DM, impaired mobility, jail resident 02/25/2015 02/25/2015 Pos nares 02/25/2015 Neg nares 11/02/18 Neg nares 12/13/18 N [place] 12/13/18 documented as of this encounter Care Teams Ordained Minister Relationship Specialty Start Date End Date Pio Odonnell MD PCP - General 10/31/18 04/20/[address] [place] [address] documented as of this encounter
--- OUTSIDE RECORDS SUMMARY | 2022-03-17 00:36 | XMS_ITS | Encounter Summary ---
:1960 Author Organization [facility] Address [address] [place] [address] Care Team Providers Name Role Phone Pio Odonnell MD Primary Care Provider [phone] Pina Taylor MD Primary Care Provider Maricel Deshpande APRN Primary Care Provider [phone] Encounter Details Date Type Department Care Team Description 06/02/2020 Lab Requisition [facility] Outr Resulting Lab, Pathology & Laboratory Provider [facility] [address] [place] [id number] Social History Tobacco Use Types Packs/Day Years [...] Office Visit Urology Reji Foster MD [address] [facility], [facility], [address] [place], [place] [address] (Wo rk) documented as of this encounter Procedures Procedure Name Priority Date/Time Associated Diagnosis Comme nts PTH INTACT Routine 06/02/2020 12:45 EDT Results for this procedure are i n the results section . documented in this encounter Results (ABNORMAL) PTH INTACT (06/02/2020 12:45 EDT) Pathologist Sig nature Intact PTH 9 (L) 19 - 88 pg/mL [facility] SERVICES Specimen Blood - Venous blood (substance) Performing Organization Address City/State/ZIP Code Phon e Number [facility] [address] [place] [address] SERVICES documented in this encounter Visit Diagnoses Not on filedocumented in this encounter Additional Health Concerns Infection Onset Date Last Indicated Resolved Time MRSAComment: IP note: risk factors - DM, impaired mobility, fdc resident 02/25/2015 02/25/2015 Pos nares 02/25/2015 Neg nares 11/02/18 Neg nares 12/13/18 N [place] 12/13/18 VREComment: IP note: 05/19/2021 05/19/2021 11/19/2021 22:15 EST Pos urine 05/12/21 Pos kidney fluid 05/19/21 Tamara Castro RN 05/24/21 documented as of this encounter Care Teams Captain Fishing Vessel Relationship Specialty Start Date End Date Pio Odonnell MD PCP - General 10/31/18 04/20/[address] [place] [address] Pina Taylor MD PCP - General 04/21/21 10/03/21 [address] [place] [phone] Maricel Deshpande APRN PCP - General Geriatric Medicine 10/04/[address] [place] [address] documented as of this encounter
--- OUTSIDE RECORDS SUMMARY | 2022-03-17 00:36 | XMS_ITS | Encounter Summary ---
:1960 Author Organization [facility] Address [address] [place] [address] Care Team Providers Name Role Phone Pio Odonnell MD Primary Care Provider [phone] Encounter Details Date Type Department Care Team Description 04/20/2021 Hospital Encounter [facility] Pre-Surgical Testing [address] [place] [address] Social History Tobacco Use Types Packs/Day Years [...] or Self Care documented in this encounter OR Notes Preprocedure Instructions - Scott Lou RN - 04/20/2021 1110 EDT Ginger Barrera has been instructed as follows regarding medication administration for the day of the scheduled procedure. Date of Surgery: 04/28/2021 Instructions for Taking Medications Day of Surgery [...] Tab by mouth 4 times daily yes docusate sodium (COLACE) 100 mg capsule Take 1 capsule by mouth 2 times daily. Patient not taking: Reported on 04/13/2020 yes Lamotrigine 50 mg tablet extended release 24hr Take 50 mg by mouth daily. yes levothyroxine (SYNTHROID) 125 mcg tablet Take 125 mcg by mouth daily. yes magnesium chloride (MAG 64 ORAL) Take by mouth daily. Hold 7 days prior to sx metFORMIN (GLUCOPHAGE) 500 mg tablet Take 500 mg by mouth 2 times daily. yes mirtazapine (REMERON) 15 mg tablet Take 15 mg by mouth at bedtime. May take at hs Multivitamins with Minerals tablet Take 1 Tab by mouth daily Hold 7 days prior to sx QUEtiapine (SEROQUEL) 100 mg tablet Take 100 mg by mouth 3 times daily. yes traZODone (DESYREL) 50 mg tablet Take 25 mg by mouth 2 times daily. yes Preprocedure Instructions - Scott Lou RN - 04/20/2021 1110 EDT Ginger Barrera has been instructed as follows regarding medication administration for the day of the scheduled procedure. Date of Surgery: 04/28/2021 Instructions for Taking Medications Day of Surgery [...] Tab by mouth 4 times daily yes docusate sodium (COLACE) 100 mg capsule Take 1 capsule by mouth 2 times daily. Patient not taking: Reported on 04/13/2020 yes Lamotrigine 50 mg tablet extended release 24hr Take 50 mg by mouth daily. yes levothyroxine (SYNTHROID) 125 mcg tablet Take 125 mcg by mouth daily. yes magnesium chloride (MAG 64 ORAL) Take by mouth daily. Hold 7 days prior to sx metFORMIN (GLUCOPHAGE) 500 mg tablet Take 500 mg by mouth 2 times daily. yes mirtazapine (REMERON) 15 mg tablet Take 15 mg by mouth at bedtime. May take at hs Multivitamins with Minerals tablet Take 1 Tab by mouth daily Hold 7 days prior to sx QUEtiapine (SEROQUEL) 100 mg tablet Take 100 mg by mouth 3 times daily. yes traZODone (DESYREL) 50 mg tablet Take 25 mg by mouth 2 times daily. yes documented in this encounter Miscellaneous Notes PAT Note - Scott Lou RN - 04/20/2021 1110 EDT COVID 19 Screening Perioperative at time [...] not instruct patient regarding COVID testing, let [facility] coordinate this -Communicate status on yellow form for DOS If patient develops any of these symptoms between now and their surgery date instruct them to call us back at [phone] to report symptoms Visitor Policy: - Inpatients [...] Visit Urology Cristian, Reji Fletcher MD [address] [facility], [facility] [address] [place], [place] [address] (Wo rk) documented as of this encounter Visit Diagnoses Not on filedocumented in this encounter Discontinued Medications Medication Sig Discontinue Reason Start Date End Date diclofenac (VOLTAREN) 50 Take 1 tablet by Therapy completed 019 04/20/2021 mg EC tablet mouth 2 times daily as needed for Pain. mycophenolate mofetil Take 0.5 mL by Therapy completed 06/12/2013 04/20/2021 (CELLCEPT) 200 mg/mL mouth daily. Need suspensionIndications: labs done every 3 Vasculitis, primary PLASTER HELPER months ([facility]) ([facility]) phenazopyridine (PYRIDIUM) Take 2 tablets by Therapy completed 11/2304/20/2021 100 mg tablet mouth 3 times daily as needed for Pain. predniSONE (DELTASONE) 5 Take 0.5 Tabs by Therapy completed 019 04/20/2021 mg tablet mouth daily. valproic acid, as sodium Take 500 mg by Therapy completed 04/20/2021 salt, (DEPAKENE) 250 mg/5 mouth 2 times mL (5 mL) solution daily. documented as of this encounter Additional Health Concerns Infection Onset Date Last Indicated Resolved Time MRSAComment: IP note: risk factors - DM, impaired mobility, custodial resident 02/25/2015 02/25/2015 Pos nares 02/25/2015 Neg nares 11/02/18 Neg nares 12/13/18 N [place] 12/13/18 documented as of this encounter Care Teams Mural Painter Relationship Specialty Start Date End Date Pio Odonnell MD PCP - General 10/31/18 04/20/21 [address] [place] [address] documented as of this encounter
--- OUTSIDE RECORDS SUMMARY | 2022-03-17 00:36 | XMS_ITS | Encounter Summary ---
:1960 Author Organization [facility] Address [address] [place] [address] Care Team Providers Name Role Phone Pio Odonnell MD Primary Care Provider [phone] Pina Taylor MD Primary Care Provider Maricel Deshpande APRN Primary Care Provider [phone] Encounter Details Date Type Department Care Team Description 04/16/2020 Lab Requisition [facility] Outr Resulting Lab, Pathology & Laboratory Provider [facility] [address] [place], [place] [address] Social History Tobacco Use Types Packs/Day Years [...] Office Visit Urology Reji Foster MD [address] [facility], [facility], [facility] [address] [place] [phone] (Wo rk) documented as of this encounter Procedures Procedure Name Priority Date/Time Associated Comments Diagnosis DO NOT ORDER Today 04/16/2020 19:35 Results for this STANDALONE - REGULO EDT procedure a re in COVID TESTING the results section. COVID-19 TESTING Routine 04/16/2020 19:35 Results for this EDT procedure are i n the results section. documented in this encounter Results DO NOT ORDER STANDALONE - REGULO COVID TESTING (04/16/2020 19:35 EDT) COVID-19 rt-PCR Not Detected Not Detected [place] Result Comment: DEPARTMENT OF This test has not been FDA c leared or approved. This test has been authorized by FDA under an EUA for use by authorized laboratories. ??This test has been authorized only for the detection of nucleic ac [facility] id from SARS-CoV-2, not for [...] sooner. ??Fact sheets for healthcare provid ers: ??https://www.fda.gov/media/497638/download Factsheets for patients: https://www.fda.gov/media/713300/download Negative results do not prec lude infection with SARS-CoV-2 virus, and should not be the sole basis of a patient management decision. Specimen Swab - Entire nasopharynx (body structur e) Performing Organization Address City/[facility]/ZIP Code Phon e Number [facility] [address] [place], [place] [address] LABORATORY COVID-19 TESTING (04/16/2020 19:35 EDT) COVID-19 rt-PCR Not Detected Not Detected [place] Result Comment: DEPARTMENT OF This test has not been FDA c leared or approved. This test has been authorized by FDA under an EUA for use by authorized laboratories. ??This test has been authorized only for the detection of nucleic ac [facility] id from SARS-CoV-2, not for [...] sooner. ??Fact sheets for healthcare provid ers: ??https://www.fda.gov/media/331630/download Factsheets for patients: https://www.fda.gov/media/344529/download Negative results do not prec lude infection with SARS-CoV-2 virus, and should not be the sole basis of a patient management decision. Performing Lab [facility] LABORATORY SERVICES Specimen Swab Performing Organization Address City/[facility]/ZIP Code Phon e Number [facility] [address] [place] [address] SERVICES [facility] [address] [place], [place] [address] LABORATORY documented in this encounter Visit Diagnoses Not on filedocumented in this encounter Additional Health Concerns Infection Onset Date Last Indicated Resolved Time MRSAComment: IP note: risk factors - DM, impaired mobility, retirement resident 02/25/2015 02/25/2015 Pos nares 02/25/2015 Neg nares 11/02/18 Neg nares 12/13/18 N [place] 12/13/18 VREComment: IP note: 05/19/2021 05/19/2021 11/19/2021 22:15 EST Pos urine 05/12/21 Pos kidney fluid 05/19/21 Tamara Castro RN 05/24/21 documented as of this encounter Care Teams Optical Systems Engineer Relationship Specialty Start Date End Date Pio Odonnell MD PCP - General 10/31/18 04/20/[address] [place] [address] Pina Taylor MD PCP - General 04/21/21 10/03/21 [address] [place] [phone] Maricel Deshpande APRN PCP - General Geriatric Medicine 10/04/21 [facility] [address] [place] [address] documented as of this encounter
--- OUTSIDE RECORDS SUMMARY | 2022-03-17 00:36 | XMS_ITS | Encounter Summary ---
:1960 Author Organization [facility] Address [address] [place] [address] Care Team Providers Name Role Phone Pina Taylor MD Primary Care Provider Reason for Visit Auth/Cert Specialty Diagnoses / Procedures Referred By Contact Refer red To Contact Diagnoses Nephrolithiasis Procedures CA PERCUT REMV KID STONE,UP TO 2 CM NEPHROSTOLITHOTOMY, PERCUTANEOUS, WITH REMOVAL OF CALCULUS LESS THAN 2 CM IN DIAMETER Referral ID Status Reason Start Date Expiration Date Visits Requ ested Visits Authorized [id number] 04/06/2021 09/23/2021 1 1 Encounter Details Date Type Department Care Team Description 04/28/2021 - Hospital [facility] Reji Foster orn calculus 04/29/2021 Encounter Specialty Surgery MD Chance (Primary Dx) [address] [place] [phone] Social History Tobacco Use Types Packs/Day Years [...] Sign Reading Time Taken Comments Blood Pressure 127/79 04/29/2021 1003 EDT Pulse - - Temperature 36.7 ??C (98.1 ??F) 04/29/2021 1003 EDT Respiratory Rate 16 04/29/2021 1003 EDT Oxygen Saturation 96% 04/29/2021 1003 EDT Inhaled Oxygen Concentration - - Weight [...] Admit Date: 04/28/2021 Discharge Date: 04/29/2021 Disposition: detention facility Problems and Procedures Admitting Diagnosis: Right [...] Administered Date(s) Administered ??? Covid-19 mRNA Vaccine (Copier How To COVID-19) PF 0.3 ml IM (12 yrs+) [...] Component Value Units Date/Time Kidney Stone Analysis [[id number]] Collected: 04/28/21 1010 Lab Status: In process Specimen: Calculus from Kidney Updated: 04/28/21 1449 Bacterial Culture/Smear, Other [[id number]] Collected: 04/28/21 1009 Lab Status: Preliminary result [...] hear from usin one week, please call [facility], . What can I [...] you. It is important to keep taking fftc-tfy-lhejebi Tylenol (acetaminophen) and ibuprofen unless your doctor [...] more than 6 hours after stent removal [facility]: documented in this encounter [...] Type of housing (single family, condo, apartment, assisted, single room occupancy, [facility] funded hotel room, group senior living) - SNF Who does the patient live with? alone Does the patient have access to their own bedroom/bathroom/kitchen - or is it shared with others? shared Name of housing complex (ex [facility], [facility], etc)- n/a Housing Authority/Managing Organization - n/a Community Care Providers (onsite case manager, [facility] nurse, etc) name and contact information- n/a LIVING ARRANGEMENTS AND ACCESSIBILITY ISSUES: Living Arrangements: skilled nursing What in home social supports are available to the patient? Other (See comment) (Staff at SNF) Is 16/04 care available? Yes ADVANCED DIRECTIVES, POA &/or COLST IN PLACE: Healthcare Directive: Yes, patient has advance directive for healthcare treatment Type of Healthcare Directive: Other (Comment) (COLST) Copy in Chart: Yes, previous copy on file @ [facility] DIRECTIVES FOR FINANCES: TRANSPORTATION: Transportation: Ambulance Patient expects to be discharged to: [facility]. CULTURAL, ORIENTAL ORTHODOX and/or LANGUAGE factors affecting health care/discharge planning: [...] 7 Patient expects to be discharged to: [facility]. SBIRT: FUNCTIONAL STATUS: Activities patient requires assistance: Bathing, Dressing, Feeding, Food preparation/shopping, Grooming, In/Out of Bed, Mobility, Taking Medications, Toileting Assistive Device: Wheelchair, Slide board (Patient is mostly bedbound.) COMMUNITY RESOURCES/SUPPORTS: Primary Care Provider: Elian Taylor PCP Verified: Specialists: Other (Urology) DME Provider: Pharmacy: [id number] - [place], [place] - [address] [facility] [address] [facility] - [place], [place] - [address] [address] Home Health: Other: POST HOSPITAL TRANSITION PLAN: 60 year old female with PMHX of DM, Bipolar Affective Disorder, Anxiety, CVA, Parkinson's and Tardive Dyskinesia, is s/p Rt nephrolithiasis 04/28/21. Patient was discussed in morning IDRs and is medically ready to return to her detention, [facility]. CM met with patient at the bedside. Patient's right arm appears contracted. She stated she is mostly bedbound and is gotten out of bed to wheelchair briefly once daily; she is bathed once weekly. NITESH informed the nurse on the A Wing ([phone]) that patient will be returning today by ambulance. [facility] ambulance was set up for 1:00 PM pick-up. Patient is in agreement with this plan. Ama Wilson RN MSN CCM independent freight agent Pager [phone] sophia Wilson 04/29/2021 9:50 Mikhail De La [...] lower extremity neuropathy pain. No surgical pain. [place] feverish. Diet: Tolerating PO intake. Ambulation: Has [...] pyridium ??? Abx: Ceftriaxone 24 hrs ??? RISK CONTROL OFFICER Meds o Bupropion, Carbidopa-levodopa, Lamotrigine, Levothyroxine, Mirtazapine, [...] from 7AM-5PM page the Urology Service Pager #[phone] with questions. Nights and weekends, please page [...] 04/28/2021 ?? SURGEON: Reji Foster MD ?? ASBESTOS SURVEYOR: Pastor Donaldson MD ?? PREOPERATIVE DIAGNOSIS: Right [...] time. Please call Infection Prevention with questions [phone]. lan of Marie Ojeda - 04/29/2021 0115 EDT Problem: Daily Care [...] MARIE PEARSON RN 04/29/2021 1:16 lan of Alejandra Mar RN - 04/28/2021 1745 EDT Admission Note D - This is [...] EDT BRIEF OP NOTE Surgeon: Dr. Foster Conveyor Line Battery Charger: Dr. Donaldson Pre-op diagnosis: Right nephrolithiasis Post-op [...] 06/13/2022 Office Visit Urology Reji Foster MD [address] [place] [address], [address] [place], [place] [address] (Wo rk) documented as [...] Glucose, POC 212 (H) 70 - 100 [facility] mg/dL LABORATORY SERVICES HN LAB POC COMMENT Test Performed by [facility] [place] (GLUCOSE) Nursing Services LABORATORY SERVICES Specimen Blood - Capillary blood (substance) Performing Organization Address City/State/ZIP Code Phon e Number [facility] LABORATORY [address] [place] [address] RENAL STONE (04/29/2021 6:49 EDT) Anatomical Region Laterality Modality Body, Abdomen Computed Tomography Specimen Narrative [facility] RADIOLOGY MAIN CAMPUS - 04/29/2021 11:21 EDT [...] stool in the rectum Performing Organization Address [facility]/ZIP [facility] Phon e Number [facility] RADIOLOGY MAIN CAMP[facility] (ABNORMAL) GLUCOSE, SERUM (04/29/2021 2:47 EDT) Pathologist Sig nature Glucose 259 (H) 70 - 100 mg/dL [facility] LABORAT ORY SERVICES Specimen Blood - Venous blood (substance) Performing Organization Address [facility] Phon e Number [facility] LABORATORY [address] [place] [address] SERVICES CREATININE (04/29/2021 2:47 EDT) Creatinine 0.56 0.52 - 1.04 [facility] mg/dL LABORATORY SERVICES eGFR 102Comment: eGFR >60 [facility] calculated using mL/min/1.73m2 LABORATORY SERVICES CKD-EPI equation for non- Americans. Multiply eGFR by 1.16 for patients. Specimen Blood - Venous blood (substance) Performing Organization Address [facility] Phon e Number [facility] LABOR[facility]ORY [address] [place] [address] SERVICES BUN (04/29/2021 2:47 EDT) Pathologist Sig nature BUN 11 10 - 26 mg/dL [facility] LABORATO RY SERVICES Specimen Blood - Venous blood (substance) Performing Organization Address [facility] Phon e Number [facility] LABORATORY [address] [place] [address] SERVICES ELECTROLYTES (04/29/2021 2:47 EDT) Pathologist Sig nature Sodium 137 136 - 145 mEq/L [facility] LABORA TORY SERVICES Potassium 4.2 3.5 - 5.0 mEq/L [facility] LABORA TORY SERVICES Chloride 97 96 - 110 mEq/L [facility] LABORAT ORY SERVICES CO2 Total 27 22 - 32 mEq/L [facility] LABORATO RY SERVICES Specimen Blood - Venous blood (substance) Performing Organization Address [facility] Phon e Number [facility] LABORATORY [address] [place] [address] SERVICES (ABNORMAL) COMPLETE BLOOD COUNT (04/29/2021 2:47 EDT) Pathologist Sig nature WBC 6.14 4.00 - 12.40 K/cmm [facility] LABORATORY SERVICES RBC 3.89 3.86 - 5.04 M/cmm [facility] LABORATORY SERVICES Hemoglobin 11.1 (L) 11.6 - 15.2 gm/dL [facility] LABORATORY SERVICES HCT 34.4 (L) 34.9 - 44.4 % [facility] LABORATORY SERVICES MCV 88 81 - 98 fl [facility] LABORATORY SERVICES MCH 28.5 26.7 - 33.3 pg [facility] LABORATORY SERVICES MCHC 32.3 32.1 - 35.9 gm/dL [facility] LABORATORY SERVICES RDW-CV 14.6 <14.7 % [facility] LABORATORY SERVICES RDW-SD 47.5 <50.4 fl [facility] LABORATORY SERVICES PLT 187 141 - 377 K/cmm [facility] LABORATORY SERVICES MPV 10.0 9.5 - 12.7 fl [facility] LABORATORY SERVICES Specimen Blood - Venous blood (substance) Performing Organization Address City/[facility]/ZIP Code Phon e Number [facility] LABORATORY [address] [place] [address] SERVICES (ABNORMAL) POCT GLUCOSE, INTERFACED (04/28/2021 20:19 EDT) Glucose, POC 214 (H) 70 - 100 [facility] mg/dL LABORATORY SERVICES HN LAB POC COMMENT Test [facility] Nursing Services LABORATORY SERVICES Specimen Blood - Capillary blood (substance) Performing Organization Address City/[facility]/ZIP Code Phon e Number [facility] LABORATORY [address] [place] [address] SERVICES (ABNORMAL) POCT GLUCOSE, INTERFACED (04/28/2021 15:53 EDT) Glucose, POC 123 (H) 70 - 100 [facility] mg/dL LABORATORY SERVICES HN LAB POC COMMENT Test Performed by [facility] (GLUCOSE) Nursing Services LABORATORY SERVICES Specimen Blood - Capillary blood (substance) Performing Organization Address City/[facility]/ZIP [facility] Phon e Number [facility] LABOR[facility] [address] [place] [address] SERVICES XR CHEST PORTABLE 1 VIEW (04/28/2021 12:11 EDT) Anatomical Region Laterality Modality Computed Radiography Specimen Impressions [facility] RADIOLOGY MAIN [place] - 04/28/2021 14:55 EDT 1. ??No evidence of pneumothorax or pleural effusions but cannot be excluded on this semiupright portable AP radiograph. I have personally reviewed the images an d the above interpretation and agree with the findings. Narrative [facility] RAD[facility]OLOGY [facility] - 04/28/2021 14:55 EDT XR CHEST PORTABLE [...] agree with the findings. Performing Organization Address City/[facility]/ZIP Code Phon e Number [facility] RADIOLOGY MAIN [facility]AMP[facility] (ABNORMAL) POCT GLUCOSE, INTERFACED (04/28/2021 11:47 EDT) Glucose, POC 156 (H) 70 - 100 [facility] mg/dL LABORATORY SERVICES HN LAB POC COMMENT Test Performed by [facility] [place] (GLUCOSE) Nursing Services LABORATORY SERVICES Specimen Blood - Capillary blood (substance) Performing Organization Address City/[facility]/ZIP Code Phon e Number [facility] LABOR[facility]ORY [address] [place] [address] SERVICES FL LOOPOGRAM (04/28/2021 11:29 EDT) Specimen Narrative 04/28/2021 11:31 EDT This is a non-reportable exam. KIDNEY STONE ANALYSIS (04/28/2021 10:10 EDT) Pathologist [facility] Stone Analysis Not Reported [facility] Interpretation SEE NOTE [facility] Comment: LABORATORIES RESULT: 100% Magnesium ammonium phosphate (struvite) Test Performed by: [facility] [place] [address] Ramp Flight Attendant: Gordo Lynne M.D. Ph.D.; CLIA# [id number] Source: Right Kidney [facility] Specimen Calculus - Entire kidney (body structure ) Performing Organization Address [facility] Phon e Number [facility] [address] [place] [address] STONE PROCESSING CHARGE (04/28/2021 10:10 EDT) Pathologist [facility] Stone Processing Performed [facility] Charge Comment: LABORATORIES Test Performed by: [facility] [place] [address] Ramp Flight Attendant: Gordo Lynne M.D. Ph.D.; CLIA# [id number] Specimen Calculus - Entire kidney (body structure ) Performing Organization Address [facility]/ZIP Code Phon e Number [facility] [address] [place] [address] (ABNORMAL) BACTERIAL CULTURE/SMEAR (04/28/2021 10:09 EDT) Pathologist Sig nature Organism ID Few Proteus mirabilis [facility] (A) LABORATORY SERVICES Smear No Neutrophils Seen [facility] LABORATORY SERVICES Smear No bacteria seen [facility] LABORATORY SERVICES Specimen Calculus - Entire kidney [...] =320 ug/mL: Resistant xazole Performing Organization Address City/[facility]/ZIP Code Phon e Number [facility]OR[facility] [address] [place] [address] SERVICES TYPE AND SCREEN (04/28/2021 7:51 EDT) ABO A [facility] BLOOD BANK Rh Factor Positive [facility] Antibody Screen Negative [facility] B[facility]OD [facility] Specimen Expires: 05/01/2021 @ 23:59 [facility] BLOOD [facility] Specimen Blood - Venous blood (substance) Performing Organization Address City/[facility]/ZIP Code Phon e Number [facility] B[facility]OD [facility] [address] [facility] [place] [address] (ABNORMAL) POCT GLUCOSE, INTERFACED (04/28/2021 7:45 EDT) Glucose, POC 137 (H) 70 - 100 [facility] mg/dL LABORATORY SERVICES HN LAB POC COMMENT Test Performed by [facility] (GLUCOSE) Nursing Services LABORATORY SERVICES Specimen Blood - Capillary blood (substance) Performing Organization Address City/State/ZIP Code Phon e Number [facility] [address] [place] [address] SERVICES documented in this encounter Visit Diagnoses Diagnosis Calculus of kidney - Primary Staghorn calculus Calculus of kidney documented in [...] subcutaneous, EVERY 8 HOURS, First dose on Maria Eugenia 04/28/21 at 2100, Until Discontinued, Routine Given 04/28/2021 [...] intravenous, EVERY 10 MINUTES PRN, Starting on Maria Eugenia 04/28/21 at 1123, Until Maria Eugenia 04/28/21 at 1723, Pain, Routine, Recovery (only) insulin aspart U-100 (NOVOLOG FLEXPEN) Given 04/29/2021 9:39 EDT 5 Units injection subcutaneous, 3 TIMES DAILY WITH MEALS, First dose on Maria Eugenia 04/28/21 at 1700, Until Discontinued, Routine ketOROLAC (TORADOL) injection 15 mg Given 04/29/2021 10:50 EDT 15 mg 15 mg, intravenous, EVERY 6 HOURS PRN, Starting on Maria Eugenia 04/28/21 [...] Discontinued, Routine traZODone (DESYREL) tablet 25 mg Given 04/29/2021 [...] ( COMPLETED) 822 (Given - Provider: Moon Abarca, XIOMARA) 1 Tablet, oral, PRE-OP ONCE, 1 dose, On Sun04/28/21 at 0815, STAT, Preprocedure carbidopa-levodopa (SINEMET) 25-100 mg per tablet 1 Tablet 2017 (Given - Provider: Marie Pearson) 909 (Given - Provider: Wally Azul , XIOMARA)130 (Given - Provider: Wally Azul RN) 1 Tablet, oral, 4 TIMES DAILY, First dos e on Sun04/28/21 at 2100, Until Discontinued, Routine cefTRIAXone (ROCEPHIN) 2,000 mg in sodiu m chloride (NS MBP) 50 mL IVPB (COMPLETED) 831 (Given - Provider: Moon Abarca, XIOMARA) 2,000 mg, intravenous, Administer over 3 0 [...] Routine insulin aspart U-100 (NOVOLOG FLEXPEN) injection 162 (Not Given - Provider: Sonia Mccall RN - Reason: Order parameters not met - Comment: fingerstick 126) 0939 (Given - Provider: Wally Azul RN - Comment: [id number] (Not Given - Provider: Wally Azul RN - Reason: Patient off unit) subcutaneous, 3 TIMES DAILY WITH MEALS, First dose on Sun04/28/21 at 1700, Until Discontinued insulin aspart U-100 (NOVOLOG FLEXPEN) injection 2019 (Not Given - Provider: Marie Pearson - [...] mg 2017 (Given - Provider: Marie Pearson) 09 (Given - Provider: Wally Azul RN)1305 (Not [...] intravenous, CONT INUOUS, Starting on Maria Eugenia 04/28/21 at 0800, Until Maria Eugenia 04/28/21 at 1744, Routine, Preprocedure 1143 ( Anesthesia Volume Adjustment - Provider: Lynn Bright MD) lactated ringers (LR) infusion (CANCELED) 1329 (New Bag - Provider: Lynda Tucker RN)2221 (New Bag - Provider: Marie Pearson) 0852 (IV Stopped - Provider: Wally Azul RN) at 100 mL/hr, 100 mL/hr, intravenous, CO NTINUOUS, Starting on Maria Eugenia 04/28/21 at 1300, Until Sun04/29/21 at 0817, Routine [...] Reji Foster MD) As needed, Starting on Maria Eugenia 04/28/21 at 110 7, Until Sun04/28/21 at 1107, [...] mg, oral, AT BEDTIME PRN, Starting on Sun04/28/21 at 1744, Until Sun04/29/21 at 1527, Other, [...] insulin aspart U-100 (NOVOLOG FLEXPEN) 1 injection iohexoL (OMNIPAQUE 300) injection 1 04/28/2021 lactated ringers (LR) infusion 1 04/28/2021 lidocaine [...] (PHENERGAN) tablet 12.5 mg 1 04/28/20 21 sodium chloride 0.9 % irrigation 1 04/28/2021 Nursing Count Last Ordered Date First Ordered Date INSERT PERIPHERAL IV 1 04/28/2021 Discharge Count Last Ordered Date First Ordered Date DISCHARGE PATIENT 2 04/29/2021 Case Request Count Last Ordered Date First Ordered Date CASE REQUEST OPERATING ROOM 1 04/29/2021 documented in this encounter Additional Health Concerns Infection Onset Date Last Indicated Resolved Time MRSAComment: IP note: risk factors - DM, impaired mobility, detention resident 02/25/2015 02/25/2015 Pos nares 02/25/2015 Neg nares 11/02/18 Neg nares 12/13/18 N Joanie 12/13/18 documented as of this encounter Care Teams Duct Installer Relationship Specialty Start Date End Date Pina Taylor MD PCP - General 04/21/21 10/03/21 [address] [place] [phone] documented as of this encounter
--- OUTSIDE RECORDS SUMMARY | 2022-03-17 00:36 | XMS_ITS | Encounter Summary ---
:[address] [facility] Address [address] [place] [address] Care Team Providers Name Role Phone Pio Odonnell MD Primary Care Provider [phone] Reason for Visit (Routine) - Receiving Office to Obtain Authorization Specialty Diagnoses / Procedures Referred By Contact Refer red To Contact Procedures Unknown, Provider, CT OUTSIDE IMAGES BODY Phone: Referral ID Status Reason Start Expiration Visits Visits Date Date Requested Authorized [id number] Receiving Office 11/05/2020 1 1 to Obtain Authorization Encounter Details Date Type Department Care Team Description 11/05/2020 Hospital Encounter [facility] Secondary Reads [place] Social History Tobacco [...] suspensionIndications: labs done every 3 Vasculitis, primary 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 documented in this encounter Results CT OUTSIDE IMAGES BODY (11/05/2020 16:31 EST) Specimen Narrative 11/05/2020 16:31 EST This is a non-reportable exam. documented in this encounter Visit Diagnoses Not on filedocumented in this encounter Additional Health Concerns Infection Onset Date Last Indicated Resolved Time MRSAComment: IP note: risk factors - DM, impaired mobility, detention resident 02/25/2015 02/25/2015 Pos nares 02/25/2015 Neg nares 11/02/18 Neg nares 12/13/18 N [place] 12/13/18 documented as of this encounter Care Teams Portfolio Accountant Relationship Specialty Start Date End Date Pio Odonnell MD PCP - General 10/31/18 04/20/[address] [place] [address] documented as of this encounter
--- OUTSIDE RECORDS SUMMARY | 2022-03-17 00:36 | XMS_ITS | Encounter Summary ---
:[address] [facility] Address [address] [place] [address] Care Team Providers Name Role Phone Pio Odonnell MD Primary Care Provider [phone] Pina Taylor MD Primary Care Provider Maricel Deshpande APRN Primary Care Provider [phone] Encounter Details Date Type Department Care Team Description 04/29/2020 Lab Requisition [facility] Outr Resulting Lab, Pathology & Laboratory Provider [facility] [address] [place], [place] [address] Social History Tobacco Use Types Packs/Day Years [...] Office Visit Urology Reji Foster MD [address] [facility], [facility], [address] [place], [place] [address] (Wo rk) documented as of this encounter Procedures Procedure Name Priority Date/Time Associated Diagnosis Comme nts AFP TUMOR MARKER Routine 04/28/2020 14:12 EDT Res ults for this procedure are i n the results section. documented in this encounter Results AFP TUMOR MARKER (04/28/2020 14:12 EDT) AFP Tumor Marker <2.5 <8.1 ng/mL [facility] MEDICAL Comment: CENTER LABORATORY AFP Tumor Marker cannot be interpreted in fem ales. ?? SERVICES NOTE: Serum AFP concentrations jase uld not be interpreted as absolute evidence for the presence or absence of malignant disease. Assayed on Siemens ADVIA Nadege taur XPT using chemiluminescent technology. ??Values obtained by using different assay methods cannot be used interchangeably. Specimen Blood - Venous blood (substance) Performing Organization Address City/State/ZIP Code Phon e Number [facility] [address] [place] [address] SERVICES documented in this encounter Visit Diagnoses Not on filedocumented in this encounter Additional Health Concerns Infection Onset Date Last Indicated Resolved Time MRSAComment: IP note: risk factors - DM, impaired mobility, alf resident 02/25/2015 02/25/2015 Pos nares 02/25/2015 Neg nares 11/02/18 Neg nares 12/13/18 N [place] 12/13/18 VREComment: IP note: 05/19/2021 05/19/202111/19/2021 22:15 EST Pos urine 05/12/21 Pos kidney fluid 05/19/21 Tamara Castro RN 05/24/21 documented as of this encounter Care Teams Car Wash Supervisor Relationship Specialty Start Date End Date Pio Odonnell MD PCP - General 10/31/18 04/20/[address] [place] [address] Pina Taylor MD PCP - General 04/21/21 10/03/21 [address] [place] [phone] Maricel Deshpande APRN PCP - General Geriatric Medicine 10/04/21 [facility] [place] [address] documented as of this encounter
--- OUTSIDE RECORDS SUMMARY | 2022-03-17 00:36 | XMS_ITS | Encounter Summary ---
:1960 Author Organization [facility] Address [address] [place] [address] Care Team Providers Name Role Phone Pina Taylor MD Primary Care Provider Reason for Visit Reason Onset Date Comments Appointment Related 04/27/2021 Discuss Surgery 04/27/2021 Encounter Details Date Type Department Care Team Description 04/27/2021 Telephone [facility] Reji Foster ntment Related; Urology - Main Osiris Fletcher MD Discuss Surgery 111 [facility] [address] [phone] [facility] 5 [place] [address] (Wo rk) Social History Tobacco [...] this encounter Miscellaneous Notes Telephone Encounter - Maricel Seo RN - 04/27/2021 1354 EDT Spoke to Chelsy and confirmed that pt is first case in the morning and her arrangements seem correct. elephone Encounter - Johny Olivares - 04/27/2021 1138 EDT Chelsy is calling to confirm that the ambulance crew should be picking up the patient at 4:15am tomorrow morning to transport her to [facility] for her Surgery with Dr. Foster. If calling back before 2pm can speak with Laurent in A wing. Please call back to confirm. documented in this encounter Plan of Treatment Upcoming Encounters Date Type Specialty Care Team Description 06/13/2022 Appointment Radiology 06/13/2022 Office Visit Urology Reji Foster MD [address] [facility], [facility], Level 5 [place], [place] [address] (Wo rk) documented as of this encounter Visit Diagnoses Not on filedocumented in this encounter Additional Health Concerns Infection Onset Date Last Indicated Resolved Time MRSAComment: IP note: risk factors - DM, impaired mobility, [facility] resident 02/25/2015 02/25/2015 Pos nares 02/25/2015 Neg nares 11/02/18 Neg nares 12/13/18 N Joanie 12/13/18 documented as of this encounter Care Teams Data Security Analyst Relationship Specialty Start Date End Date Pina Taylor MD PCP - General 04/21/21 10/03/21 [address] [place] [phone] documented as of this encounter
--- OUTSIDE RECORDS SUMMARY | 2022-03-17 00:36 | XMS_ITS | Encounter Summary ---
:1960 Author Organization [facility] Address [address] [place] [address] Care Team Providers Name Role Phone Pina Taylor MD Primary Care Provider Maricel Deshpande APRN Primary Care Provider [phone] Reason for Visit Reason Onset Date Comments Coordination Of Care 04/26/2021 Encounter Details Date Type Department Care Team Description 04/26/2021 Telephone [facility] Reji Foster Coord ination Of Care Urology - [facility] Osiris Fletcher MD 111 [facility] [address] [phone] [facility] 5 [place] [address] (Wo rk) Social History Tobacco [...] this encounter Miscellaneous Notes Telephone Encounter - Ramya Hahn - 04/26/2021 1317 EDT Shubham is calling to let Dr. Foster know that the provider at [facility] has changed the patient'smedication from keflex 500mg 4/day to rocephin 1g every 24 hour hours because they believe it would better fight the 2 different types of bacteria. Please call Shubham back to discuss at [phone]. documented in this encounter Plan of Treatment Upcoming Encounters Date Type Specialty Care Team Description 06/13/2022 Appointment Radiology 06/13/2022 Office Visit Urology Reji Foster MD 111 [facility], [facility], Level 5 [place], [place] [address] (Wo rk) documented as [...] documented as of this encounter Care Teams Decision Unit Rn Relationship Specialty Start Date End Date Pina Taylor MD PCP - General 04/21/21 10/03/21 [address] [place] [address] Maricel Deshpande APRN PCP - General Geriatric Medicine 10/04/21 [address] [facility] [address] documented as of this encounter
--- OUTSIDE RECORDS SUMMARY | 2022-03-17 00:36 | XMS_ITS | Encounter Summary ---
:1960 Author Organization [facility] Address [address] [place] [address] Care Team Providers Name Role Phone Pina Taylor MD Primary Care Provider Reason for Visit Reason Onset Date Comments Orders (Non Pre-visit) 05/02/2021 Encounter Details Date Type Department Care Team Description 05/02/2021 Orders Only [facility] Reji Foster Pre-o p testing Urology - Main Osiris Fletcher MD (Primary Dx) 111 [facility] 111 [place] [address] Avenue [phone] [facility], Level 5 [place] [address] (Wo rk) Social History Tobacco [...] Office Visit Urology Reji Foster MD [address] [place] [address] 5 [place], [place] [address] (Wo rk) Scheduled Orders Name Type Priority Associated Diagnoses Order S chedule COVID-19 TESTING Microbiology Routine Pre-op testing Expected: 05/09/2021 (Approximate), Expires: 05/02/2022 documented as of this encounter Visit Diagnoses Diagnosis Pre-op testing - Primary Preoperative examination, unspecified documented in this encounter Orders Lab Orders Without Results Count Last Ordered Date Fir st Ordered Date BACTERIAL CULTURE, URINE 1 05/02/2021 documented in this encounter Additional Health Concerns Infection Onset Date Last Indicated Resolved Time MRSAComment: IP note: risk factors - DM, impaired mobility, [facility] resident 02/25/2015 02/25/2015 Pos nares 02/25/2015 Neg nares 11/02/18 Neg nares 12/13/18 N [place] 12/13/18 documented as of this encounter Care Teams Tobacco Sample Puller Relationship Specialty Start Date End Date Pina Taylor MD PCP - General 04/21/21 10/03/21 [address] [place] [address] documented as of this encounter
--- OUTSIDE RECORDS SUMMARY | 2022-03-17 00:36 | XMS_ITS | Encounter Summary ---
:1960 Author Organization [facility] Address [address] [place] [address] Care Team Providers Name Role Phone Pina Taylor MD Primary Care Provider Reason for Visit Reason Onset Date Comments COVID-19 2021 Encounter Details Date Type Department Care Team Description 2021 Telephone [facility] - Timbo Katz, COVID-19 BRYAN MCCOY MD 790 [facility] 111 [place], [place] [address] [place] [address], [facility] 5 [place], [place] [address] (Wo rk) Social History Tobacco Use Types [...] this encounter Miscellaneous Notes Telephone Encounter - Nicci Puente - 2021 4321 EDT Patient advised they would like covid testing done at [facility]. Relay Technician faxed the order to [phone] and asked that they schedule the patient. Relay Technician will also remove patient from the work queue. documented in this encounter Plan of Treatment Upcoming Encounters Date Type Specialty Care Team Description 06/13/2022 Appointment Radiology 06/13/2022 Office Visit Urology Reji Foster MD 111 [facility], [facility], Level 5 [place], [place] [address] (Wo rk) documented as of this encounter Visit Diagnoses Not on filedocumented in this encounter Additional Health Concerns Infection Onset Date Last Indicated Resolved Time MRSAComment: IP note: risk factors - DM, impaired mobility, long-term resident 02/25/2015 02/25/2015 Pos nares 02/25/2015 Neg nares 11/02/18 Neg nares 12/13/18 N [place] 12/13/18 documented as of this encounter Care Teams Agent Spa Desk Relationship Specialty Start Date End Date Pina Taylor MD PCP - General 04/21/21 10/03/21 [address] [place] [phone] documented as of this encounter
--- OUTSIDE RECORDS SUMMARY | 2022-03-17 00:36 | XMS_ITS | Encounter Summary ---
:1960 Author Organization [facility] Address [address] [place] [address] Care Team Providers Name Role Phone Pio dOonnell MD Primary Care Provider [phone] iPna Taylor MD Primary Care Provider Maricel Deshpande APRN Primary Care Provider [phone] Reason for Visit Reason Onset Date Comments COVID-19 04/19/2021 Encounter Details Date Type Department Care Team Description 04/19/2021 Telephone [facility] - Timbo Katz, COVID-19 BRYAN MCCOY MD [address], [facility] 5 [place], [place] [address] (Wo rk) Social History [...] this encounter Miscellaneous Notes Telephone Encounter - Cindy Tran - 04/19/2021 1305 EDT PRE-SURGERY COVID VACCINATION STATUS COMMUNICATION Date of planned surgery: 04/28/2021 Surgeon: Reji Foster Patient is fully covid vaccinated: Yes Date of vaccinations: 10/19/2020, 09/29/2020 documented in this encounter Plan of Treatment Upcoming Encounters Date Type Specialty Care Team Description 06/13/2022 Appointment Radiology 06/13/2022 Office Visit Urology Reji Foster MD 111 [facility], Level [address] [place], [place] [address] (Wo rk) documented as [...] documented as of this encounter Care Teams Supervisor Unloading Relationship Specialty Start Date End Date Pio Odonnell MD PCP - General 10/31/18 04/20/21 195 [place] [address] Pina Taylor MD PCP - General 04/21/21 10/03/21 [address] [place] [address] Maricel Deshpande APRN PCP - General Geriatric Medicine 10/04/21 [address] [facility] [address] documented as of this encounter
--- OUTSIDE RECORDS SUMMARY | 2022-03-17 00:36 | XMS_ITS | Encounter Summary ---
:1960 Author Organization [facility] Address [address] [place] [address] Care Team Providers Name Role Phone Pio Odonnell MD Primary Care Provider [phone] Reason for Visit Reason Onset Date Comments Orders (Non Pre-visit) 04/01/2021 Encounter Details Date Type Department Care Team Description 04/01/2021 Orders Only [facility] Reji Foster Pre-o p testing Urology - Main Osiris Fletcher MD (Primary Dx) 111 [facility] 111 [place] [address] Avenue [phone] [facility], Level 5 [place] [address] (Wo rk) Social History Tobacco [...] 06/13/2022 Office Visit Urology Reji Foster MD [address] [place] [address] 5 [place], [place] [address] (Wo rk) Scheduled Orders Name Type Priority Associated Diagnoses Order S chedule COVID-19 TESTING Microbiology Routine Pre-op testing Expected: 04/15/2021 (Approximate), Expires: 04/01/2022 documented as of this encounter Visit Diagnoses Diagnosis Pre-op testing - Primary Preoperative examination, unspecified documented in this encounter Additional Health Concerns Infection Onset Date Last Indicated Resolved Time MRSAComment: IP note: risk factors - DM, impaired mobility, custodial resident 02/25/2015 02/25/2015 Pos nares 02/25/2015 Neg nares 11/02/18 Neg nares 12/13/18 N [place] 12/13/18 documented as of this encounter Care Teams Tank [place] Relationship Specialty Start Date End Date Pio Odonnell MD PCP - General 10/31/18 04/20/[address] [place] [address] documented as of this encounter
--- OUTSIDE RECORDS SUMMARY | 2022-03-17 00:36 | XMS_ITS | Encounter Summary ---
:1960 Author Organization [facility] Address [address] [place] [address] Care Team Providers Name Role Phone Pio Odonnell MD Primary Care Provider Pina Taylor MD Primary Care Provider Maricel Deshpande APRN Primary Care Provider [phone] Encounter Details Date Type Department Care Team Description 04/02/2020 Lab Requisition [facility] Yojana Osorio, Ur inary tract Pathology & MD infection, site not Laboratory Medicine [address] [place] [address] 111 [facility] [address] [place], [place] [phone] Social History Tobacco Use Types Packs/Day Years [...] Office Visit Urology Reji Foster MD 111 [facility], [facility], Level 5 [place], [place] [address] (Wo rk) documented as of this encounter Procedures Procedure Name Priority Date/Time Associated Diagnosis Comme nts SUSCEPTIBILITY Today 04/01/2020 0:00 EDT Urinary tract Resul ts for this infection, site not procedur e are in the specified results section . documented in this encounter Results (ABNORMAL) SUSCEPTIBILITY (04/01/2020 0:00 EDT) Organism ID Proteus mirabilis (A) [facility] Comment: LABORATORY SERVICES Cefazolin susceptibility res ults can be used to predict susceptibility results for the following oral cephalosporins when used for therapy of uncomplicated UTIs due to E.coli, K.pneumoniae, and P.mirabi lis: cefaclor, cefdinir, cefpodoxime, cefprozil, cefuroxime, cephalexin, anita carbef. Cefdinir, cefpodoxime, and cefuroxime may be tested individually because some isolates may be susceptibile to these agents while testing resistance to cefazolin. Plea se note that only cefpodoxime and cephalexin are on the [facility] inpatient formulary. Specimen Organism - Urine (substance) Organism Antibiotic Method Susceptibility Proteus mirabilis Ampicillin VITEK SUSCEPTIBILITY >=32 ug/m L: Resistant Proteus mirabilis Cefazolin VITEK SUSCEPTIBILITY 8 ug/mL: Susceptible Proteus mirabilis Ceftriaxone VITEK SUSCEPTIBILITY <=1 ug/mL : Susceptible Proteus mirabilis Ciprofloxacin VITEK SUSCEPTIBILITY >=4 ug/mL : Resistant Proteus mirabilis Ertapenem VITEK SUSCEPTIBILITY <=0.5 ug/ mL: Susceptible Proteus mirabilis Meropenem VITEK SUSCEPTIBILITY 0.5 ug/mL : Susceptible Proteus mirabilis Nitrofurantoin VITEK SUSCEPTIBILITY 128 ug/mL : Resistant Proteus mirabilis Piperacillin Tazobactam VITEK SUSCEPTIBILITY < =4 ug/mL: Susceptible Proteus mirabilis Trimethoprim-Sulfametho VITEK SUSCEPTIBILITY > =320 ug/mL: Resistant xazole Performing Organization Address City/State/ZIP Code Phon e Number [facility] [address] [place] [address] SERVICES documented in this encounter Visit Diagnoses Diagnosis Urinary tract infection, site not specif ied documented in this encounter Additional Health Concerns Infection Onset Date Last Indicated Resolved Time MRSAComment: IP note: risk factors - DM, impaired mobility, [facility] resident 02/25/2015 02/25/2015 Pos nares 02/25/2015 Neg nares 11/02/18 Neg nares 12/13/18 N [place] 12/13/18 R/O COVID-19 04/02/2020 04/02/2020 04/07/2020 22:18 EDT VREComment: IP note: 05/19/2021 05/19/2021 11/19/2021 22:15 EST Pos urine 05/12/21 Pos kidney fluid 05/19/21 Tamara Castro RN 05/24/21 documented as of this encounter Care Teams Extrusion Die Corrector Relationship Specialty Start Date End Date Pio Odonnell MD PCP - General 10/31/18 04/20/[address] [place] [address] Pina Taylor MD PCP - General 04/21/21 10/03/21 [address] [place] [phone] Maricel Deshpande APRN PCP - General Geriatric Medicine 10/04/[address] [place] [address] documented as of this encounter
--- OUTSIDE RECORDS SUMMARY | 2022-03-17 00:36 | XMS_ITS | Encounter Summary ---
:1960 Author Organization [facility] Address [address] [place] [address] Care Team Providers Name Role Phone Pina Taylor MD Primary Care Provider Reason for Visit Reason Onset Date Comments Discuss Surgery 04/26/2021 Encounter Details Date Type Department Care Team Description 04/26/[address] [facility] Reji Foster Surgery Urology - [facility] Osiris Fletcher MD [address] [phone] [facility] Level 5 [place] [address] (Wo rk) Social History Tobacco [...] this encounter Miscellaneous Notes Telephone Encounter - Elin Bacon RN - 04/26/2021 1208 EDT Reviewed recent urine culture results with Dr. Edward. Have patient begin Keflex 500 mg PO QID x 7 days. Review results with Dr. Foster when he returns tomorrow to ensure okay to proceed with scheduled procedure on 04/28/21. TC to [facility], orders given to nursing to begin Kelfex 500 mg PO QID x 7 days. elephone Encounter - Qian Cast - 04/26/2021 0919 EDT Spoke with Mary Ellen at the [facility]. The patient was instructed to check in at 6:45 for a procedure at 8:30 on 04/28/21. You will be admitted after your procedure. Prep for Surgery: 1) Have no solid [...] Office Visit Urology Reji Foster MD [address] [place] [address], [facility], Level 5 [place] [address] (Wo rk) documented as of this encounter Visit Diagnoses Not on filedocumented in this encounter Additional Health Concerns Infection Onset Date Last Indicated Resolved Time MRSAComment: IP note: risk factors - DM, impaired mobility, senior living resident 02/25/2015 02/25/2015 Pos nares 02/25/2015 Neg nares 11/02/18 Neg nares 12/13/18 N [place] 12/13/18 documented as of this encounter Care Teams Prop And Scenery Maker Relationship Specialty Start Date End Date Pina Taylor MD PCP - General 04/21/21 10/03/21 [address] [place] [phone] documented as of this encounter
--- OUTSIDE RECORDS SUMMARY | 2022-03-17 00:37 | XMS_ITS | Encounter Summary ---
:1960 Author Organization [facility] Address [address] [place] [address] Care Team Providers Name Role Phone Pio Odonnell MD Primary Care Provider [phone] Reason for Visit Reason Onset Date Comments Appointment Related 03/15/2020 Encounter Details Date Type Department Care Team Description 03/15/2020 Telephone [facility] Reji Foster ntment Related Urology - Main Osiris Fletcher MD [address] [phone] [facility] Level 5 [place] [address] (Wo rk) Social History Tobacco [...] Notes Telephone Encounter - Lesa Smith - 04/06/2020 1541 EDT Call back to residential , patient is currently in the hospital, residential to call back when patient can be rescheduled, new contact is Chelsy. elephone Encounter - Lesa Smith - 03/16/2020 1030 EDT LM for Vicky to call back to reschedule elephone Encounter - Jame Gerber - 03/15/2020 1227 EDT Vicky called from the [facility] to ask when patient is scheduled for US and appt w/Dr. Foster. Archivist Political History informed her that patient is now scheduled for 03/19 at 9:30 and 10:45, but Vicky said she'd received a message stating the appts were canceled. Please call back to advise so that Vicky can arrange transportation for patient. documented in this encounter Plan of Treatment Upcoming Encounters Date Type Specialty Care Team Description 06/13/2022 Appointment Radiology 06/13/2022 Office Visit Urology Reji Foster MD 111 [facility], [facility], Level [address] [place], [place] [address] (Wo rk) documented as of this encounter Visit Diagnoses Not on filedocumented in this encounter Additional Health Concerns Infection Onset Date Last Indicated Resolved Time MRSAComment: IP note: risk factors - DM, impaired mobility, residential resident 02/25/2015 02/25/2015 Pos nares 02/25/2015 Neg nares 11/02/18 Neg nares 12/13/18 N [place] 12/13/18 R/O COVID-19 03/26/2020 03/26/2020 03/31/2020 22:17 EDT R/O COVID-19 04/02/2020 04/02/2020 04/07/2020 22:18 EDT documented as of this encounter Care Teams Fruit Culler Relationship Specialty Start Date End Date Pio Odonnell MD PCP - General 10/31/18 04/20/[address] [place] [address] documented as of this encounter
--- OUTSIDE RECORDS SUMMARY | 2022-03-17 00:37 | XMS_ITS | Encounter Summary ---
:1960 Author Organization [facility] Address [address] [place] [address] Care Team Providers Name Role Phone Pio Odonnell MD Primary Care Provider [phone] Encounter Details Date Type Department Care Team Description 11/26/2019 Orders Only [facility] Reji Foster of kidney Urology - [facility] Osiris Fletcher MD (Primary Dx) 111 [facility] 111 [place] [address] Avenue [phone] [facility], Level 5 [place] [address] (Wo rk) Social History Tobacco [...] MD 111 [facility], [facility], [facility] 5 [place], [place] [address] (Wo rk) documented as of this encounter Visit Diagnoses Diagnosis Calculus of kidney - Primary documented in this encounter Additional Health Concerns Infection Onset Date Last Indicated Resolved Time MRSAComment: IP note: risk factors - DM, impaired mobility, [facility] resident 02/25/2015 02/25/2015 Pos nares 02/25/2015 Neg nares 11/02/18 Neg nares 12/13/18 N [place] 12/13/18 documented as of this encounter Care Teams Spa Technician Relationship Specialty Start Date End Date Pio Odonnell MD PCP - General 10/31/18 04/20/[address] [place] [address] documented as of this encounter
--- OUTSIDE RECORDS SUMMARY | 2022-03-17 00:37 | XMS_ITS | Encounter Summary ---
:1960 Author Organization [facility] Address [address] [place] [address] Care Team Providers Name Role Phone Pio Odonnell MD Primary Care Provider [phone] Pina Taylor MD Primary Care Provider Maricel Deshpande APRN Primary Care Provider [phone] Encounter Details Date Type Department Care Team Description 12/04/2018 Telephone [facility] Case Management - [facility] [address] [place] [address] Social History Tobacco Use Types Packs/Day Years [...] do you have serious difficulty hearing? No 02/25/2015 Are you blind or do you have serious difficulty seeing, No 02/25/2015 even when wearing glasses? Do you have serious difficulty walking or climbing Yes 02/25/2015 stairs? (5 years old or older) Do you have difficulty dressing or bathing? (5 years old Yes 02/25/2015 or older) Because of a physical, mental, or emotional condition, Yes 07/20/2016 does this person have difficulty doing errands alone such as visiting a doctor's office or shopping? Cognitive Status Response Date of Assessment Because of a physical, mental, or emotional condition, Yes 07/20/2016 does this person have serious difficulty concentrating, remembering, or making decisions? documented as of this encounter Miscellaneous Notes Telephone Encounter - Kylie Rosales - 12/04/2018 5948 EDT Rec'd two urgent pages from main Case Management office. Caller Misa from the [facility] indicating that a patient was at risk of having her surgery canceled bc I had not called her back or acknowledged receipt of faxes.... Called [facility], local [facility] - no on name Misa works at either location Placed call to the [facility] in [place] - found [facility] (#[phone]). She wascalling about Ginger Barrera. Apologized profusely and explained that it was not Case management that had called her and that I was the wrong Kylie. She seemed distressed stating she had a fax in her h and stating that the patient's surgery was to be canceled if they did not receive the required info.Misa stated that she had faxed it on numerous occassions to #[phone] and wanted to ensure receipt of the info. Let Misa know that I would try and follow up with the office. Placed call to urology - Kylie Jensen was not available - they suggested that I LM for her as the other brick loader was not available, Message left on VM. Not return call thus far so I have also sent an email to ensure that patient is set for surgery tomorrow. Kylie Rosales # [id number] documented in this encounter Plan of Treatment Upcoming Encounters Date Type Specialty Care Team Description 06/13/2022 Appointment Radiology 06/13/2022 Office Visit Urology Reji Foster MD 111 [facility], [facility], Level 5 [place], [place] [phone] (Wo rk) documented as of this encounter [...] documented as of this encounter Care Teams Admissions Counselor Relationship Specialty Start Date End Date Pio Odonnell MD PCP - General 10/31/18 04/20/[address] [place] [address] Pina Taylor MD PCP - General 04/21/21 10/03/21 [address] [place] [phone] Maricel Deshpande APRN PCP - General Geriatric Medicine 10/04/[address] [place] [address] documented as of this encounter
--- OUTSIDE RECORDS SUMMARY | 2022-03-17 00:37 | XMS_ITS | Encounter Summary ---
:1960 Author Organization [facility] Address [address] [place] [address] Care Team Providers Name Role Phone Pio Odonnell MD Primary Care Provider [phone] Reason for Visit Reason Comments Follow-up Incontinent, 3 stones within the year, right side Follow Up (3 - 10 Business Days) - Authorization Not Required Specialty Diagnoses / Procedures Referred By Contact Refer red To Contact Urology Diagnoses Urinary tract infection without hematuria, site unspecified Saul Mesa MD [place], Kevan Michael, [address] , [facility] [address] [facility], [address] venue [address] [facility] [address] [address] Phone: Fax: Referral ID Status Reason Start Expiration Visits Visits Date Date Requested Authorized [id number] Authorization Specialty 11/02/2018 1 1 Not Required Services Required Encounter Details Date Type Department Care Team Description 11/26/2018 Office Visit [facility] Reji Foster Nephr olithiasis Urology - Chandrakant Fletcher MD (Primary Dx) [place] [address] [address] [facility] [place] [address] (Wo rk) Social History Tobacco [...] decisions? documented as of this encounter Discharge Diagnoses Diagnosis N20.0 Calculus of kidney-N20.0[ICD-10-CM ] documented in this encounter Discharge Disposition Disposition Code Departure Means Destination Auto Discharge documented in this encounter Progress Notes Reji Foster MD - 11/26/2018 0945 EST This is a 58-year-old female recently seen in consultation while admitted in the hospital for a large right renal pelvic stone. She has been having some discomfort, but was not obstructed or infected and, therefore, did not undergo any drainage procedures. She presents now for discussion on managementof her stone. She is still having some right-sided discomfort. She does have a history of kidney stones requiring interventions in the past. She is not sure of her stone type or any previous metabolic workup. She does have a significant history of stroke with subsequent right-sided paralysis. She comes from a snf facility on a stretcher, therefore ambulatory. She actually was seen in urology about 3 years ago, at which time she was seen more for urinary incontinence and started on an anticholinergic. It looks like her place of living in terms of remaining in [place] was unsure, and she, therefore, has not had followup for this. Her prior stone history was done in [place], [place]. I spent time reviewing her imaging, which shows an about 2 cm renal pelvic stone in the right kidney. It has fairly low Hounsfield units of about 400. Therefore, my suspicion is this may be uric acid. I did discuss with her at length the different options she has. We talked about potentially trying urinary alkalinization with potassium citrate. However, she would prefer definitive intervention. I talked to her about ureteroscopy in a potentially staged fashion, as the stone again soft and it is a single renal pelvic stone with 1 additional tiny lower pole stone. She would like a more definitive procedure and does not want risk of passing any fragments if possible. I described also percutaneous nephrolithotomy. We talked about the risks of access including injury to adjacent organs as well as bleeding and infection from the procedure itself. We talked about the postoperative course and the need for ureteral stent and possibly a nephrostomy tube afterwards. I think this may be best performed witha mini percutaneous procedure based on the stone burden as dictated above. After reviewing all the options, she would like to go ahead with a percutaneous nephrolithotomy, which we will establish. We are going to obtain a catheterized urine sample today for preoperative planning. We will keep you informed of her progress. documented in this encounter Plan of Treatment Upcoming Encounters Date Type Specialty Care Team Description 06/13/2022 Appointment Radiology 06/13/2022 Office Visit Urology Reji Foster MD [address] [place] [address], [facility], [address] [place], [place] [address] (Wo rk) documented as of this encounter Procedures Procedure Name Priority Date/Time Associated Diagnosis Comme nts BACTERIAL CULTURE, Routine 11/26/2018 10:05 Nephrolithiasis Re sults for this URINE EST procedure are i n the results section. documented in this encounter Results BACTERIAL CULTURE, URINE (11/26/2018 10:05 EST) Pathologist Sig nature Result Greater than 100,000 CFU/ml [facility] Result Less than 10,000 CFU/ml [facility] Usual urogenital irving. LABORATORY SERVIC ES Specimen Urine (substance) - Urine Organism Antibiotic Method Susceptibility Greater than Ampicillin SUSCEPTIBILITY (GISELLE) Resistant 100,000 cfu/ml klebsiella pneumoniae Greater than Gentamicin SUSCEPTIBILITY (GISELLE) Susceptible 100,000 cfu/ml klebsiella pneumoniae Greater than Trimethoprim-Sulfametho SUSCEPTIBILITY (GISELLE) Deedee ceptible 100,000 cfu/ml xazole klebsiella pneumoniae Greater than Nitrofurantoin SUSCEPTIBILITY (GISELLE) Intermediat e 100,000 cfu/ml klebsiella pneumoniae Greater than Tobramycin SUSCEPTIBILITY (GISELLE) Susceptible 100,000 cfu/ml klebsiella pneumoniae Greater than Ceftriaxone SUSCEPTIBILITY (GISELLE) Susceptible 100,000 cfu/ml klebsiella pneumoniae Greater than Ciprofloxacin SUSCEPTIBILITY (GISELLE) Susceptible 100,000 cfu/ml klebsiella pneumoniae Greater than Piperacillin Tazobactam SUSCEPTIBILITY (GISELLE) Deedee ceptible 100,000 cfu/ml klebsiella pneumoniae Greater than Meropenem SUSCEPTIBILITY (GISELLE) Susceptible 100,000 cfu/ml klebsiella pneumoniae Greater than Ertapenem SUSCEPTIBILITY (GISELLE) Susceptible 100,000 cfu/ml klebsiella pneumoniae Greater than Cefazolin SUSCEPTIBILITY (GISELLE) Susceptible 100,000 cfu/ml klebsiella pneumoniae Greater than Cefazolin SUSCEPTIBILITY (GISELLE) Cefazolin 100,000 cfu/ml susceptibility r esults klebsiella can be used to p redict pneumoniae susceptibility r esults for the following oral cephalosporins w hen used for therapy of uncomplicated UT Is due to E.coli, K.pneumoniae, an d P.mirabilis: cefaclor, cefdin ir, cefpodoxime, cefprozil, cefur oxime , cephalexin, loracarbef. Cefdinir, cefpod oxime, and cefuroxime m ay be tested individua lly because some iso lates may be susceptible to t hese agents while tram ting resistant to cefazolin. Please note that only cefpodoxime and cephalexin are o n the [facility] er inpatient formulary. Performing Organization Address City/State/ZIP Code Phon e Number [facility] [address] [place] [address] SERVICES documented in this encounter Visit Diagnoses Diagnosis Nephrolithiasis - Primary Calculus of kidney documented in this encounter Additional Health Concerns Infection Onset Date Last Indicated Resolved Time MRSAComment: IP note: risk factors - DM, impaired mobility, snf resident 02/25/2015 02/25/2015 Pos nares 02/25/2015 Neg nares 11/02/18 Neg nares 12/13/18 N [place] 12/13/18 documented as of this encounter Care Teams Nnp Relationship Specialty Start Date End Date Pio Odonnell MD PCP - General 10/31/18 04/20/[address] [place] [address] documented as of this encounter
--- OUTSIDE RECORDS SUMMARY | 2022-03-17 00:37 | XMS_ITS | Encounter Summary ---
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 Sun12/06/18 at 1854, Other, Sleep, Routine mycophenolate mofetil (CELLCEPT) suspension 100 Given 12/06/2018 10:14 EDT 100 mg mg 100 mg, oral, DAILY, First dose on Sun12/06/18 at 0900, Until Discontinued, Routine ondansetron (PF) (ZOFRAN) injection 4 mg 4 mg, intravenous, EVERY 4 HOURS PRN, St arting on Sun12/05/18 at 1551, Until Sun12/06/18 at 1854, Nausea, Routine ondansetron (ZOFRAN-ODT) disintegrating tablet 4 mg 4 mg, oral, EVERY 4 HOURS PRN, Starting on Sun12/05/18 at 1551, Until Sun12/06/18 at 1854, Nausea, Routine phenazopyridine (PYRIDIUM) tablet 200 mg Given 12/05/2018 21:13 EDT 200 mg 200 mg, oral, 3 TIMES DAILY PRN, 9 doses, Starting on Sun12/05/18 at 1551, Until Sun12/06/18 at 1854, Pain, Routine predniSONE (DELTASONE) tablet 2.5 mg Given 12/06/2018 10:15 EDT 2.5 mg 2.5 mg, oral, DAILY, First dose on Sun12/06/18 at 0900, Until Discontinued, Routine traZODone (DESYREL) tablet 25 mg Given 12/05/2018 21:54 EDT 25 mg 25 mg, oral, AT BEDTIME, First dose on Sun12/05/18 at 2100, Until Discontinued, Routine valproic acid (as sodium salt) (DEPAKENE) Given 12/06/2018 10:14 EDT 500 mg solution 500 mg 500 mg, oral, 2 TIMES DAILY, First dose on Sun12/05/18 at 2100, Until Discontinued, Routine Given 12/05/2018 21:14 EDT 500 mg documented in this encounter Discontinued Medications Medication Sig Discontinue Reason Start Date End Date predniSONE (DELTASONE) 10 Take 3 Tabs by Therapy completed 11/05/19 19 12/05/2018 mg tablet mouth daily. 30 mg daily 11/05 and 11/06 predniSONE (DELTASONE) 10 Take 1 Tab by mouth Therapy completed 12/05/2018 mg tablet daily. 10 mg daily 11/09 and 11/10 predniSONE (DELTASONE) Take 2 Tabs by Alternate therapy 11/11/2018 12/05/2018 2.5 mg tablet mouth daily. 5 mg daily 11/11 and 11/12 predniSONE (DELTASONE) 20 Take 1 Tab by mouth Alternate therapy 12/05/2018 mg tablet daily. 20 mg daily 11/07 and 11/08 cephALEXin (KEFLEX) 500 Take 500 mg by Reorder mg capsule mouth 2 times daily. X 7 days. Ends 12/09 for UTI documented as of this encounter Historical Medications This list may reflect changes made after this encounter. Medication Sig Dispensed Refills Start Date End Date cephALEXin (KEFLEX) 500 Take 500 mg by mouth 0 12/06/2018 mg capsule 2 times daily. X 7 days. Ends 12/09 for UTI added in this encounter Active and Recently Administered Medications Times are shown in EDT. Scheduled Medication Order 12/04/2018 12/05/2018 12/06/2018 aspirin chewable tablet 81 mg 10 13 (Given - Provider: Francine Jackson RN) 81 mg, oral, DAILY, First dose on Sun at 0900, Until Discontinued, Routine buPROPion (WELLBUTRIN SR) SR tablet 450 mg 1015 (Given - Provider: Francine Jackson RN) 450 mg, oral, DAILY, First dose on Sun at 0900, Until Discontinued, Routine carbidopa-levodopa (SINEMET) 25-100 mg per tablet 1 tablet 1757 (Given - Provider: Francine Jackson RN)2114 (Given - Provider: Chanelle Heath RN) 1015 (Given - Provider: Francine Jackson RN)1353 (Given - Provider: Francine Jackson RN)1700 (Canceled Entry - Provider: Batch Job User Admin - Comment: Automatically canceled at discontinue of medication order) 1 tablet, oral, 4 TIMES DAILY, First dos e on Sun12/05/18 at 1700, Until Discontinued, Routine ceFAZolin (ANCEF) 2,000 mg in sodium chloride 0.9% 50 mL IVP B (COMPLETED) 1659 (Given - Provider: Francine Jackson RN) 0002 (Given - Provider: Chanelle Heath RN)1013 (Given - Provider: Francine Jackson RN) 2,000 mg, intravenous, Administer over 3 0 Minutes, EVERY 8 HOURS, 3 doses, First dose on Sun12/05/18 at 1615, Last dose on Sun12/06/18 at 0800, Routine ceFAZolin (ANCEF) syringe 2 g (COMPLETED) 0900 (Given by Other - Provider: Hola Damon RN - Comment: Given by anesthesia provider, Jimbo Brown) 2 g, intravenous, Administer over 10 Min utes, PRE-OP ONCE, 1 dose, Maria Eugenia 12/05/18 at 0815, Routine cephALEXin (KEFLEX) suspension 500 mg 21 54 (Given - Provider: Chanelle Heath RN) 1014 (Given - Provider: Ashu Potts) 500 mg, oral, EVERY 12 HOURS, 14 doses, First dose on Sun12/05/18 at 2130, Last dose on Sun12/12/18 at 0900, Routine docusate (COLACE) liquid 100 mg 2148 (Given - Pr ovider: Chanelle Heath RN) 1014 (Given - Provider: Francine Jackson RN) 100 mg, oral, 2 TIMES DAILY, First dose on Sun12/05/18 at 2130, Until Discontinued, Routine heparin injection 5,000 Units 2113 (Given - Prov ider: Chanelle Heath RN) 1016 (Given - Provider: Francine Jackson RN) 5,000 Units, subcutaneous, EVERY 12 HOUR S, First dose on Sun12/05/18 at 2100, Until Discontinued, Routine insulin aspart U-100 (NOVOLOG FLEXPEN) injection 1713 (Not Given - Provider: Francine Jackson RN - Reason: Order parameters not met - Comment: FS 89) 0750 (Not Given - Provider: Francine Jackson RN - Reason: Order parameters not met)1232 (Not Given - Provider: Francine Jackson RN - Reason: Order parameters not met) subcutaneous, 3 TIMES DAILY WITH MEALS, First dose on Sun12/05/18 at 1700, Until Discontinued 1700 (Canceled Entry - Provider: Batch Job User Admin - Comment: Automatically canceled at discontinue of medication order) insulin aspart U-100 (NOVOLOG FLEXPEN) injection 2322 (Not Given - Provider: Chanelle Heath RN - Reason: Order parameters not met) subcutaneous, AT BEDTIME, First dose on Sun12/05/18 at 2100, Until Discontinued lamoTRIgine (LAMICTAL) tablet 50 mg 2112 (Given - Provider: Chanelle Heath RN) 1015 (Given - Provider: Francine Jackson RN) 50 mg, oral, 2 TIMES DAILY, First dose o n Sun12/05/18 at 2100, Until Discontinued levothyroxine (SYNTHROID) tablet 100 mcg 50 (Given - Provider: Chanelle Heath RN) 100 mcg, oral, DAILY BEFORE BREAKFAST, F irst dose on Sun12/06/18 at 0600, Until Discontinued, Routine mycophenolate mofetil (CELLCEPT) suspension 100 mg 1014 (Given - Provider: Francine Jackson RN) 100 mg, oral, DAILY, First dose on Sun at 0900, Until Discontinued, Routine predniSONE (DELTASONE) tablet 2.5 mg 1015 (Given - Provider: Francine Jackson RN) 2.5 mg, oral, DAILY, First dose on Sun at 0900, Until Discontinued, Routine traZODone (DESYREL) tablet 25 mg 2153 (Given - P rovider: Chanelle Heath RN) 25 mg, oral, AT BEDTIME, First dose on 12/05/18 at 2100, Until Discontinued, Routine valproic acid (as sodium salt) (DEPAKENE) solution 500 mg 2113 (Given - Provider: Chanelle Heath RN) 1014 (Given - Provider: Ashu Potts) 500 mg, oral, 2 TIMES DAILY, First dose on Sun12/05/18 at 2100, Until Discontinued, Routine Continuous Medication Order 12/04/2018 12/05/2018 12/06/2018 lactated ringers (LR) infusion (CANCELED) 0814 (New Bag - Provider: Staci Chan RN) at 30 mL/hr, 30 mL/hr, intravenous, CONT INUOUS, Starting Maria Eugenia 12/05/18 at 0815, Until Maria Eugenia 12/05/18 at 1552, Routine lactated ringers (LR) infusion (CANCELED) 1130 (New Bag - Provider: Charlotte Carrillo RN)1630 (Rate Documented - Provider: Francine Jackson, XIOMARA)2154 (New Bag - Provider: Chanelle Heath RN) at 100 mL/hr, 100 mL/hr, intravenous, CO NTINUOUS, Starting Maria Eugenia 12/05/18 at 1215, Until Sun12/06/18 at 0707, Routine PRN Medication Order 12/04/2018 12/05/2018 12/06/2018 acetaminophen (TYLENOL) suppository 650 mg(Linked Group 1) 185 (See Alternative - Provider: Francine Jackson RN) 0651 (See Alternative - Provider: Chanelle Heath RN) 650 mg, rectal, EVERY 4 HOURS PRN, Start ing Maria Eugenia 12/05/18 at 1551, Until Sun12/06/18 at 1854, Pain, Routine acetaminophen (TYLENOL) tablet 650 mg(Linked Group 1) 185 (Given - Provider: Francine Jackson RN) 0651 (Given - Provider: Chanelle Heath RN ) 650 mg, oral, EVERY 4 HOURS PRN, Startin g Maria Eugenia 12/05/18 at 1551, Until Sun12/06/18 at 1854, Pain, Routine dextrose 50 % solution 12.5 g 12.5 g (25 mL), intravenous, PRN, Starti ng Maria Eugenia 12/05/18 at 1551, Until Sun12/06/18 at 1854, Low Blood Sugar, Routine glucagon injection 1 mg 1 mg, intramuscular, PRN, Starting Maria Eugenia at 1551, Until Sun12/06/18 at 1854, Low blood sugar, Routine HYDROmorphone (DILAUDID) tablet 2-4 mg 2 113 (Given - Provider: Chanelle Heath RN) 1401 (Given - Provider: Ashu Potts) 2-4 mg, oral, EVERY 4 HOURS PRN, Startin g Maria Eugenia 12/05/18 at 1551, Until Sun12/06/18 at 1854, Pain, Routine HYDROmorphone injection (DILAUDID) 0.5 mg/1 mL syringe 0.3-0 .5 mg (CANCELED) 1302 (Given - Provider: Charlotte Carrillo RN)1333 (Given - Provider: Charlotte Carrillo RN)1457 (Given - Provider: Phil Simental) 0.3-0.5 mg, intravenous, EVERY 10 MINUTE S PRN, Starting Maria Eugenia 12/05/18 at 1106, Until Maria Eugenia 12/05/18 at 1549, Pain, Routine melatonin tablet 3 mg 2113 (Given - Provider: Alice Heath RN) 3 mg, oral, AT BEDTIME PRN, Starting Maria Eugenia 12/05/18 at 1551, Until Sun12/06/18 at 1854, Other, Sleep, Routine ondansetron (PF) (ZOFRAN) injection 4 mg(Linked Group 2) 4 mg, intravenous, EVERY 4 HOURS PRN, St arting Maria Eugenia 12/05/18 at 1551, Until Sun12/06/18 at 1854, Nausea, Routine ondansetron (ZOFRAN-ODT) disintegrating tablet 4 mg(Linked Group 2) 4 mg, oral, EVERY 4 HOURS PRN, Starting Maria Eugenia 12/05/18 at 1551, Until Sun12/06/18 at 1854, Nausea, Routine phenazopyridine (PYRIDIUM) tablet 200 mg 2112 (Given - Provider: Chanelle Heath RN) 200 mg, oral, 3 TIMES DAILY PRN, 9 doses , Starting Maria Eugenia 12/05/18 at 1551, Until Sun12/06/18 at 1854, Pain, Routine Linked Groups Order Group 1: acetaminophen (TYLENOL) tablet 650 mgJump to med 650 mg, oral, EVERY 4 HOURS PRN, Startin g Maria Eugenia 12/05/18 at 1551, Until Sun12/06/18 at 1854, Pain, Routine Or acetaminophen (TYLENOL) suppository 650 mgJump to med 650 mg, rectal, EVERY 4 HOURS PRN, Start ing Maria Eugenia 12/05/18 at 1551, Until Sun12/06/18 at 1854, Pain, Routine Group 2: ondansetron (PF) (ZOFRAN) injection 4 mgJump to med 4 mg, intravenous, EVERY 4 HOURS PRN, St arting Maria Eugenia 12/05/18 at 1551, Until Sun12/06/18 at 1854, Nausea, Routine Or ondansetron (ZOFRAN-ODT) disintegrating tablet 4 mgJump to med 4 mg, oral, EVERY 4 HOURS PRN, Starting Maria Eugenia 12/05/18 at 1551, Until Sun12/06/18 at 1854, Nausea, Routine documented in this encounter Orders Medications Ordered That Might Not Have Count Last Ord ered Date First Ordered Date Been Administered acetaminophen (TYLENOL) solution unit dose 1 12/05 cup 995 mg acetaminophen (TYLENOL) suppository 650 mg 1 12/05 acetaminophen (TYLENOL) tablet 1,000 mg 1 12/06/19 atropine 0.1 mg/mL syringe 0.5 mg 1 12/05/2018 cephALEXin (KEFLEX) capsule 500 mg 1 12/05/2018 dextrose 50 % solution 12.5 g 1 12/05/2018 diphenhydrAMINE (BENADRYL) injection 12.5 1 2018 mg docusate sodium (COLACE) capsule 100 mg 12/06/19 fentaNYL citrate (PF) injection 25-50 mcg 2018 glucagon injection 1 mg 1 12/05/2018 HYDROmorphone (DILAUDID) tablet 2-4 mg 1 9 insulin aspart U-100 (NOVOLOG FLEXPEN) 2 9 injection lactated ringers (LR) infusion 1 12/05/2018 metoCLOPramide (REGLAN) injection 10 mg 1 12/06/19 naloxone (NARCAN) injection 0.2 mg 1 12/05/2018 ondansetron (PF) (ZOFRAN) injection 4 mg 1 019 ondansetron (ZOFRAN-ODT) disintegrating 1 12/06/19 tablet 4 mg Lab Orders Without Results Count Last Ordered Date Fir st Ordered Date POCT GLUCOSE 2 12/05/2018 Procedures Count Last Ordered Date First Ordered Date IMPLANT RECORD - SCANNED 2 12/12/201812/10/ 019 Admission Count Last Ordered Date First Ordered Date STATUS: OUTPATIENT OBSERVATION SERVICES 1 12/06/19 STATUS: OUTPATIENT SURGICAL OP 1 12/05/2018 BED/SERVICES Transfer Count Last Ordered Date First Ordered Date NOTIFY PPS OF DISCHARGE COMPLETE 1 12/06/2018 NOTIFY PPS PATIENT ARRIVAL IN PACU 1 12/05/2018 NOTIFY PPS PATIENT TRANSFERRED OUT OF PACU 1 12/05 PPS NOTIFICATION OF PATIENT ARRIVAL ON 1 9 UNIT Discharge Count Last Ordered Date First Ordered Date DISCHARGE PATIENT 1 12/06/2018 documented in this encounter Additional Health Concerns Infection Onset Date Last Indicated Resolved Time MRSAComment: IP note: risk factors - DM, impaired mobility, long-term resident 02/25/2015 02/25/2015 Pos nares 02/25/2015 Neg nares 11/02/18 Neg nares 12/13/18 [place] 12/13/18 documented as of this encounter 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
--- OUTSIDE RECORDS SUMMARY | 2022-03-17 00:37 | XMS_ITS | Encounter Summary ---
:1960 Author Organization [facility] Address [address] [place] [address] Care Team Providers Name Role Phone Oivdio Linares MD Primary Care Provider [phone] Pio Odonnell MD Primary Care Provider [phone] Encounter Details Date Type Department Care Team Description 03/01/2017 Historical Results [facility] - Ovidio Linares Only [facility] Lab - Chandrakant Chavez MD [place] [address] [facility] [address] [place] [address] [place] [phone] (Wo rk) Social History Tobacco Use Types [...] Office Visit Urology Reji Foster MD [address] [facility], [facility], [address] [place] [phone] (Wo rk) documented as of this encounter Procedures Procedure Name Priority Date/Time Associated Comments Diagnosis URINALYSIS/COMPLETE - Routine 03/01/2017 16:00 Re sults for this [facility] EDT procedure are i n the results section. COMPLETE BLOOD COUNT Routine 03/01/2017 16:00 Res ults for this WITH DIFFERENTIAL EDT procedure are in (AUTO) the results section. URINE CULTURE IF Routine 03/01/2017 16:00 Results for this POSITIVE EDT procedure are i n the results section. HEMOGLOBIN A1C Routine 03/01/2017 16:00 Results f or this EDT procedure are i n the results section. HEPATIC FUNCTION Routine 03/01/2017 16:00 Results for this PANEL (ALB,ALK EDT procedure are in PHOS,ALT,AST,DBIL,TOT the re sults DOMITILA,TOT PROT) section. BASIC METABOLIC PANEL Routine 03/01/2017 16:00 Re sults for this (BMP) EDT procedure are i n the results section. documented in this encounter Results URINE CULTURE IF POSITIVE (03/01/2017 16:00 EDT) PROTEUS MIRABILIS - [facility] CitrateConcentration 10,000-100,000 CFU/ML [facility] Specimen Organism Antibiotic Method Susceptibility Proteus mirabilis Ampicillin Sulbactam GRAM NEGATIVE >=32: Res istant SUSCEPTIBILITY - [facility] Proteus mirabilis Ampicillin GRAM NEGATIVE >=32: Resistan t SUSCEPTIBILITY - [facility] Proteus mirabilis Ceftriaxone GRAM NEGATIVE <=1: Susceptib le SUSCEPTIBILITY - CV Proteus mirabilis Cefazolin GRAM NEGATIVE 16: Intermedia te SUSCEPTIBILITY - [facility] Proteus mirabilis Ciprofloxacin GRAM NEGATIVE >=4: Resistant SUSCEPTIBILITY - [facility] Proteus mirabilis Cefepime GRAM NEGATIVE <=1: Susceptib le SUSCEPTIBILITY - CV Prote[facility] Ertapenem GRAM NEGATIVE <=0.5: Suscept ible SUSCEPTIBILITY - [facility] Nitrofurantoin GRAM NEGATIVE 128: Resistant SUSCEPTIBILITY - [facility] Proteus mirabilis Gentamicin GRAM NEGATIVE >=16: Resistan t SUSCEPTIBILITY - [facility] Proteus mirabilis Levofloxacin GRAM NEGATIVE >=8: Resistant SUSCEPTIBILITY - [facility] Proteus mirabilis Piperacillin Tazobactam GRAM NEGATIVE <=4: S usceptible SUSCEPTIBILITY - [facility] Trimethoprim-Sulfamethox GRAM NEGATIVE >=320 : Resistant azole SUSCEPTIBILITY - [facility] Tobramycin GRAM NEGATIVE 8: Intermediat e SUSCEPTIBILITY - [facility] Comment: See Reason(s) for Study Performing Organization Address City/[facility]/ZIP Code Phon e Number [facility] [address] LAB (ABNORMAL) HEMOGLOBIN A1C (03/01/2017 16:00 EDT) Pathologist [facility] Hemoglobin A1c 8.4 (H) 4.0 - 6.0 % [facility] Est Avg Glucose 194 mg/dL [facility] R LAB Specimen Performing Organization Address [facility]/ZIP [facility] [address] LAB (ABNORMAL) HEPATIC FUNCTION PANEL (ALB,ALK PHOS,ALT,AST,DBIL,TOT DOMITILA,TOT PROT) (03/01/2017 16:00 EDT) Pathologist [facility] ALBUMIN - [facility] 2.4 (L) 3.4 - 5.0 g/dL [facility] ALKALINE PHOSPHATASE - 78 41 - 126 U/L [facility] ME D [facility] CENTER LAB BILIRUBIN TOTAL 0.3 0.0 - 1.0 mg/dL [facility] TOTAL PROTEIN - [facility] 7.7 6.4 - 8.2 gm/dl [facility] SGOT/AST - [facility] 26 10 - 37 U/L [facility] SGPT/ALT - [facility] 7 (L) 12 - 78 U/L [facility] BILIRUBIN DIRECT - 0.1 0.0 - 0.2 mg/dL [facility] Specimen Performing Organization Address [facility] Phon e Number [facility] [address] LAB (ABNORMAL) BASIC METABOLIC PANEL (BMP) (03/01/2017 16:00 EDT) BUN - [facility] 19 (H) 7 - 18 mg/dL [facility] CALCIUM - [facility] 9.0 8.5 - 10.1 [facility] mg/dL [facility] Chloride 102 98 - 107 mEq/L [facility] CO2 Total 28 21 - 32 mEq/L [facility] CREATININE 0.80 0.5 - 1.3 [facility] mg/dL [facility] eGFR >60 [facility] Comment: [facility] Chronic renal impairment is defined as GFR <60 Multiply result by 1.210 for patients . eGFR calculated using the IDMS-traceable MDRD Study Equation. ??(effective 07/27/2014) Anion Gap 9 5 - 15 [facility] GLUCOSE - [facility] 199 (H) 70 - 100 mg/dL [facility] Potassium 4.3 3.5 - 5.[address] [facility] mEq/L [facility] Sodium 139 135 - [address] [facility] mEq/L [facility] Specimen Performing Organization Address City/[facility] Code Phon e Number [facility] [address] LAB (ABNORMAL) COMPLETE BLOOD COUNT WITH DIFFERENTIAL (AUTO) (03/01/2017 16:00 EDT) Pathologist Sig nature ABSOLUTE NEUTROPHIL 4.73 1.7 - 7.0 [facility] COUN - [facility] 10e3/ul CENTER LAB BASO # - [facility] 0.01 0.0 - 0.3 [facility] 10e3/uL CENTER LAB BASO % - [facility] 0 0 - 2 % [facility] EOS # - [facility] 0.15 0.05 - 0.5 [facility] 10e3/uL [place] [facility] EOS % - [facility] 2 0 - 5 % [facility] GRAN % - [facility] 65 40 - 80 % [facility] HEMATOCRIT - [facility] 33.9 (L) 34.0 - 47.0 % [facility] HEMOGLOBIN - [facility] 10.5 (L) 11.2 - 15.7 [facility] g/dl [place] [facility] IG# - [facility] 0.05 0 - 0.07 [facility] 10e3/uL [place] [facility] IG% - [facility] 0.7 0 - 0.9 % [facility] LYMPH # - [facility] 1.78 0.9 - 2.9 [facility] 10e3/uL [place] [facility] LYMPH% - [facility] 24 20 - 40 % [facility] MEAN CORPUSCULAR HGB 30.0 26 - 34 pg [facility] MEAN CORPUSCULAR HGB 31.0 31 - 36 g/dL [facility] CONC [facility] MEAN CELL VOLUME - 96.9 77 - 100 fl [facility] MONO # - [facility] 0.62 0.3 - 0.9 [facility] 10e3/uL [place] [facility] MONO% - [facility] 8 0 - 12 % [facility] PLATELET COUNT 362 150 - 400 [facility] 10e3/ul [place] [facility] RED BLOOD COUNT - 3.50 (L) 3.8 - 5.2 [facility] 10e6/ul [place] [facility] RED CELL DISTRI WIDTH 14.4 11.8 - 15.6 % [facility] ME D [facility] WHITE BLOOD COUNT - 7.3 3.5 - 10.5 [facility] 10e3/ul [place] [facility] Specimen Performing Organization Address City/State/ZIP Code Phon e Number [facility] [address] [place], [place] [id number] [place] [address] LAB URINALYSIS/COMPLETE - [facility] (03/01/2017 16:00 EDT) URINE APPEARANCE - Sl Cloudy CLEAR [facility] URINE AMORPH [facility] [facility] URINE BACTERIA - FEW [facility] URINE BILIRUBIN - TNPComment: QNS NEGATIVE [facility] DIPSTICK - [facility] TO DIP [facility] URINE BLOOD - [facility] TNPComment: QNS NEG [facility] TO DIP [facility] URINE COLOR - [facility] Yellow YELLOW [facility] URINE GLUCOSE - TNPComment: QNS NEGATIVE [facility] DIPSTICK - [facility] TO DIP [facility] URINE KETONE - [facility] TNPComment: QNS NEGATIVE [facility] TO DIP [facility] URINE LEUK ESTERASE TNPComment: QNS NEG [facility] TO DIP [facility] URINE NITRITE - TNPComment: QNS NEG [facility] DIPSTICK - CV TO DIP [facility] URINE PH - CV TNPComment: QNS 4.0 - 8.0 [facility] TO DIP [facility] URINE PROTEIN - TNPComment: QNS NEG [facility] DIPSTICK - CV TO DIP [facility] URINE RBC - [facility] RARE rbc/hpf [facility] URCULTIF+? - [facility] Culture Ordered [facility] URINE SPECIFIC TNPComment: QNS 1.001 - 1.035 [facility] GRAVITY - [facility] TO DIP [facility] URINE SQUAMOUS CELLS RARE NEG #/hpf [facility] URINE UROBILINOGEN - TNPComment: QNS 0.2 - 1.0 [facility] DIPSTICK - [facility] TO DIP [facility] URINE WBC - [facility] 10-15 NEG wbc/hpf [facility] Specimen Performing Organization Address City/State/ZIP Code Phon e Number [facility] [address] LAB documented in this encounter Visit Diagnoses Not on filedocumented in this encounter Additional Health Concerns Infection Onset Date Last Indicated Resolved Time MRSAComment: IP note: risk factors - DM, impaired mobility, custodial resident 02/25/2015 02/25/2015 Pos nares 02/25/2015 Neg nares 11/02/18 Neg nares 12/13/18 N [place] 12/13/18 documented as of this encounter Care Teams Vice President Pharmacy Relationship Specialty Start Date End Date Ovidio Linares MD PCP - General 03/22/16 10/30/18 [facility] [address] [place] [phone] Pio Odonnell MD PCP - General 10/31/18 04/20/[address] [place] [id number] documented as of this encounter
--- OUTSIDE RECORDS SUMMARY | 2022-03-17 00:37 | XMS_ITS | Encounter Summary ---
:1960 Author Organization [facility] Address [address] [place] [address] Care Team Providers Name Role Phone Pio Odonnell MD Primary Care Provider [phone] Pina Taylor MD Primary Care Provider Maricel Deshpande APRN Primary Care Provider [phone] Encounter Details Date Type Department Care Team Description 03/26/2020 Lab Requisition [facility] Outr Resulting Lab, Pathology & Laboratory Provider [facility] [address] [place], [place] [address] Social History Tobacco Use Types Packs/Day Years [...] Office Visit Urology Reji Foster MD [address] [facility], [facility], [address] [place], [place] [phone] (Wo rk) documented as of this encounter Procedures Procedure Name Priority Date/Time Associated Diagnosis Comme nts COVID-19 TEST [facility] Today 03/26/2020 17:15 LAB PCR EDT COVID-19 TESTING Routine 03/26/2020 17:15 Results for this EDT procedure are i n the results section. documented in this encounter Results COVID-19 TEST [facility] LAB PCR (03/26/2020 17:15 EDT) Specimen Swab - Entire nasopharynx (body structur e) Performing Organization Address City/State/ZIP Code Phon e Number [facility] [address] [place] [address] SERVICES COVID-19 TESTING (03/26/2020 17:15 EDT) COVID-19 rt-PCR Negative Negative [facility] Result Comment: CENTER LABORATORY This test [...] and epidemiological informatio n. 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
--- OUTSIDE RECORDS SUMMARY | 2022-03-17 00:37 | XMS_ITS | Encounter Summary ---
:1960 Author Organization [facility] Address [address] [place] [address] Care Team Providers Name Role Phone Pio Odonnell MD Primary Care Provider [phone] Reason for Visit Reason Comments Follow-up ULS Encounter Details Date Type Department Care Team Description 01/28/2019 [facility] Reji Foster Nephr olithiasis Urology - Chandrakant Fletcher MD (Primary Dx) [place] [address] [place] [address], [place] [phone] (Wo rk) Social History Tobacco [...] encounter Progress Notes Reji Foster MD - 01/28/2019 1315 EDT FOLLOWUP VISIT This is a 58-year-old female treated for a large right-sided infectious based kidney stone. She had a percutaneous nephrolithotomy, followed by a second look ureteroscopy, and her stent was removed at the end of November. She presents now for a followup ultrasound to establish a new baseline and rule out hydronephrosis. She reports she has been having some back pain but reports this is central in location towards her lower back. I explained this does not sound like renal colic. I then reviewed her ultrasound, which was obtained and radiology. Neither kidney has any evidence of hydronephrosis. There may be some small, nonobstructing residual stones but difficult to tell on the ultrasound itself. I think no further intervention is warranted at this time. I have encouraged her to remain hydrated.I would like to continue to follow her, and we will see her back in 1 year with a new renal ultrasound. 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
--- OUTSIDE RECORDS SUMMARY | 2022-03-17 00:37 | XMS_ITS | Encounter Summary ---
:1960 Author Organization [facility] Address [address] [place] [address] Care Team Providers Name Role Phone Pio Odonnell MD Primary Care Provider [phone] Reason for Referral Referral (Routine/Next Available) - Closed Specialty Diagnoses / Procedures Referred By Contact Juancho velazquez To Contact Diagnoses HAP (hospital-acquired pneumonia) Staghorn renal calculus Chance Morgan MD [address] [place] [address] Referral ID Status Reason Start Date Expiration Date Visits V isits Requested Authorized [id number] Closed Specialty 11/04/2018 1 1 Services Required Question Answer Reason for Request: Return to [facility] Expected Discharge Date (Inpatient Only): 11/04/2018 (Routine) - Receiving Office to Obtain Authorization Specialty Diagnoses / Procedures Referred By Contact Juancho velazquez To Contact Chance Morgan MD [address] [place] [address] Referral ID Status Reason Start Expiration Visits Visits Date Date Requested Authorized [id number] Receiving Office Specialty 1 1 to Obtain Services 9 Authorization Required (Routine) - Receiving Office to Obtain Authorization Specialty Diagnoses / Procedures Referred By Contact Juancho velazquez To Contact Chance Morgan MD [address] [address] Referral ID Status Reason Start Expiration Visits Visits Date Date Requested Authorized [id number] Receiving Office Specialty 1 1 to Obtain Services 9 Authorization Required Follow Up (3 - 10 Business Days) - Authorization Not Required Specialty Diagnoses / Procedures Referred By Contact Refer red To Contact Urology Diagnoses Urinary tract infection without hematuria, site unspecified Saul Mesa MD [place], Reji Fletcher, [address], [address] [address] [place], [place] [address] [facility] venue [address] [facility] Irene Chapman [address] [place], [place] [address] Phone: Fax: Referral ID Status Reason Start Expiration Visits Visits Date Date Requested Authorized [id number] Authorization Specialty 11/02/2018 1 1 Not Required Services Required Question Answer Reason for Request: discuss PCNL on right Encounter Details Date Type Department Care Team Description 11/01/2018 - [facility] Germain Perez MD [address] [phone] Urinary tract infection without hematuri a, site unspecified (Primary Dx); 11/04/2018 Encounter General Surgery Marquise Sanchez MD [address] [address] HAP (hospital-acquired pneumonia); Unit Sepsis, due to unspecified o rganism ([facility]); [address] Staghorn renal calculus; [place], [place] Fecal impacti on ([facility]); [id number] Dysphagia, unspecified type; [phone] Type 2 diabetes mellitus without complication, without long-term current use of insulin ([facility]); Parkinson's dis ease ([facility]); DISTRICT WIRE CHIEF vasculitis ([facility]); Staghorn calcul us; Uterine mass Social History Tobacco Use Types Packs/Day Years [...] Sign Reading Time Taken Comments Blood Pressure 104/56 11/04/2018 0539 EST Pulse 74 11/02/2018 0627 EST Temperature 36.7 ??C (98.1 ??F) 11/04/2018 0539 EST Respiratory Rate 16 11/04/2018 0539 EST Oxygen Saturation 94% 11/04/2018 0539 EST Inhaled Oxygen Concentration - - Weight 65.6 kg (144 lb 10 oz) 11/02/2018 0931 EST Height 165.1 cm (5' 5) 11/02/2018 0931 EST Body Mass Index 24.07 11/02/2018 0931 EST documented in this encounter Functional Status [...] as of this encounter Discharge Diagnoses Diagnosis A41.02 Sepsis due to Methicillin resista nt Staphylococcus aureus-A41.02[ICD-10-CM] J15.212 Pneumonia due to Methicillin res istant Staphylococcus aureus-J15.212[ICD-10-CM] I67.7 Cerebral arteritis, not elsewhere classified-I67.7[ICD-10-CM] N39.0 Urinary tract infection, site not specified-N39.0[ICD-10-CM] G20 Parkinson's disease-G20[ICD-10-CM] N20.0 Calculus of kidney-N20.0[ICD-10-CM ] E11.9 Type 2 diabetes mellitus without c omplications-E11.9[ICD-10-CM] G40.909 Epilepsy, unspecified, not intra ctable, without status epilepticus-G40.909[ICD-10-CM] K56.41 Fecal impaction-K56.41[ICD-10-CM] F31.9 Bipolar disorder, unspecified-F31. 9[ICD-10-CM] R53.1 Weakness-R53.1[ICD-10-CM] Y95 Nosocomial condition-Y95[ICD-10-CM] F41.9 Anxiety disorder, unspecified-F41. 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-I25.10[ICD-10-CM] D25.9 Leiomyoma of uterus, unspecified-D 25.9[ICD-10-CM] Z88.0 Allergy status to penicillin-Z88.0 [ICD-10-CM] Z86.73 Personal history of transient isc hemic attack (TIA), and cerebral infarction without residual deficits-Z86.73[ICD-10- CM] Z79.899 Other [facility] (current) drug t herapy-Z79.899[ICD-10-CM] Z79.52 terminal 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 (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) use of system ic steroids-Z79.52[ICD-10-CM] Z88.2 Allergy status to sulfonamides sta tus-Z88.2[ICD-10-CM] Z99.81 Dependence on supplemental oxygen -Z99.81[ICD-10-CM] Z87.891 Personal history of nicotine dep endence-Z87.891[ICD-10-CM] Z79.82 [facility] (current) use of aspiri n-Z79.82[ICD-10-CM] Z87.440 Personal history of urinary (tra ct) infections-Z87.440[ICD-10-CM] documented in this encounter Discharge Summaries Marquise Sanchez MD - 11/04/2018 0928 EST Medicine Discharge Summary Primary Care Provider: Pio Odonnell Attending Physician: Marquise Sanchez MD Admit Date: 11/01/2018 Discharge Date: 11/04/2018 Disposition: [facility] Reason for Admission: Staghorn Calculi And MRSA PNA Principal/Final Diagnosis: Staghorn calculus Additional Problems Managed in the Hospital Active Hospital Problems Diagnosis Date Noted ??? *Staghorn calculus 11/04/2018 ??? MRSA pneumonia ([facility]) 11/04/2018 ??? Urinary tract infection without hematuria 11/01/2018 Resolved Hospital Problems No resolved problems to display. Principal Procedure: None Hospital Course: Ginger Barrera is a 58 y.o. 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 Patient presented to an OSH ED on 10/29/18 with several days of cough, fever, and weakness found to have bilateral lobar consolidations concerning for PNA and right renal staghorn caliculus. At OSH treated with 50 mg prednisone x1 (on 2.5 mg as FRAME TABLE OPERATOR medication), given IV fluids but remained hypotensive and was treated with vasopressors. She was subsequently weaned off pressors. Transferred to [facility] for urology consultation. At [facility] she was continued on vancomycin and cefepime for HCAP for a total of five days completed 11/03/18. Urology recommendation for no surgical intervention and to follow up as an outpatient. Startedon prednisone taper given steroid burst at OSH as follows (details below)., to resume home FRAME TABLE OPERATOR 2.5 mg daily prednisone (for DISTRICT WIRE CHIEF vasculitis) on 11/13. Also disimpacted this admission for severe constipation. ??Of note OSH read of uterine mass said likely fibroid Condition at Discharge: Improved Clinical Issues Needing Follow-up: OSH read of uterine mass most likely fibroid - f/u CT or TVUS in 6 weeks. R. Staghorn calculi - urology f/u in 2 weeks Sepsis secondary to pneumonia - complete steroid taper as follows: 30 mg daily 11/05 and 11/06 20 mg daily 11/07 and 11/08 10 mg daily11/09 and 11/10 5 mg daily 11/11 and 11/12 Resume with home 2.5 mg daily on 11/13 Allergies Allergen Reactions ??? Darvocet A500 [Propoxyphene N-Acetaminophen] Nausea And Vomiting ??? Methadone ??? Naproxen Does not work ??? Penicillins ??? Sulfa (Sulfonamide Antibiotics) ??? Tylox [Oxycodone-Acetaminophen] itching Immunization History Administered Date(s) Administered ??? Influenza (split) 12/09/2010 ? ? Pneumococcal Polysaccharide (PPSV23) Vaccine (PNEUMOVAX-23) =>2YO SQ/IM 12/09/2010 Results Pending at Discharge Test results still pending from this admission Procedure Component Value Units Date/Time Electrolytes [[id number]] Collected: 11/04/18946 Lab Status: In process Specimen: Blood Updated: 11/04/18 1006 BUN [[id number]] Collected: 11/04/18946 Lab Status: In process Specimen: Blood Updated: 11/04/18 1006 Creatinine [[id number]] Collected: 11/04/18946 Lab Status: In process Specimen: Blood Updated: 11/04/18 1006 Hemagram [[id number]] Collected: 11/04/18946 Lab Status: In process Specimen: Blood Updated: 11/04/18 1006 Bacterial Culture, Blood [[id number]] Collected: 11/01/182216 Lab Status: In process Specimen: Blood Updated: 11/01/182240 Bacterial Culture, Blood [[id number]] Collected: 11/01/182216 Lab Status: In process Specimen: Blood Updated: 11/01/182239 Hemoglobin A1c [[id number]] Collected: 11/01/182216 Lab Status: In process Specimen: Blood Updated: 11/01/182220 Follow-up appointments and procedures Amb Consult/Follow Up Urology Reason for Request: discuss PCNL on right Authorizing Provider: Saul Mesa MD Discharge Handoff Communication Following information conveyed to Dr. Odonnell's staff, by Tanvi Desai MD: ?? Reason for admission and final diagnosis ?? Medication changes ?? Appointments and tests needed after discharge (includes repeat studies and at what interval) ?? Tests (laboratory, pathology, etc.) pending at discharge ?? Anticoagulation plan if applicable (including medications and next blood draw) Discharge Summary Completed By: Tanvi Desai PGY1 Internal Medicine Pager: [phone] ATTENDING ATTESTATION: Date of service: 11/04/2018 I have interviewed and examined the patient and discussed with the housestaff. I agree with and edited the note above. I spent a total of 35 minutes on the unit directly in the care of this patient today Marquise Sanchez MD Internal Medicine Hospitalist Service 11/04/2018 12:09 documented in this encounter Discharge Instructions Discharge Instr - AVS First PageSChance torres MD - 11/04/2018 12:29 EST Plan to continue pt on prednisone taper - 30mg on 11/05 and , 20mg on 11/07 and 15, 10mg 11/09 and , then resume home dose of 2.5mg daily Follow up with urology has been ordered Pt has an incidental finding of uterine mass on CT, likely fibroid per [place] radiology read but repeat imaging in 3-6 months may be appropriate. Will defer to PCP. LANGUAGE PATH recommending dysphagia 2 diet with nectar thick liquids due to aspiration risk documented in this encounter Medications at Time of Discharge Medication Sig Dispensed Refills Start Date End Date aspirin chewable 81 mg Take 81 mg by mouth 0 tablet daily. buPROPion (WELLBUTRIN SR) Take 450 mg by 0 150 mg SR tablet mouth daily. carbidopa-levodopa Take 1 Tab by mouth 0 (SINEMET) 25-100 mg per 4 times daily tablet Lamotrigine 50 mg tablet Take 50 mg by mouth 0 extended release 24hr daily. levothyroxine (SYNTHROID) Take 125 mcg by 0 125 mcg tablet mouth daily. Multivitamins with Take 1 Tab by mouth 0 Minerals tablet daily traZODone (DESYREL) 50 mg Take 25 mg by mouth 0 tablet 2 times daily. mycophenolate mofetil Take 0.5 mL by 3 Bottle 1 06/12/2013 04/20/2021 (CELLCEPT) 200 mg/mL mouth daily. Need suspensionIndications: labs done every 3 Vasculitis, primary DISTRICT WIRE CHIEF months ([facility]) ([facility]) predniSONE (DELTASONE) 10 Take 3 Tabs by 6 Tab 0 201812/05/2018 mg tablet mouth daily. 30 mg daily 11/05 and 11/06 predniSONE (DELTASONE) 10 Take 1 Tab by mouth 2 Tab 0 0 11/09/2018 12/05/2018 mg tablet daily. 10 mg daily 11/09 and 11/10 predniSONE (DELTASONE) 2.5 Take 2 Tabs by 4 Tab 0 11/1112/05/2018 mg tablet mouth daily. 5 mg daily 11/11 and 11/12 predniSONE (DELTASONE) 20 Take 1 Tab by mouth 2 Tab 0 0 11/07/2018 12/05/2018 mg tablet daily. 20 mg daily 11/07 and 11/08 predniSONE (DELTASONE) 5 Take 0.5 Tabs by 30 Tab 0 11/1304/20/2021 mg tablet mouth daily. valproic acid, as sodium Take 500 mg by 0 04/20/2021 salt, (DEPAKENE) 250 mg/5 mouth 2 times mL (5 mL) solution daily. documented as of this encounter Ordered Prescriptions Prescription Sig Dispensed Refills Start Date End Date predniSONE (DELTASONE) 2.5 Take 2 Tabs by 4 Tab 0 11/1112/05/2018 mg tablet mouth daily. 5 mg daily 11/11 and 11/12 documented in this encounter Discharge Disposition Disposition Code Departure Means Destination Nursing Facility (Skilled) documented in this encounter Progress Notes O'Karthik, Yamini, PT - 11/04/2018 1401 EST [facility] [facility] Date of Service: 11/04/2018 Patient with discharge orders prior to PT consult with discharge plans to [facility]. PT referral discontinued. Yamini Simon, PT 11/04/2018 14:01 Alma Del Rosario - 11/04/2018 1056 EST CAREER DEVELOPMENT COUNSELOR DISCHARGE NOTE: DISCHARGE DATE/TIME: Today, Saturday 11/04 at 12:30 PLACE OF DISCHARGE: [facility] in [facility] Resident MODE OF TRANSPORT: [facility] IM SIGNED (Y/): n/a FORMS ON CHART (Y/N): yes ACCEPTING MD AND NUMBER: Pio Odonnell [phone] RN REPORT/UNIT: - [place] Charge Nurse PATIENT AWARE AND IN AGREEMENT OF PLAN: yes FAMILY NOTIFIED (IF APPLICABLE- Y/N): n/a BICYCLE SERVICE TECHNICIAN/CHARGE/MD NOTIFIED (Y/N): yes Radha Lynn RN CM #[id number] Saul Rees MD - 11/03/2018 1203 EST Patient seen briefly this AM and chart reviewed. No new urologic recommendations, will continue to follow peripherally while patient in house. Call with questions/concerns -- patient is set up to have urology follow up to discuss elective right sided PCNL Saul Mesa MD 11/03/2018 12:05 Marquise Keenan MD - 11/03/2018 0859 EST Medicine Progress Note Service Date: 11/03/2018 Admit Date: 11/01/2018 21:52 Reason for Admission: 58 y.o. female transferred from [facility] with pneumonia and for urology consultation regarding staghorn calculus 24 Hour Events: - Femoral line pulled Subjective/Objective Subjective Still some abdominal pain this morning, but improved after she started having BMs again. She has a good appetite and denies any chest pain, SOB, palpitations, dizziness/lightheadedness, nausea, vomiting, diarrhea, or headache. Review of Systems Pertinent items are noted in Subjective/HPI Objective Vital Signs Temp: [35.7 ??C (96.3 ??F)-36.2 ??C (97.2 ??F)] (), Heart Rate: [73 BPM] (), Resp: [16] (), BP: (92-108)/(52-68) (), SpO2: [93 %-95 %] ()room air Physical Exam Gen: Lying in bed in NAD, breathing comfortably on room air; difficult to understand her responses to questions sometimes HEENT: MMM, repetitive mouth movements/tremor Neck: supple, no JVD CV: RRR, no m/r/g Pulm: CTAB, no wheezes or rhonchi Abd: Soft, distended, right sided abdominal tenderness to palpation with mild R CVA tenderness Extrem: warm and well perfused, trace edema Pulses: 2+ in all four extremities Neuro: CN grossly intact, decreased strength RUE, bilateral low frequency UE tremor Skin: no rashes, no jaundice Lines: PIV Is PICC or central line present? No, PICC/Central line not present. Medications Reviewed: No changes Labs Reviewed: Results notable for Hb 10.9 (baseline), UA with trace blood but no WBC/leuk/nitrites. Imaging Reviewed: No new imaging. CT Chest (10/29, OSH) 1. Bilateral lower lobe consolidation, severe on the right and moderate on the left. 2. Rounded density within the right middle lobe. Differential diagnosis includes rounded pneumonia, rounded atelectasis and pulmonary neoplasm. Follow-up imaging to confirm resolution is recommended. ?? CT A/P (10/29, OSH) 1. Right nephrolithiasis with 15 mm staghorn calculus within the right renal pelvis. 2. Large fecal load within the rectum possibly fecal impaction. 3. Low density uterine mass, likely fibroid. Assessment/Plan Assessment Ginger L Holly is a 58 y.o. 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 Patient presented to the [facility] ED on 10/29 with several days of cough, fever, hypotension, and weakness, found to have bilateral lobar consolidations concerning for PNA and renal staghorn caliculus (transferred to [facility] for urology consultation). Clinically stable and no acute urologic intervention, awaiting transfer back to [facility]. Plan Sepsis secondary to pneumonia - Initially presented to OSH in septic shock requiring course of pressors. Impressive consolidations on CT chest. Shorr Score: 4 (intermediate for MRSA pna). On chronic prednisone 2.5 mg daily, stress dosed at OSH with 50 mg daily. Now improved. - Vanc 15mg/kg day 01/26 - Cefepime day 5/ - Prednisone 40mg taper to FRAME TABLE OPERATOR 2.5 mg decreasing 10 mg every 2 days - Blood cx - femoral line removed ?? Staghorn calculi - Right renal pelvis, 15mm without hydronephrosis. Negative UA and no urinary symptoms, but mild right flank pain (improving with BMs) - Urology consulted - urine culture - no acute intervention - recommended OP f/u - OSH read of uterine mass said likely fibroid Fecal impaction - large fecal load noted on OSH CT. I didn't feel a hard stool ball on rectal disimpaction, but a lot of stool in the vault. However, after the disimpaction she is starting to have BMs again. - Dulcolax supp prn - Miralax BID - Senna 3 tabs qhs ?? Dysphagia - pt with reported dysphagia at osh. Possible aspiration pna. - LANGUAGE PATH eval Chronic problems T2DM - Not on treatment FRAME TABLE OPERATOR - SSI - A1c Hx of DISTRICT WIRE CHIEF vasculitis - requiring long-term immunosuppression w/prednisone and mycophenolate. - Steroids as above (on pred 2.5mg daily) - Hold FRAME TABLE OPERATOR mycophenolate (while actively infected) - restart tomorrow Parkinson's disease - FRAME TABLE OPERATOR carbidopa-levodopa 25-100mg QID Depression/bipolar - FRAME TABLE OPERATOR lamotrigine 50 mg BID - FRAME TABLE OPERATOR valproic acid 500 mg PO BID - FRAME TABLE OPERATOR wellbutrin 450 mg daily - FRAME TABLE OPERATOR trazodone 25 mg qhs Hypothyroidism - FRAME TABLE OPERATOR synthroid 100 mcg PO daily CAD - FRAME TABLE OPERATOR ASA 81mg daily VTE Prophylaxis Pharmacologic Prophylaxis: Enoxaparin (Lovenox) 40 mg SQ daily Discharge Plan Transfer to another facility - [facility] as there are no acute urologic interventions Consults urology David Carrillo MD 11/03/2018 12:59 ATTENDING ATTESTATION: Date of service: 11/03/2018 I have interviewed and examined the patient and discussed with the housestaff. I agree with and edited (in blue) the findings and plan of care as documented in the note above. Marquise Sanchez MD Internal Medicine Hospitalist Service 11/03/2018 14:04 Inez Feliz - 11/02/2018 1617 EST NITESH called and spoke with Yoly at [facility]. Yoly called her store stocker, Mone, who saidthe patient can come back on November 04. Staci Villela CCC-LANGUAGE PATH - 11/02/2018 1201 EST Speech-Language Pathology Clinical Swallow Evaluation LANGUAGE PATH Diagnosis: Dysphagia, oropharyngeal phase: Medical Diagnosis: NEVRH RENAL CALCULUS TO AMB N20.2 Calculus of kidney with calculus of ureter-N20.2[ICD-10-CM] Date of Service: 11/02/2018; 12:02 Date of Onset: 11/01/2018 Date of Referral: 11/01/2018 Start Time: 929 Total Therapy minutes: 20 minute(s) SUBJECTIVE: They say that I have pneumonia. When I drink to fast I cough, sometimes it makes me gag. OBJECTIVE: History: Per Gabriele Card MD 11/01/2018 Ginger Barrera is a 58 y.o. 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 Patient presented to the [facility] ED on 10/29 with several days of cough, fever, and weakness. ?? Arrival to the ED patient was noted to be hypotensive, hypoxic, with cxr showing bilateral airspace opacities suggestive of pneumonia. She subsequently underwent a CT chest which noted bibasilar opacity suggestive of pneumonia as well as a CT A/P that noted a right staghorn calculus. She was started on vancomycin and cefepime for HCAP vs UTI. ?? Patient was additionally treated with given IV fluids but remained hypotensive. She was started on vasopressors. Per the notes patient wears 2 L nasal cannula continuously, unclear indication. She was subsequently weaned off pressors and nasal canula. Transfer to [facility] for urology consult for mgmt of staghorn calculi. ?? When seen on arrival patient endorses a headache, cough, abdominal pain, fever. She has very limitedability to provide additional details on the circumstances surrounding her presentation. PMH: Past Medical History: Diagnosis Date ??? Anxiety ??? Bipolar affective disorder (CMS-HCC) ??? Diabetes mellitus (CMS-HCC) ??? DM (diabetes mellitus screen) ??? Headache(784.0) ??? HTN (hypertension) ??? Lumbar disc disease ??? Morbid obesity (CMS-HCC) ??? Smoking ??? Static encephalopathy Current Diet: NPO Diet prior to admission: Regular diet with thin liquids per patient report however question reliability. Current Medications: Current Facility-Administered Medications Medication Dose Route Frequency Provider Last Rate Last Dose ??? acetaminophen (TYLENOL) tablet 650 mg 650 mg oral Q6H PRN Gabriele Card MD ??? aspirin chewable tablet 81 mg 81 mg oral DAILY Gabriele Card MD 81 mg at 11/02/18 1009 ??? bisacodyl (DULCOLAX) suppository 10 mg 10 mg rectal Daily PRN Gabriele Card MD ??? carbidopa-levodopa (SINEMET) 25-100 mg per tablet 1 Tab 1 Tab oral QID Gabriele Card MD 1 Tab at 11/02/18 1009 ??? cefePIME (MAXIPIME) 1,000 mg in sodium chloride (NS MBP) 50 mL IVPB 1,000 mg intravenous Q8H Gabriele Card MD 1,000 mg at 11/02/18 1007 ??? dextrose 50 % solution 12.5 g 25 mL intravenous PRN Gabriele Card MD ??? enoxaparin (LOVENOX) injection 40 mg 40 mg subcutaneous DAILY David Carrillo MD 40 mg at 11/02/18 1007 ??? glucagon injection 1 mg 1 mg intramuscular PRN Gabriele Card MD ??? insulin aspart U-100 (NOVOLOG FLEXPEN) injection subcutaneous TID WC Gabriele Card MD ??? insulin aspart U-100 (NOVOLOG FLEXPEN) injection subcutaneous QHS Gabriele Card MD ??? lamoTRIgine (LAMICTAL) tablet 50 mg 50 mg oral BID Gabriele Card MD 50 mg at 11/02/18 1008 ??? levothyroxine (SYNTHROID) tablet 100 mcg 100 mcg oral DAILY BEFORE BREAKFAST Gabriele Card MD 100 mcg at 11/02/18 0636 ??? polyethylene glycol 3350 (MIRALAX) packet 17 g 17 g oral BID Gabriele Card MD 17 g at 11/02/18 1009 ??? predniSONE (DELTASONE) tablet 50 mg 50 mg oral DAILY Gabriele Card MD 50 mg at 11/02/18 1010 ??? senna (SENOKOT) tablet 3 Tab 3 Tab oral QHS Gabriele Card MD 3 Tab at 11/02/18 0132 ??? traZODone (DESYREL) tablet 25 mg 25 mg oral QHS Gabriele Card MD ??? valproic acid (as sodium salt) (DEPAKENE) solution 500 mg 500 mg oral BID Gabriele Card MD 500 mg at 11/02/18 1007 ??? vancomycin (VANCOCIN) 750 mg in dextrose 5% (D5W) 150 mL IVPB 750 mg intravenous Q12H Gabriele Card MD 750 mg at 11/02/18 0400 Current Status: Cognitive Status: Patient was alert and cooperative during evaluation. Respiratory Status: Respiratory status was judged to be WFL to support oral feeding. Clinical Swallow Evaluation: Patient/Family: consented to completing the clinical bedside swallow exam. Oral Peripheral Motor Exam: Face: Face was symmetrical with adequate strength and range of motion. Protruded chin. Mouth closed however in constant movement. Lips: Adequate labial strength and range of motion. Tongue: Adequate lingual strength, range of motion and coordination. Velum: Unable to view during the evaluation. Dentition: Patient is edentulous. Patient states that she wants dentures however too expensive. Laryngeal Excursion: Laryngeal excursion is reduced with incomplete excursion. Speech Intelligibility: Speech with functional intelligibility. Vocal Quality: Patient presents with a clear vocal quality. Cough: Patient presents with a strong, non-productive cough. Positioning: Seen at bedside for evaluation. Head of bed positioned upright to patient's tolerance. Consistencies Tested: was assessed with ice chips, thin liquid, nectar thick liquids and puree consistencies. Methods of Delivery: All items were administered by LANGUAGE PATH using a spoon, cup and straw. Patient reports that she was fed at [facility] Right hemiparesis Oral Phase Findings: Patient presents with oral phase deficits characterized by reduced mastication,reduced bolus formation and poor oral transit prolonged holding of the bolus in the oral cavity.Pharyngeal Phase: Patient presents with pharyngeal phase deficits as suggested by delayed swallow response, reduced hyo- laryngeal excursion via palpation and signs/symptoms suggestive of laryngeal penetration/aspiration characterized by S&S coughing/choking after the swallow with thin liquids.Esophageal Phase: did not demonstrate overt esophageal concerns. Compensatory Strategies: The following compensatory swallow strategies were attempted during today'sevaluation: Diet texture manipulation, controlling size of bolus and increasing viscosity of liquids. Patient/Family Education/Training: Topic: Swallowing Patient/Family education and training was completed today including the role of Speech-Language Pathology, results of today's exam/recommendations, anatomy and physiology of the swallowing mechanism and questions were addressed. Learner: patient Method of Education: Verbal and Demonstration Barriers to Learning/Education: question patient's ability to learn/carry over information at this time Patient: needs further instruction and education Family: not present ASSESSMENT/CLINICAL IMPRESSIONS: is a 58 y.o. female admitted with calculus of kidney with calculus of ureter along with CT chest which noted bibasilar opacity suggestive of pneumonia . A clinical swallow evaluation was completed today by Speech Language Pathology secondary to concerns for oropharyngeal dysphagia, and risk of laryngeal penetration/aspiration. currently presents with a moderate oropharyngeal phase dysphagia. Patient presents with oral phase deficits characterized by reduced mastication, reduced bolus formation and poor oral transit prolonged holding of the bolus in the oral cavity. Patient presents with pharyngeal phase deficits as suggested by delayed swallow response, reduced hyo- laryngeal excursion via palpation and signs/symptoms suggestive of laryngeal penetration/aspiration characterized by S&S coughing/choking after the swallow with thin liquids. Etiology of dysphagia is unclear if dysphagia symptoms are new however may be neurogenic, history of stroke, mechanical - no dentition. remains at increased risk of aspiration at this time. Compensatory strategies of diet texture manipulation, controlling size of bolus and increasing viscosity of liquids appear effective in decreasing risk of aspiration. Prognosis for improvement in swallow function is judged to be guar ded at this time secondary to question history of dysphagia from previous stroke. Anticipate patientwill be able to meet nutritional and hydration needs on a modified diet nectar thick liquids given encouragement and assistance. Functional Communication Measures ([place] [employer]- [employer], 2002). The Functional Communication Measures (FCM???s) are a series of 7 point rating scales, ranging from least functional (Level 1) to most functional (Level 7). They have been developed by [employer] to describedifferent aspects of patient???s functional communication and swallowing abilities over the course of LANGUAGE PATH intervention. Swallowing Level 3: Alternative method of feeding required as individual takes less than 50% of nutrition and hydration by mouth, and/or swallowing is safe with consistent use of moderate cues to use compensatory strategies and/or requires maximum diet restriction. GOALS: ?? The patient will demonstrate tolerance of Dysphagia 2 Solids with Fleming-Neon thick as evidenced by adequate oral clearance and absence of overt signs and symptoms of penetration/aspiration over the course of a snack/meal. PLANS/RECOMMENDATIONS: Patient will continue to benefit for further LANGUAGE PATH intervention in this setting to address dysphagia management and intervention needs. As a result of the dysphagia evaluation, the following recommendations are provided to maximize swallow function and to minimize risk of dysphagia and its ramifications: DIET: Dysphagia 2 with NECTAR thick liquids. MEDICATIONS: Medication should be administered whole, one at a time or crushed with pureeds. FEEDING/EATING STRATEGIES: Patient needs assist with meals and self feeding. When eating, patient should be upright at 90 degrees as tolerated. Please verbally cue patient to take small bites. Please verbally cue patient to take one sip at a time. LANGUAGE PATH follow-up: LANGUAGE PATH to follow-up within 48 hours. Discharge Plan: Unknown at time of evaluation. Staci Reed MS, [facility]-LANGUAGE PATH Speech Language Pathologist Pager #[phone] (Sunday - Sunday [phone]) Pager # [phone] (Float LANGUAGE PATH Department) Marquise Keenan MD - 11/02/2018 0923 EST Medicine Progress Note Service Date: 11/02/2018 Admit Date: 11/01/2018 21:13 Reason for Admission: 58 y.o. female transferred from [facility] with pneumonia and for urology consultation regarding staghorn calculus 24 Hour Events: - admitted - Seen by urology, no acute interventions Subjective/Objective Subjective No acute events overnight, she complains of mild generalized abdominal pain with some localization to the right quadrants/flank. She also endorses a headache and constipation. She is eager to have breakfast and denies any chest pain, SOB, palpitations, dizziness/lightheadedness, nausea, vomiting, diarrhea, or headache. Past medical, social and family history reviewed and unchanged. Patient was also discussed with my partner who admitted her overnight. Review of Systems Pertinent items are noted in Subjective/HPI Objective Vital Signs Temp: [35.7 ??C (96.3 ??F)-36.2 ??C (97.2 ??F)] (), Heart Rate: [70 BPM-74 BPM] (), Resp: [11-14] (), BP: (116-123)/(58-74) (), SpO2: [93 %-96 %] ()room air Physical Exam Gen: Lying in bed in NAD, breathing comfortably on room air; difficult to understand her responses to questions sometimes HEENT: MMM, repetitive mouth movements/tremor Neck: supple, no JVD CV: RRR, no m/r/g Pulm: bibasilar crackles, no wheezes Abd: Soft, distended, right sided abdominal tenderness to palpation with mild R CVA tenderness Extrem: warm and well perfused, trace edema Pulses: 2+ in all four extremities Neuro: CN grossly intact, decreased strength RUE, bilateral low frequency UE tremor Skin: no rashes, no jaundice Lines: PIV, Femoral CVC Is PICC or central line present? Yes, it is still present. The line is no longer needed, will discontinue. Medications Reviewed: No changes Labs Reviewed: Results notable for Hb 10.9 (baseline), UA with trace blood but no WBC/leuk/nitrites. Imaging Reviewed: No new imaging. CT Chest (10/29, OSH) 1. Bilateral lower lobe consolidation, severe on the right and moderate on the left. 2. Rounded density within the right middle lobe. Differential diagnosis includes rounded pneumonia, rounded atelectasis and pulmonary neoplasm. Follow-up imaging to confirm resolution is recommended. ?? CT A/P (10/29, OSH) 1. Right nephrolithiasis with 15 mm staghorn calculus within the right renal pelvis. 2. Large fecal load within the rectum possibly fecal impaction. 3. Low density uterine mass, likely fibroid. Assessment/Plan Assessment Ginger Barrera is a 58 y.o. 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 Patient presented to the [facility] ED on 10/29 with several days of cough, fever, hypotension, and weakness, found to have bilateral lobar consolidations concerning for PNA and renal staghorn caliculus (transferred to [facility] for urology consultation). On arrival, hemodynamically stable. Plan Sepsis secondary to pneumonia - Initially presented to OSH in septic shock requiring course of pressors. Impressive consolidations on CT chest. Shorr Score: 4 (intermediate for MRSA pna). On chronic prednisone 2.5 mg daily, stress dosed at OSH with 50 mg daily. Now improved and 4 days into antibx course for HAP - Vanc 15mg/kg - Cefepime Complete 5 day course of cefepime/Vanc for HAP - Prednisone 40mg taper to FRAME TABLE OPERATOR 2.5 mg decreasing 10 mg every 2 days - Blood cx, sputum cx - Strep/legionella urine ag - f/u MRSA PCR, d/c vanc if neg ?? Staghorn calculi - Right renal pelvis, 15mm without hydronephrosis. Negative UA and no urinary symptoms, but mild right flank pain. - Urology consulted - urine culture - no acute intervention - recommended OP f/u Secondary read or non-urggent repeat CT for uterine mass per urology Fecal impaction - large fecal load noted on OSH CT. - Manual disimpaction - Dulcolax supp prn - Miralax BID - Senna 3 tabs qhs ?? Dysphagia - pt with reported dysphagia at osh. Possible aspiration pna. - LANGUAGE PATH eval Chronic problems T2DM - Not on treatment FRAME TABLE OPERATOR - SSI - A1c Hx of DISTRICT WIRE CHIEF vasculitis - requiring long-term immunosuppression w/prednisone and mycophenolate. - Steroids as above (on pred 2.5mg daily) - Hold FRAME TABLE OPERATOR mycophenolate (while actively infected) Parkinson's disease - FRAME TABLE OPERATOR carbidopa-levodopa 25-100mg QID Depression/bipolar - FRAME TABLE OPERATOR lamotrigine 50 mg BID - FRAME TABLE OPERATOR depakene 500 mg oral soln BID - FRAME TABLE OPERATOR wellbutrin 450 mg daily - FRAME TABLE OPERATOR trazodone 25 mg qhs Hypothyroidism - FRAME TABLE OPERATOR synthroid 100 mcg PO daily CAD - FRAME TABLE OPERATOR ASA 81mg daily VTE Prophylaxis Pharmacologic Prophylaxis: Enoxaparin (Lovenox) 40 mg SQ daily Discharge Plan Transfer to another facility - [facility] as there are no acute urologic interventions Consults urology David Carrillo MD 11/02/2018 9:24 ATTENDING ATTESTATION: Date of service: 11/02/2018 I have interviewed and examined the patient and discussed with the housestaff. I agree with and edited (in blue) the findings and plan of care as documented in the note above. Marquise Sanchez MD Internal Medicine Hospitalist Service 11/02/2018 12:45 documented in this encounter H&P Notes Oscar Johnston MD - 11/01/2018 2241 EST Medicine Admission History & Physical Service Date: 11/01/2018 Admit Date: 11/01/2018 21:13 Primary Care Provider: Pio Odonnell Chief Complaint: Fever, cough HPI Ginger Barrera is a 58 y.o. 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 Patient presented to an [facility] ED on 10/29 with several days of cough, fever, and weakness. Arrival to the ED patient was noted to be hypotensive, hypoxic, with cxr showing bilateral airspace opacities suggestive of pneumonia. She subsequently underwent a CT chest which noted bibasilar opacity suggestive of pneumonia as well as a CT A/P that noted a right staghorn calculus. She was started on vancomycin and cefepime for HCAP vs UTI. Patient was additionally treated with given IV fluids but remained hypotensive. She was started on vasopressors. Per the notes patient wears 2 L nasal cannula continuously, unclear indication. She was subsequently weaned off pressors and nasal canula. Transfer to [facility] for urology consult for mgmt of staghorn calculi. When seen on arrival patient endorses a headache, cough, abdominal pain, fever. She has very limitedability to provide additional details on the circumstances surrounding her presentation. Review of Systems A complete 10 point ROS was performed and pertinent positive and negative findings listed in HPI, otherwise negative. Past Medical History: Diagnosis Date ??? Anxiety ??? Bipolar affective disorder (CMS-HCC) ??? Diabetes mellitus (CMS-HCC) ??? DM (diabetes mellitus screen) ??? Headache(784.0) ??? HTN (hypertension) ??? Lumbar disc disease ??? Morbid obesity (CMS-HCC) ??? Smoking ??? Static encephalopathy Past Surgical History: Procedure Laterality Date ??? CATARACT REMOVAL WITH IMPLANT Right 06/15/2016 ??? CATARACT REMOVAL WITH IMPLANT Left 06/29/2016 ??? CERVICAL SPINE SURGERY ??? FOOT SURGERY ??? HIP SURGERY Right Patient not sure of what surgery was performed ??? LUMBAR SPINE SURGERY ??? WRIST SURGERY Social History Tobacco Use ??? Smoking status: Former Smoker Packs/day: 0.50 Years: 40.00 Pack years: 20.00 Types: Cigarettes Last attempt to quit: 11/29/2010 Years since quittin.9 ??? Smokeless tobacco: Never Used Substance Use Topics ??? Alcohol use: No Alcohol/week: 0.0 oz Comment: History of EtOH abuse Family History Problem Relation Age of Onset ??? Stroke Mother ??? Alcohol Abuse Sister ??? Alcohol Abuse Brother ??? Alcohol Abuse Father ??? Kidney Disease Neg Hx Objective Vitals Temp: [36.1 ??C (97 ??F)] (), Heart Rate: [74 BPM] (), Pulse: [74] (), Resp: [14] (), BP: (120)/(58)(), SpO2: [96 %] (), Numeric Pain Level (Scale 1-10): -- Weight: There is no height or weight on file to calculate BMI. Physical Exam GEN: Woman, appears older than stated age, obese, confused, alert to person and knows she is in a hospital but unaware of circumstances. HEENT: MMM, PERRL, edentulous LUNG: Bibasilar crackles CV: RRR, No M/R/G, No JVD ABD: Tender R abdomen EXTRM: 1+ edema SKIN: No rashes or lesions NEURO: CN II-XII intact grossly. Moving all extremities, strength and sensation equal and intact throughout Pressure Ulcer Present on admission? No Labs CBC: Recent Labs 11/01/18 2217 WBC 6.59 RBC 3.28* HGB 10.8* HCT 31.4* MCV 96 MCH 32.9 MCHC 34.4 PLT 105* BMP: Recent Labs 11/01/18 2217 NA 136 K 4.2 CL 108 CO2 22 BUN 21 CREATININE 0.42* LFT: Recent Labs 11/01/182216 TBIL <0.5 ALKPHOS 53 AST [address] Chest (10/29, OSH) 1. Bilateral lower lobe consolidation, severe on the right and moderate on the left. 2. Rounded density within the right middle lobe. Differential diagnosis includes rounded pneumonia, rounded atelectasis and pulmonary neoplasm. Follow-up imaging to confirm resolution is recommended. CT A/P (10/29, OSH) 1. Right nephrolithiasis with 15 mm staghorn calculus within the right renal pelvis. 2. Large fecal load within the rectum possibly fecal impaction. 3. Low density uterine mass, likely fibroid. Assessment Ginger Barrera is a 58 y.o. 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 Patient presented to the [facility] ED on 10/29 with several days of cough, fever, and weakness. Presentation concerning for pna, ?uti. Plan Sepsis, pna vs ?UTI - Impressive consolidation on CT chest. Kidney stone could have seeded as well. Given pt has improved with vanc, cefepime will continue both. Shorr Score: 4 (intermediate for MRSA pna). Would continue steroids for pna as well. - Vanc 15mg/kg - Cefepime - Prednisone 50mg daily - Blood cx, sputum cx - UA, urine cx - Strep/legionella urine ag - f/u MRSA PCR, d/c vanc if neg Staghorn calculi - Consult urology Dysphagia - pt with reported dysphagia at osh. ?Possible aspiration. - LANGUAGE PATH eval Stool ball - Aggressive bowel regimen T2DM - unclear history. Not on meds per transfer records - SSI - A1c Hx of DISTRICT WIRE CHIEF vasculitis - requiring long-term immunosuppression w/prednisone and mycophenolate. - Steroids as above (on pred 2.5mg daily) - Hold FRAME TABLE OPERATOR mycophenolate (while actively infected) Seizure disorder - FRAME TABLE OPERATOR lamotrigine 50mg BID - FRAME TABLE OPERATOR depakene 500mg oral soln BID ?Parkinson's disease - FRAME TABLE OPERATOR carbidopa-levodopa 25-100mg QID Depression/bipolar - curious to be on wellbutrin at such a high dose with a possible seizure disorder - Hold FRAME TABLE OPERATOR wellbutrin 450mg Hypothyroidism - FRAME TABLE OPERATOR synthroid VTE Prophylaxis: held for possible procedure Consults: urology Code Status: Full code Disposition: Pt will require at least 2 midnights for workup and mgmt of above Gabriele Card MD 11/01/2018 22:43 Attending attestation I independently interviewed and examined saw the patient on 11/01/2018 at 11PM and discussed the case and care plan with the powerhouse tender and agree with the assessment and plan as outlined above. My edits are above in bold/italics. Indra Johnston MD S Internal Medicine Hospitalist Service documented in this encounter Consult Notes Mira Burch RN - 11/04/2018 1207 EST Images from the original note were not included. 11/04: consulted to assess pressure ulcer Pt admitted with old scarring oover coccyx from previous healed wounds. She does have a small .5cm pink/purple nonblanchable stage 1 possible pressure injury on the left coccyx. Area left open to air. Recommend Offload pressure from left coccyx are much as possible. Pt is at risk for further breakdown in this area. Turn and reposition pt q2hrs Float heels off from mattress Mira Burch Pressure Ulcer Prevention Nurse Andrzej Carcamo MD - 11/02/2018 0823 EST [facility] Urologic Surgery Consult Note Admit Date: 11/01/2018 Date of Service: 11/02/2018 PCP: Poi Odonnell Requesting Attending: Germain Perez MD Specialty Completing Consult: Urologic Surgery Consulting Attending: Andrzej Johnston MD Chief Complaint: Fever, cough Reason for Consult: Urology was asked to see Ginger at the request of Germain Perez MD for evaluation of Right kidney stone. HPI: (include onset, location, quality, severity, duration, timing, associating symptoms) Ginger is a 58 y.o. female with a past medical history of T2DM, seizure disorder, bipolar disorder, DISTRICT WIRE CHIEF vasculitis with stroke who presents as a transfer from an outside hospital with fevers, cough, pneumonia and right renal calculus. Urology was consulted. The patient states that she last had kidney stones about 5 years ago and she was treated for these in [place], [place]. Since that time she has had chronic mild right flank pain. She performs intermittent catheterization for bladder drainage and she states that she has urinary tract infections frequently. She denies any new or different flank pain or any recent changes in her urinary habits. She is having some diarrhea, but otherwise feeling okay. She says has not seen a urologist since she was in [place], although records indicate she has seen both Dr. Ramirez and Dr. Peralta in the past. Past Medical History: Diagnosis Date ??? Anxiety ??? Bipolar affective disorder (CMS-HCC) ??? Diabetes mellitus (CMS-HCC) ??? DM (diabetes mellitus screen) ??? Headache(784.0) ??? HTN (hypertension) ??? Lumbar disc disease ??? Morbid obesity (CMS-HCC) ??? Smoking ??? Static encephalopathy Past Surgical History: Procedure Laterality Date ??? CATARACT REMOVAL WITH IMPLANT Right 06/15/2016 ??? CATARACT REMOVAL WITH IMPLANT Left 06/29/2016 ??? CERVICAL SPINE SURGERY ??? FOOT SURGERY ??? HIP SURGERY Right Patient not sure of what surgery was performed ??? LUMBAR SPINE SURGERY ??? WRIST SURGERY Social History Tobacco Use ??? Smoking status: Former Smoker Packs/day: 0.50 Years: 40.00 Pack years: 20.00 Types: Cigarettes Last attempt to quit: 11/29/2010 Years since quittin.9 ??? Smokeless tobacco: Never Used Substance Use Topics ??? Alcohol use: No Alcohol/week: 0.0 oz Comment: History of EtOH abuse Family History Problem Relation Age of Onset ??? Stroke Mother ??? Alcohol Abuse Sister ??? Alcohol Abuse Brother ??? Alcohol Abuse Father ??? Kidney Disease Neg Hx No current facility-administered medications on file prior to encounter. Current Outpatient Medications on File Prior to Encounter Medication Sig Dispense Refill ??? acetaminophen (TYLENOL) 325 mg tablet Take 2 Tabs by mouth every 4 hours as needed for Pain ??? acetaminophen (TYLENOL) [address] 1 Suppository rectally every 4 hours as needed for Pain ??? aspirin chewable 81 mg tablet Take 81 mg by mouth daily. ??? buPROPion (WELLBUTRIN SR) 150 mg SR tablet Take 450 mg by mouth daily. ??? carbidopa-levodopa (SINEMET) 25-100 mg per tablet Take 1 Tab by mouth 4 times daily ??? docusate sodium (COLACE) 100 mg capsule Take 100 mg by mouth 2 times daily ??? ibuprofen (MOTRIN) 400 mg tablet Take 400 mg by mouth every 6 hours as needed for Pain ??? INSULIN GLARGINE,HUM.REC.ANLOG (LANTUS SUBQ) Inject 16 Units into the skin ??? ketOROLAC tromethamine (ACULAR LS) 0.4 % drops Place 1 Drop into the left eye 4 times daily. 5 mL 1 ??? Lamotrigine 50 mg tablet extended release 24hr Take 50 mg by mouth 2 times daily ??? levothyroxine (SYNTHROID) 100 mcg tablet Take 100 mcg by mouth daily. ??? magnesium oxide (MAG-OX) 400 mg tablet Take 400 mg by mouth 2 times daily ??? Multivitamins with Minerals tablet Take 1 Tab by mouth daily ??? mycophenolate mofetil (CELLCEPT) 200 mg/mL suspension Take 0.5 mL by mouth daily. Need labs doneevery 3 months 3 Bottle 1 ??? nitroGLYCERIN (NITROSTAT) 0.[address] 0.4 mg under the tongue every 5 minutes as needed. ??? ofloxacin (OCUFLOX) 0.3 % ophthalmic solution Place 1 Drop into the right eye 4 times daily. 1 Bottle 0 ??? ondansetron (ZOFRAN) 4 mg tablet Take 8 mg by mouth every 8 hours as needed for Nausea ??? oxybutynin (DITROPAN XL) 15 mg CR tablet Take 15 mg by mouth 2 times daily ??? oxyCODONE (ROXICODONE) 5 mg immediate release tablet Take 5 mg by mouth every 4 hours as needed for Pain ??? PEG 3350-Electrolytes (MIRALAX) 17 gram packet Take 17 g by mouth daily as needed (constipation) ??? potassium chloride (KAYCIEL) 20 mEq/15 mL solution Take 20 mEq by mouth 2 times daily ??? prednisoLONE (PRED FORTE) 1 % ophthalmic suspension Place 1 Drop into the left eye 4 times daily. 1 Bottle 1 ??? predniSONE (DELTASONE) 5 mg tablet Take 2.5 mg by mouth daily. ??? senna (SENNA) 8.6 mg tablet Take 1 Tab by mouth daily as needed (constipation) ??? simvastatin (ZOCOR) 20 mg tablet Take 20 mg by mouth at bedtime ??? traZODone (DESYREL) 50 mg tablet Take 25 mg by mouth at bedtime. ??? valproic acid, as sodium salt, (DEPAKENE) 250 mg/5 mL (5 mL) solution Take 500 mg by mouth 2 times daily. Allergies Allergen Reactions ??? Darvocet A500 [Propoxyphene N-Acetaminophen] Nausea And Vomiting ??? Methadone ??? Naproxen Does not work ??? Penicillins ??? Sulfa (Sulfonamide Antibiotics) ??? Tylox [Oxycodone-Acetaminophen] itching Review of Systems: Pertinent items are noted in Subjective/HPI Objective/Physical Exam: Vital Signs: Patient Vitals for the past 8 hrs: BP Pulse Heart Rate Resp Temp SpO2 O2 Device 11/02/18 0627 116/74 74 74 BPM 14 35.7 ??C (96.3 ??F) 93 % None 11/02/18 0212 123/73 70 70 BPM 11 36.2 ??C (97.2 ??F) 95 % None Weight: Height: I and O: I&O By Type - 3 Shifts Including Current In: 480 [P.O.:480] Out: 1999 [Urine:1999] Exam: General Appearance: Awake, alert, No acute distress Skin: no obvious rashes Lungs: non labored Heart: HR 70's Abdomen: soft, somewhat distended, non-tender Extremities: warm Neuro: oriented and conversant Back: Costovertebral Angle: absent on left, minimal on right Genitourinary: lozada with clear yellow Data Review: Labs: CBC Recent Labs 11/01/18221611/02/18 0641 WBC 6.59 7.62 RBC 3.28* 3.33* HGB 10.8* 10.9* HCT 31.4* 30.7* MCV 96 92 MCHC 34.4 35.5 PLT 105* 124* NEUTROABS 5.95 -- BMP Recent Labs 11/01/18221611/02/18 0641 CREATININE 0.42* 0.40* BUN 21 17 NA 136 137 K 4.2 3.5 CL 108 106 CO2 22 23 UA 11/02: Nitrite neg Leuk esterase neg No bacteria Imaging: I have personally reviewed the CT scan performed 10/29/18 demonstrating a stone in the right renal pelvis measuring approximately 2cm x 1.5cm x 1.6cm as well as a small right lower pole kidney stone. There is no obvious hydronephrosis. No stones or hydronephrosis on the left. Mildly thickened bl adder. There is a massive stool burden in the rectum and sigmoid colon. There appears to be a uterine mass. Impression: Ginger Barrera is a 58 y.o. F with a history as above [facility], [facility], and right non-obstructing nephrolithiasis. She will require an elective right sided percutaneous nephrolithotripsy given the size of the stone.At this time she is hemodynamically stable and afebrile without any signs of distress or renal colic. Suggestions/Recommendations: -Recommend secondary read CT scan for uterine mass -Recommend disimpaction for massive stool burden based on CT scan -Recommend obtaining urine culture -Will arrange for outpatient urology follow up and discussion of elective stone treatment -Agree with antibiotics Thank you for consulting us in the care of Ginger Barrera. We will, of course, continue to keep you informed of the patient's urological care and the results of our further evaluation. Saul Mesa MD 11/02/2018 8:27 Portions of this document may have been prepared with speech recognition software or keyboard data programmer techniques. Minor irregularities or keyboarding misprints may be present. I personally saw and examined the patient with the resident and reviewed the resident's interpretation and agree with the findings documented. documented in this encounter Miscellaneous Notes Plan of Care - Carmen Valente RN - 11/04/2018 1412 EST Problem: Daily Care Plan Goals Goal: Care Plan Documentation 11/04/18 1402 Care Plan Focus Area of Focus Discharge Plan Goal This Shift Pt to return to the [facility] D: Pt alert and oriented X2. In good spirits. Eating and drinking well. Lungs clear but diminished. Cleared for discharge home. A: PIV removed. Report called to nurse, Yoly, at the [facility]. Discharge package given to the ambulancedrivers. R: Pt left via ambulance to go back to the [facility]. lan of Care - Carmen Valente RN - 11/03/2018 1815 EST Problem: Daily Care Plan Goals Goal: Care Plan Documentation 11/03/18 0832 Care Plan Focus Area of Focus Safety Goal This Shift To keep patient safe throughout the shift D: Pt at high risk of skin breakdown secondary to decreased mobility. A: Turned and repositioned pt q 1-2 hrs throughout the shift. R: Pt remained free of further injury to sking throughout my shift. To continue to T+P Q1-2hrs. lan of Care - Kassandra Cruz, XIOMARA - 11/03/2018 0459 EST Problem: Daily Care Plan Goals Goal: Care Plan Documentation Outcome: Met This Shift Data: Pt at risk for skin breakdown d/t decreased mobility and incontinence. Pt c/o of nausea this shift. Action: Administered med per MAR. Q2 hr turns. Paged about nausea- zofran ordered. Response: Pt had x2 BM this shift. Seen to be resting comfortably. Will continue to monitor. KASSANDRA CRUZ RN 11/03/2018 4:56 lan of Care - Donita Vizcaino RN - 11/02/2018 1749 EST Problem: Daily Care Plan Goals Goal: Care Plan Documentation 11/02/18 0845 Care Plan Focus Area of Focus Skin Integrity Goal This Shift Skin integrity maintained through shift Data: Pt admitted with renal calculus. Chronic lozada leaking. Healed/blanchable pressure injury on coccyx. Mobility decreased d/t stoke and generalized weakness. Action: Repositioned pt Q2 hrs. Ensured linen dry from leaking lozada. Replaced 16fr lozada with 20 fr. Urine returned. Response: Pt tolerated lozada placement. No sign of leaking around catheter at this time. Pt skin maintained through shift. Soft touch call mariano in reach. Donita Vizcaino RN 11/02/2018 17:46 lan of Care - Kassandra Cruz RN - 11/02/2018 0756 EST Problem: Daily Care Plan Goals Goal: Care Plan Documentation Outcome: Met This Shift Data: Pt admitted from [facility] d/t R renal stone. Oriented to person and place- hx of CVA. Rating 0/10 pain. Redness on buttock noted. Upon assessment lozada seen to be leaking. Action: Administered meds per MAR. Q2hr turns provided. Lozada replaced. Response: Pt seen to be resting throughout night. Lozada continued to leak- will reassess. Will continue to monitor. KASSANDRA CRUZ, RN 11/02/2018 7:52 lan of Care - Sia Barry - 11/01/2018 0705 EST Problem: CONTACT PRECAUTIONS Goal: Prevent Transmission Of Infection Patient has a history of MRSA (click on Inf: MRSA in PRISM banner for details). Please maintain contact precautions. Do not cohort at this time. Please call Infection Prevention with questions ([phone]). documented in this encounter Plan of Treatment Upcoming Encounters Date Type Specialty Care Team Description 06/13/2022 Appointment Radiology 06/13/2022 Office Visit Urology Reji Foster MD [address] [place] [address], [facility] [address] [address] [phone] (Wo rk) Scheduled Orders Name Type Priority Associated Diagnoses Order S chedule MRSA PCR Microbiology Routine One Time for 1 Occurrences starting 2018 until 11/01/2018 Scheduled Referrals Name Type Priority Associated Diagnoses Order S chedule AMB CONS/FOLLOW UP Outpatient Referral Routine Urinary tract O rdered: UROLOGY infection without 11/02/2018 hematuria, site unspecified PROVIDER FOLLOW-UP Outpatient Referral Routine Or dered: INSTRUCTIONS 11/04/2018 PROVIDER FOLLOW-UP Outpatient Referral Routine Or dered: INSTRUCTIONS 11/04/2018 REFERRAL TO SKILLED Outpatient Referral Routine HAP O rdered: NURSING FACILITY (hospital-acquired 11/04 pneumonia) [facility] renal calculus documented as of this encounter Procedures Procedure Name Priority Date/Time Associated Comments Diagnosis GLUCOSE, GLUCOMETER Routine 11/04/2018 11:52 Resu lts for this EST procedure are i n the results section. COMPLETE BLOOD COUNT Routine 11/04/2018 9:47 Resu lts for this EST procedure are i n the results section. BUN Routine 11/04/2018 9:47 Results for this EST procedure are i n the results section. CREATININE Routine 11/04/2018 9:47 Results for this EST procedure are i n the results section. ELECTROLYTES Routine 11/04/2018 9:47 Results for this EST procedure are i n the results section. GLUCOSE, GLUCOMETER Routine 11/04/2018 9:12 Resul ts for this EST procedure are i n the results section. GLUCOSE, GLUCOMETER Routine 11/03/2018 23:55 Resu lts for this EST procedure are i n the results section. GLUCOSE, GLUCOMETER Routine 11/03/2018 20:37 Resu lts for this EST procedure are i n the results section. GLUCOSE, GLUCOMETER Routine 11/03/2018 16:43 Resu lts for this EST procedure are i n the results section. GLUCOSE, GLUCOMETER Routine 11/03/2018 12:24 Resu lts for this EST procedure are i n the results section. GLUCOSE, GLUCOMETER Routine 11/03/2018 7:50 Resul ts for this EST procedure are i n the results section. COMPLETE BLOOD COUNT Routine 11/03/2018 5:38 Resu lts for this EST procedure are i n the results section. BUN Routine 11/03/2018 5:38 Results for this EST procedure are i n the results section. CREATININE Routine 11/03/2018 5:38 Results for this EST procedure are i n the results section. ELECTROLYTES Routine 11/03/2018 5:38 Results for this EST procedure are i n the results section. GLUCOSE, GLUCOMETER Routine 11/03/2018 0:15 Resul ts for this EST procedure are i n the results section. GLUCOSE, GLUCOMETER Routine 11/02/2018 22:31 Resu lts for this EST procedure are i n the results section. GLUCOSE, GLUCOMETER Routine 11/02/2018 20:38 Resu lts for this EST procedure are i n the results section. STREPTOCOCCUS Routine 11/02/2018 18:42 Results fo r this PNEUMONIAE ANTIGEN, EST procedur e are in URINE the results section. LEGIONELLA ANTIGEN Routine 11/02/2018 18:42 Resul ts for this DETECTION, URINE EST procedure a re in the results section. BACTERIAL CULTURE, Routine 11/02/2018 18:42 Resul ts for this URINE EST procedure are i n the results section. GLUCOSE, GLUCOMETER Routine 11/02/2018 16:30 Resu lts for this EST procedure are i n the results section. GLUCOSE, GLUCOMETER Routine 11/02/2018 12:37 Resu lts for this EST procedure are i n the results section. GLUCOSE, GLUCOMETER Routine 11/02/2018 10:13 Resu lts for this EST procedure are i n the results section. MRSA PCR Routine 11/02/2018 9:26 Results for this EST procedure are i n the results section. GLUCOSE, GLUCOMETER Routine 11/02/2018 8:18 Resul ts for this EST procedure are i n the results section. COMPLETE BLOOD COUNT Routine 11/02/2018 6:41 Resu lts for this EST procedure are i n the results section. BUN Routine 11/02/2018 6:41 Results for this EST procedure are i n the results section. CREATININE Routine 11/02/2018 6:41 Results for this EST procedure are i n the results section. ELECTROLYTES Routine 11/02/2018 6:41 Results for this EST procedure are i n the results section. URINE CULTURE IF Routine 11/02/2018 0:48 Results for this POSITIVE EST procedure are i n the results section. URINE CHEMICAL (DIP) & Routine 11/02/2018 0:48 Re sults for this SEDIMENT (MICRO) EST procedure a re in WITHOUT REFLEX TO the result s CULTURE section. INPATIENT ADD-ON Routine 11/02/2018 0:30 Results for this EST procedure are i n the results section. INFLUENZA A AND B,RSV Routine 11/01/2018 22:25 Re sults for this PCR EST procedure are i n the results section. BACTERIAL CULTURE, Routine 11/01/2018 22:17 Resul ts for this BLOOD EST procedure are i n the results section. BACTERIAL CULTURE, Routine 11/01/2018 22:17 Resul ts for this BLOOD EST procedure are i n the results section. COMPLETE BLOOD COUNT Routine 11/01/2018 22:17 Res ults for this AND DIFFERENTIAL EST procedure a re in the results section. BUN Routine 11/01/2018 22:17 Results for this EST procedure are i n the results section. ALT Routine 11/01/2018 22:17 Results for this EST procedure are i n the results section. AST Routine 11/01/2018 22:17 Results for this EST procedure are i n the results section. ALKALINE PHOSPHATASE Routine 11/01/2018 22:17 Res ults for this EST procedure are i n the results section. HEMOGLOBIN A1C Routine 11/01/2018 22:17 Results f or this EST procedure are i n the results section. GLUCOSE, SERUM Routine 11/01/2018 22:17 Results f or this EST procedure are i n the results section. CREATININE Routine 11/01/2018 22:17 Results for this EST procedure are i n the results section. BILIRUBIN, TOTAL Routine 11/01/2018 22:17 Results for this EST procedure are i n the results section. ELECTROLYTES Routine 11/01/2018 22:17 Results for this EST procedure are i n the results section. documented in this encounter Results (ABNORMAL) GLUCOSE, GLUCOMETER (11/04/2018 11:52 EST) Glucose, 261 (H) 70 - 100 [facility] Fingerstick mg/dl LABORATORY SERVICES Fill Technician ID [id number]: [facility] Test Performed by LABORATORY Nursing Services SERVICES Specimen Blood Performing Organization Address City/[facility] [place] Phon e Number [facility] LABORATORY [address] [place] [address] SERVICES (ABNORMAL) COMPLETE BLOOD COUNT (11/04/2018 9:47 EST) Pathologist Sig nature WBC 12.26 4.0 - 12.4 K/cmm [facility] LABORATORY SERVICES RBC 3.38 (L) 3.86 - 5.04 M/cmm [facility] LABORATORY SERVICES Hemoglobin 11.1 (L) 11.6 - 15.2 gm/dl [facility] LABORATORY SERVICES HCT 32.2 (L) 34.9 - 44.4 % [facility] LABORATORY SERVICES MCV 95 81 - 98 fl [facility] LABORATORY SERVICES MCH 32.8 26.7 - 33.3 pg [facility] LABORATORY SERVICES MCHC 34.5 32.1 - 35.9 gm/dl [facility] LABORATORY SERVICES RDW-CV 13.9 <14.7 % [facility] LABORATORY SERVICES RDW-SD 48.8 <50.4 fl [facility] LABORATORY SERVICES PLT 219 141 - 377 K/cmm [facility] LABORATORY SERVICES MPV 9.7 9.5 - 12.7 fl [facility] LABORATORY SERVICES Nucleated RBC's 1 /100 WBC'S [facility] LABORATORY SERVICES Specimen Blood specimen (specimen) - Blood Performing Organization Address City/[facility]/ZIP [facility] Phon e Number [facility] LABORATORY [address] [place] [address] SERVICES (ABNORMAL) CREATININE (11/04/2018 9:47 EST) Creatinine 0.45 (L) 0.52 - 1.04 [facility] mg/dl LABORATORY SERVICES GFR, Calculated 111 >60 [facility] Comment: ml/min/1.73m2 LABORATORY eGFR calculated using CKD-EPI equation for SERVICES non Americans. Multiply eGFR by 1.16 for Americans. Specimen Blood specimen (specimen) - Blood Performing Organization Address City/[facility]/ZIP Code Phon e Number [facility] LABORATORY [address] [place] [address] SERVICES BUN (11/04/2018 9:47 EST) Pathologist Sig nature BUN 11 10 - 26 mg/dl [facility] LABORATO RY SERVICES Specimen Blood specimen (specimen) - Blood Performing Organization Address [facility] [place] Phon e Number [facility] LABORATORY [address] [place] [address] SERVICES ELECTROLYTES (11/04/2018 9:47 EST) Pathologist Sig nature Sodium 137 136 - 145 mEq/L [facility] LABORA TORY SERVICES Potassium 4.4 3.5 - 5.0 mEq/L [facility] LABORA TORY SERVICES Chloride 102 96 - 110 mEq/L [facility] LABORAT ORY SERVICES CO2 30 22 - 32 mEq/L [facility] LABORATO RY SERVICES Specimen Blood specimen (specimen) - Blood Performing Organization Address [facility] [place] Phon e Number [facility] LABORATORY [address] [place] [address] SERVICES GLUCOSE, GLUCOMETER (11/04/2018 9:12 EST) Glucose, 95 70 - 100 [facility] Fingerstick mg/dl LABORATORY SERVICES Fill Technician ID [id number]: [facility] Test Performed by LABORATORY Nursing Services SERVICES Specimen Blood Performing Organization Address [facility]/ZIP [facility] Phon e Number [facility] LABORATORY [address] [place] [address] SERVICES (ABNORMAL) GLUCOSE, GLUCOMETER (11/03/2018 23:55 EST) Glucose, 184 (H) 70 - 100 [facility] Fingerstick mg/dl LABORATORY SERVICES Fill Technician ID [id number]: [facility] Test Performed by LABORATORY Nursing Services SERVICES Specimen Blood Performing Organization Address [facility]/ZIP [facility] Phon e Number [facility] LABORATORY [address] [place] [address] SERVICES (ABNORMAL) GLUCOSE, GLUCOMETER (11/03/2018 20:37 EST) Glucose, 275 (H) 70 - 100 [facility] Fingerstick mg/dl LABORATORY SERVICES Fill Technician ID [id number]: [facility] Test Performed by LABORATORY Nursing Services SERVICES Specimen Blood Performing Organization Address City/State/ZIP Code Phon e Number [facility] LABORATORY [address] [place] [address] SERVICES (ABNORMAL) GLUCOSE, GLUCOMETER (11/03/2018 16:43 EST) Glucose, 259 (H) 70 - 100 [facility] Fingerstick mg/dl LABORATORY SERVICES Fill Technician ID [id number]: [facility] Test Performed by LABORATORY Nursing Services SERVICES Specimen Blood Performing Organization Address City/[facility]/ZIP [facility] Phon e Number [facility] LABORATORY [address] [place] [address] SERVICES (ABNORMAL) GLUCOSE, GLUCOMETER (11/03/2018 12:24 EST) Glucose, 263 (H) 70 - 100 [facility] Fingerstick mg/dl LABORATORY SERVICES Fill Technician ID [id number]: [facility] Test Performed by LABORATORY Nursing Services SERVICES Specimen Blood Performing Organization Address City/[facility]/ZIP [facility] Phon e Number [facility] LABORATORY [address] [place] [address] SERVICES (ABNORMAL) GLUCOSE, GLUCOMETER (11/03/2018 7:50 EST) Glucose, 145 (H) 70 - 100 [facility] Fingerstick mg/dl LABORATORY SERVICES Fill Technician ID [id number]: [facility] Test Performed by LABORATORY Nursing Services SERVICES Specimen Blood Performing Organization Address City/[facility]/ZIP [facility] Phon e Number [facility] LABORATORY [address] [place] [address] SERVICES (ABNORMAL) COMPLETE BLOOD COUNT (11/03/2018 5:38 EST) Pathologist Sig nature WBC 10.03 4.0 - 12.4 K/cmm [facility] LABORATORY SERVICES RBC 3.27 (L) 3.86 - 5.04 M/cmm [facility] LABORATORY SERVICES Hemoglobin 10.7 (L) 11.6 - 15.2 gm/dl [facility] LABORATORY SERVICES HCT 30.6 (L) 34.9 - 44.4 % [facility] LABORATORY SERVICES MCV 94 81 - 98 fl [facility] LABORATORY SERVICES MCH 32.7 26.7 - 33.3 pg [facility] LABORATORY SERVICES MCHC 35.0 32.1 - 35.9 gm/dl [facility] LABORATORY SERVICES RDW-CV 13.6 <14.7 % [facility] LABORATORY SERVICES RDW-SD 47.2 <50.4 fl [facility] LABORATORY SERVICES PLT 127 (L) 141 - 377 K/cmm [facility] LABORATORY SERVICES MPV 9.8 9.5 - 12.7 fl [facility] LABORATORY SERVICES Specimen Blood specimen (specimen) - Blood Performing Organization Address City/State/ZIP Code Phon e Number [facility] LABORATORY [address] [place] [address] SERVICES (ABNORMAL) CREATININE (11/03/2018 5:38 EST) Creatinine 0.35 (L) 0.52 - 1.04 [facility] mg/dl LABORATORY SERVICES GFR, Calculated 120 >60 [facility] Comment: ml/min/1.73m2 LABORATORY eGFR calculated using CKD-EPI equation for SERVICES non Americans. Multiply eGFR by 1.16 for Americans. Specimen Blood specimen (specimen) - Blood Performing Organization Address City/[facility]/ZIP Code Phon e Number [facility] LABORATORY [address] [place] [address] SERVICES BUN (11/03/2018 5:38 EST) Pathologist Sig nature BUN 13 10 - 26 mg/dl [facility] LABORATO RY SERVICES Specimen Blood specimen (specimen) - Blood Performing Organization Address City/State/ZIP Code Phon e Number [facility] LABORATORY [address] [place] [address] SERVICES ELECTROLYTES (11/03/2018 5:38 EST) Pathologist Sig nature Sodium 136 136 - 145 mEq/L [facility] LABORA TORY SERVICES Potassium 3.6 3.5 - 5.0 mEq/L [facility] LABORA TORY SERVICES Chloride 101 96 - 110 mEq/L [facility] LABORAT ORY SERVICES CO2 29 22 - 32 mEq/L [facility] LABORATO RY SERVICES Specimen Blood specimen (specimen) - Blood Performing Organization Address City/State/ZIP Code Phon e Number [facility] LABORATORY [address] [place] [address] SERVICES (ABNORMAL) GLUCOSE, GLUCOMETER (11/03/2018 0:15 EST) Glucose, 209 (H) 70 - 100 [facility] Fingerstick mg/dl LABORATORY SERVICES Fill Technician ID [id number]: [facility] Test Performed by LABORATORY Nursing Services SERVICES Specimen Blood Performing Organization Address City/State/ZIP Code Phon e Number [facility] LABORATORY [address] [place] [address] SERVICES (ABNORMAL) GLUCOSE, GLUCOMETER (11/02/2018 22:31 EST) Glucose, 265 (H) 70 - 100 [facility] Fingerstick mg/dl LABORATORY SERVICES Fill Technician ID [id number]: [facility] Test Performed by LABORATORY Nursing Services SERVICES Specimen Blood Performing Organization Address City/[facility]/ZIP Code Phon e Number [facility] LABORATORY [address] [phone] SERVICES (ABNORMAL) GLUCOSE, GLUCOMETER (11/02/2018 20:38 EST) Glucose, 263 (H) 70 - 100 [facility] Fingerstick mg/dl LABORATORY SERVICES Fill Technician ID [id number]: [facility] Test Performed by LABORATORY Nursing Services SERVICES Specimen Blood Performing Organization Address City/State/ZIP Code Phon e Number [facility] LABORATORY [address] [place] [address] SERVICES BACTERIAL CULTURE, URINE (11/02/2018 18:42 EST) Pathologist Sig nature Result No growth [facility] LABORATOR Y SERVICES Specimen Urine (substance) - Urine Performing Organization Address City/[facility]/ZIP Code Phon e Number [facility] LABORATORY [address] [place] [address] SERVICES LEGIONELLA ANTIGEN DETECTION, URINE (11/02/2018 18:42 EST) Pathologist Sig nature Result No Legionella [facility] pneumophila serogroup LABORATORY SERVICES 1 antigen detected. Specimen Other (qualifier value) - Urine Performing Organization Address City/[facility]/ZIP Code Phon e Number [facility] LABORATORY [address] [place] [address] SERVICES STREPTOCOCCUS PNEUMONIAE ANTIGEN, URINE (11/02/2018 18:42 EST) Pathologist Sig nature Result STREP PNEUMONIAE [facility] antigen detected. LABORATORY SERVICES Specimen Other (qualifier value) - Urine Performing Organization Address City/[facility]/ZIP Code Phon e Number [facility] LABORATORY [address] [place] [address] SERVICES (ABNORMAL) GLUCOSE, GLUCOMETER (11/02/2018 16:30 EST) Glucose, 215 (H) 70 - 100 [facility] Fingerstick mg/dl LABORATORY SERVICES Fill Technician ID [id number]: [facility] Test Performed by LABORATORY Nursing Services SERVICES Specimen Blood Performing Organization Address City/[facility]/ZIP Code Phon e Number [facility] LABORATORY [address] [place] [address] SERVICES (ABNORMAL) GLUCOSE, GLUCOMETER (11/02/2018 12:37 EST) Glucose, 278 (H) 70 - 100 [facility] Fingerstick mg/dl LABORATORY SERVICES Fill Technician ID [id number]: [facility] Test Performed by LABORATORY Nursing Services SERVICES Specimen Blood Performing Organization Address [facility] [place] Phon e Number [facility] LABORATORY [address] [place] [address] SERVICES (ABNORMAL) GLUCOSE, GLUCOMETER (11/02/2018 10:13 EST) Glucose, 110 (H) 70 - 100 [facility] Fingerstick mg/dl LABORATORY SERVICES Fill Technician ID [id number]: [facility] Test Performed by LABORATORY Nursing Services SERVICES Specimen Blood Performing Organization Address City/State/ZIP Code Phon e Number [facility] LABORATORY [address] [place] [address] SERVICES MRSA PCR (11/02/2018 9:26 EST) Pathologist Sig nature Result No Staphylococcus aureus [facility] detected by PCR. LABORATORY SERVICES Specimen Nasal Performing Organization Address City/[facility]/ZIP [facility] Phon e Number [facility] LABORATORY [address] [place] [address] SERVICES (ABNORMAL) GLUCOSE, GLUCOMETER (11/02/2018 8:18 EST) Glucose, 102 (H) 70 - 100 [facility] Fingerstick mg/dl LABORATORY SERVICES Fill Technician ID [id number]: [facility] Test Performed by LABORATORY Nursing Services SERVICES Specimen Blood Performing Organization Address City/[facility]/ZIP Code Phon e Number [facility] LABORATORY [address] [place] [address] SERVICES (ABNORMAL) COMPLETE BLOOD COUNT (11/02/2018 6:41 EST) Pathologist Sig nature WBC 7.62 4.0 - 12.4 K/cmm [facility] LABORATORY SERVICES RBC 3.33 (L) 3.86 - 5.04 [facility] Hemoglobin 10.9 (L) 11.6 - 15.2 gm/dl [facility] LABORATORY SERVICES HCT 30.7 (L) 34.9 - 44.4 % [facility] LABORATORY SERVICES MCV 92 81 - 98 fl [facility] LABORATORY SERVICES MCH 32.7 26.7 - 33.3 pg [facility] LABORATORY SERVICES MCHC 35.5 32.1 - 35.9 gm/dl [facility] LABORATORY SERVICES RDW-CV 14.2 <14.7 % [facility] LABORATORY SERVICES RDW-SD 47.9 <50.4 fl [facility] LABORATORY SERVICES PLT 124 (L) 141 - 377 K/[facility] LABORATORY SERVICES MPV 10.1 9.5 - 12.7 fl [facility] LABORATORY SERVICES Specimen Blood specimen (specimen) - Blood Performing Organization Address City/[facility]/ZIP Code Phon e Number [facility] LABORATORY [address] [place] [address] SERVICES (ABNORMAL) CREATININE (11/02/2018 6:41 EST) Creatinine 0.40 (L) 0.52 - 1.04 [facility] mg/dl LABORATORY SERVICES GFR, Calculated 115 >60 [facility] Comment: ml/min/1.73m2 LABORATORY eGFR calculated using CKD-EPI equation for SERVICES non Americans. Multiply eGFR by 1.16 for Americans. Specimen Blood specimen (specimen) - Blood Performing Organization Address City/[facility]/ZIP Code Phon e Number [facility] LABORATORY [address] [place] [address] SERVICES BUN (11/02/2018 6:41 EST) Pathologist Sig nature BUN 17 10 - 26 mg/dl [facility] LABORATO RY SERVICES Specimen Blood specimen (specimen) - Blood Performing Organization Address City/State/ZIP Code Phon e Number [facility] LABORATORY [address] [place] [address] SERVICES ELECTROLYTES (11/02/2018 6:41 EST) Pathologist Sig nature Sodium 137 136 - 145 mEq/L [facility] LABORA TORY SERVICES Potassium 3.5 3.5 - 5.0 mEq/L [facility] LABORA TORY SERVICES Chloride 106 96 - 110 mEq/L [facility] LABORAT ORY SERVICES CO2 23 22 - 32 mEq/L [facility] LABORATO RY SERVICES Specimen Blood specimen (specimen) - Blood Performing Organization Address City/State/ZIP Code Phon e Number [facility] LABORATORY [address] [place] [address] SERVICES URINE CULTURE IF UA POSITIVE - NON POCT URINALYSIS ONLY (11/02/2018 0:48 EST) Culture if Culture not [facility] Indicated indicated by LABORATORY SERVICES urinalysis results. Specimen Urine (substance) - Other Performing Organization Address City/State/ZIP Code Phon e Number [facility] LABORATORY [address] [place] [address] SERVICES (ABNORMAL) UA, CHEMICAL AND SEDIMENT ANALYSIS (DIPSTICK AND MICROSCOPIC) (11/02/2018 0:48 EST) Color, UA Colorless [facility] LABORATORY SERVICES Clarity, UA Clear [facility] LABORATORY SERVICES Glucose, UA 1+ (A) Neg [facility] LABORATORY SERVICES Bilirubin, UA Neg Neg [facility] LABORATORY SERVICES Ketones, UA Neg Neg [facility] LABORATORY SERVICES Refractometer 1.009 1.001 - 1.035 [facility] SG,Urine [facility] SERVICES Blood, UA 1+ (A) Neg [facility] LABORATORY SERVICES pH, UA 6.5 4.6 - 8.0 [facility] LABORATORY SERVICES Protein, UA Trace (A) Neg [facility] LABORATORY SERVICES Urobilinogen, UA Normal Normal [facility] E.U./dl [facility] SERVICES Nitrite, UA Neg Neg [facility] LABORATORY SERVICES Leuk Esterase Neg Neg [facility] LABORATORY SERVICES UA Method Used [facility] Comment: [facility] LAB[facility]ORY Testing performed using SERVICES Proper Cloth AU-4050. Urine RBC Count 11 to 50 (A) 0 to 2 /HPF [facility] Automated [facility] SERVICES Urine WBC Count 0 to 3 0 to 3 /HPF [facility] Automated [facility] LABORATORY SERVICES Urine Squamous Few (A) None seen [facility] Epithelial Cell /LPF [facility] Count, Automated SERVICES Urine Hyaline Casts, < or = 10 < or = 10 [facility] Automated /LPF [facility] SERVICES Urine Bacteria None seen None seen [facility] Count, Automated [facility] SERVICES UA Comment Sediment results [facility] Comment: [facility] LABORATORY are unreliable on SERVICES urines unrefrig >2hrs or refrig >8hrs. Specimen Urine (substance) - Urine Performing Organization Address City/[facility]/ZIP Code Phon e Number [facility] LABORATORY [address] [place] [address] SERVICES INPATIENT ADD-ON (11/02/2018 0:30 EST) Pathologist Sig nature Tests to be added GLUCOSE, SERUM [facility] LABORATORY SERVICES Number for problems Not Given [facility] LABORATORY SERVICES Accession number [id number] [facility] LABORATORY SERVICES Specimen Other Performing Organization Address City/[facility] Phon e Number [facility] LABORATORY [address] [place] [phone] SERVICES INPATIENT/OUTPATIENT INFLUENZA, RSV PCR (11/01/2018 22:25 EST) Pathologist Sig nature Flu A RNA Result Negative [facility] LABORATORY SERVICES Flu B RNA Result Negative [facility] LABORATORY SERVICES RSV RNA Result Negative [facility] LABORATORY SERVICES Specimen Other (qualifier value) - Other Performing Organization Address [facility]/ZIP [facility] Phon e Number [facility] LABORATORY [address] [place] [address] SERVICES (ABNORMAL) GLUCOSE, SERUM (11/01/2018 22:17 EST) Glucose, Serum 285 (H) 70 - 100 mg/dl [facility] Comment: LABORATORY SERVICES Slight hemolysis Results may be affected due to hemolysis. Specimen Blood Performing Organization Address [facility] Phon e Number [facility] LABORATORY [address] [place] [phone] SERVICES (ABNORMAL) CREATININE (11/01/2018 22:17 EST) Creatinine 0.42 (L)Comment: 0.52 - 1.04 [facility] Slight hemolysis mg/dl LABORATORY SERVICES GFR, Calculated 113 >60 [facility] Comment: ml/min/1.73m2 LABORATORY eGFR calculated using CKD-EPI equation for SERVICES non Americans. Multiply eGFR by 1.16 for Americans. Specimen Blood specimen (specimen) - Blood Performing Organization Address City/[facility]/ZIP [facility] Phon e Number [facility] LABORATORY [address] [place] [phone] SERVICES BUN (11/01/2018 22:17 EST) Pathologist Sig nature BUN 21 10 - 26 mg/dl [facility] Comment: LABORATORY SERVICES Slight hemolysis Results may be affected due to hemolysis. Specimen Blood specimen (specimen) - Blood Performing Organization Address City/[facility]/ZIP Code Phon e Number [facility] LABORATORY [address] [place] [phone] SERVICES ELECTROLYTES (11/01/2018 22:17 EST) Pathologist Sig nature Sodium 136Comment: Slight 136 - 145 mEq/L [facility] hemolysis LABORATORY SERVICES Potassium 4.2 3.5 - 5.0 mEq/L [facility] Comment: LABORATORY SERVICES Slight hemolysis Hemolysis may elevate potassium result. Chloride 108Comment: Slight 96 - 110 mEq/L [facility] hemolysis LABORATORY SERVICES CO2 22Comment: Slight 22 - 32 mEq/L [facility] hemolysis LABORATORY SERVICES Specimen Blood specimen (specimen) - Blood Performing Organization Address [facility]/ZIP [facility] Phon e Number [facility] LABORATORY [address] [place] [address] SERVICES BACTERIAL CULTURE, BLOOD (11/01/2018 22:17 EST) Pathologist Sig nature Result No growth [facility] LABORATOR Y SERVICES Specimen Blood specimen (specimen) - Blood Performing Organization Address [facility]/ZIP [facility] Phon e Number [facility] LABORATORY [address] [place] [address] SERVICES BACTERIAL CULTURE, BLOOD (11/01/2018 22:17 EST) Pathologist Sig nature Result No growth [facility] LABORATOR Y SERVICES Specimen Blood specimen (specimen) - Blood Performing Organization Address [facility] Phon e Number [facility] LABORATORY [address] [place] [address] SERVICES (ABNORMAL) COMPLETE BLOOD COUNT AND DIFFERENTIAL (11/01/2018 22:17 EST) Pathologist Sig nature WBC 6.59 4.0 - 12.4 K/cmm [facility] LABORATORY SERVICES RBC 3.28 (L) 3.86 - 5.04 [facility] M/[facility] LABORATORY SERVICES Hemoglobin 10.8 (L) 11.6 - 15.2 [facility] gm/dl LABORATORY SERVICES HCT 31.4 (L) 34.9 - 44.4 % [facility] LABORATORY SERVICES MCV 96 81 - 98 fl [facility] LABORATORY SERVICES MCH 32.9 26.7 - 33.3 pg [facility] LABORATORY SERVICES MCHC 34.4 32.1 - 35.9 [facility] gm/dl LABORATORY SERVICES RDW-CV 14.5 <14.7 % [facility] LABORATORY SERVICES RDW-SD 50.9 (H) <50.4 fl [facility] LABORATORY SERVICES PLT 105 (L) 141 - 377 K/cmm [facility] LABORATORY SERVICES MPV 10.1 9.5 - 12.7 fl [facility] LABORATORY SERVICES Neutrophils 90.3 % [facility] LABORATORY SERVICES Bands 1.8 % [facility] LABORATORY SERVICES Lymphocytes 4.4 % [facility] LABORATORY SERVICES Monocytes 1.7 % [facility] LABORATORY SERVICES Metamyelocytes 0.9 % [facility] LABORATORY SERVICES Atyp Lymphs 0.9 % [facility] LABORATORY SERVICES ABS Neutrophils 5.95 2.20 - 8.85 [facility] K/[facility] LABORATORY SERVICES ABS Bands 0.12 K/cmm [facility] LABORATORY SERVICES ABS Lymphs 0.29 (L) 1.09 - 3.30 [facility] K/[facility] LABORATORY SERVICES ABS Monocytes 0.11 0.1 - 0.8 [facility] ABS Metamyelocytes 0.06 K/cmm [facility] LABORATORY SERVICES ABS Atyp Lymphs 0.06 K/cmm [facility] LABORATORY SERVICES Toxic Granulation Present [facility] LABORATORY SERVICES Vacuolization Present [facility] LABORATORY SERVICES Type of Diff: Manual [facility] LABORATORY SERVICES Specimen Blood specimen (specimen) - Blood Performing Organization Address [facility]/ZIP Code Phon e Number [facility] LABORATORY [address] [place] [address] SERVICES BILIRUBIN, TOTAL (11/01/2018 22:17 EST) Bilirubin, Total <0.5 <1.4 mg/dl [facility] Comment: LABORATORY SERVICES Slight hemolysis Results may be affected due to hemolysis. Specimen Blood specimen (specimen) - Blood Performing Organization Address City/State/ZIP Code Phon e Number [facility] LABORATORY [address] [place] [address] SERVICES ALKALINE PHOSPHATASE (11/01/2018 22:17 EST) Total Alkaline 53 38 - 126 U/L [facility] Phosphatase Comment: [facility] LAB[facility]ATORY Slight hemolysis SERVICES Hemolysis will decrease ALKP result Suggest re-evaluation if clinically indicated Specimen Blood specimen (specimen) - Blood Performing Organization Address City/[facility]/ZIP Code Phon e Number [facility] LABORATORY [address] [place] [address] SERVICES AST (11/01/2018 22:17 EST) Pathologist Sig nature AST 36 15 - 46 U/L [facility] Comment: LABORATORY SERVICES Slight hemolysis Results may be affected due to hemolysis. Specimen Blood specimen (specimen) - Blood Performing Organization Address City/[facility]/ZIP Code Phon e Number [facility] LABORATORY [address] [place] [address] SERVICES ALT (11/01/2018 22:17 EST) Pathologist Sig nature ALT 14 <53 U/L [facility] Comment: LABORATORY SERVICES Slight hemolysis Results may be affected due to hemolysis. Specimen Blood specimen (specimen) - Blood Performing Organization Address City/[facility]/ZIP Code Phon e Number [facility] LABORATORY [address] [place] [address] SERVICES HEMOGLOBIN A1C (11/01/2018 22:17 EST) Hemoglobin A1C 5.7 % [facility] Comment: LABORATORY SERVICES Reference Range: <5.7% Normal 5.7-6.4% Prediabetes =>6.5% Diagnostic for diabetes (if confirmed) Goals for glycemic control in diabetes ADA 2017 For non adults with diabetes: ?? Target <7.0% For children and adolescents with type 1 diabetes: ?? Target <7.5% More or less stringent targets may be appropriate for individual patients. Est Avg Glucose 117 mg/dl [facility] Comment: LABORATORY SERVICES eAG represents the A1c result expressed as average glucose in mg/dl. Specimen Blood specimen (specimen) - Blood Performing Organization Address City/[facility] Phon e Number [facility] LABORATORY [address] [place] [address] SERVICES documented in this encounter Visit Diagnoses Diagnosis Staghorn calculus - Primary Calculus of kidney Urinary tract infection without hematuri a, site unspecified HAP (hospital-acquired pneumonia) Pneumonia, organism unspecified Sepsis, due to unspecified organism Staghorn renal calculus Calculus of kidney Fecal impaction ([facility]) ([facility]) Dysphagia, unspecified type Type 2 diabetes mellitus without complic ation, without long-term current use of insulin ([facility]) ([facility]) Parkinson's disease ([facility]) ([facility]) 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[facility]) Arteritis, unspecified Uterine mass Other specified symptom associated with female genital organs MRSA pneumonia (HCC) Methicillin resistant pneumonia due to S taphylococcus aureus Pneumonia due to infectious organism documented in this encounter Administered Medications Inactive Administered Medications - up to 3 most recent administrations Medication Order MAR Action Action Date Dose Rate Site acetaminophen (TYLENOL) tablet 650 mg Given 11/04/2018 6:04 EST 650 mg 650 mg, oral, EVERY 6 HOURS PRN, Starting on Sun11/01/18 at 2148, Until 11/04/18 at 1613, Pain, Fever, Routine Given 11/03/2018 18:43 EST 650 mg aspirin chewable tablet 81 mg Given 11/04/2018 9:04 EST 81 mg 81 mg, oral, DAILY, First dose on 11/02/18 at 0900, Until Discontinued, Routine Given 11/03/2018 8:17 EST 81 mg Given 11/02/2018 10:09 EST 81 mg bisacodyl (DULCOLAX) suppository 10 mg Given 11/02/2018 16:13 EST 10 mg 10 mg, rectal, DAILY PRN, Starting on Sun11/02/18 at 0024, Until Sun11/04/18 at 1613, Constipation, Routine buPROPion (WELLBUTRIN XL) XL tablet 450 mg Given 11/04/2018 9:02 EST 450 mg 450 mg, oral, DAILY, First dose on 11/02/18 at 1245, Until Discontinued, Routine Given 11/03/2018 8:17 EST 450 mg Given 11/02/2018 12:47 EST 450 mg carbidopa-levodopa (SINEMET) 25-100 mg per Given 11/04/2018 11:5 4 EST 1 Tablet tablet 1 Tab 1 Tablet, oral, 4 TIMES DAILY, First dose on 11/02/18 at 0800, Until Discontinued, Routine Given 11/04/2018 9:03 EST 1 Tablet Given 11/03/2018 20:28 EST 1 Tablet cefePIME (MAXIPIME) 1,000 mg in sodium Given 11/04/2018 0:05 EST 1,000 mg chloride (NS MBP) 50 mL IVPB 1,000 mg, intravenous, Administer over 30 Minutes, EVERY 8 HOURS, 7 doses, First dose on 11/02/18 at 0145, Last dose on Sun11/04/18 at 0000, Controlled antibiotic, has ID approved? No: After 10pm, Before 8am, Routine Given 11/03/2018 16:22 EST 1,000 mg Given 11/03/2018 8:17 EST 1,000 mg dextrose 50 % solution 12.5 g 12.5 g (25 mL), intravenous, PRN, Starti ng on 11/02/18 at 0503, Until Sun11/04/18 at 1613, Low Blood Sugar, Routine enoxaparin (LOVENOX) injection 40 mg Given 11/04/2018 9:02 EST 40 mg 40 mg, subcutaneous, DAILY, First dose on 11/02/18 at 1015, Until Discontinued, Routine Given 11/03/2018 8:16 EST 40 mg Abdomina l Tissue Given 11/02/2018 10:07 EST 40 mg glucagon injection 1 mg 1 mg, intramuscular, PRN, Starting on 11/02/18 at 05 03, Until Sun11/04/18 at 1613, Low blood sugar, Routine ibuprofen (MOTRIN) tablet 400 mg Given 11/04/2018 9:17 EST 400 mg 400 mg, oral, EVERY 8 HOURS PRN, Starting on Sun11/04/18 at 0004, Until Sun11/04/18 at 1613, Pain, Routine Given 11/04/2018 0:32 EST 400 mg insulin aspart U-100 (NOVOLOG FLEXPEN) Given 11/04/2018 11:53 ES T 7 Units injection subcutaneous, 3 TIMES DAILY WITH MEALS, First dose on 11/02/18 at 0800, Until Discontinued, Routine Given 11/03/2018 17:25 EST 7 Units Given 11/03/2018 13:05 EST 7 Units insulin aspart U-100 (NOVOLOG FLEXPEN) Given 11/03/2018 21:25 ES T 5 Units injection subcutaneous, AT BEDTIME, First dose on 11/02/18 at 2100, Until Discontinued, Routine Given 11/02/2018 22:35 EST 5 Units lamoTRIgine (LAMICTAL) tablet 50 mg Given 11/04/2018 9:04 EST 50 mg 50 mg, oral, 2 TIMES DAILY, First dose on 11/02/18 at 0100, Until Discontinued Given 11/03/2018 20:28 EST 50 mg Given 11/03/2018 8:16 EST 50 mg levothyroxine (SYNTHROID) tablet 100 mcg Given 11/04/2018 6:04 EST 100 mcg 100 mcg, oral, DAILY BEFORE BREAKFAST, First dose on 11/02/18 at 0700, Until Discontinued, Routine Given 11/03/2018 6:45 EST 100 mcg Given 11/02/2018 6:36 EST 100 mcg mycophenolate mofetil (CELLCEPT) suspension 100 Given 11/04/2018 10:04 EST 100 mg mg 100 mg, oral, DAILY, First dose on 11/04/18 at 0930, Until Discontinued, Routine ondansetron (PF) (ZOFRAN) injection 4 mg Given 11/02/2018 23:07 EST 4 mg 4 mg, intravenous, EVERY 4 HOURS PRN, Starting on 11/02/18 at 2228, Until 11/04/18 at 1613, Nausea, Routine polyethylene glycol 3350 (MIRALAX) packe t 17 g Given 11/03/2018 8:30 EST 17 g 17 g, oral, 2 TIMES DAILY, First dose on 11/02/18 at 0900, Until Discontinued, Routine Given 11/02/2018 22:04 EST 17 g Given 11/02/2018 10:09 EST 17 g predniSONE (DELTASONE) tablet 10 mg 10 mg, oral, DAILY, 2 doses, First dose on 11/09/18 at 0900, Last dose on 11/10/18 at 0900, Routine predniSONE (DELTASONE) tablet 2.5 mg 2.5 mg, oral, DAILY, First dose on Mon at 0900, Until Discontinued, Routine predniSONE (DELTASONE) tablet 20 mg 20 mg, oral, DAILY, 2 doses, First dose on Maria Eugenia 11/07/18 at 0900, Last dose on Sun11/08/18 at 0900, Routine predniSONE (DELTASONE) tablet 30 mg 30 mg, oral, DAILY, 2 doses, First dose on Tu11/05/18 at 0900, Last dose on Sun11/06/18 at 0900, Routine predniSONE (DELTASONE) tablet 40 mg Given 11/04/2018 9:03 EST 40 mg 40 mg, oral, DAILY, 2 doses, First dose (after last modification) on 11/03/18 at 0900, Last dose on 11/04/18 at 0900, Routine Given 11/03/2018 8:17 EST 40 mg predniSONE (DELTASONE) tablet 50 mg Given 11/02/2018 10:10 EST 50 mg 50 mg, oral, DAILY, First dose on 11/02/18 at 0900, Until Discontinued, Routine senna (SENOKOT) tablet 3 Tab Given 11/03/2018 20:28 EST 3 Tablets 3 Tablet, oral, AT BEDTIME, First dose on 11/02/18 at 0045, Until Discontinued, Routine Given 11/02/2018 22:01 EST 3 Tablets Given 11/02/2018 1:32 EST 3 Tablets traZODone (DESYREL) tablet 25 mg Given 11/03/2018 20:28 EST 25 mg 25 mg, oral, AT BEDTIME, First dose on 11/02/18 at 0100, Until Discontinued, Routine Given 11/02/2018 22:01 EST 50 mg valproic acid (as sodium salt) (DEPAKENE) Given 11/02/2018 10:07 EST 500 mg solution 500 mg 500 mg, oral, 2 TIMES DAILY, First dose on 11/02/18 at 0100, Until Discontinued, Routine Given 11/02/2018 1:32 EST 500 mg valproic acid (DEPAKENE) capsule 500 mg Given 11/04/2018 9:02 EST 500 mg 500 mg, oral, 2 TIMES DAILY, First dose on 11/03/18 at 0945, Until Discontinued, Routine Given 11/03/2018 20:28 EST 500 mg Given 11/03/2018 10:33 EST 500 mg vancomycin (VANCOCIN) 750 mg in dextrose 5% Given 11/02/2018 4:0 0 EST 750 mg (D5W) 150 mL IVPB 750 mg, intravenous, Administer over 60 Minutes, EVERY 12 HOURS, 14 doses, First dose on Sun11/02/18 at 0315, Last dose on Sun11/08/18 at 1515, Routine vancomycin (VANCOCIN) IVPB 1,000 mg Given 11/03/2018 17:24 EST 1,000 mg 1,000 mg, intravenous, Administer over 60 Minutes, EVERY 12 HOURS, 3 doses, First dose (after last modification) on 11/02/18 at 1600, Last dose on 11/03/18 at 1600, Routine Given 11/03/2018 4:46 EST 1,000 mg Given 11/02/2018 16:56 EST 1,000 mg documented in this encounter Discontinued Medications Medication Sig Discontinue Reason Start Date End Date aripiprazole (ABILIFY) Take 30 mg by mouth 03/31/2011 11/01/2018 15 mg tablet at bedtime. traMADol (ULTRAM) 50 mg Take 50 mg by mouth 11/01/2018 tablet every 6 hours as needed for Pain zolpidem (AMBIEN) 5 mg Take 5 mg by mouth 11/01/2018 tablet at bedtime as needed for Sleep divalproex (DEPAKOTE Take 125 mg by mouth 2 times daily 11/01/2018 SPRINKLES) 125 mg capsule acetaminophen (TYLENOL) Take 2 Tabs by mouth Therapy completed 02/201511/02/2018 325 mg tablet every 4 hours as needed for Pain acetaminophen (TYLENOL) Place 1 Suppository Therapy completed 07/3011/02/2018 650 mg suppository rectally every 4 hours as needed for Pain docusate sodium Take 100 mg by mouth 2 times daily Therapy complete d 03/31/2011 11/02/2018 (COLACE) 100 mg capsule ibuprofen (MOTRIN) 400 Take 400 mg by mouth Therapy completed 11/02/2018 mg tablet every 6 hours as needed for Pain INSULIN Inject 16 Units into the skin Therapy completed 201411/02/2018 GLARGINE,HUM.REC.ANLOG (LANTUS SUBQ) ketOROLAC tromethamine Place 1 Drop into Therapy completed 06/16/20 16 11/02/2018 (ACULAR LS) 0.4 % the left eye 4 times dropsIndications: daily. Senile nuclear sclerosis, left magnesium oxide Take 400 mg by mouth Therapy completed 11/02/2018 (MAG-OX) 400 mg tablet 2 times daily nitro[address] Place 0.4 mg under Therapy completed 05/2019 (NITROSTAT) 0.4 mg SL the tongue every 5 tablet minutes as needed. ofloxacin (OCUFLOX) 0.3 Place 1 Drop into Therapy completed 016 11/02/2018 % ophthalmic the right eye 4 solutionIndications: times daily. Senile nuclear sclerosis, right ondansetron (ZOFRAN) 4 Take 8 mg by mouth Therapy completed 11/02/2018 mg tablet every 8 hours as needed for Nausea oxybutynin (DITROPAN Take 15 mg by mouth Therapy completed 11/02/2018 XL) 15 mg CR tablet 2 times daily oxyCODONE (ROXICODONE) Take 5 mg by mouth Therapy completed 11/02/2018 5 mg immediate release every 4 hours as tablet needed for Pain PEG 3350-Electrolytes Take 17 g by mouth Therapy completed 11/02/2018 (MIRALAX) 17 gram daily as needed packet (constipation) potassium chloride Take 20 mEq by mouth Therapy completed 11/02/2018 (KAYCIEL) 20 mEq/15 mL 2 times daily solution prednisoLONE (PRED Place 1 Drop into Therapy completed 06/16/2016 11/02/2018 FORTE) 1 % ophthalmic the left eye 4 times suspensionIndications: daily. Senile nuclear sclerosis, left senna (SENNA) 8.6 mg Take 1 Tab by mouth daily as needed (co nstipation) Therapy completed 03/31/2011 11/02/2018 tablet simvastatin (ZOCOR) 20 Take 20 mg by mouth at bedtime Patient Stopp ed 11/02/2018 mg tablet Taking predniSONE (DELTASONE) Take 2.5 mg by mouth Reorder 11/04/2018 5 mg tablet daily. documented as of this encounter Historical Medications This list may reflect changes made after this encounter. Medication Sig Dispensed Refills Start Date End Date aspirin chewable 81 mg Take 81 mg by mouth 0 tablet daily. predniSONE (DELTASONE) 5 Take 0.5 Tabs by 30 Tab 0 11/1304/20/2021 mg tablet mouth daily. predniSONE (DELTASONE) 10 Take 1 Tab by mouth 2 Tab 0 0 11/09/2018 12/05/2018 mg tablet daily. 10 mg daily 11/09 and 11/10 predniSONE (DELTASONE) 20 Take 1 Tab by mouth 2 Tab 0 0 11/07/2018 12/05/2018 mg tablet daily. 20 mg daily 11/07 and 11/08 predniSONE (DELTASONE) 10 Take 3 Tabs by mouth 6 Tab 0 11/05/2018 12/05/2018 mg tablet daily. 30 mg daily 11/05 and 11/06 valproic acid, as sodium Take 500 mg by mouth 0 04/20/2021 salt, (DEPAKENE) 250 mg/5 2 times daily. mL (5 mL) solution added in this encounter Active and Recently Administered Medications Times are shown in EST. Scheduled Medication Order 11/02/2018 11/03/2018 11/04/2018 aspirin chewable tablet 81 mg 1000 (Given - Provider: David Vizcaino RN) 0817 (Given - Provider: Carmen Valente RN) 0904 (Given - Provider: Carmen Valente, XIOMARA) 81 mg, oral, DAILY, First dose on 11/02/18 at 0900, Until Discontinued, Routine buPROPion (WELLBUTRIN XL) XL tablet 450 mg 1247 (Given - Provider: Donita Vizcaino RN) 0817 (Given - Provider: Carmen Valente, XIOMARA) 0902 (Gi jose - Provider: Carmen Valente RN) 450 mg, oral, DAILY, First dose on Sat at 1245, Until Discontinued, Routine carbidopa-levodopa (SINEMET) 25-100 mg per tablet 1 Ta b 1009 (Given - Provider: Donita Vizcaino RN)1230 (Given - Provider: Donita Vizcaino RN)1613 (Given - Provider: Donita Vizcaino RN)2201 (Given - Provider: Kassandra Cruz RN) 0817 (Given - Provider: Carmen Valente RN)1306 (Given - Provider: Carmen Valente, XIOMARA)1724 (Given - Provider: Carmen Valente, XIOMARA)2028 (Given - Provider: April Bonner, XIOMARA) 0903 (Given - Provider: Carmen Valente , XIOMARA)1154 (Given - Provider: Carmen Valente, XIOMARA) 1 Tab, oral, 4 TIMES DAILY, First dose o n 11/02/18 at 0800, Until Discontinued, Routine cefePIME (MAXIPIME) 1,000 mg in sodium chloride (NS MB P) 50 mL IVPB (COMPLETED) 0205 (Given - Provider: Kassandra Cruz, XIOMARA)1007 (Given - Provider: Donita Vizcaino, XIOMARA)1613 (Given - Provider: Donita Vizcaino, XIOMARA) 0024 (Given - Provider: Kassandra Cruz, XIOMARA)0817 (Given - Provider: Carmen Valente RN)1622 (Given - Provider: Carmen Valente RN) 0005 (Given - Provider: April Bonner RN) 1,000 mg, intravenous, Administer over 3 0 Minutes, EVERY 8 HOURS, 7 doses, First dose on 11/02/18 at 0145, Last dose on Sun11/04/18 at 0000, Controlled antibiotic, has ID approved? No: After 10pm, Before 8am, Routine enoxaparin (LOVENOX) injection 40 mg 1007 (Given - Pro vider: Donita Vizcaino RN) 0816 (Given - Provider: Carmen Valente RN) 0902 (Gi jose - Provider: Carmen Valente RN) 40 mg, subcutaneous, DAILY, First dose o n 11/02/18 at 1015, Until Discontinued, Routine insulin aspart U-100 (NOVOLOG FLEXPEN) injection 1049 (Not Given - Provider: Donita Vizcaino RN - Reason: Order parameters not met)1244 (Given - Provider: Donita Vizcaino RN)1653 (Given - Provider: Donita Vizcaino RN) 0814 (Given - Provider: Carmen Valente RN)1305 (Given - Provider: Carmen Valente RN)1725 (Given - Provider: Carmen Valente, XIOMARA) 0920 (Not Given - Provider: Carmen Valente RN - Reason: Order parameters not met)1153 (Given - Provider: Carmen Valente RN) subcutaneous, 3 TIMES DAILY WITH MEALS, First dose on 11/02/18 at 0800, Until Discontinued insulin aspart U-100 (NOVOLOG FLEXPEN) injection 2235 (Given - Provider: Kassandra Cruz RN) 2125 (Given - Provider: April Bonner RN) subcutaneous, AT BEDTIME, First dose on 11/02/18 at 2100, Until Discontinued lamoTRIgine (LAMICTAL) tablet 50 mg 0132 (Given - Prov ider: Kassandra Cruz RN)1008 (Given - Provider: Donita Vizcaino RN)2201 (Given - Provider: Kassandra Cruz RN) 0816 (Given - Provider: Carmen Valente RN)2028 (Given - Provider: April Bonner RN) 0904 (Given - Provider: Carmen Valente RN) 50 mg, oral, 2 TIMES DAILY, First dose o n 11/02/18 at 0100, Until Discontinued levothyroxine (SYNTHROID) tablet 100 mcg 0636 (Given - Provider: Kassandra Cruz RN) 0645 (Given - Provider: Kassandra Cruz RN) 0604 (Given - Provider: April Bonner RN) 100 mcg, oral, DAILY BEFORE BREAKFAST, F irst dose on 11/02/18 at 0700, Until Discontinued, Routine mycophenolate mofetil (CELLCEPT) suspension 100 mg 1004 (Given - Provider: Carmen Valente, XIOMARA) 100 mg, oral, DAILY, First dose on Mon at 0930, Until Discontinued, Routine polyethylene glycol 3350 (MIRALAX) packet 17 g 1009 (G iven - Provider: Donita Vizcaino, RN)2204 (Given - Provider: Kassandra Cruz RN) 0830 (Given - Provider: Carmen Valente, XIOMARA)2037 (Not Given - Provider: April Bonner RN - Reason: Patient/family refused) 904 (Not Given - Provider: Carmen Hauser RN - Reason: Patient/family refused) 17 g, oral, 2 TIMES DAILY, First dose on 11/02/18 at 0900, Until Discontinued, Routine predniSONE (DELTASONE) tablet 10 mg 10 mg, oral, DAILY, 2 doses, First dose on 11/09/18 at 0900, Last dose on 11/10/18 at 0900, Routine predniSONE (DELTASONE) tablet 2.5 mg 2.5 mg, oral, DAILY, First dose on Mon at 0900, Until Discontinued, Routine predniSONE (DELTASONE) tablet 20 mg 20 mg, oral, DAILY, 2 doses, First dose on Maria Eugenia 11/07/18 at 0900, Last dose on Sun11/08/18 at 0900, Routine predniSONE (DELTASONE) tablet 30 mg 30 mg, oral, DAILY, 2 doses, First dose on Tu11/05/18 at 0900, Last dose on Sun11/06/18 at 0900, Routine predniSONE (DELTASONE) tablet 40 mg (COMPLETED) 816 (Given - Provider: Carmen Valente RN) 902 (Given - Provider: Carmen Valente RN) 40 mg, oral, DAILY, 2 doses, First dose on 11/03/18 at 0900, Last dose on 11/04/18 at 0900, Routine predniSONE (DELTASONE) tablet 50 mg (CANCELED) 1010 (G iven - Provider: Donita Vizcaino, RN) 50 mg, oral, DAILY, First dose on 11/02/18 at 0900, Until Discontinued, Routine senna (SENOKOT) tablet 3 Tab 0132 (Given - Provider: Liliam Cruz RN)2200 (Given - Provider: Kassandra Cruz, XIOMARA) 2027 (Given - Provider: April Bonner , RN) 3 Tab, oral, AT BEDTIME, First dose on S at 11/02/18 at 0045, Until Discontinued, Routine traZODone (DESYREL) tablet 25 mg 0229 (Not Given - Pro vider: Kassandra Cruz RN - Reason: Other - Comment: pt sleeping soundly)2200 (Given - Provider: Kassandra Cruz, RN) 2027 (Given - Provider: April Bonner, XIOMARA) 25 mg, oral, AT BEDTIME, First dose on S at 11/02/18 at 0100, Until Discontinued, Routine valproic acid (as sodium salt) (DEPAKENE) solution 500 mg (CANCELED) 0132 (Given - Provider: Kassandra Cruz, XIOMARA)1007 (Given - Provider: Donita Vizcaino, XIOMARA)2200 (Hold - Provider: Kassandra Cruz RN - Reason: Patient/family refused - Comment: pt unable to take saying will make her sick) 0816 (Not Given - Provider: Carmen Valente RN - Reason: Patient/family refused) 500 mg, oral, 2 TIMES DAILY, First dose on 11/02/18 at 0100, Until Discontinued, Routine valproic acid (DEPAKENE) capsule 500 mg 1033 (Given - Provider: Carmen Valente, XOIMARA)2027 (Given - Provider: April Bonner, XIOMARA) 09 (Given - Provider: Carmen Valente, XIOMARA) 500 mg, oral, 2 TIMES DAILY, First dose on 11/03/18 at 0945, Until Discontinued, Routine vancomycin (VANCOCIN) 750 mg in dextrose 5% (D5W) 150 mL IVPB (CANCELED) 0400 (Given - Provider: Kassandra Cruz RN) 750 mg, intravenous, Administer over 60 Minutes, EVERY 12 HOURS, 14 doses, First dose on 11/02/18 at 0315, Last dose on Sun11/08/18 at 1515, Routine vancomycin (VANCOCIN) IVPB 1,000 mg (COMPLETED) 1656 ( Given - Provider: Donita Vizcaino RN) 0446 (Given - Provider: Ashu Tiwari)1724 (Given - Provider: Carmen Valente, XIOMARA) 1,000 mg, intravenous, Administer over 6 0 Minutes, EVERY 12 HOURS, 3 doses, First dose on 11/02/18 at 1600, Last dose on Sun11/03/18 at 1600, Routine PRN Medication Order 11/02/2018 11/03/2018 11/04/2018 acetaminophen (TYLENOL) tablet 650 mg 18 43 (Given - Provider: Carmen Valente, RN) 0604 (Given - Provider: April Bonner RN) 650 mg, oral, EVERY 6 HOURS PRN, Startin g Sun11/01/18 at 2148, Until Sun11/04/18 at 1613, Pain, Fever, Routine bisacodyl (DULCOLAX) suppository 10 mg 1613 (Given - P rovider: Donita Vizcaino RN) 10 mg, rectal, DAILY PRN, Starting Sat at 0024, Until Sun11/04/18 at 1613, Constipation, Routine dextrose 50 % solution 12.5 g 12.5 g (25 mL), intravenous, PRN, Starti ng Sat 11/02/18 at 0503, Until Sun11/04/18 at 1613, Low Blood Sugar, Routine glucagon injection 1 mg 1 mg, intramuscular, PRN, Starting Sat at 0503, Until Sun11/04/18 at 1613, Low blood sugar, Routine ibuprofen (MOTRIN) tablet 400 mg 0032 (Given - Provider: April Bonner RN)0917 (Given - Provider: Carmen Valente, XIOMARA) 400 mg, oral, EVERY 8 HOURS PRN, Startin g Sun11/04/18 at 0004, Until Sun11/04/18 at 1613, Pain, Routine ondansetron (PF) (ZOFRAN) injection 4 mg 2307 (Given - Provider: Kassandra Cruz, XIOMARA) 4 mg, intravenous, EVERY 4 HOURS PRN, St arting 11/02/18 at 2228, Until 11/04/18 at 1613, Nausea, Routine documented in this encounter Orders Medications Ordered That Might Not Have Count Last Ord ered Date First Ordered Date Been Administered dextrose 50 % solution 12.5 g 1 11/02/2018 glucagon injection 1 mg 1 11/02/2018 predniSONE (DELTASONE) tablet 10 mg 1 11/02/2018 predniSONE (DELTASONE) tablet 2.5 mg 1 11/02/2018 predniSONE (DELTASONE) tablet 20 mg 1 11/02/2018 predniSONE (DELTASONE) tablet 30 mg 1 11/02/2018 Diet Count Last Ordered Date First Ordered Date DISCHARGE DIET 2 11/04/2018 Nursing Count Last Ordered Date First Ordered Date ACTIVITY INSTRUCTIONS 3 11/04/2018 BATHING INSTRUCTIONS 1 11/04/2018 DRIVING INSTRUCTIONS 1 11/04/2018 DISIMPACTION 1 11/02/2018 VITAL SIGNS 1 11/01/2018 VTE PHARMACOLOGIC PROPHYLAXIS CURRENTLY 1 11/01/19 19 ORDERED OR ON ALTERNATIVE THER Consult Count Last Ordered Date First Ordered Date CONSULT PRESSURE ULCER CARE TEAM 1 11/02/2018 PT Count Last Ordered Date First Ordered Date PT EVALUATION AND TREAT 1 11/01/2018 IV Count Last Ordered Date First Ordered Date IV REQUEST 1 11/02/2018 REMOVE CENTRAL CATHETER 1 11/02/2018 Admission Count Last Ordered Date First Ordered Date STATUS: INPATIENT ACUTE ADMISSION 1 11/01/2018 Transfer Count Last Ordered Date First Ordered Date NOTIFY PPS OF DISCHARGE COMPLETE 1 11/04/2018 CHANGE ATTENDING TO: 1 11/02/2018 UR PATIENT STATUS CHANGE 1 11/02/2018 Discharge Count Last Ordered Date First Ordered Date DISCHARGE PATIENT 1 11/04/2018 Legal Count Last Ordered Date First Ordered Date MISCELLANEOUS DISCHARGE INSTRUCTIONS 11 11/04/2018 documented in this encounter Additional Health Concerns Infection Onset Date Last Indicated Resolved Time MRSAComment: IP note: risk factors - DM, impaired mobility, retirement resident 02/25/2015 02/25/2015 Pos nares 02/25/2015 Neg nares 11/02/18 Neg nares 12/13/18 N [place] 12/13/18 documented as of this encounter Care Teams Respiratory Support Technician Relationship Specialty Start Date End Date Pio Odonnell MD PCP - General 10/31/18 04/20/[address] [place] [address] documented as of this encounter
--- OUTSIDE RECORDS SUMMARY | 2022-03-17 00:37 | XMS_ITS | Encounter Summary ---
:1960 Author Organization [facility] Address [address] [place] [address] Care Team Providers Name Role Phone Pio Odonnell MD Primary Care Provider [phone] Reason for Referral Radiology Services (Routine) - Authorization Not Required Specialty Diagnoses / Procedures Referred By Contact Refer red To Contact Diagnoses Nephrolithiasis Reji Foster, Procedures RAD US RETROPERITONEAL COMPLETE [address] [phone] Referral ID Status Reason Start Expiration Visits Visits Date Date Requested Authorized [id number] Authorization Not 12/17/2018 1 1 Required Reason for Visit Reason Comments Post-OP Follow Up Encounter Details Date Type Department Care Team Description 12/17/2018 Post-op Visit [facility] Reji Foster Neph rolithiasis Urology - Chandrakant Fletcher MD (Primary Dx) [address] [address] [place] [address] Social History Tobacco Use Types [...] as of this encounter Patient Instructions Patient InstructionsCoKylie ackerman - 12/17/2018 10:15 EDT Ultrasound: Scheduled 01/28/2019 Check in at 10:15 am Arrive with a full bladder documented in this encounter Discharge Disposition Disposition Code Departure Means Destination Auto Discharge documented in this encounter Progress Notes Reji Foster MD, MD - 12/17/2018 1015 EDT This is a 58-year-old female who underwent staged intervention on the right side, beginning with thepercutaneous procedure followed by flexible ureteroscopy to treat a large stone burden in the right kidney. Her stones came back infection based with calcium phosphate and struvite. She has been doing well post-procedures and presents now for removal of her stent. PROCEDURE: After obtaining informed consent, she was taken to the exam room, placed in supine position. She was prepped and draped in the standard sterile fashion. The cystoscope was inserted into the bladder. The bladder somewhat hard to distend however, we were able to do so identified the stent emanating from the orifice. It was grasped with a flexible grasper and removed in its entirety. She tolerated the procedure well. I would like to see her back in 6 to 8 weeks with a postoperative ultrasound as a new baseline and to be able to follow up in the future. documented in this encounter Plan of Treatment Upcoming Encounters Date Type Specialty Care Team Description 06/13/2022 Appointment Radiology 06/13/2022 Office Visit Urology Reji Foster MD [address] [facility], [facility], [address] [place], [place] [address] (Wo rk) documented as of this encounter Procedures Procedure Name Priority Date/Time Associated Diagnosis Comme nts RAD US RETROPERITONEAL Routine 01/28/2019 11:13 Nephrolithiasi s Results for this COMPLETE EDT procedure are i n the results section. documented in this encounter Results RAD US RETROPERITONEAL COMPLETE (01/28/2019 11:13 EDT) Anatomical Region Laterality Modality Other Specimen Narrative [facility] - 01/28/2019 11:56 EDT RAD US RETROPERITONEAL COMPLETE ?? Signs and Symptoms/Comments: ?? N20.0-Calculus of [id number]; Kidney stone, known, follow up Comparison: Renal colic CT December 06, 2018 Technique: Grayscale and color Doppler ultrasound i mages of the retroperitoneum were performed. Findings: Right kidney: The right kidney is normal in size measuring 10.2 cm. There has been interval removal of the r ight nephroureteral stent. There is no hydronephrosis. No shadowing echogenic calcification are identified. On color Doppler imaging the re are 2 areas of twinkle artifact in the mid and lower right kidn ey which may reflect stones. Left kidney: The left kidney is normal i n size and appearance measuring 11.5 cm. No solid or cystic ma sses, calcifications, or hydronephrosis identified. Bladder: The urinary bladder is under di stended but grossly unremarkable. Impression: 1. Interval removal of right nephrourete ral stent with no hydronephrosis 2. Question residual calcifications with in the right kidney, not well seen on this ultrasound 3. Normal appearance of the left kidney and urinary bladder Procedure Note Gibson Polanco MD - 01/28/2019 RAD US RETROPERITONEAL COMPLETE Signs and Symptoms/Comments: N20.0-Calculus of [id number]; Kidney stone, known, follow up Comparison: Renal colic CT December 06, 2018 Technique: Grayscale and color Doppler ultrasound i mages of the retroperitoneum were performed. Findings: Right kidney: The right kidney is normal in size measuring 10.2 cm. There has been interval removal of the r ight nephroureteral stent. There is no hydronephrosis. No shadowing echogenic calcification are identified. On color Doppler imaging the re are 2 areas of twinkle artifact in the mid and lower right kidn ey which may reflect stones. Left kidney: The left kidney is normal i n size and appearance measuring 11.5 cm. No solid or cystic ma sses, calcifications, or hydronephrosis identified. Bladder: The urinary bladder is under di stended but grossly unremarkable. Impression: 1. Interval removal of right nephrourete ral stent with no hydronephrosis 2. Question residual calcifications with in the right kidney, not well seen on this ultrasound 3. Normal appearance of the left kidney and urinary bladder Performing Organization Address City/State/ZIP Code Phon e Number [facility] documented in this encounter Visit Diagnoses Diagnosis Nephrolithiasis - Primary Calculus of kidney documented in this encounter Additional Health Concerns Infection Onset Date Last Indicated Resolved Time MRSAComment: IP note: risk factors - DM, impaired mobility, group home resident 02/25/2015 02/25/2015 Pos nares 02/25/2015 Neg nares 11/02/18 Neg nares 12/13/18 N [place] 12/13/18 documented as of this encounter Care Teams Registered Associate Relationship Specialty Start Date End Date Pio Odonnell MD PCP - General 10/31/18 04/20/[address] [place] [address] documented as of this encounter
--- OUTSIDE RECORDS SUMMARY | 2022-03-17 00:37 | XMS_ITS | Encounter Summary ---
:1960 Author Organization [facility] Address [address] [place] [address] Care Team Providers Name Role Phone Pio Odonnell MD Primary Care Provider [phone] Reason for Referral (Routine) - Receiving Office to Obtain Authorization Specialty Diagnoses / Procedures Referred By Contact Refer marcus To Contact Edouard Sheffield MD [address] [place] [phone] Referral ID Status Reason Start Expiration Visits Visits Date Date Requested Authorized [id number] Receiving Office Specialty 1 1 to Obtain Services 9 Authorization Required Comments 12/17 at 10:00 Encounter Details Date Type Department Care Team Description 12/12/2018 - [facility] Reji Foster of kidney 12/13/2018 Encounter General Surgery MD Chance (Primary Dx) [address] [address] [place] [address] Social History Tobacco Use Types [...] Sign Reading Time Taken Comments Blood Pressure 102/68 12/13/2018 1412 EDT Pulse - - Temperature 36.5 ??C (97.7 ??F) 12/13/2018 1412 EDT Respiratory Rate 18 12/13/2018 1412 EDT Oxygen Saturation 96% 12/13/2018 1412 EDT Inhaled Oxygen Concentration - - Weight 70 kg (154 lb 5.2 oz) 12/12/2018 2211 EDT Height 165.1 cm (5' 5) 12/12/2018 2211 EDT Body Mass Index 25.68 12/12/2018 2211 EDT documented in this encounter Functional Status [...] Diagnoses Diagnosis N20.0 Calculus of kidney-N20.0[ICD-10-CM ] E11.9 Type 2 diabetes mellitus without c omplications-E11.9[ICD-10-CM] E03.9 Hypothyroidism, unspecified-E03.9[ ICD-10-CM] F31.9 Bipolar disorder, unspecified-F31. 9[ICD-10-CM] Z72.0 Tobacco use-Z72.0[ICD-10-CM] Z79.899 [facility] [place] (current[facility] drug t herapy-Z79.899[ICD-10-CM] Z79.82 director long term care (current) use of aspiri n-Z79.82[ICD-10-CM] Z79.52 skilled nursing (current) use of system ic steroids-Z79.52[ICD-10-CM] documented in this encounter Discharge Summaries Edouard Sheffield MD - 12/13/2018 1131 EDT Surgery Discharge Summary Primary Care Provider: Pio Odonnell Attending Physician: Reji Foster MD Admit Date: 12/12/2018 Discharge Date: 12/13/2018 Disposition: shelter facility Problems and Procedures Admitting Diagnosis: Right nephrolithiasis Principal/Final Diagnosis: Same Additional Problems Managed in the Hospital Active Hospital Problems Diagnosis Date Noted ??? Calculus of kidney 12/05/2018 Resolved Hospital Problems No resolved problems to display. Principal Procedure: Cystoscopy, right ureteroscopy with basket stone extraction, right ureteral stent exchange Date: 12/13/2018 Secondary Procedures: none Hospital Course Gingre is a lady with a history of stones s/p right PCNL and then second look URS as above. She tolerated the procedure well without complication and recovered in the PACU. She was admitted overnight for observation. She was transferred to the surgical floor. She did well. She was appropriate for disc harge back to her facility. Allergies and Immunizations Allergies Allergen Reactions ??? [...] BP Heart Rate Resp Temp SpO2 O2 Device 12/13/18 1054 102/70 83 BPM 18 35.8 ??C (96.4 ??F) 94 % None 12/13/18 0700 ? None 12/13/18 0635 90/53 ??? 16 35.6 ??C (96.1 ??F) 95 % ??? Results Pending at Discharge Test results still pending from this admission Procedure Component Value Units Date/Time MRSA PCR [[id number]] Collected: 12/13/18 1017 Lab Status: Preliminary result Specimen: Other from Nasal Updated: 12/13/18 1049 Result PENDING Kidney Stone Analysis [[id number]] Collected: 12/12/18 1330 Lab Status: In process Specimen: Other Updated: 12/12/18 1549 Last Lab Results at Discharge CBC: Lab Results Component Value Date WBC 4.36 12/13/2018 RBC 3.74 (L) 12/13/2018 HGB 11.9 12/13/2018 HCT 36.7 12/13/2018 MCV 98 12/13/2018 MCH 31.8 12/13/2018 MCHC 32.4 12/13/2018 PLT 243 12/13/2018 DIFFTYPE Manual 11/01/2018 SEDRATE 88 (H) 09/04/2012 Discharge Follow Up Upcoming Appointments Dec 17, 2018 10:00 EDT Cystoscopy with Cystoscopy Scope [facility] (--) [address] [facility] [address] Dec 17, 2018 10:15 EDT Post-Op Visit with Reji Foster MD [facility] (--) [address] [facility] [address] Edouard Sheffield MD 12/13/2018 11:31 documented in this encounter Medications at Time [...] 125 mcg tablet mouth daily. Multivitamins with Minerals Take 1 Tab by 0 tablet mouth daily traZODone (DESYREL) 50 mg Take 25 mg by 0 tablet mouth 2 times daily. acetaminophen (TYLENOL) 500 Take 2 tablets by 0 0 12/06/2018 04/13/2020 mg tablet mouth every 6 hours as needed for Pain. diclofenac (VOLTAREN) 50 mg Take 1 tablet by 6 tablet 0 04/20/2021 EC tablet mouth 2 times daily as needed for Pain. mycophenolate mofetil Take 0.5 mL by 3 Bottle 1 06/12/2013 04/20/2021 (CELLCEPT) 200 mg/mL mouth daily. Need suspensionIndications: labs done every 3 Vasculitis, primary RADIOLOGY SERVICES MANAGER months ([facility]) ([facility]) phenazopyridine (PYRIDIUM) Take 2 tablets by 9 [...] Sig Dispensed Refills Start Date End Date docusate sodium (COLACE) Take 1 capsule by 0 11/23 100 mg capsule mouth 2 times daily. diclofenac (VOLTAREN) 50 mg Take 1 tablet by 6 tablet 0 04/20/2021 EC tablet mouth 2 times daily as needed for Pain. phenazopyridine (PYRIDIUM) Take 2 tablets by 9 tablet 0 04/20/2021 100 mg tablet mouth 3 times daily as needed for Pain. documented in this encounter Discharge Disposition Disposition Code Departure Means Destination Discharged to Other Facility documented in this encounter Progress Notes Magdalene Banks - 12/13/2018 1214 EDT [place] paperwork, including med list, has been faxed to facility [phone] Transfer set for 4 PM today via [facility] Forms in front of chart for completion YTMagdalene Banks - 12/13/2018 1139 EDT Initial Case Management/Social Work Assessment and Discharge Plan/Readmission Risk Assessment REASON FOR ADMISSION: <principal problem not specified> Patient understands reason for admission: Yes(S/P R cystoscopy basket stone extraction ) PATIENT CONTACT INFO VERIFIED: Yes PATIENT ADDRESS VERIFIED: LIVING ARRANGEMENTS AND ACCESSIBILITY ISSUES: Living Arrangements: [facility] Care Facility Name: [facility], [place] Levels: 1 Stairs to enter: 0 What in home social supports are available to the patient? 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 Yes ADVANCED DIRECTIVES, POA &/or COLST IN PLACE: Healthcare Directive: No, patient does not have advance directive for healthcare treatment Information Provided on Healthcare Directives: No Information on Healthcare Directives Requested: No DIRECTIVES FOR FINANCES: Directive For Finances: No TRANSPORTATION: Transportation: Ambulance CULTURAL, JEWISH and/or LANGUAGE factors affecting health care/discharge planning: Spiritual/Cultural Requests: None Any factors affecting health care/discharge planning?: No Insurance in Place: Yes Medical Insurance: Yes Type of insurance: Medicaid Medicaid Type: LTC Medicaid Referred to patient financial services: No DISCHARGE RISK ASSESSMENT: Total # selected above: Tentative plan to address the risk of re-hospitalization for those at HIGH MODERATE RISK: RAPT TOOL: Age: 50-65 Gender: Female Will you live with someone who will care for you?: Yes RAPT Tool Score: 6 Patient expects to be discharged to: Ca return to [facility] [place], [place] SBIRT: SASQ (Single Alcohol Screening Question) How many times in the past year have you had 4 or more drinks in a single day?: Never How many times in the past year have you used an illegal drug or used a prescription medication for non-medical reasons?: Never Intervention in place/initiated?: No, not indicated FUNCTIONAL STATUS: Activities patient requires assistance: In/Out of Bed, Taking Medications, Feeding, Mobility Assistive Device: Lift, Slide board COMMUNITY RESOURCES/SUPPORTS: Primary Care Provider: Pio Odonnell PCP Verified: Yes Specialists: Other(Urology ) Type of Home Health Services: Home health aide DME Provider: Pharmacy: [id number] - [place], [place] - [address] [facility] [address] Home Health: Other: POST HOSPITAL TRANSITION PLAN: Plan is for return to [facility] this afternoon. No time, as of yet, for ambulance transfer Facility requests dc meds faxed to: [phone] MAGDALENE BANKS 12/13/2018 11:39 Corrine Issa MD - 12/13/2018 0533 EDT Urology Progress Note Chief complaint: Right nephrolithiasis POD # 1 s/p Cystoscopy, right ureteroscopy with basket stone extraction, right ureteral stent exchange 24 hour events: OR, admitted Afebrile, VSS ANAI on Subjective/Objective Subjective: Doing well, says her neck hurts. Tolerating diet, no N/V. ROS as above. All others negative. Objective: Blood pressure 128/67, temperature 35.7 ??C (96.3 ??F), temperature source Tympanic, resp. rate 16, height 165.1 cm (65), weight 70 kg (154 lb 5.2 oz), SpO2 96 %. Intake/Output Summary (Last 24 hours) at 12/13/2018 0533 Last data filed at 12/13/2018 0506 Gross per 24 hour Intake 1926 ml Output ??? Net 1926 ml Exam: Gen: NAD CV: RRR Resp: Non labored on RA Abdominal: Soft, non-distended Back: no CVA tenderness, or flank bruising CBC No results for input(s): WBC, RBC, HGB, HCT, MCV, MCHC, PLT, NEUTROABS in the last 72 hours. BMP No results for input(s): CREATININE, BUN, NA, K, CL, CO2 in the last 72 hours. Assessment/Plan Assessment: Pt is a 58 y.o. female POD #1 s/p Cystoscopy, right ureteroscopy with basket stone extraction, rightureteral stent exchange. VSS, good pain control, labs within nl limits, awaiting return of bowel function. Plan: Await return of bowel function Encourage IS OOB/amb QID as tolerated SLIV Cont periop abx PATI: Today Diet: DIET CONSISTENT CARBOHYDRATE DVT Prophylaxis: ambulate, SCDs, heparin Corrine Marques MD 12/13/2018 5:33 Weekdays from 7AM-5PM page [phone] with questions. Mone Matute RN - 12/09/2018 1100 EDT Ginger Barrera's, nurse Mary Alice Babb cell room supervisor at the [facility] have been instructed as followsregarding medication administration for the day of the scheduled procedure. Date of Surgery: 12/12/18 Instructions for Taking Medications Day of Surgery Medication Sig Last Dose Hold DOS Take DOS acetaminophen (TYLENOL) 500 mg tablet Take 2 tablets by mouth every 6 hours as needed for Pain. X prn aspirin chewable 81 mg tablet Take 81 mg by mouth daily. X buPROPion (WELLBUTRIN SR) 150 mg SR tablet Take 450 mg by mouth daily. X carbidopa-levodopa (SINEMET) 25-100 mg per tablet Take 1 Tab by mouth 4 times daily X cephALEXin (KEFLEX) 500 mg capsule Take 1 capsule by mouth 2 times daily for 5 days. finishes 12/11/18 diclofenac (VOLTAREN) 50 mg EC tablet Take 1 tablet by mouth 2 times daily as needed for Pain. Pt has not been taking, per XIOMARA Babb will hold prior to surgery Lamotrigine 50 mg tablet extended release 24hr Take 50 mg by mouth 2 times daily X levothyroxine (SYNTHROID) 100 mcg tablet Take 100 mcg by mouth daily. X Multivitamins with Minerals tablet Take 1 Tab by mouth daily 12/09/18 mycophenolate mofetil (CELLCEPT) 200 mg/mL suspension Take 0.5 mL by mouth daily. Need labs done every 3 months X phenazopyridine (PYRIDIUM) 200 mg tablet Take 1 tablet by mouth 3 times daily as needed for up to 3 days for Pain. X predniSONE (DELTASONE) 5 mg tablet Take 0.5 Tabs by mouth daily. X traZODone (DESYREL) 50 mg tablet Take 25 mg by mouth at bedtime. X valproic acid, as sodium salt, (DEPAKENE) 250 mg/5 mL (5 mL) solution Take 500 mg by mouth 2 times daily. X Per Adriane Conroy in anesthesia, take medications with apple or grape jelly. [facility]. documented in this encounter H&P Notes Araceli Mcguire PA - 12/12/2018 1158 EDT See scanned H&PDOS: 12/04/2018 The preoperative history and physical which was performed within 30 days of this procedure has been reviewed and the clinically appropriate elements of the physical examination havebeen repeated. There are no changes to the documented history and physical or if so such changes aredocumented below MANDO Perkins 12/12/2018 11:58 documented in this encounter OR Notes OR Surgeon - Reji Foster MD, MD - 12/12/2018 0000 EDT OPERATIVE REPORT SERVICE DATE: 12/12/2018 SURGEON: Reji Foster MD ASSISTANTS: MD Araceli Watters PA PREOPERATIVE DIAGNOSIS: Residual right side renal calculi status post mini percutaneous nephrolithotomy. POSTOPERATIVE DIAGNOSIS: Residual right side renal calculi status post mini percutaneous nephrolithotomy. PROCEDURE: Right flexible ureteroscopy with basket stone extraction and ureteral stent exchange. COMPLICATIONS: No complications. SPECIMENS: Stone sent for analysis. INDICATIONS: This is a woman who was found to have a relatively large kidney stone burden. We discussed different treatment options, and she underwent a successful percutaneous intervention. Postoperative imaging, however, revealed a few stones scattered throughout the kidney, mostly in the lower portion and 1 adjacent to the access tract at the time of the procedure. As these were suspected infection-based stones, we recommended a second ureteroscopic visualization and removal of anything residual.She presents now for this procedure. NARRATIVE: After obtaining informed consent, she was taken to the operating room and placed in the supine position. WHO step 1 was performed and she underwent general anesthesia and was then placed in lithotomy position and prepped and draped in the standard sterile fashion. WHO step 2 was performed and the cystoscope with the 30-degree lens was guided into the bladder. We were able to identify the orifice, although the anatomy was somewhat distorted due to her body habitus. I was able to guide an 0-35 hybrid wire adjacent to the stent as a safety wire and then removed the scope and reentered to remove the stent with a flexible grasper. We then freehand drove the digital flexible ureteroscope into the ureter and up into the kidney. There were a few medium-sized stones that were grasped with a 0-tip basket and removed in their entirety. The stones in general were quite soft and several others that we grasped fragmented simply with the basket alone. We did some irrigation through a 10 mL syringe to remove any other debris that we can get. Upon completion, there was a very small amount of tiny dust-like fragments that remained. These were too small to grasp the basket and we decided to stop. We watched the scope out and there were no stones in the ureter. Over the safety wire, we passed a 6-Prydeinig 24 cm double-J stent with a good curl in the kidney as well as in the bladder. The bladder was antonieataguilar vazquezd. She tolerated the procedure well. Due to her comorbidities, she opted to stay overnight. We will keep her on 24 hours of antibiotics and plan on discharge tomorrow. She will need followup for without further imaging for cystoscopy and stent removal. Unless otherwise noted, there were no complications, no blood loss, no cultures obtained, no specimens removed, and no drains retained. Reji Foster MD 02 30 PM / Reji Foster MD kn Confirmation: [id number] Dictation ID: [id number] documented in this encounter Miscellaneous Notes Plan of Care - Isabel Buenrostro RN - 12/13/2018 1620 EDT Problem: Daily Care Plan Goals Goal: Care Plan Documentation 12/13/18 1630 Care Plan Focus Area of Focus Discharge Plan Goal This Shift pt will d/c back to rehab Nursing Discharge Note D: Patient noted with discharge orders to: [facility]. A: Prescriptions faxed to rehab center. IV d/c'd. Belongings collected and sent with patient. Report called to [facility] at 1630. R: Patient verbalized understanding of discharge instructions and denied further questions. ISABEL BUENROSTRO RN 12/13/2018 16:30 lan of Care - Zoila Nair - 12/13/2018 0814 EDT Problem: CONTACT PRECAUTIONS Goal: Prevent Transmission Of Infection Patient has a history of MRSA (click on Inf: MRSA in PRISM banner for details). Please maintain contact precautions. Do not cohort at this time. Please call Infection Prevention with questions ([phone]). lan of Care - José Luis Breaux RN - 12/13/2018 0431 EDT Problem: Daily Care Plan Goals Goal: Care Plan Documentation Outcome: Ongoing 12/12/181999 Care Plan Focus Area of Focus Safety Goal This Shift pt will be safe Fall Precautions D: Patient placed on fall precautions based on Justine Lion Fall Risk Assessment. Justine Lion Fall Risk Assessment Last Known Fall: No falls Mobility: Hemiplegic, paraplegia, or quadriplegia Medications: Cardiovascular or central nervous system meds Mental Status/LOC/Awareness: Awake, alert, and oriented to date, place, and person Toileting Needs: Use of assistive device (Bedside commode, bedpan, urinal), Incontinence Volume/Electrolyte Status: Use of IV fluids/tube feeds Communication/Sensory: Visual (Glasses)/hearing deficit Behavior: Appropriate behavior Fletcher Ayad Fall Risk Total: 15 Fall Risk Type : High A: Patient able to comply with fall prevention plan of care. [place]alling [place] Posted. Bed Alarm set at: Zone 1. Toileting plan includes: Bedpan(brief) and the schedule is prn. Patient able to demonstrate proper use of call mariano. Mobility Needs: Assist x2 Assistive Devices: Lift, Slide board Patient Education: handout, Educated on the importance of using call mariano. R: Patient will remain free from injurious falls. Pt resting comfortably. Repositioning Q2-3 hr. WCTM JOSÉ LUIS BREAUX RN nesthesia Post-Eval - Cristin Mcclure MD - 12/12/2018 1622 EDT Anesthesia Post op Note Ginger Barrera [id number] Anesthesia received: General; Vital Signs: Temp: 36.4 ??C (97.5 ??F), Heart Rate: 82 BPM, BP: 109/89, Resp: 20, SpO2: 97 % Vital signs Stable: Yes Consciousness: Recovered to baseline Patient's participation in evaluation:Able to participate Temperature Status: Normothermic Respiratory Status: Airway patent Supplemental O2: Room air Oxygen Saturation: Within patient's normal range Cardiovascular Status: Within patient's normal range Post-op Hydration: Nausea / Vomiting: None Pain Control: Adequate Current Pain Score: Numeric Pain Level (Scale 1-10): 5 Post-op Assessment: Tolerated procedure well Disposition: Inpatient Complications: No apparent anesthetic complications Cristin Mcclure MD 12/12/2018 16:22 rief Op Note - Pastor Donaldson MD - 12/12/2018 1222 EDT [facility] Urologic Surgery Brief Post-Op Note Date of Surgery: 12/12/2018 Surgeon: Reji Foster MD Assistants: Araceli Cramer PA-C; Pastor Donaldson MD Pre-Op Diagnosis: Right nephrolithiasis Post-Op Diagnosis: same Procedure(s): Cystoscopy, right ureteroscopy with basket stone extraction, right ureteral stent exchange Findings: multiple small right renal stones removed with basket; no residuals Anesthesia Type: general The estimated blood loss was Minimal Unless otherwise noted, there were no specimens removed, cultures obtained, or drains retained. Fluids: per anesthesia Urine Output: not recorded Specimens/Cultures: stone fragments Drains/Packs: None Stents: Right 6 x 24 JJ ureteral stent Complications: None Disposition and Condition: Ginger Barrera was sent to PACU in Stable condition. She will be admitted overnight to urology floor for observation. MANDO Perkins 12/12/2018 12:22 documented in this encounter Plan of Treatment Upcoming Encounters Date Type Specialty Care Team Description 06/13/2022 Appointment Radiology 06/13/2022 Office Visit Urology Reji Foster MD [address] [facility], [address] [place], [place] [address] (Wo rk) Scheduled Referrals Name Type Priority Associated Order Schedule Diagnoses PROVIDER FOLLOW-UP Outpatient Referral Routine Or dered: INSTRUCTIONS 12/13/2018 documented as of this encounter Procedures Procedure Name Priority Date/Time Associated Comments Diagnosis IMPLANT RECORD - 12/23/2018 23:47 SCANNED EDT IMPLANT RECORD - 12/17/2018 14:03 SCANNED EDT MRSA PCR Routine 12/13/2018 10:17 Results for this EDT procedure are i n the results section. COMPLETE BLOOD COUNT Routine 12/13/2018 8:14 EDT Results for this procedure are i n the results section. GLUCOSE, GLUCOMETER Routine 12/12/2018 14:36 Resu lts for this EDT procedure are i n the results section. RETROGRADE UROGRAM Routine 12/12/2018 14:22 Resul ts for this EDT procedure are i n the results section. KIDNEY STONE Routine 12/12/2018 13:30 Results for this ANALYSIS EDT procedure are i n the results section. GLUCOSE, GLUCOMETER Routine 12/12/2018 12:28 Resu lts for this EDT procedure are i n the results section. documented in this encounter Results MRSA PCR (12/13/2018 10:17 EDT) Pathologist Sig nature Result No Staphylococcus aureus [facility] detected by PCR. LABORATORY SERVICES Specimen Other (qualifier value) - Nasal Performing Organization Address City/State/ZIP Code Phon e Number [facility] [address] [place] [address] SERVICES (ABNORMAL) COMPLETE BLOOD COUNT (12/13/2018 8:14 EDT) Pathologist Sig nature WBC 4.36 4.0 - 12.4 K/cmm [facility] LABOR[facility]ORY SERVICES RBC 3.74 (L) 3.86 - 5.04 M/cmm [facility] SERVICES Hemoglobin 11.9 11.6 - 15.2 gm/dl [facility] SERVICES HCT 36.7 34.9 - 44.4 % [facility] SERVICES MCV 98 81 - 98 fl [facility] SERVICES MCH 31.8 26.7 - 33.3 pg [facility] SERVICES MCHC 32.4 32.1 - 35.9 gm/dl [facility] SERVICES RDW-CV 13.5 <14.7 % [facility] LABORATORY SERVICES RDW-SD 48.3 <50.4 fl [facility] LABORATORY SERVICES PLT 243 141 - 377 K/cmm [facility] LABORATORY SERVICES MPV 8.8 (L) 9.5 - 12.7 fl [facility] LABORATORY SERVICES Specimen Blood specimen (specimen) - Blood Performing Organization Address City/[facility]/ZIP Code Phon e Number [facility] [address] [place] [address] SERVICES GLUCOSE, GLUCOMETER (12/12/2018 14:36 EDT) Glucose, 71 70 - 100 [facility] Fingerstick mg/dl LABORATORY SERVICES Case Monitor ID [id number]: [facility] Test Performed by LABORATORY Nursing Services SERVICES Specimen Blood Performing Organization Address City/[facility]/ZIP Code Phon e Number [facility] [address] [id number] SERVICES RETROGRADE UROGRAM (12/12/2018 14:22 EDT) Anatomical Region Laterality Modality Other Specimen Narrative [facility] - 12/12/2018 14:22 EDT Non Reportable Exam 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 Note 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, 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 - 12/12/2018 Non Reportable Exam Performing Organization Address City/State/ZIP Code Phon e Number [facility] KIDNEY STONE ANALYSIS (12/12/2018 13:30 EDT) Source RIGHT KIDNEY STONE [facility] LABORATORY SERVICES 1st Constituent 60% Calcium phosphate [facility] (apatite) LABORATORY SERVICES 2nd Constituent (Note)Comment: 30% [facility] Magnesium ammonium LABORATORY phosphate (struvite) SERVICES 3rd Constituent 10% Calcium carbonate [facility] Comment: LABORATORY (Note) SERVICES . ADDITIONAL INFORMATION ------ This test was developed and its performance characteri stics determined by [facility] in a manner consistent with CLIA requirements. This test has not been cleared or approv ed by the U.S. Food and Drug Administration. Performed by: [facility] Labs: [facility] [address], [place] [address] Specimen Other (qualifier value) - Other Performing Organization Address City/State/ZIP Code Phon e Number [facility] [address] [place] [address] SERVICES GLUCOSE, GLUCOMETER (12/12/2018 12:28 EDT) Glucose, 84 70 - 100 [facility] Fingerstick mg/dl LABORATORY SERVICES Case Monitor ID [id number]: [facility] Test Performed by LABORATORY Nursing Services SERVICES Specimen Blood Performing Organization Address City/State/ZIP Code Phon e Number [facility] [address] [place] [address] SERVICES documented in this encounter Visit Diagnoses Diagnosis Calculus of kidney - Primary documented in this encounter Administered Medications Inactive Administered Medications - up to 3 most recent administrations Medication Order MAR Action Action Date Dose Rate Site acetaminophen (TYLENOL) suppository 650 mg 650 mg, rectal, EVERY 4 HOURS PRN, Starting on Maria Eugenia 11/23 10/12 at 1909, Until Sun12/13/18 at 1823, Pain, Routine acetaminophen (TYLENOL) tablet 650 mg Given 12/12/2018 15:45 EDT 650 mg 650 mg, oral, PRN, 1 dose, Starting on Maria Eugenia 12/12/18 at 1415, Until Maria Eugenia 12/12/18 at 1545, Fever, Routine, Recovery (only) acetaminophen (TYLENOL) tablet 650 mg Given 12/13/2018 15:47 EDT 650 mg 650 mg, oral, EVERY 4 HOURS PRN, Starting on Maria Eugenia 12/12/18 at 1909, Until Sun12/13/18 at 1823, Pain, Routine aspirin chewable tablet 81 mg Given 12/13/2018 8:57 EDT 81 mg 81 mg, oral, DAILY, First dose on Sun12/13/18 at 0900, Until Discontinued, Routine buPROPion (WELLBUTRIN SR) SR tablet 450 mg Given 12/13/2018 8:57 EDT 450 mg 450 mg, oral, DAILY, First dose (after last reorder) on Sun12/13/18 at 0900, Until Discontinued, Routine carbidopa-levodopa (SINEMET) 25-100 mg per Given 12/13/2018 11:5 8 EDT 1 Tablet tablet 1 tablet 1 Tablet, oral, 4 TIMES DAILY, First dose on Sun12/12/18 at 2100, Until Discontinued, Routine Given 12/13/2018 8:57 EDT 1 Tablet Given 12/12/2018 20:12 EDT 1 Tablet ceFAZolin (ANCEF) 2,000 mg in sodium chloride Given 5:06 EDT 2,000 mg 0.9% 50 mL IVPB 2,000 mg, intravenous, Administer over 30 Minutes, EVERY 8 HOURS, 2 doses, First dose on Sun12/12/18 at 2100, Last dose on Sun12/13/18 at 0500, Routine Given 12/12/2018 20:11 EDT 2,000 mg ceFAZolin (ANCEF) syringe 2 g Given by Other 12/12/2018 13:03 EDT 2 g 2 g, intravenous, Administer over 10 Minutes, PRE-OP ONCE, 1 dose, On Sun12/12/18 at 1215, Routine docusate sodium (COLACE) capsule 100 mg Given 12/13/2018 8:56 EDT 100 mg 100 mg, oral, 2 TIMES DAILY, First dose on Sun12/12/18 at 2100, Until Discontinued, Routine Given 12/12/2018 20:12 EDT 100 mg heparin injection 5,000 Units Given 12/13/2018 8:56 EDT 5,000 Units 5,000 Units, subcutaneous, EVERY 12 HOURS, First dose on Sun12/12/18 at 2100, Until Discontinued, Routine Given 12/12/2018 20:12 EDT 5,000 Units lactated ringers (LR) infusion New Bag 12/12/2018 12:29 EDT 25 mL/hr at 25 mL/hr, intravenous, CONTINUOUS, Starting on Sun12/12/18 at 1215, Until Sun12/12/18 at 1909, Routine, Preprocedure lactated ringers (LR) infusion New Bag 12/13/2018 5:06 EDT 75 mL/hr 75 mL/hr at 75 mL/hr, 75 mL/hr, intravenous, CONTINUOUS, Starting on Sun12/12/18 at 1600, Until Sun12/13/18 at 0617, Routine New Bag 12/12/2018 20:10 EDT 75 mL/hr 75 mL/hr lamoTRIgine (LAMICTAL) tablet 50 mg Given 12/13/2018 8:57 EDT 50 mg 50 mg, oral, 2 TIMES DAILY, First dose on Sun12/12/18 at 2100, Until Discontinued Given 12/12/2018 22:07 EDT 50 mg levothyroxine (SYNTHROID) tablet 100 mcg Given 12/13/2018 8:57 EDT 100 mcg 100 mcg, oral, DAILY, First dose on Sun12/13/18 at 0900, Until Discontinued, Routine melatonin tablet 3 mg Given 12/12/2018 20:12 EDT 3 mg 3 mg, oral, AT BEDTIME PRN, Starting on Sun12/12/18 at 1909, Until Sun12/13/18 at 1823, Other, Sleep, Routine mycophenolate mofetil (CELLCEPT) suspension 100 Given 12/13/2018 9:37 EDT 100 mg mg 100 mg, oral, DAILY, First dose on Sun12/13/18 at 0900, Until Discontinued, Routine ondansetron (PF) (ZOFRAN) injection 4 mg 4 mg, intravenous, EVERY 4 HOURS PRN, St arting on Sun12/12/18 at 1909, Until Sun12/13/18 at 1823, Nausea, Routine ondansetron (ZOFRAN-ODT) disintegrating tablet 4 mg 4 mg, oral, EVERY 4 HOURS PRN, Starting on Sun12/12/18 at 1909, Until Sun12/13/18 at 1823, Nausea, Routine predniSONE (DELTASONE) tablet 2.5 mg Given 12/13/2018 8:57 EDT 2.5 mg 2.5 mg, oral, DAILY, First dose on Sun12/13/18 at 0900, Until Discontinued, Routine sodium chloride 0.9 % flush 3 mL Given 12/13/2018 9:14 EDT 3 mL 3 mL, intravenous, EVERY 8 HOURS, First dose on Sun12/13/18 at 0800, Until Discontinued, Routine traZODone (DESYREL) tablet 25 mg Given 12/12/2018 20:12 EDT 25 mg 25 mg, oral, AT BEDTIME, First dose on Sun12/12/18 at 2100, Until Discontinued, Routine valproic acid (as sodium salt) (DEPAKENE) Given 12/13/2018 8:56 EDT 500 mg solution 500 mg 500 mg, oral, 2 TIMES DAILY, First dose on Sun12/12/18 at 2100, Until Discontinued, Routine Given 12/12/2018 22:07 EDT 500 mg documented in this encounter Discontinued Medications Medication Sig Discontinue Reason Start Date End Date diclofenac (VOLTAREN) 50 mg Take 1 tablet by Reorder 9 12/13/2018 EC tablet mouth 2 times daily as needed for Pain. phenazopyridine (PYRIDIUM) Take 200 mg by Reorder 12/13/2018 100 mg tablet mouth 3 times daily as needed for Pain. cephALEXin (KEFLEX) 500 mg Take 500 mg by 12/13/2018 capsule mouth 2 times daily. documented as of this encounter Historical Medications This list may reflect changes made after this encounter. Medication Sig Dispensed Refills Start Date End Date phenazopyridine (PYRIDIUM) Take 200 mg by 0 12/13/2018 100 mg tablet mouth 3 times daily as needed for Pain. cephALEXin (KEFLEX) 500 mg Take 500 mg by 0 12/13/2018 capsule mouth 2 times daily. added in this encounter Active and Recently Administered Medications Times are shown in EDT. Scheduled Medication Order 12/11/2018 12/12/2018 12/13/2018 aspirin chewable tablet 81 mg 08 57 (Given - Provider: Isabel Buenrostro RN) 81 mg, oral, DAILY, First dose on Sun at 0900, Until Discontinued, Routine buPROPion (WELLBUTRIN SR) SR tablet 450 mg 08 (Given - Provider: Isabel Buenrostro RN) 450 mg, oral, DAILY, First dose on Sun at 0900, Until Discontinued, Routine carbidopa-levodopa (SINEMET) 25-100 mg per tablet 1 tablet 2011 (Given - Provider: José Luis Breaux RN) 08 (Given - Provider: Isabel Buenrostro RN) 1158 (Given - Provider: Isabel Buenrostro RN)1700 (Canceled Entry - Provider: Batch Job User Admin - Comment: Automatically canceled at discontinue of medication order) 1 tablet, oral, 4 TIMES DAILY, First dos e on Sun12/12/18 at 2100, Until Discontinued, Routine ceFAZolin (ANCEF) 2,000 mg in sodium chloride 0.9% 50 mL IVP B (COMPLETED) 2010 (Given - Provider: José Luis Breaux RN) 0506 (Given - Provider: José Luis Breaux RN) 2,000 mg, intravenous, Administer over 3 0 Minutes, EVERY 8 HOURS, 2 doses, First dose on Sun12/12/18 at 2100, Last dose on Sun12/13/18 at 0500, Routine ceFAZolin (ANCEF) syringe 2 g (COMPLETED) 1303 (Given by Other - Provider: Mone Loja RN - Comment: Given by Dr. Mae) 2 g, intravenous, Administer over 10 Min utes, PRE-OP ONCE, 1 dose, Sun12/12/18 at 1215, Routine docusate sodium (COLACE) capsule 100 mg 2011 (Given - Provider: José Luis Breaux RN) 0856 (Given - Provider: Isabel Buenrostro RN) 100 mg, oral, 2 TIMES DAILY, First dose on Sun12/12/18 at 2100, Until Discontinued, Routine heparin injection 5,000 Units 2011 (Given - Prov ider: José Luis Breaux RN) 0856 (Given - Provider: Isabel Buenrostro RN) 5,000 Units, subcutaneous, EVERY 12 HOUR S, First dose on Sun12/12/18 at 2100, Until Discontinued, Routine lamoTRIgine (LAMICTAL) tablet 50 mg 2206 (Given - Provider: José Luis Breaux RN) 0857 (Given - Provider: Isabel Buenrostro RN) 50 mg, oral, 2 TIMES DAILY, First dose o n Sun12/12/18 at 2100, Until Discontinued levothyroxine (SYNTHROID) tablet 100 mcg 856 (Given - Provider: Isabel Buenrostro RN) 100 mcg, oral, DAILY, First dose on Sun12/13/18 at 0900, Until Discontinued, Routine mycophenolate mofetil (CELLCEPT) suspension 100 mg 0937 (Given - Provider: Isabel Buenrostro, XIOMARA) 100 mg, oral, DAILY, First dose on Sun at 0900, Until Discontinued, Routine predniSONE (DELTASONE) tablet 2.5 mg 0857 (Given - Provider: Isabel Buenrostro RN) 2.5 mg, oral, DAILY, First dose on Sun at 0900, Until Discontinued, Routine sodium chloride 0.9 % flush 3 mL(Linked Group 1) 0914 (Given - Provider: Isabel Buenrostro, XIOMARA)1604 (Not Given - Provider: Isabel Buenrostro RN - Reason: Order parameters not met) 3 mL, intravenous, EVERY 8 HOURS, First dose on Sun12/13/18 at 0800, Until Discontinued, Routine traZODone (DESYREL) tablet 25 mg 2011 (G iven - Provider: José Luis Breaux, XIOMARA) 25 mg, oral, AT BEDTIME, First dose on 12/12/18 at 2100, Until Discontinued, Routine valproic acid (as sodium salt) (DEPAKENE) solution 500 mg 220 (Given - Provider: José Luis Breaux, XIOMARA) 0856 (Given - Provider: Isabel Buenrostro RN) 500 mg, oral, 2 TIMES DAILY, First dose on Sun12/12/18 at 2100, Until Discontinued, Routine Continuous Medication Order 12/11/2018 12/12/2018 12/13/2018 lactated ringers (LR) infusion (CANCELED) 1229 (New Bag - Provider: Lucy Azul RN) at 25 mL/hr, intravenous, CONTINUOUS, St arting Sun12/12/18 at 1215, Until Sun12/12/18 at 1909, Routine lactated ringers (LR) infusion (CANCELED) 2009 (New Bag - Provider: José Luis Breaux RN) 0506 (New Bag - Provider: José Luis kaur RN) at 75 mL/hr, 75 mL/hr, intravenous, CONT INUOUS, Starting Sun12/12/18 at 1600, Until Sun12/13/18 at 0617, Routine PRN Medication Order 12/11/2018 12/12/2018 12/13/2018 acetaminophen (TYLENOL) suppository 650 mg(Linked Group 2) 1547 (See Alternative - Provider: Isabel Buenrostro, XIOMARA) 650 mg, rectal, EVERY 4 HOURS PRN, Start ing Maria Eugenia 12/12/18 at 1909, Until Sun12/13/18 at 1823, Pain, Routine acetaminophen (TYLENOL) tablet 650 mg (COMPLETED) 1545 (Given - Provider: Charlotte Byrnes, XIOMARA) 650 mg, oral, PRN, 1 dose, Starting Maria Eugenia 12/12/18 at 1415, Until Discontinued, Fever, Routine acetaminophen (TYLENOL) tablet 650 mg(Linked Group 2) 1547 (Given - Provider: Isabel Buenrostro, XIOMARA) 650 mg, oral, EVERY 4 HOURS PRN, Startin g Maria Eugenia 12/12/18 at 1909, Until Sun12/13/18 at 1823, Pain, Routine bisacodyl (DULCOLAX) suppository 10 mg 10 mg, rectal, DAILY PRN, Starting Maria Eugenia at 1909, Until Sun12/13/18 at 1823, Constipation, Routine melatonin tablet 3 mg 2011 (Given - Provider: Emerald Breaux RN) 3 mg, oral, AT BEDTIME PRN, Starting Maria Eugenia 12/12/18 at 1909, Until Sun12/13/18 at 1823, Other, Sleep, Routine ondansetron (PF) (ZOFRAN) injection 4 mg(Linked Group 3) 4 mg, intravenous, EVERY 4 HOURS PRN, St arting Maria Eugenia 12/12/18 at 1909, Until Sun12/13/18 at 1823, Nausea, Routine ondansetron (ZOFRAN-ODT) disintegrating tablet 4 mg(Linked Group 3) 4 mg, oral, EVERY 4 HOURS PRN, Starting Maria Eugenia 12/12/18 at 1909, Until Sun12/13/18 at 1823, Nausea, Routine phenazopyridine (PYRIDIUM) tablet 200 mg 200 mg, oral, 3 TIMES DAILY PRN, 9 doses , Starting Maria Eugenia 12/12/18 at 1909, Until Sun12/13/18 at 1823, Pain, Routine Linked Groups Order Group 1: Change IV to Saline Lock (CANCELED) Routine, ONE TIME, Sun12/13/18 at 0620, For 1 occurrence And sodium chloride 0.9 % flush 3 mLJump to med 3 mL, intravenous, EVERY 8 HOURS, First dose on Sun12/13/18 at 0800, Until Discontinued, Routine Group 2: acetaminophen (TYLENOL) tablet 650 mgJump to med 650 mg, oral, EVERY 4 HOURS PRN, Startin g Maria Eugenia 12/12/18 at 1909, Until Sun12/13/18 at 1823, Pain, Routine Or acetaminophen (TYLENOL) suppository 650 mgJump to med 650 mg, rectal, EVERY 4 HOURS PRN, Start ing Maria Eugenia 12/12/18 at 1909, Until Sun12/13/18 at 1823, Pain, Routine Group 3: ondansetron (PF) (ZOFRAN) injection 4 mgJump to med 4 mg, intravenous, EVERY 4 HOURS PRN, St arting Maria Eugenia 12/12/18 at 1909, Until Sun12/13/18 at 1823, Nausea, Routine Or ondansetron (ZOFRAN-ODT) disintegrating tablet 4 mgJump to med 4 mg, oral, EVERY 4 HOURS PRN, Starting Maria Eugenia 12/12/18 at 1909, Until Sun12/13/18 at 1823, Nausea, Routine documented in this encounter Orders Medications Ordered That Might Not Have Count Last Ord ered Date First Ordered Date Been Administered acetaminophen (TYLENOL) solution unit dose 1 12/12 cup 650 mg acetaminophen (TYLENOL) suppository 650 mg 1 12/12 atropine 0.1 mg/mL syringe 0.5 mg 1 12/12/2018 bisacodyl (DULCOLAX) suppository 10 mg 1 9 buPROPion (WELLBUTRIN SR) SR tablet 450 mg 1 12/12 buPROPion (WELLBUTRIN XL) XL tablet 450 mg 1 12/12 dextrose 50 % solution 12.5 g 1 12/12/2018 diphenhydrAMINE (BENADRYL) injection 12.5 1 2018 mg glucagon injection 1 mg 1 12/12/2018 ibuprofen (MOTRIN) tablet 400 mg 1 12/12/2018 lactated ringers (LR) infusion 1 12/12/2018 metoCLOPramide (REGLAN) injection 10 mg 1 12/13/19 19 naloxone (NARCAN) injection 0.2 mg 1 12/12/2018 ondansetron (PF) (ZOFRAN) injection 4 mg 2 019 ondansetron (ZOFRAN-ODT) disintegrating 1 12/13/19 19 tablet 4 mg phenazopyridine (PYRIDIUM) tablet 200 mg 1 019 Procedures Count Last Ordered Date First Ordered Date IMPLANT RECORD - SCANNED 2 12/24/2018 019 Diet Count Last Ordered Date First Ordered Date DISCHARGE DIET 1 12/13/2018 Nursing Count Last Ordered Date First Ordered Date ACTIVITY INSTRUCTIONS 2 12/13/2018 BATHING INSTRUCTIONS 1 12/13/2018 WOUND CARE INSTRUCTIONS 2 12/13/2018 APPLY WARMING BLANKET 1 12/12/[address] SEQUENTIAL COMPRESSION DEVICE 1 12/12/2018 Admission Count Last Ordered Date First Ordered Date STATUS: OUTPATIENT SURGICAL OP 1 12/12/2018 BED/SERVICES Transfer Count Last Ordered Date First Ordered Date NOTIFY PPS OF DISCHARGE COMPLETE 1 12/13/2018 NOTIFY PPS PATIENT TRANSFERRED OUT OF PACU 1 12/12 PPS NOTIFICATION OF PATIENT ARRIVAL ON 9 UNIT Discharge Count Last Ordered Date First Ordered Date DISCHARGE PATIENT 1 12/13/2018 Legal Count Last Ordered Date First Ordered Date MISCELLANEOUS DISCHARGE INSTRUCTIONS 1 12/13/2018 documented in this encounter Additional Health Concerns Infection Onset Date Last Indicated Resolved Time MRSAComment: IP note: risk factors - DM, impaired mobility, intermediate resident 02/25/2015 02/25/2015 Pos nares 02/25/2015 Neg nares 11/02/18 Neg nares 12/13/18 [place] 12/13/18 documented as of this encounter Care Teams Outdoor Adventure Leader Relationship Specialty Start Date End Date Pio Odonnell MD PCP - General 10/31/18 04/20/[address] [place] [address] documented as of this encounter
--- OUTSIDE RECORDS SUMMARY | 2022-03-17 00:37 | XMS_ITS | Encounter Summary ---
:1960 Author Organization [facility] Address [address] [place] [address] Care Team Providers Name Role Phone Pio Odonnell MD Primary Care Provider [phone] Reason for Visit Reason Onset Date Comments Appointment Related 11/06/2018 Encounter Details Date Type Department Care Team Description 11/06/2018 Telephone [facility] Reji Foster ntment Related Urology - [facility] Osiris Fletcher MD [address] [place] [address] [facility] [address] [place] [address] (Wo rk) Social History Tobacco [...] encounter Miscellaneous Notes Telephone Encounter - Kylie Jensen - 11/18/2018 1348 EST Spoke with wicho Bynum of appointment date and time of FUR with Dr. Foster. Telephone Encounter - Vika Mar - 11/06/2018 0937 EST Please return call regarding the 11/[address] Foster documented in this encounter Plan of Treatment Upcoming Encounters Date Type Specialty Care Team Description 06/13/2022 Appointment Radiology 06/13/2022 Office Visit Urology Reji Foster MD [address] [place] [address], [address] [place], [place] [address] (Wo rk) documented as of this encounter Visit Diagnoses Not on filedocumented in this encounter Additional Health Concerns Infection Onset Date Last Indicated Resolved Time MRSAComment: IP note: risk factors - DM, impaired mobility, assisted resident 02/25/2015 02/25/2015 Pos nares 02/25/2015 Neg nares 11/02/18 Neg nares 12/13/18 [place] 12/13/18 documented as of this encounter Care Teams Welder Production Line Combination Relationship Specialty Start Date End Date Pio Odonnell MD PCP - General 10/31/18 04/20/21 [address] [place] [address] documented as of this encounter
--- OUTSIDE RECORDS SUMMARY | 2022-03-17 00:37 | XMS_ITS | Encounter Summary ---
:1960 Author Organization [facility] Address [address] [place] [address] Care Team Providers Name Role Phone Pio Odonnell MD Primary Care Provider [phone] Reason for Visit Reason Onset Date Comments Discuss Surgery 12/11/2018 Encounter Details Date Type Department Care Team Description 12/11/2018 Telephone [facility] Reji Foster Surgery Urology - [facility] Osiris Fletcher MD [address] [place] [address] [facility] [address] [place] [address] (Wo rk) Social History Tobacco [...] Notes Telephone Encounter - Kylie Jensen - 12/11/2018 5010 EDT Confirmed procedure with Mone at [facility] patient. Patient was instructed to check in at 3rd floor registration at 11:25 am for a procedure at 1:25 pm on 12/12/2018. Patient was instructed to have nothing to eat or liquids containing fats, including milk after midnight. The day of, patient can have water or other clear liquids until four hours before scheduled time of procedure. A light truck driver will be needed. documented in this encounter Plan of Treatment Upcoming Encounters Date Type Specialty Care Team Description 06/13/2022 Appointment Radiology 06/13/2022 Office Visit Urology Reji Foster MD [address] [place] [address], [address] [place], [place] [address] (Wo rk) documented as of this encounter Visit Diagnoses Not on filedocumented in this encounter Additional Health Concerns Infection Onset Date Last Indicated Resolved Time MRSAComment: IP note: risk factors - DM, impaired mobility, shelter resident 02/25/2015 02/25/2015 Pos nares 02/25/2015 Neg nares 11/02/18 Neg nares 12/13/18 [place] 12/13/18 documented as of this encounter Care Teams Processing Inspector Relationship Specialty Start Date End Date Pio Odonnell MD PCP - General 10/31/18 04/20/21 [facility] [place] [address] [place] [address] documented as of this encounter
--- OUTSIDE RECORDS SUMMARY | 2022-03-17 00:37 | XMS_ITS | Encounter Summary ---
:1960 Author Organization [facility] Address [address] [place] [address] Care Team Providers Name Role Phone Pio Odonnell MD Primary Care Provider [phone] Reason for Visit Reason Onset Date Comments Appointment Related 11/28/2019 Encounter Details Date Type Department Care Team Description 11/28/2019 Telephone [facility] Reji Foster ntment Related Urology - Main Osiris Fletcher MD [address] [phone] [facility] [address] [place] [address] (Wo rk) Social History Tobacco [...] Notes Telephone Encounter - Lesa Smith - 11/28/2019 1026 EST LM for Vicky at [facility], patient has follow up appointments on 01/29 check in at 0930 for 1000 scan, arrive with a full bladder, follow up with Dr Foster at 1100. documented in this encounter Plan of Treatment Upcoming Encounters Date Type Specialty Care Team Description 06/13/2022 Appointment Radiology 06/13/2022 Office Visit Urology Reji Foster MD 111 [facility], [facility], [address] [place] [address] (Wo rk) documented as of this encounter Visit Diagnoses Not on filedocumented in this encounter Additional Health Concerns Infection Onset Date Last Indicated Resolved Time MRSAComment: IP note: risk factors - DM, impaired mobility, custodial resident 02/25/2015 02/25/2015 Pos nares 02/25/2015 Neg nares 11/02/18 Neg nares 12/13/18 [place] 12/13/18 documented as of this encounter Care Teams Winch Stripper Relationship Specialty Start Date End Date Pio Odonnell MD PCP - General 10/31/18 04/20/[address] [place] [address] documented as of this encounter
--- OUTSIDE RECORDS SUMMARY | 2022-03-17 00:37 | XMS_ITS | Encounter Summary ---
:1960 Author Organization [facility] Address [address] [place] [address] Care Team Providers Name Role Phone Pio Odonnell MD Primary Care Provider Reason for Visit Reason Onset Date Comments Patient Information Update 04/01/2020 Referral Request 04/01/2020 Encounter Details Date Type Department Care Team Description 04/01/2020 Telephone [facility] Norbert Pak Chi, MD Patient Information Rheumatology & [address] [place] [address] Update; Ref erral Immunology - [facility] Request [facility], [address], [address] [place], [place] [address] [place] [address] [phone] (Wo rk) Social History Tobacco Use [...] this encounter Miscellaneous Notes Telephone Encounter - Norbert Pak Chi, MD - 04/02/2020 0740 EDT Could someone contact [facility] and see if they have a CT of the head they can forward to us? It was supposedly done within the past several months. They forwarded CT of the abdomen. elephone Encounter - Norbert Pak Chi, MD - 04/01/[address] Osorio at [facility]: hosptialised for severe UTI/renal infection. 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 She was lost to f/u and has maintained on those meds. Repeat CTA several days ago at [facility] shows CVAs new since [address] Osorio and requests she be followed up here again for management. Pt's cellcept was held for the renal infection; advised restarting if the infection has been cleared. The maintenance cellcept and prednisone doses have been low fortunately, but unclear whether she needs to be on anything at all. Pt is at risk for urosepsis due to indwelling lozada catheter and hx of nephrolithiasis. Will ask for CTA images to be pushed here. Will have her seen here in [facility] again- possibly easier by video since she is hemiplegic and nursinghome bound. She resides at the [facility] in [place], [place]- so would have to arrange with them. documented in this encounter Plan of Treatment Upcoming Encounters Date Type Specialty Care Team Description 06/13/2022 Appointment Radiology 06/13/2022 Office Visit Urology Reji Foster MD 111 [facility], [facility], [address] [place] [address] (Wo rk) documented as of this encounter Visit Diagnoses Not on filedocumented in this encounter Additional Health Concerns Infection Onset Date Last Indicated Resolved Time MRSAComment: IP note: risk factors - DM, impaired mobility, long term resident 02/25/2015 02/25/2015 Pos nares 02/25/2015 Neg nares 11/02/18 Neg nares 12/13/18 [place] 12/13/18 documented as of this encounter Care Teams Bleacher Lard Relationship Specialty Start Date End Date Pio Odonnell MD PCP - General 10/31/18 04/20/[address] [place] [address] documented as of this encounter
--- OUTSIDE RECORDS SUMMARY | 2022-03-17 00:37 | XMS_ITS | Encounter Summary ---
:1960 Author Organization [facility] Address [address] [place] [address] Care Team Providers Name Role Phone Pio Odonnell MD Primary Care Provider [phone] Reason for Visit Reason Onset Date Comments Appointment Related 11/29/2018 Appt 12/05 Encounter Details Date Type Department Care Team Description 11/29/2018 Telephone [facility] Reji Foster Appoi ntment Related Urology - Main Osiris Fletcher MD (Appt 12/05) 111 [facility] [address] [phone] [facility] 5 [place] [address] (Wo rk) Social History Tobacco [...] Notes Telephone Encounter - Kylie Jensen - 11/29/2018 1526 EST Spoke with Mone from [facility], advised surgery is booked for 12/05/2018. She advised the patient is going to have her H&P appointment on Sunday12/02/18. Faxed over the H&P paperwork as requested. elephone Encounter - Jazmyn Payne - 11/29/2018 1022 EST Mone called to discuss the 12/05 appt. She is aware that we don't have exact times but she has questions about what if the date changes what if.. She has to arrange transportatin documented in this encounter Plan of Treatment Upcoming Encounters Date Type Specialty Care Team Description 06/13/2022 Appointment Radiology 06/13/2022 Office Visit Urology Reji Foster MD 111 [facility], [facility], Level 5 [place], [place] [address] (Wo rk) documented as of this encounter Visit Diagnoses Not on filedocumented in this encounter Additional Health Concerns Infection Onset Date Last Indicated Resolved Time MRSAComment: IP note: risk factors - DM, impaired mobility, alf resident 02/25/2015 02/25/2015 Pos nares 02/25/2015 Neg nares 11/02/18 Neg nares 12/13/18 Alexander Nair 12/13/18 documented as of this encounter Care Teams Mercury Cracking Tester Relationship Specialty Start Date End Date Pio Odonnell MD PCP - General 10/31/18 04/20/[address] [place] [address] documented as of this encounter
--- OUTSIDE RECORDS SUMMARY | 2022-03-17 00:37 | XMS_ITS | Encounter Summary ---
:1960 Author Organization [facility] Address [address] [place] [address] Care Team Providers Name Role Phone Pio Odonnell MD Primary Care Provider [phone] Pina Taylor MD Primary Care Provider Maricel Deshpande APRN Primary Care Provider [phone] Encounter Details Date Type Department Care Team Description 03/31/2020 Lab Requisition [facility] Outr Resulting Lab, Pathology & Laboratory Provider [facility] [address] [place], [place] [address] Social History Tobacco Use Types Packs/Day Years [...] Urology Reji Foster MD 111 [facility], [facility], Level 5 [place], [place] [address] (Wo rk) documented as of this encounter Procedures Procedure Name Priority Date/Time Associated Comments Diagnosis HIV 1/2 ANTIGEN AND Routine 03/31/2020 6:13 EDT R esults for this ANTIBODY, 4TH procedure are in GENERATION the results section. documented in this encounter Results HIV 1/2 ANTIGEN AND ANTIBODY, 4TH GENERATION (03/31/2020 6:13 EDT) HIV 1 and 2 Negative Negative [facility] Antibody/p24 Comment: LABORATORY Antigen, 4th SERVICES Generation If acute HIV-1 infection is suspected in a high risk ??patient, submit plasma specimen for HIV-1 RNA quantitation test. Fourth Generation assay performed on the Siemens Skillseta ur. Specimen Blood - Venous blood (substance) Performing Organization Address City/State/ZIP Code Phon e Number [facility] [address] [place] [address] SERVICES documented in this encounter Visit Diagnoses Not on filedocumented in this encounter Additional Health Concerns Infection Onset Date Last Indicated Resolved Time MRSAComment: IP note: risk factors - DM, impaired mobility, retirement resident 02/25/2015 02/25/2015 Pos nares 02/25/2015 Neg nares 11/02/18 Neg nares 12/13/18 [place] 12/13/18 R/O COVID-19 03/26/2020 03/26/2020 03/31/2020 22:17 EDT R/O COVID-04/02/2020 04/02/2020 04/07/2020 22:18 EDT VREComment: IP note: 05/19/2021 05/19/2021 11/19/2021 22:15 EST Pos urine 05/12/21 Pos kidney fluid 05/19/21 Tamara Castro RN 05/24/21 documented as of this encounter Care Teams Business Librarian Relationship Specialty Start Date End Date Pio Odonnell MD PCP - General 10/31/18 04/20/[address] [place] [address] Pina Taylor MD PCP - General 04/21/21 10/03/21 [address] [place] [phone] Maricel Deshpande APRN PCP - General Geriatric Medicine 10/04/21 [facility] [address] [address] documented as of this encounter
--- OUTSIDE RECORDS SUMMARY | 2022-03-17 00:37 | XMS_ITS | Encounter Summary ---
:1960 Author Organization [facility] Address [address] [place] [address] Care Team Providers Name Role Phone Pio Odonnell MD Primary Care Provider [phone] Encounter Details Date Type Department Care Team Description 12/03/2018 Pre-Procedure Orders [facility] Timbo Foster an Encounter [facility] Osiris Fletcher MD 111 [facility] [address] [phone] [facility] [place] [facility] 5 [place] [address] (Wo rk) Social History Tobacco [...] Office Visit Urology Reji Foster MD 111 [facility], [facility], Level [address] [place], [place] [address] (Wo rk) documented as of this encounter Visit Diagnoses Not on filedocumented in this encounter Additional Health Concerns Infection Onset Date Last Indicated Resolved Time MRSAComment: IP note: risk factors - DM, impaired mobility, longterm resident 02/25/2015 02/25/2015 Pos nares 02/25/2015 Neg nares 11/02/18 Neg nares 12/13/18 N [place] 12/13/18 documented as of this encounter Care Teams Wood Preparation Supervisor Relationship Specialty Start Date End Date Pio Odonnell MD PCP - General 10/31/18 04/20/[address] [place] [address] documented as of this encounter
--- OUTSIDE RECORDS SUMMARY | 2022-03-17 00:37 | XMS_ITS | Encounter Summary ---
:1960 Author Organization [facility] Address [address] [place] [address] Care Team Providers Name Role Phone Pio Odonnell MD Primary Care Provider [phone] Reason for Visit Reason Onset Date Comments Discuss Surgery 12/06/2018 Encounter Details Date Type Department Care Team Description 12/06/2018 Telephone [facility] Reji Foster Surgery Urology - [facility] Osiris Fletcher MD [address] [place] [address] [facility] Level 5 [place] [address] (Wo rk) Social History Tobacco [...] Notes Telephone Encounter - Kylie Jensen - 12/06/2018 6936 EDT Spoke with Mira at the [facility], advised patient is setup for a second procedure on 12/12/2018 and will call the day before the surgery with the arrival time. 12/12/2018 for surgery date ok as per Dr. Foster. documented in this encounter Plan of Treatment Upcoming Encounters Date Type Specialty Care Team Description 06/13/2022 Appointment Radiology 06/13/2022 Office Visit Urology Reji Foster MD 111 [facility], [facility], Level 5 [place], [place] [address] (Wo rk) documented as of this encounter Visit Diagnoses Not on filedocumented in this encounter Additional Health Concerns Infection Onset Date Last Indicated Resolved Time MRSAComment: IP note: risk factors - DM, impaired mobility, correction resident 02/25/2015 02/25/2015 Pos nares 02/25/2015 Neg nares 11/02/18 Neg nares 12/13/18 N [place] 12/13/18 documented as of this encounter Care Teams Machine Ironer Relationship Specialty Start Date End Date Pio Odonnell MD PCP - General 10/31/18 04/20/21 [facility] [place] [address] documented as of this encounter
--- OUTSIDE RECORDS SUMMARY | 2022-03-17 00:37 | XMS_ITS | Encounter Summary ---
:1960 Author Organization [facility] Address [address] [place] [address] Care Team Providers Name Role Phone Pio Odonnell MD Primary Care Provider [phone] Reason for Visit Reason Onset Date Comments Other 10/31/2018 Encounter Details Date Type Department Care Team Description 10/31/2018 Telephone [facility] Germain Santoyo MD Other [address] [place] [address] [address] [place], [place] [address] (Wo rk) Social History [...] this encounter Miscellaneous Notes Telephone Encounter - Germain Perez MD - 10/31/[address] Suggs from [facility] for Tx 58 y/o female with h/o CVA (residual dysarthria and dysphagia) admitted for septic shock which was thought 2/2 pneumonia vs UTI. Off pressors and doing much better on IV abx hemodynamically stable with recent BP of 119/74 with HR in 80s. mentating fine Renal imaging showed 15 mm staghorn calculus in right pelvis. No hydro. Urology recommended medicineadm and pt needs stone Mx Accepted in Tx Germain Perez MD documented in this encounter Plan of Treatment Upcoming Encounters Date Type Specialty Care Team Description 06/13/2022 Appointment Radiology 06/13/2022 Office Visit Urology Reji Foster MD 111 [facility], Level 5 [place], [place] [address] (Wo rk) documented as of this encounter Visit Diagnoses Not on filedocumented in this encounter Additional Health Concerns Infection Onset Date Last Indicated Resolved Time MRSAComment: IP note: risk factors - DM, impaired mobility, skilled nursing resident 02/25/2015 02/25/2015 Pos nares 02/25/2015 Neg nares 11/02/18 Neg nares 12/13/18 [place] 12/13/18 documented as of this encounter Care Teams Escapement Maker Relationship Specialty Start Date End Date Pio Odonnell MD PCP - General 10/31/18 04/20/21 [facility] [place] [address] documented as of this encounter
--- OUTSIDE RECORDS SUMMARY | 2022-03-17 00:37 | XMS_ITS | Encounter Summary ---
:1960 Author Organization [facility] Address [address] [place] [address] Care Team Providers Name Role Phone Pio Odonnell MD Primary Care Provider [phone] Reason for Visit (Routine) - Receiving Office to Obtain Authorization Specialty Diagnoses / Procedures Referred By Contact Refer red To Contact Procedures Unknown, Provider, CT OUTSIDE IMAGES NEURO Phone: Referral ID Status Reason Start Expiration Visits Visits Date Date Requested Authorized [id number] Receiving Office 04/01/2020 1 1 to Obtain Authorization Encounter Details Date Type Department Care Team Description 03/30/2020 Hospital Encounter [facility] Radiology - Main [facility] [address] [place] [address] Social History Tobacco Use Types Packs/Day Years [...] suspensionIndications: labs done every 3 Vasculitis, primary 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 documented in this encounter Results CT OUTSIDE IMAGES NEURO (04/01/2020 15:56 EDT) Specimen Narrative QUOCSON - 04/01/2020 15:56 EDT This is a non-reportable exam. Performing Organization Address City/State/ZIP Code Phon e Number [place] documented in this encounter Visit Diagnoses Not on filedocumented in this encounter Additional Health Concerns Infection Onset Date Last Indicated Resolved Time MRSAComment: IP note: risk factors - DM, impaired mobility, snf resident 02/25/2015 02/25/2015 Pos nares 02/25/2015 Neg nares 11/02/18 Neg nares 12/13/18 N [place] 12/13/18 R/O COVID-19 03/26/2020 03/26/2020 03/31/2020 22:17 EDT documented as of this encounter Care Teams Reflexologist Relationship Specialty Start Date End Date Pio Odonnell MD PCP - General 10/31/18 04/20/[address] [place] [address] documented as of this encounter
--- OUTSIDE RECORDS SUMMARY | 2022-03-17 00:37 | XMS_ITS | Encounter Summary ---
:1960 Author Organization [facility] Address [address] [place] [address] Care Team Providers Name Role Phone Pio Odonnell MD Primary Care Provider [phone] Pina Taylor MD Primary Care Provider Maricel Deshpande APRN Primary Care Provider [phone] Encounter Details Date Type Department Care Team Description 03/30/2020 Lab Requisition [facility] Outr Resulting Lab, Pathology & Laboratory Provider [facility] [address] [place] [address] Social History Tobacco Use Types Packs/Day Years [...] Office Visit Urology Reji Foster MD 111 [facility], [facility], Level [address] [place], [place] [address] (Wo rk) documented as of this encounter Procedures Procedure Name Priority Date/Time Associated Diagnosis Comme nts HCV RNA DETECT Today 03/30/2020 4:45 EDT Result s for this QUANT procedure are i n the results section. CHRONIC HEPATITIS Routine 03/30/2020 4:45 EDT Res ults for this PROFILE, UNKNOWN procedure a re in TYPE the results section. documented in this encounter Results (ABNORMAL) HCV RNA DETECT QUANT (03/30/2020 4:45 EDT) Pathologist [facility] HCV RNA Qualitative Detected (A) Undetected [facility] HCV RNA 31,222,331 (H) Undetected IU/mL [facility] LABORATORY SERVICES Specimen Blood - Venous blood (substance) Narrative [facility] - 04/01/2020 14:18 EDT The quantification range of this assay i s 15 IU/mL to 100,000,000 IU/mL. ??Testing was performed on the TOM Ampliprep/COB TaqMan HCV v2.0 ([employer] Performing Organization Address City/State/ZIP Code Phon e Number [facility] [address] [place] [address] SERVICES (ABNORMAL) CHRONIC HEPATITIS PROFILE, UNKNOWN TYPE (03/30/2020 4:45 EDT) Hep B Surface Ag Negative Negative [facility] Hep B Surface Ab, <3.1 See Note [facility] Quantitative Comment: mIU/mL [place] Reference Range for Hep B Surface Ab, Quant: LABORATORY SERVICES Positive: >= 10.0 mIU/mL Negative: ??< 10.0 mIU/mL Patient is presumed to not be immune to infection with Hepatitis B Virus. Hep B Surface Ab, Negative See Note [facility] Qualitative Comment: [place] [facility] Reference Range for Hep B Surface Ab, Qual: SERVICES Unvaccinated: ??Negative Vaccinated: ??Positive Hepatitis B Core Negative Negative [facility] Ab, Total [facility] Hep C Antibody Reactive (A) Negative [facility] Comment: [place] Supplemental testing for HCV RNA is ordered to r ule out active HCV infection. LABORATORY SERVICES Specimen Blood - Venous blood (substance) Performing Organization Address City/State/ZIP Code Phon e Number [facility] [address] [place] [address] SERVICES documented in this encounter Visit Diagnoses [...] documented as of this encounter Care Teams Crown Ironer Relationship Specialty Start Date End Date Pio Odonnell MD PCP - General 10/31/18 04/20/[address] [place] [address] Pina Taylor MD PCP - General 04/21/21 10/03/21 [address] [place] [phone] Maricel Deshpande APRN PCP - General Geriatric Medicine 10/04/21 [facility] [place] [address] [place] [address] documented as of this encounter
--- OUTSIDE RECORDS SUMMARY | 2022-03-17 00:37 | XMS_ITS | Encounter Summary ---
:1960 Author Organization [facility] Address [address] [place] [address] Care Team Providers Name Role Phone Pio Odonnell MD Primary Care Provider [phone] Reason for Visit Reason Onset Date Comments Discuss Surgery 12/04/2018 Encounter Details Date Type Department Care Team Description 12/04/2018 Telephone [facility] Reji Foster Surgery Urology - [facility] Osiris Fletcher MD [address] [place] [address] [facility] Level [address] [place] [address] (Wo rk) Social History Tobacco [...] Notes Telephone Encounter - Kylie Jensen - 12/04/2018 0944 EDT Confirmed procedure with patient. Patient was instructed to check in at 3rd floor registration at 7:00 am for a procedure at 8:25 am on 12/05/2018. Patient was instructed to have nothing to eat or liquids containing fats, including milk after midnight. The day of, patient can have water or other clear liquids until four hours before scheduled time of procedure. A sweeper driver will be needed. documented in this encounter Plan of Treatment Upcoming Encounters Date Type Specialty Care Team Description 06/13/2022 Appointment Radiology 06/13/2022 Office Visit Urology Reji Foster MD [address] [place] [address], [address] [place], [place] [address] (Wo rk) documented as of this encounter Visit Diagnoses Not on filedocumented in this encounter Additional Health Concerns Infection Onset Date Last Indicated Resolved Time MRSAComment: IP note: risk factors - DM, impaired mobility, correction resident 02/25/2015 02/25/2015 Pos nares 02/25/2015 Neg nares 11/02/18 Neg nares 12/13/18 N [place] 12/13/18 documented as of this encounter Care Teams Community Engagement Representative Relationship Specialty Start Date End Date Pio Odonnell MD PCP - General 10/31/18 04/20/21 [address] [place] [address] documented as of this encounter
--- OUTSIDE RECORDS SUMMARY | 2022-03-17 00:37 | XMS_ITS | Encounter Summary ---
:1960 Author Organization [facility] Address [address] [place] [address] Care Team Providers Name Role Phone Pio Odonnell MD Primary Care Provider [phone] Encounter Details Date Type Department Care Team Description 11/11/2018 Results Only Imaging [facility]- Unknown, PRISM ProviderMD [phone] Social History Tobacco Use Types Packs/Day Years [...] Office Visit Urology Reji Foster MD 111 [facility], [facility], Level [address] [place], [place] [address] (Wo rk) Pending Results Name Type Priority Associated Diagnoses Date/Ti me OUTSIDE IMAGES - OTHER Imaging 11/11 8:33 EST CHEST OUTSIDE IMAGES - OTHER Imaging 11/11 8:33 EST CHEST documented as of this encounter Visit Diagnoses Not on filedocumented in this encounter Additional Health Concerns Infection Onset Date Last Indicated Resolved Time MRSAComment: IP note: risk factors - DM, impaired mobility, custodial resident 02/25/2015 02/25/2015 Pos nares 02/25/2015 Neg nares 11/02/18 Neg nares 12/13/18 N [place] 12/13/18 documented as of this encounter Care Teams Carcass Trimmer Relationship Specialty Start Date End Date Pio Odonnell MD PCP - General 10/31/18 04/20/21 [address] [place] [address] documented as of this encounter
--- OUTSIDE RECORDS SUMMARY | 2022-03-17 00:38 | XMS_ITS | Encounter Summary ---
:1960 Author Organization [facility] Address [address] [place] [address] Care Team Providers Name Role Phone Lamberto Henderson MD Primary Care Provider Encounter Details Date Type Department Care Team Description 05/28/2015 Hospital Encounter [facility] Nate Ortiz Cardiovascular Unit MD [address] [facility] [address] [place] [address] [address] [phone] [facility] [address] [place] [address] (Wo rk) Social History Tobacco [...] Sign Reading Time Taken Comments Blood Pressure 111/77 05/28/2015 1002 EDT Pulse - - Temperature 36.1 ??C (97 ??F) 05/28/2015 1000 EDT Respiratory Rate 16 05/28/2015 0910 EDT Oxygen Saturation 100% 05/28/2015 1002 EDT Inhaled Oxygen Concentration - - Weight 70.9 kg (156 lb 4.9 oz) 05/28/2015 0703 EDT Height 165.1 cm (5' 5) 05/28/2015702 EDT Body Mass Index 26.01 05/28/2015702 EDT documented in this encounter Functional Status [...] mental, or emotional condition, do Ye s 02/25/2015 you have difficulty doing errands alone such as visiting a doctor's office or shopping? (15 years old or older) Cognitive Status Response Date of Assessment Because of a physical, mental, or emotional condition, do Ye s 02/25/2015 you have serious difficulty concentrating, remembering, or making decisions? (5 years old or older) documented as of this encounter Discharge Instructions Jazmyn Rodriguez RN - 05/28/2015 DISCHARGE INSTRUCTIONS FOR TUBE MANAGEMENT Tube Placed - Gallbladder tube Procedure Site - Abdomen Physician Performing Procedure - Lit Rand MD and Luis Sanchez MD The most important element of tube care is good hand washing before and after tube care. Caring for your tube at home 1. INSTILLATION - You will be taught how to instill 10 cc sterile saline into the tube 3 times, weekly. If at the time of discharge you are unable to perform this, your nurses will arrange for the VNA nurse to care for your tube. Flushing prevents bits of debris from closing off the holes in the tube and helps to keep it open and working. 2. KEEPING THE TUBES SECURE - To avoid them from getting pulled out, all tubes need to be secured tothe skin at all times. NEVER leave a tube dangling, as it is at risk or in danger of being caught and pulled out. If this occurs, place a Band-Aid or sterile dressing over the site and call the Radiology Department. The number below is for days and evenings, nights, weekends, and holidays. 3. WOUND CARE - Always put gauze around the tube next to the skin (under disc) then tape the disc securely to the skin. Change dressing 3 times, weekly and whenever necessary. Clean around the tube with soap and water. (Use a mild non- perfumed soap). Apply bacitracin ointment to the skin around the tube insertion site if it looks red and irritated. If drainage bag is used, secure it so it does not pull on the tube, especially while walking. It is preferable to secure the bag on the thigh not the calf. 4. EMPTYING- Empty the bag when it is no more than ?? full. The bag and drainage tubing should be rinsed with warm water and couple drops of white vinegar at least twice a week. We recommend having twodrainage bags so you can rinse one while using the other. [You can purchase extra bags at the [facility],Main out patient pharmacy,] 5. SEDATION - If the day you are being discharged with your tube you have received sedation, DO NOT DRIVE or make legal decisions today. You may resume normal activity tomorrow. 6. DIET- You may resume you regular diet. If your drain puts out large volumes of fluid you may be at risk for dehydration. Remember to drink plenty of non- caffeinated, non-alcoholic beverages (caffeine and alcohol can dehydrate you more). 7. SHOWER - You may shower, tape saran wrap or foil tightly over the dressing. If the dressing becomes wet, replace it with a dry one. 8. DO NOT make any legal decisions today as you have received sedating medication. Your lozada catheter needs to be changed by the ordering prescribers group - whether it's your visiting nurse or your primary care group doctor. It is not catheter placed by our interventional radiologygroup, and therefore cannot be changed by our department. CALL THE [facility]VENT[facility] RADIOLOG[facility] FOR - (Call visiting nurse first) A. Tube drainage decreases severely or stops and does not clear with irrigating tube. B. You have sustained a fever (100.4 F or 38 C) C. There is a leakage around the tube at the skin. D. You have increased pain. E. If the tube becomes dislodged, DO NOT try to push it back in or replace it. You should plan to come back and have your tube checked or changed on . If you cannot come at this time, please call to change your appointment. ?? IF YOU HAVE ANY QUESTIONS OR CONCERNS REGARDING THE PROCEDURE, PLEASE CALL THE [facility]VENT[facility] RADIOLOG[facility] AT [phone], OPTION #3. SOMEONE IS AVAILABLE TO TAKE YOUR CALL 24 HOURS A DAY. OUTPATIENT SUPPLY REFERENCE Common supplies you may need at home. These are likely found at a Drug store or Medical Supply Store. ?? 10-12cc syringes ?? 4x4 drain sponge ?? 4x4 boat gauze ?? 2 inch tape The following supplies are not as common. You may need to go to a medical supply store to inquire ifthey have them or if they may be able to order them for you. ?? Y adapters ?? Blue cap ?? capacitor repairer ?? Drainage Bag - Connector tubing and bag are one item. These are available at - The [facility], Main outpatient pharmacy on the 3rd floor of the [facility] building. This item CAN NOT be added to your bill, you must pay at the time you pick this up. Payment options are garza, check or charge. documented in this encounter Medications at Time of Discharge Medication Sig Dispensed Refills Start Date End Date buPROPion (WELLBUTRIN SR) Take 450 mg by [...] Tab by mouth 0 Minerals tablet daily aripiprazole (ABILIFY) 15 Take 30 mg by mouth 0 0 03/31/2011 11/01/2018 mg tablet at bedtime. divalproex (DEPAKOTE Take 125 mg by mouth 2 times daily 0 11/01/2018 SPRINKLES) 125 mg capsule docusate sodium (COLACE) Take 100 mg by mouth 2 times daily 0 03/31/2011 11/02/2018 100 mg capsule INSULIN Inject 16 Units into the skin 0 201411/02/2018 GLARGINE,HUM.REC.ANLOG (LANTUS SUBQ) magnesium oxide (MAG-OX) Take 400 mg by 0 11/02/2018 400 mg tablet mouth 2 times daily MULTI-VITAMIN ORAL Take by mouth. 0 mycophenolate mofetil Take 0.5 mL by 3 Bottle 1 06/12/2013 04/20/2021 (CELLCEPT) 200 mg/mL mouth daily. Need suspensionIndications: labs done every 3 Vasculitis, primary ADMISSIONS ASSISTANT months (HCC-CMS) ([facility]) nitroGLYCERIN (NITROSTAT) Place 0.4 mg under 0 11/02/2018 0.4 mg SL tablet the tongue every 5 minutes as needed. oxybutynin (DITROPAN XL) Take 15 mg by mouth 0 11/02/2018 15 mg CR tablet 2 times daily oxyCODONE (ROXICODONE) 5 Take 5 mg by mouth 0 07/30/2015 mg immediate release every 4 hours as tablet needed for Pain PEG 3350-Electrolytes Take 17 g by mouth 0 11/02/2018 (MIRALAX) 17 gram packet daily as needed (constipation) potassium chloride Take 20 mEq by 0 (KAYCIEL) 20 mEq/15 mL mouth 2 times daily solution predniSONE (DELTASONE) 5 Take 2.5 mg by 0 11/04/2018 mg tablet mouth daily. senna (SENNA) 8.6 mg Take 1 Tab by mouth daily as needed (constipat ion) 0 03/31/2011 11/02/2018 tablet simvastatin (ZOCOR) 20 mg Take 20 mg by mouth at bedtime 0 11/02/2018 tablet traMADol (ULTRAM) 50 mg Take 50 mg by mouth 0 11/01/2018 tablet every 6 hours as needed for Pain zolpidem (AMBIEN) 5 mg Take 5 mg by mouth 0 07/30/2015 tablet at bedtime as needed for Sleep documented as of this encounter Discharge Disposition Disposition Code Departure Means Destination Home or Self Care documented in this encounter Progress Notes Janeth Pineda RN - 05/28/2015 0943 EDT 0940 Report received from Kaylah Casper RN to assume care of the pt. Pt tolerating a popcycle without difficulty. 1000 Discharge instructions reviewed with pt, pt verbalizes understanding asks to have her called so instructions can be reviewed with him as well. 1009 Called pt's Laci to review discharge instructions, denies any questions or concerns at this time. 1015 Pt complaints of pain in her abdomen rated 7/10, which is only slightly more uncomfortable thanher baseline. Pt given [place] 1 tab prior to discharge (see mar) 1025 IV DC, pt assisted with changing. Awaiting ambulance ride home 1056 Pt is now leaving unit to go home with ambulance via stretcher aylah Zuniga RN - 05/28/2015 0921 EDT 0920 Pt arrives in stable condition for recovery in CVU. Call mariano in reach - TV on per Pt request -Pain med also requested by Pt - MD notified - Dressing CDI 0935 Pt tolerating PO - waiting for Pharmacy to Verify Pain Med 0940 Report given to XIOMARA ALLAN Jazmyn Kim RN - 05/28/2015 0851 EDT Pt brought to angio 24 at 0820 after correctly identifying. Pt in agreement with plan for cholecystostomy tube upsize with moderate sedation. Pt's allergies, med list, labs, NPO status, H&P assessed. Pt verbalizes understanding of procedure - all questions answered. Pt positioned supine on procedure table - safety strap in place and reports 6/10 right arm pain from my . Pt's extremities on pads, heels elevated off of procedure table. Pt prepped with dynahex by Basil Pina. 0850 - Time out and procedure started. (celine sanchez, heather) 0907 - Procedure ended. Cholecystostomy tube upsize - 14 fr APD placed to bag. Eva/sutures/gauze/hyapfix. All tubing secured away from skin. Skin insertion site slightly red - tube was pulled out 8 cm - sutures were no longer intact. Pt tolerated procedure very well with Versed 3.5 mg IV and Fentanyl 75 mcg IV over 33 minutes. Vancomycin 1 gm given prior to procedure. No bleeding noted. Report called to janeth in CVU. Pt transferred to CVU in stable condition. Pt requests pain medication stronger than tylenol. JBA aware F/u - 07/09 0700 for another tube upsize. aylah Gaming RN - 05/28/2015 0655 EDT 0650 Pt arrives via ambulance stretcher to CVU rm 3. 6/10 right arm pain r/t about a month ago her was pulling on it trying to straighten it out calling it physical therapy. Ginger states sheis paralyzed and it has hurt ever since. Metal plate in neck and right foot 0820 Pt transported to procedure Bushra pollard RN - 05/27/2015 1354 EDT Pre call placed regarding Karla Tube Change/ upsize scheduled for 05/28/15 at 0700. Patient received information on regarding from Arrive registration - 0645 Patient being transported to and from via ambulance service, unable to state name of transport company. NPO - Last Solid Food: 0000 Last Fat-free Clear Liquids: 0400 Medications - take prescription medications with a small amount of water the morning of procedure. Instructions given regarding Lantis dosing. states patient does not use Bpap or Cpap machine use at home. Instructed to bring current medication list, leave all valuables at home and arrive with a fire truck driver. Suggested patient shower with antimicrobial soap. CVU phone number left for questions documented in this encounter H&P Notes Angel Sanchez MD - 05/28/2015 0913 EDT Sedation for Procedure History & Physical Date: 05/28/2015 Time: 9:14 Location: IR Planned Procedure: choley tube upsize Chief Complaint/Indications for Procedure: upsizing tube for future percutaneous gall stone removal History: calculous cholecystitis Previous Complication with Sedation and/or Anesthesia? No Allergies: Allergies Allergen Reactions ??? Darvocet A500 [Propoxyphene N-Acetaminophen] Nausea And Vomiting ??? Methadone ??? Naproxen Does not work ??? Penicillins ??? Sulfa (Sulfonamide Antibiotics) ??? Tylox [Oxycodone-Acetaminophen] itching Current Medications: Prescriptions prior to admission Medication Sig Dispense Refill Last Dose ??? aripiprazole (ABILIFY) 15 mg tablet Take 30 mg by mouth at bedtime. 05/28/2015 ??? buPROPion (WELLBUTRIN SR) 150 mg SR tablet Take 150 mg by mouth 2 times daily 05/28/2015 ??? carbidopa-levodopa (SINEMET) 25-100 mg per tablet Take 1 Tab by mouth 4 times daily 05/28/2015 ??? divalproex (DEPAKOTE SPRINKLES) 125 mg capsule Take 1,000 mg by mouth 2 times daily Unknown ??? docusate sodium (COLACE) 100 mg capsule Take 100 mg by mouth 2 times daily 05/27/2015 ??? [DISCONTINUED] ibuprofen (MOTRIN) 200 mg tablet Take 400 mg by mouth every 6 hours as needed Unknown ??? Lamotrigine 50 mg tablet extended release 24hr Take 50 mg by mouth 2 times daily Unknown ??? levothyroxine (SYNTHROID) 100 mcg tablet Take 100 mcg by mouth daily. Unknown ??? magnesium oxide (MAG-OX) 400 mg tablet Take 400 mg by mouth 2 times daily Unknown ??? MULTI-VITAMIN ORAL Take by mouth. Unknown ??? Multivitamins with Minerals tablet Take 1 Tab by mouth daily Unknown ??? mycophenolate mofetil (CELLCEPT) 200 mg/mL suspension Take 0.5 mL by mouth daily. Need labs doneevery 3 months 3 Bottle 1 Unknown ??? nitroGLYCERIN (NITROSTAT) 0.[address] 0.4 mg under the tongue every 5 minutes as needed. More than a month ??? [DISCONTINUED] ondansetron (ZOFRAN-ODT) 4 mg disintegrating tablet Take 4 mg by mouth every 8 hours as needed for Nausea Unknown ??? oxybutynin (DITROPAN XL) 15 mg CR tablet Take 15 mg by mouth 2 times daily 05/28/2015 ??? oxyCODONE (ROXICODONE) 5 mg immediate release tablet Take 5 mg by mouth every 4 hours as needed for Pain More than a month ??? PEG 3350-Electrolytes (MIRALAX) 17 gram packet Take 17 g by mouth daily as needed (constipation)Unknown ??? potassium chloride (KAYCIEL) 20 mEq/15 mL solution Take 20 mEq by mouth 2 times daily 05/27/2015 ??? predniSONE (DELTASONE) 5 mg tablet Take 2.5 mg by mouth daily. Unknown ??? senna (SENNA) 8.6 mg tablet Take 1 Tab by mouth daily as needed (constipation) Unknown ??? simvastatin (ZOCOR) 20 mg tablet Take 20 mg by mouth at bedtime 05/27/2015 ??? traMADol (ULTRAM) 50 mg tablet Take 50 mg by mouth every 6 hours as needed for Pain Past Month ??? zolpidem (AMBIEN) 5 mg tablet Take 5 mg by mouth at bedtime as needed for Sleep 05/27/2015 Past Medical History: Past Medical History Diagnosis Date ??? HTN (hypertension) ??? DM (diabetes mellitus screen) ??? Smoking ??? Bipolar affective disorder ??? Anxiety ??? Headache(784.0) ??? Lumbar disc disease ??? Static encephalopathy ??? Morbid obesity ??? Diabetes mellitus Social History: Past Surgical History Procedure Laterality Date ??? Cervical spine surgery ??? Lumbar spine surgery ??? Foot surgery ??? Wrist surgery ??? Hip surgery Right Patient not sure of what surgery was performed History Substance Use Topics ??? Smoking status: Former Smoker -- 0.50 packs/day for 40 years Types: Cigarettes Quit date: 11/29/2010 ??? Smokeless tobacco: Never Used ??? Alcohol Use: No Comment: History of EtOH abuse Family History: Family History Problem Relation Age of Onset ??? Kidney Disease Neg Hx ??? Stroke Mother ??? Alcohol Abuse Sister ??? Alcohol Abuse Brother ??? Alcohol Abuse Father Review of Systems as pertinent: Physical: Vital Signs: BP 100/71 mmHg Temp(Src) 36.4 ??C (97.5 ??F) Resp 17 Ht 165.1 cm (65) Wt 70.9 kg (156 lb 4.9 oz) BMI 26.01 kg/m2 SpO2 99% Heart Examination: Cardiac Regularity: Regular Respiratory Examination: Respiratory Pattern: Regular Breath Sounds Right: Clear Breath Sounds Left: Clear Additional physical exam related to the proposed procedure, patient activity, disease state and treatment as pertinent: Assessment: Previous complications with sedation or anesthesia?: No Airway Concerns: None Anesthesia Classification: ASA 3 Plan: proceed with procedure. Patient also complaining about leaking lozada catheter. This is a usp problem and will be deferred to home health who manages her lozada. Fasting Time: Time of last liquid intake: 1999 Date of Last Liquid Intake: 05/27/15 Time of last solid intake: 1999 Date of last solid intake: 05/27/15 Patient Appropriate Candidate for Planned Sedation?: Yes Angel Sanchez MD 05/28/2015 9:14 documented in this encounter Procedure Notes Lit Rand MD - 05/28/2015 0915 EDT IR Procedure Note Procedure: Cholecystostomy tube upsize Date Performed: 05/28/2015 Radiologist/Human Resources Advisor(s): Giorgi/Trena Sedation/Anesthesia: Fentanyl/versed Time Out: A time-out was completed prior to procedure verifying correct patient, procedure, site, positioning, and special equipment if applicable. Estimated Blood Loss: Unless otherwise noted, there was no blood loss, specimens removed, cultures obtained, or drains retained. Specimens: none Fluoroscopy Time: 3.6 Contrast Volume: 10 mL Complications: none Condition: stable Post Procedure Diagnosis: cholelithiasis Findings: 1. Multiple gallstones 2. Patent cystic duct and CBD 3. Upsize 10F drain to 14F Recommendations: Next upsize in 6 weeks Angel Sanchez MD 05/28/2015 9:16 documented in this encounter Plan of Treatment Upcoming Encounters Date Type Specialty Care Team Description 06/13/2022 Appointment Radiology 06/13/2022 Office Visit Urology Reji Foster MD [address] [place] [address], [facility], [address] [place] [address] (Wo rk) documented as of this encounter Procedures Procedure Name Priority Date/Time Associated Comments Diagnosis GLUCOSE, GLUCOMETER Routine 05/28/2015 9:37 EDT R esults for this procedure are i n the results section. GLUCOSE, GLUCOMETER Routine 05/28/2015 7:27 EDT R esults for this procedure are i n the results section. documented in this encounter Results GLUCOSE, GLUCOMETER (05/28/2015 9:37 EDT) Glucose, 84 70 - 100 [facility] Fingerstick mg/dl LABORATORY SERVICES Integrated Logistics Programs Director [place] [id number]: [facility] Test Performed by LABORATORY Nursing Services SERVICES Specimen Blood Performing Organization Address City/[facility]/ZIP Code Phon e Number [facility] LABORATORY [address] [place] [address] SERVICES GLUCOSE, GLUCOMETER (05/28/2015 7:27 EDT) Glucose, 89 70 - 100 [facility] Fingerstick mg/dl LABORATORY SERVICES Integrated Logistics Programs Director [place] [id number]: [facility] Test Performed by LABORATORY Nursing Services SERVICES Specimen Blood Performing Organization Address City/[facility] Phon e Number [facility] [address] [place] [address] SERVICES documented in this encounter Visit Diagnoses Not on filedocumented in this encounter Administered Medications Inactive Administered Medications - up to 3 most recent administrations Medication Order MAR Action Action Date Dose Rate Site fentaNYL citrate (PF) 50 mcg/mL Given 05/28/2015 9:28 EDT 75 mcg injection 25-250 mcg 25-250 mcg, intravenous, ONCE PRN, 1 dose, Starting on Sun05/28/15 at 0811, Until Sun05/28/15 at 0928, Pain, radiology, Routine, Intraprocedure HYDROcodone-acetaminophen (NORCO) 5-325 mg Given 05/28/2015 10:1 2 EDT 1 Tablet tablet 1 Tab 1 Tablet, oral, EVERY 4 HOURS PRN, Starting on Sun05/28/15 at 0944, Until Sun05/28/15 at 1300, Pain, Routine, Postprocedure midazolam (PF) (VERSED) 1 mg/mL injection 0.5-10 Given 05/28/2015 9:28 EDT 3.5 mg mg 0.5-10 mg, intravenous, ONCE PRN, 1 dose, Starting on Sun05/28/15 at 0811, Until Sun05/28/15 at 0928, Sedation, Routine, Intraprocedure sodium chloride 0.9 % (NS) infusion New Bag 05/28/2015 8:05 EDT 50 mL/hr 50 mL/hr at 50 mL/hr, 50 mL/hr, intravenous, CONTINUOUS, Starting on Sun05/28/15 at 0715, Until Sun05/28/15 at 1300, Routine, Preprocedure vancomycin (VANCOCIN) IVPB 1,000 mg Given 05/28/2015 8:14 EDT 1,000 mg 1,000 mg (rounded from 1,063.5 mg = 15 m g/kg ? 70.9 kg), intravenous, Administer over 60 Minutes, NOW X1, 1 dose, On Sun05/28/15 at 0715, Routine, Preprocedure documented in this encounter Discontinued Medications Medication Sig Discontinue Reason Start Date End Date ibuprofen (MOTRIN) 200 mg Take 400 mg by mouth every 6 hours as needed Therapy completed 03/31/2011 05/28/2015 tablet ondansetron (ZOFRAN-ODT) 4 Take 4 mg by mouth Therapy completed 05/28/2015 mg disintegrating tablet every 8 hours as needed for Nausea documented as of this encounter Active and Recently Administered Medications Times are shown in EDT. Scheduled Medication Order 05/26/2015 05/27/2015 05/28/2015 vancomycin (VANCOCIN) IVPB 1,000 mg (COMPLETED) 813 (Given - Provider: Kaylah Gaming, XIOMARA) 1,000 mg (rounded from 1,063.5 mg = 15 m g/kg ? 70.9 kg), intravenous, for 60 Minutes, NOW X1, 1 dose, Sun05/28/15 at 0715, Routine Continuous Medication Order 05/26/2015 05/27/2015 05/28/2015 sodium chloride 0.9 % (NS) infusion (CANCELED) 0805 (New Bag - Provider: Shakila Camejo RN) at 50 mL/hr, 50 mL/hr, intravenous, CONT INUOUS, Starting Sun05/28/15 at 0715, Until Sun05/28/15 at 1300, Routine PRN Medication Order 05/26/2015 05/27/2015 05/28/2015 fentaNYL citrate (PF) 50 mcg/mL injection 25-250 mcg (COMPLETED) 927 (Given - Provider: Jazmyn Sales RN) 25-250 mcg, intravenous, ONCE PRN, 1 dos e, Starting Sun05/28/15 at 0811, Until Sun05/28/15 at 2359, Pain, radiology, Routine HYDROcodone-acetaminophen (NORCO) 5-325 mg tablet 1 Tab (CANCELE D) 1012 (Given - Provider: Janeth Pineda, RN) 1 Tab, oral, EVERY 4 HOURS PRN, Starting Sun05/28/15 at 0944, Until Sun05/28/15 at 1300, Pain, Routine midazolam (PF) (VERSED) 1 mg/mL injection 0.5-10 mg (COMPLETED) 09 (Given - Provider: Jazmyn Sales RN) 0.5-10 mg, intravenous, ONCE PRN, 1 dose , Starting Sun05/28/15 at 0811, Until Sun05/28/15 at 2359, Sedation, Routine documented in this encounter Orders Medications Ordered That Might Not Have Count Last Ord ered Date First Ordered Date Been Administered oxyCODONE-acetaminophen (PERCOCET) 5-325 1 015 mg per tablet 1 Tab Lab Orders Without Results Count Last Ordered Date Fir st Ordered Date POCT GLUCOSE 1 05/28/2015 Nursing Count Last Ordered Date First Ordered Date BEDREST 1 05/28/2015 CHANGE DRESSING 1 05/28/2015 INSERT PERIPHERAL IV 1 05/28/2015 NOTIFY PHYSICIAN (SPECIFY) 1 05/28/2015 NURSING COMMUNICATION 1 05/28/2015 OXYGEN THERAPY 1 05/28/2015 POST PROCEDURE SITE ASSESSMENT 1 05/28/2015 REMOVE IV 1 05/28/2015 Transfer Count Last Ordered Date First Ordered Date NOTIFY PPS OF DISCHARGE COMPLETE 1 05/28/2015 Discharge Count Last Ordered Date First Ordered Date DISCHARGE PATIENT 1 05/28/2015 documented in this encounter Additional Health Concerns Infection Onset Date Last Indicated Resolved Time MRSAComment: IP note: risk factors - DM, impaired mobility, jail resident 02/25/2015 02/25/2015 Pos nares 02/25/2015 Neg nares 11/02/18 Neg nares 12/13/18 N [place] 12/13/18 documented as of this encounter Care Teams Steward/Stewardess Economy Class Relationship Specialty Start Date End Date Lamberto Henderson MD PCP - General 07/17/11 03/21/[address] [place] [address] documented as of this encounter
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
--- OUTSIDE RECORDS SUMMARY | 2022-03-17 00:38 | XMS_ITS | Encounter Summary ---
:1960 Author Organization [facility] Address [address] [place] [address] Care Team Providers Name Role Phone Lamberto Henderson MD Primary Care Provider Encounter Details Date Type Department Care Team Description 03/18/2015 Hospital Encounter [facility] Unknown, P MD [facility] [address] [phone] [address] [place] [address] Social History Tobacco Use Types Packs/Day [...] a physical, mental, or emotional condition, do Kishore s 02/25/2015 you have difficulty doing errands alone such as visiting a doctor's office or shopping? (15 years old or older) Cognitive Status Response Date of Assessment Because of a physical, mental, or emotional condition, do Kishore pinzon 02/25/2015 you have serious difficulty concentrating, remembering, or making decisions? (5 years old or older) documented as of this encounter Discharge Diagnoses Diagnosis 574.10 CHOLELITH W CHOLECYS NEC[ICD-9-CM ] documented in this encounter Discharge Instructions InstructionsOTara Cantu RN - 03/18/2015 DISCHARGE INSTRUCTIONS FOR TUBE MANAGEMENT Tube Placed - Drainage Tube Procedure Site - Abdomen Physician Performing Procedure - Lit Rand and Tamir Howe PA-C The most important element of tube care [...] the bag when it is ?? full. The bag and drainage tubing should be rinsed with warm water and couple drops of white vinegar at least twice a week. We recommend having two drainage bags so you can rinse one while using the other. [You can purchase extra bags at the [facility],Main out patient pharmacy,] . 5. DIET- You may resume you regular diet. If your drain puts out large volumes of fluid you may be at risk for dehydration. Remember to drink plenty of non- caffeinated, non-alcoholic beverages (caffeine and alcohol can dehydrate you more). 6. SHOWER - You may shower, tape saran wrap or foil tightly over the dressing. If the dressing becomes wet, replace it with a dry one. 7. DO NOT make any legal decisions today as you have received sedating medication. CALL THE [facility] INTERVENTIONAL RADIOLOGY FOR - (Call visiting nurse [...] have your tube checked or changed on 05/28/15 at 7 am. If you cannot come at this time, please call to change your appointment. ?? IF YOU HAVE ANY QUESTIONS OR CONCERNS REGARDING THE PROCEDURE, PLEASE CALL THE [facility] INTERVENTIONAL RADIOLOGY AT [phone], OPTION #3. SOMEONE IS AVAILABLE TO TAKE [...] ?? Y adapters ?? Blue cap ?? auto tire recapper ?? Drainage Bag - Connector tubing and bag are one item. These are available at - The [facility], Main outpatient pharmacy on the 3rd floor of the [facility] building. This item CAN NOT be added [...] 03/31/2011 11/02/2018 100 mg capsule ibuprofen (MOTRIN) 200 mg Take 400 mg by mouth every 6 hours as nee ded 0 03/31/2011 05/28/2015 tablet magnesium oxide (MAG-OX) Take 400 mg by 0 11/02/2018 400 mg tablet mouth 2 times daily MULTI-VITAMIN ORAL Take by mouth. 0 mycophenolate mofetil Take 0.5 mL by 3 Bottle 1 06/12/2013 04/20/2021 (CELLCEPT) 200 mg/mL mouth daily. 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 ondansetron (ZOFRAN-ODT) 4 Take 4 mg by mouth 0 05/28/2015 mg disintegrating tablet every 8 hours [...] Care documented in this encounter Progress Notes Tara Newell RN - 03/18/2015 0957 EDT Labs, Medication, allergies, Pt history reviewed. Pt and ambulance crew greeted in CVU waiting area ID'd by name, and viewed name Bracelet. Pt in room time is 0920 . As the nurse in the room I explained goals of procedure relating to nursing goals. Pt acknowledges all her questions have been answered. Consent for the procedure and sedation reviewed. Pt positioned Supine on the angio 24 table. Cali moment at start of procedure tube check At 0925 between BJM, JAP, VIEIRA At start of the procedure the patient is awake. Fluoro guided biliary tube check Defer to Physicians note for procedure outcomes Pt tolerated procedure well. Discharge instructions reviewed with patient , copy given to pt and copy placed in prism. Pt has an appt for a tube change 05/28/15 at 0700 documented in this encounter Procedure Notes Tamir Howe PA - 03/18/2015 0946 EDT Images from the original note were not included. IR Procedure Note Procedure: Cholecystogram Date Performed: 03/18/2015 Radiologist/Electronic Health Records Specialist(s): Clemencia Russell PA-C Sedation/Anesthesia: None Time Out: A time-out was completed prior to procedure verifying correct patient, procedure, site, positioning, and special equipment if applicable. Estimated Blood Loss: Unless otherwise noted, there was no blood loss, specimens removed, cultures obtained, or drains retained. Specimens: None Fluoroscopy Time: 2.6 Min Contrast Volume: Omnipaque 300- 25 cc GI Complications: No Condition: Stable Post Procedure Diagnosis: Cholecystitis Findings: Pigtail within the gallbladder. There are several non-obstructing mobile stones within thegallbladder. Cystic, and common bile duct are patent and without filling defects. Follow Up: 9-4-15 Tube upsize with sedation prior to percutaneous stone extraction (ADB). Recommendations: Continue current tube care plan. MANDO Kraft 03/18/2015 documented in this encounter Plan of Treatment Upcoming Encounters Date Type Specialty Care Team Description 06/13/2022 Appointment Radiology 06/13/2022 Office Visit Urology Reji Foster MD [address] [place] [address], [address] [place], [place] [address] (Wo rk) documented as of this encounter Visit Diagnoses Not on filedocumented in this encounter Additional Health Concerns Infection Onset Date Last Indicated Resolved Time MRSAComment: IP note: risk factors - DM, impaired mobility, penitentiary resident 02/25/2015 02/25/2015 Pos nares 02/25/2015 Neg nares 11/02/18 Neg nares 12/13/18 N [place] 12/13/18 documented as of this encounter Care Teams Rides Supervisor Relationship Specialty Start Date End Date Lamberto Henderson MD PCP - General 07/17/11 03/21/[address] [address] documented as of this encounter
--- OUTSIDE RECORDS SUMMARY | 2022-03-17 00:38 | XMS_ITS | Encounter Summary ---
:1960 Author Organization [facility] Address [address] [place] [address] Care Team Providers Name Role Phone Lamberto Henderson MD Primary Care Provider Encounter Details Date Type Department Care Team Description 09/15/2015 Hospital Encounter [facility] Barbra [facility] MD Felix [address] [address] [place] [phone] (Wo rk) Social History Tobacco Use Types [...] condition, do Kishore s 02/25/2015 you have serious difficulty concentrating, remembering, or making decisions? (5 years old or older) documented as of this encounter Discharge Instructions Maylin Arizmendi RN - 09/15/2015 DISCHARGE INSTRUCTIONS FOR TUBE MANAGEMENT September 15, 2015 Tube Downsized - Karla Tube Procedure Site - Abdomen, Right Upper Physician Performing Procedure - Tamir Hanson and Rock Irvin MD The most important element of tube care is good hand washing before and after tube care. Caring for your tube at home 1. INSTILLATION - You will be taught how to instill 10 cc sterile saline into the tube 3 times, weekly, and as needed. If at the time of discharge you [...] In the event that you develop a fever or pain remove the blueclave cap, replace with a Y connector then [...] [You can purchase extra bags at the [facility],Main out patient pharmacy,] 6. DIET- You may resume you regular [...] wet, replace it with a dry one. CALL THE [facility] INTERVENTIONAL [...] have your tube checked or changed on September 30, 2015 at 8:30 am. If you cannot come at this time, please call to change your appointment. ?? IF YOU HAVE ANY QUESTIONS OR CONCERNS REGARDING THE PROCEDURE, PLEASE CALL THE [facility] INTERVENTIONAL RADIOLOGY AT [phone], OPTION #3. SOMEONE IS AVAILABLE TO TAKE [...] ?? Y adapters ?? Blue cap ?? capital equipment specialist ?? Drainage Bag - Connector tubing and bag are one item. These are available at - The [facility], Main outpatient pharmacy on the 3rd floor of the [facility] building. This item CAN NOT be added [...] (ABILIFY) Take 30 mg by mouth 0 04/201111/01/2018 15 mg tablet at bedtime. 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 I have reviewed all over pertinent orders for this procedure. Pt greeted in CVU, on ambulance stretcher c crew. ID'd by name, and viewed name bracelet. As the nurse in the room I explained goals of procedure relating to nursing goals. Pt verbalizes all questions have been answered regarding procedure. 200 ml clear yellow brown fluid in current drainage bag,has 14 fr karla tube, pt states lots of output, tube being flushed 10 ml qod. Pt in room time is 0800. Pt slid from stretcher to be positioned supine on the angiosuite 22 table. Gel pads under elbows, safety straps in place. Sterile prep of RUQ abd with dynahex in the usual sterile fashion by dmw. Cali moment for karla tube downsize procedure verbalized with all team members listening at 0815 between [facility], [facility] and bjmariela with JTS as supervising attending. At start of the procedure the patient is awake. Skin under basilio disc reddened. Downsized from 14 fr to 8 fr [place] Sci APDL, new blue basilio disc placed, no sutures, split guaze, guaze, hypafix dsg, CDI. Capped, pt being sent home c rescue bag. Plan: 2 wk pull on: [id number] @ 0830 Defer to Physicians note for procedure outcomes. Pt tolerated procedure well. Discharge instructions placed in prism. Pt slid back onto ambulance stretcher, crew taking pt back to [facility]. Report called to Raine RN at [facility]. documented in this encounter Procedure Notes Tamir Howe PA - 09/15/2015 0830 EST IR Procedure Note Procedure: Cholecystogram Date Performed: 09/15/2015 Radiologist/Curriculum Facilitator(s): Clemencia Alcaraz PA-C Sedation/Anesthesia: None Time Out: A time-out was completed prior to procedure verifying correct patient, procedure, site, positioning, and special equipment if applicable. Estimated Blood Loss: Unless otherwise noted, there was no blood loss, specimens removed, cultures obtained, or drains retained. Specimens: None Fluoroscopy Time: 53 Sec Contrast Volume: Omnipaque 300- 25 cc GI Complications: No Condition: Stable Post Procedure Diagnosis: Hx of gallstones, now s/p percutaneous exrection Findings: Uncomplicated exchange of a 14 Fr APDL cholecystostomy via fluoroscopic guidance for an 8 Fr pigtail. The tube was capped, an d a clave was attached for flushing. A rescue bag was provided for symptoms of biliary obstruction. Recommendations: F/U in 2 weeks with capped tube for removal. Flush tube QOD. MANDO Kraft 09/15/2015 8:30 documented in this encounter Plan of Treatment Upcoming Encounters Date Type Specialty Care Team Description 06/13/2022 Appointment Radiology 06/13/2022 Office Visit Urology Reji Foster MD [address] [place] [facility] [place], [address] [place], [place] [address] (Wo rk) documented as of this encounter Procedures Procedure Name Priority Date/Time Associated Comments Diagnosis IR CHOLANGIOGRAM THRU Routine 09/30/2015 9:00 Res ults for this TUBE EST procedure are i n the results section. documented in this encounter Results IR CHOLANGIOGRAM THRU TUBE (09/30/2015 9:00 EST) Anatomical Region Laterality Modality Other Specimen Narrative [facility] - 10/01/2015 15:50 EST Examination: Cholangiogram through existing catheter. September 30, 2015. Clinical history: Cholecystitis with gal lstones status post gallstone removal. Procedure: The patient's percutaneous cholecystosto my was injected with approximately 20 cc of contrast. This sh ows no gallstones within the gallbladder, cystic duct or common bile duct. There is free flow contrast through the bile duct and ampul la into the duodenum. There is reflux of small amount of contrast in to normal caliber intrahepatic bile ducts. The contrast wa s then aspirated and the drain removed. A sterile dressing was th en applied. The procedure was performed by Eva Arias Curriculum Facilitator in interventional radiology. The procedure was performed under the direct supervision of the attending Dr. Giorgi brown. Impression: 1. Cholangiogram demonstrating no furthe r stones within the gallbladder, cystic duct, or common bile duct. The percutaneous cholecystostomy was removed. Procedure Note Lit Rand MD - 10/01/2015 Examination: Cholangiogram through exist ing catheter. September 30, 2015. Clinical history: Cholecystitis with gal lstones status post gallstone removal. Procedure: The patient's percutaneous cholecystosto my was injected with approximately 20 cc of contrast. This sh ows no gallstones within the gallbladder, cystic duct or common bile duct. There is free flow contrast through the bile duct and ampul la into the duodenum. There is reflux of small amount of contrast in to normal caliber intrahepatic bile ducts. The contrast wa s then aspirated and the drain removed. A sterile dressing was th en applied. The procedure was performed by Tamir Howe, Physic stanley Curriculum Facilitator in interventional radiology. The procedure was performed under the direct supervision of the attending Dr. Giorgi brown. Impression: 1. Cholangiogram demonstrating no furthe r stones within the gallbladder, cystic duct, or common bile duct. The percutaneous cholecystostomy was removed. Performing Organization Address City/State/ZIP Code Phon e Number [facility] RAD[facility]OLOG[facility] documented in this encounter Visit Diagnoses Not on filedocumented in this encounter Additional Health Concerns Infection Onset Date Last Indicated Resolved Time MRSAComment: IP note: risk factors - DM, impaired mobility, correction resident 02/25/2015 02/25/2015 Pos nares 02/25/2015 Neg nares 11/02/18 Neg nares 12/13/18 N [place] 12/13/18 documented as of this encounter Care Teams Data Processing Consultant Relationship Specialty Start Date End Date Lamberto Henderson MD PCP - General 07/17/11 03/21/16 [address] [facility] [address] [place] [address] documented as of this encounter
--- OUTSIDE RECORDS SUMMARY | 2022-03-17 00:38 | XMS_ITS | Encounter Summary ---
:1960 Author Organization [facility] Address [address] [place] [address] Care Team Providers Name Role Phone Lamberto Henderson MD Primary Care Provider Encounter Details Date Type Department Care Team Description 03/13/2016 Hospital Encounter [facility] - Unknown, [facility] [phone] [place] [address] (Work) [place] [address] Social History Tobacco Use Types Packs/Day Years [...] a physical, mental, or emotional condition, Yes 03/06/2016 does this person have difficulty doing errands alone such as visiting a doctor's office or shopping? Cognitive Status Response Date of Assessment Because of a physical, mental, or emotional condition, Yes 03/06/2016 does this person have serious difficulty concentrating, [...] done suspensionIndications: every 3 months Vasculitis, primary PODIATRIST ORTHOPEDIC (HCC-CMS) ([facility]) nitroGLYCERIN Place 0.4 mg under [...] Code Departure Means Destination Home or Self Longterm documented in this encounter Plan of Treatment Upcoming Encounters Date Type Specialty Care Team Description 06/13/2022 Appointment Radiology 06/13/2022 Office Visit Urology Reji Foster MD [address] [place] [address], [facility], [address] [place], [place] [address] (Wo rk) documented as of this encounter Visit Diagnoses Not on filedocumented in this encounter Additional Health Concerns Infection Onset Date Last Indicated Resolved Time MRSAComment: IP note: risk factors - DM, impaired mobility, shelter resident 02/25/2015 02/25/2015 Pos nares 02/25/2015 Neg nares 11/02/18 Neg nares 12/13/18 N [place] 12/13/18 documented as of this encounter Care Teams Hide And Skin Classer Relationship Specialty Start Date End Date Lamberto Henderson MD PCP - General 07/17/11 03/21/[address] [address] documented as of this encounter
--- OUTSIDE RECORDS SUMMARY | 2022-03-17 00:38 | XMS_ITS | Encounter Summary ---
:[address] [facility] [place] Address [address] [place] [address] Care Team Providers Name Role Phone Lamberto Henderson MD Primary Care Provider Ovidio Linares MD Primary Care Provider [phone] Pio Odonnell MD Primary Care Provider [phone] Encounter Details Date Type Department Care Team Description 03/13/2016 Historical Results [facility] - Ishmael Patel, Only [facility] Res[facility] [address] [place] [address] [place] [address] [phone] Social History Tobacco Use Types Packs/Day Years [...] Visit Urology Cristian, Reji Fletcher MD [address] [facility], [facility], [facility] [address] [place], [place] [address] (Wo rk) documented as of this encounter Procedures Procedure Name Priority Date/Time Associated Diagnosis Comme nts XR SHOULDER LEFT 2 03/13/2016 18:53 Resul ts for this OR MORE VIEWS EDT procedure are in the results section. XR FOOT RIGHT 3 OR 03/13/2016 18:52 Resul ts for this MORE VIEWS EDT procedure are i n the results section. XR HUMERUS LEFT 03/13/2016 18:48 Results for this EDT procedure are i n the results section. documented in this encounter Results XR SHOULDER LEFT 2 OR MORE VIEWS (03/13/2016 18:53 EDT) Specimen Narrative [facility] - 03/13/2016 18:53 EDT ? EXAM: RADIOLOGY/SHOULDER LT 2+VIEWS ? EX. D/ (183) ? CLINICAL INFORMATION: ? FALL, PAIN ? EXAM: ? XR Left Shoulder Complete, 2 o r More Views. ? CLINICAL HISTORY: ? The patient is a 55 years ??fe male; Injury or trauma; Fall; ? Initial encounter; Without residu al foreign body; Blunt trauma ? (contusions or hematomas; Shoulde r; Right; Additional info: ? Fall, pain 03/13/2016 5:25 PM ? TECHNIQUE: ? Two or more views of the left shoulder. ? COMPARISON: ? Left humerus x-ray 03/13/2016. ? FINDINGS: ? Bones: ??There is a closed non displaced fracture of the ? surgical neck of the humerus.The remaining skeletal structures ? show no evidence of fracture or o ther acute process. ? Joints: ??There are mild degen erative changes of the ? acromioclavicular joint. The dagoberto ohumeral joint is normal. ??No ? dislocation. ? Soft tissues: ??Unremarkable. ? IMPRESSION: ? Nondisplaced fracture of the n aggie of the humerus. ? REPORT SIGNED IN OTHER VENDOR SYSTEM 03/13/2016 ?Reported B y: Lyssa Fernandez MD ? CC: ? Transcribed Date/Time: 03/13/2016 (1853) ? Steel Detailer: ? Printed Date/Time: 03/07/2019 (00 22) ? PAGE 1 ? Marichuy d Report ? Procedure Note Lyssa Fernandez - 07/30/2019 EXAM: RADIOLOGY/SHOULDER LT 2+VIEWS EX. D/ (1837) CLINICAL INFORMATION: FALL, PAIN EXAM: XR Left Shoulder Complete, 2 or More Vi ews. CLINICAL HISTORY: The patient is a 55 years female; Injur y or trauma; Fall; Initial encounter; Without residual for eign body; Blunt trauma (contusions or hematomas; Shoulder; Rig ht; Additional info: Fall, pain 03/13/2016 5:25 PM TECHNIQUE: Two or more views of the left shoulder. COMPARISON: Left humerus x-ray 03/13/2016. FINDINGS: Bones: There is a closed nondisplaced f racture of the surgical neck of the humerus.The remain ing skeletal structures show no evidence of fracture or other a cute process. Joints: There are mild degenerative elly nges of the acromioclavicular joint. The glenohumer al joint is normal. No dislocation. Soft tissues: Unremarkable. IMPRESSION: Nondisplaced fracture of the neck of th e humerus. REPORT SIGNED IN OTHER VENDOR SYSTEM 03/13/2016 Reported By: Lyssa Fernandez MD CC: Transcribed Date/Time: 03/13/2016 (1853 ) Steel Detailer: Printed Date/Time: 03/07/2019 (0022) PAGE 1 Signed Report Performing Organization Address City/State/ZIP Code Phon e Number [facility] XR FOOT RIGHT 3 OR MORE VIEWS (03/13/2016 18:52 EDT) Specimen Narrative [facility] - 03/13/2016 18:53 EDT ? EXAM: RADIOLOGY/CSOD-PWDRL-5+VIEW ? EX. D/ (1837) ? CLINICAL INFORMATION: ? FALL, DISTAL PAIN ? EXAM: ? XR Right Foot Complete, 3 or M ore Views. ? CLINICAL HISTORY: ? The patient is a 55 years ??fe male; Injury or trauma; Fall; ? Initial encounter; Blunt trauma; Foot; Right; Prior surgery; ? Surgery date: 6+ months; Addition al info: Fall, distal pain ? 03/13/2016 5:25 PM ? TECHNIQUE: ? Frontal, lateral and oblique v iews of the right foot. ? COMPARISON: ? No relevant prior studies lalo combs. ? FINDINGS: ? Bones: ??There is marked diffu se bone demineralization. ??There ? is a closed nondisplaced extra-ar ticular fracture of the distal ? shaft of the first metatarsal in alignment. ??There is a closed, ? minimally displaced fracture of t he mid to distal shaft of the ? fourth metatarsal in alignment. ? Joints: ??There has been arthr odesis of the first and second ? tarsometatarsal joints. ??Surgica l hardware appears intact. ? There is narrowing of the remaind er of the tarsal joints. ??There ? is narrowing of the interphalange al joints of the second through ? fifth toes. ??No dislocation. ? Soft tissues: There is soft ti ssue swelling over the dorsal ? aspect of the distal metatarsals. ??No radiopaque foreign body. ? IMPRESSION: ? Fractures of the first and fou rth metatarsals. ? Remainder of findings as describe d above. ? REPORT SIGNED IN OTHER VENDOR SYSTEM 03/13/2016 ?Reported B y: Lyssa Fernandez MD ? CC: ? Transcribed Date/Time: 03/13/2016 (1853) ? Steel Detailer: ? Printed Date/Time: 03/07/2019 (00 22) ? PAGE 1 ? Marichuy d Report ? Procedure Note Lyssa Fernandez - 07/30/2019 EXAM: RADIOLOGY/LOXY-BXXZS-2+VIEW EX. D / (183) CLINICAL INFORMATION: FALL, DISTAL PAIN EXAM: XR Right Foot Complete, 3 or More Views . CLINICAL HISTORY: The patient is a 55 years female; Injur y or trauma; Fall; Initial encounter; Blunt trauma; Foot; Right; Prior surgery; Surgery date: 6+ months; Additional inf o: Fall, distal pain 03/13/2016 5:25 PM TECHNIQUE: Frontal, lateral and oblique views of t dayana right foot. COMPARISON: No relevant prior studies available. FINDINGS: Bones: There is marked diffuse bone dem ineralization. There is a closed nondisplaced extra-articula r fracture of the distal shaft of the first metatarsal in alignm ent. There is a closed, minimally displaced fracture of the mid to distal shaft of the fourth metatarsal in alignment. Joints: There has been arthrodesis of t he first and second tarsometatarsal joints. Surgical hardwa re appears intact. There is narrowing of the remainder of the tarsal joints. There is narrowing of the interphalangeal belle nts of the second through fifth toes. No dislocation. Soft tissues: There is soft tissue swel ling over the dorsal aspect of the distal metatarsals. No ra diopaque foreign body. IMPRESSION: Fractures of the first and fourth metat arsals. Remainder of findings as described marleny e. REPORT SIGNED IN OTHER VENDOR SYSTEM 03/13/2016 Reported By: Lyssa Fernandez MD CC: Transcribed Date/Time: 03/13/2016 (626 ) Steel Detailer: Printed Date/Time: 03/07/2019 (0022) PAGE 1 Signed Report Performing Organization Address City/State/ZIP Code Phon e Number [facility] XR HUMERUS LEFT (03/13/2016 18:48 EDT) Specimen Narrative [facility] - 03/13/2016 18:49 EDT ? EXAM: RADIOLOGY/NEYONUD-WRAM-9 VIEW ? EX. D/ (1837) ? CLINICAL INFORMATION: ? FALL, PAIN ? EXAM: ? XR Left Humerus, 2 or More Vie ws. ? CLINICAL HISTORY: ? The patient is a 55 years ??fe male; Injury or trauma; Fall; ? Initial encounter; Without residu al foreign body; Blunt trauma ? (contusions or hematomas; Arm, up per; Left; Additional info: ? Fall, pain 03/13/2016 5:25 PM ? TECHNIQUE: ? Frontal and lateral views of t he left humerus. ? COMPARISON: ? CR - SHOULDER-LEFT 03/13/2016 6 :27:01 PM ? FINDINGS: ? Bones: ??There is a closed non displaced fracture of the ? surgical neck of the humerus in a lignment. ??Remainder of the ? humerus is intact. ? Joints: ?? No dislocation. ? Soft tissues: ??Unremarkable. ? IMPRESSION: ? Nondisplaced fracture of the n aggie of the humerus. ? REPORT SIGNED IN OTHER VENDOR SYSTEM 03/13/2016 ?Reported B y: Lyssa Fernandez MD ? CC: ? Transcribed Date/Time: 03/13/2016 (1849) ? Steel Detailer: AD ? Printed Date/Time: 03/07/2019 (00 22) ? PAGE 1 ? Marichuy d Report ? Procedure Note Lyssa Fernandez - 07/30/2019 EXAM: RADIOLOGY/IDQKFAV-UNYI-4 VIEW EX. D/ (1837) CLINICAL INFORMATION: FALL, PAIN EXAM: XR Left Humerus, 2 or More Views. CLINICAL HISTORY: The patient is a 55 years female; Injur y or trauma; Fall; Initial encounter; Without residual for eign body; Blunt trauma (contusions or hematomas; Arm, upper; L eft; Additional info: Fall, pain 03/13/2016 5:25 PM TECHNIQUE: Frontal and lateral views of the left h umerus. COMPARISON: CR - SHOULDER-LEFT 03/13/2016 6:27:01 PM FINDINGS: Bones: There is a closed nondisplaced f racture of the surgical neck of the humerus in alignme nt. Remainder of the humerus is intact. Joints: No dislocation. Soft tissues: Unremarkable. IMPRESSION: Nondisplaced fracture of the neck of th e humerus. REPORT SIGNED IN OTHER VENDOR SYSTEM 03/13/2016 Reported By: Lyssa Fernandez MD CC: Transcribed Date/Time: 03/13/2016 (328 ) Steel Detailer: Printed Date/Time: 03/07/2019 (0022) PAGE 1 Signed Report Performing Organization Address City/State/ZIP Code Phon e Number [facility] documented in this encounter Visit Diagnoses Not on filedocumented in this encounter Additional Health Concerns Infection Onset Date Last Indicated Resolved Time MRSAComment: IP note: risk factors - DM, impaired mobility, long term resident 02/25/2015 02/25/2015 Pos nares 02/25/2015 Neg nares 11/02/18 Neg nares 12/13/18 N [place] 12/13/18 documented as of this encounter Care Teams Fire Adjuster Relationship Specialty Start Date End Date Lamberto Henderson MD PCP - General 07/17/11 03/21/16 [address] [facility] [address] [place] [address] Ovidio Linares MD PCP - General 03/22/16 10/30/18 [facility] [address] [place] [address] Pio Odonnell MD PCP - General 10/31/18 04/20/[address] [place] [address] documented as of this encounter
--- OUTSIDE RECORDS SUMMARY | 2022-03-17 00:38 | XMS_ITS | Encounter Summary ---
:1960 Author Organization [facility] Address [address] [place] [address] Care Team Providers Name Role Phone Ovidio Linares MD Primary Care Provider [phone] Pio Odonnell MD Primary Care Provider [phone] Encounter Details Date Type Department Care Team Description 01/29/2017 Historical Results [facility] - Ovidio Linares Only [facility] - Chandrakant Chavez MD [place] [address] [facility] [address] [place] [address] [place], [place] [phone] [address] (Wo rk) Social History Tobacco Use [...] Urology Reji Foster MD [address] [facility], [facility], [address] [place], [place] [address] (Wo rk) documented as of this encounter Procedures Procedure Name Priority Date/Time Associated Diagnosis Comme nts HEMOGLOBIN A1C Routine 01/29/2017 3:58 EDT Result s for this procedure are i n the results section . documented in this encounter Results (ABNORMAL) HEMOGLOBIN A1C (01/29/2017 3:58 EDT) Pathologist Sig nature Hemoglobin A1c 6.6 (H) 4.0 - 6.0 % [facility] Est Avg Glucose 143 mg/dL [facility] Specimen Performing Organization Address City/State/ZIP Code Phon e Number [facility] [address] [place] [address] [facility] documented in this encounter Visit Diagnoses Not on filedocumented in this encounter Additional Health Concerns Infection Onset Date Last Indicated Resolved Time MRSAComment: IP note: risk factors - DM, impaired mobility, [facility] resident 02/25/2015 02/25/2015 Pos nares 02/25/2015 Neg nares 11/02/18 Neg nares 12/13/18 [place] 12/13/18 documented as of this encounter Care Teams Explosive Technician Relationship Specialty Start Date End Date Ovidio Linares MD PCP - General 03/22/16 10/30/18 [facility] [address] [place] [address] Pio Odonnell MD PCP - General 10/31/18 04/20/[address] [place] [address] documented as of this encounter
--- OUTSIDE RECORDS SUMMARY | 2022-03-17 00:38 | XMS_ITS | Encounter Summary ---
:1960 Author Organization [facility] Address [address] [place] [address] Care Team Providers Name Role Phone Ovidio Linares MD Primary Care Provider [phone] Pio Odonnell MD Primary Care Provider [phone] Encounter Details Date Type Department Care Team Description 11/01/2016 Historical Results [facility] - Ovidio Linares Only [facility] - Chandrakant Chavez MD [place] [address] [facility] [address] [place] [address] [place], [place] [phone] (Wo rk) Social History Tobacco Use [...] Visit Urology Reji Foster MD [address] [facility], [facility], [address] [place], [place] [address] (Wo rk) documented as of this encounter Procedures Procedure Name Priority Date/Time Associated Diagnosis Comme nts URINE CULTURE IF Routine 11/01/2016 11:03 Results for this POSITIVE EST procedure are i n the results section. documented in this encounter Results URINE CULTURE IF POSITIVE (11/01/2016 11:03 EST) USUAL [facility] CitrateConcentration <10,000 CFU/ML [facility] Specimen Performing Organization Address City/State/ZIP Code Phon e Number [facility] [address] [place] [address] [facility] documented in this encounter Visit Diagnoses Not on filedocumented in this encounter Additional Health Concerns Infection Onset Date Last Indicated Resolved Time MRSAComment: IP note: risk factors - DM, impaired mobility, care home resident 02/25/2015 02/25/2015 Pos nares 02/25/2015 Neg nares 11/02/18 Neg nares 12/13/18 [place] 12/13/18 documented as of this encounter Care Teams Recooperer Relationship Specialty Start Date End Date Ovidio Linares MD PCP - General 03/22/16 10/30/18 [facility] [address] [place] [address] Pio Odonnell MD PCP - General 10/31/18 04/20/21 [address] [facility] [place] [address] documented as of this encounter
--- OUTSIDE RECORDS SUMMARY | 2022-03-17 00:38 | XMS_ITS | Encounter Summary ---
:1960 Author Organization [facility] Address [address] [place] [address] Care Team Providers Name Role Phone Ovidio Linares MD Primary Care Provider [phone] Reason for Visit Reason Onset Date Comments Pre-op Exam 05/19/2016 Encounter Details Date Type Department Care Team Description 05/19/2016 Office Visit [facility] Romeo Hunt MD Ophthalmology - [place] in [address] [place] [address] [address] [place], [place] [id number] [phone] Social History Tobacco Use Types Packs/Day Years [...] making decisions? documented as of this encounter Ordered Prescriptions Prescription Sig Dispensed Refills Start Date End Date ofloxacin (OCUFLOX) 0.3 % Place 1 Drop into 1 Bottle 0 11/02/2018 ophthalmic the right eye 4 solutionIndications: times daily. Senile nuclear sclerosis, right ketOROLAC tromethamine Place 1 Drop into 5 mL 2 201507/20/2016 (ACULAR LS) 0.4 % the right eye 4 dropsIndications: Senile times daily. nuclear sclerosis, right prednisoLONE (PRED FORTE) Place 1 Drop into 1 Bottle 2 07/20/2016 1 % ophthalmic the right eye 4 suspensionIndications: times daily. Senile nuclear sclerosis, right documented in this encounter Progress Notes Sheila Goldman - 05/19/2016 1231 EDT BIOMETRY Right eye Left eye Type: Lenstar Lenstar Indication: IOL Calculations IOL Calculations Biometry Completed by Sheila Goldman Original tests to be found in patients shadow chart I was directly supervised by Dr. Ryan Hunt and he was in the suite and immediately available forthe entire time the service was provided. 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
--- OUTSIDE RECORDS SUMMARY | 2022-03-17 00:38 | XMS_ITS | Encounter Summary ---
:1960 Author Organization [facility] Address [address] [place] [address] Care Team Providers Name Role Phone Ovidio Linares MD Primary Care Provider [phone] Reason for Visit Reason Comments Post-OP Follow Up CE/ PC IOL left eye(06-29-20) / right( 06-15-2016) Encounter Details Date Type Department Care Team Description 07/20/2016 Office Visit [facility] Romeo Hunt MD Ophthalmology - [place] in [address] [place] [address] [address] [place], [place] [phone] Social History Tobacco Use Types Packs/Day Years [...] documented as of this encounter Progress Notes Ryan Hunt MD - 07/20/2016 0903 EDT Chief Complaint: Pseudophakia, Cataract Post-Op Month 1, left eye(s) HPI POM #1 s/p CE/PCIOL, left eye(s). Location: Pain: 0 - No pain Quality: Severity: Duration: Timing: Lasts: Context: vision slightly better except still can't read, waiting for Rx for reading glasses Modifying factors: Associated Signs & Symptoms: Visual Fluctuations: None Attestation: Base Eye Exam Visual Acuity (Snellen - Linear) Right Left Dist sc 20/80 -2 20/50 -2 Tonometry (Tonopen, 9:56) Right Left Pressure 14 14 Pupils Dark React APD Right 4 Sluggish None Left 4 Sluggish None Extraocular Movement Right Left Result Full Full Neuro/Psych Oriented x3: Yes Mood/Affect: Normal Dilation Both eyes: 1.0% Mydriacyl, 2.5% Cj Synephrine @ 9:58 Slit Lamp and Fundus Exam Slit Lamp Exam Right Left Lids/Lashes Normal Normal Conjunctiva/Sclera White and quiet White and quiet Cornea incisions sealed, clear incisions sealed, clear Anterior Chamber Deep and quiet Deep and quiet Iris Round and reactive, no NVI (dilated) Round and reactive, no NVI (dilated) Lens Centered posterior chamber intraocular lens Centered posterior chamber intraocular lens Fundus Exam Right Left Vitreous Normal Normal Disc Normal Normal C/D Ratio 0.4 0.4 Macula Normal, no MA's Normal, no MA's Vessels Normal Normal Periphery Normal, no retinopathy Normal, no retinopathy Refraction Wearing Rx Sphere Cylinder Add Right -0.25 Sphere +2.75 Left -0.25 Sphere +2.75 Type: Bifocal Manifest Refraction Sphere Cylinder Kake Dist Add Near Right -1.75 +0.50 070 20/40+2 +2.75 J3 Left -0.75 Sphere 20/40 +2.75 J3 Manifest Refraction #2 (Auto) Sphere Cylinder Kake Dist Add Near Right -1.50 +0.25 072 Left -1.00 +0.75 006 Final Rx Sphere Cylinder Kake Add Right -1.75 +0.50 070 +2.75 Left -0.75 Sphere +2.75 Comments: MRX after cataract surgery w/Dr. Ryan Hunt, right 06/15/16, left 06/29/16 IMPRESSION & PLAN: POM #1 s/p CE/PCIOL, left eye(s) (06/29/16 left, 06/15/16 right) -The patient is doing well -Finished with eye drops -Recommend AT's PRN for burning -MRx provided today -Return 1 year or sooner as needed I have reviewed the patient's past medical, family, social and surgical history. I have also reviewed the patient's medications, allergies, and problem list. I performed my own HPI and have reviewed the [facility]'s ROS as well. I personally completed this exam myself. Ryan Hunt MD documented in this encounter Plan of Treatment Upcoming Encounters Date Type Specialty Care Team Description 06/13/2022 Appointment Radiology 06/13/2022 Office Visit Urology Reji Foster MD [address] [place] [address], [facility], [address] [place], [place] [address] (Wo rk) documented as of this encounter Visit Diagnoses Diagnosis S/P cataract surgery, left - Primary S/P cataract surgery, right documented in this encounter Discontinued Medications Medication Sig Discontinue Reason Start Date End Date ketOROLAC tromethamine Place 1 Drop into Therapy completed 05/19/20 16 07/20/2016 (ACULAR LS) 0.4 % the right eye 4 dropsIndications: Senile times daily. nuclear sclerosis, right prednisoLONE (PRED FORTE) Place 1 Drop into Therapy completed 05/1907/20/2016 1 % ophthalmic the right eye 4 suspensionIndications: times daily. Senile nuclear sclerosis, right documented as of this encounter Additional Health Concerns Infection Onset Date Last Indicated Resolved Time MRSAComment: IP note: risk factors - DM, impaired mobility, [facility] resident 02/25/2015 02/25/2015 Pos nares 02/25/2015 Neg nares 11/02/18 Neg nares 12/13/18 [place] 12/13/18 documented as of this encounter Eye Exam Visual Acuity (Snellen - Linear) Right eye Left eye Dist sc 20/80 -2 20/50 -2 Tonometry (Tonopen, 9:56) Right eye Left eye Pressure 14 14 Pupils Dark React APD Right eye 4 Sluggish None Left eye 4 Sluggish None Extraocular Movement Right eye Left eye Full Full Neuro/Psych Oriented x3: Yes Mood/Affect: Normal Dilation Both eyes: 1.0% Mydriacyl, 2.5% Cj Syne phrine @ 9:58 Slit Lamp Exam Right eye Left eye Lids/Lashes Normal Normal Conjunctiva/Sclera White and quiet White and quiet Cornea incisions sealed, clear incisions sealed , clear Anterior Chamber Deep and quiet Deep and quiet Iris Round and reactive, no NVI Round and kennedy ctive, no NVI (dilated) (dilated) Lens Centered posterior chamber Centered post erior chamber intraocular lens intraocular lens Vitreous Normal Normal Fundus Exam Right eye Left eye Disc Normal Normal C/D Ratio 0.4 0.4 Macula Normal, no MA's Normal, no MA's Vessels Normal Normal Periphery Normal, no retinopathy Normal, no retino brinda Wearing Rx Sphere Cylinder Add Right eye -0.25 Sphere +2.75 Left eye -0.25 Sphere +2.75 Type: Bifocal Manifest Refraction #1 Sphere Cylinder Kake Dist VA Add Near VA Right eye -1.75 +0.50 070 20/40+2 +2.75 J3 Left eye -0.75 Sphere 20/40 +2.75 J3 Manifest Refraction #2 (Auto) Sphere Cylinder Kake Dist VA Add Near VA Right eye -1.50 +0.25 072 Left eye -1.00 +0.75 006 Final Rx Sphere Cylinder Kake Add Right eye -1.75 +0.50 070 +2.75 Left eye -0.75 Sphere +2.75 Comments: MRX after cataract surgery w/D taylor Hunt, right 06/15/16, left 06/29/16 Care Teams Stock Patch Sawyer Relationship Specialty Start Date End Date Ovidio Linares MD PCP - General 03/22/16 10/30/[address] [place] [address] [address] [place] [address] documented as of this encounter
--- OUTSIDE RECORDS SUMMARY | 2022-03-17 00:38 | XMS_ITS | Encounter Summary ---
:1960 Author Organization [facility] Address [address] [place] [address] Care Team Providers Name Role Phone Lamberto Henderson MD Primary Care Provider Reason for Visit Reason Comments Cataract Patient here for cataract ev al. Patient referred by that comes to rehab. Consult (Routine) - Closed Specialty Diagnoses / Procedures Referred By Contact Refer red To Contact Ophthalmology Diagnoses Cataracts, bilateral Ovidio Linares [facility] MD Scott [address] [place] [address] [address] [place] [address] [place] [address] Referral ID Status Reason Start Date Expiration Date Visits Requ ested Visits Authorized [id number] Closed 1 1 Encounter Details Date Type Department Care Team Description 03/06/2016 Office Visit [facility] Romeo Hunt MD Ophthalmology - [place] in [address] [place] [address] [address] [place] [address] [place] [address] [phone] Social History Tobacco Use Types Packs/Day Years [...] as of this encounter Patient Instructions Patient InstructionsYoRyan gill MD - 03/06/2016 10:43 EDT Please make an appointment with your Primary Doctor for a pre-operative physical. Try to schedule for about 2 weeks prior to your surgery. Your lens measurement appointment will be scheduled by phone Your surgery date is: April 20, [address] [facility] (check in at Patient Registration). The Hospital will call you prior to the surgery with your report time. documented in this encounter Progress Notes Ryan Hunt MD - 03/06/2016 1011 EDT Chief Complaint Patient presents with ??? Cataract Patient here for cataract eval. Patient referred by that comes to rehab. HPI The patient is a 55 y.o. female here with increasing blurred vision in both eyes, getting worse for the past 1 year. She reports that she has no history of eye injuries. She is now only able to barely see large print, but is otherwise unable to read or comfortably see TV. Right Eye: Blurred Vision, Glare or Light Sensitivity Left Eye: Blurred Vision, Glare or Light Sensitivity Visual Aid: Glasses Current Rx Age Location: Both eyes Pain: 0 - No pain Quality: Blurry Severity: Moderate Duration: Years Timing: Lasts: Continuous Context: Patient notes vision is very blurry. No pain, no pressure. Modifying factors: Patient is a diabetic unsure of last HA1C. 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 Dysphagia Attestation: Base Eye Exam Visual Acuity (Snellen - Linear) Right Left Dist cc 20/70 20/70 Near cc 20/400 20/400 Tonometry (Tonopen, 9:40) Right Left Pressure 17 22 Pupils Pupils Light APD Right PERRL 5 None Left PERRL 5 None Visual More (Counting fingers) Right Left Result Full Full Extraocular Movement Right Left Result Full, Ortho Full, Ortho Neuro/Psych Oriented x3: Yes Mood/Affect: Normal Dilation Both eyes: 1.0% Mydriacyl, 2.5% Phenylephrine @ 9:41 Additional Tests Glare Testing (BAT) Off High Right 20/70 20/80 Left 20/70 20/100 Slit Lamp and Fundus Exam Slit Lamp Exam Right Left Lids/Lashes Normal Normal Conjunctiva/Sclera White and quiet White and quiet Cornea Clear Clear Anterior Chamber Deep and quiet Deep and quiet Iris Round and reactive, dilates to 7.5mm, no NVI - dilated Round and reactive, dilates to 7.5mm, no NVI - dilated Lens 2+ Nuclear sclerosis, no Pseudoexfoliation 2+ Nuclear sclerosis, no Pseudoexfoliation Fundus Exam Right Left Vitreous Normal Normal Disc Normal, no NVD Normal, no NVD C/D Ratio 0.5 0.45 Macula Normal, no MA's Normal, no MA's Vessels Normal Normal Periphery Normal, no retinopathy Normal, no retinopathy Refraction Wearing Rx Sphere Cylinder Add Right -0.25 Sphere +2.75 Left -0.25 Sphere +2.75 Type: Bifocal Manifest Refraction (Auto) Sphere Cylinder [place] Dist Add Near Right [place] +0.50 176 Left [place] +0.50 019 Manifest Refraction #2 Sphere Cylinder [place] Dist Add Near Right -0.50 +0.25 155 20/70 +2.75 20/400 Left -0.50 +0.25 045 20/70 +2.75 20/400 DIAGNOSTIC TESTS: IMPRESSION & PLAN: 1. Cataract, both eyes Visually significant -Discussed cataract surgery in detail including risks (including but not limited to infection, retinal detachment, loss of vision/eye, corneal/macular edema, need for additional surgery), benefits, andalternatives and the patient elects to proceed with the right eye first. -The patient was given an informational pamphlet -Return for biometry and IOL calculations Surgical planning: Flomax: No Pupil dilation:7.5mm Blood thinners: No Able to lie flat: Yes Pseudoexfoliation: No Corneal guttae: no History of refractive surgery: no Risk for anisometropia: low Refractive aim: [place] This will be difficult from a positioning standpoint for IOL measurements. Will plan to use the ORA to confirm lens power. 2. Diabetes mellitus No retinopathy -Recommend good blood sugar and blood pressure control -Recommend annual dilated eye exam -Copy of note sent to PCP I have reviewed the patient's past medical, family, social and surgical history. I have also reviewed the patient's medications, allergies, and problem list. I performed my own HPI and have reviewed the [facility]'s ROS as well. I completed this exam personally. Ryan Hunt MD I am scribing for Ryan Hunt MD, while he is personally performing the service. 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, left Type 2 diabetes mellitus without complic ation ([facility]) ([facility]) Type II or unspecified type diabetes katya litus without mention of complication, not stated as uncontrolled Refractive error Unspecified disorder of refraction and a ccommodation documented in this encounter Additional Health Concerns Infection Onset Date Last Indicated Resolved Time MRSAComment: IP note: risk factors - DM, impaired mobility, alf resident 02/25/2015 02/25/2015 Pos nares 02/25/2015 Neg nares 11/02/18 Neg nares 12/13/18 N [place] 12/13/18 documented as of this encounter Eye Exam Visual Acuity (Snellen - Linear) Right eye Left eye Dist cc 20/70 20/70 Near cc 20/400 20/400 Tonometry (Tonopen, 9:40) Right eye Left eye Pressure 17 22 Pupils Pupils Light APD Right eye PERRL 5 None Left eye PERRL 5 None Visual More (Counting fingers) Right eye Left eye Full Full Extraocular Movement Right eye Left eye Full, Ortho Full, Ortho Neuro/Psych Oriented x3: Yes Mood/Affect: Normal Dilation Both eyes: 1.0% Mydriacyl, 2.5% Phenylep hrine @ 9:41 Glare Testing (BAT) Off High Right eye 20/70 20/80 Left eye 20/70 20/100 Slit Lamp Exam Right eye Left eye Lids/Lashes Normal Normal Conjunctiva/Sclera White and quiet White and quiet Cornea Clear Clear Anterior Chamber Deep and quiet Deep and quiet Iris Round and reactive, dilates to Round and reactive, dilates to 7.5mm, no NVI - dilated 7.5mm, no NVI - dilated Lens 2+ Nuclear sclerosis, no 2+ Nuclear scle rosis, no Pseudoexfoliation Pseudoexfoliation Vitreous Normal Normal Fundus Exam Right eye Left eye Disc Normal, no NVD Normal, no NVD C/D Ratio 0.5 0.45 Macula Normal, no MA's Normal, no MA's Vessels Normal Normal Periphery Normal, no retinopathy Normal, no retino brinda Wearing Rx Sphere Cylinder Add Right eye -0.25 Sphere +2.75 Left eye -0.25 Sphere +2.75 Type: Bifocal Manifest Refraction #1 (Auto) Sphere Cylinder [place] Dist VA Add Near VA Right eye [place] +0.50 176 Left eye [place] +0.50 019 Manifest Refraction #2 Sphere Cylinder [place] Dist VA Add Near VA Right eye -0.50 +0.25 155 20/70 +2.75 20/400 Left eye -0.50 +0.25 045 20/70 +2.75 20/400 Care Teams Financial Services Technician Relationship Specialty Start Date End Date Lamberto Henderson MD PCP - General 07/17/11 03/21/[address] [phone] documented as of this encounter
--- OUTSIDE RECORDS SUMMARY | 2022-03-17 00:38 | XMS_ITS | Encounter Summary ---
:1960 Author Organization [facility] Address [address] [place] [address] Care Team Providers Name Role Phone Ovidio Linares MD Primary Care Provider Pio Odonnell MD Primary Care Provider [phone] Encounter Details Date Type Department Care Team Description 05/30/2016 Historical Results [facility] - Vicki Sanchez Only [facility] Radiology Resul shila Ferrera PA-C [address] [place] [address] [address] [phone] [place] [address] Social History Tobacco Use Types Packs/Day Years [...] Urology Reji Foster MD [address] [facility], [facility], [address] [place], [place] [address] (Wo rk) documented as of this encounter Visit Diagnoses Not on filedocumented in this encounter Additional Health Concerns Infection Onset Date Last Indicated Resolved Time MRSAComment: IP note: risk factors - DM, impaired mobility, [facility]ci resident 02/25/2015 02/25/2015 Pos nares 02/25/2015 Neg nares 11/02/18 Neg nares 12/13/18 N [place] 12/13/18 documented as of this encounter Care Teams Trailer Steerer Relationship Specialty Start Date End Date Ovidio Linares MD PCP - General 03/22/16 10/30/[address] [place] [address] [address] [place] [phone] Pio Odonnell MD PCP - General 10/31/18 04/20/21 [address] [place] [address] documented as of this encounter
--- OUTSIDE RECORDS SUMMARY | 2022-03-17 00:38 | XMS_ITS | Encounter Summary ---
:1960 Author Organization [facility] Address [address] [place] [address] Care Team Providers Name Role Phone Lamberto Henderson MD Primary Care Provider Encounter Details Date Type Department Care Team Description 09/30/2015 Hospital Encounter [facility] Barbra Khalil [facility] MD Felix [address] [address] [place] [phone] (Wo rk) Social History Tobacco Use Types [...] documented as of this encounter Discharge Instructions Jaqui Rey RN - 09/30/2015 RADIOLOGY PATIENT EDUCATION INSTRUCTIONS FOR WOUND CARE FOLLOWING drain REMOVAL 09/30/2015 Procedure Site - Abdomen Physician Performing Procedure - Lit Rand MD s You may resume your normal diet after the procedure. s You may use Tylenol (1-2 tablets every 4-6 hours) by mouth for mild discomfort. DO NOT take products containing aspirin or ibuprofen, vitamin E, or blood thinning products for 24 hours following yourprocedure. s The wound dressing consists of sterile gauze and Tegaderm or tape. Check the dressing throughout the day. If you notice any swelling, oozing, or brisk bleeding, immediately apply pressure to the areafor 10 minutes. Slowly release the pressure and check to see if the bleeding has stopped. Repeat theprocess again if necessary. If bleeding does not stop at this point, seek medical attention by calling 911 or going to the nearest emergency room. s Keep the dressing dry. Change the dressing on 10/01/2015. Remove Tegaderm and white gauze. Inspect the site for signs of infection, redness, yellow drainage, or swelling. Report a temperature of greater than 101 degrees F or 38.3 C. After inspecting the wound, you can apply a thin layer of bacitracin (antibiotic ointment) and cover with a dry sterile gauze dressing. Leave covered until scabbed and then you can leave the site open to air with no dressing. s You may shower on 10/01/2015. You may be instructed to avoid getting your dressing wet but still be allowed to shower as long as you cover your dressing with saran wrap. You should not submerge in water, tub bath, swimming or hot tubs for 5 days following your procedure. ?? IF YOU HAVE ANY QUESTIONS OR CONCERNS REGARDING THE PROCEDURE, PLEASE CALL THE INTERVENTIONAL RADIOLOGY CLINIC AT . SOMEONE IS AVAILABLE TO TAKE YOUR CALL 24 HOURS A DAY. 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 Diagnostic images taken by [facility] under Fluro. Drain removed anddrsg applied over site. [facility] and discharge instruction was sent with ambulance crew. Christine Curiel RN - 09/29/2015 1009 EST Pre call placed regarding cholangiogram scheduled for 09/30/2015 at 0830. Voicemail received. Registration - 08 NPO - Last Solid Food: 0000 Last Clear Liquid: 0530 Medications - To be administered with a small amount of water the morning of procedure - may take long acting insulin at 80% usual dose. Instructed to bring current medication list, leave all valuables at home and arrive with a class a truck driver. Suggested patient shower with antimicrobial soap. Instructed to bring BiPAP or CPAP if applicable. Provided with [facility] telephone number for questions or concerns. * Call received from spouse and patient currently residing at [facility]. Instructions provided to Qian (Nurse). documented in this encounter Procedure Notes Tamir Howe PA - 09/30/2015 0856 EST IR Procedure Note Procedure: Cholangiogram and tube removal Date Performed: 09/30/2015 Radiologist/Photographic Colorist(s): Clemencia Russell PAHimanshuC Sedation/Anesthesia: None Time Out: A time-out was completed prior to procedure verifying correct patient, procedure, site, positioning, and special equipment if applicable. Estimated Blood Loss: Unless otherwise noted, there was no blood loss, specimens removed, cultures obtained, or drains retained. Specimens: None Fluoroscopy Time: 0.8 Min Contrast Volume: Omnipaque 300- 20 cc GI Complications: No Condition: Stable Post Procedure Diagnosis: S/P Percutaneous Stone Extraction Findings: Pt tube has been capped without issues for ~ 2 weeks follow down sizing. Injection of contrast demonstrate free flow of contrast from the gall bladder to the duodenum. No significant filling defects are identified. Discussed findings with Dr Rand, and the drain was removed. Recommendations: Follow wound care instructions. MANDO Kraft 09/30/2015 8:57 documented in this encounter Plan of Treatment Upcoming Encounters Date Type Specialty Care Team Description 06/13/2022 Appointment Radiology 06/13/2022 Office Visit Urology Reji Foster MD [address] [facility], [facility], [address] [place], [place] [address] (Wo rk) documented as of this encounter Visit Diagnoses Not on filedocumented in this encounter Additional Health Concerns Infection Onset Date Last Indicated Resolved Time MRSAComment: IP note: risk factors - DM, impaired mobility, custodial resident 02/25/2015 02/25/2015 Pos nares 02/25/2015 Neg nares 11/02/18 Neg nares 12/13/18 N [place] 12/13/18 documented as of this encounter Care Teams Air Hose Coupler Relationship Specialty Start Date End Date Lamberto Henderson MD PCP - General 07/17/11 03/21/16 [address] [facility] [address] [place] [address] documented as of this encounter
--- OUTSIDE RECORDS SUMMARY | 2022-03-17 00:38 | XMS_ITS | Encounter Summary ---
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 First Ordered Date ACTIVITY INSTRUCTIONS 2 07/30/2015 CHANGE DRESSING 1 07/30/2015 INSERT PERIPHERAL IV 1 07/30/2015 NOTIFY PHYSICIAN (SPECIFY) 1 07/30/2015 NOTIFY SOCIAL WORK 1 07/30/2015 OXYGEN THERAPY 1 07/30/2015 POST PROCEDURE SITE ASSESSMENT 1 07/30/2015 REMOVE IV 1 07/30/2015 UP AD YASSINE 1 07/30/2015 Transfer Count Last Ordered Date First Ordered Date NOTIFY PPS OF DISCHARGE COMPLETE 1 07/30/2015 Discharge Count Last Ordered Date First Ordered Date DISCHARGE PATIENT 1 07/30/2015 Legal Count Last Ordered Date First Ordered Date MISCELLANEOUS DISCHARGE INSTRUCTIONS 9 07/30/2015 documented in this encounter Additional Health Concerns Infection Onset Date Last Indicated Resolved Time MRSAComment: IP note: risk factors - DM, impaired mobility, long term resident 02/25/2015 02/25/2015 Pos nares 02/25/2015 Neg nares 11/02/18 Neg nares 12/13/18 N [place] 12/13/18 documented as of this encounter Care Teams Production Trainer Relationship Specialty Start Date End Date Lamberto Henderson MD PCP - General 07/17/11 03/21/[address] [facility] [address] [place] [address] documented as of this encounter
--- OUTSIDE RECORDS SUMMARY | 2022-03-17 00:38 | XMS_ITS | Encounter Summary ---
:1960 Author Organization [facility] Address [address] [place] [address] Care Team Providers Name Role Phone Ovidio Linares MD Primary Care Provider [phone] Reason for Visit Reason Comments Post-OP Follow Up POD #1 s/p CE/PCIOL, right e ye Encounter Details Date Type Department Care Team Description 06/16/2016 Office Visit [facility] Romeo Hunt MD Ophthalmology - [place] [address] [place] [id number] [place] [address] [phone] Social History Tobacco Use Types Packs/Day Years [...] Sig Dispensed Refills Start Date End Date ketOROLAC tromethamine Place 1 Drop into 5 mL 1 201511/02/2018 (ACULAR LS) 0.4 % the left eye 4 dropsIndications: Senile times daily. nuclear sclerosis, left prednisoLONE (PRED FORTE) Place 1 Drop into 1 Bottle 1 11/02/2018 1 % ophthalmic the left eye 4 suspensionIndications: times daily. Senile nuclear sclerosis, left documented in this encounter Progress Notes Ryan Hunt MD - 06/16/2016 0900 EDT Chief Complaint: Pseudophakia, Cataract Post-Op Day 1, right eye HPI The patient is a 56 y.o. female, POD #1 s/p Cataract extraction with PCIOL, right eye. There was no pain overnight and the patient slept with the shield in place. Location: Pain: 0 - No pain Quality: Severity: Duration: Timing: Lasts: Context: POD #1 s/p CE/PCIOL, right eye-- Vision still a little blurry, no pain, no flashes, no floaters. Modifying factors: Associated Signs & Symptoms: Visual Fluctuations: None Attestation: Base Eye Exam Visual Acuity (Snellen - Linear) Right Left Dist sc 20/300 Dist ph sc 20/70 Tonometry (Tonopen, 9:09) Right Left Pressure 16 Neuro/Psych Oriented x3: Yes Mood/Affect: Normal Additional Notes Additional Notes Patient only had Ketorolac and Ofloxacin in bag gave 1 drop of each Drop of Omnipred given from in office Slit Lamp and Fundus Exam Slit Lamp Exam Right Left Lids/Lashes Normal Normal Conjunctiva/Sclera White and quiet White and quiet Cornea incisions sealed, trace edema Clear Anterior Chamber deep, 2+ Cell Deep and quiet Iris slightly dilated Round and reactive, dilates to 7.5mm, no NVI - dilated Lens Centered posterior chamber intraocular lens 2+ Nuclear sclerosis, no Pseudoexfoliation Fundus Exam Right Left Disc clear view to posterior pole IMPRESSION & PLAN: POD #1 s/p Cataract Extraction with PCIOL, right eye (06/15/16) -patient is doing well -Use Ofloxacin, ketorolac and PF QID (drop schedule given) -Continue to wear plastic shield over eye at night for 1 week. -Warnings and precautions discussed. -RTC 1 week or sooner PRN eye redness/pain or worsening vision Cataract, left eye -scheduled for surgery 06/29/16, consent signed & meds ordered I have reviewed the patient's past medical, family, social and surgical history. I have also reviewed the patient's medications, allergies, and problem list. I performed my own HPI and have reviewed the tech's ROS as well. I personally completed this exam myself. Ryan Hunt MD documented in this encounter Plan of Treatment Upcoming Encounters Date Type Specialty Care Team Description 06/13/2022 Appointment Radiology 06/13/2022 Office Visit Urology Reji Foster MD [address] [place] [address], [facility] [address] [place] [phone] (Wo rk) documented as of this encounter Visit Diagnoses Diagnosis S/P cataract surgery, right - Primary Senile nuclear sclerosis, left documented in this encounter Additional Health Concerns Infection Onset Date Last Indicated Resolved Time MRSAComment: IP note: risk factors - DM, impaired mobility, correction resident 02/25/2015 02/25/2015 Pos nares 02/25/2015 Neg nares 11/02/18 Neg nares 12/13/18 N [place] 12/13/18 documented as of this encounter Eye Exam Visual Acuity (Snellen - Linear) Right eye Left eye Dist sc 20/300 Dist ph sc 20/70 Tonometry (Tonopen, 9:09) Right eye Left eye Pressure 16 Neuro/Psych Oriented x3: Yes Mood/Affect: Normal Patient only had Ketorolac and Ofloxacin in bag gave 1 drop of each Drop of Omnipred given from in office Slit Lamp Exam Right eye Left eye Lids/Lashes Normal Normal Conjunctiva/Sclera White and quiet White and quiet Cornea incisions sealed, trace edema Clear Anterior Chamber deep, 2+ Cell Deep and quiet Iris slightly dilated Round and reactive, dilates to 7.5mm, no NVI - dila leni Lens Centered posterior chamber 2+ Nuclear sc lerosis, no intraocular lens Pseudoexfoliation Fundus Exam Right eye Left eye Disc clear view to posterior pole 

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
--- OUTSIDE RECORDS SUMMARY | 2022-03-17 00:38 | XMS_ITS | Encounter Summary ---
:1960 Author Organization [facility] Address [address] [place] [address] Care Team Providers Name Role Phone Ovidio Linares MD Primary Care Provider [phone] Reason for Visit Reason Comments Post-OP Follow Up POW #1 s/p CE/PCIOL, right e ye Encounter Details Date Type Department Care Team Description 06/23/2016 Office Visit [facility] Romeo Hunt MD Ophthalmology - [place] in [address] [place] [phone] [place] [address] [phone] Social History Tobacco Use Types Packs/Day Years [...] as of this encounter Patient Instructions Patient InstructionsRyan Hunt MD - 06/23/2016 9:30 EDT Surgery scheduled for 06/29/16, Left eye Start using Ketorolac (faust cap) 2 days before your surgery four times daily in the left eye. (Breakfast, Lunch, Dinner, Bedtime) Sunday06/27/16 & Sunday06/28/16. Start using Ofloxacin (hussein cap) the night before your surgery in the Left eye. 1 drop at 5:00pm, 6:00pm, 7:00pm, and 8:00pm and 1 drop when you wake up the next morning. Sunday06/28/16 & 06/29/16. documented in this encounter Progress Notes Ryan Hunt MD - 06/23/2016 0929 EDT Chief Complaint: Pseudophakia, Cataract Post-Op Week 1, right eye, HPI The patient is a 56 y.o. female, POW #1 s/p CE/PCIOL, right eye. Patient denies eye pain and has used drops as instructed. Location: Pain: Quality: Severity: Duration: Timing: Lasts: Context: POD #1 s/p CE/PCIOL, right eye-- Vision still a little blurry, no pain, no flashes, no floaters. Modifying factors: Associated Signs & Symptoms: Visual Fluctuations: None Attestation: Base Eye Exam Visual Acuity (Snellen - Linear) Right Left Dist sc 20/50 +2 Tonometry (Tonopen, 9:41) Right Left Pressure 16 Pupils Pupils Right PERRL Left PERRL Neuro/Psych Oriented x3: Yes Mood/Affect: Normal Slit Lamp and Fundus Exam Slit Lamp Exam Right Left Lids/Lashes Normal Normal Conjunctiva/Sclera White and quiet White and quiet Cornea incisions sealed, clear Clear Anterior Chamber deep, Trace Cell Deep and quiet Iris Round and reactive Round and reactive Lens Centered posterior chamber intraocular lens 2+ Nuclear sclerosis, no Pseudoexfoliation Fundus Exam Right Left Disc clear view to posterior pole Refraction Manifest Refraction (Auto) Sphere Cylinder [place] Right -2.00 +0.75 036 Left IMPRESSION & PLAN: POW #1 s/p CE/PCIOL, right eye (06/15/16) -patient is doing well -D/C Ofloxacin -Continue ketorolac QID until bottle runs out -Taper PF TID X 1 week, BID X 1 week (according to drop schedule given) -Warnings and precautions discussed Cataract, left eye -scheduled for surgery, meds ordered & consent signed last week I have reviewed the patient's past medical, [...] 06/13/2022 Office Visit Urology Reji Foster MD [address] [place] [address], [facility], [address] [place], [place] [address] (Wo rk) documented as [...] Linear) Right eye Left eye Dist sc 20/50 +2 Tonometry (Tonopen, 9:41) Right eye Left eye Pressure 16 Pupils Pupils Right eye PERRL Left eye PERRL Neuro/Psych Oriented x3: Yes Mood/Affect: Normal Slit Lamp Exam Right eye Left eye Lids/Lashes Normal Normal Conjunctiva/Sclera White and quiet White and quiet Cornea incisions sealed, clear Clear Anterior Chamber deep, Trace Cell Deep and quiet Iris Round and reactive Round and reactive Lens Centered posterior chamber 2+ Nuclear sc lerosis, no intraocular lens Pseudoexfoliation Fundus Exam Right eye Left eye Disc clear view to posterior pole Manifest Refraction (Auto) Sphere Cylinder [place] Right eye -2.00 +0.75 036 Left eye Care Teams Executive Receptionist Relationship Specialty Start Date End Date Ovidio Linares MD PCP - General 03/22/16 10/30/[address] [place] [address] [place] [phone] documented as of this encounter
--- OUTSIDE RECORDS SUMMARY | 2022-03-17 00:38 | XMS_ITS | Encounter Summary ---
:1960 Author Organization Address [address] [place] [address] Care Team Providers Name Role Phone Ovidio Linares MD Primary Care Provider [phone] Reason for Visit Reason Comments Post-OP Follow Up POW #2 s/p CE/PCIOL, left ey e Encounter Details Date Type Department Care Team Description 07/14/2016 Office Visit [facility] Romeo Hunt MD Ophthalmology - [place] in [address] [place] [phone] [place] [address] [phone] Social History Tobacco Use Types Packs/Day Years [...] encounter Progress Notes Ryan Hunt MD - 07/14/2016 0943 EDT Chief Complaint: Pseudophakia, Cataract Post-Op Week 2, left eye, HPI The patient is a 56 y.o. female, POW #2 s/p CE/PCIOL, left eye. Patient denies eye pain and has useddrops as instructed. Location: Pain: 0 - No pain Quality: Severity: Duration: Timing: Lasts: Context: POW #2 s/p CE/PCIOL, left eye, doing well, seeing great. No flashes of light or floaters, no pain. Modifying factors: Associated Signs & Symptoms: Visual Fluctuations: None Attestation: Base Eye Exam Visual Acuity (Snellen - Linear) Right Left Dist sc 20/70 20/25 Tonometry (Tonopen, 9:55) Right Left Pressure 14 16 Neuro/Psych Oriented x3: Yes Mood/Affect: Normal Slit Lamp and Fundus Exam Slit Lamp Exam Right Left Lids/Lashes Normal Normal Conjunctiva/Sclera White and quiet White and quiet Cornea incisions sealed, clear incisions sealed, clear Anterior Chamber Deep and quiet, deep deep, rare Cell Iris Round and reactive slightly dilated Lens Centered posterior chamber intraocular lens Centered posterior chamber intraocular lens Fundus Exam Right Left Disc clear view to posterior pole clear view to posterior pole Refraction Manifest Refraction (Auto) Sphere Cylinder [place] Right -1.75 +0.50 027 Left -0.25 +0.25 180 IMPRESSION & PLAN: POW #2 s/p CE/PCIOL, left eye -patient is doing well -D/C Ofloxacin -Continue ketorolac QID until bottle runs out -Taper PF TID X 1 week, BID X 1 week (according to drop schedule given) -Warnings and precautions discussed -return in 1 wk for dilated post-op & refraction I have reviewed the patient's past medical, [...] 06/13/2022 Office Visit Urology Reji Foster MD [address] [place] [address], [facility], [address] [place], [place] [address] (Wo rk) documented as of this encounter Visit Diagnoses Diagnosis S/P cataract surgery, left - Primary documented in this encounter Additional Health Concerns Infection Onset Date Last Indicated Resolved Time MRSAComment: IP note: risk factors - DM, impaired mobility, halfway resident 02/25/2015 02/25/2015 Pos nares 02/25/2015 Neg nares 11/02/18 Neg nares 12/13/18 N [place] 12/13/18 documented as of this encounter Eye Exam Visual Acuity (Snellen - Linear) Right eye Left eye Dist sc 20/70 20/25 Tonometry (Tonopen, 9:55) Right eye Left eye Pressure 14 16 Neuro/Psych Oriented x3: Yes Mood/Affect: Normal Slit Lamp Exam Right eye Left eye Lids/Lashes Normal Normal Conjunctiva/Sclera White and quiet White and quiet Cornea incisions sealed, clear incisions sealed , clear Anterior Chamber Deep and quiet, deep deep, rare Cell Iris Round and reactive slightly dilated Lens Centered posterior chamber Centered post erior chamber intraocular lens intraocular lens Fundus Exam Right eye Left eye Disc clear view to posterior pole clear view to posterior pole Manifest Refraction (Auto) Sphere Cylinder [place] Right eye -1.75 +0.50 027 Left eye -0.25 +0.25 180 Care Teams Dental Instructor Relationship Specialty Start Date End Date Ovidio Linares MD PCP - General 03/22/16 10/30/18 [facility] [address] [place] [address] documented as of this encounter
--- OUTSIDE RECORDS SUMMARY | 2022-03-17 00:38 | XMS_ITS | Encounter Summary ---
:1960 Author Organization [facility] Address [address] [place] [address] Care Team Providers Name Role Phone Ovidio Linares MD Primary Care Provider [phone] Reason for Visit Reason Comments Post-OP Follow Up POD #1 s/p CE/PCIOL, left ey e Encounter Details Date Type Department Care Team Description 06/30/2016 Office Visit [facility] Romeo Hunt MD Ophthalmology - [place] in [address] [place] [address] [place] [address] [phone] Social History Tobacco Use Types Packs/Day Years [...] encounter Progress Notes Ryan Hunt MD - 06/30/2016 0944 EDT Chief Complaint: Pseudophakia, Cataract Post-Op Day 1, left eye HPI The patient is a 56 y.o. female, POD #1 s/p Cataract extraction with PCIOL, left eye. There was no pain overnight and the patient slept with the shield in place. Location: Pain: Quality: Severity: Duration: Timing: Lasts: Context: POD #1 s/p CE/PCIOL, left eye--Doing well no pain last night. Modifying factors: Associated Signs & Symptoms: Visual Fluctuations: None Attestation: Base Eye Exam Visual Acuity (Snellen - Linear) Right Left Dist sc 20/50 Tonometry (Tonopen, 9:36) Right Left Pressure 16 Neuro/Psych Oriented x3: Yes Mood/Affect: Normal Additional Notes Additional Notes 1st set of drops given Slit Lamp and Fundus Exam Slit Lamp Exam Right Left Lids/Lashes Normal Normal Conjunctiva/Sclera White and quiet Trace Injection Cornea incisions sealed, clear incisions sealed, trace edema over incision Anterior Chamber Deep and quiet, deep deep, 2+ Cell Iris Round and reactive slightly dilated Lens Centered posterior chamber intraocular lens Centered posterior chamber intraocular lens Fundus Exam Right Left Disc clear view to posterior pole clear view to posterior pole IMPRESSION & PLAN: POD #1 s/p Cataract Extraction with PCIOL, left eye (06/29/16) -patient is doing well -Use Ofloxacin, ketorolac and PF QID (drop schedule given) -Continue to wear plastic shield over eye at night for 1 week. -Warnings and precautions discussed. -RTC 1 week or sooner PRN eye redness/pain or worsening vision POW #2 s/p CE/PCIOL, right eye (06/15/16) -patient is doing well with decreasing inflammation -continue to taper PF -continue ketorolac QID until finished I have reviewed the patient's past medical, [...] Office Visit Urology Reji Foster MD [address] [facility], [facility], [address] [place], [place] [address] (Wo rk) documented as of this encounter Visit Diagnoses Diagnosis S/P cataract surgery, left - Primary S/P cataract surgery, right documented in this encounter Additional Health Concerns Infection Onset Date Last Indicated Resolved Time MRSAComment: IP note: risk factors - DM, impaired mobility, half-way resident 02/25/2015 02/25/2015 Pos nares 02/25/2015 Neg nares 11/02/18 Neg nares 12/13/18 N [place] 12/13/18 documented as of this encounter Eye Exam Visual Acuity (Snellen - Linear) Right eye Left eye Dist sc 20/50 Tonometry (Tonopen, 9:36) Right eye Left eye Pressure 16 Neuro/Psych Oriented x3: Yes Mood/Affect: Normal 1st set of drops given Slit Lamp Exam Right eye Left eye Lids/Lashes Normal Normal Conjunctiva/Sclera White and quiet Trace Injection Cornea incisions sealed, clear incisions sealed , trace edema over incision Anterior Chamber Deep and quiet, deep deep, 2+ Cell Iris Round and reactive slightly dilated Lens Centered posterior chamber Centered post erior chamber intraocular lens intraocular lens Fundus Exam Right eye Left eye Disc clear view to posterior pole clear view to posterior pole Care Teams Construction Framer Relationship Specialty Start Date End Date Ovidio Linares MD PCP - General 03/22/16 10/30/18 [facility] [address] [place] [address] documented as of this encounter
--- OUTSIDE RECORDS SUMMARY | 2022-03-17 00:38 | XMS_ITS | Encounter Summary ---
:1960 Author Organization [facility] Address [address] [place] [address] Care Team Providers Name Role Phone Ovidio Linares MD Primary Care Provider [phone] Pio Odonnell MD Primary Care Provider [phone] Encounter Details Date Type Department Care Team Description 05/31/2016 Historical Results [facility] - Vicki Sanchez Only [facility] Radiology Resul shila Ferrera PA-C [address] [place] [address] Road [phone] [place] [address] Social History Tobacco Use Types [...] Visit Urology Cristian, Reji Fletcher MD [address] [facility], [facility], [address] [place], [place] [address] (Wo rk) documented as of this encounter Procedures Procedure Name Priority Date/Time Associated Diagnosis Comme nts XR SHOULDER LEFT 2 05/31/2016 13:02 Resul ts for this OR MORE VIEWS EDT procedure are in the results section. documented in this encounter Results XR SHOULDER LEFT 2 OR MORE VIEWS (05/31/2016 13:02 EDT) Specimen Narrative RADIOLOGY - 05/31/2016 13:06 EDT ? EXAM: RADIOLOGY/SHOULDER LT 2+VIEWS ? EX. D/ (1410) ? CLINICAL INFORMATION: ? S42.209A PROXIMAL HUMERAL FX ? INDICATION: S42.209A PROXIMAL HUM ERAL FX. ? COMPARISON: Left shoulder radiogr aph 04/26/2016. ? TECHNIQUE: 3 views of the left sh oulder were obtained. ? FINDINGS: There has been interval , incomplete healing of the fracture ? of the left humerus surgical neck . The position and alignment is ? unchanged when compared to the pr ior examination. No other interval ? change is seen. ? IMPRESSION: Healing fracture of t he left humerus. ? REPORT SIGNED IN OTHER VENDOR SYSTEM 05/31/2016 ?Reported B y: Duglas Barber MD ? CC: ? Transcribed Date/Time: 05/31/2016 (1505) ? Membership Sales Manager: ? Printed Date/Time: 03/07/2019 (11 24) ? PAGE 1 ? Marichuy d Report ? Procedure Note Duglas Barber MD - 07/30/2019 EXAM: RADIOLOGY/SHOULDER LT 2+VIEWS EX. D/ (1410) CLINICAL INFORMATION: S42.209A PROXIMAL HUMERAL FX INDICATION: S42.209A PROXIMAL HUMERAL F X. COMPARISON: Left shoulder radiograph 04/26/2016. TECHNIQUE: 3 views of the left shoulder were obtained. FINDINGS: There has been interval, inco mplete healing of the fracture of the left humerus surgical neck. The position and alignment is unchanged when compared to the prior ex amination. No other interval change is seen. IMPRESSION: Healing fracture of the lef t humerus. REPORT SIGNED IN OTHER VENDOR SYSTEM 05/31/2016 Reported By: Duglas Barber MD CC: Transcribed Date/Time: 05/31/2016 (1413 ) Membership Sales Manager: Printed Date/Time: 03/07/2019 (3323) PAGE 1 Signed Report Performing Organization Address City/State/ZIP Code Phon e Number RADIOLOGY documented in this encounter Visit Diagnoses Not on filedocumented in this encounter Additional Health Concerns Infection Onset Date Last Indicated Resolved Time MRSAComment: IP note: risk factors - DM, impaired mobility, senior care resident 02/25/2015 02/25/2015 Pos nares 02/25/2015 Neg nares 11/02/18 Neg nares 12/13/18 N [place] 12/13/18 documented as of this encounter Care Teams Engraver Set Up Operator Relationship Specialty Start Date End Date Ovidio Linares MD PCP - General 03/22/16 10/30/[address] [place] [address] [address] [place] [phone] Pio Odonnell MD PCP - General 10/31/18 04/20/[address] [place] [phone] documented as of this encounter
--- OUTSIDE RECORDS SUMMARY | 2022-03-17 00:38 | XMS_ITS | Encounter Summary ---
:1960 Author Organization [facility] Address [address] [place] [address] Care Team Providers Name Role Phone Lamberto Henderson MD Primary Care Provider Encounter Details Date Type Department Care Team Description 09/01/2015 Pre-Procedure [facility] Tamir Howe, Orders Encounter Interventional Radiology PA-C [phone] [place] [address], [facility] [address] [place] [address] (Wo rk) Social History Tobacco [...] Urology Reji Foster MD [address] [facility], [facility], [address] [place], [place] [address] (Wo rk) documented as of this encounter Visit Diagnoses Not on filedocumented in this encounter Additional Health Concerns Infection Onset Date Last Indicated Resolved Time MRSAComment: IP note: risk factors - DM, impaired mobility, halfway resident 02/25/2015 02/25/2015 Pos nares 02/25/2015 Neg nares 11/02/18 Neg nares 12/13/18 N [place] 12/13/18 documented as of this encounter Care Teams Driller And Reamer Relationship Specialty Start Date End Date Lamberto Henderson MD PCP - General 07/17/11 03/21/16 [address] [facility] [address] [place] [address] documented as of this encounter
--- OUTSIDE RECORDS SUMMARY | 2022-03-17 00:38 | XMS_ITS | Encounter Summary ---
:1960 Author Organization [facility] Address [address] [place] [address] Care Team Providers Name Role Phone Ovidio Linares MD Primary Care Provider [phone] Encounter Details Date Type Department Care Team Description 05/30/2016 Hospital Encounter [facility], [facility] [phone] [place] [address] (Work) [place] [address] Social History Tobacco Use Types Packs/Day Years [...] the skin 0 201411/02/2018 GLARGINE,HUM.REC.ANLOG (LANTUS SUBQ) ketOROLAC tromethamine Place 1 Drop into the 5 mL 2 07/20/2016 (ACULAR LS) 0.4 % right eye 4 times dropsIndications: Senile daily. nuclear sclerosis, right magnesium oxide (MAG-OX) Take 400 mg by mouth 0 11/02/2018 400 mg tablet 2 times daily mycophenolate mofetil Take 0.5 mL by mouth 3 Bottle 1 05/2504/20/2021 (CELLCEPT) 200 mg/mL daily. Need labs done suspensionIndications: every 3 months Vasculitis, primary REGIONAL DIRECTOR OF FINANCE (HCC-CMS) (HCC) nitroGLYCERIN Place 0.4 mg under 0 05/2019 (NITROSTAT) 0.4 mg SL the tongue every 5 tablet minutes as needed. ofloxacin (OCUFLOX) 0.3 Place 1 Drop into the 1 Bottle 0 0 05/19/2016 11/02/2018 % ophthalmic right eye 4 times solutionIndications: daily. Senile nuclear sclerosis, right ondansetron (ZOFRAN) [...] solution prednisoLONE (PRED Place 1 Drop into the 1 Bottle 2 201507/20/2016 FORTE) 1 % ophthalmic right eye 4 times suspensionIndications: daily. Senile nuclear sclerosis, right predniSONE (DELTASONE) 5 Take 2.5 mg by [...] Code Departure Means Destination Home or Self Retirement documented in this encounter Plan of Treatment Upcoming Encounters Date Type Specialty Care Team Description 06/13/2022 Appointment Radiology 06/13/2022 Office Visit Urology Reji Foster MD [address] [place] [facility], [facility], [address] [place], [place] [address] (Wo rk) documented as of this encounter Visit Diagnoses Not on filedocumented in this encounter Additional Health Concerns Infection Onset Date Last Indicated Resolved Time MRSAComment: IP note: risk factors - DM, impaired mobility, skilled nursing resident 02/25/2015 02/25/2015 Pos nares 02/25/2015 Neg nares 11/02/18 Neg nares 12/13/18 N [place] 12/13/18 documented as of this encounter Care Teams Yeast Maker Relationship Specialty Start Date End Date Ovidio Linares MD PCP - General 03/22/16 10/30/[address] [place] [address] [address] [place] [address] documented as of this encounter
--- OUTSIDE RECORDS SUMMARY | 2022-03-17 00:38 | XMS_ITS | Encounter Summary ---
:1960 Author Organization [facility] Address [address] [place] [address] Care Team Providers Name Role Phone Lamberto Henderson MD Primary Care Provider Reason for Visit Reason Onset Date Comments Care Home 07/30/2015 Encounter Details Date Type Department Care Team Description 07/30/2015 Orders Only [facility] Luz Elena Morgan Insomnia , unspecified insomnia (Primary Dx); Family Medicine - MD Unique Other chronic pain [address] [facility] [address] [phone] Social History Tobacco Use Types Packs/Day Years [...] or older) documented as of this encounter Ordered Prescriptions Prescription Sig Dispensed Refills Start Date End Date zolpidem (AMBIEN) 5 mg Take 1 Tab by mouth 5 Tab 0 02/201508/04/2015 tabletIndications: at bedtime as needed Insomnia, unspecified for up to 5 days for insomnia Sleep Daily Max: 5 mg oxyCODONE (ROXICODONE) 5 Take 1 Tab by mouth 30 Tab 0 08/04/2015 mg immediate release every 4 hours as tabletIndications: Other needed for up to 5 chronic pain days for Pain Daily Max: 30 mg documented in this encounter Progress Notes Danny Beckwith - 07/30/2015 1649 EST Faxed scripts to [facility] pharmacy with a cover letter stating that patient would be going to [facility] in [facility]. DANNY BECKWITH RN 07/30/2015 16:50 Luz Elena Roche MD - 07/30/2015 3721 EST Asked by Kylie Rosales MANAGER SERVICES to help facilitate transfer of Ms. Barrera [facility]. She is a 55 yo chronically ill woman with long-term immunosuppression who was admitted to the [facility] over the summer with sepsis related to cholangitis. A biliary drain was placed. She came to today for drain management and reported that she does not feel safe at home. Ms. Rosales was able to arrange transfer to [facility] rather than inpatient admission but needs MD confirmation of medication orders. She will be followed by one of the [facility] attendings while at the nursing facility, which is my group. They do not need MD to MD communication. Completed medication reconciliation with Ms. Rosales, who had confirmed all medications with Dr. Henderson' office. Completed the discharge to extended care facility order set. COLST on file indicates Full Code. Dysphagia diet and PROTOZOOLOGIST eval ordered due to stroke history. Requested PT/OT as well as social work consultations. Ordered QAC/QHS finger stick blood glucose testing given history of diabetes. Approved 5 days of zolpidem and oxycodone as it is Sunday evening, so this should provide adequate medication until the accepting physician can see her. These will need to be faxed to the appropriate pharmacy. Checked with staff at [facility] - these [facility] go to [facility]. documented in this encounter Plan of Treatment Upcoming Encounters Date Type Specialty Care Team Description 06/13/2022 Appointment Radiology 06/13/2022 Office Visit Urology Reji Foster MD [address] [place] [address], [address] [place], [place] [address] (Wo rk) documented as of this encounter Visit Diagnoses Diagnosis Insomnia, unspecified insomnia - Primary Other chronic pain documented in this encounter Discontinued Medications Medication Sig Discontinue Reason Start Date End Date oxyCODONE (ROXICODONE) 5 Take 5 mg by mouth Reorder 07/30/2015 mg immediate release every 4 hours as tablet needed for Pain zolpidem (AMBIEN) 5 mg Take 5 mg by mouth Reorder 07/30/2015 tablet at bedtime as needed for Sleep documented as of this encounter Additional Health Concerns Infection Onset Date Last Indicated Resolved Time MRSAComment: IP note: risk factors - DM, impaired mobility, long term resident 02/25/2015 02/25/2015 Pos nares 02/25/2015 Neg nares 11/02/18 Neg nares 12/13/18 N [place] 12/13/18 documented as of this encounter Care Teams Concrete Tile Machine Operator Relationship Specialty Start Date End Date Lamberto Henderson MD PCP - General 07/17/11 03/21/16 [address] [facility] [address] [place] [phone] documented as of this encounter
--- OUTSIDE RECORDS SUMMARY | 2022-03-17 00:38 | XMS_ITS | Encounter Summary ---
:1960 Author Organization [facility] Address [address] [place] [address] Care Team Providers Name Role Phone Lamberto Henderson MD Primary Care Provider Encounter Details Date Type Department Care Team Description 08/03/2015 Pre-Procedure [facility] Tamir Howe, Orders Encounter Interventional Radiology PA-C [id number] [place] [address], [facility] 1 [place] [address] (Wo rk) Social History Tobacco [...] Office Visit Urology Reji Foster MD 111 [facility], [facility], Level [address] [place], [place] [address] (Wo rk) documented as of this encounter Procedures Procedure Name Priority Date/Time Associated Comments Diagnosis IR CHANGE 09/02/2015 13:05 Results for this PERCUTANEOUS CATHETER EST proced ure are in - SPECIFY TYPE the results section. documented in this encounter Results IR CHANGE PERCUTANEOUS CATHETER - SPECIFY TYPE (09/02/2015 13:05 EST) Anatomical Region Laterality Modality Other Specimen Narrative [facility] - 09/03/2015 13:53 EST Tube cholangiogram, gallstone basket retrieval, and change (downsize) of cholecystostomy tube 1210-15 1143 gina rs History: Gallstones. Please remove. Description: A time out was performed, w ith documentation of two patient identifiers, the correct procedu re, and the correct site. Written consent was obtained. The patien t was prepped and draped in sterile fashion. 1% lidocaine was used f or local analgesia. Conscious sedation was administered with the monit oring of the patient's heart rate, blood pressure, respiratory rate, and oxygen saturation. 400 mg of Cipro was administered intravenously prior to the procedure. A tube cholangiogram was performed. This demonstrates several stones located within the gallbladder. The cyst ic duct and common bile duct are patent. Several different sized stone baskets we re advanced into the gallbladder lumen and deployed. However, only small stone fragments, mucus debris, and blood clot were retrie ash from the gallbladder lumen. No large stone was removed. It is possible that the larger filling defect seen on the initial tube cholangiograms was crushed during this process, turning the larger stone into multiple smaller fragments, which were removed. Over an exchange length guidewire, the 2 0 Gabonese pigtail cholecystostomy tube was exchanged for a new 14 Gabonese pigtail cholecystostomy tube, which was placed i nto the lumen of the gallbladder. A post stone removal tube c holangiogram was performed which demonstrated patent cystic and com mon bile ducts. No residual filling defect was identified within the lumen of the gallbladder to suggest a retained stone. The cholecystostomy tube will be capped for internal drainage. The patient was instructed to open the tube to bag drainage for any of the following signs or symptoms: Jaundic e, right upper quadrant abdominal pain, fever, or shaking chills . The patient tolerated the procedure well . ??No complication occurred. ?? The estimated blood loss during the proc edure was zero. ??7.8 minutes of low dose fluoroscopy was used. Impression: Successful removal of residu al gallstones. The patient will return in 2 weeks for a followup tu be cholangiogram. Procedure Note Jerson Khalil MD - 09/03/2015 Tube cholangiogram, gallstone basket ret rieval, and change (downsize) of cholecystostomy tube 1210-15 1143 gina rs History: Gallstones. Please remove. Description: A time out was performed, w ith documentation of two patient identifiers, the correct procedu re, and the correct site. Written consent was obtained. The patien t was prepped and draped in sterile fashion. 1% lidocaine was used f or local analgesia. Conscious sedation was administered with the monit oring of the patient's heart rate, blood pressure, respiratory rate, and oxygen saturation. 400 mg of Cipro was administered intravenously prior to the procedure. A tube cholangiogram was performed. This demonstrates several stones located within the gallbladder. The cyst ic duct and common bile duct are patent. Several different sized stone baskets we re advanced into the gallbladder lumen and deployed. However, only small stone fragments, mucus debris, and blood clot were retrie ash from the gallbladder lumen. No large stone was removed. It is possible that the larger filling defect seen on the initial tube cholangiograms was crushed during this process, turning the larger stone into multiple smaller fragments, which were removed. Over an exchange length guidewire, the 2 0 Gabonese pigtail cholecystostomy tube was exchanged for a new 14 Gabonese pigtail cholecystostomy tube, which was placed i nto the lumen of the gallbladder. A post stone removal tube c holangiogram was performed which demonstrated patent cystic and com mon bile ducts. No residual filling defect was identified within the lumen of the gallbladder to suggest a retained stone. The cholecystostomy tube will be capped for internal drainage. The patient was instructed to open the tube to bag drainage for any of the following signs or symptoms: Jaundic e, right upper quadrant abdominal pain, fever, or shaking chills . The patient tolerated the procedure well . No complication occurred. The estimated blood loss during the proc edure was zero. 7.8 minutes of low dose fluoroscopy was used. Impression: Successful removal of residu al gallstones. The patient will return in 2 weeks for a followup tu be cholangiogram. Performing Organization Address City/State/ZIP Code Phon e Number [facility] [place] documented in this encounter Visit Diagnoses Not on filedocumented in this encounter Additional Health Concerns Infection Onset Date Last Indicated Resolved Time MRSAComment: IP note: risk factors - DM, impaired mobility, alf resident 02/25/2015 02/25/2015 Pos nares 02/25/2015 Neg nares 11/02/18 Neg nares 12/13/18 N [place] 12/13/18 documented as of this encounter Care Teams Facepiece Line Supervisor Relationship Specialty Start Date End Date Lamberto Henderson MD PCP - General 07/17/11 03/21/16 [address] [facility] [address] [place] [phone] documented as of this encounter
--- OUTSIDE RECORDS SUMMARY | 2022-03-17 00:38 | XMS_ITS | Encounter Summary ---
:1960 Author Organization [facility] Address [address] [place] [address] Care Team Providers Name Role Phone Ovidio Linares MD Primary Care Provider [phone] Pio Odonnell MD Primary Care Provider [phone] Encounter Details Date Type Department Care Team Description 04/26/2016 Historical Results [facility] - Vicki Sanchez Only [facility] Radiology Resul shila Ferrera PA-C [address] [place] [address] [phone] [place] [address] Social History Tobacco Use Types [...] Visit Urology Cristian, Reji Fletcher MD 111 [facility], [facility], [address] [place], [place] [address] (Wo rk) documented as of this encounter Procedures Procedure Name Priority Date/Time Associated Diagnosis Comme nts XR SHOULDER LEFT 2 04/26/2016 16:42 Resul ts for this OR MORE VIEWS EDT procedure are in the results section. XR FOOT RIGHT 3 OR 04/26/2016 16:37 Resul ts for this MORE VIEWS EDT procedure are i n the results section. documented in this encounter Results XR SHOULDER LEFT 2 OR MORE VIEWS (04/26/2016 16:42 EDT) Specimen Narrative [facility] - 04/26/2016 16:46 EDT ? EXAM: RADIOLOGY/SHOULDER LT 2+VIEWS ? EX. D/ (1619) ? CLINICAL INFORMATION: ? S42.209A PROXIMAL HUMERAL FRACTUR E ? INDICATION: S42.209A PROXIMAL HUM ERAL FRACTURE LEFT SHOULDER FX, ? RIGHT FOOT FX ? TECHNIQUE: 3 views left shoulder. ? COMPARISON: 03/13/2016. ? FINDINGS: ?The fracture of th e left humeral neck is again seen. ? Some impaction is again noted and there is some lateral apex ? angulation. No interval changes s een. The humeral head remains seated ? in the glenoid. The left upper malcom ng is clear. ? IMPRESSION: ? 1. Left humeral neck fracture, un changed in alignment. ? REPORT SIGNED IN OTHER VENDOR SYSTEM 04/26/2016 ?Reported B y: Rock Centeno MD ? CC: ? Transcribed Date/Time: 04/26/2016 (1645) ? Director Of Spa And Guest Experience: ? Printed Date/Time: 03/07/2019 (08 17) ? PAGE 1 ? Marichuy d Report ? Procedure Note Rock Centeno MD - 07/30/2019 EXAM: RADIOLOGY/SHOULDER LT 2+VIEWS EX. D/ (8409) CLINICAL INFORMATION: S42.209A PROXIMAL HUMERAL FRACTURE INDICATION: S42.209A PROXIMAL HUMERAL F RACTURE LEFT SHOULDER FX, RIGHT FOOT FX TECHNIQUE: 3 views left shoulder. COMPARISON: 03/13/2016. FINDINGS: The fracture of the left vairnder ral neck is again seen. Some impaction is again noted and there is some lateral apex angulation. No interval changes seen. T he humeral head remains seated in the glenoid. The left upper lung is clear. IMPRESSION: 1. Left humeral neck fracture, unchange d in alignment. REPORT SIGNED IN OTHER VENDOR SYSTEM 04/26/2016 Reported By: Rock Centeno MD CC: Transcribed Date/Time: 04/26/2016 (1645 ) Director Of Spa And Guest Experience: Printed Date/Time: 03/07/2019 (9801) PAGE 1 Signed Report Performing Organization Address City/State/ZIP Code Phon e Number [facility] XR FOOT RIGHT 3 OR MORE VIEWS (04/26/2016 16:37 EDT) Specimen Narrative [facility] - 04/26/2016 16:41 EDT ? EXAM: RADIOLOGY/DEJL-EBFFG-2+VIEW ? EX. D/ (1619) ? CLINICAL INFORMATION: ? S92.309A METATARSAL FRACTURE ? INDICATION: S92.309A METATARSAL F RACTURE LEFT SHOULDER FX, RIGHT FOOT ? FX ? TECHNIQUE: 3 views right foot. ? COMPARISON: 03/13/2016. ? Findings: The patient is diffusel y demineralized. The distal 2nd 3rd ? and 4th metatarsal fractures are again seen. The proximal 1st ? metatarsal fracture is also noted . Alignment is unchanged. Hardware ? within the proximal 1st metatarsa l and spanning the proximal 2nd ? metatarsal is again seen. The pat ient is diffusely demineralized. ? Subtalar joint region screw devic e is seen. Diffuse midfoot joint ? space narrowing is seen. ? IMPRESSION: ? 1. Fractures of the 1st-4th metat arsals, unchanged in alignment. ? 2. Marked diffuse osseous deminer alization. ? REPORT SIGNED IN OTHER VENDOR SYSTEM 04/26/2016 ?Reported B y: Rock Centeno MD ? CC: ? Transcribed Date/Time: 04/26/2016 (1641) ? Director Of Spa And Guest Experience: ? Printed Date/Time: 03/07/2019 (11 24) ? PAGE 1 ? Marichuy d Report ? Procedure Note Rock Centeno MD - 07/30/2019 EXAM: RADIOLOGY/DJTU-HZAWN-5+VIEW EX. D / (1619) CLINICAL INFORMATION: S92.309A METATARSAL FRACTURE INDICATION: S92.309A METATARSAL FRACTUR E LEFT SHOULDER FX, RIGHT FOOT FX TECHNIQUE: 3 views right foot. COMPARISON: 03/13/2016. Findings: The patient is diffusely chacorta neralized. The distal 2nd 3rd and 4th metatarsal fractures are again seen. The proximal 1st metatarsal fracture is also noted. Alig nment is unchanged. Hardware within the proximal 1st metatarsal and spanning the proximal 2nd metatarsal is again seen. The patient i s diffusely demineralized. Subtalar joint region screw device is s een. Diffuse midfoot joint space narrowing is seen. IMPRESSION: 1. Fractures of the 1st-4th metatarsals , unchanged in alignment. 2. Marked diffuse osseous demineralizat ion. REPORT SIGNED IN OTHER VENDOR SYSTEM 04/26/2016 Reported By: Rock Centeno MD CC: Transcribed Date/Time: 04/26/2016 (5575 ) Director Of Spa And Guest Experience: Printed Date/Time: 03/07/2019 (1393) PAGE 1 Signed Report Performing Organization Address City/State/ZIP Code Phon e Number [facility] documented in this encounter Visit Diagnoses Not on filedocumented in this encounter Additional Health Concerns Infection Onset Date Last Indicated Resolved Time MRSAComment: IP note: risk factors - DM, impaired mobility, [place] [facility] resident 02/25/2015 02/25/2015 Pos nares 02/25/2015 Neg nares 11/02/18 Neg nares 12/13/18 N [place] 12/13/18 documented as of this encounter Care Teams Wood Sawyer Relationship Specialty Start Date End Date Ovidio Linares MD PCP - General 03/22/16 10/30/[address] [place] [phone] Pio Odonnell MD PCP - General 10/31/18 04/20/[address] [place] [address] documented as of this encounter
--- OUTSIDE RECORDS SUMMARY | 2022-03-17 00:38 | XMS_ITS | Encounter Summary ---
:1960 Author Organization [facility] Address [address] [place] [address] Care Team Providers Name Role Phone Lamberto Henderson MD Primary Care Provider Encounter Details Date Type Department Care Team Description 07/02/2015 Pre-Procedure [facility] Tamir Howe, Orders Encounter Interventional Radiology PA-C Unit [id number] [place] [address], [facility] 1 [place] [address] (Wo rk) Social History Tobacco [...] Office Visit Urology Reji Foster MD [address] [place], [facility] [place], Level [address] [place], [place] [address] (Wo rk) documented as of this encounter Procedures Procedure Name Priority Date/Time Associated Comments Diagnosis IR CHANGE 07/09/2015 9:45 Results for this PERCUTANEOUS CATHETER EDT proced ure are in - SPECIFY TYPE the results section. documented in this encounter Results IR CHANGE PERCUTANEOUS CATHETER - SPECIFY TYPE (07/09/2015 9:45 EDT) Anatomical Region Laterality Modality Other Specimen Narrative [facility] - 07/09/2015 15:41 EDT Cholecystostomy tube exchange and cholangiogram through existing percutaneous catheter Date: 07/09/2015 Comparisons: Cholangiogram performed 02/23 Patient: Ginger Barrera Attending: Dr. Jerson Khalil Asparagus Cutter: Dr. Luis Albrecht and Dr. Barbie Lopez Preprocedure diagnosis: Cholecystitis an d cholelithiasis Postprocedure diagnosis: Same Procedure: Exchange of percutaneous chol ecystostomy tube Anesthesia: IV sedation, local Access: Existing 14 New Zealander percutaneous cholecystostomy tube Hemostasis: Manual pressure Narrative: The risks, benefits, and alte rnatives to the procedure were discussed in detail with the patien t who gave both written and verbal consent to proceed. The patient w as prepped and draped in the usual sterile fashion. IV conscious pippa tion was supplied with fentanyl and Versed. 1% lidocaine was us ed for local analgesia. Vital signs including heart rate and rhythm, r espiratory rate, oxygen saturation level, blood pressure were co ntinuously monitored throughout the procedure. Prior to the procedure, a timeout was co mpleted verifying correct patient, date of , procedure, site, positioning and special equipment as applicable. An initial motel front desk clerk image was obtained whic h shows the percutaneous cholecystostomy tube in appropriate posi tion. Contrast was instilled through the catheter catheter. Images de monstrate multiple gallstones within the gallbladder and a patent comm on bile duct and cystic duct. ?? Under fluoroscopic guidance, a 0.038 15J Wire was advanced into the gallbladder and the tract was dilated se quentially with a 16 [place] Zealander Ciaran and an 18 [place] Zealander dilator. Attempt was made to dilate the tract with a 20 [place] Zealander dilator; due due to dif ficulty achieving this, the 15J wire was exchanged for an Amplatz wi re. Attempt was again made to dilate the tract; this was ultimately un successful. Under fluoroscopic guidance, a 16 New Zealander percu taneous cholecystostomy tube was advanced into the gallbladder while the wire was removed and a pigtail was formed. Contrast instilled t hrough the catheter showed appropriate positioning. The percutaneou s catheter was secured to the skin with a Eva disc and 2-0 Prolene sutures. The tube was easily flushed and was placed to bag drainage. The patient tolerated the procedure well , and there were no immediate complications. Estimated blood loss: Trace DAP: [id number] mGycm2 Fluoroscopy time: 10:53 min Contrast: 20cc Omnipaque 300 IMPRESSION: 1. Upsizing of indwelling cholecystostom y tube to 16 New Zealander. 2. Cholelithiasis. 3. Patent cystic and common bile ducts. Dr. Jerson Khalil was present for a nd supervised the entire procedure. Dr. Luis Albrecht performed t he procedure and was assisted by Dr. Calderon Lopez. I have personally reviewed the images an d the above interpretation and agree with the findings. Procedure Note Jerson Khalil MD - 07/09/2015 Cholecystostomy tube exchange and cholan giogram through existing percutaneous catheter Date: 07/09/2015 Comparisons: Cholangiogram performed 02/23 Patient: Ginger Barrera Attending: Dr. Jerson Khalil Asparagus Cutter: Dr. Luis Albrecht and Dr. Barbie Lopez Preprocedure diagnosis: Cholecystitis an d cholelithiasis Postprocedure diagnosis: Same Procedure: Exchange of percutaneous chol ecystostomy tube Anesthesia: IV sedation, local Access: Existing 14 New Zealander percutaneous cholecystostomy tube Hemostasis: Manual pressure Narrative: The risks, benefits, and alte rnatives to the procedure were discussed in detail with the patien t who gave both written and verbal consent to proceed. The patient w as prepped and draped in the usual sterile fashion. IV conscious pippa tion was supplied with fentanyl and Versed. 1% lidocaine was us ed for local analgesia. Vital signs including heart rate and rhythm, r espiratory rate, oxygen saturation level, blood pressure were co ntinuously monitored throughout the procedure. Prior to the procedure, a timeout was co mpleted verifying correct patient, date of , procedure, site, positioning and special equipment as applicable. An initial motel front desk clerk image was obtained whic h shows the percutaneous cholecystostomy tube in appropriate posi tion. Contrast was instilled through the catheter catheter. Images de monstrate multiple gallstones within the gallbladder and a patent comm on bile duct and cystic duct. Under fluoroscopic guidance, a 0.038 15J Wire was advanced into the gallbladder and the tract was dilated se quentially with a 16 New Zealander Ciaran and an 18 New Zealander dilator. Attempt was made to dilate the tract with a 20 New Zealander dilator; due due to dif ficulty achieving this, the 15J wire was exchanged for an Amplatz wi re. Attempt was again made to dilate the tract; this was ultimately un successful. Under fluoroscopic guidance, a 16 New Zealander percu taneous cholecystostomy tube was advanced into the gallbladder while the wire was removed and a pigtail was formed. Contrast instilled t hrough the catheter showed appropriate positioning. The percutaneou s catheter was secured to the skin with a Eva disc and 2-0 Prolene sutures. The tube was easily flushed and was placed to bag drainage. The patient tolerated the procedure well , and there were no immediate complications. Estimated blood loss: Trace DAP: [id number] mGycm2 Fluoroscopy time: 10:53 min Contrast: 20cc Omnipaque 300 IMPRESSION: 1. Upsizing of indwelling cholecystostom y tube to 16 New Zealander. 2. Cholelithiasis. 3. Patent cystic and common bile ducts. Dr. Jerson Khalil was present for a nd supervised the entire procedure. Dr. Luis Albrecht performed t he procedure and was assisted by Dr. Calderon Lopez. I have personally reviewed the images an d the above interpretation and agree with the findings. Performing Organization Address City/State/ZIP Code Phon e Number [facility] documented in this encounter Visit Diagnoses Not on filedocumented in this encounter Additional Health Concerns Infection Onset Date Last Indicated Resolved Time MRSAComment: IP note: risk factors - DM, impaired mobility, assisted resident 02/25/2015 02/25/2015 Pos nares 02/25/2015 Neg nares 11/02/18 Neg nares 12/13/18 N [place] 12/13/18 documented as of this encounter Care Teams Manager Business Operations Relationship Specialty Start Date End Date Lamberto Henderson MD PCP - General 07/17/11 03/21/16 [address] [facility] [address] [place] [address] documented as of this encounter
--- OUTSIDE RECORDS SUMMARY | 2022-03-17 00:39 | XMS_ITS | Encounter Summary ---
:1960 Author Organization [facility] Address [address] [place] [address] Care Team Providers Name Role Phone Lamberto Henderson MD Primary Care Provider Reason for Visit Reason Onset Date Comments Medication Management 01/05/2014 Encounter Details Date Type Department Care Team Description 01/05/2014 Telephone [facility] Andrzej Garcia MD [facility] [address] [phone] (Wo rk) Social History Tobacco Use Types Packs/Day Years Used Date Former Smoker Cigarettes 0.5 40 Quit: 11/30/19 11 Smokeless Tobacco: Never Used Alcohol Use Standard Drinks/Week Comments No 0 (1 standard drink = 0.6 oz pure alcoho l) Sex Assigned at Date Recorded Not on file documented as of this encounter Functional Status Cognitive Status Response Date of Assessment Because of a physical, mental, or emotional condition, do Ye s 12/10/2010 you have serious difficulty concentrating, remembering, or making decisions? (5 years old or older) documented as of this encounter Miscellaneous Notes Telephone Encounter - Elin Gutierrez RN - 01/05/2014 1619 EDT Spoke with Chelsy, pharmacist and clarified Cellcept order. Per Dr. Pak, pt is supposed to be on Cellcept 100 mg daily (0.5 mL of 200 mg / mL suspension). Verbalized understanding. Telephone Encounter - Norbert Pak Chi, MD - 01/05/2014 1546 EDT She is supposed to be on Cellcept 100 mg daily (0.5 mL of 200 mg / mL suspension). [place] told the pharmacy in November what the dose was. elephone Encounter - Vivek Pollock - 01/05/2014 1329 EDT Celcept. Need to verify dose and frequency. They have been giving her 200 mg once a day documented in this encounter Plan of Treatment Upcoming Encounters Date Type Specialty Care Team Description 06/13/2022 Appointment Radiology 06/13/2022 Office Visit Urology Reji Foster MD [address] [place] [address], [address] [place], [place] [address] (Wo rk) documented as of this encounter Visit Diagnoses Not on filedocumented in this encounter Care Teams Mixer Operator Hot Metal Relationship Specialty Start Date End Date Lamberto Henderson MD PCP - General 07/17/11 03/21/16 [address] [facility] [address] [place] [address] documented as of this encounter
--- OUTSIDE RECORDS SUMMARY | 2022-03-17 00:39 | XMS_ITS | Encounter Summary ---
:1960 Author Organization [facility] Address [address] [place] [address] Care Team Providers Name Role Phone Lamberto Henderson MD Primary Care Provider Encounter Details Date Type Department Care Team Description 03/31/2014 Results Only [facility]- Mary Alice Saldana [phone] Maria Isabel, B[employer] SERVER [address] [phone] (Wo rk) Social History Tobacco Use Types [...] Visit Urology Reji Foster MD [address] [facility], [facility], [address] [place], [place] [address] (Wo rk) documented as of this encounter Procedures Procedure Name Priority Date/Time Associated Diagnosis Comme nts PAP TEST- RESULT Routine 03/31/2014 0:00 EDT Resu lts for this ONLY procedure are i n the results section. documented in this encounter Results PAP TEST- RESULT ONLY (03/31/2014 0:00 EDT) Pathology Report: CYTOPATHOLOGY REPORT EFREN ADAMS CAPO Reports generated via electronic interface contain kaylie ginal data; however they are lacking the format of the original re port. Caution should be taken when reading/interpreting unfo rmatted reports. Name: ? GINGER BARRERA ? Accession #: ? [id number] ? : ? 1960 (Age: 53) ??F ?Collect Da te: ? 03/31/2014 ? Location: ? [facility] ? Receive Date: ? 014 ? Provider: MARY ALICE GONCALVES APRN Copy to: ? Final Report SPECIMEN ADEQUACY ? Satisfactory for Evaluation - transformation zone component present GENERAL CATEGORIZATION ? Negative for Intraepithelial Lesion or Malignan cy ?? Last Menstrual Period: Age 30's Specimen/Source: ??Pap Test, Source Not Provided, [employer] Medical[employer] Imaging System with manual evaluation Document reviewed and electronically signed by: ? Mary Linares, [place](ASCP) ? Report ??Date: 04/07/2014 15:46 HPV with Pap Test ? Date Ordered: ? 04/07/2014 ? Status: ?? Signed Out ?Date Complete: ? 04/09/2014 ? By: ??S ystem Interface ? Date Reported: ? 04/09/2014 ? Interpretation RESULT: Negative for HPV. No E6 or E7 mRNA is detected from HPV types 16,18,31,3 3,35, 39,45,51,52,56,58,59,66, and 68 by male infertility specialist media leni amplification. Test not validated for this type of specimen or collec tion method. The sensitivity and specificity of the test in this situation are unknown. The results should be interpret ed with caution. Comments Document reviewed and electronically signed by: ? System Interface ? Report date: 04/09/2014 By the signature above, the attending physician certif ies that he/she has personally conducted a gross and/or microscopic examin ation of the described specimens and rendered or confirmed the above diagnosi s. 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
--- OUTSIDE RECORDS SUMMARY | 2022-03-17 00:39 | XMS_ITS | Encounter Summary ---
:1960 Author Organization [facility] Address [address] [place] [address] Care Team Providers Name Role Phone Lamberto Henderson MD Primary Care Provider Reason for Visit Reason Comments Muscle Pain Extremity Weakness Medication Management decreasing cellcept to 1/2ml (100mg) daily Encounter Details Date Type Department Care Team Description 06/12/2013 Office Visit [facility] Norbert Pak Chi, MD Cerebral infarction ([facility] [place]) (Primary D x); Rheumatology & [address] [place] [address] Chronic samy n; Immunology - [facility] Vasculitis, primary NATIONAL SECRETARY ([facility] [place]); [facility] Encounter for long-term (cur rent) use of other medications [address] [facility], [address] [place], [place] [phone] [place] [phone] (Wo rk) Social History Tobacco Use Types [...] Sign Reading Time Taken Comments Blood Pressure 108/60 06/12/2013 1537 EDT Pulse 80 06/12/2013 1537 EDT Temperature - - Respiratory Rate - - Oxygen Saturation - - Inhaled Oxygen Concentration - - Weight - - Height - - Body Mass Index - - documented in this encounter Functional Status Cognitive Status Response Date of Assessment Because of a physical, mental, or emotional condition, do Ye s 12/10/2010 you have serious difficulty concentrating, remembering, or making decisions? (5 years old or older) documented as of this encounter Patient Instructions Patient InstructionsNorbert Pak Chi, MD - 06/12/2013 15:59 EDT Start lyrica 50 twice a day. Continue Cellcept at .5 ml daily and Prednisone half 5 mg tab daily. documented in this encounter Ordered Prescriptions Prescription Sig Dispensed Refills Start Date End Date mycophenolate mofetil Take 0.5 mL by 3 Bottle 1 06/12/2013 04/20/2021 (CELLCEPT) 200 mg/mL mouth daily. Need suspensionIndications: labs done every 3 Vasculitis, primary NATIONAL SECRETARY months ([facility] ([facility]) pregabalin (LYRICA) 50 mg Take 1 Cap by mouth 60 Each 4 0 06/12/2013 02/12/2015 capsuleIndications: 2 times daily. Chronic pain documented in this encounter Progress Notes Norbert Pak Chi, MD - 06/12/2013 1545 EDT Images from the original note were not included. Subjective: Patient ID: Ginger Barrera is an 53 y.o. female. Chief Complaint Patient presents with ??? Muscle Pain ??? Extremity Weakness HPI Comments: Ibuprofen is helping somewhat with chronic leg pains when taken as needed and if ibuprofen not helpful patient then takes the tramadol for pain. Has chronic pain in the feet and R leg. Lyrica in the past helped- had taken Lyrica 3 yrs ago for chronic pain; patient's son cannot recall whythis medication was stopped. No mental status changes. Currently on CellCept 100 mg daily. Denies any other joint pains or swelling. AM stiffness: Legs are stiff. Physical activity: Sitting up most of the day watching TV. Patient Active Problem List Diagnoses ??? Hypertension ??? DM (diabetes mellitus screen) ??? Bipolar affective disorder ??? Anxiety ??? Headache ??? Morbid obesity ??? Static encephalopathy ??? Cerebral infarction ??? Primary central nervous system vasculitis ??? Former smoker Past Medical History Diagnosis Date ??? HTN (hypertension) ??? DM (diabetes mellitus screen) ??? Smoking ??? Bipolar affective disorder ??? Anxiety ??? Headache ??? Lumbar disc disease ??? Static encephalopathy ??? Morbid obesity Past Surgical History Procedure Date ??? Cervical spine surgery ??? Lumbar spine surgery ??? Foot surgery ??? Wrist surgery Social History Substance Use Topics ??? Smoking status: Former Smoker -- 0.5 packs/day for 40 years Types: Cigarettes Quit date: 11/29/2010 ??? Smokeless tobacco: Never Used ??? Alcohol Use: No Outpatient Prescriptions Marked as Taking for the 06/12/13 encounter (Office Visit) with Norbert Pak Chi, MD Medication Sig Dispense Refill ??? mycophenolate mofetil (CELLCEPT) 200 mg/mL suspension Take 0.5 mL by mouth daily. Need labs doneevery 3 months 3 Bottle 1 ??? predniSONE (DELTASONE) 5 mg tablet Take 2.5 mg by mouth daily. ??? fluticasone (FLONASE) 50 mcg/actuation nasal spray 50 mcg by nasal route daily as needed. ??? guaifenesin (MUCINEX) 600 mg SR tablet Take 600 mg by mouth 2 times daily as needed. ??? simvastatin (ZOCOR) 20 mg tablet Take 20 mg by mouth daily. ??? MULTI-VITAMIN ORAL Take by mouth. ??? insulin aspart (NOVOLOG) 100 unit/mL injection Inject into the skin 3 times daily before meals. 10units tid ??? oxybutynin (DITROPAN) 5 mg tablet Take 1 Tab by mouth 3 times daily. 100 Tab 6 ??? pantoprazole (PROTONIX) 40 mg tablet Take 40 mg by mouth daily. ??? ibuprofen (MOTRIN) 200 mg tablet Take 400 mg by mouth 5 times daily. ??? aripiprazole (ABILIFY) 15 mg tablet Take 30 mg by mouth at bedtime. ??? nitroGLYCERIN (NITROSTAT) 0.[address] 0.4 mg under the tongue every 5 minutes as needed. ??? senna (SENNA) 8.6 mg tablet Take 1 Tab by mouth daily as needed. ??? docusate sodium (COLACE) 100 mg capsule Take 100 mg by mouth 2 times daily as needed. ??? divalproex (DEPAKOTE) 500 mg EC tablet Take by mouth 2 times daily. ??? levothyroxine (SYNTHROID) 100 mcg tablet Take 100 mcg by mouth daily. ??? insulin glargine (LANTUS SOLOSTAR PEN) 100 unit/mL (3 mL) injection pen Inject 18 Units into theskin at bedtime. Review of Systems Constitutional: Negative for fever, chills, weight loss, malaise/fatigue and diaphoresis. HENT: Negative for neck pain. No oral ulcers No dry mouth Eyes: Negative for pain. No dry eyes Respiratory: Negative for cough and shortness of breath. Cardiovascular: Negative for chest pain and palpitations. No raynauds Gastrointestinal: Negative for heartburn, nausea, abdominal pain, diarrhea, constipation and blood in stool. Genitourinary: Negative for dysuria, frequency and hematuria. Musculoskeletal: Positive for myalgias. Negative for back pain and joint pain. Skin: Negative for itching and rash. No sun sensitive rashes no psoriasis Neurological: Positive for tingling and focal weakness. Negative for headaches. Endo/Heme/Allergies: Does not bruise/bleed easily. Psychiatric/Behavioral: Negative for depression. The patient is not nervous/anxious and does not have insomnia. All other systems reviewed and are negative. - See HPI Objective: BP 108/60 Pulse 80 Physical Exam Vitals reviewed. Constitutional: She is oriented to person, place, and time. She appears well- nourished. No distress. Obese mid aged female sitting in wheelchair, accompanied by one of her sons. HENT: Head: Normocephalic and atraumatic. Mouth/Throat: Oropharynx is clear and moist. Eyes: Conjunctivae normal and EOM are normal. Pupils are equal, round, and reactive to light. Neck: No thyromegaly present. Cardiovascular: Normal rate, regular rhythm and normal heart sounds. No murmur heard. Pulmonary/Chest: Breath sounds normal. No respiratory distress. She has no wheezes. She has no rales. Abdominal: Soft. There is no hepatomegaly. There is no tenderness. Morbidly obese Genitourinary: Has Martinez catheter in place Musculoskeletal: A complete msk exam including bilateral upper and lower extremities was done and was normal except for abnormal findings shown on homonculus. Neurological: She is alert and oriented to person, place, and time. No cranial nerve deficit. Gait normal. Dysarthric; R hemiplegia; able to follow commands. Skin: No rash noted. Psychiatric: She has a normal mood and affect. Her behavior is normal. Her speech is delayed and slurred. 03/2013 [facility] labs: CBC, CMP - normal, except glucose 217 Assessment: Plan: Ginger was seen today for muscle pain, extremity weakness and medication management. Diagnoses and associated orders for this visit: Cerebral infarction Chronic pain Right hemiplegia with chronic pain in the legs and right limb since her stroke several years ago. She reports relief from pain when she used Lyrica in the past which we will restart at a low dose. - pregabalin (LYRICA) 50 mg capsule; Take 1 Cap by mouth 2 times daily. 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 Her neurologist agreed we slowly taper off immunosuppressants. Continue low-dose prednisone 2.5 mg daily and low dose CellCept 100 mg daily. - mycophenolate mofetil (CELLCEPT) 200 mg/mL suspension; Take 0.5 mL by mouth daily. Need labs done every 3 months Encounter for long-term (current) use of other medications - Hemagram & Differential; Standing - Comprehensive Metabolic Panel (CMP); Standing - Sed. Rate:Westergren; Standing Barriers to learning identified: No Patient verbalizes understanding and agrees with plan Yes F/u 6 mos. Norbert Pak MD documented in this encounter Plan of Treatment Upcoming Encounters Date Type Specialty Care Team Description 06/13/2022 Appointment Radiology 06/13/2022 Office Visit Urology Reji Foster MD [address] [place] [address], [facility], [address] [place], [place] [phone] (Wo rk) documented as of this encounter Visit Diagnoses Diagnosis Cerebral infarction (HCC) - Primary Unspecified cerebral artery occlusion wi th cerebral infarction Chronic pain Other chronic pain Vasculitis, primary NATIONAL SECRETARY (HCC-CMS) (HCC) Arteritis, unspecified Encounter for long-term (current) use of other medications documented in this encounter Discontinued Medications Medication Sig Discontinue Reason Start Date End Date zolpidem (AMBIEN) 5 mg Take 1 Tab by mouth 02/16/2011 06/12/2013 tablet at bedtime as needed for Sleep. mycophenolate mofetil Take 1 mL by mouth Order modification 013 06/12/2013 (CELLCEPT) 200 mg/mL daily. Need labs suspensionIndications: done every 3 months Vasculitis, primary NATIONAL SECRETARY (HCC-CMS) ([facility]) documented as of this encounter Care Teams Scallop Cutter Machine Relationship Specialty Start Date End Date Lamberto Henderson MD PCP - General 07/17/11 03/21/16 [address] [facility] [address] [place] [address] documented as of this encounter
--- OUTSIDE RECORDS SUMMARY | 2022-03-17 00:39 | XMS_ITS | Encounter Summary ---
:[address] [facility] Address [address] [place] [address] Care Team Providers Name Role Phone Lamberto Henderson MD Primary Care Provider Encounter Details Date Type Department Care Team Description 12/30/2013 Hospital Encounter [facility] Unknown, P MD [facility] Yasmany Kline MD [address] [place] [address] Social History Tobacco Use Types Packs/Day Years [...] - - Temperature - - Respiratory Rate 14 12/30/2013 1055 EDT Oxygen Saturation 96% 12/30/2013 1055 EDT Inhaled Oxygen Concentration - - Weight - - Height - - Body Mass Index - - documented in this encounter Functional Status Cognitive Status Response Date of Assessment Because of a physical, mental, or emotional condition, do Ye s 12/10/2010 you have serious difficulty concentrating, remembering, or making decisions? (5 years old or older) documented as of this encounter Discharge Instructions ZoëOTara Cantu RN - 12/30/2013 RADIOLOGY PATIENT EDUCATION INSTRUCTIONS FOLLOWING PLACEMENT OF VENOUS ACCESS CATHETERS (Outside the skin) Procedure Site - right arm Physician Performing Procedure - Yasmany Kline and Tamir Valenzuela Type of Venous Access Catheter - Power PICC Selected vein - basilic Tip of the Catheter - rasvc Total Length - 42 cm External Length - 1 cm The type of catheter chosen depends on what you and your physician have discussed. A venous access catheter is used for intermediate manager antibiotics, supplements IV nutrition, blood products, medication or hemodialysis. It is connected to a tube, which is placed in the superior vena cava, a vein close to your heart, and external tubing comes out of the skin site like an IV. ?? Return home and rest quietly for the remainder of the day. If sedation was used, DO NOT drive or make legal decisions today. You may resume normal activity tomorrow. ?? Have a responsible adult drive you home. ?? You may resume your normal diet after the procedure. Avoid alcoholic beverages for 24 hours. ?? DO NOT take aspirin-containing products, Ibuprofen, Vitamin E, or blood thinning medicine for 24 hours after the procedure. You may take Tylenol for mild discomfort. Call your physician for pain unrelieved with Tylenol. ?? Check the dressing throughout the day. If you notice any swelling, oozing or brisk bleeding, immediately apply pressure to the area for 10 minutes. Slowly release the pressure and check to see if the bleeding has stopped. Repeat the process again if necessary. If bleeding does not stop at this point, then seek medical attention by going to your nearest emergency room. ?? Wound Care - The dressings will be changed by the nurse delivering your prescribed therapy, by the VNA nurse, or by your dialysis nurse. The dressings used are to be placed in a sterile fashion to avoid infection. ?? Showering/Bathing - You may shower, if you place Saran Wrap and tape over the dressing and catheters to help prevent them from getting wet. ?? BE SURE TO SECURE THE DANGLING TUBING, to avoid stress or tension. This could lead to the catheters being pulled on or possibly coming out. ?? If the catheter does accidentally get pulled out, DO NOT try to advance back in, secure it and call your physician in the morning. If the catheter comes completely out, cover with a sterile dressingand call your physician. IF YOU HAVE ANY QUESTIONS OR CONCERNS REGARDING THE PROCEDURE, PLEASE CALL THE INTERVENTIONAL RADIOLOGY CLINIC . SOMEONE IS AVAILABLE TO TAKE YOUR CALL 24 HOURS A DAY. documented in this encounter Medications at Time of Discharge Medication Sig Dispensed Refills Start Date End Date levothyroxine Take 125 mcg by mouth 0 (SYNTHROID) 125 mcg daily. tablet aripiprazole (ABILIFY) Take 30 mg by mouth 0 07/04/201111/01/2018 15 mg tablet at bedtime. divalproex (DEPAKOTE) Take by mouth 2 times 0 02/12/2015 500 mg EC tablet daily. docusate sodium (COLACE) Take 100 mg by mouth 2 times daily 0 03/31/2011 11/02/2018 100 mg capsule fluticasone (FLONASE) 50 50 mcg by nasal route 0 02/12/2015 mcg/actuation nasal daily as needed. spray guaifenesin (MUCINEX) Take 600 mg by mouth 0 02/12/2015 600 mg SR tablet 2 times daily as needed. ibuprofen (MOTRIN) 200 Take 400 mg by mouth every 6 hours as needed 0 03/31/2011 05/28/2015 mg tablet insulin aspart (NOVOLOG) Inject into the skin 0 02/12/2015 100 unit/mL injection 3 times daily before meals. 10units tid insulin glargine (LANTUS Inject 20 Units into the skin at bedtime 0 02/18/2015 SOLOSTAR PEN) 100 unit/mL (3 mL) injection pen MULTI-VITAMIN ORAL Take by mouth. 0 mycophenolate mofetil Take 0.5 mL by mouth 3 Bottle 1 05/2504/20/2021 (CELLCEPT) 200 mg/mL daily. 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 oxybutynin (DITROPAN) 5 Take 1 Tab by mouth 3 100 Tab 6 1 02/12/2015 mg tabletIndications: times daily. CVA (cerebral infarction) pantoprazole (PROTONIX) Take 40 mg by mouth 0 02/12/2015 40 mg tablet daily. predniSONE (DELTASONE) 5 Take 2.5 mg by mouth 0 11/04/2018 mg tablet daily. pregabalin (LYRICA) 50 Take 1 Cap by mouth 2 60 Each 4 02/12/2015 mg capsuleIndications: times daily. Chronic pain senna (SENNA) 8.6 mg Take 1 Tab by mouth daily as needed (constipat ion) 0 03/31/2011 11/02/2018 tablet simvastatin (ZOCOR) 20 Take 20 mg by mouth at bedtime 0 11/02/2018 mg tablet UNABLE TO FIND Med Name: antibiotic 0 02/12/2015 unable to recall the name, for UTI documented as of this encounter Discharge Disposition Disposition Code Departure Means Destination Home or Self Care documented in this encounter Progress Notes Tara Newell, XIOMARA - 12/30/2013 1043 EDT I have reviewed Labs, Medications, allergies, Pt history. Pt greeted in [address] ID'd by name, and viewed name bracelet. Pt in room time is 1020 . Pt arrived on stretcher with [place] [facility] ambulance crew As the nurse in the room I explained goals of procedure relating to nursing goals. Pt states all her questions have been answered. Pt positioned Supine on the angio 23 table. Gel pads under elbows, Safety straps in place. Sao2 assessed. Sterile prep of right arm up and including shoulder with chloraprep in the usual sterile fashion. Cali moment at start of procedure, PICC placement, At 1035 between BJM, LDL and voss. The patient is awake for the procedure done ultilzing local anersthesia. Ultrasound guided right basilic access, fluoro guided placement of right basilic dual lumen PICC with tip in rasvc, 1 cm external and Total length 42 cm Defer to Physicians note for procedure outcomes Pt tolerated procedure well. Pt left angio [address] on stretcher transported by [facility] ambulance crew Discharge instructions given to ambulance crew placed in prism. documented in this encounter Procedure Notes Tamir Howe PA - 12/30/2013 1101 EDT Images from the original note were not included. Central Catheter Insertion First Catheter This Session surgical garment fitter: Patient Location: [id number] Preliminary Data: Insertion Date: 12/30/13 Insertion Time: 1042 First Project Product Manager: CHARLI RN/MA Documenting Procedure: voss Pre-procedure: Time Out / Final Moment Performed: Yes Hand Hygiene Immediately Prior To Procedure: Yes Site Disinfected-2% Chlorhex/70% Alcohol: Yes Procedure Site Completely Dry: Yes Entire Patient Draped in Sterile Fashion: Yes Intra-procedure: Sterile Gloves Used: Yes Cap, Mask, and Sterile Gown - Operators: Yes Sterile Field Maintained: Yes Cap and Mask Worn - All Personnel: Yes Post-procedure: Sterile Dressing Applied - Sterile Technique: Yes Dressing Dated And Timed: Yes Needle Passes: Resident/Fellow Makes 3 Passes or Less: Yes Physician Documentation Pre-Procedure: Procedure To Be Performed: New central line placement Indication: New indication Conditions Present: Other (Comment) (Osteo) Line Priority: Routine Follow-Up X-ray: Placed under fluoro Consent Obtained: No The patient and/or family have been provided education/training to minimize the risk of central line-associated bloodstream infections. Central Line Type: Central Catheter Type: PICC PICC Type: Solo PICC Central Line Details: Line Location: Right Line Lumens (#): Double Central Line Size: 5 Fr Line Coating: Non-antimicrobial coated Line Trim Length: 41 cm Line External Length: 1 cm Line Securement Device: Statlock device Responsible Service / IR Details: Responsible Service: IR Lidocaine 1% - Route/Dose (cc's): Subcutaneous;Intradermal;3 Fluoroscopy Time (min): 0.1 Patient Condition At Completion Of Case: Stable Central Line Materials and Methods: Number of Attempts: 1 Number of Sites Attempted: 1 Number of Kits Used: 1 Location Device Used: Angiography;Ultrasound Central Line Operators: Number Of Operators: 1 First Project Product Manager's Name: Clemencia Howe PA-C First Project Product Manager's Title: MANDO Supervision provided by Dr lKine. Unless otherwise noted, there were no complications, no blood loss and no cultures obtained. MANDO Kraft 12/30/2013 11:01 documented in this encounter Plan of Treatment Upcoming Encounters Date Type Specialty Care Team Description 06/13/2022 Appointment Radiology 06/13/2022 Office Visit Urology Reji Foster MD [address] [place] [address], [facility] [address], [address] [place], [place] [address] (Wo rk) documented as of this encounter Procedures Procedure Name Priority Date/Time Associated Diagnosis Comme nts IR PICC - REFER TO 12/30/2013 11:20 Resul ts for this IV THERAPY FIRST EDT procedure a re in the results section. documented in this encounter Results IR PICC - REFER TO IV THERAPY FIRST (12/30/2013 11:20 EDT) Anatomical Region Laterality Modality Other Specimen Narrative [facility] - 01/02/2014 16:05 EDT Right sided PICC line placement. December 30, 2013. 1024 hours Patient with osteomyelitis requiring ant ibiotic therapy. ?? Following sterile preparation and local anesthesia of the right upper arm, a singlewall puncture was mad e into the basilic vein above the elbow using ultrasound guidance . An image of the needle entering the vein was obtained for the patient's permanent record. The vein is patent on ultrasound examination. Using fluoroscopic guidance, the tract w as dilated and a 5 Afghan double-lumen ?PICC line position wit h the tip at the caval atrial junction. The patient tolerated procedur e well. Nan Howe direct Impression: 1. Successful ??placement of 5 Afghan do uble-lumen PICC line with tip in SVC/RA. 2. Fluoroscopic and Sonographic guidance used. Procedure Note 01/02/2014 Right sided PICC line placement. December. 1024 hours Patient with osteomyelitis requiring ant ibiotic therapy. Following sterile preparation and local anesthesia of the right upper arm, a singlewall puncture was mad e into the basilic vein above the elbow using ultrasound guidance . An image of the needle entering the vein was obtained for the patient's permanent record. The vein is patent on ultrasound examination. Using fluoroscopic guidance, the tract w as dilated and a 5 Afghan double-lumen PICC line position with the tip at the caval atrial junction. The patient tolerated procedur e well. Nan Howe direct Impression: 1. Successful placement of 5 Afghan doub le-lumen PICC line with tip in SVC/RA. 2. Fluoroscopic and Sonographic guidance used. Performing Organization Address City/State/ZIP Code Phon e Number [facility] documented in this encounter Visit Diagnoses Not on filedocumented in this encounter Active and Recently Administered Medications Orders Medications Ordered That Might Not Have Count Last Ord ered Date First Ordered Date Been Administered sodium chloride 0.9 % flush 10 mL 2 12/30/2013 sodium chloride 0.9 % flush 20 mL 1 12/30/2013 Discharge Count Last Ordered Date First Ordered Date DISCHARGE PATIENT 1 12/30/2013 documented in this encounter Care Teams Fur Stylist Relationship Specialty Start Date End Date Lamberto Henderson MD PCP - General 07/17/11 03/21/16 [address] [facility] [address] [place] [address] documented as of this encounter
--- OUTSIDE RECORDS SUMMARY | 2022-03-17 00:39 | XMS_ITS | Encounter Summary ---
:1960 Author Organization [facility] Address [address] [place] [address] Care Team Providers Name Role Phone Lamberto Henderson MD Primary Care Provider Ovidio Linares MD Primary Care Provider [phone] Pio Odonnell MD Primary Care Provider [phone] Encounter Details Date Type Department Care Team Description 02/12/2015 Historical Results [facility] [place] thew Only [facility] Resul shila Clements MD [address] [facility] [address] [place] [address] [place], [place] [phone] Social History Tobacco Use Types Packs/Day Years [...] Office Visit Urology Reji Foster MD [address] [facility], [facility], [address] [place], [place] [address] (Wo rk) documented as of this encounter Procedures Procedure Name Priority Date/Time Associated Diagnosis Comme nts CT ABDOMEN PELVIS W 02/12/2015 17:05 Resu lts for this CONTRAST EDT procedure are i n the results section. documented in this encounter Results CT ABDOMEN PELVIS W CONTRAST (02/12/2015 17:05 EDT) Specimen Narrative [facility] - 02/13/2015 9:04 EDT ? EXAM: CAT SCAN/ABDOMEN PELVIS WITH CONTRA EX. D/ (1705) ? CLINICAL INFORMATION: ? ABD PAIN LEUKOCYTOSIS ? Patient Name: Ginger Barrera ? Date of : 1960 ? Exam: CT ABDOMEN/PELVIS W ? Date of Exam: 02/12/2015 ? Referring Physician: Rakel Clements ? Clinical History: ABD PAIN, LEUKO CYTOSIS ? FINAL REPORT ? EXAM: ? CT Abdomen and Pelvis With Intrav enous Contrast. ? CLINICAL HISTORY: ? 54 years old, female; Abd pain, l eukocytosis ? TECHNIQUE: ? Axial computed tomography images of the abdomen and pelvis with ? intravenous contrast. ? CONTRAST: ? 75 mL of OMNI 350 administered in travenously. ? COMPARISON: ? No relevant prior studies availab le. ? FINDINGS: ? Mild Bibasilar atelectasis noted. Coronary arterial ? calcifications noted. Correlation with clinical findings may be ? useful. There is cholelithiasis p resent. ? There is mild gallbladder wall th ickening. Correlation with ? clinical findings and followup st udy may be useful. ? Ultrasound study may be useful fo r further evaluation as clinically ? indicated. ? Liver demonstrates no ductal dila tation. The pancreas ? demonstrates no gross inflammator y process or ductal dilatation. ? The spleen is normal in size. Adr enal glands are within normal ? limits. There is no hydronephrosi s. ? Left renal subcentimeter cortical hypodensity of insufficient size ? to further characterize by CT not ed, possibly tiny cyst. Ultrasound ? study may be useful for further e valuation if clinically indicated. ? The stomach is partially decompre ssed and not well evaluated. ? Aorta is normal in caliber. Bladd er is decompressed with Martinez ? catheter present, and not well ev aluated. ? Uterus mildly enlarged with lobul ated contour possibly secondary to ? fibroids. Small pelvic calcificat ions compatible with phleboliths ? noted. ? There is moderate/large amount of fecal material in distal sigmoid ? colon possibly constipation. Paty elation with clinical findings may ? be useful. ? No bowel obstruction or adynamic ileus. The appendix is normal in ? caliber. ? PAGE 1 ? Marichuy d Report ? (CONTINUED) ? Osseous structures are intact. ? IMPRESSION: ? 1. There is cholelithiasis presen t. ? There is mild gallbladder wall th ickening. Correlation with ? clinical findings and followup st udy may be useful. ? 2. No bowel obstruction or adynam ic ileus. No evidence of ? appendicitis. ? There is moderate/large amount of fecal material in distal sigmoid ? colon possibly constipation. Paty elation with clinical findings may ? be useful. ? Dictated, Authenticated, and Elec tronically Signed by: Almas Scott ? on 02/12/2015 at 5:58:23PM ?Reported B y: Almas Scott MD ? CC: ? Transcribed Date/Time: 02/13/2015 (0904) ? Evs Manager: CLAIRE ? Printed Date/Time: 03/03/2019 (13 11) ? PAGE 2 ? Marichuy d Report ? Procedure Note Almas Scott - 07/29/2019 EXAM: CAT SCAN/ABDOMEN PELVIS WITH CONT RA EX. D/ (1705) CLINICAL INFORMATION: ABD PAIN LEUKOCYTOSIS Patient Name: Ginger Barrera Date of : 1960 Exam: CT ABDOMEN/PELVIS W Date of Exam: 02/12/2015 Referring Physician: Rakel Clements Clinical History: ABD PAIN, LEUKOCYTOSI S FINAL REPORT EXAM: CT Abdomen and Pelvis With Intravenous Contrast. CLINICAL HISTORY: 54 years old, female; Abd pain, leukocy tosis TECHNIQUE: Axial computed tomography images of the abdomen and pelvis with intravenous contrast. CONTRAST: 75 mL of OMNI 350 administered intraven ously. COMPARISON: No relevant prior studies available. FINDINGS: Mild Bibasilar atelectasis noted. Coron janina arterial calcifications noted. Correlation with clinical findings may be useful. There is cholelithiasis present . There is mild gallbladder wall thickeni ng. Correlation with clinical findings and followup study ma y be useful. Ultrasound study may be useful for furt her evaluation as clinically indicated. Liver demonstrates no ductal dilatation . The pancreas demonstrates no gross inflammatory proc ess or ductal dilatation. The spleen is normal in size. Adrenal g lands are within normal limits. There is no hydronephrosis. Left renal subcentimeter cortical hypod ensity of insufficient size to further characterize by CT noted, po ssibly tiny cyst. Ultrasound study may be useful for further evaluat ion if clinically indicated. The stomach is partially decompressed a nd not well evaluated. Aorta is normal in caliber. Bladder is decompressed with Martinez catheter present, and not well evaluate d. Uterus mildly enlarged with lobulated c ontour possibly secondary to fibroids. Small pelvic calcifications c ompatible with phleboliths noted. There is moderate/large amount of fecal material in distal sigmoid colon possibly constipation. Correlatio n with clinical findings may be useful. No bowel obstruction or adynamic ileus. The appendix is normal in caliber. PAGE 1 Signed Report (CONTINUED) Osseous structures are intact. IMPRESSION: 1. There is cholelithiasis present. There is mild gallbladder wall thickeni ng. Correlation with clinical findings and followup study lorri y be useful. 2. No bowel obstruction or adynamic ile us. No evidence of appendicitis. There is moderate/large amount of fecal material in distal sigmoid colon possibly constipation. Correlatio n with clinical findings may be useful. Dictated, Authenticated, and Electronic ally Signed by: Almas Scott on 02/12/2015 at 5:58:23PM Reported By: Almas Scott MD CC: Transcribed Date/Time: 02/13/2015 (0904 ) Evs Manager: CLAIRE Printed Date/Time: 03/03/2019 (2001) PAGE 2 Signed Report Performing Organization Address City/State/ZIP Code Phon e Number [facility] documented in this encounter Visit Diagnoses Not on filedocumented in this encounter Additional Health Concerns Infection Onset Date Last Indicated Resolved Time MRSAComment: IP note: risk factors - DM, impaired mobility, jail resident 02/25/2015 02/25/2015 Pos nares 02/25/2015 Neg nares 11/02/18 Neg nares 12/13/18 N [place] 12/13/18 documented as of this encounter Care Teams Club Former Relationship Specialty Start Date End Date Lamberto Henderson MD PCP - General 07/17/11 03/21/16 [address] [facility] [address] [place] [address] Ovidio Linares MD PCP - General 03/22/16 10/30/[address] [place] [address] [address] [place] [phone] Pio Odonnell MD PCP - General 10/31/18 04/20/21 [address] [place], [place] [phone] documented as of this encounter
--- OUTSIDE RECORDS SUMMARY | 2022-03-17 00:39 | XMS_ITS | Encounter Summary ---
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 7:19 Resul ts for this EDT procedure are i n the results section. GLUCOSE, GLUCOMETER Routine 03/01/2015 6:29 Resul ts for this EDT procedure are i n the results section. GLUCOSE, GLUCOMETER Routine 02/28/2015 23:00 Resu lts for this EDT procedure are i n the results section. GLUCOSE, GLUCOMETER Routine 02/28/2015 16:54 Resu lts for this EDT procedure are i n the results section. GLUCOSE, GLUCOMETER Routine 02/28/2015 11:36 Resu lts for this EDT procedure are i n the results section. GLUCOSE, GLUCOMETER Routine 02/28/2015 7:29 Resul ts for this EDT procedure are i n the results section. GLUCOSE, GLUCOMETER Routine 02/27/2015 21:07 Resu lts for this EDT procedure are i n the results section. GLUCOSE, GLUCOMETER Routine 02/27/2015 17:04 Resu lts for this EDT procedure are i n the results section. GLUCOSE, GLUCOMETER Routine 02/27/2015 11:34 Resu lts for this EDT procedure are i n the results section. GLUCOSE, GLUCOMETER Routine 02/27/2015 7:51 Resul ts for this EDT procedure are i n the results section. INPATIENT ADD-ON Routine 02/27/2015 7:35 Results for this EDT procedure are i n the results section. GLUCOSE, GLUCOMETER Routine 02/27/2015 7:17 Resul ts for this EDT procedure are i n the results section. GLUCOSE, GLUCOMETER Routine 02/26/2015 21:59 Resu lts for this EDT procedure are i n the results section. GLUCOSE, GLUCOMETER Routine 02/26/2015 17:06 Resu lts for this EDT procedure are i n the results section. GLUCOSE, GLUCOMETER Routine 02/26/2015 15:18 Resu lts for this EDT procedure are i n the results section. VL MESENTERIC ARTERY Routine 02/26/2015 14:43 Res ults for this DUPLEX EDT procedure are i n the results section. GLUCOSE, GLUCOMETER Routine 02/26/2015 12:52 Resu lts for this EDT procedure are i n the results section. FINGER 2 OR MORE VIEWS Routine 02/26/2015 10:59 R esults for this EDT procedure are i n the results section. GLUCOSE, GLUCOMETER Routine 02/26/2015 7:25 Resul ts for this EDT procedure are i n the results section. COMPLETE BLOOD COUNT Routine 02/26/2015 5:56 Resu lts for this AND DIFFERENTIAL EDT procedure a re in the results section. HEMOGLOBIN A1C Routine 02/26/2015 5:56 Results fo r this EDT procedure are i n the results section. GLUCOSE, GLUCOMETER Routine 02/25/2015 20:39 Resu lts for this EDT procedure are i n the results section. GLUCOSE, GLUCOMETER Routine 02/25/2015 18:24 Resu lts for this EDT procedure are i n the results section. IR CHOLANGIOGRAM THRU Routine 02/25/2015 13:05 Re sults for this TUBE EDT procedure are i n the results section. INPATIENT ADD-ON Routine 02/25/2015 10:40 Results for this EDT procedure are i n the results section. INPATIENT ADD-ON STAT 02/25/2015 3:35 Results for this EDT procedure are i n the results section. INPATIENT ADD-ON STAT 02/25/2015 3:25 Results for this EDT procedure are i n the results section. PROCALCITONIN STAT 02/25/2015 3:04 Results for this EDT procedure are i n the results section. SCREENING GLUCOSE STAT 02/25/2015 3:04 Results for this EDT procedure are i n the results section. CALCIUM, IONIZED STAT 02/25/2015 3:04 Results for this EDT procedure are i n the results section. LACTIC ACID Routine 02/25/2015 3:04 Results for this EDT procedure are i n the results section. BILIRUBIN STAT 02/25/2015 3:04 Results for this DIRECT/INDIRECT EDT procedure ar e in the results section. BUN STAT 02/25/2015 3:04 Results for this EDT procedure are i n the results section. ALT STAT 02/25/2015 3:04 Results for this EDT procedure are i n the results section. AST STAT 02/25/2015 3:04 Results for this EDT procedure are i n the results section. TSH STAT 02/25/2015 3:04 Results for this EDT procedure are i n the results section. T4 FREE Routine 02/25/2015 3:04 Results for this EDT procedure are i n the results section. PROTEIN, TOTAL STAT 02/25/2015 3:04 Results fo r this EDT procedure are i n the results section. PHOSPHORUS STAT 02/25/2015 3:04 Results for this EDT procedure are i n the results section. ALKALINE PHOSPHATASE STAT 02/25/2015 3:04 Resu lts for this EDT procedure are i n the results section. MAGNESIUM STAT 02/25/2015 3:04 Results for this EDT procedure are i n the results section. LIPASE STAT 02/25/2015 3:04 Results for this EDT procedure are i n the results section. CREATININE STAT 02/25/2015 3:04 Results for this EDT procedure are i n the results section. CK Routine 02/25/2015 3:04 Results for this EDT procedure are i n the results section. CORTISOL Routine 02/25/2015 3:04 Results for this EDT procedure are i n the results section. BILIRUBIN, TOTAL STAT 02/25/2015 3:04 Results for this EDT procedure are i n the results section. AMYLASE STAT 02/25/2015 3:04 Results for this EDT procedure are i n the results section. ALBUMIN STAT 02/25/2015 3:04 Results for this EDT procedure are i n the results section. VANCOMYCIN, RANDOM Routine 02/25/2015 3:04 Result s for this EDT procedure are i n the results section. VALPROIC ACID LEVEL Routine 02/25/2015 3:04 Resul ts for this EDT procedure are i n the results section. ELECTROLYTES STAT 02/25/2015 3:04 Results for this EDT procedure are i n the results section. INPATIENT ADD-ON Routine 02/25/2015 1:30 Results for this EDT procedure are i n the results section. PROTIME STAT 02/25/2015 0:26 Results for this EDT procedure are i n the results section. COMPLETE BLOOD COUNT STAT 02/25/2015 0:26 Resu lts for this AND DIFFERENTIAL EDT procedure a re in the results section. RESPIRATORY CARE Routine 02/25/2015 0:21 EVALUATION ONLY EDT BACTERIAL Routine 02/25/2015 0:21 Results for this CULTURE/SMEAR, FLUID EDT procedu re are in the results section. BACTERIAL CULTURE, Routine 02/25/2015 0:19 Result s for this BLOOD EDT procedure are i n the results section. BACTERIAL CULTURE, Routine 02/25/2015 0:19 Result s for this BLOOD EDT procedure are i n the results section. URINE MICROSCOPIC Routine 02/25/2015 0:19 Results for this EDT procedure are i n the results section. URINALYSIS WITH STAT 02/25/2015 0:19 Results f or this MICROSCOPIC IF EDT procedure are in POSITIVE the results section. BACTERIAL CULTURE, Routine 02/25/2015 0:19 Result s for this URINE EDT procedure are i n the results section. MRSA PCR Routine 02/25/2015 0:10 Results for this EDT procedure are i n the results section. documented in this encounter Results ELECTROLYTES (03/01/2015 7:32 EDT) Pathologist Sig nature Sodium 141 136 - 145 mEq/L [facility] Potassium 3.5 3.5 - 5.0 mEq/L [facility] Chloride 105 96 - 110 mEq/L [facility] CO2 28 24 - 32 mEq/L [facility] Specimen Blood specimen (specimen) - Blood Performing Organization Address City/State/ZIP Code Phon e Number [facility] [address] [place] [address] SERVICES GLUCOSE, GLUCOMETER (03/01/2015 7:19 EDT) Glucose, 89 70 - 100 [facility] Fingerstick mg/dl LABORATORY SERVICES [place] [id number]: [facility] Test Performed by LABORATORY Nursing Services SERVICES Specimen Blood Performing Organization Address City/State/ZIP Code Phon e Number [facility] [address] [place] [address] SERVICES GLUCOSE, GLUCOMETER (03/01/2015 6:29 EDT) Glucose, 98 70 - 100 [facility] Fingerstick mg/dl LABORATORY SERVICES [place] [id number]: [facility] Test Performed by LABORATORY Nursing Services SERVICES Specimen Blood Performing Organization Address City/State/ZIP Code Phon e Number [facility] [address] [place] [address] SERVICES (ABNORMAL) GLUCOSE, GLUCOMETER (02/28/2015 23:00 EDT) Glucose, 123 (H) 70 - 100 [facility] Fingerstick mg/dl LABORATORY SERVICES [place] [id number]: [facility] Test Performed by LABORATORY Nursing Services SERVICES Specimen Blood Performing Organization Address City/State/ZIP Code Phon e Number [facility] [address] [place] [address] SERVICES (ABNORMAL) GLUCOSE, GLUCOMETER (02/28/2015 16:54 EDT) Glucose, 156 (H) 70 - 100 [facility] Fingerstick mg/dl LABORATORY SERVICES [place] [id number]: [facility] Test Performed by LABORATORY Nursing Services SERVICES Specimen Blood Performing Organization Address City/State/ZIP Code Phon e Number [facility] [address] [place] [address] SERVICES (ABNORMAL) GLUCOSE, GLUCOMETER (02/28/2015 11:36 EDT) Glucose, 136 (H) 70 - 100 [facility] Fingerstick mg/dl LABORATORY SERVICES [place] [id number]: [facility] Test Performed by LABORATORY Nursing Services SERVICES Specimen Blood Performing Organization Address City/State/ZIP Code Phon e Number [facility] [address] [place] [address] SERVICES GLUCOSE, GLUCOMETER (02/28/2015 7:29 EDT) Glucose, Fingerstick 85 70 - 100 mg/dl [facility] [place] [id number]: [facility] LABORATORY SERVICES Specimen Blood Performing Organization Address City/State/ZIP Code Phon e Number [facility] [address] [place] [address] SERVICES (ABNORMAL) GLUCOSE, GLUCOMETER (02/27/2015 21:07 EDT) Glucose, 183 (H) 70 - 100 [facility] Fingerstick mg/dl LABORATORY SERVICES [place] [id number]: [facility] Test Performed by LABORATORY Nursing Services SERVICES Specimen Blood Performing Organization Address City/State/ZIP Code Phon e Number [facility] [address] [place] [address] SERVICES (ABNORMAL) GLUCOSE, GLUCOMETER (02/27/2015 17:04 EDT) Glucose, Fingerstick 121 (H) 70 - 100 mg/dl [facility] [place] [id number]: [facility] LABORATORY SERVICES Specimen Blood Performing Organization Address City/State/ZIP Code Phon e Number [facility] [address] [place] [address] SERVICES (ABNORMAL) GLUCOSE, GLUCOMETER (02/27/2015 11:34 EDT) Glucose, Fingerstick 136 (H) 70 - 100 mg/dl [facility] [place] [id number]: [facility]ORY SERVICES Specimen Blood Performing Organization Address City/State/ZIP Code Phon e Number [facility] [address] [place] [address] SERVICES GLUCOSE, GLUCOMETER (02/27/2015 7:51 EDT) Glucose, 83 70 - 100 [facility] Fingerstick mg/dl LABORATORY SERVICES [place] [id number]: [facility] Test Performed by LABORATORY Nursing Services SERVICES Specimen Blood Performing Organization Address City/State/ZIP Code Phon e Number [facility] [address] [place] [address] SERVICES INPATIENT ADD-ON (02/27/2015 7:35 EDT) Pathologist Sig nature Tests to be added HEMOGLOBIN A1C [facility] Number for problems [id number] [facility] Accession number [id number] [facility] Specimen Other Performing Organization Address City/State/ZIP Code Phon e Number [facility] [address] [place] [address] SERVICES GLUCOSE, GLUCOMETER (02/27/2015 7:17 EDT) Glucose, 70 70 - 100 [facility] Fingerstick mg/dl LABORATORY SERVICES [place] [id number]: [facility] Test Performed by LABORATORY Nursing Services SERVICES Specimen Blood Performing Organization Address City/[facility]/ZIP Code Phon e Number [facility] [address] [place] [address] SERVICES (ABNORMAL) GLUCOSE, GLUCOMETER (02/26/2015 21:59 EDT) Glucose, 131 (H) 70 - 100 [facility] Fingerstick mg/dl LABORATORY SERVICES [place] [id number]: [facility] Test Performed by LABORATORY Nursing Services SERVICES Specimen Blood Performing Organization Address City/[facility]/ZIP Code Phon e Number [facility] [address] [place] [address] SERVICES (ABNORMAL) GLUCOSE, GLUCOMETER (02/26/2015 17:06 EDT) Glucose, 162 (H) 70 - 100 [facility] Fingerstick mg/dl LABORATORY SERVICES [place] [id number]: [facility] Test Performed by LABORATORY Nursing Services SERVICES Specimen Blood Performing Organization Address City/State/ZIP Code Phon e Number [facility] [address] [place] [address] SERVICES (ABNORMAL) GLUCOSE, GLUCOMETER (02/26/2015 15:18 EDT) Glucose, Fingerstick 145 (H) 70 - 100 mg/dl [facility] [place] [id number]: [facility] tnurs LABORATORY SERVICES Specimen Blood Performing Organization Address City/State/ZIP Code Phon e Number [facility] [address] [place] [address] SERVICES VL MESENTERIC ARTERY DUPLEX (02/26/2015 14:43 EDT) Anatomical Region Laterality Modality Other Specimen Narrative [facility] - 03/01/2015 10:05 EDT Vascular Diagnostic Laboratory [facility] Care [facility], Level 5 [address] [place] [address] Technologist: Indra Paz IMPRESSIONS 1. All velocities are within the normal range. 2. Portions of the distal superior mesen teric artery were not visualized due to ?? abdominal gas. PROCEDURE: Mesenteric artery ultrasound; evaluation of the celiac, superior mesenteric, splenic, hepatic and inferior mesenteric arteries. INDICATION: Post prandial pain. HISTORY: RISK FACTORS: Former tobacco use. Hypertension. Diabet es mellitus: type II. Obese. Dyslipidemia. CVA. Hospital PT. DOPPLER FINDINGS: + +-------+---- --+-------+ Location ? V s ys ?? V ed ?? Comment + +-------+---- --+-------+ Abdominal aorta ? 111cm/s ? 1.8 cm + +-------+---- --+-------+ Celiac ? 17 4cm/s 35cm/s ? + +-------+---- --+-------+ Hepatic ? 119 cm/s 30cm/s ? + +-------+---- --+-------+ Splenic ? 100 cm/s 26cm/s ? + +-------+---- --+-------+ Superior mesenteric - prox 127cm/s 21cm /s ? + +-------+---- --+-------+ Superior mesenteric - mid 192cm/s 39cm /s ? + +-------+---- --+-------+ Superior mesenteric - dist 133cm/s 25cm /s ? + +-------+---- --+-------+ Inferior mesenteric ? 42cm/s ? + +-------+---- --+-------+ * Electronically signed by: Pedro Kohli [id number] Procedure Note Pedro Kohli MD - 03/01/2015 Vascular Diagnostic Laboratory [facility], [facility] [address] [place], [place] [id number] Technologist: Indra Paz IMPRESSIONS 1. All velocities are within the normal range. 2. Portions of the distal superior mesen teric artery were not visualized due to abdominal gas. PROCEDURE: Mesenteric artery ultrasound; evaluation of the celiac, superior mesenteric, splenic, hepatic and inferior mesenteric arteries. INDICATION: Post prandial pain. HISTORY: RISK FACTORS: Former tobacco use. Hypertension. Diabet es mellitus: type II. Obese. Dyslipidemia. CVA. Hospital PT. DOPPLER FINDINGS: + +-------+---- --+-------+ Location V sys V ed Comment + +-------+---- --+-------+ Abdominal aorta 111cm/s 1.8 cm + +-------+---- --+-------+ Celiac 174cm/s 35cm/s + +-------+---- --+-------+ Hepatic 119cm/s 30cm/s + +-------+---- --+-------+ Splenic 100cm/s 26cm/s + +-------+---- --+-------+ Superior mesenteric - prox 127cm/s 21cm /s + +-------+---- --+-------+ Superior mesenteric - mid 192cm/s 39cm /s + +-------+---- --+-------+ Superior mesenteric - dist 133cm/s 25cm /s + +-------+---- --+-------+ Inferior mesenteric 42cm/s + +-------+---- --+-------+ * Electronically signed by: Talia Kohliew [id number] Performing Organization Address City/State/ZIP Code Phon e Number [facility] (ABNORMAL) GLUCOSE, GLUCOMETER (02/26/2015 12:52 EDT) Glucose, 165 (H) 70 - 100 [facility] Fingerstick mg/dl LABORATORY SERVICES [place] [id number]: [facility] Test Performed by LABORATORY Nursing Services SERVICES Specimen Blood Performing Organization Address City/[facility]/ZIP Code Phon e Number [facility] [address] [place] [address] SERVICES FINGER 2 OR MORE VIEWS (02/26/2015 10:59 EDT) Anatomical Region Laterality Modality Other Specimen Narrative [facility] [place] - 02/26/2015 12:21 EDT FINGER 2 OR MORE VIEWS ??02/26/2015 10:59 AM Signs and Symptoms/Comments: ?? Pt reports right 5th finger broken, no prev xr in system, arrived splinted. Findings: Three views of the right 5th finger demo nstrate a nondisplaced, mildly posteriorly angulated fracture of the base of the proximal phalanx. Extension to the articulating s urfaces is not identified. There is narrowing of the interphalangea l and metacarpophalangeal joint spaces. There is osteopenia. No ot her fracture is identified. There are no dislocations. Impression: Nondisplaced, mildly posteriorly angulat ed fracture of the proximal metaphysis of the proximal right 5th pha lanx. Procedure Note Antonio Shaw MD - 02/26/2015 FINGER 2 OR MORE VIEWS 02/26/2015 10:59 AM Signs and Symptoms/Comments: Pt reports right 5th finger broken, no prev xr in system, arrived splinted. Findings: Three views of the right 5th finger demo nstrate a nondisplaced, mildly posteriorly angulated fracture of the base of the proximal phalanx. Extension to the articulating s urfaces is not identified. There is narrowing of the interphalangea l and metacarpophalangeal joint spaces. There is osteopenia. No ot her fracture is identified. There are no dislocations. Impression: Nondisplaced, mildly posteriorly angulat ed fracture of the proximal metaphysis of the proximal right 5th pha lanx. Performing Organization Address [facility] e Number [facility] GLUCOSE, GLUCOMETER (02/26/2015 7:25 EDT) Glucose, 87 70 - 100 [facility] Fingerstick mg/dl LABORATORY SERVICES [place] [id number]: [facility] Test Performed by LABORATORY Nursing Services SERVICES Specimen Blood Performing Organization Address [facility] e Number [facility] [address] [place] [id number] SERVICES HEMOGLOBIN A1C (02/26/2015 5:56 EDT) Hemoglobin A1C 5.3 % [facility] Comment: LABORATORY Reference Range: SERVICES <5.7% Normal 5.7-6.4% Increased risk for diabetes =>6.5% Diagnostic for diabetes (if confirmed) The A1c goal for non adults in general is <7%. The A1c goal for selected patients may be significantly lower than 7% if this can be achieved without significant hypoglycemia or other adverse effects of treatment. Est Avg Glucose 105 mg/dl [facility] Comment: LABORATORY eAG represents the A1c result expressed S ERVICES as average glucose in mg/dl. Specimen Blood Performing Organization Address [facility] e Number [facility] [address] [place] [address] SERVICES (ABNORMAL) HEMAGRAM AND DIFFERENTIAL (02/26/2015 5:56 EDT) Pathologist Sig nature WBC 10.80 4.0 - 12.4 K/cmm [facility] RBC 2.97 (L) 3.86 - 5.04 [facility] M/cmm LABORATORY SERVICES Hemoglobin 8.6 (L) 11.6 - 15.2 [facility] gm/dl LABORATORY SERVICES HCT 25.6 (L) 34.9 - 44.4 % [facility] MCV 86 81 - 98 fl [facility] MCH 29.0 26.7 - 33.3 pg [facility] MCHC 33.5 32.1 - 35.9 [facility] gm/dl LABORATORY SERVICES RDW-CV 17.3 (H) 11.7 - 14.6 % [facility] RDW-SD 52.9 (H) 37.6 - 50.3 fl [facility] Anisocytosis 1+ [facility] PLT 198 141 - 320 [facility] MPV 7.0 (L) 7.5 - 11.2 fl [facility] Neutrophils 65.8 45.5 - 79.7 % [facility] Lymphocytes 23.3 15.0 - 46.8 % [facility] Monocytes 9.9 1.8 - 12.0 % [facility] Eosinophils 0.5 (L) 0.6 - 6.9 % [facility] Basophils 0.5 0.2 - 1.4 % [facility] ABS Neutrophils 7.11 2.20 - 8.85 [facility] K/cm LABORATORY SERVICES ABS Lymphs 2.52 1.09 - 3.30 [facility] K/[facility] LABORATORY SERVICES ABS Monocytes 1.07 (H) 0.1 - 0.8 /[facility] LABORATORY SERVICES ABS Eosinophils 0.05 0.03 - 0.61 [facility] LABORATORY SERVICES ABS Basophils 0.05 0.01 - 0.11 [facility] K/[facility] LABORATORY SERVICES Type of Diff: Automated [facility] Specimen Blood specimen (specimen) - Blood Performing Organization Address City/State/ZIP Code Phon e Number [facility] [address] [place] [address] SERVICES (ABNORMAL) GLUCOSE, GLUCOMETER (02/25/2015 20:39 EDT) Glucose, 182 (H) 70 - 100 [facility] Fingerstick mg/dl LABORATORY SERVICES [place] [id number]: [facility] Test Performed by LABORATORY Nursing Services SERVICES Specimen Blood Performing Organization Address City/State/ZIP Code Phon e Number [facility] [address] [place] [address] SERVICES (ABNORMAL) GLUCOSE, GLUCOMETER (02/25/2015 18:24 EDT) Glucose, 212 (H) 70 - 100 [facility] Fingerstick mg/dl LABORATORY SERVICES [place] [id number]: [facility] Test Performed by LABORATORY Nursing Services SERVICES Specimen Blood Performing Organization Address City/[facility]/ZIP Code Phon e Number [facility] [address] [place] [address] SERVICES IR CHOLANGIOGRAM THRU TUBE (02/25/2015 13:05 EDT) Anatomical Region Laterality Modality Other Specimen Narrative [facility] - 03/01/2015 13:40 EDT Examination: Cholangiogram through existing catheter. February 25, 2015. Clinical history: Abdominal pain, please check position of percutaneous cholecystostomy and assess for biliary patency. Procedure: The patient's percutaneous cholecystosto my was injected with approximately 10 cc of contrast under fl uoroscopy. This shows the tube to be in good position. There are n umerous gallstones within the gallbladder. The cystic duct and common bile duct are widely patent to the level of the duodenum. There is r eflux into normal caliber intrahepatic bile ducts. Procedure Note Lit Rand MD - 03/01/2015 Examination: Cholangiogram through exist ing catheter. February 25, 2015. Clinical history: Abdominal pain, please check position of percutaneous cholecystostomy and assess for biliary patency. Procedure: The patient's percutaneous cholecystosto my was injected with approximately 10 cc of contrast under fl uoroscopy. This shows the tube to be in good position. There are n umerous gallstones within the gallbladder. The cystic duct and common bile duct are widely patent to the level of the duodenum. There is r eflux into normal caliber intrahepatic bile ducts. Performing Organization Address City/State/ZIP Code Phon e Number [facility] [place] INPATIENT ADD-ON (02/25/2015 10:40 EDT) Pathologist Sig nature Tests to be added FREE T4 [facility] Number for problems [id number] [facility] Accession number [id number] [facility] Specimen Other Performing Organization Address City/State/ZIP Code Phon e Number [facility] [address] [place] [address] SERVICES INPATIENT ADD-ON (02/25/2015 3:35 EDT) Tests to be added RANDOM VANCO [facility]ATORY SERVICES Number for problems Not Given [facility] Accession number [id number] [facility] Specimen Other Performing Organization Address [facility] Phon e Number [facility] [address] [place] [address] SERVICES INPATIENT ADD-ON (02/25/2015 3:25 EDT) Tests to be added VALPROIC ACID [facility] Number for problems Not Given [facility] Accession number [id number] [facility] Specimen Other Performing Organization Address [facility] Phon e Number [facility] [address] [place] [address] SERVICES T4 FREE (02/25/2015 3:04 EDT) Pathologist Sig nature Free T4 1.4 0.8 - 1.8 ng/dl [facility] Specimen Blood Performing Organization Address [facility] Phon e Number [facility] [address] [place] [address] SERVICES VANCOMYCIN, RANDOM (02/25/2015 3:04 EDT) Vancomycin Random 12.8 ug/ml [facility] Comment: LABORATORY SERVICES Reference Range: Trough: ??10.0-20.0 Peak: ??25.0-50.0 Specimen Blood Performing Organization Address [facility] Phon e Number [facility] [address] [place] [address] SERVICES VALPROIC ACID LEVEL (02/25/2015 3:04 EDT) Pathologist Sig nature Valproic Acid 92.1 50.0 - 100.0 ug/ml [facility] Specimen Blood Performing Organization Address [facility] Phon e Number [facility] [address] [place] [address] SERVICES LACTIC ACID (02/25/2015 3:04 EDT) Pathologist Sig nature Lactic Acid 1.7 0.7 - 2.1 mmol/L [facility] Specimen Blood Performing Organization Address City/[facility] Phon e Number [facility] [address] [place] [address] SERVICES CORTISOL (02/25/2015 3:04 EDT) Pathologist Sig nature Cortisol 64 ug/dl [facility] Comment: LABORATORY SERVICES Reference Range: a.m. = 4.3-22.4 p.m. = 3.1-16.7 Specimen Blood Performing Organization Address [facility] e Number [facility] [address] [place] [address] SERVICES PROCALCITONIN, INFECTIOUS DISEASE USE ONLY (02/25/2015 3:04 EDT) Procalcitonin, 0.84 ng/ml [facility] Infectious Disease Comment: LABORATORY Use Only Procalcitonin levels <0.5 ng/ml represent SERVICES a low risk of severe sepsis and/or septic shock. Specimen Blood specimen (specimen) - Blood Performing Organization Address [facility] e Number [facility] [address] [place] [address] SERVICES CK (02/25/2015 3:04 EDT) Pathologist Sig nature CK 128 30 - 135 U/L [facility] Y SERVICES Specimen Blood specimen (specimen) - Blood Performing Organization Address [facility] LABORATORY [address] [place] [address] SERVICES TSH (02/25/2015 3:04 EDT) Pathologist Sig nature TSH 1.21 0.35 - 5.00 uIU/ml [facility] Specimen Blood specimen (specimen) - Blood Performing Organization Address [facility] e Number [facility] [address] [place] [address] SERVICES (ABNORMAL) PROTEIN, TOTAL (02/25/2015 3:04 EDT) Pathologist Sig nature Total Protein 4.5 (L) 6.5 - 8.3 g/dl [facility] Specimen Blood specimen (specimen) - Blood Performing Organization Address [facility] Phon e Number [facility] [address] [place] [address] SERVICES BILIRUBIN, TOTAL (02/25/2015 3:04 EDT) Pathologist Sig nature Bilirubin, Total <0.5 <1.4 mg/dl [facility] AT[facility] SERVICES Specimen Blood specimen (specimen) - Blood Performing Organization Address City/[facility]/ZIP Code Phon e Number [facility] [address] [place] [address] SERVICES LIPASE (02/25/2015 3:04 EDT) Pathologist Sig nature Lipase 67 <251 U/L [facility] Specimen Blood specimen (specimen) - Blood Performing Organization Address City/[facility]/ZIP [facility] Phon e Number [facility] [address] [place] [address] SERVICES BILIRUBIN DIRECT/INDIRECT (02/25/2015 3:04 EDT) Pathologist Sig nature Conjugated Bilirubin 0.0 0.0 - 0.3 mg/dl [facility] LABORATORY SERVICES Unconjugated Bilirubin 0.1 0.0 - 1.1 mg/dl [facility] LABORATORY SERVICES Specimen Blood specimen (specimen) - Blood Performing Organization Address [facility]/ZIP [facility] Phon e Number [facility] [address] [place] [address] SERVICES AST (02/25/2015 3:04 EDT) Pathologist Sig nature AST 16 15 - 46 U/L [facility] SERVICES Specimen Blood specimen (specimen) - Blood Performing Organization Address [facility]/ZIP [facility] Phon e Number [facility] [address] [place] [address] SERVICES (ABNORMAL) AMYLASE (02/25/2015 3:04 EDT) Pathologist [facility] Amylase <30 (L)Comment: 30 - 110 U/L [facility] Sample retested, LABORATORY SERVICES result confirmed Specimen Blood specimen (specimen) - Blood Performing Organization Address City/[facility]/ZIP Code Phon e Number [facility] [address] [place] [address] SERVICES ALT (02/25/2015 3:04 EDT) Pathologist Sig nature ALT 16 <53 U/L [facility] SERVICES Specimen Blood specimen (specimen) - Blood Performing Organization Address City/[facility]/ZIP Code Phon e Number [facility] [address] [place] [address] SERVICES ALKALINE PHOSPHATASE (02/25/2015 3:04 EDT) Pathologist Sig nature Total Alkaline 58 38 - 126 U/L [facility] Phosphatase LABORATORY SERVICES Specimen Blood specimen (specimen) - Blood Performing Organization Address City/[facility]/ZIP Code Phon e Number [facility] [address] [place] [address] SERVICES (ABNORMAL) ALBUMIN (02/25/2015 3:04 EDT) Pathologist Sig nature Albumin 2.1 (L) 3.4 - 4.9 g/dl [facility] LABORAT ORY SERVICES Specimen Blood specimen (specimen) - Blood Performing Organization Address City/[facility]/ZIP Code Phon e Number [facility] [address] [place] [address] SERVICES (ABNORMAL) CREATININE (02/25/2015 3:04 EDT) Pathologist Sig nature Creatinine 0.48 (L) 0.52 - 1.04 mg/dl [facility] SERVICES GFR, Calculated >60 >60 ml/min/1.73m2 [facility] Specimen Blood specimen (specimen) - Blood Performing Organization Address [facility]/ZIP Code Phon e Number [facility] [address] [place] [address] SERVICES BUN (02/25/2015 3:04 EDT) Pathologist Sig nature BUN 10 10 - 26 mg/dl [facility] LABORATO RY SERVICES Specimen Blood specimen (specimen) - Blood Performing Organization Address [facility]/ZIP [facility] Phon e Number [facility] [address] [place] [address] SERVICES MAGNESIUM (02/25/2015 3:04 EDT) Pathologist Sig nature Magnesium 2.1 1.7 - 2.8 mg/dl [facility] T[facility] SERVICES Specimen Blood specimen (specimen) - Blood Performing Organization Address City/[facility]/ZIP Code Phon e Number [facility] [address] [place] [address] SERVICES (ABNORMAL) SCREENING GLUCOSE (02/25/2015 3:04 EDT) Pathologist Sig nature Glucose, Screening 134 (H) 70 - 100 mg/dl [facility] SERVICES Specimen Blood specimen (specimen) - Blood Performing Organization Address City/[facility]/ZIP Code Phon e Number [facility] [address] [place] [address] SERVICES PHOSPHORUS (02/25/2015 3:04 EDT) Pathologist Sig nature Phosphorus 2.9 2.5 - 4.5 mg/dl [facility] T[facility] SERVICES Specimen Blood specimen (specimen) - Blood Performing Organization Address City/[facility]/ZIP Code Phon e Number [facility] [address] [place] [address] SERVICES ELECTROLYTES (02/25/2015 3:04 EDT) Pathologist Sig nature Sodium 140 136 - 145 mEq/L [facility] SERVICES Potassium 3.8 3.5 - 5.0 mEq/L [facility] SERVICES Chloride 109 96 - 110 mEq/L [facility] ORY SERVICES CO2 24 24 - 32 mEq/L [facility] RY SERVICES Specimen Blood specimen (specimen) - Blood Performing Organization Address [facility] Phon e Number [facility] [address] [place] [address] SERVICES (ABNORMAL) CALCIUM, IONIZED (02/25/2015 3:04 EDT) Calcium, Ionized 1.11 (L) 1.12 - 1.32 [facility] Comment: mmol/L LABORATORY Tube not filled to capacity. SERVICES Ionized calcium results may be affected. Interpret results with caution. Specimen Blood specimen (specimen) - Blood Performing Organization Address City/[facility]/ZIP Code Phon e Number [facility] [address] [place] [address] SERVICES INPATIENT ADD-ON (02/25/2015 1:30 EDT) Tests to be added VANCOMYCIN RANDOM [facility]ATORY SERVICES Number for Not Given [facility] problems LABORATORY SERVICES Accession number SAMPLES HAVE NOT BEEN DRAWN YET SPOKE TO [place] ON M4 TO REODER REGULAR ORDER WHEN BLOOD IS [facility] DRAWN LABORATORY SERVICES Specimen Other Performing Organization Address City/State/ZIP Code Phon e Number [facility] [address] [place] [address] SERVICES (ABNORMAL) PROTIME (02/25/2015 0:26 EDT) Pro Time 13.8 (H) 9.5 - 12.3 [facility] secs LABORATORY SERVICES I.N.R. 1.3 (H) 0.9 - 1.1 [facility] Comment: Ratio LABORATORY SERVICES Moderate Intensity Coumadin INR = 2.0-3.0 Adjustments in anticoagulant therapy dose should be based upon the INR and NOT the Pro Time. Specimen Blood specimen (specimen) - Blood Performing Organization Address City/State/ZIP Code Phon e Number [facility] [address] [place] [address] SERVICES (ABNORMAL) HEMAGRAM AND DIFFERENTIAL (02/25/2015 0:26 EDT) Pathologist Sig nature WBC 14.79 (H) 4.0 - 12.4 K/cmm [facility] LABORAT[facility] SERVICES RBC 3.20 (L) 3.86 - 5.04 [facility] LABORATORY SERVICES Hemoglobin 9.2 (L) 11.6 - 15.2 [facility] gm/dl LABORATORY SERVICES HCT 28.1 (L) 34.9 - 44.4 % [facility]ORAT[facility] SERVICES MCV 88 81 - 98 fl [facility] SERVICES MCH 28.8 26.7 - 33.3 pg [facility] LABORAT[facility] SERVICES MCHC 32.7 32.1 - 35.9 [facility] gm/dl LABORATORY SERVICES RDW-CV 17.1 (H) 11.7 - 14.6 % [facility] LABORAT[facility] SERVICES RDW-SD 52.9 (H) 37.6 - 50.3 fl [facility] SERVICES Anisocytosis 1+ [facility] LABORAT[facility] SERVICES PLT 177 141 - 320 K/[facility] LABORATORY SERVICES MPV 7.0 (L) 7.5 - 11.2 fl [facility] SERVICES Neutrophils 86.3 (H) 45.5 - 79.7 % [facility] SERVICES Lymphocytes 7.6 (L) 15.0 - 46.8 % [facility] SERVICES Monocytes 5.9 1.8 - 12.0 % [facility] SERVICES Eosinophils 0.0 (L) 0.6 - 6.9 % [facility] SERVICES Basophils 0.2 0.2 - 1.4 % [facility] LABORAT[facility] SERVICES ABS Neutrophils 12.77 (H) 2.20 - 8.85 [facility] LABORATORY SERVICES ABS Lymphs 1.12 1.09 - 3.30 [facility] LABORATORY SERVICES ABS Monocytes 0.87 (H) 0.1 - 0.8 [facility] ABS Eosinophils 0.00 (L) 0.03 - 0.61 [facility] K/cmm LABORATORY SERVICES ABS Basophils 0.04 0.01 - 0.11 [facility] K/[facility] LABORATORY SERVICES Type of Diff: Automated [facility] SERVICES Specimen Blood specimen (specimen) - Blood Performing Organization Address City/[facility]/ZIP Code Phon e Number [facility] [address] [place] [address] SERVICES BACTERIAL CULTURE/SMEAR, FLUID (02/25/2015 0:21 EDT) Gram Smear Result No polys seen [facility] SERVICES Gram Smear Result Mod [facility] Gram positive cocci LABORATORY SERVICES Result Few [facility] Mixed gram positive growth LABORATORY SER VICES Result Smear suggests [facility] minimal or no LABORATORY SERVICES inflammation. Specimen Other (qualifier value) - Bile Performing Organization Address [facility]/ZIP Code Phon e Number [facility] [address] [place] [address] SERVICES (ABNORMAL) URINE MICROSCOPIC (02/25/2015 0:19 EDT) WBC, UA 10 to 50 0 - 5 /HPF [facility] SERVICES RBC, UA less than 1 0 - 5 /HPF [facility] SERVICES Squam Epithel, UA None seen None seen [facility] LABORATORY SERVICES Renal Epithel, UA None seen None seen [facility] LABORATORY SERVICES Bacteria, UA Rare (A) None seen [facility] LABORATORY SERVICES Crystals, UA None seen /HPF [facility] SERVICES Hyaline Casts, UA None seen /LPF [facility] SERVICES UA Comment Microscopic results [facility] Comment: CENTER LABORATORY are unreliable on SERVICES urines unrefrig >2hrs or refrig >8hrs. Additional Few WBC clumps [facility] LABORATORY SERVICES Specimen Urine Performing Organization Address City/[facility]/ZIP Code Phon e Number [facility] [address] [place] [address] SERVICES BACTERIAL CULTURE, URINE (02/25/2015 0:19 EDT) Pathologist Sig nature Result Less than 10,000 CFU/ml [facility] R Usual urogenital irving. LABORATORY SERVIC ES Specimen Urine (substance) - Urine Performing Organization Address City/[facility]/ZIP Code Phon e Number [facility] [address] [place] [address] SERVICES (ABNORMAL) URINALYSIS (02/25/2015 0:19 EDT) Pathologist Sig nature Color, UA Yellow [facility]ORAT[facility] SERVICES Clarity, UA Clear [facility] SERVICES Glucose, UA Neg Neg [facility]ORATORY SERVICES Bilirubin, UA Neg [facility] LABORATORY SERVICES Ketones, UA Neg Neg [facility] LABORATORY SERVICES Specific [place], 1.010 1.001 - 1.035 [facility] Urine LABORATORY SERVICES Blood, UA Trace (A) [facility] LABORATORY SERVICES pH, UA 7.0 4.6 - 8.0 [facility] LABORATORY SERVICES Protein, UA Neg [facility] LABORATORY SERVICES Urobilinogen, UA 0.2 0.2 - 1.0 [facility] E.U./dl LABORATORY SERVICES Nitrite, UA Neg [facility] LABORATORY SERVICES Leuk Esterase Trace (A) [facility] LABORATORY SERVICES Specimen Urine (substance) - Urine Performing Organization Address [facility] Phon e Number [facility] [address] [place] [address] SERVICES BACTERIAL CULTURE, BLOOD (02/25/2015 0:19 EDT) Pathologist Sig nature Result No growth [facility] LABORATOR Y SERVICES Specimen Blood specimen (specimen) - Blood Performing Organization Address [facility] Phon e Number [facility] [address] [place] [address] SERVICES BACTERIAL CULTURE, BLOOD (02/25/2015 0:19 EDT) Pathologist Sig nature Result No growth [facility]OR[facility] Y SERVICES Specimen Blood specimen (specimen) - Blood Performing Organization Address [facility]/ZIP [facility] Phon e Number [facility] [address] [place] [address] SERVICES (ABNORMAL) MRSA MOLECULAR DETECTION (02/25/2015 0:10 EDT) Pathologist Sig nature Result POSITIVE for METHICILLIN [facility] ER RESISTANT STAPHYLOCOCCUS LABORATORY SERVI JESSE AUREUS (MRSA) DNA detected by PCR. (AA) Specimen Other (qualifier value) - Nasal Performing Organization Address [facility]/ZIP [facility] Phon e Number [facility] [address] [place] [phone] SERVICES documented in this encounter Visit Diagnoses Diagnosis Severe sepsis - Primary Unspecified septicemia SIRS (systemic inflammatory response syn drome) ([facility]) ([facility]) Systemic inflammatory response syndrome, unspecified Cholecystitis, acute Acute cholecystitis Decubitus ulcer Pressure ulcer, unspecified site Hypoxemia Primary central nervous system vasculiti s (HCC-CMS) ([facility]) Arteritis, unspecified Seizure disorder (HCC-CMS) ([facility]) Unspecified epilepsy without mention of intractable epilepsy Adrenal insufficiency (HCC-CMS) ([facility]) Glucocorticoid deficiency Abdominal pain, right upper quadrant Diabetes mellitus, type 2 ([facility]) Type II or unspecified type diabetes katya litus without mention of complication, not stated as uncontrolled Hypothyroidism Unspecified hypothyroidism documented in this encounter Administered Medications Inactive Administered Medications - up to 3 most recent administrations Medication Order MAR Action Action Date Dose Rate Site acetaminophen (TYLENOL) tablet 650 Given 03/01/2015 12:16 EDT 65 0 mg mg 650 mg, oral, EVERY 4 HOURS PRN, Starting on Sun02/25/15 at 0027, Until Sun03/01/15 at 1734, Pain, Fever, Routine Given 03/01/2015 6:26 EDT 650 mg Given 02/28/2015 22:18 EDT 650 mg ARIPiprazole (ABILIFY) tablet 30 mg Given 02/28/2015 20:09 EDT 30 mg 30 mg, oral, AT BEDTIME, First dose on Sun02/25/15 at 0030, Until Discontinued, Routine Given 02/27/2015 21:11 EDT 30 mg Given 02/26/2015 22:00 EDT 30 mg ascorbic acid (VITAMIN C) tablet 500 mg Given 03/01/2015 8:02 EDT 500 mg 500 mg, oral, DAILY, 7 doses, First dose on Sun02/25/15 at 1515, Last dose on Sun03/03/15 at 0900, Routine Given 02/28/2015 8:32 EDT 500 mg Given 02/27/2015 8:49 EDT 500 mg buPROPion (WELLBUTRIN SR) SR tablet 150 mg Given 03/01/2015 8:02 EDT 150 mg 150 mg, oral, 2 TIMES DAILY, First dose on Sun02/26/15 at 0900, Until Discontinued, Routine Given 02/28/2015 20:09 EDT 150 mg Given 02/28/2015 8:31 EDT 150 mg carbidopa-levodopa (SINEMET) 25-100 mg per Given 03/01/2015 12:1 6 EDT 1 Tablet tablet 1 Tab 1 Tablet, oral, 4 TIMES DAILY, First dose on Sun02/25/15 at 0045, Until Discontinued, Routine Given 03/01/2015 8:02 EDT 1 Tablet Given 02/28/2015 20:09 EDT 1 Tablet cholecalciferol (Vitamin D3) tablet 1,000 Given 03/01/2015 8 :02 EDT 1,000 Units Units 1,000 Units, oral, DAILY, First dose on Sun02/25/15 at 1515, Until Discontinued, Routine Given 02/28/2015 8:33 EDT 1,000 Units Given 02/27/2015 8:48 EDT 1,000 Units divalproex (DEPAKOTE SPRINKLE) capsule Given 03/01/2015 8:02 EDT 1,000 mg capsule, sprinkle 1,000 mg 1,000 mg, oral, 2 TIMES DAILY, First dose on Sun02/26/15 at 0900, Until Discontinued, Routine Given 02/28/2015 20:09 EDT 1,000 mg Given 02/28/2015 8:32 EDT 1,000 mg docusate sodium (COLACE) capsule 200 mg Given 02/28/2015 20:09 EDT 200 mg 200 mg, oral, 2 TIMES DAILY, First dose (after last modification) on Sun02/25/15 at 1015, Until Discontinued, Routine Given 02/27/2015 21:11 EDT 200 mg Given 02/26/2015 21:59 EDT 200 mg electrolyte-R (NORMOSOL-R) solution BOLUS Given 02/25/2015 0:49 EDT 1,000 mL solution 1,000 mL 1,000 mL, intravenous, NOW X1, 1 dose, On Sun02/25/15 at 0100 enoxaparin (LOVENOX) injection 40 mg Given 03/01/2015 8:03 EDT 40 mg 40 mg, subcutaneous, DAILY, First dose on Sun02/26/15 at 0900, Until Discontinued, Routine Given 02/28/2015 8:31 EDT 40 mg Given 02/27/2015 8:48 EDT 40 mg hydroCORTisone sodium succinate (PF) Given 02/25/2015 8:06 EDT 5 0 mg (SOLU-CORTEF) injection 50 mg 50 mg, intravenous, EVERY 6 HOURS, First dose (after last modification) on Maria Eugenia 02/25/15 at 0300, Until Discontinued, Routine Given 02/25/2015 3:09 EDT 50 mg insulin aspart (NOVOLOG FLEXPEN) injecti on Given 02/28/2015 17:28 EDT 2 Units subcutaneous, 3 TIMES DAILY WITH MEALS, First dose on Maria Eugenia 02/25/15 at 1700, Until Discontinued, Routine Given 02/26/2015 17:37 EDT 2 Units Given 02/26/2015 13:24 EDT 2 Units insulin glargine (LANTUS SOLOSTAR) injection Given 5 22:06 EDT 6 Units pen 6 Units 6 Units, subcutaneous, AT BEDTIME, First dose (after last modification) on Maria Eugenia 02/25/15 at 2100, Until Discontinued, Routine Given 02/25/2015 20:39 EDT 6 Units lactated ringers (LR) infusion New Bag 02/25/2015 8:36 EDT 500 mL 75 mL/hr at 75 mL/hr, 500 mL, intravenous, CONTINUOUS, Starting on Sun02/25/15 at 0830, Until Sun02/25/15 at 0855, Routine lamoTRIgine (LAMICTAL) tablet 50 mg Given 03/01/2015 8:02 EDT 50 mg 50 mg, oral, 2 TIMES DAILY, First dose on Maria Eugenia 02/25/15 at 0900, Until Discontinued, Routine Given 02/28/2015 20:09 EDT 50 mg Given 02/28/2015 8:31 EDT 50 mg levothyroxine (SYNTHROID) tablet 100 mcg Given 03/01/2015 8:02 EDT 100 mcg 100 mcg, oral, DAILY, First dose on Maria Eugenia 02/25/15 at 0900, Until Discontinued, Routine Given 02/28/2015 8:31 EDT 100 mcg Given 02/27/2015 8:49 EDT 100 mcg meropenem (MERREM) 1 g in sodium chloride 0.9 % 50 Given 02/25/2015 8:46 EDT 1 g mL infusion 1 g, intravenous, Administer over 30 Minutes, EVERY 8 HOURS, 42 doses, First dose on Sun02/25/15 at 0145, Last dose on Sun03/10/15 at 1745, Controlled antibiotic, has ID approved? No: ICU Patient, Routine Given 02/25/2015 3:19 EDT 1 g Multivitamins with Minerals tablet 1 Tab Given 03/01/2015 8:01 EDT 1 Tablet 1 Tablet, oral, DAILY, First dose on Sun02/25/15 at 1515, Until Discontinued, Routine Given 02/28/2015 8:33 EDT 1 Tablet Given 02/27/2015 8:48 EDT 1 Tablet potassium chloride (KLOR-CON) packet 40 mEq Given 03/01/2015 10:07 EDT 40 mEq 40 mEq, oral, NOW X1, 1 dose, On Sun03/01/15 at 1000, Routine potassium chloride infusion 20 mEq Given 02/25/2015 4:01 EDT 20 mEq 20 mEq, intravenous, PRN, Starting on Sun02/25/15 at 0006, Until Sun02/25/15 at 0855, low potassium, Routine predniSONE (DELTASONE) tablet 10 mg Given 02/26/2015 9:07 EDT 10 mg 10 mg, oral, DAILY, First dose (after last modification) on Sun02/26/15 at 0900, Until Discontinued, Routine predniSONE (DELTASONE) tablet 5 mg Given 03/01/2015 8:01 EDT 5 mg 5 mg, oral, DAILY WITH BREAKFAST, First dose (after last modification) on Sun02/27/15 at 0800, Until Discontinued, Routine Given 02/28/2015 8:32 EDT 5 mg Given 02/27/2015 8:48 EDT 5 mg simvastatin (ZOCOR) tablet 20 mg Given 02/28/2015 17:31 EDT 20 mg 20 mg, oral, EVERY EVENING, First dose on Sun02/26/15 at 1700, Until Discontinued, Routine Given 02/27/2015 17:16 EDT 20 mg Given 02/26/2015 17:37 EDT 20 mg sodium phosphate (FLEET) enema 1 Enema Given 02/25/2015 3:36 EDT 1 Enema 1 Enema, rectal, DAILY PRN, Starting on Sun02/25/15 at 0248, Until Sun02/25/15 at 0754, Constipation, Routine traMADol (ULTRAM) tablet 50 mg Given 03/01/2015 12:16 EDT 50 mg 50 mg, oral, EVERY 6 HOURS PRN, Starting on Sun02/26/15 at 0854, Until Sun03/01/15 at 1734, Pain, Routine Given 03/01/2015 6:26 EDT 50 mg Given 03/01/2015 0:12 EDT 50 mg vancomycin (VANCOCIN) 1,250 mg in dextrose 5% Given 8:07 EDT 1,250 mg (D5W) 250 mL IVPB 1,250 mg (rounded from 1,240.5 mg = 15 m g/kg ? 82.7 kg), intravenous, Administer over 75 Minutes, EVERY 12 HOURS, 28 doses, First dose on Sun02/25/15 at 0900, Last dose on Sun03/10/15 at 2100, Routine documented in this encounter Discontinued Medications Medication Sig Discontinue Reason Start Date End Date insulin lispro 100 Inject into the skin 4 times daily FSBG Units 03/01/2015 unit/mL cartridge 180-220 2 221-260 3 261-300 4 301-340 5 insulin glargine (LANTUS Inject 10 Units into 02/19/20 15 03/01/2015 SOLOSTAR) 100 unit/mL (3 the skin at bedtime mL) injection pen documented as of this encounter Active and Recently Administered Medications Times are shown in EDT. Scheduled Medication Order 02/27/2015 02/28/2015 03/01/2015 ARIPiprazole (ABILIFY) tablet 30 mg (CANCELED) 2110 (G iven - Provider: Wendy Corona RN) 2008 (Given - Provider: Wendy Corona, RN) 30 mg, oral, AT BEDTIME, First dose on T hu 02/25/15 at 0030, Until Discontinued, Routine ascorbic acid (VITAMIN C) tablet 500 mg (CANCELED) 084 9 (Given - Provider: Carmencita Nair RN) 0832 (Given - Provider: Carmencita Nair, XIOMARA) 0802 (Give n - Provider: Alexsandra Reyes RN) 500 mg, oral, DAILY, 7 doses, First dose on Sun02/25/15 at 1515, Last dose on Sun03/03/15 at 0900, Routine buPROPion (WELLBUTRIN SR) SR tablet 150 mg (CANCELED) 0849 (Given - Provider: Carmencita Nair, RN)211 (Given - Provider: Wendy Corona RN) 0831 (Given - Provider: Carmencita Nair, XIOMARA)2008 (Given - Provider: Wendy Corona RN) 0802 (Given - Provider: Alexsandra Reyes RN) 150 mg, oral, 2 TIMES DAILY, First dose on Sun02/26/15 at 0900, Until Discontinued, Routine carbidopa-levodopa (SINEMET) 25-100 mg per tablet 1 Ta b (CANCELED) 0849 (Given - Provider: Carmencita Nair RN)1144 (Given - Provider: Carmencita Nair RN)1716 (Given - Provider: Carmencita Nair RN)211 (Given - Provider: Wendy Corona RN) 0832 (Given - Provider: Carmencita Nair RN)1216 (Given - Provider: Carmencita Nair RN)1735 (Given - Provider: Carmencita Nair RN)2008 (Given - Provider: Wendy Corona RN) 0802 (Given - Provider: Ashu Chavez)1216 (Given - Provider: Alexsandra Reyes RN) 1 Tab, oral, 4 TIMES DAILY, First dose o n Sun02/25/15 at 0045, Until Discontinued, Routine cholecalciferol (Vitamin D3) tablet 1,000 Units (CANCE LED) 0848 (Given - Provider: Carmencita Nair RN) 0833 (Given - Provider: Carmencita Nair RN) 08 (Given - Provider: Alexsandra Reyes RN) 1,000 Units, oral, DAILY, First dose on Sun02/25/15 at 1515, Until Discontinued, Routine divalproex (DEPAKOTE SPRINKLE) capsule capsule, sprink le 1,000 mg (CANCELED) 0848 (Given - Provider: Carmencita Nair RN)211 (Given - Provider: Wendy Corona, XIOMARA) 0832 (Given - Provider: Carmencita Nair RN)2008 (Given - Provider: Wendy Corona RN) 0802 (Given - Provider: Ashu Chavez) 1,000 mg, oral, 2 TIMES DAILY, First dos e on Sun02/26/15 at 0900, Until Discontinued, Routine docusate sodium (COLACE) capsule 200 mg (CANCELED) 084 8 (Not Given - Provider: Carmencita Nair RN - Reason: Patient/family refused)2110 (Given - Provider: Wendy Corona RN) 837 (Not Given - Provider: Carmencita rousseau RN - Reason: Other)2008 (Given - Provider: Wendy Corona RN) 09 (Not Given - Provider: Alexsandra Reyes RN - Reason: Patient/family refused) 200 mg, oral, 2 TIMES DAILY, First dose on Sun02/25/15 at 1015, Until Discontinued, Routine enoxaparin (LOVENOX) injection 40 mg (CANCELED) 0848 ( Given - Provider: Carmencita Nair RN) 08 (Given - Provider: Carmencita Nair RN) 08 (Give n - Provider: Alexsandra Reyes RN) 40 mg, subcutaneous, DAILY, First dose o n Sun02/26/15 at 0900, Until Discontinued, Routine insulin aspart (NOVOLOG FLEXPEN) injection (CANCELED) 0745 (Not Given - Provider: Carmencita Nair RN - Reason: Order parameters not met)1159 (Not Given - Provider: Carmencita Nair RN - Reason: Order parameters not met)1717 (Not Given - Provider: Carmencita Nair RN - Reason: Order parameters not met) 0741 (Not Given - Provider: Carmencita Nair RN - Reason: Order parameters not met)1232 (Not Given - Provider: Carmencita Nair RN - Reason: Order parameters not met)1728 (Given - Provider: Carmencita Nair RN) 0713 (Not Given - Provider: Alexsandra Reyes RN - Reason: Order parameters not met) subcutaneous, 3 TIMES DAILY WITH MEALS, First dose on Sun02/25/15 at 1700, Until Discontinued lamoTRIgine (LAMICTAL) tablet 50 mg (CANCELED) 49 (G iven - Provider: Carmencita Nair RN)2110 (Given - Provider: Wendy Corona RN) 830 (Given - Provider: Carmencita Nair RN)2008 (Given - Provider: Wendy Corona RN) 0802 (Given - Provider: Alexsandra Reyes RN) 50 mg, oral, 2 TIMES DAILY, First dose o n Maria Eugenia 02/25/15 at 0900, Until Discontinued, Routine levothyroxine (SYNTHROID) tablet 100 mcg (CANCELED) 08 49 (Given - Provider: Carmencita Nair RN) 0831 (Given - Provider: Carmencita Nair RN) 0802 (Give n - Provider: Alexsandra Reyes RN) 100 mcg, oral, DAILY, First dose on Maria Eugenia 02/25/15 at 0900, Until Discontinued, Routine Multivitamins with Minerals tablet 1 Tab (CANCELED) 08 48 (Given - Provider: Carmencita Nair RN) 0833 (Given - Provider: Carmencita Nair, XIOMARA) 0801 (Give n - Provider: Alexsandra Reyse, RN) 1 Tab, oral, DAILY, First dose on Maria Eugenia 02/25/15 at 1515, Until Discontinued, Routine potassium chloride (KLOR-CON) packet 40 mEq (COMPLETED) 1007 (Given - Provider: Alexsandra Reyes, XIOMARA) 40 mEq, oral, NOW X1, 1 dose, 03/01/15 at 1000, Routine predniSONE (DELTASONE) tablet 5 mg (CANCELED) 0848 (Gi jose - Provider: Carmencita Nair RN) 0832 (Given - Provider: Carmencita Nair RN) 0801 (Give n - Provider: Alexsandra Reyes RN) 5 mg, oral, DAILY WITH BREAKFAST, First dose on 02/27/15 at 0800, Until Discontinued, Routine simvastatin (ZOCOR) tablet 20 mg (CANCELED) 1716 (Give n - Provider: Carmencita Nair RN) 1731 (Given - Provider: Carmencita Nair RN) 20 mg, oral, EVERY EVENING, First dose o n 02/26/15 at 1700, Until Discontinued, Routine PRN Medication Order 02/27/2015 02/28/2015 03/01/2015 acetaminophen (TYLENOL) tablet 650 mg (CANCELED) 1624 (Given - Provider: Carmencita Nair, XIOMARA)2111 (Given - Provider: Wendy Corona, XIOMARA) 0628 (Given - Provider: Wendy Corona, RN)1216 (Given - Provider: Carmencita Nair RN)1816 (Given - Provider: Carmencita L. Cipri, RN)2218 (Given - Provider: Wendy Corona RN) 0626 (Given - Provider: Wendy Corona, RN)1216 (Given - Provider: Alexsandra Reyes, RN) 650 mg, oral, EVERY 4 HOURS PRN, Startin g Maria Eugenia 02/25/15 at 0027, Until 03/01/15 at 1734, Pain, Fever, Routine traMADol (ULTRAM) tablet 50 mg (CANCELED) 0501 (Given - Provider: Keeley Benitez RN)1144 (Given - Provider: Carmencita Nair, XIOMARA)1716 (Given - Provider: Carmencita Nair, RN)2309 (Given - Provider: Wendy Corona RN) 0628 (Given - Provider: Wendy Corona RN)1216 (Given - Provider: Carmencita Nair RN)1816 (Given - Provider: Carmencita Nair RN) 0012 (Given - Provider: Wendy Corona RN )0626 (Given - Provider: Wendy Corona RN)1216 (Given - Provider: Alexsandra Reyes RN) 50 mg, oral, EVERY 6 HOURS PRN, Starting 02/26/15 at 0854, Until 03/01/15 at 1734, Pain, Routine documented in this encounter Orders Medications Ordered That Might Not Have Count Last Ord ered Date First Ordered Date Been Administered bisacodyl (DULCOLAX) suppository 10 mg 2 5 dextrose 50 % solution 12.5 g 1 02/25/2015 disimpaction enema 1 Bottle 2 02/25/2015 docusate sodium (COLACE) capsule 100-200 1 015 mg glucagon (human recombinant) injection 1 1 015 mg heparin injection 5,000 Units 1 02/25/2015 hydroCORTisone sodium succinate (PF) 1 02/25/2015 (SOLU-CORTEF) injection 100 mg insulin glargine (LANTUS SOLOSTAR) 1 02/25/2015 injection pen 10 Units magnesium sulfate 2g in D5W 50 ml 1 02/25/2015 ondansetron (PF) (ZOFRAN) injection 4 mg 1 015 predniSONE (DELTASONE) tablet 15 mg 1 02/25/2015 senna (SENOKOT) tablet 1-3 Tab 1 02/25/2015 Procedures Count Last Ordered Date First Ordered Date ECG REPORT - SCANNED 1 03/03/2015 Diet Count Last Ordered Date First Ordered Date DISCHARGE DIET 2 03/01/2015 Nursing Count Last Ordered Date First Ordered Date ACTIVITY INSTRUCTIONS 2 03/01/2015 Respiratory Care Count Last Ordered Date First Ordered Date RESPIRATORY CARE EVALUATION ONLY 1 02/25/2015 IV Count Last Ordered Date First Ordered Date IV REQUEST 1 02/25/2015 Admission Count Last Ordered Date First Ordered Date STATUS: INPATIENT ACUTE ADMISSION 1 02/25/2015 Transfer Count Last Ordered Date First Ordered Date CHANGE ATTENDING TO: 1 03/01/2015 NOTIFY PPS OF DISCHARGE COMPLETE 1 03/01/2015 PPS NOTIFICATION OF PATIENT ARRIVAL ON 1 5 UNIT TRANSFER PATIENT 1 02/25/2015 UR PATIENT STATUS CHANGE 1 02/25/2015 Discharge Count Last Ordered Date First Ordered Date DISCHARGE PATIENT 1 03/01/2015 Legal Count Last Ordered Date First Ordered Date MISCELLANEOUS DISCHARGE INSTRUCTIONS 8 03/01/2015 documented in this encounter Additional Health Concerns Infection Onset Date Last Indicated Resolved Time MRSAComment: IP note: risk factors - DM, impaired mobility, retirement resident 02/25/2015 02/25/2015 Pos nares 02/25/2015 Neg nares 11/02/18 Neg nares 12/13/18 N [place] 12/13/18 documented as of this encounter Care Teams Timber Management Specialist Relationship Specialty Start Date End Date Lamberto Henderson MD PCP - General 07/17/11 03/21/16 [address] [facility] [address] [place] [phone] documented as of this encounter
--- OUTSIDE RECORDS SUMMARY | 2022-03-17 00:39 | XMS_ITS | Encounter Summary ---
:1960 Author Organization [facility] Address [address] [place] [address] Care Team Providers Name Role Phone Lamberto Henderson MD Primary Care Provider Reason for Visit Reason Comments Follow-up Encounter Details Date Type Department Care Team Description 10/21/2013 Office Visit [facility] Andrzej Garcia CVA (c erebral Adult Neurology - Main infarction) (Primary [place] [address] [place] [address]) [address] [place] [phone] Social History Tobacco Use Types Packs/Day Years Used Date Former Smoker Cigarettes 0.5 40 Quit: 11/30/19 11 Smokeless Tobacco: Never Used Alcohol Use Standard Drinks/Week Comments No 0 (1 standard drink = 0.6 oz pure alcoho l) Sex Assigned at Date Recorded Not on file documented as of this encounter Last Filed Vital Signs Vital Sign Reading Time Taken Comments Blood Pressure 130/74 10/21/2013 1546 EST Pulse 68 10/21/2013 1546 EST Temperature - - Respiratory Rate 14 10/21/2013 1546 EST Oxygen Saturation - - Inhaled Oxygen Concentration [...] as of this encounter Discharge Diagnoses Diagnosis 434.01 CEREBRAL THROMB CEREBRAL INFARCT[ ICD-9-CM] documented in this encounter Discharge Disposition Disposition Code Departure Means Destination Auto Discharge documented in this encounter Progress Notes Andrzej Garcia MD - 10/21/2013 8762 EST Subjective: Patient ID: Ginger Barrera is an 53 y.o. RH female. Chief Complaint Patient presents with ??? Follow-up HPI Seen today in a wheelchair (and wearing a R AFO) with her son, in follow-up. They indicate that in May 2013 she had a mini-stroke. Apparently had an abrupt onset of slurred speech, not looking well, L facial weakness and some confusion/incoherence. She was seen in a home visit, by her PCP, Nhi and sent over to [facility] for further evaluation. This apparently included an MRI head, which is not available for review (not the results either) and some lab work which revealed a UTI (she has along term indwelling Martinez). She was treated for the UTI and sent home from the ED. She recovered completely within a few days, and has had no change in her meds, nor any recurrence of these symptoms, n or of any thing that seems stroke-like. She indicates that she currently has a UTI again. She is otherwise doing well. Her primary care-child care leader is her son, and she has a home health aide that comes over three times weekly. She is unable to transfer on her own, but can put some weight on the Rleg. She doesn't use the R hand for anything, except maybe stabilizing something when she is using the L to move it primarily. Patient Active Problem List Diagnosis ??? Hypertension ??? DM (diabetes mellitus screen) [...] surgery ??? Foot surgery ??? Wrist surgery No family history on file. Social History Substance Use Topics ??? Smoking status: Former Smoker -- 0.50 packs/day for 40 years Types: Cigarettes Quit date: 11/29/2010 ??? Smokeless tobacco: Never Used ??? Alcohol Use: No Current Outpatient Prescriptions on File Prior to Visit Medication Sig Dispense Refill ??? aripiprazole (ABILIFY) 15 mg tablet Take 30 mg by mouth at bedtime. ??? divalproex (DEPAKOTE) 500 mg EC tablet Take by mouth 2 times daily. ??? docusate sodium (COLACE) 100 mg capsule Take 100 mg by mouth 2 times daily as needed. ??? fluticasone (FLONASE) 50 mcg/actuation nasal spray 50 mcg by nasal route daily as needed. ??? guaifenesin (MUCINEX) 600 mg SR tablet Take 600 mg by mouth 2 times daily as needed. ??? ibuprofen (MOTRIN) 200 mg tablet Take 400 mg by mouth 5 times daily. ??? insulin aspart (NOVOLOG) 100 unit/mL injection Inject into the skin 3 times daily before meals. 10units tid ??? insulin glargine (LANTUS SOLOSTAR PEN) 100 unit/mL (3 mL) injection pen Inject 18 Units into theskin at bedtime. ??? levothyroxine (SYNTHROID) 100 mcg tablet Take 100 mcg by mouth daily. ??? MULTI-VITAMIN ORAL Take by mouth. ??? mycophenolate mofetil (CELLCEPT) 200 mg/mL suspension Take 0.5 mL by mouth daily. Need labs doneevery 3 months 3 Bottle 1 ??? nitroGLYCERIN (NITROSTAT) 0.[address] 0.4 mg under the tongue every 5 minutes as needed. ??? oxybutynin (DITROPAN) 5 mg tablet Take 1 Tab by mouth 3 times daily. 100 Tab 6 ??? pantoprazole (PROTONIX) 40 mg tablet Take 40 mg by mouth daily. ??? predniSONE (DELTASONE) 5 mg tablet Take 2.5 mg by mouth daily. ??? pregabalin (LYRICA) 50 mg capsule Take 1 Cap by mouth 2 times daily. 60 Each 4 ??? senna (SENNA) 8.6 mg tablet Take 1 Tab by mouth daily as needed. ??? simvastatin (ZOCOR) 20 mg tablet Take 20 mg by mouth daily. No current facility-administered medications on file prior to visit. Allergies Allergen Reactions ??? Darvocet A500 (Propoxyphene N-Acetaminophen) Nausea And Vomiting ??? Methadone ??? Naproxen Does not work ??? Penicillins ??? Sulfa (Sulfonamide Antibiotics) ??? Tylox (Oxycodone-Acetaminophen) itching Review of Systems Objective: BP 130/74 Pulse 68 Resp 14 Physical Exam Neurologic Exam Exam: Obese Neuro: MS: Awake, alert, and keenly interactive; History concise, questions relevant; No further formal mental status testing was performed. CN: PERRL; VFF to confrontation; EOMI with nystagmus in primary gaze and markedly saccadic pursuits(i wasn't even sure she had full range of movement of the eyes, but she was able to go some in all directions); no facial sensory asymmetry, but she has B facial weakness with limited facial expression; no dysarthria. Motor: Marked R hemiparesis, with little or no movement of the RLE, some decent proximal strength 4- to 4/5 at the R shoulder and elbow, but weaker hand and wrist with limited extension and finger abduction. Sensory: Grossly intact to LT, T, PP without [id number] asymmetry. Coor: FN testing on L revealed no dysmetria. ERNESTO and FFM were intact. Gait: Wheelchair bound. Assessment: Stroke-like event in May, with accompanying UTI. It is not clear to me based on the history about whether this was a new cerebrovascular event (stroke, possibly imaging negative) or whether it was a recrudescence of her prior symptoms of stroke related to a UTI. Her son indicates that he thoughtDr. Henderson felt it might be related to the UTI, and the fact that she was sent home from the ED, implies that they weren't impressed by the symptoms. However, they both insist that the symptoms were abrupt in onset and fairly profound, which is more in line with stroke. I have asked her son to obtain a disc with the MRI images on it so that i may review, and given her history of OPTOMETRIC ASSISTANT vasculitis, i think it is prudent to repeat her CTA head. She has otherwise been doingfine on the minor doses of immunosuppressants for quite a while. I will see her back in clinic in six months, but have suggested they call me after the study so that i can discuss it with them. Plan: CTA head. No change in meds unless there is strong evidence for OPTOMETRIC ASSISTANT vasculitis flair. RTC six months. documented in this encounter Plan of Treatment Upcoming Encounters Date Type Specialty Care Team Description 06/13/2022 Appointment Radiology 06/13/2022 Office Visit Urology Reji Foster MD [address] [facility], [facility], [address] [place], [place] [phone] (Wo rk) documented as of this encounter Visit Diagnoses Diagnosis CVA (cerebral infarction) - Primary Unspecified cerebral artery occlusion wi th cerebral infarction documented in this encounter Historical Medications This list may reflect changes made after this encounter. Medication Sig Dispensed Refills Start Date End Date UNABLE TO FIND Med Name: antibiotic unable to 0 02/12/2015 recall the name, for UTI added in this encounter Care Teams Studio Operator Relationship Specialty Start Date End Date Lamberto Henderson MD PCP - General 07/17/11 03/21/16 [address] [facility] [address] [place] [phone] documented as of this encounter
--- OUTSIDE RECORDS SUMMARY | 2022-03-17 00:39 | XMS_ITS | Encounter Summary ---
:1960 Author Organization [facility] Address [address] [place] [address] Care Team Providers Name Role Phone Lamberto Henderson MD Primary Care Provider Encounter Details Date Type Department Care Team Description 12/26/2012 Hospital Encounter [facility] - Andrzej Garcia MD [address] [phone] (Wo rk) Social History Tobacco Use Types Packs/Day Years Used Date Former Smoker Cigarettes 0.5 40 Quit: 11/30/19 11 Smokeless Tobacco: Never Used Alcohol Use Standard Drinks/Week Comments Yes [id number] (1 standard drink = 0.6 oz pure alcohol) Sex Assigned at Date Recorded Not on [...] Dispensed Refills Start Date End Date levothyroxine (SYNTHROID) Take 125 mcg by 0 125 mcg tablet mouth daily. aripiprazole (ABILIFY) 15 Take 30 mg by mouth 0 0 03/31/2011 11/01/2018 mg tablet at bedtime. divalproex (DEPAKOTE) 500 Take by mouth 2 0 02/12/2015 mg EC tablet times daily. docusate sodium (COLACE) Take 100 mg by mouth 2 times daily 0 03/31/2011 11/02/2018 100 mg capsule fluticasone (FLONASE) 50 50 mcg by nasal 0 02/12/2015 mcg/actuation nasal spray route daily as needed. guaifenesin (MUCINEX) 600 Take 600 mg by 0 02/12/2015 mg SR tablet mouth 2 times daily as needed. ibuprofen (MOTRIN) 200 mg Take 400 mg by mouth every 6 hours as nee ded 0 03/31/2011 05/28/2015 tablet insulin aspart (NOVOLOG) Inject into the 0 02/12/2015 100 unit/mL injection skin 3 times daily before meals. 10units tid insulin glargine (LANTUS Inject 20 Units into the skin at bedtime 0 02/18/2015 SOLOSTAR PEN) 100 unit/mL (3 mL) injection pen MULTI-VITAMIN ORAL Take by mouth. 0 mycophenolate mofetil Take 2.5 mL by 2 Bottle 4 08/16/2011 04/10/2013 (CELLCEPT) 200 mg/mL mouth 2 times suspensionIndications: daily. Need labs Vasculitis, primary SENIOR QUALITY ASSURANCE ENGINEER done every 3 months ([facility]) ([facility]) nitroGLYCERIN (NITROSTAT) Place 0.4 mg under 0 11/02/2018 0.4 mg SL tablet the tongue every 5 minutes as needed. oxybutynin (DITROPAN) 5 mg Take 1 Tab by mouth 100 Tab 6 07/18/2011 02/12/2015 tabletIndications: CVA 3 times daily. (cerebral infarction) pantoprazole (PROTONIX) 40 Take 40 mg by mouth 0 02/12/2015 mg tablet daily. predniSONE (DELTASONE) 5 Take 2.5 mg by 0 11/04/2018 mg tablet mouth daily. senna (SENNA) 8.6 mg Take 1 Tab by mouth daily as needed (constipat ion) 0 03/31/2011 11/02/2018 tablet simvastatin (ZOCOR) 20 mg Take 20 mg by mouth at bedtime 0 11/02/2018 tablet zolpidem (AMBIEN) 5 mg Take 1 Tab by mouth 1 Tab 0 01/2306/12/2013 tablet at bedtime as needed for Sleep. documented as of this encounter Discharge Disposition Disposition Code Departure Means Destination Home or Self [facility] documented in this encounter Plan of Treatment Upcoming Encounters Date Type Specialty Care Team Description 06/13/2022 Appointment Radiology 06/13/2022 Office Visit Urology Reji Foster MD [address] [place] [address] [facility], [facility], [address] [place], [place] [phone] (Wo rk) Pending Results Name Type Priority Associated Diagnoses Date/Ti me OUTSIDE IMAGES - MR NEURO Imaging 13:12 EST OUTSIDE IMAGES - CT BODY Imaging 19:07 EDT Scheduled Orders Name Type Priority Associated Diagnoses Order S chedule OUTSIDE IMAGES - MR Imaging One Time for 1 NEURO Occurrences sta rting 09/03/2013 unti l 09/03/2013 OUTSIDE IMAGES - CT Imaging One Time for 1 BODY Occurrences sta rting 02/12/2015 unti l 02/12/2015 documented as of this encounter Visit Diagnoses Not on filedocumented in this encounter Care Teams Salesperson Terrazzo [employer] Relationship Specialty Start Date End Date Lamberto Henderson MD PCP - General 07/17/11 03/21/16 [address] [facility] [address] [place] [phone] documented as of this encounter
--- OUTSIDE RECORDS SUMMARY | 2022-03-17 00:39 | XMS_ITS | Encounter Summary ---
:[address] [facility] Address [address] [place] [address] Care Team Providers Name Role Phone Lamberto Henderson MD Primary Care Provider Encounter Details Date Type Department Care Team Description 02/12/2015 Hospital Encounter [facility] - Unknown, [facility] [phone] [place] [address] (Work) [place] [address] Social History Tobacco Use Types Packs/Day Years [...] 0 03/31/2011 11/01/2018 mg tablet at bedtime. ciprofloxacin HCl (CIPRO) Take 250 mg by 0 201402/16/2015 250 mg tablet mouth every 12 hours docusate sodium (COLACE) Take 100 mg by mouth 2 times daily 0 03/31/2011 11/02/2018 100 mg capsule ibuprofen (MOTRIN) 200 mg Take 400 mg by mouth every 6 hours as nee ded 0 03/31/2011 05/28/2015 tablet insulin glargine (LANTUS Inject 20 Units into the skin at bedtime 0 02/18/2015 SOLOSTAR PEN) 100 unit/mL (3 mL) injection pen insulin glargine (LANTUS Inject 10 Units 1 Box 0 201403/01/2015 SOLOSTAR) 100 unit/mL (3 into the skin at mL) injection pen bedtime MULTI-VITAMIN ORAL Take by mouth. 0 mycophenolate mofetil Take 0.5 mL by 3 Bottle 1 06/12/2013 04/20/2021 (CELLCEPT) 200 mg/mL mouth daily. 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 predniSONE (DELTASONE) 5 Take 2.5 mg by 0 11/04/2018 mg tablet mouth daily. senna (SENNA) 8.6 mg Take 1 Tab by mouth daily as needed (constipat ion) 0 03/31/2011 11/02/2018 tablet simvastatin (ZOCOR) 20 mg Take 20 mg by mouth at bedtime 0 11/02/2018 tablet documented as of this encounter Discharge Disposition Disposition Code Departure Means Destination Home or Self [facility] documented in this encounter Plan of Treatment Upcoming Encounters Date Type Specialty Care Team Description 06/13/2022 Appointment Radiology 06/13/2022 Office Visit Urology Reji Foster MD [address] [facility], [facility], [address] [place], [place] [address] (Wo rk) documented as of this encounter Procedures Procedure Name Priority Date/Time Associated Comments Diagnosis IR CHANGE PERCUTANEOUS 05/28/2015 9:20 Re sults for this CATHETER - SPECIFY EDT procedure are in TYPE the results section. IR CHOLANGIOGRAM THRU 03/18/2015 9:50 Res ults for this TUBE EDT procedure are i n the results section. documented in this encounter Results IR CHANGE PERCUTANEOUS CATHETER - SPECIFY TYPE (05/28/2015 9:20 EDT) Anatomical Region Laterality Modality Other Specimen Narrative [facility] - 06/01/2015 15:27 EDT Cholecystostomy tube exchange 05/28/2015 9:00 AM Clinical History: Status post placement of cholecystostomy tube for cholecystitis Comparison: Three months prior Procedure and findings: The patient was met in the preprocedural area where the rationale for the procedure as well as the risks and benefits were explained. The patient pro vided informed written and verbal consent. A directed cardiorespira tory examination was performed. A timeout was performed confi rming appropriate patient, procedure, and presence of necessary equ ipment. During the procedure the patient received intravenous conscio us sedation with monitoring of blood pressure, heart rate, respirati on and O2 saturation. The manufacturer's service representative image was obtained. A tube cho langiogram was performed showing that the indwelling tube was pos itioned very close to the fundus. A wire was advanced into the gal lbladder and the existing tube was removed. The tract was dilated with a 14-Tanzanian Ciaran dilator and a 14-Tanzanian drain was then p laced. A repeat contrast injection confirmed appropriate position ing within the body of the gallbladder. Multiple filling defects re flect gallstones. The cystic and common bile ducts are patent. The patient tolerated the procedure well and were no complications. The drain was secured to the skin with a Eva disc and 2-0 Prolene suture. The dose area product was 6593. 10 mL of iodinated contrast was used. Dr. Rand was present for the entire pro cedure. Impression: Upsize of indwelling cholecy stostomy drain. The next upsize will be performed in six weeks wi th the eventual goal of performing percutaneous stone extraction . I have personally reviewed the images an d the above interpretation and agree with the findings. Procedure Note Lit Rand MD - 06/01/2015 Cholecystostomy tube exchange 05/28/2015 9 :00 AM Clinical History: Status post placement of cholecystostomy tube for cholecystitis Comparison: Three months prior Procedure and findings: The patient was met in the preprocedural area where the rationale for the procedure as well as the risks and benefits were explained. The patient pro vided informed written and verbal consent. A directed cardiorespira tory examination was performed. A timeout was performed confi rming appropriate patient, procedure, and presence of necessary equ ipment. During the procedure the patient received intravenous conscio us sedation with monitoring of blood pressure, heart rate, respirati on and O2 saturation. The manufacturer's service representative image was obtained. A tube cho langiogram was performed showing that the indwelling tube was pos itioned very close to the fundus. A wire was advanced into the gal lbladder and the existing tube was removed. The tract was dilated with a 14-Tanzanian Ciaran dilator and a 14-Tanzanian drain was then p laced. A repeat contrast injection confirmed appropriate position ing within the body of the gallbladder. Multiple filling defects re flect gallstones. The cystic and common bile ducts are patent. The patient tolerated the procedure well and were no complications. The drain was secured to the skin with a Eva disc and 2-0 Prolene suture. The dose area product was 6593. 10 mL of iodinated contrast was used. Dr. Rand was present for the entire pro cedure. Impression: Upsize of indwelling cholecy stostomy drain. The next upsize will be performed in six weeks wi th the eventual goal of performing percutaneous stone extraction . I have personally reviewed the images an d the above interpretation and agree with the findings. Performing Organization Address City/State/ZIP Code Phon e Number [facility] IR CHOLANGIOGRAM THRU TUBE (03/18/2015 9:50 EDT) Anatomical Region Laterality Modality Other Specimen Narrative [facility] - 03/19/2015 9:58 EDT Examination: Cholangiogram through existing catheter. March 18, 2015. Clinical history: Cholecystitis with gal lstones. Patient is not a surgical candidate. Please evaluate for percutaneous stone removal. Procedure: The patient's percutaneous cholecystosto my was injected with proximal 25 cc of contrast. This shows several ga llstones within the neck of the gallbladder as well as within the lo oped pigtail portion of the percutaneous cholecystostomy. The cystic duct appears free of stones. The common hepatic and common bile ducts are also free of stones. There is rapid flow of contrast through the cystic duct and common bile duct into the duodenum. The procedu re was performed by Tamir Howe, Physician Crocheter in [facility]. The procedure was performed under the direct supervision of the attending physician, Dr. Rand. Impression: 1. Cholangiogram demonstrating several g allstones within the gallbladder. The intra-and extrahepatic biliary tree is otherwise free of stones. The patient is a candidate for attempted percutaneous stone retrieval. This ??will be scheduled in a n appropriate time frame. Procedure Note Lit Rand MD - 03/19/2015 Examination: Cholangiogram through exist ing catheter. March 18, 2015. Clinical history: Cholecystitis with gal lstones. Patient is not a surgical candidate. Please evaluate for percutaneous stone removal. Procedure: The patient's percutaneous cholecystosto my was injected with proximal 25 cc of contrast. This shows several ga llstones within the neck of the gallbladder as well as within the lo oped pigtail portion of the percutaneous cholecystostomy. The cystic duct appears free of stones. The common hepatic and common bile ducts are also free of stones. There is rapid flow of contrast through the cystic duct and common bile duct into the duodenum. The procedu re was performed by Tamir Howe, Physician Crocheter in [facility] radi[facility]. The procedure was performed under the direct supervision of the attending physician, Dr. Rand. Impression: 1. Cholangiogram demonstrating several g allstones within the gallbladder. The intra-and extrahepatic biliary tree is otherwise free of stones. The patient is a candidate for attempted percutaneous stone retrieval. This will be scheduled in an appropriate time frame. Performing Organization Address City/State/ZIP Code Phon e Number [facility] documented in this encounter Visit Diagnoses Not on filedocumented in this encounter Care Teams Food General Manager Relationship Specialty Start Date End Date Lamberto Henderson MD PCP - General 07/17/11 03/21/16 [address] [facility] [address] [place] [address] documented as of this encounter
--- OUTSIDE RECORDS SUMMARY | 2022-03-17 00:39 | XMS_ITS | Encounter Summary ---
:1960 Author Organization [facility] Address [address] [place] [address] Care Team Providers Name Role Phone Lamberto Henderson MD Primary Care Provider Ovidio Linares MD Primary Care Provider [phone] Pio Odonnell MD Primary Care Provider [phone] Encounter Details Date Type Department Care Team Description 02/25/2015 Historical Results [facility] - Andrzej Tanner MD Only [facility] Radiology Resul ts [address] [facility] [address] [place] [phone] Social History Tobacco Use Types Packs/Day [...] Visit Urology Cristian, Reji Fletcher MD [address] [facility], [facility], [facility] [address] [place], [place] [phone] (Wo rk) documented as of this encounter Procedures Procedure Name Priority Date/Time Associated Diagnosis Comme nts XR CHEST 1 VIEW 02/25/2015 9:09 EDT Resul ts for this procedure are i n the results section. documented in this encounter Results XR CHEST 1 VIEW (02/25/2015 9:09 EDT) Specimen Narrative [facility] - 02/25/2015 9:20 EDT ? EXAM: RADIOLOGY/CHEST-PORTABLE ?EX. D/ (2021) ? CLINICAL INFORMATION: ? FEVER ? Indication: Fever. ? Comparison: None. ? Technique: AP portable chest. ? Findings: There are patchy opacit ies within the right lung base ? consistent with atelectasis and/o r infiltrate of pneumonia. Clinical ? correlation is needed. The lungs are otherwise clear. The ? cardiomediastinal silhouette and pulmonary vessels are within normal ? limits. There is a pigtail surgic al drain superimposed over the ? abdomen right upper quadrant. No free intraperitoneal air is ? identified. ? Impression: ? 1. Right lower lobe atelectasis v ersus infiltrate. ? 2. Surgical drain superimposed of the abdomen right upper quadrant. ? REPORT SIGNED IN OTHER VENDOR SYSTEM 02/25/2015 ?Reported B y: Duglas Barber MD ? CC: ? Transcribed Date/Time: 02/25/2015 (919) ? Registered Nurse Renal: ? Printed Date/Time: 03/03/2019 (13 11) ? PAGE 1 ? Marichuy d Report ? Procedure Note Duglas Barber MD - 07/29/2019 EXAM: RADIOLOGY/CHEST-PORTABLE EX. D/ (2021) CLINICAL INFORMATION: FEVER Indication: Fever. Comparison: None. Technique: AP portable chest. Findings: There are patchy opacities wi thin the right lung base consistent with atelectasis and/or infi ltrate of pneumonia. Clinical correlation is needed. The lungs are ot herwise clear. The cardiomediastinal silhouette and pulmon janina vessels are within normal limits. There is a pigtail surgical antonieta in superimposed over the abdomen right upper quadrant. No free i ntraperitoneal air is identified. Impression: 1. Right lower lobe atelectasis versus infiltrate. 2. Surgical drain superimposed of the a bdomen right upper quadrant. REPORT SIGNED IN OTHER VENDOR SYSTEM 02/25/2015 Reported By: Duglas Barber MD CC: Transcribed Date/Time: 02/25/2015 (919 ) Registered Nurse Renal: Printed Date/Time: 03/03/2019 (2001) PAGE 1 Signed Report Performing Organization Address City/State/ZIP Code Phon e Number [facility] documented in this encounter Visit Diagnoses Not on filedocumented in this encounter Additional Health Concerns Infection Onset Date Last Indicated Resolved Time MRSAComment: IP note: risk factors - DM, impaired mobility, [facility] resident 02/25/2015 02/25/2015 Pos nares 02/25/2015 Neg nares 11/02/18 Neg nares 12/13/18 [place] 12/13/18 documented as of this encounter Care Teams Field Artillery Targeting Technician Relationship Specialty Start Date End Date Lamberto Henderson MD PCP - General 07/17/11 03/21/16 [address] [facility] [address] [place] [phone] Ovidio Linares MD PCP - General 03/22/16 10/30/18 [facility] [address] [place] [phone] Pio Odonnell MD PCP - General 10/31/18 04/20/[address] [place], [place] [phone] documented as of this encounter
--- OUTSIDE RECORDS SUMMARY | 2022-03-17 00:39 | XMS_ITS | Encounter Summary ---
:1960 Author Organization [facility] Address [address] [place] [address] Care Team Providers Name Role Phone Lamberto Henderson MD Primary Care Provider Reason for Visit Reason Onset Date Comments Medication Management 11/26/2013 Encounter Details Date Type Department Care Team Description 11/26/2013 Telephone [facility] Jerson Wynn Medication Management Neurology - Santos Ricketts MD [address] [address] [facility], [place] [address] (Wo rk) Social History [...] this encounter Miscellaneous Notes Telephone Encounter - China Zhou RN - 11/26/2013 1505 EST Spoke with David in the pharmacy. Clarified that patient should be taking 100 mg a day of cellcept. elephone Encounter - Staci Mann RN - 11/26/2013 1442 EST Returned TC to pharmacy - Review of PRISM indicates the cellcept has been managed by Dr. Pak in rheumatology. Phone number [phone] given for them to follow up. Telephone Encounter - Vivek Pollock - 11/26/2013 1311 EST Needs to know dose of celcept documented in this encounter Plan of Treatment Upcoming Encounters Date Type Specialty Care Team Description 06/13/2022 Appointment Radiology 06/13/2022 Office Visit Urology Reji Foster MD [address] [facility], [facility], [address] [place], [place] [address] (Wo rk) documented as of this encounter Visit Diagnoses Not on filedocumented in this encounter Care Teams White Spooler Relationship Specialty Start Date End Date Lamberto Henderson MD PCP - General 07/17/11 03/21/16 [address] [facility] [address] [place] [address] documented as of this encounter
--- OUTSIDE RECORDS SUMMARY | 2022-03-17 00:39 | XMS_ITS | Encounter Summary ---
:[address] [facility] Address [address] [place] [address] Care Team Providers Name Role Phone Lamberto Henderson MD Primary Care Provider Reason for Visit Reason Onset Date Comments Requesting Sooner Appointment 12/20/2012 I called a nd spoke with , gave him the appt for the CTA for 12/26 ckin by 1PM at [facility]. Fille d out transportation form and faxed it to [employer] Transportation. Got current creanine labs done and faxed to CT dept. Encounter Details Date Type Department Care Team Description 12/20/2012 Telephone [facility] Andrzej Garcia Reques ting Sooner Neurology - S Koby kiran MD Appointment (I called and [address] spoke with , [place] [address] [place], [place] him the appt for the CTA [phone] for 4 ckin by 1PM at [phone] [facility]. Filled out (Work) transportation form and [phone] faxed it to [facility] (Fax) Transportation. Got current creanin e labs done and faxed to CT dept.) Social History Tobacco Use Types Packs/Day Years Used Date Former Smoker Cigarettes 0.5 40 Quit: 11/30/19 11 Smokeless Tobacco: Never Used Alcohol Use Standard Drinks/Week Comments Yes [id number] (1 standard drink = 0.6 oz pure [...] encounter Miscellaneous Notes Telephone Encounter - Cindy Martinez - 12/20/2012 1005 EDT I called and spoke with , gave him the appt for the CTA for 12/26 ckin by 1PM at [facility].Filled out transportation form and faxed it to [employer] Transportation. Got current creanine labs done and faxed to CT dept. documented in this encounter Plan of Treatment Upcoming Encounters Date Type Specialty Care Team Description 06/13/2022 Appointment Radiology 06/13/2022 Office Visit Urology Reji Foster MD [address] [facility], [facility], [address] [place], [place] [address] (Wo rk) documented as of this encounter Visit Diagnoses Not on filedocumented in this encounter Care Teams Medical Legal Investigator Relationship Specialty Start Date End Date Lamberto Henderson MD PCP - General 07/17/11 03/21/16 [address] [facility] [address] [place] [address] documented as of this encounter
--- OUTSIDE RECORDS SUMMARY | 2022-03-17 00:39 | XMS_ITS | Encounter Summary ---
:1960 Author Organization [facility] Address [address] [place] [address] Care Team Providers Name Role Phone Lamberto Henderson MD Primary Care Provider Reason for Visit Reason Onset Date Comments Appointment Related 10/23/2013 you are scheduled fo r a CT angio on 11/07 at the [facility] with a ckin time of 1PM, push fluids light lunch, have labs antonieta wn morning of or before. Encounter Details Date Type Department Care Team Description 10/23/[address] [facility] Andrzej Garcia MD Appointment Related Neurology - [address] (you are scheduled for 1 [place], [place] a CT angio on 11/07 [place] [phone] the [facility] with [phone] a ckin time of 1PM, (Work) push fluids light lunch, oconnell ve labs drawn morning of or b efore.) Social History Tobacco Use Types Packs/Day Years [...] Notes Telephone Encounter - Cindy Martinez - 10/23/2013 0841 EST you are scheduled for a CT angio on 11/07 at the [facility] with a ckin time of 1PM, push fluids light lunch, have labs drawn morning of or before. documented in this encounter Plan of Treatment Upcoming Encounters Date Type Specialty Care Team Description 06/13/2022 Appointment Radiology 06/13/2022 Office Visit Urology Reji Foster MD [address] [facility], [facility], [address] [place], [place] [phone] (Wo rk) documented as of this encounter Visit Diagnoses Not on filedocumented in this encounter Care Teams Noc Technician Relationship Specialty Start Date End Date Lamberto Henderson MD PCP - General 07/17/11 03/21/16 [address] [facility] [address] [place] [address] documented as of this encounter
--- OUTSIDE RECORDS SUMMARY | 2022-03-17 00:39 | XMS_ITS | Encounter Summary ---
:1960 Author Organization [facility] Address [address] [place] [address] Care Team Providers Name Role Phone Lamberto Henderson MD Primary Care Provider Reason for Referral Follow Up (Routine/Next Available) - Closed Specialty Diagnoses / Procedures Referred By Contact Refer marcus To Contact Diagnoses Cholecystitis, acute Diabetes mellitus, type 2 (HCC) Chon Edwards MD 130 [facility] [address] [phone] Referral ID Status Reason Start Date Expiration Visits Visits Date Requested Authorized [id number] Closed Continuity of 02/18/2015 1 1 Care Question Answer Reason for Request: f/u admission for acute chol ecystitis and need for insulin titration after dose was dec reased ollow Up (Routine) - Canceled Specialty Diagnoses / Procedures Referred By Contact Refer red To Contact General Surgery Diagnoses Cholecystitis, acute Chon Edwards Trevisani, Gino Thomas, MD MD 130 [facility] [address] [facility] [address] [place] [address] Pavilion, Level [address] [place] [address] Phone: Fax: Referral ID Status Reason Start Expiration Visits Visits Date Date Requested Authorized [id number] Canceled Specialty 02/18/2015 1 1 Services Required Question Answer Reason for Request: f/u cholangiogram for ? kirstie ve perc karla tube Scheduling Comments (optional ? after cholangiogram which will be perfor med describe specific scheduling needs if 4-6 weeks after discharge applicable): (Routine) - Closed Specialty Diagnoses / Procedures Referred By Contact Refer red To Contact Chon Edwards MD 130 [facility] [address] [place] [phone] Referral ID Status Reason Start Date Expiration Date Visits V isits Requested Authorized [id number] Closed Specialty 02/18/2015 1 1 Services Required (Routine) - Closed Specialty Diagnoses / Procedures Referred By Contact Refer red To Contact Chon Edwards MD [address] [place] [address] [phone] Referral ID Status Reason Start Date Expiration Date Visits V isits Requested Authorized [id number] Closed Specialty 02/18/2015 1 1 Services Required Reason for Visit Reason Comments Abdominal Pain See Tcall. Patient c/o 2 day s of worsening RUQ pain and vomiting. Patient arrives to ED tearfu l with continued c/o 10/10 r sided abdominal pains and elevated HR 120s. 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 Encounter Details Date Type Department Care Team Description 02/12/2015 - Hospital [facility] Cancer Center Mehdi Day MD 111 [facility], Level [address] [place] [address] Cholecystitis, acute (Primary Dx); 02/18/2015 Encounter Hematology & Parag Sandoval MD [address] [phone] Diabetes mellitus, type 2 ([facility]-HCC); Oncology Unit Keli Gallagher MD [address] [address] History of seizures; 111 [facility] Michael Ledesma MD [address] [address] DM (diabetes mellitus) ([facility] [place], [place] Severe sepsis ; [address] [facility] [phone] Social History Tobacco Use Types Packs/Day Years [...] Sign Reading Time Taken Comments Blood Pressure 95/60 02/18/2015 1407 EDT Pulse 72 02/18/2015 1407 EDT Temperature 36.3 ??C (97.3 ??F) 02/18/2015 1407 EDT Respiratory Rate 16 02/18/2015 1407 EDT Oxygen Saturation 97% 02/18/2015 1407 EDT Inhaled Oxygen Concentration - - Weight 84.4 kg (186 lb 1.1 oz) 02/17/2015 0840 EDT Height 169 cm (5' 6.54) 02/15/2015 1604 EDT Body Mass Index 29.55 02/15/2015 1604 EDT documented in this encounter Functional Status Cognitive Status Response Date of Assessment Because of a physical, mental, or emotional condition, do Ye s 12/10/2010 you have serious difficulty concentrating, remembering, or making decisions? (5 years old or older) documented as of this encounter Discharge Summaries Michael Ledesma MD - 02/18/2015 1315 EDT Discharge Summary Attending Physician: Michael Ledesma MD Date of Admission: 02/12/2015 Date of Discharge: 02/18/15 Disposition: [facility] Reason for Admission: Acute cholecystitis Hospital Problems: Principal Problem: Cholecystitis, acute Active Problems: Right spastic hemiparesis Diabetes mellitus, type 2 History of cerebral infarction Primary central nervous system vasculitis Principal Procedure: Placement of percutaneous cholecystostomy tube on February 12, 2015 Secondary Procedures: Ultrasound confirmation of percutaneous cholecystostomy tube and cholangiogram showing non-patency of the cystic duct into the duodenum on February 14, 2015 Hospital Course: Ms. Ginger Barrera is a 54 y.o. 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 A problem-based summary follows: Acute Cholecystitis She presented with severe sepsis and encephalopathy and a CT abdomen was suspicious for acute cholecystitis. Deemed a non-surgical candidate by surgery, a percutaneous cholecystostomy tube was placed for decompression and piperacillin/tazobactam was initiated, as well as aggressive IV hydration and oral pain medicine. Over the next few days she remained afebrile with good output from the tube, and repeat imaging confirmed decompression of the GB, but a cholangiogram showed that the cystic duct was not patent into the duodenum. Surgery's recommendation on discharge was to repeat the cholangiogram through the percutaneous cholecystostomy tube 4-6 weeks after discharge followed by an outpatient follow-up appointment with Dr. Ortiz for consideration of removing the cholecystostomy tube. They advised against continuing antibiotics. In the meantime the tube should be put to gravity drainage. Possible secondary adrenal insufficiency from prednisone Ms Barrera arrived taking 2.5 mg of daily prednisone for her STOP ATTACHER vasculitis. During her admission while ill her blood glucose dropped significantly and her blood pressure remained low despite aggressive IV hydration. For this reason she was started on stress dose steroids with rapid improvement in her blood glucose and blood pressure. These were tapered down by the time of discharge, and she was discharged on her home dose of 2.5 mg prednisone daily. It remains unclear whether she truly has a secondary adrenal insufficiency from such a small dose of prednisone, or instead if she was poorly metabolizing the prednisone and has a low normal blood pressure with decreased oral intake while ill. Diabetes Mellitus As noted above, Ms. Barrera's blood sugars were initially on the low side despite tapering down herglargine. They rebounded after initiation of stress dose steroids, and stayed in the normal range after tapering steroids. She was discharged on a decreased dose of glargine, but it would be appropriate to follow this closely and increase as needed as her diet returns to normal. Of note also, Ms Barrera mentioned to several team members that her finger was injured by her and an appropriate process was initiated on discharge to investigate this. Clinical Issues Needing Follow-up: Titration of insulin as her diet normalizes Outpatient follow-up through tube cholangiogram with subsequent outpatient visit with Dr. Ortiz for consideration of removing percutaneous cholecystostomy tube. Results Pending at Discharge: Test results still pending from this admission Procedure Component Value Units Date/Time Aldosterone, Serum [[id number]] Collected: 02/17/15 130 Lab Status: In process Specimen Information: Blood Updated: 02/17/15 1325 ACTH, Plasma [[id number]] Collected: 02/17/15 130 Lab Status: In process Specimen Information: Blood Updated: 02/17/15 1319 Renin Activity, Plasma [[id number]] Collected: 02/17/15 130 Lab Status: In process Specimen Information: Blood Updated: 02/17/15 1319 Discharge Medications: CHANGE how you take these medications Sig insulin glargine 100 unit/mL (3 mL) injection pen Commonly known as: LANTUS SOLOSTAR What changed: how much to take 10 Units, subcutaneous, AT BEDTIME CONTINUE taking these medications Sig ARIPiprazole 15 [...] 400 mg, oral, EVERY 6 HOURS PRN, insulin lispro 100 unit/mL cartridge subcutaneous, 4 TIMES DAILY, FSBG [id number] [id number] 5 Lamotrigine 50 mg tablet extended release 24hr [...] AT BEDTIME PRN STOP taking these medications Anti-Diarrheal (Loperamide) 2 mg tablet Generic drug: loperamide ciprofloxacin HCl 250 mg tablet Commonly known as: CIPRO Allergies: Darvocet a500; Methadone; Naproxen; Penicillins; Sulfa (sulfonamide antibiotics); and Tylox Appointments Scheduled with [facility] in the Next 3 Months: Follow-Up Appointments and Procedures Recommended to Patient: Follow-up appointments and procedures Amb Consult/Follow Up General Surgery Reason for Request: f/u cholangiogram for ? remove perc karla tube Scheduling Time Frame: after cholangiogram which will be performed 4-6 weeks after discharge Authorizing Provider: Chon Edwards MD Amb Consult/Follow Up Primary Care Physician Reason for Request: f/u admission for acute cholecystitis and need for insulin titration after dosewas decreased Authorizing Provider: Chon Edwards MD May follow healthcare consultant's recommendation Authorizing Provider: Chon Edwards MD Physical Therapy - Evaluate and Treat Authorizing Provider: Chon Edwards MD Follow-Up Labs and Tests: Follow-up labs and tests IR CHOLANGIOGRAM THRU TUBE Complete by: As directed Process Instructions: Patients that require a CBC and PT/INR have the inclusion disease diagnosis: Deep Needle Biopsy, Deep Need Placement or Drainage Procedure, on Anti-Coagulation Therapy, Coagulopathy, Cancer Diagnosis, End Stage Renal Disease, Chronic Renal Failure, Acute Renal Failure or Chemotherapy. Patients that require a BUN and Creatinine have the inclusion disease diagnosis: Greater than age 60, CAD, CHF, Renal Insufficiency and Diabetes. Dialysis Patients require a Potassium level prior to the procedure. Authorizing Provider: Chon Edwards MD Nicholas Phillips MD PGY 1 pgr [phone] 02/18/2015 13:15 I have interviewed and examined the patient. I have personally reviewed all laboratory and radiographic data as well as applicable prior records. I agree with findings and plan of care as documented bythe resident. The accepting physician at rehab is familiar with the patient and did not require a phone call for sign out. Time spent: 25 min. Additions/changes in blue italics. Michael Ledesma MD documented in this encounter Discharge Instructions Jaqui Rey RN - 02/12/2015 DISCHARGE INSTRUCTIONS FOR TUBE MANAGEMENT 02/12/2015 Tube Placed - Gallbladder tube Procedure Site - Abdomen Physician Performing Procedure - Jerson Khalil The most important element of tube care [...] the bag when it is ?? full. 5. DIET- You may resume you regular [...] it with a dry one. CALL THE [facility] INTERVENT[facility] FOR - (Call visiting [...] CONCERNS REGARDING THE PROCEDURE, PLEASE CALL THE [facility] AT , OPTION #3. [...] ?? Y adapters ?? Blue cap ?? service captain ?? Drainage Bag - Connector tubing and bag are one item. These are available at - [facility], Main outpatient pharmacy on the 3rd floor of the [facility] building. This item CAN NOT be [...] 03/31/2011 05/28/2015 tablet insulin glargine (LANTUS Inject 10 Units 1 Box 0 201403/01/2015 SOLOSTAR) 100 unit/mL (3 into the skin at mL) injection pen bedtime insulin lispro 100 unit/mL Inject into the skin 4 times daily FSBG Un its 0 03/01/2015 cartridge 180-220 2 221-260 3 261-300 4 301-340 5 magnesium oxide (MAG-OX) Take 400 mg by 0 11/02/2018 400 mg tablet mouth 2 times daily MULTI-VITAMIN ORAL Take by mouth. 0 mycophenolate mofetil Take 0.5 mL by 3 Bottle 1 06/12/2013 04/20/2021 (CELLCEPT) 200 mg/mL mouth daily. Need suspensionIndications: labs done every 3 Vasculitis, primary STOP ATTACHER months (HCC-CMS) ([facility]) nitroGLYCERIN (NITROSTAT) Place 0.4 mg [...] for Sleep documented as of this encounter Ordered Prescriptions Prescription Sig Dispensed Refills Start Date End Date insulin glargine (LANTUS Inject 10 Units into 1 Box 0 0 02/18/2015 03/01/2015 SOLOSTAR) 100 unit/mL (3 the skin at bedtime mL) injection pen documented in this encounter Discharge Disposition Disposition Code Departure Means Destination Discharged to Other Facility documented in this encounter Progress Notes Lexy Irving RN - 02/18/2015 1741 EDT Focus: Discharge D: Pt noted with discharge orders to [facility]. A: Discharge summary sent to [facility]; discussed plan for discharge with patient. IV D/C???d. Belongings collected and sent with patient. Report called to Klarissa at [facility] @ 1740. R: Pt verbalized understanding of discharge paperwork and denied further questions. Pt left floor via ambulance. Lexy Fabian RN 02/18/2015 17:41 Lore Samano RN - 02/18/2015 1410 EDT Pt slated for DC back to the [facility] in [place]. Pt is in agreement. [facility] will transport at 1700. Form is on the chart. No IM needed. [facility] MD is aware. The receiving physician is Ovidio Swenson MD and he does not require a call from our attending for a return to facility per the medical assisting program director at the facility [facility]. Floor is aware. Case Management will continue to follow for any change in status or needs. Lore Jaeger RN [facility] 0430 Lore Samano RN - 02/17/2015 0928 EDT Call to the [facility] this morning. Spoke with the nuclear equipment operator, Xiomara Shaver. She has my contact information and has requested that the pt is placed into the E dischargesystem in order that clinical information is available to them. I have done this. Pt is a Medicaid pa tient and her bed is on a ten day bed hold. Will continue to follow to transition back to the [facility] as appropriate. Lore Jaeger RN [facility] 0430 Michael Al MD - 02/17/2015 0923 EDT Medicine Progress Note Admit Date: 02/12/2015 22:25 Date of Service: Reason for Admit/CC: 54 y.o. female admitted with RUQ pain now s/p perc karla tube for acute cholecystitis 24 Hour Events/Subjective: - No acute events overnight, afebrile Patient reports some RUQ discomfort this morning but is unchanged compared to prior pain. Tells me her current pain meds adequately control her pain and that the effect lasts long enough. Had one episode of stool incontinence overnight. Eating 3 meals per day and eating popcicles this AM. Denies fever, chills, chest pain/pressure, shortness of breath, nausea, vomiting, constipation. Review of Systems: A complete 10-point review of symptoms was performed and is negative except as noted above. Medications: ARIPiprazole 30 mg QHS buPROPion 150 mg BID carbidopa-levodopa 1 Tab QID divalproex 1,000 mg BID docusate sodium 100 mg BID enoxaparin 40 mg DAILY hydrocortisone 50 mg BID insulin aspart TID WC insulin glargine 5 Units QHS lamoTRIgine 50 mg BID levothyroxine 100 mcg DAILY BEFORE BREAKFAST magnesium oxide 400 mg BID Multivitamins with Minerals 1 Tab DAILY mycophenolate mofetil 100 mg DAILY oxybutynin 15 mg BID piperacillin-tazobactam 4.5 g Q8H simvastatin 20 mg QHS acetaminophen 650 mg Q6H PRN bisacodyl 10 mg Daily PRN dextrose 50 % 25 mL PRN glucagon (human recombinant) 1 mg PRN morphine 4-8 mg Q4H PRN ondansetron (PF) 4 mg Q4H PRN PEG 3350-Electrolytes 17 g Daily PRN senna 1 Tab BID PRN senna 1 Tab Daily PRN Objective: VS: Temp: [35.2 ??C (95.4 ??F)-36.3 ??C (97.3 ??F)] , Pulse: [68-75] , Resp: [18] , BP: (87-119)/(50-72), SpO2: [91 %-99 %] on RA I&O: Intake/Output Summary (Last 24 hours) at 02/17/15 0923 Last data filed at 02/17/15 0850 Gross per 24 hour Intake 260 ml Output 1360 ml Net -1100 ml Physical Exam: General appearance: Morbidly obese, edentulous, pleasant and cooperative, no acute distress Neuro: dysarthric, right-sided paresis of arm and leg, sensation intact to light touch throughout Skin: No rashes or lesions. No jaundice HEENT: NC/AT, edentulous, no oral lesions, no scleral icterus Lungs: clear to auscultation bilaterally, non labored breathing Heart: Tachycardic, S1-S2 normal, no appreciable murmur Abdomen: Obese, soft, tender in right upper quadrant to palpation, percutaneous cholecystostomy tubein place draining bloody fluid, insertion site clean dry and intact bandage Extremities: all extremities warm and well perfused. Labs: Reviewed by me, notable for: CBC: Recent Labs 02/15/15 0754 WBC 3.59* RBC 3.13* HGB 9.1* HCT 27.5* MCV 88 MCH 29.1 MCHC 33.2 PLT 170 NEUTROABS 1.36* BMP: Recent Labs 02/15/15 1024 02/16/15 0529 NA 139 145 K 4.4 4.3 CL 106 107 CO2 28 29 Recent Labs 02/15/15 1418 02/15/15 1720 02/16/15 0027 02/16/15 0620 02/16/15 1121 02/16/15 1655 02/16/15 2048 02/17/15 0724 GLUCOSEFINGE 225* 173* 140* 131* 152* 191* 156* 130* Blood cultures were not drawn at [facility] Bile fluid: No polys, no bacteria Urine culture from [facility]: Enterococcus, sensitive to nitrofurantoin and PCN, resistant to flouroquinolones and tetracycline. Imaging: Cholecystectomy tube check (02/16/15): gallbladder filled with stones, cystic duct remains occluded Assessment/Plan: Ms. Ginger Barrera is a 54 y.o. 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 Acute Cholecystitis and severe sepsis: Patient poor surgical candidate. Percutaneous cholecystostomytube in place and continues to drain fluid. Tube check demonstrating obstruction of cystic duct. 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 Unlikely to be true adrenal insufficiency given low dose 2.5mg daily prednisone at baseline. - decrease hydrocortisone to 25mg every 12 hours PO and if well tolerated will further reduce to 25mg tomorrow with plan to change to home dose the following day - ACTH, renin, and marquez for further characterization STOP ATTACHER Vasculitis, History of stroke, History of Seizure: Patient immunocompromised and therefore at high risk for infection. - Continue home Sinemet, depakote, lamotrigine (extended release on available here, will dose with short acting) - Continue home mycophenolate 100 mg daily, hold prednisone (see adrenal insuff) Anemia, acute, normocytic: Hb stable, normocytic. - daily CBC, transfuse for Hb <7.0 Chronic Martinez catheter, enterococcus in the urine: Unclear if they were pre- existing UTI symptoms. Culture growing enterococcus sensitive to PCN - pip/tazo as above - Martinez change every 4 weeks, last done 1 wk EXAMINING OFFICER - Catheter care per nursing Type 2 Diabetes Mellitus: On insulin at &R. - 5u glargine now that BG increasing with steroids, plus sliding scale aspart - full liquid diet, but will be carb consistent with advanced Hypothyroidism - Continue levothyroxine Bipolar disorder - Continue aripiprazole VTE Prophylaxis: Pharmacologic Prophylaxis: Enoxaparin (Lovenox) 40 mg SQ daily Code Status: Full Code Disposition: Uncertain at this time Consults: CELESTINO Alfredo MD PGY 1 pgr [phone] 02/17/2015 9:23 I have interviewed and examined the patient. I have personally reviewed all laboratory and radiographic data as well as applicable prior records. I agree with findings and plan of care as documented bythe resident. Additions/changes in blue italics. Michael Ledesma MD Devorah Rogers RN - 02/16/2015 1719 EDT In to check current IV for site change, patient has limited access, use of left arm only, with smallfragile, veins. Patient states took over hour to find present one. Patient is receiving IV antibiotics and fluids: is at high risk for infiltration and if alf therapy would recommend central lineto ensure patent access. Devorah Nash RN Jaqui Blake RN - 02/16/2015 1345 EDT Patient arrived from [facility] to room 26 at 1330 for a cholangiogram. I have reviewed Labs, MAR, Pt history. ID'd by name, and viewed name bracelet. As the nurse in the room I explained goals of procedure. Pt positioned Supine on the table. Gel pads under elbows, Safety straps in place. Cali moment at start of procedure 1345 between adj and SR. Tube check done under fluro by Dr. Benitez. Tube stays in. Patient back to [facility] in stable condition. Michael Al MD - 02/16/2015 0722 EDT Medicine Progress Note Admit Date: 02/12/2015 22:25 Date of Service: Reason for Admit/CC: 54 y.o. female admitted with RUQ pain now s/p perc karla tube for acute cholecystitis 24 Hour Events/Subjective: - Started stress dose steroids with good response in BP and glucose, some lethargy yesterday which seems to have resolved, though she is still tired but not difficult to arouse overnight per reports. - Feeling about the same today, has eaten little but asks for food. Pain by her report about the same, perhaps mildly better. Reports her last BM was Review of Systems: A complete 10-point review of symptoms was performed and is negative except as noted above. Medications: ARIPiprazole 30 mg QHS buPROPion 150 mg BID carbidopa-levodopa 1 Tab QID divalproex 1,000 mg BID docusate sodium 100 mg BID enoxaparin 40 mg DAILY hydrocortisone 50 mg DAILY insulin aspart Q6H insulin glargine 5 Units QHS lamoTRIgine 50 mg BID levothyroxine 100 mcg DAILY BEFORE BREAKFAST magnesium oxide 400 mg BID Multivitamins with Minerals 1 Tab DAILY mycophenolate mofetil 100 mg DAILY oxybutynin 15 mg BID piperacillin-tazobactam 4.5 g Q8H simvastatin 20 mg QHS acetaminophen 650 mg Q6H PRN dextrose 50 % 25 mL PRN glucagon (human recombinant) 1 mg PRN morphine 4-8 mg Q4H PRN ondansetron (PF) 4 mg Q4H PRN PEG 3350-Electrolytes 17 g Daily PRN senna 1 Tab Daily PRN Objective: VS: Temp: [35.8 ??C (96.4 ??F)-36.6 ??C (97.9 ??F)] , Pulse: [71-82] , Resp: [14-18] , BP: (89-129)/(52-66) , SpO2: [93 %-98 %] on RA I&O: Intake/Output Summary (Last 24 hours) at 02/16/15 0722 Last data filed at 02/16/15 0615 Gross per 24 hour Intake 230 ml Output 4100 ml Net -3870 ml No recorded BM x3 days Physical Exam: General appearance: Morbidly obese, edentulous, pleasant and cooperative, no acute distress Neuro: Alert and oriented to person, place and time, dysarthric, right-sided paresis of arm and leg,sensation intact to light touch throughout Skin: Skin color, temperature, turgor normal. No rashes or lesions. No jaundice HEENT: NC/AT, edentulous, no oral lesions, no scleral icterus Lungs: clear to auscultation bilaterally, non labored breathing Heart: Tachycardic, S1-S2 normal, no appreciable murmur Abdomen: Obese, soft, only mildly tender in right upper quadrant to palpation and nontender to percussion, moderately tympanic, percutaneous cholecystostomy tube in place draining bloody fluid, insertion site clean dry and intact bandage Extremities: all extremities warm and well perfused. Splint on right index finger. Labs: Reviewed by me, notable for: CBC: Recent Labs 02/14/15 0752 02/15/15 0754 WBC 5.54 3.59* RBC 2.98* 3.13* HGB 8.9* 9.1* HCT 26.1* 27.5* MCV 88 88 MCH 29.7 29.1 MCHC 33.9 33.2 PLT 156 170 NEUTROABS 2.88 1.36* BMP: Recent Labs 02/15/15 1024 02/16/15 0529 NA 139 145 K 4.4 4.3 CL 106 107 CO2 28 29 Recent Labs 02/14/15 2206 02/15/15 0642 02/15/15 0724 02/15/15 1210 02/15/15 1418 02/15/15 1720 02/16/15 0027 02/16/15 0620 GLUCOSEFINGE 137* 87 112* 168* 225* 173* 140* 131* Blood cultures were not drawn at [facility] Bile fluid: No polys, no bacteria Urine culture from [facility] [place] [place]: Enterococcus, sensitive to nitrofurantoin and PCN, resistant to flouroquinolones and tetracycline. Imaging: No new imaging Tube study shows ongoing occlusion of cystic duct and GB with gallstones Assessment/Plan: Ms. Ginger Barrera is a 54 y.o. 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 with residual right-sided spastic hemiparesis, on immunosuppression, chronic Martinez catheter, diabetes mellitus type 2, seizures, bipolar disorder and healed sacral ulcer who presents today as a transfer from [facility] for RUQ pain. Patient has recently received IV hydromorphone and is somnolent, limiting history. Per records, patient had been complaining of 2-3 days of sharp, right-sided abdominal pain and worse with palpation. She reportedly had associated nausea and vomiting with 3 episodes of emesis today. Per ED report from [facility], she had started ciprofloxacin on 02/09/2015 for presumed UTI. Last bowel movement was 02/10/2015. Upon evaluation, patient denies diarrhea, fevers, or chills. She endorses some relief with pain medication. She denies having symptoms like this before and denies history of abdominal surgery. At [facility] patient was afebrile. Blood [...] of multiple CVAs, patient was transferred to [facility] for percutaneous cholecystotosmy. [facility] PS Patient Active Problem List Diagnosis Date Noted [...] Comment: History of EtOH abuse Lives at [facility] for many years. 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 5 grown children and many grandchildren. Family History Problem Relation Age of Onset ??? Kidney Disease Neg Hx ??? Stroke Mother ??? Alcohol Abuse Sister ??? Alcohol Abuse Brother ??? Alcohol Abuse Father REVIEW OF SYSTEMS: Positive for: abdominal pain, nausea, vomiting, nonproductive cough, chronic indwelling martinez changed last week (q4 week change) Negative for: fevers, chills, headache, chest pain, diarrhea A limited review of systems was obtained due to patient's mental status. OBJECTIVE: BP 108/82 Pulse 125 Temp(Src) 37.7 ??C (99.9 ??F) (Temporal) Resp 12 SpO2 99% on 2L NC Intake/Output Summary (Last 24 hours) at 02/12/152202 Last data filed at 02/12/152146 Gross per 24 hour Intake 0 ml Output 200 ml Net -200 ml General: Female appearing older than stated age, no acute distress, occassionally moaning Psychiatric: Somnolent but oriented to person and place, able to answer in 2-3 word sentences Head: Normocephalic, without obvious abnormality, atraumatic. Eyes: Conjunctivae/corneas clear. Pupils constricted but reactive, unable to follow commands to assess EOM. Sclerae anicteric ENT: Dry mucus membranes; patient unable to fully open mouth to assess oropharynx due to TMJ. Edentulous. Neck: Supple, symmetrical, trachea midline, no thyromegaly, no JVD. Lymph Nodes: No cervical or supraclavicular lymphadenopathy. Lungs: Lungs clear to auscultation laterally and anteriorly Chest wall: No tenderness or deformity. Heart: Tachycardic; S1, S2 present; distant heart sounds. Abdomen: Non-distended with tenderness throughout entire right side. Involuntary guarding throughoutentire abdomen, unable to assess Lindsay's sign. Hypoactive bowel sounds. Unable to assess organomegaly or masses due to guarding. No suprapubic tenderness. Genitalia: Martinez draining clear yellow urine. Extremities: Extremities atraumatic, without cyanosis. Trace pitting edema bilaterally. Back: Patient unable to tolerate rolling due to pain. Pulses: Unable to palpate LE pulses, radials 2+. Skin: No rashes or lesions Neurologic: CNIV- intact, patient unable to smile to assess CN VII. Right eye ptosis. CN VIII-X, XII intact. Diminished CN XI on right side. Spastic hemiparesis on right, strength 2/5 in RUE and RLE.Left side with 4+/5 strength. Decreased sensation to light touch on right side. No clonus noted. Unable to assess for sacral ulcer. Per ED attending has a sacral indentation consistent with fully healed ulcer. Blanching erythema over coccyx, otherwise no lesions. Data Review Recent Labs 02/12/152142 WBC 26.47* HGB 12.4 HCT 38.3 PLT 233 Recent Labs 02/12/152142 NA 136 K 4.4 CL 102 CO2 26 BUN 11 CREATININE 0.49* Recent Labs 02/12/152142 PROTIME 14.6* INR 1.3* PTT 30 Recent Labs 02/12/152142 TBIL 1.3 ALKPHOS 101 AST 34 ALT 18 LIPASE 52 ECG 02/12/2015 [facility]: rate ~125, sinus tachycardia, normal axis, narrow QRS, ST depressions in I, II, V3-V6 CT ABDOMEN/PELVIS 02/12/2015 1. There is cholelithiasis present. There is mild gallbladder wall thickening. Correlation with clinical findings and followup study may be useful. 2. No bowel obstruction or adynamic ileus. No evidence of appendicitis. There is moderate/large amount of fecal material in distal sigmoid colon possibly constipation. Correlation with clinical findings may be useful. IMPRESSION: Ms. Ginger Barrera is a 54 y.o. 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 Given that patient is a poor candidate, will pursue percutaneous drainage and management of sepsis. PROBLEMS: Principal Problem: Cholecystitis, acute Active Problems: History of seizures Right spastic hemiparesis Hypothyroidism ST segment depression Diabetes mellitus, type 2 History of cerebral infarction Primary central nervous system vasculitis PLAN: Acute Cholecystitis: Patient poor surgical candidate. IR notified and will pursue percutaneous cholecystostomy urgently tonight. Patient is unable to give informed consent given current mental status, however given sepsis and urgent need for intervention, will pursue procedure. Patient identified to other providers that she would want treatment. later contacted and notified of admission, and he agreed that patient would want treatment. - Urgent percutaneous cholecystostomy - Appreciate IR recs - Zosyn 4.5 mg IV q8h pending culture results - F/U blood cultures from [facility] - F/U drain cultures - Drain care- 10 cc sterile saline flush q8h - LR 500 mL x1, then 75mL/hr x2L - Change pain control to morphine 2-4 mg IV q4h PRN given somnolence on hydromorphone STOP ATTACHER Vasculitis, History of CVA, History of Seizure Disorder: Patient immunocompromised and thereforeat high risk for infection. - Continue home Sinemet, depakote - Continue home mycophenolate 100 mg daily, prednisone 2.5 mg daily - Monitor for signs of adrenal insufficiency given chronic prednisone use - Consider Rheumatology consult for management of immunosuppression in sepsis Chronic Martinez catheter: Per patient, changed last week. Per notes, patient recently treated for UTI.Will hold home cipro given current Zosyn administration. It is unclear if patient's symptoms were actually presentation of cholecystitis vs concominant UTI. - F/U outpatient urine culture - Zosyn as above - Martinez change every 4 weeks, last done last week - Catheter care per nursing ST Depressions: Without chest pain/pressure. Patient without known CAD but has many risk factors given DM2 and previous smoking history. Possible that depressions are rate-dependent. - Repeat ECG - Monitor for chest pain/pressure - Trend troponins if ST depressions persist - Consider outpatient stress test pending goals of care Type 2 Diabetes Mellitus: On insulin at &R. - Decrease home lantus from 20 units to 10 units - Reassess starting carbohydrate consistent diet in AM - FSBG q6h with SSI while NPO Hypothyroidism - Continue levothyroxine Bipolar disorder - Continue aripiprazole DVT Prophylaxis: enoxaparin SC and SCDs- patient high risk for DVTs Code status: Full Code Dispo: will require >2 midnight stay given sepsis and IV antibiotics, could likely return to [facility] once stabilized. Called , Laci Barrera, and updated him on patient's current status. . Lyssa Griggs MD Internal Medicine PGY-2 Pager #[phone] 02/12/2015 22:03 I saw and examined the patient 02/12/2015. I have discussed the case with Dr. Griggs and agree with the findings and plans documented above. Parag Sandoval MD, 02/13/2015, 7:40 Attending Physician Internal Medicine [facility] Hospitalist documented in this encounter Procedure Notes Keanu Benitez MD - 02/16/2015 1408 EDT IR Procedure Note Procedure: Cholecystostomy Tube Check Date Performed: 02/16/2015 Radiologist/Security Operations Center Analyst(s): Emmanuel MATT (Resident), Brandee MATT (Attending) Sedation/Anesthesia: none Time Out: A time-out was completed prior to procedure verifying correct patient, procedure, site, positioning, and special equipment if applicable. Estimated Blood Loss: Unless otherwise noted, there was no blood loss, specimens removed, cultures obtained, or drains retained. Specimens: none Fluoroscopy Time: 0.6 min Contrast Volume: 15cc Omnipaque 200 Complications: none Condition: stable Post Procedure Diagnosis: Acute cholecystitis Findings: Sucessful, uncomplicated evaluation of cholecystostomy tube, well positioned, gallbladder filled with stones, cystic duct remains occluded Recommendations: As per primary team. Keanu Benitez MD 02/16/2015 14:08 Jerson Pickering MD - 02/12/2015 5466 EDT IR Procedure Note Procedure: Percutaneous Cholecystostomy Date Performed: 02/12/2015 Radiologist/Security Operations Center Analyst(s): Joshua Rey MD / Joshua Khalil MD Pre Procedure Diagnosis: Acute cholecystitis Post Procedure Diagnosis: Acute cholecystitis Sedation/Anesthesia: Local analgesia was provided w/ 1% buffered lidocaine. Pain control was provided w/ fentanyl. A nurse monitored patient heart rate, blood pressure, respiratory rate and oxygenationthroughout the procedure. Time Out: A time-out was completed prior to procedure verifying correct patient, procedure, site, positioning, and special equipment if applicable. Specimens: 10 mL motor oil colored bile retained and submitted to laboratory. Fluoroscopy Time: 0.6 mins Contrast Volume: 5 cc Estimated Blood Loss: Minimal blood loss. Complications: No immediate complication was identified. Condition: Stable Findings: Pre-procedure US shows dilated gallbladder. An 18 gauge needle was advanced into the gallbladder under US guidance. A 0.038 wire was advanced into the gallbladder. The catheter was removed and the tract dilated. A 10 taiwanese pigtail catheter was advanced under fluoroscopy into the gallbladderand the pigtail portion was deployed and secured after removal of the guidewire. The pigtail catheter was anchored w/ a basilio disc and sutured to skin w/ (2) 2-0 prolene sutures. Recommendations: Tube flushes as ordered. Jerson Rey MD 02/12/2015 23:41 Jerson Rey MD #[id number] IR Fellow PGY6 documented in this encounter Consult Notes Nate Ortiz MD - 02/13/2015 1219 EDT Surgical Consult Admit Date: 02/12/2015 Date of Service: 02/13/2015 Hospital day: LOS: 1 day Chief Complaint: Acute cholecystitis HPI: Ms. Ginger Barrera is a 54 y.o. 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 She hadbeen started on ciprofloxacin for UTI. She has had no prior abdominal surgeries; her last bowel movement was 02/10. Since admission, she had a percutaneous cholecystostomy tube placed by interventional radiology on 02/12 and was started on piperacillin-tazobactam; she received multiple NS boluses for hypotension/tachycardia. Currently, she complains my belly hurts and localizes pain to her right upper quadrant, sarah und her drain site. She denies nausea and has been able to sleep with the pain; she also denies chest pain, shortness of breath, diarrhea or constipation, Review of Systems: Pertinent items are noted in Subjective/HPI Objective/Physical Exam: VS: BP 90/54 Pulse 100 Temp(Src) 36.7 ??C (98.1 ??F) (Tympanic) Resp 16 Ht 172.7 cm (68) Wt 81.5 kg (179 lb 10.8 oz) BMI 27.33 kg/m2 SpO2 96% Exam: General Appearance: alert, no distress Lung: clear to auscultation bilaterally Heart: regular rate and rhythm, S1, S2 normal, no murmur, click, rub or gallop Abdomen: soft, nondistended, tender to palpation in RUQ with referred pain from RLQ, without guarding or rebound tenderness Extremities: all extremities warm and well perfused Skin: Skin color, temperature, turgor normal. No rashes or lesions Incision(s)/Wound(s): drain in RUQ present, c/d/i with serosanguinous drainage Labs: Recent Labs 02/12/15 2143 02/13/15 0543 WBC 26.47* 20.27* HGB 12.4 11.0* HCT 38.3 33.2* MCV 87 87 PLT 233 188 Recent Labs 02/12/153 02/13/15 0543 NA 136 137 K 4.4 4.4 CL 102 104 CO2 26 27 BUN 11 14 CREATININE 0.49* 0.55 CALCGFR >60 >60 Assessment: 54 y.o. female with multiple comorbidities including DM2, prior CVA with residual hemiparesis and STOP ATTACHER vasculitis on immunosuppression, diagnosed with acute cholecystitis and with percutaneous cholecystostomy tube in place, consulted for consideration of interval cholecystectomy. Recommendations: Continue percutaneous cholecystostomy tube Medical management Not a surgical candidate Please call with any questions or concerns Chon Cabral MD 02/13/2015 12:[address] Ortiz who agrees with above. René Martino MD 02/14/2015 8:45 Attestation: I saw and examined the patient with the resident/fellow 02/14/2015. I agree with the findings and plan of care documented in the resident's/fellow's note. Ginger is a poor surgical candidate S/P IR cholecystostomy tube Sunday night for presumed acute cholecystitis WBC today 5K, Hct 26 Fluid from Gallbladder No polys and No bacteria on Gram Smear 02/13 Biliary tube with 725ml more bloody fluid IMP: ? If pt really had acute cholecystitis with no bacteria and no polys on IR samples GB fluid Plan Pt is a very poor operative candidate Would leave Karla-tube IF not bilious drainage - the concern for dislodgement of tube out of GB Will need a tube study in near future anyway to confirm proper placement of Drainage tube in GB and also to assess patency of cystic duct into duodenum to determine if Perc-Karla tube could be removed (if cystic duct open to duodenum there is no need to keep karla tube in for > 2 weeks) MD Nate Mijares MD 02/14/2015 9:44 documented in this encounter ED Notes Wisam Tovar RN - 02/12/20152145 EDT Blood drawn via saline lock per protocol, rainbow and pink tube(s) sent to lab per order. Dr. Sandoval at bedside to evaluate patient. edro Banks - 02/12/20152102 EDT TCALL: GINGER BARRERA 60. Referred to ED by [facility], accepted by Dr. Sandoval, for cholecystitis. 54YF PMHX DM, vasculitis, CVA with right hemiparesis now with RUQ pain. CT abdomen shows acute cholecystitis. WBC 28K. Coming for medicine admit with IR percutaneous drainage, cholecystotomy. Call takenby Dr. Day () Mehdi Day MD - 02/12/20152100 EDT DOS: 02/12/2015 Chief Complaint Patient presents with ??? Abdominal Pain See Tcall. Patient c/o 2 days of worsening RUQ pain and vomiting. Patient arrives to ED tearful with continued c/o 10/10 r sided abdominal pains and elevated HR 120s. 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 The patient is a 54 y.o. female who presents today with Abdominal Pain HPI Comments: I, Chance Johny Echavarria, am scribing for Mehdi Day MD while he/she is personally performing the service. Chance Mclcain [place] 02/12/2015 21:02 Ginger Barrera is a 54 y.o. female with a history of HTN, DM, vasculitis, obesity, chronic unrinary cath, chronic immunosuppressive therapy, and CVA, who presents to the ED via [facility] for acute cholecystitis. She presented to [facility] with 2 day hx of abdominal pain and vomiting. CT showed acute cholecystitis. The patient complains of RUQ abdominal pain. She denies diarrhea. The history is provided by the patient and medical records. No manager social services was used. Abdominal Pain Pain location: RUQ Progression: Worsening Relieved by: Nothing Worsened by: Nothing tried Ineffective treatments: None tried Associated symptoms: fever, nausea and vomiting Associated symptoms: no chest pain, no chills, no dysuria and no shortness of breath Review of Systems Constitutional: Positive for fever. Negative for chills. Eyes: Negative for visual disturbance. Respiratory: Negative for shortness of breath. Cardiovascular: Negative for chest pain. Gastrointestinal: Positive for nausea, vomiting, abdominal pain and abdominal distention. Genitourinary: Negative for dysuria. Musculoskeletal: Negative for back pain and neck stiffness. Skin: Negative for rash. Neurological: Positive for weakness ( chronic right hemiparesis). Negative for headaches. Psychiatric/Behavioral: Negative for confusion. All other systems reviewed and are negative. Past Medical History Diagnosis Date ??? HTN [...] not sure of what surgery was performed Allergies Allergen Reactions ??? Darvocet A500 [Propoxyphene N-Acetaminophen] Nausea And Vomiting ??? Methadone ??? Naproxen Does not work ??? Penicillins ??? Sulfa (Sulfonamide Antibiotics) ??? Tylox [Oxycodone-Acetaminophen] itching History Substance Use Topics ??? Smoking status: Former Smoker -- 0.50 packs/day for 40 years Types: Cigarettes Quit date: 11/29/2010 ??? Smokeless tobacco: Never Used ??? Alcohol Use: No Comment: History of EtOH abuse Family History Problem Relation Age of Onset ??? Kidney Disease Neg Hx ??? Stroke Mother ??? Alcohol Abuse Sister ??? Alcohol Abuse Brother ??? Alcohol Abuse Father Vital Signs Temp: 36.9 ??C (98.4 ??F) Temp src: Tympanic Pulse: 87 Heart Rate: 128 BPM Resp: 16 SpO2: 98 % BP: 91/50 mmHg BP Device: BP Machine Patient Position: Semi fowlers BP Cuff Location: Right arm O2 Flow Rate (L/min): 1 l/min O2 Device: Nasal cannula Physical Exam Constitutional: She appears well-nourished. She is not intubated. HENT: Head: Normocephalic and atraumatic. Dry oral mucosa. Eyes: Conjunctivae and EOM are normal. Pupils are equal, round, and reactive to light. No scleral icterus. Neck: Normal range of motion. Cardiovascular: Regular rhythm, S1 normal, S2 normal and normal heart sounds. Tachycardia present. Pulmonary/Chest: She is not intubated. No respiratory distress. Abdominal: She exhibits distension (Moderate distention.). There is tenderness (Diffuse tenderness, worse in RUQ.). No bowel sounds heard. Neurological: She is alert. Skin: Skin is warm. Radiology orders: IR PERC CHOLECYSTOTOSMY IR CHOLANGIOGRAM THRU TUBE RAD US ABDOMEN ONE ORGAN/QUADRANT Imaging Results None EKG 12-LEAD Preliminary Result Wave form only; Final to follow after physician interpretation. [facility] Test Date: 2015-02-13 Pat Name: GINGER BARRERA Department: [address] Room: SB467 Gender: F Service Electrician: [id number] : [id number] Requested By: MURALI EDWARDS Order Number: [id number] Reading MD: Procedures Lab Results COMPREHENSIVE METABOLIC PANEL (CMP) (Final result) Abnormal Component (Lab Inquiry) Collection Time Result Time Potassium Sodium Chloride CO2 Total Alkaline Phosphatase 02/12/15 21:43:00 02/12/15 22:12:54 4.4 136 102 26 101 Collection Time Result Time Bilirubin, Total AST ALT Albumin Total Protein 02/12/15 21:43:00 02/12/15 22:12:54 1.3 34 18 2.9 (L) 5.9 (L) Collection Time Result Time Creatinine GFR, Calculated BUN Calcium Calculated Calcium 02/12/15 21:43:00 02/12/15 22:12:54 0.49 (L) >60 11 9.3 10.8 (H) Collection Time Result Time Glucose, Serum Fasting? 02/12/15 21:43:00 02/12/15 22:12:54 148 (H) Unknown LACTIC ACID (Final result) Component (Lab Inquiry) Collection Time Result Time LACTATE 02/12/15 21:43:00 02/12/15 22:10:46 1.5 LIPASE (Final result) Component (Lab Inquiry) Collection Time Result Time LIPASE 02/12/15 21:43:00 02/12/15 22:12:54 52 HEMAGRAM AND DIFFERENTIAL (Final result) Abnormal Component (Lab Inquiry) Collection Time Result Time WBC RBC Hemoglobin HCT MCV 02/12/15 21:43:00 02/12/15 22:33:37 26.47 (H) 4.39 12.4 38.3 87 Collection Time Result Time MCH MCHC RDW-CV RDW-SD Anisocytosis 02/12/15 21:43:00 02/12/15 22:33:37 28.3 32.4 16.7 (H) 50.3 1+ Collection Time Result Time PLT MPV Neutrophils BANDS PCT Lymphocytes 02/12/15 21:43:00 02/12/15 22:33:37 233 7.8 90.0 (H) 1.0 7.0 (L) Collection Time Result Time Monocytes ABS Neutrophils ABS Bands ABS Lymphs ABS Monocytes 02/12/15 21:43:00 02/12/15 22:33:37 2.0 23.83 (H) 0.26 1.85 0.53 Collection Time Result Time TOXIC GRAN VACUOLATED Type of Diff: 02/12/15 21:43:00 02/12/15 22:33:37 Present Present Manual PROTIME (Final result) Abnormal Component (Lab Inquiry) Collection Time Result Time Pro Time I.N.R. 02/12/15 21:43:00 02/12/15 22:40:22 14.6 (H) 1.3 (H) Moderate Intensity Coumadin INR = 2.0-3.0 Adjustments in anticoagulant therapy dose should be based upon the INR and NOT the Pro Time. PTT (Final result) Component (Lab Inquiry) Collection Time Result Time PTT 02/12/15 21:43:00 02/12/15 22:40:23 30 Therapeutic Heparin range: 65-100 seconds TYPE AND SCREEN (Final result) Component (Lab Inquiry) Collection Time Result Time ABO Rh Factor Antibody Screen 02/12/15 21:15:00 02/12/15 22:45:05 A Positive Negative SPECIMEN EXPIRES 02/15/15 @ 23:59. ED Course: A medical screening exam was performed. The patient is a 54 y.o. female who presents to the ED via [facility] ED with acute cholecystitis in the setting of The patient was evaluated and the case was discussed with multiple chronic medical issues. Case is discussed with Dr. Parag Sandoval, as well as with radiology, and plan will be for patient to receive IR percutaneous cholecystotomy tonight with admission to the internal medicine service. Disposition: Admitted The patient's pain was managed to an adequate level weighing risk vs. benefit of further medications. Upon departure from the Emergency Department, the patient's pain was 0 on a zero to ten scale. Condition at departure from the Emergency Department: Serious. ED Current Prescriptions None MDM Number of Diagnoses or Management Options Diagnosis management comments: 5 Amount and/or Complexity of Data Reviewed Clinical lab tests: ordered and reviewed Tests in the radiology section of CPT??: reviewed Tests in the medicine section of CPT??: reviewed Decide to obtain previous medical records or to obtain history from someone other than the patient: yes Review and summarize past medical records: yes Discuss the patient with other providers: yes Independent visualization of images, tracings, or specimens: yes Final diagnoses: Cholecystitis, acute Diabetes mellitus, type 2 History of seizures DM (diabetes mellitus) Severe sepsis PCP: Lamberto Henderson MD This documentation is recorded by Chance Echavarria acting as Scribe under the direction and presence of Mehdi Day MD. Mehdi Day MD: I personally performed the services recorded by the scribe in my presence. I confirm the scribe's documentation has been reviewed by me to accurately and completely record my work,treatment, procedures, and medical decision making. 02/14/2015 22:43 No flowsheet data found. Pedro Hutchison - 02/12/20152050 EDT TCALL: GINGER BARRERA 60. Referred to ED by [facility] [place] [facility], accepted by Dr. Sandoval, for cholecystitis. No stones found, needs drain via IR. Hx CVA with right sided deficits, diabetes, decub ulcer with concern for sepsis. E=445f, WU=366/65, afebrile, SpO2=92%RA. Meds- Pip/Tazo. Patient has IV running LR at 100/hr. Referring nurse: Pastora, accepting nurse and report taken by XIOMARA Sierra () documented in this encounter Miscellaneous Notes Plan of Care - Lexy Irving, RN - 02/18/2015 1740 EDT Problem: Daily Care Plan Goals Goal: Care Plan Documentation Outcome: Ongoing 02/18/15 0800 Care Plan Focus Area of Focus Pain/ Comfort Goal This Shift Pt will report pain <5/10 Focus: Managed Pain Data: Pt with complaint of 8/10, located ABDOMEN (BILI DRAIN INSERTION SITE). Aggravated by movement/alleviated by pain medicine. See pain assessment for additional information. Action: Pt receiving PRN medications (see MAR). Provided the following non- pharmacologic interventions: gentle repositioning. Response: Pt reports good pain control with current regimen, none at rest a couple times today andfrequently 6/10. Will continue to monitor and adjust interventions as necessary. Lexy Fabian RN 02/18/2015 17:39 lan of Care - Carrie Mendenhall RN - 02/18/2015 0320 EDT Problem: Daily Care Plan Goals Goal: Care Plan Documentation 02/17/15 2100 Care Plan Focus Area of Focus Pain/ Comfort Goal This Shift patient will have lower pain level Data: patient rated abdominal pain @ 8/10 Action: patient medicated with prn pain med & repositioned q 2 for comfort Response: patient's pain level had gone down to 1/10 Carrie Mendenhall RN 02/18/2015 3:17 lan of Anu Ruvalcaba RN - 02/17/2015 0540 EDT Problem: PRESSURE ULCER PREVENTION Goal: Absence Of Pressure Ulcer Data: Pt w hx of sacral pressure ulcer (now healed). Incontinent of loose stool x1 overnight. Martinez in place. Action: Turned pt Q2 hrs to prevent skin breakdown. Pericare as needed. Response: Pt appears to be resting comfortably. No signs of skin breakdown. Continue to assess and monitor. Anu Torres RN 02/17/2015 5:38 lan of Care - Ramya Corea - 02/16/2015 2207 EDT Problem: Daily Care Plan Goals Goal: Care Plan Documentation Outcome: Ongoing 02/16/152099 Care Plan Focus Area of Focus Skin Integrity Goal This Shift reposition every 2 hours. SB465/01 Ginger Barrera 54 y.o. female Length of Stay: 5 day(s) Admitted: 02/12/2015 22:25 Service: [facility] Inpatient Services Code Status: Full Code 22:04-- Data: patient is at risk for skin breakdown related to be immobilized. Patient also has a issues with incontinences. Action: reposition every two hours and change for incontinences. Response: patient has tolerated being repositioned every two hours without any distress. Patient skin is intact. Will continue to monitor. Ramya Corea RN 22:04 02/16/2015 lan of Leonel Agrawal RN - 02/16/2015 1935 EDT Focus: Constipation D: Pt noted with unknown duration of constipation. Pt not a reliable historian. BS hypo active. Abdomen distended, soft. Pt denies N/V. A: Pt given PRN dulcolax suppository (See MAR). Pt assisted to increase PO fluid intake by nursing staff as pt requires full assistance to eat. Patient educated on dietary options. R: Constipation resolved see flow sheet and continue to monitor. Leonel Chung RN 02/16/2015 19:35 lan of Fransisca yWatt RN - 02/16/2015 0444 EDT Problem: Daily Care Plan Goals Goal: Care Plan Documentation Outcome: Ongoing 02/15/15 2100 Care Plan Focus Area of Focus Pain/ Comfort Goal This Shift Pt will rate pain at bili tube site at <7 Data: Assumed care at 1900. Pt alert and oriented, and although speech difficult to understand, pt is able to make needs known. Chief complaint is 7/10 pain in RUQ at site of bili tube. Dressing is CDI, tube is draining open to gravity. Abdomen is tender to palpation. Pt was given 6 mg prn morphine at18:30 by day shift RN with good effect. Action: Admin prn 6 mg morphine at 00:30. Repositioning. Hourly checks. Response: Pt reports relief with prn morphine. Appears to be resting comfortably throughout shift. Fransisca Cabezas RN 02/16/2015 4:35 lan of Care - Mone Chauhan RN - 02/15/2015 0645 EDT Data: Patient's BP 78/48 this AM. FSBG 89. Patient reports some lightheadedness. Action: Dr. See notified. Awaiting orders. Response: Continue to monitor. Mone Chauhan RN 02/15/2015 6:45 lan of Andry Louise RN - 02/15/2015 0312 EDT Problem: PRESSURE ULCER PREVENTION Goal: Absence Of Pressure Ulcer Focus: Pressure Ulcer Prevention/Treatment Data: Patient presents with skin fully intact or breakdown. Pt has impaired mobility secondary to right sided hemiparesis. Pt has chronic martinez. Martinez discovered to be leaking; pt not aware of moisturein the bed. Martinez was not kinked or twisted. Action: Patient was turned in bed every 2 hours. Martinez flushed, skin cleansed, bed pad/gown changed. Response: Patient???s skin remains fully intact. Monitor martinez carefully for further leaking, consider replacement if leaking continues. Andry Torres RN 02/15/2015 3:09 lan of Dary Sullivan RN - 02/14/2015 1801 EDT Problem: GLYCEMIA IMBALANCE Goal: Clinical Indication Of Glycemia Balance Is Achieved Outcome: Ongoing Data: Patient was found to be hypoglycemic at 1212. FS = 60. Action: Patient was given a total of 8 oz of OJ ( in 4 oz increments) to bring FS up to 77. Response: Consider adjusting lantus dose. Dary Faye RN 02/14/2015 17:56 lan of Dary Sullivan RN - 02/14/2015 1742 EDT Critical Value Data: FSBG 60 mg/dl @ 1212 /MAIA Edwards notified @ 1220 regarding glucose critical value. Action: Abnormal Glucose Treatment: 120 ml of Juice Given Rechecked FSBG in 15 minutes, FS = 67 ay 1237, 4 oz juice given. Rechecked FSBG in 15 minutes, FS = 77 ay 1300. Patient given 4 oz of ice creamin lieu of a meal as patient had to leave floor for a test . Response: Patient off floor for 1 hour. Rechecked upon return to floor at 1411, FS =140. D5 added topatient's IVF. Continue to monitor. Dary Faye RN 02/14/2015 17:45 lan of Stephanie - Anu Torres RN - 02/14/2015 0420 EDT Problem: PRESSURE ULCER PREVENTION Goal: Absence Of Pressure Ulcer Data: Pt found soaked in urine ~2300. [address] but kinked. Pt did not make nursing staff awarethat she was wet. Action: Complete bed change and pericare performed. Manipulated martinez so catheter was straight. Urine in tube. Turning pt Q2-Q4 hours. Response: Martinez appears to be draining well at this time. Pt appears to be comfortable. Continue to assess and monitor. Anu Torres RN 02/14/2015 4:15 lan of Stephanie - Dary Faye RN - 02/13/2015 1940 EDT Problem: Daily Care Plan Goals Goal: Care Plan Documentation Outcome: Ongoing 02/13/15 0835 Care Plan Focus Area of Focus Pain/ Comfort Goal This Shift Patient will rate pain less than 9/10 this shift Focus: Managed Pain Data: Pt with complaint of 9/10, located right upper abdomen. See pain assessment for additional information. Action: Pt receiving PRN medications (see MAR). Provided the following non- pharmacologic interventions: repositioning. Response: Patient continues to rate pain 8-9/10. Often falls asleep after receiving IV morphine. States the morphine is working well for her. Continue with current regimen. Will continue to monitor andadjust interventions as necessary. Dary Faye RN 02/13/2015 19:38 documented in this encounter Plan of Treatment Upcoming Encounters Date Type Specialty Care Team Description 06/13/2022 Appointment Radiology 06/13/2022 Office Visit Urology Reji Foster MD [address] [facility], [facility], Level [address] [place] [address] [phone] (Wo rk) Scheduled Referrals Name Type Priority Associated Order Schedule Diagnoses PROVIDER FOLLOW-UP Outpatient Referral Routine Or dered: INSTRUCTIONS 02/18/2015 PROVIDER FOLLOW-UP Outpatient Referral Routine Or dered: INSTRUCTIONS 02/18/2015 AMB CONS/FOLLOW UP Outpatient Referral Routine Cholecystitis, Ordered: GENERAL SURGERY acute 02/18/2015 AMB CONS/FOLLOW UP Outpatient Referral Routine Cholecystitis, Ordered: PRIMARY CARE acute 02/18/2015 PHYSICIAN Diabetes mellitus, type 2 ([facility]) documented as of this encounter Procedures Procedure Name Priority Date/Time Associated Comments Diagnosis ECG REPORT - SCANNED 02/22/2015 10:27 EDT GLUCOSE, GLUCOMETER Routine 02/18/2015 16:59 Resu lts for this EDT procedure are i n the results section. GLUCOSE, GLUCOMETER Routine 02/18/2015 11:47 Resu lts for this EDT procedure are i n the results section. GLUCOSE, GLUCOMETER Routine 02/18/2015 7:23 Resul ts for this EDT procedure are i n the results section. GLUCOSE, GLUCOMETER Routine 02/18/2015 0:02 Resul ts for this EDT procedure are i n the results section. GLUCOSE, GLUCOMETER Routine 02/17/2015 20:40 Resu lts for this EDT procedure are i n the results section. GLUCOSE, GLUCOMETER Routine 02/17/2015 17:39 Resu lts for this EDT procedure are i n the results section. ACTH, PLASMA Routine 02/17/2015 13:06 Results for this EDT procedure are i n the results section. ALDOSTERONE, SERUM Routine 02/17/2015 13:06 Resul ts for this EDT procedure are i n the results section. RENIN ACTIVITY, PLASMA Routine 02/17/2015 13:06 R esults for this EDT procedure are i n the results section. GLUCOSE, GLUCOMETER Routine 02/17/2015 11:44 Resu lts for this EDT procedure are i n the results section. COMPLETE BLOOD COUNT AND Routine 02/17/2015 8:44 Results for this DIFFERENTIAL EDT procedure are i n the results section. GLUCOSE, GLUCOMETER Routine 02/17/2015 7:24 Resul ts for this EDT procedure are i n the results section. GLUCOSE, GLUCOMETER Routine 02/16/2015 20:48 Resu lts for this EDT procedure are i n the results section. GLUCOSE, GLUCOMETER Routine 02/16/2015 16:55 Resu lts for this EDT procedure are i n the results section. IR CHOLANGIOGRAM THRU Routine 02/16/2015 14:15 Re sults for this TUBE EDT procedure are i n the results section. GLUCOSE, GLUCOMETER Routine 02/16/2015 11:21 Resu lts for this EDT procedure are i n the results section. GLUCOSE, GLUCOMETER Routine 02/16/2015 6:20 Resul ts for this EDT procedure are i n the results section. ELECTROLYTES Routine 02/16/2015 5:29 Results for this EDT procedure are i n the results section. GLUCOSE, GLUCOMETER Routine 02/16/2015 0:27 Resul ts for this EDT procedure are i n the results section. GLUCOSE, GLUCOMETER Routine 02/15/2015 17:20 Resu lts for this EDT procedure are i n the results section. GLUCOSE, GLUCOMETER Routine 02/15/2015 14:18 Resu lts for this EDT procedure are i n the results section. GLUCOSE, GLUCOMETER Routine 02/15/2015 12:10 Resu lts for this EDT procedure are i n the results section. ELECTROLYTES Routine 02/15/2015 10:24 Results for this EDT procedure are i n the results section. INPATIENT ADD-ON Routine 02/15/2015 9:20 Results for this EDT procedure are i n the results section. COMPLETE BLOOD COUNT AND Routine 02/15/2015 7:54 Results for this DIFFERENTIAL EDT procedure are i n the results section. GLUCOSE, GLUCOMETER Routine 02/15/2015 7:24 Resul ts for this EDT procedure are i n the results section. GLUCOSE, GLUCOMETER Routine 02/15/2015 6:42 Resul ts for this EDT procedure are i n the results section. GLUCOSE, GLUCOMETER Routine 02/14/2015 22:06 Resu lts for this EDT procedure are i n the results section. GLUCOSE, GLUCOMETER Routine 02/14/2015 17:19 Resu lts for this EDT procedure are i n the results section. GLUCOSE, GLUCOMETER Routine 02/14/2015 14:11 Resu lts for this EDT procedure are i n the results section. RAD US ABDOMEN ONE Routine 02/14/2015 13:39 Resul ts for this ORGAN/QUADRANT EDT procedure are in the results section. GLUCOSE, GLUCOMETER Routine 02/14/2015 13:00 Resu lts for this EDT procedure are i n the results section. GLUCOSE, GLUCOMETER Routine 02/14/2015 12:37 Resu lts for this EDT procedure are i n the results section. THYROID CASCADE Routine 02/14/2015 12:20 Results for this EDT procedure are i n the results section. LDH Routine 02/14/2015 12:20 Results for this EDT procedure are i n the results section. GLUCOSE, GLUCOMETER Routine 02/14/2015 12:12 Resu lts for this EDT procedure are i n the results section. INPATIENT ADD-ON Routine 02/14/2015 11:25 Results for this EDT procedure are i n the results section. INPATIENT ADD-ON Routine 02/14/2015 11:20 Results for this EDT procedure are i n the results section. RETICULOCYTE COUNT Routine 02/14/2015 7:52 Result s for this EDT procedure are i n the results section. COMPLETE BLOOD COUNT AND Routine 02/14/2015 7:52 Results for this DIFFERENTIAL EDT procedure are i n the results section. GLUCOSE, GLUCOMETER Routine 02/14/2015 7:03 Resul ts for this EDT procedure are i n the results section. GLUCOSE, GLUCOMETER Routine 02/14/2015 6:17 Resul ts for this EDT procedure are i n the results section. GLUCOSE, GLUCOMETER Routine 02/14/2015 0:03 Resul ts for this EDT procedure are i n the results section. GLUCOSE, GLUCOMETER Routine 02/13/2015 18:28 Resu lts for this EDT procedure are i n the results section. GLUCOSE, GLUCOMETER Routine 02/13/2015 11:58 Resu lts for this EDT procedure are i n the results section. GLUCOSE, GLUCOMETER Routine 02/13/2015 7:07 Resul ts for this EDT procedure are i n the results section. COMPLETE BLOOD COUNT AND Routine 02/13/2015 5:43 Results for this DIFFERENTIAL EDT procedure are i n the results section. BUN Routine 02/13/2015 5:43 Results for this EDT procedure are i n the results section. ALT Routine 02/13/2015 5:43 Results for this EDT procedure are i n the results section. AST Routine 02/13/2015 5:43 Results for this EDT procedure are i n the results section. ALKALINE PHOSPHATASE Routine 02/13/2015 5:43 Resu lts for this EDT procedure are i n the results section. HAPTOGLOBIN Routine 02/13/2015 5:43 Results for this EDT procedure are i n the results section. CREATININE Routine 02/13/2015 5:43 Results for this EDT procedure are i n the results section. BILIRUBIN, TOTAL Routine 02/13/2015 5:43 Results for this EDT procedure are i n the results section. ELECTROLYTES Routine 02/13/2015 5:43 Results for this EDT procedure are i n the results section. EKG 12-LEAD STAT 02/13/2015 3:12 Results for this EDT procedure are i n the results section. GLUCOSE, GLUCOMETER Routine 02/13/2015 0:16 Resul ts for this EDT procedure are i n the results section. IR PERC CHOLECYSTOTOSMY Routine 02/12/2015 23:50 Results for this EDT procedure are i n the results section. BACTERIAL CULTURE/SMEAR, Routine 02/12/2015 23:10 Results for this FLUID EDT procedure are i n the results section. LACTIC ACID STAT 02/12/2015 21:43 Results for this EDT procedure are i n the results section. PTT STAT 02/12/2015 21:43 Results for this EDT procedure are i n the results section. PROTIME STAT 02/12/2015 21:43 Results for this EDT procedure are i n the results section. COMPLETE BLOOD COUNT AND STAT 02/12/2015 21:43 Results for this DIFFERENTIAL EDT procedure are i n the results section. LIPASE STAT 02/12/2015 21:43 Results for this EDT procedure are i n the results section. COMPREHENSIVE METABOLIC STAT 02/12/2015 21:43 Results for this PANEL (CMP) EDT procedure are i n the results section. TYPE AND SCREEN STAT 02/12/2015 21:15 Results for this EDT procedure are i n the results section. documented in this encounter Results (ABNORMAL) GLUCOSE, GLUCOMETER (02/18/2015 16:59 EDT) Glucose, 160 (H) 70 - 100 [facility] Fingerstick mg/dl LABORATORY SERVICES Furniture Upholsterer ID [id number]: [facility] Test Performed by LABORATORY Nursing Services SERVICES Specimen Blood Performing Organization Address City/State/ZIP Code Phon e Number [facility] [address] [place] [address] SERVICES (ABNORMAL) GLUCOSE, GLUCOMETER (02/18/2015 11:47 EDT) Glucose, 174 (H) 70 - 100 [facility] Fingerstick mg/dl LABORATORY SERVICES Furniture Upholsterer [place] [id number]: [facility] Test Performed by LABORATORY Nursing Services SERVICES Specimen Blood Performing Organization Address City/State/ZIP Code Phon e Number [facility] [address] [place] [address] SERVICES (ABNORMAL) GLUCOSE, GLUCOMETER (02/18/2015 7:23 EDT) Glucose, 137 (H) 70 - 100 [facility] Fingerstick mg/dl LABORATORY SERVICES Furniture Upholsterer [place] [id number]: [facility] Test Performed by LABORATORY Nursing Services SERVICES Specimen Blood Performing Organization Address City/[facility]/ZIP Code Phon e Number [facility] [address] [place] [address] SERVICES (ABNORMAL) GLUCOSE, GLUCOMETER (02/18/2015 0:02 EDT) Glucose, 180 (H) 70 - 100 [facility] Fingerstick mg/dl LABORATORY SERVICES Furniture Upholsterer ID [id number]: [facility] Test Performed by LABORATORY Nursing Services SERVICES Specimen Blood Performing Organization Address City/State/ZIP Code Phon e Number [facility] [address] [place] [address] SERVICES (ABNORMAL) GLUCOSE, GLUCOMETER (02/17/2015 20:40 EDT) Glucose, 251 (H) 70 - 100 [facility] Fingerstick mg/dl LABORATORY SERVICES Furniture Upholsterer ID [id number]: [facility] Test Performed by LABORATORY Nursing Services SERVICES Specimen Blood Performing Organization Address City/[facility]/ZIP Code Phon e Number [facility] [address] [place] [address] SERVICES (ABNORMAL) GLUCOSE, GLUCOMETER (02/17/2015 17:39 EDT) Glucose, 215 (H) 70 - 100 [facility] Fingerstick mg/dl LABORATORY SERVICES Furniture Upholsterer [place] [id number]: [facility] Test Performed by LABORATORY Nursing Services SERVICES Specimen Blood Performing Organization Address City/State/ZIP Code Phon e Number [facility] [address] [place] [address] SERVICES RENIN ACTIVITY, PLASMA (02/17/2015 13:06 EDT) Renin Activity, <0.6 ng/mL/h [facility] Plasma Comment: LABORATORY SERVICES (Note) REFERENCE VALUE ------ (Peripheral vein specimen) Na-deplete, upright: Mean: 5.9 Range: 2.9-10.8 Na-replete, upright: Mean: 1.0 Range: <=0.6-3.0 Performed or Referred by: [facility] Labs: [facility], [address] [place] [address], Lab Dir: Familia Barroso III, MD Specimen Blood specimen (specimen) - Blood Performing Organization Address [facility] e Number [facility] [address] [place] [address] SERVICES ALDOSTERONE, SERUM (02/17/2015 13:06 EDT) [facility] Aldosterone, Serum <4.0 <=21 ng/dL [facility] Comment: LABORATORY (Note) SERVICES ADDITIONAL INFORMATION ------ Reference range for patients 11 years and older is bas ed on upright A.M. collection from subjects without sodium restrictions. Performed or Referred by: [facility] Labs: [facility], [address] [place] [address], Lab Dir: Familia Barroso III, MD Specimen Blood specimen (specimen) - Blood Performing Organization Address [facility] e Number [facility] [address] [place] [address] SERVICES (ABNORMAL) ACTH, PLASMA (02/17/2015 13:06 EDT) [facility] Adrenocorticotropic <5.0 (L) pg/mL [facility] MED[facility] Hormone, P Comment: CENTER (Note) LABORATORY REFERENCE VALUE ------ SERVICES 10-60 (a.m. collection) Performed by: [facility], [address] [facility], [place] [address], [employer] Instructor: Lesa Feng, Ph.D. Specimen Blood specimen (specimen) - Blood Performing Organization Address City/[facility]/ZIP Code Phon e Number [facility] [address] [place] [address] SERVICES (ABNORMAL) GLUCOSE, GLUCOMETER (02/17/2015 11:44 EDT) Glucose, 172 (H) 70 - 100 [facility] Fingerstick mg/dl LABORATORY SERVICES Furniture Upholsterer ID [id number]: [facility] Test Performed by LABORATORY Nursing Services SERVICES Specimen Blood Performing Organization Address City/State/ZIP Code Phon e Number [facility] [address] [place] [address] SERVICES (ABNORMAL) HEMAGRAM AND DIFFERENTIAL (02/17/2015 8:44 EDT) Pathologist Sig nature WBC 4.52 4.0 - 12.4 K/cmm [facility] LABORATORY SERVICES RBC 3.83 (L) 3.86 - 5.04 [facility] M/[facility] LABORATORY SERVICES Hemoglobin 11.1 (L) 11.6 - 15.2 [facility] gm/dl LABORATORY SERVICES HCT 33.0 (L) 34.9 - 44.4 % [facility] LABORATORY SERVICES MCV 86 81 - 98 fl [facility] LABORATORY SERVICES MCH 28.9 26.7 - 33.3 pg [facility] LABORATORY SERVICES MCHC 33.6 32.1 - 35.9 [facility] gm/dl LABORATORY SERVICES RDW-CV 15.3 (H) 11.7 - 14.6 % [facility] LABORATORY SERVICES RDW-SD 45.9 37.6 - 50.3 fl [facility] LABORATORY SERVICES PLT 190 141 - 320 [facility] MPV 7.0 (L) 7.5 - 11.2 fl [facility] LABORATORY SERVICES Neutrophils 60.2 45.5 - 79.7 % [facility] LABORATORY SERVICES Lymphocytes 33.9 15.0 - 46.8 % [facility] LABORATORY SERVICES Monocytes 5.7 1.8 - 12.0 % [facility] LABORATORY SERVICES Eosinophils 0.0 (L) 0.6 - 6.9 % [facility] LABORATORY SERVICES Basophils 0.2 0.2 - 1.4 % [facility] LABORATORY SERVICES ABS Neutrophils 2.72 2.20 - 8.85 [facility] K/cm LABORATORY SERVICES ABS Lymphs 1.53 1.09 - 3.30 [facility] K/[facility] LABORATORY SERVICES ABS Monocytes 0.26 0.1 - 0.8 K/cmm [facility] LABORATORY SERVICES ABS Eosinophils 0.00 (L) 0.03 - 0.61 [facility] K/[facility] LABORATORY SERVICES ABS Basophils 0.01 0.01 - 0.11 [facility] K/[facility] LABORATORY SERVICES Type of Diff: Automated [facility] LABORATORY SERVICES Specimen Blood specimen (specimen) - Blood Performing Organization Address [facility]/ZIP Code Phon e Number [facility] [address] [place] [address] SERVICES (ABNORMAL) GLUCOSE, GLUCOMETER (02/17/2015 7:24 EDT) Glucose, 130 (H) 70 - 100 [facility] Fingerstick mg/dl LABORATORY SERVICES Furniture Upholsterer ID [id number]: [facility] Test Performed by LABORATORY Nursing Services SERVICES Specimen Blood Performing Organization Address City/[facility]/ZIP Code Phon e Number [facility] [address] [place] [address] SERVICES (ABNORMAL) GLUCOSE, GLUCOMETER (02/16/2015 20:48 EDT) Glucose, 156 (H) 70 - 100 [facility] Fingerstick mg/dl LABORATORY SERVICES Furniture Upholsterer ID [id number]: [facility] Test Performed by LABORATORY Nursing Services SERVICES Specimen Blood Performing Organization Address City/[facility]/ZIP Code Phon e Number [facility] [address] [place] [address] SERVICES (ABNORMAL) GLUCOSE, GLUCOMETER (02/16/2015 16:55 EDT) Glucose, 191 (H) 70 - 100 [facility] Fingerstick mg/dl LABORATORY SERVICES Furniture Upholsterer ID [id number]: [facility] Test Performed by LABORATORY Nursing Services SERVICES Specimen Blood Performing Organization Address City/[facility]/[place] [facility] [place] [facility] [address] [place] [address] SERVICES IR CHOLANGIOGRAM THRU TUBE (02/16/2015 14:15 EDT) Anatomical Region Laterality Modality Other Specimen Narrative [facility] - 02/19/2015 13:43 EDT IR CHOLANGIOGRAM THRU TUBE ??02/16/2015 5:19 PM Signs and Symptoms: ??Check for patency of cystic duct into duodenum Comparison: Right upper quadrant ultraso und 02/14/2015 and placement images 02/12/2015 Findings: Initial music artist image shows the cholecysto stomy tube to be in the right upper quadrant, slightly withdrawn from its position on the comparison placement images. Injection o f the tube shows teixeira flow of contrast material into the gallbladde r. The gallbladder is filled with stones. There is no flow of contras t into the cystic duct. Approximately 15 cc of Omnipaque 200 wer e instilled into the collection. Approximately the same volum e was aspirated post procedure. Following aspiration, bag drainage was u nclamped. The patient tolerated procedure well and without immediate complication. Dr. Irvin was present for and supervis ed the entire procedure. Impression: Successful, uncomplicated cystogram thro ugh pre-existing cholecystostomy tube. The gallbladder is filled with stones. The cystic duct does not opacify. I have personally reviewed the images an d the above interpretation and agree with the findings. Procedure Note Rock Irvin MD - 02/19/2015 IR CHOLANGIOGRAM THRU TUBE 02/16/2015 5:1 9 PM Signs and Symptoms: Check for patency of cystic duct into duodenum Comparison: Right upper quadrant ultraso und 02/14/2015 and placement images 02/12/2015 Findings: Initial music artist image shows the cholecysto stomy tube to be in the right upper quadrant, slightly withdrawn from its position on the comparison placement images. Injection o f the tube shows teixeira flow of contrast material into the gallbladde r. The gallbladder is filled with stones. There is no flow of contras t into the cystic duct. Approximately 15 cc of Omnipaque 200 wer e instilled into the collection. Approximately the same volum e was aspirated post procedure. Following aspiration, bag drainage was u nclamped. The patient tolerated procedure well and without immediate complication. Dr. Irvin was present for and supervis ed the entire procedure. Impression: Successful, uncomplicated cystogram thro ugh pre-existing cholecystostomy tube. The gallbladder is filled with stones. The cystic duct does not opacify. I have personally reviewed the images an d the above interpretation and agree with the findings. Performing Organization Address City/State/ZIP Code Phon e Number [facility] (ABNORMAL) GLUCOSE, GLUCOMETER (02/16/2015 11:21 EDT) Glucose, 152 (H) 70 - 100 [facility] Fingerstick mg/dl LABORATORY SERVICES Furniture Upholsterer [place] [id number]: [facility] Test Performed by LABORATORY Nursing Services SERVICES Specimen Blood Performing Organization Address City/[facility]/ZIP Code Phon e Number [facility] [address] [place] [address] SERVICES (ABNORMAL) GLUCOSE, GLUCOMETER (02/16/2015 6:20 EDT) Glucose, 131 (H) 70 - 100 [facility] Fingerstick mg/dl LABORATORY SERVICES Furniture Upholsterer [place] [id number]: [facility] Test Performed by LABORATORY Nursing Services SERVICES Specimen Blood Performing Organization Address City/[facility]/ZIP Code Phon e Number [facility] [address] [place] [address] SERVICES ELECTROLYTES (02/16/2015 5:29 EDT) Pathologist Sig nature Sodium 145Comment: Slight 136 - 145 mEq/L [facility] hemolysis LABORATORY SERVICES Potassium 4.3 3.5 - 5.0 mEq/L [facility] Comment: LABORATORY SERVICES Slight hemolysis Hemolysis may elevate potassium result. Chloride 107Comment: Slight 96 - 110 mEq/L [facility] hemolysis LABORATORY SERVICES CO2 29Comment: Slight 24 - 32 mEq/L [facility] hemolysis LABORATORY SERVICES Specimen Blood specimen (specimen) - Blood Performing Organization Address City/[facility]/ZIP Code Phon e Number [facility] [address] [place] [address] SERVICES (ABNORMAL) GLUCOSE, GLUCOMETER (02/16/2015 0:27 EDT) Glucose, 140 (H) 70 - 100 [facility] Fingerstick mg/dl LABORATORY SERVICES Furniture Upholste[employer] [place] [id number]: [facility] Test Performed by LABORATORY Nursing Services SERVICES Specimen Blood Performing Organization Address City/State/ZIP Code Phon e Number [facility] [address] [place] [address] SERVICES (ABNORMAL) GLUCOSE, GLUCOMETER (02/15/2015 17:20 EDT) Glucose, 173 (H) 70 - 100 [facility] Fingerstick mg/dl LABORATORY SERVICES Furniture Upholsterer [place] [id number]: [facility] Test Performed by LABORATORY Nursing Services SERVICES Specimen Blood Performing Organization Address City/[facility]/ZIP Code Phon e Number [facility] [address] [place] [address] SERVICES (ABNORMAL) GLUCOSE, GLUCOMETER (02/15/2015 14:18 EDT) Glucose, 225 (H) 70 - 100 [facility] Fingerstick mg/dl LABORATORY SERVICES Furniture Upholsterer [place] [id number]: [facility] Test Performed by LABORATORY Nursing Services SERVICES Specimen Blood Performing Organization Address City/[facility]/ZIP Code Phon e Number [facility] [address] [place] [address] SERVICES (ABNORMAL) GLUCOSE, GLUCOMETER (02/15/2015 12:10 EDT) Glucose, 168 (H) 70 - 100 [facility] Fingerstick mg/dl LABORATORY SERVICES Furniture Upholsterer [place] [id number]: [facility] Test Performed by LABORATORY Nursing Services SERVICES Specimen Blood Performing Organization Address [facility] Code Phon e Number [facility] [address] [place] [address] SERVICES ELECTROLYTES (02/15/2015 10:24 EDT) Pathologist Sig nature Sodium 139 136 - 145 mEq/L [facility] LABORA TORY SERVICES Potassium 4.4 3.5 - 5.0 mEq/L [facility] LABORA TORY SERVICES Chloride 106 96 - 110 mEq/L [facility] LABORAT ORY SERVICES CO2 28 24 - 32 mEq/L [facility] LABORATO RY SERVICES Specimen Blood specimen (specimen) - Blood Performing Organization Address [facility] Phon e Number [facility] [address] [place] [address] SERVICES INPATIENT ADD-ON (02/15/2015 9:20 EDT) Tests to be added THYROID CASCADE [facility] LABORATORY SERVICES Number for problems [id number] [facility] LABORATORY SERVICES Accession number TTC TO [id number], OK [facility] PER LABORATORY SERVICES [email or web address] TO USE SAMPLE FROM 5.24 FOR TESTING [id number]@926 LMT Specimen Other Performing Organization Address City/[facility]/ZIP Code Phon e Number [facility] [address] [place] [address] SERVICES (ABNORMAL) HEMAGRAM AND DIFFERENTIAL (02/15/2015 7:54 EDT) Pathologist Sig nature WBC 3.59 (L) 4.0 - 12.4 K/cmm [facility] LABORATORY SERVICES RBC 3.13 (L) 3.86 - 5.04 M/cmm [facility] LABORATORY SERVICES Hemoglobin 9.1 (L) 11.6 - 15.2 gm/dl [facility] LABORATORY SERVICES HCT 27.5 (L) 34.9 - 44.4 % [facility] LABORATORY SERVICES MCV 88 81 - 98 fl [facility] LABORATORY SERVICES MCH 29.1 26.7 - 33.3 pg [facility] LABORATORY SERVICES MCHC 33.2 32.1 - 35.9 gm/dl [facility] LABORATORY SERVICES RDW-CV 16.0 (H) 11.7 - 14.6 % [facility] LABORATORY SERVICES RDW-SD 49.9 37.6 - 50.3 fl [facility] LABORATORY SERVICES PLT 170 141 - 320 K/cmm [facility] LABORATORY SERVICES MPV 7.2 (L) 7.5 - 11.2 fl [facility] LABORATORY SERVICES Neutrophils 38.0 (L) 45.5 - 79.7 % [facility] LABORATORY SERVICES Lymphocytes 55.0 (H) 15.0 - 46.8 % [facility] LABORATORY SERVICES Atyp Lymphs 1.0 % [facility] LABORATORY SERVICES Monocytes 4.0 1.8 - 12.0 % [facility] LABORATORY SERVICES Eosinophils 2.0 0.6 - 6.9 % [facility] LABORATORY SERVICES ABS Neutrophils 1.36 (L) 2.20 - 8.85 K/cmm [facility] LABORATORY SERVICES ABS Lymphs 1.98 1.09 - 3.30 K/cmm [facility] LABORATORY SERVICES ABS Atyp Lymphs 0.04 K/cmm [facility] LABORATORY SERVICES ABS Monocytes 0.14 0.1 - 0.8 K/cmm [facility] LABORATORY SERVICES ABS Eosinophils 0.07 0.03 - 0.61 K/cmm [facility] LABORATORY SERVICES Vacuolization Present [facility] LAB[facility]ORY SERVICES Type of Diff: Manual [facility] LABORATORY SERVICES Specimen Blood specimen (specimen) - Blood Performing Organization Address City/State/ZIP Code Phon e Number [facility] [address] [place] [address] SERVICES (ABNORMAL) GLUCOSE, GLUCOMETER (02/15/2015 7:24 EDT) Glucose, 112 (H) 70 - 100 [facility] Fingerstick mg/dl LABORATORY SERVICES Furniture Upholsterer ID [id number]: [facility] Test Performed by LABORATORY Nursing Services SERVICES Specimen Blood Performing Organization Address City/State/ZIP Code Phon e Number [facility] [address] [place] [address] SERVICES GLUCOSE, GLUCOMETER (02/15/2015 6:42 EDT) Glucose, 87 70 - 100 [facility] Fingerstick mg/dl LABORATORY SERVICES Furniture Upholsterer [place] [id number]: [facility] Test Performed by LABORATORY Nursing Services SERVICES Specimen Blood Performing Organization Address City/[facility]/ZIP Code Phon e Number [facility] [address] [place] [address] SERVICES (ABNORMAL) GLUCOSE, GLUCOMETER (02/14/2015 22:06 EDT) Glucose, 137 (H) 70 - 100 [facility] Fingerstick mg/dl LABORATORY SERVICES Furniture Upholsterer ID [id number]: [facility] Test Performed by LABORATORY Nursing Services SERVICES Specimen Blood Performing Organization Address City/State/ZIP Code Phon e Number [facility] [address] [place] [address] SERVICES (ABNORMAL) GLUCOSE, GLUCOMETER (02/14/2015 17:19 EDT) Glucose, 103 (H) 70 - 100 [facility] Fingerstick mg/dl LABORATORY SERVICES Furniture Upholsterer [place] [id number]: [facility] Test Performed by LABORATORY Nursing Services SERVICES Specimen Blood Performing Organization Address City/State/ZIP Code Phon e Number [facility] [address] [place] [address] SERVICES (ABNORMAL) GLUCOSE, GLUCOMETER (02/14/2015 14:11 EDT) Glucose, 140 (H) 70 - 100 [facility] Fingerstick mg/dl LABORATORY SERVICES Furniture Upholsterer ID [id number]: [facility] Test Performed by LABORATORY Nursing Services SERVICES Specimen Blood Performing Organization Address City/State/ZIP Code Phon e Number [facility] [address] [place] [address] SERVICES RAD US ABDOMEN ONE ORGAN/QUADRANT (02/14/2015 13:39 EDT) Anatomical Region Laterality Modality Other Specimen Narrative [facility] - 02/14/2015 20:06 EDT RAD US ABDOMEN ONE ORGAN/QUADRANT ??02/14/2015 1:39 PM Signs and Symptoms/Comments: ?? ruq for correct perc karla placement, bl oody drainage Comparison: CT abdomen and pelvis [facility] feb 12 2015. Technique: Static and cine sonographic images with grayscale, color and pulse Doppler ultrasound of the right upper qu adrant is performed. Findings: The study was limited due to body habitu s and poor cooperation. The liver shows normal echogenicity. ??I t measures 13.7 cm in length which is normal. No intrahepatic biliary ductal dilatation or focal lesions are identified. ?? The gallbladder is decompressed and show s a catheter within its lumen. Some gallbladder stones are also present. The gallbladder wall is normal measuring 2 mm. Small amount o f pericholecystic fluid is seen surrounding the gallbladder. The co mmon bile duct measures 4.8 mm. The right kidney measures 2.5 cm in [place] th and appeared normal. No hydronephrosis or perinephric fluid is p resent. The pancreas was difficult to visualized . The proximal abdominal aorta and IVC are normal. No ascites identified. Impression: Decompressed gallbladder with gallstones and percutaneous catheter visualized within its lumen. ?? I have personally reviewed the images an d the above interpretation and agree with the findings. Procedure Note Joseph Padron MD - 02/14/2015 RAD US ABDOMEN ONE ORGAN/QUADRANT 015 1:39 PM Signs and Symptoms/Comments: ruq for correct perc karla placement, bl oody drainage Comparison: CT abdomen and pelvis perfor [facility] feb 12 2015. Technique: Static and cine sonographic images with grayscale, color and pulse Doppler ultrasound of the right upper qu adrant is performed. Findings: The study was limited due to body habitu s and poor cooperation. The liver shows normal echogenicity. It measures 13.7 cm in length which is normal. No intrahepatic biliary ductal dilatation or focal lesions are identified. The gallbladder is decompressed and show s a catheter within its lumen. Some gallbladder stones are also present. The gallbladder wall is normal measuring 2 mm. Small amount o f pericholecystic fluid is seen surrounding the gallbladder. The co mmon bile duct measures 4.8 mm. The right kidney measures 2.5 cm in [place] th and appeared normal. No hydronephrosis or perinephric fluid is p resent. The pancreas was difficult to visualized . The proximal abdominal aorta and IVC are normal. No ascites identified. Impression: Decompressed gallbladder with gallstones and percutaneous catheter visualized within its lumen. I have personally reviewed the images an d the above interpretation and agree with the findings. Performing Organization Address [facility] Code Phon e Number [facility] GLUCOSE, GLUCOMETER (02/14/2015 13:00 EDT) Glucose, 77 70 - 100 [facility] Fingerstick mg/dl LABORATORY SERVICES Furniture Upholste[employer] ID [id number]: [facility] Test Performed by LABORATORY Nursing Services SERVICES Specimen Blood Performing Organization Address [facility] Phon e Number [facility] [address] [place] [address] SERVICES (ABNORMAL) GLUCOSE, GLUCOMETER (02/14/2015 12:37 EDT) Glucose, 67 (L) 70 - 100 [facility] Fingerstick mg/dl LABORATORY SERVICES Furniture Upholsterer ID [id number]: [facility] Test Performed by LABORATORY Nursing Services SERVICES Specimen Blood Performing Organization Address [facility] Phon e Number [facility] [address] [place] [address] SERVICES THYROID CASCADE (02/14/2015 12:20 EDT) TSH 0.73 0.35 - 5.00 [facility] Comment: uIU/ml LABORATORY SERVICES TSH cascade is not recommended for patients in which pituitary or hypothalamic disorders are suspected. Specimen Blood Performing Organization Address [facility]/[place] [facility] [place] [facility] [address] [place] [address] SERVICES LDH (02/14/2015 12:20 EDT) Pathologist Sig nature LDH 374 313 - 618 U/L [facility] LABORATO RY SERVICES Specimen Blood specimen (specimen) - Blood Performing Organization Address [facility] Phon e Number [facility] [address] [place] [address] SERVICES (ABNORMAL) GLUCOSE, GLUCOMETER (02/14/2015 12:12 EDT) Glucose, 60 (L) 70 - 100 [facility] Fingerstick mg/dl LABORATORY SERVICES Furniture Upholsterer [place] [id number]: [facility] Test Performed by LABORATORY Nursing Services SERVICES Specimen Blood Performing Organization Address [facility]/[place] [facility] [place] [facility] [address] [place] [address] SERVICES INPATIENT ADD-ON (02/14/2015 11:25 EDT) Tests to be added RETICULOCYTE COUNT [facility] [place] [id number] [facility] problems LABORATORY SERVICES Accession number [id number] [facility] LAB[facility]ATORY SERVICES Specimen Other Performing Organization Address [facility] Phon e Number [facility] [address] [place] [address] SERVICES INPATIENT ADD-ON (02/14/2015 11:20 EDT) [facility] Signature Tests to be added HAPTOGLOBIN,LDH,T [facility] OTAL BILI LABORATORY SERVICES Number for problems PAGER [phone] [facility] LABORATORY SERVICES Accession number PER DR CAMERON [facility] ADD TO 02/12 LABORATORY SERVICES [id number] TBIL IS A DUP ONLY ADD LDH,HAPT Specimen Other Performing Organization Address [facility] Phon e Number [facility] [address] [place] [address] SERVICES RETICULOCYTE COUNT (02/14/2015 7:52 EDT) Retic Ct 1.6Comment: Add 0.5 - 2.0 % [facility] (Uncorrected) on order LABORATORY SERVICES Specimen Blood Performing Organization Address [facility] Phon e Number [facility] [address] [place] [address] SERVICES (ABNORMAL) HEMAGRAM AND DIFFERENTIAL (02/14/2015 7:52 EDT) Pathologist Sig nature WBC 5.54 4.0 - 12.4 K/cmm [facility] LABORATORY SERVICES RBC 2.98 (L) 3.86 - 5.04 [facility] M/[facility] LABORATORY SERVICES Hemoglobin 8.9 (L) 11.6 - 15.2 [facility] gm/dl LABORATORY SERVICES HCT 26.1 (L) 34.9 - 44.4 % [facility] LABORATORY SERVICES MCV 88 81 - 98 fl [facility] LABORAT[facility] SERVICES MCH 29.7 26.7 - 33.3 pg [facility] LABORATORY SERVICES MCHC 33.9 32.1 - 35.9 [facility] gm/dl LABORATORY SERVICES RDW-CV 16.5 (H) 11.7 - 14.6 % [facility] LABORATORY SERVICES RDW-SD 51.2 (H) 37.6 - 50.3 fl [facility] LABORATORY SERVICES Anisocytosis 1+ [facility] LABORATORY SERVICES PLT 156 141 - 320 K/[facility] LABORATORY SERVICES MPV 7.6 7.5 - 11.2 fl [facility] LABORATORY SERVICES Neutrophils 51.8 45.5 - 79.7 % [facility] LABORATORY SERVICES Lymphocytes 43.4 15.0 - 46.8 % [facility] LABORATORY SERVICES Monocytes 3.7 1.8 - 12.0 % [facility] LABORATORY SERVICES Eosinophils 0.4 (L) 0.6 - 6.9 % [facility] LABORATORY SERVICES Basophils 0.7 0.2 - 1.4 % [facility] LABORATORY SERVICES ABS Neutrophils 2.88 2.20 - 8.85 [facility] K/[facility] LABORATORY SERVICES ABS Lymphs 2.40 1.09 - 3.30 [facility] K/[facility] LABORATORY SERVICES ABS Monocytes 0.21 0.1 - 0.8 /[facility] LABORATORY SERVICES ABS Eosinophils 0.02 (L) 0.03 - 0.61 [facility] LABORATORY SERVICES ABS Basophils 0.04 0.01 - 0.11 [facility] K/[facility] LABORATORY SERVICES Type of Diff: Automated [facility] LABORATORY SERVICES Specimen Blood specimen (specimen) - Blood Performing Organization Address City/State/ZIP Code Phon e Number [facility] [address] [place] [address] SERVICES GLUCOSE, GLUCOMETER (02/14/2015 7:03 EDT) Glucose, 76 70 - 100 [facility] Fingerstick mg/dl LABORATORY SERVICES Furniture Uphol[place] [id number]: [facility] Test Performed by LABORATORY Nursing Services SERVICES Specimen Blood Performing Organization Address City/[facility]/ZIP Code Phon e Number [facility] [address] [place] [address] SERVICES (ABNORMAL) GLUCOSE, GLUCOMETER (02/14/2015 6:17 EDT) Glucose, 52 (L) 70 - 100 [facility] Fingerstick mg/dl LABORATORY SERVICES Furniture Upholste[place] [id number]: [facility] Test Performed by LABORATORY Nursing Services SERVICES Specimen Blood Performing Organization Address City/State/ZIP Code Phon e Number [facility] [address] [place] [address] SERVICES GLUCOSE, GLUCOMETER (02/14/2015 0:03 EDT) Glucose, 82 70 - 100 [facility] Fingerstick mg/dl LABORATORY SERVICES Furniture Uphol[place] [id number]: [facility] Test Performed by LABORATORY Nursing Services SERVICES Specimen Blood Performing Organization Address City/State/ZIP Code Phon e Number [facility] [address] [place] [address] SERVICES GLUCOSE, GLUCOMETER (02/13/2015 18:28 EDT) Glucose, 78 70 - 100 [facility] Fingerstick mg/dl LABORATORY SERVICES Furniture U[place] [id number]: [facility] Test Performed by LABORATORY Nursing Services SERVICES Specimen Blood Performing Organization Address City/State/ZIP Code Phon e Number [facility] [address] [place] [address] SERVICES GLUCOSE, GLUCOMETER (02/13/2015 11:58 EDT) Glucose, 86 70 - 100 [facility] Fingerstick mg/dl LABORATORY SERVICES Furniture Uphol[place] [id number]: [facility] Test Performed by LABORATORY Nursing Services SERVICES Specimen Blood Performing Organization Address City/[facility]/ZIP Code Phon e Number [facility] [address] [place] [address] SERVICES (ABNORMAL) GLUCOSE, GLUCOMETER (02/13/2015 7:07 EDT) Glucose, 115 (H) 70 - 100 [facility] Fingerstick mg/dl LABORATORY SERVICES Furniture Uphol[place] [id number]: [facility] Test Performed by LABORATORY Nursing Services SERVICES Specimen Blood Performing Organization Address City/[facility]/ZIP Code Phon e Number [facility] [address] [place] [address] SERVICES HAPTOGLOBIN (02/13/2015 5:43 EDT) Pathologist Sig nature Haptoglobin 185 36 - 195 mg/dl [facility] LABORAT ORY SERVICES Specimen Blood Performing Organization Address City/State/ZIP Code Phon e Number [facility] [address] [place] [address] SERVICES (ABNORMAL) HEMAGRAM AND DIFFERENTIAL (02/13/2015 5:43 EDT) Pathologist Sig nature WBC 20.27 (H) 4.0 - 12.4 K/cmm [facility] LABORATORY SERVICES RBC 3.83 (L) 3.86 - 5.04 [facility] M/[facility] LABORATORY SERVICES Hemoglobin 11.0 (L) 11.6 - 15.2 [facility] gm/dl LABORATORY SERVICES HCT 33.2 (L) 34.9 - 44.4 % [facility] LABORATORY SERVICES MCV 87 81 - 98 fl [facility] LABORATORY SERVICES MCH 28.6 26.7 - 33.3 pg [facility] LABORATORY SERVICES MCHC 33.0 32.1 - 35.9 [facility] gm/dl LABORATORY SERVICES RDW-CV 16.2 (H) 11.7 - 14.6 % [facility] LABORATORY SERVICES RDW-SD 49.0 37.6 - 50.3 fl [facility] LABORATORY SERVICES PLT 188 141 - 320 K/[facility] LABORATORY SERVICES MPV 7.8 7.5 - 11.2 fl [facility] LABORATORY SERVICES Neutrophils 80.2 (H) 45.5 - 79.7 % [facility] LABORATORY SERVICES Lymphocytes 12.0 (L) 15.0 - 46.8 % [facility] LABORATORY SERVICES Monocytes 7.4 1.8 - 12.0 % [facility] LABORATORY SERVICES Eosinophils 0.1 (L) 0.6 - 6.9 % [facility] LABORATORY SERVICES Basophils 0.3 0.2 - 1.4 % [facility] LABORATORY SERVICES ABS Neutrophils 16.28 (H) 2.20 - 8.85 [facility] K/[facility] LABORATORY SERVICES ABS Lymphs 2.42 1.09 - 3.30 [facility] K/[facility] LABORATORY SERVICES ABS Monocytes 1.50 (H) 0.1 - 0.8 K/[facility] LABORATORY SERVICES ABS Eosinophils 0.01 (L) 0.03 - 0.61 [facility] K/[facility] LABORATORY SERVICES ABS Basophils 0.06 0.01 - 0.11 [facility] K/cmm LABORATORY SERVICES Type of Diff: Automated [facility] LABORATORY SERVICES Specimen Blood specimen (specimen) - Blood Performing Organization Address [facility]/ZIP Code Phon e Number [facility] [address] [place] [address] SERVICES BILIRUBIN, TOTAL (02/13/2015 5:43 EDT) Pathologist Sig nature Bilirubin, Total 1.0 <1.4 mg/dl [facility] LABOR ATORY SERVICES Specimen Blood specimen (specimen) - Blood Performing Organization Address City/[facility]/ZIP Code Phon e Number [facility] [address] [place] [address] SERVICES ALKALINE PHOSPHATASE (02/13/2015 5:43 EDT) Pathologist Sig nature Total Alkaline 103 38 - 126 U/L [facility] Phosphatase LABORATORY SERVICES Specimen Blood specimen (specimen) - Blood Performing Organization Address [facility]/[place] [facility] [place] [facility] [address] [place] [address] SERVICES AST (02/13/2015 5:43 EDT) Pathologist Sig nature AST 28 15 - 46 U/L [facility] LABORATOR Y SERVICES Specimen Blood specimen (specimen) - Blood Performing Organization Address City/[facility]/ZIP Code Phon e Number [facility] [address] [place] [address] SERVICES ALT (02/13/2015 5:43 EDT) Pathologist Sig nature ALT 18 <53 U/L [facility] Y SERVICES Specimen Blood specimen (specimen) - Blood Performing Organization Address [facility]/[place] [facility] [place] [facility] [address] [place] [address] SERVICES CREATININE (02/13/2015 5:43 EDT) Pathologist Sig nature Creatinine 0.55 0.52 - 1.04 mg/dl [facility] SERVICES GFR, Calculated >60 >60 ml/min/1.73m2 [facility] SERVICES Specimen Blood specimen (specimen) - Blood Performing Organization Address [facility]/[place] [facility] [place] [facility] [address] [place] [address] SERVICES ELECTROLYTES (02/13/2015 5:43 EDT) Pathologist Sig nature Sodium 137 136 - 145 mEq/L [facility] TORY SERVICES Potassium 4.4 3.5 - 5.0 mEq/L [facility] TORY SERVICES Chloride 104 96 - 110 mEq/L [facility] ORY SERVICES CO2 27 24 - 32 mEq/L [facility] RY SERVICES Specimen Blood specimen (specimen) - Blood Performing Organization Address City/[facility]/ZIP Code Phon e Number [facility] [address] [place] [address] SERVICES BUN (02/13/2015 5:43 EDT) Pathologist Sig nature BUN 14 10 - 26 mg/dl [facility] RY SERVICES Specimen Blood specimen (specimen) - Blood Performing Organization Address City/[facility]/ZIP Code Phon e Number [facility] [address] [place] [address] SERVICES EKG 12-LEAD (02/13/2015 3:12 EDT) Specimen Narrative [facility] EKG - 02/18/2015 11:2 0 EDT ? [facility] ? Test Date: ?2015-02-13 Pat Name: ? GINGER BARRERA ?Department: ?? [address] ? Room: ? SB467 Gender: ? F ?Service Electrician: ?? [id number] : ?1960 ? Requested By: MURALI EDWARDS Order Number: [id number] ? Nicholas MATT: ?? AMINATA SETH MD ? Measurements Intervals ?[place] ? Rate: ? 110 ?P: ?45 LA: ? 130 ?QRS: ?21 QRSD: ? 89 ? T: ?38 QT: ? 309 ? QTc: ?418 ? Interpretive Statements SINUS TACHYCARDIA NONSPECIFIC T-WAVE ABNORMALITY ABNORMAL RHYTHM ECG Automated Interpretation. ??Physician In terpretation to follow. Compared to ECG 02/04/2011 14:44:35 Sinus tachycardia now present T-wave abnormality now present I reviewed the tracing and have either a greed or edited the findings in this report. Electronically Signed On 11:20:43 EDT by AMINATA SETH MD. Procedure Note Aminata Seth MD - 02/18/2015 [facility] Test Date: 2015-02-13 Pat Name: GINGER BARRERA Department: [address] Room: 467 Gender: F Service Electrician: [id number] : 1960 Requested By: MURALI MORRIS Order Number: [id number] Reading MD: Ashu SETH MD Measurements Intervals [place] Rate: 110 P: 45 LA: 130 QRS: 21 QRSD: 89 T: 38 QT: 309 QTc: 418 Interpretive Statements SINUS TACHYCARDIA NONSPECIFIC T-WAVE ABNORMALITY ABNORMAL RHYTHM ECG Automated Interpretation. Physician Inte rpretation to follow. Compared to ECG 02/04/2011 14:44:35 Sinus tachycardia now present T-wave abnormality now present I reviewed the tracing and have either a greed or edited the findings in this report. Electronically Signed On 11:20:43 EDT by AMINATA SETH MD. Performing Organization Address City/State/ZIP Code Phon e Number [facility] EKG (ABNORMAL) GLUCOSE, GLUCOMETER (02/13/2015 0:16 EDT) Glucose, 116 (H) 70 - 100 [facility] Fingerstick mg/dl LABORATORY SERVICES Furniture Upholsterer ID [id number]: [facility] Test Performed by LABORATORY Nursing Services SERVICES Specimen Blood Performing Organization Address City/State/ZIP Code Phon e Number [facility] [address] [place] [address] SERVICES IR PERC CHOLECYSTOTOSMY (02/12/2015 23:50 EDT) Anatomical Region Laterality Modality Other Specimen Narrative [facility] - 02/17/2015 12:44 EDT Percutaneous Cholecystostomy Tube Placement 02/12/15 at 2300 hours History: Nonoperative candidate. Cholecystitis. P lease place a percutaneous cholecystostomy tube. Description: A time out was performed, with documenta tion of two patient identifiers, the correct procedure, and the correct site. Intravenous midazolam and fentanyl were administered for moderate sedation during continuous monitoring of the blood press ure, pulse rate, and oxygen saturation. Utilizing sterile technique, fluoroscopi c control, real-time ultrasound guidance, and local lidocaine anesthesia, a 19-gauge needle was advanced percutaneously into the gallbladder lumen. 10 mL of nonpurulent of bile was aspirated and sent to the laboratory for cultures and sensitivities, as well as G stephen stain. Then, utilizing standard guidewire technique, the needle was exchanged for a 10 Nepali pigtail cholecystostomy tube whic h was successfully placed into the lumen of the gallbladder and se cured to the skin. An additional 20 mL of nonpurulent bile was aspirated from the gallbladder. 10 mL of contrast media was slowly injected into the gallbladder during digital imaging and r ecording. This demonstrated innumerable stones within the gallbladde r. The cholecystostomy tube is in satisfactory position and function s within normal limits. This cholecystostomy tube will be mainta ined on bag drainage. A followup tube cholangiogram should be pe rformed in several weeks to assess the status of the cystic duct and cholecystostomy tube. The patient tolerated the procedure well . No complication occurred. The estimated blood loss during this pro cedure was 0. Impression: Successful placement of a percutaneous c holecystostomy tube. Procedure Note Jerson Khalil MD - 02/17/2015 Percutaneous Cholecystostomy Tube Placem ent 02/12/15 at 2300 hours History: Nonoperative candidate. Cholecystitis. P lease place a percutaneous cholecystostomy tube. Description: A time out was performed, with documenta tion of two patient identifiers, the correct procedure, and the correct site. Intravenous midazolam and fentanyl were administered for moderate sedation during continuous monitoring of the blood press ure, pulse rate, and oxygen saturation. Utilizing sterile technique, fluoroscopi c control, real-time ultrasound guidance, and local lidocaine anesthesia, a 19-gauge needle was advanced percutaneously into the gallbladder lumen. 10 mL of nonpurulent of bile was aspirated and sent to the laboratory for cultures and sensitivities, as well as G stephen stain. Then, utilizing standard guidewire technique, the needle was exchanged for a 10 Nepali pigtail cholecystostomy tube whic h was successfully placed into the lumen of the gallbladder and se cured to the skin. An additional 20 mL of nonpurulent bile was aspirated from the gallbladder. 10 mL of contrast media was slowly injected into the gallbladder during digital imaging and r ecording. This demonstrated innumerable stones within the gallbladde r. The cholecystostomy tube is in satisfactory position and function s within normal limits. This cholecystostomy tube will be mainta ined on bag drainage. A followup tube cholangiogram should be pe rformed in several weeks to assess the status of the cystic duct and cholecystostomy tube. The patient tolerated the procedure well . No complication occurred. The estimated blood loss during this pro cedure was 0. Impression: Successful placement of a percutaneous c holecystostomy tube. Performing Organization Address City/[facility]/ZIP Code Phon e Number [facility] BACTERIAL CULTURE/SMEAR, FLUID (02/12/2015 23:10 EDT) Gram Smear Result No polys seen [facility] Gram Smear Result No bacteria seen [facility] Result No growth [facility] SERVICES Specimen Other (qualifier value) - Fluid Performing Organization Address [facility] Phon e Number [facility] [address] [place] [address] SERVICES PTT (02/12/2015 21:43 EDT) Pathologist Sig nature PTT 30Comment: 26 - 37 secs [facility] Therapeutic Heparin LABORATORY SERVICES range: 65-100 seconds Specimen Blood specimen (specimen) - Blood Performing Organization Address [facility] Phon e Number [facility] [address] [place] [address] SERVICES (ABNORMAL) PROTIME (02/12/2015 21:43 EDT) Pro Time 14.6 (H) 9.5 - 12.3 [facility] secs LABORATORY SERVICES I.N.R. 1.3 (H) 0.9 - 1.1 [facility] Comment: Ratio LABORATORY SERVICES Moderate Intensity Coumadin INR = 2.0-3.0 Adjustments in anticoagulant therapy dose should be based upon the INR and NOT the Pro Time. Specimen Blood specimen (specimen) - Blood Performing Organization Address [facility] Phon e Number [facility] [address] [place] [address] SERVICES (ABNORMAL) HEMAGRAM AND DIFFERENTIAL (02/12/2015 21:43 EDT) Pathologist Sig nature WBC 26.47 (H) 4.0 - 12.4 K/cmm [facility] RBC 4.39 3.86 - 5.04 [facility] M/cmm LABORATORY SERVICES Hemoglobin 12.4 11.6 - 15.2 [facility] gm/dl LABORATORY SERVICES HCT 38.3 34.9 - 44.4 % [facility] SERVICES MCV 87 81 - 98 fl [facility] MCH 28.3 26.7 - 33.3 pg [facility] SERVICES MCHC 32.4 32.1 - 35.9 [facility] gm/dl LABORATORY SERVICES RDW-CV 16.7 (H) 11.7 - 14.6 % [facility] SERVICES RDW-SD 50.3 37.6 - 50.3 fl [facility] Anisocytosis 1+ [facility] PLT 233 141 - 320 K/cmm [facility] SERVICES MPV 7.8 7.5 - 11.2 fl [facility] SERVICES Neutrophils 90.0 (H) 45.5 - 79.7 % [facility] Bands 1.0 % [facility] Lymphocytes 7.0 (L) 15.0 - 46.8 % [facility] Monocytes 2.0 1.8 - 12.0 % [facility] SERVICES ABS Neutrophils 23.83 (H) 2.20 - 8.85 [facility] K/cm LABORATORY SERVICES ABS Bands 0.26 K/cmm [facility] SERVICES ABS Lymphs 1.85 1.09 - 3.30 [facility] K/[facility] LABORATORY SERVICES ABS Monocytes 0.53 0.1 - 0.8 [facility] Toxic Granulation Present [facility] Vacuolization Present [facility] Type of Diff: Manual [facility] SERVICES Specimen Blood specimen (specimen) - Blood Performing Organization Address [facility]/ZIP Code Phon e Number [facility] [address] [place] [address] SERVICES LIPASE (02/12/2015 21:43 EDT) Pathologist Sig nature Lipase 52 <251 U/L [facility] LABORATOR Y SERVICES Specimen Blood specimen (specimen) - Blood Performing Organization Address City/[facility]/ZIP Code Phon e Number [facility] [address] [place] [address] SERVICES LACTIC ACID (02/12/2015 21:43 EDT) Pathologist Sig nature Lactic Acid 1.5 0.7 - 2.1 mmol/L [facility] SERVICES Specimen Blood specimen (specimen) - Blood Performing Organization Address City/[facility]/[place] [facility] [place] [facility] [address] [place] [address] SERVICES (ABNORMAL) COMPREHENSIVE METABOLIC PANEL (CMP) (02/12/2015 21:43 EDT) Potassium 4.4 3.5 - 5.0 mEq/L [facility] SERVICES Sodium 136 136 - 145 mEq/L [facility] Chloride 102 96 - 110 mEq/L [facility] SERVICES CO2 26 24 - 32 mEq/L [facility] SERVICES Total Alkaline 101 38 - 126 U/L [facility] Phosphatase LABORATORY SERVICES Bilirubin, Total 1.3 <1.4 mg/dl [facility] SERVICES AST 34 15 - 46 U/L [facility] SERVICES ALT 18 <53 U/L [facility] SERVICES Albumin 2.9 (L) 3.4 - 4.9 g/dl [facility] SERVICES Total Protein 5.9 (L) 6.5 - 8.3 g/dl [facility] SERVICES Creatinine 0.49 (L) 0.52 - 1.04 [facility] mg/dl LABORATORY SERVICES GFR, Calculated >60 >60 [facility] ml/min/1.73m2 LABORATORY SERVICES BUN 11 10 - 26 mg/dl [facility] SERVICES Calcium 9.3 8.5 - 10.5 [facility] mg/dl LABORATORY SERVICES Calculated Calcium 10.8 (H) 8.5 - 10.5 [facility] mg/dl LABORATORY SERVICES Glucose, Serum 148 (H) 70 - 100 mg/dl [facility] SERVICES Fasting? Unknown [facility] SERVICES Specimen Blood specimen (specimen) - Blood Performing Organization Address City/[facility]/ZIP Code Phon e Number [facility] [address] [place] [address] SERVICES TYPE AND SCREEN (02/12/2015 21:15 EDT) Pathologist Sig nature ABO A [facility] BLOOD [facility] Rh Factor Positive [facility] Antibody Screen NegativeComment: [facility] SPECIMEN EXPIRES BLOOD BANK 02/15/15 @ 23:59. Specimen Blood specimen (specimen) Performing Organization Address City/[facility]/ZIP Code Phon e Number [facility] [address] BLOOD BANK documented in this encounter Visit Diagnoses Diagnosis Cholecystitis, acute - Primary Acute cholecystitis Diabetes mellitus, type 2 (HCC) Type II or unspecified type diabetes katya litus without mention of complication, not stated as uncontrolled History of seizures Personal history of other disorders of n ervous system and sense organs DM (diabetes mellitus) ([facility]) Type II or unspecified type diabetes katya litus without mention of complication, not stated as uncontrolled Severe sepsis Unspecified septicemia Hypothyroidism Unspecified hypothyroidism Primary central nervous system vasculiti s (HCC-CMS) ([facility]) Arteritis, unspecified History of cerebral infarction Transient ischemic attack (TIA), and cer ebral infarction without residual deficits Right spastic hemiparesis ([facility]-CMS) ([facility] ) Spastic hemiplegia affecting unspecified side documented in this encounter Administered Medications Inactive Administered Medications - up to 3 most recent administrations Medication Order MAR Action Action Date Dose Rate Site acetaminophen (TYLENOL) tablet 650 mg Given 02/15/2015 5:24 EDT 650 mg 650 mg, oral, EVERY 6 HOURS PRN, Starting on Sun02/12/15 at 2353, Until Sun02/18/15 at 1949, Fever, Routine Given 02/13/2015 9:30 EDT 650 mg Given 02/13/2015 1:52 EDT 650 mg ARIPiprazole (ABILIFY) tablet 30 mg Given 02/17/2015 20:58 EDT 30 mg 30 mg, oral, AT BEDTIME, First dose on 02/13/15 at 0030, Until Discontinued, Routine Given 02/16/2015 20:25 EDT 30 mg Given 02/15/2015 21:44 EDT 30 mg bisacodyl (DULCOLAX) suppository 10 mg Given 02/16/2015 8:44 EDT 10 mg 10 mg, rectal, DAILY PRN, Starting on Sun02/16/15 at 0828, Until Sun02/18/15 at 1949, Constipation, Routine buPROPion (WELLBUTRIN SR) SR tablet 150 mg Given 02/18/2015 8:01 EDT 150 mg 150 mg, oral, 2 TIMES DAILY, First dose on 02/13/15 at 0030, Until Discontinued, Routine Given 02/17/2015 20:58 EDT 150 mg Given 02/17/2015 8:56 EDT 150 mg carbidopa-levodopa (SINEMET) 25-100 mg per Given 02/18/2015 16:4 7 EDT 1 Tablet tablet 1 Tab 1 Tablet, oral, 4 TIMES DAILY, First dose on 02/13/15 at 0030, Until Discontinued, Routine Given 02/18/2015 11:55 EDT 1 Tablet Given 02/18/2015 7:53 EDT 1 Tablet dextrose 5 % and 0.45 % NaCl with KCl 20 New Bag 02/15/2015 14 :08 EDT 125 mL/hr mEq/L infusion at 125 mL/hr, intravenous, CONTINUOUS, Starting on 02/14/15 at 1145, Until 02/15/15 at 1538, Routine New Bag 02/15/2015 5:24 EDT 125 mL/hr New Bag 02/14/2015 21:15 EDT 125 mL/hr divalproex (DEPAKOTE SPRINKLE) capsule Given 02/18/2015 8:01 EDT 1,000 mg capsule, sprinkle 1,000 mg 1,000 mg, oral, 2 TIMES DAILY, First dose on 02/13/15 at 0030, Until Discontinued, Routine Given 02/17/2015 20:59 EDT 1,000 mg Given 02/17/2015 9:00 EDT 1,000 mg docusate sodium (COLACE) capsule 100 mg Given 02/18/2015 8:02 EDT 100 mg 100 mg, oral, 2 TIMES DAILY, First dose on 02/13/15 at 0030, Until Discontinued, Routine Given 02/16/2015 20:25 EDT 100 mg Given 02/16/2015 8:41 EDT 100 mg enoxaparin (LOVENOX) injection 40 mg Given 02/18/2015 8:02 EDT 40 mg 40 mg, subcutaneous, DAILY, First dose on 02/13/15 at 0900, Until Discontinued, Routine Given 02/17/2015 9:00 EDT 40 mg Given 02/16/2015 8:42 EDT 40 mg fentaNYL citrate (PF) 50 mcg/mL injection Given 02/12/2015 23:34 EDT 125 mcg 25-250 mcg 25-250 mcg, intravenous, ONCE PRN, 1 dose, Starting on Sun02/12/15 at 2325, Until Sun02/12/15 at 2334, Other, radiology, Routine, Intraprocedure hydrocortisone (CORTEF) tablet 25 mg Given 02/18/2015 8:01 EDT 25 mg 25 mg, oral, 2 TIMES DAILY, 2 doses, First dose (after last modification) on Sun02/17/15 at 2100, Last dose on Maria Eugenia 5/28/15 at 0900, Routine Given 02/17/2015 22:11 EDT 25 mg hydrocortisone (CORTEF) tablet 50 mg Given 02/16/2015 8:37 EDT 50 mg 50 mg, oral, DAILY, First dose on Sun02/15/15 at 1600, Until Discontinued, Routine Given 02/15/2015 17:23 EDT 50 mg hydrocortisone (CORTEF) tablet 50 mg Given 02/17/2015 8:56 EDT 50 mg 50 mg, oral, 2 TIMES DAILY, First dose (after last modification) on Sun02/16/15 at 2100, Until Discontinued, Routine Given 02/16/2015 20:24 EDT 50 mg hydroCORTisone sodium succinate (PF) Given 02/15/2015 8:59 EDT 1 00 mg (SOLU-CORTEF) injection 100 mg 100 mg, intravenous, NOW X1, 1 dose, On Sun02/15/15 at 0830, Routine HYDROmorphone (PF) (DILAUDID) 1 mg/mL injection 1 Given 02/12/2015 21:47 EDT 1 mg mg 1 mg, intravenous, NOW X1, 1 dose, On Sun02/12/15 at 2115, STAT insulin aspart (NOVOLOG FLEXPEN) injecti on Given 02/16/2015 12:46 EDT 2 Units subcutaneous, EVERY 6 HOURS, First dose on Sun02/13/15 at 0600, Until Discontinued, Routine Given 02/15/2015 17:20 EDT 2 Units Given 02/15/2015 14:14 EDT 2 Units insulin aspart (NOVOLOG FLEXPEN) injecti on Given 02/18/2015 11:55 EDT 2 Units subcutaneous, 3 TIMES DAILY WITH MEALS, First dose (after last modification) on Sun02/16/15 at 1700, Until Discontinued, Routine Given 02/17/2015 17:59 EDT 3 Units Given 02/17/2015 11:44 EDT 2 Units insulin glargine (LANTUS SOLOSTAR) injection Given 20:27 EDT 10 Units pen 10 Units 10 Units, subcutaneous, AT BEDTIME, First dose on Sun02/13/15 at 0030, Until Discontinued, Routine Given 02/13/2015 1:28 EDT 10 Units insulin glargine (LANTUS SOLOSTAR) injection Given 22:07 EDT 5 Units pen 5 Units 5 Units, subcutaneous, AT BEDTIME, First dose (after last modification) on 02/14/15 at 2100, Until Discontinued, Routine insulin glargine (LANTUS SOLOSTAR) injection Given 5 21:11 EDT 5 Units pen 5 Units 5 Units, subcutaneous, AT BEDTIME, First dose on 02/15/15 at 2100, Until Discontinued, Routine Given 02/16/2015 20:54 EDT 5 Units Given 02/15/2015 21:50 EDT 5 Units lactated ringers (LR) infusion New Bag 02/13/2015 6:18 EDT 2,000 mL 75 mL/hr at 75 mL/hr, 2,000 mL, intravenous, CONTINUOUS, Starting on 02/13/15 at 0315, Until 02/13/15 at 0902, Routine lactated ringers BOLUS 500 mL Given 02/13/2015 1:20 EDT 500 mL 500 mL, intravenous, NOW X1, 1 dose, On 02/13/15 at 0115, Routine lamoTRIgine (LAMICTAL) tablet 50 mg Given 02/18/2015 8:01 EDT 50 mg 50 mg, oral, 2 TIMES DAILY, First dose on 02/13/15 at 1000, Until Discontinued, Routine Given 02/17/2015 20:59 EDT 50 mg Given 02/17/2015 8:57 EDT 50 mg levothyroxine (SYNTHROID) tablet 100 mcg Given 02/18/2015 6:50 EDT 100 mcg 100 mcg, oral, DAILY BEFORE BREAKFAST, First dose on 02/13/15 at 0700, Until Discontinued, Routine Given 02/17/2015 6:06 EDT 100 mcg Given 02/16/2015 6:51 EDT 100 mcg magnesium oxide (MAG-OX) tablet 400 mg Given 02/18/2015 8:01 EDT 400 mg 400 mg, oral, 2 TIMES DAILY, First dose on 02/13/15 at 0030, Until Discontinued, Routine Given 02/17/2015 20:59 EDT 400 mg Given 02/17/2015 8:57 EDT 400 mg morphine (MS IR) tablet 15 mg Given 02/18/2015 16:47 EDT 15 mg 15 mg, oral, EVERY 4 HOURS PRN, Starting on Sun02/17/15 at 1119, Until Maria Eugenia 02/18/15 at 1949, Pain, Routine Given 02/18/2015 12:00 EDT 15 mg Given 02/18/2015 7:53 EDT 15 mg morphine injection 2-4 mg Given 02/15/2015 4:09 EDT 4 mg 2-4 mg, intravenous, EVERY 4 HOURS PRN, Starting on 02/13/15 at 0259, Until Sun02/15/15 at 0843, Pain, Routine Given 02/14/2015 23:37 EDT 4 mg Given 02/14/2015 19:27 EDT 4 mg morphine injection 4-8 mg Given 02/17/2015 8:47 EDT 4 mg 4-8 mg, intravenous, EVERY 4 HOURS PRN, Starting on 02/15/15 at 0843, Until Sun02/17/15 at 1119, Pain, Routine Given 02/16/2015 6:04 EDT 6 mg Given 02/16/2015 0:32 EDT 6 mg morphine injection 5 mg Given 02/17/2015 11:36 EDT 5 mg 5 mg, intravenous, NOW X1, 1 dose, On Sun02/17/15 at 1130, Routine Multivitamins with Minerals tablet 1 Tab Given 02/18/2015 8:02 EDT 1 Tablet 1 Tablet, oral, DAILY, First dose on 02/13/15 at 0900, Until Discontinued, Routine Given 02/17/2015 9:00 EDT 1 Tablet Given 02/16/2015 8:41 EDT 1 Tablet mycophenolate mofetil (CELLCEPT) suspension 100 Given 02/18/2015 8:02 EDT 100 mg mg 100 mg, oral, DAILY, First dose on 02/13/15 at 0900, Until Discontinued, Routine Given 02/17/2015 8:59 EDT 100 mg Given 02/16/2015 8:44 EDT 100 mg ondansetron (PF) (ZOFRAN) injection 4 mg Given 02/15/2015 20:12 EDT 4 mg 4 mg, intravenous, EVERY 4 HOURS PRN, Starting on 02/15/15 at 0827, Until Maria Eugenia 02/18/15 at 1949, Nausea, Routine Given 02/15/2015 9:11 EDT 4 mg oxybutynin (DITROPAN-XL) CR tablet 15 mg Given 02/18/2015 8:01 EDT 15 mg 15 mg, oral, 2 TIMES DAILY, First dose on 02/13/15 at 0030, Until Discontinued, Routine Given 02/17/2015 20:58 EDT 15 mg Given 02/17/2015 8:57 EDT 15 mg piperacillin-tazobactam 4.5 g in sodium chloride Given 02/18/2015 7:53 EDT 4.5 g 0.9 % 100 mL IVPB 4.5 g, intravenous, Administer over 4 Hours, EVERY 8 HOURS, 42 doses, First dose on Sun02/13/15 at 0015, Last dose on Sun02/26/15 at 1600, Controlled antibiotic, has ID approved? No: After 10pm, Before 8am, Routine Given 02/18/2015 0:20 EDT 4.5 g Given 02/17/2015 16:47 EDT 4.5 g potassium chloride (KLOR-CON) packet 20 mEq Given 02/15/2015 9:42 EDT 20 mEq 20 mEq, oral, 2 TIMES DAILY, First dose on Sun02/13/15 at 0030, Until Discontinued Given 02/14/2015 20:24 EDT 20 mEq Given 02/14/2015 9:42 EDT 20 mEq predniSONE (DELTASONE) tablet 2.5 mg Given 02/14/2015 9:42 EDT 2.5 mg 2.5 mg, oral, DAILY, First dose on Sun02/13/15 at 0900, Until Discontinued, Routine Given 02/13/2015 8:22 EDT 2.5 mg simvastatin (ZOCOR) tablet 20 mg Given 02/17/2015 20:58 EDT 20 mg 20 mg, oral, AT BEDTIME, First dose on Sun02/13/15 at 0030, Until Discontinued, Routine Given 02/16/2015 20:25 EDT 20 mg Given 02/15/2015 21:39 EDT 20 mg sodium chloride 0.9 % (NS) infusion Rate Documented 02/14/2015 7:13 EDT 125 mL/hr at 125 mL/hr, intravenous, CONTINUOUS, Starting on 02/13/15 at 0930, Until 02/14/15 at 1123, Routine New Bag 02/14/2015 6:04 EDT 125 mL/hr New Bag 02/13/2015 23:15 EDT 125 mL/hr sodium chloride 0.9 % BOLUS 1,000 mL Given 02/13/2015 11:11 EDT 1,000 mL 1,000 mL, intravenous, NOW X1, 1 dose, On 02/13/15 at 1100, Routine sodium chloride 0.9 % BOLUS 500 mL Given 02/12/2015 21:47 EDT 500 mL 500 mL, intravenous, NOW X1, 1 dose, On 02/12/15 at 2115, STAT sodium chloride 0.9 % BOLUS 500 mL Given 02/15/2015 7:01 EDT 500 mL 500 mL, intravenous, NOW X1, 1 dose, On 02/15/15 at 0715, Routine documented in this encounter Discontinued Medications Medication Sig Discontinue Reason Start Date End Date divalproex (DEPAKOTE) Take by mouth 2 Alternate therapy 02/12/2015 500 mg EC tablet times daily. oxybutynin (DITROPAN) Take 1 Tab by mouth Alternate therapy 011 02/12/2015 5 mg 3 times daily. tabletIndications: CVA (cerebral infarction) UNABLE TO FIND Med Name: antibiotic Error 02/12 unable to recall the name, for UTI pregabalin (LYRICA) 50 Take 1 Cap by mouth Discontinued by 06/12/20 13 02/12/2015 mg capsuleIndications: 2 times daily. another clinician Chronic pain pantoprazole Take 40 mg by mouth Discontinued by 02/12 (PROTONIX) 40 mg daily. another clinician tablet insulin aspart Inject into the skin Discontinued by (NOVOLOG) 100 unit/mL 3 times daily before another clinician injection meals. 10units tid guaifenesin (MUCINEX) Take 600 mg by mouth Discontinued by 02/12/2015 600 mg SR tablet 2 times daily as another clinician needed. fluticasone (FLONASE) 50 mcg by nasal Discontinued by 02/12/2015 50 mcg/actuation nasal route daily as another clinician spray needed. insulin glargine Inject 20 Units into the skin at bedtime 02/18/2015 (LANTUS SOLOSTAR PEN) 100 unit/mL (3 mL) injection pen loperamide Take 2 mg by mouth 5 (ANTI-DIARRHEAL, every 6 hours as LOPERAMIDE,) 2 mg needed for Diarrhea tablet documented as of this encounter Historical Medications This list may reflect changes made after this encounter. Medication Sig Dispensed Refills Start Date End Date buPROPion (WELLBUTRIN SR) Take 450 mg by 0 150 mg SR tablet mouth daily. Multivitamins with Take 1 Tab by mouth 0 Minerals tablet daily carbidopa-levodopa Take 1 Tab by mouth 0 (SINEMET) 25-100 mg per 4 times daily tablet Lamotrigine 50 mg tablet Take 50 mg by mouth 0 extended release 24hr daily. traMADol (ULTRAM) 50 mg Take 50 mg by mouth 0 11/01/2018 tablet every 6 hours as needed for Pain potassium chloride Take 20 mEq by 0 (KAYCIEL) 20 mEq/15 mL mouth 2 times daily solution oxyCODONE (ROXICODONE) 5 Take 5 mg by mouth 0 07/30/2015 mg immediate release every 4 hours as tablet needed for Pain oxybutynin (DITROPAN XL) Take 15 mg by mouth 0 11/02/2018 15 mg CR tablet 2 times daily ondansetron (ZOFRAN-ODT) 4 Take 4 mg by mouth 0 05/28/2015 mg disintegrating tablet every 8 hours as needed for Nausea PEG 3350-Electrolytes Take 17 g by mouth 0 11/02/2018 (MIRALAX) 17 gram packet daily as needed (constipation) magnesium oxide (MAG-OX) Take 400 mg by 0 11/02/2018 400 mg tablet mouth 2 times daily loperamide Take 2 mg by mouth 0 2014 (ANTI-DIARRHEAL, every 6 hours as LOPERAMIDE,) 2 mg tablet needed for Diarrhea insulin lispro 100 unit/mL Inject into the skin 4 times daily FSBG Un its 0 03/01/2015 cartridge 180-220 2 221-260 3 261-300 4 301-340 5 divalproex (DEPAKOTE Take 125 mg by mouth 2 times daily 0 11/01/2018 SPRINKLES) 125 mg capsule ciprofloxacin HCl (CIPRO) Take 250 mg by 0 201402/16/2015 250 mg tablet mouth every 12 hours zolpidem (AMBIEN) 5 mg Take 5 mg by mouth 0 07/30/2015 tablet at bedtime as needed for Sleep added in this encounter Active and Recently Administered Medications Times are shown in EDT. Scheduled Medication Order 02/16/2015 02/17/2015 02/18/2015 ARIPiprazole (ABILIFY) tablet 30 mg (CANCELED) 2024 (G iven - Provider: Ramya Corea) 2057 (Given - Provider: Carrie Mendenhall, XIOMARA) 30 mg, oral, AT BEDTIME, First dose on S at 02/13/15 at 0030, Until Discontinued, Routine buPROPion (WELLBUTRIN SR) SR tablet 150 mg (CANCELED) 0841 (Given - Provider: Leonel Chung RN)2024 (Given - Provider: Ramya Corea) 0856 (Given - Provider: Leonel Chung RN)2057 (Given - Provider: Carrie Mendenhall RN) 0801 (Given - Provider: Lexy Fabian, XIOMARA) 150 mg, oral, 2 TIMES DAILY, First dose on 02/13/15 at 0030, Until Discontinued, Routine carbidopa-levodopa (SINEMET) 25-100 mg per tablet 1 Ta b (CANCELED) 0842 (Given - Provider: Leonel Chung RN)1246 (Given - Provider: Leonel Chung RN)1721 (Given - Provider: Leonel Chung RN)2024 (Given - Provider: Ramya Corea) 0857 (Given - Provider: Leonel Chung RN)1141 (Given - Provider: Leonel Chung RN)1801 (Given - Provider: Leonel Chung RN)2058 (Given - Provider: Carrie Mendenhall RN) 0753 (Given - Provider: Lexy marshall RN)1155 (Given - Provider: Lexy Fabian RN)1647 (Given - Provider: Lexy Fabian RN) 1 Tab, oral, 4 TIMES DAILY, First dose o n 02/13/15 at 0030, Until Discontinued, Routine divalproex (DEPAKOTE SPRINKLE) capsule capsule, sprink le 1,000 mg (CANCELED) 0837 (Given - Provider: Leonel Chung RN)2024 (Given - Provider: Ramya Corea) 0900 (Given - Provider: Leonel Chung RN)2058 (Given - Provider: Carrie Mendenhall RN) 0801 (Given - Provider: Lexy marshall RN) 1,000 mg, oral, 2 TIMES DAILY, First dos e on 02/13/15 at 0030, Until Discontinued, Routine docusate sodium (COLACE) capsule 100 mg (CANCELED) 08 1 (Given - Provider: Leonel Chung RN)2024 (Given - Provider: Ramya Corea) 0857 (Not Given - Provider: Leonel Chung RN - Reason: Other - Comment: uncontrollable loose bowel movements)2110 (Not Given - Provider: Carrie Mendenhall RN - Reason: Patient/family refused) 08 (Given - Provider: Lexy marshall RN) 100 mg, oral, 2 TIMES DAILY, First dose on 02/13/15 at 0030, Until Discontinued, Routine enoxaparin (LOVENOX) injection 40 mg (CANCELED) 0842 ( Given - Provider: Leonel Cuhng RN) 899 (Given - Provider: Leonel Chung RN) 08 (Gi jose - Provider: Lexy Fabian RN) 40 mg, subcutaneous, DAILY, First dose o n 02/13/15 at 0900, Until Discontinued, Routine hydrocortisone (CORTEF) tablet 25 mg (COMPLETED) 2210 (Given - Provider: Carrie Mendenhall RN) 08 (Given - Provider: Lexy marshall RN) 25 mg, oral, 2 TIMES DAILY, 2 doses, Fir st dose on Sun02/17/15 at 2100, Last dose on Sun02/18/15 at 0900, Routine hydrocortisone (CORTEF) tablet 50 mg (CANCELED) 08 ( Given - Provider: Leonel Chung RN) 50 mg, oral, DAILY, First dose on Mon at 1600, Until Discontinued, Routine hydrocortisone (CORTEF) tablet 50 mg (CANCELED) 2023 ( Given - Provider: Ramya Corea) 0856 (Given - Provider: Leonel Chung RN) 50 mg, oral, 2 TIMES DAILY, First dose o n 02/16/15 at 2100, Until Discontinued, Routine insulin aspart (NOVOLOG FLEXPEN) injection (CANCELED) 0113 (Not Given - Provider: Fransisca Cabezas RN - Reason: Order parameters not met - Comment: BGFS: 140 = 0 units)0623 (Not Given - Provider: Fransisca Cabezas RN - Reason: Order parameters not met - Comment: BGFS: 131 = 0 units) subcutaneous, EVERY 6 HOURS, First dose on 02/13/15 at 0600, Until Discontinued 1246 (Given - Provider: Leonel Chung RN) insulin aspart (NOVOLOG FLEXPEN) injection (CANCELED) 1722 (Given - Provider: Leonel Chung RN) 0841 (Not Given - Provider: Leonel vu RN - Reason: Order parameters not met)1144 (Given - Provider: Leonel Chung RN)1759 (Given - Provider: Leonel Chung RN - Comment: finger stick taken after pt had eaten popsicl 0735 (Not Given - Provider: Lexy Fabian RN - Reason: Order parameters not met)1155 (Given - Provider: Lexy Fabian RN)1700 (Due) subcutaneous, 3 TIMES DAILY WITH MEALS, First dose on Sun02/16/15 at 1700, Until Discontinued eMD vasquez recommended 3 units aspart ) insulin glargine (LANTUS SOLOSTAR) injection pen 5 Uni ts (CANCELED) 2053 (Given - Provider: Ramya Corea) 2110 (Given - Provider: Carrie Mendenhall RN) 5 Units, subcutaneous, AT BEDTIME, First dose on 02/15/15 at 2100, Until Discontinued, Routine lamoTRIgine (LAMICTAL) tablet 50 mg (CANCELED) 0840 (G iven - Provider: Leonel Chung RN)2024 (Given - Provider: Ramya Corea) 0857 (Given - Provider: Leonel Chung RN)2058 (Given - Provider: Carrie Mendenhall RN) 0801 (Given - Provider: Lexy Fabian RN) 50 mg, oral, 2 TIMES DAILY, First dose o n 02/13/15 at 1000, Until Discontinued, Routine levothyroxine (SYNTHROID) tablet 100 mcg (CANCELED) 06 51 (Given - Provider: Fransisca Cabezas RN) 0606 (Given - Provider: Anu Torres, XIOMARA) 0650 (Giv en - Provider: Carrie Mendenhall, XIOMARA) 100 mcg, oral, DAILY BEFORE BREAKFAST, F irst dose on 02/13/15 at 0700, Until Discontinued, Routine magnesium oxide (MAG-OX) tablet 400 mg (CANCELED) 0841 (Given - Provider: Leonel Chung RN)2024 (Given - Provider: Ramya Corea) 0857 (Given - Provider: Leonel Chung RN)2058 (Given - Provider: Carrie Mendenhall RN) 08 (Given - Provider: Lexy Fabian, XIOMARA) 400 mg, oral, 2 TIMES DAILY, First dose on 02/13/15 at 0030, Until Discontinued, Routine morphine injection 5 mg (COMPLETED) 1136 (Given - Provider: Leonel Chung RN) 5 mg, intravenous, NOW X1, 1 dose, 02/17/15 at 1130, Routine Multivitamins with Minerals tablet 1 Tab (CANCELED) 08 41 (Given - Provider: Leonel Chung RN) 09 (Given - Provider: Leonel Chung RN) 0802 (Gi jose - Provider: Lexy Fabian, XIOMARA) 1 Tab, oral, DAILY, First dose on Sat at 0900, Until Discontinued, Routine mycophenolate mofetil (CELLCEPT) suspension 100 mg (CA NCELED) 0844 (Given - Provider: Leonel Chung RN) 0859 (Given - Provider: Leonel Chung RN) 0802 (Given - Provider: Lexy Fabian, XIOMARA) 100 mg, oral, DAILY, First dose on Sat at 0900, Until Discontinued, Routine oxybutynin (DITROPAN-XL) CR tablet 15 mg (CANCELED) 08 41 (Given - Provider: Leonel Chung RN)2023 (Given - Provider: Ramya Corea) 0857 (Given - Provider: Leonel Chung RN)2057 (Given - Provider: Carrie Mendenhall RN) 0801 (Given - Provider: Lexy Fabian RN) 15 mg, oral, 2 TIMES DAILY, First dose o n 02/13/15 at 0030, Until Discontinued, Routine piperacillin-tazobactam 4.5 g in sodium chloride 0.9 % 100 mL IVPB (CANCELED) 0025 (Given - Provider: Fransisca Cabezas RN)0835 (Given - Provider: Leonel Chung, XIOMARA)1658 (Given - Provider: Leonel Chung RN) 0005 (Given - Provider: Anu Torres RN)0850 (Given - Provider: Leonel Chung RN)1647 (Given - Provider: Leonel Chung, XIOMARA) 0020 (Given - Provider: Carrie Mendenhall RN)0753 (Given - Provider: Lexy Fabian RN)1637 (Not Given - Provider: Lexy Fabian RN - Reason: Other - Comment: pt being discharged, ok to hold per MD Edwards) 4.5 g, intravenous, for 4 Hours, EVERY 8 HOURS, 42 doses, First dose on 02/13/15 at 0015, Last dose on Sun02/26/15 at 1600, Routine simvastatin (ZOCOR) tablet 20 mg (CANCELED) 2024 (Give n - Provider: Ramya Corea) 2057 (Given - Provider: Carrie Mendenhall RN) 20 mg, oral, AT BEDTIME, First dose on S at 02/13/15 at 0030, Until Discontinued, Routine PRN Medication Order 02/16/2015 02/17/2015 02/18/2015 bisacodyl (DULCOLAX) suppository 10 mg (CANCELED) 0844 (Given - Provider: Leonel Chung RN) 10 mg, rectal, DAILY PRN, Starting Sun at 0828, Until Sun02/18/15 at 1949, Constipation, Routine morphine (MS IR) tablet 15 mg (CANCELED) 1352 (Given - Provider: Leonel Chung RN)205 (Given - Provider: Carrie Mendenhall RN) 0753 (Given - Provider: Lexy Fabian RN)1200 (Given - Provider: Lexy Fabian RN)1647 (Given - Provider: Lexy Fabian RN) 15 mg, oral, EVERY 4 HOURS PRN, Starting 02/17/15 at 1119, Until Maria Eugenia 02/18/15 at 1949, Pain, Routine morphine injection 4-8 mg (CANCELED) 0032 (Given - Pro vider: Fransisca Cabezas RN)0604 (Given - Provider: Fransisca Cabezas RN) 0847 (Given - Provider: Leonel Chung RN) 4-8 mg, intravenous, EVERY 4 HOURS PRN, Starting 02/15/15 at 0843, Until 02/17/15 at 1119, Pain, Routine documented in this encounter Orders Medications Ordered That Might Not Have Count Last Ord ered Date First Ordered Date Been Administered predniSONE (DELTASONE) tablet 2.5 mg 1 02/18/2015 senna (SENOKOT) tablet 1 Tab 2 02/16/2015 hydroCORTisone sodium succinate (PF) 1 02/15/2015 (SOLU-CORTEF) injection 50 mg insulin glargine (LANTUS SOLOSTAR) 1 02/15/2015 injection pen 2 Units dextrose 50 % solution 12.5 g 1 02/13/2015 glucagon (human recombinant) injection 1 1 015 mg NONFORMULARY MEDICATION 50 mg 1 02/13/2015 PEG 3350-Electrolytes (MIRALAX) packet 17 1 2014 g docusate sodium (COLACE) capsule 200 mg 1 02/13/20 15 Lab Orders Without Results Count Last Ordered Date Fir st Ordered Date POCT GLUCOSE 2 02/16/2015 Procedures Count Last Ordered Date First Ordered Date ECG REPORT - SCANNED 1 02/22/2015 Diet Count Last Ordered Date First Ordered Date DISCHARGE DIET 1 02/18/2015 Nursing Count Last Ordered Date First Ordered Date ACTIVITY INSTRUCTIONS 2 02/18/2015 BEDREST 1 02/13/2015 CATHETER CARE 1 02/13/2015 DISCHARGE INSTRUCTIONS 1 02/13/2015 DRAIN CARE 1 02/13/2015 VITAL SIGNS 1 02/13/2015 IV Count Last Ordered Date First Ordered Date IV REQUEST 1 02/14/2015 Admission Count Last Ordered Date First Ordered Date STATUS: INPATIENT ACUTE ADMISSION 1 02/12/2015 Transfer Count Last Ordered Date First Ordered Date NOTIFY PPS OF DISCHARGE COMPLETE 1 02/18/2015 CHANGE ATTENDING TO: 2 02/16/2015 02/13/2015 NOTIFY PPS OF ROOM CHANGE COMPLETE 1 02/15/2015 UR PATIENT STATUS CHANGE 1 02/13/2015 PPS NOTIFICATION OF PATIENT ARRIVAL ON 5 UNIT Discharge Count Last Ordered Date First Ordered Date DISCHARGE PATIENT 1 02/18/2015 Legal Count Last Ordered Date First Ordered Date MISCELLANEOUS DISCHARGE INSTRUCTIONS 8 02/18/2015 documented in this encounter Care Teams Cover Seamer Relationship Specialty Start Date End Date Lamberto Henderson MD PCP - General 07/17/11 03/21/16 [address] [facility] [address] [place] [address] documented as of this encounter
--- OUTSIDE RECORDS SUMMARY | 2022-03-17 00:39 | XMS_ITS | Encounter Summary ---
:1960 Author Organization [facility] Address [address] [place] [address] Care Team Providers Name Role Phone Lamberto Henderson MD Primary Care Provider Ovidio Linares MD Primary Care Provider [phone] Pio Odonnell MD Primary Care Provider [phone] Encounter Details Date Type Department Care Team Description 02/24/[address] [facility] - Andrzej Tanner MD Only [facility] [address] [facility] [place] [facility] [address] [place] [id number] Social History Tobacco Use Types Packs/Day [...] Office Visit Urology Reji Foster MD [address] [facility], [facility], Level [address] [place] [phone] (Wo rk) documented as of this encounter Procedures Procedure Name Priority Date/Time Associated Diagnosis Comme nts CT ABDOMEN PELVIS W 02/24/2015 22:28 Resu lts for this CONTRAST EDT procedure are i n the results section. documented in this encounter Results CT ABDOMEN PELVIS W CONTRAST (02/24/2015 22:28 EDT) Specimen Narrative [facility] - 02/25/2015 10:43 EDT ? EXAM: CAT SCAN/ABDOMEN PELVIS WITH CONTRA EX. D/ (2228) ? CLINICAL INFORMATION: ? EVAL T TUBE, ABD PAIN ? Patient Name: Ginger Barrera ? Date of : 1960 ? Exam: CT ABDOMEN/PELVIS W ? Date of Exam: 02/24/2015 ? Referring Physician: RODDY SHARMA ? Clinical History: ABD PAIN, EVAL T TUBE ? FINAL REPORT ? EXAM: ? CT Abdomen and Pelvis With Intrav enous Contrast. ? CLINICAL HISTORY: ? 54 years old, female; Abd pain, e tristan t tube ? TECHNIQUE: ? Axial computed tomography images of the abdomen and pelvis with ? intravenous contrast. Coronal and sagittal reformatted images were ? created and reviewed. ? CONTRAST: ? 75 mL of OMNI 350 administered in travenously. ? COMPARISON: ? CT ABDOMEN PELVIS 02/12/2015 4:47: 42 PM ? FINDINGS: ? Lower thorax: Consolidations in t he lung bases that likely ? represent atelectasis or present previously. ? ABDOMEN: ? Liver: Unremarkable. No mass. ? Gallbladder and bile ducts: There has been interval placement ? only a percutaneous cholecystosto my catheter. The gallbladder is ? now decompressed. Pneumobilia is new. No ductal dilation. ? Pancreas: Unremarkable. No ductal dilation. No mass. ? Spleen: Unremarkable. No splenome phuc. ? Adrenals: Unremarkable. No mass. ? Kidneys and ureters: Bilateral re nal contour irregularity that ? may be due to scarring or l obation was present previously. No ? hydronephrosis. ? PELVIS: ? Bladder: There is a balloon malik ter in the urinary bladder. ? Reproductive: Heterogeneity of th e uterus may be due to ? leiomyomas. ? Appendix: The appendix is unremar kable. ? ABDOMEN ?? T ?? PELVIS: ? Stomach and bowel: There is a lar ge amount of in the rectum. ? There is a prominent amount of shanthi wel gas. ? PAGE 1 ? Marichuy d Report ? (CONTINUED) ? Peritoneum: There is a small amou nt of free fluid adjacent to the ? liver. The amount of free fluid h as increased. ? Lymph nodes: Unremarkable. No enl arged lymph nodes. ? Vasculature: There is evidence of atherosclerosis. No abdominal ? aortic aneurysm or dissection is identified. ? Bones: There are degenerative elly nges in the spine. There are ? degenerative changes in the spine at L5-S1 level. There are ? calcifications in the sacral kirsten l which was present previously. No ? acute fracture. ? Soft tissues: Mild infiltration o f fat in the right upper ? quadrant was present previously. A 1.7 cm indeterminate ? subcutaneous nodule in the right lower quadrant is new. ? IMPRESSION: ? 1. Interval placement of a percut aneous cholecystostomy catheter ? with decompression of the gallbla dder. Persistent inflammatory ? process in the right upper quadra nt. ? 2. Pneumobilia, new. ? 3. Increase in the small amount o f free fluid. ? 4. Possible fecal impaction in th e rectum. ? 5. Additional findings as above. ? Dictated, Authenticated, and Elec tronically Signed by: Pricilla, ? Otis on 02/24/2015 at 11:15:24P M ?Reported B y: Otis Pleitez MD ? CC: ? Transcribed Date/Time: 02/25/2015 (1043) ? Faculty Neuropsychologist: HIRA ? Printed Date/Time: 03/03/2019 (13 11) ? PAGE 2 ? Marichuy d Report ? Procedure Note Rachel Pleitez S - 07/29/2019 EXAM: CAT SCAN/ABDOMEN PELVIS WITH CONT RA EX. D/ (2228) CLINICAL INFORMATION: EVAL T TUBE, ABD PAIN Patient Name: Ginger Barrera Date of : 1960 Exam: CT ABDOMEN/PELVIS W Date of Exam: 02/24/2015 Referring Physician: RODDY SHARMA Clinical History: ABD PAIN, EVAL T TUBE FINAL REPORT EXAM: CT Abdomen and Pelvis With Intravenous Contrast. CLINICAL HISTORY: 54 years old, female; Abd pain, eval t tube TECHNIQUE: Axial computed tomography images of the abdomen and pelvis with intravenous contrast. Coronal and sagit keith reformatted images were created and reviewed. CONTRAST: 75 mL of OMNI 350 administered intraven ously. COMPARISON: CT ABDOMEN PELVIS 02/12/2015 4:47:42 PM FINDINGS: Lower thorax: Consolidations in the dorothy g bases that likely represent atelectasis or present previo usly. ABDOMEN: Liver: Unremarkable. No mass. Gallbladder and bile ducts: There has b een interval placement only a percutaneous cholecystostomy cat heter. The gallbladder is now decompressed. Pneumobilia is new. N o ductal dilation. Pancreas: Unremarkable. No ductal dilat ion. No mass. Spleen: Unremarkable. No splenomegaly. Adrenals: Unremarkable. No mass. Kidneys and ureters: Bilateral renal co ntour irregularity that may be due to scarring or lobatio n was present previously. No hydronephrosis. PELVIS: Bladder: There is a balloon catheter in the urinary bladder. Reproductive: Heterogeneity of the uter us may be due to leiomyomas. Appendix: The appendix is unremarkable. ABDOMEN T PELVIS: Stomach and bowel: There is a large ancelmo unt of in the rectum. There is a prominent amount of bowel ga s. PAGE 1 Signed Report (CONTINUED) Peritoneum: There is a small amount of free fluid adjacent to the liver. The amount of free fluid has inc reased. Lymph nodes: Unremarkable. No enlarged lymph nodes. Vasculature: There is evidence of ather osclerosis. No abdominal aortic aneurysm or dissection is identi fied. Bones: There are degenerative changes i n the spine. There are degenerative changes in the spine at L5 -S1 level. There are calcifications in the sacral canal whic h was present previously. No acute fracture. Soft tissues: Mild infiltration of fat in the right upper quadrant was present previously. A 1.7 cm indeterminate subcutaneous nodule in the right lower quadrant is new. IMPRESSION: 1. Interval placement of a percutaneous cholecystostomy catheter with decompression of the gallbladder. Persistent inflammatory process in the right upper quadrant. 2. Pneumobilia, new. 3. Increase in the small amount of free fluid. 4. Possible fecal impaction in the rect um. 5. Additional findings as above. Dictated, Authenticated, and Electronic ally Signed by: Otis Pleitez on 02/24/2015 at 11:15:24PM Reported By: Otis Pleitez MD CC: Transcribed Date/Time: 02/25/2015 (1043 ) Faculty Neuropsychologist: HIRA Printed Date/Time: 03/03/2019 (2001) PAGE 2 Signed Report Performing Organization Address City/State/ZIP Code Phon e Number [facility] RAD[facility] documented in this encounter Visit Diagnoses Not on filedocumented in this encounter Additional Health Concerns Infection Onset Date Last Indicated Resolved Time MRSAComment: IP note: risk factors - DM, impaired mobility, senior living resident 02/25/2015 02/25/2015 Pos nares 02/25/2015 Neg nares 11/02/18 Neg nares 12/13/18 N [place] 12/13/18 documented as of this encounter Care Teams Home Companion Relationship Specialty Start Date End Date Lamberto Henderson MD PCP - General 07/17/11 03/21/16 [address] [facility] [address] [place] [address] Ovidio Linares MD PCP - General 03/22/16 10/30/[address] [place] [address] [address] [place] [address] Pio Odonnell MD PCP - General 10/31/18 04/20/[address] [place], [place] [id number] documented as of this encounter
--- OUTSIDE RECORDS SUMMARY | 2022-03-17 00:39 | XMS_ITS | Encounter Summary ---
:1960 Author Organization [facility] Address [address] [place] [address] Care Team Providers Name Role Phone Lamberto Henderson MD Primary Care Provider Reason for Visit Reason Comments New Patient Visit Urinary INCONT- High Frequen cy, Urgency day and night. Referral (Routine) - Closed Specialty Diagnoses / Procedures Referred By Contact Refer red To Contact Urology Chance Armenta MD Holoch, Peter Andrew, MD [address] [facility] [address] [place] [address] [address] Phone: Fax: Referral ID Status Reason Start Date Expiration Date Visits Requ ested Visits Authorized [id number] Closed 1 1 Encounter Details Date Type Department Care Team Description 11/09/2014 Office Visit [facility] Jimbo Peralta Unspecif ied urinary Urology - Chandrakant Quiles MD incontinence (Primary [place] [address] [place] [address] Dx) [address] [place] [address] [facility] [phone] [address] (Wo rk) Social History Tobacco Use [...] as of this encounter Discharge Diagnoses Diagnosis 788.30 ENURESIS NOS[ICD-9-CM] documented in this encounter Discharge Disposition Disposition Code Departure Means Destination Auto Discharge documented in this encounter Progress Notes Jimbo Peralta MD - 11/09/2014 1037 EST Chief Complaint: Chief Complaint Patient presents with ??? New Patient Visit Urinary INCONT- High Frequency, Urgency day and night. Reason for Consult: Urology was asked to see Ginger in consultation at the request of Lamberto Henderson MD for evaluation of urinary incontinence. HPI: Ginger is a 54 y.o. female with 3 to 4 years of urinary incontinence. She describes large volume incontinence with an urge to urinate that she could not suppress. She suffered a stroke 3 years agoand has been immobilized since that time. She states she underwent some type of surgery about three years ago for urinary incontinence with a urologist in [place] but she cannot give any specifics. She has previously been evaluated by Dr. Armenta, whose note states she had a sacral ulcer and that a Martinez catheter was placed to divert urine away from the area. She has been leaking large amounts of urine around the catheter despite oxybuynin XL 15 mg at night and then also with Myrbetriq. She states that her catheter never falls out. Patient Active Problem List Diagnosis ??? Hypertension ??? DM (diabetes mellitus screen) ??? Bipolar affective disorder ??? Anxiety ??? Headache ??? Morbid obesity ??? Static encephalopathy ??? Cerebral infarction ??? Primary central nervous system vasculitis ??? Former smoker PMH PSH Past Medical History Diagnosis Date ??? HTN (hypertension) ??? DM (diabetes mellitus screen) ??? Smoking ??? Bipolar affective disorder ??? Anxiety ??? Headache(784.0) ??? Lumbar disc disease ??? Static encephalopathy ??? Morbid obesity Past Surgical History Procedure Laterality Date ??? Cervical spine surgery ??? Lumbar spine surgery ??? Foot surgery ??? Wrist surgery Social History Family History History Substance Use Topics ??? Smoking status: Former Smoker -- 0.50 packs/day for 40 years Types: Cigarettes Quit date: 11/29/2010 ??? Smokeless tobacco: Never Used ??? Alcohol Use: No Comment: History of EtOH abuse Family History Problem Relation Age of Onset ??? Kidney Disease Neg Hx Medications Current outpatient prescriptions:aripiprazole (ABILIFY) 15 mg tablet, Take 30 mg by mouth at bedtime., Disp: , Rfl: , ; divalproex (DEPAKOTE) 500 mg EC tablet, Take by mouth 2 times daily., Disp: , Rfl: , ; docusate sodium (COLACE) 100 mg capsule, Take 100 mg by mouth 2 times daily as needed., Disp: ,Rfl: , ; fluticasone (FLONASE) 50 mcg/actuation nasal spray, 50 mcg by nasal route daily as needed.,Disp: , Rfl: , guaifenesin (MUCINEX) 600 mg SR tablet, Take 600 mg by mouth 2 times daily as needed., Disp: , Rfl: , ; ibuprofen (MOTRIN) 200 mg tablet, Take 400 mg by mouth 5 times daily., Disp: , Rfl: , ; insulin aspart (NOVOLOG) 100 unit/mL injection, Inject into the skin 3 times daily before meals. 10units tid, Disp: , Rfl: , insulin glargine (LANTUS SOLOSTAR PEN) 100 unit/mL (3 mL) injection pen, Inject 18 Units into the skin at bedtime., Disp: , Rfl: , ; levothyroxine (SYNTHROID) 100 mcg tablet, Take 100 mcg by mouth daily., Disp: , Rfl: , ; MULTI-VITAMIN ORAL, Take by mouth. , Disp: , Rfl: , ; mycophenolate mofetil (CELLCEPT) 200 mg/mL suspension, Take 0.5 mL by mouth daily. Need labs done every 3 months, Disp: 3 Bottle, Rfl: 1, nitroGLYCERIN (NITROSTAT) 0.4 mg SL tablet, Place 0.4 mg under the tongue every 5 minutes as needed., Disp: , Rfl: , ; oxybutynin (DITROPAN) 5 mg tablet, Take 1 Tab by mouth 3 times daily., Disp: 100 Tab, Rfl: 6, ; pantoprazole (PROTONIX) 40 mg tablet, Take 40 mg by mouth daily., Disp: , Rfl: , ; predniSONE (DELTASONE) 5 mg tablet, Take 2.5 mg by mouth daily. , Disp: , Rfl: , pregabalin (LYRICA) 50 mg capsule, Take 1 Cap by mouth 2 times daily., Disp: 60 Each, Rfl: 4, ; senna (SENNA) 8.6 mg tablet, Take 1 Tab by mouth daily as needed., Disp: , Rfl: , ; simvastatin (ZOCOR) 20 mg tablet, Take 20 mg by mouth daily. , Disp: , Rfl: , ; UNABLE TO FIND, Med Name: antibiotic unable to recall the name, for UTI, Disp: , Rfl: , Allergies Allergies Allergen Reactions ??? Darvocet A500 [Propoxyphene N-Acetaminophen] Nausea And Vomiting ??? Methadone ??? Naproxen Does not work ??? Penicillins ??? Sulfa (Sulfonamide Antibiotics) ??? Tylox [Oxycodone-Acetaminophen] itching She lives at [facility]. Review of Systems: Negative for fevers, chills, chest pain , shortness of breath, nausea, joint pain, muscle pain, dysuria, change in vision, endocrine problems or skin rashes. Positive for loose stools and right sided weakness. Objective/Physical Exam: Vital Signs: There were no vitals taken for this visit. Exam: Constitutional: Alert, in no distress, lying in gurney. Lymph: Neck supple without lymphadenopathy Respiratory: Respirations unlabored. Cardiovascular: Pulse regular. Gastrointestinal: Abdomen soft, non tender. Renal: No CVA tenderness. Genital: [address] [place] [address] catheter in place with a 30 cc balloon. Musculoskeletal: Extremities warm without edema. Right upper and lower extremities with minimal strength. Skin: Skin warm and dry. Impression: 54 year old woman with overactive bladder and stroke with leaking around a Martinez catheter likely secondary to detrusor contractions. We discussed options including increasing the dose of anticholinergic versus intradetrusor Botox injections and the risks involved with each of these options. Suggestions/Recommendations: Stop Myrbetriq. Oxybutynin XL 15 mg Q 12 hours. If this is ineffective, she would be interested in pursuing Botox injections. This would also allow more thorough evaluation of the urethra and bladder neck, which I am unable to carry out today. She will be returning to [place], [place] in two days, which is near [place], [place]. Thank you for consulting us in the care of Ginger Barrera. We will, of course, continue to keep you informed of the patient's urological care and the results of our further evaluation. Jimbo Peralta MD documented in this encounter Plan of Treatment Upcoming Encounters Date Type Specialty Care Team Description 06/13/2022 Appointment Radiology 06/13/2022 Office Visit Urology Reji Foster MD [address] [facility], [facility], [address] [place], [place] [address] (Wo rk) documented as of this encounter Visit Diagnoses Diagnosis Unspecified urinary incontinence - Prima ry documented in this encounter Care Teams Nursing Program Director Relationship Specialty Start Date End Date Lamberto Henderson MD PCP - General 07/17/11 03/21/16 [address] [facility] [address] [place] [address] documented as of this encounter
--- OUTSIDE RECORDS SUMMARY | 2022-03-17 00:39 | XMS_ITS | Encounter Summary ---
:1960 Author Organization [facility] Address [address] [place] [address] Care Team Providers Name Role Phone Lamberto Henderson MD Primary Care Provider Reason for Visit Reason Comments Joint Pain legs and arms painful so she is reluctent to get up/ was to have a CT scan but unable to Medication Management not sure if Cellcept is help ing Medication Questions needs something for her nerv es and her pain levels Encounter Details Date Type Department Care Team Description 04/10/2013 Office Visit [facility] Norbert Pak Chi, MD Vasculitis, primary PROOF SORTER ([facility]) (Prima ry Dx); Rheumatology & [address] [place] [address] DM (diabete s mellitus screen); Immunology - [facility] Cere[facility] infarction ([facility] [place] Right knee pain; [address] [facility], [address] Pain in both feet [place], [place] [id number] [place] [phone] (Wo rk) Social History Tobacco Use Types Packs/Day Years Used Date Former Smoker Cigarettes 0.5 40 Quit: 11/30/19 11 Smokeless Tobacco: Never Used Alcohol Use Standard Drinks/Week Comments Yes [id number] (1 standard drink = 0.6 oz pure alcohol) Sex Assigned at Date Recorded Not on file documented as of this encounter Last Filed Vital Signs Vital Sign Reading Time Taken Comments Blood Pressure 100/68 04/10/2013 1543 EDT Pulse 88 04/10/2013 1543 EDT Temperature - - Respiratory Rate - [...] Instructions Patient InstructionsNorbert Pak Chi, MD - 04/10/2013 16:04 EDT Decrease Cellcept to 100 mg daily or 1/2 milliliter daily for one month, then can stop. Keep Prednisone at 2.5 mg daily. Try taking ibuprofen 3 tabs (600 mg) with one Tramadol tab 3 times a day with the meals. documented in this encounter Ordered Prescriptions Prescription Sig Dispensed Refills Start Date End Date mycophenolate mofetil Take 1 mL by mouth 3 Bottle 1 201206/12/2013 (CELLCEPT) 200 mg/mL daily. Need labs suspensionIndications: done every 3 months Vasculitis, primary PROOF SORTER ([facility]) ([facility]) documented in this encounter Progress Notes Norbert Pak Chi, MD - 04/10/2013 1535 EDT Images from the original note were not included. Subjective: Patient ID: Ginger Barrera is an 52 y.o. female. Chief Complaint Patient presents with ??? Joint Pain legs and arms painful so she is reluctent to get up/ was to have a CT scan but unable to ??? Medication Management not sure if Cellcept is helping ??? Medication Questions needs something for her nerves and her pain levels HPI Comments: (History obtained from her son and partly from the patient) Complains of pain in the Rleg and bilat feet for past year. Still on prednisone 2.5 mg daily and has tapered CellCept down to 200 mg daily. No stroke symptoms. Was doing exercises with physical therapy- was standing at the sinkand exercising then stopped due to pt not wanting to move due to leg pains and subjective weakness. Ibuprofen 2 tabs when necessary does not help the knee and feet pains. Tramadol when necessary does not help either. Tried to undergo CT angiogram of the brain recently which was unsuccessful because they could not gain IV access to administer contrast. Denies any other joint pains or swelling. AM stiffness: Feet are painful. Physical activity: Very sedentary- sits or lays in bed all day. Patient Active Problem List Diagnoses ??? Hypertension ??? DM (diabetes mellitus screen) ??? Bipolar affective disorder ??? Anxiety ??? Headache ??? Morbid obesity ??? Static encephalopathy ??? Cerebral infarction ??? Primary central nervous system vasculitis ??? Former smoker Past Surgical History Procedure Date ??? Cervical spine surgery ??? Lumbar spine surgery ??? Foot surgery ??? Wrist surgery Social History Substance Use Topics ??? Smoking status: Former Smoker -- 0.5 packs/day for 40 years Types: Cigarettes Quit date: 11/29/2010 ??? Smokeless tobacco: Never Used ??? Alcohol Use: 1.0 oz/week 2 drink(s) per week Outpatient Prescriptions Marked as Taking for the 04/10/13 encounter (Office Visit) with Norbert Pak Chi, MD Medication Sig Dispense Refill ??? mycophenolate mofetil (CELLCEPT) 200 mg/mL suspension Take 1 mL by mouth daily. Need labs done every 3 months 3 Bottle 1 ??? predniSONE (DELTASONE) 5 mg tablet Take 2.5 mg by mouth daily. ??? fluticasone (FLONASE) 50 mcg/actuation nasal spray 50 mcg by nasal route daily as needed. ??? simvastatin (ZOCOR) 20 [...] 30 mg by mouth at bedtime. ??? senna (SENNA) 8.6 mg tablet Take 1 Tab by mouth daily as needed. ??? docusate sodium (COLACE) 100 mg capsule Take 100 mg by mouth 2 times daily as needed. ??? zolpidem (AMBIEN) 5 mg tablet Take 1 Tab by mouth at bedtime as needed for Sleep. 1 Tab 0 ??? divalproex (DEPAKOTE) 500 mg EC tablet Take by mouth 2 times daily. ??? levothyroxine (SYNTHROID) 100 mcg tablet Take 100 mcg by mouth daily. ??? insulin glargine (LANTUS SOLOSTAR PEN) 100 unit/mL (3 mL) injection pen Inject 18 Units into theskin at bedtime. ROS - See HPI REVIEW OF SYSTEMS: Yes No Yes No Fever x Joint pain leg Fatigue x Muscle pain feet Night sweats x Morning stiffness x Weight change x If yes, duration Gain or loss? Numbness/tingling feet x Eye discomfort x Headaches x Mouth/Nose sores x Muscle weakness x Chest pain x Burning on urination x Palpitations x Dark/bloody urine x Shortness of breath x Frequent urination x Cough x Trouble sleeping x Nausea/vomiting x Change in mood x Stomach pains/cramps x Nervous or anxious x Blood in stools x Sad or depressed x Diarrhea x Skin rash/changes x Constipation x Sun induced rash x Itching x Hand/Foot color change w/cold x Hair Loss x Objective: BP 100/68 Pulse 88 Physical Exam Vitals reviewed. Constitutional: She is [...] hepatomegaly. There is no tenderness. Morbidly obese Musculoskeletal: A complete msk exam including bilateral upper and lower extremities was done and was normal except for abnormal findings shown on homonculus. Neurological: She is alert and oriented to person, place, and time. No cranial nerve deficit. Gait normal. Dysarthric; R hemiplegia; able to follow commands. Skin: No rash noted. Psychiatric: Her speech is delayed and slurred. Will request most recent labs from [facility]. 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 Assessment: Plan: Ginger was seen today for joint pain, medication management and medication questions . Diagnoses and associated orders for this visit: Vasculitis, primary rn labor delivery No strokelike symptoms or decline in neurologic status despite decrease in CellCept and prednisone over the past year. Last summer her angiogram showed reversal of the basilar artery narrowing. Attempt at repeat CT angiogram unsuccessful this week. According to Dr. Garcia's November clinic note- he would like patient tapered off immunosuppression andthen followed by serial CT angiograms for recurrence [...] the patient has been stable. Will monitor. - mycophenolate mofetil (CELLCEPT) 200 mg/mL suspension; Take 1 mL by mouth daily. Need labs done every 3 months Dm (diabetes mellitus screen) The patient's son reports elevated blood glucoses. DM may be easier to control on lowered prednisone doses. Cerebral infarction Past stroke resulting in right hemiplegia. Patient advised to restart strengthening and range of motion exercises. Right knee and feet pains Patient has had long-standing right lower extremity pain. Suspect associated with her stroke and partly due to osteoarthritis in the knee. Advised patient take ibuprofen 600 mg along with one tramadol 3 times a day with her meals; continueher proton pump inhibitor to protect the stomach. Barriers to learning identified: No Patient verbalizes understanding and agrees with plan Yes F/u 5 mos. Norbert Pak MD documented in this encounter Plan of Treatment Upcoming Encounters Date Type Specialty Care Team Description 06/13/2022 Appointment Radiology 06/13/2022 Office Visit Urology Reji Foster MD [address] [place] [address] [facility], [facility], [address] [place], [place] [address] (Wo rk) documented as of this encounter Visit Diagnoses Diagnosis Vasculitis, primary PROOF SORTER (HCC-CMS) ([facility]) - Primary Arteritis, unspecified DM (diabetes mellitus screen) Screening for diabetes mellitus Cerebral infarction (HCC) Unspecified cerebral artery occlusion wi th cerebral infarction Right knee pain Pain in joint, lower leg Pain in both feet Pain in limb documented in this encounter Discontinued Medications Medication Sig Discontinue Reason Start Date End Date mycophenolate mofetil Take 2.5 mL by Order modification 08/16/2011 04/10/2013 (CELLCEPT) 200 mg/mL mouth 2 times suspensionIndications: daily. Need labs Vasculitis, primary PROOF SORTER done every 3 (HCC-CMS) ([facility]) months documented as of this encounter Care Teams Gem Cutter Relationship Specialty Start Date End Date Lamberto Henderson MD PCP - General 07/17/11 03/21/16 [address] [facility] [address] [place] [address] documented as of this encounter
--- OUTSIDE RECORDS SUMMARY | 2022-03-17 00:40 | XMS_ITS | Encounter Summary ---
:1960 Author Organization [facility] Address [address] [place] [address] Care Team Providers Name Role Phone Lamberto Henderson MD Primary Care Provider Reason for Visit Reason Onset Date Comments Appointment Related 07/26/2011 Encounter Details Date Type Department Care Team Description 07/26/[address] [facility] Ginger Soria, [place] ointment Related Rehabilitation Therapy - PT [address] [address] [phone] Social History Tobacco Use Types Packs/Day Years Used Date Former Smoker Cigarettes 0.5 40 Quit: 11/30/19 11 Smokeless Tobacco: Never Used Alcohol Use Standard Drinks/Week Comments Yes [id number] (1 standard drink = 0.6 oz pure [...] this encounter Miscellaneous Notes Telephone Encounter - Dary Horner PT - 02/23/2012 1017 EDT No note completed by employee. documented in this encounter Plan of Treatment Upcoming Encounters Date Type Specialty Care Team Description 06/13/2022 Appointment Radiology 06/13/2022 Office Visit Urology Reji Foster MD [address] [place] [address] [facility], [facility], [address] [place], [place] [address] (Wo rk) documented as of this encounter Visit Diagnoses Not on filedocumented in this encounter Care Teams Automatic Fancy Machine Operator Relationship Specialty Start Date End Date Lamberto Henderson MD PCP - General 07/17/11 03/21/16 [address] [facility] [address] [place] [address] documented as of this encounter
--- OUTSIDE RECORDS SUMMARY | 2022-03-17 00:40 | XMS_ITS | Encounter Summary ---
:1960 Author Organization [facility] Address [address] [place] [address] Care Team Providers Name Role Phone Unknown, Provider Primary Care Provider Encounter Details Date Type Department Care Team Description 03/31/2011 Results Only [facility] Andrzej Chaney, Laboratory Services - Liza MATT [address] [place] [address] [place], [place] [phone] [phone] (Wo rk) Social History Tobacco Use Types Packs/Day Years Used Date Former Smoker Cigarettes 0.5 40 Quit: 11/30/19 11 Smokeless Tobacco: Never Used Alcohol Use Standard Drinks/Week Comments Yes [id number] (1 standard drink = 0.6 oz pure [...] Office Visit Urology Reji Foster MD [address] [facility] srinivas Chapman, [address] [place], [place] [address] (Wo rk) documented as of this encounter Procedures Procedure Name Priority Date/Time Associated Comments Diagnosis COMPLETE BLOOD COUNT Routine 03/31/2011 19:47 Res ults for this AND DIFFERENTIAL EDT procedure a re in the results section. COMPREHENSIVE Routine 03/31/2011 19:47 Results fo r this METABOLIC PANEL (CMP) EDT proced ure are in the results section. documented in this encounter Results (ABNORMAL) COMPREHENSIVE METABOLIC PANEL (CMP) (03/31/2011 19:47 EDT) Pathologist Sig nature Potassium 4.7 3.5 - 5.0 mEq/L [facility] Sodium 138 136 - 145 mEq/L [facility] Chloride 104 96 - 110 mEq/L [facility] CO2 28 24 - 32 mEq/L [facility] Total Alkaline 52 38 - 126 U/L [facility] Phosphatase Bilirubin, Total <0.5 0.2 - 1.3 mg/dl [facility] AST 49 (H) 15 - 46 U/L [facility] ALT 59 (H) 9 - 52 U/L [facility] Albumin 3.3 (L) 3.4 - 4.9 g/dl [facility] Total Protein 6.8 6.5 - 8.3 g/dl [facility] Creatinine 0.56 (L) 0.7 - 1.5 mg/dl [facility] GFR, Calculated >60 ml/min/1.73m2 [facility] BUN 13 10 - 26 mg/dl [facility] Calcium 9.4 8.5 - 10.5 [facility] mg/dl Calculated Calcium 10.5 8.5 - 10.5 [facility] mg/dl Glucose, Serum 128 (H) 70 - 100 mg/dl [facility] Fasting? Unknown [facility] Specimen Performing Organization Address City/State/ZIP Code Phon e Number [facility] [address] [place] [address] SERVICES [facility] [address] [place] [address] HEMAGRAM AND DIFFERENTIAL (03/31/2011 19:47 EDT) Pathologist Sig nature WBC 5.94 4.0 - 12.4 K/cmm [facility] RBC 3.88 3.86 - 5.04 M/cmm [facility] Hemoglobin 12.8 11.6 - 15.2 gm/dl [facility] HCT 36.7 34.9 - 44.4 % [facility] MCV 94 81 - 98 fl [facility] MCH 33.0 26.7 - 33.3 pg [facility] MCHC 34.9 32.1 - 35.9 gm/dl [facility] PLT 175 141 - 320 K/cmm [facility] RDW-CV 13.7 11.7 - 14.6 % [facility] Neutrophils 71.0 45.5 - 79.7 % [facility] Lymphocytes 20.4 15.0 - 46.8 % [facility] Monocytes 6.9 1.8 - 12.0 % [facility] Eosinophils 1.2 0.6 - 6.9 % [facility] Basophils 0.5 0.2 - 1.4 % [facility] ABS Neutrophils 4.22 2.20 - 8.85 K/cmm [facility] ABS Lymphs 1.21 1.09 - 3.30 K/cmm [facility] ABS Monocytes 0.41 0.1 - 0.8 K/cmm [facility] ABS Eosinophils 0.07 0.03 - 0.61 K/cmm [facility] ABS Basophils 0.03 0.01 - 0.11 K/cmm [facility] Type of Diff: Automated [facility] Specimen Performing Organization Address City/State/ZIP Code Phon e Number [facility] [address] [place] [address] SERVICES [facility] [address] [place] [address] documented in this encounter Visit Diagnoses Not on filedocumented in this encounter Care Teams Insole And Outsole Preparer Relationship Specialty Start Date End Date Unknown, Provider, PCP - General 12/08/10 07/16/11 documented as of this encounter
--- OUTSIDE RECORDS SUMMARY | 2022-03-17 00:40 | XMS_ITS | Encounter Summary ---
:1960 Author Organization [facility] Address [address] [place] [address] Care Team Providers Name Role Phone Lamberto Henderson MD Primary Care Provider Reason for Visit Reason Onset Date Comments Appointment Related 10/16/2012 called patient, yan coleman appt for 11/05 at 2pm and informed her that I faxed the order request for her transportation to [facility]. Encounter Details Date Type Department Care Team Description 10/16/2012 Telephone [facility] Andrzej Garcia, Appoin tment Related Neurology - S Koby kiran MD (called patient, 1 [facility] confirmed appt for 11/05 [place], [place] [id number] [place] [address] at 2pm and informed her [phone] that I faxed the order [phone] request for her (Work) transportation to [facility].) Social History Tobacco Use Types Packs/Day Years Used Date Former Smoker Cigarettes 0.5 40 Quit: 11/30/19 11 Smokeless Tobacco: Never Used Alcohol Use Standard Drinks/Week Comments Yes [id number] (1 standard drink = 0.6 oz pure [...] Notes Telephone Encounter - Cindy Martinez - 10/16/2012 1156 EST called patient, confirmed appt for 11/05 at 2pm and informed her that I faxed the order request for her transportation to [facility]. documented in this encounter Plan of Treatment Upcoming Encounters Date Type Specialty Care Team Description 06/13/2022 Appointment Radiology 06/13/2022 Office Visit Urology Reji Foster MD [address] [place] [address], [address] [place], [place] [phone] (Wo rk) documented as of this encounter Visit Diagnoses Not on filedocumented in this encounter Care Teams Stereoptician Relationship Specialty Start Date End Date Lamberto Henderson MD PCP - General 07/17/11 03/21/16 [address] [facility] [address] [place] [phone] documented as of this encounter
--- OUTSIDE RECORDS SUMMARY | 2022-03-17 00:40 | XMS_ITS | Encounter Summary ---
:1960 Author Organization [facility] Address [address] [place] [address] Care Team Providers Name Role Phone Lamberto Henderson MD Primary Care Provider Reason for Visit Reason Comments Follow-up Encounter Details Date Type Department Care Team Description 03/18/2012 Office Visit [facility] Andrzej Garcia Primar y SPECIAL LOAN OFFICER vasculitis Adult Neurology - Chandrakant MATT ([facility]) (Primary Dx) [address] [phone] Social History Tobacco Use Types Packs/Day Years Used Date Former Smoker Cigarettes 0.5 40 Quit: 11/30/19 11 Smokeless Tobacco: Never Used Alcohol Use Standard Drinks/Week Comments Yes [id number] (1 standard drink = 0.6 oz pure alcohol) Sex Assigned at Date Recorded Not on file documented as of this encounter Functional Status Cognitive Status Response Date of Assessment Because of a physical, mental, or emotional condition, do Ye s 12/10/2010 you have serious difficulty concentrating, remembering, or making decisions? (5 years old or older) documented as of this encounter Discharge Disposition Disposition Code Departure Means Destination Auto Discharge documented in this encounter Progress Notes Andrzej Garcia MD - 03/18/2012 1506 EDT Subjective: Patient ID: Ginger Barrera is an 51 y.o. female. Chief Complaint Patient presents with ??? Follow-up HPI Seen today with her son in routine follow-up. Her son has developed an inguinal hernia and her is unable to lift her, so she will be moved (temporarily) into a care home beginning tomorrow. She has had no new stroke-like events and is otherwise doing the same. Perhaps she gets less physicalactivity, and spends most of each day in bed. Her PT/OT recently stopped, and she now relies on her son and to both get her up to toilet. She additionally complains of difficulty sleeping, withthe Ambien not helping as much as it used to. Patient Active Problem List Diagnoses ??? HTN (hypertension) ??? DM (diabetes mellitus screen) ??? Bipolar affective disorder ??? Anxiety ??? Headache ??? Morbid obesity ??? Static encephalopathy ??? CVA (cerebral infarction) ??? Vasculitis, primary SPECIAL LOAN OFFICER ??? Former smoker Past Medical History Diagnosis [...] Use: 1.0 oz/week 2 drink(s) per week Current Outpatient Prescriptions on File Prior to Visit Medication Sig Dispense Refill ??? MULTI-VITAMIN ORAL Take by mouth. ??? predniSONE (DELTASONE) 1 mg tablet Take 4 Tabs by mouth daily. 120 Each 5 ??? mycophenolate mofetil (CELLCEPT) 200 mg/mL suspension Take 2.5 mL by mouth 2 times daily. Need labs done every 3 months 2 Bottle 4 ??? insulin aspart (NOVOLOG) 100 unit/mL injection Inject into the skin 3 times daily before meals. 8 u AM, 15 u noon, 10 5PM ??? oxybutynin (DITROPAN) 5 mg tablet Take 1 Tab by mouth 3 times daily. 100 Tab 6 ??? insulin regular (NOVOLIN R PEN FILL) 100 unit/mL injection pen Inject into the skin daily. 30 units ??? pantoprazole (PROTONIX) 40 mg tablet Take 40 mg by mouth daily. ??? potassium chloride (KLOR-CON) 20 mEq packet Take 20 mEq by mouth 2 times daily. ??? ibuprofen (MOTRIN) 200 mg tablet [...] mouth 2 times daily as needed. ??? MAGNESIUM HYDROXIDE (MILK OF MAGNESIA ORAL) Take by mouth daily as needed. ??? tramadol (ULTRAM) 50 mg tablet Take 100 mg by mouth every 6 hours as needed. ??? bisacodyl (DULCOLAX) [address] 10 mg rectally every 48 hours as needed. ??? predniSONE (DELTASONE) 5 mg tablet Take 1 Tab by mouth daily. 1 Tab 0 ??? thiamine (VITAMIN B1) 100 mg tablet Take 1 Tab by mouth daily. 1 Tab 0 ??? zolpidem (AMBIEN) 5 mg tablet Take 1 Tab by mouth at bedtime as needed for Sleep. 1 Tab 0 ??? divalproex (DEPAKOTE) 500 mg EC tablet Take by mouth 2 times daily. ??? levothyroxine (SYNTHROID) 100 mcg tablet Take 100 mcg by mouth daily. ??? insulin glargine (LANTUS SOLOSTAR PEN) 100 unit/mL (3 mL) injection pen Inject 8 Units into the skin at bedtime. ??? atorvastatin (LIPITOR) 10 mg tablet Take 10 mg by mouth daily. Allergies Allergen Reactions ??? Darvocet A500 (Propoxyphene N-Acetaminophen) Nausea And Vomiting ??? Methadone ??? Naproxen Does not work ??? Penicillins ??? Sulfa(Sulfonamide Antibiotics) ??? Tylox (Oxycodone-Acetaminophen) itching ROS Objective: There were no vitals taken for this visit. Physical Exam Neurologic Exam Flattened affect with poor eye contact. Still tends to lift her arms when nervous (which she did several times today). Interactive, but doesn't say much, with her son adding a fair amount of detail, although she will reply to direct questions. No apparent aphasia. EOMI without nystagmus. B facial weakness (mild). R hemiparesis, with B dysmetria. She has an AFO on. She can extend the R LE at knee and hip, but has a lot weakness on flexion. She is not able to do much with the R hand, but can extend and flex a bit at the elbow. No sensory changes. Assessment: Posterior circulation cerebral infarction, felt secondary to SPECIAL LOAN OFFICER vasculitis. She has been treated for about a year with mycophenylate and prednisone for about a year now without clinical recurrence. Perhaps it is time to repeat the CTA. If it looks the same or better we could opt to wean her immunosuppressants and repeat CTA after 6 months. Plan: Repeat CTA head. Follow up with Dr. Pak (I discussed this with her today). Ginger was seen today for follow-up. Diagnoses and associated orders for this visit: Primary frame table operator vasculitis - CT ANGIOGRAM HEAD documented in this encounter Plan of Treatment Upcoming Encounters Date Type Specialty Care Team Description 06/13/2022 Appointment Radiology 06/13/2022 Office Visit Urology Reji Foster MD [address] [place] [address], [address] [place], [place] [address] (Wo rk) documented as of this encounter Procedures Procedure Name Priority Date/Time Associated Diagnosis Comme nts CT ANGIO HEAD W 05/01/2012 11:46 Results for this CONTRAST EDT procedure are i n the results section. documented in this encounter Results CT ANGIO HEAD (05/01/2012 11:46 EDT) Anatomical Region Laterality Modality Other Specimen Narrative [facility] - 05/01/2012 13:44 EDT CTA HEAD May 01, 2012 Indication: Followup SPECIAL LOAN OFFICER vasculitis. Comparison: December 28, 2010. Technique: Contrast enhanced CT angiography of the [place] was performed with multiplanar and three-dim ensional reformations. 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 Previously noted narrowing of the basila r artery has resolved. No intracranial arterial stenosis is apprec iated on today's study. No aneurysm or vascular malformation is not ed. Impression: Interval resolution of narrowing of the basilar artery which does suggest a reversible cause such as vascu litis or vasospasm on the prior study in contrast to atherosclerot ic stenosis. Procedure Note 05/01/2012 CTA HEAD May 01, 2012 Indication: Followup SPECIAL LOAN OFFICER vasculitis. Comparison: December 28, 2010. Technique: Contrast enhanced CT angiography of the [place] was performed with multiplanar and three-dim ensional reformations. 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 Previously noted narrowing of the basila r artery has resolved. No intracranial arterial stenosis is apprec iated on today's study. No aneurysm or vascular malformation is not ed. Impression: Interval resolution of narrowing of the basilar artery which does suggest a reversible cause such as vascu litis or vasospasm on the prior study in contrast to atherosclerot ic stenosis. Performing Organization Address City/State/ZIP Code Phon e Number [facility] documented in this encounter Visit Diagnoses Diagnosis Primary SPECIAL LOAN OFFICER vasculitis (HCC-CMS) (HCC) - Primary Arteritis, unspecified documented in this encounter Care Teams Internet Marketing Consultant Relationship Specialty Start Date End Date Lamberto Henderson MD PCP - General 07/17/11 03/21/16 [address] [facility] [address] [place] [phone] documented as of this encounter
--- OUTSIDE RECORDS SUMMARY | 2022-03-17 00:40 | XMS_ITS | Encounter Summary ---
:1960 Author Organization [facility] Address [address] [place] [address] Care Team Providers Name Role Phone Lamberto Henderson MD Primary Care Provider Reason for Visit Reason Comments Medication Management knee painful/ right side is the bothersome side Encounter Details Date Type Department Care Team Description 05/01/2012 Office Visit [facility] Norbert Pak Chi, MD Vasculitis, primary DIRECTOR VETERINARY ([facility]); Rheumatology & [address] [place] CVA (cerebr al infarction); Immunology - [facility] Diabetes mellitus ([facility]); [facility], [facility] sed rate [address] [facility], [address] [place], [place] [id number] [place] [address] [phone] (Wo rk) Social History Tobacco Use Types Packs/Day Years Used Date Former Smoker Cigarettes 0.5 40 Quit: 11/30/19 11 Smokeless Tobacco: Never Used Alcohol Use Standard Drinks/Week Comments Yes [id number] (1 standard drink = 0.6 oz pure alcohol) Sex Assigned at Date Recorded Not on file documented as of this encounter Last Filed Vital Signs Vital Sign Reading Time Taken Comments Blood Pressure 110/72 05/01/2012 1255 EDT Pulse 80 05/01/2012 1255 EDT Temperature - - Respiratory Rate 16 05/01/2012 1255 EDT Oxygen Saturation - - Inhaled Oxygen Concentration - - Weight 99.8 kg (220 lb) 05/01/2012 1255 EDT Height 165.1 cm (5' 5) 05/01/2012 1255 EDT per care gi cristhian Body Mass Index 36.61 05/01/2012 1255 EDT documented in this encounter Functional Status Cognitive Status Response Date of Assessment Because of a physical, mental, or emotional condition, do Ye s 12/10/2010 you have serious difficulty concentrating, remembering, or making decisions? (5 years old or older) documented as of this encounter Patient Instructions Patient InstructionsNorbert Pak Chi, MD - 05/01/2012 13:14 EDT Decrease Prednisone to 3 mg a day and stay at that dose until next appointment with us. documented in this encounter Progress Notes Norbert Pak Chi, MD - 05/01/2012 1257 EDT Images from the original note were not included. Subjective: Patient ID: Ginger Barrera is an 51 y.o. female. Chief Complaint Patient presents with ??? Medication Management knee painful/ right side is the bothersome side HPI Comments: Has been in care home for past 2 months, due to her son needing hernia sugery and not being able to care for her; being d/c next week. No new strokes. She cannot care for herself. Chronic weakness on right side. R knee is chronicly painful; relieved by laying in bed. Has not had any new neurologic events. Denies any other joint pains or swelling. AM stiffness: denies Physical activity: Is in bed most of the day due to low back pain after prolonged sitting. Patient Active Problem List Diagnoses ??? HTN (hypertension) ??? DM (diabetes mellitus screen) ??? Bipolar affective disorder ??? Anxiety ??? Headache ??? Morbid obesity ??? Static encephalopathy ??? CVA (cerebral infarction) ??? Vasculitis, primary DIRECTOR VETERINARY ??? Former smoker Past Surgical History Procedure Date ??? Cervical spine surgery ??? Lumbar spine surgery ??? Foot surgery ??? Wrist surgery Outpatient Prescriptions Marked as Taking for the 05/01/12 encounter (Office Visit) with Norbert Pak Chi, MD Medication Sig Dispense Refill ??? fluticasone (FLONASE) 50 mcg/actuation nasal spray 50 mcg by Nasal route daily. ??? guaifenesin (MUCINEX) 600 mg SR tablet Take 600 mg by mouth 2 times daily. ??? simvastatin (ZOCOR) 20 mg tablet Take 20 mg by mouth daily. ??? hydrocodone-acetaminophen (NORCO) 5-325 mg per tablet Take 1 Tab by mouth 4 times daily as needed. ??? MULTI-VITAMIN ORAL Take by mouth. ??? [...] injection pen Inject into the skin daily. 20 units ??? pantoprazole (PROTONIX) 40 mg tablet [...] theskin at bedtime. Review of Systems Constitutional: Positive for weight loss (30 lbs over 2 mos). - See HPI REVIEW OF SYSTEMS: (taken by MA/ nurse and which I reviewed- CCL) Yes No Yes No Fever x Joint pain x Fatigue x Muscle pain x Night sweats x Morning stiffness x Weight change x If yes, duration All day Gain or loss? loss Numbness/tingling x Eye discomfort itch x Headaches x Mouth/Nose sores x Muscle [...] w/cold x Hair Loss x Objective: BP 110/72 Pulse 80 Resp 16 Ht 165.1 cm (65) Wt 99.791 kg (220 lb) BMI 36.61 kg/m2 Physical Exam Vitals reviewed. Constitutional: She appears well-nourished. No distress. Obese mid aged female sitting in wheelchair, accompanied by 2 attendants. HENT: Head: Normocephalic and atraumatic. Mouth/Throat: Oropharynx is clear and moist. Eyes: Conjunctivae and EOM are normal. Pupils are equal, round, and reactive to light. Neck: No thyromegaly present. Cardiovascular: Normal rate, regular rhythm and normal heart sounds. No murmur heard. Pulmonary/Chest: Breath sounds normal. No respiratory distress. She has no wheezes. She has no rales. Abdominal: Soft. There is no hepatomegaly. There is no tenderness. Musculoskeletal: A complete msk exam including bilateral upper and lower extremities was done and was normal except for abnormal findings shown on homonculus. Neurological: She is alert. No cranial nerve deficit. Gait (unable to walk; has brace on R lower leg) abnormal. Dysarthric; R hemiplegia; able to follow commands. Skin: No rash noted. Psychiatric: She has a normal mood and affect. Her behavior is normal. CTA HEAD May 01, 2012 Comparison: December 28, 2010. 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 Previously noted narrowing of the basilar artery has resolved. No intracranial arterial stenosis is appreciated on today's study. No aneurysm or vascular malformation is noted. Impression: Interval resolution of narrowing of the basilar artery which does suggest a reversiblecause such as vasculitis or vasospasm on the prior study in contrast to atherosclerotic stenosis. 12/09/2010 06:51 04/11/2011 08:30 05/01/2012 12:33 Sed. Rate Westergren 45 (H) 8 74 (H) 05/01/2012 12:33 Sodium 143 Potassium 4.2 CO2 26 Chloride 102 BUN 15 Creatinine 0.51 (L) ALT 19 GFR, Calculated >60 Glucose, Serum 237 (H) Calcium 9.2 Calculated Calcium 10.2 Total Protein 7.5 Albumin 3.4 Total Alkaline Phosphatase 64 AST 24 Bilirubin, Total <0.5 Fasting? NO WBC 5.23 RBC 3.75 (L) Hemoglobin 11.4 (L) HCT 33.9 (L) MCV 90 MCH 30.4 MCHC 33.7 PLT 302 Assessment: Plan: Ginger was seen today for medication management. Diagnoses and associated orders for this visit: Vasculitis, primary coil maker Cva (cerebral infarction) Repeat CT angiogram of the brain shows improvement in previous vascular changes. Patient has not hadany new neurologic events. Dr. Garcia had discussed the patient with me several months ago and implied that patient may be able to slowly wean off her immunosuppressive medications. Will have patient decrease prednisone to 3 mg daily until we see her again. Continue CellCept 500 mg twice a day with every 3 month CBC, CMP monitoring. Diabetes mellitus Poorly controlled diabetes according to recent labs; lowering the prednisone may help blood sugar control. Elevated sed rate Unclear what to make of the elevated sedimentation rate, since patient remains asymptomatic. The sedimentation rate elevation can be seen with infections and is often seen in diabetics. Will monitor for now and make the above changes. Barriers to learning identified: No Patient verbalizes understanding and agrees with plan Yes F/u 4 mos. Norbert Pak MD documented in this encounter Plan of Treatment Upcoming Encounters Date Type Specialty Care Team Description 06/13/2022 Appointment Radiology 06/13/2022 Office Visit Urology Reji Foster MD [address] [place] [address], [facility], [address] [place], [place] [address] (Wo rk) documented as of this encounter Visit Diagnoses Diagnosis Vasculitis, primary DIRECTOR VETERINARY (HCC-CMS) (HCC) Arteritis, unspecified CVA (cerebral infarction) Unspecified cerebral artery occlusion wi th cerebral infarction Diabetes mellitus (HCC) Type II or unspecified type diabetes katya litus without mention of complication, not stated as uncontrolled Elevated sed rate Elevated sedimentation rate documented in this encounter Discontinued Medications Medication Sig Discontinue Reason Start Date End Date atorvastatin (LIPITOR) Take 10 mg by mouth Formulary change 05/01/2012 10 mg tablet daily. bisacodyl (DULCOLAX) 10 Place 10 mg Formulary change 03/31/2011 05/01/2012 mg suppository rectally every 48 hours as needed. MAGNESIUM HYDROXIDE Take by mouth daily Patient Stopped 03/31/2011 05/01/2012 (MILK OF MAGNESIA ORAL) as needed. Taking predniSONE (DELTASONE) Take 1 Tab by mouth Therapy completed 201005/01/2012 5 mg tablet daily. potassium chloride Take 20 mEq by Therapy completed (KLOR-CON) 20 mEq mouth 2 times packet daily. thiamine (VITAMIN B1) Take 1 Tab by mouth Patient Stopped 1 05/01/2012 100 mg tablet daily. Taking tramadol (ULTRAM) 50 mg Take 100 mg by Therapy completed 05/01/2012 tablet mouth every 6 hours as needed. documented as of this encounter Historical Medications This list may reflect changes made after this encounter. Medication Sig Dispensed Refills Start Date End Date hydrocodone-acetaminophen Take 1 Tab by mouth 0 12/17/2012 (NORCO) 5-325 mg per 4 times daily as tablet needed. simvastatin (ZOCOR) 20 mg Take 20 mg by mouth at bedtime 0 11/02/2018 tablet guaifenesin (MUCINEX) 600 Take 600 mg by mouth 0 02/12/2015 mg SR tablet 2 times daily as needed. fluticasone (FLONASE) 50 50 mcg by nasal 0 02/12/2015 mcg/actuation nasal spray route daily as needed. added in this encounter Care Teams Cotton Breeder Relationship Specialty Start Date End Date Lamberto Henderson MD PCP - General 07/17/11 03/21/16 [address] [facility] [address] [place] [address] documented as of this encounter
--- OUTSIDE RECORDS SUMMARY | 2022-03-17 00:40 | XMS_ITS | Encounter Summary ---
:1960 Author Organization [facility] Address [address] [place] [address] Care Team Providers Name Role Phone Unknown, Provider Primary Care Provider Encounter Details Date Type Department Care Team Description 03/22/2011 Results Only [facility] Andrzej Chaney, Laboratory Services - Liza MATT [address] [place] [address] [place], [place] [phone] (Wo rk) Social History Tobacco Use Types Packs/Day Years Used Date Current Every Day Smoker Cigarettes 0.5 40 Alcohol Use Standard Drinks/Week Comments Yes [id number] (1 standard drink = 0.6 oz pure [...] Office Visit Urology Reji Foster MD [address] [facility], [facility], [address] [place], [place] [address] (Wo rk) documented as of this encounter Procedures Procedure Name Priority Date/Time Associated Comments Diagnosis COMPLETE BLOOD COUNT Routine 03/22/2011 7:15 Resu lts for this AND DIFFERENTIAL EDT procedure a re in the results section. COMPREHENSIVE Routine 03/22/2011 7:15 Results for this METABOLIC PANEL (CMP) EDT proced ure are in the results section. documented in this encounter Results (ABNORMAL) COMPREHENSIVE METABOLIC PANEL (CMP) (03/22/2011 7:15 EDT) Pathologist Sig nature Potassium 4.4 3.5 - 5.0 mEq/L [facility] Sodium 141 136 - 145 mEq/L [facility] Chloride 104 96 - 110 mEq/L [facility] CO2 28 24 - 32 mEq/L [facility] Total Alkaline 50 38 - 126 U/L [facility] Phosphatase Bilirubin, Total <0.5 0.2 - 1.3 mg/dl [facility] AST 47 (H) 15 - 46 U/L [facility] ALT 54 (H) 9 - 52 U/L [facility] Albumin 3.1 (L) 3.4 - 4.9 g/dl [facility] Total Protein 6.0 (L) 6.5 - 8.3 g/dl [facility] Creatinine 0.56 (L) 0.7 - 1.5 mg/dl [facility] GFR, Calculated >60 ml/min/1.73m2 [facility] BUN 17 10 - 26 mg/dl [facility] Calcium 9.2 8.5 - 10.5 [facility] mg/dl Calculated Calcium 10.5 8.5 - 10.5 [facility] mg/dl Glucose, Serum 127 (H) 70 - 100 mg/dl [facility] Fasting? Yes [facility] Specimen Performing Organization Address City/State/ZIP Code Phon e Number [facility] [address] [place] [address] SERVICES [facility] [address] [place] [address] (ABNORMAL) HEMAGRAM AND DIFFERENTIAL (03/22/2011 7:15 EDT) Pathologist Sig nature WBC 5.71 4.0 - 12.4 K/cmm [facility] RBC 3.64 (L) 3.86 - 5.04 M/cmm [facility] Hemoglobin 11.9 11.6 - 15.2 gm/dl [facility] HCT 34.3 (L) 34.9 - 44.4 % [facility] MCV 94 81 - 98 fl [facility] MCH 32.7 26.7 - 33.3 pg [facility] MCHC 34.8 32.1 - 35.9 gm/dl [facility] PLT 187 141 - 320 K/cmm [facility] RDW-CV 14.3 11.7 - 14.6 % [facility] Neutrophils 59.0 45.5 - 79.7 % [facility] Lymphocytes 28.3 15.0 - 46.8 % [facility] Monocytes 9.2 1.8 - 12.0 % [facility] Eosinophils 2.2 0.6 - 6.9 % [facility] Basophils 1.3 0.2 - 1.4 % [facility] ABS Neutrophils 3.37 2.20 - 8.85 K/cmm [facility] ABS Lymphs 1.62 1.09 - 3.30 K/cmm [facility] ABS Monocytes 0.53 0.1 - 0.8 K/cmm [facility] ABS Eosinophils 0.12 0.03 - 0.61 K/cmm [facility] ABS Basophils 0.07 0.01 - 0.11 K/cmm [facility] Type of Diff: Automated [facility] Specimen Performing Organization Address City/State/ZIP Code Phon e Number [facility] [address] [place] [address] SERVICES [facility] [address] [place] [address] documented in this encounter Visit Diagnoses Not on filedocumented in this encounter Care Teams Billing And Quality Technician Relationship Specialty Start Date End Date Unknown, Provider, PCP - General 12/08/10 07/16/11 documented as of this encounter
--- OUTSIDE RECORDS SUMMARY | 2022-03-17 00:40 | XMS_ITS | Encounter Summary ---
:1960 Author Organization [facility] Address [address] [place] [address] Care Team Providers Name Role Phone Lamberto Henderson MD Primary Care Provider Encounter Details Date Type Department Care Team Description 09/02/2012 Orders Only Non [facility] Ancillary Lamberto Henderson, Iron deficiency anemia, Services MD unspecified (Primary [address] Dx) [address] [address] Social History Tobacco Use Types Packs/Day Years Used Date Former Smoker Cigarettes 0.5 40 Quit: 11/30/19 11 Smokeless Tobacco: Never Used Alcohol Use Standard Drinks/Week Comments Yes [id number] (1 standard drink = 0.6 oz pure [...] Urology Reji Foster MD [address] [facility], [facility], [address] [place], [place] [address] (Wo rk) documented as of this encounter Visit Diagnoses Diagnosis Iron deficiency anemia, unspecified - Pr imary documented in this encounter Care Teams Cheese Factory Worker Relationship Specialty Start Date End Date Lamberto Henderson MD PCP - General 07/17/11 03/21/[address] [address] documented as of this encounter
--- OUTSIDE RECORDS SUMMARY | 2022-03-17 00:40 | XMS_ITS | Encounter Summary ---
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, Level 5 Heel lesion [place], [place] [address] [place] [address] [phone] (Wo rk) Social History Tobacco Use Types Packs/Day Years Used Date Former Smoker Cigarettes 0.5 40 Quit: 11/30/19 11 Smokeless Tobacco: Never Used Alcohol Use Standard Drinks/Week Comments Yes 1.295919448467961925 (1 standard drink = 0.6 oz pure alcohol) Sex Assigned at Date Recorded Not on file documented as of this encounter Last Filed Vital Signs Vital Sign Reading Time Taken Comments Blood Pressure 114/68 03/31/2011 1456 EDT Pulse 88 03/31/2011 1456 EDT Temperature - - Respiratory Rate 14 03/31/2011 1456 EDT Oxygen Saturation - - Inhaled Oxygen [...] documented as of this encounter Progress Notes Norbert Pak Chi, MD - 03/31/2011 4393 EDT Images from the original note were not included. Subjective: Patient ID: Ginger Barrera is an 50 y.o. female. Chief Complaint Patient presents with ??? 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. Has received 3 Cytoxan iv infusions thru the infusion center with the last one in February; the nurses in the infusion center had difficulty getting her to the bathroom due to her R hemiparesis. Has a sore on left heel-which is closed and not painful- has been elevating the legs and trying to keep pressure off L heel. Does not do much walking due to R sided weakness and imbalance. Chronic numbness and tingling in feet bother her. Has had 3 past surgeries to R foot. Needs help getting dressed and getting to the toilet; is frequently incontinent due to inability to make it to the bathroom in time. Uses her L hand to feed herself; is chronicly weak on the R. Thinks Cytoxan medicine has helped her speech and mobility,but does not want to continue. Spends her days doing PT and OT. [place] and son [place] 1 week. Denies jt pains or swelling. Patient Active Problem List Diagnoses Code ??? HTN (hypertension) 401.9AF ??? DM (diabetes mellitus screen) V77.1E ??? Bipolar affective disorder 296.80D ??? Anxiety 300.00E ??? Headache 784.0 ??? Morbid obesity 278.01 ??? 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 CVA (cerebral infarction) 434.91FD ??? 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 Former smoker V15.82D Past Medical History Diagnosis Date ??? HTN [...] 1.0 oz/week 2 drink(s) per week Current outpatient prescriptions ordered prior to encounter Medication Sig Dispense Refill ??? aspirin 325 mg tablet Take 1 Tab by mouth daily. 1 Tab 0 ??? insulin aspart (NOVOLOG FLEXPEN) 100 unit/mL injection pen Inject 15 Units into the skin daily with lunch. 1 Device 0 ??? insulin aspart (NOVOLOG FLEXPEN) 100 unit/mL injection pen Inject 20 Units into the skin every 24 hours. 1 Device 0 ??? insulin aspart (NOVOLOG FLEXPEN) 100 unit/mL injection pen Inject 8 Units into the skin daily with breakfast. 1 Device 0 ??? oxybutynin (DITROPAN) 5 mg tablet Take 1 Tab by mouth 2 times daily. 1 Tab 0 ??? predniSONE (DELTASONE) 5 mg tablet Take [...] 100 unit/mL (3 mL) injection pen Inject 5 Units into the skin at bedtime. ??? atorvastatin (LIPITOR) 10 mg tablet Take 10 mg by mouth daily. insulin aspart (NOVOLOG FLEXPEN) 100 unit/mL injection pen; Inject into the skin 3 times daily with meals. 10 units with dinner 8 units with breakfast 15 units with lunch - insulin regular (NOVOLIN R PEN FILL) 100 unit/mL injection pen; Inject into the skin daily. 30 units - enoxaparin (LOVENOX) 40 mg/0.4 mL Syrg; Inject 40 mg into the skin daily. - pediatric multivitamin (PRESTON CHEW VIT) chewable tablet; Take 1 Tab by mouth daily. - pantoprazole (PROTONIX) 40 mg tablet; Take 40 mg by mouth daily. - sulfamethoxazole-trimethoprim (SMZ-TMP DS) 800-160 mg per tablet; Take 1 Tab by mouth three times a week. - potassium chloride (KLOR-CON) 20 mEq packet; Take 20 mEq by mouth 2 times daily. - ibuprofen (MOTRIN) 200 mg tablet; Take 400 mg by mouth 5 times daily. - aripiprazole (ABILIFY) 15 mg tablet; Take 15 mg by mouth at bedtime. - nitroGLYCERIN (NITROSTAT) 0.4 mg SL tablet; Place 0.4 mg under the tongue every 5 minutes as needed. - senna (SENNA) 8.6 mg tablet; Take 1 Tab by mouth daily as needed. - docusate sodium (COLACE) 100 mg capsule; Take 100 mg by mouth 2 times daily as needed. - MAGNESIUM HYDROXIDE (MILK OF MAGNESIA ORAL); Take by mouth daily as needed. - tramadol (ULTRAM) 50 mg tablet; Take 100 mg by mouth every 6 hours as needed. - bisacodyl (DULCOLAX) 10 mg suppository; Place 10 mg rectally every 48 hours as needed. Allergies Allergen Reactions ??? Penicillins ??? Sulfa (Sulfonamide Antibiotics) ??? Darvocet A500 (Propoxyphene N-acetaminophen) Nausea And Vomiting ??? Naproxen Does not work ??? Methadone Review of Systems Constitutional: Negative for fever, chills, weight loss, malaise/fatigue and diaphoresis. HENT: Positive for neck pain (for several days; h/o cervical fx from accident and has had surgery). No oral ulcers No dry mouth Eyes: Negative for pain. No dry eyes Respiratory: Negative for cough and shortness of breath. Cardiovascular: Positive for leg swelling (mild in ankles). Negative for chest pain and palpitations. No raynauds Gastrointestinal: Negative for heartburn, nausea, abdominal pain, diarrhea, constipation and blood in stool. Genitourinary: Negative for dysuria, frequency and hematuria. Musculoskeletal: Negative for myalgias, back pain and joint pain. Denies Am stiffness Skin: Negative for rash and itching. No sun sensitive rashes no psoriasis Neurological: Positive for tingling (in feet) and headaches (occas, mild). Negative for focal weakness. Endo/Heme/Allergies: Does not bruise/bleed easily. Psychiatric/Behavioral: Negative for depression. The patient is not nervous/anxious and does not have insomnia. All other systems reviewed and are negative. - See HPI Objective: BP 114/68 Pulse 88 Resp 14 Physical Exam Vitals reviewed. Constitutional: She is oriented to person, place, and time. She appears well- nourished. No distress. Large midaged female sitting in wheelchair HENT: Head: Normocephalic and atraumatic. Mouth/Throat: Oropharynx is clear and moist. Eyes: Conjunctivae and extraocular motions are normal. Pupils are equal, round, and reactive to light. Neck: No thyromegaly present. Cardiovascular: Normal rate, regular rhythm and normal heart sounds. No murmur heard. Pulmonary/Chest: Breath sounds normal. No respiratory distress. She has no wheezes. She has no rales. Abdominal: Soft. There is no hepatomegaly. No tenderness. Musculoskeletal: A complete msk exam was done and significant findings shown on homonculus. Neurological: She is alert and oriented to person, place, and time. No cranial nerve deficit. Mildly dysarthric; R hemiparesis Skin: No rash noted. Subcut dark, closed, circular lesion at L heel Psychiatric: Her behavior is normal. Flat affect; mask like face CT ANGIO HEAD Dec 28, 2010 Impression: 1. fenestration of the proximal basilar artery. 2. mild narrowing of the distal basilar artery is likely secondary to atherosclerotic disease MR HEAD WO/CONTRAST Dec 20, 2010 Impression: Increasing areas of infarction in the brainstem compared to outside study of December 08, 2010. In addition however there are now also acute appearing infarcts in the inferior left basal ganglia and as well as a small focus deep to the posterior sylvian fissure. These are in a different vascular distributions than the brainstem abnormalities. Multiple areas of subcortical high signal mostlyin the frontal lobes likely related to history of vasculitis. Ref. Range 12/09/2010 06:51 Sed. Rate Westergren Latest Range: 0-30 mm/hr 45 (H) Assessment: Plan: Ginger was seen today for follow-up. 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 Pt is s/p Cytoxan infusions x 3; will switch to oral immunosuppression with Cellcept 50 mg bid withq 3 to 4 mo. CBC, CMP monitoring for toxicity. Instructions written on Rehab paperwork. Con't low dose Prednisone 5 mg daily for now; may start slow taper once she has been on Cellcept for 3 to 4 mos. Pt has future f/u with Neuro- consider updated MRI or Angio of brain? Cva (cerebral infarction) Ischemic and ?vasculitis. No new events. Bipolar affective disorder Status quo per pt. Dm (diabetes mellitus) On Insulin; puts pt at increased risk for infections which is another reason why we will switch from Cytoxan to Cellcept. Heel lesion On Left - may be early decubitus ulcer; pt states Rehab nurses are aware and addressing it. Barriers to learning identified: No Patient verbalizes understanding and agrees with plan Yes F/u 3 to 4 mos. documented in this encounter Plan of Treatment Upcoming Encounters Date Type Specialty Care Team Description 06/13/2022 Appointment Radiology 06/13/2022 Office Visit Urology Reji Foster MD [address] [facility], [address] [place], [place] [address] (Wo rk) documented as of this encounter Visit Diagnoses Diagnosis Vasculitis, primary SCRUM PROJECT MANAGER (HCC-CMS) (HCC) Arteritis, unspecified CVA (cerebral infarction) Unspecified cerebral artery occlusion wi th cerebral infarction Bipolar affective disorder (HCC-CMS) (HC C) Bipolar disorder, unspecified DM (diabetes mellitus screen) Screening for diabetes mellitus Heel lesion Unspecified disorder of skin and subcuta neous tissue documented in this encounter Discontinued Medications Medication Sig Discontinue Reason Start Date End Date aripiprazole (ABILIFY) Take 15 mg by mouth Dose adjustment 12/10/19 11 03/31/2011 10 mg tabletIndications: at bedtime. bipolar disorder in Indications: BIPOLAR remission DISORDER IN REMISSION omeprazole (PRILOSEC) 20 Take 20 mg by mouth Therapy completed 03/31/2011 mg capsule daily. documented as of this encounter Historical Medications This list may reflect changes made after this encounter. Medication Sig Dispensed Refills Start Date End Date bisacodyl (DULCOLAX) 10 Place 10 mg rectally 0 05/01/2012 mg suppository every 48 hours as needed. tramadol (ULTRAM) 50 mg Take 100 mg by mouth 0 05/01/2012 tablet every 6 hours as needed. MAGNESIUM HYDROXIDE (MILK Take by mouth daily 0 0 03/31/2011 05/01/2012 OF MAGNESIA ORAL) as needed. docusate sodium (COLACE) Take 100 mg by mouth 2 times daily 0 03/31/2011 11/02/2018 100 mg capsule senna (SENNA) 8.6 mg Take 1 Tab by mouth daily as needed (constipat ion) 0 03/31/2011 11/02/2018 tablet nitroGLYCERIN (NITROSTAT) Place 0.4 mg under 0 11/02/2018 0.4 mg SL tablet the tongue every 5 minutes as needed. aripiprazole (ABILIFY) 15 Take 30 mg by mouth 0 0 03/31/2011 11/01/2018 mg tablet at bedtime. ibuprofen (MOTRIN) 200 mg Take 400 mg by mouth every 6 hours as nee ded 0 03/31/2011 05/28/2015 tablet potassium chloride Take 20 mEq by mouth 0 05/01/2012 (KLOR-CON) 20 mEq packet 2 times daily. sulfamethoxazole-trimetho Take 1 Tab by mouth 0 0 03/31/2011 08/16/2011 prim (SMZ-TMP DS) 800-160 three times a week. mg per tablet pantoprazole (PROTONIX) Take 40 mg by mouth 0 02/12/2015 40 mg tablet daily. pediatric multivitamin Take 1 Tab by mouth 0 10/17/2011 (PRESTON CHEW VIT) daily. chewable tablet enoxaparin (LOVENOX) 40 Inject 40 mg into 0 08/16/2011 mg/0.4 mL Syrg the skin daily. insulin regular (NOVOLIN Inject into the skin 0 0 03/31/2011 12/17/2012 R PEN FILL) 100 unit/mL daily. 20 units injection pen insulin aspart (NOVOLOG Inject into the skin 0 08/16/2011 FLEXPEN) 100 unit/mL 3 times daily with injection pen meals. 10 units with dinner 8 units with breakfast 15 units with lunch added in this encounter Care Teams Ophthalmology Technician Relationship Specialty Start Date End Date Unknown, Provider, PCP - General 12/08/10 07/16/11 documented as of this encounter
--- OUTSIDE RECORDS SUMMARY | 2022-03-17 00:40 | XMS_ITS | Encounter Summary ---
:1960 Author Organization [facility] Address [address] [place] [address] Care Team Providers Name Role Phone Unknown, Provider Primary Care Provider Lamberto Henderson MD Primary Care Provider Ovidio Linares MD Primary Care Provider [phone] Pio Odonnell MD Primary Care Provider [phone] Pina Taylor MD Primary Care Provider Maricel Deshpande APRN Primary Care Provider [phone] Reason for Visit Reason Onset Date Comments Other 02/23/2011 Pt son called with lea alfredo re: Medicaid. SW returned call. Encounter Details Date Type Department Care Team Description 02/23/2011 Telephone [facility] Lou Ronquillo (Pt son called Management - [facility] [place] [facility] with questions re: [address] [facility] Medicaid[place] [address] call.) [phone] Social History Tobacco Use Types Packs/Day Years Used Date Current Every Day Smoker Cigarettes 0.5 40 Alcohol Use Standard Drinks/Week Comments Yes [id number] (1 standard drink = 0.6 oz pure [...] this encounter Miscellaneous Notes Telephone Encounter - Lou Darby - 02/23/2011 7613 EDT Pt son, Michael Markham, called with questions about Medicaid. 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 SW called Lesa at [facility] and she states that she did not tell the pt's son that he had to have a GED but she did tell him that he would have to have some training from the home health agency. [facility] phone callsfrom the pt son to her. SW called back to [place] and relayed the information from Lesa. SW encouraged him to call Lesa with questions in the future. Pt son was receptive. He also asked about the Medicaid applications for [place] were done while the patient was in the hospital. SW suggested that they call [facility] [employer] to find out the progress on those applications. Lou Darby, [facility] ([id number]) Covering for Niki Abarca, W documented in this encounter Plan of Treatment Upcoming Encounters Date Type Specialty Care Team Description 06/13/2022 Appointment Radiology 06/13/2022 Office Visit Urology Reji Foster MD [address] [facility], [facility], [address] [place] [address] (Wo rk) documented as [...] documented as of this encounter Care Teams Stove Polisher Relationship Specialty Start Date End Date Unknown, Provider, PCP - General 12/08/10 07/16/11 Lamberto Henderson MD PCP - General 07/17/11 03/21/16 [address] [facility] [address] [place] [address] Ovidio Linares MD PCP - General 03/22/16 10/30/[address] [place] [phone] Poi Odonnell MD PCP - General 10/31/18 04/20/21 [address] [facility] [place], [place] [address] Pina Taylor MD PCP - General 04/21/21 10/03/21 [address] [place] [address] Maricel Deshpande, JOSEY PCP - General Geriatric Medicine 10/04/[address] [place] [address] documented as of this encounter
--- OUTSIDE RECORDS SUMMARY | 2022-03-17 00:40 | XMS_ITS | Encounter Summary ---
:1960 Author Organization [facility] Address [address] [place] [address] Care Team Providers Name Role Phone Lamberto Henderson MD Primary Care Provider Reason for Visit Reason Onset Date Comments Appointment Related 08/27/2012 called brandon stafford l appt that was scheduled for 09/10, it has been r escheduled to Oct 08 at 3:30pm Encounter Details Date Type Department Care Team Description 08/27/2012 Telephone [facility] Andrzej Garcia MD Appointment Related Neurology - [address] (called brandon to cancel [address] [place], [place] appt that was scheduled [place], [place] [phone] for 09/10, it has been [phone] rescheduled to Oct 08 (Work) at 3:30pm) Social History Tobacco Use Types Packs/Day Years Used Date Former Smoker Cigarettes 0.5 40 Quit: 11/30/19 11 Smokeless Tobacco: Never Used Alcohol Use Standard Drinks/Week Comments Yes 1.683150276767354402 (1 standard drink = 0.6 oz pure [...] Notes Telephone Encounter - Cindy Martinez - 08/27/2012 1552 EST called brandon to cancel appt that was scheduled for 09/10, it has been rescheduled to Oct 08 at 3:30pm documented in this encounter Plan of Treatment Upcoming Encounters Date Type Specialty Care Team Description 06/13/2022 Appointment Radiology 06/13/2022 Office Visit Urology Reji Foster MD [address] [place] [address], [facility], [address] [place], [place] [address] (Wo rk) documented as of this encounter Visit Diagnoses Not on filedocumented in this encounter Care Teams Multiple Spindle Screw Machine Operator Relationship Specialty Start Date End Date Lamberto Henderson MD PCP - General 07/17/11 03/21/[address] [phone] documented as of this encounter
--- OUTSIDE RECORDS SUMMARY | 2022-03-17 00:40 | XMS_ITS | Encounter Summary ---
:1960 Author Organization [facility] Address [address] [place] [address] Care Team Providers Name Role Phone Lamberto Henderson MD Primary Care Provider Reason for Visit Reason Onset Date Comments Appointment Related 03/19/2012 Encounter Details Date Type Department Care Team Description 03/19/2012 Telephone [facility] Hammad Tilley Chi, MD Appointment Related Rheumatology & [address] [facility] venue Immunology - [facility], [facility], [address] [place] [phone] (Wo rk) Social History Tobacco Use Types Packs/Day Years Used Date Former Smoker Cigarettes 0.5 40 Quit: 11/30/19 11 Smokeless Tobacco: Never Used Alcohol Use Standard Drinks/Week Comments Yes 1.695596142069414562 (1 standard drink = 0.6 oz pure [...] this encounter Miscellaneous Notes Telephone Encounter - Shellie Pop - 03/19/2012 1135 EDT 04/11/2012 SIMON 1:00P PEN KELLIE TILLEY MD,HAMMAD CUEVA RHEU ACC 20 [phone] Left message with RN at custodial who will arrange for transportation elephone Encounter - Shellie Pop - 03/19/2012 1126 EDT Message copied by SHELLIE POP on SunMar 19, 2012 1126 ------ Message from: HAMMAD TILLEY CHI Created: SunMar 19, 2012 1121 Regarding: f/u appt Can someone contact this pt and give her a f/u with me in April or May? She no- showed her May appt, but her neurologist Dr Garcia wants her to f/u at some point. documented in this encounter Plan of Treatment Upcoming Encounters Date Type Specialty Care Team Description 06/13/2022 Appointment Radiology 06/13/2022 Office Visit Urology Reji Foster MD [address] [facility], [address] [place], [place] [address] (Wo rk) documented as of this encounter Visit Diagnoses Not on filedocumented in this encounter Care Teams Crystal Syrup Maker Relationship Specialty Start Date End Date Lamberto Henderson MD PCP - General 07/17/11 03/21/16 [address] [facility] [address] [place] [address] documented as of this encounter
--- OUTSIDE RECORDS SUMMARY | 2022-03-17 00:40 | XMS_ITS | Encounter Summary ---
:1960 Author Organization [facility] Address [address] [place] [address] Care Team Providers Name Role Phone Lamberto Henderson MD Primary Care Provider Reason for Visit Reason Comments Follow-up Encounter Details Date Type Department Care Team Description 07/18/2011 Office Visit [facility] Andrzej Garcia Vascul itis, primary RETAIL SERVICE SPECIALIST (CMS-HCC) (Primary Dx); Adult Neurology - Chandrakant MATT CVA (cerebral infarction) [address] [address] [phone] Social History Tobacco Use Types Packs/Day Years Used Date Former Smoker Cigarettes 0.5 40 Quit: 11/30/19 11 Smokeless Tobacco: Never Used Alcohol Use Standard Drinks/Week Comments Yes [id number] (1 standard drink = 0.6 oz pure alcohol) Sex Assigned at Date Recorded Not on file documented as of this encounter Last Filed Vital Signs Vital Sign Reading Time Taken Comments Blood Pressure 90/58 07/18/2011 1450 EDT Pulse 74 07/18/2011 1450 EDT Temperature - - Respiratory Rate 20 07/18/2011 1450 EDT Oxygen Saturation - - Inhaled Oxygen [...] Sig Dispensed Refills Start Date End Date oxybutynin (DITROPAN) 5 mg Take 1 Tab by mouth 100 Tab 6 07/18/2011 02/12/2015 tabletIndications: CVA 3 times daily. (cerebral infarction) documented in this encounter Progress Notes Andrzej Garcia MD - 07/20/2011 4222 EDT Subjective: Patient ID: Ginger Barrera is an 51 y.o. female. Chief Complaint Patient presents with ??? Follow-up HPI Currently living in [place] with her son and . Son is her primary caregiver. She uses a wheelchair in the house. She is unable to dress, bathe, toilet without assistance. She is very unstable walking even short distances and has fallen several times. She has physical therapists coming out to her house twice weekly. She spends most of her time in bed watching TV. She will get up to eat afew times a day, rarely goes out of the house. Patient Active Problem List Diagnoses ??? HTN (hypertension) ??? DM (diabetes mellitus screen) ??? Bipolar affective disorder ??? Anxiety ??? Headache ??? Morbid obesity ??? Static encephalopathy ??? CVA (cerebral infarction) ??? Vasculitis, primary RETAIL SERVICE SPECIALIST ??? Former smoker Past Medical History Diagnosis [...] to Visit Medication Sig Dispense Refill ??? insulin aspart (NOVOLOG FLEXPEN) 100 unit/mL injection pen Inject into the skin 3 times daily with meals. 10 units with dinner 8 units with breakfast 15 units with lunch ??? insulin regular (NOVOLIN R PEN FILL) 100 unit/mL injection pen Inject into the skin daily. 30 units ??? enoxaparin (LOVENOX) 40 mg/0.4 mL Syrg Inject 40 mg into the skin daily. ??? pediatric multivitamin (PRESTON CHEW VIT) chewable tablet Take 1 Tab by mouth daily. ??? pantoprazole (PROTONIX) 40 mg tablet Take 40 mg by mouth daily. ??? sulfamethoxazole-trimethoprim (SMZ-TMP DS) 800-160 mg per tablet Take 1 Tab by mouth three timesa week. ??? potassium chloride (KLOR-CON) 20 mEq packet Take 20 mEq by mouth 2 times daily. ??? ibuprofen (MOTRIN) 200 mg tablet Take 400 mg by mouth 5 times daily. ??? aripiprazole (ABILIFY) 15 mg tablet Take 15 mg by mouth at bedtime. ??? nitroGLYCERIN [...] rectally every 48 hours as needed. ??? aspirin 325 mg tablet Take 1 [...] daily with breakfast. 1 Device 0 ??? predniSONE (DELTASONE) 5 mg tablet [...] work ??? Penicillins ??? Sulfa (Sulfonamide Antibiotics) ROS - See HPI Objective: BP 90/58 Pulse 74 Resp 20 Morbid obesity. Physical Exam Examined in her wheelchair. She seems to raise and lower both arms slowly and continuously, with her arms in the air much of the interview. When questioned about this she indicated it wasa nervous habit, coming out when she is anxious. She has L facial weakness. Most of the exam was deferred because she showed up quite late today and discussion filled most of the 35 minutes we spent together. Assessment: Primary RETAIL SERVICE SPECIALIST vasculitis. Treatment continues with immunosuppressants. Plan: Continue same meds. RTC in 3 months. documented in this encounter Plan of Treatment Upcoming Encounters Date Type Specialty Care Team Description 06/13/2022 Appointment Radiology 06/13/2022 Office Visit Urology Reji Foster MD [address] [place] [address], [address] [place], [place] [address] (Wo rk) documented as of this encounter Visit Diagnoses Diagnosis Vasculitis, primary RETAIL SERVICE SPECIALIST (HCC-CMS) (HCC) - Primary Arteritis, unspecified CVA (cerebral infarction) Unspecified cerebral artery occlusion wi th cerebral infarction documented in this encounter Discontinued Medications Medication Sig Discontinue Reason Start Date End Date oxybutynin (DITROPAN) 5 Take 1 Tab by mouth 02/16/2011 07/18/2011 mg tablet 2 times daily. documented as of this encounter Care Teams Basting Machine Operator Relationship Specialty Start Date End Date Lamberto Henderson MD PCP - General 07/17/11 03/21/[address] [id number] documented as of this encounter
--- OUTSIDE RECORDS SUMMARY | 2022-03-17 00:40 | XMS_ITS | Encounter Summary ---
:[address] [facility] Address [address] [place] [address] Care Team Providers Name Role Phone Unknown, Provider Primary Care Provider Reason for Visit Reason Comments Chemotherapy Encounter Details Date Type Department Care Team Description 02/24/2011 Nurse Only [facility] Unknown, Chester swenson MD Hematology & Oncology - Norbert Pak Chi, MD [address] [place] [address], [address] [place] [phone] [id number] Social History Tobacco Use Types Packs/Day Years Used Date Current Every Day Smoker Cigarettes 0.5 40 Alcohol Use Standard Drinks/Week Comments Yes [id number] (1 standard drink = 0.6 oz pure alcohol) Sex Assigned at Date Recorded Not on file documented as of this encounter Last Filed Vital Signs Vital Sign Reading Time Taken Comments Blood Pressure 120/76 02/24/2011 0833 EDT Pulse 94 02/24/2011 0833 EDT Temperature 35.1 ??C (95.1 ??F) 02/24/2011 0833 EDT Respiratory Rate 16 02/24/2011 0833 EDT Oxygen Saturation - - Inhaled Oxygen Concentration - - Weight 89.8 kg (197 lb 14.4 oz) 02/24/2011 0833 EDT Height - - Body Mass Index 32.93 12/09/2010 0233 EDT documented in this encounter Functional Status Cognitive Status Response Date of Assessment Because of a physical, mental, or emotional condition, do Ye s 12/10/2010 you have serious difficulty concentrating, remembering, or making decisions? (5 years old or older) documented as of this encounter Patient Instructions Patient InstructionsGiDevorah nicole RN - 02/24/2011 18:00 EDT Education Flow Sheet: Topics/Methods: Verbal reinforcement teaching given on all medications administered today Barriers: physical and cognitive barriers identified. Who Was Instructed: Patient and Caregiver Outcome: Needs practice, patient had stroke and needs thing repeated. Devorah Nash RN documented in this encounter Progress Notes Devorah Nash RN - 02/24/2011 1752 EDT 1500 Therapy finished patient tolerated well. IV dc'd dressing applied. Report called to [facility]: suggested lozada cath for next few days secondary to chemo administration and incontinence of urine. Discharged from clinic in stable condition in company of sitter. Devorah Nash RN Devorah Nash RN - 02/24/2011 9289 EDT 1400 Assist to BR with 2 persons inc of urine on floor and pad. Cleaned and depend applied. Pt back to chair resting comf. Bathroom floor cleaned and environmental service notified. Devorah Nash RN Devorah diaz RN - 02/24/2011 1536 EDT 1130 Pt wheeled to bathroom with 2 person assist pt transferred to toilet. Inc of urine did have BM in toilet. Cleansed and depends applied. Has decubiti dressing on coccyx is getting soiled. Rehab notified and will changed it when she gets back. Returned to chair and resting comfortably. Treatment going well no adverse side effects. Devorah Nash RN Devorah Rogers RN - 02/24/2011 1749 EDT Pt arrived in clinic via w/c is total care secondary to stroke. Has sitter with her to assist with food/beverages. Multiple IV attempts present line good blood return. Hydration infusing and patient resting comfortably. Will let us know when she is inc. Can not control bowels/bladder secondary to stroke has adult pads on. Tolerating fluids/foods well given by sitter as patient extreme difficulty in feeding self. Devorah Nash RN Devorah Rogers RN - 02/24/2011 1742 EDT I was supervised by Dr davidson who was present and immediately available in the office suite. Devorah Nash RN 02/24/2011 17:42 documented in this encounter Plan of Treatment Upcoming Encounters Date Type Specialty Care Team Description 06/13/2022 Appointment Radiology 06/13/2022 Office Visit Urology Reji Foster MD [address] [facility], [facility], [address] [place], [place] [address] (Wo rk) documented as of this encounter Visit Diagnoses Not on filedocumented in this encounter Administered Medications Inactive Administered Medications - up to 3 most recent administrations Medication Order MAR Action Action Date Dose Rate Site cyclophosphamide (CYTOXAN) 800 mg in New Bag 02/24/2011 12:30 EDT mL/hr sodium chloride (NS) 0.9 % 1,000 mL chemo infusion intravenous, NOW X1, 1 dose, On Sun02/24/11 at 0845 mesna (MESNEX) 600 mg in sodium chloride New Bag 02/24/2011 13 :00 EDT 600 mg mL/hr (NS) 0.9 % 1,000 mL infusion 600 mg, intravenous, 2 TIMES DAILY, 2 doses, First dose (after last reorder) on Sun02/24/11 at 0900, Last dose on Sun02/24/11 at 1245, Administer over 30 Minutes New Bag 02/24/2011 10:15 EDT 600 mg mL/hr ondansetron (PF) (ZOFRAN) injection 8 mg Given 02/24/2011 10:10 EDT 8 mg 8 mg, intravenous, NOW X1, 1 dose, On Sun02/24/11 at 1300, Routine sodium chloride 0.9 % (NS) infusion New Bag 02/24/2011 10:00 EDT 250 mL 75 mL/hr at 75 mL/hr, 250 mL, intravenous, CONTINUOUS, Starting on Sun02/24/11 at 1000, Until Sun02/24/11 at 1319, Routine documented in this encounter Care Teams Engineer Station Mainline Relationship Specialty Start Date End Date Unknown, Provider, PCP - General 12/08/10 07/16/11 documented as of this encounter
--- OUTSIDE RECORDS SUMMARY | 2022-03-17 00:40 | XMS_ITS | Encounter Summary ---
:1960 Author Organization [facility] Address [address] [place] [address] Care Team Providers Name Role Phone Lamberto Henderson MD Primary Care Provider Encounter Details Date Type Department Care Team Description 05/01/2012 Phlebotomy Only [facility] Transit Mechanic, Cereb ral infarction ([facility]); - [facility] Vasculitis, primary DIRECTOR INFORMATION SECURITY [facility] [address] [facility] Encounter for long-term (cur rent) use of other medications; [place], [place] Arteritis, un specified [id number] Social History Tobacco Use Types Packs/Day Years Used Date Former Smoker Cigarettes 0.5 40 Quit: 11/30/19 11 Smokeless Tobacco: Never Used Alcohol Use Standard Drinks/Week Comments Yes [id number] (1 standard drink = 0.6 oz pure [...] Office Visit Urology Reji Foster MD [address] [place] [address] [facility], Chente Chapman, [address] [place], [place] [address] (Wo rk) documented as of this encounter Procedures Procedure Name Priority Date/Time Associated Comments Diagnosis SED RATE Routine 05/01/2012 12:33 Vasculitis, primary Resu lts for this EDT DIRECTOR INFORMATION SECURITY ([facility]) procedure are in Encounter for the results long-term (current) section. use of other medications COMPLETE BLOOD COUNT Routine 05/01/2012 12:33 Vasculitis, prim janina Results for this AND DIFFERENTIAL EDT DIRECTOR INFORMATION SECURITY ([facility]) procedure are in Encounter for the results long-term (current) section. use of other medications COMPREHENSIVE Routine 05/01/2012 12:33 Vasculitis, primary Res ults for this METABOLIC PANEL (CMP) EDT DIRECTOR INFORMATION SECURITY ([facility]) procedure are in Encounter for the results long-term (current) section. use of other medications BUN Routine 05/01/2012 10:09 Cerebral infarction Resu lts for this EDT ([facility]) procedure are i n the results section. CREATININE Routine 05/01/2012 10:09 Cerebral infarction Resu lts for this EDT ([facility]) procedure are i n the results section. documented in this encounter Results (ABNORMAL) SED. RATE:MEHDI (05/01/2012 12:33 EDT) Pathologist Sig nature Sed. Rate Mehdi 74 (H) 0 - 30 mm/hr [facility] Specimen Blood specimen (specimen) Performing Organization Address City/State/ZIP Code Phon e Number [facility] [address] [place] [address] SERVICES [facility] [address] [place] [address] (ABNORMAL) COMPREHENSIVE METABOLIC PANEL (CMP) (05/01/2012 12:33 EDT) Pathologist Sig nature Potassium 4.2 3.5 - 5.0 mEq/L [facility] Sodium 143 136 - 145 mEq/L [facility] Chloride 102 96 - 110 mEq/L [facility] CO2 26 24 - 32 mEq/L [facility] Total Alkaline 64 38 - 126 U/L [facility] Phosphatase Bilirubin, Total <0.5 0.2 - 1.3 mg/dl [facility] AST 24 15 - 46 U/L [facility] ALT 19 9 - 52 U/L [facility] Albumin 3.4 3.4 - 4.9 g/dl [facility] Total Protein 7.5 6.5 - 8.3 g/dl [facility] Creatinine 0.51 (L) 0.52 - 1.04 [facility] mg/dl GFR, Calculated >60 >60 [facility] ml/min/1.73m2 BUN 15 10 - 26 mg/dl [facility] Calcium 9.2 8.5 - 10.5 [facility] mg/dl Calculated Calcium 10.2 8.5 - 10.5 [facility] mg/dl Glucose, Serum 237 (H) 70 - 100 mg/dl [facility] Fasting? NO [facility] Specimen Blood specimen (specimen) Performing Organization Address City/State/ZIP Code Phon e Number [facility] [address] [place] [address] SERVICES [facility] [address] [place] [address] (ABNORMAL) HEMAGRAM AND DIFFERENTIAL (05/01/2012 12:33 EDT) Pathologist Sig nature WBC 5.23 4.0 - 12.4 K/cmm [facility] RBC 3.75 (L) 3.86 - 5.04 M/cmm [facility] Hemoglobin 11.4 (L) 11.6 - 15.2 gm/dl [facility] HCT 33.9 (L) 34.9 - 44.4 % [facility] MCV 90 81 - 98 fl [facility] MCH 30.4 26.7 - 33.3 pg [facility] MCHC 33.7 32.1 - 35.9 gm/dl [facility] PLT 302 141 - 320 K/cmm [facility] RDW-CV 14.5 11.7 - 14.6 % [facility] Neutrophils 66.2 45.5 - 79.7 % [facility] Lymphocytes 25.6 15.0 - 46.8 % [facility] Monocytes 7.3 1.8 - 12.0 % [facility] Eosinophils 0.3 (L) 0.6 - 6.9 % [facility] Basophils 0.6 0.2 - 1.4 % [facility] ABS Neutrophils 3.47 2.20 - 8.85 K/cmm [facility] ABS Lymphs 1.34 1.09 - 3.30 K/cmm [facility] ABS Monocytes 0.38 0.1 - 0.8 K/cmm [facility] ABS Eosinophils 0.02 (L) 0.03 - 0.61 K/cmm [facility] ABS Basophils 0.03 0.01 - 0.11 K/cmm [facility] Type of Diff: Automated [facility] Specimen Blood specimen (specimen) Performing Organization Address [facility] Phon e Number [facility] [address] [place] [address] SERVICES [facility] [address] [place] [address] CREATININE (05/01/2012 10:09 EDT) Pathologist Sig nature Creatinine 0.53 0.52 - 1.04 mg/dl [facility] GFR, Calculated >60 >60 ml/min/1.73m2 [facility] Specimen Blood specimen (specimen) Performing Organization Address [facility] Phon e Number [facility] [address] [place] [address] SERVICES [facility] [address] [place] [address] BUN (05/01/2012 10:09 EDT) Pathologist Sig nature BUN 16 10 - 26 mg/dl [facility] Specimen Blood specimen (specimen) Performing Organization Address [facility] Phon e Number [facility] [address] [place] [address] SERVICES [facility] [address] [place] [address] documented in this encounter Visit Diagnoses Diagnosis Cerebral infarction (HCC) Unspecified cerebral artery occlusion wi th cerebral infarction Vasculitis, primary DIRECTOR INFORMATION SECURITY ([facility]) (HCC) Arteritis, unspecified Encounter for long-term (current) use of other medications Arteritis, unspecified (HCC-CMS) (HCC) Arteritis, unspecified documented in this encounter Care Teams Slackman Relationship Specialty Start Date End Date Lamberto Henderson MD PCP - General 07/17/11 03/21/16 [address] [facility] [address] [place] [address] documented as of this encounter
--- OUTSIDE RECORDS SUMMARY | 2022-03-17 00:40 | XMS_ITS | Encounter Summary ---
:1960 Author Organization [facility] Address [address] [place] [address] Care Team Providers Name Role Phone Lamberto Henderson MD Primary Care Provider Reason for Visit Reason Onset Date Comments Appointment Related 08/27/2012 patient called me to tell me she would not be coming to her [facility] appt with Dr. Garcia as we didn't make out the form for the tra nsportation. Encounter Details Date Type Department Care Team Description 08/27/2012 Telephone [facility] Andrzej Garcia MD Appointment Related Neurology - [address] (patient called me to [facility], [place] [phone] be coming to her [facility] [phone] Freddie lópez as (Work) we didn't make out the form for the transportation. ) Social History Tobacco Use Types Packs/Day Years Used Date Former Smoker Cigarettes 0.5 40 Quit: 11/30/19 11 Smokeless Tobacco: Never Used Alcohol Use Standard Drinks/Week Comments Yes [id number] (1 standard drink = 0.6 oz pure [...] Telephone Encounter - Cindy Martinez - 10/16/2012 1158 EST patient called me to tell me she would not be coming to her [facility] appt with Dr. Garcia as we didn't make out the form for the transportation. documented in this encounter Plan of Treatment Upcoming Encounters Date Type Specialty Care Team Description 06/13/2022 Appointment Radiology 06/13/2022 Office Visit Urology Reji Foster MD [address] [facility], [facility], [address] [place], [place] [phone] (Wo rk) documented as of this encounter Visit Diagnoses Not on filedocumented in this encounter Care Teams Crabbing Machine Operator Relationship Specialty Start Date End Date Lamberto Henderson MD PCP - General 07/17/11 03/21/16 [address] [facility] [address] [place] [phone] documented as of this encounter
--- OUTSIDE RECORDS SUMMARY | 2022-03-17 00:40 | XMS_ITS | Encounter Summary ---
:1960 Author Organization [facility] Address [address] [place] [address] Care Team Providers Name Role Phone Lamberto Henderson MD Primary Care Provider Reason for Visit Reason Onset Date Comments Medication Management 10/04/2012 Encounter Details Date Type Department Care Team Description 10/04/2012 Telephone [facility] Sherice Krishnan Medi cation Management Rheumatology & Immunology RN - Main Reading [address] [place] [address] Social History Tobacco Use Types Packs/Day Years Used Date Former Smoker Cigarettes 0.5 40 Quit: 11/30/19 11 Smokeless Tobacco: Never Used Alcohol Use Standard Drinks/Week Comments Yes 1.738657225687679011 (1 standard drink = 0.6 oz pure [...] this encounter Miscellaneous Notes Telephone Encounter - Sherice Krishnan RN - 10/04/2012 1033 EST Spoke with XIOMARA [place] who inquired if pt could receive flu vaccine while on Cellcept therapy. Advised RN that pt should receive flu vaccine injection (not nasal spray) if no s/sx of cold or flu evident. RN verbalized understanding and agreeable. documented in this encounter Plan of Treatment Upcoming Encounters Date Type Specialty Care Team Description 06/13/2022 Appointment Radiology 06/13/2022 Office Visit Urology Reji Foster MD [address] [place] [facility], [facility], [address] [place], [place] [phone] (Wo rk) documented as of this encounter Visit Diagnoses Not on filedocumented in this encounter Care Teams Background Investigator Relationship Specialty Start Date End Date Lamberto Henderson MD PCP - General 07/17/11 03/21/16 [address] [facility] [address] [place] [address] documented as of this encounter
--- OUTSIDE RECORDS SUMMARY | 2022-03-17 00:40 | XMS_ITS | Encounter Summary ---
:1960 Author Organization [facility] Address [address] [place] [address] Care Team Providers Name Role Phone Lamberto Henderson MD Primary Care Provider Reason for Visit Reason Onset Date Comments Appointment Related 11/01/2012 Left voice mail mess age telling the patient that her appt with Dr. Garcia for 11/05 has been cancelled and please call me back to let me know that you received this message and to reschedule. You can leave a message on my voice mail of you wish at : [phone]. I am l ooking at rescheduling you for 12/03 or 12/17. Encounter Details Date Type Department Care Team Description 11/01/2012 Telephone [facility] Andrzej Garcia MD App[facility]ment [facility] [address] [facility] (Left voice mail message [facility], [place] telling the patient that [place], [place] [phone] Garcia [phone] for 11/05 has be en (Work) cancelled and please call me b ack to let me know that you r eceived this message an d to reschedule. You can leave a message on my voice mail of y ou wish at : [phone]. I am looking at resc heduling you for 12/03 or 12/17.) Social History Tobacco Use Types Packs/Day Years Used Date Former Smoker Cigarettes 0.5 40 Quit: 11/30/19 11 Smokeless Tobacco: Never Used Alcohol Use Standard Drinks/Week Comments Yes [id number] (1 standard drink = 0.6 oz pure [...] Notes Telephone Encounter - Cindy Martinez - 11/01/2012 1144 EST Called the patient to reschedule his bumped appointment, unfortunately neither phone number we have for the patient is working, I also tried the emergency contact number, and that number is busy, I will continue trying that number and I will put a bump card in the mail today, but now sure if he will receive it in time. documented in this encounter Plan of Treatment Upcoming Encounters Date Type Specialty Care Team Description 06/13/2022 Appointment Radiology 06/13/2022 Office Visit Urology Reji Foster MD [address] [place], [facility], [address] [place], [place] [phone] (Wo rk) documented as of this encounter Visit Diagnoses Not on filedocumented in this encounter Care Teams Manager Heavy Equipment Relationship Specialty Start Date End Date Lamberto Henderson MD PCP - General 07/17/11 03/21/16 [address] [facility] [address] [place] [address] documented as of this encounter
--- OUTSIDE RECORDS SUMMARY | 2022-03-17 00:40 | XMS_ITS | Encounter Summary ---
:1960 Author Organization [facility] Address [address] [place] [address] Care Team Providers Name Role Phone Unknown, Provider Primary Care Provider Encounter Details Date Type Department Care Team Description 04/11/2011 Results Only [facility] Andrzej Chaney, Laboratory Services - Liza MATT [address] [place] [address] [place], [place] [phone] (Wo rk) Social History Tobacco Use Types Packs/Day Years Used Date Former Smoker Cigarettes 0.5 40 Quit: 11/30/19 11 Smokeless Tobacco: Never Used Alcohol Use Standard Drinks/Week Comments Yes [id number] (1 standard drink = 0.6 oz pure [...] Office Visit Urology Reji Foster MD [address] [facility], [facility] srinivas Chapman, [address] [place], [place] [address] (Wo rk) documented as of this encounter Procedures Procedure Name Priority Date/Time Associated Diagnosis Comme nts SED RATE Routine 04/11/2011 8:30 EDT Results for this procedure are i n the results section. C REACTIVE PROTEIN Routine 04/11/2011 8:30 EDT Re sults for this procedure are i n the results section. documented in this encounter Results SED. RATE:WESTERGREN (04/11/2011 8:30 EDT) Pathologist Sig nature Sed. Rate Westergren 8 0 - 30 mm/hr [facility] Specimen Performing Organization Address City/[facility] Phon e Number [facility] [address] [place] [address] SERVICES [facility] [address] [place] [address] C-REACTIVE PROTEIN (04/11/2011 8:30 EDT) Pathologist Sig nature C-Reactive Protein <0.7 <1.0 mg/dl [facility] Specimen Performing Organization Address [facility] Phon e Number [facility] [address] [place] [address] SERVICES [facility] [address] [place] [address] documented in this encounter Visit Diagnoses Not on filedocumented in this encounter Care Teams Math Tutor Relationship Specialty Start Date End Date Unknown, Provider, PCP - General 12/08/10 07/16/11 documented as of this encounter
--- OUTSIDE RECORDS SUMMARY | 2022-03-17 00:40 | XMS_ITS | Encounter Summary ---
:1960 Author Organization [facility] Address [address] [place] [address] Care Team Providers Name Role Phone Unknown, Provider Primary Care Provider Encounter Details Date Type Department Care Team Description 04/06/2011 Hospital Encounter [facility] - Katerine Glass MD [address] [address] [place] [address] (Wo rk) Social History Tobacco Use Types Packs/Day Years Used Date Former Smoker Cigarettes 0.5 40 Quit: 11/30/19 11 Smokeless Tobacco: Never Used Alcohol Use Standard Drinks/Week Comments Yes [id number] (1 standard drink = 0.6 oz pure [...] 0 03/31/2011 11/01/2018 mg tablet at bedtime. aspirin 325 mg tablet Take 1 Tab by mouth 1 Tab 0 02/1611/16/2011 daily. atorvastatin (LIPITOR) 10 Take 10 mg by mouth 0 05/01/2012 mg tablet daily. bisacodyl (DULCOLAX) 10 Place 10 mg rectally 0 05/01/2012 mg suppository every 48 hours as needed. divalproex (DEPAKOTE) 500 Take by mouth 2 0 02/12/2015 mg EC tablet times daily. docusate sodium (COLACE) Take 100 mg by mouth 2 times daily 0 03/31/2011 11/02/2018 100 mg capsule enoxaparin (LOVENOX) 40 Inject 40 mg into 0 08/16/2011 mg/0.4 mL Syrg the skin daily. ibuprofen (MOTRIN) 200 mg Take 400 mg by mouth every 6 hours as nee ded 0 03/31/2011 05/28/2015 tablet insulin aspart (NOVOLOG Inject into the skin 0 08/16/2011 FLEXPEN) 100 unit/mL 3 times daily with injection pen meals. 10 units with dinner 8 units with breakfast 15 units with lunch insulin aspart (NOVOLOG Inject 15 Units into 1 Device 0 08/16/2011 FLEXPEN) 100 unit/mL the skin daily with injection pen lunch. insulin aspart (NOVOLOG Inject 20 Units into 1 Device 0 08/16/2011 FLEXPEN) 100 unit/mL the skin every 24 injection pen hours. insulin aspart (NOVOLOG Inject 8 Units into 1 Device 0 08/16/2011 FLEXPEN) 100 unit/mL the skin daily with injection pen breakfast. insulin glargine (LANTUS Inject 20 Units into the skin at bedtime 0 02/18/2015 SOLOSTAR PEN) 100 unit/mL (3 mL) injection pen insulin regular (NOVOLIN Inject into the skin 0 0 03/31/2011 12/17/2012 R PEN FILL) 100 unit/mL daily. 20 units injection pen MAGNESIUM HYDROXIDE (MILK Take by mouth daily 0 0 03/31/2011 05/01/2012 OF MAGNESIA ORAL) as needed. nitroGLYCERIN (NITROSTAT) Place 0.4 mg under 0 11/02/2018 0.4 mg SL tablet the tongue every 5 minutes as needed. oxybutynin (DITROPAN) 5 Take 1 Tab by mouth 1 Tab 0 07/18/2011 mg tablet 2 times daily. pantoprazole (PROTONIX) Take 40 mg by mouth 0 02/12/2015 40 mg tablet daily. pediatric multivitamin Take 1 Tab by mouth 0 10/17/2011 (PRESTON CHEW VIT) daily. chewable tablet potassium chloride Take 20 mEq by mouth 0 05/01/2012 (KLOR-CON) 20 mEq packet 2 times daily. predniSONE (DELTASONE) 5 Take 1 Tab by mouth 1 Tab 0 05/01/2012 mg tablet daily. senna (SENNA) 8.6 mg Take 1 Tab by mouth daily as needed (constipat ion) 0 03/31/2011 11/02/2018 tablet sulfamethoxazole-trimetho Take 1 Tab by mouth 0 0 03/31/2011 08/16/2011 prim (SMZ-TMP DS) 800-160 three times a week. mg per tablet thiamine (VITAMIN B1) 100 Take 1 Tab by mouth 1 Tab 0 0 02/16/2011 05/01/2012 mg tablet daily. tramadol (ULTRAM) 50 mg Take 100 mg by mouth 0 05/01/2012 tablet every 6 hours as needed. zolpidem (AMBIEN) 5 mg Take 1 Tab by mouth 1 Tab 0 01/2306/12/2013 tablet at bedtime as needed for Sleep. documented as of this encounter Discharge Disposition Disposition Code Departure Means Destination Home or Self Care documented in this encounter Plan of Treatment Upcoming Encounters Date Type Specialty Care Team Description 06/13/2022 Appointment Radiology 06/13/2022 Office Visit Urology Reji Foster MD [address] [place] [address], [facility], [address] [place], [place] [address] (Wo rk) documented as of this encounter Visit Diagnoses Not on filedocumented in this encounter Care Teams Watch Dial Stoner Relationship Specialty Start Date End Date Unknown, Provider, PCP - General 12/08/10 07/16/11 documented as of this encounter
--- OUTSIDE RECORDS SUMMARY | 2022-03-17 00:40 | XMS_ITS | Encounter Summary ---
:1960 Author Organization [facility] Address [address] [place] [address] Care Team Providers Name Role Phone Unknown, Provider Primary Care Provider Lamberto Henderson MD Primary Care Provider Ovidio Linares MD Primary Care Provider [phone] Pio Odonnell MD Primary Care Provider [phone] Pina Taylor MD Primary Care Provider Maricel Deshpande APRN Primary Care Provider [phone] Encounter Details Date Type Department Care Team Description 03/28/2011 Telephone [facility] Heather Magallon MD Rheumatology & Immunology - [address] [place] [address] [address] [facility] [place] [address] [phone] Social History Tobacco Use Types Packs/Day Years Used Date Current Every Day Smoker Cigarettes 0.5 40 Alcohol Use Standard Drinks/Week Comments Yes [id number] (1 standard drink = 0.6 oz pure [...] Office Visit Urology Reji Foster MD [address] [facility], [facility], [address] [place], [place] [address] (Wo rk) documented as [...] documented as of this encounter Care Teams Assistant Director Of Security Relationship Specialty Start Date End Date Unknown, Maggie, PCP - General 12/08/10 07/16/11 Lamberto Henderson MD PCP - General 07/17/11 03/21/[address] [address] Ovidio Linares MD PCP - General 03/22/16 10/30/[address] [place] [address] Pio Odonnell MD PCP - General 10/31/18 04/20/[address] [place], [place] [id number] Pina Taylor MD PCP - General 04/21/21 10/03/21 [address] [place] [phone] Maricel Deshpande APRN PCP - General Geriatric Medicine 10/04/[address] [place] [address] documented as of this encounter
--- OUTSIDE RECORDS SUMMARY | 2022-03-17 00:40 | XMS_ITS | Encounter Summary ---
:1960 Author Organization [facility] Address [address] [place] [address] Care Team Providers Name Role Phone Lamberto Henderson MD Primary Care Provider Reason for Visit Reason Comments Follow-up Seizures Encounter Details Date Type Department Care Team Description 10/17/2011 Office Visit [facility] Andrzej Garcia CVA (c erebral Adult Neurology - Main infarction) (Primary [place] [address]) [address] [place] [phone] Social History Tobacco Use Types Packs/Day Years Used Date Former Smoker Cigarettes 0.5 40 Quit: 11/30/19 11 Smokeless Tobacco: Never Used Alcohol Use Standard Drinks/Week Comments Yes [id number] (1 standard drink = 0.6 oz pure alcohol) Sex Assigned at Date Recorded Not on file documented as of this encounter Last Filed Vital Signs Vital Sign Reading Time Taken Comments Blood Pressure 122/84 10/17/2011 1343 EST Pulse 80 10/17/2011 1343 EST Temperature - - Respiratory Rate 12 10/17/2011 1343 EST Oxygen Saturation - - Inhaled Oxygen Concentration - - Weight 136.1 kg (300 lb) 10/17/2011 1343 EST Height 165.1 cm (5' 5) 10/17/2011 1343 EST Body Mass Index 49.92 10/17/2011 1343 EST documented in this encounter Functional Status Cognitive Status Response Date of Assessment Because of a physical, mental, or emotional condition, do Ye s 12/10/2010 you have serious difficulty concentrating, remembering, or making decisions? (5 years old or older) documented as of this encounter Progress Notes Andrzej Garcia MD - 10/17/2011 0495 EST Subjective: Patient ID: Ginger Barrera is an 51 y.o. female. Chief Complaint Patient presents with ??? Follow-up Seizures HPI Ms. Barrera was seen in routine follow-up today with her son. She was evaluated in her wheelchair. She showed up 30 minutes late for a 30 minute appointment (her transportation showed late). She has had no new stroke-like events in the time since her last visit, and she has no specific complaints. She spends much of her time in bed. She indicates that she is only able to sit up for about an hour before she experiences back or neck pain, or simply feels too fatigued. She has PT and a visit by a nurse twice weekly, and has begun to make some progress. She has a R AFO and apparently is able to stand with help from PT. Her longest is one minute of standing. She does not voice any particular concerns. Patient Active Problem List Diagnoses ??? HTN (hypertension) ??? DM (diabetes mellitus screen) ??? Bipolar affective disorder ??? Anxiety ??? Headache ??? Morbid obesity ??? Static encephalopathy ??? CVA (cerebral infarction) ??? Vasculitis, primary REIMBURSEMENT REPRESENTATIVE ??? Former smoker Past Medical History Diagnosis [...] to Visit Medication Sig Dispense Refill ??? predniSONE (DELTASONE) 1 mg tablet Take [...] needed for Sleep. 1 Tab 0 ??? DISCONTD: aspirin 325 mg tablet Take 1 Tab by mouth daily. 1 Tab 0 ??? divalproex (DEPAKOTE) 500 [...] Sulfa(Sulfonamide Antibiotics) ??? Tylox (Oxycodone-Acetaminophen) itching ROS - See HPI Objective: BP 122/84 Pulse 80 Resp 12 Ht 165.1 cm (65) Wt 136.079 kg (300 lb) BMI 49.92 kg/m2 Physical Exam R hand is swollen (from disuse, dependency). She is able to move the R UE, but is weak (rated at 4 or 4-/5), especially on extension. R has little movement of the R LE. L side is stronger, but still weak. She has an action and sustention tremor of the L UE, that is most prominent in the index finger. She has bifacial weakness, slow cognition and seems anxious. DTRs were increased on the L. Mild dysmetria on the L. 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 Continues on low-dose prednisone and mycophenylate, with no apparent recurrence (clinically). Overall she seems to be doing well. Plan: Continue same meds. RTC in 6 months. There are no diagnoses linked to this encounter. Andrzej Garcia MD documented in this encounter Plan of Treatment Upcoming Encounters Date Type Specialty Care Team Description 06/13/2022 Appointment Radiology 06/13/2022 Office Visit Urology Reji Foster MD [address] [place] [address], [facility], [facility] [address] [place], [place] [address] (Wo rk) documented as of this encounter Visit Diagnoses Diagnosis CVA (cerebral infarction) - Primary Unspecified cerebral artery occlusion wi th cerebral infarction documented in this encounter Discontinued Medications Medication Sig Discontinue Reason Start Date End Date aspirin 325 mg tablet Take 1 Tab by 02/16/201111/16 mouth daily. pediatric multivitamin Take 1 Tab by 09/25 (PRESTON CHEW VIT) chewable mouth daily. tablet documented as of this encounter Historical Medications This list may reflect changes made after this encounter. Medication Sig Dispensed Refills Start Date End Date MULTI-VITAMIN ORAL Take by mouth. 0 added in this encounter Care Teams Concrete Block Maker Relationship Specialty Start Date End Date Lamberto Henderson MD PCP - General 07/17/11 03/21/16 [address] [facility] [address] [place] [address] documented as of this encounter
--- OUTSIDE RECORDS SUMMARY | 2022-03-17 00:40 | XMS_ITS | Encounter Summary ---
:1960 Author Organization [facility] Address [address] [place] [address] Care Team Providers Name Role Phone Lamberto Henderson MD Primary Care Provider Reason for Visit Reason Onset Date Comments Pharmacy 08/16/2011 Encounter Details Date Type Department Care Team Description 08/16/2011 Telephone [facility] Rheumatology Chula Azul RN Pharmacy & Immunology - Main [address] [address] Social History Tobacco Use Types Packs/Day Years Used Date Former Smoker Cigarettes 0.5 40 Quit: 11/30/19 11 Smokeless Tobacco: Never Used Alcohol Use Standard Drinks/Week Comments Yes 1.043515155572441153 (1 standard drink = 0.6 oz pure [...] this encounter Miscellaneous Notes Telephone Encounter - Katia Azul RN - 08/16/2011 1519 EST Abhishek from [facility] in [place] called to get [employer] order clarified because ordered IV but says take by mouth. I spoke with patient's son, Michael Markham, who said he gets the powder form with water and he mixes it, draws up in oral syringe and patient swallows it by mouth. Pharmacist said there is anoral suspension 200 mg/mL in [address] Pak changed order to oral suspension Mycophenolate. I notified Michael he will be getting 100 mL bottle and reviewed the dosin.5 mL = 500 mg to be administered 2x/day. documented in this encounter Plan of Treatment Upcoming Encounters Date Type Specialty Care Team Description 06/13/2022 Appointment Radiology 06/13/2022 Office Visit Urology Reji Foster MD 111 [facility], [facility], [address] [place], [place] [address] (Wo rk) documented as of this encounter Visit Diagnoses Not on filedocumented in this encounter Care Teams Measuring Clerk Relationship Specialty Start Date End Date Lamberto Henderson MD PCP - General 07/17/11 03/21/[address] [phone] documented as of this encounter
--- OUTSIDE RECORDS SUMMARY | 2022-03-17 00:40 | XMS_ITS | Encounter Summary ---
:1960 Author Organization [facility] Address [address] [place] [address] Care Team Providers Name Role Phone Unknown, Provider Primary Care Provider Encounter Details Date Type Department Care Team Description 04/06/2011 Results Only [facility] Andrzej Chaney, Laboratory Services - Liza MATT [address] [place] [address] [place], [place] [phone] [phone] (Wo rk) Social History Tobacco Use Types Packs/Day Years Used Date Former Smoker Cigarettes 0.5 40 Quit: 11/30/19 11 Smokeless Tobacco: Never Used Alcohol Use Standard Drinks/Week Comments Yes [id number] (1 standard drink = 0.6 oz pure [...] Office Visit Urology Reji Foster MD [address] [facility], [facility] srinivas Chapman, [address] [place], [place] [address] (Wo rk) documented as of this encounter Procedures Procedure Name Priority Date/Time Associated Comments Diagnosis URINE MICROSCOPIC Routine 04/06/2011 15:15 Result s for this EDT procedure are i n the results section. URINALYSIS WITH Routine 04/06/2011 15:15 Results for this MICROSCOPIC IF EDT procedure are in POSITIVE the results section. URINE CULTURE IF Routine 04/06/2011 15:15 Results for this POSITIVE EDT procedure are i n the results section. COMPLETE BLOOD COUNT Routine 04/06/2011 15:15 Res ults for this AND DIFFERENTIAL EDT procedure a re in the results section. BACTERIAL CULTURE, Routine 04/06/2011 15:15 Resul ts for this URINE EDT procedure are i n the results section. COMPREHENSIVE Routine 04/06/2011 15:15 Results fo r this METABOLIC PANEL (CMP) EDT proced ure are in the results section. documented in this encounter Results BACTERIAL CULTURE, URINE (04/06/2011 15:15 EDT) Specimen Description Urine [facility] Result Greater than [facility] 100,000 CFU/ml LAB ESCHERICHIA COLI Report Status Final [facility] 04/08/2011 LAB Specimen Organism Antibiotic Method Susceptibility Greater than 100,000 Ampicillin SUSCEPTIBILITY (GISELLE) >=32 cfu/ml escherichia Resistant coli Resistant Greater than 100,000 Cefazolin SUSCEPTIBILITY (GISELLE) 8 cfu/ml escherichia Susceptible coli Susceptible Greater than 100,000 Gentamicin SUSCEPTIBILITY (GISELLE) <=1 cfu/ml escherichia Susceptible coli Susceptible Greater than 100,000 Trimethoprim-Sulfameth SUSCEPTIBILITY (GISELLE) >=320 cfu/ml escherichia oxazole Resistant coli Resistant Greater than 100,000 Nitrofurantoin SUSCEPTIBILITY (GISELLE) <=16 cfu/ml escherichia Susceptible coli Susceptible Greater than 100,000 Tobramycin SUSCEPTIBILITY (GISELLE) <=1 cfu/ml escherichia Susceptible coli Susceptible Greater than 100,000 Amikacin SUSCEPTIBILITY (GISELLE) <=2 cfu/ml escherichia Susceptible coli Susceptible Greater than 100,000 Ceftriaxone SUSCEPTIBILITY (GISELLE) <=1 cfu/ml escherichia Susceptible coli Susceptible Greater than 100,000 Ciprofloxacin SUSCEPTIBILITY (GISELLE) >=4 cfu/ml escherichia Resistant coli Resistant Greater than 100,000 Meropenem SUSCEPTIBILITY (GISELLE) <=0.25 cfu/ml escherichia Susceptible coli Susceptible Performing Organization Address City/State/ZIP Code Phon e Number [facility] [address] [place] [address] SERVICES [facility] [address] [place] [id number] (ABNORMAL) URINE MICROSCOPIC (04/06/2011 15:15 EDT) WBC, UA 10 to 50 0 - 5 /HPF [facility] RBC, UA None seen 0 - 5 /HPF [facility] Squam Epithel, UA Few (A) NS /HPF [facility] Renal Epithel, UA None seen NS /HPF [facility] Bacteria, UA Many (A) NS /HPF [facility] Crystals, UA None seen /HPF [facility] Hyaline Casts, UA None seen /LPF [facility] UA Comment Microscopic results [facility] are unreliable on LAB urines unrefrig >2hrs or refrig >8hrs. Mucus, UA Present [facility] Specimen Performing Organization Address [facility] Phon e Number [facility] [address] [place] [address] SERVICES [facility] [address] [place] [address] (ABNORMAL) URINALYSIS (04/06/2011 15:15 EDT) Pathologist Sig nature Color, UA Yellow [facility] Clarity, UA Hazy [facility] Glucose, UA Neg NEG [facility] Bilirubin, UA Neg NEG [facility] Ketones, UA Neg NEG [facility] Specific [place], 1.015 1.001 - 1.035 [facility] Urine Blood, UA Neg NEG [facility] pH, UA 6.0 4.6 - 8.0 [facility] Protein, UA Neg NEG [facility] Urobilinogen, UA 0.2 0.2 - 1.0 [facility] E.U./dl Nitrite, UA Pos (A) NEG [facility] Leuk Esterase 2+ (A) NEG [facility] Specimen Performing Organization Address [facility]/ZIP [facility] Phon e Number [facility] [address] [place] [address] SERVICES [facility] [address] [place] [address] URINE CULTURE IF UA POSITIVE - NON POCT URINALYSIS ONLY (04/06/2011 15:15 EDT) Culture if Calculation error [facility] Indicated Specimen Performing Organization Address City/[facility] Phon e Number [facility] [address] [place] [address] SERVICES [facility] [address] [place] [address] (ABNORMAL) COMPREHENSIVE METABOLIC PANEL (CMP) (04/06/2011 15:15 EDT) Pathologist Sig nature Potassium 4.5 3.5 - 5.0 mEq/L [facility] Sodium 136 136 - 145 mEq/L [facility] Chloride 101 96 - 110 mEq/L [facility] CO2 28 24 - 32 mEq/L [facility] Total Alkaline 48 38 - 126 U/L [facility] Phosphatase Bilirubin, Total 0.6 0.2 - 1.3 mg/dl [facility] AST 59 (H) 15 - 46 U/L [facility] ALT 60 (H) 9 - 52 U/L [facility] Albumin 3.4 3.4 - 4.9 g/dl [facility] Total Protein 6.7 6.5 - 8.3 g/dl [facility] Creatinine 0.53 (L) 0.7 - 1.5 mg/dl [facility] GFR, Calculated >60 ml/min/1.73m2 [facility] BUN 16 10 - 26 mg/dl [facility] Calcium 9.0 8.5 - 10.5 [facility] mg/dl Calculated Calcium 10.0 8.5 - 10.5 [facility] mg/dl Glucose, Serum 130 (H) 70 - 100 mg/dl [facility] Fasting? No [facility] Specimen Performing Organization Address City/State/ZIP Code Phon e Number [facility] [address] [place] [address] SERVICES [facility] [address] [place] [address] (ABNORMAL) HEMAGRAM AND DIFFERENTIAL (04/06/2011 15:15 EDT) Pathologist Sig nature WBC 6.21 4.0 - 12.4 K/cmm [facility] RBC 3.84 (L) 3.86 - 5.04 M/cmm [facility] Hemoglobin 12.6 11.6 - 15.2 gm/dl [facility] HCT 36.0 34.9 - 44.4 % [facility] MCV 94 81 - 98 fl [facility] MCH 32.9 26.7 - 33.3 pg [facility] MCHC 35.1 32.1 - 35.9 gm/dl [facility] PLT 181 141 - 320 K/cmm [facility] RDW-CV 13.5 11.7 - 14.6 % [facility] Neutrophils 65.3 45.5 - 79.7 % [facility] Lymphocytes 24.9 15.0 - 46.8 % [facility] Monocytes 7.9 1.8 - 12.0 % [facility] Eosinophils 0.8 0.6 - 6.9 % [facility] Basophils 1.1 0.2 - 1.4 % [facility] ABS Neutrophils 4.05 2.20 - 8.85 K/cmm [facility] ABS Lymphs 1.55 1.09 - 3.30 K/cmm [facility] ABS Monocytes 0.49 0.1 - 0.8 K/cmm [facility] ABS Eosinophils 0.05 0.03 - 0.61 K/cmm [facility] ABS Basophils 0.07 0.01 - 0.11 K/cmm [facility] Type of Diff: Automated [facility] Specimen Performing Organization Address City/State/ZIP Code Phon e Number [facility] [address] [place] [address] SERVICES [facility] [address] [place] [address] documented in this encounter Visit Diagnoses Not on filedocumented in this encounter Care Teams Parking Meter Installer Relationship Specialty Start Date End Date Unknown, Provider, PCP - General 12/08/10 07/16/11 documented as of this encounter
--- OUTSIDE RECORDS SUMMARY | 2022-03-17 00:40 | XMS_ITS | Encounter Summary ---
:1960 Author Organization [facility] Address [address] [place] [address] Care Team Providers Name Role Phone Lamberto Henderson MD Primary Care Provider Reason for Visit Reason Onset Date Comments Appointment Related 11/01/2012 called patient told them appt 2 had to be changed, it has been reschedu led to 12/17 at 2:[address] Garcia, I spoke with the and confirmed the new date and time. Encounter Details Date Type Department Care Team Description 11/01/2012 Telephone [facility] Andrzej Garcia MD Appointment Related Neurology - S [address] (called patient told 1 [facility], [place] them appt 11/05 had to [place], [place] [phone] be changed, it has been [phone] rescheduled to 12/17 at (Work) 2:[address] Radha I spoke wit h the and confirmed t he new date and time.) Social History Tobacco Use Types Packs/Day Years Used Date Former Smoker Cigarettes 0.5 40 Quit: 11/30/19 11 Smokeless Tobacco: Never Used Alcohol Use Standard Drinks/Week Comments Yes 1.867606176696237810 (1 standard drink = 0.6 oz pure [...] Telephone Encounter - Cindy Martinez - 11/01/2012 1314 EST called patient told them appt 11/05 had to be changed, it has been rescheduled to 12/17 at 2:[address] Garcia, I spoke with the and confirmed the new date and time. documented in this encounter Plan of Treatment Upcoming Encounters Date Type Specialty Care Team Description 06/13/2022 Appointment Radiology 06/13/2022 Office Visit Urology Reji Foster MD [address] [facility], [facility], Level 5 [place], [place] [phone] (Wo rk) documented as of this encounter Visit Diagnoses Not on filedocumented in this encounter Care Teams Ribbon Sweatband Operator Relationship Specialty Start Date End Date Lamberto Henderson MD PCP - General 07/17/11 03/21/16 [address] [facility] [address] [place] [address] documented as of this encounter
--- OUTSIDE RECORDS SUMMARY | 2022-03-17 00:40 | XMS_ITS | Encounter Summary ---
:1960 Author Organization [facility] Address [address] [place] [address] Care Team Providers Name Role Phone Lamberto Henderson MD Primary Care Provider Reason for Visit Reason Comments Joint Pain right leg Encounter Details Date Type Department Care Team Description 09/04/2012 Office Visit [facility] Norbert Pak Chi, MD Primary central nervous system vasculiti s ([facility] Rheumatology & [address] [facility] ([facility] Immun[facility] - [facility] DM (diabetes mellitus) ([facility]) [facility], [address], [address] [place], [place] [address] [place] [address] [phone] (Wo rk) Social History Tobacco Use Types Packs/Day Years Used Date Former Smoker Cigarettes 0.5 40 Quit: 11/30/19 11 Smokeless Tobacco: Never Used Alcohol Use Standard Drinks/Week Comments Yes 1.257513068041489709 (1 standard drink = 0.6 oz pure alcohol) Sex Assigned at Date Recorded Not on file documented as of this encounter Last Filed Vital Signs Vital Sign Reading Time Taken Comments Blood Pressure 110/80 09/04/2012 1450 EST Pulse 82 09/04/2012 1450 EST Temperature - - Respiratory Rate 18 09/04/2012 1450 EST Oxygen Saturation - - Inhaled Oxygen [...] Instructions Patient InstructionsNorbert Pak Chi, MD - 09/04/2012 15:31 EST Decrease the Cellcept to 1 ml (200 mg) twice a day. Keep the Prednisone at half of the 5 mg pill daily. documented in this encounter Progress Notes Norbert Pak Chi, MD - 09/04/2012 1448 EST Images from the original note were not included. Subjective: Patient ID: Ginger Barrera is an 52 y.o. female. Chief Complaint Patient presents with ??? Joint Pain right leg HPI Comments: (Patient gave some of her history) patient has been Leaning to the right. On prednisone 2.5 mg (half of a 5 mg tablet) qd-decrease from 4 mg since last seen 4 months ago; patient did not notice any change in symptoms with the decreased prednisone. Diabetes is doing well according to her son. Has not had any infections. Neuro status is stable. Needs help getting dressed and doing her toiletries.. Denies any other joint pains or swelling. AM stiffness: Several hrs Physical activity: Sitting most of the day. Her son helps care for her. Patient Active Problem List Diagnoses ??? Hypertension [...] disease ??? Static encephalopathy ??? Morbid obesity Outpatient Prescriptions Marked as Taking for the 09/04/12 encounter (Office Visit) with Norbert Pak Chi, MD Medication Sig Dispense Refill ??? predniSONE (DELTASONE) 5 mg tablet Take [...] ROS - See HPI REVIEW OF SYSTEMS: (taken by MA/ nurse and which I reviewed- CCL) Yes No Yes No Fever x Joint pain x Fatigue x Muscle pain x Night sweats x Morning stiffness x Weight change x If yes, duration varies Gain or loss? Numbness/tingling x feet Eye discomfort x Headaches x Mouth/Nose sores [...] w/cold x Hair Loss x Objective: BP 110/80 Pulse 82 Resp 18 Physical Exam Vitals reviewed. Constitutional: She is [...] mood and affect. Her behavior is normal. 05/01/2012 12:33 Sodium 143 Potassium 4.2 CO2 [...] 90 MCH 30.4 MCHC 33.7 PLT 302 Sed. 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 Assessment: Plan: Ginger was seen today for joint pain. 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 Doubt the elevated ESR reflects increased vasculitis. No new neurologic events. Continue prednisone 2.5 mg daily; decrease CellCept to 1 mL twice a day or 200 mg twice a day. Patient has appointment with Dr. Garcia in one month. Diabetes Mellitus If poorly controlled can contribute to elevated sedimentation rate. Patient being monitored by PCP. Barriers to learning identified: No Patient verbalizes understanding and agrees with plan Yes F/u 4 mos. Norbert Pak MD documented in this encounter Plan of Treatment Upcoming Encounters Date Type Specialty Care Team Description 06/13/2022 Appointment Radiology 06/13/2022 Office Visit Urology Reji Foster MD [address] [place] [address], [address] 5 [place], [place] [address] (Wo rk) documented as of this encounter Visit Diagnoses Diagnosis Primary central nervous system vasculiti s (HCC-CMS) (HCC) Arteritis, unspecified Cerebral infarction (HCC) Unspecified cerebral artery occlusion wi th cerebral infarction DM (diabetes mellitus) (HCC) Type II or unspecified type diabetes katya litus without mention of complication, not stated as uncontrolled documented in this encounter Discontinued Medications Medication Sig Discontinue Reason Start Date End Date predniSONE (DELTASONE) 1 Take 4 Tabs by 08/16/2011 1 11/05/2011 mg tabletIndications: mouth daily. Vasculitis, primary GROUND PRODUCTS DIRECTOR (HCC-CMS) (HCC) documented as of this encounter Historical Medications This list may reflect changes made after this encounter. Medication Sig Dispensed Refills Start Date End Date predniSONE (DELTASONE) 5 Take 2.5 mg by mouth 0 11/04/2018 mg tablet daily. added in this encounter Care Teams Dance Hall Hostess Relationship Specialty Start Date End Date Lamberto Henderson MD PCP - General 07/17/11 03/21/[address] [address] documented as of this encounter
--- OUTSIDE RECORDS SUMMARY | 2022-03-17 00:40 | XMS_ITS | Encounter Summary ---
:1960 Author Organization [facility] Address [address] [place] [address] Care Team Providers Name Role Phone Unknown, Provider Primary Care Provider Encounter Details Date Type Department Care Team Description 03/08/2011 Hospital Encounter [facility] - Katerine Glass MD [address] [address] [place] [address] (Wo rk) Social History Tobacco Use Types Packs/Day Years Used Date Current Every Day Smoker Cigarettes 0.5 40 Alcohol Use Standard Drinks/Week Comments Yes 1.193680673835671366 (1 standard drink = 0.6 oz pure [...] 125 mcg tablet mouth daily. aripiprazole (ABILIFY) 10 Take 15 mg by mouth 0 0 12/09/2010 03/31/2011 mg tabletIndications: at bedtime. bipolar disorder in Indications: BIPOLAR remission DISORDER IN REMISSION aspirin 325 mg tablet Take 1 Tab by mouth 1 Tab 0 02/1611/16/2011 daily. atorvastatin (LIPITOR) 10 Take 10 mg by mouth 0 05/01/2012 mg tablet daily. divalproex (DEPAKOTE) 500 Take by mouth 2 0 02/12/2015 mg EC tablet times daily. insulin aspart (NOVOLOG Inject 15 Units into [...] PEN) 100 unit/mL (3 mL) injection pen omeprazole (PRILOSEC) 20 Take 20 mg by mouth 0 03/31/2011 mg capsule daily. oxybutynin (DITROPAN) 5 Take 1 Tab by mouth 1 Tab 0 07/18/2011 mg tablet 2 times daily. predniSONE (DELTASONE) 5 Take 1 Tab by mouth 1 Tab 0 05/01/2012 mg tablet daily. thiamine (VITAMIN B1) 100 Take 1 Tab by mouth 1 Tab 0 0 02/16/2011 05/01/2012 mg tablet daily. zolpidem (AMBIEN) 5 mg Take 1 Tab by mouth 1 Tab 0 01/2306/12/2013 tablet at bedtime as needed for Sleep. documented as of this encounter Discharge Disposition Disposition Code Departure Means Destination Home or Self Care documented in this encounter Plan of Treatment Upcoming Encounters Date Type Specialty Care Team Description 06/13/2022 Appointment Radiology 06/13/2022 Office Visit Urology Reji Foster MD [address] [facility], [facility], [address] [place], [place] [address] (Wo rk) documented as of this encounter Visit Diagnoses Not on filedocumented in this encounter Care Teams Grade Teacher Relationship Specialty Start Date End Date Unknown, Provider, PCP - General 12/08/10 07/16/11 documented as of this encounter
--- OUTSIDE RECORDS SUMMARY | 2022-03-17 00:40 | XMS_ITS | Encounter Summary ---
:1960 Author Organization [facility] Address [address] [place] [address] Care Team Providers Name Role Phone Unknown, Provider Primary Care Provider Reason for Visit Reason Onset Date Comments Appointment Related 06/28/2011 Encounter Details Date Type Department Care Team Description 06/28/2011 Telephone [facility] Norbert Pak Chi, MD Appointment Related Rheumatology & [address] [facility] venue Immunology - [facility], [facility], [address] [place] [phone] (Wo rk) Social History Tobacco Use Types Packs/Day Years Used Date Former Smoker Cigarettes 0.5 40 Quit: 11/30/19 11 Smokeless Tobacco: Never Used Alcohol Use Standard Drinks/Week Comments Yes 1.703228282551437739 (1 standard drink = 0.6 oz pure [...] Telephone Encounter - China Zhou RN - 06/28/2011 1317 EDT Neuro called asking if we could see the patient the same day as her neuro appointment. Appointment is on a Sunday and Dr. Pak is not here that day. elephone Encounter - Mikaela Jessica - 06/28/2011 1239 EDT Please call Caitlyn to coordinate appointments with neurology documented in this encounter Plan of Treatment Upcoming Encounters Date Type Specialty Care Team Description 06/13/2022 Appointment Radiology 06/13/2022 Office Visit Urology Reji Foster MD 111 [facility], [facility], Level 5 [place], [place] [address] (Wo rk) documented as of this encounter Visit Diagnoses Not on filedocumented in this encounter Care Teams Cycle Manager Relationship Specialty Start Date End Date Unknown, Provider, PCP - General 12/08/10 07/16/11 documented as of this encounter
--- OUTSIDE RECORDS SUMMARY | 2022-03-17 00:40 | XMS_ITS | Encounter Summary ---
:1960 Author Organization [facility] Address [address] [place] [address] Care Team Providers Name Role Phone Unknown, Provider Primary Care Provider Encounter Details Date Type Department Care Team Description 04/11/2011 Hospital Encounter [facility] - Katerine Glass MD [address] [address] [place] [address] (Wo rk) Social History Tobacco Use Types Packs/Day Years Used Date Former Smoker Cigarettes 0.5 40 Quit: 11/30/19 11 Smokeless Tobacco: Never Used Alcohol Use Standard Drinks/Week Comments Yes 1.885027972840754214 (1 standard drink = 0.6 oz pure [...] 06/13/2022 Office Visit Urology Reji Foster MD [address] [place] [address], [facility], [address] [place], [place] [address] (Wo rk) documented as of this encounter Visit Diagnoses Not on filedocumented in this encounter Care Teams Steam Tender Relationship Specialty Start Date End Date Unknown, Provider, PCP - General 12/08/10 07/16/11 documented as of this encounter
--- OUTSIDE RECORDS SUMMARY | 2022-03-17 00:40 | XMS_ITS | Encounter Summary ---
:1960 Author Organization [facility] Address [address] [place] [address] Care Team Providers Name Role Phone Lamberto Henderson MD Primary Care Provider Reason for Visit Reason Onset Date Comments Appointment Related 08/11/2011 Encounter Details Date Type Department Care Team Description 08/11/2011 Telephone [facility] Ginger Soria, [place] ointment Related Rehabilitation Therapy - PT [address] [place] [phone] Social History Tobacco Use Types Packs/Day Years Used Date Former Smoker Cigarettes 0.5 40 Quit: 11/30/19 11 Smokeless Tobacco: Never Used Alcohol Use Standard Drinks/Week Comments Yes 1.924239355729158555 (1 standard drink = 0.6 oz pure [...] this encounter Miscellaneous Notes Telephone Encounter - Joan Henderson - 08/11/2011 1442 EST [facility] [address] [place] [address] Person providing information? Michael - pt's son Guardian: Ginger is her own guardian Phone number: [phone] 1. Who recommended that you be seen in wheelchair clinic? Dr. Lamberto Henderson 2. What is your diagnosis? CVA 3. Reason for appointment? Power wheelchair evaluation 4. What type of chair are you currently using? Manual 5. How old is the wheelchair? Loaner - son is unaware through whom Greg Amaral maybe he states. Joan called [employer] - not through them. 6. If less than 3 years old: What isn't working with the present chair? NA 7. Do you still fit in this wheelchair? No, chair is too wide 8. If being seen for a new wheelchair: what kind do you think you need? Power 9. Where do you plan to use your wheelchair (Inside, Outside, MD appts, Shopping, All)? All 10. Do you anticipate any problems getting your new wheelchair in, out or around your home? May be difficult getting chair into bedroom area depending on size of chair 11. Is there a ramp to get into your home? 1 level entry. Pt lives in an apt, 2nd floor, elevators 13. Do you have any skin breakdown on your buttocks caused by seating/cushion? Now healed 14. Are you able to walk in your home, if so, include distance and device? No 15. How do you transfer? Stand pivot, weakness in right side 16. Do you need assistance for your transfers? 1 person asst 17. Will anyone be with you at time of appt? Michael to be home at time of appt 18. Approximate Height? 5'5 19. Approximate Weight? 250-260 lbs 20. Name of Medical Vendor? [employer] 21. Are you receiving Physical Therapy? Yes, CRISPIN Kohli from [facility]. [place] - [phone] 22. Do you have any other requests, comments, questions you would like to add prior to your appt? Michael had stated that they are new to the area and not familiar with the area or the available vendors.If he learns from his mom that she'd rather work with [employer], he will call me back, otherwise, vendor to be [employer]. Joan Henderson documented in this encounter Plan of Treatment Upcoming Encounters Date Type Specialty Care Team Description 06/13/2022 Appointment Radiology 06/13/2022 Office Visit Urology Reji Foster MD 111 [facility], [facility], Level [address] [place], [place] [address] (Wo rk) documented as of this encounter Visit Diagnoses Not on filedocumented in this encounter Care Teams Liquor Commissioner Relationship Specialty Start Date End Date Lamberto Henderson MD PCP - General 07/17/11 03/21/16 [address] [facility] [address] [place] [address] documented as of this encounter
--- OUTSIDE RECORDS SUMMARY | 2022-03-17 00:40 | XMS_ITS | Encounter Summary ---
:1960 Author Organization [facility] Address [address] [place] [address] Care Team Providers Name Role Phone Lamberto Henderson MD Primary Care Provider Encounter Details Date Type Department Care Team Description 09/02/2012 Orders Only Non [facility] Ancillary Lamberto Henderson, Iron deficiency anemia, Services unspecified (Primary [address] Dx) [facility] [address] [place] [address] Social History Tobacco Use Types Packs/Day Years Used Date Former Smoker Cigarettes 0.5 40 Quit: 11/30/19 11 Smokeless Tobacco: Never Used Alcohol Use Standard Drinks/Week Comments Yes 1.618829223854700837 (1 standard drink = 0.6 oz pure [...] Urology Reji Foster MD 111 [facility], [facility], Level [address] [place], [place] [address] (Wo rk) documented as of this encounter Results VITAMIN B12 (09/04/2012 16:05 EST) Pathologist Sig nature Vitamin B-12 680 211 - 911 pg/ml [facility] Specimen Blood specimen (specimen) Performing Organization Address [facility] Phon e Number [facility] [address] [place] [address] SERVICES [facility] [address] [place] [address] IBC (09/04/2012 16:05 EST) Pathologist Sig nature TIBC 289 265 - 497 ug/dl [facility] Specimen Blood specimen (specimen) Performing Organization Address [facility] Phon e Number [facility] [address] [place] [address] SERVICES [facility] [address] [place] [address] (ABNORMAL) IRON (09/04/2012 16:05 EST) Pathologist Sig nature Iron 30 (L) 60 - 180 ug/dl [facility] Specimen Blood specimen (specimen) Performing Organization Address [facility] Phon e Number [facility] [address] [place] [address] SERVICES [facility] [address] [place] [address] FOLATE (09/04/2012 16:05 EST) Pathologist Sig nature Folate 22.8 ng/mL [facility] Comment: Deficient: ??Less than 3.4 ng/mL Indeterminate: ??3.4-5.4 ng/mL Normal: ??Greater than 5.4 ng/mL Specimen Blood specimen (specimen) Performing Organization Address [facility] Phon e Number [facility] [address] [place] [address] SERVICES [facility] [address] [place] [address] (ABNORMAL) FERRITIN (09/04/2012 16:05 EST) Pathologist Sig nature Ferritin 431 (H) 10 - 291 ng/mL [facility] Specimen Blood specimen (specimen) Performing Organization Address [facility] Phon e Number [facility] [address] [place] [address] SERVICES [facility] [address] [place] [address] documented in this encounter Visit Diagnoses Diagnosis Iron deficiency anemia, unspecified - Pr imary documented in this encounter Care Teams Personal Banker Relationship Specialty Start Date End Date Lamberto Henderson MD PCP - General 07/17/11 03/21/[address] [phone] documented as of this encounter
--- OUTSIDE RECORDS SUMMARY | 2022-03-17 00:40 | XMS_ITS | Encounter Summary ---
:[address] [facility] Address [address] [place] [address] Care Team Providers Name Role Phone Lamberto Henderson MD Primary Care Provider Reason for Visit Reason Onset Date Comments Appointment Related 08/11/2011 Encounter Details Date Type Department Care Team Description 08/11/2011 Telephone [facility] Ginger Soria, [place] ointment Related Rehabilitation Therapy - PT [address] [place] [phone] Social History Tobacco Use Types Packs/Day Years Used Date Former Smoker Cigarettes 0.5 40 Quit: 11/30/19 11 Smokeless Tobacco: Never Used Alcohol Use Standard Drinks/Week Comments Yes 1.875246916150974243 (1 standard drink = 0.6 oz pure [...] Telephone Encounter - Joan Henderson - 08/11/2011 5844 EST [facility] [address] [place] [address] Telephone Intake Information for Scheduling NEW Patients for Therapy Referring Provider: Lamberto Henderson MD Script/referral: Requested via fax Primary Insurance: Medicaid If Medicaid: Have you been seen in therapy since 09-24-10? No. [facility] Date/Time: 09/21/11 at 1:30 Therapist: Ginger Soria PT Location: Pt's [facility] Name of Supplier: [employer] Name of Rep: Yaw - 2:00 Reason For Appt: Power wheelchair evaluation Pressure Mapping? Yes Joan Henderson documented in this encounter Plan of Treatment Upcoming Encounters Date Type Specialty Care Team Description 06/13/2022 Appointment Radiology 06/13/2022 Office Visit Urology Reji Foster MD [address] [facility], [facility], [address] [place], [place] [address] (Wo rk) documented as of this encounter Visit Diagnoses Not on filedocumented in this encounter Care Teams Director Fraud Relationship Specialty Start Date End Date Lamberto Henderson MD PCP - General 07/17/11 03/21/16 [address] [facility] [address] [place] [address] documented as of this encounter
--- OUTSIDE RECORDS SUMMARY | 2022-03-17 00:40 | XMS_ITS | Encounter Summary ---
:1960 Author Organization [facility] Address [address] [place] [address] Care Team Providers Name Role Phone Lamberto Henderson MD Primary Care Provider Reason for Visit Reason Onset Date Comments Appointment Related 04/29/2012 called home phone, p atient still in retirement, called them and aske d them to have the patient check in for CTA by 9:45am for labs before CT Encounter Details Date Type Department Care Team Description 04/29/2012 Telephone [facility] Andrzej Garcia MD Appointment Related Neurology - S [address] (called home phone, [address] [place], [place] [phone] retirement, called [phone] them and asked them to (Work) have the patient check in for CT A by 9:45am for labs before CT) Social History Tobacco Use Types Packs/Day Years Used Date Former Smoker Cigarettes 0.5 40 Quit: 11/30/19 11 Smokeless Tobacco: Never Used Alcohol Use Standard Drinks/Week Comments Yes 1.733098575376215831 (1 standard drink = 0.6 oz pure [...] Notes Telephone Encounter - Cindy Martinez - 04/29/2012 1406 EDT called home phone, patient still in retirement, called them and asked them to have the patient check in for CTA by 9:45am for labs before CT documented in this encounter Plan of Treatment Upcoming Encounters Date Type Specialty Care Team Description 06/13/2022 Appointment Radiology 06/13/2022 Office Visit Urology Reji Foster MD [address] [place] [address] [facility], Level [address] [place], [place] [address] (Wo rk) documented as of this encounter Visit Diagnoses Not on filedocumented in this encounter Care Teams Line And Frame Poler Relationship Specialty Start Date End Date Lamberto Henderson MD PCP - General 07/17/11 03/21/16 [address] [facility] [address] [place] [address] documented as of this encounter
--- OUTSIDE RECORDS SUMMARY | 2022-03-17 00:40 | XMS_ITS | Encounter Summary ---
:1960 Author Organization [facility] Address [address] [place] [address] Care Team Providers Name Role Phone Unknown, Provider Primary Care Provider Lamberto Henderson MD Primary Care Provider Ovidio Linares MD Primary Care Provider [phone] Pio Odonnell MD Primary Care Provider [phone] Pina Taylor MD Primary Care Provider Maricel Deshpande APRN Primary Care Provider [phone] Encounter Details Date Type Department Care Team Description 02/24/2011 Telephone [facility] Heather Magallon MD Rheumatology & Immunology - [address] [place] [address] 111 [facility] [place] [place] [address] [phone] Social History Tobacco Use Types Packs/Day Years Used Date Current Every Day Smoker Cigarettes 0.5 40 Alcohol Use Standard Drinks/Week Comments Yes 1.105563051472299339 (1 standard drink = 0.6 oz pure [...] this encounter Miscellaneous Notes Telephone Encounter - Heather Stallworth - 02/24/2011 1013 EDT Got called by Heme Onc nurses today. Patient in infusion and needs >2 assist. They were concernedas they were not sure if they had nursing staff to help with transfers to the bathroom. Also patientseemed unaware why she was at infusion. I re explained it to her. I have discussed with Dr. Chaney that if patient is still>1 assist next month, we may have to do inpatient obs. documented in this encounter Plan of Treatment Upcoming Encounters Date Type Specialty Care Team Description 06/13/2022 Appointment Radiology 06/13/2022 Office Visit Urology Reji Foster MD 111 [facility], [facility], [facility] 5 [place], [place] [phone] (Wo rk) documented as of this encounter [...] documented as of this encounter Care Teams Dirt Bike Mechanic Relationship Specialty Start Date End Date Unknown, Provider, PCP - General 12/08/10 07/16/11 Lamberto Henderson MD PCP - General 07/17/11 03/21/16 [address] [facility] [address] [place] [address] Ovidio Linares MD PCP - General 03/22/16 10/30/[address] [place] [phone] Pio Odonnell MD PCP - General 10/31/18 04/20/[address] [place], [place] [address] Pina Taylor MD PCP - General 04/21/21 10/03/21 [address] [place] [phone] Maricel Deshpande, JOSEY PCP - General Geriatric Medicine 10/04/[address] [place] [address] [place] [address] documented as of this encounter
--- OUTSIDE RECORDS SUMMARY | 2022-03-17 00:40 | XMS_ITS | Encounter Summary ---
:1960 Author Organization [facility] Address [address] [place] [address] Care Team Providers Name Role Phone Unknown, Provider Primary Care Provider Encounter Details Date Type Department Care Team Description 03/08/2011 Results Only [facility] Andrzej Chaney, Laboratory Services - Liza MATT [address] [place] [address] [place], [place] [phone] (Wo rk) Social History Tobacco Use Types Packs/Day Years Used Date Current Every Day Smoker Cigarettes 0.5 40 Alcohol Use Standard Drinks/Week Comments Yes 1.016607078175729200 (1 standard drink = 0.6 oz pure [...] Reji Foster MD 111 [facility], [facility], [address] [place], [place] [address] (Wo rk) documented as of this encounter Procedures Procedure Name Priority Date/Time Associated Comments Diagnosis URINALYSIS WITH Routine 03/08/2011 8:00 Results f or this MICROSCOPIC IF EDT procedure are in POSITIVE the results section. UA REFLEX Routine 03/08/2011 8:00 Results for this EDT procedure are i n the results section. URINE CULTURE IF Routine 03/08/2011 8:00 Results for this POSITIVE EDT procedure are i n the results section. documented in this encounter Results UA REFLEX (03/08/2011 8:00 EDT) Pathologist Sig nature UA Billing Microscopic not [facility] indicated. Specimen Performing Organization Address City/State/ZIP Code Phon e Number [facility] [address] [place] [address] SERVICES [facility] [address] [place] [address] URINALYSIS (03/08/2011 8:00 EDT) Pathologist Sig nature Color, UA Yellow [facility] Clarity, UA Clear [facility] Glucose, UA Neg NEG [facility] Bilirubin, UA Neg NEG [facility] Ketones, UA Neg NEG [facility] Specific [place], Urine >1.030 1.001 - 1.035 [facility] Blood, UA Neg NEG [facility] pH, UA 6.0 4.6 - 8.0 [facility] Protein, UA Neg NEG [facility] Urobilinogen, UA 0.2 0.2 - 1.0 [facility] E.U./dl Nitrite, UA Neg NEG [facility] Leuk Esterase Neg NEG [facility] Refractometer SG,Urine 1.025 1.001 - 1.035 [facility] Specimen Performing Organization Address City/State/ZIP Code Phon e Number [facility] [address] [place] [address] SERVICES [facility] [address] [place] [address] URINE CULTURE IF UA POSITIVE - NON POCT URINALYSIS ONLY (03/08/2011 8:00 EDT) Culture if Culture not [facility] Indicated indicated by urinalysis results. Specimen Performing Organization Address City/[facility]/ZIP Code Phon e Number [facility] [address] [place] [address] SERVICES [facility] [address] [place] [address] documented in this encounter Visit Diagnoses Not on filedocumented in this encounter Care Teams Operations Specialists Relationship Specialty Start Date End Date Unknown, Provider, PCP - General 12/08/10 07/16/11 documented as of this encounter
--- OUTSIDE RECORDS SUMMARY | 2022-03-17 00:40 | XMS_ITS | Encounter Summary ---
:1960 Author Organization [facility] Address [address] [place] [address] Care Team Providers Name Role Phone Lamberto Henderson MD Primary Care Provider Reason for Visit Reason Onset Date Comments Appointment Related 03/19/2012 called [facility], but was left on hold for so long that I h bridget up and will call back tomorrow. Encounter Details Date Type Department Care Team Description 03/19/2012 Telephone [facility] Andrzej Garcia MD Appointment Related Neurology - [address] (called [facility] [address] [place] [address], [place] [phone] left on hold for so [phone] long that I hun g up and (Work) will call back tomorrow. ) Social History Tobacco Use Types Packs/Day Years Used Date Former Smoker Cigarettes 0.5 40 Quit: 11/30/19 11 Smokeless Tobacco: Never Used Alcohol Use Standard Drinks/Week Comments Yes 1.504204701529596669 (1 standard drink = 0.6 oz pure [...] Notes Telephone Encounter - Cindy Martinez - 04/23/2012 1259 EDT This patient was rescheduled by [facility]. documented in this encounter Plan of Treatment Upcoming Encounters Date Type Specialty Care Team Description 06/13/2022 Appointment Radiology 06/13/2022 Office Visit Urology Reji Foster MD 111 [facility], [facility], [address] [place], [place] [address] (Wo rk) documented as of this encounter Visit Diagnoses Not on filedocumented in this encounter Care Teams Furniture Packer Relationship Specialty Start Date End Date Lamberto Henderson MD PCP - General 07/17/11 03/21/16 [address] [facility] [address] [place] [address] documented as of this encounter
--- OUTSIDE RECORDS SUMMARY | 2022-03-17 00:40 | XMS_ITS | Encounter Summary ---
:1960 Author Organization [facility] Address [address] [place] [address] Care Team Providers Name Role Phone Unknown, Provider Primary Care Provider Encounter Details Date Type Department Care Team Description 03/22/2011 Hospital Encounter [facility] - Katerine Glass MD [address] [address] [place] [address] (Wo rk) Social History Tobacco Use Types Packs/Day Years Used Date Current Every Day Smoker Cigarettes 0.5 40 Alcohol Use Standard Drinks/Week Comments Yes 1.138628643957783948 (1 standard drink = 0.6 oz pure [...] Foster MD 111 [facility], [facility], [address] [place], [place] [address] (Wo rk) documented as of this encounter Visit Diagnoses Not on filedocumented in this encounter Care Teams Bottle Blower Relationship Specialty Start Date End Date Unknown, Provider, PCP - General 12/08/10 07/16/11 documented as of this encounter
--- OUTSIDE RECORDS SUMMARY | 2022-03-17 00:40 | XMS_ITS | Encounter Summary ---
:1960 Author Organization [facility] Address [address] [place] [address] Care Team Providers Name Role Phone Lamberto Henderson MD Primary Care Provider Reason for Visit Reason Comments Follow-up vasculitis Encounter Details Date Type Department Care Team Description 08/16/2011 Office Visit [facility] Norbert Pak Chi, MD Vasculitis, primary [employer] ([facility]) (Prima ry Dx); Rheumatology & [address] [place] [address] Encounter f or long-term (current) use of other medications Immunology - [address], [address] [place], [place] [address] [place] [address] [phone] (Wo rk) Social History Tobacco Use Types Packs/Day Years Used Date Former Smoker Cigarettes 0.5 40 Quit: 11/30/19 11 Smokeless Tobacco: Never Used Alcohol Use Standard Drinks/Week Comments Yes 1.549037342722665101 (1 standard drink = 0.6 oz pure alcohol) Sex Assigned at Date Recorded Not on file documented as of this encounter Last Filed Vital Signs Vital Sign Reading Time Taken Comments Blood Pressure 102/72 08/16/2011 1420 EST Pulse 78 08/16/2011 1420 EST Temperature - - Respiratory Rate 16 08/16/2011 1420 EST Oxygen Saturation - - Inhaled Oxygen [...] Date mycophenolate mofetil Take 2.5 mL by 2 Bottle 4 08/16/2011 04/10/2013 (CELLCEPT) 200 mg/mL mouth 2 times suspensionIndications: daily. Need labs Vasculitis, primary [employer] done every 3 months ([facility]) ([facility]) mycophenolate (CELLCEPT Inject 500 mg into 1 Each 6 07/2608/16/2011 INTRAVENOUS) 500 mg the vein 2 times injectionIndications: daily. Take by Vasculitis, primary [employer] mouth- 500 mg twice (HCC-CMS) ([facility]) a day. predniSONE (DELTASONE) 1 Take 4 Tabs by 120 Each 5 011 09/04/2012 mg tabletIndications: mouth daily. 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 Subjective: Patient ID: Ginger Barrera is an 51 y.o. female. Chief Complaint Patient presents with ??? Follow-up vasculitis HPI Comments: (history obtained from son and pt). Living with son and ; the son is her front end web developer. Maintaining on cellcept suspension without problems. Uses Depends, has portable toilet. Cannot sit for more than 1 hr at a time due to increased low back pain. Needs help getting dressed; has SOLE SPLITTER coming in twice a week to help her bathe. On nitrofurantoin for recent UTI. Denies new stroke or new neurologic problems. Has chronic R arm, R leg weakness; cannot stand due to partial paralysis. Has chronic numbness of the R hand. Ibuprofen, tramadol do help aches and pains. Left heel ulcer has healed. Denies any other major infections. Patient Active Problem List Diagnoses ??? HTN (hypertension) ??? DM (diabetes mellitus screen) ??? Bipolar affective disorder ??? Anxiety ??? Headache ??? Morbid obesity ??? Static encephalopathy ??? CVA (cerebral infarction) ??? Vasculitis, primary [employer]ER ??? Former smoker Past Surgical History Procedure [...] to Visit Medication Sig Dispense Refill ??? oxybutynin (DITROPAN) 5 mg tablet Take 1 Tab by mouth 3 times daily. 100 Tab 6 ??? insulin regular (NOVOLIN R PEN FILL) 100 unit/mL injection pen Inject into the skin daily. 30 units ??? pediatric multivitamin (PRESTON CHEW VIT) chewable [...] by mouth daily. 1 Tab 0 ??? predniSONE (DELTASONE) [...] 10 mg by mouth daily. insulin aspart (NOVOLOG) 100 unit/mL injection; Inject into the skin 3 times daily before meals. 8 uAM, 15 u noon, 10 5PM Mycophenolate mofetil suspension 500 mg bid. Review of Systems Constitutional: Positive for malaise/fatigue. Negative for fever, chills, weight loss and diaphoresis. HENT: Negative for neck pain. No oral ulcers No dry mouth Eyes: Negative for pain. No dry eyes Respiratory: Negative for cough and shortness of breath. Cardiovascular: Negative for chest pain and palpitations. No raynauds Gastrointestinal: Positive for constipation. Negative for heartburn, nausea, abdominal pain, diarrhea and blood in stool. Genitourinary: Negative for dysuria, frequency and hematuria. Musculoskeletal: Positive for back pain and joint pain (R leg and foot ache on and off). Negative for myalgias. Am stiffness Skin: Negative for itching and rash. No sun sensitive rashes no psoriasis Neurological: Positive for tingling (chronic R hand numbness ) and headaches. Negative for focal weakness. Endo/Heme/Allergies: Does not bruise/bleed easily. Glucoses generally run below 200. Psychiatric/Behavioral: Negative for depression. The patient is not nervous/anxious and does not have insomnia. All other systems reviewed and are negative. - See HPI Objective: BP 102/72 Pulse 78 Resp 16 Physical Exam Vitals reviewed. Constitutional: She is oriented to person, place, and time. She appears well- nourished. No distress. Obese mid aged female, in wheelchair, accompanied by son. HENT: Head: Normocephalic and atraumatic. Mouth/Throat: Oropharynx is clear and moist. Eyes: Conjunctivae and EOM are normal. Pupils are equal, round, and reactive to light. Neck: No thyromegaly present. Cardiovascular: Normal rate, regular rhythm and normal heart sounds. No murmur heard. Pulmonary/Chest: Breath sounds normal. No respiratory distress. She has no wheezes. She has no rales. Mild bilat rhonchi Abdominal: Soft. There is no tenderness. obese Musculoskeletal: A complete msk exam including bilateral upper and lower extremities was done and was normal except for abnormal findings shown on homonculus. Neurological: She is alert and oriented to person, place, and time. A sensory deficit (decr light touch R hand) is present. Gait (could not ambulate) abnormal. Dysarthric; R hemiparesis Skin: No rash noted. Psychiatric: She has a normal mood and affect. Her behavior is normal. 04/11/2011 08:30 C-Reactive Protein <0.7 Sed. Rate Westergren 8 CBC, CMP - normal Assessment: Plan: Ginger was seen today for follow-up. 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 Acute phase reactants are now normal (past ESR 45). Pt tolerating Cellcept- continue 500 mg bid oral suspension with q 3 to 4 mo. CBC, CMP monitoring for toxicity. Decrease prednisone to 4 mg qd. =- predniSONE (DELTASONE) 1 mg tablet; Take 4 Tabs by mouth daily. -- Hemagram & Differential; Standing - Comprehensive Metabolic Panel (CMP); Standing - Sed. Rate:Westergren; Standing - mycophenolate mofetil (CELLCEPT) 200 mg/mL suspension; Take 2.5 mL by mouth 2 times daily. Need labs done every 3 months Encounter for long-term (current) use of other medications Get labs done at [facility]. - Hemagram & Differential; Standing - Comprehensive Metabolic Panel (CMP); Standing - Sed. Rate:Westergren; Standing Barriers to learning identified: No Patient and son verbalizes understanding and agrees with plan Yes F/u 6 mos. documented in this encounter Plan of Treatment Upcoming Encounters Date Type Specialty Care Team Description 06/13/2022 Appointment Radiology 06/13/2022 Office Visit Urology Reji Foster MD [address] [place] [address], [facility], [address] [place] [phone] (Wo rk) documented as of this encounter Visit Diagnoses Diagnosis Vasculitis, primary [employer] MA[employer]ER ([facility]) ([facility]) - Primary Arteritis, unspecified Encounter for long-term (current) use of other medications documented in this encounter Discontinued Medications Medication Sig Discontinue Reason Start Date End Date mycophenolate (CELLCEPT Inject 500 mg into 08/16/2011 08/16/2011 INTRAVENOUS) 500 mg the vein 2 times injectionIndications: daily. Take by Vasculitis, primary [employer] mouth- 500 mg twice ([facility]) ([facility]) a day. enoxaparin (LOVENOX) 40 Inject 40 mg into Error 08/16/2011 mg/0.4 mL Syrg the skin daily. insulin aspart (NOVOLOG Inject 15 Units into 1 08/16/2011 FLEXPEN) 100 unit/mL the skin daily with injection pen lunch. insulin aspart (NOVOLOG Inject 20 Units into 1 08/16/2011 FLEXPEN) 100 unit/mL the skin every 24 injection pen hours. insulin aspart (NOVOLOG Inject 8 Units into Error 02/16/2011 08/16/2011 FLEXPEN) 100 unit/mL the skin daily with injection pen breakfast. insulin aspart (NOVOLOG Inject into the skin Error 08/16/2011 FLEXPEN) 100 unit/mL 3 times daily with injection pen meals. 10 units with dinner 8 units with breakfast 15 units with lunch sulfamethoxazole-trimeth Take 1 Tab by mouth Error 1 08/16/2011 oprim (SMZ-TMP DS) three times a week. 800-160 mg per tablet documented as of this encounter Historical Medications This list may reflect changes made after this encounter. Medication Sig Dispensed Refills Start Date End Date insulin aspart (NOVOLOG) Inject into the skin 0 02/12/2015 100 unit/mL injection 3 times daily before meals. 10units tid added in this encounter Care Teams Steam Cleaning Machine Operator Relationship Specialty Start Date End Date Lamberto Henderson MD PCP - General 07/17/11 03/21/16 [address] [facility] [address] [place] [address] documented as of this encounter
--- OUTSIDE RECORDS SUMMARY | 2022-03-17 00:40 | XMS_ITS | Encounter Summary ---
:1960 Author Organization [facility] Address [address] [place] [address] Care Team Providers Name Role Phone Lamberto Henderson MD Primary Care Provider Reason for Visit Reason Comments Follow-up Encounter Details Date Type Department Care Team Description 12/17/2012 Office Visit [facility] Andrzej Garcia Primar y MECHANICAL MAINTENANCE INSTRUCTOR vasculitis Adult Neurology - Chandrakant MATT ([facility]) (Primary Dx) [address] [phone] Social History Tobacco Use Types Packs/Day Years Used Date Former Smoker Cigarettes 0.5 40 Quit: 11/30/19 11 Smokeless Tobacco: Never Used Alcohol Use Standard Drinks/Week Comments Yes 1.217242025205019061 (1 standard drink = 0.6 oz pure alcohol) Sex Assigned at Date Recorded Not on file documented as of this encounter Last Filed Vital Signs Vital Sign Reading Time Taken Comments Blood Pressure 116/72 12/17/2012 1428 EDT Pulse 76 12/17/2012 1428 EDT Temperature - - Respiratory Rate 16 12/17/2012 1428 EDT Oxygen Saturation - - Inhaled Oxygen [...] encounter Progress Notes Andrzej Garcia MD - 12/17/2012 2495 EDT Subjective: Patient ID: Ginger Barrera is an 52 y.o. female. Chief Complaint Patient presents with ??? Follow-up HPI Seen in routine follow-up with her son. She is seen in a wheelchair and they both relate that she isable to stand and pivot but not walk. He helps her to a commode (stand and pivot) for BMs (she wearsa Martinez for urine). A home health aide comes by to help her bathe. She denies any new stroke-like symptoms. She doesn't get much in the way of headaches, but she does have posterior neck pain, which she relates to injury and a plate in her neck. She sleeps well and overall is less nervous. She relates anxiety to when her sugar is low. Her weight is stable, according to her. Her vision is good with glasses. Her deficits from the stroke (R sided weakness is the most prominent) are stable, but not improving. Patient Active Problem List Diagnoses ??? Hypertension [...] Inject 18 Units into theskin at bedtime. Allergies Allergen Reactions ??? Darvocet A500 (Propoxyphene N-Acetaminophen) Nausea And Vomiting ??? Methadone ??? Naproxen Does not work ??? Penicillins ??? Sulfa (Sulfonamide Antibiotics) ??? Tylox (Oxycodone-Acetaminophen) itching ROS Objective: BP 116/72 Pulse 76 Resp 16 Physical Exam Neurologic Exam Exam: Heart RRR, S1S2 normal without murmur Carotids 2+ without bruits Neuro: Examined in wheelchair. Wearing a R AFO. MS: Awake, alert, and keenly interactive; History concise, questions relevant; No further formal mental status testing was performed. Appears less anxious than she has been on other visits (less B armraising - which is what she seems to do when she is nervous). She also makes better eye contact. Shehas task impersistence. CN: PERRL; VFF to confrontation; EOMI with a couple of beats of nystagmus on eye fixation in any direction; R UMN pattern facial weakness, mild; some sensory asymmetry with T decreased on the R side of the face, PP decreased on the L side and LT equal; hearing intact to finger rub; edentulous, but nodysarthria; Tongue slightly protruded R. Motor: R spastic hemiparesis, more pronounced in the LE and distally in the UE. She has a swollen Lhand. Sensory: Decreased to LT, T, PP on the L. Coor: FN testing revealed mild LUE dysmetria. ERNESTO and FFM were markedly impaired B, R more than L. DTRs: 3+ throughout, more pronounced on the R. Gait: NT. 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 She continues on Cellcept and a small dose of Prednisone. Clinically, she has had no recurrent events and is stable. Radiographically, the vasculature improved dramatically between December and April 2012. I am suggesting that we repeat now. If good (same or even better) would wean off the mycophenylate and Pred. Presuming this to be the case would then repeat imaging of vessels at least 4 months off meds. RTC after second scan. We may reassess need to revisit physical therapy. She seems to have become quite sedentary. Plan: CTA head. If all is well, would wean anti-inflammatories (cellcept and prednisone, per Dr. Pak). If all is well, would then repeat CTA in 6 months (with at least 4 months of no anti-inflammatory meds) and make a decision about whether she needs to restart. documented in this encounter Plan of Treatment Upcoming Encounters Date Type Specialty Care Team Description 06/13/2022 Appointment Radiology 06/13/2022 Office Visit Urology Reji Foster MD 111 [facility], [facility], [address] [place], [place] [address] (Wo rk) documented as of this encounter Visit Diagnoses Diagnosis Primary MECHANICAL MAINTENANCE INSTRUCTOR vasculitis (HCC-CMS) (HCC) - Primary Arteritis, unspecified documented in this encounter Discontinued Medications Medication Sig Discontinue Reason Start Date End Date hydrocodone-acetaminophe Take 1 Tab by mouth 12/17/2012 n (NORCO) 5-325 mg per 4 times daily as tablet needed. insulin regular (NOVOLIN Inject into the skin 03/31/20 11 12/17/2012 R PEN FILL) 100 unit/mL daily. 20 units injection pen documented as of this encounter Care Teams Director Dance Relationship Specialty Start Date End Date Lamberto Henderson MD PCP - General 07/17/11 03/21/16 [address] [facility] [address] [place] [phone] documented as of this encounter
--- OUTSIDE RECORDS SUMMARY | 2022-03-17 00:40 | XMS_ITS | Encounter Summary ---
:1960 Author Organization [facility] Address [address] [place] [address] Care Team Providers Name Role Phone Lamberto Henderson MD Primary Care Provider Encounter Details Date Type Department Care Team Description 05/01/2012 Hospital Encounter [facility] Andrzej Garcia MD [address] [phone] (Wo rk) Social History Tobacco Use Types Packs/Day Years Used Date Former Smoker Cigarettes 0.5 40 Quit: 11/30/19 11 Smokeless Tobacco: Never Used Alcohol Use Standard Drinks/Week Comments Yes [id number] (1 standard drink = 0.6 oz pure [...] tablet mouth 2 times daily as needed. hydrocodone-acetaminophen Take 1 Tab by mouth 0 12/17/2012 (NORCO) 5-325 mg per 4 times daily as tablet needed. ibuprofen (MOTRIN) 200 mg Take 400 mg by mouth every 6 hours as nee ded 0 03/31/2011 05/28/2015 tablet insulin aspart (NOVOLOG) Inject into the 0 02/12/2015 100 unit/mL injection skin 3 times daily before meals. 10units tid insulin glargine (LANTUS Inject 20 Units into the skin at bedtime 0 02/18/2015 SOLOSTAR PEN) 100 unit/mL (3 mL) injection pen insulin regular (NOVOLIN R Inject into the 0 04/201112/17/2012 PEN FILL) 100 unit/mL skin daily. 20 injection pen units MULTI-VITAMIN ORAL Take by mouth. 0 mycophenolate mofetil Take 2.5 mL by 2 Bottle 4 08/16/2011 04/10/2013 (CELLCEPT) 200 mg/mL mouth 2 times suspensionIndications: daily. 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 oxybutynin (DITROPAN) 5 mg Take 1 Tab by mouth 100 Tab 6 07/18/2011 02/12/2015 tabletIndications: CVA 3 times daily. (cerebral infarction) pantoprazole (PROTONIX) 40 Take 40 mg by mouth 0 02/12/2015 mg tablet daily. predniSONE (DELTASONE) 1 Take 4 Tabs by 120 Each 5 011 09/04/2012 mg tabletIndications: mouth daily. Vasculitis, primary TEXTILE MACHINE MAINTENANCE MECHANIC ([facility]) ([facility]) senna (SENNA) 8.6 mg Take 1 Tab [...] Disposition Code Departure Means Destination Auto Discharge Home documented in this encounter Plan of Treatment Upcoming Encounters Date Type Specialty Care Team Description 06/13/2022 Appointment Radiology 06/13/2022 Office Visit Urology Reji Foster MD [address] [place], [facility], [address] [place], [place] [phone] (Wo rk) documented as of this encounter Visit Diagnoses Not on filedocumented in this encounter Care Teams Automated Logistics Specialist Relationship Specialty Start Date End Date Lamberto Henderson MD PCP - General 07/17/11 03/21/16 [address] [facility] [address] [place] [address] documented as of this encounter
--- OUTSIDE RECORDS SUMMARY | 2022-03-17 00:40 | XMS_ITS | Encounter Summary ---
:1960 Author Organization [facility] Address [address] [place] [address] Care Team Providers Name Role Phone Lamberto Henderson MD Primary Care Provider Encounter Details Date Type Department Care Team Description 09/04/2012 Phlebotomy Only [facility] Depilatory Painter, Arter itis, unspecified; - [facility] Encounter for long-term (cur rent) use of other medications; [address] [facility] Iron deficiency anemia, unsp ecified [place], [place] [address] Social History Tobacco Use Types Packs/Day Years Used Date Former Smoker Cigarettes 0.5 40 Quit: 11/30/19 11 Smokeless Tobacco: Never Used Alcohol Use Standard Drinks/Week Comments Yes [id number] (1 standard drink = 0.6 oz pure [...] Office Visit Urology Reji Foster MD 111 [facility] venue [facility], [facility], [address] [place] [address] (Wo rk) documented as of this encounter Procedures Procedure Name Priority Date/Time Associated Comments Diagnosis IBC Routine 09/04/2012 16:05 Iron deficiency Results for this EST anemia, unspecified procedur e are in the results section. IRON Routine 09/04/2012 16:05 Iron deficiency Results for this EST anemia, unspecified procedur e are in the results section. FOLATE Routine 09/04/2012 16:05 Iron deficiency Results for this EST anemia, unspecified procedur e are in the results section. FERRITIN Routine 09/04/2012 16:05 Iron deficiency Results for this EST anemia, unspecified procedur e are in the results section. VITAMIN B12 Routine 09/04/2012 16:05 Iron deficiency Results for this EST anemia, unspecified procedur e are in the results section. DIFFERENTIAL Routine 09/04/2012 16:04 Results for this EST procedure are i n the results section. SED RATE Routine 09/04/2012 16:04 Arteritis, Results for this EST unspecified procedure are in Encounter for the results long-term (current) section. use of other medications COMPLETE BLOOD COUNT Routine 09/04/2012 16:04 Res ults for this EST procedure are i n the results section. COMPLETE BLOOD COUNT Routine 09/04/2012 16:04 Arteritis, AND DIFFERENTIAL EST unspecified Encounter for long-term (current) use of other medications COMPREHENSIVE Routine 09/04/2012 16:04 Arteritis, Results fo r this METABOLIC PANEL (CMP) EST unspecifie d procedure are in Encounter for the results long-term (current) section. use of other medications documented in this encounter Results VITAMIN B12 (09/04/2012 16:05 EST) Pathologist Sig nature Vitamin B-12 680 211 - 911 pg/ml [facility] Specimen Blood specimen (specimen) Performing Organization Address City/[facility]/ZIP Code Phon e Number [facility] [address] [place] [address] SERVICES [facility] [address] [place] [address] IBC (09/04/2012 16:05 EST) Pathologist Sig nature TIBC 289 265 - 497 ug/dl [facility] Specimen Blood specimen (specimen) Performing Organization Address City/[facility]/ZIP [facility] Phon e Number [facility] [address] [place] [address] SERVICES [facility] [address] [place] [address] (ABNORMAL) IRON (09/04/2012 16:05 EST) Pathologist Sig nature Iron 30 (L) 60 - 180 ug/dl [facility] Specimen Blood specimen (specimen) Performing Organization Address City/[facility]/ZIP Code Phon e Number [facility] [address] [place] [address] SERVICES [facility] [address] [place] [address] FOLATE (09/04/2012 16:05 EST) Pathologist Sig nature Folate 22.8 ng/mL [facility] Comment: Deficient: ??Less than 3.4 ng/mL Indeterminate: ??3.4-5.4 ng/mL Normal: ??Greater than 5.4 ng/mL Specimen Blood specimen (specimen) Performing Organization Address [facility] Phon e Number [facility] [address] [place] [address] SERVICES [facility] [address] [place] [address] (ABNORMAL) FERRITIN (09/04/2012 16:05 EST) Pathologist Sig nature Ferritin 431 (H) 10 - 291 ng/mL [facility] Specimen Blood specimen (specimen) Performing Organization Address [facility]/ZIP [facility] Phon e Number [facility] [address] [place] [address] SERVICES [facility] [address] [place] [address] (ABNORMAL) DIFFERENTIAL (09/04/2012 16:04 EST) Neutrophils 56.0 45.5 - 79.7 % [facility] Lymphocytes 36.0 15.0 - 46.8 % [facility] Monocytes 8.0 1.8 - 12.0 % [facility] ABS Neutrophils 5.20 2.20 - 8.85 [facility] ABS Lymphs 3.34 (H) 1.09 - 3.30 [facility] ABS Monocytes 0.74 0.1 - 0.8 [facility] RBC Morphology 1+Comment: [facility]is[facility] Type of Diff: Manual [facility] Specimen Performing Organization Address City/[facility]/ZIP [facility] Phon e Number [facility] [address] [place] [address] SERVICES [facility] [address] [place] [address] (ABNORMAL) HEMAGRAM (09/04/2012 16:04 EST) Pathologist Sig nature WBC 9.28 4.0 - 12.4 K/cmm [facility] RBC 3.27 (L) 3.86 - 5.04 M/cmm [facility] Hemoglobin 9.6 (L) 11.6 - 15.2 gm/dl [facility] HCT 29.2 (L) 34.9 - 44.4 % [facility] MCV 89 81 - 98 fl [facility] MCH 29.2 26.7 - 33.3 pg [facility] MCHC 32.7 32.1 - 35.9 gm/dl [facility] PLT 388 (H) 141 - 320 K/cmm [facility] RDW-CV 18.1 (H) 11.7 - 14.6 % [facility] Specimen Performing Organization Address City/[facility] Code Phon e Number [facility] [address] [place] [address] SERVICES [facility] [address] [place] [address] (ABNORMAL) SED. RATE:MALATHIERGREN (09/04/2012 16:04 EST) Pathologist Sig nature Sed. Rate Westergren 88 (H) 0 - 30 mm/hr [facility] Specimen Blood specimen (specimen) Performing Organization Address City/[facility]/ZIP Code Phon e Number [facility] [address] [place] [address] SERVICES [facility] [address] [place] [address] (ABNORMAL) COMPREHENSIVE METABOLIC PANEL (CMP) (09/04/2012 16:04 EST) Pathologist Sig nature Potassium 4.2 3.5 - 5.0 mEq/L [facility] Sodium 139 136 - 145 mEq/L [facility] Chloride 100 96 - 110 mEq/L [facility] CO2 27 24 - 32 mEq/L [facility] Total Alkaline 54 38 - 126 U/L [facility] Phosphatase Bilirubin, Total 0.5 0.2 - 1.3 mg/dl [facility] AST 18 15 - 46 U/L [facility] ALT 14 9 - 52 U/L [facility] Albumin 3.2 (L) 3.4 - 4.9 g/dl [facility] Total Protein 7.6 6.5 - 8.3 g/dl [facility] Creatinine 1.06 (H) 0.52 - 1.04 [facility] mg/dl GFR, Calculated 54 (L) >60 [facility] ml/min/1.73m2 BUN 8 (L) 10 - 26 mg/dl [facility] Calcium 8.9 8.5 - 10.5 [facility] mg/dl Calculated Calcium 10.1 8.5 - 10.5 [facility] mg/dl Glucose, Serum 78 70 - 100 mg/dl [facility] Fasting? NO [facility] Specimen Blood specimen (specimen) Performing Organization Address City/State/ZIP Code Phon e Number [facility] [address] [place] [address] SERVICES [facility] [address] [place] [address] documented in this encounter Visit Diagnoses Diagnosis Arteritis, unspecified ([facility]) ([facility]) Arteritis, unspecified Encounter for long-term (current) use of other medications Iron deficiency anemia, unspecified documented in this encounter Care Teams .Net Programmer Relationship Specialty Start Date End Date Lamberto Henderson MD PCP - General 07/17/11 03/21/[address] [address] documented as of this encounter
--- OUTSIDE RECORDS SUMMARY | 2022-03-17 00:40 | XMS_ITS | Encounter Summary ---
:1960 Author Organization [facility] Address [address] [place] [address] Care Team Providers Name Role Phone Lamberto Henderson MD Primary Care Provider Encounter Details Date Type Department Care Team Description 08/24/2011 - Hospital Encounter [facility]- Lamberto Henderson, 09/23/2011 [facility] [address] [address] [place] [address] [place] [address] Social History Tobacco Use Types Packs/Day Years Used Date Former Smoker Cigarettes 0.5 40 Quit: 11/30/19 11 Smokeless Tobacco: Never Used Alcohol Use Standard Drinks/Week Comments Yes 1.725356672603873997 (1 standard drink = 0.6 oz pure [...] 03/31/2011 05/01/2012 OF MAGNESIA ORAL) as needed. mycophenolate mofetil Take 2.5 mL by mouth 2 Bottle 4 07/2604/10/2013 (CELLCEPT) 200 mg/mL 2 times daily. Need suspensionIndications: labs done every 3 Vasculitis, primary SCALLOPER months ([facility]) ([facility]) nitroGLYCERIN (NITROSTAT) Place 0.4 mg under 0 11/02/2018 0.4 mg SL tablet the tongue every 5 minutes as needed. oxybutynin (DITROPAN) 5 Take 1 Tab by mouth 100 Tab 6 02/12/2015 mg tabletIndications: CVA 3 times daily. (cerebral infarction) pantoprazole (PROTONIX) Take 40 mg by mouth 0 02/12/2015 40 mg tablet daily. pediatric multivitamin Take 1 Tab by mouth 0 10/17/2011 (PRESTON CHEW VIT) daily. chewable tablet potassium chloride Take 20 mEq by mouth 0 05/01/2012 (KLOR-CON) 20 mEq packet 2 times daily. predniSONE (DELTASONE) 1 Take 4 Tabs by mouth 120 Each 5 1 10/16/2010 09/04/2012 mg tabletIndications: daily. Vasculitis, primary SCALLOPER (HCC-CMS) (HCC) predniSONE (DELTASONE) 5 Take 1 Tab by mouth 1 Tab 0 05/01/2012 mg tablet daily. senna (SENNA) 8.6 mg Take 1 Tab by mouth daily as needed (constipat ion) 0 03/31/2011 11/02/2018 tablet thiamine (VITAMIN B1) 100 Take 1 [...] Office Visit Urology Reji Foster MD 111 [facility], [facility], [address] [place], [place] [address] (Wo rk) documented as of this encounter Visit Diagnoses Not on filedocumented in this encounter Care Teams Embedded Software Development Engineer Relationship Specialty Start Date End Date Lamberto Henderson MD PCP - General 07/17/11 03/21/16 [address] [facility] [address] [place] [address] documented as of this encounter
--- OUTSIDE RECORDS SUMMARY | 2022-03-17 00:40 | XMS_ITS | Encounter Summary ---
:1960 Author Organization [facility] Address [address] [place] [address] Care Team Providers Name Role Phone Lamberto Henderson MD Primary Care Provider Reason for Visit Reason Onset Date Comments Labs Only 05/01/2012 Encounter Details Date Type Department Care Team Description 05/01/2012 Telephone [facility] Christina Gutierrez nly Rheumatology & Immunology - [facility] [place] [address] [place] [phone] Social History Tobacco Use Types Packs/Day Years Used Date Former Smoker Cigarettes 0.5 40 Quit: 11/30/19 11 Smokeless Tobacco: Never Used Alcohol Use Standard Drinks/Week Comments Yes 1.048066196225178844 (1 standard drink = 0.6 oz pure [...] Telephone Encounter - Elin Gutierrez RN - 05/01/2012 1047 EDT [facility]. No labs drawn since she was an inpatient at [facility] on 01/08/12. And no LFTs or ESR. senior living staff asking that we be sure to have pt go down to our lab to have labs drawn after her FUR today. Also asking that she come home with new External standing lab orders. I've ordered labs for [facility]. Pended external standing orders for you to sign and give to pt after your visit. documented in this encounter Plan of Treatment Upcoming Encounters Date Type Specialty Care Team Description 06/13/2022 Appointment Radiology 06/13/2022 Office Visit Urology Reji Foster MD 111 [facility], [facility], [address] [place], [place] [phone] (Wo rk) documented as of this encounter Visit Diagnoses Diagnosis Arteritis, unspecified (HCC-CMS) (HCC) Arteritis, unspecified Encounter for long-term (current) use of other medications documented in this encounter Orders Lab Orders Without Results Count Last Ordered Date Fir st Ordered Date COMPREHENSIVE METABOLIC PANEL (CMP) 1 05/01/2012 HEMAGRAM AND DIFFERENTIAL 1 05/01/2012 SED. RATE:WESTERGREN 1 05/01/2012 documented in this encounter Care Teams Broker Assistant Relationship Specialty Start Date End Date Lamberto Henderson MD PCP - General 07/17/11 03/21/16 [address] [facility] [address] [place] [phone] documented as of this encounter
--- OUTSIDE RECORDS SUMMARY | 2022-03-17 00:40 | XMS_ITS | Encounter Summary ---
:1960 Author Organization [facility] Address [address] [place] [address] Care Team Providers Name Role Phone Lamberto Henderson MD Primary Care Provider Reason for Visit Reason Onset Date Comments Orders (Non Pre-visit) 09/15/2011 Encounter Details Date Type Department Care Team Description 09/15/2011 Telephone [facility] Brenda, Luis Enrique (Non Pre-visit) Rheumatology & Immunology [facility] [place] - [facility] [place] [address] [place] [address] Social History Tobacco Use Types Packs/Day Years Used Date Former Smoker Cigarettes 0.5 40 Quit: 11/30/19 11 Smokeless Tobacco: Never Used Alcohol Use Standard Drinks/Week Comments Yes 1.892791323609831554 (1 standard drink = 0.6 oz pure [...] Telephone Encounter - Elin Gutierrez RN - 09/15/2011 1015 EST Pharmacist called to clarify Cellcept order that was called in yesterday. I don't see any record of Cellcept being called in yesterday. Pt has refills on her previous script so I suggested they use that order. No change in medication. documented in this encounter Plan of Treatment Upcoming Encounters Date Type Specialty Care Team Description 06/13/2022 Appointment Radiology 06/13/2022 Office Visit Urology Reji Foster MD [address] [place] [address] [facility], [facility], [address] [place], [place] [phone] (Wo rk) documented as of this encounter Visit Diagnoses Not on filedocumented in this encounter Care Teams Pinion Polisher Relationship Specialty Start Date End Date Lamberto Henderson MD PCP - General 07/17/11 03/21/16 [address] [facility] [address] [place] [address] documented as of this encounter
--- OUTSIDE RECORDS SUMMARY | 2022-03-17 00:41 | XMS_ITS | Encounter Summary ---
:1960 Author Organization [facility] [place] [address] Care Team Providers Name Role Phone Anusha Goetz MD Primary Care Provider Encounter Details Date Type Department Care Team Description 02/01/2022 Telephone Gastroenterology at [facility] Jazmyn Ruiz, RN [facility] [place] [phone] Social History Tobacco Use Types Packs/Day Years Used Date Former Smoker Quit: 2015 Smokeless Tobacco: Never Used Sex Assigned at Date Recorded Not on file documented as of this encounter Miscellaneous Notes Telephone Encounter - Jazmyn Ruiz, RN - 02/01/2022 3:42 PM EDT Incoming vmm from KELSEY Connelly at [facility] looking for clarification of yesterday's visit outcome. She referred the pt to GI for discussion of tx of HCV, however learned on pt's return to the facility that discussion was based more around constipation. Returned her call, however she was out of the office. Provided nurse call back number. documented in this encounter Plan of Treatment Not on filedocumented as of this encounter Visit Diagnoses Not on filedocumented in this encounter Care Teams Procurement Consultant Relationship Specialty Start Date End Date Anusha Goetz MD PCP - General Family Medicine 09/08/[address] [place] [address] documented as of this encounter
--- OUTSIDE RECORDS SUMMARY | 2022-03-17 00:41 | XMS_ITS | Encounter Summary ---
:1960 Author Organization [facility] [place] [address] Care Team Providers Name Role Phone Unavailable Primary Care Provider Unavailable Encounter Details Date Type Department Care Team Description 03/31/2019 Ancillary Procedure Radiology Library at Christy Deshpande [facility] Quiros [facility] [address] [place] [phone] (Wo rk) Social History Tobacco Use Types Packs/Day Years Used Date Never Assessed Sex Assigned at Date Recorded Not on file documented as of this encounter Plan of Treatment Not on filedocumented as of this encounter Procedures Procedure Name Priority Date/Time Associated Diagnosis Comme nts FILM LIBRARY Routine 03/31/2019 12:00 AM Results for this STORAGE ONLY MAMMO EDT procedure are in the results section. documented in this encounter Results Film Library- Storage Only Mammo (03/31/2019 12:00 AM EDT) Specimen (Source) Anatomical Location Collection Method / Collectio n Time Received Time / Laterality Volume Narrative JS - 07/31/2020 10:32 AM EST This exam is auto-finalizing. It's purpo se is for storage only. Maricel Deshpande APRN IMG FILM LIBRARY ORDERABLES Performing Organization Address City/State/ZIP Code Phon e Number JS [place], [place] documented in this encounter Visit Diagnoses Not on filedocumented in this encounter
--- OUTSIDE RECORDS SUMMARY | 2022-03-17 00:41 | XMS_ITS | Encounter Summary ---
:1960 Author Organization [facility] [place] [address] Care Team Providers Name Role Phone Unavailable Primary Care Provider Unavailable Encounter Details Date Type Department Care Team Description 10/15/2018 Ancillary Procedure Radiology Library at Christy Deshpande [facility] Quiros [facility] [address] [place] [phone] (Wo rk) Social History Tobacco Use Types Packs/Day Years Used Date Never Assessed Sex Assigned at Date Recorded Not on file documented as of this encounter Plan of Treatment Not on filedocumented as of this encounter Procedures Procedure Name Priority Date/Time Associated Diagnosis Comme nts FILM Routine 10/15/2018 12:05 AM Results for this LIBRARY-STORAGE EST procedure ar e in ONLY US BREAST the results section. documented in this encounter Results Film Library Storage Only US Breast (10/15/2018 12:05 AM EST) Specimen (Source) Anatomical Location Collection Method / Collectio n Time Received Time / Laterality Volume Narrative ALEXANDER WEINSTEIN - 07/31/2020 10:30 AM EST This exam is auto-finalizing. It's purpo se is for storage only. Maricel Deshpande APRN IMG FILM LIBRARY ORDERABLES Performing Organization Address City/State/ZIP Code Phon e Number JS [place], [place] documented in this encounter Visit Diagnoses Not on filedocumented in this encounter
--- OUTSIDE RECORDS SUMMARY | 2022-03-17 00:41 | XMS_ITS | Encounter Summary ---
:1960 Author Organization [facility] [place] [address] Care Team Providers Name Role Phone Anusha Goetz MD Primary Care Provider Reason for Visit Consultation (Routine) - Closed Specialty Diagnoses / Procedures Referred By Contact Refer red To Contact Gastroenterology Diagnoses Hepatitis C virus infection without hepatic coma, unspecified chronicity liver - Hep C (RNA in media) Maricel Deshpande, [facility] [place] Gastro 4l [employer]ESSING [employer]OURER [address] [place] [phone] Phone: Fax: Referral ID Status Reason Start Date Expiration Date Visits V isits Requested Authorized [id number] Closed Consult, 12/22/2021 12/22/2022 1 1 Test & Treat Encounter Details Date Type Department Care Team Description 01/31/2022 Office Visit Gastroenterology at [facility] [place] Yamila Salguero Chronic hepatitis C [facility] Angy Quiros [place] [address] [facility] [phone] [place] [address] Social History Tobacco Use Types Packs/Day Years Used Date Former Smoker Quit: 2015 Smokeless Tobacco: Never Used Sex Assigned at Date Recorded Not on file documented as of this encounter Last Filed Vital Signs Vital Sign Reading Time Taken Comments Blood Pressure 97/69 01/31/2022 2:15 PM EDT Pulse 92 01/31/2022 2:15 PM EDT Temperature - - Respiratory Rate - - Oxygen Saturation - - Inhaled Oxygen Concentration - - Weight - - Height - - Body Mass Index - - documented in this encounter Progress Notes Yamila Salguero APRN - 01/31/2022 2:00 PM EDT Images from the original note were not included. HEPATOLOGY NEW PATIENT CONSULTATION Ginger Barrera 1960 HOUSEHOLD COOK: YAMILA SALGUERO APRN PCP: Anusha Goetz MD Requesting Provider: REASON FOR CONSULTATION Hepatitis C HISTORY OF PRESENT ILLNESS Ginger Barrera is a 61 y.o. 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 She thought that her appointment was for her diarrhea and abdominal pain - has been told that she has overflow diarrhea. She gets an enema once a week and feels better afterwards - had one today. She first found out about having HCV years ago, when she was in her teens. She used IV drugs when she was 16. No jaundice. No prior treatment. No hx of liver biopsy. Has 1 professional tattoo. ROS: Constitutional: Generally has been feeing lousy due to bloating and diarrhea and urine overflow. No fever, chills Eye: no visual changes ENT: no URI symptoms Cardio: no chest pain, palpitations Resp: no cough. Has SOB if she lies flat. GI: see HPI. No blood in stools, no nausea/vomitting : Has a referral to see urology. Has been wetting the bed. Integumentary: no new rashes, no easy bruising Musculoskeletal: no new joint pains, swelling of ankles or legs Neuro: no new numbness, weakness in extremities PAST MEDICAL/SURGICAL HISTORY Diabetes Bipolar d/o Constipation Right sided paralysis - happened in 2013 from 3 strokes. MEDICATIONS Outpatient Medications Marked as Taking for the 01/31/22 encounter (Office Visit) with Yamila Salguero APRN Medication Sig Dispense Refill ??? carbidopa-levodopa (Sinemet) 25-100 mg Tablet Take 1 tablet by mouth 4 times daily. ??? mirtazapine (Remeron) 15 mg Tablet Take 15 mg by mouth. ??? traZODone (Desyrel) 50 mg Tablet Take 25 mg by mouth Twice daily as needed. ??? QUEtiapine (SEROquel) 100 mg Tablet Take 100 mg by mouth Three times a day. ??? gabapentin (NEURONTIN) 800 mg Tablet Take 800 mg by mouth daily. ??? levothyroxine (Synthroid) 100 mcg Tablet Take 100 mcg by mouth every evening. ??? empagliflozin (Jardiance) 25 mg Tablet Take 50 mg by mouth daily. ??? acetaminophen (Tylenol) 325 mg Tablet Take 650 mg by mouth every 4 hours as needed for Pain. ??? buPROPion XL (Wellbutrin XL) 300 mg Tablet Extended Release 24 hr Take 300 mg by mouth every morning. ??? gabapentin (Neurontin) 300 mg Capsule Take 300 mg by mouth every morning. ??? cetirizine (ZyrTEC) 10 mg Tablet Take 10 mg by mouth daily. ??? lamoTRIgine (LaMICtal) 25 mg Tablet Take 50 mg by mouth daily. ??? metFORMIN (GLUCOPHAGE) 1,000 mg Tablet Take 1,000 mg by mouth 2 times daily (with meals). ??? multivitamin Capsule Take 1 capsule by mouth daily. ??? magnesium oxide (Mag-Ox) 400 mg (241.3 mg magnesium) Tablet Take 800 mg by mouth daily. ??? polyethylene glycoL (Miralax) 17 gram/dose Powder Take 17 g by mouth daily. ??? QUEtiapine (SEROquel) 50 mg Tablet Take 50 mg by mouth 2 times daily. ??? fluticasone propionate (Flonase) 50 mcg/actuation [place], Suspension 1 spray daily. ??? Magnesium Chloride (Mag-Delay) 64 mg Tablet, Delayed Release (E.C.) Take by mouth. ??? omeprazole (PriLOSEC) 20 mg Capsule, Delayed Release(E.C.) Take 20 mg by mouth 2 times daily. ??? lactase (LACTAID) 3,000 unit Tablet Take 3 tablets by mouth 3 times daily (with meals). ALLERGIES Allergies Allergen Reactions ??? Oxycodone-Acetaminophen itching ??? Penicillins Itching ??? Sulfa (Sulfonamide Antibiotics) SOCIAL HISTORY . Has been living at [facility] for past 4 years. They give her medication. Alcohol: none currently Used to drink daily- over 10 drinks. Drank from age 15- 66. FAMILY HISTORY Mom and dad used to drink alcohol - not sure about liver problems. PHYSICAL EXAM Vitals: 01/31/22 1415 BP: 97/69 Pulse: 92 There is no height or weight on file to calculate BMI. Gen: Well appearing, no apparent distress. Skin: no spider angiomata, no palmar erythema, no jaundice. HEENT: Sclerae anicteric, pupils equal, round, react to light. Pharynx unremarkable. Neck is supple,no adenopathy, no thyromegaly. Chest is clear. Heart: Regular rate and rhythm. Normal S1, S2, no murmurs. Abdomen: Normal bowel sounds; soft, non distended. No obvious hepatosplenomegaly. No evidence of ascites Extremities: No edema. Neuro: alert and oriented x3, no asterixis or tremor. 03/30/2020: 03/29/2021: US Renal/Bladder 07/15/22; 1. ??No hydronephrosis bilaterally. 2. ??Nonshadowing echogenic foci in the right kidney may represent nonobstructing renal calculi or renal sinus fat. 3. ??Hepatic steatosis. Fibroscan Results: Median kPa: 17.1 kPa Mean IQR: 23% (goal is <30 %) Number of valid measurements: 13 (at least 10 required) Number of invalid measurements: 8 Predicted fibrosis stage: F4 CAP (dB/m): 351 Estimated steatosis grade: 3/3 % hepatocytes affected: > 66 % ASSESSMENT/PLAN Ginger Barrera is a 61 y.o. female with history of Hepatitis C, Bipolar disorder, hemiparalysis due to a stroke, and diabetes who presents for evaluation of her Hepatitis C. She has had Hepatitis C for nearly 45 years, likely contracted due to IV drug use at age 16. She hasnever had treatment of her Hepatitis C and I do not know her genotype. She previously drank alcohol,but does not drink currently as she lives at a facility due to hemiparalysis. Her FibroScan today isconsistent with cirrhosis which I believe is accurate given her long history of having hepatitis C and prior alcohol use. She is well compensated and child Napoles A. I would recommend treating her hepatitis C, either with 12 weeks of Epclusa or 8 weeks of Mavyret. Both of these are effective pangenotypic treatment regimens and did not appear to have interactions with her current medications. She would prefer to take 3 months of treatment so we will plan to use Epclusa. If this is not preferred by her insurance we can also use Mavyret. She will first need updated blood work and an ultrasound before the prior authorization can be submitted to her insurance. I willorder those today and that she can have her blood work done at the [facility]. Ultrasound can be done locally. Regarding her cirrhosis, she appears well compensated with no clear signs of portal hypertension. Her FibroScan is under 20 K PA and platelets are normal, thus so she does not need an upper endoscopy to screen for varices. She should have regular ultrasounds every 6 months to screen for HCC. She is due for an ultrasound now. By treating her hepatitis C and if she is able to continue to abstain from alcohol I would not expect her to have further progression of her liver disease or decompensation in the future. Recommendations - Blood work: HCV viral load, genotype, CBC, INR CMP, HIV screen, HAV Ab total, HBsAg, HBsAb, HBcAb total. This can be done at the [facility]. -When results return, we will submit prior authorization for direct acting antiviral therapy with 12weeks of Epclusa -We will use a proposed simplified treatment algorithm by joint IDSA/AASLD recommendations. Plan to check blood work (CMP, HCV RNA) 3 months post treatment. -Hepatology follow-up in 6 months with repeat ultrasound. - Regarding her diarrhea and abdominal pain, it does appear that she may have overflow diarrhea related to her underlying constipation. She would likely benefit from a clean out which can be done with colonoscopy prep. - Okay to take up to 2000mg of Tylenol in a 24 hour period. - REcommend ultrasound to be done locally. For Prior Authorization: ??? HCV viral load -updated labs to be done at [facility]. ??? Treatment Na??veGenotype: pending ??? Fibrosis Score: cirrhosis, well compensated. ??? HIV screen: pending ??? HBV serologies negative Yamila Salguero APRN Section of Gastroenterology [place] [address] Copy: Anusha Goetz MD [address] / [facility] [address] documented in this encounter Plan of Treatment Scheduled Orders Name Type Priority Associated Diagnoses Order S chedule Comprehensive metabolic Lab Routine Chronic hepatitis C Expected: 01/31/2022 panel (non-fasting) without hepatic coma (Approximate), Expires: 2021 CBC (with Diff) Lab Routine Chronic hepatitis C Expec leni: 01/31/2022 without hepatic coma (Approx imate), Expires: 2022 Prothrombin Time Lab Routine Chronic hepatitis C Expe cted: 01/31/2022 without hepatic coma (Approx imate), Expires: 2022 Hepatitis B Core Antibody, Lab Routine Chronic hepati tis C Expected: 01/31/2022 Total without hepatic coma (Approx imate), Expires: 2021 Hepatitis B Surface Lab Routine Chronic hepatitis C E xpected: 01/31/2022 Antibody without hepatic coma (Approx imate), Expires: 2021 Hepatitis B Surface Lab Routine Chronic hepatitis C E xpected: 01/31/2022 Antigen without hepatic coma (Approx imate), Expires: 2021 Hepatitis C genotype Lab Routine Chronic hepatitis C Expected: 01/31/2022 without hepatic coma (Approx imate), Expires: 2022 Hepatitis C RNA, Lab Routine Chronic hepatitis C Expe cted: 01/31/2022 quantitative, PCR without hepatic coma (A pproximate), Expires: 2022 HIV Screen, 4th Generation Lab Routine Chronic hepati tis C Expected: 01/31/2022 ([facility] [place] [place]/[facility]/APD/[facility]) without hepatic coma ( Approximate), Expires: 2021 US Abdomen Limited Imaging Routine Chronic hepatitis C Ex pected: 01/31/2022 without hepatic coma (Approx imate), Expires: 2022 documented as of this encounter Visit Diagnoses Diagnosis Chronic hepatitis C without hepatic coma documented in this encounter Care Teams Senior Game Designer Relationship Specialty Start Date End Date Anusha Goetz MD PCP - General Family Medicine 09/08/[address] [place] [address] documented as of this encounter
--- OUTSIDE RECORDS SUMMARY | 2022-03-17 00:41 | XMS_ITS | Encounter Summary ---
:1960 Author Organization [facility] Address [address] [place] [address] Care Team Providers Name Role Phone Unknown, Provider Primary Care Provider Encounter Details Date Type Department Care Team Description 02/22/2011 Results Only [facility] Andrzej Chaney, Laboratory Services - Liza MATT [address] [place] [address] [place], [place] [phone] (Wo rk) Social History Tobacco Use Types Packs/Day Years Used Date Current Every Day Smoker Cigarettes 0.5 40 Alcohol Use Standard Drinks/Week Comments Yes [id number] (1 standard drink = 0.6 oz pure [...] Visit Urology Reji Foster MD [address] [facility], [address] [place], [place] [address] (Wo rk) documented as of this encounter Procedures Procedure Name Priority Date/Time Associated Comments Diagnosis URINE MICROSCOPIC Routine 02/22/2011 13:55 Result s for this EDT procedure are i n the results section. URINALYSIS WITH Routine 02/22/2011 13:55 Results for this MICROSCOPIC IF EDT procedure are in POSITIVE the results section. URINE CULTURE IF Routine 02/22/2011 13:55 Results for this POSITIVE EDT procedure are i n the results section. BACTERIAL CULTURE, Routine 02/22/2011 13:55 Resul ts for this URINE EDT procedure are i n the results section. documented in this encounter Results BACTERIAL CULTURE, URINE (02/22/2011 13:55 EDT) Specimen Description Urine [facility] Result Greater than [facility] 100,000 CFU/ml LAB ESCHERICHIA COLI Report Status Final [facility] 02/24/2011 LAB Specimen Organism Antibiotic Method Susceptibility Greater [...] Susceptible Greater than 100,000 Amikacin SUSCEPTIBILITY (GISELLE) 4 cfu/ml escherichia Susceptible coli Susceptible Greater than 100,000 Ceftriaxone SUSCEPTIBILITY (GISELLE) <=1 cfu/ml escherichia Susceptible coli Susceptible Greater than 100,000 Ciprofloxacin SUSCEPTIBILITY (GISELLE) >=4 cfu/ml escherichia Resistant coli Resistant Greater than 100,000 Meropenem SUSCEPTIBILITY (GISELLE) <=0.25 cfu/ml escherichia Susceptible coli Susceptible Performing Organization Address City/State/ZIP Code Phon e Number [facility] [address] [place] [address] SERVICES [facility] [address] [place] [address] (ABNORMAL) URINE MICROSCOPIC (02/22/2011 13:55 EDT) WBC, UA 10 to 50 0 - 5 /HPF [facility] RBC, UA 1 to 5 0 - 5 /HPF [facility] Squam Epithel, UA Few (A) NS /HPF [facility] Renal Epithel, UA None seen NS /HPF [facility] Bacteria, UA Many (A) NS /HPF [facility] Crystals, UA 1 to 10Comment: /HPF [facility] Triple Phosphate LAB Hyaline Casts, UA None seen /LPF [facility] UA Comment Microscopic results [facility] are unreliable on LAB urines unrefrig >2hrs or refrig >8hrs. Additional Findings Amorphous material [facility] present LAB Specimen Performing Organization Address City/[facility]/ZIP Code Phon e Number [facility] [address] [place] [address] SERVICES [facility] [address] [place] [address] (ABNORMAL) URINALYSIS (02/22/2011 13:55 EDT) Pathologist Sig nature Color, UA Yellow [facility] Clarity, UA Clear [facility] Glucose, UA Neg NEG [facility] Bilirubin, UA Neg NEG [facility] Ketones, UA Neg NEG [facility] Specific [place], 1.020 1.001 - 1.035 [facility] Urine Blood, UA Neg NEG [facility] pH, UA 7.5 4.6 - 8.0 [facility] Protein, UA Neg NEG [facility] Urobilinogen, UA 0.2 0.2 - 1.0 [facility] E.U./dl Nitrite, UA Pos (A) NEG [facility] Leuk Esterase 1+ (A) NEG [facility] Specimen Performing Organization Address [facility]/ZIP [facility] [place] Phon e Number [facility] [address] [place] [address] SERVICES [facility] [address] [place] [address] URINE CULTURE IF UA POSITIVE - NON POCT URINALYSIS ONLY (02/22/2011 13:55 EDT) Culture if Culture indicated [facility] Indicated by urinalysis results. Specimen Performing Organization Address [facility]/ZIP [facility] [place] Phon e Number [facility] [address] [place] [address] SERVICES [facility] [address] [place] [address] documented in this encounter Visit Diagnoses Not on filedocumented in this encounter Care Teams Seaming Machine Operator Relationship Specialty Start Date End Date Unknown, Provider, PCP - General 12/08/10 07/16/11 documented as of this encounter
--- OUTSIDE RECORDS SUMMARY | 2022-03-17 00:41 | XMS_ITS | Encounter Summary ---
:1960 Author Organization [facility] [place] [address] Care Team Providers Name Role Phone Unavailable Primary Care Provider Unavailable Encounter Details Date Type Department Care Team Description 10/15/2018 Ancillary Procedure Radiology Library at Christy Deshpande [facility] [place] JOSEY Quiros [facility] [address] [place] [id number] [phone] (Wo rk) Social History Tobacco Use Types Packs/Day Years Used Date Never Assessed Sex Assigned at Date Recorded Not on file documented as of this encounter Plan of Treatment Not on filedocumented as of this encounter Procedures Procedure Name Priority Date/Time Associated Diagnosis Comme nts FILM LIBRARY Routine 10/15/2018 12:00 AM Results for this STORAGE ONLY MAMMO EST procedure are in the results section. documented in this encounter Results Film Library- Storage Only Mammo (10/15/2018 12:00 AM EST) Specimen (Source) Anatomical Location Collection Method / Collectio n Time Received Time / Laterality Volume Narrative JS - 07/31/2020 10:29 AM EST This exam is auto-finalizing. It's purpo se is for storage only. Maricel Deshpande APRN Freddie FILM LIBRARY ORDERABLES Performing Organization Address City/State/ZIP Code Phon e Number [place], [place] documented in this encounter Visit Diagnoses Not on filedocumented in this encounter
--- OUTSIDE RECORDS SUMMARY | 2022-03-17 00:41 | XMS_ITS | Encounter Summary ---
:1960 Author Organization [facility] Address [address] [place] [address] Care Team Providers Name Role Phone Unknown, Provider Primary Care Provider Encounter Details Date Type Department Care Team Description 02/22/2011 Hospital Encounter [facility] - Katerine Glass MD [address] [address] [place] [address] (Wo rk) Social History Tobacco Use Types Packs/Day Years Used Date Current Every Day Smoker Cigarettes 0.5 40 Alcohol Use Standard Drinks/Week Comments Yes 1.183684690686309035 (1 standard drink = 0.6 oz pure [...] Office Visit Urology Reji Foster MD [address] [facility], [facility], [address] [place], [place] [address] (Wo rk) documented as of this encounter Visit Diagnoses Not on filedocumented in this encounter Care Teams Oxyacetylene Welder Relationship Specialty Start Date End Date Unknown, Provider, PCP - General 12/08/10 07/16/11 documented as of this encounter
--- OUTSIDE RECORDS SUMMARY | 2022-03-17 00:41 | XMS_ITS | Encounter Summary ---
:1960 Author Organization [facility] Address [address] [place] [address] Care Team Providers Name Role Phone Unknown, Provider Primary Care Provider Encounter Details Date Type Department Care Team Description 02/22/2011 Orders Only [facility] Marisol Garcia, primary Rheumatology & XIOMARA Al REPRESENTATIVE GOVERNMENT RELATIONS ([facility]) (Primary Immunology - Main Ca mpus Dx) [address] [place], [place] [id number] Social History Tobacco Use Types Packs/Day Years Used Date Current Every Day Smoker Cigarettes 0.5 40 Alcohol Use Standard Drinks/Week Comments Yes [id number] (1 standard drink = 0.6 oz pure [...] MD 111 [facility], [facility], [address] [place], [place] [address] (Wo rk) documented as of this encounter Visit Diagnoses Diagnosis Vasculitis, primary REPRESENTATIVE GOVERNMENT RELATIONS ([facility]) (HCC) - Primary Arteritis, unspecified documented in this encounter Care Teams Supervisor Accounts Receivable Relationship Specialty Start Date End Date Unknown, Provider, PCP - General 12/08/10 07/16/11 documented as of this encounter
--- OUTSIDE RECORDS SUMMARY | 2022-03-17 00:41 | XMS_ITS | Encounter Summary ---
:1960 Author Organization [facility] [place] [address] Care Team Providers Name Role Phone Anusha Goetz MD Primary Care Provider Encounter Details Date Type Department Care Team Description 10/11/2020 Hospital Encounter Mammography/DXA at [facility] onclusive [facility] Maricel Quiros APRN mammography [address] [id number] Social History Tobacco Use Types Packs/Day Years Used Date Never Assessed Sex Assigned at Date Recorded Not on file documented as of this encounter Plan of Treatment Not on filedocumented as of this encounter Procedures Procedure Name Priority Date/Time Associated Diagnosis Comme nts MAMMO DIAGNOSTIC Routine 10/11/2020 11:00 Inconclusive Results for this CAD AND ONESIMO RIGHT AM EST mammography procedure are in the results section. documented in this encounter Results Mammo Diagnostic Cad and Onesimo Right (10/11/2020 11:00 AM EST) Anatomical Region Laterality Modality Breast Right Mammography Specimen (Source) Anatomical Location Collection Method / Collectio n Time Received Time / Laterality Volume Narrative 10/11/2020 1:35 PM EST RIGHT MAMMOGRAPHY REASON FOR EXAM: [facility] DIDN'T COMPLETE MA MMOGRAM, PT IN A WHEELCHAIR, RT MAMMO NEEDS TO BE COMPLETED TECHNIQUE: CC and MLO views were obtaine d of the right breast using standard 2-D mammography as well as 3-D tomosynthesis . Computer aided detection was used. Comparison: This is compared with prior images. FINDINGS: There are scattered areas of f ibroglandular density. There are no suspicious microcalcifications, masses, or areas of distortion. The pattern is stable. Considering patient/positioning limitations, the focal asymmetry of the deep central right breast appears stable since 10/15/2018. Dystrophic benign-appearing calcifications are agai n identified. CONCLUSION: No mammographic evidence of malignancy. RECOMMENDATION: Routine screening. A result letter has been sent to this pa tient by the [facility]. BIRADS CATEGORY 2: Benign findings. * ??Regular screening mammograms startin g between age 40 and 50 reduces the risk of from breast cancer. * ??All screening tests have both risks and benefits. These risks and benefits should be assessed for each individual p atient through discussion with their provider to determine their preferred east cancer screening schedule. * ??Women should report any breast cerda es to a health care provider right away. * ??Some women, because of their family history, a genetic tendency, or other factors, should be screened with annual breast MRI as well as with mammograms. (The number of women who fall into this category is very small). Patients and health care providers should discuss eac h patients history to decide if earlier screening and/or breast MRI are appropri ate. * ??Screening should continue as long as a woman is in good health and is expected to live 10 years or longer. * ??Screening mammography may not detect 10-15% of breast cancers. Thank you for letting us participate in the care of this patient. For questions regarding this report, please contact e number below. ? Maricel RAMIRESG MAMMO ORDERABLES documented in this encounter Visit Diagnoses Diagnosis Inconclusive mammography Inconclusive mammogram documented in this encounter Care Teams Test Lead Relationship Specialty Start Date End Date Anusha Goetz MD PCP - General Family Medicine 09/08/[address] [place] [address] documented as of this encounter
--- OUTSIDE RECORDS SUMMARY | 2022-03-17 00:41 | XMS_ITS | Encounter Summary ---
:1960 Author Organization [facility] [place] [address] Care Team Providers Name Role Phone Unavailable Primary Care Provider Unavailable Encounter Details Date Type Department Care Team Description 06/02/2020 Ancillary Procedure Radiology Library at Christy Deshpande [facility] [place] Quiros [facility] [address] [place] [phone] (Wo rk) Social History Tobacco Use Types Packs/Day Years Used Date Never Assessed Sex Assigned at Date Recorded Not on file documented as of this encounter Plan of Treatment Not on filedocumented as of this encounter Procedures Procedure Name Priority Date/Time Associated Diagnosis Comme nts FILM LIBRARY Routine 06/02/2020 12:00 AM Results for this STORAGE ONLY MAMMO EDT procedure are in the results section. documented in this encounter Results Film Library- Storage Only Mammo (06/02/2020 12:00 AM EDT) Specimen (Source) Anatomical Location Collection Method / Collectio n Time Received Time / Laterality Volume Narrative JS - 07/31/2020 10:31 AM EST This exam is auto-finalizing. It's purpo se is for storage only. Maricel Deshpande APRN IMG FILM LIBRARY ORDERABLES Performing Organization Address City/State/ZIP Code Phon e Number JS [place], [place] documented in this encounter Visit Diagnoses Not on filedocumented in this encounter
--- OUTSIDE RECORDS SUMMARY | 2022-03-17 00:41 | XMS_ITS | Clinical Summary ---
:1960 Author Organization [facility] [place] [address] Care Team Providers Name Role Phone Anusha Goetz MD Primary Care Provider Allergies Active Allergy Reactions Severity Noted Date Comments Oxycodone-Acetaminophen 08/16/2011 itch ing Penicillins Itching 12/09/2010 Sulfa (Sulfonamide Antibiotics) 1 Medications Medication Sig Dispensed Refills Start Date End Date Status carbidopa-levodopa Take 1 tablet by 0 Active (Sinemet) 25-100 mg mouth 4 times Tablet daily. mirtazapine (Remeron) Take 15 mg by 0 Active 15 mg Tablet mouth. traZODone (Desyrel) 50 Take 25 mg by 0 Active mg Tablet mouth Twice daily as needed. QUEtiapine (SEROquel) Take 100 mg by 0 Active 100 mg Tablet mouth Three times a day. gabapentin (NEURONTIN) Take 800 mg by 0 Active 800 mg Tablet mouth daily. levothyroxine Take 100 mcg by 0 Active (Synthroid) 100 mcg mouth every Tablet evening. empagliflozin Take 50 mg by 0 Ac tive (Jardiance) 25 mg mouth daily. Tablet acetaminophen (Tylenol) Take 650 mg by 0 Active 325 mg Tablet mouth every 4 hours as needed for Pain. buPROPion XL Take 300 mg by 0 Ac tive (Wellbutrin XL) 300 mg mouth every Tablet Extended Release morning. 24 hr gabapentin (Neurontin) Take 300 mg by 0 Active 300 mg Capsule mouth every morning. cetirizine (ZyrTEC) 10 Take 10 mg by 0 Active mg Tablet mouth daily. lamoTRIgine (LaMICtal) Take 50 mg by 0 Active 25 mg Tablet mouth daily. metFORMIN (GLUCOPHAGE) Take 1,000 mg by 0 Active 1,000 mg Tablet mouth 2 times daily (with meals). multivitamin Capsule Take 1 capsule by 0 Active mouth daily. magnesium oxide Take 800 mg by 0 Active (Mag-Ox) 400 mg (241.3 mouth daily. mg magnesium) Tablet polyethylene glycoL Take 17 g by 0 Active (Miralax) 17 gram/dose mouth daily. Powder QUEtiapine (SEROquel) Take 50 mg by 0 Active 50 mg Tablet mouth 2 times daily. fluticasone propionate 1 spray daily. 0 Active (Flonase) 50 mcg/actuation [place], Suspension Magnesium Chloride Take by mouth. 0 Active (Mag-Delay) 64 mg Tablet, Delayed Release (E.C.) omeprazole (PriLOSEC) Take 20 mg by 0 Active 20 mg Capsule, Delayed mouth 2 times Release(E.C.) daily. lactase (LACTAID) 3,000 Take 3 tablets by 0 Active unit Tablet mouth 3 times daily (with meals). 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 12/09/2010 Purified surface Antigen) Pfizer Covid-19 (Purple Cap) Vaccine 07/07/2021, 10/19/2020, 09/29/2020 (12yrs+) Pneumococcal Polyvalent 23 12/09/2010 Family History Medical History Relation Comments Breast Cancer Neg Hx Social History Tobacco Use Types Packs/Day Years [...] - - Body Mass Index - - Plan of Treatment Health Maintenance Due Date Last Done Comments HIV screen 1978 Hepatitis C Screening 1978 Tdap adult 1979 Tetanus vaccine 1979 HPV test 1990 PAP Smear 1990 Breast Cancer Share Decision Needed 2000 Colonoscopy 2005 Breast Cancer screening 2010 Zoster vaccine (1 of 2) 2010 Advance Directive 2015 Influenza (Flu) vaccine (1 of 1 - 05/25/2021 Influenza standard series) Covid-19 Vaccine (4 - Booster) 11/07/2021 07/07/2021, 10/19, 09/29/2020 Insurance Payer Benefit Plan / Subscriber ID Effective Dates Phone Addre ss Type [place] [id number] 2020-Pres [phone] [address] [place] [address] [phone] [facility] [address] [facility] John e Tremayne Chaidez [id number] Care Teams Mid Level Project Manager Relationship Specialty Start Date End Date Anusha Goetz MD PCP - General Family Medicine 09/08/[address] [place] [address]
--- OUTSIDE RECORDS SUMMARY | 2022-03-17 00:41 | XMS_ITS | Encounter Summary ---
:1960 Author Organization [facility] Address [address] [place] [address] Care Team Providers Name Role Phone Unknown, Provider Primary Care Provider Encounter Details Date Type Department Care Team Description 12/14/2010 Phlebotomy Only [facility] - Oncology Nurse Navigator, [facility] Outpatient [address] [place], [place] [id number] Social History Tobacco Use Types Packs/Day Years Used Date Current Every Day Smoker Cigarettes 0.5 40 Alcohol Use Standard Drinks/Week Comments Yes [id number] (1 standard drink = 0.6 oz pure [...] Visit Urology Reji Foster MD [address] 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
--- OUTSIDE RECORDS SUMMARY | 2022-03-17 00:41 | XMS_ITS | Encounter Summary ---
:1960 Author Organization [facility] Address [address] [place] [address] Care Team Providers Name Role Phone Unknown, Provider Primary Care Provider Encounter Details Date Type Department Care Team Description 12/09/2010 Results Only [facility] Maximiliano Garrett MD Psychiatry - S Prosp ect [address] [facility] [address] [place] [address] [place] [phone] (Wo rk) Social History Tobacco Use Types Packs/Day Years Used Date Current Every Day Smoker Cigarettes 0.5 40 Alcohol Use Standard Drinks/Week Comments Yes [id number] (1 standard drink = 0.6 oz pure alcohol) Sex Assigned at Date Recorded Not on file documented as of this encounter Plan of Treatment Upcoming Encounters Date Type Specialty Care Team Description 06/13/2022 Appointment Radiology 06/13/2022 Office Visit Urology Reji Foster MD [address] [facility] [place] [facility], [facility], [address] [place], [place] [address] (Wo rk) documented as of this encounter Procedures Procedure Name Priority Date/Time Associated Diagnosis Comme nts CYTOPATHOLOGY Routine 12/09/2010 0:00 EDT Results for this procedure are i n the results section . documented in this encounter Results CYTOPATHOLOGY (12/09/2010 0:00 EDT) Pathology Report: CYTOPATHOLOGY REPORT ? [facility] ? LAB Reports generated via electr onic interface contain original data; ? however they are lacking the format of the original report. ? Caution should be taken when reading/interpreting unformatted reports. ? Name: ? DIANE, GINGER ? Accession #: ? [id number] ? : ? 1960 (Age: 50) ??F ?Collect Date: ? 12/09/2010 ? Location: ? M006 ? Receive Date: ? 12/12/2010 ? Provider: ? LIT ROMAN DE MD ? Copy to: ?AMINATA W SUNSHINE MILL MD ? CYTOLOGIC DIAGNOSIS: ? Cerebrospinal fluid, cytologic evaluation: ? - Increased numbers of small lymphocytes. ??See comment. ? COMMENT: ? Although there are an increased number of small lymphocytes, it is ? difficult to further charact erize the process due to overall poor preservation ?? of the cells seen. ??Clinica l correlation is recommended. ??(Dr. Salmon)/mms ? Document reviewed and electr onically signed by: ? DENIZ SALMON MD ? Report Date: ??12/13/2010 16 :59 ? By the signature above, the attending physician certifies that he/she has ? personally conducted a gross and/or microscopic examination of the described ? specimens and rendered or co nfirmed the above diagnosis. ? Specimen Type: ? Cerebrospinal Fluid ? Clinical History: ? H/A, elevated esr, mu ltiple small brainstem infarcts. ? Gross Description: ? 0.5 cc of clear color less fluid were received and processed by selective ?? cellular enhancement techniq ue. ? End of Report ? 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
--- OUTSIDE RECORDS SUMMARY | 2022-03-17 00:41 | XMS_ITS | Encounter Summary ---
:1960 Author Organization [facility] Address [address] [place] [address] Care Team Providers Name Role Phone Unknown, Provider Primary Care Provider Encounter Details Date Type Department Care Team Description 12/21/2010 Phlebotomy Only [facility] - Product Support Analyst, [facility] Outpatient [address] [place], [place] [address] Social History Tobacco Use Types Packs/Day Years Used Date Current Every Day Smoker Cigarettes 0.5 40 Alcohol Use Standard Drinks/Week Comments Yes [id number] (1 standard drink = 0.6 oz pure [...] Office Visit Urology Reji Foster MD [address] [facility], [facility] [address], [address] [place], [place] [address] (Wo rk) documented as of this encounter Visit Diagnoses Not on filedocumented in this encounter Care Teams Flosser Relationship Specialty Start Date End Date Unknown, Provider, PCP - General 12/08/10 07/16/11 documented as of this encounter
--- OUTSIDE RECORDS SUMMARY | 2022-03-17 00:41 | XMS_ITS | Encounter Summary ---
:1960 Author Organization [facility] [place] [address] Care Team Providers Name Role Phone Anusha Goetz MD Primary Care Provider Reason for Referral Consultation (Routine) - Closed Specialty Diagnoses / Procedures Referred By Contact Refer red To Contact Gastroenterology Diagnoses Hepatitis C virus infection without hepatic coma, unspecified chronicity liver - Hep C (RNA in media) Maricel Deshpande, [facility] [employer] [address] [place] [phone] Phone: Fax: Referral ID Status Reason Start Date Expiration Date Visits V isits Requested Authorized [id number] Closed Consult, 12/22/2021 12/22/2022 1 1 Test & Treat Encounter Details Date Type Department Care Team Description 12/22/2021 Transcribe Orders eDH Incoming Jeramy Hepatitis C virus Referrals Maricel Quiros APRN infection without [phone] [place] [address] hepatic coma , RD unspecified [place], [place] chronicity ( Primary [id number] Dx) Social History Tobacco Use Types Packs/Day Years Used Date Never Assessed Sex Assigned at Date Recorded Not on file documented as of this encounter Plan of Treatment Scheduled Referrals Name Type Priority Associated Order Schedule Diagnoses Referral to Outpatient Routine Hepatitis C virus Ordered: Gastroenterology Referral infection without 2021 hepatic coma, unspecified chronicity documented as of this encounter Visit Diagnoses Diagnosis Hepatitis C virus infection without hepa tic coma, unspecified chronicity - Primary documented in this encounter Care Teams Software Quality Tester Relationship Specialty Start Date End Date Anusha Goetz MD PCP - General Family Medicine 09/08/[address] [place] [address] documented as of this encounter
--- NOTE | 2022-03-17 07:30 | DI.US_ITS ---
Exam(s) US ABDOMEN LIMITED EXAM: US ABDOMEN LIMITED CLINICAL HISTORY: CHRONIC HEPATITIS C WO HEPATIC COMA, B18.2; CIRRHOSIS; SCREEN FOR HCC TECHNIQUE: Ultrasound abdomen performed using standard protocol. COMPARISON: US US ABDOMEN from 03/30/2020 FINDINGS: PANCREAS: Normal where visualized. LIVER: There is diffuse increased echogenicity. Hepatopedal flow in the Portal Vein. The liver measu res in 17.2 cm length. GALLBLADDER:There are mobile gallstones present. No evidence of wall thickening. No pericholecystic fluid identified. BILIARY SYSTEM: Common bile duct measures < 7 mm. No intrahepatic biliary ductal dilation. JOSHUA'S SIGN: Negative. RIGHT KIDNEY: Kidney is normal in size. No evidence of renal calculi. No evidence of hydronephrosis. No renal mass or cyst identified. ASCITES: None seen. IMPRESSION: 1. Hepatic steatosis. 2. Cholelithiasis. No sonographic evidence of acute cholecystitis. DATA REPOSITORY:
== END ==
PROVIDERS: PCP Family Medicine; Visit Provider Nurse Practitioner Adult Health
DX: B18.2 Chronic viral hepatitis C (principal); K76.0 Fatty (change of) liver, not elsewhere classified; K80.20 Calculus of gallbladder without cholecystitis without obstruction
CPT/HCPCS: 76705

== ENCOUNTER → 2022-03-17 00:44 | Outpatient (CLI) | payer MEDICAID, SELFPAY ==
--- NOTE | 2022-03-17 08:02 | DI.RAD_ITS ---
Exam(s) XR FOOT RT LIMITED EXAM: XR FOOT RT LIMITED CLINICAL HISTORY: TRAUMA. TECHNIQUE: 2D digital imaging was performed of the right foot. Two images were obtained. AP and la teral views were obtained. COMPARISON: No exams were available for comparison FINDINGS: BONES: No acute fracture is present. No bony destructive lesion is seen. There are deformities of bot h the distal 4th and 5th metatarsals which appear old. However this is a limited examination and an oblique view should be considered for further evaluation to assess for an acute fracture at these loc ations. The bones are osteopenic. Postsurgical changes are seen at the 1st and 2nd tarsometatarsal joints. JOINTS: No dislocation present. SOFT TISSUE: Extensive atherosclerosis is present. IMPRESSION: 1. Deformities involving the 4th and 5th metatarsals which may be old. However, an oblique view of t he foot should be obtained for further evaluation. 2. Postsurgical changes of the 1st and 2nd tarsometatarsal joints. 3. Diffuse osteopenia. 4. Extensive atherosclerosis. DATA REPOSITORY: RADIATION DOSE DELIVERED:
--- NOTE | 2022-03-17 08:02 | DI.RAD_ITS ---
Exam(s) XR ANKLE RT 2V EXAM: XR ANKLE RT 2V CLINICAL HISTORY: TRAUMA. TECHNIQUE: 2D digital imaging was performed of the right ankle. Two images were obtained. AP and l ateral views were obtained. COMPARISON: No exams were available for comparison FINDINGS: BONES: No acute fracture is present. No bony destructive lesion is seen. The bones are osteopenic. Postsurgical changes are seen in the midfoot. JOINTS: The ankle mortise is normally aligned. SOFT TISSUE: Extensive atherosclerosis is present. IMPRESSION: No acute fracture or dislocation. DATA REPOSITORY: RADIATION DOSE DELIVERED:
== END ==
PROVIDERS: PCP Family Medicine; Visit Provider Nurse Practitioner Gerontology
DX: M25.571 Pain in right ankle and joints of right foot (principal); M79.671 Pain in right foot; M85.88 Other specified disorders of bone density and structure, other site; M21.6X1 Other acquired deformities of right foot; Z98.890 Other specified postprocedural states
CPT/HCPCS: 73600; 73620

== ENCOUNTER 2022-03-17 02:17 | Outpatient (CLI) | payer MEDICAID, SELFPAY ==
[2022-03-17 08:37] LABS: Abs Immature Grans 0.03 10^3/uL (0.0-0.06); Absolute Basophil Count 0.04 10^3/uL (0.0-0.2); Absolute Eosinophil Count 0.12 10^3/uL (0.0-0.7); Absolute Lymphocyte Count 2.41 10^3/uL (1.2-3.4); Basophils % 0.5; Eosinophils % 1.6; HGB 11.3 g/dL (11.2-15.7); Immature Grans % 0.4; MCH 24.9 pg (27.0-33.0); MCHC 29.7 % (32.0-36.0); MCV 84 fL (80-95); MPV 9.3 fL (8.0-11.0); Monocytes % 6.8; Neutrophils % 57.7; Platelet Count 276 10^3/uL (130-400); RBC 4.54 10^6/uL (3.93-5.22); RDW 16.2 % (11.7-14.6); RDW-SD 49.5 fL
[2022-03-17 08:43] LABS: Prothrombin Time 9.7 sec (9.3-11.0)
[2022-03-17 08:58] LABS: ALT 14 U/L (14-59); AST 43 U/L (15-37); Albumin 3.6 g/dL (3.4-5.0); Alkaline Phosphatase 86 U/L (46-116); Anion Gap 10.7 mmol/L (3-11); BUN 10 mg/dL (7-18); Bilirubin, Total 0.3 mg/dL (0.2-1.0); CO2 26.3 mmol/L (21.0-32.0); CREATININE 0.7 mg/dL (0.55-1.02); Calcium 9.4 mg/dL (8.5-10.1); Chloride 104 mmol/L (98-107); Glucose 107 mg/dL (74-106); Potassium 4.1 mmol/L (3.5-5.1); Sodium 141 mmol/L (136-145); Total Protein 7.8 g/dL (6.4-8.2)
[2022-03-20 10:44] LABS: HBs Antibody, Quant <3.1 mIU/mL (See Note); Hepatitis B Surface Ab Negative (See Note)
[2022-03-20 10:53] LABS: Hepatitis B Surface Ag Negative (Negative)
[2022-03-20 11:11] LABS: HIV-1/2 Ag & Ab Screen Negative (Negative)
[2022-03-20 11:23] LABS: Hep B Core Antibody Negative (Negative)
[2022-03-20 13:15] LABS: HCV RNA Detection Quantitative 12400000 IU/mL (Undetected); HCV RNA Qualitative Detected (Undetected)
[2022-03-21 19:28] LABS: HCV Genotype 1a (Undetected)
== END 2022-03-17 02:18 | disposition home or self-care (01) ==
LOC: LBO 02:17
PROVIDERS: PCP Family Medicine; Visit Provider Nurse Practitioner Adult Health
DX: B18.2 Chronic viral hepatitis C (principal); Z11.4 Encounter for screening for human immunodeficiency virus [HIV]
CPT/HCPCS: 36415; 80053; 86704; 86706; 87340; 87389; 87522; 85025; 85610; 87521

== ENCOUNTER 2022-03-30 17:32 | Outpatient (REF) | payer MEDICAID, SELFPAY ==
[2022-03-30 18:43] LABS: Abs Immature Grans 0.07 10^3/uL (0.0-0.06); Absolute Basophil Count 0.03 10^3/uL (0.0-0.2); Absolute Eosinophil Count 0.03 10^3/uL (0.0-0.7); Absolute Lymphocyte Count 1.19 10^3/uL (1.2-3.4); Absolute Monocyte Count 0.16 10^3/uL (0.1-0.8); Absolute Neutrophil Count 6.29 10^3/uL (1.2-6.7); Basophils % 0.4; Eosinophils % 0.4; HCT 37.8 % (36.0-46.0); HGB 10.9 g/dL (11.2-15.7); Immature Grans % 0.9; Lymphocytes % 15.3; MCH 24.3 pg (27.0-33.0); MCHC 28.8 % (32.0-36.0); MCV 84 fL (80-95); MPV 10.1 fL (8.0-11.0); Monocytes % 2.1; Neutrophils % 80.9; Platelet Count 311 10^3/uL (130-400); RBC 4.48 10^6/uL (3.93-5.22); RDW 16.5 % (11.7-14.6); RDW-SD 51.3 fL; WBC 7.77 10^3/uL (4.4-10.8)
[2022-03-30 19:01] LABS: ALT 24 U/L (14-59); AST 28 U/L (15-37); Albumin 3.6 g/dL (3.4-5.0); Alkaline Phosphatase 79 U/L (46-116); Anion Gap 12.8 mmol/L (3-11); BUN 16 mg/dL (7-18); Bilirubin, Total 0.2 mg/dL (0.2-1.0); CO2 23.2 mmol/L (21.0-32.0); CREATININE 0.9 mg/dL (0.55-1.02); Calcium 9.4 mg/dL (8.5-10.1); Chloride 100 mmol/L (98-107); Glucose 292 mg/dL (74-106); Potassium 4.9 mmol/L (3.5-5.1); Sodium 136 mmol/L (136-145); Total Protein 7.5 g/dL (6.4-8.2)
== END 2022-03-30 17:33 | disposition home or self-care (01) ==
LOC: LBN 17:32
PROVIDERS: PCP Family Medicine; Visit Provider Nurse Practitioner Gerontology
DX: E11.59 Type 2 diabetes mellitus with other circulatory complications (principal); K59.01 Slow transit constipation; E27.49 Other adrenocortical insufficiency; D75.89 Other specified diseases of blood and blood-forming organs; K73.8 Other chronic hepatitis, not elsewhere classified
CPT/HCPCS: 80053; 85025

== ENCOUNTER 2022-06-01 11:12 | Emergency (ER) | payer MEDICAID, SELFPAY ==
[2022-06-01 11:15] VITALS: BP 115/79; PULSE 90; RESP 16; TEMP 35.9; O2SAT 94
--- NOTE | 2022-06-01 11:45 | RT.EKG_ITS ---
APPROVED REPORT Exam: Resting ECG Reason for Exam: chest pain Patient Location: E HR:90 bpm ECG Measurements Heart Rate 90 AXIS RI 151 P 71 QRSd 91 QRS 27 QT 363 T 42 QTc 444 Conclusion Sinus rhythm...normal P axis, V-rate 60- 99 Low voltage, precordial leads...precordial leads <1.0mV. Sinus. Normal axis. No STEMI. I have reviewed and interpreted ECG and agree with software generated interpretation.
[2022-06-01 11:51] LABS: Abs Immature Grans 0.01 10^3/uL (0.0-0.06); Absolute Basophil Count 0.03 10^3/uL (0.0-0.2); Absolute Eosinophil Count 0.12 10^3/uL (0.0-0.7); Absolute Lymphocyte Count 2.38 10^3/uL (1.2-3.4); Absolute Monocyte Count 0.48 10^3/uL (0.1-0.8); Absolute Neutrophil Count 3.85 10^3/uL (1.2-6.7); Basophils % 0.4; Eosinophils % 1.7; HCT 39.2 % (36.0-46.0); HGB 11.6 g/dL (11.2-15.7); Immature Grans % 0.1; Lymphocytes % 34.6; MCHC 29.6 % (32.0-36.0); MCV 81 fL (80-95); MPV 9.4 fL (8.0-11.0); Neutrophils % 56.2; Platelet Count 303 10^3/uL (130-400); RBC 4.83 10^6/uL (3.93-5.22); RDW 16.6 % (11.7-14.6); RDW-SD 49.1 fL; WBC 6.87 10^3/uL (4.4-10.8)
--- NOTE | 2022-06-01 11:54 | ED.GENADUL_ITS ---
Discharge Plan Disposition Patient Disposition: HOME Condition: Stable Discharge Details Clinical Impression: UTI (urinary tract infection), Pneumonia, Chronic diarrhea Primary Care Provider: Agueda Bingham ED Provider: Marisol Vegas [place] Meds and New Rx's Prescriptions: New levofloxacin 750 mg tablet 750 mg PO DAILY 5 Days Qty: 5 0RF Continued trazodone 50 mg tablet 25 mg PO BID metformin 500 mg tablet 1,000 mg PO BID bisacodyl 10 mg suppository 10 mg HI ONCE PRN magnesium hydroxide [Milk of Magnesia] 400 mg/5 mL suspension 5 ml PO .q 3 days PRN levothyroxine 125 mcg capsule 100 mcg PO HS lactase [Lactaid] 3,000 unit tablet 9,000 unit PO TID Rx Instructions: administer with meals and/or snacks carbidopa-levodopa 1 EACH tablet 1 tab PO QID Multivitamin/Iron/Folic Acid [Centrum Adults Tablet] 1 EACH tablet 1 tab PO DAILY acetaminophen [Tylenol] 325 mg Tablet 650 mg PO DAILY docusate sodium [Colace] 100 mg Capsule 100 mg PO .BID, PRN mirtazapine 15 mg Tablet 15 mg PO QHS lamotrigine [Lamictal] 25 mg Tablet 50 mg PO DAILY Qty: 1 0RF Nu-Mag 71.5 mg tablet,delayed release (DR/EC) 64 mg PO BID quetiapine 100 mg tablet 50 mg PO DAILY Label Comments: 100 mg BID, 50 mg daily at 2pm sennosides [Senokot] 8.6 mg Tablet 8.6 mg PO BID polyethylene glycol 3350 [Miralax] 17 gram/dose Powder 17 g PO DAILY aspirin 81 mg Tablet,Delayed Release (Dr/Ec) 81 mg PO DAILY bupropion HCl 150 mg tablet extended release 24 hr 300 mg PO QAM cetirizine 10 mg Tablet 10 mg PO QAM linaclotide 145 mcg Capsule 145 mcg PO DAILY magnesium oxide 400 mg magnesium Tablet 800 mg PO DAILY omeprazole 20 mg capsule,delayed release(DR/EC) 1 cap PO DAILY acetaminophen 500 mg Tablet 500 mg PO BID diclofenac sodium 1 % Gel 1 applic TOPICAL BID fluticasone propionate [Flonase Allergy Relief] 50 mcg/actuation [place],Suspension 1 spray INTRANASAL BID gabapentin 600 mg tablet 2 tab PO BID quetiapine 100 mg Tablet 100 mg PO BID Mavyret 100-40 mg tablet 3 tab PO DIRECTED Rx Instructions: with dinner sennosides 8.6 mg Tablet 17.2 mg PO HS albuterol sulfate [Ventolin HFA] 90 mcg/actuation HFA aerosol inhaler 2 inh INHALATION TID Jardiance 25 mg tablet 1 tab PO DAILY Trulicity 1.5 mg/0.5 mL pen injector 1 device SUBCUT DIRECTED Rx Instructions: weekly Discharge Instructions Instructions: Urinary Tract Infection in Women (ED), Chronic Diarrhea (ED), Pneumonia (ED) Additional Instructions: Your lab work and imaging today reveals that you likely have a urinary tract infection and pneumonia. Take the Levaquin as directed until finished. Your CT scan also noted evidence of inflammation near your rectum which can be due to the significant amount of retained stool. Continue a regular bowel regimen to help with constipation and diarrhea. Drink plenty of fluids. Continue enemas as needed. Consider magnesium citrate. Follow-up with general surgery for further evaluation as needed. You can follow-up with podiatry for management of nail hygiene. You can also follow-up with neurology for further evaluation of your neurology. Follow-up with your primary care doctor in 1 week. Return to the emergency department with any worsening or new concerning symptoms. Referrals: Tiffany Greene DPM [[facility] STAFF PHYSICIAN] - Luis Hilliard MD [ [facility] STAFF PHYSICIAN] - Stacey Stanford MD [ [facility] STAFF PHYSICIAN] - Discharge Data Discharge Date/Time-TO BE ENTERED AT DEPARTURE: 06/01/22 15:56 Discharge Physician: Marisol Vegas Medical Decision Making 62-year-old female with history of CVA with right-sided hemiplegia, hypertension, diabetes, hypothyroidism, neurogenic bladder, morbid obesity and bedbound presents from the [facility] for multiple complaints including ongoing diarrhea for the past few months, chest congestion for the past month, right lower quadrant abdominal pain and decreased appetite since yesterday. Vitals within normal limits. Patient appears comfortable and nontoxic. Her abdomen is tender in the right lower quadrant but she has no rigidity or guarding. Her lungs are clear bilaterally. Differential diagnosis includes cholecystitis, appendicitis, bowel obstruction, UTI, pneumonia, dehydration, viral illness. Will obtain screening labs, urinalysis, CT chest abdomen pelvis and give fluids and IV Tylenol and reassess. Labs and imaging reviewed. Normal white blood cell count. Normal electrolytes. Troponin negative. Lipase within normal limits. Urinalysis possibly consistent with UTI, urine culture sent. CT notes the questionable right lower lobe infiltrate, enhancement of the renal system and bladder wall thickening. We will treat for possible UTI and pneumonia. Dose of oral Levaquin ordered. There is an interaction with Seroquel for risk of QT prolongation. EKG noted a normal QT interval. There was also a questionable stercoral proctitis likely secondary to large stool burden on CT. This was discussed with Dr. Hilliard who reviewed the imaging --recommends a consistent bowel regimen. Patient expressed concern about her toenails and lower extremity neuropathy which is mostly pain. She was given referral for podiatry and neurology. Advised to follow up with the primary care doctor for re-evaluation. Usual and customary return precautions given prior to discharge. Medical Records Medical records reviewed: Yes I reviewed the patient's medical records. Imaging Data Radiologic Study: Radiologist's impression: CT CHEST/ABD/PEL W CLINICAL HISTORY: ? chest congestion, sob, RLQ abd pain ? TECHNIQUE:? Imaging Protocol: Axial computed tomography images with coronal and sagittal reformatted images were created and reviewed CONTRAST MATERIAL:? Intravenous: Omnipaque 350 contrast volume:100 mL Oral: No COMPARISON:? CT CT CHEST/ABD/PEL W from 10/29/[address] RENAL COLIC WO from 11/05/2020 FINDINGS: CHEST: Tracheobronchial tree: Patent where visualized. Pulmonary parenchyma: There is a small peripheral dependent infiltrate in the right lower lobe.? The lungs are otherwise clear.? No architectural distortion. Visualized thyroid gland: Unremarkable. Mediastinum and Audra: No dominant adenopathy or fluid collection. The esophagus is unremarkable.? Stable subcarinal lymph node. Pleura: No effusion or pneumothorax. Heart: The heart is not dilated. Mild coronary artery calcification is present.? No pericardial effusion. Pulmonary arteries: The segmental and subsegmental pulmonary arteries are not adequately opacified.? No central pulmonary embolus is seen.? Aorta: Thoracic aorta non-dilated. Mild atherosclerosis. Lymph nodes: Within normal limits. Soft tissues: Unremarkable.? Bones:Within normal limits for the patient's age.? Anterior cervical fusion is seen in the lower C-spine. ABDOMEN: Liver: Normal density. No measurable mass. Portal, Superior Mesenteric, and Splenic Veins: Unremarkable.? Gallbladder and Biliary Tract: No radiodense calculus or dilation. Pancreas: Normal density, no abnormal calcifications or inflammatory process. Spleen: Normal. Adrenals: No masses seen. Kidneys: Normal size, contour and axis. No radiodense stones or obstructive uropathy. There are few tiny hypodensities in the kidneys bilaterally.? They are too small for further characterization but likely reflect small cysts.? There is mild enhancement of the wall of the right renal collecting system. Abdominal Aorta: Abdominal portion non-dilated. Atherosclerosis. Bowel: No obstruction or bowel wall thickening. No evidence of appendicitis.? The rectum is distended and there is mild thickening of the wall suspicious for stercoral proctitis. Peritoneal Cavity: No ascites, collection or mesenteric inflammatory response.? No free air.? Lymph Nodes: Within normal limits. Bones: Within normal limits for the patient's age.? Soft Tissues: Unremarkable. PELVIS: Bladder: There is diffuse thickening of the wall of the urinary bladder.? There are few foci of air in the dependent portion of the urinary bladder Reproductive Organs: The uterus is enlarged and lobulated suspicious for uterine fibroids.? Lymph Nodes: Within normal limits. Bones: Within normal limits. IMPRESSION: 1. Small dependent infiltrate in the right lower lobe.? This may represent atelectasis or pneumonia.? Please correlate clinically. 2. Mild enhancement of the wall of the right renal collecting system.? Inflammatory or infectious etiology should be considered. 3. Rectum distended with stool with mild thickening of the wall suspicious for stercoral proctitis. 4. Diffuse thickening of the wall of the urinary bladder.? Infectious or inflammatory cystitis should be considered. 5. A few foci of air within the dependent portion of the urinary bladder.? This may represent recent instrumentation.? Infection cannot be excluded. 6. Enlarged fibroid uterus. 7. Results of this exam have been verbally communicated with provider.? 8. Unremarkable CT scan of the chest. Lab Data Lab results reviewed: Yes I reviewed the patient's lab results. Labs: 06/01/22 13:20 Urine - Reflex from Ua Urine Culture - Pending Laboratory Tests Range/Units 06/01/22 06/01/22 06/01/22 11:40 11:40 13:20 WBC (4.4-10.8) 10^3/uL 6.87 RBC (3.93-5.22) 10^6/uL 4.83 Hgb (11.2-15.7) g/dL 11.6 Hct (36.0-46.0) % 39.2 MCV (80-95) fL 81 MCH (27.0-33.0) pg 24.0 L MCHC (32.0-36.0) % 29.6 L RDW (11.7-14.6) % 16.6 H Plt Count (130-400) 10^3/uL 303 MPV (8.0-11.0) fL 9.4 Immature Gran % 0.1 Neutrophils % 56.2 Lymphocytes % 34.6 Monocytes % 7.0 Eosinophils % 1.7 Basophils % 0.4 Nucleated RBC % (0.0-0.3) % 0.0 Absolute Neutrophils (1.2-6.7) 10^3/uL 3.85 Absolute Lymphocytes (1.2-3.4) 10^3/uL 2.38 Absolute Monocytes (0.1-0.8) 10^3/uL 0.48 Absolute Eosinophils (0.0-0.7) 10^3/uL 0.12 Absolute Basophils (0.0-0.2) 10^3/uL 0.03 Sodium (136-145) mmol/L 137 Potassium (3.5-5.1) mmol/L 3.9 Chloride (98-107) mmol/L 99 Carbon Dioxide (21.0-32.0) mmol/L 27.3 Anion Gap (3-11) mmol/L 10.7 BUN (7-18) mg/dL 9 Creatinine (0.55-1.02) mg/dL 0.8 Est GFR (CKD-EPI 2020) (mL/min/1.73m2) 83.26 Glucose (74-106) mg/dL 131 H Calcium (8.5-10.1) mg/dL 9.5 Magnesium (1.8-2.4) mg/dL 1.7 L Total Bilirubin (0.2-1.0) mg/dL 0.6 AST (15-37) U/L 39 H ALT (14-59) U/L 22 Alkaline Phosphatase (46-116) U/L 102 Troponin I (<or=60) ng/L < 50 Total Protein (6.4-8.2) g/dL 8.2 Albumin (3.4-5.0) g/dL 3.4 Lipase (73-393) U/L 134 Urine Color (Yellow) Yellow Urine Clarity (Clear) Cloudy Urine pH (5-8) 7.0 Ur Specific [place] (1.005-1.025) <= 1.005 Urine Protein (Negative) mg/dL Negative Urine Ketones (Negative) mg/dL Negative Urine Blood (Negative) Trace-intact H Urine Nitrite (Negative) Negative Urine Bilirubin (Negative) Negative Urine Urobilinogen (Up TO 0.2) EU/dL 0.2 Ur Leukocyte Esterase (Negative) Moderate H Urine RBC (0-2) HPF 0-2 Urine WBC (0-5) HPF >50 H Ur Epithelial Cells (Negative) HPF Rare Urine Crystals (Negative) HPF Negative Urine Bacteria (Negative) HPF Few Urine Casts (Negative) LPF Negative Urine Mucus (Negative) Negative Urine Other (Negative) Few Yeast Ur Culture Indicated? Yes Urine Glucose (Negative) mg/dL 100 ECG Data Attestation: I personally reviewed and interpreted this ECG (s) as follows: Interpretation: Rate of 90, sinus, normal axis, no stemi. HPI General Mode of arrival: ambulatory . Date/Time Provider Initiated Documentation: 06/01/22 11:18 . Limitations to Documentation: no limitations . Information obtained by: patient . HPI Narrative: Patient is a 62-year-old female with a history of previous stroke with right- sided hemiplegia, hypertension, hypothyroidism, diabetes, obesity, neurogenic bladder, anxiety, depression who resides at the [facility] post her CVA presents with multiple complaints. She states she has had chest congestion for the past month. She admits to worsening substernal chest pain since yesterday. She also admits to right lower quadrant abdominal pain and decreased appetite since yesterday. She states she has had ongoing loose brown diarrhea for the past several months. She denies any recent fever, cough. She states she is bedbound. Related Data Home Medications Medication Instructions Recorded Confirmed Multivitamin/Iron/Folic Acid 1 tab PO DAILY 08/08/17 06/01/22 [Centrum Adults Tablet] carbidopa 25 mg-levodopa 100 mg 1 tab PO QID 08/08/17 06/01/22 tablet acetaminophen 325 mg tablet 650 mg PO DAILY 03/26/20 01/26/22 (Tylenol) docusate sodium 100 mg capsule 100 mg PO .BID, PRN 03/26/20 01/26/22 (Colace) mirtazapine 15 mg tablet 15 mg PO QHS 03/26/20 06/01/22 lamotrigine 25 mg tablet (Lamictal) 50 mg PO DAILY #1 tab 04/08/20 06/01/22 polyethylene glycol 3350 17 17 g PO DAILY 04/19/20 06/01/22 gram/dose oral powder (Miralax) sennosides 8.6 mg tablet (Senokot) 8.6 mg PO BID 04/19/20 01/26/22 levothyroxine 125 mcg capsule 100 mcg PO HS 06/23/20 06/01/22 magnesium hydroxide 400 mg/5 mL 5 ml PO .q 3 days PRN 06/23/20 01/26/22 oral suspension (Milk of Magnesia) trazodone 50 mg tablet 25 mg PO BID 07/07/20 06/01/22 bisacodyl 10 mg rectal suppository 10 mg HI ONCE PRN 08/17/20 01/26/22 magnesium chloride 71.5 mg 64 mg PO BID 12/20/20 01/26/22 (magnesium chloride) tablet,delayed release (Nu-Mag) metformin 500 mg tablet 1,000 mg PO BID 12/20/20 06/01/22 lactase 3,000 unit tablet (Lactaid) 9,000 unit PO TID 06/22/21 06/01/22 quetiapine 100 mg tablet 50 mg PO DAILY 06/22/21 06/01/22 acetaminophen 500 mg tablet 500 mg PO BID 06/01/22 06/01/22 albuterol sulfate 90 mcg/actuation 2 inh inhalation TID 06/01/22 06/01/22 aerosol inhaler (Ventolin HFA) aspirin 81 mg tablet,delayed 81 mg PO DAILY 06/01/22 06/01/22 release bupropion HCl 150 mg 24 hr tablet, 300 mg PO QAM 06/01/22 06/01/22 extended release cetirizine 10 mg tablet 10 mg PO QAM 06/01/22 06/01/22 diclofenac sodium 1 % topical gel 1 applic topical BID 06/01/22 06/01/22 dulaglutide 1.5 mg/0.5 mL 1 device subcut DIRECTED 06/01/22 06/01/22 subcutaneous pen injector (Trulicity) empagliflozin 25 mg tablet 1 tab PO DAILY 06/01/22 06/01/22 (Jardiance) fluticasone propionate 50 1 spray intranasal BID 06/01/22 06/01/22 mcg/actuation nasal spray,suspension (Flonase Allergy Relief) gabapentin 600 mg tablet 2 tab PO BID 06/01/22 06/01/22 glecaprevir 100 mg-pibrentasvir 40 3 tab PO DIRECTED 06/01/22 06/01/22 mg tablet (Mavyret) levofloxacin 750 mg tablet 750 mg PO DAILY 5 days #5 tabs 06/01/22 linaclotide 145 mcg capsule 145 mcg PO DAILY 06/01/22 06/01/22 magnesium oxide 800 mg PO DAILY 06/01/22 06/01/22 omeprazole 20 mg capsule,delayed 1 cap PO DAILY 06/01/22 06/01/22 release quetiapine 100 mg tablet 100 mg PO BID 06/01/22 06/01/22 sennosides 8.6 mg tablet 17.2 mg PO HS 06/01/22 06/01/22 Previous Rx's Medication Instructions Recorded lamotrigine 25 mg tablet (Lamictal) 50 mg PO DAILY #1 tab 04/08/20 levofloxacin 750 mg tablet 750 mg PO DAILY 5 days #5 tabs 06/01/22 Allergies Allergy/AdvReac Type Severity Reaction Status Date / Time naproxen [From Aleve] Allergy Unknown Itching Unverified 06/01/22 14:41 Penicillins Allergy Unknown Itching Unverified 06/01/22 14:41 propoxyphene Allergy Unknown Itching Unverified 06/01/22 14:41 Sulfa (Sulfonamide Allergy Unknown Itching Unverified 06/01/22 14:41 Antibiotics) methadone Allergy Verified 06/22/21 10:28 General Stated Complaint: Abd Prob RUBENS: 3 Review of Systems All systems reviewed & are unremarkable except as noted in HPI and below Constitutional Constitutional: Denies chills, Denies excessive sweating, Denies fatigue, Denies fever(s), Reports poor appetite, Denies weakness and Denies weight loss Eyes Eyes: Reports system reviewed and no additional complaints, except as documented and Denies blurry vision ENT Ears, Nose, Mouth, and Throat: Denies vertigo, Denies dizziness, Denies otalgia, Denies nasal congestion, Denies sore throat and Denies throat swelling Cardiovascular Cardiovascular: Reports chest pain, Denies syncope, Denies rapid heart rate and Reports dyspnea Respiratory Respiratory: Denies chest congestion, Denies cough, Denies pain on inspiration and Reports dyspnea Gastrointestinal Gastrointestinal: Reports abdominal pain, Reports diarrhea and Denies vomiting Genitourinary Genitourinary: Denies hematuria, Denies dysuria and Denies flank pain Musculoskeletal Musculoskeletal: Denies back pain and Denies joint swelling Integumentary/Breasts Skin/Breast: Denies lesions and Denies rash Neurologic Neurologic: Denies behavioral changes, Denies confusion, Denies vertigo, Denies dizziness, Denies syncope, Denies localized weakness and Denies weakness Psychiatric Psychiatric: Denies behavioral changes, Denies confusion and Denies depression Endocrine Endocrine: Denies excessive sweating and Denies fatigue Hematologic/Lymphatic Hematologic/Lymphatic: Denies easy bruising and Denies lymphadenopathy Allergic/Immunologic Allergic/Immunologic: Denies throat swelling PFSH All Active Problems (Updated 06/01/22 @ 15:19 by Marisol Vegas DO) UTI (urinary tract infection) (Acute) Pneumonia (Acute) Chronic diarrhea (Acute) Arthritis of left shoulder region (Acute) Left rotator cuff tear (Acute) Fecal impaction in rectum (Acute) Cough (Acute) Ileus (Acute) Tardive dyskinesia (Acute) Parkinsonism (Acute) History of stroke (Acute) Right kidney stone (Acute) [employer] vasculitis (Chronic) UTI (urinary tract infection) (Acute) Chronic chest pain (Chronic) Discharge planning issues (Acute) DVT prophylaxis (Acute) Constipation (Acute) Bipolar 1 disorder (Chronic) Bipolar affective disorder, current episode depressed (Acute) rule out bipolar disorder reported by patient. Antiepileptics maybe preventing manic episode. Major depressive disorder, recurrent, severe with psychotic features (Acute) Current presentation is depression. She may have bipolar affective disorder. Ambulatory dysfunction (Chronic) Staghorn calculus (Acute) HCAP (healthcare-associated pneumonia) (Acute) Hemiparesis affecting right side as late effect of cerebrovascular accident (Acute) Weakness on left side of face (Acute) Dysphagia as late effect of cerebrovascular accident (CVA) (Chronic) Dysarthria as late effect of cerebrovascular accident (CVA) (Acute) Aphasia as late effect of cerebrovascular accident (Acute) Neck pain (Acute) Autoimmune disorder (Acute) Medical History (Updated 06/01/22 @ 15:19 by Marisol Vegas DO) [place] (acute kidney injury) Anxiety Bipolar 1 disorder Cholelithiasis with acute cholecystitis s/p cholecystostomy and stone extraction in 2014 ([facility]), tube now pulled. 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 insufficiency Complicated UTI (urinary tract infection) Diverticulosis Hemiparesis affecting right side as late effect of cerebrovascular accident (CVA) Hepatitis C History of multiple cerebrovascular accidents (CVAs) Hypertension Hypothyroidism IDDM (insulin dependent diabetes mellitus) Lumbar disc disease Nephrolithiasis Neurogenic bladder Obesity (BMI 30.0-34.9) Palliative care encounter Septic shock Static encephalopathy Steroid dependent Uterine mass likely a fibroid UTI (urinary tract infection) Surgical History Abnormal cholangiogram H/O cervical spine surgery H/O foot surgery H/O wrist surgery History of extraction of renal calculus 12/13/2018 - [facility] History of hip surgery right History of lumbosacral spine surgery S/P cystoscopy with ureteral stent placement [facility] 11/2018 Status post creation of urethral sling by suprapubic approach Family History Mother Stroke Social History Smoking/Tobacco Use Status: Former Tobacco Use Smoking risk assessment performed?: Yes Alcohol Intake: former Substance use type: former substance user and IV drugs Housing: [facility] Number of Children: 5 Education Level: elementary school Details: 6th grade, special ed, left school age 16. Current gender identity: female What is your relationship status?: Panel score (0-1 are the most socially isolated patients): 0 What type of physical activity do you participate in: none Do you feel safe at home: Yes Do you feel safe in your relationship?: Yes Exam Const General: cooperative Orientation: alert and awake [facility] Head: normal to inspection Ears: hearing grossly normal bilaterally and external ears normal General nose exam: external nose normal Face and sinus: normal facial exam Mouth: oral mucosae normal Eyes General: appearance normal, both eyes and all related structures Eyelids: eyelids normal EOM: EOM intact bilaterally Neck Neck: normal visual inspection Lymphatic: no lymphadenopathy noted Chest Chest: normal inspection of the chest Resp Effort & Inspection: normal respiratory effort and able to speak in complete sentences Auscultation: clear to auscultation bilaterally Cardio Rate: regular rate Rhythm: regular rhythm GI Inspection: normal to inspection and obesity Palpation: soft, not firm, no guarding, no hepatosplenomegaly, no masses and nontender Auscultation: hypoactive bowel sounds Rectal Exam - female: visual inspection normal Skin General skin exam: no rashes or lesions noted Neuro General: patient alert and patient awake Cognition: normal cognition Speech: abnormal speech slurred (baseline s/p cva) Other: R arm and leg hemiparesis Extrem General: no edema Psych Appearance: grossly normal Mental Status: mental status grossly normal Affect: normal affect Thought Process: normal Course Vital Signs Vital signs: Vital Signs Temperature 96.6 F L 06/01/22 11:15 Pulse 90 06/01/22 11:15 Respiratory Rate 16 06/01/22 11:15 Blood Pressure 115/79 06/01/22 11:15 Pulse Oximetry 94 06/01/22 11:15 Temperature 96.6 F L 06/01/22 11:15 Temperature Source Skin 06/01/22 11:15 Pulse 90 06/01/22 11:15 Respiratory Rate 16 06/01/22 11:15 Blood Pressure 115/79 06/01/22 11:15 Blood Pressure Position Supine 06/01/22 11:15 Pulse Oximetry 94 06/01/22 11:15 Oxygen Delivery Method Room Air 06/01/22 11:15 Oxygen Flow Rate 0 06/01/22 11:15 Pain Level 8 06/01/22 11:15 Lab/Test Results Lab/Test Results: Laboratory Tests Range/Units 06/01/22 11:40 WBC (4.4-10.8) 10^3/uL 6.87 RBC (3.93-5.22) 10^6/uL 4.83 Hgb (11.2-15.7) g/dL 11.6 Hct (36.0-46.0) % 39.2 MCV (80-95) fL 81 MCH (27.0-33.0) pg 24.0 L MCHC (32.0-36.0) % 29.6 L RDW (11.7-14.6) % 16.6 H Plt Count (130-400) 10^3/uL 303 MPV (8.0-11.0) fL 9.4 Immature Gran % 0.1 Neutrophils % 56.2 Lymphocytes % 34.6 Monocytes % 7.0 Eosinophils % 1.7 Basophils % 0.4 Nucleated RBC % (0.0-0.3) % 0.0 Absolute Neutrophils (1.2-6.7) 10^3/uL 3.85 Absolute Lymphocytes (1.2-3.4) 10^3/uL 2.38 Absolute Monocytes (0.1-0.8) 10^3/uL 0.48 Absolute Eosinophils (0.0-0.7) 10^3/uL 0.12 Absolute Basophils (0.0-0.2) 10^3/uL 0.03
[2022-06-01 12:11] LABS: ALT 22 U/L (14-59); AST 39 U/L (15-37); Albumin 3.4 g/dL (3.4-5.0); Alkaline Phosphatase 102 U/L (46-116); Anion Gap 10.7 mmol/L (3-11); BUN 9 mg/dL (7-18); Bilirubin, Total 0.6 mg/dL (0.2-1.0); CO2 27.3 mmol/L (21.0-32.0); CREATININE 0.8 mg/dL (0.55-1.02); Calcium 9.5 mg/dL (8.5-10.1); Chloride 99 mmol/L (98-107); Estimated GFR 83.26 (mL/min/1.73m2); Glucose 131 mg/dL (74-106); Lipase 134 U/L (73-393); Magnesium 1.7 mg/dL (1.8-2.4); Potassium 3.9 mmol/L (3.5-5.1); Sodium 137 mmol/L (136-145); Total Protein 8.2 g/dL (6.4-8.2); Troponin I < 50 ng/L (<or=60)
[2022-06-01] MEDS: Normal Saline 250 ML 500 ML IV (12:24)
[2022-06-01] MEDS: Omnipaque 350 MG/ML 100 ML BTL IJ (12:44)
[2022-06-01] MEDS: Normal Saline Flush 10 ML SYR IVP (12:45)
--- NOTE | 2022-06-01 12:46 | DI.CT_ITS ---
Exam(s) CT CHEST/ABD/PEL W EXAM: CT CHEST/ABD/PEL W CLINICAL HISTORY: chest congestion, sob, RLQ abd pain TECHNIQUE: Imaging Protocol: Axial computed tomography images with coronal and sagittal reformatted images were created and reviewed CONTRAST MATERIAL: Intravenous: Omnipaque 350 contrast volume:100 mL Oral: No COMPARISON: CT CT CHEST/ABD/PEL W from 10/29/[address] RENAL COLIC WO from 11/05/2020 FINDINGS: CHEST: Tracheobronchial tree: Patent where visualized. Pulmonary parenchyma: There is a small peripheral dependent infiltrate in the right lower lobe. The lungs are otherwise clear. No architectural distortion. Visualized thyroid gland: Unremarkable. Mediastinum and Audra: No dominant adenopathy or fluid collection. The esophagus is unremarkable. Sta ble subcarinal lymph node. Pleura: No effusion or pneumothorax. Heart: The heart is not dilated. Mild coronary artery calcification is present. No pericardial effus ion. Pulmonary arteries: The segmental and subsegmental pulmonary arteries are not adequately opacified. No central pulmonary embolus is seen. Aorta: Thoracic aorta non-dilated. Mild atherosclerosis. Lymph nodes: Within normal limits. Soft tissues: Unremarkable. Bones:Within normal limits for the patient's age. Anterior cervical fusion is seen in the lower C-sp ine. ABDOMEN: Liver: Normal density. No measurable mass. Portal, Superior Mesenteric, and Splenic Veins: Unremarkable. Gallbladder and Biliary Tract: No radiodense calculus or dilation. Pancreas: Normal density, no abnormal calcifications or inflammatory process. Spleen: Normal. Adrenals: No masses seen. Kidneys: Normal size, contour and axis. No radiodense stones or obstructive uropathy. There are few t iny hypodensities in the kidneys bilaterally. They are too small for further characterization but li anna reflect small cysts. There is mild enhancement of the wall of the right renal collecting system . Abdominal Aorta: Abdominal portion non-dilated. Atherosclerosis. Bowel: No obstruction or bowel wall thickening. No evidence of appendicitis. The rectum is distended and there is mild thickening of the wall suspicious for stercoral proctitis. Peritoneal Cavity: No ascites, collection or mesenteric inflammatory response. No free air. Lymph Nodes: Within normal limits. Bones: Within normal limits for the patient's age. Soft Tissues: Unremarkable. PELVIS: Bladder: There is diffuse thickening of the wall of the urinary bladder. There are few foci of air i n the dependent portion of the urinary bladder Reproductive Organs: The uterus is enlarged and lobulated suspicious for uterine fibroids. Lymph Nodes: Within normal limits. Bones: Within normal limits. IMPRESSION: 1. Small dependent infiltrate in the right lower lobe. This may represent atelectasis or pneumonia. Please correlate clinically. 2. Mild enhancement of the wall of the right renal collecting system. Inflammatory or infectious amberly ology should be considered. 3. Rectum distended with stool with mild thickening of the wall suspicious for stercoral proctitis. 4. Diffuse thickening of the wall of the urinary bladder. Infectious or inflammatory cystitis should be considered. 5. A few foci of air within the dependent portion of the urinary bladder. This may represent recent instrumentation. Infection cannot be excluded. 6. Enlarged fibroid uterus. 7. Results of this exam have been verbally communicated with provider. 8. Unremarkable CT scan of the chest. RADIATION DOSE DELIVERED: 1,535.61mGy.cm Total DLP DATA REPOSITORY: All CT scans at this facility are submitted to the National Radiology Data Registry (NRDR) Dose Index Registry (DIR) with the [employer] (A[employer]). RADIATION OPTIMIZATION: All CT scans at this facility use at least one of these dose optimization te chniques: automated exposure control; mA and/or kV adjustment per patient size (includes targeted exa ms where dose is matched to clinical indication); or iterative reconstruction.
[2022-06-01] MEDS: ACETAMINOPHEN 1,000 MG/100 ML BTL 400 MG IVPB (12:50)
[2022-06-01 13:37] LABS: Bilirubin Negative (Negative); Blood Trace-intact (Negative); Clarity Cloudy (Clear); Glucose 100 mg/dL (Negative); Ketones Negative (Negative); Leukocyte Esterase Moderate (Negative); Nitrite Negative (Negative); Specific Gravity <= 1.005 (1.005-1.025); Urobilinogen 0.2 EU/dL (Up TO 0.2)
[2022-06-01 13:50] LABS: Bacteria Few HPF (Negative); C & S Indicated? Yes; Casts Negative LPF (Negative); Crystals Negative HPF (Negative); Epithelial Cells Rare HPF (Negative); Mucus Negative (Negative); Other Cells Few Yeast (Negative); RBC 0-2 HPF (0-2); WBC >50 HPF (0-5)
[2022-06-01 14:17] VITALS: BP 104/53; PULSE 88; TEMP 36.6; O2SAT 94
[2022-06-01] MEDS: levoFLOXacin 500 MG, levoFLOXacin 250 MG 750 MG PO (14:46)
[2022-06-01 15:25] VITALS: BP 104/53; PULSE 88; TEMP 36.6; O2SAT 94
== END 2022-06-01 15:56 | disposition home or self-care (01) ==
PROVIDERS: Emergency Provider Physician Assistant; PCP Family Medicine
DX: N39.0 Urinary tract infection, site not specified (principal); J18.9 Pneumonia, unspecified organism; K52.9 Noninfective gastroenteritis and colitis, unspecified; I10 Essential (primary) hypertension; E11.9 Type 2 diabetes mellitus without complications; Z86.73 Personal history of transient ischemic attack (TIA), and cerebral infarction without residual deficits; Z79.84 Long term (current) use of oral hypoglycemic drugs; Z79.82 Long term (current) use of aspirin; Z79.4 Long term (current) use of insulin; Z87.891 Personal history of nicotine dependence
CPT/HCPCS: 36415; 74177; 80053; 83690; 93005; 96361; 96374; 99285; 71260; 81003; 81015; 83735; 84484; 85025; 87086; 93010; J0131; J3490

== ENCOUNTER 2022-06-13 14:52 | Emergency (ER) | payer MEDICAID, SELFPAY ==
[2022-06-13] VITALS (18 sets, daily range): BP systolic 77–102; BP diastolic 45–56; PULSE 83–108; RESP 9–22; TEMP 36.6; O2SAT 88–96
--- NOTE | 2022-06-13 14:45 | DI.US_ITS ---
Exam(s) US ABDOMEN LIMITED EXAM: US ABDOMEN LIMITED CLINICAL HISTORY: RUQ abd pain, r/o cholecystitis TECHNIQUE: Ultrasound abdomen performed using standard protocol. COMPARISON: US US ABDOMEN LIMITED from 03/17/[address] CHEST/ABD/PEL W from 06/01/2022 FINDINGS: There is no ascites evident. LIVER: Liver is hyperechoic indicating steatosis, unchanged. There are no discrete focal hepatic les ions identified. GALLBLADDER/BILIARY: There are multiple small shadowing gallstones noted. Gallbladder wall is minima lly thickened. No pericholecystic fluid evident. Gallbladder is not overly distended. The common hepatic duct ismildly dilated, measuring 7mm at the level of eduard hepatis. PANCREAS: There is no evidence of pancreatic mass nor dilatation of the pancreatic duct. RIGHT KIDNEY:No evidence of solid mass, calculus, nor hydronephrosis. No cortical cysts evident. IMPRESSION: 1. Cholelithiasis. There are small shadowing gallstones. Average size is [address] wall thickness is minimally prominent. Correlation with the clinical signs of acute cholecystitis recommended. 2. Mild dilatation of the common hepatic duct measuring in the 7 millimeters. If clinically indicat ed follow-up CT scan can be performed to determine if there is a small calculus in the lower CBD. 3. Pancreas appears unremarkable. There is no ascites. DATA REPOSITORY:
[2022-06-13 15:35] LABS: Absolute Basophil Count 0.03 10^3/uL (0.0-0.2); Absolute Eosinophil Count 0.08 10^3/uL (0.0-0.7); Absolute Lymphocyte Count 2.21 10^3/uL (1.2-3.4); Absolute Neutrophil Count 12.94 10^3/uL (1.2-6.7); Basophils % 0.2; Eosinophils % 0.5; HCT 35.5 % (36.0-46.0); HGB 10.9 g/dL (11.2-15.7); Immature Grans % 0.6; Lymphocytes % 13.6; MCH 23.9 pg (27.0-33.0); MCHC 30.7 % (32.0-36.0); MCV 78 fL (80-95); MPV 9.1 fL (8.0-11.0); Monocytes % 5.4; Neutrophils % 79.7; Platelet Count 357 10^3/uL (130-400); RBC 4.56 10^6/uL (3.93-5.22); RDW 16.8 % (11.7-14.6); RDW-SD 47.8 fL; WBC 16.23 10^3/uL (4.4-10.8)
[2022-06-13 15:37] LABS: Absolute Monocyte Count 0.88 10^3/uL (0.1-0.8)
[2022-06-13 15:58] LABS: ALT 6 U/L (14-59); AST 15 U/L (15-37); Albumin 2.8 g/dL (3.4-5.0); Alkaline Phosphatase 91 U/L (46-116); Anion Gap 9.9 mmol/L (3-11); BUN 13 mg/dL (7-18); Bilirubin, Total 0.6 mg/dL (0.2-1.0); CO2 26.1 mmol/L (21.0-32.0); CREATININE 0.8 mg/dL (0.55-1.02); Calcium 9.4 mg/dL (8.5-10.1); Chloride 95 mmol/L (98-107); Estimated GFR 83.26 (mL/min/1.73m2); Glucose 174 mg/dL (74-106); Lipase 61 U/L (73-393); Magnesium 1.7 mg/dL (1.8-2.4); Potassium 3.5 mmol/L (3.5-5.1); Sodium 131 mmol/L (136-145); Total Protein 7.7 g/dL (6.4-8.2); Troponin I < 50 ng/L (<or=60)
--- NOTE | 2022-06-13 16:00 | DI.CT_ITS ---
Exam(s) CT CHEST/ABD/PEL W EXAM: CT CHEST/ABD/PEL W CLINICAL HISTORY: RUQ pain, Mild elevation CBD, r/o stone. TECHNIQUE: Imaging Protocol: Axial computed tomography images with coronal and sagittal reformatted images were created and reviewed CONTRAST MATERIAL: Intravenous: Omnipaque 350 Contrast volume:100 ml Oral: None COMPARISON: CT CT RENAL COLIC WO from 11/05/[address] CHEST/ABD/PEL W from 06/01/2022 FINDINGS: CHEST: LUNGS: There is mild persistent subpleural infiltrate in the right lower lobe, unchanged. No associa leni pleural effusion nor ominous pulmonary nodules. No focal findings in the opposite-left lung nor evidence of left pleural effusion. There are no significant focal findings in the trachea and mainst em bronchi. MEDIASTINUM: There is no hilar nor mediastinal adenopathy. Visualized thyroid unremarkable. CARDIAC: Heart size is normal. There is no pericardial effusion.Caliber thoracic aorta is within nor mal limits. No dissection. Incidentally noted is independent origin left vertebral artery off the a ortic arch. Descending thoracic aorta exhibits normal diameter. OSSEOUS: Fusion plate in the lower cervical spine noted. No fractures. No osseous lesions. ABDOMEN: There is no ascites. LIVER: There are no focal hepatic lesions nor dilatation of intrahepatic ducts. GALLBLADDER/BILIARY: No obvious gallbladder pathology. CBD is not dilated. PANCREAS: Pancreatic body and tail appear unremarkable. The head appears somewhat hypodense. Possib ly related to inflammatory change although cannot exclude a mass at this level. The uncinate process retains normal triangular configuration. The pancreatic duct is not dilated. No pancreatic parench ymal calcifications. CBD is not dilated. SPLEEN: Spleen is not enlarged. There are no intrasplenic lesions. Splenic and portal veins are barnhart nt. ADRENALS: The normal-appearing limbs of both adrenal glands appears somewhat splayed apart by fat tis mariaelena. This may indicate presence of benign bilateral myelolipomas, unchanged. KIDNEYS: Left kidney unremarkable. Enhancement of the uroepithelial M of the right collecting system is again noted.. No obstructing calculus seen. Small sub cm cyst in left kidney and 4 millimeter c yst in the right kidney. No solid renal masses nor intrarenal calculi evident. ABDOMINAL AORTA: Abdominal aorta is not enlarged. LYMPH NODES: There is no retroperitoneal nor paraaortic adenopathy. ABDOMINAL WALL: No evidence of significant anterior abdominal wall nor inguinal hernia. GI: There is slightly dilated fluid-filled small bowel loops measuring up to 3.2 cm diameter. Howeve r, there does not appear to be transition point to suggest the presence of a small bowel obstruction. PELVIS: LYMPH NODES: There is no intrapelvic nor inguinal adenopathy. GI: No evidence of appendicitis.No evidence of sigmoid diverticulitis. URINARY BLADDER: No calculi nor masses evident REPRODUCTIVE: Prominent uterine fibroid measuring approximately 7 x 6 cm. No abnormal adnexal masses . No free fluid. OSSEOUS: No significant osseous lesions. IMPRESSION: 1. Again noted is enhancement of the uroepithelial lining of the right kidney and ureter., this simil ar to the most recent CT scan. However, I note that CT scan of 11/05/2020 revealed numerous calculi in the left kidney and renal pelvis. Therefore this enhancement may be related to prior instrumentat ion and stent placement. Nevertheless, it brings up suspicion also for infectious etiology. 2. Similar findings not seen in the left kidney. 3. I ileus pattern but no bowel obstruction. 4. The head of the pancreas appears mildly hypodense when compared to the pancreatic body and tail, p ossibly indicating inflammatory process. However, also cannot exclude subtle neoplasm at this level in the pancreatic head. Recommend follow-up pancreatic MRI. Enlarged fibroid uterus again noted. Mild infiltrate in the right lower lobe (lung). First read by [facility] Final report called by myself to ER physician 06/14/2022. RADIATION DOSE DELIVERED: 1,471.13mGy.cm Total DLP DATA REPOSITORY: All CT scans at this facility are submitted to the National Radiology Data Registry (NRDR) Dose Index Registry (DIR) with the [employer] ([employer]). RADIATION OPTIMIZATION: All CT scans at this facility use at least one of these dose optimization te chniques: automated exposure control; mA and/or kV adjustment per patient size (includes targeted exa ms where dose is matched to clinical indication); or iterative reconstruction.
--- NOTE | 2022-06-13 16:18 | W.ED.GENAD ---
Discharge Plan Disposition Patient Disposition: HOME Condition: Stable Discharge Details Clinical Impression: UTI (urinary tract infection), Biliary colic, Chronic diarrhea Primary Care Provider: Agueda Bingham ED Provider: Marisol Vegas Home Meds and New Rx's Prescriptions: New ciprofloxacin HCl 500 mg tablet 500 mg PO BID 7 Days Qty: 14 0RF oxycodone 5 mg tablet 5 mg PO Q6H PRN (Reason: pain) Qty: 10 0RF Continued trazodone 50 mg tablet 25 mg PO BID metformin 500 mg tablet 1,000 mg PO BID bisacodyl 10 mg suppository 10 mg SD ONCE PRN levothyroxine 125 mcg capsule 100 mcg PO HS lactase [Lactaid] 3,000 unit tablet 9,000 unit PO TID Rx Instructions: administer with meals and/or snacks simethicone 180 mg capsule 1 cap PO TID carbidopa-levodopa 1 EACH tablet 1 tab PO QID Multivitamin/Iron/Folic Acid [Centrum Adults Tablet] 1 EACH tablet 1 tab PO DAILY docusate sodium [Colace] 100 mg Capsule 100 mg PO .BID, PRN mirtazapine 15 mg Tablet 15 mg PO QHS lamotrigine [Lamictal] 25 mg Tablet 50 mg PO DAILY Qty: 1 0RF quetiapine 100 mg tablet 50 mg PO DAILY Label Comments: 100 mg BID, 50 mg daily at 2pm polyethylene glycol 3350 [Miralax] 17 gram/dose Powder 17 g PO DAILY aspirin 81 mg Tablet,Delayed Release (Dr/Ec) 81 mg PO DAILY bupropion HCl 150 mg tablet extended release 24 hr 300 mg PO QAM cetirizine 10 mg Tablet 10 mg PO QAM linaclotide 145 mcg Capsule 145 mcg PO DAILY magnesium oxide 400 mg magnesium Tablet 800 mg PO DAILY acetaminophen 500 mg Tablet 500 mg PO BID diclofenac sodium 1 % Gel 1 applic TOPICAL BID fluticasone propionate [Flonase Allergy Relief] 50 mcg/actuation [place],Suspension 1 spray INTRANASAL BID gabapentin 600 mg tablet 2 tab PO BID quetiapine 100 mg Tablet 100 mg PO BID Mavyret 100-40 mg tablet 3 tab PO DIRECTED Rx Instructions: with dinner sennosides 8.6 mg Tablet 17.2 mg PO HS albuterol sulfate [Ventolin HFA] 90 mcg/actuation HFA aerosol inhaler 2 inh INHALATION TID Jardiance 25 mg tablet 1 tab PO DAILY Trulicity 1.5 mg/0.5 mL pen injector 1 device SUBCUT DIRECTED Rx Instructions: weekly Discharge Instructions Instructions: Urinary Tract Infection in Women (ED), Chronic Diarrhea (ED), Abdominal Pain (ED) Additional Instructions: Your lab tests reveal that you have a possible urinary tract infection. Your ultrasound today noted that you have gallstones but no evidence of an acute gallbladder infection. You are being sent home with an antibiotic prescription to take as directed until finished for your urinary tract infection. You also being sent home with the pain medication oxycodone to take as needed and directed for your abdominal pain. You have been placed on care management list to arrange for a follow-up appointment with general surgery for reevaluation and for consideration for scheduling for elective cholecystectomy which is removal of her gallbladder. Your stool culture has been sent for analysis and you will be notified of the results when available. Your blood pressure was low today. It has been noted to be low in the past but may have been lower today due to pain medication. Follow-up with your primary care doctor in 1 week. Return to the emergency department with any worsening or new concerning symptoms such as fever, worsening pain, persistent vomiting or any other concerns. Referrals: Anu De Guzman DO [OSTEOPATHIC DOCTOR] - Discharge Data Discharge Date/Time-TO BE ENTERED AT DEPARTURE: 06/13/22 21:14 Discharge Physician: Marisol Vegas Medical Decision Making 62-year-old F w/ a h/o CVA with right-sided hemiplegia, hypertension, hepatitis, diabetes, hypothyroidism, neurogenic bladder, morbid obesity and bedbound presents from the [facility] for ongoing diarrhea for months with a complaint of nausea and right side abdominal pain for the past few days. Patient was seen here earlier this month and diagnosed with UTI and pneumonia. She currently denies any chest pain or shortness of breath. She is afebrile with normal oxygen saturation. Her abdomen is diffusely mildly distended and tender mostly on the right side of her abdomen. She is bedbound secondary to CVAs with right-sided hemiplegia. Differential diagnosis included cholelithiasis, cholecystitis, hepatitis flare, UTI, colitis, C. difficile, diverticulitis, appendicitis. Abdominal ultrasound obtained on arrival due to complaint and high level of acuity and volume in the ED which noted cholelithiasis with small shadowing gallstones with minimally prominent gallbladder wall thickness with mild dilatation of the common hepatic duct with recommendation for CT to rule out calculus in the common bile duct. We will place an IV, bolus IV fluids, IV Tylenol, IV Zofran, and obtain a CT chest abdomen pelvis. Labs and imaging reviewed. White blood cell count 16. Hemoglobin 10.9 which is close to her baseline. Normal LFTs, bilirubin and lipase. Urinalysis notes greater than 50 WBCs, large leukocyte esterase, negative epi's and many bacteria. Review of records notes that previous urine culture from visit earlier this month appeared contaminated. These results today appear more consistent with UTI and urine culture sent. CT abdomen and pelvis notes: IMPRESSION: 1. No biliary ductal dilatation. No biliary stones identified. 2. No evidence for acute cholecystitis. 3. Prominent air and fluid-filled loops of small and large bowel without transition point, increased from prior study, suggesting ileus. 4. Findings of mild proctitis, without clear change from prior study. 5. Small amount of nondependent air within the bladder, as on prior study. Findings can be seen in the setting of cystitis or recent instrumentation. Recommend clinical correlation. 6. Urothelial thickening the right renal collecting system, pelvis and ureter, as on prior study, which can be seen in the setting of urinary tract infection. Recommend clinical correlation. CT findings reviewed with Dr. De Guzman -- no indication for emergent cholecystectomy at this time. Dr. De Guzman will discuss with anesthesia team whether this patient will be appropriate for surgery here as she may need an elective cholecystectomy planned at some point. Patient states she would like her gallbladder out when appropriate. Her leukocytosis may be in the setting of her UTI as there does not appear to be an acute surgical indication at this time. Patient's blood pressure has been hypotensive but appears to be fluid responsive. Review of records notes that she has been hypotensive with systolic in the 90s in the past and likely a dose of Dilaudid here for her pain has contributed to hypotension. Blood pressure prior to discharge 102/56. Patient requested stronger pain medication than Tylenol. We will send with oxycodone for pain relief in the setting of possible biliary colic. She was given a dose of Cipro here. Normal QT interval on EKG earlier this month. She was given prescriptions for Cipro and oxycodone. Patient placed on general surgery follow-up last for reevaluation. Usual and customary return precautions given prior to discharge. Medical Records Medical records reviewed: Yes I reviewed the patient's medical records. Imaging Data Radiologic Study: Radiologist's impression: US ABDOMEN LIMITED CLINICAL HISTORY:? RUQ abd pain, r/o cholecystitis TECHNIQUE:? Ultrasound abdomen performed using standard protocol. COMPARISON:? US US ABDOMEN LIMITED from 03/17/[address] CHEST/ABD/PEL W from 06/01/2022 FINDINGS: There is no ascites evident. LIVER: Liver is hyperechoic indicating steatosis, unchanged.? There are no discrete focal hepatic lesions identified. GALLBLADDER/BILIARY: There are multiple small shadowing gallstones noted.? Gallbladder wall is minimally thickened.? No pericholecystic fluid evident.? Gallbladder is not overly distended. The common hepatic duct ismildly dilated, measuring 7mm at the level of eduard hepatis. PANCREAS: There is no evidence of pancreatic mass nor dilatation of the pancreatic duct. RIGHT KIDNEY:No evidence of solid mass, calculus, nor hydronephrosis. No cortical cysts evident. IMPRESSION: 1.? Cholelithiasis.? There are small shadowing gallstones.? Average size is 5 millimeters.? Gallbladder wall thickness is minimally prominent.? Correlation with the clinical signs of acute cholecystitis recommended. 2.? Mild dilatation of the common hepatic duct measuring in the 7 millimeters.? If clinically indicated follow-up CT scan can be performed to determine if there is a small calculus in the lower CBD. 3.? Pancreas appears unremarkable. There is no ascites. CT Chest With Contrast; Diagnostic Exam date and time: 06/13/2022 4:36 PM Age: 62 years old Clinical indication: Other: Ruq pain, mild elevation cbd, R/O stone TECHNIQUE: Imaging protocol: Diagnostic computed tomography of the chest with contrast. Radiation optimization: All CT scans at this facility use at least one of these dose optimization techniques: automated exposure control; mA and/or kV adjustment per patient size (includes targeted exams where dose is matched to clinical indication); or iterative reconstruction. Contrast material: OMNIPAQUE 350; Contrast volume: 100 ml; Contrast route: INTRAVENOUS (IV);? COMPARISON: CT CHEST/ABD/PEL W 06/01/2022 12:37 PM FINDINGS: Lungs: Again noted are regions of atelectasis within the dependent aspect of the right lower lobe, without clear change. Pleural spaces: There are no pleural effusions present. Heart: Heart size is normal. There is no pericardial effusion. There is mild coronary artery calcification. Lymph nodes: There is no evidence of lymphadenopathy. Vasculature: Unremarkable. No aortic aneurysm.? Bones/joints: Incidentally noted is fusion hardware at the lower cervical spine, only partially imaged. No acute fractures are identified. Soft tissues: Unremarkable. IMPRESSION: No active cardiopulmonary disease identified. Unchanged exam. CT Abdomen And Pelvis With Contrast Exam date and time: 06/13/2022 4:36 PM Age: 62 years old Clinical indication: Other: Ruq pain, mild elevation cbd, R/O stone TECHNIQUE: Imaging protocol: Computed tomography of the abdomen and pelvis with contrast. Radiation optimization: All CT scans at this facility use at least one of these dose optimization techniques: automated exposure control; mA and/or kV adjustment per patient size (includes targeted exams where dose is matched to clinical indication); or iterative reconstruction. Contrast material: OMNIPAQUE 350; Contrast volume: 100 ml; Contrast route: INTRAVENOUS (IV);? COMPARISON: CT CHEST/ABD/PEL W 06/01/2022 12:37 PM FINDINGS: Liver: Normal. No mass. Gallbladder and bile ducts: There is no biliary ductal dilatation. There is folding of the gallbladder fundus, but the gallbladder appears otherwise unremarkable. There is no evidence for gallbladder inflammation. No calcified gallstones are identified. Pancreas: The pancreas is moderately atrophic but appears otherwise unremarkable without focal lesion or evidence of acute inflammation. Spleen: Normal. No splenomegaly. Adrenal glands: Normal. No mass. Kidneys and ureters: There is multifocal renal cortical scarring involving both kidneys. There are multiple subcentimeter low-dense renal lesions which are too small to characterize but likely represent benign cysts. No renal or ureteral stones are identified. There is no hydronephrosis or hydroureter.? Again noted is mild urothelial thickening and hyperenhancement involving the right renal collecting system, pelvis and proximal right ureter, unchanged. Stomach and bowel: Findings suggest mild edematous wall thickening and mucosal hyperenhancement of the rectum, suggesting mild proctitis, without clear change from prior study. The prior moderate stool within the rectum has nearly completely resolved. Again noted are prominent air and fluid-filled loops small and large bowel, which are increased from prior study, without transition point, suggesting ileus. Appendix: Again noted are appendicpliths within the appendix. There is no evidence for acute appendicitis. Intraperitoneal space: Unremarkable. No free air. No significant fluid collection. Vasculature: The aorta and iliac arteries demonstrate moderate atherosclerotic calcification without aneurysm formation. Lymph nodes: Unremarkable. No enlarged lymph nodes. Urinary bladder: The bladder is nearly completely collapsed. There is a small amount of nondependent air within the bladder lumen, as on study. Reproductive:? Findings suggest fibroid uterus, as on prior study. Bones/joints:? Again noted is moderate degenerative disc disease at L5-S1.? No acute fracture. Soft tissues: Unremarkable. IMPRESSION: 1. No biliary ductal dilatation. No biliary stones identified. 2. No evidence for acute cholecystitis. 3. Prominent air and fluid-filled loops of small and large bowel without transition point, increased from prior study, suggesting ileus. 4. Findings of mild proctitis, without clear change from prior study. 5. Small amount of nondependent air within the bladder, as on prior study. Findings can be seen in the setting of cystitis or recent instrumentation. Recommend clinical correlation. 6. Urothelial thickening the right renal collecting system, pelvis and ureter, as on prior study, which can be seen in the setting of urinary tract infection. Recommend clinical correlation. Lab Data Lab results reviewed: Yes I reviewed the patient's lab results. Labs: 06/13/22 17:50 Urine - Reflex from Ua Urine Culture - Pending Laboratory Tests Range/Units 06/13/22 06/13/22 06/13/22 15:14 15:14 15:30 WBC (4.4-10.8) 10^3/uL 16.23 H RBC (3.93-5.22) 10^6/uL 4.56 Hgb (11.2-15.7) g/dL 10.9 L Hct (36.0-46.0) % 35.5 L MCV (80-95) fL 78 L MCH (27.0-33.0) pg 23.9 L MCHC (32.0-36.0) % 30.7 L RDW (11.7-14.6) % 16.8 H Plt Count (130-400) 10^3/uL 357 MPV (8.0-11.0) fL 9.1 Immature Gran % 0.6 Neutrophils % 79.7 Lymphocytes % 13.6 Monocytes % 5.4 Eosinophils % 0.5 Basophils % 0.2 Nucleated RBC % (0.0-0.3) % 0.0 Absolute Neutrophils (1.2-6.7) 10^3/uL 12.94 H Absolute Lymphocytes (1.2-3.4) 10^3/uL 2.21 Absolute Monocytes (0.1-0.8) 10^3/uL 0.88 H Absolute Eosinophils (0.0-0.7) 10^3/uL 0.08 Absolute Basophils (0.0-0.2) 10^3/uL 0.03 Sodium (136-145) mmol/L 131 L Potassium (3.5-5.1) mmol/L 3.5 Chloride (98-107) mmol/L 95 L Carbon Dioxide (21.0-32.0) mmol/L 26.1 Anion Gap (3-11) mmol/L 9.9 BUN (7-18) mg/dL 13 Creatinine (0.55-1.02) mg/dL 0.8 Est GFR (CKD-EPI 2020) (mL/min/1.73m2) 83.26 Glucose (74-106) mg/dL 174 H Calcium (8.5-10.1) mg/dL 9.4 Magnesium (1.8-2.4) mg/dL 1.7 L Total Bilirubin (0.2-1.0) mg/dL 0.6 AST (15-37) U/L 15 ALT (14-59) U/L 6 L Alkaline Phosphatase (46-116) U/L 91 Troponin I (<or=60) ng/L < 50 Total Protein (6.4-8.2) g/dL 7.7 Albumin (3.4-5.0) g/dL 2.8 L Lipase (73-393) U/L 61 Urine Color (Yellow) Urine Clarity (Clear) Urine pH (5-8) Ur Specific [place] (1.005-1.025) Urine Protein (Negative) mg/dL Urine Ketones (Negative) mg/dL Urine Blood (Negative) Urine Nitrite (Negative) Urine Bilirubin (Negative) Urine Urobilinogen (Up TO 0.2) EU/dL Ur Leukocyte Esterase (Negative) Urine RBC (0-2) HPF Urine WBC (0-5) HPF Ur Epithelial Cells (Negative) HPF Urine Crystals (Negative) HPF Urine Bacteria (Negative) HPF Urine Casts (Negative) LPF Urine Mucus (Negative) Ur Culture Indicated? Urine Glucose (Negative) mg/dL Stl C.difficile Tox PCR (Negative) Negative Range/Units 06/13/22 17:50 WBC (4.4-10.8) 10^3/uL RBC (3.93-5.22) 10^6/uL Hgb (11.2-15.7) g/dL Hct (36.0-46.0) % MCV (80-95) fL MCH (27.0-33.0) pg MCHC (32.0-36.0) % RDW (11.7-14.6) % Plt Count (130-400) 10^3/uL MPV (8.0-11.0) fL Immature Gran % Neutrophils % Lymphocytes % Monocytes % Eosinophils % Basophils % Nucleated RBC % (0.0-0.3) % Absolute Neutrophils (1.2-6.7) 10^3/uL Absolute Lymphocytes (1.2-3.4) 10^3/uL Absolute Monocytes (0.1-0.8) 10^3/uL Absolute Eosinophils (0.0-0.7) 10^3/uL Absolute Basophils (0.0-0.2) 10^3/uL Sodium (136-145) mmol/L Potassium (3.5-5.1) mmol/L Chloride (98-107) mmol/L Carbon Dioxide (21.0-32.0) mmol/L Anion Gap (3-11) mmol/L BUN (7-18) mg/dL Creatinine (0.55-1.02) mg/dL Est GFR (CKD-EPI 2020) (mL/min/1.73m2) Glucose (74-106) mg/dL Calcium (8.5-10.1) mg/dL Magnesium (1.8-2.4) mg/dL Total Bilirubin (0.2-1.0) mg/dL AST (15-37) U/L ALT (14-59) U/L Alkaline Phosphatase (46-116) U/L Troponin I (<or=60) ng/L Total Protein (6.4-8.2) g/dL Albumin (3.4-5.0) g/dL Lipase (73-393) U/L Urine Color (Yellow) Yellow Urine Clarity (Clear) Cloudy Urine pH (5-8) 7.0 Ur Specific [place] (1.005-1.025) 1.010 Urine Protein (Negative) mg/dL Trace H Urine Ketones (Negative) mg/dL Negative Urine Blood (Negative) Moderate H Urine Nitrite (Negative) Negative Urine Bilirubin (Negative) Negative Urine Urobilinogen (Up TO 0.2) EU/dL 0.2 Ur Leukocyte Esterase (Negative) Large H Urine RBC (0-2) HPF >50 H Urine WBC (0-5) HPF >50 H Ur Epithelial Cells (Negative) HPF Negative Urine Crystals (Negative) HPF Negative Urine Bacteria (Negative) HPF Many Urine Casts (Negative) LPF Negative Urine Mucus (Negative) Negative Ur Culture Indicated? Yes Urine Glucose (Negative) mg/dL 250 H Stl C.difficile Tox PCR (Negative) HPI General Mode of arrival: ambulatory. Date/Time Provider Initiated Documentation: 06/13/22 14:53. Limitations to Documentation: no limitations. Information obtained by: patient. HPI Narrative: Patient is a 62-year-old female from the [facility] with a history of CVA with right-sided hemiplegia, hypertension, diabetes, hypothyroidism, neurogenic bladder, morbid obesity and bedbound presents from the [facility] for persistent diarrhea for the past few months. She is also complaining of nausea and right-sided abdominal pain for the past few days. She states she last ate 2 days ago and has a diffuse headache. She denies any fever, chest pain, shortness of breath or vomiting. She describes her abdominal pain as sharp and most on the right side of her abdomen. Related Data Home Medications Medication Instructions Recorded Confirmed Multivitamin/Iron/Folic Acid 1 tab PO DAILY 08/08/17 06/13/22 [Centrum Adults Tablet] carbidopa 25 mg-levodopa 100 mg 1 tab PO QID 08/08/17 06/13/22 tablet docusate sodium 100 mg capsule 100 mg PO .BID, PRN 03/26/20 06/13/22 (Colace) mirtazapine 15 mg tablet 15 mg PO QHS 03/26/20 06/13/22 lamotrigine 25 mg tablet (Lamictal) 50 mg PO DAILY #1 tab 04/08/20 06/13/22 polyethylene glycol 3350 17 17 g PO DAILY 04/19/20 06/13/22 gram/dose oral powder (Miralax) levothyroxine 125 mcg capsule 100 mcg PO HS 06/23/20 06/13/22 trazodone 50 mg tablet 25 mg PO BID 07/07/20 06/13/22 bisacodyl 10 mg rectal suppository 10 mg SD ONCE PRN 08/17/20 06/13/22 metformin 500 mg tablet 1,000 mg PO BID 12/20/20 06/13/22 lactase 3,000 unit tablet (Lactaid) 9,000 unit PO TID 06/22/21 06/13/22 quetiapine 100 mg tablet 50 mg PO DAILY 06/22/21 06/13/22 acetaminophen 500 mg tablet 500 mg PO BID 06/01/22 06/13/22 albuterol sulfate 90 mcg/actuation 2 inh inhalation TID 06/01/22 06/13/22 aerosol inhaler (Ventolin HFA) aspirin 81 mg tablet,delayed 81 mg PO DAILY 06/01/22 06/13/22 release bupropion HCl 150 mg 24 hr tablet, 300 mg PO QAM 06/01/22 06/13/22 extended release cetirizine 10 mg tablet 10 mg PO QAM 06/01/22 06/13/22 diclofenac sodium 1 % topical gel 1 applic topical BID 06/01/22 06/13/22 dulaglutide 1.5 mg/0.5 mL 1 device subcut DIRECTED 06/01/22 06/13/22 subcutaneous pen injector (Trulicity) empagliflozin 25 mg tablet 1 tab PO DAILY 06/01/22 06/13/22 (Jardiance) fluticasone propionate 50 1 spray intranasal BID 06/01/22 06/13/22 mcg/actuation nasal spray,suspension (Flonase Allergy Relief) gabapentin 600 mg tablet 2 tab PO BID 06/01/22 06/13/22 glecaprevir 100 mg-pibrentasvir 40 3 tab PO DIRECTED 06/01/22 06/13/22 mg tablet (Mavyret) linaclotide 145 mcg capsule 145 mcg PO DAILY 06/01/22 06/13/22 magnesium oxide 800 mg PO DAILY 06/01/22 06/13/22 quetiapine 100 mg tablet 100 mg PO BID 06/01/22 06/13/22 sennosides 8.6 mg tablet 17.2 mg PO HS 06/01/22 06/13/22 ciprofloxacin HCl 500 mg tablet 500 mg PO BID 7 days #14 tabs 06/13/22 oxycodone 5 mg tablet 5 mg PO Q6H PRN pain #10 tabs 06/13/22 simethicone 180 mg capsule 1 cap PO TID 06/13/22 06/13/22 Previous Rx's Medication Instructions Recorded lamotrigine 25 mg tablet (Lamictal) 50 mg PO DAILY #1 tab 04/08/20 ciprofloxacin HCl 500 mg tablet 500 mg PO BID 7 days #14 tabs 06/13/22 oxycodone 5 mg tablet 5 mg PO Q6H PRN pain #10 tabs 06/13/22 Allergies Allergy/AdvReac Type Severity Reaction Status Date / Time naproxen [From Aleve] Allergy Unknown Itching Unverified 06/13/22 15:00 Penicillins Allergy Unknown Itching Unverified 06/13/22 15:00 propoxyphene Allergy Unknown Itching Unverified 06/13/22 15:00 Sulfa (Sulfonamide Allergy Unknown Itching Unverified 06/13/22 15:00 Antibiotics) methadone Allergy Verified 06/13/22 15:00 General Stated Complaint: Nausea/Vomit/Diar RUBENS: 3 Review of Systems All systems reviewed & are unremarkable except as noted in HPI and below Constitutional Constitutional: Reports as per HPI, Denies chills and Denies fever(s) Eyes Eyes: Denies blurry vision ENT Ears, Nose, Mouth, and Throat: Denies dizziness, Denies sore throat and Denies throat swelling Cardiovascular Cardiovascular: Denies chest pain and Denies dyspnea Respiratory Respiratory: Denies cough and Denies dyspnea Gastrointestinal Gastrointestinal: Reports abdominal pain, Reports diarrhea, Reports nausea and Denies vomiting Genitourinary Genitourinary: Denies hematuria and Denies dysuria Musculoskeletal Musculoskeletal: Denies back pain and Denies numbness Integumentary/Breasts Skin/Breast: Denies lesions and Denies rash Neurologic Neurologic: Denies dizziness, Denies localized weakness and Denies numbness Allergic/Immunologic Allergic/Immunologic: Denies throat swelling PFSH All Active Problems (Updated 06/13/22 @ 20:20 by Marisol Vegas DO) UTI (urinary tract infection) (Acute) Pneumonia (Acute) Chronic diarrhea (Acute) UTI (urinary tract infection) (Acute) Biliary colic (Acute) Chronic diarrhea (Acute) Arthritis of left shoulder region (Acute) Left rotator cuff tear (Acute) Fecal impaction in rectum (Acute) Cough (Acute) Ileus (Acute) Tardive dyskinesia (Acute) Parkinsonism (Acute) History of stroke (Acute) Right kidney stone (Acute) [employer] vasculitis (Chronic) UTI (urinary tract infection) (Acute) Chronic chest pain (Chronic) Discharge planning issues (Acute) DVT prophylaxis (Acute) Constipation (Acute) Bipolar 1 disorder (Chronic) Bipolar affective disorder, current episode depressed (Acute) rule out bipolar disorder reported by patient. Antiepileptics maybe preventing manic episode. Major depressive disorder, recurrent, severe with psychotic features (Acute) Current presentation is depression. She may have bipolar affective disorder. Ambulatory dysfunction (Chronic) Staghorn calculus (Acute) HCAP (healthcare-associated pneumonia) (Acute) Hemiparesis affecting right side as late effect of cerebrovascular accident (Acute) Weakness on left side of face (Acute) Dysphagia as late effect of cerebrovascular accident (CVA) (Chronic) Dysarthria as late effect of cerebrovascular accident (CVA) (Acute) Aphasia as late effect of cerebrovascular accident (Acute) Neck pain (Acute) Autoimmune disorder (Acute) Medical History (Updated 06/13/22 @ 20:20 by Marisol Vegas DO) D[place] (acute kidney injury) Anxiety Bipolar 1 disorder Cholelithiasis with acute cholecystitis s/p cholecystostomy and stone extraction in 2014 ([facility]), tube now pulled. 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 insufficiency Complicated UTI (urinary tract infection) Diverticulosis Hemiparesis affecting right side as late effect of cerebrovascular accident (CVA) Hepatitis C History of multiple cerebrovascular accidents (CVAs) Hypertension Hypothyroidism IDDM (insulin dependent diabetes mellitus) Lumbar disc disease Nephrolithiasis Neurogenic bladder Obesity (BMI 30.0-34.9) Palliative care encounter Septic shock Static encephalopathy Steroid dependent Uterine mass likely a fibroid UTI (urinary tract infection) Surgical History Abnormal cholangiogram H/O cervical spine surgery H/O foot surgery H/O wrist surgery History of extraction of renal calculus 12/13/2018 - [facility] History of hip surgery right History of lumbosacral spine surgery S/P cystoscopy with ureteral stent placement [facility] 11/2018 Status post creation of urethral sling by suprapubic approach Family History Mother Stroke Social History Smoking/Tobacco Use Status: Former Tobacco Use Smoking risk assessment performed?: Yes Alcohol Intake: former 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 Current gender identity: female What is your relationship status?: Panel score (0-1 are the most socially isolated patients): 0 What type of physical activity do you participate in: none Do you feel safe at home: Yes Do you feel safe in your relationship?: Yes Exam Const General: cooperative and no acute distress Orientation: alert and awake HENMT Head: normal to inspection Mouth: oral mucosae normal Teeth and gingiva: edentulous Eyes General: appearance normal, both eyes and all related structures Neck Neck: normal visual inspection Resp Effort & Inspection: normal respiratory effort and able to speak in complete sentences Auscultation: clear to auscultation bilaterally Cardio Rate: regular rate Rhythm: regular rhythm GI Inspection: distended and obesity Palpation: no hernias, no masses, not rigid and tender in the RLQ and in the RUQ Auscultation: hypoactive bowel sounds Skin General skin exam: no rashes or lesions noted Neuro General: patient alert, patient awake and patient oriented x3 Speech: abnormal speech slurred (baseline) Other: R sided weakness. Extrem General: no edema Other: R arm contracture at elbow Psych Appearance: grossly normal Affect: normal affect Course Vital Signs Vital signs: Vital Signs Temperature 97.9 F 06/13/22 14:56 Pulse 108 H 06/13/22 14:56 Respiratory Rate 16 06/13/22 14:56 Blood Pressure 102/50 L 06/13/22 14:56 Pulse Oximetry 95 06/13/22 14:56 Temperature 97.9 F 06/13/22 14:56 Pulse 108 H 06/13/22 14:56 Respiratory Rate 16 06/13/22 14:56 Respiratory Effort 09/20/22 15:01 Blood Pressure 102/50 L 06/13/22 14:56 Pulse Oximetry 95 06/13/22 14:56 Oxygen Delivery Method Room Air 06/13/22 14:56 Oxygen Flow Rate 0 06/13/22 14:56 Pain Level 8 06/13/22 14:56 Lab/Test Results Lab/Test Results: Laboratory Tests Range/Units 06/13/22 06/13/22 15:14 15:14 WBC (4.4-10.8) 10^3/uL 16.23 H RBC (3.93-5.22) 10^6/uL 4.56 Hgb (11.2-15.7) g/dL 10.9 L Hct (36.0-46.0) % 35.5 L MCV (80-95) fL 78 L MCH (27.0-33.0) pg 23.9 L MCHC (32.0-36.0) % 30.7 L RDW (11.7-14.6) % 16.8 H Plt Count (130-400) 10^3/uL 357 MPV (8.0-11.0) fL 9.1 Immature Gran % 0.6 Neutrophils % 79.7 Lymphocytes % 13.6 Monocytes % 5.4 Eosinophils % 0.5 Basophils % 0.2 Nucleated RBC % (0.0-0.3) % 0.0 Absolute Neutrophils (1.2-6.7) 10^3/uL 12.94 H Absolute Lymphocytes (1.2-3.4) 10^3/uL 2.21 Absolute Monocytes (0.1-0.8) 10^3/uL 0.88 H Absolute Eosinophils (0.0-0.7) 10^3/uL 0.08 Absolute Basophils (0.0-0.2) 10^3/uL 0.03 Sodium (136-145) mmol/L 131 L Potassium (3.5-5.1) mmol/L 3.5 Chloride (98-107) mmol/L 95 L Carbon Dioxide (21.0-32.0) mmol/L 26.1 Anion Gap (3-11) mmol/L 9.9 BUN (7-18) mg/dL 13 Creatinine (0.55-1.02) mg/dL 0.8 Est GFR (CKD-EPI 2020) (mL/min/1.73m2) 83.26 Glucose (74-106) mg/dL 174 H Calcium (8.5-10.1) mg/dL 9.4 Magnesium (1.8-2.4) mg/dL 1.7 L Total Bilirubin (0.2-1.0) mg/dL 0.6 AST (15-37) U/L 15 ALT (14-59) U/L 6 L Alkaline Phosphatase (46-116) U/L 91 Troponin I (<or=60) ng/L < 50 Total Protein (6.4-8.2) g/dL 7.7 Albumin (3.4-5.0) g/dL 2.8 L Lipase (73-393) U/L 61
[2022-06-13] MEDS: Ondansetron 4 MG/2 ML VIAL IVP (16:59)
[2022-06-13] MEDS: ACETAMINOPHEN 1,000 MG/100 ML BTL 400 MG IVPB (17:00)
[2022-06-13] MEDS: Normal Saline 1,000 ML 1000 ML IV ×2 (17:00→19:19)
[2022-06-13 17:04] LABS: C Diff PCR Negative (Negative)
[2022-06-13] MEDS: Omnipaque 350 MG/ML 100 ML BTL IV (17:04)
[2022-06-13] MEDS: Normal Saline Flush 10 ML SYR IVP (17:06)
--- NOTE | 2022-06-13 17:41 | DI.VRAD_ITS ---
PROCEDURE INFORMATION: Exam: CT Chest With Contrast; Diagnostic Exam date and time: 06/13/2022 4:36 PM Age: 62 years old Clinical indication: Other: Ruq pain, mild elevation cbd, R/O stone TECHNIQUE: Imaging protocol: Diagnostic computed tomography of the chest with contrast. Radiation optimization: All CT scans at this facility use at least one of these dose optimization techniques: automated exposure control; mA and/or kV adjustment per patient size (includes targeted exams where dose is matched to clinical indication); or iterative reconstruction. Contrast material: OMNIPAQUE 350; Contrast volume: 100 ml; Contrast route: INTRAVENOUS (IV); COMPARISON: CT CHEST/ABD/PEL W 06/01/2022 12:37 PM FINDINGS: Lungs: Again noted are regions of atelectasis within the dependent aspect of the right lower lobe, without clear change. Pleural spaces: There are no pleural effusions present. Heart: Heart size is normal. There is no pericardial effusion. There is mild coronary artery calcification. Lymph nodes: There is no evidence of lymphadenopathy. Vasculature: Unremarkable. No aortic aneurysm. Bones/joints: Incidentally noted is fusion hardware at the lower cervical spine, only partially imaged. No acute fractures are identified. Soft tissues: Unremarkable. IMPRESSION: No active cardiopulmonary disease identified. Unchanged exam. PROCEDURE INFORMATION: Exam: CT Abdomen And Pelvis With Contrast Exam date and time: 06/13/2022 4:36 PM Age: 62 years old Clinical indication: Other: Ruq pain, mild elevation cbd, R/O stone TECHNIQUE: Imaging protocol: Computed tomography of the abdomen and pelvis with contrast. Radiation optimization: All CT scans at this facility use at least one of these dose optimization techniques: automated exposure control; mA and/or kV adjustment per patient size (includes targeted exams where dose is matched to clinical indication); or iterative reconstruction. Contrast material: OMNIPAQUE 350; Contrast volume: 100 ml; Contrast route: INTRAVENOUS (IV); COMPARISON: CT CHEST/ABD/PEL W 06/01/2022 12:37 PM FINDINGS: Liver: Normal. No mass. Gallbladder and bile ducts: There is no biliary ductal dilatation. There is folding of the gallbladder fundus, but the gallbladder appears otherwise unremarkable. There is no evidence for gallbladder inflammation. No calcified gallstones are identified. Pancreas: The pancreas is moderately atrophic but appears otherwise unremarkable without focal lesion or evidence of acute inflammation. Spleen: Normal. No splenomegaly. Adrenal glands: Normal. No mass. Kidneys and ureters: There is multifocal renal cortical scarring involving both kidneys. There are multiple subcentimeter low-dense renal lesions which are too small to characterize but likely represent benign cysts. No renal or ureteral stones are identified. There is no hydronephrosis or hydroureter. Again noted is mild urothelial thickening and hyperenhancement involving the right renal collecting system, pelvis and proximal right ureter, unchanged. Stomach and bowel: Findings suggest mild edematous wall thickening and mucosal hyperenhancement of the rectum, suggesting mild proctitis, without clear change from prior study. The prior moderate stool within the rectum has nearly completely resolved. Again noted are prominent air and fluid-filled loops small and large bowel, which are increased from prior study, without transition point, suggesting ileus. Appendix: Again noted are appendicpliths within the appendix. There is no evidence for acute appendicitis. Intraperitoneal space: Unremarkable. No free air. No significant fluid collection. Vasculature: The aorta and iliac arteries demonstrate moderate atherosclerotic calcification without aneurysm formation. Lymph nodes: Unremarkable. No enlarged lymph nodes. Urinary bladder: The bladder is nearly completely collapsed. There is a small amount of nondependent air within the bladder lumen, as on study. Reproductive: Findings suggest fibroid uterus, as on prior study. Bones/joints: Again noted is moderate degenerative disc disease at L5-S1. No acute fracture. Soft tissues: Unremarkable. IMPRESSION: 1. No biliary ductal dilatation. No biliary stones identified. 2. No evidence for acute cholecystitis. 3. Prominent air and fluid-filled loops of small and large bowel without transition point, increased from prior study, suggesting ileus. 4. Findings of mild proctitis, without clear change from prior study. 5. Small amount of nondependent air within the bladder, as on prior study. Findings can be seen in the setting of cystitis or recent instrumentation. Recommend clinical correlation. 6. Urothelial thickening the right renal collecting system, pelvis and ureter, as on prior study, which can be seen in the setting of urinary tract infection. Recommend clinical correlation. Dictated and Authenticated by: Abhishek Clemons MD. Ordering:JUAN Damon MD
[2022-06-13 18:14] LABS: Bilirubin Negative (Negative); Blood Moderate (Negative); Clarity Cloudy (Clear); Glucose 250 mg/dL (Negative); Ketones Negative (Negative); Leukocyte Esterase Large (Negative); Nitrite Negative (Negative); Urobilinogen 0.2 EU/dL (Up TO 0.2)
[2022-06-13] MEDS: HYDROmorphone 2 MG/ML SYR 0.5 MG IVP (18:19)
[2022-06-13 18:29] LABS: Bacteria Many HPF (Negative); Casts Negative LPF (Negative); Crystals Negative HPF (Negative); Epithelial Cells Negative HPF (Negative); Mucus Negative (Negative); RBC >50 HPF (0-2); WBC >50 HPF (0-5)
[2022-06-13 18:30] LABS: C & S Indicated? Yes
[2022-06-13] MEDS: Ciprofloxacin 500 MG TAB PO (20:27)
[2022-06-13] MEDS: oxyCODONE 5 MG TAB PO (20:27)
--- NOTE | 2022-06-13 21:04 | NUR.NOTE ---
Referral faxed to [facility] to f/u 1-2 weeks for biliary colic.Nursing Note:
--- NOTE | 2022-06-14 18:56 | ED.FU.B_ITS ---
Follow Up Plan: I received call from Dr. Combs overreading CT of the abdomen pelvis. His impression is as follows: 1. Again noted is enhancement of the uroepithelial lining of the right kidney and ureter., this similar to the most recent CT scan.? However, I note that CT scan of 11/05/2020 revealed numerous calculi in the left kidney and renal pelvi s.? Therefore this enhancement may be related to prior instrumentation and stent placement.? Nevertheless, it brings up suspicion also for infectious etiology. 2. Similar findings not seen in the left kidney. 3. I ileus pattern but no bowel obstruction. 4. The head of the pancreas appears mildly hypodense when compared to the pancreatic body and tail, possibly indicating inflammatory process.? However, also cannot exclude subtle neoplasm at this level in the pancreatic head.? Recommend follow-up pancreatic MRI. Enlarged fibroid uterus again noted. Mild infiltrate in the right lower lobe (lung). Dr. Combs notes additional finding of abnormal pancreatic head hypodensity and infiltrate of the right lower lobe. I called and spoke with on-call nurse practitioner Palma at the [facility] and relayed results and faxed CT report with additional findings. She will ensure timely follow-up and treatment.
[2022-06-14 23:26] LABS: Campylobacter PCR Negative (Negative); Salmonella PCR Negative (Negative); Shiga Toxin PCR Negative (Negative); Shigella/Enteroinvasive Ecoli Negative (Negative)
--- NOTE | 2022-06-15 09:18 | W.PM.PROGNOT ---
Date of Service Date of service: 06/15/22 Time of Service: 09:18 Assessment and Plan Assessment and plan (1) Gallstones: Status: Acute Subjective Subjective Interval history since last seen: Patient was recently in the ER with diarrhea. She seems to have problems with chronic constipation and then diarrhea. It is unclear if the diarrhea is from the gallstones or just from her other comorbidities. I did discuss the patient with anesthesia. They do not think she is a candidate for anesthesia at [facility]. If it is determined that it is the gallstones that are the cause of the pain and the diarrhea, she would need to go down to [facility] for surgery. She is an extremely poor candidate for surgery given her multiple medical problems. She did have a cholecystotomy tube in for an acute infection in 2014. She was determined to not be a good candidate for surgery at that time. Objective Last Vital Signs Temp 36.6 C 06/13/22 14:56 Pulse 90 06/13/22 20:39 Resp 22 06/13/22 20:39 BP 102/56 L 06/13/22 20:39 Pulse Ox 95 06/13/22 20:39 Laboratory Results - last 24 hr 06/13/22 15:30 Stool Campylobacter PCR Negative Stool Salmonella PCR Negative Stool Shigella PCR Negative Shiga Toxin (PCR) Negative
== END 2022-06-13 21:14 | disposition home or self-care (01) ==
PROVIDERS: Emergency Provider Physician Assistant; PCP Family Medicine
DX: K52.9 Noninfective gastroenteritis and colitis, unspecified (principal); K80.70 Calculus of gallbladder and bile duct without cholecystitis without obstruction; N39.0 Urinary tract infection, site not specified; B96.89 Other specified bacterial agents as the cause of diseases classified elsewhere; E11.9 Type 2 diabetes mellitus without complications; I10 Essential (primary) hypertension; Z87.891 Personal history of nicotine dependence; Z79.4 Long term (current) use of insulin
CPT/HCPCS: 74177; 80053; 83690; 87493; 87505; 96361; 96374; 96375; 96376; 99285; 71260; 76705; 81003; 81015; 83735; 84484; 85025; 87086; 99284; J0131; J1170; J2405; J3490

== ENCOUNTER 2022-06-20 18:52 | Outpatient (REF) | payer MEDICAID, SELFPAY ==
[2022-06-20 19:57] LABS: HCT 36.8 % (36.0-46.0); HGB 10.4 g/dL (11.2-15.7); MCH 23.7 pg (27.0-33.0); MCHC 28.3 % (32.0-36.0); MCV 84 fL (80-95); MPV 9.4 fL (8.0-11.0); Platelet Count 424 10^3/uL (130-400); RBC 4.38 10^6/uL (3.93-5.22); RDW 17.1 % (11.7-14.6); RDW-SD 52.3 fL; WBC 6.01 10^3/uL (4.4-10.8)
[2022-06-20 21:04] LABS: Hemoglobin A1C 5.9 % (<5.7)
[2022-06-20 21:33] LABS: ALT 13 U/L (14-59); AST 24 U/L (15-37); Alkaline Phosphatase 98 U/L (46-116); Anion Gap 8.6 mmol/L (3-11); BUN 9 mg/dL (7-18); Bilirubin, Total 0.4 mg/dL (0.2-1.0); CO2 29.4 mmol/L (21.0-32.0); CREATININE 0.8 mg/dL (0.55-1.02); Calcium 9.2 mg/dL (8.5-10.1); Chloride 101 mmol/L (98-107); Estimated GFR 83.26 (mL/min/1.73m2); Glucose 87 mg/dL (74-106); Potassium 4.5 mmol/L (3.5-5.1); Sodium 139 mmol/L (136-145); Total Protein 7.3 g/dL (6.4-8.2); Vitamin B12 304 pg/mL (193-986)
[2022-06-22 05:40] LABS: Vitamin D 25 Total 45.6 ng/mL (30-100)
== END 2022-06-20 18:53 | disposition home or self-care (01) ==
LOC: LBN 18:52
PROVIDERS: PCP Family Medicine; Visit Provider Nurse Practitioner Gerontology
DX: E27.40 Unspecified adrenocortical insufficiency (principal); E11.59 Type 2 diabetes mellitus with other circulatory complications; R68.89 Other general symptoms and signs
CPT/HCPCS: 80053; 82306; 85027; 82607; 83036

== ENCOUNTER 2022-07-03 17:58 | Outpatient (REF) | payer MEDICAID, SELFPAY ==
[2022-07-03 18:15] LABS: Hemoglobin A1C 5.7 % (<5.7)
== END 2022-07-03 17:59 | disposition home or self-care (01) ==
LOC: LBN 17:58
PROVIDERS: PCP Family Medicine; Visit Provider Nurse Practitioner Gerontology
DX: E11.65 Type 2 diabetes mellitus with hyperglycemia (principal)
CPT/HCPCS: 83036

== ENCOUNTER 2022-08-15 18:34 | Outpatient (REF) | payer MEDICAID, SELFPAY ==
[2022-08-15 19:35] LABS: Abs Immature Grans 0.02 10^3/uL (0.0-0.06); Absolute Basophil Count 0.04 10^3/uL (0.0-0.2); Absolute Eosinophil Count 0.09 10^3/uL (0.0-0.7); Absolute Lymphocyte Count 1.99 10^3/uL (1.2-3.4); Absolute Monocyte Count 0.45 10^3/uL (0.1-0.8); Absolute Neutrophil Count 6.34 10^3/uL (1.2-6.7); Basophils % 0.4; HCT 33.8 % (36.0-46.0); HGB 9.6 g/dL (11.2-15.7); Immature Grans % 0.2; Lymphocytes % 22.3; MCH 22.9 pg (27.0-33.0); MCHC 28.4 % (32.0-36.0); MCV 81 fL (80-95); MPV 9.5 fL (8.0-11.0); Neutrophils % 71.1; Platelet Count 371 10^3/uL (130-400); RDW-SD 46.4 fL; WBC 8.93 10^3/uL (4.4-10.8)
[2022-08-15 19:54] LABS: ALT 41 U/L (14-59); AST 45 U/L (15-37); Albumin 3.9 g/dL (3.4-5.0); Alkaline Phosphatase 86 U/L (46-116); Anion Gap 12.3 mmol/L (3-11); BUN 18 mg/dL (7-18); Bilirubin, Total 0.3 mg/dL (0.2-1.0); C-Reactive Protein 1.15 mg/dL (0.0-0.3); CO2 24.7 mmol/L (21.0-32.0); CREATININE 0.7 mg/dL (0.55-1.02); Calcium 9.6 mg/dL (8.5-10.1); Chloride 99 mmol/L (98-107); Estimated GFR 97.72 (mL/min/1.73m2); Glucose 183 mg/dL (74-106); Potassium 5.1 mmol/L (3.5-5.1); Sodium 136 mmol/L (136-145); Uric Acid 4.9 mg/dL (2.6-6.0)
== END 2022-08-15 18:35 | disposition home or self-care (01) ==
LOC: LBN 18:34
PROVIDERS: PCP Family Medicine; Visit Provider Nurse Practitioner Gerontology
DX: N20.0 Calculus of kidney (principal); R68.89 Other general symptoms and signs; I10 Essential (primary) hypertension; R79.89 Other specified abnormal findings of blood chemistry
CPT/HCPCS: 80053; 84550; 85025; 86140

== ENCOUNTER 2022-09-26 19:01 | Outpatient (REF) | payer MEDICAID, SELFPAY ==
[2022-09-26 20:57] LABS: Folate 12.3 ng/mL (8.6-20.0); Vitamin B12 197 pg/mL (193-986)
[2022-09-26 21:08] LABS: Iron 16 ug/dL (50-170)
== END 2022-09-26 19:02 | disposition home or self-care (01) ==
LOC: LBN 19:01
PROVIDERS: PCP Family Medicine; Visit Provider Nurse Practitioner Gerontology
DX: N20.0 Calculus of kidney (principal); G81.01 Flaccid hemiplegia affecting right dominant side
CPT/HCPCS: 87329; 82607; 82746; 83540

== ENCOUNTER 2022-11-09 10:09 | Inpatient (IN) | payer MEDICAID, SELFPAY ==
[2022-11-09] VITALS (85 sets, daily range): BP systolic 80–206; BP diastolic 44–92; PULSE 74–128; RESP 10–25; TEMP 36.8–38.1; O2SAT 89–98; BMI 29.9
--- NOTE | 2022-11-09 10:12 | ED.GENADUL_ITS ---
Discharge Plan Discharge Details Chief Complaint: Abd Prob Clinical Impression: Pyuria due to bacterial urinary tract infection, Hydronephrosis of right kidney, Leukocytosis, Acute kidney injury Primary Care Provider: Agueda Bingham ED Provider: Abhishek Montoya [place] Meds and New Rx's Prescriptions: No Action trazodone 50 mg tablet 25 mg PO BID metformin 500 mg tablet 1,000 mg PO BID bisacodyl 10 mg suppository 10 mg MT ONCE PRN lactase [Lactaid] 3,000 unit tablet 9,000 unit PO TID Rx Instructions: administer with meals and/or snacks simethicone 180 mg capsule 1 cap PO QID PRN docusate sodium [Colace] 100 mg Capsule 100 mg PO .BID, PRN mirtazapine 15 mg Tablet 15 mg PO QHS lamotrigine [Lamictal] 25 mg Tablet 50 mg PO DAILY Qty: 1 0RF quetiapine 100 mg tablet 50 mg PO DAILY Patient Comments: 100 mg BID, 50 mg daily at 2pm polyethylene glycol 3350 [Miralax] 17 gram/dose Powder 17 g PO DAILY PRN aspirin 81 mg Tablet,Delayed Release (Dr/Ec) 81 mg PO DAILY bupropion HCl 150 mg tablet extended release 24 hr 150 mg PO QAM cetirizine 10 mg Tablet 10 mg PO QAM linaclotide 145 mcg Capsule 145 mcg PO DAILY magnesium oxide 400 mg magnesium Tablet 800 mg PO DAILY acetaminophen 500 mg Tablet 500 mg PO BID diclofenac sodium 1 % Gel 1 applic TOPICAL BID fluticasone propionate [Flonase Allergy Relief] 50 mcg/actuation [place],Suspension 1 spray INTRANASAL BID gabapentin 600 mg tablet 2 tab PO BID quetiapine 100 mg Tablet 100 mg PO BID sennosides 8.6 mg Tablet 17.2 mg PO HS PRN albuterol sulfate [Ventolin HFA] 90 mcg/actuation HFA aerosol inhaler 2 inh INHALATION TID Jardiance 25 mg tablet 1 tab PO DAILY Trulicity 1.5 mg/0.5 mL pen injector 1 device SUBCUT DIRECTED Rx Instructions: weekly levothyroxine 100 mcg Tablet 100 mcg PO DAILY Tussaphen-DM 5-10-100 mg/5 mL Liquid 10 ml PO Q4H PRN omeprazole 20 mg Capsule,Delayed Release(Dr/Ec) 20 mg PO DAILY carbidopa-levodopa 25-100 mg Tablet 1 tab PO QID B-complex with vitamin C [Vitamin B and C] Capsule 1 cap PO DAILY Centrum Complete 18-400 mg-mcg Tablet 1 tab PO DAILY ropinirole 0.5 mg Tablet 0.5 mg PO QHS Rx Instructions: administer 1-3 hours before bedtime Medical Decision Making In this hypotensive and tachycardic female with reported fevers last night and abdominal pain and distention I am concerned for sepsis. She does have right lower quadrant tenderness which raises possible cholecystitis. Will obtain 2 sets of blood cultures, lactate provide 1 L IV fluid bolus treat empirically with cefepime and vancomycin. No rash to abdomen to suggest zoster. No chest pain nor shortness of breath to suggest PE nor ACS. Chart review indicates CODE STATUS is DNI DNR. We will proceed to CT scan and obtain comprehensive metabolic panel in addition to CBC. In the absence of hydronephrosis ureterolithiasis is less likely. No urinary symptoms however will obtain a straight cath for urinalysis. Given hypotension will obtain 2 lines. 11:30 AM Chart review indicates the patient has been markedly hypotensive in the past in the ED. Given that she is mentating well and has a normal lactate we will defer norepinephrine at this point time. Urinalysis positive for leuk esterase concerning for infection. Urinalysis also significant for glucosuria however the patient has no anion gap and no ketonuria so not suspicious for DKA. Patient is on metformin which could certainly explain her glucose area. 1240pm I spoke with Erika Gutierres from urology. She advised that the patient would be well served by a stent but that she was a poor surgical candidate and not appropriate for [facility]. She also advised that the patient would likely benefit from treatment at a facility with infectious disease. Patient has been seen in the past by Dr. Foster at [facility] so I paged the transfer center at [facility] to request transfer. 2:35 PM I spoke with Dr. Alvarez from urology and asked them to help arrange a transfer as the transfer center reported that there are urologist, Dr. Kaiser, requested that the procedure be locally. I explained to the transfer center that our urologist and anesthesiologist felt that this was not appropriate and that [facility] would not serve the patient well. 3:34 PM I spoke with [facility] again to attempt to initiate transfer. I also called [facility] but they unfortunately are at capacity not accepting transfers. I spoke again to [facility] and Dr. Kaiser felt that the patient would be best served locally. I advised him that our anesthesiology team was not comfortable providing sedation for the patient and her urologist advised transfer. [facility] is at capacity but they will touch base with the emergency department to possibly accept the patient there. I also reached out to [facility] to inquire about transfer. 4 PM I received an accepting, Dr. Solis in the ED a [facility]. I spoke with Dr. Alvarez from urology. He said that given that the patient would require return from [facility] back to [facility] that he would request that anesthesia complete the procedure here. We will reach out to the hospitalist team to request hospitalization. Dr. Mendieta from the hospitalist team graciously excepted the patient locally for hospitalization in the setting of her emphysematous pyelonephritis. We will cancel transportation and have health community administrator Klarissa call back [facility]. HPI General Date/Time Provider Initiated Documentation: 11/09/22 10:12 . HPI Narrative: This is a 62-year-old female with a history of bipolar disorder, right-sided hemiparalysis status post stroke approximately 6 years ago, diabetes, and hepatitis C with advanced cirrhosis status post treatment last year with 8 weeks of Mavyet now in the emergency department after arriving via EMS in the setting of right-sided abdominal pain and reported fever up to 102 ?F as taken temporally last night at her nursing home facility. Of note patient been deemed a poor surgical candidate and in 2014 had a PERC Ginny tube placed. She has been nauseous but she has not been vomiting. She has had persistent diarrhea she notes for the past several years. She says her right-sided abdominal pain is sharp and primarily located in her right lower quadrant. She denies dysuria and frequency. Related Data Home Medications Medication Instructions Recorded Confirmed docusate sodium 100 mg capsule 100 mg PO .BID, PRN 03/26/20 11/09/22 (Colace) mirtazapine 15 mg tablet 15 mg PO QHS 03/26/20 11/09/22 lamotrigine 25 mg tablet (Lamictal) 50 mg PO DAILY #1 tab 04/08/20 11/09/22 polyethylene glycol 3350 17 17 g PO DAILY PRN 04/19/20 11/09/22 gram/dose oral powder (Miralax) trazodone 50 mg tablet 25 mg PO BID 07/07/20 11/09/22 bisacodyl 10 mg rectal suppository 10 mg MT ONCE PRN 08/17/20 11/09/22 metformin 500 mg tablet 1,000 mg PO BID 12/20/20 11/09/22 lactase 3,000 unit tablet (Lactaid) 9,000 unit PO TID 06/22/21 11/09/22 quetiapine 100 mg tablet 50 mg PO DAILY 06/22/21 11/09/22 acetaminophen 500 mg tablet 500 mg PO BID 06/01/22 11/09/22 albuterol sulfate 90 mcg/actuation 2 inh inhalation TID 06/01/22 11/09/22 aerosol inhaler (Ventolin HFA) aspirin 81 mg tablet,delayed 81 mg PO DAILY 06/01/22 11/09/22 release bupropion HCl 150 mg 24 hr tablet, 150 mg PO QAM 06/01/22 11/09/22 extended release cetirizine 10 mg tablet 10 mg PO QAM 06/01/22 11/09/22 diclofenac sodium 1 % topical gel 1 applic topical BID 06/01/22 11/09/22 dulaglutide 1.5 mg/0.5 mL 1 device subcut DIRECTED 06/01/22 11/09/22 subcutaneous pen injector (Trulicity) empagliflozin 25 mg tablet 1 tab PO DAILY 06/01/22 11/09/22 (Jardiance) fluticasone propionate 50 1 spray intranasal BID 06/01/22 11/09/22 mcg/actuation nasal spray,suspension (Flonase Allergy Relief) gabapentin 600 mg tablet 2 tab PO BID 06/01/22 11/09/22 linaclotide 145 mcg capsule 145 mcg PO DAILY 06/01/22 11/09/22 magnesium oxide 800 mg PO DAILY 06/01/22 11/09/22 quetiapine 100 mg tablet 100 mg PO BID 06/01/22 11/09/22 sennosides 8.6 mg tablet 17.2 mg PO HS PRN 06/01/22 11/09/22 simethicone 180 mg capsule 1 cap PO QID PRN 06/13/22 11/09/22 B-complex with vitamin C 1 cap PO DAILY 11/09/22 11/09/22 carbidopa 25 mg-levodopa 100 mg 1 tab PO QID 11/09/22 11/09/22 tablet levothyroxine 100 mcg tablet 100 mcg PO DAILY 11/09/22 11/09/22 multivitamin-ferrous 1 tab PO DAILY 11/09/22 11/09/22 fumarate-folic acid 18 mg-400 mcg tablet (Centrum Complete) omeprazole 20 mg capsule,delayed 20 mg PO DAILY 11/09/22 11/09/22 release sxckyerexeedg-ZD-ezftzewqqyf 5 10 ml PO Q4H PRN 11/09/22 11/09/22 mg-10 mg-100 mg/5 mL oral liquid ropinirole 0.5 mg tablet 0.5 mg PO QHS 11/09/22 11/09/22 Previous Rx's Medication Instructions Recorded lamotrigine 25 mg tablet (Lamictal) 50 mg PO DAILY #1 tab 04/08/20 Allergies Allergy/AdvReac Type Severity Reaction Status Date / Time naproxen [From Aleve] Allergy Unknown Itching Unverified 11/09/22 10:14 Penicillins Allergy Unknown Itching Unverified 11/09/22 10:14 propoxyphene Allergy Unknown Itching Unverified 11/09/22 10:14 Sulfa (Sulfonamide Allergy Unknown Itching Unverified 11/09/22 10:14 Antibiotics) methadone Allergy Verified 11/09/22 10:14 General RUBENS: 3 PFSH All Active Problems (Updated 11/09/22 @ 16:43 by Danny Alvarez MD) Emphysematous pyelonephritis (Acute) Pyuria due to bacterial urinary tract infection (Acute) Hydronephrosis of right kidney (Acute) Leukocytosis (Acute) Acute kidney injury (Acute) Gallstones (Acute) Arthritis of left shoulder region (Acute) Left rotator cuff tear (Acute) Fecal impaction in rectum (Acute) Cough (Acute) Ileus (Acute) Tardive dyskinesia (Acute) Parkinsonism (Acute) History of stroke (Acute) Right kidney stone (Acute) RESEARCH PROJECT COORDINATOR vasculitis (Chronic) UTI (urinary tract infection) (Acute) Chronic chest pain (Chronic) Discharge planning issues (Acute) DVT prophylaxis (Acute) Constipation (Acute) Bipolar 1 disorder (Chronic) Bipolar affective disorder, current episode depressed (Acute) rule out bipolar disorder reported by patient. Antiepileptics maybe preventing manic episode. Major depressive disorder, recurrent, severe with psychotic features (Acute) Current presentation is depression. She may have bipolar affective disorder. Ambulatory dysfunction (Chronic) Staghorn calculus (Acute) HCAP (healthcare-associated pneumonia) (Acute) Hemiparesis affecting right side as late effect of cerebrovascular accident (Acute) Weakness on left side of face (Acute) Dysphagia as late effect of cerebrovascular accident (CVA) (Chronic) Dysarthria as late effect of cerebrovascular accident (CVA) (Acute) Aphasia as late effect of cerebrovascular accident (Acute) Neck pain (Acute) Autoimmune disorder (Acute) Medical History (Updated 11/09/22 @ 16:43 by Danny Alvarez MD) D[place]TON (acute kidney injury) Anxiety Bipolar 1 disorder Cholelithiasis with acute cholecystitis s/p cholecystostomy and stone extraction in 2014 ([facility]), tube now pulled. 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 insufficiency Complicated UTI (urinary tract infection) Diverticulosis Hemiparesis affecting right side as late effect of cerebrovascular accident (CVA) Hepatitis C History of multiple cerebrovascular accidents (CVAs) Hypertension Hypothyroidism IDDM (insulin dependent diabetes mellitus) Lumbar disc disease Nephrolithiasis Neurogenic bladder Obesity (BMI 30.0-34.9) Palliative care encounter Septic shock Static encephalopathy Steroid dependent Uterine mass likely a fibroid UTI (urinary tract infection) Surgical History Abnormal cholangiogram H/O cervical spine surgery H/O foot surgery H/O wrist surgery History of extraction of renal calculus 12/13/2018 - [facility] History of hip surgery right History of lumbosacral spine surgery S/P cystoscopy with ureteral stent placement [facility] 11/2018 Status post creation of urethral sling by suprapubic approach Family History Mother Stroke Social History Smoking/Tobacco Use Status: Former Tobacco Use Smoking risk assessment performed?: Yes Alcohol Intake: former Substance use type: former substance user and IV drugs Housing: senior living Number of Children: 5 Education Level: elementary school Details: 6th grade, special ed, left school age 16. Current gender identity: female What is your relationship status?: Panel score (0-1 are the most socially isolated patients): 0 What type of physical activity do you participate in: none Do you feel safe at home: Yes Do you feel safe in your relationship?: Yes Exam Narrative Exam Narrative: General: Chronically ill-appearing in no acute distress speaking in complete sentences. Lying on stretcher alert with slurred speech. Cooperative and answering questions appropriately. Head: Normocephalic, atraumatic Ear, nose, mouth, throat: Edentulous. Handling secretions. Neck: Trachea midline. Cardiovascular: Well-perfused distal extremities. Respiratory: Nonlabored respiration. Decreased breath sounds bilateral bases. Gastrointestinal: Distended abdomen. Hyperactive bowel sounds. Right lower quadrant tenderness. No rebound. No guarding. Back: No signs of sacral decubitus ulcer Musculoskeletal: No edema. Moving all 4 extremities spontaneously. Skin:. No acute rash to abdomen. Neurologic: Alert and appropriate, no apparent acute deficits. Psychiatric: Mood and manner are appropriate. Grooming and personal hygiene are appropriate. POCUS Exam (ED) Limited Gallbladder Exam DATE OF EXAM: 11/09/22 TIME OF EXAM: 10:34 REASON FOR VISIT: Abdominal pain VISUALIZED STRUCTURES: Gallbladder and Gallbladder wall PERTINENT FINDINGS/IMPRESSION: Cholecystitis and Other, (No sonographic Lindsay's. No gallbladder wall thickening) No sonographic Lindsay's. ; No Pericholecystic fluid Exam complete Limited Retroperitoneal(Renal)Exam DATE OF EXAM: 11/09/22 TIME OF EXAM: 10:35 PROVIDER THAT PERFORMED THE STUDY: Abhishek Montoya REASON FOR EXAM: Flank pain/right side VISUALIZED STRUCTURES: Right kidney PERTINENT FINDINGS/IMPRESSION: no hydronephrosis present Exam complete
--- NOTE | 2022-11-09 10:30 | DI.CT_ITS ---
Exam(s) CT ABDOMEN PELVIS W EXAM: CT ABDOMEN PELVIS W CLINICAL HISTORY: Right lower quadrant pain fevers. TECHNIQUE: Imaging Protocol: Axial computed tomography images with coronal and sagittal reformatted images were created and reviewed CONTRAST MATERIAL: Intravenous: Omnipaque-350 100cc Oral: None COMPARISON: CT CT RENAL COLIC WO from 11/05/[address] CHEST/ABD/PEL W from 06/13/2022 FINDINGS: VISUALIZED LUNG BASES: No nodules nor pleural effusions evident. ABDOMEN: There is no ascites. LIVER: There are no focal hepatic lesions evident. No dilated intrahepatic ducts. GALLBLADDER/BILIARY: No obvious gallbladder pathology. CBD is not dilated. PANCREAS: No evidence of pancreatic mass nor dilatation of the pancreatic duct. SPLEEN: Spleen is not enlarged. No obvious intrasplenic lesions. Splenic and portal veins are paten t. ADRENALS: There are no significant adrenal masses. KIDNEYS:Left kidney unremarkable. On the right side there is hydronephrosis and hydroureter well as air-gas seen within the upper right collecting system including calices and right renal pelvis. Also in the upper right ureter. The right ureter is dilated to a diameter of 1.8 cm. There is a small d ensity in the pelvic ureter measuring 6 millimeters (series 4/image 81) what appears to be transition point in the ureter few cm above the bladder. No calculus seen at the ureterovesical junction. The re is a catheter coiled in the bladder lumen. Bladder is not distended. ABDOMINAL AORTA: Abdominal aorta is not enlarged. LYMPH NODES:There is no retroperitoneal nor paraaortic adenopathy. ABDOMINAL WALL: No evidence of significant anterior abdominal wall nor inguinal hernia. GI: There is no evidence of bowel obstruction, free air, nor abscess. Sigmoid is redundant. There is also circumferential thickening of the wall of the rectosigmoid which exhibits diameter of 6 millimeters-probable chronic colitis pattern. PELVIS: GI: No evidence of appendicitis.No evidence of sigmoid diverticulitis. LYMPH NODES: There is no intrapelvic nor inguinal adenopathy. REPRODUCTIVE: Uterus is prominent and lobulated consistent with multiple fibroids. No adnexal masses evident. No free fluid. URINARY BLADDER: Catheter in place coiled in the urinary bladder. Bladder is collapsed OSSEOUS: No fractures. Chronic advanced disc space narrowing at L5-S1 level again noted. No lytic o sseous lesions evident. IMPRESSION: 1. In this patient who has previously had a staghorn calculus in the right kidney there is now unilat eral right-sided hydronephrosis and hydroureter evident. There is a small 5-6 millimeter density in the lower right ureter within the pelvis which may be a small calculus. This appears to be the trans ition point with the ureter dilated up to 18 millimeters above this level. There is also air-gas in the upper collecting system within the renal pelvis and kidney infundibuli. This is either related t o prior instrumentation and/or infection 2. No significant findings in the opposite-left kidney. 3. Martinez catheter is coiled in the urinary bladder. The bladder is collapsed around the Martinez. 4. Circumferential thickening the wall of rectosigmoid again noted. Approximately 6 millimeter thick . No focal lesion. No diverticulitis. RADIATION DOSE DELIVERED: 1,522.09mGy.cm Total DLP DATA REPOSITORY: All CT scans at this facility are submitted to the National Radiology Data Registry (NRDR) Dose Index Registry (DIR) with the [employer] (ACR). RADIATION OPTIMIZATION: All CT scans at this facility use at least one of these dose optimization te chniques: automated exposure control; mA and/or kV adjustment per patient size (includes targeted exa ms where dose is matched to clinical indication); or iterative reconstruction.
[2022-11-09 10:39] LABS: HCT 29.1 % (36.0-46.0); HGB 7.8 g/dL (11.2-15.7); Lactate 1.7 mmol/L (0.6-1.4); MCH 19.6 pg (27.0-33.0); MCHC 26.8 % (32.0-36.0); MCV 73 fL (80-95); MPV 9.2 fL (8.0-11.0); Platelet Count 337 10^3/uL (130-400); RDW 18.1 % (11.7-14.6); RDW-SD 48.2 fL; WBC 16.02 10^3/uL (4.4-10.8)
[2022-11-09] MEDS: Normal Saline 250 ML 500 ML IV ×2 (10:51→16:04)
[2022-11-09 10:57] LABS: ALT 7 U/L (14-59); AST 18 U/L (15-37); Albumin 3.2 g/dL (3.4-5.0); Alkaline Phosphatase 84 U/L (46-116); BUN 20 mg/dL (7-18); Bilirubin, Total 0.6 mg/dL (0.2-1.0); CREATININE 1.1 mg/dL (0.55-1.02); Calcium 9.5 mg/dL (8.5-10.1); Chloride 95 mmol/L (98-107); Estimated GFR 56.81 (mL/min/1.73m2); Glucose 243 mg/dL (74-106); Lipase 29 U/L (16-77); Potassium 3.7 mmol/L (3.5-5.1); RBC 3.97 10^6/uL (3.93-5.22); Sodium 130 mmol/L (136-145); Total Protein 7.8 g/dL (6.4-8.2)
[2022-11-09 11:23] LABS: Bilirubin Negative (Negative); Blood Trace-intact (Negative); Clarity Sl Cloudy (Clear); Glucose >=1000 mg/dL (Negative); Ketones Negative (Negative); Leukocyte Esterase Large (Negative); Nitrite Negative (Negative); Specific Gravity <= 1.005 (1.005-1.025); Urobilinogen 0.2 EU/dL (Up TO 0.2)
[2022-11-09 11:31] LABS: Bacteria Rare HPF (Negative); C & S Indicated? Yes; Casts Negative LPF (Negative); Crystals Negative HPF (Negative); Epithelial Cells Few HPF (Negative); Mucus Negative (Negative); Other Cells Few Yeast (Negative); RBC 0-2 HPF (0-2); WBC >50 HPF (0-5)
[2022-11-09] MEDS: Omnipaque 350 MG/ML 500 ML BTL-Imaging package 100 ML IJ (11:42)
[2022-11-09] MEDS: Normal Saline - Diluent 50 ML VIAL IJ (11:45)
[2022-11-09] MEDS: CEFEPIME 2 GM in Normal Saline 100 ML IVPB (12:01)
[2022-11-09] MEDS: VANCOMYCIN/WATER (PEG) 1.75 GM/350 ML BAG IVPB (12:27)
[2022-11-09] MEDS: MORPHine 4 MG/ML SYR IVP (13:54)
[2022-11-09 14:51] LABS: Lactate 1.4 mmol/L (0.6-1.4)
[2022-11-09 15:13] LABS: Anion Gap 11.7 mmol/L (3-11); BUN 18 mg/dL (7-18); CO2 19.3 mmol/L (21.0-32.0); Calcium 7.7 mg/dL (8.5-10.1); Chloride 101 mmol/L (98-107); Glucose 143 mg/dL (74-106); Potassium 3.8 mmol/L (3.5-5.1); Sodium 132 mmol/L (136-145)
[2022-11-09 15:55] LABS: Source Nasal/Nares
--- NOTE | 2022-11-09 16:24 | HPE_ITS ---
Date of service: 11/09/22 Time of Service: 16:24 Assessment and Plan Assessment and plan (1) Sepsis: Status: Acute Assessment and plan: Patient presented with signs and symptoms of sepsis including mild hypertension tachycardia with clinical evidence of infection including emphysematous pyelonephritis with obstructive uropathy. Patient required emergent cystoscopy ureteroscopy and stent placement. Patient was placed on broad-spectrum antibiotics including Zosyn and vancomycin. Zosyn was given by the emergency department although the patient gave a history of penicillin allergy. Patient seems to have tolerated the Zosyn nevertheless I have switched her to meropenem which has less cross sensitivity. Furthermore meropenem will broaden her coverage until we get the final identification on her urine and blood cultures. Patient did have a mild lactic acidosis and I am repeating her VBG and her BMP. Continue with IV fluid hydration however given her significant microcytic anemia I will transfuse her 1 unit of packed red cells tonight. IV fluids can be held while the transfusion is running. She will be monitored overnight in the intensive care unit if she is hemodynamically stable overnight she will be transferred out to the medical/surgical floor for continued broad-spectrum ant ibiotics pending the results of her urine and blood cultures. Critical care time spent interviewing and examining the patient, reviewing studies, discussing case with patient's nurse and consulting physicians was 45 minutes (2) Emphysematous pyelonephritis: Status: Acute Assessment and plan: As above. (3) Hydronephrosis of right kidney: Status: Acute Assessment and plan: Status post cystoscopy ureteroscopy with right retrograde pyelogram and insertion of right ureteral stent. (4) Pyuria due to bacterial urinary tract infection: Status: Acute (5) Microcytic anemia: Status: Acute Assessment and plan: Patient's had progression of her microcytic anemia. Hemoglobin previously been 9.6 g in June 2022 and on admission her hemoglobin is down to 7.8 g with hematocrit of 29% and an MCV of 73. No evidence for occult bleeding however we will check stool for occult blood proceed with anemia work-up with checking her iron levels. Meanwhile she will be transfused 1 unit packed red cells tonight and monitor her H&H overnight. (6) IDDM (insulin dependent diabetes mellitus): Assessment and plan: Monitor blood sugars before meals and at bedtime, will treat with basal bolus insulin. (7) Gallstones: Status: Acute Assessment and plan: Asymptomatic gallstones. She had a work-up last fall with a negative HIDA scan. We will continue to monitor at this point. (8) Parkinsonism: Status: Acute Assessment and plan: Continue her Sinemet (9) History of stroke: Status: Acute Assessment and plan: Continue antiplatelet therapy with aspirin. I have increased her Prilosec to 40 mg daily given her anemia. (10) Hemiparesis affecting right side as late effect of cerebrovascular accident: Status: Acute (11) Bipolar 1 disorder: Status: Chronic Assessment and plan: Continue eating her previous dose of Seroquel and her trazodone. (12) Constipation: Status: Chronic Assessment and plan: Continue stool softeners and laxatives. Qualifiers: Constipation type: unspecified constipation type Qualified Code(s): K59.00 - Constipation, unspecified (13) DVT prophylaxis: Status: Acute Assessment and plan: Low-dose enoxaparin. If she has further worsening of her anemia we will discontinue in favor of SCDs. History of Present Illness History of Present Illness Chief Complaint: right sided abdominal pain; my whole right side hurts Narrative: As [id number] female with a history of colitis with history of multiple st rokes leaving her with right-sided hemiplegia who has type 2 diabetes mellitus requiring insulin, heart failure with preserved ejection fraction, remote history of staghorn calculus requiring nephrostomy and removal of her renal stone. Previous renal surgery was at [facility] in [facility]. She presents with severe right flank pain has been going on for the last 3 to 4 days along with subjective feeling of fever and chills. Evaluation emergency department revealed her to be septic. With mild hypertension systolic pressures in the low 90s to low 100s and tachycardic with a heart rate in the 110s. She was not hypoxic and she was not febrile on arrival. Diagnostic work-up performed by the emergency doctor included routine labs including CBC that showed her to be anemic with a white count of 16,000. Chemistry panel showed elevated BUN/creatinine of 21.1. Urinalysis showed pyuria with large amount leukocyte Estrace and greater than 50 white cells although rare bacteria. [id number] ultrasound performed by the ED doctor shows she has gallstones and although hydronephrosis was not noted on the [id number] ultrasound renal CT of the abdomen pelvis demonstrated unilateral right-sided hydronephrosis and hydroureter with a small 5 to 6 mm density in the right lower ureter within the pelvis suspicious for calculus. Ureter was dilated up to 18 mm above the transition point along with air gas in the upper collecting system within the renal pelvis and infundibulum. Dr. Alvarez was contacted and initially recommended that she be transferred to [facility] where she is known by the urology service at the [facility]. However he [facility] was close to admissions and [facility] was also close to admissions at which point it was decided to admit the patient to [facility] and take her to surgery for cystoscopy and ureteral stent placement. Patient was given a dose of Zosyn and vancomycin in the emergency department along with IV fluids and analgesics. Review of Systems Constitutional Constitutional: Reports as per HPI, Reports chills and Reports fever(s) Cardiovascular Cardiovascular: Denies chest pain, Denies rapid heart rate and Denies dyspnea Respiratory Respiratory: Denies dyspnea Gastrointestinal Gastrointestinal: Reports as per HPI and Reports abdominal pain (Right side) Genitourinary Genitourinary: Reports as per HPI Musculoskeletal Musculoskeletal: Reports as per HPI Integumentary/Breasts Skin/Breast: Reports system reviewed and no additional complaints, except as documented Neurologic Neurologic: Reports as per HPI Endocrine Endocrine: Reports system reviewed and no additional complaints, except as documented Hematologic/Lymphatic Hematologic/Lymphatic: Reports system reviewed and no additional complaints, except as documented PFSH All Active Problems (Updated 11/09/22 @ 20:05 by Jc Jack MD) Microcytic anemia (Acute) Sepsis (Acute) Emphysematous pyelonephritis (Acute) Pyuria due to bacterial urinary tract infection (Acute) Hydronephrosis of right kidney (Acute) Leukocytosis (Acute) Acute kidney injury (Acute) Gallstones (Acute) Arthritis of left shoulder region (Acute) Cough (Acute) Ileus (Acute) Tardive dyskinesia (Acute) Parkinsonism (Acute) History of stroke (Acute) Chronic chest pain (Chronic) Discharge planning issues (Acute) DVT prophylaxis (Acute) Constipation (Chronic) Bipolar 1 disorder (Chronic) Bipolar affective disorder, current episode depressed (Acute) rule out bipolar disorder reported by patient. Antiepileptics maybe preventing manic episode. Major depressive disorder, recurrent, severe with psychotic features (Acute) Current presentation is depression. She may have bipolar affective disorder. Ambulatory dysfunction (Chronic) Hemiparesis affecting right side as late effect of cerebrovascular accident (Acute) Dysphagia as late effect of cerebrovascular accident (CVA) (Chronic) Dysarthria as late effect of cerebrovascular accident (CVA) (Acute) Aphasia as late effect of cerebrovascular accident (Acute) Neck pain (Acute) Autoimmune disorder (Acute) Medical History (Updated 11/09/22 @ 20:05 by Jc Jack MD) DALTON (acute kidney injury) Anxiety Bipolar 1 disorder Cholelithiasis with acute cholecystitis s/p cholecystostomy and stone extraction in 2014 ([facility]), tube now pulled. 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 Complicated UTI (urinary tract infection) Diverticulosis Hemiparesis affecting right side as late effect of cerebrovascular accident (CVA) Hepatitis C History of multiple cerebrovascular accidents (CVAs) Hypertension Hypothyroidism IDDM (insulin dependent diabetes mellitus) Left rotator cuff tear Lumbar disc disease Nephrolithiasis Neurogenic bladder Obesity (BMI 30.0-34.9) Palliative care encounter Septic shock Staghorn calculus Static encephalopathy Steroid dependent Uterine mass likely a fibroid UTI (urinary tract infection) Surgical History Abnormal cholangiogram H/O cervical spine surgery H/O foot surgery H/O wrist surgery History of extraction of renal calculus 12/13/2018 - [facility] History of hip surgery right History of lumbosacral spine surgery S/P cystoscopy with ureteral stent placement [facility] 11/2018 Status post creation of urethral sling by suprapubic approach Family History Mother Stroke Social History Smoking/Tobacco Use Status: Former Tobacco Use Smoking risk assessment performed?: Yes Alcohol Intake: former Substance use type: former substance user and IV drugs Housing: detention Number of Children: 5 Education Level: elementary school Details: 6th grade, special ed, left school age 16. Current gender identity: female What is your relationship status?: Panel score (0-1 are the most socially isolated patients): 0 What type of physical activity do you participate in: none Do you feel safe at home: Yes Do you feel safe in your relationship?: Yes Meds Allergies and Home Medications Allergies Allergy/AdvReac Type Severity Reaction Status Date / Time naproxen [From Aleve] Allergy Unknown Itching Unverified 11/09/22 17:13 Penicillins Allergy Unknown Itching Unverified 11/09/22 17:13 propoxyphene Allergy Unknown Itching Unverified 11/09/22 17:13 Sulfa (Sulfonamide Allergy Unknown Itching Unverified 11/09/22 17:13 Antibiotics) methadone Allergy Verified 11/09/22 17:13 Home Medications Medication Instructions Recorded Confirmed Type docusate sodium 100 mg capsule 100 mg PO .BID, PRN 03/26/20 11/09/22 History (Colace) mirtazapine 15 mg tablet 15 mg PO QHS 03/26/20 11/09/22 History lamotrigine 25 mg tablet (Lamictal) 50 mg PO DAILY #1 tab 04/08/20 11/09/22 Rx polyethylene glycol 3350 17 17 g PO DAILY PRN 04/19/20 11/09/22 History gram/dose oral powder (Miralax) trazodone 50 mg tablet 25 mg PO BID 07/07/20 11/09/22 History bisacodyl 10 mg rectal suppository 10 mg NV ONCE PRN 08/17/20 11/09/22 History metformin 500 mg tablet 1,000 mg PO BID 12/20/20 11/09/22 History lactase 3,000 unit tablet (Lactaid) 9,000 unit PO TID 06/22/21 11/09/22 History quetiapine 100 mg tablet 50 mg PO DAILY 06/22/21 11/09/22 History acetaminophen 500 mg tablet 500 mg PO BID 06/01/22 11/09/22 History albuterol sulfate 90 mcg/actuation 2 inh inhalation TID 06/01/22 11/09/22 History aerosol inhaler (Ventolin HFA) aspirin 81 mg tablet,delayed 81 mg PO DAILY 06/01/22 11/09/22 History release bupropion HCl 150 mg 24 hr tablet, 150 mg PO QAM 06/01/22 11/09/22 History extended release cetirizine 10 mg tablet 10 mg PO QAM 06/01/22 11/09/22 History diclofenac sodium 1 % topical gel 1 applic topical BID 06/01/22 11/09/22 History dulaglutide 1.5 mg/0.5 mL 1 device subcut DIRECTED 06/01/22 11/09/22 History subcutaneous pen injector (Trulicity) empagliflozin 25 mg tablet 1 tab PO DAILY 06/01/22 11/09/22 History (Jardiance) fluticasone propionate 50 1 spray intranasal BID 06/01/22 11/09/22 History mcg/actuation nasal spray,suspension (Flonase Allergy Relief) gabapentin 600 mg tablet 2 tab PO BID 06/01/22 11/09/22 History linaclotide 145 mcg capsule 145 mcg PO DAILY 06/01/22 11/09/22 History magnesium oxide 800 mg PO DAILY 06/01/22 11/09/22 History quetiapine 100 mg tablet 100 mg PO BID 06/01/22 11/09/22 History sennosides 8.6 mg tablet 17.2 mg PO HS PRN 06/01/22 11/09/22 History simethicone 180 mg capsule 1 cap PO QID PRN 06/13/22 11/09/22 History B-complex with vitamin C 1 cap PO DAILY 11/09/22 11/09/22 History carbidopa 25 mg-levodopa 100 mg 1 tab PO QID 11/09/22 11/09/22 History tablet levothyroxine 100 mcg tablet 100 mcg PO DAILY 11/09/22 11/09/22 History multivitamin-ferrous 1 tab PO DAILY 11/09/22 11/09/22 History fumarate-folic acid 18 mg-400 mcg tablet (Centrum Complete) omeprazole 20 mg capsule,delayed 20 mg PO DAILY 11/09/22 11/09/22 History release [id number]-HV-cfgowvlphgr 5 10 ml PO Q4H PRN 11/09/22 11/09/22 History mg-10 mg-100 mg/5 mL oral liquid ropinirole 0.5 mg tablet 0.5 mg PO QHS 11/09/22 11/09/22 History Exam Narrative Exam Narrative: Fair complected redheaded middle-aged female lying on a gurney in the emergency department who is alert and oriented person place time circumstance who is in obvious discomfort from right flank pain. Face looks pale conjunctiva are pale. Full extraocular motions intact. No dysarthric speech. Neck is supple nontender no JVD normal carotid pulses no bruits Lungs are clear to auscultation Heart regular rate and rhythm with soft systolic ejection murmur over the apex no thrill heave gallop or rub. Abdomen soft but tender particular over the right mid and upper abdominal field along with radiating pain into the right flank. Bowel sounds are present but hypoactive. No palpable masses however the patient would really not allow me to adequately deeply palpate. Extremities without peripheral cyanosis or edema. Right hand and arm are contracted in a flexion contracture she has limited use of her right hand. Right leg is paraparetic and she has no use of her right foot or leg. She has normal range of motion of her left hand and arm and left leg. Results Labs 11/09/22 10:34 11/09/22 14:50 Labs: Laboratory Results - last 24 hr 11/09/22 11/09/22 11/09/22 10:34 10:34 10:34 WBC 16.02 H RBC 3.97 Hgb 7.8 L Hct 29.1 L MCV 73 L MCH 19.6 L MCHC 26.8 L RDW 18.1 H Plt Count 337 MPV 9.2 VBG Lactate 1.7 H Sodium 130 L Potassium 3.7 Chloride 95 L Carbon Dioxide 25.0 Anion Gap 10.0 BUN 20 H Creatinine 1.1 H Est GFR (CKD-EPI 2020) 56.81 Glucose 243 H Calcium 9.5 Total Bilirubin 0.6 AST 18 ALT 7 L Alkaline Phosphatase 84 Total Protein 7.8 Albumin 3.2 L Lipase 29 Urine Color Urine Clarity Urine pH Ur Specific Philo Urine Protein Urine Ketones Urine Blood Urine Nitrite Urine Bilirubin Urine Urobilinogen Ur Leukocyte Esterase Urine RBC Urine WBC Ur Epithelial Cells Urine Crystals Urine Bacteria Urine Casts Urine Mucus Urine Other Ur Culture Indicated? Urine Glucose COVID-19 Source 11/09/22 11/09/22 11/09/22 11:10 14:50 14:50 WBC RBC Hgb Hct MCV MCH MCHC RDW Plt Count MPV VBG Lactate 1.4 Sodium 132 L Potassium 3.8 Chloride 101 Carbon Dioxide 19.3 L Anion Gap 11.7 H BUN 18 Creatinine 1.0 Est GFR (CKD-EPI 2020) 63.70 Glucose 143 H Calcium 7.7 L Total Bilirubin AST ALT Alkaline Phosphatase Total Protein Albumin Lipase Urine Color Yellow Urine Clarity Sl Cloudy Urine pH 6.0 Ur Specific Philo <= 1.005 Urine Protein Negative Urine Ketones Negative Urine Blood Trace-intact H Urine Nitrite Negative Urine Bilirubin Negative Urine Urobilinogen 0.2 Ur Leukocyte Esterase Large H Urine RBC 0-2 Urine WBC >50 H Ur Epithelial Cells Few Urine Crystals Negative Urine Bacteria Rare Urine Casts Negative Urine Mucus Negative Urine Other Few Yeast Ur Culture Indicated? Yes Urine Glucose >=1000 H COVID-19 Source 11/09/22 15:52 WBC RBC Hgb Hct MCV MCH MCHC RDW Plt Count MPV VBG Lactate Sodium Potassium Chloride Carbon Dioxide Anion Gap BUN Creatinine Est GFR (CKD-EPI 2020) Glucose Calcium Total Bilirubin AST ALT Alkaline Phosphatase Total Protein Albumin Lipase Urine Color Urine Clarity Urine pH Ur Specific Philo Urine Protein Urine Ketones Urine Blood Urine Nitrite Urine Bilirubin Urine Urobilinogen Ur Leukocyte Esterase Urine RBC Urine WBC Ur Epithelial Cells Urine Crystals Urine Bacteria Urine Casts Urine Mucus Urine Other Ur Culture Indicated? Urine Glucose COVID-19 Source Nasal/Nares Last Vital Signs Temp 37.2 C 11/09/22 10:09 Pulse 103 H 11/09/22 16:01 Resp 16 11/09/22 11:10 BP 111/77 11/09/22 16:01 Pulse Ox 96 11/09/22 16:01 Time Spent Time spent with Patient: 40-54 minutes Time was spent: preparing to see the patient(eg.review tests), obtaining and/or reviewing separately otained hiistory, ordering medications,tests, procedures, referring, communicating with other health memory care program resident (Dr. Montoya from ED and Zahra Alberts from anesthesia), indepentently interpreting results, counseling the patient and care coordination
[2022-11-09 16:29] LABS: COVID-19 PCR Negative (Negative)
--- NOTE | 2022-11-09 16:32 | W.UROLOGYCON ---
Date of service: 11/09/22 Time of Service: 16:32 Assessment and Plan Assessment and plan (1) Emphysematous pyelonephritis: Status: Acute Assessment and plan: She certainly needs her kidney drained either by ureteral stent or nephrostomy tube. We have been unable to identify a tertiary care center that is able to accept the patient in transfer. She is certainly not an ideal anesthesia candidate at our facility, but given the lack of other options, we will go ahead and place a ureteral stent at this time. Our hospitalists have graciously excepted to admit her after this procedure. History of Present Illness History of Present Illness Chief Complaint: Emphysematous pyelonephritis Narrative: This is a 62-year-old woman who has a past history of staghorn stones. She has had surgical procedures over the at the [facility]. She is currently a resident at the [facility]. She was brought to our emergency department today with concerns for abdominal pain and a reported fever. The patient tells me she has wanted to sleep constantly for the last 2 or 3 days. She also admits to some right-sided abdominal pain that she thought was related to a gallstone. As part of her evaluation, she had a CT scan which showed a dilated right collecting system with air present within the collecting system. No specific stone is identified. In the past, she has not been felt to be a anesthesia candidate at our facility. We had attempted to arrange for a transfer to a tertiary care center for ureteral stenting and postoperative care. No such transfer could be arranged. He has significant medical comorbidities including parkinsonism, stroke, bipolar disorder and diabetes Review of Systems Narrative: c/o fevers and fatigue No vision change Hx Diabetes No shortness of breath, cough or hemoptysis Chronic chest pain No hepatitis, ulcers or jaundice Right hemiparesis No bleeding disorders No gout PFSH All Active Problems (Updated 11/09/22 @ 16:43 by Danny Alvarez MD) Emphysematous pyelonephritis (Acute) Pyuria due to bacterial urinary tract infection (Acute) Hydronephrosis of right kidney (Acute) Leukocytosis (Acute) Acute kidney injury (Acute) Gallstones (Acute) Arthritis of left shoulder region (Acute) Left rotator cuff tear (Acute) Fecal impaction in rectum (Acute) Cough (Acute) Ileus (Acute) Tardive dyskinesia (Acute) Parkinsonism (Acute) History of stroke (Acute) Right kidney stone (Acute) [employer] vasculitis (Chronic) UTI (urinary tract infection) (Acute) Chronic chest pain (Chronic) Discharge planning issues (Acute) DVT prophylaxis (Acute) Constipation (Acute) Bipolar 1 disorder (Chronic) Bipolar affective disorder, current episode depressed (Acute) rule out bipolar disorder reported by patient. Antiepileptics maybe preventing manic episode. Major depressive disorder, recurrent, severe with psychotic features (Acute) Current presentation is depression. She may have bipolar affective disorder. Ambulatory dysfunction (Chronic) Staghorn calculus (Acute) HCAP (healthcare-associated pneumonia) (Acute) Hemiparesis affecting right side as late effect of cerebrovascular accident (Acute) Weakness on left side of face (Acute) Dysphagia as late effect of cerebrovascular accident (CVA) (Chronic) Dysarthria as late effect of cerebrovascular accident (CVA) (Acute) Aphasia as late effect of cerebrovascular accident (Acute) Neck pain (Acute) Autoimmune disorder (Acute) Medical History (Updated 11/09/22 @ 16:43 by Danny Alvarez MD) DALTON (acute kidney injury) Anxiety Bipolar 1 disorder Cholelithiasis with acute cholecystitis s/p cholecystostomy and stone extraction in 2014 ([facility]), tube now pulled. 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 insufficiency Complicated UTI (urinary tract infection) Diverticulosis Hemiparesis affecting right side as late effect of cerebrovascular accident (CVA) Hepatitis C History of multiple cerebrovascular accidents (CVAs) Hypertension Hypothyroidism IDDM (insulin dependent diabetes mellitus) Lumbar disc disease Nephrolithiasis Neurogenic bladder Obesity (BMI 30.0-34.9) Palliative care encounter Septic shock Static encephalopathy Steroid dependent Uterine mass likely a fibroid UTI (urinary tract infection) Surgical History Abnormal cholangiogram H/O cervical spine surgery H/O foot surgery H/O wrist surgery History of extraction of renal calculus 12/13/2018 - [facility] History of hip surgery right History of lumbosacral spine surgery S/P cystoscopy with ureteral stent placement [facility] 11/2018 Status post creation of urethral sling by suprapubic approach Family History Mother Stroke Social History Smoking/Tobacco Use Status: Former Tobacco Use Smoking risk assessment performed?: Yes Alcohol Intake: former Substance use type: former substance user and IV drugs Housing: snf Number of Children: 5 Education Level: elementary school Details: 6th grade, special ed, left school age 16. Current gender identity: female What is your relationship status?: Panel score (0-1 are the most socially isolated patients): 0 What type of physical activity do you participate in: none Do you feel safe at home: Yes Do you feel safe in your relationship?: Yes Exam Narrative Exam Narrative: I reviewed her CT scan on the PACS system. There is distention of the renal pelvis and ureter with no obvious obstructing ureteral stone. There is air in the collecting system consistent with emphysematous pyelonephritis Const General: frail appearing and ill appearing GI Palpation: soft and no guarding Neuro General: patient alert and patient awake Results Last Vital Signs Temp 37.2 C 11/09/22 10:09 Pulse 103 H 11/09/22 16:01 Resp 16 11/09/22 11:10 BP 111/77 11/09/22 16:01 Pulse Ox 96 11/09/22 16:01 Labs 11/09/22 10:34 11/09/22 14:50 Labs: Laboratory Results - last 24 hr 11/09/22 11/09/22 11/09/22 10:34 10:34 10:34 WBC 16.02 H RBC 3.97 Hgb 7.8 L Hct 29.1 L MCV 73 L MCH 19.6 L MCHC 26.8 L RDW 18.1 H Plt Count 337 MPV 9.2 VBG Lactate 1.7 H Sodium 130 L Potassium 3.7 Chloride 95 L Carbon Dioxide 25.0 Anion Gap 10.0 BUN 20 H Creatinine 1.1 H Est GFR (CKD-EPI 2020) 56.81 Glucose 243 H Calcium 9.5 Total Bilirubin 0.6 AST 18 ALT 7 L Alkaline Phosphatase 84 Total Protein 7.8 Albumin 3.2 L Lipase 29 Urine Color Urine Clarity Urine pH Ur Specific [place] Urine Protein Urine Ketones Urine Blood Urine Nitrite Urine Bilirubin Urine Urobilinogen Ur Leukocyte Esterase Urine RBC Urine WBC Ur Epithelial Cells Urine Crystals Urine Bacteria Urine Casts Urine Mucus Urine Other Ur Culture Indicated? Urine Glucose COVID-19 Source 11/09/22 11/09/22 11/09/22 11:10 14:50 14:50 WBC RBC Hgb Hct MCV MCH MCHC RDW Plt Count MPV VBG Lactate 1.4 Sodium 132 L Potassium 3.8 Chloride 101 Carbon Dioxide 19.3 L Anion Gap 11.7 H BUN 18 Creatinine 1.0 Est GFR (CKD-EPI 2020) 63.70 Glucose 143 H Calcium 7.7 L Total Bilirubin AST ALT Alkaline Phosphatase Total Protein Albumin Lipase Urine Color Yellow Urine Clarity Sl Cloudy Urine pH 6.0 Ur Specific [place] <= 1.005 Urine Protein Negative Urine Ketones Negative Urine Blood Trace-intact H Urine Nitrite Negative Urine Bilirubin Negative Urine Urobilinogen 0.2 Ur Leukocyte Esterase Large H Urine RBC 0-2 Urine WBC >50 H Ur Epithelial Cells Few Urine Crystals Negative Urine Bacteria Rare Urine Casts Negative Urine Mucus Negative Urine Other Few Yeast Ur Culture Indicated? Yes Urine Glucose >=1000 H COVID-19 Source 11/09/22 15:52 WBC RBC Hgb Hct MCV MCH MCHC RDW Plt Count MPV VBG Lactate Sodium Potassium Chloride Carbon Dioxide Anion Gap BUN Creatinine Est GFR (CKD-EPI 2020) Glucose Calcium Total Bilirubin AST ALT Alkaline Phosphatase Total Protein Albumin Lipase Urine Color Urine Clarity Urine pH Ur Specific [place] Urine Protein Urine Ketones Urine Blood Urine Nitrite Urine Bilirubin Urine Urobilinogen Ur Leukocyte Esterase Urine RBC Urine WBC Ur Epithelial Cells Urine Crystals Urine Bacteria Urine Casts Urine Mucus Urine Other Ur Culture Indicated? Urine Glucose COVID-19 Source Nasal/Nares
--- NOTE | 2022-11-09 16:49 | ANES.PREOP_ITS ---
General Info Date of Service Date Performed: 11/09/22 Height: 5 ft 5 in Weight: 81.647 kg Body Mass Index (BMI): 29.9 Surgical Procedure: Operation Date: 11/09/22 16:50 Proposed Procedure Side Surgeon p Cystoscopy with Stent Insertion Danny Alvarez MD Meds Allergies and Home Medications Allergies Allergy/AdvReac Type Severity Reaction Status Date / Time naproxen [From Aleve] Allergy Unknown Itching Unverified 11/09/22 10:14 Penicillins Allergy Unknown Itching Unverified 11/09/22 10:14 propoxyphene Allergy Unknown Itching Unverified 11/09/22 10:14 Sulfa (Sulfonamide Allergy Unknown Itching Unverified 11/09/22 10:14 Antibiotics) methadone Allergy Verified 11/09/22 10:14 Home Medication Medication Instructions Recorded docusate sodium 100 mg capsule 100 mg PO .BID, PRN 03/26/20 (Colace) mirtazapine 15 mg tablet 15 mg PO QHS 03/26/20 lamotrigine 25 mg tablet (Lamictal) 50 mg PO DAILY #1 tab 04/08/20 polyethylene glycol 3350 17 17 g PO DAILY PRN 04/19/20 gram/dose oral powder (Miralax) trazodone 50 mg tablet 25 mg PO BID 07/07/20 bisacodyl 10 mg rectal suppository 10 mg MT ONCE PRN 08/17/20 metformin 500 mg tablet 1,000 mg PO BID 12/20/20 lactase 3,000 unit tablet (Lactaid) 9,000 unit PO TID 06/22/21 quetiapine 100 mg tablet 50 mg PO DAILY 06/22/21 acetaminophen 500 mg tablet 500 mg PO BID 06/01/22 albuterol sulfate 90 mcg/actuation 2 inh inhalation TID 06/01/22 aerosol inhaler (Ventolin HFA) aspirin 81 mg tablet,delayed 81 mg PO DAILY 06/01/22 release bupropion HCl 150 mg 24 hr tablet, 150 mg PO QAM 06/01/22 extended release cetirizine 10 mg tablet 10 mg PO QAM 06/01/22 diclofenac sodium 1 % topical gel 1 applic topical BID 06/01/22 dulaglutide 1.5 mg/0.5 mL 1 device subcut DIRECTED 06/01/22 subcutaneous pen injector (Trulicity) empagliflozin 25 mg tablet 1 tab PO DAILY 06/01/22 (Jardiance) fluticasone propionate 50 1 spray intranasal BID 06/01/22 mcg/actuation nasal spray,suspension (Flonase Allergy Relief) gabapentin 600 mg tablet 2 tab PO BID 06/01/22 linaclotide 145 mcg capsule 145 mcg PO DAILY 06/01/22 magnesium oxide 800 mg PO DAILY 06/01/22 quetiapine 100 mg tablet 100 mg PO BID 06/01/22 sennosides 8.6 mg tablet 17.2 mg PO HS PRN 06/01/22 simethicone 180 mg capsule 1 cap PO QID PRN 06/13/22 B-complex with vitamin C 1 cap PO DAILY 11/09/22 carbidopa 25 mg-levodopa 100 mg 1 tab PO QID 11/09/22 tablet levothyroxine 100 mcg tablet 100 mcg PO DAILY 11/09/22 multivitamin-ferrous 1 tab PO DAILY 11/09/22 fumarate-folic acid 18 mg-400 mcg tablet (Centrum Complete) omeprazole 20 mg capsule,delayed 20 mg PO DAILY 11/09/22 release blhdehuqlfenb-HK-ejfiajgftyd 5 10 ml PO Q4H PRN 11/09/22 mg-10 mg-100 mg/5 mL oral liquid ropinirole 0.5 mg tablet 0.5 mg PO QHS 11/09/22 Current Visit Medications: Current Medications Generic Name Dose Route Start Last Admin Trade Name Freq PRN Reason Stop Dose Admin Ringer's Solution 1,000 mls @ 150 mls/hr 11/09/22 16:30 IV INFUSION HANSA Iohexol 100 ml 11/09/22 11:45 11/09/22 11:42 Omnipaque 350 Mg/Ml 500 Ml Btl-Imaging Package IJ 12/09/22 23:59 100 ml DIRECTED HANSA Administration Sodium Chloride 50 ml 11/09/22 11:45 11/09/22 11:45 Normal Saline - Diluent 50 Ml Vial IJ 50 ml .FOR DI USE HANSA Administration PFSH Active Problems Active Problems: Problem Status Onset Code Pyuria due to bacterial urinary tract infection N39.0 Hydronephrosis of right kidney N13.30 Leukocytosis D72.829 Acute kidney injury N17.9 Gallstones K80.20 Arthritis of left shoulder region M19.012 Left rotator cuff tear M75.102 Fecal impaction in rectum K56.41 Cough R05 Ileus K56.7 Tardive dyskinesia G24.01 Parkinsonism G20 History of stroke Z86.73 Right kidney stone N20.0 [employer] vasculitis I77.6 UTI (urinary tract infection) N39.0 Chronic chest pain R07.9, G89.29 Discharge planning issues Z02.9 DVT prophylaxis Z29.9 Hypotension I95.9 Constipation K59.00 Bipolar 1 disorder F31.9 Acute pancreatitis K85.90 Bipolar affective disorder, current episode depressed F31.30 Major depressive disorder, recurrent, severe with psychotic features F33.3 Ambulatory dysfunction R26.2 Staghorn calculus N20.0 HCAP (healthcare-associated pneumonia) J18.9 Hemiparesis affecting right side as late effect of cerebrovascular accident I69.351 Weakness on left side of face R29.810 Dysphagia as late effect of cerebrovascular accident (CVA) I69.391 Dysarthria as late effect of cerebrovascular accident (CVA) I69.322 Aphasia as late effect of cerebrovascular accident I69.320 Neck pain M54.2 Autoimmune disorder M35.9 Medical History Medical History (Updated 11/09/22 @ 16:43 by Danny Alvarez MD) DALTON (acute kidney injury) Anxiety Bipolar 1 disorder Cholelithiasis with acute cholecystitis s/p cholecystostomy and stone extraction in 2014 ([facility]), tube now pulled. 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 insufficiency Complicated UTI (urinary tract infection) Diverticulosis Hemiparesis affecting right side as late effect of cerebrovascular accident (CVA) Hepatitis C History of multiple cerebrovascular accidents (CVAs) Hypertension Hypothyroidism IDDM (insulin dependent diabetes mellitus) Lumbar disc disease Nephrolithiasis Neurogenic bladder Obesity (BMI 30.0-34.9) Palliative care encounter Septic shock Static encephalopathy Steroid dependent Uterine mass likely a fibroid UTI (urinary tract infection) Surgical History Surgical History Abnormal cholangiogram H/O cervical spine surgery H/O foot surgery H/O wrist surgery History of extraction of renal calculus 12/13/2018 - [facility] History of hip surgery right History of lumbosacral spine surgery S/P cystoscopy with ureteral stent placement [facility] 11/2018 Status post creation of urethral sling by suprapubic approach Tobacco Smoking/Tobacco Use Status: Former Tobacco Use Alcohol Alcohol Intake: former Substance Use Substance use type: former substance user and IV drugs Vital Signs and Lab Results Vital Signs Most Recent Vital Signs in EMR: Most Recent Vital Signs Temp Pulse Resp BP Pulse Ox 37.3 C 112 H 16 117/80 94 11/09/22 16:43 11/09/22 16:31 11/09/22 11:10 11/09/22 16:31 11/09/22 16:31 Lab Results 11/09/22 10:34 11/09/22 14:50 Blood Type / Crossmatch: No Data to Display Complete Blood Count: White Blood Count 16.02 10^3/uL (4.4-10.8) H 11/09/22 10:34 Red Blood Count 3.97 10^6/uL (3.93-5.22) 11/09/22 10:34 Hemoglobin 7.8 g/dL (11.2-15.7) L 11/09/22 10:34 Hematocrit 29.1 % (36.0-46.0) L 11/09/22 10:34 Platelet Count 337 10^3/uL (130-400) 11/09/22 10:34 Venous Blood Lactate 1.4 mmol/L (0.6-1.4) 11/09/22 14:50 Complete Metabolic Panel: Sodium 132 mmol/L (136-145) L 11/09/22 14:50 Potassium 3.8 mmol/L (3.5-5.1) 11/09/22 14:50 Chloride 101 mmol/L (98-107) 11/09/22 14:50 Carbon Dioxide 19.3 mmol/L (21.0-32.0) L 11/09/22 14:50 BUN 18 mg/dL (7-18) 11/09/22 14:50 Creatinine 1.0 mg/dL (0.55-1.02) 11/09/22 14:50 Est GFR (CKD-EPI 2020) 63.70 (mL/min/1.73m2) 11/09/22 14:50 Calcium 7.7 mg/dL (8.5-10.1) L 11/09/22 14:50 Albumin 3.2 g/dL (3.4-5.0) L 11/09/22 10:34 Glucose 143 mg/dL (74-106) H 11/09/22 14:50 Liver Function Panel: Alanine Aminotransferase (ALT/SGPT) 7 U/L (14-59) L 11/09/22 10 :34 Aspartate Amino Transf (AST/SGOT) 18 U/L (15-37) 11/09/22 10:34 Coagulation Panel: No Data to Display Cardiac Panel: No Data to Display Arterial Blood Gas: No Data to Display Venous Blood Gas: No Data to Display Pancreas Panel: Lipase 29 U/L (16-77) 11/09/22 10:34 Thyroid Panel: No Data to Display Infectious Disease: Coronavirus (COVID-19)(PCR) Negative (Negative) 11/09/22 15:52 Coronavirus 2019 Source Nasal/Nares 11/09/22 15:52 Blood Cultures: No Data to Display Toxicology Panel: No Data to Display Imaging and Studies Imaging and Studies Study information below may be from another EMR and interpreted by another provider. Please see original notes in EMR for more complete details. EKG Summary: 06/01/2022: Conclusion Sinus rhythm...normal P axis, V-rate 60- 99 Low voltage, precordial leads...precordial leads <1.0mV. Sinus. Normal axis. No STEMI. I have reviewed and interpreted ECG and agree with software generated interpretation. Echocardiogram Summary: 06/09/2020: Conclusion This is a technically limited study Left Ventricle : The left ventricle is normal size. The left ventricular systolic function is normal. The left ventricular ejection fraction is within t he normal range. There is normal left ventricular wall thickness. There is normal LV segmental wall motion. Transmitral Doppler flow pattern suggests impaired LV relaxation. LVEF is 55%. Right Ventricle : Right ventricle is not well visualized. Right ventricular systolic function could not be assessed. Atria : The left atrium size is normal. Right atrium is not well visualized. Valves: There are no hemodynamically significant valvular lesions. Great Vessels : The aortic root is normal in size. The ascending aorta is normal in size. IVC is normal in size and collapses >50% with inspiration. Anesthesia Assessment and Plan Anesthesia History Personal History: No History of Anesthesia Complications Family History: No Family History of Anesthesia Complications Exercise Tolerance Exercise Tolerance: Metabolic Equivalents<4 Cardiac & Pulmonary Exam Cardiac Exam: Normal S1/S2 Heart Sounds Pulmonary Exam: Clear Bilateral Breath Sounds Implantable Cardiac Device Does patient have a Pacemaker or an ICD?: No Airway Exam Known Difficult Airway: No Mallampati Class: 4 Mouth Opening: Narrow (< 3cm) Thyromental Distance: Greater than 3 cm Neck Range of Motion: Limited ROM Neck Circumference: Thick Teeth Condition: Edentulous ASA Classification ASA Score: ASA 3 Emergency Case?: Yes NPO Status NPO Status: NPO Clears >2 hours, Solids >8 hours Anesthesia Plan Resuscitation Status: Full Code Anesthesia Technique: General Anesthesia Airway Planned: Natural Airway Monitors Used: Standard Monitors Preoperative Comments:: Previous intubation at [facility] without incident, tolerated well.
--- NOTE | 2022-11-09 16:59 | DI.RAD_ITS ---
Exam(s) XR RETROGRADE IN OR EXAM: XR RETROGRADE IN OR CLINICAL HISTORY: Emphysematous pyelonephritis. TECHNIQUE: Fluoroscopy was provided for Dr. Alvarez for guidance with performing retrograde procedure. COMPARISON: No exams were available for comparison FINDINGS: Please see procedure note for details. Fluoro time: 10.5 seconds RADIATION DOSE DELIVERED: Kar=1.9 mGy
[2022-11-09] MEDS: Lactated Ringers 1,000 ML 150 ML IV (17:32)
[2022-11-09] MEDS: Lidocaine 2% Jelly 6 ML SYR ×2 (18:00→21:31)
[2022-11-09] MEDS: Omnipaque 300 MG/ML 50 ML BTL (18:00)
--- NOTE | 2022-11-09 18:16 | ROE_ITS ---
Date of service: 11/09/22 Time of Service: 18:16 Operative Note Operative Note PRE-OP DIAGNOSIS: Emphysematous pyelonephritis POST-OP DIAGNOSIS: same PROCEDURE: cystoscopy, right retrograde pyelogram, insert right ureteral stent SURGEON: Danny Alvarez ANESTHESIA TYPE: General:No Airway Refer to Anesthesia Record ESTIMATED BLOOD LOSS: 5 PATHOLOGY: none sent COMPLICATIONS: None Patient was transported to: ICU Patient's condition: critical Implants: 7 [place] by 22 to 30 cm right ureteral stent Indications: This is a 62-year-old woman who has a history of kidney stones. On one occasion, she had a staghorn stone. Her surgical treatments have been over at the [facility]. She presented to our emergency department today with abdominal pain. She is a resident of a long-term care facility and the staff reports that she had been febrile. On evaluation, she had right hydronephrosis and hydroureter with air in the collecting system on the right side. She presents for stent placement. Findings: Purulent drainage from right kidney Procedure Description: She was brought to the operating room on 11/09/2022. After successful induction of general anesthesia without intubation, she was placed in the modified l ithotomy position. Her right leg could not tolerate placement in dorsal lithotomy. Her genitalia was prepped and draped. A 22 [place] rigid cystoscope was passed through the urethra into the bladder. The right ureteral orifice was visualized. I was unable to pass a 5 [place] access catheter up the ureter, but I was able to engage the guidewire into the right ureteral orifice and advanced the wire. I then passed a an access catheter over the wire and injected Omnipaque through the access catheter under fluoroscopic guidance. The dilated proximal ureter and collecting system were then visualized. I replaced the wire and then passed a 7 [place] variable length stent over the wire. The proximal end of the stent was curled in the renal pelvis and the distal end was curled in the bladder. The positioning of the stent was confirmed both fluoroscopically and cystoscopically. A large amount of purulent material drained from the kidney once the stent was in place. The cystoscope was withdrawn and a new 16 [place] Martinez catheter was passed back through the urethra into the bladder. The catheter balloon was inflated with 10 cc of sterile water. The catheter was hooked to gravity drainage. The patient was then transferred to the intensive care unit.
[2022-11-09] MEDS: QUEtiapine 100 MG TAB PO ×2 (19:31→20:27)
[2022-11-09] MEDS: Gabapentin 600 MG TAB 1200 MG PO (19:33)
[2022-11-09] MEDS: traZODone 50 MG TAB 25 MG PO (19:34)
[2022-11-09] MEDS: Carbidopa 25/Levodopa 100 TAB PO (19:34)
[2022-11-09] MEDS: Docusate Sodium 100 MG CAP PO (19:35)
[2022-11-09] MEDS: Enoxaparin 40 MG/0.4 ML SYR SC (19:36)
[2022-11-09 20:21] LABS: HCT 31.8 % (36.0-46.0); HGB 8.3 g/dL (11.2-15.7)
[2022-11-09 20:24] LABS: BE (Venous) -6 mmol/L (-2-3); HCO3 (Venous) 21 mmol/L (23-28); O2 Sat (Venous) 83 %; TCO2 (Venous) 21 mmol/L (24-29); pCO2 (Venous) 47 mmHg (41-51); pH (Venous) 7.26 (7.31-7.41); pO2 (Venous) 55 mmHg
[2022-11-09 20:27] LABS: Lactate 1.2 mmol/L (0.6-1.4)
[2022-11-09] MEDS: MEROPENEM 1 GM in Normal Saline 100 ML IVPB (20:27)
[2022-11-09] MEDS: Normal Saline Flush 10 ML SYR (20:27)
[2022-11-09] MEDS: Omeprazole 20 MG CAPCR 40 MG PO (20:27)
[2022-11-09] MEDS: Acetaminophen 325 MG TAB PO (20:29)
[2022-11-09] MEDS: rOPINIRole 0.5 MG TAB PO (20:38)
[2022-11-09] MEDS: Mirtazapine 15 MG TAB PO (20:38)
[2022-11-09 20:39] LABS: Anion Gap 11.8 mmol/L (3-11); BUN 20 mg/dL (7-18); CO2 22.2 mmol/L (21.0-32.0); Calcium 9.3 mg/dL (8.5-10.1); Chloride 102 mmol/L (98-107); Glucose 168 mg/dL (74-106); Potassium 3.6 mmol/L (3.5-5.1); Sodium 136 mmol/L (136-145)
[2022-11-09] MEDS: Fluticasone NASAL SPRAY 16 GM BTL NS (21:26)
[2022-11-09 21:27] LABS: Lab Add On Test DONE
[2022-11-09] MEDS: VANCOMYCIN 1,250 MG in Normal Saline 250 ML 166.667 MG IVPB (22:18)
[2022-11-09] MEDS: Insulin Aspart 300 UNITS/3 ML PEN SC (22:20)
[2022-11-09 22:27] LABS: C-Reactive Protein > 25.00 mg/dL (0.0-0.3)
[2022-11-10] VITALS (11 sets, daily range): BP systolic 93–107; BP diastolic 52–67; PULSE 55–101; RESP 8–20; TEMP 36.5–37.4; O2SAT 94–98
--- NOTE | 2022-11-10 | DI.RAD_ITS ---
Exam(s) XR ABDOMEN FLAT PLATE EXAM: Supine abdomen CLINICAL HISTORY: abdominal pain; distension. COMPARISON: CT CT ABDOMEN PELVIS W from 11/09/2022 TECHNIQUE: Supine views of the abdomen performed. Portable exam. FINDINGS: There is a right renal stent now in place. Previously noted bladder catheter not seen. Diffuse mild small and large bowel gaseous distension. No findings to suggest obstruction. Lung bases not included on field of view IMPRESSION: Diffuse scattered gaseous distension of small and large bowel without evidence of obstruction. Right ureteral stent. DATA REPOSITORY: RADIATION DOSE DELIVERED:
[2022-11-10] MEDS: VANCOMYCIN 1,250 MG in Normal Saline 250 ML 166.667 MG IVPB (00:59)
[2022-11-10] MEDS: Lactated Ringers 1,000 ML 150 ML IV ×4 (03:26→23:06)
[2022-11-10] MEDS: MEROPENEM 1 GM in Normal Saline 100 ML IVPB ×3 (03:27→20:03)
[2022-11-10 06:29] LABS: Abs Immature Grans 0.05 10^3/uL (0.0-0.06); Absolute Basophil Count 0.03 10^3/uL (0.0-0.2); Absolute Lymphocyte Count 0.96 10^3/uL (1.2-3.4); Basophils % 0.3; Eosinophils % 0.5; HCT 28.9 % (36.0-46.0); Immature Grans % 0.5; Lymphocytes % 8.7; MCH 20.3 pg (27.0-33.0); MCHC 27.7 % (32.0-36.0); MCV 73 fL (80-95); MPV 9.7 fL (8.0-11.0); Monocytes % 10.8; Neutrophils % 79.2; Platelet Count 309 10^3/uL (130-400); RBC 3.94 10^6/uL (3.93-5.22); RDW 17.7 % (11.7-14.6); RDW-SD 47.6 fL; WBC 11.07 10^3/uL (4.4-10.8)
[2022-11-10 06:48] LABS: Absolute Eosinophil Count 0.06 10^3/uL (0.0-0.7); Absolute Neutrophil Count 8.77 10^3/uL (1.2-6.7)
[2022-11-10] MEDS: Levothyroxine 100 MCG TAB PO (06:54)
--- NOTE | 2022-11-10 06:55 | PUCC_ITS ---
General Date of Service Date of service: 11/10/22 Time of Service: 06:55 Recommendations I&O: Intake & Output 11/07/22 11/08/22 11/09/22 11/10/22 23:59 23:59 23:59 23:59 Intake Total 3400 / 3500 613 / 613 Output Total 1025 / 1025 Balance 3400 / 3150 -412 / -412 Weight 81.647 kg 79 kg Date of Last Bowel Movement: 11/08/22 Code Status: Resuscitation Status DNR/DNI Most Recent VS/Results Last Vital Signs Temp 37.1 C 11/10/22 04:00 Pulse 101 H 11/10/22 00:00 Resp 13 11/10/22 00:00 BP 93/52 L 11/10/22 00:00 Pulse Ox 95 11/10/22 00:00 Laboratory Results - last 24 hr 11/09/22 11/09/22 11/09/22 10:34 10:34 10:34 WBC 16.02 H RBC 3.97 Hgb 7.8 L Hct 29.1 L MCV 73 L MCH 19.6 L MCHC 26.8 L RDW 18.1 H Plt Count 337 MPV 9.2 VBG pH VBG pCO2 VBG pO2 VBG HCO3 VBG Total CO2 VBG O2 Saturation VBG Base Excess VBG Lactate 1.7 H Sodium 130 L Potassium 3.7 Chloride 95 L Carbon Dioxide 25.0 Anion Gap 10.0 BUN 20 H Creatinine 1.1 H Est GFR (CKD-EPI 2020) 56.81 Glucose 243 H Calcium 9.5 Iron TIBC Ferritin Total Bilirubin 0.6 AST 18 ALT 7 L Alkaline Phosphatase 84 C-Reactive Protein Total Protein 7.8 Albumin 3.2 L Lipase 29 Procalcitonin Urine Color Urine Clarity Urine pH Ur Specific [place] Urine Protein Urine Ketones Urine Blood Urine Nitrite Urine Bilirubin Urine Urobilinogen Ur Leukocyte Esterase Urine RBC Urine WBC Ur Epithelial Cells Urine Crystals Urine Bacteria Urine Casts Urine Mucus Urine Other Ur Culture Indicated? Urine Glucose COVID-19 Source SARS-CoV-2 (PCR) Add-On Test Request Patient ABO/Rh Antibody Screen Crossmatch 11/09/22 11/09/22 11/09/22 11:10 14:50 14:50 WBC RBC Hgb Hct MCV MCH MCHC RDW Plt Count MPV VBG pH VBG pCO2 VBG pO2 VBG HCO3 VBG Total CO2 VBG O2 Saturation VBG Base Excess VBG Lactate 1.4 Sodium 132 L Potassium 3.8 Chloride 101 Carbon Dioxide 19.3 L Anion Gap 11.7 H BUN 18 Creatinine 1.0 Est GFR (CKD-EPI 2020) 63.70 Glucose 143 H Calcium 7.7 L Iron TIBC Ferritin Total Bilirubin AST ALT Alkaline Phosphatase C-Reactive Protein Total Protein Albumin Lipase Procalcitonin Urine Color Yellow Urine Clarity Sl Cloudy Urine pH 6.0 Ur Specific [place] <= 1.005 Urine Protein Negative Urine Ketones Negative Urine Blood Trace-intact H Urine Nitrite Negative Urine Bilirubin Negative Urine Urobilinogen 0.2 Ur Leukocyte Esterase Large H Urine RBC 0-2 Urine WBC >50 H Ur Epithelial Cells Few Urine Crystals Negative Urine Bacteria Rare Urine Casts Negative Urine Mucus Negative Urine Other Few Yeast Ur Culture Indicated? Yes Urine Glucose >=1000 H COVID-19 Source SARS-CoV-2 (PCR) Add-On Test Request Patient ABO/Rh Antibody Screen Crossmatch 11/09/22 11/09/22 11/09/22 15:52 20:00 20:05 WBC RBC Hgb Hct MCV MCH MCHC RDW Plt Count MPV VBG pH VBG pCO2 VBG pO2 VBG HCO3 VBG Total CO2 VBG O2 Saturation VBG Base Excess VBG Lactate Sodium Potassium Chloride Carbon Dioxide Anion Gap BUN Creatinine Est GFR (CKD-EPI 2020) Glucose Calcium Iron TIBC Ferritin Total Bilirubin AST ALT Alkaline Phosphatase C-Reactive Protein Total Protein Albumin Lipase Procalcitonin 2.0 Urine Color Urine Clarity Urine pH Ur Specific [place] Urine Protein Urine Ketones Urine Blood Urine Nitrite Urine Bilirubin Urine Urobilinogen Ur Leukocyte Esterase Urine RBC Urine WBC Ur Epithelial Cells Urine Crystals Urine Bacteria Urine Casts Urine Mucus Urine Other Ur Culture Indicated? Urine Glucose COVID-19 Source Nasal/Nares SARS-CoV-2 (PCR) Negative Add-On Test Request DONE Patient ABO/Rh Antibody Screen Crossmatch 11/09/22 11/09/22 11/09/22 20:05 20:10 20:10 WBC RBC Hgb Hct MCV MCH MCHC RDW Plt Count MPV VBG pH VBG pCO2 VBG pO2 VBG HCO3 VBG Total CO2 VBG O2 Saturation VBG Base Excess VBG Lactate Sodium 136 Potassium 3.6 Chloride 102 Carbon Dioxide 22.2 Anion Gap 11.8 H BUN 20 H Creatinine 1.0 Est GFR (CKD-EPI 2020) 63.70 Glucose 168 H Calcium 9.3 Iron TIBC Ferritin Total Bilirubin AST ALT Alkaline Phosphatase C-Reactive Protein > 25.00 H Total Protein Albumin Lipase Procalcitonin Urine Color Urine Clarity Urine pH Ur Specific [place] Urine Protein Urine Ketones Urine Blood Urine Nitrite Urine Bilirubin Urine Urobilinogen Ur Leukocyte Esterase Urine RBC Urine WBC Ur Epithelial Cells Urine Crystals Urine Bacteria Urine Casts Urine Mucus Urine Other Ur Culture Indicated? Urine Glucose COVID-19 Source SARS-CoV-2 (PCR) Add-On Test Request Patient ABO/Rh A Positive Antibody Screen NEGATIVE Crossmatch See Detail 11/09/22 11/09/22 11/09/22 20:10 20:10 20:10 WBC RBC Hgb 8.3 L Hct 31.8 L MCV MCH MCHC RDW Plt Count MPV VBG pH 7.26 L VBG pCO2 47 VBG pO2 55 VBG HCO3 21 L VBG Total CO2 21 L VBG O2 Saturation 83 VBG Base Excess -6 L VBG Lactate 1.2 Sodium Potassium Chloride Carbon Dioxide Anion Gap BUN Creatinine Est GFR (CKD-EPI 2020) Glucose Calcium Iron TIBC Ferritin Total Bilirubin AST ALT Alkaline Phosphatase C-Reactive Protein Total Protein Albumin Lipase Procalcitonin Urine Color Urine Clarity Urine pH Ur Specific [place] Urine Protein Urine Ketones Urine Blood Urine Nitrite Urine Bilirubin Urine Urobilinogen Ur Leukocyte Esterase Urine RBC Urine WBC Ur Epithelial Cells Urine Crystals Urine Bacteria Urine Casts Urine Mucus Urine Other Ur Culture Indicated? Urine Glucose COVID-19 Source SARS-CoV-2 (PCR) Add-On Test Request Patient ABO/Rh Antibody Screen Crossmatch 11/09/22 11/09/22 11/09/22 21:32 21:32 Unknown WBC RBC Hgb Hct MCV MCH MCHC RDW Plt Count MPV VBG pH VBG pCO2 VBG pO2 VBG HCO3 VBG Total CO2 VBG O2 Saturation VBG Base Excess VBG Lactate Sodium Potassium Chloride Carbon Dioxide Anion Gap BUN Creatinine Est GFR (CKD-EPI 2020) Glucose Calcium Iron Cancelled TIBC Cancelled Ferritin Cancelled Total Bilirubin AST ALT Alkaline Phosphatase C-Reactive Protein Total Protein Albumin Lipase Procalcitonin Urine Color Urine Clarity Urine pH Ur Specific [place] Urine Protein Urine Ketones Urine Blood Urine Nitrite Urine Bilirubin Urine Urobilinogen Ur Leukocyte Esterase Urine RBC Urine WBC Ur Epithelial Cells Urine Crystals Urine Bacteria Urine Casts Urine Mucus Urine Other Ur Culture Indicated? Urine Glucose COVID-19 Source SARS-CoV-2 (PCR) Add-On Test Request TNP Patient ABO/Rh Antibody Screen Crossmatch
[2022-11-10 07:02] LABS: ALT 15 U/L (14-59); AST 13 U/L (15-37); Albumin 2.5 g/dL (3.4-5.0); Alkaline Phosphatase 83 U/L (46-116); Anion Gap 11.5 mmol/L (3-11); BUN 18 mg/dL (7-18); Bilirubin, Total 0.8 mg/dL (0.2-1.0); CO2 21.5 mmol/L (21.0-32.0); CREATININE 0.9 mg/dL (0.55-1.02); Calcium 9.2 mg/dL (8.5-10.1); Chloride 103 mmol/L (98-107); Estimated GFR 72.28 (mL/min/1.73m2); Glucose 175 mg/dL (74-106); Potassium 3.4 mmol/L (3.5-5.1); Sodium 136 mmol/L (136-145); Total Protein 6.8 g/dL (6.4-8.2)
[2022-11-10 07:07] LABS: Diff Comment RBC Morph Reviewed; Hypochromasia 2+; Microcytosis 2+
[2022-11-10 07:16] LABS: Hemoglobin A1C 6.9 % (<5.7)
--- NOTE | 2022-11-10 07:16 | PGE_ITS ---
Date of Service Date of service: 11/10/22 Time of Service: 07:17 Assessment and Plan Assessment and plan (1) Emphysematous pyelonephritis: Status: Acute Assessment and plan: Her system has been drained and she is on broad-spectrum antibiotics. Her urine and blood cultures are pending. There is not much else to do urologically until her infection has been treated. At that time, she would need her stent removed, retrograde pyelogram and possibly a ureteroscopy. With her medical comorbidities, he is not considered an anesthesia candidate at our facility, so any subsequent elective procedures would need to be done at a tertiary care center. Subjective Subjective Interval history since last seen: Feels tired. Still has some abdominal pain but less than on admission Exam Narrative Exam Narrative: Tmax 38.1 overnight. The remainder of her vital signs are documented elsewhere Her abdomen is soft with no peritoneal signs Her Martinez catheter is draining cloudy urine, but much improved from immediately postop Objective Last Vital Signs Temp 37.1 C 11/10/22 04:00 Pulse 101 H 11/10/22 00:00 Resp 13 11/10/22 00:00 BP 93/52 L 11/10/22 00:00 Pulse Ox 95 11/10/22 00:00 Laboratory Results - last 24 hr 11/09/22 11/09/22 11/09/22 10:34 10:34 10:34 WBC 16.02 H RBC 3.97 Hgb 7.8 L Hct 29.1 L MCV 73 L MCH 19.6 L MCHC 26.8 L RDW 18.1 H Plt Count 337 MPV 9.2 Immature Gran % Neutrophils % Lymphocytes % Monocytes % Eosinophils % Basophils % Nucleated RBC % Absolute Neutrophils Absolute Lymphocytes Absolute Monocytes Absolute Eosinophils Absolute Basophils RBC Morphology Hypochromasia Microcytosis VBG pH VBG pCO2 VBG pO2 VBG HCO3 VBG Total CO2 VBG O2 Saturation VBG Base Excess VBG Lactate 1.7 H Sodium 130 L Potassium 3.7 Chloride 95 L Carbon Dioxide 25.0 Anion Gap 10.0 BUN 20 H Creatinine 1.1 H Est GFR (CKD-EPI 2020) 56.81 Glucose 243 H Calcium 9.5 Iron TIBC Ferritin Total Bilirubin 0.6 AST 18 ALT 7 L Alkaline Phosphatase 84 C-Reactive Protein Total Protein 7.8 Albumin 3.2 L Lipase 29 Procalcitonin Urine Color Urine Clarity Urine pH Ur Specific [place] Urine Protein Urine Ketones Urine Blood Urine Nitrite Urine Bilirubin Urine Urobilinogen Ur Leukocyte Esterase Urine RBC Urine WBC Ur Epithelial Cells Urine Crystals Urine Bacteria Urine Casts Urine Mucus Urine Other Ur Culture Indicated? Urine Glucose COVID-19 Source SARS-CoV-2 (PCR) Add-On Test Request Patient ABO/Rh Antibody Screen Crossmatch 11/09/22 11/09/22 11/09/22 11:10 14:50 14:50 WBC RBC Hgb Hct MCV MCH MCHC RDW Plt Count MPV Immature Gran % Neutrophils % Lymphocytes % Monocytes % Eosinophils % Basophils % Nucleated RBC % Absolute Neutrophils Absolute Lymphocytes Absolute Monocytes Absolute Eosinophils Absolute Basophils RBC Morphology Hypochromasia Microcytosis VBG pH VBG pCO2 VBG pO2 VBG HCO3 VBG Total CO2 VBG O2 Saturation VBG Base Excess VBG Lactate 1.4 Sodium 132 L Potassium 3.8 Chloride 101 Carbon Dioxide 19.3 L Anion Gap 11.7 H BUN 18 Creatinine 1.0 Est GFR (CKD-EPI 2020) 63.70 Glucose 143 H Calcium 7.7 L Iron TIBC Ferritin Total Bilirubin AST ALT Alkaline Phosphatase C-Reactive Protein Total Protein Albumin Lipase Procalcitonin Urine Color Yellow Urine Clarity Sl Cloudy Urine pH 6.0 Ur Specific [place] <= 1.005 Urine Protein Negative Urine Ketones Negative Urine Blood Trace-intact H Urine Nitrite Negative Urine Bilirubin Negative Urine Urobilinogen 0.2 Ur Leukocyte Esterase Large H Urine RBC 0-2 Urine WBC >50 H Ur Epithelial Cells Few Urine Crystals Negative Urine Bacteria Rare Urine Casts Negative Urine Mucus Negative Urine Other Few Yeast Ur Culture Indicated? Yes Urine Glucose >=1000 H COVID-19 Source SARS-CoV-2 (PCR) Add-On Test Request Patient ABO/Rh Antibody Screen Crossmatch 11/09/22 11/09/22 11/09/22 15:52 20:00 20:05 WBC RBC Hgb Hct MCV MCH MCHC RDW Plt Count MPV Immature Gran % Neutrophils % Lymphocytes % Monocytes % Eosinophils % Basophils % Nucleated RBC % Absolute Neutrophils Absolute Lymphocytes Absolute Monocytes Absolute Eosinophils Absolute Basophils RBC Morphology Hypochromasia Microcytosis VBG pH VBG pCO2 VBG pO2 VBG HCO3 VBG Total CO2 VBG O2 Saturation VBG Base Excess VBG Lactate Sodium Potassium Chloride Carbon Dioxide Anion Gap BUN Creatinine Est GFR (CKD-EPI 2020) Glucose Calcium Iron TIBC Ferritin Total Bilirubin AST ALT Alkaline Phosphatase C-Reactive Protein Total Protein Albumin Lipase Procalcitonin 2.0 Urine Color Urine Clarity Urine pH Ur Specific [place] Urine Protein Urine Ketones Urine Blood Urine Nitrite Urine Bilirubin Urine Urobilinogen Ur Leukocyte Esterase Urine RBC Urine WBC Ur Epithelial Cells Urine Crystals Urine Bacteria Urine Casts Urine Mucus Urine Other Ur Culture Indicated? Urine Glucose COVID-19 Source Nasal/Nares SARS-CoV-2 (PCR) Negative Add-On Test Request DONE Patient ABO/Rh Antibody Screen Crossmatch 11/09/22 11/09/22 11/09/22 20:05 20:10 20:10 WBC RBC Hgb Hct MCV MCH MCHC RDW Plt Count MPV Immature Gran % Neutrophils % Lymphocytes % Monocytes % Eosinophils % Basophils % Nucleated RBC % Absolute Neutrophils Absolute Lymphocytes Absolute Monocytes Absolute Eosinophils Absolute Basophils RBC Morphology Hypochromasia Microcytosis VBG pH VBG pCO2 VBG pO2 VBG HCO3 VBG Total CO2 VBG O2 Saturation VBG Base Excess VBG Lactate Sodium 136 Potassium 3.6 Chloride 102 Carbon Dioxide 22.2 Anion Gap 11.8 H BUN 20 H Creatinine 1.0 Est GFR (CKD-EPI 2020) 63.70 Glucose 168 H Calcium 9.3 Iron TIBC Ferritin Total Bilirubin AST ALT Alkaline Phosphatase C-Reactive Protein > 25.00 H Total Protein Albumin Lipase Procalcitonin Urine Color Urine Clarity Urine pH Ur Specific [place] Urine Protein Urine Ketones Urine Blood Urine Nitrite Urine Bilirubin Urine Urobilinogen Ur Leukocyte Esterase Urine RBC Urine WBC Ur Epithelial Cells Urine Crystals Urine Bacteria Urine Casts Urine Mucus Urine Other Ur Culture Indicated? Urine Glucose COVID-19 Source SARS-CoV-2 (PCR) Add-On Test Request Patient ABO/Rh A Positive Antibody Screen NEGATIVE Crossmatch See Detail 11/09/22 11/09/22 11/09/22 20:10 20:10 20:10 WBC RBC Hgb 8.3 L Hct 31.8 L MCV MCH MCHC RDW Plt Count MPV Immature Gran % Neutrophils % Lymphocytes % Monocytes % Eosinophils % Basophils % Nucleated RBC % Absolute Neutrophils Absolute Lymphocytes Absolute Monocytes Absolute Eosinophils Absolute Basophils RBC Morphology Hypochromasia Microcytosis VBG pH 7.26 L VBG pCO2 47 VBG pO2 55 VBG HCO3 21 L VBG Total CO2 21 L VBG O2 Saturation 83 VBG Base Excess -6 L VBG Lactate 1.2 Sodium Potassium Chloride Carbon Dioxide Anion Gap BUN Creatinine Est GFR (CKD-EPI 2020) Glucose Calcium Iron TIBC Ferritin Total Bilirubin AST ALT Alkaline Phosphatase C-Reactive Protein Total Protein Albumin Lipase Procalcitonin Urine Color Urine Clarity Urine pH Ur Specific [place] Urine Protein Urine Ketones Urine Blood Urine Nitrite Urine Bilirubin Urine Urobilinogen Ur Leukocyte Esterase Urine RBC Urine WBC Ur Epithelial Cells Urine Crystals Urine Bacteria Urine Casts Urine Mucus Urine Other Ur Culture Indicated? Urine Glucose COVID-19 Source SARS-CoV-2 (PCR) Add-On Test Request Patient ABO/Rh Antibody Screen Crossmatch 11/09/22 11/09/22 11/09/22 21:32 21:32 Unknown WBC RBC Hgb Hct MCV MCH MCHC RDW Plt Count MPV Immature Gran % Neutrophils % Lymphocytes % Monocytes % Eosinophils % Basophils % Nucleated RBC % Absolute Neutrophils Absolute Lymphocytes Absolute Monocytes Absolute Eosinophils Absolute Basophils RBC Morphology Hypochromasia Microcytosis VBG pH VBG pCO2 VBG pO2 VBG HCO3 VBG Total CO2 VBG O2 Saturation VBG Base Excess VBG Lactate Sodium Potassium Chloride Carbon Dioxide Anion Gap BUN Creatinine Est GFR (CKD-EPI 2020) Glucose Calcium Iron Cancelled TIBC Cancelled Ferritin Cancelled Total Bilirubin AST ALT Alkaline Phosphatase C-Reactive Protein Total Protein Albumin Lipase Procalcitonin Urine Color Urine Clarity Urine pH Ur Specific [place] Urine Protein Urine Ketones Urine Blood Urine Nitrite Urine Bilirubin Urine Urobilinogen Ur Leukocyte Esterase Urine RBC Urine WBC Ur Epithelial Cells Urine Crystals Urine Bacteria Urine Casts Urine Mucus Urine Other Ur Culture Indicated? Urine Glucose COVID-19 Source SARS-CoV-2 (PCR) Add-On Test Request TNP Patient ABO/Rh Antibody Screen Crossmatch 11/10/22 11/10/22 05:30 05:30 WBC 11.07 H RBC 3.94 Hgb 8.0 L Hct 28.9 L MCV 73 L MCH 20.3 L MCHC 27.7 L RDW 17.7 H Plt Count 309 MPV 9.7 Immature Gran % 0.5 Neutrophils % 79.2 Lymphocytes % 8.7 Monocytes % 10.8 Eosinophils % 0.5 Basophils % 0.3 Nucleated RBC % 0.0 Absolute Neutrophils 8.77 H Absolute Lymphocytes 0.96 L Absolute Monocytes 1.20 H Absolute Eosinophils 0.06 Absolute Basophils 0.03 RBC Morphology See Below Hypochromasia 2+ Microcytosis 2+ VBG pH VBG pCO2 VBG pO2 VBG HCO3 VBG Total CO2 VBG O2 Saturation VBG Base Excess VBG Lactate Sodium 136 Potassium 3.4 L Chloride 103 Carbon Dioxide 21.5 Anion Gap 11.5 H BUN 18 Creatinine 0.9 Est GFR (CKD-EPI 2020) 72.28 Glucose 175 H Calcium 9.2 Iron TIBC Ferritin Total Bilirubin 0.8 AST 13 L ALT 15 Alkaline Phosphatase 83 C-Reactive Protein Total Protein 6.8 Albumin 2.5 L Lipase Procalcitonin Urine Color Urine Clarity Urine pH Ur Specific [place] Urine Protein Urine Ketones Urine Blood Urine Nitrite Urine Bilirubin Urine Urobilinogen Ur Leukocyte Esterase Urine RBC Urine WBC Ur Epithelial Cells Urine Crystals Urine Bacteria Urine Casts Urine Mucus Urine Other Ur Culture Indicated? Urine Glucose COVID-19 Source SARS-CoV-2 (PCR) Add-On Test Request Patient ABO/Rh Antibody Screen Crossmatch Time Spent with Patient Time Spent with Patient: <25 minutes Time was spent: preparing to see the patient(eg.review tests) and obtaining and/or reviewing separately [facility]
[2022-11-10] MEDS: Insulin Aspart 300 UNITS/3 ML PEN SC ×6 (08:26→20:00)
--- NOTE | 2022-11-10 08:28 | W.ANESPOSTOP ---
Postoperative Evaluation Date, Time and Location Date Performed: 11/09/22 Time Performed: 18:30 Patient Location: Intensive Care Unit Vital Signs Most Recent Imported Vital Signs: Most Recent Vital Signs Temp Pulse Resp BP Pulse Ox 37.1 C 101 H 13 93/52 L 95 11/10/22 04:00 11/10/22 00:00 11/10/22 00:00 11/10/22 00:00 11/10/22 00:00 Pain Score Most Recent Pain Score: Most Recent Pain Score Pain Level [Right Mid Abdomen] 0 11/09/22 14:21 Pain Level 2 11/10/22 00:00 Assessment Mental Status: Awake (Alert & Oriented to Patient Baseline) Airway and Respiratory Function: Patent airway with normal (patient baseline) respiratory exam Cardiovascular Function: Hemodynamically Stable Hydration Status: Adequately Hydrated Nausea & Vomiting: No Nausea or Vomiting Pain: Pain is tolerable per patient Peripheral Nerve Block: Patient did not receive a nerve block Postoperative Comments:: Transfer to ICU
[2022-11-10] MEDS: Aspirin E.C. 81 MG TABEC PO (08:49)
[2022-11-10] MEDS: buPROPion-XL 150 MG TABCR PO (08:50)
[2022-11-10] MEDS: Carbidopa 25/Levodopa 100 TAB PO ×4 (08:53→19:59)
[2022-11-10] MEDS: Cetirizine 10 MG TAB PO (08:53)
[2022-11-10] MEDS: Empaglifozin 25 MG TAB PO (08:54)
[2022-11-10] MEDS: Docusate Sodium 100 MG CAP PO ×3 (08:54→19:57)
[2022-11-10] MEDS: Fluticasone NASAL SPRAY 16 GM BTL NS ×2 (08:55→19:55)
[2022-11-10] MEDS: Gabapentin 600 MG TAB 1200 MG PO ×2 (08:56→19:56)
[2022-11-10] MEDS: Magnesium Oxide 400 MG TAB 800 MG PO (08:57)
[2022-11-10] MEDS: Multivitamin w/Minerals TAB 1 TAB PO (09:00)
[2022-11-10] MEDS: Omeprazole 20 MG CAPCR 40 MG PO (09:00)
[2022-11-10] MEDS: QUEtiapine 100 MG TAB PO ×2 (09:05→19:58)
[2022-11-10] MEDS: traZODone 50 MG TAB 25 MG PO ×2 (09:05→19:56)
[2022-11-10] MEDS: lamoTRIgine 25 MG TAB 50 MG PO (09:10)
[2022-11-10] MEDS: Simethicone 80 MG CHEW 160 MG CH (09:14)
--- NOTE | 2022-11-10 09:36 | NUR.NOTE ---
RN gives MD patient's medicinal list from long-term to assist him in ordering pain medication.Nursing Note:
--- NOTE | 2022-11-10 09:44 | W.PM.PROGNOT ---
Date of Service Date of service: 11/10/22 Time of Service: 09:44 Assessment and Plan Assessment and plan (1) Sepsis: Status: Acute Assessment and plan: Patient is status post cystoscopy and ureteroscopy along with retrograde pyelogram of the right renal collecting system and stent placement. Per Dr. Alvarez he feels that she is not a candidate for further elective procedures and would need to go to a tertiary care center. Admission blood culture shows positive for gram-positive cocci in 1 out of 2 cultures where is her urine culture shows gram-negative rods. Patient remains on meropenem and vancomycin. I repeat her blood cultures tomorrow and make sure she is clearing the infection. The gram-positive cocci very well may be contaminant. We will get an echocardiogram to make sure there is no vegetations on her valves. Once gram-negative vi has been identified and sensitivities have been obtained we will de-escalate her antibiotics. Patient is hemodynamically stable no longer requires ICU monitoring can be transferred out to the medical/surgical floor for continued parenteral antibiotics. Once her bacteremia is cleared she can be switched to oral antibiotics and transferred back to the [facility]. Follow-up will need to be arranged with urology services [facility] in [place]. Professional time spent interviewing and examining patient, discussion of goals of care with hospital team (care management, nursing and consulting professionals) was 35 minutes. (2) Emphysematous pyelonephritis: Status: Acute Assessment and plan: As above. (3) Hydronephrosis of right kidney: Status: Acute Assessment and plan: Status post cystoscopy ureteroscopy with right retrograde pyelogram and insertion of right ureteral stent. Per Dr. Alvarez's note patient will need to be referred to a tertiary care center for further urologic procedures. (4) Pyuria due to bacterial urinary tract infection: Status: Acute Assessment and plan: As above (5) Microcytic anemia: Status: Acute Assessment and plan: Hemoglobin is up to 8 g now. She still has microcytic indices and has normal B12 and folate levels. But has low iron levels. As the patient has chronic constipation issues requiring an extensive bowel regimen including Linzess I think she would benefit from parenteral iron supplementation rather than oral supplementation. (6) IDDM (insulin dependent diabetes mellitus): Assessment and plan: Monitor blood sugars before meals and at bedtime, will treat with basal bolus insulin. (7) Gallstones: Status: Acute Assessment and plan: Asymptomatic gallstones. She had a work-up last fall with a negative HIDA scan. We will continue to monitor at this point. (8) Parkinsonism: Status: Acute Assessment and plan: Continue her Sinemet (9) History of stroke: Status: Acute Assessment and plan: Continue antiplatelet therapy with aspirin. I have increased her Prilosec to 40 mg daily given her anemia. (10) Hemiparesis affecting right side as late effect of cerebrovascular accident: Status: Acute (11) Bipolar 1 disorder: Status: Chronic Assessment and plan: Continue eating her previous dose of Seroquel and her trazodone. (12) Constipation: Status: Chronic Assessment and plan: Continue stool softeners and laxatives. Her Linzess has been ordered but is still listed as pending. I will give her some Relistor and dulcolax suppository and check KUB to look for ileus vs constipation vs bowel obstruction Qualifiers: Constipation type: unspecified constipation type Qualified Code(s): K59.00 - Constipation, unspecified (13) DVT prophylaxis: Status: Acute Assessment and plan: Low-dose enoxaparin. If she has further worsening of her anemia we will discontinue in favor of SCDs. Subjective Subjective Interval history since last seen: Patient complains of inadequate pain control still states she has right-sided flank pain. She is also complaining of not getting her lidocaine patch change. Patient has chronic pain in her right ankle and right knee secondary to contractures from her CVA. I reordered her lidocaine patch also order topical, Voltaren gel is also been reordered but is pending. With respect to her abdominal pain its not nearly as severe as when she first presented. However abdomen is distended. She did tolerate her breakfast albeit she only ate about 30% had some oatmeal coffee and juice. No nausea or vomiting. No bowel movement yet although she has flatus. Abdomen is distended. She has chronic constipations for which she is on a fairly extensive bowel regimen at the [facility] including Linzess. Exam Narrative Exam Narrative: Middle-aged white female lying in bed sitting upright who is alert and oriented person place time circumstance. She is in mild discomfort but no acute distress. She has been hemodynamically stable overnight. Lungs are clear to auscultation Heart is regular rate and rhythm Abdomen is distended protuberant with hyperactive bowel sounds abdomen is soft although distended. She has focalized tenderness in the right flank and right upper quadrant of abdomen. Extremities no peripheral cyanosis or edema. No erythema of her right leg or ankle. Objective Last Vital Signs Temp 37.2 C 11/10/22 09:20 Pulse 97 H 11/10/22 09:20 Resp 16 11/10/22 09:20 BP 107/55 L 11/10/22 09:20 Pulse Ox 95 11/10/22 09:20 Laboratory Results - last 24 hr 11/09/22 11/09/22 11/09/22 10:34 10:34 10:34 WBC 16.02 H RBC 3.97 Hgb 7.8 L Hct 29.1 L MCV 73 L MCH 19.6 L MCHC 26.8 L RDW 18.1 H Plt Count 337 MPV 9.2 Immature Gran % Neutrophils % Lymphocytes % Monocytes % Eosinophils % Basophils % Nucleated RBC % Absolute Neutrophils Absolute Lymphocytes Absolute Monocytes Absolute Eosinophils Absolute Basophils RBC Morphology Hypochromasia Microcytosis VBG pH VBG pCO2 VBG pO2 VBG HCO3 VBG Total CO2 VBG O2 Saturation VBG Base Excess VBG Lactate 1.7 H Sodium 130 L Potassium 3.7 Chloride 95 L Carbon Dioxide 25.0 Anion Gap 10.0 BUN 20 H Creatinine 1.1 H Est GFR (CKD-EPI 2020) 56.81 Glucose 243 H Hemoglobin A1c Calcium 9.5 Iron TIBC Ferritin Total Bilirubin 0.6 AST 18 ALT 7 L Alkaline Phosphatase 84 C-Reactive Protein Total Protein 7.8 Albumin 3.2 L Lipase 29 Procalcitonin Urine Color Urine Clarity Urine pH Ur Specific [place] Urine Protein Urine Ketones Urine Blood Urine Nitrite Urine Bilirubin Urine Urobilinogen Ur Leukocyte Esterase Urine RBC Urine WBC Ur Epithelial Cells Urine Crystals Urine Bacteria Urine Casts Urine Mucus Urine Other Ur Culture Indicated? Urine Glucose COVID-19 Source SARS-CoV-2 (PCR) Add-On Test Request Patient ABO/Rh Antibody Screen Crossmatch 11/09/22 11/09/22 11/09/22 11:10 14:50 14:50 WBC RBC Hgb Hct MCV MCH MCHC RDW Plt Count MPV Immature Gran % Neutrophils % Lymphocytes % Monocytes % Eosinophils % Basophils % Nucleated RBC % Absolute Neutrophils Absolute Lymphocytes Absolute Monocytes Absolute Eosinophils Absolute Basophils RBC Morphology Hypochromasia Microcytosis VBG pH VBG pCO2 VBG pO2 VBG HCO3 VBG Total CO2 VBG O2 Saturation VBG Base Excess VBG Lactate 1.4 Sodium 132 L Potassium 3.8 Chloride 101 Carbon Dioxide 19.3 L Anion Gap 11.7 H BUN 18 Creatinine 1.0 Est GFR (CKD-EPI 2020) 63.70 Glucose 143 H Hemoglobin A1c Calcium 7.7 L Iron TIBC Ferritin Total Bilirubin AST ALT Alkaline Phosphatase C-Reactive Protein Total Protein Albumin Lipase Procalcitonin Urine Color Yellow Urine Clarity Sl Cloudy Urine pH 6.0 Ur Specific [place] <= 1.005 Urine Protein Negative Urine Ketones Negative Urine Blood Trace-intact H Urine Nitrite Negative Urine Bilirubin Negative Urine Urobilinogen 0.2 Ur Leukocyte Esterase Large H Urine RBC 0-2 Urine WBC >50 H Ur Epithelial Cells Few Urine Crystals Negative Urine Bacteria Rare Urine Casts Negative Urine Mucus Negative Urine Other Few Yeast Ur Culture Indicated? Yes Urine Glucose >=1000 H COVID-19 Source SARS-CoV-2 (PCR) Add-On Test Request Patient ABO/Rh Antibody Screen Crossmatch 11/09/22 11/09/22 11/09/22 15:52 20:00 20:05 WBC RBC Hgb Hct MCV MCH MCHC RDW Plt Count MPV Immature Gran % Neutrophils % Lymphocytes % Monocytes % Eosinophils % Basophils % Nucleated RBC % Absolute Neutrophils Absolute Lymphocytes Absolute Monocytes Absolute Eosinophils Absolute Basophils RBC Morphology Hypochromasia Microcytosis VBG pH VBG pCO2 VBG pO2 VBG HCO3 VBG Total CO2 VBG O2 Saturation VBG Base Excess VBG Lactate Sodium Potassium Chloride Carbon Dioxide Anion Gap BUN Creatinine Est GFR (CKD-EPI 2020) Glucose Hemoglobin A1c Calcium Iron TIBC Ferritin Total Bilirubin AST ALT Alkaline Phosphatase C-Reactive Protein Total Protein Albumin Lipase Procalcitonin 2.0 Urine Color Urine Clarity Urine pH Ur Specific [place] Urine Protein Urine Ketones Urine Blood Urine Nitrite Urine Bilirubin Urine Urobilinogen Ur Leukocyte Esterase Urine RBC Urine WBC Ur Epithelial Cells Urine Crystals Urine Bacteria Urine Casts Urine Mucus Urine Other Ur Culture Indicated? Urine Glucose COVID-19 Source Nasal/Nares SARS-CoV-2 (PCR) Negative Add-On Test Request DONE Patient ABO/Rh Antibody Screen Crossmatch 11/09/22 11/09/22 11/09/22 20:05 20:10 20:10 WBC RBC Hgb Hct MCV MCH MCHC RDW Plt Count MPV Immature Gran % Neutrophils % Lymphocytes % Monocytes % Eosinophils % Basophils % Nucleated RBC % Absolute Neutrophils Absolute Lymphocytes Absolute Monocytes Absolute Eosinophils Absolute Basophils RBC Morphology Hypochromasia Microcytosis VBG pH VBG pCO2 VBG pO2 VBG HCO3 VBG Total CO2 VBG O2 Saturation VBG Base Excess VBG Lactate Sodium 136 Potassium 3.6 Chloride 102 Carbon Dioxide 22.2 Anion Gap 11.8 H BUN 20 H Creatinine 1.0 Est GFR (CKD-EPI 2020) 63.70 Glucose 168 H Hemoglobin A1c Calcium 9.3 Iron TIBC Ferritin Total Bilirubin AST ALT Alkaline Phosphatase C-Reactive Protein > 25.00 H Total Protein Albumin Lipase Procalcitonin Urine Color Urine Clarity Urine pH Ur Specific [place] Urine Protein Urine Ketones Urine Blood Urine Nitrite Urine Bilirubin Urine Urobilinogen Ur Leukocyte Esterase Urine RBC Urine WBC Ur Epithelial Cells Urine Crystals Urine Bacteria Urine Casts Urine Mucus Urine Other Ur Culture Indicated? Urine Glucose COVID-19 Source SARS-CoV-2 (PCR) Add-On Test Request Patient ABO/Rh A Positive Antibody Screen NEGATIVE Crossmatch See Detail 11/09/22 11/09/22 11/09/22 20:10 20:10 20:10 WBC RBC Hgb 8.3 L Hct 31.8 L MCV MCH MCHC RDW Plt Count MPV Immature Gran % Neutrophils % Lymphocytes % Monocytes % Eosinophils % Basophils % Nucleated RBC % Absolute Neutrophils Absolute Lymphocytes Absolute Monocytes Absolute Eosinophils Absolute Basophils RBC Morphology Hypochromasia Microcytosis VBG pH 7.26 L VBG pCO2 47 VBG pO2 55 VBG HCO3 21 L VBG Total CO2 21 L VBG O2 Saturation 83 VBG Base Excess -6 L VBG Lactate 1.2 Sodium Potassium Chloride Carbon Dioxide Anion Gap BUN Creatinine Est GFR (CKD-EPI 2020) Glucose Hemoglobin A1c Calcium Iron TIBC Ferritin Total Bilirubin AST ALT Alkaline Phosphatase C-Reactive Protein Total Protein Albumin Lipase Procalcitonin Urine Color Urine Clarity Urine pH Ur Specific [place] Urine Protein Urine Ketones Urine Blood Urine Nitrite Urine Bilirubin Urine Urobilinogen Ur Leukocyte Esterase Urine RBC Urine WBC Ur Epithelial Cells Urine Crystals Urine Bacteria Urine Casts Urine Mucus Urine Other Ur Culture Indicated? Urine Glucose COVID-19 Source SARS-CoV-2 (PCR) Add-On Test Request Patient ABO/Rh Antibody Screen Crossmatch 11/09/22 11/09/22 11/09/22 21:32 21:32 Unknown WBC RBC Hgb Hct MCV MCH MCHC RDW Plt Count MPV Immature Gran % Neutrophils % Lymphocytes % Monocytes % Eosinophils % Basophils % Nucleated RBC % Absolute Neutrophils Absolute Lymphocytes Absolute Monocytes Absolute Eosinophils Absolute Basophils RBC Morphology Hypochromasia Microcytosis VBG pH VBG pCO2 VBG pO2 VBG HCO3 VBG Total CO2 VBG O2 Saturation VBG Base Excess VBG Lactate Sodium Potassium Chloride Carbon Dioxide Anion Gap BUN Creatinine Est GFR (CKD-EPI 2020) Glucose Hemoglobin A1c Calcium Iron Cancelled TIBC Cancelled Ferritin Cancelled Total Bilirubin AST ALT Alkaline Phosphatase C-Reactive Protein Total Protein Albumin Lipase Procalcitonin Urine Color Urine Clarity Urine pH Ur Specific [place] Urine Protein Urine Ketones Urine Blood Urine Nitrite Urine Bilirubin Urine Urobilinogen Ur Leukocyte Esterase Urine RBC Urine WBC Ur Epithelial Cells Urine Crystals Urine Bacteria Urine Casts Urine Mucus Urine Other Ur Culture Indicated? Urine Glucose COVID-19 Source SARS-CoV-2 (PCR) Add-On Test Request TNP Patient ABO/Rh Antibody Screen Crossmatch 11/10/22 11/10/22 11/10/22 05:30 05:30 05:30 WBC 11.07 H RBC 3.94 Hgb 8.0 L Hct 28.9 L MCV 73 L MCH 20.3 L MCHC 27.7 L RDW 17.7 H Plt Count 309 MPV 9.7 Immature Gran % 0.5 Neutrophils % 79.2 Lymphocytes % 8.7 Monocytes % 10.8 Eosinophils % 0.5 Basophils % 0.3 Nucleated RBC % 0.0 Absolute Neutrophils 8.77 H Absolute Lymphocytes 0.96 L Absolute Monocytes 1.20 H Absolute Eosinophils 0.06 Absolute Basophils 0.03 RBC Morphology See Below Hypochromasia 2+ Microcytosis 2+ VBG pH VBG pCO2 VBG pO2 VBG HCO3 VBG Total CO2 VBG O2 Saturation VBG Base Excess VBG Lactate Sodium 136 Potassium 3.4 L Chloride 103 Carbon Dioxide 21.5 Anion Gap 11.5 H BUN 18 Creatinine 0.9 Est GFR (CKD-EPI 2020) 72.28 Glucose 175 H Hemoglobin A1c 6.9 H Calcium 9.2 Iron TIBC Ferritin Total Bilirubin 0.8 AST 13 L ALT 15 Alkaline Phosphatase 83 C-Reactive Protein Total Protein 6.8 Albumin 2.5 L Lipase Procalcitonin Urine Color Urine Clarity Urine pH Ur Specific [place] Urine Protein Urine Ketones Urine Blood Urine Nitrite Urine Bilirubin Urine Urobilinogen Ur Leukocyte Esterase Urine RBC Urine WBC Ur Epithelial Cells Urine Crystals Urine Bacteria Urine Casts Urine Mucus Urine Other Ur Culture Indicated? Urine Glucose COVID-19 Source SARS-CoV-2 (PCR) Add-On Test Request Patient ABO/Rh Antibody Screen Crossmatch Time Spent with Patient Time Spent with Patient: 35-49 minutes Time was spent: preparing to see the patient(eg.review tests), obtaining and/or reviewing separately otained hiistory, ordering medications,tests, procedures, referring, communicating with other health housekeeper caregiver, indepentently interpreting results, counseling the patient and care coordination
--- NOTE | 2022-11-10 10:20 | NUR.NOTE ---
Abdominal x-ray is taken.Nursing Note:
[2022-11-10] MEDS: Bisacodyl 10 MG SUPP PR (10:24)
[2022-11-10] MEDS: Acetaminophen 500 MG TAB 1000 MG PO ×3 (10:25→19:58)
[2022-11-10] MEDS: Methylnaltrexone 12 MG/0.6 ML VIAL SC (12:15)
[2022-11-10] MEDS: Lidocaine 5% Patch 1 PATCH TP (12:17)
[2022-11-10] MEDS: VANCOMYCIN/WATER (PEG) 1 GM/200 ML BAG IV ×2 (12:31→23:07)
[2022-11-10] MEDS: Normal Saline Flush 10 ML SYR (12:37)
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
[2022-11-10] MEDS: QUEtiapine 50 MG TAB PO (13:56)
--- NOTE | 2022-11-10 14:38 | NUR.NOTE ---
Report given to Med/banquet houseperson who will be moving patient Nursing Note:
--- NOTE | 2022-11-10 14:59 | NUR.NOTE ---
Nursing Note: report taken from Abhishek Curry RN for transfer from ICU to med/surg. At time of report pt was found to be soiled and changed by this sql report writer and DARIN Flores.
[2022-11-10] MEDS: Diclofenac 1% Gel 100 GM TUBE TP (19:55)
[2022-11-10] MEDS: Mirtazapine 15 MG TAB PO (19:57)
[2022-11-10] MEDS: rOPINIRole 0.5 MG TAB PO (19:58)
[2022-11-10] MEDS: Enoxaparin 40 MG/0.4 ML SYR SC (19:59)
[2022-11-10] MEDS: Insulin Glargine 300 UNITS/3 ML PEN 10 UNITS SC (20:00)
[2022-11-10] MEDS: Albuterol 2.5 MG/3 ML INH SOLN VIAL UPD (21:09)
[2022-11-10] MEDS: Lidocaine Patch Removal 1 EACH TD (23:11)
[2022-11-11 03:15] VITALS: BP 108/66; PULSE 84; RESP 20; TEMP 36.7; O2SAT 94
[2022-11-11] MEDS: MEROPENEM 1 GM in Normal Saline 100 ML IVPB ×3 (03:42→19:55)
[2022-11-11] MEDS: Lactated Ringers 1,000 ML 150 ML IV ×2 (05:49→13:27)
[2022-11-11] MEDS: Levothyroxine 100 MCG TAB PO (05:52)
[2022-11-11 07:48] VITALS: BP 125/80; PULSE 100; RESP 18; TEMP 38.6; O2SAT 96
[2022-11-11] MEDS: Omeprazole 20 MG CAPCR 40 MG PO (08:40)
[2022-11-11] MEDS: Vitamins B Comp w/C TAB 1 TAB PO (08:41)
[2022-11-11] MEDS: Multivitamin w/Minerals TAB 1 TAB PO (08:41)
[2022-11-11] MEDS: traZODone 50 MG TAB 25 MG PO ×2 (08:41→19:54)
[2022-11-11] MEDS: Acetaminophen 500 MG TAB 1000 MG PO ×3 (08:41→19:54)
[2022-11-11] MEDS: buPROPion-XL 150 MG TABCR PO (08:41)
[2022-11-11] MEDS: Cetirizine 10 MG TAB PO (08:41)
[2022-11-11] MEDS: Empaglifozin 25 MG TAB PO (08:41)
[2022-11-11] MEDS: Carbidopa 25/Levodopa 100 TAB PO ×4 (08:41→19:54)
[2022-11-11] MEDS: Aspirin E.C. 81 MG TABEC PO (08:41)
[2022-11-11] MEDS: Docusate Sodium 100 MG CAP PO ×3 (08:41→19:54)
[2022-11-11] MEDS: lamoTRIgine 25 MG TAB 50 MG PO (08:42)
[2022-11-11] MEDS: Gabapentin 600 MG TAB 1200 MG PO ×2 (08:42→19:54)
[2022-11-11] MEDS: QUEtiapine 100 MG TAB PO ×2 (08:42→19:54)
[2022-11-11] MEDS: Fluticasone NASAL SPRAY 16 GM BTL NS ×2 (08:42→19:53)
[2022-11-11] MEDS: Magnesium Oxide 400 MG TAB 800 MG PO (08:42)
[2022-11-11] MEDS: Diclofenac 1% Gel 100 GM TUBE TP ×2 (08:43→19:53)
[2022-11-11] MEDS: Insulin Aspart 300 UNITS/3 ML PEN SC ×6 (08:48→22:11)
[2022-11-11] MEDS: Lidocaine 5% Patch 1 PATCH TP (09:53)
[2022-11-11 10:13] LABS: Abs Immature Grans 0.03 10^3/uL (0.0-0.06); Absolute Basophil Count 0.03 10^3/uL (0.0-0.2); Absolute Eosinophil Count 0.12 10^3/uL (0.0-0.7); Absolute Lymphocyte Count 0.59 10^3/uL (1.2-3.4); Absolute Monocyte Count 0.56 10^3/uL (0.1-0.8); Absolute Neutrophil Count 5.23 10^3/uL (1.2-6.7); Basophils % 0.5; Eosinophils % 1.8; HCT 29.2 % (36.0-46.0); HGB 7.7 g/dL (11.2-15.7); Immature Grans % 0.5; MCHC 26.4 % (32.0-36.0); MCV 76 fL (80-95); MPV 9.2 fL (8.0-11.0); Monocytes % 8.5; Neutrophils % 79.7; Nucleated RBC 0.3 % (0.0-0.3); Platelet Count 296 10^3/uL (130-400); RBC 3.85 10^6/uL (3.93-5.22); RDW 18.1 % (11.7-14.6); RDW-SD 49.1 fL; WBC 6.56 10^3/uL (4.4-10.8)
[2022-11-11 10:25] LABS: Anion Gap 12.3 mmol/L (3-11); BUN 11 mg/dL (7-18); CO2 20.7 mmol/L (21.0-32.0); CREATININE 0.9 mg/dL (0.55-1.02); Calcium 8.9 mg/dL (8.5-10.1); Chloride 105 mmol/L (98-107); Estimated GFR 72.28 (mL/min/1.73m2); Glucose 240 mg/dL (74-106); Potassium 3.5 mmol/L (3.5-5.1); Sodium 138 mmol/L (136-145)
[2022-11-11 10:40] LABS: Anisocytosis 1+; Diff Comment RBC Morph Reviewed
[2022-11-11 10:41] LABS: C-Reactive Protein > 25.00 mg/dL (0.0-0.3); Hypochromasia 2+; Microcytosis 2+
[2022-11-11 10:45] LABS: Procalcitonin 1.9 ng/mL
[2022-11-11 11:21] VITALS: BP 101/63; PULSE 89; RESP 16; TEMP 37.9; O2SAT 97
[2022-11-11] MEDS: QUEtiapine 50 MG TAB PO (13:14)
[2022-11-11] MEDS: Bisacodyl 10 MG SUPP PR (13:14)
[2022-11-11] MEDS: VANCOMYCIN/WATER (PEG) 1 GM/200 ML BAG IV (13:29)
[2022-11-11] MEDS: Simethicone 80 MG CHEW 160 MG CH ×2 (13:55→19:54)
--- NOTE | 2022-11-11 14:54 | PGE_ITS ---
Date of Service Date of service: 11/11/22 Time of Service: 14:54 Assessment and Plan Assessment and plan (1) Sepsis: Status: Acute Assessment and plan: Status post cystoscopy with right retrograde pyelogram and insertion of right ureteral stent performed 11/09/[address] Alvarez's note he feels the patient should be referred to a tertiary care center for any future surgical intervention. Blood cultures 11/09/2022 showed 1 set positive for nonaureus staph species second blood culture was no growth repeat blood cultures from today are pending. MRSA screen is pending. Urine culture grew mixed gram-negative irving and gram- positive irving. Patient remains on vancomycin pending results of MRSA screen she also remains on meropenem. Given that we have no isolation of the exact causative species leading to her sepsis and emphysematous pyelonephritis I will plan on a 7 day course of antibiotic. she is now d#3 Professional time spent interviewing and examining patient, discussion of goals of care with hospital team (care management, nursing and consulting professionals) was 35 minutes. (2) Emphysematous pyelonephritis: Status: Acute Assessment and plan: As above. (3) Hydronephrosis of right kidney: Status: Acute Assessment and plan: Status post cystoscopy ureteroscopy with right retrograde pyelogram and insertion of right ureteral stent. Per Dr. Alvarez's note patient will need to be referred to a tertiary care center for further urologic procedures. (4) Pyuria due to bacterial urinary tract infection: Status: Acute Assessment and plan: As above (5) Microcytic anemia: Status: Acute Assessment and plan: Hemoglobin is up to 8 g now. She still has microcytic indices and has normal B12 and folate levels. But has low iron levels. As the patient has chronic constipation issues requiring an extensive bowel regimen including Linzess I think she would benefit from parenteral iron supplementation rather than oral supplementation. I will order Venofer 400 mg iv tomorrow then 300 mg daily x 2 days (6) IDDM (insulin dependent diabetes mellitus): Assessment and plan: Monitor blood sugars before meals and at bedtime, will treat with basal bolus insulin. (7) Gallstones: Status: Acute Assessment and plan: Asymptomatic gallstones. She had a work-up last fall with a negative HIDA scan. We will continue to monitor at this point. (8) Parkinsonism: Status: Acute Assessment and plan: Continue her Sinemet (9) History of stroke: Status: Acute Assessment and plan: Continue antiplatelet therapy with aspirin. I have increased her Prilosec to 40 mg daily given her anemia. (10) Hemiparesis affecting right side as late effect of cerebrovascular accident: Status: Acute (11) Bipolar 1 disorder: Status: Chronic Assessment and plan: Continue eating her previous dose of Seroquel and her trazodone. (12) Constipation: Status: Chronic Assessment and plan: will change her Senna and Miralax to scheduled doses, give her Relistor today along w/ an enema. If no results then consider GoLytely Qualifiers: Constipation type: unspecified constipation type Qualified Code(s): K59.00 - Constipation, unspecified (13) DVT prophylaxis: Status: Acute Assessment and plan: Low-dose enoxaparin. If she has further worsening of her anemia we will discont inue in favor of SCDs. Subjective Subjective Interval history since last seen: Patient has multiple complaints but her main concern is she has abdominal bloating some nausea no vomiting and still has abdominal pain. Still running intermittent fevers. Other concerns include chronic sinusitis symptoms. Says her FloKicksende is not working for her. She also relates that she is seeing a GI specialist at [facility] who wants her to have an EGD and colonoscopy. She states that she takes a Dulcolax suppository on a daily basis to help empty out her bowels. Dulcolax was ordered as needed have since changed to daily. She was already on pretty good regimen for her bowels with docusate, simethicone, senna and MiraLAX. However it appears the MiraLAX and senna were not being given on a regular basis but were ordered as needed. I spoke w/ her nurses and advised them to give her Relistor and an enema and I will change her Miralax and Senna to scheduled rather than on a prn basis. Her nurse indicated that she in fact did have a BM this morning and that w/ rotating the patient in bed she does pass flatus which helped w/ her abdominal distension. Exam Narrative Exam Narrative: Middle-aged white female with red hair lying in bed alert and oriented person place time circumstance. Lungs are clear to auscultation Heart is regular rate and rhythm Abdomen is distended with bowel sounds throughout entire abdominal field, abdomen is soft there is no rebound tenderness no involuntary guarding no palpable masses and while I was distracting her I was able to palpate fairly deeply without causing any pain. Objective Last Vital Signs Temp 37.9 C H 11/11/22 11:21 Pulse 89 11/11/22 11:21 Resp 16 11/11/22 11:21 BP 101/63 11/11/22 11:21 Pulse Ox 97 11/11/22 11:21 Laboratory Results - last 24 hr 11/11/22 11/11/22 11/11/22 09:49 09:49 10:00 WBC 6.56 RBC 3.85 L Hgb 7.7 L Hct 29.2 L MCV 76 L MCH 20.0 L MCHC 26.4 L RDW 18.1 H Plt Count 296 MPV 9.2 Immature Gran % 0.5 Neutrophils % 79.7 Lymphocytes % 9.0 Monocytes % 8.5 Eosinophils % 1.8 Basophils % 0.5 Nucleated RBC % 0.3 Absolute Neutrophils 5.23 Absolute Lymphocytes 0.59 L Absolute Monocytes 0.56 Absolute Eosinophils 0.12 Absolute Basophils 0.03 RBC Morphology See Below Hypochromasia 2+ Anisocytosis 1+ Microcytosis 2+ Sodium 138 Potassium 3.5 Chloride 105 Carbon Dioxide 20.7 L Anion Gap 12.3 H BUN 11 Creatinine 0.9 Est GFR (CKD-EPI 2020) 72.28 Glucose 240 H Calcium 8.9 C-Reactive Protein > 25.00 H Procalcitonin 1.9 Time Spent with Patient Time Spent with Patient: 35-49 minutes Time was spent: preparing to see the patient(eg.review tests), obtaining and/or reviewing separately otained hiistory, ordering medications,tests, procedures, referring, communicating with other health health care sanitary technician, indepentently interpreting results, counseling the patient and care coordination
[2022-11-11 15:35] VITALS: BP 109/79; PULSE 90; RESP 20; TEMP 37.3; O2SAT 96
[2022-11-11] MEDS: Methylnaltrexone 12 MG/0.6 ML VIAL SC (15:43)
[2022-11-11] MEDS: Polyethylene Glycol 3350 17 GM PACKET PO (15:43)
--- NOTE | 2022-11-11 18:00 | DI.RAD_ITS ---
Exam(s) XR ABDOMEN FLAT PLATE EXAM: 2D digital imaging was performed. CLINICAL HISTORY: abdominal bloating; pain. COMPARISON: CR XR ABDOMEN FLAT PLATE from 11/10/2022 TECHNIQUE: Supine views of the abdomen performed. FINDINGS: Right ureteral stent again noted. No significant change in diffuse small and large bowel distension. No features to suggest obstruction. IMPRESSION: Diffuse mild gaseous distension of the small bowel and colon. No significant change from previous da y's exam. DATA REPOSITORY: RADIATION DOSE DELIVERED:
--- NOTE | 2022-11-11 18:27 | DI.VRAD_ITS ---
PROCEDURE INFORMATION: Exam: XR Abdomen Exam date and time: 11/11/2022 6:05 PM Age: 62 years old Clinical indication: Bloating and other: Abdominal bloating; Pain TECHNIQUE: Imaging protocol: Radiologic exam of the abdomen. Views: Frontal supine view of the abdomen. 1 View. COMPARISON: CR XR ABDOMEN FLAT PLATE 11/10/2022 9:40 AM FINDINGS: Tubes, catheters and devices: Double-J right ureteral stent noted. Gastrointestinal tract: Stable diffuse gaseous prominence of the large and small bowel without obstruction. Bones/joints: Unremarkable. IMPRESSION: Stable diffuse gaseous distention of the large and small bowel without obstruction and paucity of stool in the large bowel. Dictated and Authenticated by: Mahesh Wilson MD. Ordering:ESTEPHANIA Greene MD
[2022-11-11 19:48] VITALS: BP 105/69; PULSE 86; RESP 20; TEMP 37; O2SAT 97
[2022-11-11] MEDS: Albuterol/Ipratropium 3 ML UPD VIAL UPD (19:52)
[2022-11-11] MEDS: Normal Saline Flush 10 ML SYR IVP (19:53)
[2022-11-11] MEDS: Enoxaparin 40 MG/0.4 ML SYR SC (19:53)
[2022-11-11] MEDS: Mylanta Suspension 30 ML CUP PO (19:54)
[2022-11-11] MEDS: Lidocaine Patch Removal 1 EACH TD (19:55)
[2022-11-11] MEDS: Mirtazapine 15 MG TAB PO (22:10)
[2022-11-11] MEDS: rOPINIRole 0.5 MG TAB PO (22:10)
[2022-11-11] MEDS: Insulin Glargine 300 UNITS/3 ML PEN 10 UNITS SC (22:10)
[2022-11-11 23:28] LABS: Vancomycin, Trough 24.8 ug/mL (10.0-20.0)
[2022-11-12] VITALS (8 sets, daily range): BP systolic 98–138; BP diastolic 64–80; PULSE 78–98; RESP 18–22; TEMP 36.1–38.8; O2SAT 92–98
[2022-11-12] MEDS: Lactated Ringers 1,000 ML 150 ML IV ×3 (00:55→20:41)
[2022-11-12] MEDS: MEROPENEM 1 GM in Normal Saline 100 ML IVPB ×3 (03:23→20:24)
[2022-11-12] MEDS: VANCOMYCIN 750 MG in Normal Saline 250 ML 166.667 MG IVPB (04:47)
[2022-11-12] MEDS: Levothyroxine 100 MCG TAB PO (06:05)
[2022-11-12 06:54] LABS: ALT 6 U/L (14-59); AST 16 U/L (15-37); Albumin 2.2 g/dL (3.4-5.0); Alkaline Phosphatase 68 U/L (46-116); Bilirubin, Direct 0.1 mg/dL (0.0-0.2); Bilirubin, Total 0.2 mg/dL (0.2-1.0); Total Protein 6.3 g/dL (6.4-8.2)
[2022-11-12] MEDS: Fluticasone NASAL SPRAY 16 GM BTL NS ×2 (08:01→20:44)
[2022-11-12] MEDS: Simethicone 80 MG CHEW 160 MG CH ×2 (08:01→13:12)
[2022-11-12] MEDS: Polyethylene Glycol 3350 17 GM PACKET PO (08:01)
[2022-11-12] MEDS: Bisacodyl 10 MG SUPP PR (08:01)
[2022-11-12] MEDS: Omeprazole 20 MG CAPCR 40 MG PO (08:01)
[2022-11-12] MEDS: lamoTRIgine 25 MG TAB 50 MG PO (08:01)
[2022-11-12] MEDS: Vitamins B Comp w/C TAB 1 TAB PO (08:02)
[2022-11-12] MEDS: Carbidopa 25/Levodopa 100 TAB PO ×4 (08:02→20:43)
[2022-11-12] MEDS: Acetaminophen 500 MG TAB 1000 MG PO ×3 (08:02→20:43)
[2022-11-12] MEDS: Cetirizine 10 MG TAB PO (08:02)
[2022-11-12] MEDS: traZODone 50 MG TAB 25 MG PO ×2 (08:02→20:42)
[2022-11-12] MEDS: buPROPion-XL 150 MG TABCR PO (08:02)
[2022-11-12] MEDS: Docusate Sodium 100 MG CAP PO ×2 (08:02→20:43)
[2022-11-12] MEDS: Aspirin E.C. 81 MG TABEC PO (08:03)
[2022-11-12] MEDS: QUEtiapine 100 MG TAB PO ×2 (08:03→20:43)
[2022-11-12] MEDS: Empaglifozin 25 MG TAB PO (08:03)
[2022-11-12] MEDS: Gabapentin 600 MG TAB 1200 MG PO ×2 (08:03→20:43)
[2022-11-12] MEDS: Multivitamin w/Minerals TAB 1 TAB PO (08:03)
[2022-11-12] MEDS: Magnesium Oxide 400 MG TAB 800 MG PO (08:03)
[2022-11-12] MEDS: Diclofenac 1% Gel 100 GM TUBE TP ×2 (08:04→20:46)
[2022-11-12] MEDS: Insulin Aspart 300 UNITS/3 ML PEN SC ×3 (09:28→17:26)
[2022-11-12] MEDS: Lidocaine 5% Patch 1 PATCH TP (10:13)
[2022-11-12] MEDS: IRON SUCROSE COMPLEX 400 MG in Normal Saline 250 ML 100 MG IVPB (10:14)
--- NOTE | 2022-11-12 10:58 | W.PM.PROGNOT ---
Date of Service Date of service: 11/12/22 Time of Service: 10:58 Assessment and Plan Assessment and plan (1) Sepsis: Status: Acute Assessment and plan: Status post cystoscopy with right retrograde pyelogram and insertion of right ureteral stent performed 11/09/[address] Alvarez's note he feels the patient should be referred to a tertiary care center for any future surgical intervention. Blood cultures 11/09/2022 showed 1 set positive for Staph hominis and second blood culture has been no grrowth to date. MRSA screen is pending. Urine culture grew mixed gram-negative irving and gram-positive irving. Patient remains on vancomycin pending results of MRSA screen she also remains on meropenem. Given that we have no isolation of the exact causative species leading to her sepsis and emphysematous pyelonephritis I will plan on a 7 day course of antibiotic. she is now d#4 of 7 days meropenem. As her second blood culture did not have any Staph and the initial culture was Staph hominis, this is likely a contaminant. I will check echocardiogram for any vegetation but unlikely. I have discontinued her Vancomycin. Professional time spent interviewing and examining patient, discussion of goals of care with hospital team (care management, nursing and consulting professionals) was 20 minutes. (2) Emphysematous pyelonephritis: Status: Acute Assessment and plan: As above. (3) Hydronephrosis of right kidney: Status: Acute Assessment and plan: Status post cystoscopy ureteroscopy with right retrograde pyelogram and insertion of right ureteral stent. Per Dr. Alvarez's note patient will need to be referred to a tertiary care center for further urologic procedures. (4) Pyuria due to bacterial urinary tract infection: Status: Acute Assessment and plan: As above (5) Microcytic anemia: Status: Acute Assessment and plan: Hemoglobin is up to 8 g now. She still has microcytic indices and has normal B12 and folate levels. But has low iron levels. As the patient has chronic constipation issues requiring an extensive bowel regimen including Linzess I think she would benefit from parenteral iron supplementation rather than oral supplementation. I will order Venofer 400 mg iv tomorrow then 300 mg daily x 2 days. Hb up to 8.1 gm today. (6) IDDM (insulin dependent diabetes mellitus): Assessment and plan: patient on basal/bolus insulin. Glucose is running on the lower side at 100 this morning. I have reduced her lantus from 10 units nightly to 5 units and decreased her sliding scale to insulin sensitive levels of novolog and eliminated her bedtime coverage (7) Gallstones: Status: Acute Assessment and plan: Asymptomatic gallstones. She had a work-up last fall with a negative HIDA scan. We will continue to monitor at this point. (8) Parkinsonism: Status: Acute Assessment and plan: Continue her Sinemet (9) History of stroke: Status: Acute Assessment and plan: Continue antiplatelet therapy with aspirin. I have increased her Prilosec to 40 mg daily given her anemia. (10) Hemiparesis affecting right side as late effect of cerebrovascular accident: Status: Acute (11) Bipolar 1 disorder: Status: Chronic Assessment and plan: Continue her previous dose of Seroquel and her trazodone. (12) Constipation: Status: Chronic Assessment and plan: will change her Senna and Miralax to scheduled doses, patient now having BM. She should be referred back to her GI specialist upon discharge regarding her constipation issues. Qualifiers: Constipation type: unspecified constipation type Qualified Code(s): K59.00 - Constipation, unspecified (13) DVT prophylaxis: Status: Acute Assessment and plan: Low-dose enoxaparin. If she has further worsening of her anemia we will discontinue in favor of SCDs. Subjective Subjective Interval history since last seen: Patient complains of continued abdominal bloating, gas and abdominal discomfort. Repeated KUBs have shown diffuse bowel gas pattern but no obstruction. Patient's been receiving simethicone as well as stool softeners and laxatives. She has been having bowel movements. Explained to her that she needs to follow-up with [place] [facility] She also needs a follow-up with urology upon discharge. She is established w/ Dr. Foster at [facility] in [place]. Exam Narrative Exam Narrative: Ginger is lying in bed, she is alert, oriented x 3, complains of generalized abdominal discomfort, bloating Lungs: clear Heart: regular Abdomen: distended, normal bowel sounds, soft, no rebound tenderness, no involuntary guarding Martinez draining clear yellow urine Objective Last Vital Signs Temp 36.9 C 11/12/22 10:44 Pulse 81 11/12/22 10:44 Resp 22 02/19/23 10:44 BP 105/70 11/12/22 10:44 Pulse Ox 95 11/12/22 10:44 Laboratory Results - last 24 hr 11/11/22 11/12/22 23:04 06:14 Total Bilirubin 0.2 Conjugated Bilirubin 0.1 AST 16 ALT 6 L Alkaline Phosphatase 68 Total Protein 6.3 L Albumin 2.2 L Vancomycin Trough 24.8 H* Time Spent with Patient Time Spent with Patient: <25 minutes Time was spent: preparing to see the patient(eg.review tests), ordering medications,tests, procedures, indepentently interpreting results, counseling the patient and care coordination
[2022-11-12 11:12] LABS: Lab Add On Test COMPLETED
[2022-11-12 11:18] LABS: Anion Gap 7.6 mmol/L (3-11); BUN 8 mg/dL (7-18); CO2 27.4 mmol/L (21.0-32.0); CREATININE 0.6 mg/dL (0.55-1.02); Calcium 9.1 mg/dL (8.5-10.1); Chloride 108 mmol/L (98-107); Estimated GFR 101.42 (mL/min/1.73m2); Glucose 101 mg/dL (74-106); Potassium 3.2 mmol/L (3.5-5.1); Sodium 143 mmol/L (136-145)
[2022-11-12 11:53] LABS: Abs Immature Grans 0.03 10^3/uL (0.0-0.06); Absolute Basophil Count 0.03 10^3/uL (0.0-0.2); Absolute Eosinophil Count 0.17 10^3/uL (0.0-0.7); Absolute Lymphocyte Count 1.49 10^3/uL (1.2-3.4); Absolute Monocyte Count 0.54 10^3/uL (0.1-0.8); Absolute Neutrophil Count 2.81 10^3/uL (1.2-6.7); Basophils % 0.6; Eosinophils % 3.4; HGB 8.1 g/dL (11.2-15.7); Immature Grans % 0.6; Lymphocytes % 29.4; MCH 20.4 pg (27.0-33.0); MCV 75 fL (80-95); MPV 9.6 fL (8.0-11.0); Monocytes % 10.7; Neutrophils % 55.3; Platelet Count 356 10^3/uL (130-400); RBC 3.98 10^6/uL (3.93-5.22); RDW 17.9 % (11.7-14.6); RDW-SD 48.3 fL; WBC 5.07 10^3/uL (4.4-10.8)
[2022-11-12 12:11] LABS: Anisocytosis 1+; Diff Comment RBC Morph Reviewed
[2022-11-12 12:12] LABS: Hypochromasia 2+; Microcytosis 2+; Poikilocytes 1+
[2022-11-12] MEDS: QUEtiapine 50 MG TAB PO (13:12)
[2022-11-12 13:39] LABS: Bilirubin Negative (Negative); Blood Moderate (Negative); Clarity Cloudy (Clear); Glucose >=1000 mg/dL (Negative); Ketones Negative (Negative); Leukocyte Esterase Large (Negative); Nitrite Negative (Negative); Specific Gravity 1.015 (1.005-1.025); Urobilinogen 0.2 mg/dL (Up to 0.2)
[2022-11-12 13:45] LABS: WBC >50 HPF (0-5)
[2022-11-12 13:46] LABS: C & S Indicated? Yes
[2022-11-12] MEDS: Potassium Chloride 10 MEQ CAPCR 40 MEQ PO (17:29)
[2022-11-12] MEDS: Enoxaparin 40 MG/0.4 ML SYR SC (20:39)
[2022-11-12] MEDS: Mirtazapine 15 MG TAB PO (21:02)
[2022-11-12] MEDS: Insulin Glargine 300 UNITS/3 ML PEN SC (21:03)
[2022-11-12] MEDS: Lidocaine Patch Removal 1 EACH TD (21:04)
[2022-11-12] MEDS: rOPINIRole 0.5 MG TAB PO (21:13)
[2022-11-12] MEDS: Senna TAB 2 TAB PO (21:14)
[2022-11-12] MEDS: POTASSIUM CHLORIDE 10 MEQ/100 ML BAG 100 MEQ IVPB (22:16)
[2022-11-13] MEDS: POTASSIUM CHLORIDE 10 MEQ/100 ML BAG 100 MEQ IVPB (00:09)
[2022-11-13] MEDS: Lactated Ringers 1,000 ML 150 ML IV (03:28)
[2022-11-13] MEDS: MEROPENEM 1 GM in Normal Saline 100 ML IVPB ×3 (03:29→20:25)
[2022-11-13 03:40] VITALS: BP 139/85; PULSE 85; RESP 18; TEMP 36.8; O2SAT 95
[2022-11-13] MEDS: Levothyroxine 100 MCG TAB PO (05:34)
[2022-11-13 06:49] LABS: Abs Immature Grans 0.12 10^3/uL (0.0-0.06); Absolute Basophil Count 0.04 10^3/uL (0.0-0.2); Absolute Eosinophil Count 0.22 10^3/uL (0.0-0.7); Absolute Lymphocyte Count 1.24 10^3/uL (1.2-3.4); Absolute Monocyte Count 0.59 10^3/uL (0.1-0.8); Absolute Neutrophil Count 4.43 10^3/uL (1.2-6.7); Basophils % 0.6; Eosinophils % 3.3; HCT 30.6 % (36.0-46.0); HGB 8.1 g/dL (11.2-15.7); Immature Grans % 1.8; Lymphocytes % 18.7; MCH 19.8 pg (27.0-33.0); MCHC 26.5 % (32.0-36.0); MCV 75 fL (80-95); MPV 9.2 fL (8.0-11.0); Monocytes % 8.9; Neutrophils % 66.7; Platelet Count 339 10^3/uL (130-400); RDW 18.4 % (11.7-14.6); RDW-SD 49.1 fL; WBC 6.64 10^3/uL (4.4-10.8)
[2022-11-13 07:24] LABS: Procalcitonin 0.6 ng/mL
[2022-11-13 07:28] LABS: Anion Gap 8.3 mmol/L (3-11); BUN 6 mg/dL (7-18); C-Reactive Protein 7.44 mg/dL (0.0-0.3); CO2 25.7 mmol/L (21.0-32.0); CREATININE 0.6 mg/dL (0.55-1.02); Calcium 8.9 mg/dL (8.5-10.1); Chloride 107 mmol/L (98-107); Estimated GFR 101.42 (mL/min/1.73m2); Glucose 107 mg/dL (74-106); Potassium 3.7 mmol/L (3.5-5.1); Sodium 141 mmol/L (136-145)
[2022-11-13] MEDS: Omeprazole 20 MG CAPCR 40 MG PO (07:30)
[2022-11-13 07:50] VITALS: BP 125/75; PULSE 84; RESP 17; TEMP 36.8; O2SAT 98
--- NOTE | 2022-11-13 08:00 | DI.US_ITS ---
APPROVED REPORT EXAM: Comprehensive 2D, Doppler, and color-flow Echocardiogram Patient Location: In-Patient Room/Bed: [address] [employer] Specialist: Gaviota Wilcox RDCS (AE) Indications: Non-Aureus Staph bacteremia, r/o vegetation, HTN Tachycardia, Parkinsons Other Information Study Quality: Fair. Technically limited study due to body habitus, inability to position patient exa m done supine bedside. Conclusion Normal left ventricular wall thickness and chamber size. Estimated ejection fraction is 55%. Wall m otion is normal Right ventricle and right atrium were not well visualized The left atrium is normal in size No valvular abnormalities were noted of the mitral, aortic or pulmonic structures Tricuspid valve was not well visualized Within the limits of the study no valvular vegetations were noted Wall motion Left Ventricle The left ventricle is normal size. The left ventricular systolic function is normal. The left ventric ular ejection fraction is within the normal range. There is normal left ventricular wall thickness. T here is normal LV segmental wall motion. There is no ventricular septal defect visualized. LVEF is 55 %. Right Ventricle Right ventricle is not well visualized. Right ventricular systolic function could not be assessed. Th e RVSP is 22.8mmHg. Atria The left atrium size is normal. Right atrium is not well visualized. The interatrial septum is intact with no evidence for an atrial septal defect. Aortic Valve The aortic valve is normal in structure. Aortic valve is trileaflet. There is no aortic valvular sten osis. No aortic regurgitation is present. There is no aortic valvular vegetation. Mitral Valve The mitral valve is normal in structure. No evidence of mitral valve stenosis. Trace to mild mitral r egurgitation. There is no evidence of mitral valve vegetations. Tricuspid Valve Tricuspid valve is not well visualized There is no tricuspid valve stenosis. Trace tricuspid regurgit ation. There is no tricuspid valve vegetations. Pulmonic Valve The pulmonary valve is normal in structure. There is no pulmonic valvular stenosis. Trace pulmonic re gurgitation. There is no pulmonic valve vegetations. Great Vessels The aortic root is normal in size. The ascending aorta is normal in size. Aortic arch is normal in ca liber. IVC is normal in size and collapses >50% with inspiration. Pericardium There is no pericardial effusion. 2D Dimensions IVSD d PLAX 0.90 cm F: 0.6-1.0 LV Vol A2C d MOD 77.0 mL LVPW d PLAX 0.90 cm F: 0.6 - 1.0 LV Vol A4C d MOD 95.3 mL LVID d PLAX 4.60 cm F: 3.8 - 5.2 LA vol/ BSA A2C s A-L 23.9 mL/m2 LVDs 3.25 cm F: 2.2 - 3.5 LA vol/ BSA A4C s A-L 23.4 mL/m2 Ao Root d 2.99 cm F: 2.7 - 3.3 LA Vol/ BSA Biplane s A-L 23.8 mL/m2 Ao Asc Diam d 3.00 cm F: 2.3 - 3.1 LA Area A4C s MOD 15.26 cm2 LV EF Teichholz 54.8 % LA Area A2C s MOD 15.52 cm2 LVEF (Roberts's) 54.67 % F: 54 - 74 LV EF A4C MOD 58.2 % LV Volume 66.09 mL F: 46 - 106 LV EF A2C MOD 52.9 % LV Volume Index 35.34 mL/m2 F: 29 - 61 LV EF Biplane MOD 54.7 % LV Vol Biplane MOD 86.0 mL SV 47.03 mL FS 28.35 % SV Index 25.23 mL/m2 M-Mode TAPSE 2.57 cm (M/F) >1.7 LV Diastology MV E' medial 0.097 (>0.07 m/s) E/A Ratio 0.8 LV E/e MED 8.45 (<14) MV E Vmax 0.82 (0.4-1.3 m/s) MV E' lateral 0.086 (>0.1 m/s) MV A Vmax 1.05 (0.4-1.3 m/s) LV E/e LAT 9.55 (<14) MV E/A Ratio 0.77 MV E/E' medial 8.48 MV E/E' lateral 9.57 Aortic Valve LVOT Area 2.71 cm2 AoV Area Vmax 2.15 cm2 LVOT Vmax 1.09 m/s AoV Area/ BSA (Vmax) 1.15 cm2/m2 LVOT Mean Keith. 0.70 m/s SUSANNAH Mean Keith. 2.00 cm2 LVOT Peak Grad 4.7 mmHg SUSANNAH Mean Keith. Index 1.07 cm2/m2 LVOT Mean Grad 2.4 mmHg LVOT VTI 0.200 m LVOT Diam s 1.85 cm AoV Vmax 1.37 m/s Velocity Ratio 0.80 AoV Mean Keith. 0.95 m/s AoV Peak Grad 7.5 mmHg LVOT SV 54.05 mL AoV Mean Grad 4.1 mmHg AoV VTI 0.294 m AoV Area VTI 1.84 cm2 AoV Area/ BSA (VTI) 0.99 cm/m2 Mitral Valve MV DT 258 (160-240 msec) MV PHT 75 msec MV Area PHT 2.94 cm2 MV VTI 0.256 m MV Area VTI 2.11 (4.0-6.0 cm2) Pulmonary Valve PV Vmax 1.00 (0.5-1.5 m/s) RVOT Peak Gr. 1.87 mmHg PV Peak Grad 4.0 mmHg RVOT Mean Gr. 0.90 mmHg PV Mean Grad 2.2 mmHg RVOT VTI 0.149 m PV VTI 0.189 m RVOT Vmax 0.68 m/s Tricuspid Valve TR Peak Grad 19.7 mmHg TR Vmax 2.22 m/s RA Pressure 3.00 mmHg RVSP (TR) 22.8 mmHg
[2022-11-13] MEDS: Insulin Aspart 300 UNITS/3 ML PEN SC ×2 (09:01→13:21)
--- NOTE | 2022-11-13 09:43 | CMPROGNOTE_ITS ---
- If Service Date Differs Date of service: 11/13/22 Time of Service: 09:43 Care Management Progress Note S/O: Ginger is lying in bed when CM met with her. She has a mirror in front of her and just finished applying her face makeup. Ginger is talkative and shares that she had 3 consecutive strokes in a row about 7 years ago and is now bed bound. She's been a resident at the [facility] for the last 5 years and is happy there. Per provider, she will need outpatient urology follow up on discharge a nd is established w/ Dr. Foster at [facility]. Ginger has no questions or concerns at this time. A: 62 year old female admitted to [facility] on 11/09/22 for Sepsis, obstructive uropathy, hydronephrosis P: Ginger resides at the [facility]. She will discharge back to the [facility] when medically ready per provider. She will likely transport via [facility] w/c van, coordinated by CM. She will follow up with facility providers, outpatient Urology and discharge plan of care. CM will continue to follow.
[2022-11-13] MEDS: traZODone 50 MG TAB 25 MG PO ×2 (10:30→20:27)
[2022-11-13] MEDS: lamoTRIgine 25 MG TAB 50 MG PO (10:33)
[2022-11-13] MEDS: Carbidopa 25/Levodopa 100 TAB PO ×4 (10:34→20:27)
[2022-11-13] MEDS: buPROPion-XL 150 MG TABCR PO (10:34)
[2022-11-13] MEDS: Docusate Sodium 100 MG CAP PO ×3 (10:34→20:26)
[2022-11-13] MEDS: Magnesium Oxide 400 MG TAB 800 MG PO (10:34)
[2022-11-13] MEDS: Aspirin E.C. 81 MG TABEC PO (10:34)
[2022-11-13] MEDS: Multivitamin w/Minerals TAB 1 TAB PO (10:35)
[2022-11-13] MEDS: Acetaminophen 500 MG TAB 1000 MG PO ×3 (10:35→20:26)
[2022-11-13] MEDS: Empaglifozin 25 MG TAB PO (10:35)
[2022-11-13] MEDS: QUEtiapine 100 MG TAB PO ×2 (10:35→20:27)
[2022-11-13] MEDS: Vitamins B Comp w/C TAB 1 TAB PO (10:35)
[2022-11-13] MEDS: Cetirizine 10 MG TAB PO (10:35)
[2022-11-13] MEDS: Gabapentin 600 MG TAB 1200 MG PO ×2 (10:35→20:26)
[2022-11-13] MEDS: Polyethylene Glycol 3350 17 GM PACKET PO (10:36)
[2022-11-13] MEDS: Fluticasone NASAL SPRAY 16 GM BTL NS ×2 (10:36→20:24)
[2022-11-13] MEDS: Bisacodyl 10 MG SUPP PR (10:52)
[2022-11-13] MEDS: Diclofenac 1% Gel 100 GM TUBE TP ×2 (10:53→20:24)
[2022-11-13 11:18] VITALS: BP 134/89; PULSE 82; RESP 19; TEMP 36.3; O2SAT 96
[2022-11-13] MEDS: Simethicone 80 MG CHEW 160 MG CH (11:27)
[2022-11-13] MEDS: Lidocaine 5% Patch 1 PATCH TP (12:01)
[2022-11-13] MEDS: IRON SUCROSE COMPLEX 300 MG in Normal Saline 250 ML 167 MG IVPB (13:25)
[2022-11-13] MEDS: QUEtiapine 50 MG TAB PO (14:19)
[2022-11-13 15:41] VITALS: BP 104/57; PULSE 80; RESP 19; TEMP 36.6; O2SAT 97
--- NOTE | 2022-11-13 16:36 | PGE_ITS ---
Date of Service Date of service: 11/13/22 Time of Service: 16:37 Assessment and Plan Assessment and plan (1) Sepsis: Status: Acute Assessment and plan: Status post cystoscopy with right retrograde pyelogram and insertion of right ureteral stent performed 11/09/[address] Alvarez's note he feels the patient should be referred to a tertiary care center for any future surgical intervention. Blood cultures 11/09/2022 showed 1 set positive for Staph hominis and second blood culture has been no grrowth to date. MRSA screen is negative. Urine culture grew mixed gram-negative irving and gram-positive irving. Cont meropenem; day 4/. (2) Emphysematous pyelonephritis: Status: Acute Assessment and plan: As above. (3) Hydronephrosis of right kidney: Status: Acute Assessment and plan: Status post cystoscopy ureteroscopy with right retrograde pyelogram and insertion of right ureteral stent. Per Dr. Alvarez's note patient will need to be referred to a tertiary care center for further urologic procedures. (4) Pyuria due to bacterial urinary tract infection: Status: Acute Assessment and plan: As above (5) Microcytic anemia: Status: Acute Assessment and plan: Hemoglobin is up to 8 g now. She still has microcytic indices and has normal B12 and folate levels. But has low iron levels. As the patient has chronic constipation issues requiring an extensive bowel regimen including Linzess, would benefit from parenteral iron supplementation rather than oral supplementation. Venofer 400 mg iv then 300 mg daily x 2 days. Hb up to 8.1. (6) IDDM (insulin dependent diabetes mellitus): Assessment and plan: Glucose in the 90's to 109. Had reduced her lantus from 10 units nightly to 5 units and decreased her sliding scale to insulin sensitive levels of novolog and eliminated her bedtime coverage. Will hold lantus tonight. (7) Gallstones: Status: Acute Assessment and plan: Asymptomatic gallstones. She had a work-up last fall with a negative HIDA scan. We will continue to monitor at this point. (8) Parkinsonism: Status: Acute Assessment and plan: Continue her Sinemet (9) History of stroke: Status: Acute Assessment and plan: Continue antiplatelet therapy with aspirin. I have increased her Prilosec to 40 mg daily given her anemia. (10) Bipolar 1 disorder: Status: Chronic Assessment and plan: Continue her previous dose of Seroquel and her trazodone. (11) Constipation: Status: Chronic Assessment and plan: will change her Senna and Miralax to scheduled doses, patient now having BM. She should be referred back to her GI specialist upon discharge regarding her constipation issues. Qualifiers: Constipation type: unspecified constipation type Qualified Code(s): K59.00 - Constipation, unspecified (12) DVT prophylaxis: Status: Acute Assessment and plan: Low-dose enoxaparin. If she has further worsening of her anemia we will discontinue in favor of SCDs. Subjective Subjective Patient reports: no new complaints, diarrhea (Chronic) and afebrile; denies blood in stool, nausea, vomiting or shortness of breath Exam Narrative Exam Narrative: Ginger is lying in bed, she is alert, oriented x 3, complains of generalized abdominal discomfort, bloating. This has been essentially chronic. Lungs: clear Heart: regular, S1, S2. Abdomen: distended, normal bowel sounds, soft, no rebound tenderness, no i nvoluntary guarding Martinez draining clear yellow urine Psych: appropriate affect. NOrmal speech. Objective Last Vital Signs Temp 36.6 C 11/13/22 15:41 Pulse 80 11/13/22 15:41 Resp 19 11/13/22 15:41 BP 104/57 L 11/13/22 15:41 Pulse Ox 97 11/13/22 15:41 Laboratory Results - last 24 hr 11/13/22 11/13/22 11/13/22 06:14 06:14 06:14 WBC 6.64 RBC 4.10 Hgb 8.1 L Hct 30.6 L MCV 75 L MCH 19.8 L MCHC 26.5 L RDW 18.4 H Plt Count 339 MPV 9.2 Immature Gran % 1.8 Neutrophils % 66.7 Lymphocytes % 18.7 Monocytes % 8.9 Eosinophils % 3.3 Basophils % 0.6 Nucleated RBC % 0.0 Absolute Neutrophils 4.43 Absolute Lymphocytes 1.24 Absolute Monocytes 0.59 Absolute Eosinophils 0.22 Absolute Basophils 0.04 Sodium 141 Potassium 3.7 Chloride 107 Carbon Dioxide 25.7 Anion Gap 8.3 BUN 6 L Creatinine 0.6 Est GFR (CKD-EPI 2020) 101.42 Glucose 107 H Calcium 8.9 C-Reactive Protein 7.44 H Procalcitonin 0.6 Time Spent with Patient Time Spent with Patient: 25-34 minutes Time was spent: preparing to see the patient(eg.review tests), ordering medications,tests, procedures, indepentently interpreting results and counseling the patient
[2022-11-13 17:30] LABS: Lab Add On Test DONE
[2022-11-13 17:44] LABS: Magnesium 1.4 mg/dL (1.8-2.4)
[2022-11-13 19:36] VITALS: BP 137/85; PULSE 79; RESP 18; TEMP 36.7; O2SAT 99
[2022-11-13] MEDS: Enoxaparin 40 MG/0.4 ML SYR SC (20:25)
[2022-11-13] MEDS: Normal Saline Flush 10 ML SYR IVP ×2 (20:28→20:55)
[2022-11-13] MEDS: Senna TAB 2 TAB PO (21:39)
[2022-11-13] MEDS: Lidocaine Patch Removal 1 EACH TD (21:39)
[2022-11-13] MEDS: Mirtazapine 15 MG TAB PO (21:39)
[2022-11-13] MEDS: rOPINIRole 0.5 MG TAB PO (21:40)
[2022-11-13 23:12] VITALS: BP 135/85; PULSE 78; RESP 18; TEMP 36.7; O2SAT 97
[2022-11-14 03:01] VITALS: BP 135/85; PULSE 78; RESP 18; TEMP 36.8; O2SAT 97
[2022-11-14] MEDS: Lactated Ringers 1,000 ML 150 ML IV ×2 (03:06→09:54)
[2022-11-14] MEDS: MEROPENEM 1 GM in Normal Saline 100 ML IVPB ×3 (03:23→20:12)
[2022-11-14] MEDS: Levothyroxine 100 MCG TAB PO (05:48)
[2022-11-14 07:37] VITALS: BP 130/83; PULSE 85; RESP 19; TEMP 36.8; O2SAT 94
[2022-11-14] MEDS: Insulin Aspart 300 UNITS/3 ML PEN SC (09:55)
[2022-11-14] MEDS: Diclofenac 1% Gel 100 GM TUBE TP ×2 (09:55→20:18)
[2022-11-14] MEDS: Fluticasone NASAL SPRAY 16 GM BTL NS ×2 (10:03→20:16)
[2022-11-14] MEDS: Lidocaine 5% Patch 1 PATCH TP (10:05)
[2022-11-14] MEDS: Carbidopa 25/Levodopa 100 TAB PO ×4 (10:06→20:13)
[2022-11-14] MEDS: lamoTRIgine 25 MG TAB 50 MG PO (10:06)
[2022-11-14] MEDS: Multivitamin w/Minerals TAB 1 TAB PO (10:06)
[2022-11-14] MEDS: traZODone 50 MG TAB 25 MG PO ×2 (10:07→20:13)
[2022-11-14] MEDS: buPROPion-XL 150 MG TABCR PO (10:07)
[2022-11-14] MEDS: Aspirin E.C. 81 MG TABEC PO (10:07)
[2022-11-14] MEDS: Acetaminophen 500 MG TAB 1000 MG PO ×3 (10:07→20:14)
[2022-11-14] MEDS: Omeprazole 20 MG CAPCR 40 MG PO (10:07)
[2022-11-14] MEDS: Vitamins B Comp w/C TAB 1 TAB PO (10:07)
[2022-11-14] MEDS: Cetirizine 10 MG TAB PO (10:08)
[2022-11-14] MEDS: QUEtiapine 100 MG TAB PO ×2 (10:08→20:13)
[2022-11-14] MEDS: Magnesium Oxide 400 MG TAB 800 MG PO (10:08)
[2022-11-14] MEDS: Gabapentin 600 MG TAB 1200 MG PO ×2 (10:08→20:21)
[2022-11-14] MEDS: Empaglifozin 25 MG TAB PO (10:08)
[2022-11-14 11:50] VITALS: BP 158/72; PULSE 76; RESP 17; TEMP 36.2; O2SAT 98
[2022-11-14 14:44] VITALS: BP 137/83; PULSE 83; RESP 17; TEMP 36.4; O2SAT 98
[2022-11-14] MEDS: QUEtiapine 50 MG TAB PO (14:49)
--- NOTE | 2022-11-14 15:00 | PDOC.CMPRO ---
- If Service Date Differs Date of service: 11/14/22 Time of Service: 15:00 Care Management Progress Note S/O: Ginger is being closely monitored and treated. She is on IV ABX, today is day 5 of 7. She will discharge back to the [facility] when ABX are completed, if medically ready. She is lying in bed when CM met with her and tired but talkative. Per provider, she will need an outpatient urology follow up on discharge. She is already established w/ Dr. Foster at [facility]. Ginger has no questions or concerns at this time. A: 62 year old female admitted to [facility] on 11/09/22 for Sepsis, obstructive uropathy, hydronephrosis P: Ginger resides at the [facility]. She will discharge back to the [facility] when medically ready per provider. She will likely transport via [facility] w/c van, coordinated by CM. She will follow up with facility providers, outpatient Urology and discharge plan of care. CM will continue to follow.
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
[2022-11-14 16:18] LABS: C Diff PCR Negative (Negative)
--- NOTE | 2022-11-14 16:48 | PGE_ITS ---
Date of Service Date of service: 11/14/22 Time of Service: 16:54 Assessment and Plan Assessment and plan (1) Sepsis: Status: Acute Assessment and plan: Status post cystoscopy with right retrograde pyelogram and insertion of right ureteral stent performed 11/09/[address] Alvarez's note he feels the patient should be referred to a tertiary care center for any future surgical intervention. Blood cultures 11/09/2022 showed 1 set positive for Staph hominis and second blood culture has been no grrowth to date. MRSA screen is negative. Urine culture grew mixed gram-negative irving and gram-positive irving. Cont meropenem; day 5/7. (2) Emphysematous pyelonephritis: Status: Acute Assessment and plan: As above. (3) Hydronephrosis of right kidney: Status: Acute Assessment and plan: Status post cystoscopy ureteroscopy with right retrograde pyelogram and insertion of right ureteral stent. Per Dr. Alvarez's note patient will need to be referred to a tertiary care center for further urologic procedures. (4) Pyuria due to bacterial urinary tract infection: Status: Acute Assessment and plan: As above (5) Microcytic anemia: Status: Acute Assessment and plan: Hemoglobin is up to 8 g now. She still has microcytic indices and has normal B12 and folate levels. But has low iron levels. As the patient has chronic constipation issues requiring an extensive bowel regimen including Linzess, would benefit from parenteral iron supplementation rather than oral supplementation. Venofer 400 mg iv then 300 mg daily x 2 days. Hb up to 8.1. H/H in AM. (6) IDDM (insulin dependent diabetes mellitus): Assessment and plan: Glucose readings today: 97 > 115 > 108 Had reduced her lantus from 10 units nightly to 5 units and decreased her sliding scale to insulin sensitive levels of novolog and eliminated her bedtime coverage. Holding lantus at this time. (7) Gallstones: Status: Acute Assessment and plan: Asymptomatic gallstones. She had a work-up last fall with a negative HIDA scan. We will continue to monitor at this point. (8) Parkinsonism: Status: Acute Assessment and plan: Continue her Sinemet (9) History of stroke: Status: Acute Assessment and plan: Continue antiplatelet therapy with aspirin. I have increased her Prilosec to 40 mg daily given her anemia. (10) Bipolar 1 disorder: Status: Chronic Assessment and plan: Continue her previous dose of Seroquel and her trazodone. (11) Constipation: Status: Chronic Assessment and plan: will change her Senna and Miralax to scheduled doses, patient now having BM. She should be referred back to her GI specialist upon discharge regarding her constipation issues. She describes a more chronic history of diarrhea but that has not been occurring during this admission. Qualifiers: Constipation type: unspecified constipation type Qualified Code(s): K59.00 - Constipation, unspecified (12) DVT prophylaxis: Status: Acute Assessment and plan: Low-dose enoxaparin. If she has further worsening of her anemia we will discontinue in favor of SCDs. Subjective Subjective Patient reports: no new complaints, no bowel movement and afebrile; denies vomiting Exam Narrative Exam Narrative: Ginger is lying in bed, sleeping with soft snoring. Arouses. Lungs: clear Heart: regular, S1, S2. Abdomen: distended, normal bowel sounds, soft, no rebound tenderness, no invo luntary guarding Martinez draining clear yellow urine Psych: appropriate affect. Normal speech. Objective Last Vital Signs Temp 36.4 C L 11/14/22 14:44 Pulse 83 11/14/22 14:44 Resp 17 11/14/22 14:44 BP 137/83 11/14/22 14:44 Pulse Ox 98 11/14/22 14:44 Laboratory Results - last 24 hr 11/13/22 11/13/22 11/13/22 06:10 06:10 06:10 Magnesium Cancelled 1.4 L Stl C.difficile Tox PCR Add-On Test Request DONE 11/14/22 14:58 Magnesium Stl C.difficile Tox PCR Negative Add-On Test Request Time Spent with Patient Time Spent with Patient: <25 minutes Time was spent: preparing to see the patient(eg.review tests), ordering medications,tests, procedures and indepentently interpreting results
[2022-11-14 19:36] VITALS: BP 111/68; PULSE 87; RESP 17; TEMP 36.8; O2SAT 96
[2022-11-14] MEDS: Normal Saline Flush 10 ML SYR IVP (20:11)
[2022-11-14] MEDS: Enoxaparin 40 MG/0.4 ML SYR SC (20:11)
[2022-11-14] MEDS: Docusate Sodium 100 MG CAP PO (20:13)
[2022-11-14] MEDS: Senna TAB 2 TAB PO (21:43)
[2022-11-14] MEDS: Mirtazapine 15 MG TAB PO (21:43)
[2022-11-14] MEDS: rOPINIRole 0.5 MG TAB PO (21:43)
[2022-11-14] MEDS: Lidocaine Patch Removal 1 EACH TD (21:45)
[2022-11-15] VITALS (8 sets, daily range): BP systolic 104–126; BP diastolic 65–82; PULSE 78–87; RESP 1–19; TEMP 35.5–36.9; O2SAT 95–98
[2022-11-15] MEDS: MEROPENEM 1 GM in Normal Saline 100 ML IVPB ×3 (03:37→20:21)
[2022-11-15] MEDS: Normal Saline Flush 10 ML SYR IVP ×2 (03:37→20:21)
[2022-11-15] MEDS: Levothyroxine 100 MCG TAB PO (05:07)
[2022-11-15 06:18] LABS: HCT 29.9 % (36.0-46.0); HGB 8.1 g/dL (11.2-15.7)
[2022-11-15] MEDS: Simethicone 80 MG CHEW 160 MG CH (08:07)
[2022-11-15] MEDS: Omeprazole 20 MG CAPCR 40 MG PO (08:11)
[2022-11-15] MEDS: Acetaminophen 500 MG TAB 1000 MG PO ×3 (08:12→20:22)
[2022-11-15] MEDS: Aspirin E.C. 81 MG TABEC PO (08:13)
[2022-11-15] MEDS: Multivitamin w/Minerals TAB 1 TAB PO (08:13)
[2022-11-15] MEDS: Empaglifozin 25 MG TAB PO (08:15)
[2022-11-15] MEDS: Magnesium Oxide 400 MG TAB 800 MG PO ×2 (08:15→20:23)
[2022-11-15] MEDS: QUEtiapine 100 MG TAB PO ×2 (08:16→20:23)
[2022-11-15] MEDS: lamoTRIgine 25 MG TAB 50 MG PO (08:16)
[2022-11-15] MEDS: traZODone 50 MG TAB 25 MG PO ×2 (08:17→20:23)
[2022-11-15] MEDS: Carbidopa 25/Levodopa 100 TAB PO ×4 (08:18→20:23)
[2022-11-15] MEDS: buPROPion-XL 150 MG TABCR PO (08:18)
[2022-11-15] MEDS: Gabapentin 600 MG TAB 1200 MG PO ×2 (08:18→20:22)
[2022-11-15] MEDS: Fluticasone NASAL SPRAY 16 GM BTL NS ×2 (08:19→20:20)
[2022-11-15] MEDS: Cetirizine 10 MG TAB PO (08:19)
[2022-11-15] MEDS: Vitamins B Comp w/C TAB 1 TAB PO (08:19)
[2022-11-15] MEDS: Diclofenac 1% Gel 100 GM TUBE TP ×2 (08:20→20:25)
[2022-11-15] MEDS: Insulin Aspart 300 UNITS/3 ML PEN SC ×3 (09:01→17:54)
[2022-11-15] MEDS: Lidocaine 5% Patch 1 PATCH TP (09:58)
[2022-11-15] MEDS: QUEtiapine 50 MG TAB PO (13:07)
--- NOTE | 2022-11-15 14:49 | CMPROGNOTE_ITS ---
- If Service Date Differs Date of service: 11/15/22 Time of Service: 14:49 Care Management Progress Note S/O: Ginger is being closely monitored and treated. She is on IV ABX, today is day 6 of 7. She is lying in bed when CM met with her and much more talkative today. She feels bloated and having a lot of gas. She is very concerned about her bowel regimen. Per pt, she drastically fluctuates between constipation and diarrhea and is quite sure that she is supposed to be getting a suppository daily prescribed by [facility] regardless if she's having diarrhea. Per pt, she is supposed to go to [facility] for an ostomy but the surgery has been delayed because she's had an Cough for over a month. CM reviewed patient and her concerns with Dr. Lea and [facility]. Ginger will discharge back to the [facility] following completion of IV ABX, if medically ready. A: 62 year old female admitted to [facility] on 11/09/22 for Sepsis, obstructive uropathy, hydronephrosis P: Ginger resides at the [facility]. She will discharge back to the [facility] when medically ready per provider. She will likely transport via [facility] w/c lucius cuevas oordinated by NITESH. She will follow up with facility providers, outpatient Urology and discharge plan of care. CM will continue to follow.
[2022-11-15] MEDS: Albuterol/Ipratropium 3 ML UPD VIAL UPD (17:05)
--- NOTE | 2022-11-15 18:18 | W.PM.PROGNOT ---
Date of Service Date of service: 11/15/22 Time of Service: 18:18 Assessment and Plan Assessment and plan (1) Sepsis: Status: Acute Assessment and plan: Status post cystoscopy with right retrograde pyelogram and insertion of right ureteral stent performed 11/09/[address] Alvarez's note he feels the patient should be referred to a tertiary care center for any future surgical intervention. Blood cultures 11/09/2022 showed 1 set positive for Staph hominis and second blood culture has been no grrowth to date. MRSA screen is negative. Urine culture grew mixed gram-negative irving and gram-positive irving. Cont meropenem; day 6/7. (2) Emphysematous pyelonephritis: Status: Acute Assessment and plan: As above. (3) Hydronephrosis of right kidney: Status: Acute Assessment and plan: Status post cystoscopy ureteroscopy with right retrograde pyelogram and insertion of right ureteral stent. Per Dr. Alvarez's note patient will need to be referred to a tertiary care center for further urologic procedures. (4) Pyuria due to bacterial urinary tract infection: Status: Acute Assessment and plan: As above (5) Microcytic anemia: Status: Acute Assessment and plan: Hemoglobin is up to 8.1 g now. She still has microcytic indices and has normal B12 and folate levels. But has low iron levels. As the patient has chronic constipation issues requiring an extensive bowel regimen including Linzess, would benefit from parenteral iron supplementation rather than oral supplementation. Received Venofer 400 mg iv then 300 mg daily x 2 days. (6) IDDM (insulin dependent diabetes mellitus): Assessment and plan: Glucose readings on 11/14: 97 > 115 > 108 Had reduced her lantus from 10 units nightly to 5 units and decreased her sliding scale to insulin sensitive levels of novolog and eliminated her bedtime coverage. Holding lantus at this time. Today, 11/15: 92 > 135 > 99 (7) Gallstones: Status: Acute Assessment and plan: Asymptomatic gallstones. She had a work-up last fall with a negative HIDA scan. We will continue to monitor at this point. (8) Parkinsonism: Status: Acute Assessment and plan: Continue her Sinemet (9) History of stroke: Status: Acute Assessment and plan: Continue antiplatelet therapy with aspirin. I have increased her Prilosec to 40 mg daily given her anemia. (10) Bipolar 1 disorder: Status: Chronic Assessment and plan: Continue her previous dose of Seroquel and her trazodone. (11) Constipation: Status: Chronic Assessment and plan: will change her Senna and Miralax to scheduled doses, patient now having BMs though she feels she should continue a daily suppository. Multiple stools today. She should be referred back to her GI specialist upon discharge regarding her constipation issues. Qualifiers: Constipation type: unspecified constipation type Qualified Code(s): K59.00 - Constipation, unspecified (12) DVT prophylaxis: Status: Acute Assessment and plan: Low-dose enoxaparin. If she has further worsening of her anemia we will discontinue in favor of SCDs. Subjective Subjective Patient reports: no new complaints, flatus (feels bloated and gassy all the time. ) and bowel movement; denies nausea or vomiting Interval history since last seen: Insisting on daily suppository despite having multiple stools daily Exam Narrative Exam Narrative: Ginger is lying in bed, sleeping with soft snoring. Arouses. Lungs: clear Heart: regular, S1, S2. Abdomen: distended, normal bowel sounds, soft, no rebound tenderness, no involuntary guarding Martinez draining clear yellow urine Psych: appropriate affect. Normal speech. Objective Last Vital Signs Temp 36.1 C L 11/15/22 15:35 Pulse 80 11/15/22 15:35 Resp 16 11/15/22 17:05 BP 125/81 11/15/22 15:35 Pulse Ox 97 11/15/22 15:35 Laboratory Results - last 24 hr 11/15/22 05:52 Hgb 8.1 L Hct 29.9 L Time Spent with Patient Time Spent with Patient: <25 minutes Time was spent: preparing to see the patient(eg.review tests), ordering medications,tests, procedures and indepentently interpreting results
[2022-11-15] MEDS: Enoxaparin 40 MG/0.4 ML SYR SC (20:20)
[2022-11-15] MEDS: Docusate Sodium 100 MG CAP PO (20:23)
[2022-11-15] MEDS: Lidocaine Patch Removal 1 EACH TD (21:39)
[2022-11-15] MEDS: Mirtazapine 15 MG TAB PO (21:41)
[2022-11-15] MEDS: rOPINIRole 0.5 MG TAB PO (21:41)
[2022-11-16] MEDS: MEROPENEM 1 GM in Normal Saline 100 ML IVPB (03:32)
[2022-11-16] MEDS: Normal Saline Flush 10 ML SYR IVP (03:36)
[2022-11-16 04:30] VITALS: BP 133/82; PULSE 93; RESP 18; TEMP 36.5; O2SAT 98
[2022-11-16] MEDS: Levothyroxine 100 MCG TAB PO (05:18)
[2022-11-16 06:39] LABS: Magnesium 1.7 mg/dL (1.8-2.4)
[2022-11-16 07:40] VITALS: BP 153/74; PULSE 83; RESP 18; TEMP 36.7; O2SAT 97
[2022-11-16] MEDS: Acetaminophen 500 MG TAB 1000 MG PO (08:43)
[2022-11-16] MEDS: lamoTRIgine 25 MG TAB 50 MG PO (08:44)
[2022-11-16] MEDS: Gabapentin 600 MG TAB 1200 MG PO (08:44)
[2022-11-16] MEDS: Magnesium Oxide 400 MG TAB 800 MG PO ×2 (08:45→09:46)
[2022-11-16] MEDS: Multivitamin w/Minerals TAB 1 TAB PO (08:45)
[2022-11-16] MEDS: buPROPion-XL 150 MG TABCR PO (08:45)
[2022-11-16] MEDS: traZODone 50 MG TAB 25 MG PO (08:46)
[2022-11-16] MEDS: Omeprazole 20 MG CAPCR 40 MG PO (08:46)
[2022-11-16] MEDS: Vitamins B Comp w/C TAB 1 TAB PO (08:47)
[2022-11-16] MEDS: Empaglifozin 25 MG TAB PO (08:48)
[2022-11-16] MEDS: QUEtiapine 100 MG TAB PO (08:48)
[2022-11-16] MEDS: Aspirin E.C. 81 MG TABEC PO (08:48)
[2022-11-16] MEDS: Cetirizine 10 MG TAB PO (08:48)
[2022-11-16] MEDS: Carbidopa 25/Levodopa 100 TAB PO (08:49)
--- NOTE | 2022-11-16 09:43 | W.PM.DS.N ---
Date of service: 11/16/22 Time of Service: 09:44 DS: Diagnosis Discharge Diagnosis (1) Sepsis: Status: Acute Asessment and Plan: Patient presented with signs and symptoms of sepsis including mild hypertension tachycardia with clinical evidence of infection including emphysematous pyelonephritis with obstructive uropathy.? Patient required emergent cystoscopy ureteroscopy and stent placement.? Patient was placed on broad-spectrum antibiotics including Zosyn and vancomycin.? Zosyn was given by the emergency department although the patient gave a history of penicillin allergy.? Patient seems to have tolerated the Zosyn nevertheless she was switched to meropenem which has less cross sensitivity.?? Patient did have a mild lactic acidosis that resolved with treatment.? Continue with IV fluid hydration however given her significant microcytic anemia she was transfused 1 unit of packed red cells. Urine culture grew mixed irving. Blodd cultures were negative. She did complete a 7 day course of meropenem. (2) Emphysematous pyelonephritis: Status: Acute Asessment and Plan: As above (3) Hydronephrosis of right kidney: Status: Acute Asessment and Plan: Status post cystoscopy ureteroscopy with right retrograde pyelogram and insertion of right ureteral stent. Appointment being scheduled at [facility] for f/u with Urology. (4) Pyuria due to bacterial urinary tract infection: Status: Acute Asessment and Plan: As above. (5) Microcytic anemia: Status: Acute Asessment and Plan: She is s/p infusion of Venofer 1 gram total. Hgb stable at 8.1. (6) IDDM (insulin dependent diabetes mellitus): Asessment and Plan: During the course of this hospitalization her diabetes was managed with basal/bolus insulin. She will d/c back to her home routine of Trulicity, Jardian and metformin. (7) Gallstones: Status: Acute Asessment and Plan: No flare of abd pain secondary to gallstones. (8) Parkinsonism: Status: Acute Asessment and Plan: Continue Sinemet. (9) History of stroke: Status: Acute Asessment and Plan: Hemiparesis of right side. (10) Bipolar 1 disorder: Status: Chronic Asessment and Plan: Cont psychiatric meds; seroquel, buproprion, lamictal, mirtazapine and trazadone. (11) Constipation: Status: Chronic Asessment and Plan: Continue linaclotide and bowel regimen. Discharge Plan Disposition Patient Disposition: Residential Facility(SNF) Condition: Improving Discharge Details Reason For Visit: Sepsis,Obstructive Uropathy,Hydronephrosis/Hydrour Admit Date/Time: 11/09/22 16:25 Admit Provider: Jc Jack Attending Provider: Jc Jack Primary Care Provider: Agueda Bingham Hospital Course Hospital Course: 62-year-old female with a history of colitis with history of multiple strokes leaving her with right-sided hemiplegia who has type 2 diabetes mellitus requiring insulin, heart failure with preserved ejection fraction, remote history of staghorn calculus requiring nephrostomy and removal of her renal stone.? Previous renal surgery was at [facility] in [facility].? She presents with severe right flank pain has been going on for the last 3 to 4 days along with subjective feeling of fever and chills.? Evaluation emergency department revealed her to be septic. With mild hypertension systolic pressures in the low 90s to low 100s and tachycardic with a heart rate in the 110s.? She was not hypoxic and she was not febrile on arrival.? Diagnostic work-up performed by the emergency doctor included routine labs including CBC that showed her to be anemic with a white count of 16,000.? Chemistry panel showed elevated BUN/creatinine of 21.1.? Urinalysis showed pyuria with large amount leukocyte Estrace and greater than 50 white cells although rare bacteria.? [id number]-[id number] ultrasound performed by the ED doctor shows she has gallstones and although hydronephrosis was not noted on the [id number] ultrasound renal CT of the abdomen pelvis demonstrated unilateral right-sided hydronephrosis and hydroureter with a small 5 to 6 mm density in the right lower ureter within the pelvis suspicious for calculus.? Ureter was dilated up to 18 mm above the transition point along with air gas in the upper collecting system within the renal pelvis and? infundibulum. Dr. Alvarez was contacted and initially recommended that she be transferred to [facility] where she is known by the urology service at the [facility].? However he [facility] was close to admissions and [facility] was also close to admissions at which point it was decided to admit the patient to [facility] and take her to surgery for cystoscopy and ureteral stent placement.? Patient was given a dose of Zosyn and vancomycin in the emergency department along with IV fluids and analgesics. See Diagnosis Home Meds and New Rx's Prescriptions: Continued trazodone 50 mg tablet 25 mg PO BID metformin 500 mg tablet 1,000 mg PO BID lactase [Lactaid] 3,000 unit tablet 9,000 unit PO TID Rx Instructions: administer with meals and/or snacks simethicone 180 mg capsule 1 cap PO QID PRN docusate sodium [Colace] 100 mg Capsule 100 mg PO .BID, PRN mirtazapine 15 mg Tablet 15 mg PO QHS lamotrigine [Lamictal] 25 mg Tablet 50 mg PO DAILY Qty: 1 0RF quetiapine 100 mg tablet 50 mg PO DAILY Patient Comments: 100 mg BID, 50 mg daily at 2pm polyethylene glycol 3350 [Miralax] 17 gram/dose Powder 17 g PO DAILY PRN aspirin 81 mg Tablet,Delayed Release (Dr/Ec) 81 mg PO DAILY bupropion HCl 150 mg tablet extended release 24 hr 150 mg PO QAM cetirizine 10 mg Tablet 10 mg PO QAM linaclotide 145 mcg Capsule 145 mcg PO DAILY magnesium oxide 400 mg magnesium Tablet 800 mg PO DAILY acetaminophen 500 mg Tablet 500 mg PO BID diclofenac sodium 1 % Gel 1 applic TOPICAL BID fluticasone propionate [Flonase Allergy Relief] 50 mcg/actuation [place],Suspension 1 spray INTRANASAL BID gabapentin 600 mg tablet 2 tab PO BID quetiapine 100 mg Tablet 100 mg PO BID sennosides 8.6 mg Tablet 17.2 mg PO HS PRN albuterol sulfate [Ventolin HFA] 90 mcg/actuation HFA aerosol inhaler 2 inh INHALATION TID Jardiance 25 mg tablet 1 tab PO DAILY Trulicity 1.5 mg/0.5 mL pen injector 1 device SUBCUT DIRECTED Rx Instructions: weekly levothyroxine 100 mcg Tablet 100 mcg PO DAILY lpwxqawqmvpev-NE-qqzbsawwjfm 5-10-100 mg/5 mL Liquid 10 ml PO Q4H PRN omeprazole 20 mg Capsule,Delayed Release(Dr/Ec) 20 mg PO DAILY carbidopa-levodopa 25-100 mg Tablet 1 tab PO QID Centrum Complete 18-400 mg-mcg Tablet 1 tab PO DAILY ropinirole 0.5 mg Tablet 0.5 mg PO QHS Rx Instructions: administer 1-3 hours before bedtime No Action bisacodyl 10 mg suppository 10 mg CA ONCE PRN B-complex with vitamin C [Vitamin B and C] Capsule 1 cap PO DAILY Discharge Instructions Stand Alone Forms: Nursing Discharge Form Referrals: Reji Foster [ NON-[facility] STAFF PHYSICIAN] - (F/U of ureteral stent in place. ) Activity:: Bedbound Equipment/Supplies:: No Equipment Needed Diet:: Resume usual home diet;carb controlled Discharge Orders Discharge Orders: Discharge Order (Routine); Ordered 11/16/22 Ordered By: Scott Lea DS: Summary Time Spent with Patient providing and/or coordinating discharge services: Greater than 30 minutes Status at Discharge Functional status at discharge: bed bound Overall status at discharge: patient is back to baseline Mental Status: mental status grossly normal Speech and Movement: speech clear Mood: congruent mood Affect: normal affect Exam Narrative Exam Narrative: Ginger is lying in bed. Nontoxic appearing. Lungs: clear Heart: regular, S1, S2. Abdomen: distended, normal bowel sounds, soft, no rebound tenderness, no involuntary guarding Lozada draining clear yellow urine Psych: appropriate affect. Normal speech. Psych Mental Status: mental status grossly normal Speech and Movement: speech clear Mood: congruent mood Affect: normal affect DS: Data Vitals/I&O Vitals and I&O: Vital Signs Temperature 36.7 C 11/16/22 07:40 Temperature Source Tympanic 11/16/22 07:40 Pulse 83 11/16/22 07:40 Pulse Rhythm Regular 11/16/22 00:32 Pulse 99 H 11/10/22 00:00 Respiratory Rate 18 11/16/22 07:40 Respiratory Effort Normal, Non-Labored 11/16/22 00:32 Respiratory Depth Normal 11/16/22 00:32 Respiratory Pattern Normal 11/16/22 00:32 Blood Pressure 153/74 H 11/16/22 07:40 Blood Pressure Mean 77 11/10/22 14:18 Blood Pressure Position Supine 11/10/22 14:18 Pulse Oximetry 97 11/16/22 07:40 Respiratory End-tidal CO2 51 11/10/22 00:00 Oxygen Delivery Method Room Air 11/16/22 07:40 Oxygen Flow Rate 0 11/16/22 07:40 Pain Level 0 11/16/22 07:40 Comment Pt. complaining of ...sharp and shooting pelvic pain. Pt. states, This is new for me. I know it might just be gas, but I'd still like some answers about where the gas is coming from. I need to speak with the doctor. Pt. informed that she was recently medicated for gas and for pain per the MAR. Charge nurse notified of pt.'s request. 11/12/22 09:30 Intake & Output 11/15/22 11/15/22 11/16/22 11:59 23:59 11:59 Intake Total 560 / 1120 560 / 1120 100 / 100 Output Total 2050 / 3475 1425 / 3475 500 / 500 Balance -1490 / -2355 -865 / -2355 -400 / -400 Weight 82.4 kg Intake: IV 200 / 400 200 / 400 100 / 100 Oral 360 / 720 360 / 720 Output: Urine 0 / 3475 1425 / 3475 500 / 500 Other: Urine Color Yellow Yellow Yellow Urine Appearance Cloudy Clear Cloudy Urine Odor None Comment bright yellow Pt's lozada had leaked and pad was saturated in a good amount. cath leaking at this time, RN notified Stool Size Moderate Large Moderate Stool Characteristics Soft Soft Liquid Formed Mucoid Liquid Brown Voiding Methods Indwelling Catheter Indwelling Catheter Data Completed and Pending Labs on day of discharge: Labs from last 24 hours 11/16/22 11/16/22 09:39 05:50 Magnesium 1.7 L COVID-19 Source Pending SARS-CoV-2 (PCR) Pending Preliminary micro results at discharge 11/11/22 10:00 Blood Culture - Preliminary Blood NO GROWTH 96 HOURS 11/11/22 09:49 Blood Culture - Preliminary Blood NO GROWTH 96 HOURS PFSH All Active Problems Microcytic anemia (Acute) Sepsis (Acute) Emphysematous pyelonephritis (Acute) Pyuria due to bacterial urinary tract infection (Acute) Hydronephrosis of right kidney (Acute) Leukocytosis (Acute) Acute kidney injury (Acute) Gallstones (Acute) Arthritis of left shoulder region (Acute) Cough (Acute) Ileus (Acute) Tardive dyskinesia (Acute) Parkinsonism (Acute) History of stroke (Acute) Chronic chest pain (Chronic) Discharge planning issues (Acute) DVT prophylaxis (Acute) Constipation (Chronic) Bipolar 1 disorder (Chronic) Bipolar affective disorder, current episode depressed (Acute) rule out bipolar disorder reported by patient. Antiepileptics maybe preventing manic episode. Major depressive disorder, recurrent, severe with psychotic features (Acute) Current presentation is depression. She may have bipolar affective disorder. Ambulatory dysfunction (Chronic) Hemiparesis affecting right side as late effect of cerebrovascular accident (Acute) Dysphagia as late effect of cerebrovascular accident (CVA) (Chronic) Dysarthria as late effect of cerebrovascular accident (CVA) (Acute) Aphasia as late effect of cerebrovascular accident (Acute) Neck pain (Acute) Autoimmune disorder (Acute) Medical History [place] (acute kidney injury) Anxiety Bipolar 1 disorder Cholelithiasis with acute cholecystitis s/p cholecystostomy and stone extraction in 2014 ([facility]), tube now pulled. 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 Complicated UTI (urinary tract infection) Diverticulosis Hemiparesis affecting right side as late effect of cerebrovascular accident (CVA) Hepatitis C History of multiple cerebrovascular accidents (CVAs) Hypertension Hypothyroidism IDDM (insulin dependent diabetes mellitus) Left rotator cuff tear Lumbar disc disease Nephrolithiasis Neurogenic bladder Obesity (BMI 30.0-34.9) Palliative care encounter Septic shock Staghorn calculus Static encephalopathy Steroid dependent Uterine mass likely a fibroid UTI (urinary tract infection) Surgical History Abnormal cholangiogram H/O cervical spine surgery H/O foot surgery H/O wrist surgery History of extraction of renal calculus 12/13/2018 - [facility] History of hip surgery right History of lumbosacral spine surgery S/P cystoscopy with ureteral stent placement [facility] 11/2018 Status post creation of urethral sling by suprapubic approach Family History Mother Stroke Social History Smoking/Tobacco Use Status: Former Tobacco Use Smoking risk assessment performed?: Yes Alcohol Intake: former Substance use type: former substance user and IV drugs Housing: longterm Number of Children: 5 Education Level: elementary school Details: 6th grade, special ed, left school age 16. Current gender identity: female What is your relationship status?: Panel score (0-1 are the most socially isolated patients): 0 What type of physical activity do you participate in: none Do you feel safe at home: Yes Do you feel safe in your relationship?: Yes Time Spent with Patient Time Spent with Patient: <45 minutes Time was spent: preparing to see the patient(eg.review tests), referring, communicating with other health healthcare administrative assistant, indepentently interpreting results and care coordination
[2022-11-16] MEDS: Diclofenac 1% Gel 100 GM TUBE TP (09:45)
[2022-11-16] MEDS: Fluticasone NASAL SPRAY 16 GM BTL NS (09:46)
[2022-11-16] MEDS: Lidocaine 5% Patch 1 PATCH TP (09:52)
[2022-11-16 09:59] LABS: Source Nasal/Nares
--- NOTE | 2022-11-16 10:22 | CMDISCH_ITS ---
- If Service Date Differs Date of service: 11/16/22 Time of Service: 10:22 LACE Index Scoring Tool - Questions: Length of Stay (in days): 7 - 13 Acuity (Admit via E.D.?): Yes Comorbidities: Cerebrovascular Disease (HX multiple CVA's) E.D. Visits: 3 - Answers: Total Score: 12 Risk of Readmission: High Risk Care Management Discharge Reason for Hospitalization: Sepsis, obstructive uropathy, hydronephrosis Discharge Plan: Ginger is discharged back to the [facility] via EMS. She will follow up with facility providers, Specialists and discharge plan of care as prescribed. Patient/Family Education Needs: Review discharge instructions, limitations, medications and plan to follow up with facility providers and specialists. Discuss ask me three. Services Needed at Discharge: [facility] Facility (Back to [facility] for LTC[facility] Transportation (EMS, coordinated by CM)
--- NOTE | 2022-11-16 10:30 | NUR.NOTE ---
Nursing Note: Terlephone SBAR delivered to XIOMARA Mandel at the [facility]. Pt scheduled to be picked up at 11:00 am.
[2022-11-16 10:33] LABS: COVID-19 PCR Negative (Negative)
--- NOTE | 2022-11-16 10:44 | CHAPLAIN ---
Ginger was sitting up in bed putting on eye makeup. She said she is being discharged to the [facility] at 11 a.m. Ginger has been at the [facility] for five years. She said she has developed a friendship with two LNAs, and otherwise doesn't have an family members of friends who visit her. She is Confucianism, and her bertram is very important to her. Today she sang a song for me that she said God put in my head this morning.
== END 2022-11-16 11:24 | disposition skilled nursing facility (03) | DRG 872 ==
LOC: ER 17:08 → ICU 19:01 → ER 11-10 10:16 → SUR 11-10 10:16 → ICU 11-10 10:18 → MS 11-10 14:49
PROVIDERS: Family Medicine; Nurse Practitioner Family; Urology; Admitting Provider Internal Medicine; Emergency Provider Emergency Medicine; PCP Family Medicine; Visit Provider Internal Medicine
PROC: 0T9680Z Drainage of Right Ureter with Drainage Device, Via Natural or Artificial Opening Endoscopic (ICD-10-PCS; CPT 52332; principal; 2022-11-09 16:50)
DX: A41.9 Sepsis, unspecified organism (principal); N13.6 Pyonephrosis; I69.351 Hemiplegia and hemiparesis following cerebral infarction affecting right dominant side; N17.9 Acute kidney failure, unspecified; Z79.84 Long term (current) use of oral hypoglycemic drugs; Z66 Do not resuscitate; E11.9 Type 2 diabetes mellitus without complications; K74.60 Unspecified cirrhosis of liver; I69.391 Dysphagia following cerebral infarction; R13.10 Dysphagia, unspecified; I69.322 Dysarthria following cerebral infarction; D89.89 Other specified disorders involving the immune mechanism, not elsewhere classified; G20 Parkinson's disease; G24.01 Drug induced subacute dyskinesia; I77.6 Arteritis, unspecified; F41.9 Anxiety disorder, unspecified; E03.9 Hypothyroidism, unspecified; I10 Essential (primary) hypertension; Z79.4 Long term (current) use of insulin; N31.9 Neuromuscular dysfunction of bladder, unspecified; D50.9 Iron deficiency anemia, unspecified; K80.20 Calculus of gallbladder without cholecystitis without obstruction; F31.9 Bipolar disorder, unspecified; K59.00 Constipation, unspecified
CPT/HCPCS: 52332; 36415; 36430; 76705; 76775; 80048; 80053; 80076; 82805; 83690; 84145; 85027; 86850; 86900; 86901; 86920; 86945; 87040; 87077; 87081; 87493; 87635; 96361; 96365; 96367; 96375; 99285; J1650; 74018; 74177; 74420; 80202; 81003; 81015; 82270; 82728; 83036; 83540; 83550; 83605; 83630; 83735; 85014; 85018; 85025; 86140; 87086; 87186; 93306; 94640; 99223; 99231; 99232; 99239; J1756; J2270; J2704; J3010; J3480; J3490; J7613; J7620; P9016; Q9967

== ENCOUNTER 2022-11-20 11:47 | Inpatient (IN) | payer MEDICAID, SELFPAY ==
[2022-11-20] VITALS (113 sets, daily range): BP systolic 51–138; BP diastolic 25–71; PULSE 80–127; RESP 10–31; TEMP 36.6–37.1; O2SAT 87–98
--- NOTE | 2022-11-20 12:15 | DI.CT_ITS ---
Exam(s) CT ABDOMEN PELVIS WO EXAM: CT ABDOMEN PELVIS WO CLINICAL HISTORY: worsening abd pain, stent, pyelo. TECHNIQUE: Imaging Protocol: Axial computed tomography images with coronal and sagittal reformatted images were created and reviewed. COMPARISON: CT CT ABDOMEN PELVIS W from 11/09/2022 FINDINGS: ABDOMEN: Lung Bases: Normal where visualized. Liver: Normal density. No measurable mass. Gallbladder and biliary tract: No radiodense calculus or biliary ductal dilation. Pancreas: Normal density, no abnormal calcifications or inflammatory process. Spleen: Normal. Kidneys: Normal size, contour and axis.There has been interval placement of a nephroureteral stent on the right. No stones are seen along the right ureter. There is no hydronephrosis. There is a 2 mm nonobstructing stone in the right kidney. No masses seen. Adrenal glands: No mass is seen. Lymph nodes: Within normal limits. Abdominal Aorta: Abdominal portion non-dilated. Atherosclerosis is present. PELVIS: Bladder:There is a Martinez catheter in a decompressed urinary bladder. There is air seen within the bl adder and the right renal collecting system likely secondary to recent instrumentation. Bowel: There is mild thickening of the wall of the sigmoid colon and rectum. There is no evidence of bowel obstruction. There are few scattered colonic diverticula but no evidence of acute diverticuli tis. There is no evidence of appendicitis. Peritoneal cavity: There is a trace amount of perihepatic ascites. No free air. Reproductive organs: There again seen a lobulated uterus which may reflect uterine fibroids. Bones: Within normal limits. Soft Tissues: There is again seen mild infiltration of the soft tissues inferior to the liver. IMPRESSION: 1. Status post placement of a right nephroureteral stent. No stones are seen along the course of the ureter. No hydronephrosis is present. 2. Right nephrolithiasis. 3. Stable trace amount of perihepatic ascites and infiltration of the fat inferior to the liver. 4. Unchanged thickening of the wall of the distal sigmoid colon and rectum. Colitis/proctitis may be considered. 5. Findings were discussed with Lesa Thomas at 2 p.m. on 11/20/2022. RADIATION DOSE DELIVERED: 1,378.33mGy.cm Total DLP DATA REPOSITORY: All CT scans at this facility are submitted to the National Radiology Data Registry (NRDR) Dose Index Registry (DIR) with the [employer] (ACR). RADIATION OPTIMIZATION: All CT scans at this facility use at least one of these dose optimization te chniques: automated exposure control; mA and/or kV adjustment per patient size (includes targeted exa ms where dose is matched to clinical indication); or iterative reconstruction.
[2022-11-20 12:27] LABS: Bilirubin Negative (Negative); Blood Moderate (Negative); Clarity Cloudy (Clear); Glucose 500 mg/dL (Negative); Ketones Negative (Negative); Leukocyte Esterase Large (Negative); Nitrite Negative (Negative); Specific Gravity 1.015 (1.005-1.025); Urobilinogen 0.2 mg/dL (Up to 0.2)
--- NOTE | 2022-11-20 12:30 | RT.EKG_ITS ---
APPROVED REPORT Exam: Resting ECG Reason for Exam: weakness Patient Location: E HR:87 bpm ECG Measurements Heart Rate 87 AXIS MD 150 P 58 QRSd 95 QRS 19 QT 381 T 73 QTc 458 Conclusion Sinus rhythm...normal P axis, V-rate 60- 99 Probable left atrial enlargement...P >50mS, <-0.10mV V1 Narrow complex normal sinus rhythm at a rate of 87. Normal axis. Intervals within normal limits. T wave flattening in leads aVL and lead III appears similar to prior dated last year. No acute injury pattern.
[2022-11-20 12:35] LABS: Bacteria Rare HPF (Negative); C & S Indicated? Yes; Casts 0-2 Hyaline LPF (Negative); Crystals Negative HPF (Negative); Epithelial Cells Rare HPF (Negative); Mucus Negative (Negative); Other Cells Rare Yeast (Negative); WBC >50 HPF (0-5)
--- NOTE | 2022-11-20 12:44 | W.ED.GENAD ---
Discharge Plan Discharge Details Chief Complaint: Abd Prob Admit Date/Time: 11/20/22 15:26 Admit Provider: Yojana Osoiro Attending Provider: Yojana Osorio Primary Care Provider: Agueda Bingham ED Provider: Lesa Thomas Discharge Data Discharge Date/Time-TO BE ENTERED AT DEPARTURE: 11/20/22 23:20 Medical Decision Making This 62-year-old female presents with right flank pain which became worse yesterday. She had 1 episode of nausea and vomiting She denies any fever or chills. She states she feels generally weak. She has complex medical history with recent ureteral stent placement secondary to emphysematous pyelonephritis and ureterolithiasis Secondary to hypotension and recent admission, CT abdomen pelvis was ordered, CT does not show evidence of acute abnormality with stent in appropriate placement, case was discussed with Dr. Alvarez as patient has greater than 50 red blood cells with indwelling Martinez catheter which will be changed for suspected pyelonephritis Patient has been alert and oriented, she is been answering questions appropriately Interestingly every time she is in the hospital her blood pressure when she is ill is typically low and she is hypotensive, this is not her baseline but I am wondering if perhaps this is an adrenal component with her autoimmune disease I will try 100 mg of hydrocortisone She has received 2 L of fluid, 1 of LR and the second NS secondary to receiving ceftriaxone Have low special suspicion that this is septic shock She was initially fluid responsive and is maintaining her pressures in the low 90s at this time She will need admission to the hospital for IV antibiotics and monitoring with reassessment Dr. Osorio was involved in the care of this patient is agreeable to admit her to this facility I spent approximately 45 minutes reviewing patient's prior documentation, cystoscopy results, speaking with specialist, and admitting this patient Medical Records Medical records reviewed: Yes I reviewed the patient's medical records. Lab Data Lab results reviewed: Yes I reviewed the patient's lab results. HPI General Date/Time Provider Initiated Documentation: 11/20/22 12:13. HPI Narrative: This 62-year-old female with recent urinary stent placed secondary to pyelonephritis and ureterolithiasis. Patient states that she started having some pain on her right flank which started yesterday. She is nauseous without vomiting. Denies any chest pain or shortness of breath. She also feels like her Martinez catheter is leaking. She denies current antibiotics. Related Data Home Medications Medication Instructions Recorded Confirmed docusate sodium 100 mg capsule 100 mg PO .BID, PRN 03/26/20 11/20/22 (Colace) mirtazapine 15 mg tablet 15 mg PO QHS 03/26/20 11/20/22 lamotrigine 25 mg tablet (Lamictal) 50 mg PO DAILY #1 tab 04/08/20 11/20/22 polyethylene glycol 3350 17 17 g PO DAILY PRN 04/19/20 11/20/22 gram/dose oral powder (Miralax) trazodone 50 mg tablet 25 mg PO BID 07/07/20 11/20/22 bisacodyl 10 mg rectal suppository 10 mg RI ONCE PRN 08/17/20 11/20/22 metformin 500 mg tablet 1,000 mg PO BID 12/20/20 11/20/22 lactase 3,000 unit tablet (Lactaid) 9,000 unit PO TID 06/22/21 11/20/22 quetiapine 100 mg tablet 50 mg PO DAILY 06/22/21 11/20/22 acetaminophen 500 mg tablet 500 mg PO BID 06/01/22 11/20/22 albuterol sulfate 90 mcg/actuation 2 inh inhalation TID 06/01/22 11/20/22 aerosol inhaler (Ventolin HFA) aspirin 81 mg tablet,delayed 81 mg PO DAILY 06/01/22 11/20/22 release bupropion HCl 150 mg 24 hr tablet, 150 mg PO QAM 06/01/22 11/20/22 extended release cetirizine 10 mg tablet 10 mg PO QAM 06/01/22 11/20/22 diclofenac sodium 1 % topical gel 1 applic topical BID 06/01/22 11/20/22 dulaglutide 1.5 mg/0.5 mL 1 device subcut DIRECTED 06/01/22 11/20/22 subcutaneous pen injector (Trulicity) empagliflozin 25 mg tablet 1 tab PO DAILY 06/01/22 11/20/22 (Jardiance) fluticasone propionate 50 1 spray intranasal BID 06/01/22 11/20/22 mcg/actuation nasal spray,suspension (Flonase Allergy Relief) gabapentin 600 mg tablet 2 tab PO BID 06/01/22 11/20/22 linaclotide 145 mcg capsule 145 mcg PO DAILY 06/01/22 11/20/22 magnesium oxide 800 mg PO DAILY 06/01/22 11/20/22 quetiapine 100 mg tablet 100 mg PO BID 06/01/22 11/20/22 sennosides 8.6 mg tablet 17.2 mg PO HS PRN 06/01/22 11/20/22 simethicone 180 mg capsule 1 cap PO QID PRN 06/13/22 11/20/22 B-complex with vitamin C 1 cap PO DAILY 11/09/22 11/20/22 carbidopa 25 mg-levodopa 100 mg 1 tab PO QID 11/09/22 11/20/22 tablet levothyroxine 100 mcg tablet 100 mcg PO DAILY 11/09/22 11/20/22 multivitamin-ferrous 1 tab PO DAILY 11/09/22 11/20/22 fumarate-folic acid 18 mg-400 mcg tablet (Centrum Complete) omeprazole 20 mg capsule,delayed 20 mg PO DAILY 11/09/22 11/20/22 release vbvwjwvsoyhxm-YA-boivhnqzhax 5 10 ml PO Q4H PRN 11/09/22 11/20/22 mg-10 mg-100 mg/5 mL oral liquid ropinirole 0.5 mg tablet 0.5 mg PO QHS 11/09/22 11/20/22 Previous Rx's Medication Instructions Recorded lamotrigine 25 mg tablet (Lamictal) 50 mg PO DAILY #1 tab 04/08/20 Allergies Allergy/AdvReac Type Severity Reaction Status Date / Time naproxen [From Aleve] Allergy Unknown Itching Unverified 11/20/22 11:56 Penicillins Allergy Unknown Itching Unverified 11/20/22 11:56 propoxyphene Allergy Unknown Itching Unverified 11/20/22 11:56 Sulfa (Sulfonamide Allergy Unknown Itching Unverified 11/20/22 11:56 Antibiotics) methadone Allergy Verified 11/20/22 11:56 General Stated Complaint: Abd Prob RUBENS: 3 PFSH All Active Problems (Updated 11/21/22 @ 18:46 by Yojana Osorio MD) Abdominal pain (Acute) DVT prophylaxis (Acute) Pyelonephritis (Acute) Microcytic anemia (Acute) Emphysematous pyelonephritis (Acute) Pyuria due to bacterial urinary tract infection (Acute) Hydronephrosis of right kidney (Acute) Gallstones (Acute) Arthritis of left shoulder region (Acute) Cough (Acute) Ileus (Acute) Tardive dyskinesia (Acute) Parkinsonism (Acute) History of stroke (Acute) Chronic chest pain (Chronic) Discharge planning issues (Acute) Constipation (Chronic) Bipolar 1 disorder (Chronic) Bipolar affective disorder, current episode depressed (Acute) rule out bipolar disorder reported by patient. Antiepileptics maybe preventing manic episode. Major depressive disorder, recurrent, severe with psychotic features (Acute) Current presentation is depression. She may have bipolar affective disorder. Ambulatory dysfunction (Chronic) Hemiparesis affecting right side as late effect of cerebrovascular accident (Acute) Dysphagia as late effect of cerebrovascular accident (CVA) (Chronic) Dysarthria as late effect of cerebrovascular accident (CVA) (Acute) Aphasia as late effect of cerebrovascular accident (Acute) Neck pain (Acute) Autoimmune disorder (Acute) Medical History DALTON (acute kidney injury) Anxiety Bipolar 1 disorder Cholelithiasis with acute cholecystitis s/p cholecystostomy and stone extraction in 2014 ([facility]), tube now pulled. 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 Complicated UTI (urinary tract infection) Diverticulosis Hemiparesis affecting right side as late effect of cerebrovascular accident (CVA) Hepatitis C History of multiple cerebrovascular accidents (CVAs) Hypertension Hypothyroidism IDDM (insulin dependent diabetes mellitus) Left rotator cuff tear Lumbar disc disease Nephrolithiasis Neurogenic bladder Obesity (BMI 30.0-34.9) Palliative care encounter Septic shock Staghorn calculus Static encephalopathy Steroid dependent Uterine mass likely a fibroid UTI (urinary tract infection) Surgical History Abnormal cholangiogram H/O cervical spine surgery H/O foot surgery H/O wrist surgery History of extraction of renal calculus 12/13/2018 - [facility] History of hip surgery right History of lumbosacral spine surgery S/P cystoscopy with ureteral stent placement [facility] 11/2018 Status post creation of urethral sling by suprapubic approach Family History Mother Stroke Social History Smoking/Tobacco Use Status: Former Tobacco Use Smoking risk assessment performed?: Yes Alcohol Intake: former Substance use type: former substance user and IV drugs Housing: care home Number of Children: 5 Education Level: elementary school Details: 6th grade, special ed, left school age 16. Current gender identity: female What is your relationship status?: Panel score (0-1 are the most socially isolated patients): 0 What type of physical activity do you participate in: none Do you feel safe at home: Yes Do you feel safe in your relationship?: Yes Exam Const General: cooperative and ill appearing Orientation: alert and oriented x3 HENMT Head: normal to inspection Resp Effort & Inspection: normal respiratory effort Cardio Rate: regular rate Rhythm: regular rhythm Skin General skin exam: no rashes or lesions noted Neuro General: patient alert and patient oriented x3 Extrem Other: Distal pulses intact Course Vital Signs Vital signs: Vital Signs Temperature 36.9 C 11/20/22 11:48 Pulse 92 H 11/20/22 11:48 Respiratory Rate 17 11/20/22 11:48 Blood Pressure 99/58 L 11/20/22 11:48 Pulse Oximetry 96 11/20/22 11:48 Temperature 36.9 C 11/20/22 11:48 Temperature Source Oral 11/20/22 11:48 Pulse 92 H 11/20/22 11:48 Respiratory Rate 17 11/20/22 11:48 Respiratory Effort Normal 11/20/22 11:54 Blood Pressure 99/58 L 11/20/22 11:48 Blood Pressure Position Supine 11/20/22 11:48 Pulse Oximetry 96 11/20/22 11:48 Oxygen Delivery Method Room Air 11/20/22 11:48 Oxygen Flow Rate 0 11/20/22 11:48 Pain Level 8 11/20/22 11:48 Lab/Test Results Lab/Test Results: 11/20/22 12:19 Urine - Reflex from Ua Urine Culture - Pending 11/20/22 12:24 Blood Blood Culture - Pending 11/20/22 12:24 Blood Blood Culture - Pending Laboratory Tests Range/Units 11/20/22 12:19 Urine Color (Yellow) Yellow Urine Clarity (Clear) Cloudy Urine pH (5-8) 7.0 Ur Specific [place] (1.005-1.025) 1.015 Urine Protein (Negative) mg/dL 100 H Urine Ketones (Negative) mg/dL Negative Urine Blood (Negative) Moderate H Urine Nitrite (Negative) Negative Urine Bilirubin (Negative) Negative Urine Urobilinogen (Up to 0.2) mg/dL 0.2 Ur Leukocyte Esterase (Negative) Large H Urine RBC (0-2) HPF 10-20 H Urine WBC (0-5) HPF >50 H Ur Epithelial Cells (Negative) HPF Rare Urine Crystals (Negative) HPF Negative Urine Bacteria (Negative) HPF Rare Urine Casts (Negative) LPF 0-2 Hyaline Urine Mucus (Negative) Negative Urine Other (Negative) Rare Yeast Ur Culture Indicated? Yes Urine Glucose (Negative) mg/dL 500 H Critical Care Time Critical Care Time Critical Care Time: Yes Total Critical Care Time: 45 Attestation: Approximately 45 minutes of critical care time were performed secondary to acute hypotension, with IV steroid administration, diagnostic imaging interpretation, diagnostic lab interpretation IV fluid resuscitation, IV antibiotics, telemetry monitoring and ultimately admission to the intensive care unit
[2022-11-20] MEDS: Normal Saline 1,000 ML 1000 ML IV (12:46)
[2022-11-20 12:50] LABS: Abs Immature Grans 0.04 10^3/uL (0.0-0.06); Absolute Basophil Count 0.02 10^3/uL (0.0-0.2); Absolute Eosinophil Count 0.12 10^3/uL (0.0-0.7); Absolute Lymphocyte Count 2.09 10^3/uL (1.2-3.4); Basophils % 0.2; Immature Grans % 0.3; Lymphocytes % 17.8; MCH 21.3 pg (27.0-33.0); MCHC 27.3 % (32.0-36.0); MCV 78 fL (80-95); MPV 9.2 fL (8.0-11.0); Monocytes % 5.1; Neutrophils % 75.6; Platelet Count 439 10^3/uL (130-400); RBC 4.23 10^6/uL (3.93-5.22); RDW 23.5 % (11.7-14.6); RDW-SD 49.7 fL; WBC 11.74 10^3/uL (4.4-10.8)
[2022-11-20 12:51] LABS: Absolute Neutrophil Count 8.88 10^3/uL (1.2-6.7)
[2022-11-20 12:58] LABS: Anisocytosis 2+; Diff Comment RBC Morph Reviewed; Hypochromasia 1+
[2022-11-20 13:12] LABS: ALT 9 U/L (14-59); AST 38 U/L (15-37); Albumin 3.2 g/dL (3.4-5.0); Alkaline Phosphatase 85 U/L (46-116); Anion Gap 6.3 mmol/L (3-11); BUN 10 mg/dL (7-18); Bilirubin, Total 0.4 mg/dL (0.2-1.0); CO2 29.7 mmol/L (21.0-32.0); CREATININE 0.7 mg/dL (0.55-1.02); Calcium 9.5 mg/dL (8.5-10.1); Chloride 100 mmol/L (98-107); Estimated GFR 97.72 (mL/min/1.73m2); Glucose 128 mg/dL (74-106); Lipase 32 U/L (16-77); Potassium 3.5 mmol/L (3.5-5.1); Sodium 136 mmol/L (136-145); Total Protein 8.6 g/dL (6.4-8.2)
[2022-11-20 13:46] LABS: COVID-19 PCR Negative (Negative); Influenza A PCR Negative (Negative); Influenza B PCR Negative (Negative); RSV PCR Negative (Negative)
[2022-11-20] MEDS: ACETAMINOPHEN 1,000 MG/100 ML BTL 400 MG IVPB (13:50)
[2022-11-20 14:00] LABS: Source Nasopharynx
[2022-11-20] MEDS: cefTRIAXone 2 GM/50 ML BAG IVPB (14:11)
[2022-11-20] MEDS: Lactated Ringers 1,000 ML 1000 ML IV (14:12)
[2022-11-20] MEDS: Hydrocortisone SOD SUC. 100 MG VIAL IVP (14:30)
[2022-11-20 15:05] LABS: Procalcitonin 0.4 ng/mL
--- NOTE | 2022-11-20 15:36 | HPE_ITS ---
Date of service: 11/20/22 Time of Service: 15:36 Assessment and Plan Assessment and plan (1) Pyelonephritis: Status: Acute Assessment and plan: In setting of an indwelling lozada (being changed) as well as recent instrumentation/ureteral stent. Continue vancomycin/ceftriaxone. Await blood and urine C&S. Urology is consulted. No surgical intervention at this time. I suspect that this is the reason for her nausea/vomiting yesterday as well as her dizziness and poor appetite. (2) Hypotension: Status: Acute Assessment and plan: In setting of an acute UTI and impending septic shock. However, I do see she has a h/o adrenal insufficiency and is no longer on steroids, so I agree with Lesa Thomas that she could have acute adrenal insufficiency in setting of infection. Would continue stress dose hydrocortisone. (3) Microcytic anemia: Status: Acute Assessment and plan: Check anemia studies. Given epigastric pain, which check hematest, increase PPI, and recommend outpatient GI follow up. (4) IDDM (insulin dependent diabetes mellitus): Assessment and plan: Cover with SSI. Hold jardiance in light of a UTI. (5) History of multiple cerebrovascular accidents (CVAs): Assessment and plan: Continue aspirin. Check lipids. She does not appear to be on a statin. (6) DVT prophylaxis: Status: Acute Assessment and plan: SC enoxaparin (7) Discharge planning issues: Status: Acute Assessment and plan: Full code per COLST form and my conversation with the patient. Admit to the ICU. Total Critical Care Time 45 minutes. History of Present Illness History of Present Illness Chief Complaint: Worsening pain and weakness Narrat jayden: Mr Barrera is a 62 year old female with PMHx of recent admission for sepsis due to emphysematous pyelonephritis with obstructive uropathy, requiring cystoscopy/stent placement (urine culture growing gram positive irving and yeast, completed a 7 day course of meropenem) as well as h/o CVA w/ residual dysarthria and R-sided hemiparesis, IDDM2, Parkinsonism, who was discharged back to the [facility] on 06/16/23 without antibiotics and with a lozada catheter, who returned to [facility] ED today w/ worsening weakness, n/v yesterday, chills, and R-sided back pain and w/u consistent with persistent pyelonephritis. The patient also describes poor appetite and dizzy spells even while laying still in bed for last week or so. She describes a chronic shortness of breath. The patient was hypotensive in the ED (80-103/42-58), but not febrile or tachycardic, and her lactate was 1.0. She does have a leucocytosis of 11.74, a positive urinalysis. Her CT of the abdomen/pelvis shows a R nephroureteral stent, no hydronephrosis, she does have R nephrolithiasis, and thickened sigmoid colon and rectum. Urology reviewed the case and did not feel the patient required a surgical intervention at this time. She was initiated on empiric ceftriaxone with vancomycin now being added due to recent instrumentation. Hospitalist admission was requested. The patient's latest reported BP, post c ompletion of 2 L of IVF is 89/49. The patient is being admitted to the ICU. Per my conversation with her, she is full code. Review of Systems Narrative: The patient also reports epigastric pain x months which comes and goes. She has a poor appetite today. All systems reviewed & are unremarkable except as noted in HPI and below PFSH All Active Problems (Updated 11/20/22 @ 16:13 by Yojana Osorio MD) Hypotension (Acute) DVT prophylaxis (Acute) Pyelonephritis (Acute) Microcytic anemia (Acute) Emphysematous pyelonephritis (Acute) Pyuria due to bacterial urinary tract infection (Acute) Hydronephrosis of right kidney (Acute) Gallstones (Acute) Arthritis of left shoulder region (Acute) Cough (Acute) Ileus (Acute) Tardive dyskinesia (Acute) Parkinsonism (Acute) History of stroke (Acute) Chronic chest pain (Chronic) Discharge planning issues (Acute) Constipation (Chronic) Bipolar 1 disorder (Chronic) Bipolar affective disorder, current episode depressed (Acute) rule out bipolar disorder reported by patient. Antiepileptics maybe preven ting manic episode. Major depressive disorder, recurrent, severe with psychotic features (Acute) Current presentation is depression. She may have bipolar affective disorder. Ambulatory dysfunction (Chronic) Hemiparesis affecting right side as late effect of cerebrovascular accident (Acute) Dysphagia as late effect of cerebrovascular accident (CVA) (Chronic) Dysarthria as late effect of cerebrovascular accident (CVA) (Acute) Aphasia as late effect of cerebrovascular accident (Acute) Neck pain (Acute) Autoimmune disorder (Acute) Medical History [place] (acute kidney injury) Anxiety Bipolar 1 disorder Cholelithiasis with acute cholecystitis s/p cholecystostomy and stone extraction in 2014 ([facility]), tube now pulled. 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 Complicated UTI (urinary tract infection) Diverticulosis Hemiparesis affecting right side as late effect of cerebrovascular accident (CVA) Hepatitis C History of multiple cerebrovascular accidents (CVAs) Hypertension Hypothyroidism IDDM (insulin dependent diabetes mellitus) Left rotator cuff tear Lumbar disc disease Nephrolithiasis Neurogenic bladder Obesity (BMI 30.0-34.9) Palliative care encounter Septic shock Staghorn calculus Static encephalopathy Steroid dependent Uterine mass likely a fibroid UTI (urinary tract infection) Surgical History Abnormal cholangiogram H/O cervical spine surgery H/O foot surgery H/O wrist surgery History of extraction of renal calculus 12/13/2018 - [facility] History of hip surgery right History of lumbosacral spine surgery S/P cystoscopy with ureteral stent placement [facility] 11/2018 Status post creation of urethral sling by suprapubic approach Family History Mother Stroke Social History Smoking/Tobacco Use Status: Former Tobacco Use Smoking risk assessment performed?: Yes Alcohol Intake: former Substance use type: former substance user and IV drugs Housing: residential Number of Children: 5 Education Level: elementary school Details: 6th grade, special ed, left school age 16. Current gender identity: female What is your relationship status?: Panel score (0-1 are the most socially isolated patients): 0 What type of physical activity do you participate in: none Do you feel safe at home: Yes Do you feel safe in your relationship?: Yes Meds Allergies and Home Medications Allergies Allergy/AdvReac Type Severity Reaction Status Date / Time naproxen [From Aleve] Allergy Unknown Itching Unverified 11/20/22 11:56 Penicillins Allergy Unknown Itching Unverified 11/20/22 11:56 propoxyphene Allergy Unknown Itching Unverified 11/20/22 11:56 Sulfa (Sulfonamide Allergy Unknown Itching Unverified 11/20/22 11:56 Antibiotics) methadone Allergy Verified 11/20/22 11:56 Home Medications Medication Instructions Recorded Confirmed Type docusate sodium 100 mg capsule 100 mg PO .BID, PRN 03/26/20 11/20/22 History (Colace) mirtazapine 15 mg tablet 15 mg PO QHS 03/26/20 11/20/22 History lamotrigine 25 mg tablet (Lamictal) 50 mg PO DAILY #1 tab 04/08/20 11/20/22 Rx polyethylene glycol 3350 17 17 g PO DAILY PRN 04/19/20 11/20/22 History gram/dose oral powder (Miralax) trazodone 50 mg tablet 25 mg PO BID 07/07/20 11/20/22 History bisacodyl 10 mg rectal suppository 10 mg NV ONCE PRN 08/17/20 11/20/22 History metformin 500 mg tablet 1,000 mg PO BID 12/20/20 11/20/22 History lactase 3,000 unit tablet (Lactaid) 9,000 unit PO TID 06/22/21 11/20/22 History quetiapine 100 mg tablet 50 mg PO DAILY 06/22/21 11/20/22 History acetaminophen 500 mg tablet 500 mg PO BID 06/01/22 11/20/22 History albuterol sulfate 90 mcg/actuation 2 inh inhalation TID 06/01/22 11/20/22 History aerosol inhaler (Ventolin HFA) aspirin 81 mg tablet,delayed 81 mg PO DAILY 06/01/22 11/20/22 History release bupropion HCl 150 mg 24 hr tablet, 150 mg PO QAM 06/01/22 11/20/22 History extended release cetirizine 10 mg tablet 10 mg PO QAM 06/01/22 11/20/22 History diclofenac sodium 1 % topical gel 1 applic topical BID 06/01/22 11/20/22 History dulaglutide 1.5 mg/0.5 mL 1 device subcut DIRECTED 06/01/22 11/20/22 History subcutaneous pen injector (Trulicity) empagliflozin 25 mg tablet 1 tab PO DAILY 06/01/22 11/20/22 History (Jardiance) fluticasone propionate 50 1 spray intranasal BID 06/01/22 11/20/22 History mcg/actuation nasal spray,suspension (Flonase Allergy Relief) gabapentin 600 mg tablet 2 tab PO BID 06/01/22 11/20/22 History linaclotide 145 mcg capsule 145 mcg PO DAILY 06/01/22 11/20/22 History magnesium oxide 800 mg PO DAILY 06/01/22 11/20/22 History quetiapine 100 mg tablet 100 mg PO BID 06/01/22 11/20/22 History sennosides 8.6 mg tablet 17.2 mg PO HS PRN 06/01/22 11/20/22 History simethicone 180 mg capsule 1 cap PO QID PRN 06/13/22 11/20/22 History B-complex with vitamin C 1 cap PO DAILY 11/09/22 11/20/22 History carbidopa 25 mg-levodopa 100 mg 1 tab PO QID 11/09/22 11/20/22 History tablet levothyroxine 100 mcg tablet 100 mcg PO DAILY 11/09/22 11/20/22 History multivitamin-ferrous 1 tab PO DAILY 11/09/22 11/20/22 History fumarate-folic acid 18 mg-400 mcg tablet (Centrum Complete) omeprazole 20 mg capsule,delayed 20 mg PO DAILY 11/09/22 11/20/22 History release mhlenzjalbrdg-SF-smkeixvirrw 5 10 ml PO Q4H PRN 11/09/22 11/20/22 History mg-10 mg-100 mg/5 mL oral liquid ropinirole 0.5 mg tablet 0.5 mg PO QHS 11/09/22 11/20/22 History Exam Narrative Exam Narrative: General: Pleasant middle-aged female with slurred speech, initially somnolent, but does wake up easily and provides history and follows commands. Neurological: A&Ox3, dysarthria, R-sided weakness Psychiatric: appropriate speech pattern/content Skin: Visible skin intact HEENT: Atraumatic, normocephalic, EOMI, dry MM, clear oropharynx, no submandibular or cervical lymphadenopathy, ?goiter, no JVD Cardiovascular: RRR, no m/r/g Lungs: diminished breath sounds B Gastrointestinal: soft, mildly tender in epigastrium, nondistended Genitourinary: has a lozada - clear yellow urine Extremities: no edema BLEs, 1+ pedal pulses B, R foot in an inflatable hill protector Results Imaging Additional studies: CT abdomen/pelvis: 1. Status post placement of a right nephroureteral stent.? No stones are seen along the course of the ureter.? No hydronephrosis is present. 2. Right nephrolithiasis. 3. Stable trace amount of perihepatic ascites and infiltration of the fat inferior to the liver. 4. Unchanged thickening of the wall of the distal sigmoid colon and rectum.? Colitis/proctitis may be considered. EKG: NSR, HR 87, inferolateral ST segment depressions, old Labs 11/20/22 12:43 11/20/22 12:43 Labs: Laboratory Results - last 24 hr 11/20/22 11/20/22 11/20/22 12:19 12:43 12:43 WBC RBC Hgb Hct MCV MCH MCHC RDW Plt Count MPV Immature Gran % Neutrophils % Lymphocytes % Monocytes % Eosinophils % Basophils % Nucleated RBC % Absolute Neutrophils Absolute Lymphocytes Absolute Monocytes Absolute Eosinophils Absolute Basophils RBC Morphology Hypochromasia Anisocytosis VBG Lactate 1.0 Sodium 136 Potassium 3.5 Chloride 100 Carbon Dioxide 29.7 Anion Gap 6.3 BUN 10 Creatinine 0.7 Est GFR (CKD-EPI 2020) 97.72 Glucose 128 H Calcium 9.5 Total Bilirubin 0.4 AST 38 H ALT 9 L Alkaline Phosphatase 85 Total Protein 8.6 H Albumin 3.2 L Lipase 32 Procalcitonin Urine Color Yellow Urine Clarity Cloudy Urine pH 7.0 Ur Specific [place] 1.015 Urine Protein 100 H Urine Ketones Negative Urine Blood Moderate H Urine Nitrite Negative Urine Bilirubin Negative Urine Urobilinogen 0.2 Ur Leukocyte Esterase Large H Urine RBC 10-20 H Urine WBC >50 H Ur Epithelial Cells Rare Urine Crystals Negative Urine Bacteria Rare Urine Casts 0-2 Hyaline Urine Mucus Negative Urine Other Rare Yeast Ur Culture Indicated? Yes Urine Glucose 500 H COVID-19 Source SARS-CoV-2 (PCR) Influenza Type A (PCR) Influenza Type B (PCR) RSV (PCR) 11/20/22 11/20/22 11/20/22 12:43 12:43 12:49 WBC 11.74 H RBC 4.23 Hgb 9.0 L Hct 33.0 L MCV 78 L MCH 21.3 L MCHC 27.3 L RDW 23.5 H Plt Count 439 H MPV 9.2 Immature Gran % 0.3 Neutrophils % 75.6 Lymphocytes % 17.8 Monocytes % 5.1 Eosinophils % 1.0 Basophils % 0.2 Nucleated RBC % 0.0 Absolute Neutrophils 8.88 H Absolute Lymphocytes 2.09 Absolute Monocytes 0.60 Absolute Eosinophils 0.12 Absolute Basophils 0.02 RBC Morphology See Below Hypochromasia 1+ Anisocytosis 2+ VBG Lactate Sodium Potassium Chloride Carbon Dioxide Anion Gap BUN Creatinine Est GFR (CKD-EPI 2020) Glucose Calcium Total Bilirubin AST ALT Alkaline Phosphatase Total Protein Albumin Lipase Procalcitonin 0.4 Urine Color Urine Clarity Urine pH Ur Specific [place] Urine Protein Urine Ketones Urine Blood Urine Nitrite Urine Bilirubin Urine Urobilinogen Ur Leukocyte Esterase Urine RBC Urine WBC Ur Epithelial Cells Urine Crystals Urine Bacteria Urine Casts Urine Mucus Urine Other Ur Culture Indicated? Urine Glucose COVID-19 Source Nasopharynx SARS-CoV-2 (PCR) Negative Influenza Type A (PCR) Negative Influenza Type B (PCR) Negative RSV (PCR) Negative 11/20/22 15:30 WBC RBC Hgb Hct MCV MCH MCHC RDW Plt Count MPV Immature Gran % Neutrophils % Lymphocytes % Monocytes % Eosinophils % Basophils % Nucleated RBC % Absolute Neutrophils Absolute Lymphocytes Absolute Monocytes Absolute Eosinophils Absolute Basophils RBC Morphology Hypochromasia Anisocytosis VBG Lactate Sodium Potassium Chloride Carbon Dioxide Anion Gap BUN Creatinine Est GFR (CKD-EPI 2020) Glucose Calcium Total Bilirubin AST ALT Alkaline Phosphatase Total Protein Albumin Lipase Procalcitonin Urine Color Urine Clarity Urine pH Ur Specific [place] Urine Protein Urine Ketones Urine Blood Urine Nitrite Urine Bilirubin Urine Urobilinogen Ur Leukocyte Esterase Urine RBC Urine WBC Ur Epithelial Cells Urine Crystals Urine Bacteria Urine Casts Urine Mucus Urine Other Ur Culture Indicated? Urine Glucose COVID-19 Source Cancelled SARS-CoV-2 (PCR) Cancelled Influenza Type A (PCR) Influenza Type B (PCR) RSV (PCR) Last Vital Signs Temp 36.9 C 11/20/22 11:48 Pulse 83 11/20/22 14:52 Resp 11 L 11/20/22 14:52 BP 97/52 L 11/20/22 14:52 Pulse Ox 95 11/20/22 14:52 Time Spent Time spent with Patient: 40-54 minutes Time was spent: preparing to see the patient(eg.review tests), obtaining and/or reviewing separately otained hiistory, ordering medications,tests, procedures, referring, communicating with other health transitional care liaison, indepentently interpreting results, counseling the patient and care coordination
[2022-11-20] MEDS: Lactated Ringers 500 ML IV (16:16)
[2022-11-20] MEDS: VANCOMYCIN/WATER (PEG) 1.75 GM/350 ML BAG IVPB (16:19)
[2022-11-20] MEDS: Enoxaparin 40 MG/0.4 ML SYR SC (17:08)
[2022-11-20] MEDS: Inhaler, Assist Device 1 EACH MC (17:08)
[2022-11-20] MEDS: Albuterol HFA 8 GM 60 PUFF INH IH ×2 (17:12→21:03)
[2022-11-20] MEDS: Insulin Aspart 300 UNITS/3 ML PEN SC ×2 (17:17→22:13)
[2022-11-20] MEDS: traZODone 50 MG TAB 25 MG PO (20:43)
[2022-11-20] MEDS: QUEtiapine 100 MG TAB PO (20:43)
[2022-11-20] MEDS: Carbidopa 25/Levodopa 100 TAB PO (20:44)
[2022-11-20] MEDS: Acetaminophen 500 MG TAB PO (20:44)
[2022-11-20] MEDS: Docusate Sodium 100 MG CAP PO (20:44)
[2022-11-20] MEDS: Gabapentin 600 MG TAB 1200 MG PO (20:44)
[2022-11-20] MEDS: Diclofenac 1% Gel 100 GM TUBE TP (20:45)
[2022-11-20] MEDS: Hydrocortisone SOD SUC. 100 MG VIAL 50 MG IVP (20:46)
[2022-11-20] MEDS: Fluticasone NASAL SPRAY 16 GM BTL NS (21:02)
[2022-11-20] MEDS: rOPINIRole 0.5 MG TAB PO (22:07)
[2022-11-20] MEDS: Mirtazapine 15 MG TAB PO (22:07)
[2022-11-21] VITALS (99 sets, daily range): BP systolic 90–137; BP diastolic 41–105; PULSE 75–133; RESP 6–26; TEMP 36.2–36.9; O2SAT 88–99
--- NOTE | 2022-11-21 | DI.RAD_ITS ---
Exam(s) XR ABDOMEN FLAT PLATE EXAM: 2D digital imaging was performed. CLINICAL HISTORY: abdominal distention and pain. COMPARISON: CR,XR XR ABDOMEN FLAT PLATE from 11/11/2022 TECHNIQUE: Supine views of the abdomen was performed. Six images were obtained. FINDINGS: LUNG BASES: Clear. BOWEL GAS PATTERN: Moderate distension of stomach and small and large bowel loops without evidence of obstruction. FREE AIR: None. CALCIFICATIONS: No radiopaque calcifications. OSSEOUS STRUCTURES: Normal for age. OTHER FINDINGS: There is a right nephroureteral stent. Atherosclerosis is present. IMPRESSION: Findings suggestive of an ileus. No definite evidence of obstruction. DATA REPOSITORY: RADIATION DOSE DELIVERED:
[2022-11-21] MEDS: Acetaminophen 325 MG TAB PO ×3 (00:11→17:13)
[2022-11-21] MEDS: Levothyroxine 100 MCG TAB PO (05:23)
[2022-11-21] MEDS: Hydrocortisone SOD SUC. 100 MG VIAL 50 MG IVP ×3 (05:23→21:44)
[2022-11-21] MEDS: VANCOMYCIN/WATER (PEG) 1 GM/200 ML BAG IVPB ×2 (05:24→18:02)
[2022-11-21] MEDS: Normal Saline Flush 10 ML SYR IVP ×5 (05:32→21:46)
[2022-11-21 05:52] LABS: Abs Immature Grans 0.08 10^3/uL (0.0-0.06); Absolute Basophil Count 0.03 10^3/uL (0.0-0.2); Absolute Lymphocyte Count 1.18 10^3/uL (1.2-3.4); Basophils % 0.2; Eosinophils % 0.1; HCT 29.4 % (36.0-46.0); Immature Grans % 0.5; Lymphocytes % 7.4; MCH 21.3 pg (27.0-33.0); MCHC 27.2 % (32.0-36.0); MCV 78 fL (80-95); Monocytes % 4.7; Neutrophils % 87.1; Platelet Count 454 10^3/uL (130-400); RBC 3.75 10^6/uL (3.93-5.22); RDW 23.5 % (11.7-14.6); RDW-SD 49.8 fL; WBC 15.89 10^3/uL (4.4-10.8)
[2022-11-21 06:00] LABS: Absolute Eosinophil Count 0.02 10^3/uL (0.0-0.7); Absolute Monocyte Count 0.75 10^3/uL (0.1-0.8); Absolute Neutrophil Count 13.84 10^3/uL (1.2-6.7)
[2022-11-21 06:07] LABS: Anion Gap 8.3 mmol/L (3-11); BUN 9 mg/dL (7-18); C-Reactive Protein 13.96 mg/dL (0.0-0.3); CO2 26.7 mmol/L (21.0-32.0); CREATININE 0.6 mg/dL (0.55-1.02); Calcium 8.9 mg/dL (8.5-10.1); Chloride 108 mmol/L (98-107); Estimated GFR 101.42 (mL/min/1.73m2); Glucose 125 mg/dL (74-106); Magnesium 1.9 mg/dL (1.8-2.4); Potassium 3.5 mmol/L (3.5-5.1); Sodium 143 mmol/L (136-145)
[2022-11-21 06:20] LABS: Iron 17 ug/dL (50-170); Total Iron Binding Capacity 244 ug/dL (250-450); Transferrin Sat 7 % (15-50)
[2022-11-21 06:33] LABS: Calculated LDL 134 mg/dL (<100); Cholesterol 208 mg/dL (<200); Ferritin 369 ng/mL (8-252); HDL Cholesterol 46 mg/dL (40-60); Triglyceride 141 mg/dL (<150)
[2022-11-21 06:39] LABS: Anisocytosis 3+; Diff Comment RBC Morph Reviewed; Hypochromasia 2+; Polychromasia Present
[2022-11-21 07:03] LABS: Folate 18.6 ng/mL (8.6-20.0); Vitamin B12 431 pg/mL (193-986)
[2022-11-21] MEDS: Omeprazole 20 MG CAPCR 40 MG PO (08:02)
[2022-11-21] MEDS: Albuterol HFA 8 GM 60 PUFF INH IH ×3 (09:10→21:39)
[2022-11-21] MEDS: Insulin Aspart 300 UNITS/3 ML PEN SC ×4 (09:52→21:44)
[2022-11-21] MEDS: Vitamins B Comp w/C TAB 1 TAB PO (09:54)
[2022-11-21] MEDS: Gabapentin 600 MG TAB 1200 MG PO ×2 (09:54→21:40)
[2022-11-21] MEDS: Acetaminophen 500 MG TAB PO ×2 (09:55→21:41)
[2022-11-21] MEDS: Multivitamin w/Minerals TAB 1 TAB PO (09:55)
[2022-11-21] MEDS: buPROPion-XL 150 MG TABCR PO (09:55)
[2022-11-21] MEDS: traZODone 50 MG TAB 25 MG PO ×2 (09:56→21:42)
[2022-11-21] MEDS: QUEtiapine 100 MG TAB PO ×2 (09:56→21:42)
[2022-11-21] MEDS: Carbidopa 25/Levodopa 100 TAB PO ×4 (09:56→21:41)
[2022-11-21] MEDS: Docusate Sodium 100 MG CAP PO ×2 (09:56→21:41)
[2022-11-21] MEDS: Magnesium Oxide 400 MG TAB 800 MG PO (10:02)
[2022-11-21] MEDS: lamoTRIgine 25 MG TAB 50 MG PO (10:02)
[2022-11-21] MEDS: Aspirin E.C. 81 MG TABEC PO (10:03)
[2022-11-21] MEDS: Cetirizine 10 MG TAB PO (10:03)
[2022-11-21] MEDS: Cyanocobalamin 500 MCG TAB 1000 MCG PO (10:04)
--- NOTE | 2022-11-21 10:09 | PT.INIE ---
PT Notes Visit Reasons: Sepsis due to Pyelonephritis,Present on admission Inpatient Physical Therapy Evaluation Date: 11/21/22 Referring Doctor: Dr. Yojana Osorio PT Orders: PT CONSULT: Limited ability Precautions: Contact Patient Profile/Admitting Diagnosis: Patient is a 62-year-old female admitted to [facility] via emergency department 11/20/2022. Patient underwent surgical procedure on 09 November 2022 secondary to acute kidney condition. She underwent a cystoscopy, right retrograde pyelogram and insert right ureteral stent secondary to emphysematous pyelonephritis and ureterolithiasis. Patient was having increased nausea and vomiting with complaints of general weakness that prompted her to return to [facility]. Secondary to hypotension and recent admission, CT abdomen pelvis was ordered, CT does not show evidence of acute abnormality with stent in appropriate placement, case was discussed with Dr. Alvarez as patient has greater than 50 red blood cells with indwelling Martinez catheter which will be changed for suspected pyelonephritis. PMHX: PFSH All Active Problems?(Updated 11/20/22 @ 16:13 by Yjoana Osorio MD) Hypotension (Acute) DVT prophylaxis (Acute) Pyelonephritis (Acute) Microcytic anemia (Acute) Emphysematous pyelonephritis (Acute) Pyuria due to bacterial urinary tract infection (Acute) Hydronephrosis of right kidney (Acute) Gallstones (Acute) Arthritis of left shoulder region (Acute) Cough (Acute) Ileus (Acute) Tardive dyskinesia (Acute) Parkinsonism (Acute) History of stroke (Acute) Chronic chest pain (Chronic) Discharge planning issues (Acute) Constipation (Chronic) Bipolar 1 disorder (Chronic) Bipolar affective disorder, current episode depressed (Acute) rule out bipolar disorder reported by patient. Antiepileptics maybe preventing manic episode.Major depressive disorder, recurrent, severe with psychotic features (Acute) Current presentation is depression.? She may have bipolar affective disorder.Ambulatory dysfunction (Chronic) Hemiparesis affecting right side as late effect of cerebrovascular accident (Acute) Dysphagia as late effect of cerebrovascular accident (CVA) (Chronic) Dysarthria as late effect of cerebrovascular accident (CVA) (Acute) Aphasia as late effect of cerebrovascular accident (Acute) Neck pain (Acute) Autoimmune disorder (Acute) Medical History? DALTON (acute kidney injury) Anxiety Bipolar 1 disorder Cholelithiasis with acute cholecystitis s/p cholecystostomy and stone extraction in 2014 ([facility]), tube now pulled. Gallbladder still in placeChronic adrenal insufficiency [employer] vasculitis Complicated UTI (urinary tract infection) Diverticulosis Hemiparesis affecting right side as late effect of cerebrovascular accident (CVA) Hepatitis C History of multiple cerebrovascular accidents (CVAs) Hypertension Hypothyroidism IDDM (insulin dependent diabetes mellitus) Left rotator cuff tear Lumbar disc disease Nephrolithiasis Neurogenic bladder Obesity (BMI 30.0-34.9) Palliative care encounter Septic shock Staghorn calculus Static encephalopathy Steroid dependent Uterine mass likely a fibroidUTI (urinary tract infection) Surgical History? Abnormal cholangiogram H/O cervical spine surgery H/O foot surgery H/O wrist surgery History of extraction of renal calculus 12/13/2018 - [email or web address] MCHistory of hip surgery rightHistory of lumbosacral spine surgery S/P cystoscopy with ureteral stent placement [facility] [[email or web address]] 11/2018Status post creation of urethral sling by suprapubic approach Social History/Home Situation: Currently resides at [facility] as a long-term resident. Patient states that she has been dependent in all functional mobility and transfers as well as self-care since her stroke resulting in right hemiplegia upper and lower extremity. Patient able to communicate without limitations. Indicates that she utilizes a Ashley lift at baseline however has essentially been in bed for the last 4 months secondary to breathing limitations both in supine and upright sitting positions. Prior to 4 months ago she was being acquired into a wheelchair at half-way facility. States she requires assistance with functional transfers and has not ambulated in multiple years. Does require some assist for self-care activities. States the nursing care facility does assist with pressure relief techniques. Equipment Owned/DME: Resident of [facility] Subjective: Ginger reports ongoing right anterior and posterior flank pain as well as right foot discomfort which was suspected as gout but ruled out. Uses lidocaine patch for the pain in her foot. She is agreeable to PT consult. Objective: General Observation: Resting in bed with nursing present.? Head of bed 50 degrees. Pleasant, no acute distress. ? She has an IV in the LUE, on telemetry, catheter. Mental Status: Alert and oriented x 3 Pain: Ongoing discomfort reported in anterior and posterior abdominal/flank ROM: Right Upper Extremity: Patient has significant flexor tone throughout the right upper extremity, with elbow flexion contracture.? Active shoulder scaption 30-40 degrees, passive shoulder flexion allows 60 degrees on the right.? Elbow motion allows 70-95 degrees of flexion.? Patient tolerates passively opening her hand with contractures PIP 3 and 4. Left Upper Extremity: Shoulder flexion AROM 110 degrees.? Elbow flexion 105 degrees and -15 extension actively -5 active assisted. She is able to actively open and close hand making fist Right Lower Extremity:? She tolerates 70 degrees of passive hip flexion, knee motion 0-70 degrees. Ankle DF lacks 5 degrees from neutral passively. All PROM is painfree. Left Lower Extremity: Passive hip flexion to 90 degrees. Knee motion allows 0-90 degrees. Ankle DF to -5 degrees actively PF 20 degrees. 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 She demonstrates trace shoulder flexion. No active elbow flexion or extension. Left Upper Extremity: Shoulder flexion 3+/5.? Biceps 4-/5.? Triceps 4-/5.? Professor Of Practice is full but weak. Right Lower Extremity:? 0/5 for quads, hamstrings, hip flexion, ankle dorsiflexion Left Lower Extremity: Quads 3/5.? Hip flexion 3/5.? Ankle dorsiflexion 3+/5. Sensation: Intact distally Bed Mobility/Transfers: Rolling: Max assist per patient report. Indicates FOOD CASHIER assist at [facility] for pressure relief techniques and pillow support/prop for positioning. Supine to sit: Unable She is unable to assist with repositioning in bed, with HOB at 20 degrees. Requires max A x 2 for completion of repositioning. Gait: Unable Balance: Static Sitting: Unable Dynamic Sitting: Unable Static Standing: Unable Dynamic Standing: Unable Special Tests: Mobility Limitations Standardized Measure [facility]-PAC 6 clicks Basic Mobility Inpatient Short Form: Raw Score: 6? CMS Score: 100% deficit? ? ? Informed Consent/Education:? Patient instructed in purpose of PT consult and plan of care. Assessment:? Patient is a 59 year old female referred to physical therapy services with the diagnosis status post cystoscopy, right retrograde pyelogram and insert right ureteral stent secondary to emphysematous pyelonephritis and ureterolithiasis.? Patient presents with clinical signs and symptoms consistent with diagnosis, with chronic mobility deficits related to her complicated medical history.? Patient is a long-term resident of the [facility], and is completely dependent for transfers and self-care.? She appears at baseline level of function, and is subsequently not appropriate for skilled PT intervention in acute care setting. Patient may benefit from OT consult to assess functionality of left upper extremity for use of self-care ADLs. She presents with the following impairments: 1.? Dense right hemiparesis 2.? Left upper extremity weakness 3.? Left lower extremity weakness 4.? Joint contracture 5.? Chronically nonambulatory Impairments contribute following functional limitations: 1.? Limited ability to assist in bed mobility 2.? Unable to ambulate 3.? Unable to sit unassisted 4.? Unable to transfer 5.? Dependent for all ADLs and self-care Patient is assessed as High 30126 complexity based on the following: History: 62-year-old female admitted for acute medical management of status post cystoscopy, right retrograde pyelogram and insert right ureteral stent secondary to emphysematous pyelonephritis and ureterolithiasis, in the presence of chronic right hemiparesis and aphasia related to an old CVA, diabetes, and Parkinson's disease.? Patient is dependent for all mobility and self-care at baseline. Examination: Functional limitations include dependence for bed mobility, transfers and all self-care. Presentation: stable Decision Making: low complexity Plan of Care/Treatment Plan: D/C from PT services in acute care setting, as she is at her baseline level of function DISCHARGE RECOMMENDATIONS: Return to the [facility] for continued long-term care. TREATMENT CODE/TIME: 25 minutes ([id number]) 9:50-10:15 Disclaimer: This note was created using [employer] voice recognition software. It was reviewed for major content. However, there may be multiple small discrepancies and errors due to the voice recognition aspects of the software.
--- NOTE | 2022-11-21 10:43 | PDOC.CMIN ---
- If Service Date Differs Date of service: 11/21/22 Time of Service: 10:43 Care Management Initial Assess REASON FOR HOSPITALIZATION:: Sepsis due to pyelonephritis PAST MEDICAL HISTORY/PAST SURGICAL HISTORY:: Medical History . DALTON (acute kidney injury). Anxiety. Bipolar 1 disorder. Cholelithiasis with acute cholecystitis. s/p cholecystostomy and stone extraction in 2014 ([facility]), tube now pulled. Gallbladder still in place. Chronic adrenal insufficiency. 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 Complicated UTI (urinary tract infection). Diverticulosis. Hemiparesis affecting right side as late effect of cerebrovascular accident (CVA). Hepatitis C. History of multiple cerebrovascular accidents (CVAs). Hypertension. Hypothyroidism. IDDM (insulin dependent diabetes mellitus). Left rotator cuff tear. Lumbar disc disease. Nephrolithiasis. Neurogenic bladder. Obesity (BMI 30.0-34.9). Palliative care encounter. Septic shock. Staghorn calculus. Static encephalopathy. Steroid dependent. Uterine mass. likely a fibroid. UTI (urinary tract infection). Surgical History . Abnormal cholangiogram. H/O cervical spine surgery. H/O foot surgery. H/O wrist surgery. History of extraction of renal calculus. 12/13/2018 - [facility]. History of hip surgery. right. History of lumbosacral spine surgery. S/P cystoscopy with ureteral stent placement. [facility] 11/2018. Status post creation of urethral sling by suprapubic approach PREVIOUS FUNCTIONAL STATUS/SOCIAL/FAMILY SUPPORTS:: Currently resides at [facility] as a long-term resident. Patient states that she has been dependent in all functional mobility and transfers as well as self-care since her stroke resulting in right hemiplegia upper and lower extremity. Patient able to communicate without limitations. Indicates that she utilizes a Ashley lift at baseline however has essentially been in bed for the last 4 months secondary to breathing limitations both in supine and upright sitting positions. Prior to 4 months ago she was being [facility]. States she requires assistance with functional transfers and has not ambulated in multiple years. Does require some assist for self-care activities. States the nursing care facility does assist with pressure relief techniques. ADVANCE DIRECTIVES:: COLST on file. Has patient been provided with info about the portal/API?: Yes Did the patient sign up for the portal?: Yes CODE STATUS:: Full Code INSURANCE COVERAGE / FINANCIAL ISSUES:: [facility] CURRENT HOME/COMMUNITY SERVICES/EQUIPMENT:: Resident of long-term care facility PRIMARY CARE PHYSICIAN:: Agueda Bingham POTENTIAL DISCHARGE NEEDS:: Coordinated return to the [facility]. PATIENT/FAMILY EDUCATION NEEDS:: Review discharge instructions and limitations, discussion of self care needs including ask me three. ANTICIPATED BARRIERS TO DISCHARGE:: None identified. TRANSPORTATION:: EMS. PLAN:: Ginger will return to the [facility] when medically cleared. She will likely transport via EMS, coordinated by CM. She will follow up with facility providers and discharge plan of care. CM will continue to follow.
--- NOTE | 2022-11-21 11:25 | UCONE_ITS ---
Date of service: 11/21/22 Time of Service: 11:25 Assessment and Plan Assessment and plan (1) Pyelonephritis: Status: Acute Assessment and plan: Her preliminary urine culture is growing Proteus which makes sense given her previous emphysematous pyelonephritis. There is no sign of hydronephrosis or a perinephric abscess that would require a drainage procedure. I was able to confirm with our anesthesia providers that in spite of her comorbidities, they are able to provide general anesthesia for her when it is safe to undergo ureteroscopy. I would recommend waiting until her urine culture and sensitivities are available. We will then give her culture specific antibiotics and plan to do ureteroscopy with stone removal sooner than later. Potentially, we could even plan for the procedure early next week as she completes her antibiotic course. History of Present Illness History of Present Illness Chief Complaint: Emphysematous pyelonephritis Narrative: This is a 62-year-old woman who has a history of kidney stones. She has had surgical procedures done at the [facility] previously. She recently presented to our facility with emphysematous pyelonephritis of the right kidney. We placed a ureteral stent and gave her antibiotics. We had requested that our anesthesia providers review her chart to help decide if she could have future ureteroscopy here at our facility or if she would need to go to a tertiary care center. In the interim, she presented back to the emergency room with right-sided pain. Her white blood count was slightly elevated. A repeat CT scan showed resolution of her right hydronephrosis and her stent was in a good position. Her urine sample was obtained from a Martinez catheter. The sample shows likely urinary tract infection. She is admitted now for antibiotics. She continues to have right-sided pain. She is not having fever or chills Review of Systems Narrative: She is complaining of sinus drainage due to seasonal allergies Hx Diabetes She has no cough or sputum production She has no chest pain or palpitations She has abdominal distention due to ileus and chronic constipation. The patient tells me that she is being considered for a colostomy by surgeons at [facility]. Hx Hepatitis C She has had a previous stroke and has hemiparesis PFSH All Active Problems (Updated 11/20/22 @ 16:13 by Yojana Osorio MD) Hypotension (Acute) DVT prophylaxis (Acute) Pyelonephritis (Acute) Microcytic anemia (Acute) Emphysematous pyelonephritis (Acute) Pyuria due to bacterial urinary tract infection (Acute) Hydronephrosis of right kidney (Acute) Gallstones (Acute) Arthritis of left shoulder region (Acute) Cough (Acute) Ileus (Acute) Tardive dyskinesia (Acute) Parkinsonism (Acute) History of stroke (Acute) Chronic chest pain (Chronic) Discharge planning issues (Acute) Constipation (Chronic) Bipolar 1 disorder (Chronic) Bipolar affective disorder, current episode depressed (Acute) rule out bipolar disorder reported by patient. Antiepileptics maybe preventing manic episode. Major depressive disorder, recurrent, severe with psychotic features (Acute) Current presentation is depression. She may have bipolar affective disorder. Ambulatory dysfunction (Chronic) Hemiparesis affecting right side as late effect of cerebrovascular accident (Acute) Dysphagia as late effect of cerebrovascular accident (CVA) (Chronic) Dysarthria as late effect of cerebrovascular accident (CVA) (Acute) Aphasia as late effect of cerebrovascular accident (Acute) Neck pain (Acute) Autoimmune disorder (Acute) Medical History DALTON (acute kidney injury) Anxiety Bipolar 1 disorder Cholelithiasis with acute cholecystitis s/p cholecystostomy and stone extraction in 2014 ([facility]), tube now pulled. 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 insufficiency [employer] vasculitis Complicated UTI (urinary tract infection) Diverticulosis Hemiparesis affecting right side as late effect of cerebrovascular accident (CVA) Hepatitis C History of multiple cerebrovascular accidents (CVAs) Hypertension Hypothyroidism IDDM (insulin dependent diabetes mellitus) Left rotator cuff tear Lumbar disc disease Nephrolithiasis Neurogenic bladder Obesity (BMI 30.0-34.9) Palliative care encounter Septic shock Staghorn calculus Static encephalopathy Steroid dependent Uterine mass likely a fibroid UTI (urinary tract infection) Surgical History Abnormal cholangiogram H/O cervical spine surgery H/O foot surgery H/O wrist surgery History of extraction of renal calculus 12/13/2018 - [facility] History of hip surgery right History of lumbosacral spine surgery S/P cystoscopy with ureteral stent placement [facility] [[email or web address]] 11/2018 Status post creation of urethral sling by suprapubic approach Family History Mother Stroke Social History Smoking/Tobacco Use Status: Former Tobacco Use Smoking risk assessment performed?: Yes Alcohol Intake: former 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 Current gender identity: female What is your relationship status?: Panel score (0-1 are the most socially isolated patients): 0 What type of physical activity do you participate in: none Do you feel safe at home: Yes Do you feel safe in your relationship?: Yes Exam Narrative Exam Narrative: She is much more animated than when I met her during her last hospitalization Her vital signs are documented elsewhere Her abdomen is distended and tympanitic. There are no peritoneal signs Her urine is clear in her catheter bag She is awake and alert Results Last Vital Signs Temp 36.6 C 11/21/22 04:00 Pulse 75 11/21/22 06:01 Resp 14 11/21/22 06:10 BP 127/74 11/21/22 06:01 Pulse Ox 95 11/21/22 06:10 Labs 11/21/22 05:45 11/21/22 05:45 Labs: Laboratory Results - last 24 hr 11/20/22 11/20/22 11/20/22 12:19 12:43 12:43 WBC RBC Hgb Hct MCV MCH MCHC RDW Plt Count MPV Immature Gran % Neutrophils % Lymphocytes % Monocytes % Eosinophils % Basophils % Nucleated RBC % Absolute Neutrophils Absolute Lymphocytes Absolute Monocytes Absolute Eosinophils Absolute Basophils RBC Morphology Polychromasia Hypochromasia Anisocytosis VBG Lactate 1.0 Sodium 136 Potassium 3.5 Chloride 100 Carbon Dioxide 29.7 Anion Gap 6.3 BUN 10 Creatinine 0.7 Est GFR (CKD-EPI 2020) 97.72 Glucose 128 H Calcium 9.5 Magnesium Iron TIBC Transferrin % Sat Ferritin Total Bilirubin 0.4 AST 38 H ALT 9 L Alkaline Phosphatase 85 C-Reactive Protein Total Protein 8.6 H Albumin 3.2 L Triglycerides Total Cholesterol LDL Cholesterol, Calc HDL Cholesterol Lipase 32 Vitamin B12 Folate Procalcitonin Urine Color Yellow Urine Clarity Cloudy Urine pH 7.0 Ur Specific [place] 1.015 Urine Protein 100 H Urine Ketones Negative Urine Blood Moderate H Urine Nitrite Negative Urine Bilirubin Negative Urine Urobilinogen 0.2 Ur Leukocyte Esterase Large H Urine RBC 10-20 H Urine WBC >50 H Ur Epithelial Cells Rare Urine Crystals Negative Urine Bacteria Rare Urine Casts 0-2 Hyaline Urine Mucus Negative Urine Other Rare Yeast Ur Culture Indicated? Yes Urine Glucose 500 H COVID-19 Source SARS-CoV-2 (PCR) Influenza Type A (PCR) Influenza Type B (PCR) RSV (PCR) 11/20/22 11/20/22 11/20/22 12:43 12:43 12:49 WBC 11.74 H RBC 4.23 Hgb 9.0 L Hct 33.0 L MCV 78 L MCH 21.3 L MCHC 27.3 L RDW 23.5 H Plt Count 439 H MPV 9.2 Immature Gran % 0.3 Neutrophils % 75.6 Lymphocytes % 17.8 Monocytes % 5.1 Eosinophils % 1.0 Basophils % 0.2 Nucleated RBC % 0.0 Absolute Neutrophils 8.88 H Absolute Lymphocytes 2.09 Absolute Monocytes 0.60 Absolute Eosinophils 0.12 Absolute Basophils 0.02 RBC Morphology See Below Polychromasia Hypochromasia 1+ Anisocytosis 2+ VBG Lactate Sodium Potassium Chloride Carbon Dioxide Anion Gap BUN Creatinine Est GFR (CKD-EPI 2020) Glucose Calcium Magnesium Iron TIBC Transferrin % Sat Ferritin Total Bilirubin AST ALT Alkaline Phosphatase C-Reactive Protein Total Protein Albumin Triglycerides Total Cholesterol LDL Cholesterol, Calc HDL Cholesterol Lipase Vitamin B12 Folate Procalcitonin 0.4 Urine Color Urine Clarity Urine pH Ur Specific [place] Urine Protein Urine Ketones Urine Blood Urine Nitrite Urine Bilirubin Urine Urobilinogen Ur Leukocyte Esterase Urine RBC Urine WBC Ur Epithelial Cells Urine Crystals Urine Bacteria Urine Casts Urine Mucus Urine Other Ur Culture Indicated? Urine Glucose COVID-19 Source Nasopharynx SARS-CoV-2 (PCR) Negative Influenza Type A (PCR) Negative Influenza Type B (PCR) Negative RSV (PCR) Negative 11/20/22 11/21/22 11/21/22 15:30 05:45 05:45 WBC 15.89 H RBC 3.75 L Hgb 8.0 L Hct 29.4 L MCV 78 L MCH 21.3 L MCHC 27.2 L RDW 23.5 H Plt Count 454 H MPV 9.0 Immature Gran % 0.5 Neutrophils % 87.1 Lymphocytes % 7.4 Monocytes % 4.7 Eosinophils % 0.1 Basophils % 0.2 Nucleated RBC % 0.0 Absolute Neutrophils 13.84 H Absolute Lymphocytes 1.18 L Absolute Monocytes 0.75 Absolute Eosinophils 0.02 Absolute Basophils 0.03 RBC Morphology See Below Polychromasia Present Hypochromasia 2+ Anisocytosis 3+ VBG Lactate Sodium 143 Potassium 3.5 Chloride 108 H Carbon Dioxide 26.7 Anion Gap 8.3 BUN 9 Creatinine 0.6 Est GFR (CKD-EPI 2020) 101.42 Glucose 125 H Calcium 8.9 Magnesium 1.9 Iron TIBC Transferrin % Sat Ferritin 369 H Total Bilirubin AST ALT Alkaline Phosphatase C-Reactive Protein 13.96 H Total Protein Albumin Triglycerides 141 Total Cholesterol 208 H LDL Cholesterol, Calc 134 H HDL Cholesterol 46 Lipase Vitamin B12 Folate Procalcitonin Urine Color Urine Clarity Urine pH Ur Specific [place] Urine Protein Urine Ketones Urine Blood Urine Nitrite Urine Bilirubin Urine Urobilinogen Ur Leukocyte Esterase Urine RBC Urine WBC Ur Epithelial Cells Urine Crystals Urine Bacteria Urine Casts Urine Mucus Urine Other Ur Culture Indicated? Urine Glucose COVID-19 Source Cancelled SARS-CoV-2 (PCR) Cancelled Influenza Type A (PCR) Influenza Type B (PCR) RSV (PCR) 11/21/22 11/21/22 05:45 05:45 WBC RBC Hgb Hct MCV MCH MCHC RDW Plt Count MPV Immature Gran % Neutrophils % Lymphocytes % Monocytes % Eosinophils % Basophils % Nucleated RBC % Absolute Neutrophils Absolute Lymphocytes Absolute Monocytes Absolute Eosinophils Absolute Basophils RBC Morphology Polychromasia Hypochromasia Anisocytosis VBG Lactate Sodium Potassium Chloride Carbon Dioxide Anion Gap BUN Creatinine Est GFR (CKD-EPI 2020) Glucose Calcium Magnesium Iron 17 L TIBC 244 L Transferrin % Sat 7 L Ferritin Total Bilirubin AST ALT Alkaline Phosphatase C-Reactive Protein Total Protein Albumin Triglycerides Total Cholesterol LDL Cholesterol, Calc HDL Cholesterol Lipase Vitamin B12 431 Folate 18.6 Procalcitonin Urine Color Urine Clarity Urine pH Ur Specific [place] Urine Protein Urine Ketones Urine Blood Urine Nitrite Urine Bilirubin Urine Urobilinogen Ur Leukocyte Esterase Urine RBC Urine WBC Ur Epithelial Cells Urine Crystals Urine Bacteria Urine Casts Urine Mucus Urine Other Ur Culture Indicated? Urine Glucose COVID-19 Source SARS-CoV-2 (PCR) Influenza Type A (PCR) Influenza Type B (PCR) RSV (PCR)
[2022-11-21] MEDS: Cyanocobalamin 1000 MCG/ML VIAL IM/SC (11:38)
[2022-11-21] MEDS: Diclofenac 1% Gel 100 GM TUBE TP ×2 (11:39→21:43)
[2022-11-21] MEDS: QUEtiapine 50 MG TAB PO (14:00)
[2022-11-21] MEDS: cefTRIAXone 2 GM/50 ML BAG IVPB (14:00)
--- NOTE | 2022-11-21 14:25 | CHAPLAIN ---
Ginger and I remembered each other from her recent hospitalization. She said she had kidney stones, and the doctors are waiting for her sinus infection to clear up before dealing with the kidney stone, and then eventually she may need a colostomy, Ginger said. She is in touch with her dad who lives in [place], [place], and called him in the past couple of days. She requested a bible through her nurse, XIOMARA Contreras. It was difficult to find a [employer] version, as she requested, and on with large enough print for her.
[2022-11-21] MEDS: Enoxaparin 40 MG/0.4 ML SYR SC (17:06)
[2022-11-21] MEDS: Simethicone 80 MG CHEW 160 MG CH (17:09)
--- NOTE | 2022-11-21 18:22 | PGE_ITS ---
Date of Service Date of service: 11/21/22 Time of Service: 18:22 Assessment and Plan Assessment and plan (1) Pyelonephritis: Status: Acute Assessment and plan: In setting of an indwelling lozada as well as recent instrumentation/ureteral stent, present on admission. Urine C&S: proteus. Ok to d/c vancomycin Continue ceftriaxone and await sensitivities. blood cultures are negative to date. No surgical intervention at this time, but will need ureteroscopy/stone retrieval - possibly on this admission, early next week, as per urology. Anesthesia will be able to accommodate that here. (2) Abdominal pain: Status: Acute Assessment and plan: Check abdominal XR. Check Stool studies. NPO. (3) Hypotension: Status: Resolved Assessment and plan: In setting of an acute UTI and impending septic shock as well as possible adrenal insufficiency. Continue abx. Start to taper steroids. (4) Microcytic anemia: Status: Acute Assessment and plan: Replete B12. Continue increased PPI. Outpatient GI follow up. (5) IDDM (insulin dependent diabetes mellitus): Assessment and plan: Cover with SSI. Hold jardiance in light of a UTI. (6) History of multiple cerebrovascular accidents (CVAs): Assessment and plan: Continue aspirin. Start a statin. (7) DVT prophylaxis: Status: Acute Assessment and plan: SC enoxaparin (8) Discharge planning issues: Status: Acute Assessment and plan: Full code per COLST form and my conversation with the patient. Transferred out of the ICU. Subjective Subjective Interval history since last seen: Ms Barrera states that her abdomen got very distended after eating and that it usually does. She states she has been having mucousy diarrhea and that it had been previously tested for infection and that it was ok. She states that she was supposed to have an EGD and a colonoscopy as an outpatient. She continues to report back pain on the R side which tylenol does not fully relieve and she would like something more. She denies dizziness, chest pain, endorses chronic shortness of breath, denies n/v. Exam Narrative Exam Narrative: General: Pleasant middle-aged female who is very alert, sitting up in bed watching TV HEENT: EOMI, MMM Cardiovascular: RRR, no m/r/g Lungs: diminished breath sounds B Gastrointestinal: soft, very distended and mildly diffusely tender, + hyperactive bowel sounds Genitourinary: has a lozada Extremities: no edema BLEs, 1+ pedal pulses B, R foot in an inflatable hill protector Objective Last Vital Signs Temp 36.9 C 11/21/22 16:00 Pulse 91 H 11/21/22 16:00 Resp 18 11/21/22 16:00 BP 114/68 11/21/22 16:00 Pulse Ox 96 11/21/22 16:00 Laboratory Results - last 24 hr 11/21/22 11/21/22 11/21/22 05:45 05:45 05:45 WBC 15.89 H RBC 3.75 L Hgb 8.0 L Hct 29.4 L MCV 78 L MCH 21.3 L MCHC 27.2 L RDW 23.5 H Plt Count 454 H MPV 9.0 Immature Gran % 0.5 Neutrophils % 87.1 Lymphocytes % 7.4 Monocytes % 4.7 Eosinophils % 0.1 Basophils % 0.2 Nucleated RBC % 0.0 Absolute Neutrophils 13.84 H Absolute Lymphocytes 1.18 L Absolute Monocytes 0.75 Absolute Eosinophils 0.02 Absolute Basophils 0.03 RBC Morphology See Below Polychromasia Present Hypochromasia 2+ Anisocytosis 3+ Sodium 143 Potassium 3.5 Chloride 108 H Carbon Dioxide 26.7 Anion Gap 8.3 BUN 9 Creatinine 0.6 Est GFR (CKD-EPI 2020) 101.42 Glucose 125 H Calcium 8.9 Magnesium 1.9 Iron 17 L TIBC 244 L Transferrin % Sat 7 L Ferritin 369 H C-Reactive Protein 13.96 H Triglycerides 141 Total Cholesterol 208 H LDL Cholesterol, Calc 134 H HDL Cholesterol 46 Vitamin B12 Folate 11/21/22 05:45 WBC RBC Hgb Hct MCV MCH MCHC RDW Plt Count MPV Immature Gran % Neutrophils % Lymphocytes % Monocytes % Eosinophils % Basophils % Nucleated RBC % Absolute Neutrophils Absolute Lymphocytes Absolute Monocytes Absolute Eosinophils Absolute Basophils RBC Morphology Polychromasia Hypochromasia Anisocytosis Sodium Potassium Chloride Carbon Dioxide Anion Gap BUN Creatinine Est GFR (CKD-EPI 2020) Glucose Calcium Magnesium Iron TIBC Transferrin % Sat Ferritin C-Reactive Protein Triglycerides Total Cholesterol LDL Cholesterol, Calc HDL Cholesterol Vitamin B12 431 Folate 18.6 Time Spent with Patient Time Spent with Patient: 35-49 minutes Time was spent: preparing to see the patient(eg.review tests), obtaining and/or reviewing separately otained hiistory, ordering medications,tests, procedures, referring, communicating with other health wound care technician, indepentently interpreting results, counseling the patient and care coordination
--- NOTE | 2022-11-21 19:23 | DI.VRAD_ITS ---
PROCEDURE INFORMATION: Exam: XR Abdomen Exam date and time: 11/21/2022 6:36 PM Age: 62 years old Clinical indication: Abdominal pain; Generalized; Prior surgery; Surgery date: <1 month; Surgery type: Ureteral stent placement, hip surgery; Patient HX: Abdominal distention and pain TECHNIQUE: Imaging protocol: Radiologic exam of the abdomen. Views: Frontal supine view of the abdomen. 1 View. COMPARISON: CT ABDOMEN PELVIS WO 11/20/2022 1:20 PM FINDINGS: Tubes, catheters and devices: Right double-J ureteral stent present. Gastrointestinal tract: Moderate gaseous distention of the stomach and multiple loops of small and large bowel, without evidence of obstruction. Vasculature: Phleboliths within the pelvis. Atherosclerotic vascular disease. Bones/joints: Moderate degenerative changes of the hips, manifest by joint space narrowing, subchondral sclerosis, and osteophyte formation. Generalized bony demineralization. IMPRESSION: Moderate gaseous distention of the stomach and multiple loops of small and large bowel, without evidence of obstruction. Dictated and Authenticated by: Jimbo Francis MD. Ordering:LAURA Dial MD
[2022-11-21] MEDS: rOPINIRole 0.5 MG TAB PO (21:41)
[2022-11-21] MEDS: Atorvastatin 20 MG TAB PO (21:41)
[2022-11-21] MEDS: Mirtazapine 15 MG TAB PO (21:42)
[2022-11-21] MEDS: Fluticasone NASAL SPRAY 16 GM BTL NS (21:43)
[2022-11-21] MEDS: traMADol 50 MG TAB PO (21:43)
[2022-11-22] MEDS: Normal Saline Flush 10 ML SYR IVP ×2 (02:15→21:36)
[2022-11-22] MEDS: Acetaminophen 325 MG TAB PO (02:15)
[2022-11-22 04:00] VITALS: BP 123/78; PULSE 80; RESP 19; TEMP 36; O2SAT 98
[2022-11-22 05:22] LABS: Abs Immature Grans 0.02 10^3/uL (0.0-0.06); Absolute Basophil Count 0.01 10^3/uL (0.0-0.2); Absolute Eosinophil Count 0.03 10^3/uL (0.0-0.7); Absolute Lymphocyte Count 1.62 10^3/uL (1.2-3.4); Absolute Monocyte Count 0.43 10^3/uL (0.1-0.8); Basophils % 0.1; Eosinophils % 0.4; HCT 29.1 % (36.0-46.0); HGB 8.1 g/dL (11.2-15.7); Immature Grans % 0.2; Lymphocytes % 20.2; MCHC 27.8 % (32.0-36.0); MCV 79 fL (80-95); MPV 9.4 fL (8.0-11.0); Monocytes % 5.4; Neutrophils % 73.7; Platelet Count 442 10^3/uL (130-400); RBC 3.69 10^6/uL (3.93-5.22); RDW 24.1 % (11.7-14.6); RDW-SD 53.1 fL; WBC 8.01 10^3/uL (4.4-10.8)
[2022-11-22] MEDS: Levothyroxine 100 MCG TAB PO (05:23)
[2022-11-22] MEDS: traMADol 50 MG TAB PO ×2 (05:24→21:38)
[2022-11-22 05:34] LABS: Anisocytosis 2+; Diff Comment RBC Morph Reviewed; Hypochromasia 2+; Polychromasia Present
[2022-11-22 05:39] LABS: BUN 8 mg/dL (7-18); C-Reactive Protein 6.69 mg/dL (0.0-0.3); CREATININE 0.6 mg/dL (0.55-1.02); Calcium 9.5 mg/dL (8.5-10.1); Chloride 105 mmol/L (98-107); Estimated GFR 101.42 (mL/min/1.73m2); Glucose 148 mg/dL (74-106); Potassium 4.2 mmol/L (3.5-5.1); Sodium 140 mmol/L (136-145)
[2022-11-22 05:41] LABS: Vancomycin, Trough 18.4 ug/mL (10.0-20.0)
[2022-11-22 06:19] LABS: Procalcitonin < 0.1 ng/mL
[2022-11-22 07:47] VITALS: BP 134/80; PULSE 81; RESP 18; TEMP 36.1; O2SAT 98
[2022-11-22] MEDS: Albuterol HFA 8 GM 60 PUFF INH IH ×3 (07:48→21:37)
[2022-11-22] MEDS: Gabapentin 600 MG TAB 1200 MG PO ×2 (09:05→21:41)
[2022-11-22] MEDS: QUEtiapine 100 MG TAB PO ×2 (09:07→21:40)
[2022-11-22] MEDS: lamoTRIgine 25 MG TAB 50 MG PO (10:09)
[2022-11-22] MEDS: Acetaminophen 500 MG TAB PO ×2 (10:10→21:38)
[2022-11-22] MEDS: Carbidopa 25/Levodopa 100 TAB PO ×4 (10:10→21:39)
[2022-11-22] MEDS: Cyanocobalamin 500 MCG TAB 1000 MCG PO (10:10)
[2022-11-22] MEDS: Multivitamin w/Minerals TAB 1 TAB PO (10:10)
[2022-11-22] MEDS: Docusate Sodium 100 MG CAP PO ×2 (10:11→21:39)
[2022-11-22] MEDS: Vitamins B Comp w/C TAB 1 TAB PO (10:11)
[2022-11-22] MEDS: Aspirin E.C. 81 MG TABEC PO (10:11)
[2022-11-22] MEDS: Magnesium Oxide 400 MG TAB 800 MG PO (10:12)
[2022-11-22] MEDS: traZODone 50 MG TAB 25 MG PO ×2 (10:12→21:41)
[2022-11-22] MEDS: Omeprazole 20 MG CAPCR 40 MG PO (10:13)
[2022-11-22] MEDS: buPROPion-XL 150 MG TABCR PO (10:13)
[2022-11-22] MEDS: Cetirizine 10 MG TAB PO (10:13)
[2022-11-22] MEDS: Hydrocortisone SOD SUC. 100 MG VIAL 50 MG IVP ×2 (10:19→21:35)
[2022-11-22] MEDS: Fluticasone NASAL SPRAY 16 GM BTL NS ×2 (10:20→21:37)
[2022-11-22] MEDS: Diclofenac 1% Gel 100 GM TUBE TP ×2 (10:20→21:38)
[2022-11-22 11:06] VITALS: BP 120/64; PULSE 80; RESP 19; TEMP 35.9; O2SAT 96
[2022-11-22] MEDS: ALPRAZolam 0.5 MG TAB 0.25 MG PO (11:52)
[2022-11-22] MEDS: Simethicone 80 MG CHEW 160 MG CH ×3 (11:52→21:40)
[2022-11-22] MEDS: Bisacodyl 10 MG SUPP PR (11:54)
[2022-11-22] MEDS: QUEtiapine 50 MG TAB PO (13:48)
[2022-11-22] MEDS: cefTRIAXone 2 GM/50 ML BAG IVPB (13:49)
[2022-11-22 14:40] VITALS: BP 114/70; PULSE 84; RESP 18; TEMP 36.7; O2SAT 97
--- NOTE | 2022-11-22 14:55 | NUR.NOTE ---
Nursing Note: Per night nurse, lozada has been leaking overnight. RN states she adjusted catheter, increased further filled balloon, and following no resolution to problem, changed lozada from a 16 montserratian to 18 montserratian. RN reports that this am, lozada is leaking again. On this writers assessment, large amount of urine noted in incontinence brief and bed emmanuel. Lozada is draining. Lozada replaced by a 20 montserratian lozada catheter with 5cc in balloon. Urine noted in tube and draining to gravity bag.
--- NOTE | 2022-11-22 15:01 | W.PM.PROGNOT ---
Date of Service Date of service: 11/22/22 Time of Service: 10:45 Assessment and Plan Assessment and plan (1) Pyelonephritis: Status: Acute Assessment and plan: In setting of an indwelling lozada as well as recent instrumentation/ureteral stent, present on admission. Urine C&S: proteus sensitive to ceftriaxone. Continue ceftriaxone. Blood cultures are negative to date. No surgical intervention at this time, but will need ureteroscopy/stone retrieval - possibly on this admission, early next week, as per urology. Anesthesia will be able to accommodate that here. (2) Abdominal pain: Status: Acute Assessment and plan: Does not have an ileus clinically. As I understand this, the patient is on linzess, scheduled glycerin suppositories and miralax as outpatient. We will resume this here. (3) Hypotension: Status: Resolved Assessment and plan: In setting of an acute UTI and impending septic shock as well as possible adrenal insufficiency. Continue abx. Tapering steroids. (4) Microcytic anemia: Status: Acute Assessment and plan: Replete B12. Continue increased PPI. Outpatient GI follow up. (5) IDDM (insulin dependent diabetes mellitus): Assessment and plan: Cover with SSI. Hold jardiance in light of a UTI. (6) History of multiple cerebrovascular accidents (CVAs): Assessment and plan: Continue aspirin. Start a statin. (7) DVT prophylaxis: Status: Acute Assessment and plan: SC enoxaparin (8) Discharge planning issues: Status: Acute Assessment and plan: Full code per COLST form and my conversation with the patient. PT/OT consulted. Continues to require hospitalization. Subjective Subjective Interval history since last seen: Ms Barrera states she has been having panic attacks. She says she used to take xanax for them. She states her back/abdomen still hurt. Abdomen is still distended. Denies dizziness, chest pain, shortness of breath. She states that pain medication (ultram) does not last for 6 hrs and would like to have it every 4. I am reading in her [facility] notes that she has a h/o multisubstance abuse with h/o crack cocaine use and IVD. She states that [facility] had recommended daily suppositories (glycerin) as well as miralax 8.5 g/day. Exam Narrative Exam Narrative: General: Pleasant middle-aged female who is very alert, looks better, A&Ox3, NAD HEENT: EOMI, MMM Cardiovascular: RRR, no m/r/g Lungs: diminished breath sounds B Gastrointestinal: soft, less distended and mildly diffusely tender, + hyperactive bowel sounds Genitourinary: has a lozada Extremities: no edema BLEs, 1+ pedal pulses B, R foot in an inflatable hill protector Objective Last Vital Signs Temp 36.7 C 11/22/22 14:40 Pulse 84 11/22/22 14:40 Resp 18 11/22/22 14:40 BP 114/70 11/22/22 14:40 Pulse Ox 97 11/22/22 14:40 Laboratory Results - last 24 hr 11/20/22 11/22/22 11/22/22 12:19 04:58 04:58 WBC RBC Hgb Hct MCV MCH MCHC RDW Plt Count MPV Immature Gran % Neutrophils % Lymphocytes % Monocytes % Eosinophils % Basophils % Nucleated RBC % Absolute Neutrophils Absolute Lymphocytes Absolute Monocytes Absolute Eosinophils Absolute Basophils RBC Morphology Polychromasia Hypochromasia Anisocytosis Sodium 140 Potassium 4.2 Chloride 105 Carbon Dioxide 27.0 Anion Gap 8.0 BUN 8 Creatinine 0.6 Est GFR (CKD-EPI 2020) 101.42 Glucose 148 H Calcium 9.5 Magnesium 2.0 C-Reactive Protein 6.69 H Procalcitonin < 0.1 Urine Color Yellow Urine Clarity Cloudy Urine pH 7.0 Ur Specific [place] 1.015 Urine Protein 100 H Urine Ketones Negative Urine Blood Moderate H Urine Nitrite Negative Urine Bilirubin Negative Urine Urobilinogen 0.2 Ur Leukocyte Esterase Large H Urine RBC 10-20 H Urine WBC >50 H Ur Epithelial Cells Rare Urine Crystals Negative Urine Bacteria Rare Urine Casts 0-2 Hyaline Urine Mucus Negative Urine Other Rare Yeast Ur Culture Indicated? Yes Urine Glucose 500 H Vancomycin Trough 11/22/22 11/22/22 04:58 04:58 WBC 8.01 RBC 3.69 L Hgb 8.1 L Hct 29.1 L MCV 79 L MCH 22.0 L MCHC 27.8 L RDW 24.1 H Plt Count 442 H MPV 9.4 Immature Gran % 0.2 Neutrophils % 73.7 Lymphocytes % 20.2 Monocytes % 5.4 Eosinophils % 0.4 Basophils % 0.1 Nucleated RBC % 0.0 Absolute Neutrophils 5.90 Absolute Lymphocytes 1.62 Absolute Monocytes 0.43 Absolute Eosinophils 0.03 Absolute Basophils 0.01 RBC Morphology See Below Polychromasia Present Hypochromasia 2+ Anisocytosis 2+ Sodium Potassium Chloride Carbon Dioxide Anion Gap BUN Creatinine Est GFR (CKD-EPI 2020) Glucose Calcium Magnesium C-Reactive Protein Procalcitonin Urine Color Urine Clarity Urine pH Ur Specific [place] Urine Protein Urine Ketones Urine Blood Urine Nitrite Urine Bilirubin Urine Urobilinogen Ur Leukocyte Esterase Urine RBC Urine WBC Ur Epithelial Cells Urine Crystals Urine Bacteria Urine Casts Urine Mucus Urine Other Ur Culture Indicated? Urine Glucose Vancomycin Trough 18.4 Objective Narrative Objective Narrative: XR abdomen: Findings suggestive of an ileus.? No definite evidence of obstruction.? Time Spent with Patient Time Spent with Patient: 35-49 minutes Time was spent: preparing to see the patient(eg.review tests), obtaining and/or reviewing separately otained hiistory, ordering medications,tests, procedures, referring, communicating with other health home care and home health aides teacher, indepentently interpreting results, counseling the patient and care coordination
--- NOTE | 2022-11-22 15:10 | CMPROGNOTE_ITS ---
- If Service Date Differs Date of service: 11/22/22 Time of Service: 15:10 Care Management Progress Note S/O: Urology consult; anticipate Ginger will remain on antibiotics through the weekend with plans for ureteroscopy/stone retrieval early next week. Ginger will return to the [facility] when ready per MD. CM coordinated delivery of medications from the [facility] as pharmacy/MD request. CM will continue to follow. A: 62 year old female admitted to [facility] 11/20/22 for sepsis due to Pyelonephritis, present on admission P: Ginger will return to the [facility] when medically cleared. She will likely transport via EMS, coordinated by CM. She will follow up with facility providers and discharge plan of care. CM will continue to follow.
[2022-11-22] MEDS: Enoxaparin 40 MG/0.4 ML SYR SC (15:51)
--- NOTE | 2022-11-22 17:10 | CHAPLAIN ---
Ginger has moved out to Med/Surg from the ICU. Today she requested a visit and told me she was looking for a Bible she can read more easily than the one I brought her yesterday. I ended up bringing the very large table bible from the chapel, and she felt she would be able to read it.
[2022-11-22] MEDS: Insulin Aspart 300 UNITS/3 ML PEN SC ×2 (17:11→21:36)
[2022-11-22 19:27] VITALS: BP 118/72; PULSE 88; RESP 16; TEMP 36.6; O2SAT 97
[2022-11-22] MEDS: Atorvastatin 20 MG TAB PO (21:39)
[2022-11-22] MEDS: rOPINIRole 0.5 MG TAB PO (21:40)
[2022-11-22] MEDS: Mirtazapine 15 MG TAB PO (21:40)
[2022-11-22 23:05] VITALS: BP 129/73; PULSE 79; RESP 19; TEMP 36.7; O2SAT 96
[2022-11-22] MEDS: ALPRAZolam 0.25 MG TAB PO (23:23)
[2022-11-23 04:01] VITALS: BP 120/64; PULSE 80; RESP 16; TEMP 36.9; O2SAT 98
[2022-11-23] MEDS: Levothyroxine 100 MCG TAB PO (05:41)
[2022-11-23 07:11] LABS: Abs Immature Grans 0.08 10^3/uL (0.0-0.06); Absolute Basophil Count 0.02 10^3/uL (0.0-0.2); Absolute Lymphocyte Count 1.16 10^3/uL (1.2-3.4); Basophils % 0.1; Eosinophils % 0.3; HCT 32.5 % (36.0-46.0); HGB 8.8 g/dL (11.2-15.7); Immature Grans % 0.5; Lymphocytes % 7.6; MCH 21.6 pg (27.0-33.0); MCHC 27.1 % (32.0-36.0); MCV 80 fL (80-95); MPV 9.4 fL (8.0-11.0); Monocytes % 5.8; Neutrophils % 85.7; Platelet Count 428 10^3/uL (130-400); RBC 4.08 10^6/uL (3.93-5.22); RDW 24.5 % (11.7-14.6); RDW-SD 69.3 fL; WBC 15.28 10^3/uL (4.4-10.8)
[2022-11-23 07:22] LABS: Absolute Eosinophil Count 0.05 10^3/uL (0.0-0.7); Absolute Monocyte Count 0.89 10^3/uL (0.1-0.8); Absolute Neutrophil Count 13.09 10^3/uL (1.2-6.7)
[2022-11-23 07:25] LABS: Anion Gap 10.7 mmol/L (3-11); BUN 13 mg/dL (7-18); CO2 25.3 mmol/L (21.0-32.0); CREATININE 0.8 mg/dL (0.55-1.02); Calcium 9.7 mg/dL (8.5-10.1); Chloride 106 mmol/L (98-107); Estimated GFR 83.26 (mL/min/1.73m2); Glucose 203 mg/dL (74-106); Magnesium 1.7 mg/dL (1.8-2.4); Potassium 3.9 mmol/L (3.5-5.1); Sodium 142 mmol/L (136-145)
[2022-11-23 07:36] VITALS: BP 106/68; PULSE 94; RESP 18; TEMP 36.7; O2SAT 95
[2022-11-23 07:39] LABS: Anisocytosis 2+; Diff Comment RBC Morph Reviewed; Hypochromasia 2+
[2022-11-23] MEDS: Albuterol HFA 8 GM 60 PUFF INH IH ×2 (07:55→19:31)
[2022-11-23 08:19] LABS: C Diff PCR Negative (Negative)
[2022-11-23] MEDS: Cyanocobalamin 500 MCG TAB 1000 MCG PO (08:38)
[2022-11-23] MEDS: Acetaminophen 500 MG TAB PO ×2 (08:39→19:58)
[2022-11-23] MEDS: Carbidopa 25/Levodopa 100 TAB PO ×4 (08:39→19:59)
[2022-11-23] MEDS: Aspirin E.C. 81 MG TABEC PO (08:39)
[2022-11-23] MEDS: Cetirizine 10 MG TAB PO (08:39)
[2022-11-23] MEDS: traZODone 50 MG TAB 25 MG PO ×2 (08:40→19:58)
[2022-11-23] MEDS: buPROPion-XL 150 MG TABCR PO (08:40)
[2022-11-23] MEDS: lamoTRIgine 25 MG TAB 50 MG PO (08:41)
[2022-11-23] MEDS: QUEtiapine 100 MG TAB PO ×2 (08:41→19:59)
[2022-11-23] MEDS: Simethicone 80 MG CHEW 160 MG CH ×4 (08:41→19:58)
[2022-11-23] MEDS: Magnesium Oxide 400 MG TAB 800 MG PO ×2 (08:41→19:59)
[2022-11-23] MEDS: ALPRAZolam 0.25 MG TAB PO ×2 (08:41→19:58)
[2022-11-23] MEDS: Gabapentin 600 MG TAB 1200 MG PO ×2 (08:42→19:59)
[2022-11-23] MEDS: Multivitamin w/Minerals TAB 1 TAB PO (08:42)
[2022-11-23] MEDS: predniSONE 10 MG TAB PO (08:42)
[2022-11-23] MEDS: Vitamins B Comp w/C TAB 1 TAB PO (08:42)
[2022-11-23] MEDS: Omeprazole 20 MG CAPCR 40 MG PO (08:42)
[2022-11-23] MEDS: Docusate Sodium 100 MG CAP PO ×2 (08:43→19:59)
[2022-11-23] MEDS: Diclofenac 1% Gel 100 GM TUBE TP (08:43)
[2022-11-23] MEDS: Polyethylene Glycol 3350 17 GM PACKET 8.5 GM PO (09:06)
[2022-11-23] MEDS: Glycerin Adult Suppository JAR 1 SUPP PR (09:07)
[2022-11-23] MEDS: Fluticasone NASAL SPRAY 16 GM BTL NS ×2 (09:07→19:57)
[2022-11-23] MEDS: Insulin Aspart 300 UNITS/3 ML PEN SC ×4 (09:08→21:57)
--- NOTE | 2022-11-23 09:17 | OTIE_ITS ---
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 She is admitted with the following dx of abdominal pain, hypotension, pyelonephritis, microcytic anemia, emphysematous pyelonephritis, pyuria due to bacterial UTI, hydronephrosis of (R) kidney, gallstones, cough, Ileus, Tardiv dyskinesia, parkinsonism, hx of multiple strokes, bipolar disorder, depression. Past Medical History- All Active Problems?(Updated 11/20/22 @ 16:13 by Yojana Osorio MD) Hypotension (Acute) DVT prophylaxis (Acute) Pyelonephritis (Acute) Microcytic anemia (Acute) Emphysematous pyelonephritis (Acute) Pyuria due to bacterial urinary tract infection (Acute) Hydronephrosis of right kidney (Acute) Gallstones (Acute) Arthritis of left shoulder region (Acute) Cough (Acute) Ileus (Acute) Tardive dyskinesia (Acute) Parkinsonism (Acute) History of stroke (Acute) Chronic chest pain (Chronic) Discharge planning issues (Acute) Constipation (Chronic) Bipolar 1 disorder (Chronic) Bipolar affective disorder, current episode depressed (Acute) rule out bipolar disorder reported by patient. Antiepileptics maybe preventing manic episode.Major depressive disorder, recurrent, severe with psychotic features (Acute) Current presentation is depression.? She may have bipolar affective disorder.Ambulatory dysfunction (Chronic) Hemiparesis affecting right side as late effect of cerebrovascular accident (Acute) Dysphagia as late effect of cerebrovascular accident (CVA) (Chronic) Dysarthria as late effect of cerebrovascular accident (CVA) (Acute) Aphasia as late effect of cerebrovascular accident (Acute) Neck pain (Acute) Autoimmune disorder (Acute) Medical History? [place] (acute kidney injury) Anxiety Bipolar 1 disorder Cholelithiasis with acute cholecystitis s/p cholecystostomy and stone extraction in 2014 ([facility]), tube now pulled. Gallbladder still in placeChronic adrenal insufficiency [employer] vasculitis Complicated UTI (urinary tract infection) Diverticulosis Hemiparesis affecting right side as late effect of cerebrovascular accident (CVA) Hepatitis C History of multiple cerebrovascular accidents (CVAs) Hypertension Hypothyroidism IDDM (insulin dependent diabetes mellitus) Left rotator cuff tear Lumbar disc disease Nephrolithiasis Neurogenic bladder Obesity (BMI 30.0-34.9) Palliative care encounter Septic shock Staghorn calculus Static encephalopathy Steroid dependent Uterine mass likely a fibroidUTI (urinary tract infection) Surgical History? Abnormal cholangiogram H/O cervical spine surgery H/O foot surgery H/O wrist surgery [facility] of [facility] rightHistory of lumbosacral spine surgery S/P cystoscopy with ureteral stent placement [facility] 11/2018Status post creation of urethral sling by suprapubic approach Family History? 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. She states that for years now she has been totally max (A) for all ADLs/IADL routines including dressing, bathing, toileting, functional mobility and eating at times. She does reports that with built up handles if her tremor is well managed that she is able to perform her eating routine with (A), but notes that this is significantly impacted by her tremor. Equipment owned/DME: Provided per DME SUBJECTIVE:??Pt was lying in bed when OT arrived. She states that she is feeling well and thinks that she will need surgery for her kidney stones. She reports that she plans to return to the [facility] and that she is feeling like she is at her baseline level of function. OBJECTIVE: General Observation: Pleasant and able to answer questions appropriately. (R) hand/ UE contracture, (B) hip contractures. Mental Status: A&Ox3 Pain: c/o pain throughout body 6+/10 ROM: RUE AROM not able to perform due to contractures, elbow was bent in 90* with hand in bent position. L UE Shoulder flexion able to achieve 110*, elbow WNL, hand and digits able to make fist but with weak shadow graph weight operator. STRENGTH: RUE Shoulder flexion NT, elbow 2-/5, shadow graph weight operator is weak and unable to shadow graph weight operator LUE Shoulder flexion 4-/5, bicep 4+/5, tricep 4+/5, shadow graph weight operator is weak and unable to shadow graph weight operator SENSATION: Numbness and tingling in (R) UE which is chronic in nature FUNCTIONAL MOBILITY/ADLS:? Transfers Unable to transfer without mechanical lift. BATHING Pt denies. She reports that she is max (A) and states that she has been for years. DRESSING Pt is max (A) dressing. When assessing [facility] gown she is unable to (A) due to decreased motor control particularly related to her [place] dx.She is max (A) with don and doffing (B) socks due to contractures in (R) UE, (B) hips as well as inability to stay in seated position due to pain. GROOMING Pt is able to bring her (L) UE to her hair, this is also dependent on her tremor and motor control. Pt states that she is not (I) with her teeth care. TOILETING NT pt is mechanically lifted to perform functional mobility and will require (A) With toileting hygiene due to contractures and decreased shadow graph weight operator strength. EATING Pt states that at times she utilizes built up handles for her eating routine. OT does feel that if pts tremor and motor control are doing well that pt will be able to shadow graph weight operator silverware and bring hand to mouth with (A). She states that at the [place] they perform max (A) for all eating routines. She would like to be (I) with this but is lacking fine motor control and strength in her (L) UE with minimal use of her (R). BALANCE: Static sitting Fair to good requires max back support Dynamic Sitting Poor Static Standing NT Dynamic Standing NT SPECIAL TESTS:? Daily Activity Limitations Standardized Measure [facility] ? AM -PAC ? ?6 clicks? Daily Activity Inpatient Short Form: Raw score: 7 ? Standardized score: 20.13 ? CMS score: 92.44%? INFORMED CONSENT/EDUCATION: Pt instructed in purpose of OT Consult and plan of care. ASSESSMENT:?? Patient is a 62-year-old female referred to occupational therapy services with diagnosis of abdominal pain, hypotension, pyelonephritis, microcytic anemia, emphysematous pyelonephritis, pyuria due to bacterial UTI, hydronephrosis of (R) kidney, gallstones, cough, Ileus, Tardiv dyskinesia, parkinsonism, hx of multiple strokes, bipolar disorder, depression . Patient presents with clinical signs and symptoms consistent with dx, as demonstrated by the following impairment level findings/ functional limitations: Impairments in ADL/IADL and leisure impairments, pt is max (A) at her baseline level of function and was provided a strengthening program for (L) UE today. AMPAC score 7 Patient is assessed as a? Moderate 26568? complexity based on the following: History: See above Examination: see functional limitations as noted above Presentation: Evolving Decision Making: AMPAC score 7 GOALS-1 week 1. Pt will be (I) and compliant with (L) UE strengthening program to (A) with strengthening PLAN OF CARE/TREATMENT PLAN: OT will plan to see pt 1x per day for 2-3 sessions for progressive strengtheing to increase (I) in her ADL routines. DISCHARGE RECOMMENDATIONS Return to [facility] TREATMENT TIME/MINUTES/CODES [id number], 25 minutes (07:20) Summer Ventura OTR/L [facility]
[2022-11-23] MEDS: traMADol 50 MG TAB PO ×3 (11:51→21:58)
--- NOTE | 2022-11-23 13:47 | W.INDIABCONS ---
Date of service: 11/23/22 Time of Service: 13:47 Diabetes Inpatient Consult Reason for Visit: Dm2 DESCRIPTION/ASSESSMENT: Met with Ginger today. She resides at [facility]. Admitted with kidney stones, microcytic anemia, Dm2, with hx of CAV. BMI 28 indicates overweight status. Following diabetic diet with varied intake. Receives glucerna, extra custards daily to supplement intake. Ginger is agreeable to have her meat/chicken cut up with added gravey as chewing can be difficult for her as she has lost all her teeth. Most recent A1C: 6.9% indicates excellent glycemic control. Supplemented with MVI, B12 INTERVENTION: Will continue with Diabetic Diet with chopped meats with gravey. Will supplement diet with glucerna and custards per Ginger's request PLAN: weight, po intake, labs Time Spent in Nutritional Counseling and Treatment: 10
[2022-11-23] MEDS: QUEtiapine 50 MG TAB PO (14:11)
[2022-11-23] MEDS: cefTRIAXone 2 GM/50 ML BAG IVPB (14:11)
[2022-11-23 15:16] VITALS: BP 106/63; PULSE 86; RESP 18; TEMP 36.5; O2SAT 97
[2022-11-23] MEDS: Enoxaparin 40 MG/0.4 ML SYR SC (15:49)
--- NOTE | 2022-11-23 16:03 | CMPROGNOTE_ITS ---
- If Service Date Differs Date of service: 11/23/22 Time of Service: 16:03 Care Management Progress Note S/O: Ginger will remain on antibiotics through the weekend with plans for ureteroscopy/stone retrieval on Sunday, per Urologist. Ginger will return to the [facility] when ready per MD, she reports being content to stay at [facility] through the weekend. CM will continue to follow. A: 62 year old female admitted to [facility] 11/20/22 for sepsis due to Pyelonephritis, present on admission P: Ginger will return to the [facility] when medically cleared. She will likely transport via EMS, coordinated by CM. She will follow up with facility providers and discharge plan of care. CM will continue to follow.
--- NOTE | 2022-11-23 16:03 | W.PM.PROGNOT ---
Date of Service Date of service: 11/23/22 Time of Service: 16:03 Assessment and Plan Assessment and plan (1) Pyelonephritis: Status: Acute Assessment and plan: In setting of an indwelling lozada as well as recent instrumentation/ureteral stent, present on admission. Urine C&S: proteus sensitive to ceftriaxone. Continue ceftriaxone 2 gm daily Blood cultures 1/4 bottles positive from 11/20 for GPC (anaerobic bottle only), repeat blood cultures pending from today. I have not added vancomycin as she is clinically improving on the Rocephin. I will repeat her inflammatory markers tomorrow including procalcitonin, WBC, and CRP. If she spikes a fever then I would consider addition of Vancomycin to cover Enterococcus and Staph. No surgical intervention at this time, but will need ureteroscopy/stone retrieval -Per Dr. Alvarez, anaesthesia is ok w/ performing procedure here. He will get her on the schedule for Sunday. (2) Abdominal pain: Status: Chronic Assessment and plan: abdominal xray on admisssion suggested an ileus but she clinically she has been having liquid bowel movements. If she developes nausea and vomiting or worsening abdominal pain, then I would repeat CT of her abdomen. (3) Hypotension: Status: Resolved Assessment and plan: transient on admission and likely d/t sepsis from UTI. Patient was treated w/ stress dose corticosteroids, now on prednisone 10 mg daily. I will dc prednisone as she was not on chronic corticosteroids as outpatient (4) Microcytic anemia: Status: Acute Assessment and plan: historically, she has had a low normal B12 level 0f 197 pg/mL as recent as 09/26/22 whereas her level this admission is well within normal level of 431. She has not been on B12 orally specifically or at least it is not on her home med list. She was on a MVS w/ iron and folic acid. She is now on cyanocobalamin 1000 mcg daily. Microcytic anemia is not caused by B12 deficiency but rather d/t anemia of chronic inflammation and iron deficiency. Her iron level is low at 17 but her ferritin is high at 369 while her TIBC is low at 244 and transferrin staturation is low 7%. This pattern fits that of anemia of chronic inflammation, not iron deficiency nor ADA w/ chronic inflammation. However, in the past her ferritin levels have been as low as 28 back in Oct 25, 2021. She did receive parenteral iron supplementation during her last admission and therefore should not receive anymore iron. As for her B12 metabolism. I have ordered methylmalonic acid level. (5) IDDM (insulin dependent diabetes mellitus): Assessment and plan: Cover with SSI. Hold jardiance in light of a UTI. (6) History of multiple cerebrovascular accidents (CVAs): Assessment and plan: Continue aspirin. atorvastatin 20 mg added. total cholesterol 208 and LDL 134. Goal is for LDL 70 or less and TC under 200. TG were ok at 141. (7) DVT prophylaxis: Status: Acute Assessment and plan: SC enoxaparin (8) Discharge planning issues: Status: Acute Assessment and plan: Full code per COLST form and and per Dr. Osorio's discussion w/ the patient. PT/OT consulted. Continues to require hospitalization. She will remain hospitalized until after her cystourteroscopy next week. Subjective Subjective Interval history since last seen: Patient has multiple concerns. She has not been getting her lidocaine patches on her right foot. She complains of bloating after meals (not unusual for her and she is on scheduled Linzess as well as stool softeners and daily glycerin supp and oral simethicone). She complains of chronic neck, back and shoulder pain, but she is already on topical Voltaren gel for this (she is not a candidate for oral NSAID 2nd to CKD). I explained to her that Dr. Alvarez will plan on performing cystoscopy and removal of ureteral stent on Sunday. For now she will remain on parenteral antibiotics until after the procedure. She is growing a resistant strain of Proteus mirabilis which surprisingly is sensitive to Ceftriaxone. Her blood culture from 11/20 showed no growth in one set and in the 2nd set was positive for GPC in only the anaerobic bottle, therefore likely contaminant. Repeat blood cultures were drawn today. MRSA screen was negative. WBC were normal yesterday at 8000 but wendy to 15,280 today but no fever. Review of her in hospital meds reveals that she was put on stress dose hydrocortisone. She is now on prednisone 10 mg daily. She remains on Ceftriaxone 2 gm daily for the Proteus mirabilis. Exam Narrative Exam Narrative: Ginger is lying in bed she is alert and oriented person place time circumstance. Lungs are clear to auscultation Heart is regular rate and rhythm Abdomen is distended firm but not hard there is no rebound tenderness or guarding. She has active bowel sounds in all 4 quadrants. Extremities without peripheral cyanosis or edema. Objective Last Vital Signs Temp 36.5 C 11/23/22 15:16 Pulse 86 11/23/22 15:16 Resp 18 11/23/22 15:16 BP 106/63 11/23/22 15:16 Pulse Ox 97 11/23/22 15:16 Laboratory Results - last 24 hr 11/22/22 11/23/22 11/23/22 17:00 06:45 06:45 WBC 15.28 H RBC 4.08 Hgb 8.8 L Hct 32.5 L MCV 80 MCH 21.6 L MCHC 27.1 L RDW 24.5 H Plt Count 428 H MPV 9.4 Immature Gran % 0.5 Neutrophils % 85.7 Lymphocytes % 7.6 Monocytes % 5.8 Eosinophils % 0.3 Basophils % 0.1 Nucleated RBC % 0.0 Absolute Neutrophils 13.09 H Absolute Lymphocytes 1.16 L Absolute Monocytes 0.89 H Absolute Eosinophils 0.05 Absolute Basophils 0.02 RBC Morphology See Below Hypochromasia 2+ Anisocytosis 2+ Sodium 142 Potassium 3.9 Chloride 106 Carbon Dioxide 25.3 Anion Gap 10.7 BUN 13 Creatinine 0.8 Est GFR (CKD-EPI 2020) 83.26 Glucose 203 H Calcium 9.7 Magnesium 1.7 L Stl C.difficile Tox PCR Negative Time Spent with Patient Time Spent with Patient: 25-34 minutes Time was spent: preparing to see the patient(eg.review tests), obtaining and/or reviewing separately otained hiistory, ordering medications,tests, procedures, referring, communicating with other health career development engineer (Discussion with Dr. Alvarez), indepentently interpreting results, counseling the patient and care coordination
[2022-11-23] MEDS: Lidocaine 5% Patch 1 PATCH TP (17:48)
[2022-11-23] MEDS: Atorvastatin 20 MG TAB PO (19:58)
[2022-11-23 20:01] VITALS: BP 115/72; PULSE 85; RESP 20; TEMP 35.7; O2SAT 98
[2022-11-23] MEDS: rOPINIRole 0.5 MG TAB PO (21:58)
[2022-11-23] MEDS: Mirtazapine 15 MG TAB PO (21:59)
[2022-11-24 02:59] VITALS: BP 112/70; PULSE 84; RESP 20; TEMP 36.6; O2SAT 97
[2022-11-24] MEDS: Levothyroxine 100 MCG TAB PO (05:37)
[2022-11-24] MEDS: Omeprazole 20 MG CAPCR 40 MG PO (05:53)
[2022-11-24] MEDS: Lidocaine Patch Removal 1 EACH TP (05:54)
[2022-11-24] MEDS: traMADol 50 MG TAB PO ×2 (05:54→20:19)
[2022-11-24] MEDS: Diclofenac 1% Gel 100 GM TUBE TP ×2 (05:54→20:46)
[2022-11-24 07:37] LABS: Abs Immature Grans 0.02 10^3/uL (0.0-0.06); Absolute Basophil Count 0.03 10^3/uL (0.0-0.2); Absolute Eosinophil Count 0.12 10^3/uL (0.0-0.7); Absolute Lymphocyte Count 2.23 10^3/uL (1.2-3.4); Absolute Monocyte Count 0.53 10^3/uL (0.1-0.8); Absolute Neutrophil Count 5.76 10^3/uL (1.2-6.7); Basophils % 0.3; Eosinophils % 1.4; HCT 34.2 % (36.0-46.0); HGB 9.4 g/dL (11.2-15.7); Immature Grans % 0.2; Lymphocytes % 25.7; MCH 22.1 pg (27.0-33.0); MCHC 27.5 % (32.0-36.0); MCV 80 fL (80-95); MPV 8.8 fL (8.0-11.0); Monocytes % 6.1; Neutrophils % 66.3; Platelet Count 441 10^3/uL (130-400); RBC 4.26 10^6/uL (3.93-5.22); RDW 25.1 % (11.7-14.6); RDW-SD 71.4 fL; WBC 8.69 10^3/uL (4.4-10.8)
[2022-11-24 07:45] LABS: Anion Gap 7.6 mmol/L (3-11); BUN 14 mg/dL (7-18); CO2 29.4 mmol/L (21.0-32.0); Calcium 9.9 mg/dL (8.5-10.1); Chloride 103 mmol/L (98-107); Glucose 202 mg/dL (74-106); Magnesium 1.8 mg/dL (1.8-2.4); Potassium 4.7 mmol/L (3.5-5.1); Sodium 140 mmol/L (136-145)
[2022-11-24 07:52] LABS: Anisocytosis 2+; Diff Comment RBC Morph Reviewed; Hypochromasia 1+
[2022-11-24 08:00] VITALS: BP 106/60; PULSE 93; RESP 18; TEMP 36.2; O2SAT 97
[2022-11-24 08:05] LABS: Procalcitonin 0.1 ng/mL
--- NOTE | 2022-11-24 08:15 | OTTR_ITS ---
Date of service: 11/24/22 Occupational Therapy Notes Inpatient Occupational Treatment Note Date: 11/24/22 SUBJECTIVE: Pt was lying in bed when OT arrived. She was putting on her makeup and notes that she is feeling good today. She states that she transitioned rooms and is wondering if we can go over her exercises. OBJECTIVE: Therapeutic Exercise [id number]: OT educated and trained pt in strengthening exercises with yellow band including bicep curls 10x, shoulder flexion 10x, crossing midline 10x and reading professor strengthening 10x. Pt is receptive to this and has been performing this 10x each 3x per day. PLAN OF CARE/TREATMENT PLAN: 1x/day, 3 days/ week x 1week Initiate Occupational Therapy Services for bathing, dressing, grooming, toileting, eating, transfer training. DISCHARGE RECOMMENDATIONS Return to the [facility]. TREATMENT TIME/MINUTES/CODES 28866, 10 minutes (08:10) RUBY Soriano/[facility]
--- NOTE | 2022-11-24 08:21 | OTTR_ITS ---
Date of service: 11/23/22 Occupational Therapy Notes Occupational Therapy Inpatient Treatment Note Date: 11/23/22 SUBJECTIVE:??Pt asked nursing to come get OT as she has some questions on her strengthening. OBJECTIVE:? Therapeutic Exercise [id number]: OT educated and trained pt in strengthening exercises with yellow band including bicep curls 10x, shoulder flexion 10x, crossing midline 10x and manager proposal strengthening 10x. OT and pt work on (L) UE positioning in bed and use of (L) arm during her ADLs for increased (I). PLAN OF CARE/TREATMENT PLAN: 1x/day, 3 days/ week x 1week Initiate Occupational Therapy Services for bathing, dressing, grooming, toileting, eating, transfer training. DISCHARGE RECOMMENDATIONS Return to the [facility]. TREATMENT TIME/MINUTES/CODES [address] Summer Ventura OTR/[facility]
[2022-11-24] MEDS: Albuterol HFA 8 GM 60 PUFF INH IH ×3 (08:41→19:31)
[2022-11-24] MEDS: Insulin Aspart 300 UNITS/3 ML PEN SC ×4 (08:42→20:29)
[2022-11-24] MEDS: Fluticasone NASAL SPRAY 16 GM BTL NS ×2 (08:43→20:23)
[2022-11-24] MEDS: Glycerin Adult Suppository JAR 1 SUPP PR (08:44)
[2022-11-24] MEDS: Acetaminophen 500 MG TAB PO ×2 (08:45→20:18)
[2022-11-24] MEDS: Gabapentin 600 MG TAB 1200 MG PO ×2 (08:45→20:22)
[2022-11-24] MEDS: Cyanocobalamin 500 MCG TAB 1000 MCG PO (08:45)
[2022-11-24] MEDS: Magnesium Oxide 400 MG TAB 800 MG PO ×2 (08:46→20:21)
[2022-11-24] MEDS: Simethicone 80 MG CHEW 160 MG CH ×4 (08:46→20:17)
[2022-11-24] MEDS: lamoTRIgine 25 MG TAB 50 MG PO (08:46)
[2022-11-24] MEDS: buPROPion-XL 150 MG TABCR PO (08:46)
[2022-11-24] MEDS: traZODone 50 MG TAB 25 MG PO ×2 (08:46→20:19)
[2022-11-24] MEDS: Carbidopa 25/Levodopa 100 TAB PO ×4 (08:47→20:19)
[2022-11-24] MEDS: Cetirizine 10 MG TAB PO (08:47)
[2022-11-24] MEDS: Vitamins B Comp w/C TAB 1 TAB PO (08:47)
[2022-11-24] MEDS: Aspirin E.C. 81 MG TABEC PO (08:47)
[2022-11-24] MEDS: Docusate Sodium 100 MG CAP PO ×2 (08:47→20:18)
[2022-11-24] MEDS: Multivitamin w/Minerals TAB 1 TAB PO (08:47)
[2022-11-24] MEDS: Polyethylene Glycol 3350 17 GM PACKET 8.5 GM PO (08:47)
[2022-11-24] MEDS: QUEtiapine 100 MG TAB PO ×2 (08:47→20:17)
--- NOTE | 2022-11-24 11:13 | CMPROGNOTE_ITS ---
- If Service Date Differs Date of service: 11/24/22 Time of Service: 11:13 Care Management Progress Note S/O: Ginger will remain on antibiotics through the weekend with plans for ureteroscopy/stone retrieval on Sunday, per Urologist. Ginger will return to the [facility] when ready per MD, she reports being content to stay at [facility] through the weekend. CM will continue to follow. A: 62 year old female admitted to [facility] 11/20/22 for sepsis due to Pyelonephritis, present on admission P: Ginger will return to the [facility] when medically cleared. She will likely transport via EMS, coordinated by CM. She will follow up with facility providers and discharge plan of care. CM will continue to follow.
[2022-11-24 11:34] LABS: Campylobacter PCR Negative (Negative); Salmonella PCR Negative (Negative); Shiga Toxin PCR Negative (Negative); Shigella/Enteroinvasive Ecoli Negative (Negative)
[2022-11-24 11:36] VITALS: BP 100/62; PULSE 94; RESP 18; TEMP 36.3; O2SAT 97
[2022-11-24] MEDS: QUEtiapine 50 MG TAB PO (13:33)
[2022-11-24] MEDS: cefTRIAXone 2 GM/50 ML BAG IVPB (13:33)
--- NOTE | 2022-11-24 14:55 | PGE_ITS ---
Date of Service Date of service: 11/24/22 Time of Service: 14:56 Assessment and Plan Assessment and plan (1) Pyelonephritis: Status: Acute Assessment and plan: Continue Rocephin [address] Alvarez plans forureteroscopy and stent removal next week. (2) IDDM (insulin dependent diabetes mellitus): Assessment and plan: Cover with SSI. Hold jardiance in light of a UTI. (3) Discharge planning issues: Status: Acute Assessment and plan: Full code per COLST form and and per Dr. Osorio's discussion w/ the patient. PT/OT consulted. Continues to require hospitalization. She will remain hospitalized until after her cystourteroscopy next week. Subjective Subjective Interval history since last seen: Patient is requesting Martinez catheter be removed and an external urinary catheter be placed. She also has continued bloating after meals which is not a new finding. She is having bowel movements therefore I do not feel she has an ileus. Exam Narrative Exam Narrative: Ginger is lying in bed she is alert and oriented person place time circumstance. Lungs are clear to auscultation Heart is regular rate and rhythm Abdomen is distended firm but not hard there is no rebound tenderness or guardin g. She has active bowel sounds in all 4 quadrants. Extremities without peripheral cyanosis or edema. Objective Last Vital Signs Temp 36.3 C L 11/24/22 11:36 Pulse 94 H 11/24/22 11:36 Resp 18 11/24/22 11:36 BP 100/62 11/24/22 11:36 Pulse Ox 97 11/24/22 11:36 Laboratory Results - last 24 hr 11/24/22 11/24/22 11/24/22 07:22 07:22 07:22 WBC 8.69 RBC 4.26 Hgb 9.4 L Hct 34.2 L MCV 80 MCH 22.1 L MCHC 27.5 L RDW 25.1 H Plt Count 441 H MPV 8.8 Immature Gran % 0.2 Neutrophils % 66.3 Lymphocytes % 25.7 Monocytes % 6.1 Eosinophils % 1.4 Basophils % 0.3 Nucleated RBC % 0.0 Absolute Neutrophils 5.76 Absolute Lymphocytes 2.23 Absolute Monocytes 0.53 Absolute Eosinophils 0.12 Absolute Basophils 0.03 RBC Morphology See Below Hypochromasia 1+ Anisocytosis 2+ Sodium 140 Potassium 4.7 Chloride 103 Carbon Dioxide 29.4 Anion Gap 7.6 BUN 14 Creatinine 1.0 Est GFR (CKD-EPI 2020) 63.70 Glucose 202 H Calcium 9.9 Magnesium 1.8 C-Reactive Protein 16.70 H Procalcitonin 0.1 Time Spent with Patient Time Spent with Patient: <25 minutes Time was spent: ordering medications,tests, procedures, referring, communicating with other health elderly caregiver, indepentently interpreting results, counseling the patient and care coordination
[2022-11-24] MEDS: Enoxaparin 40 MG/0.4 ML SYR SC (15:48)
[2022-11-24] MEDS: Lidocaine 5% Patch 1 PATCH TP (17:07)
[2022-11-24] MEDS: ALPRAZolam 0.25 MG TAB PO (20:18)
[2022-11-24] MEDS: rOPINIRole 0.5 MG TAB PO (20:22)
[2022-11-24] MEDS: Mirtazapine 15 MG TAB PO (20:23)
[2022-11-24] MEDS: Atorvastatin 20 MG TAB PO (20:23)
[2022-11-24 20:41] VITALS: BP 102/68; PULSE 88; RESP 18; TEMP 36.9; O2SAT 97
[2022-11-25] MEDS: Levothyroxine 100 MCG TAB PO (06:15)
[2022-11-25] MEDS: traMADol 50 MG TAB PO ×3 (06:15→22:16)
[2022-11-25] MEDS: Omeprazole 20 MG CAPCR 40 MG PO (06:16)
[2022-11-25] MEDS: Lidocaine Patch Removal 1 EACH TP (06:19)
[2022-11-25] MEDS: ALPRAZolam 0.25 MG TAB PO ×2 (06:29→22:13)
[2022-11-25 06:58] LABS: Anion Gap 9.2 mmol/L (3-11); BUN 19 mg/dL (7-18); CO2 28.8 mmol/L (21.0-32.0); CREATININE 0.8 mg/dL (0.55-1.02); Calcium 10.2 mg/dL (8.5-10.1); Chloride 101 mmol/L (98-107); Estimated GFR 83.26 (mL/min/1.73m2); Glucose 174 mg/dL (74-106); Potassium 4.8 mmol/L (3.5-5.1); Sodium 139 mmol/L (136-145)
[2022-11-25] MEDS: Polyethylene Glycol 3350 17 GM PACKET 8.5 GM PO (08:17)
[2022-11-25] MEDS: traZODone 50 MG TAB 25 MG PO ×2 (08:18→22:14)
[2022-11-25] MEDS: Simethicone 80 MG CHEW 160 MG CH ×4 (08:18→22:12)
[2022-11-25] MEDS: buPROPion-XL 150 MG TABCR PO (08:18)
[2022-11-25] MEDS: Aspirin E.C. 81 MG TABEC PO (08:18)
[2022-11-25] MEDS: Carbidopa 25/Levodopa 100 TAB PO ×4 (08:18→22:15)
[2022-11-25] MEDS: Acetaminophen 500 MG TAB PO ×2 (08:19→22:14)
[2022-11-25] MEDS: Magnesium Oxide 400 MG TAB 800 MG PO ×2 (08:19→22:13)
[2022-11-25] MEDS: Vitamins B Comp w/C TAB 1 TAB PO (08:19)
[2022-11-25] MEDS: Docusate Sodium 100 MG CAP PO ×2 (08:19→22:16)
[2022-11-25] MEDS: lamoTRIgine 25 MG TAB 50 MG PO (08:19)
[2022-11-25] MEDS: Cetirizine 10 MG TAB PO (08:19)
[2022-11-25] MEDS: QUEtiapine 100 MG TAB PO ×2 (08:20→22:15)
[2022-11-25] MEDS: Multivitamin w/Minerals TAB 1 TAB PO (08:20)
[2022-11-25] MEDS: Gabapentin 600 MG TAB 1200 MG PO ×2 (08:20→22:14)
[2022-11-25] MEDS: Cyanocobalamin 500 MCG TAB 1000 MCG PO (08:20)
[2022-11-25] MEDS: Insulin Aspart 300 UNITS/3 ML PEN SC ×4 (08:21→22:12)
[2022-11-25] MEDS: Glycerin Adult Suppository JAR 1 SUPP PR (08:33)
[2022-11-25] MEDS: Fluticasone NASAL SPRAY 16 GM BTL NS ×2 (08:33→22:16)
[2022-11-25] MEDS: Diclofenac 1% Gel 100 GM TUBE TP ×2 (08:33→22:16)
[2022-11-25] MEDS: Albuterol HFA 8 GM 60 PUFF INH IH ×3 (08:34→19:38)
[2022-11-25 09:19] VITALS: BP 126/76; PULSE 98; RESP 16; TEMP 36.4; O2SAT 93
[2022-11-25] MEDS: Bisacodyl 10 MG SUPP PR (11:52)
--- NOTE | 2022-11-25 14:02 | W.PM.PROGNOT ---
Date of Service Date of service: 11/25/22 Time of Service: 14:02 Assessment and Plan Assessment and plan (1) Pyelonephritis: Status: Acute Assessment and plan: Continue Rocephin [address] Alvarez plans forureteroscopy and stent removal on Sunday (2) IDDM (insulin dependent diabetes mellitus): Assessment and plan: Cover with SSI. Hold jardiance in light of a UTI. (3) Nephrolithiasis: Assessment and plan: I could not see any prior stone analysis and no hx of 24 hour urines for calcium, oxalate, uric acid, or citrate. I will check these. In the interim she needs to be drinking at least 2 liters of water per day and she needs a low sodium diet. Consider addition of potassium citrate to her meds but will wait for 24 hr, urinary citrate level (4) Discharge planning issues: Status: Acute Assessment and plan: Full code per COLST form and and per Dr. Osorio's discussion w/ the patient. PT/OT consulted. Continues to require hospitalization. She will remain hospitalized until after her cystourteroscopy next week. Subjective Subjective Interval history since last seen: Ginger is eating ok. Still gets post prandial bloating. Per nurses charting her last BM was two days ago but patient insists that she had one yesterday. Nevertheless I will give her Relistor today along w/ her suppositories and her laxatives. Exam Narrative Exam Narrative: alert and oriented, Ginger is sitting up in her bed readings. LUngs: clear Heart: RRR Abdomen: obese, slight distension but not firm like yesterday, she has diffuse bowel sounds that sound tympanitic; there is no guarding and minimal tenderness w/ palpation Martinez draining clear yellow urine (she now has an external urinary catheter) Objective Last Vital Signs Temp 36.4 C L 11/25/22 09:19 Pulse 98 H 11/25/22 09:19 Resp 16 11/25/22 09:19 BP 126/76 11/25/22 09:19 Pulse Ox 93 11/25/22 09:19 Laboratory Results - last 24 hr 11/22/22 11/25/22 11/25/22 17:00 06:20 06:20 Sodium 139 Potassium 4.8 Chloride 101 Carbon Dioxide 28.8 Anion Gap 9.2 BUN 19 H Creatinine 0.8 Est GFR (CKD-EPI 2020) 83.26 Glucose 174 H Calcium 10.2 H Magnesium 2.0 Stool Campylobacter PCR Negative Stool Salmonella PCR Negative Stool Shigella PCR Negative Shiga Toxin (PCR) Negative Time Spent with Patient Time Spent with Patient: <25 minutes Time was spent: preparing to see the patient(eg.review tests), ordering medications,tests, procedures, indepentently interpreting results, counseling the patient and care coordination
[2022-11-25] MEDS: cefTRIAXone 2 GM/50 ML BAG IVPB (14:39)
[2022-11-25] MEDS: QUEtiapine 50 MG TAB PO (14:39)
[2022-11-25] MEDS: Enoxaparin 40 MG/0.4 ML SYR SC (16:45)
[2022-11-25] MEDS: Lidocaine 5% Patch 1 PATCH TP (18:34)
[2022-11-25] MEDS: Insulin Glargine 300 UNITS/3 ML PEN SC (22:11)
[2022-11-25] MEDS: rOPINIRole 0.5 MG TAB PO (22:13)
[2022-11-25] MEDS: Mirtazapine 15 MG TAB PO (22:15)
[2022-11-25] MEDS: Atorvastatin 20 MG TAB PO (22:15)
[2022-11-25] MEDS: Normal Saline Flush 10 ML SYR IVP (22:16)
[2022-11-25 23:52] VITALS: BP 104/66; PULSE 104; RESP 18; TEMP 37; O2SAT 96
[2022-11-26] MEDS: Levothyroxine 100 MCG TAB PO (05:37)
[2022-11-26] MEDS: Lidocaine Patch Removal 1 EACH TP (05:37)
[2022-11-26 07:18] VITALS: BP 109/67; PULSE 91; RESP 16; TEMP 36; O2SAT 97
[2022-11-26] MEDS: Aspirin E.C. 81 MG TABEC PO (08:03)
[2022-11-26] MEDS: Normal Saline Flush 10 ML SYR IVP ×4 (08:03→19:42)
[2022-11-26] MEDS: Polyethylene Glycol 3350 17 GM PACKET 8.5 GM PO (08:03)
[2022-11-26] MEDS: Carbidopa 25/Levodopa 100 TAB PO ×4 (08:04→19:44)
[2022-11-26] MEDS: Omeprazole 20 MG CAPCR 40 MG PO (08:04)
[2022-11-26] MEDS: buPROPion-XL 150 MG TABCR PO (08:04)
[2022-11-26] MEDS: traZODone 50 MG TAB 25 MG PO ×2 (08:04→19:43)
[2022-11-26] MEDS: Simethicone 80 MG CHEW 160 MG CH ×4 (08:04→19:43)
[2022-11-26] MEDS: Multivitamin w/Minerals TAB 1 TAB PO (08:05)
[2022-11-26] MEDS: Magnesium Oxide 400 MG TAB 800 MG PO ×2 (08:05→19:43)
[2022-11-26] MEDS: Cyanocobalamin 500 MCG TAB 1000 MCG PO (08:05)
[2022-11-26] MEDS: lamoTRIgine 25 MG TAB 50 MG PO (08:05)
[2022-11-26] MEDS: Vitamins B Comp w/C TAB 1 TAB PO (08:05)
[2022-11-26] MEDS: Cetirizine 10 MG TAB PO (08:05)
[2022-11-26] MEDS: Diclofenac 1% Gel 100 GM TUBE TP ×2 (08:06→19:55)
[2022-11-26] MEDS: Fluticasone NASAL SPRAY 16 GM BTL NS ×2 (08:06→19:54)
[2022-11-26] MEDS: Acetaminophen 500 MG TAB PO ×2 (08:06→19:44)
[2022-11-26] MEDS: Gabapentin 600 MG TAB 1200 MG PO ×2 (08:06→19:44)
[2022-11-26] MEDS: QUEtiapine 100 MG TAB PO ×2 (08:06→19:42)
[2022-11-26] MEDS: Docusate Sodium 100 MG CAP PO ×2 (08:06→19:43)
[2022-11-26] MEDS: Acetaminophen 325 MG TAB PO ×2 (08:07→14:03)
[2022-11-26] MEDS: Albuterol HFA 8 GM 60 PUFF INH IH ×3 (08:08→19:55)
[2022-11-26] MEDS: Insulin Aspart 300 UNITS/3 ML PEN SC ×6 (08:12→21:41)
--- NOTE | 2022-11-26 09:16 | W.PM.PROGNOT ---
Date of Service Date of service: 11/26/22 Time of Service: 09:16 Assessment and Plan Assessment and plan (1) Pyelonephritis: Status: Acute Assessment and plan: Continue Rocephin [address] Alvarez plans forureteroscopy and stent removal on Sunday Professional time spent interviewing and examining patient, discussion of goals of care with hospital team (care management, nursing and consulting professionals) was 20 minutes. (2) IDDM (insulin dependent diabetes mellitus): Assessment and plan: Made adjustments in her Lantus as well as added mealtime coverage with NovoLog. Continue use of sliding scale NovoLog. Hold jardiance in light of a UTI. (3) Nephrolithiasis: Assessment and plan: I could not see any prior stone analysis and no hx of 24 hour urines for calcium, oxalate, uric acid, or citrate. Currently collecting 24-hour urine. Stone analysis should be sent on any stones or retrieved during her cystoscopy ureteroscopy. (4) Discharge planning issues: Status: Acute Assessment and plan: Full code per COLST form and and per Dr. Osorio's discussion w/ the patient. PT/OT consulted. Continues to require hospitalization. She will remain hospitalized until after her cystourteroscopy next week. Subjective Subjective Interval history since last seen: Patient is complaining of having the Martinez catheter replaced. She prefers the external catheter. I explained to her that the Martinez catheter was placed in order to obtain an more accurate 24-hour urine collection which we need to assess her risk factors for stone formation. Otherwise she has no other acute concerns. Still gets bloating after meals but then has dumping of her bowels afterwards. She has been seen by GI @ [facility] and reportedly had a follow up appointment. I question her as to whether or not she had work-up for celiac disease and she was unsure about this she just knows that she was supposed to have a follow-up EGD and colonoscopy. Exam Narrative Exam Narrative: Ginger is alert and oriented person place and circumstance sitting up in bed she just put her make-up on she is watching TV she is in no acute distress. Lungs clear to auscultation Heart is regular rate and rhythm Abdomen slight distention but abdomen is not firm it remains soft normal bowel sounds Extremities without peripheral cyanosis or edema. Right foot remains in a soft ankle foot cushion. Martinez catheter is draining clear yellow urine. Objective Last Vital Signs Temp 36.0 C L 11/26/22 07:18 Pulse 91 H 11/26/22 07:18 Resp 16 11/26/22 07:18 BP 109/67 11/26/22 07:18 Pulse Ox 97 11/26/22 07:18 Time Spent with Patient Time Spent with Patient: <25 minutes Time was spent: preparing to see the patient(eg.review tests), ordering medications,tests, procedures, referring, communicating with other health direct care counselor (Patient's primary nurse), counseling the patient and care coordination
[2022-11-26] MEDS: Glycerin Adult Suppository JAR 1 SUPP PR (10:35)
[2022-11-26] MEDS: traMADol 50 MG TAB PO ×3 (10:35→21:40)
[2022-11-26 11:00] VITALS: BP 109/68; PULSE 89; RESP 16; TEMP 36; O2SAT 96
[2022-11-26] MEDS: QUEtiapine 50 MG TAB PO (14:03)
[2022-11-26] MEDS: cefTRIAXone 2 GM/50 ML BAG IVPB (14:04)
[2022-11-26] MEDS: Normal Saline 500 ML 100 ML IV (14:04)
[2022-11-26 14:51] VITALS: BP 113/71; PULSE 93; RESP 14; TEMP 36.9; O2SAT 95
[2022-11-26] MEDS: Enoxaparin 40 MG/0.4 ML SYR SC (16:08)
[2022-11-26] MEDS: Lidocaine 5% Patch 1 PATCH TP (18:37)
[2022-11-26] MEDS: Atorvastatin 20 MG TAB PO (19:43)
[2022-11-26] MEDS: ALPRAZolam 0.25 MG TAB PO (21:40)
[2022-11-26] MEDS: Mirtazapine 15 MG TAB PO (21:41)
[2022-11-26] MEDS: Senna TAB 1 TAB PO (21:41)
[2022-11-26] MEDS: Insulin Glargine 300 UNITS/3 ML PEN 8 UNITS SC (21:41)
[2022-11-26] MEDS: rOPINIRole 0.5 MG TAB PO (21:41)
[2022-11-26 23:15] VITALS: BP 107/68; PULSE 95; RESP 18; TEMP 36.5; O2SAT 96
[2022-11-26 23:52] LABS: Total Volume 3450 ml
[2022-11-26 23:53] LABS: Creatinine,Urine < 13 mg/dL
[2022-11-27] VITALS (7 sets, daily range): BP systolic 93–140; BP diastolic 48–77; PULSE 83–87; RESP 10–18; TEMP 36.1–36.9; O2SAT 96–99; BMI 27.4
[2022-11-27] MEDS: ALPRAZolam 0.25 MG TAB PO ×4 (05:53→20:55)
[2022-11-27] MEDS: traMADol 50 MG TAB PO ×4 (05:53→20:55)
[2022-11-27] MEDS: Levothyroxine 100 MCG TAB PO (05:53)
[2022-11-27] MEDS: Lidocaine Patch Removal 1 EACH TP (06:09)
--- NOTE | 2022-11-27 07:46 | OTDS_ITS ---
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 She is admitted with the following dx of abdominal pain, hypotension, pyelonephritis, microcytic anemia, emphysematous pyelonephritis, pyuria due to bacterial UTI, hydronephrosis of (R) kidney, gallstones, cough, Ileus, Tardiv dyskinesia, parkinsonism, hx of multiple strokes, bipolar disorder, depression. Her goal at initial evaluation was to be (I) with (L) UE strengthening which she notes is just to maintain her mobility in her (L) UE. Past Medical History- All Active Problems?(Updated 11/20/22 @ 16:13 by Yojana Osorio MD) Hypotension (Acute) DVT prophylaxis (Acute) Pyelonephritis (Acute) Microcytic anemia (Acute) Emphysematous pyelonephritis (Acute) Pyuria due to bacterial urinary tract infection (Acute) Hydronephrosis of right kidney (Acute) Gallstones (Acute) Arthritis of left shoulder region (Acute) Cough (Acute) Ileus (Acute) Tardive dyskinesia (Acute) Parkinsonism (Acute) History of stroke (Acute) Chronic chest pain (Chronic) Discharge planning issues (Acute) Constipation (Chronic) Bipolar 1 disorder (Chronic) Bipolar affective disorder, current episode depressed (Acute) rule out bipolar disorder reported by patient. Antiepileptics maybe preventing manic episode.Major depressive disorder, recurrent, severe with psychotic features (Acute) Current presentation is depression.? She may have bipolar affective disorder.Ambulatory dysfunction (Chronic) Hemiparesis affecting right side as late effect of cerebrovascular accident (Acute) Dysphagia as late effect of cerebrovascular accident (CVA) (Chronic) Dysarthria as late effect of cerebrovascular accident (CVA) (Acute) Aphasia as late effect of cerebrovascular accident (Acute) Neck pain (Acute) Autoimmune disorder (Acute) Medical History? DALTON (acute kidney injury) Anxiety Bipolar 1 disorder Cholelithiasis with acute cholecystitis s/p cholecystostomy and stone extraction in 2014 ([facility]), tube now pulled. 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 Abnormal cholangiogram H/O cervical spine surgery H/O foot surgery H/O wrist surgery History of [facility] of renal calculus [facility] M[facility]istory of hip surgery rightHistory of lumbosacral spine surgery S/P cystoscopy with ureteral stent placement [facility] 11/2018Status post creation of urethral sling by suprapubic approach Family History? 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 She states that for years now she has been totally max (A) for all ADLs/IADL routines including dressing, bathing, toileting, functional mobility and eating at times. She does reports that with built up handles if her tremor is well managed that she is able to perform her eating routine with (A), but notes that this is significantly impacted by her tremor. Equipment owned/DME: Provided per DME SUBJECTIVE:??NT OBJECTIVE: SENSATION: Numbness and tingling in (R) UE which is chronic in nature FUNCTIONAL MOBILITY/ADLS:? Based on initial evaluation consult- not assessed on todays date for this documentation. Transfers Unable to transfer without mechanical lift. BATHING She reports that she is max (A) and states that she has been for years. DRESSING Pt is max (A) dressing. When assessing don and doffing hospital gown she is unable to (A) due to decreased motor control particularly related to her PArkinsons dx.She is max (A) with don and doffing (B) socks due to contractures in (R) UE, (B) hips as well as inability to stay in seated position due to pain. GROOMING Pt is able to bring her (L) UE to her hair, this is also dependent on her tremor and motor control. Pt states that she is not (I) with her teeth care. TOILETING pt is mechanically lifted to perform functional mobility and will require (A) With toileting hygiene due to contractures and decreased field counsel strength. EATING Pt stated that at times she utilizes built up handles for her eating routine. OT does feel that if pts tremor and motor control are doing well that pt will be able to field counsel silverware and bring hand to mouth with (A). She states that at the [facility] they perform max (A) for all eating routines. She would like to be (I) with this but is lacking fine motor control and strength in her (L) UE with minimal use of her (R). BALANCE: Static sitting Fair to good requires max back support Dynamic Sitting Poor Static Standing NT Dynamic Standing NT ASSESSMENT:?? Patient is a 62-year-old female referred to occupational therapy services with diagnosis of abdominal pain, hypotension, pyelonephritis, micro cytic anemia, emphysematous pyelonephritis, pyuria due to bacterial UTI, hydronephrosis of (R) kidney, gallstones, cough, Ileus, Tardiv dyskinesia, parkinsonism, hx of multiple strokes, bipolar disorder, depression . Pt requires (A) for her ADLs but noted at evaluation that she wanted a strengthening routine to perform to (A) with her (L) UE. Strengthening Program to be performed with yellow band: Bicep curls 10x, 3x/day Shoulder flexion 10x, 3x/day Crossing midline 10, 3x/day Inbound Call Center Agent strength with foam cube throughout the day Tip pinch with foam cube throughout the day GOALS-1 week 1.?Pt will be (I) and compliant with (L) UE strengthening program to (A) with functional activities- met PLAN OF CARE/TREATMENT PLAN: Discharge from OT services. DISCHARGE RECOMMENDATIONS Return to [facility] TREATMENT TIME/MINUTES/CODES N/A Summer Ventura OTR/[facility]
[2022-11-27] MEDS: Albuterol HFA 8 GM 60 PUFF INH IH ×2 (08:34→19:55)
[2022-11-27 09:13] LABS: Homocysteine 13.4 umol/L (5.0-13.9)
[2022-11-27] MEDS: Normal Saline Flush 10 ML SYR IVP ×2 (09:37→20:35)
--- NOTE | 2022-11-27 11:03 | CMPROGNOTE_ITS ---
- If Service Date Differs Date of service: 11/27/22 Time of Service: 11:04 Care Management Progress Note S/O: Ginger remains on antibiotics, Dr. Alvarez scheduled her for the OR today for forureteroscopy and stent removal. Ginger will return to the [facility] when ready per MD, likely tomorrow. CM will continue to follow. A: 62 year old female admitted to [facility] 11/20/22 for sepsis due to Pyelonephritis, present on admission P: Ginger will return to the [facility] when medically cleared. She will likely transport via EMS, coordinated by CM. She will follow up with facility providers and discharge plan of care. CM will continue to follow.
--- NOTE | 2022-11-27 11:57 | ANES.PREOP_ITS ---
General Info Date of Service Date Performed: 11/27/22 Height: 5 ft 6 in Weight: 77.2 kg Body Mass Index (BMI): 27.4 Surgical Procedure: Operation Date: 11/27/22 13:10 Proposed Procedure Side Surgeon p Cystoscopy/Retrograde/Ureteroscopy/Removal Ureteral Stent Right Danny Alvarez MD Meds Allergies and Home Medications Allergies Allergy/AdvReac Type Severity Reaction Status Date / Time naproxen [From Aleve] Allergy Unknown Itching Unverified 11/20/22 11:56 Penicillins Allergy Unknown Itching Unverified 11/20/22 11:56 propoxyphene Allergy Unknown Itching Unverified 11/20/22 11:56 Sulfa (Sulfonamide Allergy Unknown Itching Unverified 11/20/22 11:56 Antibiotics) methadone Allergy Verified 11/20/22 11:56 Home Medication Medication Instructions Recorded docusate sodium 100 mg capsule 100 mg PO .BID, PRN 03/26/20 (Colace) mirtazapine 15 mg tablet 15 mg PO QHS 03/26/20 lamotrigine 25 mg tablet (Lamictal) 50 mg PO DAILY #1 tab 04/08/20 polyethylene glycol 3350 17 17 g PO DAILY PRN 04/19/20 gram/dose oral powder (Miralax) trazodone 50 mg tablet 25 mg PO BID 07/07/20 bisacodyl 10 mg rectal suppository 10 mg [place] ONCE PRN 08/17/20 metformin 500 mg tablet 1,000 mg PO BID 12/20/20 lactase 3,000 unit tablet (Lactaid) 9,000 unit PO TID 06/22/21 quetiapine 100 mg tablet 50 mg PO DAILY 06/22/21 acetaminophen 500 mg tablet 500 mg PO BID 06/01/22 albuterol sulfate 90 mcg/actuation 2 inh inhalation TID 06/01/22 aerosol inhaler (Ventolin HFA) aspirin 81 mg tablet,delayed 81 mg PO DAILY 06/01/22 release bupropion HCl 150 mg 24 hr tablet, 150 mg PO QAM 06/01/22 extended release cetirizine 10 mg tablet 10 mg PO QAM 06/01/22 diclofenac sodium 1 % topical gel 1 applic topical BID 06/01/22 dulaglutide 1.5 mg/0.5 mL 1 device subcut DIRECTED 06/01/22 subcutaneous pen injector (Trulicity) empagliflozin 25 mg tablet 1 tab PO DAILY 06/01/22 (Jardiance) fluticasone propionate 50 1 spray intranasal BID 06/01/22 mcg/actuation nasal spray,suspension (Flonase Allergy Relief) gabapentin 600 mg tablet 2 tab PO BID 06/01/22 linaclotide 145 mcg capsule 145 mcg PO DAILY 06/01/22 magnesium oxide 800 mg PO DAILY 06/01/22 quetiapine 100 mg tablet 100 mg PO BID 06/01/22 sennosides 8.6 mg tablet 17.2 mg PO HS PRN 06/01/22 simethicone 180 mg capsule 1 cap PO QID PRN 06/13/22 B-complex with vitamin C 1 cap PO DAILY 11/09/22 carbidopa 25 mg-levodopa 100 mg 1 tab PO QID 11/09/22 tablet levothyroxine 100 mcg tablet 100 mcg PO DAILY 11/09/22 multivitamin-ferrous 1 tab PO DAILY 11/09/22 fumarate-folic acid 18 mg-400 mcg tablet (Centrum Complete) omeprazole 20 mg capsule,delayed 20 mg PO DAILY 11/09/22 release [id number]-[id number] 5 10 ml PO Q4H PRN 11/09/22 mg-10 mg-100 mg/5 mL oral liquid ropinirole 0.5 mg tablet 0.5 mg PO QHS 11/09/22 Current Visit Medications: Current Medications Generic Name Dose Route Start Last Admin Trade Name Freq PRN Reason Stop Dose Admin Acetaminophen 0 mg 11/20/22 15:29 11/26/22 14:03 Acetaminophen 325 Mg Tab PO 650 mg Q4H PRN PRN Administration Acetaminophen 500 mg 11/20/22 20:00 11/27/22 08:52 Acetaminophen 500 Mg Tab PO Not Given BID HANSA Al Hydrox/Mg Hydrox/Simethicone 30 ml 11/20/22 15:29 Mylanta Suspension 30 Ml Cup PO Q2H PRN PRN Albuterol Sulfate 2 puff 11/20/22 20:00 11/27/22 08:34 Albuterol Hfa 8 Gm 60 Puff Inh IH 2 puffs TID HANSA Administration Alprazolam 0.25 mg 11/22/22 10:58 11/27/22 10:05 Alprazolam 0.25 Mg Tab PO 0.25 mg BID PRN PRN Administration Aspirin 81 mg 11/21/22 08:30 11/27/22 08:53 Aspirin E.C. 81 Mg Tabec PO Not Given DAILY [facility] Atorvastatin Calcium 20 mg 11/21/22 20:00 11/26/22 19:43 Atorvastatin 20 Mg Tab PO 20 mg QPM HANSA Administration Bisacodyl 10 mg 11/25/22 11:18 Bisacodyl 10 Mg Supp [place] DAILY PRN PRN Bupropion HCl 150 mg 11/21/22 08:30 11/27/22 08:53 Bupropion-Xl 150 Mg Tabcr PO Not Given QAM [facility] Carbidopa/Levodopa 1 tab 11/20/22 20:00 11/27/22 11:14 Carbidopa 25/Levodopa 100 Tab PO Not Given QID [facility] Cetirizine HCl 10 mg 11/21/22 08:30 11/27/22 08:53 Cetirizine 10 Mg Tab PO Not Given QAM [facility] Cyanocobalamin 1,000 mcg 11/21/22 08:30 11/27/22 08:53 Cyanocobalamin 500 Mcg Tab PO Not Given DAILY [facility] Device 1 each 11/20/22 17:00 11/20/22 17:08 Inhaler, Assist Device MC 1 device DIRECTED HANSA Administration Dextrose 0 gm 11/20/22 16:11 Glucose Oral Gel 15 Gm/37.5 Gm Tube PO DIRECTED PRN Dextrose/Water 0 gm 11/20/22 16:11 Dextrose 50%-Water 25 Gm/50 Ml Syr IVP DIRECTED PRN Diclofenac Sodium 0 gm 11/20/22 20:00 11/27/22 08:54 Diclofenac 1% Gel 100 Gm Tube TP Not Given BID [facility] Dimethicone/Zinc Oxide 0 gm 11/20/22 15:23 11/20/22 21:29 Mckayla Protect Cream 142 Gm Tube TP 1 tube PRN PRN Administration Docusate Sodium 100 mg 11/20/22 15:29 Docusate Sodium 100 Mg Cap PO TID PRN PRN Docusate Sodium 100 mg 11/20/22 20:00 11/27/22 08:46 Docusate Sodium 100 Mg Cap PO Not Given BID [facility] Enoxaparin Sodium 40 mg 11/20/22 16:00 11/26/22 16:08 Enoxaparin 40 Mg/0.4 Ml Syr SC 40 mg Q24H HANSA Administration Fluticasone Propionate 0 gm 11/20/22 20:00 11/27/22 09:37 Fluticasone Nasal Cary 16 Gm Btl NS Not Given BID [facility] Gabapentin 1,200 mg 11/20/22 20:00 11/27/22 09:37 Gabapentin 600 Mg Tab PO Not Given BID [facility] Glycerin 1 supp 11/23/22 08:30 11/27/22 08:46 Glycerin Adult Suppository Jar [place] Not Given DAILY [facility] Ceftriaxone Sodium/Dextrose 2 gm in 50 mls @ 100 mls/hr 11/21/22 14:00 03/02/13 14:34 Rocephin IVPB Infused Q24H [facility] Infusion Sodium Chloride 500 mls @ 0 mls/hr 11/25/22 09:35 11/26/22 14:34 Saline 500ml Bag IV 100 mls/hr PRN PRN Infusion As Directed Sodium Chloride 50 mls @ 0 mls/hr 11/25/22 09:35 Saline 50ml Bag IV PRN PRN As Directed IV Miscellaneous Supplies 1 each 11/20/22 12:30 Iv Access IV DIRECTED [facility] Insulin Aspart 0 units 11/20/22 17:00 11/27/22 08:52 Insulin Aspart 300 Units/3 Ml Pen SC Not Given 0800,1200,1700,2200 [facility] Protocol Insulin Aspart 0 units 11/26/22 12:00 11/27/22 08:53 Insulin Aspart 300 Units/3 Ml Pen SC Not Given 0800,1200,1700 [facility] Insulin Glargine 8 units 11/26/22 22:00 11/26/22 21:41 Insulin Glargine 300 Units/3 Ml Pen SC 8 units [facility] Administration Iron/Minerals/Multivitamins 1 tab 11/21/22 08:30 11/27/22 09:37 Multivitamin W/Minerals Tab PO Not Given DAILY HANSA Lactase 3 cap 11/21/22 08:00 11/27/22 11:14 Lactase Enzyme Cap PO Not Given QMEALS [facility] Lactase 3 cap 11/20/22 17:43 11/25/22 08:20 Lactase Enzyme Cap PO 3 cap PRN PRN Administration Lamotrigine 50 mg 11/21/22 08:30 11/27/22 09:37 Lamotrigine 25 Mg Tab PO Not Given DAILY HANSA Levothyroxine Sodium 100 mcg 11/21/22 06:00 11/27/22 05:53 Levothyroxine 100 Mcg Tab PO 100 mcg DAILY@0600 [facility] Administration Lidocaine 1 patch 11/23/22 18:00 11/26/22 18:37 Lidocaine 5% Patch TP 1 patch Q24H HANSA Administration Magnesium Hydroxide 30 ml 11/20/22 15:29 Milk Of Magnesia 30 Ml Cup PO DAILY PRN PRN Magnesium Oxide 800 mg 11/23/22 08:30 11/27/22 09:37 Magnesium Oxide 400 Mg Tab PO Not Given BID HANSA Mirtazapine 15 mg 11/20/22 22:00 11/26/22 21:41 Mirtazapine 15 Mg Tab PO 15 mg HS [facility] Administration Miscellaneous 1 each 11/24/22 06:00 11/27/22 06:09 Lidocaine Patch Removal TP 1 each Q24H HANSA Administration Omeprazole 40 mg 11/21/22 07:30 11/27/22 08:52 Omeprazole 20 Mg Capcr PO Not Given DAILY@0730 [facility] Patient's Own 1 each 11/22/22 15:00 11/27/22 09:38 Medication (Linzess PO Not Given 145 Mcg Capsule) DAILY [facility] Polyethylene Glycol 8.5 gm 11/23/22 08:30 11/27/22 08:47 Polyethylene Glycol 3350 17 Gm Packet PO Not Given DAILY [facility] Quetiapine Fumarate 50 mg 11/21/22 14:00 11/26/22 14:03 Quetiapine 50 Mg Tab PO 50 mg DAILY@1400 [facility] Administration Quetiapine Fumarate 100 mg 11/20/22 20:00 11/27/22 09:38 Quetiapine 100 Mg Tab PO Not Given BID HANSA Ropinirole HCl 0.5 mg 11/20/22 22:00 11/26/22 21:41 Ropinirole 0.5 Mg Tab PO 0.5 mg HS HANSA Administration Sennosides 1 tab 11/26/22 22:00 11/26/22 21:41 Senna Tab PO 1 tab HS HANSA Administration Simethicone 160 mg 11/22/22 12:00 11/27/22 11:15 Simethicone 80 Mg Chew CH Not Given QID HANSA Sodium Chloride 0 ml 11/20/22 12:24 11/26/22 15:26 Normal Saline Flush 10 Ml Syr IVP 20 ml PRN PRN Administration Sodium Chloride 0 ml 11/25/22 20:00 11/27/22 09:37 Normal Saline Flush 10 Ml Syr IVP 10 ml BID HANSA Administration Tramadol HCl 50 mg 11/22/22 11:01 11/27/22 10:05 Tramadol 50 Mg Tab PO 50 mg Q4H PRN PRN Administration Trazodone HCl 25 mg 11/20/22 20:00 11/27/22 08:47 Trazodone 50 Mg Tab PO Not Given BID HANSA Vitamin B Complex/Vitamin C 1 tab 11/21/22 08:30 11/27/22 09:38 Vitamins B Comp W/C Tab PO Not Given DAILY HANSA PFSH Active Problems Active Problems: Problem Status Onset Code Abdominal pain R10.9 Hypotension I95.9 DVT prophylaxis Z29.9 Pyelonephritis N12 Microcytic anemia D50.9 Emphysematous pyelonephritis N12 Pyuria due to bacterial urinary tract infection N39.0 Hydronephrosis of right kidney N13.30 Gallstones K80.20 Arthritis of left shoulder region M19.012 Cough R05 Ileus K56.7 Tardive dyskinesia G24.01 Parkinsonism G20 History of stroke Z86.73 Chronic chest pain R07.9, G89.29 Discharge planning issues Z02.9 Constipation K59.00 Bipolar 1 disorder F31.9 Bipolar affective disorder, current episode depressed F31.30 Major depressive disorder, recurrent, severe with psychotic features F33.3 Ambulatory dysfunction R26.2 Hemiparesis affecting right side as late effect of cerebrovascular accident I69.351 Dysphagia as late effect of cerebrovascular accident (CVA) I69.391 Dysarthria as late effect of cerebrovascular accident (CVA) I69.322 Aphasia as late effect of cerebrovascular accident I69.320 Neck pain M54.2 Autoimmune disorder M35.9 Medical History Medical History DALTON (acute kidney injury) Anxiety Bipolar 1 disorder Cholelithiasis with acute cholecystitis s/p cholecystostomy and stone extraction in 2014 ([facility]), tube now pulled. 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 Complicated UTI (urinary tract infection) Diverticulosis Hemiparesis affecting right side as late effect of cerebrovascular accident (CVA) Hepatitis C History of multiple cerebrovascular accidents (CVAs) Hypertension Hypothyroidism IDDM (insulin dependent diabetes mellitus) Left rotator cuff tear Lumbar disc disease Nephrolithiasis Neurogenic bladder Obesity (BMI 30.0-34.9) Palliative care encounter Septic shock Staghorn calculus Static encephalopathy Steroid dependent Uterine mass likely a fibroid UTI (urinary tract infection) Surgical History Surgical History Abnormal cholangiogram H/O cervical spine surgery H/O foot surgery H/O wrist surgery History of extraction of renal calculus 12/13/2018 - [facility] History of hip surgery right History of lumbosacral spine surgery S/P cystoscopy with ureteral stent placement UV 11/2018 Status post creation of urethral sling by suprapubic approach Tobacco Smoking/Tobacco Use Status: Former Tobacco Use Alcohol Alcohol Intake: former Substance Use Substance use type: former substance user and IV drugs Vital Signs and Lab Results Vital Signs Most Recent Vital Signs in EMR: Most Recent Vital Signs Temp Pulse Resp BP Pulse Ox 36.6 C 87 18 113/77 96 11/27/22 10:08 11/27/22 10:08 11/27/22 10:08 11/27/22 10:08 11/27/22 10:08 Point of Care Results Point of Care Results: Finger Stick Blood Glucose 232 11/27/22 07:24 Lab Results 11/24/22 07:22 11/25/22 06:20 Blood Type / Crossmatch: Patient ABO/Rh A Positive 11/09/22 Antibody Screen NEGATIVE 11/09/22 Crossmatch See Detail 11/09/22 Complete Blood Count: White Blood Count 8.69 10^3/uL (4.4-10.8) 11/24/22 07:22 Red Blood Count 4.26 10^6/uL (3.93-5.22) 11/24/22 07:22 Hemoglobin 9.4 g/dL (11.2-15.7) L 11/24/22 07:22 Hematocrit 34.2 % (36.0-46.0) L 11/24/22 07:22 Platelet Count 441 10^3/uL (130-400) H 11/24/22 07:22 Venous Blood Lactate 1.0 mmol/L (0.6-1.4) 11/20/22 12:43 Complete Metabolic Panel: Sodium 139 mmol/L (136-145) 11/25/22 06:20 Potassium 4.8 mmol/L (3.5-5.1) 11/25/22 06:20 Chloride 101 mmol/L (98-107) 11/25/22 06:20 Carbon Dioxide 28.8 mmol/L (21.0-32.0) 11/25/22 06:20 BUN 19 mg/dL (7-18) H 11/25/22 06:20 Creatinine 0.8 mg/dL (0.55-1.02) 11/25/22 06:20 Est GFR (CKD-EPI 2020) 83.26 (mL/min/1.73m2) 11/25/22 06:20 Magnesium 2.0 mg/dL (1.8-2.4) 11/25/22 06:20 Calcium 10.2 mg/dL (8.5-10.1) H 11/25/22 06:20 Albumin 3.2 g/dL (3.4-5.0) L 11/20/22 12:43 Glucose 174 mg/dL (74-106) H 11/25/22 06:20 Hemoglobin A1c 6.9 % (<5.7) H 11/10/22 05:30 C-Reactive Protein 16.70 mg/dL (0.0-0.3) H 11/24/22 07:22 Liver Function Panel: Alanine Aminotransferase (ALT/SGPT) 9 U/L (14-59) L 11/20/22 12 :43 Aspartate Amino Transf (AST/SGOT) 38 U/L (15-37) H 11/20/22 12: 43 Coagulation Panel: No Data to Display Cardiac Panel: No Data to Display Arterial Blood Gas: No Data to Display Venous Blood Gas: Venous Blood pH 7.26 (7.31-7.41) L 11/09/22 20:10 Venous Blood Partial Pressure O2 55 mmHg 11/09/22 20:10 Venous Blood Partial Pressure CO2 47 mmHg (41-51) 11/09/22 20:1 0 Venous Blood Oxygen Saturation 83 % 11/09/22 20:10 Venous Blood HCO3 21 mmol/L (23-28) L 11/09/22 20:10 Venous Blood Base Excess -6 mmol/L (-2-3) L 11/09/22 20:10 Venous Blood Total Carbon Dioxide 21 mmol/L (24-29) L 11/09/22 20:10 Pancreas Panel: Lipase 32 U/L (16-77) 11/20/22 12:43 Thyroid Panel: No Data to Display Infectious Disease: Coronavirus (COVID-19)(PCR) Negative (Negative) 11/20/22 12:49 Coronavirus 2019 Source Nasopharynx 11/20/22 12:49 Influenza Virus Type A (PCR) Negative (Negative) 11/20/22 12:4 9 Influenza Virus Type B (PCR) Negative (Negative) 11/20/22 12:4 9 Respiratory Syncytial Virus (PCR) Negative (Negative) 11/20/22 12:49 Blood Cultures: No Data to Display Toxicology Panel: No Data to Display Imaging and Studies Imaging and Studies Study information below may be from another EMR and interpreted by another provider. Please see original notes in EMR for more complete details. EKG Summary: 06/01/2022: Conclusion Sinus rhythm...normal P axis, V-rate 60- 99 Low voltage, precordial leads...precordial leads <1.0mV. Sinus. Normal axis. No STEMI. I have reviewed and interpreted ECG and agree with software generated interpretation. Echocardiogram Summary: 06/09/2020: Conclusion This is a technically limited study Left Ventricle : The left ventricle is normal size. The left ventricular systolic function is normal. The left ventricular ejection fraction is within the normal range. There is normal left ventricular wall thickness. There is normal LV segmental wall motion. Transmitral Doppler flow pattern suggests impaired LV relaxation. LVEF is 55%. Right Ventricle : Right ventricle is not well visualized. Right ventricular systolic function could not be assessed. Atria : The left atrium size is normal. Right atrium is not well visualized. Valves: There are no hemodynamically significant valvular lesions. Great Vessels : The aortic root is normal in size. The ascending aorta is normal in size. IVC is normal in size and collapses >50% with inspiration. Anesthesia Assessment and Plan Anesthesia History Personal History: No History of Anesthesia Complications Family History: No Family History of Anesthesia Complications Exercise Tolerance Exercise Tolerance: Metabolic Equivalents<4 Cardiac & Pulmonary Exam Cardiac Exam: Normal S1/S2 Heart Sounds Pulmonary Exam: Clear Bilateral Breath Sounds Implantable Cardiac Device Does patient have a Pacemaker or an ICD?: No Airway Exam Known Difficult Airway: No Mallampati Class: 4 Mouth Opening: Narrow (< 3cm) Thyromental Distance: Greater than 3 cm Neck Range of Motion: Limited ROM Neck Circumference: Thick Teeth Condition: Edentulous ASA Classification ASA Score: ASA 3 Emergency Case?: No NPO Status NPO Status: NPO Clears >2 hours, Solids >8 hours Anesthesia Plan Resuscitation Status: Full Code Anesthesia Technique: General Anesthesia Airway Planned: Natural Airway Monitors Used: Standard Monitors
--- NOTE | 2022-11-27 12:06 | W.PM.PROGNOT ---
Date of Service Date of service: 11/27/22 Time of Service: 12:06 Assessment and Plan Assessment and plan (1) Pyelonephritis: Status: Acute Assessment and plan: continue Rocephin 2 gm daily. Upon discharge I will put her on Fosfomycin 3 gm q3 days for another week. Professional time spent interviewing and examining patient, discussion of goals of care with hospital team (care management, nursing and consulting professionals) was 20 minutes. (2) IDDM (insulin dependent diabetes mellitus): Assessment and plan: Made adjustments in her Lantus as well as added mealtime coverage with NovoLog. Continue use of sliding scale NovoLog. Hold jardiance in light of a UTI. (3) Nephrolithiasis: Assessment and plan: awaiting 24 hr urine collection results. I have ordered stone analysis on any stones that are retrieved from todays cystoureteroscopy. Otherwise encourage her to drink at least 2 liter water per day and remain on low sodium diet. If her urinary citrate excretion is low then consider addition of potassium citrate to her meds. (4) Abdominal bloating: Status: Acute Assessment and plan: patient is on simethacone and she is on a good bowel regimen to prevent constipation. I have ordered labs for antibody testing for celiac disease. She needs to follow w/ [place] [facility] (5) Discharge planning issues: Status: Acute Assessment and plan: Full code per COLST form and and per Dr. Osorio's discussion w/ the patient. PT/OT consulted. Continues to require hospitalization. I anticipate dc back to SNF tomorrow Subjective Subjective Interval history since last seen: patient states that she continues to have abdominal bloating and pain. Martinez was removed last night after completion of her 24 hr urine collection for oxalate, uric acid, calcium, creatinine, and citrate. Patient is insistent that just because the urinary stent is removed that this does not clear up her problems. She stated that they need to remove the gall stones, I reminded her that she does not have gall stones but has kidney stones however she had no obstruction of her ureters on admission CT scan. However, I also told her that if we can determine the type of stone she has had in the past or find abnormalities on her urinary collection, then we may be able to adjust her meds and diet to prevent future nephrolithiasis. Exam Narrative Exam Narrative: Ginegr is anxious, but alert Lungs: clear Heart: RRR Abdomen: distended, firm but not hard, normal bowel sounds Objective Last Vital Signs Temp 36.1 C L 11/27/22 12:02 Pulse 86 11/27/22 12:02 Resp 18 11/27/22 12:02 BP 119/73 11/27/22 12:02 Pulse Ox 96 11/27/22 12:02 Laboratory Results - last 24 hr 11/24/22 11/26/22 07:22 21:05 Homocysteine 13.4 Ur Random Creatinine < 13 Urine Total Volume 3450 Ur Creatinine 24 Hour Time Spent with Patient Time Spent with Patient: <25 minutes Time was spent: preparing to see the patient(eg.review tests), ordering medications,tests, procedures, counseling the patient and care coordination
--- NOTE | 2022-11-27 12:26 | NUR.NOTE ---
pt transported to OR by 2 RNs pt is aox4. no acute distress noted. vss. report to receiving [employer]
[2022-11-27] MEDS: cefTRIAXone 1 GM/50 ML BAG IVPB (12:33)
[2022-11-27] MEDS: Lactated Ringers 1,000 ML 30 ML IV (12:33)
[2022-11-27] MEDS: Omnipaque 300 MG/ML 50 ML BTL (13:08)
[2022-11-27] MEDS: Lidocaine 2% Jelly 6 ML SYR (13:08)
--- NOTE | 2022-11-27 14:11 | DI.RAD_ITS ---
Exam(s) XR RETROGRADE IN OR EXAM: XR RETROGRADE IN OR CLINICAL HISTORY: Pyelonephritis. TECHNIQUE: Fluoroscopy was provided for the referring physician for guidance with performing a retro grade procedure. COMPARISON: CR,XR XR ABDOMEN FLAT PLATE from 11/21/2022 FINDINGS: Please see procedure note for details. Fluoro time: 40.3 seconds RADIATION DOSE DELIVERED: tamia Rascon=10.17 mGy
--- NOTE | 2022-11-27 14:18 | W.PM.OP ---
Date of service: 11/27/22 Time of Service: 14:18 Operative Note Operative Note DATE OF PROCEDURE: 11/27/22 PRE-OP DIAGNOSIS: Emphysematous pyelonephritis PROCEDURE: Cystoscopy, remove right ureteral stent, right retrograde pyelogram, right flexible ureteroscopy with extraction of necrotic tissue and stones, insert right ureteral stent SURGEON: Danny Alvarez ANESTHESIA TYPE: General:No Airway Refer to Anesthesia Record ESTIMATED BLOOD LOSS: 10 PATHOLOGY: other (Stones for chemical analysis) COMPLICATIONS: None Patient was transported to: PACU Patient's condition: stable Implants: 6 Serbian by 22 to 30 cm left ureteral stent Indications: This is a 62-year-old woman who has a history of staghorn stones. She has had percutaneous nephrolithotomy in the past. She recently presented with emphysematous pyelonephritis. We placed a ureteral stent to drain her kidney. She clinically improved but then returned to the emergency department with abdominal pain. Her CT scan showed no hydronephrosis and no perinephric fluid, but her urine grew Proteus. She has been treated with IV ceftriaxone. She presents now for stent removal and ureteroscopy to remove any underlying renal stone Findings: Large amount of necrotic debris within the upper ureter and calyces Multiple small stones in the kidney Procedure Description: The patient was given a dose of IV ceftriaxone. She is brought to the operating room on 11/27/2022. After successful induction of general anesthesia, she was placed in the dorsal lithotomy position. Her genitalia was prepped and draped. 2% Xylocaine jelly was instilled into the urethra to act as a local anesthetic. A 22 Serbian rigid cystoscope was then passed through the urethra into the bladder. The urethra and bladder were inspected with a 30 degree lens. A stent could be seen protruding from the right ureteral orifice. The stent was grasped and alligator forceps and brought out to the level of the urethral meatus. A Glidewire was then advanced through the lumen of the ureteral stent and the wire was advanced up to the renal pelvis. The stent was removed and was replaced with a 5 Serbian access catheter. The wire was removed and a retrograde pyelogram film was obtained by injecting Omnipaque through the access catheter under fluoroscopic guidance. No obvious stones were seen on the retrograde pyelogram. A dual-lumen catheter was then advanced over the wire and a second wire was positioned. The dual-lumen catheter was removed and a ureteral access sheath was passed over one of the wires. The other wire was chosen as a safety wire. A flexible ureteroscope was passed through the ureteral access sheath. In the proximal ureter and collecting systems, a large amount of necrotic tissue was encountered. The tissue was floating freely within the collecting system and ureter. I was able to trap large amounts of this necrotic tissue in a 0 tip stone basket and remove the tissue. This tissue was not sent to pathology. Once the necrotic tissue had been removed, we were able to visualize the calyces directly. In one of the upper pole calyces, multiple small stones were visualized. A few of the stones were grasped in the 0 tip basket and extracted. The stones were sent to pathology for chemical analysis. The concern is that the stones may have a struvite composition. Because of the frequent passage of the ureteroscope and stone basket, and because of the presence of the necrotic tissue, we elected to place a ureteral stent back in the ureter. We chose a 6 Serbian variable length stent and advanced it over the safety wire. The proximal end of the stent was curled in the renal pelvis and the distal end was curled within the bladder. The positioning of the stent was confirmed both fluoroscopically and cystoscopically. We left the safety string in place and brought the string out through the patient's urethral meatus and tucked to the end of the string into the patient's vaginal cavity. In doing so, we identified exposed mesh that had penetrated into the vaginal cavity. The mesh has the appearance of the type used in the mid urethral sling. I excised the exposed mesh. The patient tolerated this procedure well with no complications. She was taken to the recovery room in stable condition.
--- NOTE | 2022-11-27 14:35 | W.ANESPOSTOP ---
Postoperative Evaluation Date, Time and Location Date Performed: 11/27/22 Time Performed: 14:35 Patient Location: PACU Vital Signs Most Recent Imported Vital Signs: Most Recent Vital Signs Temp Pulse Resp BP Pulse Ox 36.4 C L 84 10 L 93/56 L 98 11/27/22 14:25 11/27/22 14:25 11/27/22 14:25 11/27/22 14:25 11/27/22 14:25 Pain Score Most Recent Pain Score: Most Recent Pain Score Pain Level [Bilateral Abdomen] 8 11/26/22 11:30 Pain Level [Generalized] 0 11/24/22 15:01 Pain Level 0 11/27/22 14:25 Assessment Mental Status: Awake (Alert & Oriented to Patient Baseline) Airway and Respiratory Function: Patent airway with normal (patient baseline) respiratory exam Cardiovascular Function: Hemodynamically Stable Hydration Status: Adequately Hydrated Nausea & Vomiting: No Nausea or Vomiting Pain: Pain is tolerable per patient Peripheral Nerve Block: Patient did not receive a nerve block
[2022-11-27] MEDS: QUEtiapine 50 MG TAB PO (14:59)
[2022-11-27] MEDS: Insulin Aspart 300 UNITS/3 ML PEN SC ×3 (15:01→22:15)
--- NOTE | 2022-11-27 15:05 | NUR.NOTE ---
Nursing Note: pt returned from OR. vss. aox4. no acute distress noted. endorses anxiety. lunch tray provided
[2022-11-27] MEDS: Enoxaparin 40 MG/0.4 ML SYR SC (17:03)
[2022-11-27] MEDS: Simethicone 80 MG CHEW 160 MG CH ×2 (17:03→20:37)
[2022-11-27] MEDS: Carbidopa 25/Levodopa 100 TAB PO ×2 (17:05→20:37)
[2022-11-27] MEDS: Lidocaine 5% Patch 1 PATCH TP (18:19)
[2022-11-27 20:08] LABS: Platelet Count 346 10^3/uL (130-400)
[2022-11-27] MEDS: Diclofenac 1% Gel 100 GM TUBE TP (20:36)
[2022-11-27] MEDS: Fluticasone NASAL SPRAY 16 GM BTL NS (20:36)
[2022-11-27] MEDS: traZODone 50 MG TAB 25 MG PO (20:37)
[2022-11-27] MEDS: QUEtiapine 100 MG TAB PO (20:37)
[2022-11-27] MEDS: Magnesium Oxide 400 MG TAB 800 MG PO (20:37)
[2022-11-27] MEDS: Gabapentin 600 MG TAB 1200 MG PO (20:37)
[2022-11-27] MEDS: Acetaminophen 500 MG TAB PO (20:38)
[2022-11-27] MEDS: Docusate Sodium 100 MG CAP PO (20:38)
[2022-11-27] MEDS: Atorvastatin 20 MG TAB PO (20:38)
[2022-11-27] MEDS: rOPINIRole 0.5 MG TAB PO (22:13)
[2022-11-27] MEDS: Insulin Glargine 300 UNITS/3 ML PEN 10 UNITS SC (22:13)
[2022-11-27] MEDS: Senna TAB 1 TAB PO (22:13)
[2022-11-27] MEDS: Mirtazapine 15 MG TAB PO (22:13)
[2022-11-28] MEDS: Mylanta Suspension 30 ML CUP PO (05:46)
[2022-11-28] MEDS: Levothyroxine 100 MCG TAB PO (05:46)
[2022-11-28] MEDS: traMADol 50 MG TAB PO ×3 (05:46→13:52)
--- NOTE | 2022-11-28 07:01 | W.PM.PROGNOT ---
Date of Service Date of service: 11/28/22 Time of Service: 07:01 Assessment and Plan Assessment and plan (1) Emphysematous pyelonephritis: Status: Acute Assessment and plan: Her stent has been successfully removed. We removed a few small stones from the kidney yesterday. We also removed a large amount of necrotic tissue that would have had the chance to trap bacteria in the kidney. I expect that she would be able to go back to the nursing facility in the next day or so. Her urologic follow-up would be a renal ultrasound and follow-up appointment in about 6 weeks. Subjective Subjective Interval history since last seen: The patient has been afebrile following her procedure. Her stent has become partially dislodged. She is still concerned about her abdominal distention and bloating. I reminded her that her procedures so far have nothing to do with her abdomen and were only done for her kidney. She is already under the care of the GI service at [facility] for her abdomen. Exam Narrative Exam Narrative: She appears calm double Her vital signs are documented elsewhere Her stent was successfully removed at the bedside She is awake and alert Objective Last Vital Signs Temp 36.9 C 11/27/22 22:50 Pulse 86 11/27/22 22:50 Resp 16 11/27/22 22:50 BP 115/65 11/27/22 22:50 Pulse Ox 99 11/27/22 22:50 Laboratory Results - last 24 hr 11/24/22 11/26/22 11/27/22 07:22 21:05 19:53 Plt Count 346 Homocysteine 13.4 Ur Random Creatinine < 13 Urine Total Volume 3450 Ur Creatinine 24 Hour Time Spent with Patient Time Spent with Patient: <25 minutes Time was spent: obtaining and/or reviewing separately otained hiistory and counseling the patient
[2022-11-28] MEDS: Lidocaine Patch Removal 1 EACH TP (07:27)
[2022-11-28 07:34] VITALS: BP 131/73; PULSE 82; RESP 16; TEMP 36.4; O2SAT 97
[2022-11-28] MEDS: Insulin Aspart 300 UNITS/3 ML PEN SC ×4 (08:10→12:38)
[2022-11-28] MEDS: ALPRAZolam 0.25 MG TAB PO ×2 (08:15→13:52)
[2022-11-28] MEDS: Albuterol HFA 8 GM 60 PUFF INH IH ×2 (08:27→11:16)
[2022-11-28] MEDS: Cyanocobalamin 500 MCG TAB 1000 MCG PO (08:43)
[2022-11-28] MEDS: Simethicone 80 MG CHEW 160 MG CH ×2 (08:43→11:31)
[2022-11-28] MEDS: Vitamins B Comp w/C TAB 1 TAB PO (08:44)
[2022-11-28] MEDS: Magnesium Oxide 400 MG TAB 800 MG PO (08:44)
[2022-11-28] MEDS: Aspirin E.C. 81 MG TABEC PO (08:45)
[2022-11-28] MEDS: QUEtiapine 100 MG TAB PO (08:45)
[2022-11-28] MEDS: Omeprazole 20 MG CAPCR 40 MG PO (08:45)
[2022-11-28 08:46] LABS: Calcium Urine 1.3 mg/dL (See Note); Calcium Urine 24 hr 45 mg/24hrs (100-300); Timed Urine Volume 3450 mL
[2022-11-28] MEDS: buPROPion-XL 150 MG TABCR PO (08:46)
[2022-11-28] MEDS: traZODone 50 MG TAB 25 MG PO (08:46)
[2022-11-28] MEDS: Multivitamin w/Minerals TAB 1 TAB PO (08:46)
[2022-11-28] MEDS: lamoTRIgine 25 MG TAB 50 MG PO (08:48)
[2022-11-28] MEDS: Gabapentin 600 MG TAB 1200 MG PO (08:48)
[2022-11-28] MEDS: Acetaminophen 500 MG TAB PO (08:48)
[2022-11-28] MEDS: Docusate Sodium 100 MG CAP PO (08:49)
[2022-11-28 08:50] LABS: Timed Urine Volume 3450 mL; Uric Acid Urine 7.3 mg/dL (See Note); Uric Acid Urine 24hr 252 mg/24hrs (250-750)
[2022-11-28] MEDS: Cetirizine 10 MG TAB PO (08:50)
[2022-11-28] MEDS: Carbidopa 25/Levodopa 100 TAB PO ×2 (08:50→11:30)
[2022-11-28] MEDS: Fluticasone NASAL SPRAY 16 GM BTL NS (08:50)
[2022-11-28] MEDS: Diclofenac 1% Gel 100 GM TUBE TP (08:51)
--- NOTE | 2022-11-28 12:32 | PDOC.CMDIS ---
- If Service Date Differs Date of service: 11/28/22 Time of Service: 12:32 LACE Index Scoring Tool - Questions: Length of Stay (in days): 7 - 13 Acuity (Admit via E.D.?): Yes Comorbidities: Liver or Renal Disease E.D. Visits: 4 - Answers: Total Score: 17 Risk of Readmission: High Risk Care Management Discharge Reason for Hospitalization: Sepsis due to pyelonephritis Discharge Plan: Ginger will return to the [facility] when medically cleared. She will transport via EMS, coordinated by CM. She will follow up with facility providers and discharge plan of care. Patient/Family Education Needs: Review discharge instructions, discuss Ask Me Three. Services Needed at Discharge: Assisted Facility ([facility] return ), Transportation (EMS)
--- NOTE | 2022-11-28 13:10 | DSE_ITS ---
Date of service: 11/28/22 Time of Service: 13:11 DS: Diagnosis Discharge Diagnosis (1) Emphysematous pyelonephritis: Status: Acute Asessment and Plan: see below for details Discharge Plan Disposition Patient Disposition: [facility]) Condition: Improving Discharge Details Reason For Visit: Sepsis due to Pyelonephritis,Present on admission Admit Date/Time: 11/20/22 15:26 Admit Provider: Yojana Osorio Attending Provider: Yojana Osorio Primary Care Provider: Agueda Bingham [facility] Course Hospital Course: Ms. 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 The patient was hypotensive in the ED (80-103/42-58), but not febrile or tachycardic, and her lactate was 1.0. She does have a leucocytosis of 11.74, a positive urinalysis. Her CT of the abdomen/pelvis shows a R nephroureteral stent, no hydronephrosis, she does have R nephrolithiasis, and thickened sigmoid colon and rectum. Patient was admitted to the ICU for treatment of sepsis secondary to pyelonephritis. Patient had blood and urine cultures drawn and was begun on ceftriaxone and vancomycin. Urine culture came back positive for Proteus mirabilis which was sensitive to Ceftriaxone but resisttant to Cipro, ampicillin, nitrofurantoin, Bactrim and intermediate sensitivity to tobra and gent. Vancomycin was stopped. She continued on Ceftriaxone her entire stay 9 doses total (1st dose on 11/20 and last dose today 11/28). Blood cultures grew 1 bottle of Staph hominis from 11/20 (out of 4 bottles obtained from 11/20) . subsequent cultures from 11/23 were no growth. The Staph hominis was deemed a contaminant. The patient underwent cystoureteroscopy performed by Dr. Alvarez on 11/27 in which he removed the righ ureteral stent, removed necrotic debris from the right ureter and replaced the stent w/ a new stent which he subsequently removed on the day of discharge. He recommends follow up renal US in 4 to 6 weeks and follow up w/ him in urology clinic in 6 weeks. Due to the patient's recurrent UTI and this time w/ sepsis, her Jardiance was discontinued and should not be restarted. Her DM was managed w/ lantus and sliding scale novolog. Her metformin was held d/t her condition of sepsis, need for contrast studies and varying renal function. At discharge her glucose was running in the low 300's and she should resume her metformin and her Trulicity on return to the [facility]. I would recommend continued use of sliding scale and even consider meal coverage. During her hospitalization she alternated between constipation and bloating w/ abdominal pains however she did not have any bowel obstruction and was having regular BM 's at the time of discharge. She was resumed on her Linzess and her bowel regimen w/ glycerin suppository, miralax and senna. Pending studies include stone analysis from stone fragments obtained during her cystoscopy and a 24 hour urine collection which was obtained but has yet to return results for 24 hour urine for uric acid, oxalic acid, citrate, creatinine, calcium. She should remain on a low sodium diet and drink at least 2 liters of water per day to prevent stones. Further dietary recommendations and/or supplemental medication will be predicated on the results of her urine collection and her urinary stone analysis. Home Meds and New Rx's Prescriptions: New cyanocobalamin (vitamin B-12) [Vitamin B-12] 500 mcg Tablet 1,000 mcg PO DAILY Qty: 0 0RF docusate sodium [Colace] 100 mg Capsule 100 mg PO TID PRN PRNQty: 0 0RF insulin aspart U-100 100 unit/mL (3 mL) Insulin Pen See Rx Instructions .ROUTE .COMPLEX Qty: 0 0RF Rx Instructions: novolog per [facility] insulin sensitive sliding scale dextrose [Glutose-15] 40 % Gel 20 g PO DIRECTED PRNQty: 0 0RF Rx Instructions: 20 gm po prn hypoglycemia glycerin (adult) [Fleet Glycerin (Adult)] Suppository 1 supp WI DAILY Qty: 0 0RF insulin aspart U-100 100 unit/mL (3 mL) Insulin Pen 0 units subcut 0800,1200,1700,2200 Qty: 0 0RF lidocaine 5 % Adhesive Patch,Medicated 1 patch topical Q24H Qty: 0 0RF tramadol 50 mg Tablet 50 mg PO Q4H PRN PRNQty: 0 0RF atorvastatin 20 mg Tablet 20 mg PO QPM Qty: 0 0RF Continued trazodone 50 mg tablet 25 mg PO BID metformin 500 mg tablet 1,000 mg PO BID bisacodyl 10 mg suppository 10 mg WI ONCE PRN lactase [Lactaid] 3,000 unit tablet 9,000 unit PO TID Rx Instructions: administer with meals and/or snacks simethicone 180 mg capsule 1 cap PO QID PRN docusate sodium [Colace] 100 mg Capsule 100 mg PO .BID, PRN mirtazapine 15 mg Tablet 15 mg PO QHS lamotrigine [Lamictal] 25 mg Tablet 50 mg PO DAILY Qty: 1 0RF quetiapine 100 mg tablet 50 mg PO DAILY Patient Comments: 100 mg BID, 50 mg daily at 2pm polyethylene glycol 3350 [Miralax] 17 gram/dose Powder 17 g PO DAILY PRN aspirin 81 mg Tablet,Delayed Release (Dr/Ec) 81 mg PO DAILY bupropion HCl 150 mg tablet extended release 24 hr 150 mg PO QAM cetirizine 10 mg Tablet 10 mg PO QAM linaclotide 145 mcg Capsule 145 mcg PO DAILY magnesium oxide 400 mg magnesium Tablet 800 mg PO DAILY acetaminophen 500 mg Tablet 500 mg PO BID diclofenac sodium 1 % Gel 1 applic TOPICAL BID fluticasone propionate [Flonase Allergy Relief] 50 mcg/actuation [place],Suspension 1 spray INTRANASAL BID gabapentin 600 mg tablet 2 tab PO BID quetiapine 100 mg Tablet 100 mg PO BID sennosides 8.6 mg Tablet 17.2 mg PO HS PRN albuterol sulfate [Ventolin HFA] 90 mcg/actuation HFA aerosol inhaler 2 inh INHALATION TID Trulicity 1.5 mg/0.5 mL pen injector 1 device SUBCUT DIRECTED Rx Instructions: weekly levothyroxine 100 mcg Tablet 100 mcg PO DAILY [id number]-[id number] 5-10-100 mg/5 mL Liquid 10 ml PO Q4H PRN omeprazole 20 mg Capsule,Delayed Release(Dr/Ec) 20 mg PO DAILY carbidopa-levodopa 25-100 mg Tablet 1 tab PO QID B-complex with vitamin C Capsule 1 cap PO DAILY Centrum Complete 18-400 mg-mcg Tablet 1 tab PO DAILY ropinirole 0.5 mg Tablet 0.5 mg PO QHS Rx Instructions: administer 1-3 hours before bedtime Discontinued Jardiance 25 mg tablet 1 tab PO DAILY Discharge Instructions Instructions: Kidney Infection (DC), Cystoscopy (DC) Stand Alone Forms: Nursing Discharge Form Referrals: GASTROENTEROLOGY,[facility] [place] [OTHER] - (needs follow up appointment for EGD and c- scope and evaluation of chronic abdominal pains and bloating) Agueda Bingham [Primary Care Provider] - (Follow up per Ana M ) Danny Alvarez MD [ [facility] STAFF PHYSICIAN] - (The nurse from DR Myers office will call the [facility] to make an Appointment ) Activity:: Activity as Tolerated Equipment/Supplies:: No Equipment Needed Diet:: Carb Counting Discharge Orders Discharge Orders: Discharge Order (Routine); Ordered 11/28/22 Ordered By: Jc Jack DS: Summary Time Spent with Patient providing and/or coordinating discharge services: Greater than 30 minutes Specific discharge activities: Interview/exam of patient; review of discharge instructions, completion of prescriptions/discharge instructions; discussion w/ nursing and CM; documentation of hospital visit Status at Discharge Functional status at discharge: bed bound Overall status at discharge: patient is progressing back to baseline Mental Status: mental status grossly normal Speech and Movement: speech and movement normal Mood: congruent mood Affect: normal affect Exam Narrative Exam Narrative: Ginger is anxious, but alert Lungs: clear Heart: RRR Abdomen: distended, firm but not hard, normal bowel sounds Psych Mental Status: mental status grossly normal Speech and Movement: speech and movement normal Mood: congruent mood Affect: normal affect DS: Data Vitals/I&O Vitals and I&O: Vital Signs Temperature 36.4 C L 11/28/22 07:34 Temperature Source Tympanic 11/28/22 07:34 Pulse 82 11/28/22 07:34 Pulse Rhythm Regular 11/28/22 00:59 Pulse 89 11/21/22 15:50 Respiratory Rate 16 11/28/22 07:34 Respiratory Effort Normal 11/28/22 12:15 Respiratory Depth Normal 11/28/22 12:15 Respiratory Pattern Normal 11/28/22 12:15 Blood Pressure 131/73 11/28/22 07:34 Blood Pressure Mean 92 11/21/22 14:02 Blood Pressure Position Supine 11/20/22 11:48 Pulse Oximetry 97 11/28/22 07:34 Respiratory End-tidal CO2 40 11/27/22 14:35 Oxygen Delivery Method Room Air 11/28/22 07:34 Oxygen Flow Rate 0 11/28/22 07:34 Pain Level 8 11/28/22 10:59 Intake & Output 11/27/22 11/28/22 11/28/22 23:59 11:59 23:59 Intake Total 1030 / 1030 1140 / 1140 Output Total 800 / 1400 2160 / 2160 Balance 230 / -370 -1020 / -1020 Weight 77.2 kg Intake: IV 850 / 850 Oral 180 / 180 1140 / 1140 Output: Urine 800 / 1400 2160 / 2160 Other: Urine Color Newfolden Yellow Newfolden Urine Appearance Clear Cloudy Clear Urine Odor None Normal Comment female pad suction cath external catheter connected to low suction Stool Occult Blood Negative Stool Size Moderate Small Stool Characteristics Liquid Soft Emesis Description None Voiding Methods Incontinent Self-Catheterization Data Completed and Pending Labs on day of discharge: Labs from last 24 hours 11/27/22 11/27/22 11/26/22 19:53 13:54 21:05 Plt Count 346 Urine Collection Time 24.0 Timed Urine Volume 3450 Ur Uric Acid 7.3 Ur Uric Acid 24 Hr 252 Urine Calcium 1.3 Ur Calcium 24 Hr 45 L Stone Source Pending Stone Comment Pending Kidney Stone Analysis Pending [facility] All Active Problems Abdominal bloating (Acute) Abdominal pain (Chronic) DVT prophylaxis (Acute) Pyelonephritis (Acute) Microcytic anemia (Acute) Emphysematous pyelonephritis (Acute) Pyuria due to bacterial urinary tract infection (Acute) Hydronephrosis of right kidney (Acute) Gallstones (Acute) Arthritis of left shoulder region (Acute) Cough (Acute) Ileus (Acute) Tardive dyskinesia (Acute) Parkinsonism (Acute) History of stroke (Acute) Chronic chest pain (Chronic) Discharge planning issues (Acute) Constipation (Chronic) Bipolar 1 disorder (Chronic) Bipolar affective disorder, current episode depressed (Acute) rule out bipolar disorder reported by patient. Antiepileptics maybe preventing manic episode. Major depressive disorder, recurrent, severe with psychotic features (Acute) Current presentation is depression. She may have bipolar affective disorder. Ambulatory dysfunction (Chronic) Hemiparesis affecting right side as late effect of cerebrovascular accident (Acute) Dysphagia as late effect of cerebrovascular accident (CVA) (Chronic) Dysarthria as late effect of cerebrovascular accident (CVA) (Acute) Aphasia as late effect of cerebrovascular accident (Acute) Neck pain (Acute) Autoimmune disorder (Acute) Medical History [place] (acute kidney injury) Anxiety Bipolar 1 disorder Cholelithiasis with acute cholecystitis s/p cholecystostomy and stone extraction in 2014 ([facility]), tube now pulled. 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 Complicated UTI (urinary tract infection) Diverticulosis Hemiparesis affecting right side as late effect of cerebrovascular accident (CVA) Hepatitis C History of multiple cerebrovascular accidents (CVAs) Hypertension Hypothyroidism IDDM (insulin dependent diabetes mellitus) Left rotator cuff tear Lumbar disc disease Nephrolithiasis Neurogenic bladder Obesity (BMI 30.0-34.9) Palliative care encounter Septic shock Staghorn calculus Static encephalopathy Steroid dependent Uterine mass likely a fibroid UTI (urinary tract infection) Surgical History Abnormal cholangiogram H/O cervical spine surgery H/O foot surgery H/O wrist surgery History of extraction of renal calculus 12/13/2018 - [facility] History of hip surgery right History of lumbosacral spine surgery S/P cystoscopy with ureteral stent placement [facility] 11/2018 Status post creation of urethral sling by suprapubic approach Family History Mother Stroke Social History Smoking/Tobacco Use Status: Former Tobacco Use Smoking risk assessment performed?: Yes Alcohol Intake: former Substance use type: former substance user and IV drugs [facility] Number of Children: 5 Education Level: elementary school Details: 6th grade, special ed, left school age 16. Current gender identity: female What is your relationship status?: Panel score (0-1 are the most socially isolated patients): 0 What type of physical activity do you participate in: none Do you feel safe at home: Yes Do you feel safe in your relationship?: Yes Time Spent with Patient Time Spent with Patient: <45 minutes Time was spent: ordering medications,tests, procedures, indepentently interpreting results and care coordination
--- NOTE | 2022-11-28 13:45 | CHAPLAIN ---
When I visited Ginger this morning, right away she said she needed to talk to me about being discharged, (she said she wasn't ready) and med changes (she said the BOARDING KENNEL OR CATTERY OPERATOR from the [facility] told her that the BOARDING KENNEL OR CATTERY OPERATOR could change meds that were prescribed to Ginger from [facility]). I explained that I didn't know about either of these issues. Ginger went on to tell me more of her concerns about being discharged and her medications. Eventually I let her know that her Electronic Scale Assembler And Tester would be the person to speak with, and then let Electronic Scale Assembler And Tester Janette Vora know that Ginger wanted to speak with. It appears from Ginger's records that she's being discharged today.
[2022-11-28] MEDS: QUEtiapine 50 MG TAB PO (13:52)
[2022-11-28] MEDS: cefTRIAXone 2 GM/50 ML BAG IVPB (13:52)
[2022-11-29 09:50] LABS: Citrate Excretion, 24hr, U 293 mg/24 h; Urine Volume 3450 mL
[2022-11-29 13:41] LABS: Tissue Transglutaminase Ab IgA <1.2 U/mL; Tissue Transglutaminase Ab IgG 1.3 U/mL
[2022-11-29 13:59] LABS: Oxalate, U 0.28 mmol/24 h; Oxalate, U 24.6 mg/24 h (9.7 - 40.5); Urine Volume 3450 mL
[2022-11-30 14:42] LABS: Celiac gene pairs present? No
[2022-11-30 16:04] LABS: Gliadin (Deamidated) Ab, IgA <10.0 U; Gliadin (Deamidated) Ab, IgG <10.0 U
[2022-12-01 22:21] LABS: Source: Right Kidney
== END 2022-11-28 14:42 | disposition skilled nursing facility (03) | DRG 660 ==
LOC: ER 19:48 → ICU 23:31 → MS 11-21 16:15
PROVIDERS: Internal Medicine; Urology; Admitting Provider Internal Medicine; Emergency Provider Physician Assistant; PCP Family Medicine; Visit Provider Internal Medicine
PROC: 0TC68ZZ Extirpation of Matter from Right Ureter, Via Natural or Artificial Opening Endoscopic (ICD-10-PCS; CPT 52352; principal; 2022-11-27 13:00)
DX: N10 Acute pyelonephritis (principal); E27.49 Other adrenocortical insufficiency; I69.351 Hemiplegia and hemiparesis following cerebral infarction affecting right dominant side; F33.3 Major depressive disorder, recurrent, severe with psychotic symptoms; I67.7 Cerebral arteritis, not elsewhere classified; Z16.11 Resistance to penicillins; Z16.29 Resistance to other single specified antibiotic; Z16.23 Resistance to quinolones and fluoroquinolones; B96.4 Proteus (mirabilis) (morganii) as the cause of diseases classified elsewhere; I95.9 Hypotension, unspecified; D50.9 Iron deficiency anemia, unspecified; E11.9 Type 2 diabetes mellitus without complications; Z79.4 Long term (current) use of insulin; I69.322 Dysarthria following cerebral infarction; G20 Parkinson's disease; K80.20 Calculus of gallbladder without cholecystitis without obstruction; M19.012 Primary osteoarthritis, left shoulder; R05.9 Cough, unspecified; K59.09 Other constipation; R07.89 Other chest pain; G89.29 Other chronic pain; I69.391 Dysphagia following cerebral infarction; R13.10 Dysphagia, unspecified; K20.0 Eosinophilic esophagitis; I10 Essential (primary) hypertension; E03.9 Hypothyroidism, unspecified; N31.9 Neuromuscular dysfunction of bladder, unspecified; K57.90 Diverticulosis of intestine, part unspecified, without perforation or abscess without bleeding; R19.7 Diarrhea, unspecified; N20.0 Calculus of kidney; Z87.442 Personal history of urinary calculi
CPT/HCPCS: 52352; 52332; 36410; 36415; 36416; 51702; 80048; 80053; 80061; 80186; 82507; 82530; 82533; 82962; 83090; 83516; 83690; 84145; 86816; 87040; 87077; 87081; 87493; 87505; 87635; 87637; 93005; 94640; 96361; 96365; 96366; 96367; 96375; 97110; 97163; 97166; 99291; J1650; 74018; 74176; 74420; 80202; 81003; 81015; 81050; 82340; 82365; 82570; 82607; 82728; 82746; 83540; 83550; 83605; 83735; 83945; 84560; 85025; 85049; 86140; 86255; 87086; 87186; 93010; 94664; 94760; 99231; 99232; 99233; 99239; J0131; J0696; J1100; J1720; J2405; J2704; J3420; J3490; J7512; Q9967

== ENCOUNTER 2022-12-05 15:59 | Outpatient (REF) | payer MEDICAID, SELFPAY ==
[2022-12-05 17:24] LABS: Iron 40 ug/dL (50-170); Total Iron Binding Capacity 287 ug/dL (250-450); Transferrin Sat 14 % (15-50)
[2022-12-05 17:33] LABS: Abs Immature Grans 0.03 10^3/uL (0.0-0.06); Absolute Basophil Count 0.02 10^3/uL (0.0-0.2); Absolute Eosinophil Count 0.18 10^3/uL (0.0-0.7); Absolute Lymphocyte Count 2.22 10^3/uL (1.2-3.4); Absolute Monocyte Count 0.45 10^3/uL (0.1-0.8); Absolute Neutrophil Count 5.44 10^3/uL (1.2-6.7); Basophils % 0.2; Eosinophils % 2.2; HCT 35.3 % (36.0-46.0); HGB 9.7 g/dL (11.2-15.7); Immature Grans % 0.4; Lymphocytes % 26.6; MCH 23.7 pg (27.0-33.0); MCHC 27.5 % (32.0-36.0); MCV 86 fL (80-95); MPV 9.9 fL (8.0-11.0); Monocytes % 5.4; Neutrophils % 65.2; Platelet Count 292 10^3/uL (130-400); RBC 4.09 10^6/uL (3.93-5.22); RDW 27.4 % (11.7-14.6); RDW-SD 82.3 fL; WBC 8.34 10^3/uL (4.4-10.8)
[2022-12-05 17:47] LABS: Vitamin D 25 Total 39.9 ng/mL (30-100)
[2022-12-05 17:53] LABS: ALT 21 U/L (14-59); AST 22 U/L (15-37); Albumin 3.4 g/dL (3.4-5.0); Alkaline Phosphatase 94 U/L (46-116); Anion Gap 11.9 mmol/L (3-11); BUN 12 mg/dL (7-18); Bilirubin, Total 0.3 mg/dL (0.2-1.0); CO2 24.1 mmol/L (21.0-32.0); CREATININE 0.9 mg/dL (0.55-1.02); Calcium 9.1 mg/dL (8.5-10.1); Chloride 103 mmol/L (98-107); Estimated GFR 72.28 (mL/min/1.73m2); Ferritin 158 ng/mL (8-252); Folate 17.3 ng/mL (8.6-20.0); Glucose 109 mg/dL (74-106); Magnesium 1.4 mg/dL (1.8-2.4); Potassium 4.3 mmol/L (3.5-5.1); Sodium 139 mmol/L (136-145); TSH (W/Ref FT4) 1.62 uIU/mL (0.36-3.74); Total Protein 7.8 g/dL (6.4-8.2); Vitamin B12 907 pg/mL (193-986)
[2022-12-05 18:01] LABS: Anisocytosis 2+; Diff Comment RBC Morph Reviewed; Hypochromasia 1+
[2022-12-05 18:16] LABS: Hemoglobin A1C 6.3 % (<5.7)
[2022-12-05 18:32] LABS: NT-proBNP 134 pg/mL (<300)
[2022-12-07 10:47] LABS: Hepatitis C Ab w Rflx HCV PCR Reactive (Negative)
[2022-12-08 12:33] LABS: HCV RNA Qualitative Undetected (Undetected)
[2022-12-13 00:59] LABS: Cortisol, Free 0.242 mcg/dL; Cortisol, LC-MS/MS 9.8 mcg/dL
== END 2022-12-05 16:00 | disposition home or self-care (01) ==
LOC: LBN 15:59
PROVIDERS: PCP Family Medicine; Visit Provider Nurse Practitioner Gerontology
DX: R68.89 Other general symptoms and signs (principal); D64.9 Anemia, unspecified; R73.09 Other abnormal glucose; Z11.59 Encounter for screening for other viral diseases; F31.30 Bipolar disorder, current episode depressed, mild or moderate severity, unspecified; Z79.899 Other long term (current) drug therapy; R06.89 Other abnormalities of breathing
CPT/HCPCS: 80053; 82306; 82530; 82533; 86803; 87522; 82607; 82728; 82746; 83036; 83540; 83550; 83735; 83880; 84443; 85025

== ENCOUNTER 2022-12-24 11:50 | Inpatient (IN) | payer MEDICAID, SELFPAY ==
[2022-12-24] VITALS (135 sets, daily range): BP systolic 53–124; BP diastolic 15–83; PULSE 48–139; RESP 8–20; TEMP 36.7–38; O2SAT 96–98
--- NOTE | 2022-12-24 12:15 | DI.CT_ITS ---
Exam(s) CT CHEST PE ABD PELVIS W EXAM: CT CHEST PE ABD PELVIS W CLINICAL HISTORY: sob, cough, RLQ abd pain, vomit, diarrhea. TECHNIQUE: Imaging Protocol: Axial CT angiography was performed with multi-slice acquisition and m ulti-planar and/or 3D reconstructions. CONTRAST MATERIAL: Intravenous: Omnipaque 350 Contrast volume:100 ml Oral: None COMPARISON: CT CT ABDOMEN PELVIS WO from 11/20/2022 FINDINGS: CHEST: PULMONARY ARTERIES: Less than optimal opacification of the most peripheral pulmonary arteries. Howev er, no evidence of central pulmonary emboli. LUNGS: There is mild infiltrate in the posterior basal segment of the right lower lobe. No pleural e ffusion on either side. No significant focal findings in the opposite-left lung.. MEDIASTINUM: There is no hilar nor mediastinal adenopathy. Visualized thyroid unremarkable. CARDIAC: Heart size is normal. There is no pericardial effusion. There is no significant shift of t he interventricular septum.Caliber of thoracic aorta normal. No dissection. There is independent or igin of the left vertebral artery off of the aortic arch. OSSEOUS: No significant osseous lesions.No fractures. Fusion hardware noted in the lower cervical sp ine.. ABDOMEN: Small amount of fluid in the right pericolic gutter again noted, unchanged, this subjacent to the inf erior aspect of the right hepatic lobe. LIVER: There are no focal hepatic lesions nor dilatation of intrahepatic ducts. GALLBLADDER/BILIARY: No obvious new gallbladder pathology. CBD is not dilated. PANCREAS: No evidence of pancreatic mass nor dilatation of the pancreatic duct. SPLEEN: Spleen is not enlarged. There are no intrasplenic lesions. Splenic and portal veins are barnhart nt. ADRENALS: There are no significant adrenal masses. KIDNEYS:Left kidney unremarkable. The right-sided ureteral stent is been removed. Mild streaking ar ound the right kidney again noted. Tiny 1 millimeter calculus in the right kidney noted. There are no obvious radiopaque calculi seen along the course of the right ureter. No solid renal masses. No prominent cysts.. ABDOMINAL AORTA: Abdominal aorta is not enlarged. LYMPH NODES: There is no retroperitoneal or para-aortic adenopathy. ABDOMINAL WALL/GI: No evidence of significant anterior abdominal wall hernia. Redundant sigmoid. No obvious bowel obstruction. No diverticulitis. PELVIS: LYMPH NODES: There is no intrapelvic nor inguinal adenopathy. GI: No evidence of appendicitis.No evidence of sigmoid diverticulitis. URINARY BLADDER: There is a Martinez catheter noted but this is possibly not in the urinary bladder but at the cervix level. The bladder is collapsed. REPRODUCTIVE: Uterus is enlarged with multiple fibroids. OSSEOUS: No significant osseous lesions. No fractures evident IMPRESSION: 1. Mild infiltrate right lung base. No pleural effusions. No obvious central pulmonary emboli but t he most peripheral vessels of the pulmonary arterial tree are difficult to assess. Cannot exclude sm all peripheral emboli. 2. Previously present right ureteral stent has been removed.No right-sided obstruction at this time. 3. Martinez catheter is noted but it may be at the level of the cervix and not in the urinary bladder. Recommend assessing function and possible repositioning if necessary. The urinary bladder is not dis tended. 4. Enlarged fibroid uterus again noted. 5. RADIATION DOSE DELIVERED: 1,941.44mGy.cm Total DLP DATA REPOSITORY: All CT scans at this facility are submitted to the National Radiology Data Registry (NRDR) Dose Index Registry (DIR) with the [employer] ([employer]). RADIATION OPTIMIZATION: All CT scans at this facility use at least one of these dose optimization te chniques: automated exposure control; mA and/or kV adjustment per patient size (includes targeted exa ms where dose is matched to clinical indication); or iterative reconstruction.
--- NOTE | 2022-12-24 12:17 | W.ED.GENAD ---
Discharge Plan Disposition Patient Disposition: Admit to [facility] Discharge Details Clinical Impression: Septic shock, Hypotension, Pulmonary embolism, Hypokalemia, Hypocalcemia, Hypomagnesemia, Abdominal pain, vomiting, and diarrhea, Metabolic acidosis Admit Date/Time: 12/24/22 15:50 Admit Provider: Yojana Osorio Attending Provider: Yojana Osorio Primary Care Provider: Agueda Bingham ED Provider: Marisol Vegas Discharge Data Discharge Date/Time-TO BE ENTERED AT DEPARTURE: 12/24/22 18:02 Medical Decision Making 1210 -- 62-year-old female who is DNR/DNI presents from the [facility] with a history of diabetes, morbid obesity, hepatitis C, hypertension, hypothyroidism, [employer]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 EMS reported a complaint of decreased p.o. intake for 5 days with vomiting and abdominal pain since yesterday. EMS noted a heart rate of 120s, blood pressure 74/46 with oxygen saturation low 90s and junky lung sounds en route with improvement oxygen saturation to 97% after neb treatment. CODE STATUS discussed with patient and she confirms to me that she is DNR/DNI. Blood pressure 90/60. Heart rate 120s and appears regular. O2 sat 98% on 2 L nasal cannula. Patient is breathing comfortably with no signs of respiratory distress. Patient is oriented x2, does not know the year. She otherwise is able to answer questions appropriately. Her abdomen is obese with mild distention and tenderness in the right lower quadrant and suprapubic region. She has noisy expiratory breath sounds with moaning but no obvious wheezing or crackles. No lower extremity edema. Mild sacral erythema but no obvious open wounds. She has chronic right-sided hemiparesis and no obvious open wounds to her right foot. Differential diagnosis includes UTI, pneumonia, influenza, COVID, acute abdominal process. Concern for potential sepsis. We will place an IV, bolus IV fluids, screening labs, urinalysis, Martinez catheter insertion, C. difficile, stool culture, CT chest abdomen pelvis and start IV fluid hydration. 1230 -- Blood pressure 50s/30s. Initial temp 100.2 with temp sensing Martinez. 1300 -- blood pressure remains hypotensive 50s/30s. Heart rate has improved to the 90s. We will continue IV fluid hydration. Some labs returning and revealed leukocytosis of 25, lactate of 3.4. Review of records note that patient was admitted here twice in the last 6 weeks and treated for sepsis in the setting of emphysematous pyelonephritis with obstructive uropathy requiring cystoscopy/RIGHT ureteral stent placement which was subsequently removed by Dr. Alvarez and treated with a course of IV ceftriaxone. Urine culture from October 2022 grew Proteus Mirabilis and showed that it was sensitive only to cephalosporins and Zosyn. Blood cultures negative. She has an allergy to penicillin and sulfa which causes itching. We will order a dose of IV cefepime to start now for concern for septic shock. 1345 -- pressure remains low after 1 L of fluid, still 60s/40s. We will give additional IV fluid hydration as she is profoundly dry and has not eaten for 5 days. We will also order norepinephrine infusion. Patient remains quite alert and answering questions appropriately. She has asked for oral tramadol in addition to the IV Tylenol for pain relief. Discussed that I will hold on IV narcotics due to her hypotension. 1530 -- Virtual radiology read the CT chest as 1. ? Poor opacification of the left lower lobe interlobular pulmonary arteries that probably have small thrombi. No large vessel thrombi. 2. ? Findings compatible with pulmonary artery hypertension. 3. ? Right lower lobe interstitial change from fibrosis or linear atelectasis. No consolidations. No pleural effusions. Our in-house radiologist noted mild infiltrate right lung base. No pleural effusion. No obvious central pulmonary emboli but the most peripheral vessels of the pulmonary arterial tree are difficult to assess. Cannot exclude small peripheral emboli. No hydronephrosis or other acute findings noted on CT abdomen and pelvis. Patient has had a few soft brown bowel movements here in the ED. C. difficile negative. BP improving on pressors, now 80s/40s. Case discussed with hospitalist who accepts patient for admission. Would like a heparin drip for possible PE. Also recommending vancomycin IV for additional coverage and septic shock. Discussed that I do not have an obvious source for her fever and sepsis at this time, but suspect UTI. Also consider early pneumonia, possibly aspiration. Able to place a left femoral central line after difficulty placing a central line in the right femoral as the wire would not pass. Due to the delay in placing a central line, a urine sample was not yet obtained. Patient will go to the ICU now and will obtain a urine sample as soon as possible. Remainder of labs revealed multiple electrolyte abnormalities in addition to potassium of 2.2, magnesium of 0.8 and calcium of 5.7 all of which were given supplementation here in the emergency department. Dr. Osorio requested a dose of hydrocortisone be given due to her history of adrenal insufficiency but due to the delay in placement of central line, hydrocortisone not given in the ED but will be given on the floor. Medical Records Medical records reviewed: Yes I reviewed the patient's medical records. Imaging Data Radiologic Study: Radiologist's impression: CT CHEST PE ABD ? PELVIS W CLINICAL HISTORY: ? sob, cough, RLQ abd pain, vomit, diarrhea. ? TECHNIQUE:? Imaging Protocol: ? Axial CT angiography was performed with multi-slice acquisition and multi-planar and/or 3D reconstructions. CONTRAST MATERIAL:? Intravenous: Omnipaque 350 Contrast volume:100 ml Oral: None COMPARISON:? CT CT ABDOMEN ? PELVIS WO from 11/20/2022 FINDINGS: CHEST: PULMONARY ARTERIES: Less than optimal opacification of the most peripheral pulmonary arteries.? However, no evidence of central pulmonary emboli. LUNGS: There is mild infiltrate in the posterior basal segment of the right lower lobe.? No pleural effusion on either side.? No significant focal findings in the opposite-left lung..? MEDIASTINUM: There is no hilar nor mediastinal adenopathy. Visualized thyroid unremarkable. CARDIAC: Heart size is normal.? There is no pericardial effusion.? There is no significant shift of the interventricular septum.Caliber of thoracic aorta normal.? No dissection.? There is independent origin of the left vertebral artery off of the aortic arch. OSSEOUS: No significant osseous lesions.No fractures.? Fusion hardware noted in the lower cervical spine.. ABDOMEN: Small amount of fluid in the right pericolic gutter again noted, unchanged, this subjacent to the inferior aspect of the right hepatic lobe. LIVER: There are no focal hepatic lesions nor dilatation of intrahepatic ducts.? GALLBLADDER/BILIARY: No obvious new gallbladder pathology.? CBD is not dilated. PANCREAS: No evidence of pancreatic mass nor dilatation of the pancreatic duct.? SPLEEN: Spleen is not enlarged. There are no intrasplenic lesions.? Splenic and portal veins are patent. ADRENALS: There are no significant adrenal masses. KIDNEYS:Left kidney unremarkable.? The right-sided ureteral stent is been removed.? Mild streaking around the right kidney again noted.? Tiny 1 millimeter calculus in the right kidney noted.? There are no obvious radiopaque calculi seen along the course of the right ureter.? No solid renal masses.? No prominent cysts.. ABDOMINAL AORTA: Abdominal aorta is not enlarged. LYMPH NODES: There is no retroperitoneal or para-aortic adenopathy. ABDOMINAL WALL/GI: No evidence of significant anterior abdominal wall hernia.? Redundant sigmoid.? No obvious bowel obstruction.? No diverticulitis. PELVIS:? LYMPH NODES: There is no intrapelvic nor inguinal adenopathy. GI: No evidence of appendicitis.No evidence of sigmoid diverticulitis. URINARY BLADDER: There is a Martinez catheter noted but this is possibly not in the urinary bladder but at the cervix level.? The bladder is collapsed. REPRODUCTIVE: Uterus is enlarged with multiple fibroids. OSSEOUS: No significant osseous lesions.? No fractures evident IMPRESSION: 1. Mild infiltrate right lung base.? No pleural effusions.? No obvious central pulmonary emboli but the most peripheral vessels of the pulmonary arterial tree are difficult to assess.? Cannot exclude small peripheral emboli. 2. Previously present right ureteral stent has been removed.No right-sided obstruction at this time. 3. Martinez catheter is noted but it may be at the level of the cervix and not in the urinary bladder.? Recommend assessing function and possible repositioning if necessary.? The urinary bladder is not distended. 4. Enlarged fibroid uterus again noted. Lab Data Lab results reviewed: Yes I reviewed the patient's lab results. Labs: 12/24/22 13:00 Blood Blood Culture - Pending 12/24/22 12:02 Blood Blood Culture - Pending Laboratory Tests Range/Units 12/24/22 12/24/22 12/24/22 12:06 12:06 13:00 WBC (4.4-10.8) 10^3/uL 25.74 H* RBC (3.93-5.22) 10^6/uL 4.58 Hgb (11.2-15.7) g/dL 11.7 Hct (36.0-46.0) % 39.1 MCV (80-95) fL 85 MCH (27.0-33.0) pg 25.5 L MCHC (32.0-36.0) % 29.9 L RDW (11.7-14.6) % 24.4 H Plt Count (130-400) 10^3/uL 221 MPV (8.0-11.0) fL 9.2 Immature Gran % See Differential Neutrophils % 58.0 Band Neutrophils % 23 Lymphocytes % 11.0 Monocytes % 8.0 Eosinophils % 0.0 Basophils % 0.0 Nucleated RBC % (0.0-0.3) % 0.0 Absolute Neutrophils (1.2-6.7) 10^3/uL 20.85 H Absolute Lymphocytes (1.2-3.4) 10^3/uL 2.83 Absolute Monocytes (0.1-0.8) 10^3/uL 2.06 H Absolute Eosinophils (0.0-0.7) 10^3/uL 0.00 Absolute Basophils (0.0-0.2) 10^3/uL 0.00 RBC Morphology See Below Anisocytosis 2+ VBG Lactate (0.6-1.4) mmol/L Sodium (136-145) mmol/L Potassium (3.5-5.1) mmol/L Chloride (98-107) mmol/L Carbon Dioxide (21.0-32.0) mmol/L Anion Gap (3-11) mmol/L BUN (7-18) mg/dL Creatinine (0.55-1.02) mg/dL Est GFR (CKD-EPI 2020) (mL/min/1.73m2) Glucose (74-106) mg/dL Calcium (8.5-10.1) mg/dL Magnesium (1.8-2.4) mg/dL Total Bilirubin (0.2-1.0) mg/dL AST (15-37) U/L ALT (14-59) U/L Alkaline Phosphatase (46-116) U/L Troponin I (<or=60) ng/L C-Reactive Protein (0.0-0.3) mg/dL Total Protein (6.4-8.2) g/dL Albumin (3.4-5.0) g/dL Lipase Cancelled Procalcitonin ng/mL TSH (0.36-3.74) uIU/mL Stl C.difficile Tox PCR (Negative) COVID-19 Source Nasopharynx SARS-CoV-2 (PCR) (Negative) Negative Influenza Type A (PCR) (Negative) Negative Influenza Type B (PCR) (Negative) Negative RSV (PCR) (Negative) Negative Add-On Test Request Range/Units 12/24/22 12/24/22 12/24/22 13:00 13:00 13:00 WBC (4.4-10.8) 10^3/uL RBC (3.93-5.22) 10^6/uL Hgb (11.2-15.7) g/dL Hct (36.0-46.0) % MCV (80-95) fL MCH (27.0-33.0) pg MCHC (32.0-36.0) % RDW (11.7-14.6) % Plt Count (130-400) 10^3/uL MPV (8.0-11.0) fL Immature Gran % Neutrophils % Band Neutrophils % Lymphocytes % Monocytes % Eosinophils % Basophils % Nucleated RBC % (0.0-0.3) % Absolute Neutrophils (1.2-6.7) 10^3/uL Absolute Lymphocytes (1.2-3.4) 10^3/uL Absolute Monocytes (0.1-0.8) 10^3/uL Absolute Eosinophils (0.0-0.7) 10^3/uL Absolute Basophils (0.0-0.2) 10^3/uL RBC Morphology Anisocytosis VBG Lactate (0.6-1.4) mmol/L 3.4 H* Sodium (136-145) mmol/L 144 Potassium (3.5-5.1) mmol/L 2.2 L* Chloride (98-107) mmol/L 115 H Carbon Dioxide (21.0-32.0) mmol/L 14.1 L Anion Gap (3-11) mmol/L 14.9 H BUN (7-18) mg/dL 18 Creatinine (0.55-1.02) mg/dL 1.5 H Est GFR (CKD-EPI 2020) (mL/min/1.73m2) 39.16 Glucose (74-106) mg/dL 143 H Calcium (8.5-10.1) mg/dL 5.7 L* Magnesium (1.8-2.4) mg/dL 0.8 L Total Bilirubin (0.2-1.0) mg/dL 0.2 AST (15-37) U/L 8 L ALT (14-59) U/L < 6 L Alkaline Phosphatase (46-116) U/L 37 L Troponin I (<or=60) ng/L < 50 C-Reactive Protein (0.0-0.3) mg/dL Total Protein (6.4-8.2) g/dL 4.4 L Albumin (3.4-5.0) g/dL 1.4 L Lipase 11 L Procalcitonin ng/mL TSH (0.36-3.74) uIU/mL 1.15 Cancelled Stl C.difficile Tox PCR (Negative) COVID-19 Source SARS-CoV-2 (PCR) (Negative) Influenza Type A (PCR) (Negative) Influenza Type B (PCR) (Negative) RSV (PCR) (Negative) Add-On Test Request Range/Units 12/24/22 12/24/22 12/24/22 13:00 13:00 15:35 WBC (4.4-10.8) 10^3/uL RBC (3.93-5.22) 10^6/uL Hgb (11.2-15.7) g/dL Hct (36.0-46.0) % MCV (80-95) fL MCH (27.0-33.0) pg MCHC (32.0-36.0) % RDW (11.7-14.6) % Plt Count (130-400) 10^3/uL MPV (8.0-11.0) fL Immature Gran % Neutrophils % Band Neutrophils % Lymphocytes % Monocytes % Eosinophils % Basophils % Nucleated RBC % (0.0-0.3) % Absolute Neutrophils (1.2-6.7) 10^3/uL Absolute Lymphocytes (1.2-3.4) 10^3/uL Absolute Monocytes (0.1-0.8) 10^3/uL Absolute Eosinophils (0.0-0.7) 10^3/uL Absolute Basophils (0.0-0.2) 10^3/uL RBC Morphology Anisocytosis VBG Lactate (0.6-1.4) mmol/L Sodium (136-145) mmol/L Potassium (3.5-5.1) mmol/L Chloride (98-107) mmol/L Carbon Dioxide (21.0-32.0) mmol/L Anion Gap (3-11) mmol/L BUN (7-18) mg/dL Creatinine (0.55-1.02) mg/dL Est GFR (CKD-EPI 2020) (mL/min/1.73m2) Glucose (74-106) mg/dL Calcium (8.5-10.1) mg/dL Magnesium (1.8-2.4) mg/dL Total Bilirubin (0.2-1.0) mg/dL AST (15-37) U/L ALT (14-59) U/L Alkaline Phosphatase (46-116) U/L Troponin I (<or=60) ng/L C-Reactive Protein (0.0-0.3) mg/dL 24.09 H Total Protein (6.4-8.2) g/dL Albumin (3.4-5.0) g/dL Lipase Procalcitonin ng/mL 6.2 TSH (0.36-3.74) uIU/mL Stl C.difficile Tox PCR (Negative) Negative COVID-19 Source SARS-CoV-2 (PCR) (Negative) Influenza Type A (PCR) (Negative) Influenza Type B (PCR) (Negative) RSV (PCR) (Negative) Add-On Test Request Range/Units 12/24/22 15:45 WBC (4.4-10.8) 10^3/uL RBC (3.93-5.22) 10^6/uL Hgb (11.2-15.7) g/dL Hct (36.0-46.0) % MCV (80-95) fL MCH (27.0-33.0) pg MCHC (32.0-36.0) % RDW (11.7-14.6) % Plt Count (130-400) 10^3/uL MPV (8.0-11.0) fL Immature Gran % Neutrophils % Band Neutrophils % Lymphocytes % Monocytes % Eosinophils % Basophils % Nucleated RBC % (0.0-0.3) % Absolute Neutrophils (1.2-6.7) 10^3/uL Absolute Lymphocytes (1.2-3.4) 10^3/uL Absolute Monocytes (0.1-0.8) 10^3/uL Absolute Eosinophils (0.0-0.7) 10^3/uL Absolute Basophils (0.0-0.2) 10^3/uL RBC Morphology Anisocytosis VBG Lactate (0.6-1.4) mmol/L Sodium (136-145) mmol/L Potassium (3.5-5.1) mmol/L Chloride (98-107) mmol/L Carbon Dioxide (21.0-32.0) mmol/L Anion Gap (3-11) mmol/L BUN (7-18) mg/dL Creatinine (0.55-1.02) mg/dL Est GFR (CKD-EPI 2020) (mL/min/1.73m2) Glucose (74-106) mg/dL Calcium (8.5-10.1) mg/dL Magnesium (1.8-2.4) mg/dL Total Bilirubin (0.2-1.0) mg/dL AST (15-37) U/L ALT (14-59) U/L Alkaline Phosphatase (46-116) U/L Troponin I (<or=60) ng/L C-Reactive Protein (0.0-0.3) mg/dL Total Protein (6.4-8.2) g/dL Albumin (3.4-5.0) g/dL Lipase Procalcitonin ng/mL TSH (0.36-3.74) uIU/mL Stl C.difficile Tox PCR (Negative) COVID-19 Source SARS-CoV-2 (PCR) (Negative) Influenza Type A (PCR) (Negative) Influenza Type B (PCR) (Negative) RSV (PCR) (Negative) Add-On Test Request DONE ECG Data Attestation: I personally reviewed and interpreted this ECG (s) as follows: Interpretation: Rate of 114, sinus, normal intervals, no STEMI. HPI General Mode of arrival: ambulatory. Date/Time Provider Initiated Documentation: 12/24/22 13:01. Limitations to Documentation: no limitations. Information obtained by: patient. 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 EMS reported a complaint of decreased p.o. intake for 5 days with vomiting and abdominal pain since yesterday. Patient reports to me that she has had watery brown diarrhea for 2 weeks and vomiting since yesterday that she describes as liquid but cannot give any other explanation. Patient states she has not eaten much for the past 5 days. She also endorses pain in her right flank and right lower quadrant of her abdomen. EMS reports that patient had oxygen saturation in the low 90s and junky lung sounds for which she was given a neb treatment en route with improvement to 97% oxygen saturation. Her blood glucose for EMS was 294. Her heart rate per EMS was 120s and blood pressure was 74/46. Patient confirms to me that she is DNR/DNI. Related Data Home Medications Medication Instructions Recorded Confirmed docusate sodium 100 mg capsule 100 mg PO .BID, PRN 03/26/20 11/20/22 (Colace) mirtazapine 15 mg tablet 15 mg PO QHS 03/26/20 12/24/22 lamotrigine 25 mg tablet (Lamictal) 50 mg PO DAILY #1 tab 04/08/20 12/24/22 polyethylene glycol 3350 17 17 g PO DAILY PRN 04/19/20 12/24/22 gram/dose oral powder (Miralax) trazodone 50 mg tablet 25 mg PO BID 07/07/20 12/24/22 bisacodyl 10 mg rectal suppository 10 mg KS ONCE PRN 08/17/20 11/20/22 metformin 500 mg tablet 1,000 mg PO BID 12/20/20 12/24/22 lactase 3,000 unit tablet (Lactaid) 9,000 unit PO TID 06/22/21 12/24/22 quetiapine 100 mg tablet 50 mg PO DAILY 06/22/21 12/24/22 acetaminophen 500 mg tablet 500 mg PO BID 06/01/22 11/20/22 albuterol sulfate 90 mcg/actuation 2 inh inhalation TID 06/01/22 11/20/22 aerosol inhaler (Ventolin HFA) aspirin 81 mg tablet,delayed 81 mg PO DAILY 06/01/22 12/24/22 release bupropion HCl 150 mg 24 hr tablet, 150 mg PO QAM 06/01/22 12/24/22 extended release cetirizine 10 mg tablet 10 mg PO QAM 06/01/22 11/20/22 diclofenac sodium 1 % topical gel 1 applic topical BID 06/01/22 12/24/22 dulaglutide 1.5 mg/0.5 mL 1 device subcut DIRECTED 06/01/22 12/24/22 subcutaneous [facility] fluticasone propionate 50 1 spray intranasal BID 06/01/22 12/24/22 mcg/actuation nasal spray,suspension (Flonase Allergy Relief) gabapentin 600 mg tablet 2 tab PO BID 06/01/22 12/24/22 linaclotide 145 mcg capsule 145 mcg PO DAILY 06/01/22 12/24/22 magnesium oxide 800 mg PO DAILY 06/01/22 12/24/22 quetiapine 100 mg tablet 100 mg PO BID 06/01/22 12/24/22 sennosides 8.6 mg tablet 17.2 mg PO HS PRN 06/01/22 11/20/22 simethicone 180 mg capsule 1 cap PO QID PRN 06/13/22 12/24/22 B-complex with vitamin C 1 cap PO DAILY 11/09/22 12/24/22 carbidopa 25 mg-levodopa 100 mg 1 tab PO QID 11/09/22 12/24/22 tablet levothyroxine 100 mcg tablet 100 mcg PO DAILY 11/09/22 12/24/22 multivitamin-ferrous 1 tab PO DAILY 11/09/22 11/20/22 fumarate-folic acid 18 mg-400 mcg tablet (Centrum Complete) omeprazole 20 mg capsule,delayed 20 mg PO DAILY 11/09/22 12/24/22 release iknhjioxfhvwv-PP-yvfkstcarib 5 10 ml PO Q4H PRN 11/09/22 11/20/22 mg-10 mg-100 mg/5 mL oral liquid ropinirole 0.5 mg tablet 0.5 mg PO QHS 11/09/22 12/24/22 atorvastatin 20 mg tablet 20 mg PO QPM #0 tabs 11/28/22 12/24/22 cyanocobalamin (vitamin B-12) 500 1,000 mcg PO DAILY #0 tabs 11/28/22 mcg tablet (Vitamin B-12) dextrose 40 % oral gel (Glutose-15) 20 g PO DIRECTED PRN #0 grams 11/28/22 docusate sodium 100 mg capsule 100 mg PO TID PRN PRN #0 caps 11/28/22 12/24/22 (Colace) glycerin (adult) (Fleet Glycerin 1 supp KS DAILY #0 ea 11/28/22 12/24/22 (Adult) rectal suppository) insulin aspart U-100 100 unit/mL 0 units (0 mL) subcut 11/28/22 (3 mL) subcutaneous pen 0800,1200,1700,2200 #0 mL insulin aspart U-100 100 unit/mL See Rx Instructions .Route 11/28/22 (3 mL) subcutaneous pen .COMPLEX #0 mL lidocaine 5 % topical patch 1 patch topical Q24H #0 ea 11/28/22 12/24/22 tramadol 50 mg tablet 50 mg PO Q4H PRN PRN #0 tabs 11/28/22 12/24/22 acetaminophen 500 mg tablet 1,000 mg PO DAILY 12/24/22 12/24/22 albuterol sulfate 90 mcg/actuation 2 puff inhalation DAILY 12/24/22 12/24/22 aerosol inhaler (Ventolin HFA) loratadine 10 mg capsule 10 mg PO DAILY 12/24/22 12/24/22 lorazepam 0.5 mg tablet 0.5 mg PO BID 12/24/22 12/24/22 Previous Rx's Medication Instructions Recorded lamotrigine 25 mg tablet (Lamictal) 50 mg PO DAILY #1 tab 04/08/20 atorvastatin 20 mg tablet 20 mg PO QPM #0 tabs 11/28/22 cyanocobalamin (vitamin B-12) 500 1,000 mcg PO DAILY #0 tabs 11/28/22 mcg tablet (Vitamin B-12) dextrose 40 % oral gel (Glutose-15) 20 g PO DIRECTED PRN #0 grams 11/28/22 docusate sodium 100 mg capsule 100 mg PO TID PRN PRN #0 caps 11/28/22 (Colace) glycerin (adult) (Fleet Glycerin 1 supp KS DAILY #0 ea 11/28/22 (Adult) rectal suppository) insulin aspart U-100 100 unit/mL 0 units (0 mL) subcut 11/28/22 (3 mL) subcutaneous pen 0800,1200,1700,2200 #0 mL insulin aspart U-100 100 unit/mL See Rx Instructions .Route 11/28/22 (3 mL) subcutaneous pen .COMPLEX #0 mL lidocaine 5 % topical patch 1 patch topical Q24H #0 ea 11/28/22 tramadol 50 mg tablet 50 mg PO Q4H PRN PRN #0 tabs 11/28/22 Allergies Allergy/AdvReac Type Severity Reaction Status Date / Time naproxen [From Aleve] Allergy Unknown Itching Unverified 12/24/22 13:04 Penicillins Allergy Unknown Itching Unverified 12/24/22 13:04 propoxyphene Allergy Unknown Itching Unverified 12/24/22 13:04 Sulfa (Sulfonamide Allergy Unknown Itching Unverified 12/24/22 13:04 Antibiotics) methadone Allergy Verified 12/24/22 13:04 General Stated Complaint: Abd Prob RUBENS: 3 Review of Systems All systems reviewed & are unremarkable except as noted in HPI and below Constitutional Constitutional: Reports as per HPI, Denies chills and Denies fever(s) Eyes Eyes: Denies blurry vision ENT Ears, Nose, Mouth, and Throat: Denies dizziness, Denies sore throat and Denies throat swelling Cardiovascular Cardiovascular: Denies chest pain and Denies dyspnea Respiratory Respiratory: Denies cough and Denies dyspnea Gastrointestinal Gastrointestinal: Reports abdominal pain, Reports diarrhea and Reports vomiting Genitourinary Genitourinary: Denies hematuria, Denies dysuria and Reports flank pain Musculoskeletal Musculoskeletal: Denies back pain and Denies numbness Integumentary/Breasts Skin/Breast: Denies lesions and Denies rash Neurologic Neurologic: Denies dizziness, Denies localized weakness and Denies numbness Allergic/Immunologic Allergic/Immunologic: Denies throat swelling PFSH All Active Problems (Updated 12/25/22 @ 18:20 by Anusha Goetz MD, [place]) Advanced care planning/counseling discussion (Acute) UTI (urinary tract infection) (Acute) Lactic acid acidosis (Acute) Colon distention (Acute) Septic shock (Acute) Hypotension (Acute) Pulmonary embolism (Chronic) Hypokalemia (Acute) Hypocalcemia (Acute) Hypomagnesemia (Acute) Abdominal pain, vomiting, and diarrhea (Acute) Metabolic acidosis (Acute) Discharge planning issues (Acute) DALTON (acute kidney injury) (Acute) Metabolic acidosis (Acute) Pulmonary embolism (Acute) Diarrhea (Acute) Septic shock (Acute) Abdominal bloating (Acute) Abdominal pain (Chronic) Pyelonephritis (Acute) Microcytic anemia (Acute) Emphysematous pyelonephritis (Acute) Pyuria due to bacterial urinary tract infection (Acute) Hydronephrosis of right kidney (Acute) Gallstones (Acute) Arthritis of left shoulder region (Acute) Cough (Acute) Ileus (Acute) Tardive dyskinesia (Acute) Parkinsonism (Acute) History of stroke (Acute) Chronic chest pain (Chronic) Constipation (Chronic) Bipolar 1 disorder (Chronic) Bipolar affective disorder, current episode depressed (Acute) rule out bipolar disorder reported by patient. Antiepileptics maybe preventing manic episode. Major depressive disorder, recurrent, severe with psychotic features (Acute) Current presentation is depression. She may have bipolar affective disorder. Ambulatory dysfunction (Chronic) Hemiparesis affecting right side as late effect of cerebrovascular accident (Acute) Dysphagia as late effect of cerebrovascular accident (CVA) (Chronic) Dysarthria as late effect of cerebrovascular accident (CVA) (Acute) Aphasia as late effect of cerebrovascular accident (Acute) Neck pain (Acute) Autoimmune disorder (Acute) Medical History DALTON (acute kidney injury) Anxiety Bipolar 1 disorder Cholelithiasis with acute cholecystitis s/p cholecystostomy and stone extraction in 2014 ([facility]), tube now pulled. 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 insufficiency [employer] vasculitis Complicated UTI (urinary tract infection) Diverticulosis Hemiparesis affecting right side as late effect of cerebrovascular accident (CVA) Hepatitis C History of multiple cerebrovascular accidents (CVAs) Hypertension Hypothyroidism IDDM (insulin dependent diabetes mellitus) Left rotator cuff tear Lumbar disc disease Nephrolithiasis Neurogenic bladder Obesity (BMI 30.0-34.9) Palliative care encounter Septic shock Staghorn calculus Static encephalopathy Steroid dependent Uterine mass likely a fibroid UTI (urinary tract infection) Surgical History Abnormal cholangiogram H/O cervical spine surgery H/O foot surgery H/O wrist surgery History of extraction of renal calculus 12/13/2018 - [facility] History of hip surgery right History of lumbosacral spine surgery S/P cystoscopy with ureteral stent placement [facility] [[email or web address] 11/2018 Status post creation of urethral sling by suprapubic approach Family History Mother Stroke Social History Smoking/Tobacco Use Status: Former Tobacco Use Smoking risk assessment performed?: Yes Alcohol Intake: former Substance use type: former substance user and IV drugs Housing: alf Number of Children: 5 Education Level: elementary school Details: 6th grade, special ed, left school age 16. Current gender identity: female What is your relationship status?: Panel score (0-1 are the most socially isolated patients): 0 What type of physical activity do you participate in: none Do you feel safe at home: Yes Do you feel safe in your relationship?: Yes Exam Const General: cooperative Orientation: awake, oriented to person and oriented to place HENMT Head: normal to inspection Ears: hearing grossly normal bilaterally, external ears normal and TM's normal bilaterally Mouth: mucous membranes dry Throat: posterior oropharynx normal Eyes General: appearance normal, both eyes and all related structures Pupils: PERRL Neck Neck: normal visual inspection and No submandibular swelling Lymphatic: no lymphadenopathy noted Chest Chest: normal inspection of the chest Resp Effort & Inspection: normal respiratory effort and able to speak in complete sentences Auscultation: no rales, no wheezes and other (coarse expiratory breath sounds throughout) Cardio Rate: tachycardic Rhythm: regular rhythm GI Inspection: normal to inspection Palpation: soft, not firm, not rigid and tender in the RLQ and suprapubicly Auscultation: hypoactive bowel sounds Back/Spine/Pelvis Thoracic/Lumbar Spine: thoracic and lumbar spine normal to inspection Skin General skin exam: no rashes or lesions noted Full body images: 1. Minimal sacral erythema. No open wounds noted. Neuro General: patient alert, patient awake and oriented Patient Orientation: Person and Place Cognition: normal cognition Speech: abnormal speech garbled (baseline) Other: right arm/leg hemiparesis Extrem General: normal to inspection and no edema Other: R arm flexed at elbow and contracted. R foot in soft boot. No obvious open wounds noted to feet/heels. Psych Appearance: grossly normal Affect: normal affect Course Vital Signs Vital signs: Vital Signs Pulse 127 H 12/24/22 11:51 Respiratory Rate 17 12/24/22 11:51 Blood Pressure 90/60 L 12/24/22 11:51 Pulse Oximetry 96 12/24/22 11:51 Pulse 127 H 12/24/22 11:51 Respiratory Rate 17 12/24/22 11:51 Blood Pressure 90/60 L 12/24/22 11:51 Blood Pressure Position Sitting 12/24/22 11:51 Pulse Oximetry 96 12/24/22 11:51 Oxygen Delivery Method Room Air 12/24/22 11:51 Oxygen Flow Rate 0 12/24/22 11:51 Pain Level 9 12/24/22 11:51 Procedures Central Line Placement Left Femoral: Time Out Performed: Yes Patient Placed on Monitor/Pulse Ox: Yes MD Prep: mask, gown and gloves Central Line Prep: Chlorhexidine scrub Local Anesthetic: Lidocaine 1% Amount of anesthesia used (mL): 5 Ultrasound Used for Placement: No Central Line Lumen Inserted: triple Post Procedure: good blood return, all ports aspirated, flushed, capped and sutured in place with 3-0 nylon Patient Tolerated Procedure: well Additional Comments: Initially attempted placement in right femoral region with mulitple attempts and able to obtain a flash but unable to pass the guide wire. Critical Care Time Critical Care Time Critical Care Time: Yes Total Critical Care Time: 120 Attestation: I spent 120 minutes of critical care time with this patient. This does not include time spent on separately reported billable procedures.
[2022-12-24] MEDS: Normal Saline 500 ML IV (12:28)
--- NOTE | 2022-12-24 12:30 | RT.EKG_ITS ---
APPROVED REPORT Exam: Resting ECG Reason for Exam: tachycardia Patient Location: E HR:114 bpm ECG Measurements Heart Rate 114 AXIS RI 142 P 56 QRSd 85 QRS 31 QT 326 T 170 QTc 449 Conclusion Sinus tachycardia...rate> 99 Probable left atrial enlargement...P >50mS, <-0.10mV V1 Nonspecific T abnormalities, lateral leads...T <-0.10mV, I aVL V5 V6. Sinus. Normal axis. Normal intervals. No STEMI.
[2022-12-24 12:35] LABS: HCT 39.1 % (36.0-46.0); HGB 11.7 g/dL (11.2-15.7); MCH 25.5 pg (27.0-33.0); MCHC 29.9 % (32.0-36.0); MCV 85 fL (80-95); Platelet Count 221 10^3/uL (130-400); RBC 4.58 10^6/uL (3.93-5.22); RDW 24.4 % (11.7-14.6); RDW-SD 73.7 fL
[2022-12-24 12:38] LABS: WBC 25.74 10^3/uL (4.4-10.8)
[2022-12-24 13:01] LABS: Absolute Lymphocyte Count 2.83 10^3/uL (1.2-3.4); Absolute Monocyte Count 2.06 10^3/uL (0.1-0.8); Absolute Neutrophil Count 20.85 10^3/uL (1.2-6.7); Anisocytosis 2+; Bands % 23; Diff Comment Manual Differential; MPV 9.2 fL (8.0-11.0)
[2022-12-24] MEDS: Ondansetron 4 MG/2 ML VIAL IVP (13:07)
[2022-12-24 13:08] LABS: Lactate 3.4 mmol/L (0.6-1.4)
[2022-12-24 13:17] LABS: COVID-19 PCR Negative (Negative); Influenza A PCR Negative (Negative); Influenza B PCR Negative (Negative); RSV PCR Negative (Negative); Source Nasopharynx
[2022-12-24] MEDS: ACETAMINOPHEN 1,000 MG/100 ML BTL 400 MG IVPB (13:18)
[2022-12-24] MEDS: Normal Saline 500 ML 999 ML IV (13:23)
[2022-12-24 13:31] LABS: AST 8 U/L (15-37); Albumin 1.4 g/dL (3.4-5.0); Alkaline Phosphatase 37 U/L (46-116); Anion Gap 14.9 mmol/L (3-11); BUN 18 mg/dL (7-18); Bilirubin, Total 0.2 mg/dL (0.2-1.0); CO2 14.1 mmol/L (21.0-32.0); CREATININE 1.5 mg/dL (0.55-1.02); Chloride 115 mmol/L (98-107); Estimated GFR 39.16 (mL/min/1.73m2); Glucose 143 mg/dL (74-106); Lipase 11 U/L (16-77); Magnesium 0.8 mg/dL (1.8-2.4); Sodium 144 mmol/L (136-145); TSH (W/Ref FT4) 1.15 uIU/mL (0.36-3.74); Total Protein 4.4 g/dL (6.4-8.2); Troponin I < 50 ng/L (<or=60)
[2022-12-24 13:32] LABS: ALT < 6 U/L (14-59)
[2022-12-24 13:33] LABS: Calcium 5.7 mg/dL (8.5-10.1); Potassium 2.2 mmol/L (3.5-5.1)
[2022-12-24] MEDS: LORazepam 2 MG/ML VIAL 0.5 MG IVP (13:33)
[2022-12-24] MEDS: Normal Saline 1,000 ML 1000 ML IV ×2 (13:50→15:31)
[2022-12-24] MEDS: Normal Saline - Diluent 50 ML VIAL IV (13:56)
[2022-12-24] MEDS: Omnipaque 350 MG/ML 100 ML BTL IJ (13:56)
[2022-12-24] MEDS: Normal Saline Flush 10 ML SYR IVP ×3 (13:57→20:33)
[2022-12-24] MEDS: CEFEPIME 1 GM in Normal Saline 50 ML IVPB (14:30)
[2022-12-24] MEDS: Norepinephrine in D5W 8 MG/250 ML BAG 7.041 MG IV (14:34)
[2022-12-24] MEDS: Calcium Gluconate 4.65 MEQ/10 ML VIAL 4.65 MG IVP (14:37)
[2022-12-24] MEDS: Potassium Chloride 20 MEQ TABCR 40 MEQ PO (14:49)
[2022-12-24] MEDS: MAGNESIUM SULFATE 4 GM/100 ML BAG IVPB (15:02)
--- NOTE | 2022-12-24 15:05 | DI.VRAD_ITS ---
PROCEDURE INFORMATION: Exam: CTA Chest With Contrast CTA Abdomen With Contrast Exam date and time: 12/24/2022 1:51 PM Age: 62 years old Clinical indication: Other: SOB, cough, rlq abd pain, vomit, diarrhea R/O pe, pneumonia, appendicitis, colitis; Prior surgery; Surgery date: 6+ months; Surgery type: Lumbosacral, urethral stent , urethral sling, patient HX: Known uterine mass TECHNIQUE: Imaging protocol: Computed tomographic angiography of the chest with contrast. Computed tomographic angiography of the abdomen with contrast. 3D rendering (Not supervised by radiologist): MIP and/or 3D reconstructed images were created by the technologist. Contrast material: OMNIPAQUE 350; Contrast volume: 100 ml; Contrast route: INTRAVENOUS (IV); COMPARISON: CT CHEST/ABD/PEL W 06/13/2022 4:36 PM FINDINGS: VASCULATURE: Pulmonary arteries: The proximal interlobular arteries in the left lower lobe are poorly opacified worrisome for thrombus. The main pulmonary artery is dilated to 3.2 cm. No thrombi within the central pulmonary arteries through the segmental arteries. Aorta: No aortic aneurysm. No aortic dissection. Celiac trunk and mesenteric arteries: No occlusion or significant stenosis. Renal arteries: No occlusion or significant stenosis. CHEST: Lungs: Mild bronchiectasis. Fibrosis or linear atelectasis in the right lung base. No consolidations. Pleural spaces: Unremarkable. No pneumothorax. No pleural effusion. Heart: Unremarkable. No cardiomegaly. No pericardial effusion. RV/LV ratio equals one. ABDOMEN AND PELVIS: Liver: The liver is enlarged and of decreased attenuation consistent with fatty infiltration. There are no cysts or masses. Gallbladder and bile ducts: Unremarkable. No calcified stones. No ductal dilation. Pancreas: Unremarkable. No mass. No ductal dilation. Spleen: Unremarkable. No splenomegaly. Adrenal glands: Unremarkable. No mass. Kidneys and ureters: Probable lobulation of the kidney contour. The upper pole has a subcentimeter lucency likely a cyst too small to characterize. No solid mass. No hydronephrosis. Stomach and bowel: Unremarkable. No obstruction. No mucosal thickening. Appendix: The appendix is not identified, but there are no inflammatory changes in its expected region. Intraperitoneal space: Unremarkable. No free air. No significant fluid collection. Reproductive: The uterus is enlarged by a large fibroid approximally 7 cm in diameter. Lymph nodes: Unremarkable. No enlarged lymph nodes. Bones/joints: Unremarkable. No acute fracture. Soft tissues: Unremarkable. IMPRESSION: 1. Poor opacification of the left lower lobe interlobular pulmonary arteries that probably have small thrombi. No large vessel thrombi. 2. Findings compatible with pulmonary artery hypertension. 3. Right lower lobe interstitial change from fibrosis or linear atelectasis. No consolidations. No pleural effusions. 4. Fibroid uterus. 5. Hepatic steatosis Dictated and Authenticated by: Serafin Noyola MD. Ordering:JUAN Damon MD
[2022-12-24] MEDS: POTASSIUM CHLORIDE 20 MEQ/100 ML BAG 50 MEQ IVPB ×2 (15:08→16:50)
[2022-12-24] MEDS: Normal Saline-STERILE FIELD 0.9% 10 ML SYR ×2 (15:38→17:25)
--- NOTE | 2022-12-24 16:04 | HPE_ITS ---
Date of service: 12/24/22 Time of Service: 16:04 Assessment and Plan Assessment and plan (1) Septic shock: Status: Acute Assessment and plan: Source unclear. Hematologic? - blood cultures pending UTI? - UA pending. GI? - stool studies pending. Continue empiric vancomycin/cefepime. IVF to match I/Os. Currently, appears fluid overloaded. Hold off on MIVF. Pressors. Trend lactates. Will also give stress dose steroids - the patient has a h/o adrenal insufficiency. (2) Diarrhea: Status: Acute Assessment and plan: Await stools studies (3) Pulmonary embolism: Status: Acute Assessment and plan: Started on heparin gtt. Evidence of pulmonary hypertension - limits IV hydration. Obtain echo, venous dopplers. (4) Hypokalemia: Status: Acute Assessment and plan: REplete, replete mag. (5) Metabolic acidosis: Status: Acute Assessment and plan: In setting of septic shocks/lactic acidosis, DALTON. Hydrate, treat sepsis, IVF. (6) Hypocalcemia: Status: Acute Assessment and plan: Replete, recheck in am (7) Hypomagnesemia: Status: Acute Assessment and plan: replete, recheck in am (8) DALTON (acute kidney injury): Status: Acute Assessment and plan: Hydrate, treat sepsis (9) IDDM (insulin dependent diabetes mellitus): Assessment and plan: Cover with SSI (10) Discharge planning issues: Status: Acute Assessment and plan: Full code per my conversation with the patient. Admit to the ICU. Total Critical Care Time 60 minutes. Called Luis Armando per patient's request - left a voicemail. We do not have the contact for the daughter Nadine. History of Present Illness History of Present Illness Chief Complaint: Diarrhea, adbominal pain, vomiting Narrative: Ms Barrera is a 62 year old female with PMHx of chronic constipation on linzess, as well as h/o chronic abdominal pain, h/o CVA w/ aphasia, IDDM2, who was brought to [facility] ED [place] [facility] developing abdominal pain (right lower quadrant) x 5 days and vomiting x 2 days. She has been having diarrhea for two weeks. In the ER, she was found to be hypotensive with BPs 70/40, somewhat fluid responsive, however required initiation of vasopressors and placement of a central line. She was started on empiric vancomycin/cefepime due to a fever, tachycardia, low blood pressure, lactic acidosis with a strong suspicion of a septic shock. Stool studies were paolo ected. While her CT chest/abdomen/pelvis did not reveal an acute infectious process, it did suggest small pulmonary thrombi in LLL, for which the patient was started on heparin gtt. There was evidence of pulmonary hypertension. She was also found to have significant electrolyte derangements (potassium, calcium, magnesium were all low and repleted). Hospitalist admission was requested. The patient wants to be full code per my conversation with her. Review of Systems All systems reviewed & are unremarkable except as noted in HPI and below PFSH All Active Problems (Updated 12/24/22 @ 18:56 by Marisol Vegas DO) Septic shock (Acute) Hypotension (Acute) Pulmonary embolism (Chronic) Hypokalemia (Acute) Hypocalcemia (Acute) Hypomagnesemia (Acute) Discharge planning issues (Acute) Hypomagnesemia (Acute) Hypocalcemia (Acute) DALTON (acute kidney injury) (Acute) Metabolic acidosis (Acute) Hypokalemia (Acute) Pulmonary embolism (Acute) Diarrhea (Acute) Septic shock (Acute) Abdominal bloating (Acute) Abdominal pain (Chronic) Pyelonephritis (Acute) Microcytic anemia (Acute) Emphysematous pyelonephritis (Acute) Pyuria due to bacterial urinary tract infection (Acute) Hydronephrosis of right kidney (Acute) Gallstones (Acute) Arthritis of left shoulder region (Acute) Cough (Acute) Ileus (Acute) Tardive dyskinesia (Acute) Parkinsonism (Acute) History of stroke (Acute) Chronic chest pain (Chronic) Constipation (Chronic) Bipolar 1 disorder (Chronic) Bipolar affective disorder, current episode depressed (Acute) rule out bipolar disorder reported by patient. Antiepileptics maybe preventi ng manic episode. Major depressive disorder, recurrent, severe with psychotic features (Acute) Current presentation is depression. She may have bipolar affective disorder. Ambulatory dysfunction (Chronic) Hemiparesis affecting right side as late effect of cerebrovascular accident (Acute) Dysphagia as late effect of cerebrovascular accident (CVA) (Chronic) Dysarthria as late effect of cerebrovascular accident (CVA) (Acute) Aphasia as late effect of cerebrovascular accident (Acute) Neck pain (Acute) Autoimmune disorder (Acute) Medical History DALTON (acute kidney injury) Anxiety Bipolar 1 disorder Cholelithiasis with acute cholecystitis s/p cholecystostomy and stone extraction in 2014 ([facility]), tube now pulled. 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 Complicated UTI (urinary tract infection) Diverticulosis Hemiparesis affecting right side as late effect of cerebrovascular accident (CVA) Hepatitis C History of multiple cerebrovascular accidents (CVAs) Hypertension Hypothyroidism IDDM (insulin dependent diabetes mellitus) Left rotator cuff tear Lumbar disc disease Nephrolithiasis Neurogenic bladder Obesity (BMI 30.0-34.9) Palliative care encounter Septic shock Staghorn calculus Static encephalopathy Steroid dependent Uterine mass likely a fibroid UTI (urinary tract infection) Surgical History Abnormal cholangiogram H/O cervical spine surgery H/O foot surgery H/O wrist surgery History of extraction of renal calculus 12/13/2018 - [facility] History of hip surgery right History of lumbosacral spine surgery S/P cystoscopy with ureteral stent placement [facility] 11/2018 Status post creation of urethral sling by suprapubic approach Family History Mother Stroke Social History Smoking/Tobacco Use Status: Former Tobacco Use Smoking risk assessment performed?: Yes Alcohol Intake: former 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 Current gender identity: female What is your relationship status?: Panel score (0-1 are the most socially isolated patients): 0 What type of physical activity do you participate in: none Do you feel safe at home: Yes Do you feel safe in your relationship?: Yes Meds Allergies and Home Medications Allergies Allergy/AdvReac Type Severity Reaction Status Date / Time naproxen [From Aleve] Allergy Unknown Itching Unverified 12/24/22 13:04 Penicillins Allergy Unknown Itching Unverified 12/24/22 13:04 propoxyphene Allergy Unknown Itching Unverified 12/24/22 13:04 Sulfa (Sulfonamide Allergy Unknown Itching Unverified 12/24/22 13:04 Antibiotics) methadone Allergy Verified 12/24/22 13:04 Home Medications Medication Instructions Recorded Confirmed Type docusate sodium 100 mg capsule 100 mg PO .BID, PRN 03/26/20 11/20/22 History (Colace) mirtazapine 15 mg tablet 15 mg PO QHS 03/26/20 12/24/22 History lamotrigine 25 mg tablet (Lamictal) 50 mg PO DAILY #1 tab 04/08/20 12/24/22 Rx polyethylene glycol 3350 17 17 g PO DAILY PRN 04/19/20 12/24/22 History gram/dose oral powder (Miralax) trazodone 50 mg tablet 25 mg PO BID 07/07/20 12/24/22 History bisacodyl 10 mg rectal suppository 10 mg NM ONCE PRN 08/17/20 11/20/22 History metformin 500 mg tablet 1,000 mg PO BID 12/20/20 12/24/22 History lactase 3,000 unit tablet (Lactaid) 9,000 unit PO TID 06/22/21 12/24/22 History quetiapine 100 mg tablet 50 mg PO DAILY 06/22/21 12/24/22 History acetaminophen 500 mg tablet 500 mg PO BID 06/01/22 11/20/22 History albuterol sulfate 90 mcg/actuation 2 inh inhalation TID 06/01/22 11/20/22 History aerosol inhaler (Ventolin HFA) aspirin 81 mg tablet,delayed 81 mg PO DAILY 06/01/22 12/24/22 History release bupropion HCl 150 mg 24 hr tablet, 150 mg PO QAM 06/01/22 12/24/22 History extended release cetirizine 10 mg tablet 10 mg PO QAM 06/01/22 11/20/22 History diclofenac sodium 1 % topical gel 1 applic topical BID 06/01/22 12/24/22 History dulaglutide 1.5 mg/0.5 mL 1 device subcut DIRECTED 06/01/22 12/24/22 History subcutaneous pen injector (Trulicity) fluticasone propionate 50 1 spray intranasal BID 06/01/22 12/24/22 History mcg/actuation nasal spray,suspension (Flonase Allergy Relief) gabapentin 600 mg tablet 2 tab PO BID 06/01/22 12/24/22 History linaclotide 145 mcg capsule 145 mcg PO DAILY 06/01/22 12/24/22 History magnesium oxide 800 mg PO DAILY 06/01/22 12/24/22 History quetiapine 100 mg tablet 100 mg PO BID 06/01/22 12/24/22 History sennosides 8.6 mg tablet 17.2 mg PO HS PRN 06/01/22 11/20/22 History simethicone 180 mg capsule 1 cap PO QID PRN 06/13/22 12/24/22 History B-complex with vitamin C 1 cap PO DAILY 11/09/22 12/24/22 History carbidopa 25 mg-levodopa 100 mg 1 tab PO QID 11/09/22 12/24/22 History tablet levothyroxine 100 mcg tablet 100 mcg PO DAILY 11/09/22 12/24/22 History multivitamin-ferrous 1 tab PO DAILY 11/09/22 11/20/22 History fumarate-folic acid 18 mg-400 mcg tablet (Centrum Complete) omeprazole 20 mg capsule,delayed 20 mg PO DAILY 11/09/22 12/24/22 History release zruekmsxncgai-HS-rkkdrywrxxu 5 10 ml PO Q4H PRN 11/09/22 11/20/22 History mg-10 mg-100 mg/5 mL oral liquid ropinirole 0.5 mg tablet 0.5 mg PO QHS 11/09/22 12/24/22 History atorvastatin 20 mg tablet 20 mg PO QPM #0 tabs 11/28/22 12/24/22 Rx cyanocobalamin (vitamin B-12) 500 1,000 mcg PO DAILY #0 tabs 11/28/22 Rx mcg tablet (Vitamin B-12) dextrose 40 % oral gel (Glutose-15) 20 g PO DIRECTED PRN #0 grams 11/28/22 Rx docusate sodium 100 mg capsule 100 mg PO TID PRN PRN #0 caps 11/28/22 12/24/22 Rx (Colace) glycerin (adult) (Fleet Glycerin 1 supp NM DAILY #0 ea 11/28/22 12/24/22 Rx (Adult) rectal suppository) insulin aspart U-100 100 unit/mL 0 units (0 mL) subcut 11/28/22 Rx (3 mL) subcutaneous pen 0800,1200,1700,2200 #0 mL insulin aspart U-100 100 unit/mL See Rx Instructions .Route 11/28/22 Rx (3 mL) subcutaneous pen .COMPLEX #0 mL lidocaine 5 % topical patch 1 patch topical Q24H #0 ea 11/28/22 12/24/22 Rx tramadol 50 mg tablet 50 mg PO Q4H PRN PRN #0 tabs 11/28/22 12/24/22 Rx acetaminophen 500 mg tablet 1,000 mg PO DAILY 12/24/22 12/24/22 History albuterol sulfate 90 mcg/actuation 2 puff inhalation DAILY 12/24/22 12/24/22 History aerosol inhaler (Ventolin HFA) loratadine 10 mg capsule 10 mg PO DAILY 12/24/22 12/24/22 History lorazepam 0.5 mg tablet 0.5 mg PO BID 12/24/22 12/24/22 History Exam Narrative Exam Narrative: General: Weal appearing female who is on 2L of O2 by NC while laying flat, no dyspnea/tachypnea, A&Ox3, dysarthria (chronic) Neurological: A&Ox3, dysarthria (chronic) Psychiatric: Appropriate speech pattern/content Skin: Visible skin intact HEENT: Atraumatic, normocephalic, EOMI, dry MM, clear oropharynx, no submandibular or cervical lymphadenopathy, no goiter or JVD Cardiovascular: RRR, no m/r/g Lungs: Inspiratory and expiratory wheezing B lung yeung, rales at B bases, upper airway wheezing Gastrointestinal: Distended, tender RLQ Genitourinary: did not yet have a lozada at time of exam Extremities: no edema, trace pedal pulses, R foot with a lidocaine patch and in a inflatable boot. Results Imaging Additional studies: CT abdomen/pelvis: 1. ? Poor opacification of the left lower lobe interlobular pulmonary arteries that probably have small thrombi. No large vessel thrombi. 2. ? Findings compatible with pulmonary artery hypertension. 3. ? Right lower lobe interstitial change from fibrosis or linear atelectasis. No consolidations. No pleural effusions. 4. ? Fibroid uterus. 5. ? Hepatic steatosis EKG: ST, HR 114, nonspecific ST-T changes, no acute ischemia Labs 12/24/22 12:06 12/24/22 13:00 Labs: Laboratory Results - last 24 hr 12/24/22 12/24/22 12/24/22 12:06 12:06 13:00 WBC 25.74 H* RBC 4.58 Hgb 11.7 Hct 39.1 MCV 85 MCH 25.5 L MCHC 29.9 L RDW 24.4 H Plt Count 221 MPV 9.2 Immature Gran % See Differential Neutrophils % 58.0 Band Neutrophils % 23 Lymphocytes % 11.0 Monocytes % 8.0 Eosinophils % 0.0 Basophils % 0.0 Nucleated RBC % 0.0 Absolute Neutrophils 20.85 H Absolute Lymphocytes 2.83 Absolute Monocytes 2.06 H Absolute Eosinophils 0.00 Absolute Basophils 0.00 RBC Morphology See Below Anisocytosis 2+ VBG Lactate Sodium Potassium Chloride Carbon Dioxide Anion Gap BUN Creatinine Est GFR (CKD-EPI 2020) Glucose Calcium Magnesium Total Bilirubin AST ALT Alkaline Phosphatase Troponin I Total Protein Albumin Lipase Cancelled TSH COVID-19 Source Nasopharynx SARS-CoV-2 (PCR) Negative Influenza Type A (PCR) Negative Influenza Type B (PCR) Negative RSV (PCR) Negative 12/24/22 12/24/22 12/24/22 13:00 13:00 13:00 WBC RBC Hgb Hct MCV MCH MCHC RDW Plt Count MPV Immature Gran % Neutrophils % Band Neutrophils % Lymphocytes % Monocytes % Eosinophils % Basophils % Nucleated RBC % Absolute Neutrophils Absolute Lymphocytes Absolute Monocytes Absolute Eosinophils Absolute Basophils RBC Morphology Anisocytosis VBG Lactate 3.4 H* Sodium 144 Potassium 2.2 L* Chloride 115 H Carbon Dioxide 14.1 L Anion Gap 14.9 H BUN 18 Creatinine 1.5 H Est GFR (CKD-EPI 2020) 39.16 Glucose 143 H Calcium 5.7 L* Magnesium 0.8 L Total Bilirubin 0.2 AST 8 L ALT < 6 L Alkaline Phosphatase 37 L Troponin I < 50 Total Protein 4.4 L Albumin 1.4 L Lipase 11 L TSH 1.15 Cancelled COVID-19 Source SARS-CoV-2 (PCR) Influenza Type A (PCR) Influenza Type B (PCR) RSV (PCR) Last Vital Signs Temp 37.1 C 12/24/22 15:35 Pulse 103 H 12/24/22 15:40 Resp 15 12/24/22 15:41 BP 80/47 L 12/24/22 15:40 Pulse Ox 96 12/24/22 11:51 Time Spent Time spent with Patient: 55-74 minutes Time was spent: preparing to see the patient(eg.review tests), obtaining and/or reviewing separately otained hiistory, ordering medications,tests, procedures, referring, communicating with other health care mgr, indepentently interpreting results, counseling the patient and care coordination
[2022-12-24 16:07] LABS: Lab Add On Test DONE
[2022-12-24] MEDS: HYDROmorphone 2 MG/ML SYR (16:21)
[2022-12-24 16:33] LABS: C Diff PCR Negative (Negative)
[2022-12-24] MEDS: Lactated Ringers 1,000 ML 125 ML IV (16:45)
[2022-12-24 16:53] LABS: C-Reactive Protein 24.09 mg/dL (0.0-0.3)
[2022-12-24 17:12] LABS: Procalcitonin 6.2 ng/mL
[2022-12-24 17:54] LABS: Lactate 4.7 mmol/L (0.6-1.4)
[2022-12-24 18:15] LABS: INR 1.1 (0.9-1.1); PTT Activated 31.4 sec (21.5-31.9); Prothrombin Time 11.5 sec (9.3-11.0)
[2022-12-24] MEDS: Hydrocortisone SOD SUC. 100 MG VIAL IVP (19:07)
[2022-12-24 19:37] LABS: Lactate 5.4 mmol/L (0.6-1.4)
[2022-12-24] MEDS: VANCOMYCIN/WATER (PEG) 1.25 GM/250 ML BAG IV (21:30)
[2022-12-24] MEDS: metroNIDAZOLE 500 MG/100 ML BAG 100 MG IVPB (21:30)
[2022-12-24] MEDS: Carbidopa 25/Levodopa 100 TAB PO (21:38)
[2022-12-24] MEDS: Simethicone 80 MG CHEW PO (21:38)
[2022-12-24] MEDS: rOPINIRole 0.5 MG TAB PO (21:38)
[2022-12-24] MEDS: Mirtazapine 15 MG TAB PO (21:38)
[2022-12-24] MEDS: traZODone 50 MG TAB 25 MG PO (21:39)
[2022-12-24] MEDS: Gabapentin 600 MG TAB 1200 MG PO (21:39)
[2022-12-24] MEDS: traMADol 50 MG TAB PO (21:39)
[2022-12-24] MEDS: Acetaminophen 325 MG TAB PO (21:39)
[2022-12-24] MEDS: LORazepam 0.5 MG TAB PO (21:39)
[2022-12-24] MEDS: QUEtiapine 100 MG TAB PO (21:40)
[2022-12-24] MEDS: Diclofenac 1% Gel 100 GM TUBE TP (21:44)
--- NOTE | 2022-12-24 21:44 | NUR.NOTE ---
Erick LANDRY delivered 250ns with inessa vega but order states in water. Manpreet at [facility] states we should mix this in NS a this timeNursing Note:
[2022-12-24] MEDS: Calcium Citrate 950 MG TAB PO (21:59)
[2022-12-24] MEDS: Insulin Aspart 300 UNITS/3 ML PEN SC (22:15)
[2022-12-24] MEDS: Hydrocortisone SOD SUC. 100 MG VIAL 50 MG IVP (22:17)
[2022-12-25] VITALS (57 sets, daily range): BP systolic 87–149; BP diastolic 49–107; PULSE 86–111; RESP 8–17; TEMP 36.4–37; O2SAT 93–98
--- NOTE | 2022-12-25 | DI.RAD_ITS ---
Exam(s) XR ABDOMEN FLAT PLATE EXAM: XR ABDOMEN FLAT PLATE CLINICAL HISTORY: colon distention. TECHNIQUE: 2D digital imaging was performed. COMPARISON: CR,XR XR ABDOMEN FLAT PLATE from 11/21/2022 FINDINGS: AP supine view the abdomen, compared to 11/22/2022. Air is seen in the body of the stomach as well as throughout bowel loops in the abdomen and pelvis in cluding both large and small bowel loops. Probable I ileus but difficult to assess without an uprigh t or decubitus view. There is a left femoral central venous line. Its distal tip is in the left common iliac vein. IMPRESSION: As above. DATA REPOSITORY: RADIATION DOSE DELIVERED:
[2022-12-25 00:01] LABS: Bilirubin Negative (Negative); Blood Moderate (Negative); Clarity Sl Cloudy (Clear); Glucose Negative (Negative); Ketones Negative (Negative); Leukocyte Esterase Trace (Negative); Nitrite Negative (Negative); Urobilinogen 0.2 mg/dL (Up to 0.2)
[2022-12-25 00:12] LABS: Bacteria Moderate HPF (Negative); C & S Indicated? Yes; Casts 3-5 Fine Granular LPF (Negative); Crystals Negative HPF (Negative); Epithelial Cells Rare HPF (Negative); Mucus Negative (Negative); WBC >50 HPF (0-5)
[2022-12-25] MEDS: Norepinephrine in D5W 8 MG/250 ML BAG 39.428 MG IV (00:37)
[2022-12-25 01:49] LABS: PTT Activated 129.3 sec (21.5-31.9)
[2022-12-25] MEDS: metroNIDAZOLE 500 MG/100 ML BAG 100 MG IVPB ×4 (02:32→21:28)
[2022-12-25] MEDS: CEFEPIME 1 GM in Normal Saline 50 ML IVPB ×2 (04:45→17:34)
[2022-12-25] MEDS: Hydrocortisone SOD SUC. 100 MG VIAL 50 MG IVP (05:30)
[2022-12-25] MEDS: Normal Saline Flush 10 ML SYR IVP ×3 (05:45→21:28)
[2022-12-25 06:17] LABS: Abs Immature Grans 0.29 10^3/uL (0.0-0.06); HCT 29.7 % (36.0-46.0); HGB 8.9 g/dL (11.2-15.7); MCH 25.9 pg (27.0-33.0); MCV 86 fL (80-95); MPV 9.2 fL (8.0-11.0); Platelet Count 226 10^3/uL (130-400); RBC 3.44 10^6/uL (3.93-5.22); WBC 23.45 10^3/uL (4.4-10.8)
[2022-12-25] MEDS: Insulin Aspart 300 UNITS/3 ML PEN SC ×4 (06:49→22:47)
[2022-12-25 06:52] LABS: Absolute Eosinophil Count 0.23 10^3/uL (0.0-0.7); Absolute Monocyte Count 0.47 10^3/uL (0.1-0.8); Absolute Neutrophil Count 21.81 10^3/uL (1.2-6.7); Bands % 3
[2022-12-25 06:53] LABS: Absolute Basophil Count 0.23 10^3/uL (0.0-0.2); Diff Comment Manual Differential
[2022-12-25 06:54] LABS: Anisocytosis 2+; Hypochromasia 2+; Polychromasia Present
--- NOTE | 2022-12-25 07:09 | W.PULMCC ---
General Date of Service Date of service: 12/25/22 Time of Service: 07:10 Reason for Admission to ICU: Septic Shock Assessment and Plan Assessment and plan (1) Septic shock: Status: Acute (2) Hypokalemia: Status: Acute (3) DALTON (acute kidney injury): Status: Acute (4) Hypocalcemia: Status: Acute (5) Hypomagnesemia: Status: Acute (6) Colon distention: Status: Acute (7) Metabolic acidosis: Status: Acute (8) Parkinsonism: Status: Acute (9) Bipolar 1 disorder: Status: Chronic (10) Ambulatory dysfunction: Status: Chronic (11) Lactic acid acidosis: Status: Acute (12) UTI (urinary tract infection): Status: Acute Assessment and plan: This is a chronically ill 62 yo admitted to the ICU with septic shock. The most likely causes of her sepsis is UTI or the descending colon distention with gut bacteria translocation. She is on cefepime and Flagyl which will cover both etiologies. All cultures are pending. She is requiring Levophed and has a femoral CVC placed for this. On my POCUS, I feel as though she is somewhat underfilled. She is also not volume overloaded on exam today. I will give 500cc LR in order to try to assist in weaning off vasopressors. If we are unable to wean the vasopressors by this aftrernoon, I would recommend adding vasopressin. She is on methylpred for stress steroids, however, I recommend changing this to hydrocortisone 50mg q8Hr if able (there is a national shortage so will need to give it PO). I do think she can have a liquid diet today. If her pressor requirements increase significantly, then we will have to reconsider this. On her CT scan, I cannot see a PE and in the absence of respiratory failure, I think the anticoagulation can be stopped. Qualifiers: Urinary tract infection type: site unspecified Recommendations Pulmonary: No acute concerns Cardiac: Septic Shock - on Levophed - change methylpred to hydrocort PO for stress dose steroids - 500cc LR bolus given - wean Levophed - target MAP 60-65mmHg - s/p TTE this morning Renal: DALTON - likely due to hypoperfusion - monitor I/O's Electrolyte disturbances - improved from yesterday Lactic Acidosis - resolved with resuscitation AGMA and NAGMA - anion gap due to lactic acidosis - has resolved - non anion juan MA due to urine failure - still present but improving I&O: Intake & Output 12/22/22 12/23/22 12/24/22 12/25/22 23:59 23:59 23:59 23:59 Intake Total 4220.209 / 4220.209 463.209 / 463.209 Output Total 0 / 300 1200 / 1200 Balance 4220.209 / 3920.209 -736.791 / -736.791 Weight 79.3 kg Daily Fluid Goal:: even GI Nutrition: Colonic distension - could cause gut bacteria translocation resulting in sepsis - OK for liquid diet as tolerated - on Mylanta - can consider colonic decompression and even neostigmine if distention is worsening (usually >9cm) - daily abdominal flat plates to monitor Date of Last Bowel Movement: 12/24/22 Infectious Disease: Septic shock - UA concerning for UTI, however could be colonization due to chronic issues - colonic distension could cause gut translocation of bacteria - vasopressor support as above - continue cefepime and metronidazole - urine and blood cultures pending Hematologic: Leukocytosis - due to infection - very elevated neutrophil:lymphocyte ratio Neurologic: H/O bipolar and parkinsonism - home meds being continued Endocrine: h/o diabetes - goal 140-180 - on insulin - may need to be adjusted due to steroids being given Lines: Left femoral CVC Martinez Prophylaxis: on a heparin infusion - can change just to DVT ppx Omeprazole Code Status: Resuscitation Status FULL CODE Subjective Critical and life-threatening events over the past 24 hours: This is a chronically ill 62 yo admitted to the ICU for septic shock. The source has been unclear, however likely colonic distension and/or urinary. She is on cefepime and Flagyl. She is also receiving stress dose steroids. She had a CT abdomen and pelvis which was not overly revealing, however on examination of the scan her descending colon is almost 8cm, which is enlarged from her prior scan 6 weeks ago. 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 There was a non ideal CTPE performed, no PE's seen but patient was placed on empiric anticoagulation. Today she mentions pain in the right lower back and abdomen distention. She does mention some trouble breathing as well. Exam Narrative Exam Narrative: POCUS 12/25/22: All views obtained. Normal LVEF. Normal RV size and function. No pericardial effusion. IVC has >50% collapse with inspiration and is small. Gen: NAD, normal respiratory effort, well-nourished HENT: PERRL, nasal turbinates normal without erythema or inflammation, moist oral mucosa, Mallampati 2, No LAD or JVD Chest: No respiratory distress, normal appearance of chest, clear to auscultation bilaterally, no crackles or wheeze anteriorly. Heart: regular rate and rhythym, no murmurs, rubs or gallops Abdomen: Non-distended, soft, non tender Extremities: No clubbing, edema, cyanosis, rashes Neuro: AAOx3 , non focal Psych: cooperative, appropriate mental affect Most Recent VS/Results Last Vital Signs Temp 36.9 C 12/25/22 04:00 Pulse 96 H 12/25/22 06:00 Resp 9 L 12/25/22 06:00 BP 105/55 L 12/25/22 06:00 Pulse Ox 98 12/25/22 06:00 Laboratory Results - last 24 hr 12/24/22 12/24/22 12/24/22 12:06 12:06 13:00 WBC 25.74 H* RBC 4.58 Hgb 11.7 Hct 39.1 MCV 85 MCH 25.5 L MCHC 29.9 L RDW 24.4 H Plt Count 221 MPV 9.2 Immature Gran % See Differential Neutrophils % 58.0 Band Neutrophils % 23 Lymphocytes % 11.0 Monocytes % 8.0 Eosinophils % 0.0 Basophils % 0.0 Nucleated RBC % 0.0 Absolute Neutrophils 20.85 H Absolute Lymphocytes 2.83 Absolute Monocytes 2.06 H Absolute Eosinophils 0.00 Absolute Basophils 0.00 RBC Morphology See Below Polychromasia Hypochromasia Anisocytosis 2+ PT INR APTT VBG Lactate Sodium Potassium Chloride Carbon Dioxide Anion Gap BUN Creatinine Est GFR (CKD-EPI 2020) Glucose Calcium Magnesium Total Bilirubin AST ALT Alkaline Phosphatase Troponin I C-Reactive Protein Total Protein Albumin Lipase Cancelled Procalcitonin TSH Urine Color Urine Clarity Urine pH Ur Specific [place] Urine Protein Urine Ketones Urine Blood Urine Nitrite Urine Bilirubin Urine Urobilinogen Ur Leukocyte Esterase Urine RBC Urine WBC Ur Epithelial Cells Urine Crystals Urine Bacteria Urine Casts Urine Mucus Ur Culture Indicated? Urine Glucose Stl C.difficile Tox PCR COVID-19 Source Nasopharynx SARS-CoV-2 (PCR) Negative Influenza Type A (PCR) Negative Influenza Type B (PCR) Negative RSV (PCR) Negative Add-On Test Request 12/24/22 12/24/22 12/24/22 13:00 13:00 13:00 WBC RBC Hgb Hct MCV MCH MCHC RDW Plt Count MPV Immature Gran % Neutrophils % Band Neutrophils % Lymphocytes % Monocytes % Eosinophils % Basophils % Nucleated RBC % Absolute Neutrophils Absolute Lymphocytes Absolute Monocytes Absolute Eosinophils Absolute Basophils RBC Morphology Polychromasia Hypochromasia Anisocytosis PT INR APTT VBG Lactate 3.4 H* Sodium 144 Potassium 2.2 L* Chloride 115 H Carbon Dioxide 14.1 L Anion Gap 14.9 H BUN 18 Creatinine 1.5 H Est GFR (CKD-EPI 2020) 39.16 Glucose 143 H Calcium 5.7 L* Magnesium 0.8 L Total Bilirubin 0.2 AST 8 L ALT < 6 L Alkaline Phosphatase 37 L Troponin I < 50 C-Reactive Protein Total Protein 4.4 L Albumin 1.4 L Lipase 11 L Procalcitonin TSH 1.15 Cancelled Urine Color Urine Clarity Urine pH Ur Specific [place] Urine Protein Urine Ketones Urine Blood Urine Nitrite Urine Bilirubin Urine Urobilinogen Ur Leukocyte Esterase Urine RBC Urine WBC Ur Epithelial Cells Urine Crystals Urine Bacteria Urine Casts Urine Mucus Ur Culture Indicated? Urine Glucose Stl C.difficile Tox PCR COVID-19 Source SARS-CoV-2 (PCR) Influenza Type A (PCR) Influenza Type B (PCR) RSV (PCR) Add-On Test Request 12/24/22 12/24/22 12/24/22 13:00 13:00 15:35 WBC RBC Hgb Hct MCV MCH MCHC RDW Plt Count MPV Immature Gran % Neutrophils % Band Neutrophils % Lymphocytes % Monocytes % Eosinophils % Basophils % Nucleated RBC % Absolute Neutrophils Absolute Lymphocytes Absolute Monocytes Absolute Eosinophils Absolute Basophils RBC Morphology Polychromasia Hypochromasia Anisocytosis PT INR APTT VBG Lactate Sodium Potassium Chloride Carbon Dioxide Anion Gap BUN Creatinine Est GFR (CKD-EPI 2020) Glucose Calcium Magnesium Total Bilirubin AST ALT Alkaline Phosphatase Troponin I C-Reactive Protein 24.09 H Total Protein Albumin Lipase Procalcitonin 6.2 TSH Urine Color Urine Clarity Urine pH Ur Specific [place] Urine Protein Urine Ketones Urine Blood Urine Nitrite Urine Bilirubin Urine Urobilinogen Ur Leukocyte Esterase Urine RBC Urine WBC Ur Epithelial Cells Urine Crystals Urine Bacteria Urine Casts Urine Mucus Ur Culture Indicated? Urine Glucose Stl C.difficile Tox PCR Negative COVID-19 Source SARS-CoV-2 (PCR) Influenza Type A (PCR) Influenza Type B (PCR) RSV (PCR) Add-On Test Request 12/24/22 12/24/22 12/24/22 15:45 17:45 17:55 WBC RBC Hgb Hct MCV MCH MCHC RDW Plt Count MPV Immature Gran % Neutrophils % Band Neutrophils % Lymphocytes % Monocytes % Eosinophils % Basophils % Nucleated RBC % Absolute Neutrophils Absolute Lymphocytes Absolute Monocytes Absolute Eosinophils Absolute Basophils RBC Morphology Polychromasia Hypochromasia Anisocytosis PT 11.5 H INR 1.1 APTT 31.4 VBG Lactate 4.7 H* Sodium Potassium Chloride Carbon Dioxide Anion Gap BUN Creatinine Est GFR (CKD-EPI 2020) Glucose Calcium Magnesium Total Bilirubin AST ALT Alkaline Phosphatase Troponin I C-Reactive Protein Total Protein Albumin Lipase Procalcitonin TSH Urine Color Urine Clarity Urine pH Ur Specific [place] Urine Protein Urine Ketones Urine Blood Urine Nitrite Urine Bilirubin Urine Urobilinogen Ur Leukocyte Esterase Urine RBC Urine WBC Ur Epithelial Cells Urine Crystals Urine Bacteria Urine Casts Urine Mucus Ur Culture Indicated? Urine Glucose Stl C.difficile Tox PCR COVID-19 Source SARS-CoV-2 (PCR) Influenza Type A (PCR) Influenza Type B (PCR) RSV (PCR) Add-On Test Request DONE 12/24/22 12/24/22 12/25/22 19:30 23:22 01:03 WBC RBC Hgb Hct MCV MCH MCHC RDW Plt Count MPV Immature Gran % Neutrophils % Band Neutrophils % Lymphocytes % Monocytes % Eosinophils % Basophils % Nucleated RBC % Absolute Neutrophils Absolute Lymphocytes Absolute Monocytes Absolute Eosinophils Absolute Basophils RBC Morphology Polychromasia Hypochromasia Anisocytosis PT INR APTT 129.3 H* VBG Lactate 5.4 H* Sodium Potassium Chloride Carbon Dioxide Anion Gap BUN Creatinine Est GFR (CKD-EPI 2020) Glucose Calcium Magnesium Total Bilirubin AST ALT Alkaline Phosphatase Troponin I C-Reactive Protein Total Protein Albumin Lipase Procalcitonin TSH Urine Color Yellow Urine Clarity Sl Cloudy Urine pH 6.0 Ur Specific [place] 1.020 Urine Protein 100 H Urine Ketones Negative Urine Blood Moderate H Urine Nitrite Negative Urine Bilirubin Negative Urine Urobilinogen 0.2 Ur Leukocyte Esterase Trace H Urine RBC 5-10 H Urine WBC >50 H Ur Epithelial Cells Rare Urine Crystals Negative Urine Bacteria Moderate Urine Casts 3-5 Fine Granular Urine Mucus Negative Ur Culture Indicated? Yes Urine Glucose Negative Stl C.difficile Tox PCR COVID-19 Source SARS-CoV-2 (PCR) Influenza Type A (PCR) Influenza Type B (PCR) RSV (PCR) Add-On Test Request 12/25/22 06:00 WBC 23.45 H RBC 3.44 L Hgb 8.9 L D Hct 29.7 L MCV 86 MCH 25.9 L MCHC 30.0 L RDW 24.0 H Plt Count 226 MPV 9.2 Immature Gran % See Differential Neutrophils % 90.0 Band Neutrophils % 3 Lymphocytes % 3.0 Monocytes % 2.0 Eosinophils % 1.0 Basophils % 1.0 Nucleated RBC % 0.0 Absolute Neutrophils 21.81 H Absolute Lymphocytes 0.70 L Absolute Monocytes 0.47 Absolute Eosinophils 0.23 Absolute Basophils 0.23 H RBC Morphology See Below Polychromasia Present Hypochromasia 2+ Anisocytosis 2+ PT INR APTT VBG Lactate Sodium Potassium Chloride Carbon Dioxide Anion Gap BUN Creatinine Est GFR (CKD-EPI 2020) Glucose Calcium Magnesium Total Bilirubin AST ALT Alkaline Phosphatase Troponin I C-Reactive Protein Total Protein Albumin Lipase Procalcitonin TSH Urine Color Urine Clarity Urine pH Ur Specific [place] Urine Protein Urine Ketones Urine Blood Urine Nitrite Urine Bilirubin Urine Urobilinogen Ur Leukocyte Esterase Urine RBC Urine WBC Ur Epithelial Cells Urine Crystals Urine Bacteria Urine Casts Urine Mucus Ur Culture Indicated? Urine Glucose Stl C.difficile Tox PCR COVID-19 Source SARS-CoV-2 (PCR) Influenza Type A (PCR) Influenza Type B (PCR) RSV (PCR) Add-On Test Request Review of Systems All systems reviewed & are unremarkable except as noted in HPI and below Time spent with patient Time spent in Critical Care: 45 Time spent in Critical care included: Chart review, Documenting critically ill care, Time at immediate bedside and Discussing critically ill care with other medical staff
[2022-12-25 07:25] LABS: ALT 6 U/L (14-59); AST 15 U/L (15-37); Albumin 2.2 g/dL (3.4-5.0); Alkaline Phosphatase 81 U/L (46-116); Anion Gap 10.9 mmol/L (3-11); BUN 24 mg/dL (7-18); Bilirubin, Direct 0.1 mg/dL (0.0-0.2); Bilirubin, Total 0.3 mg/dL (0.2-1.0); CO2 20.1 mmol/L (21.0-32.0); CREATININE 1.3 mg/dL (0.55-1.02); Chloride 105 mmol/L (98-107); Estimated GFR 46.49 (mL/min/1.73m2); Glucose 300 mg/dL (74-106); Magnesium 2.5 mg/dL (1.8-2.4); Potassium 4.1 mmol/L (3.5-5.1); Sodium 136 mmol/L (136-145); Total Protein 6.9 g/dL (6.4-8.2)
[2022-12-25 07:48] LABS: C-Reactive Protein > 25.00 mg/dL (0.0-0.3)
--- NOTE | 2022-12-25 07:58 | PCNE_ITS ---
Date of service: 12/25/22 Time of Service: 07:58 History of Present Illness History of Present Illness Chief Complaint: diarrhea Narrative: From H and P: History of Present Illness History of Present Illness?Chief Complaint: Diarrhea, adbominal pain, vomiting?Narrative: Ms Barrera is a 62 year old female with PMHx of chronic constipation on linzess, as well as h/o chronic abdominal pain, h/o CVA w/ aphasia, IDDM2, who was brought to [facility] ED today by ambulance from the [facility] after developing a bdominal pain (right lower quadrant) x 5 days and vomiting x 2 days. She has been having diarrhea for two weeks. In the ER, she was found to be hypotensive with BPs 70/40, somewhat fluid responsive, however required initiation of vasopressors and placement of a central line. She was started on empiric vancomycin/cefepime due to a fever, tachycardia, low blood pressure, lactic acidosis with a strong suspicion of a septic shock.? Stool studies were collected. While her CT chest/abdomen/pelvis did not reveal an acute infectious process, it did suggest small pulmonary thrombi in LLL, for which the patient was started on heparin gtt. There was evidence of pulmonary hypertension.? She was also found to have significant electrolyte derangements (potassium, calcium, magnesium were all low and repleted). Hospitalist admission was requested. The patient wants to be full code per my conversation with her. ? Interim Hx: Ginger was admitted to the ICU. She was started on pressors, hydration, and antibiotics. Today she is feeling better. She states that her stomach is not hurting and that she wants strawberry milkshakes with every meal so she gets stronger. She also wants tea and other dietary considerations. Dr. Mcleod saw Ginger this morning and felt that it could be urosepsis. Dr. Osorio has seen Ginger and is concerned about her abdomen. The good thing is that Ginger is getting better and feels like eating. Dr. Osorio asked me to meet with Ginger to clarify her CODE STATUS and also whether she would be willing to be transported to a tertiary care center if her condition deteriorated Assessment and Plan Assessment and plan (1) Colon distention: Status: Acute (2) Hypotension: Status: Acute (3) Abdominal pain, vomiting, and diarrhea: Status: Acute (4) Advanced care planning/counseling discussion: Status: Acute Assessment and plan: Ginger's vitals were much improved. The plan is to start weaning her from her pressors. She was talkative during our time together. She clearly stated that she would want CPR. She understood what CPR was i.e. chest compressions, electricity, and intubation. She states that she wants to live and if she needs CPR she would want it Initially she was reluctant to consider transport to another facility because she states that she was getting good care at [facility]. 1 we talked about different scenarios she admitted that she would want to be transferred if care could not be delivered at [facility] Ginger also states that she wants her father to be in charge of making decisions for her if she cannot. If her father is unable to do this she would want her Sister Sandra to make decisions. She clearly stated that she does not want her daughter making those decisions. Ginger also stated that she would like strawberry milkshakes with every meal. She thought she would get better quicker if she could have these milkshakes.. She would also like tea. presently she is on clear liquids Ginger understands that she will be returning to the [facility] after she recovers from this episode. Thank you very much for this consult. Review of Systems Narrative: Abdominal pain, diarrhea x2 weeks, no urinary complaints, no chest pain, she is always short of breath, PFSH All Active Problems (Updated 12/25/22 @ 18:20 by Anusha Goetz MD, [place]) Advanced care planning/counseling discussion (Acute) UTI (urinary tract infection) (Acute) Lactic acid acidosis (Acute) Colon distention (Acute) Septic shock (Acute) Hypotension (Acute) Pulmonary embolism (Chronic) Hypokalemia (Acute) Hypocalcemia (Acute) Hypomagnesemia (Acute) Abdominal pain, vomiting, and diarrhea (Acute) Metabolic acidosis (Acute) Discharge planning issues (Acute) DALTON (acute kidney injury) (Acute) Metabolic acidosis (Acute) Pulmonary embolism (Acute) Diarrhea (Acute) Septic shock (Acute) Abdominal bloating (Acute) Abdominal pain (Chronic) Pyelonephritis (Acute) Microcytic anemia (Acute) Emphysematous pyelonephritis (Acute) Pyuria due to bacterial urinary tract infection (Acute) Hydronephrosis of right kidney (Acute) Gallstones (Acute) Arthritis of left shoulder region (Acute) Cough (Acute) Ileus (Acute) Tardive dyskinesia (Acute) Parkinsonism (Acute) History of stroke (Acute) Chronic chest pain (Chronic) Constipation (Chronic) Bipolar 1 disorder (Chronic) Bipolar affective disorder, current episode depressed (Acute) rule out bipolar disorder reported by patient. Antiepileptics maybe preve nting manic episode. Major depressive disorder, recurrent, severe with psychotic features (Acute) Current presentation is depression. She may have bipolar affective disorder. Ambulatory dysfunction (Chronic) Hemiparesis affecting right side as late effect of cerebrovascular accident (Acute) Dysphagia as late effect of cerebrovascular accident (CVA) (Chronic) Dysarthria as late effect of cerebrovascular accident (CVA) (Acute) Aphasia as late effect of cerebrovascular accident (Acute) Neck pain (Acute) Autoimmune disorder (Acute) Medical History DALTON (acute kidney injury) Anxiety Bipolar 1 disorder Cholelithiasis with acute cholecystitis s/p cholecystostomy and stone extraction in 2014 ([facility]), tube now pulled. 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 Complicated UTI (urinary tract infection) Diverticulosis Hemiparesis affecting right side as late effect of cerebrovascular accident (CVA) Hepatitis C History of multiple cerebrovascular accidents (CVAs) Hypertension Hypothyroidism IDDM (insulin dependent diabetes mellitus) Left rotator cuff tear Lumbar disc disease Nephrolithiasis Neurogenic bladder Obesity (BMI 30.0-34.9) Palliative care encounter Septic shock Staghorn calculus Static encephalopathy Steroid dependent Uterine mass likely a fibroid UTI (urinary tract infection) Surgical History Abnormal cholangiogram H/O cervical spine surgery H/O foot surgery H/O wrist surgery History of extraction of renal calculus 12/13/2018 - [facility] History of hip surgery right History of lumbosacral spine surgery S/P cystoscopy with ureteral stent placement [facility] 11/2018 Status post creation of urethral sling by suprapubic approach Family History Mother Stroke Social History Smoking/Tobacco Use Status: Former Tobacco Use Smoking risk assessment performed?: Yes Alcohol Intake: former Substance use type: former substance user and IV drugs Housing: snf Number of Children: 5 Education Level: elementary school Details: 6th grade, special ed, left school age 16. Current gender identity: female What is your relationship status?: Panel score (0-1 are the most socially isolated patients): 0 What type of physical activity do you participate in: none Do you feel safe at home: Yes Do you feel safe in your relationship?: Yes Exam Narrative Exam Narrative: 62-year-old female in no acute distress. She is putting on make-up. She is lying in bed and has limited use of her right side. She is edentulous and also has difficulty with her speech. Her heart is regular with good rate. Her lungs are clear although there was very little air movement. Abdomen bowel sounds heard in 3 out of 4 quadrants. She remains mildly tender in her abdomen. Her right foot is in a boot to protect the heel. Left foot is protected and on the bed. She answers my questions but many times have to repeat herself as I was finding difficulty following her speech. Results Last Vital Signs Temp 98.4 F 12/25/22 04:00 Pulse 96 H 12/25/22 06:00 Resp 9 L 12/25/22 06:00 BP 105/55 L 12/25/22 06:00 Pulse Ox 98 12/25/22 06:00 Labs 12/25/22 06:00 12/25/22 06:00 Labs: Laboratory Results - last 24 hr 12/24/22 12/24/22 12/24/22 12:06 12:06 13:00 WBC 25.74 H* RBC 4.58 Hgb 11.7 Hct 39.1 MCV 85 MCH 25.5 L MCHC 29.9 L RDW 24.4 H Plt Count 221 MPV 9.2 Immature Gran % See Differential Neutrophils % 58.0 Band Neutrophils % 23 Lymphocytes % 11.0 Monocytes % 8.0 Eosinophils % 0.0 Basophils % 0.0 Nucleated RBC % 0.0 Absolute Neutrophils 20.85 H Absolute Lymphocytes 2.83 Absolute Monocytes 2.06 H Absolute Eosinophils 0.00 Absolute Basophils 0.00 RBC Morphology See Below Polychromasia Hypochromasia Anisocytosis 2+ PT INR APTT VBG Lactate Sodium Potassium Chloride Carbon Dioxide Anion Gap BUN Creatinine Est GFR (CKD-EPI 2020) Glucose Calcium Magnesium Total Bilirubin Conjugated Bilirubin AST ALT Alkaline Phosphatase Troponin I C-Reactive Protein Total Protein Albumin Lipase Cancelled Procalcitonin TSH Urine Color Urine Clarity Urine pH Ur Specific Carson Urine Protein Urine Ketones Urine Blood Urine Nitrite Urine Bilirubin Urine Urobilinogen Ur Leukocyte Esterase Urine RBC Urine WBC Ur Epithelial Cells Urine Crystals Urine Bacteria Urine Casts Urine Mucus Ur Culture Indicated? Urine Glucose Stl C.difficile Tox PCR COVID-19 Source Nasopharynx SARS-CoV-2 (PCR) Negative Influenza Type A (PCR) Negative Influenza Type B (PCR) Negative RSV (PCR) Negative Add-On Test Request 12/24/22 12/24/22 12/24/22 13:00 13:00 13:00 WBC RBC Hgb Hct MCV MCH MCHC RDW Plt Count MPV Immature Gran % Neutrophils % Band Neutrophils % Lymphocytes % Monocytes % Eosinophils % Basophils % Nucleated RBC % Absolute Neutrophils Absolute Lymphocytes Absolute Monocytes Absolute Eosinophils Absolute Basophils RBC Morphology Polychromasia Hypochromasia Anisocytosis PT INR APTT VBG Lactate 3.4 H* Sodium 144 Potassium 2.2 L* Chloride 115 H Carbon Dioxide 14.1 L Anion Gap 14.9 H BUN 18 Creatinine 1.5 H Est GFR (CKD-EPI 2020) 39.16 Glucose 143 H Calcium 5.7 L* Magnesium 0.8 L Total Bilirubin 0.2 Conjugated Bilirubin AST 8 L ALT < 6 L Alkaline Phosphatase 37 L Troponin I < 50 C-Reactive Protein Total Protein 4.4 L Albumin 1.4 L Lipase 11 L Procalcitonin TSH 1.15 Cancelled Urine Color Urine Clarity Urine pH Ur Specific Carson Urine Protein Urine Ketones Urine Blood Urine Nitrite Urine Bilirubin Urine Urobilinogen Ur Leukocyte Esterase Urine RBC Urine WBC Ur Epithelial Cells Urine Crystals Urine Bacteria Urine Casts Urine Mucus Ur Culture Indicated? Urine Glucose Stl C.difficile Tox PCR COVID-19 Source SARS-CoV-2 (PCR) Influenza Type A (PCR) Influenza Type B (PCR) RSV (PCR) Add-On Test Request 12/24/22 12/24/22 12/24/22 13:00 13:00 15:35 WBC RBC Hgb Hct MCV MCH MCHC RDW Plt Count MPV Immature Gran % Neutrophils % Band Neutrophils % Lymphocytes % Monocytes % Eosinophils % Basophils % Nucleated RBC % Absolute Neutrophils Absolute Lymphocytes Absolute Monocytes Absolute Eosinophils Absolute Basophils RBC Morphology Polychromasia Hypochromasia Anisocytosis PT INR APTT VBG Lactate Sodium Potassium Chloride Carbon Dioxide Anion Gap BUN Creatinine Est GFR (CKD-EPI 2020) Glucose Calcium Magnesium Total Bilirubin Conjugated Bilirubin AST ALT Alkaline Phosphatase Troponin I C-Reactive Protein 24.09 H Total Protein Albumin Lipase Procalcitonin 6.2 TSH Urine Color Urine Clarity Urine pH Ur Specific Carson Urine Protein Urine Ketones Urine Blood Urine Nitrite Urine Bilirubin Urine Urobilinogen Ur Leukocyte Esterase Urine RBC Urine WBC Ur Epithelial Cells Urine Crystals Urine Bacteria Urine Casts Urine Mucus Ur Culture Indicated? Urine Glucose Stl C.difficile Tox PCR Negative COVID-19 Source SARS-CoV-2 (PCR) Influenza Type A (PCR) Influenza Type B (PCR) RSV (PCR) Add-On Test Request 12/24/22 12/24/22 12/24/22 15:45 17:45 17:55 WBC RBC Hgb Hct MCV MCH MCHC RDW Plt Count MPV Immature Gran % Neutrophils % Band Neutrophils % Lymphocytes % Monocytes % Eosinophils % Basophils % Nucleated RBC % Absolute Neutrophils Absolute Lymphocytes Absolute Monocytes Absolute Eosinophils Absolute Basophils RBC Morphology Polychromasia Hypochromasia Anisocytosis PT 11.5 H INR 1.1 APTT 31.4 VBG Lactate 4.7 H* Sodium Potassium Chloride Carbon Dioxide Anion Gap BUN Creatinine Est GFR (CKD-EPI 2020) Glucose Calcium Magnesium Total Bilirubin Conjugated Bilirubin AST ALT Alkaline Phosphatase Troponin I C-Reactive Protein Total Protein Albumin Lipase Procalcitonin TSH Urine Color Urine Clarity Urine pH Ur Specific Carson Urine Protein Urine Ketones Urine Blood Urine Nitrite Urine Bilirubin Urine Urobilinogen Ur Leukocyte Esterase Urine RBC Urine WBC Ur Epithelial Cells Urine Crystals Urine Bacteria Urine Casts Urine Mucus Ur Culture Indicated? Urine Glucose Stl C.difficile Tox PCR COVID-19 Source SARS-CoV-2 (PCR) Influenza Type A (PCR) Influenza Type B (PCR) RSV (PCR) Add-On Test Request DONE 12/24/22 12/24/22 12/25/22 19:30 23:22 01:03 WBC RBC Hgb Hct MCV MCH MCHC RDW Plt Count MPV Immature Gran % Neutrophils % Band Neutrophils % Lymphocytes % Monocytes % Eosinophils % Basophils % Nucleated RBC % Absolute Neutrophils Absolute Lymphocytes Absolute Monocytes Absolute Eosinophils Absolute Basophils RBC Morphology Polychromasia Hypochromasia Anisocytosis PT INR APTT 129.3 H* VBG Lactate 5.4 H* Sodium Potassium Chloride Carbon Dioxide Anion Gap BUN Creatinine Est GFR (CKD-EPI 2020) Glucose Calcium Magnesium Total Bilirubin Conjugated Bilirubin AST ALT Alkaline Phosphatase Troponin I C-Reactive Protein Total Protein Albumin Lipase Procalcitonin TSH Urine Color Yellow Urine Clarity Sl Cloudy Urine pH 6.0 Ur Specific Carson 1.020 Urine Protein 100 H Urine Ketones Negative Urine Blood Moderate H Urine Nitrite Negative Urine Bilirubin Negative Urine Urobilinogen 0.2 Ur Leukocyte Esterase Trace H Urine RBC 5-10 H Urine WBC >50 H Ur Epithelial Cells Rare Urine Crystals Negative Urine Bacteria Moderate Urine Casts 3-5 Fine Granular Urine Mucus Negative Ur Culture Indicated? Yes Urine Glucose Negative Stl C.difficile Tox PCR COVID-19 Source SARS-CoV-2 (PCR) Influenza Type A (PCR) Influenza Type B (PCR) RSV (PCR) Add-On Test Request 12/25/22 12/25/22 06:00 06:00 WBC 23.45 H RBC 3.44 L Hgb 8.9 L D Hct 29.7 L MCV 86 MCH 25.9 L MCHC 30.0 L RDW 24.0 H Plt Count 226 MPV 9.2 Immature Gran % See Differential Neutrophils % 90.0 Band Neutrophils % 3 Lymphocytes % 3.0 Monocytes % 2.0 Eosinophils % 1.0 Basophils % 1.0 Nucleated RBC % 0.0 Absolute Neutrophils 21.81 H Absolute Lymphocytes 0.70 L Absolute Monocytes 0.47 Absolute Eosinophils 0.23 Absolute Basophils 0.23 H RBC Morphology See Below Polychromasia Present Hypochromasia 2+ Anisocytosis 2+ PT INR APTT VBG Lactate Sodium 136 Potassium 4.1 D Chloride 105 Carbon Dioxide 20.1 L Anion Gap 10.9 BUN 24 H Creatinine 1.3 H Est GFR (CKD-EPI 2020) 46.49 Glucose 300 H Calcium 9.0 Magnesium 2.5 H Total Bilirubin 0.3 Conjugated Bilirubin 0.1 AST 15 ALT 6 L Alkaline Phosphatase 81 Troponin I C-Reactive Protein > 25.00 H Total Protein 6.9 Albumin 2.2 L Lipase Procalcitonin TSH Urine Color Urine Clarity Urine pH Ur Specific Carson Urine Protein Urine Ketones Urine Blood Urine Nitrite Urine Bilirubin Urine Urobilinogen Ur Leukocyte Esterase Urine RBC Urine WBC Ur Epithelial Cells Urine Crystals Urine Bacteria Urine Casts Urine Mucus Ur Culture Indicated? Urine Glucose Stl C.difficile Tox PCR COVID-19 Source SARS-CoV-2 (PCR) Influenza Type A (PCR) Influenza Type B (PCR) RSV (PCR) Add-On Test Request Imaging Additional studies: INDINGS: CHEST: PULMONARY ARTERIES: Less than optimal opacification of the most peripheral pulmonary arteries.? However, no evidence of central pulmonary emboli. LUNGS: There is mild infiltrate in the posterior basal segment of the right lower lobe.? No pleural effusion on either side.? No significant focal findings in the opposite-left lung..? MEDIASTINUM: There is no hilar nor mediastinal adenopathy. Visualized thyroid unremarkable. CARDIAC: Heart size is normal.? There is no pericardial effusion.? There is no significant shift of the interventricular septum.Caliber of thoracic aorta normal.? No dissection.? There is independent origin of the left vertebral artery off of the aortic arch. OSSEOUS: No significant osseous lesions.No fractures.? Fusion hardware noted in the lower cervical spine.. ABDOMEN: Small amount of fluid in the right pericolic gutter again noted, unchanged, this subjacent to the inferior aspect of the right hepatic lobe. LIVER: There are no focal hepatic lesions nor dilatation of intrahepatic ducts.? GALLBLADDER/BILIARY: No obvious new gallbladder pathology.? CBD is not dilated. PANCREAS: No evidence of pancreatic mass nor dilatation of the pancreatic duct.? SPLEEN: Spleen is not enlarged. There are no intrasplenic lesions.? Splenic and portal veins are patent. ADRENALS: There are no significant adrenal masses. KIDNEYS:Left kidney unremarkable.? The right-sided ureteral stent is been removed.? Mild streaking around the right kidney again noted.? Tiny 1 millimeter calculus in the right kidney noted.? There are no obvious radiopaque calculi seen along the course of the right ureter.? No solid renal masses.? No prominent cysts.. ABDOMINAL AORTA: Abdominal aorta is not enlarged. LYMPH NODES: There is no retroperitoneal or para-aortic adenopathy. ABDOMINAL WALL/GI: No evidence of significant anterior abdominal wall hernia.? Redundant sigmoid.? No obvious bowel obstruction.? No diverticulitis. PELVIS:? LYMPH NODES: There is no intrapelvic nor inguinal adenopathy. GI: No evidence of appendicitis.No evidence of sigmoid diverticulitis. URINARY BLADDER: There is a Martinez catheter noted but this is possibly not in the urinary bladder but at the cervix level.? The bladder is collapsed. REPRODUCTIVE: Uterus is enlarged with multiple fibroids. OSSEOUS: No significant osseous lesions.? No fractures evident IMPRESSION: 1. Mild infiltrate right lung base.? No pleural effusions.? No obvious central pulmonary emboli but the most peripheral vessels of the pulmonary arterial tree are difficult to assess.? Cannot exclude small peripheral emboli. 2. Previously present right ureteral stent has been removed.No right-sided obstruction at this time. 3. Martinez catheter is noted but it may be at the level of the cervix and not in the urinary bladder.? Recommend assessing function and possible repositioning if necessary.? The urinary bladder is not distended. 4. Enlarged fibroid uterus again noted. 5.
--- NOTE | 2022-12-25 08:00 | DI.US_ITS ---
APPROVED REPORT EXAM: Comprehensive 2D, Doppler, and color-flow Echocardiogram Patient Location: In-Patient Room/Bed: [facility]561 Information Assurance Officer: Gaviota Wilcox RDCS (AE) Indications: Limited follow up exam, PE, Pulmonary Hypertension, IDDM Other Information Study Quality: Adequate Conclusion Normal left ventricular wall thickness and chamber size. Estimated ejection fraction is 55% Right ventricle is grossly normal in size and systolic function There is trace to mild tricuspid regurgitation. Estimated right ventricular systolic pressure is 28 mmHg Wall motion Left Ventricle The left ventricular systolic function is normal. The left ventricular ejection fraction is within th e normal range. There is normal LV segmental wall motion. LVEF is 55%. Right Ventricle Right ventricle is grossly normal in size. The right ventricular systolic function is normal. The RV SP is 27.9mmHg. Tricuspid Valve The tricuspid valve is normal in structure. Trace to mild tricuspid regurgitation. Great Vessels IVC is normal in size and collapses >50% with inspiration. Pericardium There is no pericardial effusion. 2D Dimensions LVEF (Roberts's) 54.92 % F: 54 - 74 LV Vol A2C d MOD 91.0 mL LV Volume 68.13 mL F: 46 - 106 LV Vol A4C d MOD 76.8 mL LV Volume Index 35.67 mL/m2 F: 29 - 61 LA vol/ BSA A2C s A-L 22.0 mL/m2 LV Vol Biplane MOD 89.4 mL LA vol/ BSA A4C s A-L 10.6 mL/m2 LA Vol/ BSA Biplane s A-L 16.5 mL/m2 LA Area A4C s MOD 9.49 cm2 LA Area A2C s MOD 14.78 cm2 LV EF A4C MOD 55.4 % LV EF A2C MOD 55.9 % LV EF Biplane MOD 54.9 % SV 49.07 mL SV Index 25.75 mL/m2 Tricuspid Valve TR Peak Grad 24.8 mmHg TR Vmax 2.49 m/s RA Pressure 3.00 mmHg RVSP (TR) 27.9 mmHg
--- NOTE | 2022-12-25 08:00 | DI.US_ITS ---
Exam(s) US EXTREMITY VENOUS BI EXAM: US EXTREMITY VENOUS BI CLINICAL HISTORY: PE, concern for DVT TECHNIQUE: Grayscale, color, and doppler imaging of the deep venous system of both lower extremities was performed. COMPARISON: None. FINDINGS: There is no evidence of DVT in the right lower extremity. The left side was difficult to assess accurately due to the presence of a femoral vein central line w ith significant bandage material in the thigh. The left common femoral vein, visualize femoral vein, and saphenofemoral junction are patent by color flow. The femoral vein in the mid and distal thigh was apparently not able to be visualized. The p opliteal vein appeared patent and compressible. The peroneal and posterior tibial veins in the calf were not able to be visualized. IMPRESSION: 1. No ultrasound evidence of DVT in the right lower extremity. 2. Suboptimal study of the left lower extremity, as described above. DATA REPOSITORY:
[2022-12-25 08:51] LABS: PTT Activated 68.7 sec (21.5-31.9)
[2022-12-25] MEDS: Ondansetron 4 MG/2 ML VIAL IVP (09:12)
[2022-12-25] MEDS: Gabapentin 600 MG TAB 1200 MG PO ×2 (09:29→21:30)
[2022-12-25] MEDS: lamoTRIgine 25 MG TAB 50 MG PO (09:30)
[2022-12-25] MEDS: Simethicone 80 MG CHEW PO ×4 (09:30→21:30)
[2022-12-25] MEDS: LORazepam 0.5 MG TAB PO ×2 (09:31→21:30)
[2022-12-25] MEDS: Carbidopa 25/Levodopa 100 TAB PO ×4 (09:31→21:30)
[2022-12-25] MEDS: buPROPion-XL 150 MG TABCR PO (09:31)
[2022-12-25] MEDS: Vitamins B Comp w/C TAB 1 TAB PO (09:32)
[2022-12-25] MEDS: traZODone 50 MG TAB 25 MG PO ×2 (09:32→21:29)
[2022-12-25] MEDS: Levothyroxine 100 MCG TAB PO (09:32)
[2022-12-25] MEDS: Omeprazole 20 MG CAPCR PO (09:33)
[2022-12-25] MEDS: Aspirin E.C. 81 MG TABEC PO (09:33)
[2022-12-25] MEDS: Loratidine 10 MG TAB PO (09:33)
[2022-12-25] MEDS: Fluticasone NASAL SPRAY 16 GM BTL NS ×2 (09:47→21:28)
[2022-12-25] MEDS: Diclofenac 1% Gel 100 GM TUBE TP ×2 (09:50→21:27)
--- NOTE | 2022-12-25 09:53 | PDOC.CMIN ---
- If Service Date Differs Date of service: 12/25/22 Time of Service: 09:53 Care Management Initial Assess REASON FOR HOSPITALIZATION:: Septic shock, acute PE, diarrhea, electrolyte abnormality PAST MEDICAL HISTORY/PAST SURGICAL HISTORY:: All Active Problems. Septic shock (Acute). Hypotension (Acute). Pulmonary embolism (Chronic). Hypokalemia (Acute). Hypocalcemia (Acute). Hypomagnesemia (Acute). Discharge planning issues (Acute). Hypomagnesemia (Acute). Hypocalcemia (Acute). DALTON (acute kidney injury) (Acute). Metabolic acidosis (Acute). Hypokalemia (Acute). Pulmonary embolism (Acute). Diarrhea (Acute). Septic shock (Acute). Abdominal bloating (Acute). Abdominal pain (Chronic). Pyelonephritis (Acute). Microcytic anemia (Acute). Emphysematous pyelonephritis (Acute). Pyuria due to bacterial urinary tract infection (Acute). Hydronephrosis of right kidney (Acute). Gallstones (Acute). Arthritis of left shoulder region (Acute). Cough (Acute). Ileus (Acute). Tardive dyskinesia (Acute). Parkinsonism (Acute). History of stroke (Acute). Chronic chest pain (Chronic). Constipation (Chronic). Bipolar 1 disorder (Chronic). Bipolar affective disorder, current episode depressed (Acute). rule out bipolar disorder reported by patient. Antiepileptics maybe preventing manic episode. Major depressive disorder, recurrent, severe with psychotic features (Acute). Current presentation is depression. She may have bipolar affective disorder. Ambulatory dysfunction (Chronic). Hemiparesis affecting right side as late effect of cerebrovascular accident (Acute). Dysphagia as late effect of cerebrovascular accident (CVA) (Chronic). Dysarthria as late effect of cerebrovascular accident (CVA) (Acute). Aphasia as late effect of cerebrovascular accident (Acute). Neck pain (Acute). Autoimmune disorder (Acute). Medical History. DALTON (acute kidney injury). Anxiety. Bipolar 1 disorder. Cholelithiasis with acute cholecystitis. s/p cholecystostomy and stone extraction in 2014 ([facility]), tube now pulled. Gallbladder still in place. Chronic adrenal insufficiency. CORE PASTER vasculitis. Complicated UTI (urinary tract infection). Diverticulosis. Hemiparesis affecting right side as late effect of cerebrovascular accident (CVA). Hepatitis C. History of multiple cerebrovascular accidents (CVAs). Hypertension. Hypothyroidism. IDDM (insulin dependent diabetes mellitus). Left rotator cuff tear. Lumbar disc disease. Nephrolithiasis. Neurogenic bladder. Obesity (BMI 30.0-34.9). Palliative care encounter. Septic shock. Staghorn calculus. Static encephalopathy. Steroid dependent. Uterine mass. likely a fibroid. UTI (urinary tract infection). Surgical History. Abnormal cholangiogram. H/O cervical spine surgery. H/O foot surgery. H/O wrist surgery. History of extraction of renal calculus. 12/13/2018 - [facility]. History of hip surgery. right. History of lumbosacral spine surgery. S/P cystoscopy with ureteral stent placement. RUST 11/2018. Status post creation of urethral sling by suprapubic approach PREVIOUS FUNCTIONAL STATUS/SOCIAL/FAMILY SUPPORTS:: Currently resides at [facility] as a long-term resident. Patient states that she has been dependent in all functional mobility and transfers as well as self-care since her stroke resulting in right hemiplegia upper and lower extremity. Patient able to communicate without limitations. Indicates that she utilizes a Ashley lift at baseline however has essentially been in bed for the last 4 months secondary to breathing limitations both in supine and upright sitting positions. Prior to 4 months ago she was being acquired into a wheelchair at correction facility. States she requires assistance with functional transfers and has not ambulated in multiple years. Does require some assist for self-care activities. States the nursing care facility does assist with pressure relief techniques. CURRENT FUNCTIONAL STATUS:: Ginger was sitting up in bed when CM met with her. She stated that she is not feeling well today, and feels very weak. She asked CM for assistance to call her father. CM located his phone number in her chart and dialed it for her. Once she is medically cleared, Ginger will return to the [facility], where she resides. CM will continue to follow. ADVANCE DIRECTIVES:: COLST on file Has patient been provided with info about the portal/API?: Yes Did the patient sign up for the portal?: No CODE STATUS:: Full Code INSURANCE COVERAGE / FINANCIAL ISSUES:: [facility] CURRENT HOME/COMMUNITY SERVICES/EQUIPMENT:: Resident of rust PRIMARY CARE PHYSICIAN:: Agueda Bingham POTENTIAL DISCHARGE NEEDS:: Coordinated return to the [facility]. PATIENT/FAMILY EDUCATION NEEDS:: Review discharge instructions and limitations, discussion of self care needs including ask me three. ANTICIPATED BARRIERS TO DISCHARGE:: None identified TRANSPORTATION:: EMS PLAN:: Ginger will return to the [facility] when medically cleared. She will likely transport via EMS, coordinated by CM. She will follow up with facility providers and discharge plan of care. CM will continue to follow.
[2022-12-25] MEDS: Norepinephrine in D5W 8 MG/250 ML BAG 22.53 MG IV ×2 (10:02→10:33)
[2022-12-25] MEDS: QUEtiapine 100 MG TAB PO ×2 (10:06→21:30)
--- NOTE | 2022-12-25 11:49 | W.INDIABCONS ---
Date of service: 12/25/22 Time of Service: 11:49 Diabetes Inpatient Consult Reason for Visit: dm2 DESCRIPTION/ASSESSMENT: Ginger was admitted with septic shock, acute PE with hx of CVA, dysphagia, DM2, chronic constipation. BMI indicates overweight status- stable at baseline. Diet advanced to clears today. Most recent A1C (12/05/22) at target (6.3%). Home Dm meds: meal time insulin and metformin. Diabetes education not needed at this admission. Will be available prn. Time Spent in Nutritional Counseling and Treatment: 0
--- NOTE | 2022-12-25 11:50 | DI.CT_ITS ---
Exam(s) CT HEAD WO EXAM: CT HEAD WO CLINICAL HISTORY: headache on heparin gtt (started before heparin gt. TECHNIQUE: Imaging Protocol: Axial computed tomography images with coronal and sagittal reformatted images were created and reviewed COMPARISON: CT CT BRAIN NECK CTA from 03/30/2020 FINDINGS: Images blurred by motion artifact. There are no obvious skull fractures. There is no obvious fluid in the visualized paranasal sinuses. There is no evidence of intracranial hemorrhage, new mass effect, or shift of midline structures. Th ere are no extra-axial fluid collections. The ventricles are unchanged in size and there is no blood within the ventricular system nor within the basal cisterns. Septum cavum pellucidum again noted. Periventricular hypodensity again noted consistent with chronic small vessel disease. There is also asymmetric hypodensity again noted in the right frontal white matter, unchanged, and related to prior ischemic event. There is also lacunar infarct in the left side of the alexandr again noted. IMPRESSION: Chronic small-vessel white matter ischemic changes as well as evidence of prior right-sided nonacute infarct, unchanged from prior study of March 2020. No evidence of intracranial hemorrhage nor other obvious acute intracranial finding. If clinically indicated follow-up MRI can be performed. RADIATION DOSE DELIVERED: 667.86mGy.cm Total DLP DATA REPOSITORY: All CT scans at this facility are submitted to the National Radiology Data Registry (NRDR) Dose Index Registry (DIR) with the [employer] (ACR). RADIATION OPTIMIZATION: All CT scans at this facility use at least one of these dose optimization te chniques: automated exposure control; mA and/or kV adjustment per patient size (includes targeted exa ms where dose is matched to clinical indication); or iterative reconstruction.
[2022-12-25] MEDS: Hydrocortisone 10 MG TAB 50 MG PO ×2 (12:55→18:12)
--- NOTE | 2022-12-25 13:50 | PGE_ITS ---
Date of Service Date of service: 12/25/22 Time of Service: 09:45 Assessment and Plan Assessment and plan (1) Septic shock: Status: Acute Assessment and plan: Source still unclear, but I suspect that this is related to her GI process given the distention of her bowel on imaging and GI symptoms. Will discuss with [facility]. Cdiff negative. Remainder of stool studies is pending. Blood cultures pending UA with trace leucocyte esterase - I am not convinced that this is the source. Continue empiric vancomycin/cefepime. Lactate normalized. Wean pressors as tolerated. IVF to match I/Os. C Continue stress dose steroids given h/o adrenal insufficiency documented in the chart. (2) Diarrhea: Status: Acute Assessment and plan: As above. Will discuss with [facility]. Await stools studies (3) Pulmonary embolism: Status: Acute Assessment and plan: This is not confirmed but is suspected. There is no evidence of R-sided failure on echo. Venous dopplers are pending. Given the size of this suspected finding on CT, doubt that it would be the cause of the hemodynamic instability. Continue heparin gtt for now. (4) Hypokalemia: Status: Resolved Assessment and plan: Recheck in am (5) Metabolic acidosis: Status: Acute Assessment and plan: In setting of septic shocks/lactic acidosis, DALTON. Improved. Lactate normalized. Continue to treat infection. Euvolemic at this time. (6) Hypocalcemia: Status: Resolved Assessment and plan: Recheck in am (7) Hypomagnesemia: Status: Resolved Assessment and plan: Recheck in am (8) DALTON (acute kidney injury): Status: Acute Assessment and plan: Slightly better. Match I/O's with IVF (no MIVF). Continue to treat sepsis (9) IDDM (insulin dependent diabetes mellitus): Assessment and plan: Add long acting insulin (10) Discharge planning issues: Status: Acute Assessment and plan: Full code per my conversation with the patient. Keep in ICU. Palliative care consulted. discussed with Dr Cortez. Total Critical Care Time 60 minutes. Subjective Subjective Interval history since last seen: Ms Barrera does not feel better. She continues to feel nauseated but is interested in eating. She denies dizziness, endorses a headache (started since being at the hospital), denies chest pain, endorses shortness of breath on trying to take a deep breath (thinks her abdomen is stopping her from inhalation). Denies vomiting. Stool described as liquid by nursing. Exam Narrative Exam Narrative: General: Weak-appearing female who actually looks quite a bit better, on RA while laying flat, no dyspnea/tachypnea, A&Ox3, dysarthria (chronic) HEENT: EOMI, MMM Cardiovascular: RRR, no m/r/g Lungs: diffuse rales, expiratory wheezing B Gastrointestinal: Distended, tender RLQ Extremities: no edema, trace pedal pulses Objective Last Vital Signs Temp 36.4 C L 12/25/22 08:54 Pulse 90 12/25/22 12:16 Resp 14 12/25/22 11:33 BP 104/60 12/25/22 12:16 Pulse Ox 97 12/25/22 12:16 Laboratory Results - last 24 hr 12/24/22 12/24/22 12/24/22 13:00 13:00 15:35 WBC RBC Hgb Hct MCV MCH MCHC RDW Plt Count MPV Immature Gran % Neutrophils % Band Neutrophils % Lymphocytes % Monocytes % Eosinophils % Basophils % Nucleated RBC % Absolute Neutrophils Absolute Lymphocytes Absolute Monocytes Absolute Eosinophils Absolute Basophils RBC Morphology Polychromasia Hypochromasia Anisocytosis PT INR APTT VBG Lactate Sodium Potassium Chloride Carbon Dioxide Anion Gap BUN Creatinine Est GFR (CKD-EPI 2020) Glucose Calcium Magnesium Total Bilirubin Conjugated Bilirubin AST ALT Alkaline Phosphatase C-Reactive Protein 24.09 H Total Protein Albumin Procalcitonin 6.2 Urine Color Urine Clarity Urine pH Ur Specific Cameron Urine Protein Urine Ketones Urine Blood Urine Nitrite Urine Bilirubin Urine Urobilinogen Ur Leukocyte Esterase Urine RBC Urine WBC Ur Epithelial Cells Urine Crystals Urine Bacteria Urine Casts Urine Mucus Ur Culture Indicated? Urine Glucose Stl C.difficile Tox PCR Negative Add-On Test Request 12/24/22 12/24/22 12/24/22 15:45 17:45 17:55 WBC RBC Hgb Hct MCV MCH MCHC RDW Plt Count MPV Immature Gran % Neutrophils % Band Neutrophils % Lymphocytes % Monocytes % Eosinophils % Basophils % Nucleated RBC % Absolute Neutrophils Absolute Lymphocytes Absolute Monocytes Absolute Eosinophils Absolute Basophils RBC Morphology Polychromasia Hypochromasia Anisocytosis PT 11.5 H INR 1.1 APTT 31.4 VBG Lactate 4.7 H* Sodium Potassium Chloride Carbon Dioxide Anion Gap BUN Creatinine Est GFR (CKD-EPI 2020) Glucose Calcium Magnesium Total Bilirubin Conjugated Bilirubin AST ALT Alkaline Phosphatase C-Reactive Protein Total Protein Albumin Procalcitonin Urine Color Urine Clarity Urine pH Ur Specific Cameron Urine Protein Urine Ketones Urine Blood Urine Nitrite Urine Bilirubin Urine Urobilinogen Ur Leukocyte Esterase Urine RBC Urine WBC Ur Epithelial Cells Urine Crystals Urine Bacteria Urine Casts Urine Mucus Ur Culture Indicated? Urine Glucose Stl C.difficile Tox PCR Add-On Test Request DONE 12/24/22 12/24/22 12/25/22 19:30 23:22 01:03 WBC RBC Hgb Hct MCV MCH MCHC RDW Plt Count MPV Immature Gran % Neutrophils % Band Neutrophils % Lymphocytes % Monocytes % Eosinophils % Basophils % Nucleated RBC % Absolute Neutrophils Absolute Lymphocytes Absolute Monocytes Absolute Eosinophils Absolute Basophils RBC Morphology Polychromasia Hypochromasia Anisocytosis PT INR APTT 129.3 H* VBG Lactate 5.4 H* Sodium Potassium Chloride Carbon Dioxide Anion Gap BUN Creatinine Est GFR (CKD-EPI 2020) Glucose Calcium Magnesium Total Bilirubin Conjugated Bilirubin AST ALT Alkaline Phosphatase C-Reactive Protein Total Protein Albumin Procalcitonin Urine Color Yellow Urine Clarity Sl Cloudy Urine pH 6.0 Ur Specific Cameron 1.020 Urine Protein 100 H Urine Ketones Negative Urine Blood Moderate H Urine Nitrite Negative Urine Bilirubin Negative Urine Urobilinogen 0.2 Ur Leukocyte Esterase Trace H Urine RBC 5-10 H Urine WBC >50 H Ur Epithelial Cells Rare Urine Crystals Negative Urine Bacteria Moderate Urine Casts 3-5 Fine Granular Urine Mucus Negative Ur Culture Indicated? Yes Urine Glucose Negative Stl C.difficile Tox PCR Add-On Test Request 12/25/22 12/25/22 12/25/22 06:00 06:00 06:00 WBC 23.45 H RBC 3.44 L Hgb 8.9 L D Hct 29.7 L MCV 86 MCH 25.9 L MCHC 30.0 L RDW 24.0 H Plt Count 226 MPV 9.2 Immature Gran % See Differential Neutrophils % 90.0 Band Neutrophils % 3 Lymphocytes % 3.0 Monocytes % 2.0 Eosinophils % 1.0 Basophils % 1.0 Nucleated RBC % 0.0 Absolute Neutrophils 21.81 H Absolute Lymphocytes 0.70 L Absolute Monocytes 0.47 Absolute Eosinophils 0.23 Absolute Basophils 0.23 H RBC Morphology See Below Polychromasia Present Hypochromasia 2+ Anisocytosis 2+ PT INR APTT Cancelled VBG Lactate Sodium 136 Potassium 4.1 D Chloride 105 Carbon Dioxide 20.1 L Anion Gap 10.9 BUN 24 H Creatinine 1.3 H Est GFR (CKD-EPI 2020) 46.49 Glucose 300 H Calcium 9.0 Magnesium 2.5 H Total Bilirubin 0.3 Conjugated Bilirubin 0.1 AST 15 ALT 6 L Alkaline Phosphatase 81 C-Reactive Protein > 25.00 H Total Protein 6.9 Albumin 2.2 L Procalcitonin Urine Color Urine Clarity Urine pH Ur Specific Cameron Urine Protein Urine Ketones Urine Blood Urine Nitrite Urine Bilirubin Urine Urobilinogen Ur Leukocyte Esterase Urine RBC Urine WBC Ur Epithelial Cells Urine Crystals Urine Bacteria Urine Casts Urine Mucus Ur Culture Indicated? Urine Glucose Stl C.difficile Tox PCR Add-On Test Request 12/25/22 12/25/22 08:00 08:00 WBC RBC Hgb Hct MCV MCH MCHC RDW Plt Count MPV Immature Gran % Neutrophils % Band Neutrophils % Lymphocytes % Monocytes % Eosinophils % Basophils % Nucleated RBC % Absolute Neutrophils Absolute Lymphocytes Absolute Monocytes Absolute Eosinophils Absolute Basophils RBC Morphology Polychromasia Hypochromasia Anisocytosis PT INR APTT 68.7 H VBG Lactate 1.0 Sodium Potassium Chloride Carbon Dioxide Anion Gap BUN Creatinine Est GFR (CKD-EPI 2020) Glucose Calcium Magnesium Total Bilirubin Conjugated Bilirubin AST ALT Alkaline Phosphatase C-Reactive Protein Total Protein Albumin Procalcitonin Urine Color Urine Clarity Urine pH Ur Specific Cameron Urine Protein Urine Ketones Urine Blood Urine Nitrite Urine Bilirubin Urine Urobilinogen Ur Leukocyte Esterase Urine RBC Urine WBC Ur Epithelial Cells Urine Crystals Urine Bacteria Urine Casts Urine Mucus Ur Culture Indicated? Urine Glucose Stl C.difficile Tox PCR Add-On Test Request Objective Narrative Objective Narrative: CT head w/o contrast: Chronic small-vessel white matter ischemic changes as well as evidence of prior right-sided nonacute infarct, unchanged from prior study of March 2020. No evidence of intracranial hemorrhage nor other obvious acute intracranial finding. Venous dopplers: read pending Echo: Normal left ventricular wall thickness and chamber size.? Estimated ejection fraction is 55% Right ventricle is grossly normal in size and systolic function There is trace to mild tricuspid regurgitation.? Estimated right ventricular systolic pressure is 28 mmHg Multi-Disciplinary Checklist Lines/Tubes CENTRAL LINE: yes, Central Line Day#: 1 Note: Inserted 12/24/22 - ER ARTERIAL LINE: no STEPHENS: yes, Stephens Day#: 1 Note: Inserted 12/24/22 - ER ENDOTRACHEAL TUBE: no ICU Maintenance GLUCOSE 140-180mg/dL: yes NUTRITION AT GOAL: no, Reason/Intervention: Clear liquid diet initiated PRESSURE ULCER: no RESTRAINTS: no ANTIBIOTICS(if yes, consider Stewardship): Yes Social Issues FAMILY UPDATED: no, Reason/Intervention: attempts made yesterday, voicemail left on Luis Armandosarah Tiradofelipe's phone. PT/OT: no, Reason/Intervention: Not yet clinically appropriate GOALS/DISPOSITION/MOTEL MAID: yes CODE STATUS: Full Prophylaxis DVT PROPHYLAXIS: yes GI PROPHYLAXIS: yes, Time Spent with Patient Time Spent with Patient: >50 minutes Time was spent: preparing to see the patient(eg.review tests), obtaining and/or reviewing separately otained hiistory, ordering medications,tests, procedures, referring, communicating with other health assistant child care teacher, indepentently interpreting results, counseling the patient and care coordination
[2022-12-25] MEDS: QUEtiapine 100 MG TAB 50 MG PO (14:32)
[2022-12-25] MEDS: Calcium Citrate 950 MG TAB PO ×2 (14:32→21:29)
[2022-12-25] MEDS: VANCOMYCIN/WATER (PEG) 1.25 GM/250 ML BAG IVPB (14:33)
[2022-12-25] MEDS: Lidocaine 5% Patch 1 PATCH TP (16:00)
[2022-12-25 17:04] LABS: PTT Activated 58.6 sec (21.5-31.9)
[2022-12-25] MEDS: traMADol 50 MG TAB PO ×2 (18:11→22:53)
[2022-12-25] MEDS: Acetaminophen 325 MG TAB PO (21:29)
[2022-12-25] MEDS: rOPINIRole 0.5 MG TAB PO (21:29)
[2022-12-25] MEDS: Mirtazapine 15 MG TAB PO (21:30)
[2022-12-25] MEDS: Normal Saline 500 ML 30 ML IV (21:46)
[2022-12-25] MEDS: Insulin Glargine 300 UNITS/3 ML PEN 10 UNITS SC (22:47)
[2022-12-25 23:53] LABS: Campylobacter PCR Negative (Negative); Salmonella PCR Negative (Negative); Shiga Toxin PCR Negative (Negative); Shigella/Enteroinvasive Ecoli Negative (Negative)
[2022-12-26] VITALS (46 sets, daily range): BP systolic 88–144; BP diastolic 53–128; PULSE 56–90; RESP 6–22; TEMP 35.8–36.8; O2SAT 80–99
[2022-12-26] MEDS: metroNIDAZOLE 500 MG/100 ML BAG 100 MG IVPB ×4 (02:40→20:42)
[2022-12-26] MEDS: CEFEPIME 1 GM in Normal Saline 50 ML IVPB ×2 (03:46→16:30)
[2022-12-26 06:27] LABS: Abs Immature Grans 0.07 10^3/uL (0.0-0.06); Absolute Basophil Count 0.01 10^3/uL (0.0-0.2); Absolute Lymphocyte Count 0.39 10^3/uL (1.2-3.4); Absolute Monocyte Count 0.33 10^3/uL (0.1-0.8); Absolute Neutrophil Count 8.37 10^3/uL (1.2-6.7); Basophils % 0.1; HCT 26.2 % (36.0-46.0); HGB 7.8 g/dL (11.2-15.7); Immature Grans % 0.8; Lymphocytes % 4.3; MCH 25.7 pg (27.0-33.0); MCHC 29.8 % (32.0-36.0); MCV 86 fL (80-95); MPV 9.3 fL (8.0-11.0); Monocytes % 3.6; Neutrophils % 91.2; Platelet Count 164 10^3/uL (130-400); RBC 3.04 10^6/uL (3.93-5.22); RDW 23.5 % (11.7-14.6); RDW-SD 72.2 fL; WBC 9.17 10^3/uL (4.4-10.8)
[2022-12-26 06:42] LABS: PTT Activated 50.1 sec (21.5-31.9)
[2022-12-26 07:00] LABS: Anion Gap 9.1 mmol/L (3-11); BUN 16 mg/dL (7-18); C-Reactive Protein 22.64 mg/dL (0.0-0.3); CO2 21.9 mmol/L (21.0-32.0); CREATININE 0.8 mg/dL (0.55-1.02); Calcium 9.1 mg/dL (8.5-10.1); Chloride 108 mmol/L (98-107); Estimated GFR 83.26 (mL/min/1.73m2); Glucose 245 mg/dL (74-106); Magnesium 2.1 mg/dL (1.8-2.4); Potassium 3.3 mmol/L (3.5-5.1); Sodium 139 mmol/L (136-145)
--- NOTE | 2022-12-26 07:01 | PUCC_ITS ---
General Date of Service Date of service: 12/26/22 Time of Service: 07:01 Reason for Admission to ICU: Septic Shock Assessment and Plan Assessment and plan (1) Septic shock: Status: Acute (2) Hypokalemia: Status: Acute (3) DALTON (acute kidney injury): Status: Acute (4) Hypocalcemia: Status: Resolved (5) Hypomagnesemia: Status: Resolved (6) Colon distention: Status: Acute (7) Metabolic acidosis: Status: Acute (8) Parkinsonism: Status: Acute (9) Bipolar 1 disorder: Status: Chronic (10) Ambulatory dysfunction: Status: Chronic (11) Lactic acid acidosis: Status: Acute (12) UTI (urinary tract infection): Status: Acute Assessment and plan: This is a chronically ill 62 yo admitted to the ICU with septic shock. The most likely causes of her sepsis is UTI or the descending colon distention with gut bacteria translocation. She is on cefepime and Flagyl which will cover both etiologies. She has grown GNR in 1/2 blood culture bottles. She is requiring much lower dose Levophed and I am confident we can liberate her from this today. In discussion with Dr. Osorio, we decided to give her an albumin infusion to help with vasopressor liberation. With her GNR bacteremia, it is imperative we remove her femoral central line. We will also see if anesthesia can placed a midline at some point to improve her IV access. Qualifiers: Urinary tract infection type: site unspecified Recommendations Pulmonary: No acute concerns Cardiac: Septic Shock - on minimal Levophed - hydrocort PO for stress dose steroids (IV hydrocortisone shortage) - will give albumin to try and liberate from pressors - target MAP 60-65mmHg Renal: DALTON, resolved - likely due to hypoperfusion - monitor I/O's Electrolyte disturbances - improved from yesterday, getting K today Lactic Acidosis - resolved with resuscitation AGMA and NAGMA - anion gap due to lactic acidosis - has resolved - non anion juan MA due to urine failure - mildly present but improving I&O: Intake & Output 12/23/22 12/24/22 12/25/22 12/26/22 23:59 23:59 23:59 23:59 Intake Total 4220.209 / 4220.209 2110.663 / 2116.296 267.601 / 267.601 Output Total 0 / 300 2915 / 2915 750 / 750 Balance 4220.209 / 3920.209 -804.337 / -798.704 -482.399 / -482.399 Weight 79.3 kg 75.9 kg Daily Fluid Goal:: even GI Nutrition: Colonic distension - could cause gut bacteria translocation resulting in sepsis - OK for diet as tolerated after speech assess patient - on Mylanta - case discussed with [facility] - daily abdominal flat plates to monitor Concern for aspiration - speech to assess Date of Last Bowel Movement: 12/25/22 Infectious Disease: Septic shock - UA concerning for UTI, however could be colonization due to chronic issues - colonic distension could cause gut translocation of bacteria - vasopressor support as above - continue cefepime and metronidazole Gram negative vi bacteremia - on cefepime and Flagyl - await speciation Hematologic: Leukocytosis - due to infection - very elevated neutrophil:lymphocyte ratio Neurologic: H/O bipolar and parkinsonism - home meds being continued Endocrine: h/o diabetes - goal 140-180 - on insulin - may need to be adjusted due to steroids being given Lines: Left femoral CVC - recommend removal today Martinez Prophylaxis: heparin Omeprazole Code Status: Resuscitation Status Full Code Subjective Critical and life-threatening events over the past 24 hours: Ginger has been effectively weaned down on vasopressors. She was still on only 3 mcg this morning. Her neutrophil to lymphocyte ratio is improved and her WBC c ount is much improved. 1/2 bottles of blood culture have grown gram negative rods. Her DALTON is resolved. She feels better today but is asking to eat. She had a swallowing event yesterday so speech has been consulted to further assess. Exam Narrative Exam Narrative: POCUS 12/25/22: All views obtained. Normal LVEF. Normal RV size and function. No pericardial effusion. IVC has >50% collapse with inspiration and is small. Gen: NAD, normal respiratory effort, well-nourished HENT: PERRL, nasal turbinates normal without erythema or inflammation, moist oral mucosa, Mallampati 2, No LAD or JVD Chest: No respiratory distress, normal appearance of chest, clear to auscultation bilaterally, no crackles or wheeze anteriorly. Heart: regular rate and rhythym, no murmurs, rubs or gallops Abdomen: Non-distended, soft, non tender Extremities: No clubbing, edema, cyanosis, rashes Neuro: AAOx3 , non focal Psych: cooperative, appropriate mental affect Most Recent VS/Results Last Vital Signs Temp 36.8 C 12/26/22 04:00 Pulse 77 12/26/22 06:00 Resp 10 L 12/26/22 06:00 BP 109/65 12/26/22 06:00 Pulse Ox 98 12/26/22 06:00 Laboratory Results - last 24 hr 12/25/22 12/25/22 12/25/22 06:00 06:00 08:00 APTT Cancelled VBG Lactate 1.0 Sodium 136 Potassium 4.1 D Chloride 105 Carbon Dioxide 20.1 L Anion Gap 10.9 BUN 24 H Creatinine 1.3 H Est GFR (CKD-EPI 2020) 46.49 Glucose 300 H Calcium 9.0 Magnesium 2.5 H Total Bilirubin 0.3 Conjugated Bilirubin 0.1 AST 15 ALT 6 L Alkaline Phosphatase 81 C-Reactive Protein > 25.00 H Total Protein 6.9 Albumin 2.2 L 12/25/22 12/25/22 12/25/22 08:00 16:20 19:21 APTT 68.7 H 58.6 H Cancelled VBG Lactate Sodium Potassium Chloride Carbon Dioxide Anion Gap BUN Creatinine Est GFR (CKD-EPI 2020) Glucose Calcium Magnesium Total Bilirubin Conjugated Bilirubin AST ALT Alkaline Phosphatase C-Reactive Protein Total Protein Albumin 12/26/22 12/26/22 06:00 06:00 APTT 50.1 H VBG Lactate Sodium 139 Potassium 3.3 L Chloride 108 H Carbon Dioxide 21.9 Anion Gap 9.1 BUN 16 Creatinine 0.8 Est GFR (CKD-EPI 2020) 83.26 Glucose 245 H Calcium 9.1 Magnesium 2.1 Total Bilirubin Conjugated Bilirubin AST ALT Alkaline Phosphatase C-Reactive Protein 22.64 H Total Protein Albumin Review of Systems All systems reviewed & are unremarkable except as noted in HPI and below Time spent with patient Time spent in Critical Care: 40 Time spent in Critical care included: Chart review, Documenting critically ill care, Time at immediate bedside and Discussing critically ill care with other medical staff
[2022-12-26 07:10] LABS: Anisocytosis 2+; Diff Comment RBC Morph Reviewed
[2022-12-26 07:22] LABS: Procalcitonin 2.2 ng/mL
[2022-12-26] MEDS: Insulin Aspart 300 UNITS/3 ML PEN SC ×3 (07:52→18:59)
[2022-12-26] MEDS: POTASSIUM CHLORIDE 20 MEQ/100 ML BAG 50 MEQ IVPB ×2 (08:34→10:00)
[2022-12-26] MEDS: lamoTRIgine 25 MG TAB 50 MG PO (08:35)
[2022-12-26] MEDS: Hydrocortisone 10 MG TAB 50 MG PO ×3 (08:35→18:59)
[2022-12-26] MEDS: buPROPion-XL 150 MG TABCR PO (08:35)
[2022-12-26] MEDS: Calcium Citrate 950 MG TAB PO ×2 (08:36→20:37)
[2022-12-26] MEDS: LORazepam 0.5 MG TAB PO ×2 (08:36→20:40)
[2022-12-26] MEDS: Loratidine 10 MG TAB PO (08:36)
[2022-12-26] MEDS: Carbidopa 25/Levodopa 100 TAB PO ×4 (08:36→20:37)
[2022-12-26] MEDS: Levothyroxine 100 MCG TAB PO (08:36)
[2022-12-26] MEDS: Simethicone 80 MG CHEW PO ×4 (08:36→20:40)
[2022-12-26] MEDS: traZODone 50 MG TAB 25 MG PO ×2 (08:36→20:41)
[2022-12-26] MEDS: Aspirin E.C. 81 MG TABEC PO (08:38)
[2022-12-26] MEDS: QUEtiapine 100 MG TAB PO ×2 (08:38→20:41)
[2022-12-26] MEDS: Omeprazole 20 MG CAPCR PO (08:38)
[2022-12-26] MEDS: Vitamins B Comp w/C TAB 1 TAB PO (08:38)
[2022-12-26] MEDS: Gabapentin 600 MG TAB 1200 MG PO ×2 (08:38→20:39)
[2022-12-26] MEDS: Heparin 5,000 UNITS/ML VIAL 5000 UNITS SC ×2 (08:39→20:40)
[2022-12-26] MEDS: ALBUMIN HUMAN 25 GM/100 ML BTL IVPB ×2 (09:00→09:07)
[2022-12-26] MEDS: traMADol 50 MG TAB PO ×2 (09:18→21:40)
[2022-12-26] MEDS: Lidocaine 1% Pres-Free 5 ML VIAL (11:05)
--- NOTE | 2022-12-26 11:34 | W.ANESVAS ---
Midline Placement Date Performed: 12/26/22 Procedure Time: 11:28 Requesting Provider: Sabi Osorio Procedure Location: Intensive Care Unit Sedation Given (Indicate Dose Given): No Sedation given Patient Mental Status: Awake Sterility: Hand Hygiene, Surgical Cap, Surgical Mask, Sterile Gloves, Sterile Drape/Sheet and Chlorhexidine Laterality: Left Insertion Site: Brachial Midline Device: PowerGlide Pro 18G Catheter Length: 10 cm Midline Procedure Procedure: 1% Lidocaine to skin and subcutaneous tissue with 25g needle and Vessel accessed with catheter over needle Dressing: Tegaderm Applied and Statlock Applied Blood Return: Present Flushes: Easily Ultrasound: Sterile probe cover and gel used Ultrasound Image Saved?: Yes Number of Attempts (See previous attempts in note section): 1 Procedure Tolerated: No Complications Procedure Outcome: Successful Performed By: Pablo Mcadams
--- NOTE | 2022-12-26 12:40 | CMPROGNOTE_ITS ---
- If Service Date Differs Date of service: 12/26/22 Time of Service: 12:40 Care Management Progress Note S/O: Ginger was sitting up in bed when CM met with her. She stated that she is still feeling very weak and tired. She asked CM for a mirror to help herself put on makeup. She also asked to speak to the Vice President Global Advertising Sales. CM contacted Chaplain Ana Lilia, who will plan to visit Ginger and bring her a bible, as requested by Ginger. Ginger stated that she would like to move to a different SNF, but she is concerned about being able to access her monthly SSI check while utilizing her KAD[employer] benefit. CM asked if there was another facility that she would be interested in, and she stated that she would consider [facility]. CM will continue to follow. A: Ginger is a 62 year old female admitted to [facility] on 12/24/22 for septic shock, acute PE, diarrhea, electrolyte abnormality. P: Ginger will return to the [facility] once medically cleared, where she resides. She will transport via EMS, coordinated by [facility]. She will follow up with facility providers and discharge plan of care. CM will continue to follow.
[2022-12-26] MEDS: QUEtiapine 100 MG TAB 50 MG PO (13:23)
[2022-12-26] MEDS: Acetaminophen 325 MG TAB PO (13:30)
--- NOTE | 2022-12-26 13:55 | PGE_ITS ---
Date of Service Date of service: 12/26/22 Time of Service: 09:00 Assessment and Plan Assessment and plan (1) Septic shock: Status: Acute Assessment and plan: With gram negative vi bacteremia. Suspected source: GI. Discussed with [facility]: the patient does not have a history of Ogelvie's, had not had imaging there and had not yet had a colonoscopy, though one was being planned. No new recommendations re abx from them. Will continue cefepime + flagyl for now. Await blood culture results. Repeat blood cultures. Stool studies are negative. UA with trace leucocyte esterase; urine C&S with <10,000 CFU GNR. Lactate normalized. Wean pressors as tolerated. Getting albumin to help get off the pressors. IVF to match I/Os. Continue stress dose steroids given h/o adrenal insufficiency documented in the chart. D/c CVL as soon as possible. (2) Diarrhea: Status: Acute Assessment and plan: As above. (3) Pulmonary embolism: Status: Ruled-out Assessment and plan: This was not a clear finding on CT. Perhaps could have an outpatient VQ scan, but we do not have a strong indication for anticoagulation at this time, especially since the venous dopplers were ne gative and the echo does not show clear signs of R-sided issues. D/c heparin gtt. (4) Hypokalemia: Status: Acute Assessment and plan: Recheck in am (5) Metabolic acidosis: Status: Resolved Assessment and plan: In setting of septic shocks/lactic acidosis, DALTON. Continue to treat infection. Euvolemic at this time. (6) Hypocalcemia: Status: Resolved Assessment and plan: Recheck in am (7) Hypomagnesemia: Status: Resolved Assessment and plan: Recheck in am (8) DALTON (acute kidney injury): Status: Resolved Assessment and plan: Continue to treat infection. Match I/O's with IVF (no MIVF). Monitor labs (9) IDDM (insulin dependent diabetes mellitus): Assessment and plan: Increase long acting insulin. (10) Discharge planning issues: Status: Acute Assessment and plan: Full code. Seen by palliative. Keep in ICU. Discussed with Dr Cortez. Total Critical Care Time 45 minutes. Subjective Subjective Interval history since last seen: Still on norepinephrine this morning. Ginger feels better, but continues to report a RLQ pain. She is wearing makeup this morning - she did it herself. She was noted to be aspirating on the clear liquid diet yesterday and was made NPO. Denies dizziness, headache, chest pain, endorses some shortness of breath at rest in bed, denies n/v. Exam Narrative Exam Narrative: General: Weak-appearing female who is wearing makeup, on RA - no dyspnea/tachypnea, A&Ox3, dysarthria (chronic) HEENT: EOMI, MMM Cardiovascular: RRR, no m/r/g Lungs: expiratory wheezing B Gastrointestinal: Distended, tender RLQ Extremities: no edema, trace pedal pulses Objective Last Vital Signs Temp 35.8 C L 12/26/22 10:00 Pulse 86 12/26/22 10:01 Resp 12 12/26/22 12:00 BP 95/69 L 12/26/22 10:01 Pulse Ox 97 12/26/22 12:00 Laboratory Results - last 24 hr 12/24/22 12/25/22 12/25/22 15:35 16:20 19:21 WBC RBC Hgb Hct MCV MCH MCHC RDW Plt Count MPV Immature Gran % Neutrophils % Lymphocytes % Monocytes % Eosinophils % Basophils % Nucleated RBC % Absolute Neutrophils Absolute Lymphocytes Absolute Monocytes Absolute Eosinophils Absolute Basophils RBC Morphology Anisocytosis APTT 58.6 H Cancelled Sodium Potassium Chloride Carbon Dioxide Anion Gap BUN Creatinine Est GFR (CKD-EPI 2020) Glucose Calcium Magnesium C-Reactive Protein Procalcitonin Stool Campylobacter PCR Negative Stool Salmonella PCR Negative Stool Shigella PCR Negative Shiga Toxin (PCR) Negative 12/26/22 12/26/22 12/26/22 06:00 06:00 06:00 WBC 9.17 RBC 3.04 L Hgb 7.8 L Hct 26.2 L MCV 86 MCH 25.7 L MCHC 29.8 L RDW 23.5 H Plt Count 164 MPV 9.3 Immature Gran % 0.8 Neutrophils % 91.2 Lymphocytes % 4.3 Monocytes % 3.6 Eosinophils % 0.0 Basophils % 0.1 Nucleated RBC % 0.0 Absolute Neutrophils 8.37 H Absolute Lymphocytes 0.39 L Absolute Monocytes 0.33 Absolute Eosinophils 0.00 Absolute Basophils 0.01 RBC Morphology See Below Anisocytosis 2+ APTT Sodium 139 Potassium 3.3 L Chloride 108 H Carbon Dioxide 21.9 Anion Gap 9.1 BUN 16 Creatinine 0.8 Est GFR (CKD-EPI 2020) 83.26 Glucose 245 H Calcium 9.1 Magnesium 2.1 C-Reactive Protein 22.64 H Procalcitonin 2.2 Stool Campylobacter PCR Stool Salmonella PCR Stool Shigella PCR Shiga Toxin (PCR) 12/26/22 06:00 WBC RBC Hgb Hct MCV MCH MCHC RDW Plt Count MPV Immature Gran % Neutrophils % Lymphocytes % Monocytes % Eosinophils % Basophils % Nucleated RBC % Absolute Neutrophils Absolute Lymphocytes Absolute Monocytes Absolute Eosinophils Absolute Basophils RBC Morphology Anisocytosis APTT 50.1 H Sodium Potassium Chloride Carbon Dioxide Anion Gap BUN Creatinine Est GFR (CKD-EPI 2020) Glucose Calcium Magnesium C-Reactive Protein Procalcitonin Stool Campylobacter PCR Stool Salmonella PCR Stool Shigella PCR Shiga Toxin (PCR) Objective Narrative Objective Narrative: CT head w/o contrast: Chronic small-vessel white matter ischemic changes as well as evidence of prior right-sided nonacute infarct, unchanged from prior study of March 2020. No evidence of intracranial hemorrhage nor other obvious acute intracranial finding. If clinically indicated follow-up MRI can be performed. US venous BLEs: 1.? No ultrasound evidence of DVT in the right lower extremity. 2.? Suboptimal study of the left lower extremity, as described above. Multi-Disciplinary Checklist Lines/Tubes CENTRAL LINE: yes, Central Line Day#: 2 ARTERIAL LINE: no STEPHENS: yes, Stephens Day#: 2 ENDOTRACHEAL TUBE: no ICU Maintenance GLUCOSE 140-180mg/dL: no, Reason/Intervention: insulins are getting adjusted NUTRITION AT GOAL: no, Reason/Intervention: awaiting speech therapy PRESSURE ULCER: no RESTRAINTS: no ANTIBIOTICS(if yes, consider Stewardship): Yes Social Issues FAMILY UPDATED: no, Reason/Intervention: voicemail was left on Luis Armando Moe's phone; he did not call me back PT/OT: yes GOALS/DISPOSITION/LEATHER GOODS II ASSEMBLER: yes CODE STATUS: Full Prophylaxis DVT PROPHYLAXIS: yes GI PROPHYLAXIS: yes, Indication: NPO Time Spent with Patient Time Spent with Patient: 35-49 minutes Time was spent: preparing to see the patient(eg.review tests), obtaining and/or reviewing separately otained hiistory, ordering medications,tests, procedures, referring, communicating with other health school childcare attendant, indepentently interpreting results, counseling the patient and care coordination
[2022-12-26] MEDS: Normal Saline 500 ML 30 ML IV (14:12)
--- NOTE | 2022-12-26 14:37 | PDOC.CMPRO ---
- If Service Date Differs Date of service: 12/26/22 Time of Service: 14:37
--- NOTE | 2022-12-26 15:24 | PDOC.STREC ---
Date of service: 12/26/22 Time of Service: 15:24 Speech Therapy Recommendations Report ST Recommendations: DIRECTOR OF MARKETING OPERATIONS Communication / Non-Treatment Note Consult order received; chart reviewed. DIRECTOR OF MARKETING OPERATIONS spoke with patient's RN(s) on ICU unit re: current patient status, reason for consult ie concern for aspiration with thin liquids on evening of 12/25. HPI: Patient is a chronically ill 62 yo female (full code) and resident at the [facility], admitted to [facility] ICU with septic shock after developing abdominal pain (right lower quadrant) x 5 days and vomiting x 2 days; most likely causes of her sepsis being UTI or the descending colon distention with gut bacteria translocation (currently on Cefepime and Flagyl which will cover both etiologies). Per Pulmonology as of 12/26, patient is appropriate for PO diet as tolerated after DIRECTOR OF MARKETING OPERATIONS assessment has been completed. PMHx significant for chronic constipation, as well as h/o chronic abdominal pain, h/o CVA w/ aphasia, IDDM2 Interval History: DIRECTOR OF MARKETING OPERATIONS spoke via phone with both Loli SOLANO and Jake SOLANO 12/26: Pt was upgraded to clear liquid diet, and then as of 12/25 at suppertime (drinking broth from straw, followed by coughing fit and significant change in breath sounds), patient was downgraded to NPO out of concern for aspiration and in context of pmhx including CVA and R hemiparesis. Patient is NPO currently, with exception of pureed solid (applesauce) provided with oral medications (pills). Pt is not demonstrating any coughing with pureed texture, nor has nursing indicated this during her admission; primary concern is thin liquids/liquids in general. RN reports patient has multiple pills, does fine with pureed textures currently, and continues to be afebrile with adequate 02 sats when awake. Unclear of most recent solid and/or liquid diet level at the [facility]; this DIRECTOR OF MARKETING OPERATIONS unable to reach anyone at the [facility] to verify at time of this note. Plan: DIRECTOR OF MARKETING OPERATIONS to return 12/27 for full assessment/screening as appropriate, provide updated recommendations. Current Recommendations: Until DIRECTOR OF MARKETING OPERATIONS is able to fully assess patient at bedside, recommend NPO with continuation of medications (pills) orally with pureed texture (L4), and ensuring patient completes full, thorough oral care with use of her LUE prior to offering single ice chips 1 at a time to ensure adequate oral moisture/comfort. Please provide patient with either assistance/support with oral care as needed. Monica Haider MA [facility]-DIRECTOR OF MARKETING OPERATIONS Speech-Language Pathologist RI#[phone] Coding
--- NOTE | 2022-12-26 16:25 | PHA.REVIEW2 ---
Pharmacy Admission Review - Admission Clinical Review (Last Reviewed 11/28/22 @ 14:36 by Jc Jack MD) Advanced care planning/counseling discussion (Acute) UTI (urinary tract infection) (Acute) Lactic acid acidosis (Acute) Colon distention (Acute) Septic shock (Acute) Hypotension (Acute) Hypokalemia (Acute) Hypocalcemia (Acute) Hypomagnesemia (Acute) Abdominal pain, vomiting, and diarrhea (Acute) Metabolic acidosis (Acute) Discharge planning issues (Acute) Hypokalemia (Acute) Diarrhea (Acute) Septic shock (Acute) Parkinsonism (Acute) naproxen [From Aleve] Allergy (Unknown, Unverified 12/24/22 13:04) Itching Penicillins Allergy (Unknown, Unverified 12/24/22 13:04) Itching propoxyphene Allergy (Unknown, Unverified 12/24/22 13:04) Itching Sulfa (Sulfonamide Antibiotics) Allergy (Unknown, Unverified 12/24/22 13:04) Itching methadone Allergy (Verified 12/24/22 13:04) Resuscitation Status Full Code Height 5 ft 7.2 in Weight 75.9 kg - Renal Dosing Renal Dosing: BUN 16 mg/dL (7-18) 12/26/22 06:00 Creatinine 0.8 mg/dL (0.55-1.02) 12/26/22 06:00 Medications needing adjustments: Reviewed (crcl = 62, no adjustments needed) - Anticoagulation Anticoagulation: Hgb 7.8 g/dL (11.2-15.7) L 12/26/22 06:00 Hct 26.2 % (36.0-46.0) L 12/26/22 06:00 Plt Count 164 10^3/uL (130-400) 12/26/22 06:00 INR 1.1 (0.9-1.1) 12/24/22 17:55 Creatinine 0.8 mg/dL (0.55-1.02) 12/26/22 06:00 DVT Prophylaxis: Reviewed Medications: Heparin (heparin 5000 units subQ q12h) Therapeutic Anticoagulation: Reviewed Medications: Heparin (?PE r/o - was on heparin drip, dc'd this morning) - Opiate Usage Evaluate Pain Scale/Pains Meds: Reviewed (tramadol 50 mg q4h prn - using sparingly (1-2 doses per day)) Scheduled Bowel Reg ordered if on Opiates?: No (PRN) - Relevant Labs Sodium 139 mmol/L (136-145) 12/26/22 06:00 Potassium 3.3 mmol/L (3.5-5.1) L 12/26/22 06:00 Chloride 108 mmol/L (98-107) H 12/26/22 06:00 Magnesium 2.1 mg/dL (1.8-2.4) 12/26/22 06:00 C-Reactive Protein 22.64 mg/dL (0.0-0.3) H 12/26/22 06:00 Electrolytes, C-Reactive P, ESR: Reviewed (K+ = 3.3, received 40 mEq IV today) - DM Control DM Control: Glucose 245 mg/dL (74-106) H 12/26/22 06:00 Finger Stick Blood Glucose 193 Finger Stick Blood Glucose 193 Finger Stick Blood Glucose 193 DM Control: Reviewed Insulin Dosing, Diabetic Medication: insulin glargine 15 units QHS (increased from 10 units) + insulin aspart sliding scale Q6h. Takes metformin 1000 mg BID at home, Trulicity, (?aspart sliding scale - appears this was prescribed last discharge 11/28/22, not clear if it has been used) - Cardiac Review Cardiac Review: Troponin I < 50 ng/L (<or=60) 12/24/22 13:00 BP, HR, EF%: Reviewed - Qtc Review QTc: Reviewed (QTc = 449 on 12/24) - IV to PO Switch IV Medications: Reviewed (requiring IV for now (in ICU for sepsis)) - Current meds Comments: katelynpi drip - attempting to wean. 50 g albumin given today Antibiotic Review - Pharmacy Antibiotic Review Pharmacy Antibiotic Activity: 48 hour review, Antibiotic de-escalation Relevant Labs: Relevant Labs 12/26/22 12/26/22 06:00 06:00 C-Reactive Protein 22.64 H Procalcitonin 2.2 - Antibiotic Information Antibiotic Review Info: day 3 of inessa sarabia dc'frandy today. continuing on cefepime 1g q12h + flagyl IV 500 q6h for sepsis, source not confirmed but is suspected to be UTI / GI (gram neg rods)
--- NOTE | 2022-12-26 16:32 | CHAPLAIN ---
Car Conditioner Silva Dumont told me that Ginger would like a canal structure operator visit and some some scripture read to her. When I went to visit her this afternoon, she was sleeping. I left a bible for and will try to visit again later.
[2022-12-26] MEDS: Lidocaine 5% Patch 1 PATCH TP (16:33)
[2022-12-26] MEDS: Diclofenac 1% Gel 100 GM TUBE TP (20:38)
[2022-12-26] MEDS: Fluticasone NASAL SPRAY 16 GM BTL NS (20:39)
[2022-12-26] MEDS: Albuterol HFA 8 GM 60 PUFF INH IH (21:31)
[2022-12-26] MEDS: Insulin Glargine 300 UNITS/3 ML PEN 15 UNITS SC (21:40)
[2022-12-26] MEDS: Mirtazapine 15 MG TAB PO (21:41)
[2022-12-26] MEDS: rOPINIRole 0.5 MG TAB PO (21:41)
[2022-12-27] VITALS (44 sets, daily range): BP systolic 99–144; BP diastolic 62–82; PULSE 76–97; RESP 7–24; TEMP 35.6–37.3; O2SAT 91–98
--- NOTE | 2022-12-27 | DI.CT_ITS ---
Exam(s) CT NECK W EXAM: CT NECK W CLINICAL HISTORY: dysphagia, right anterior throat pain. TECHNIQUE: Imaging Protocol: Axial computed tomography images with coronal and sagittal reformatted images were created and reviewed CONTRAST MATERIAL: Intravenous: Omnipaque 350 Contrast volume:100 ml contrast COMPARISON: CT CT BRAIN NECK CTA from 03/30/[address] CHEST PE ABD PELVIS W from 12/24/[address] HEAD WO from 12/25/2022 US POCUS EXAM from 12/26/2022 FINDINGS: Parotids/submandibular/thyroid gland: Normal. Lymphadenopathy: No abnormally enlarged lymph nodes. Carotids/Jugular: No significant stenosis or dissection.. Soft tissues: The floor the mouth is unremarkable. Patient edentulous. The epiglottis and vocal cords are within normal limits. No prevertebral soft tissue swelling. Airw ay and upper esophagus are unremarkable. Lungs: Images through both lung apices are unremarkable. Bones: Anterior fusion with hardware at C2-3 and C5 through C7. this creates mild artifact. Visualized portions of the brain and orbits: Unremarkable. Sinuses and mastoids: Minimal mucosal thickening floor of right maxillary sinus and posterior left sp henoid sinus, otherwise clear. IMPRESSION: Postsurgical changes of the cervical spine. No acute abnormality identified. The esophagus was unremarkable on recent chest CT. RADIATION DOSE DELIVERED: 409.34mGy.cm Total DLP DATA REPOSITORY: All CT scans at this facility are submitted to the National Radiology Data Registry (NRDR) Dose Index Registry (DIR) with the [employer] (ACR). RADIATION OPTIMIZATION: All CT scans at this facility use at least one of these dose optimization te chniques: automated exposure control; mA and/or kV adjustment per patient size (includes targeted exa ms where dose is matched to clinical indication); or iterative reconstruction.
[2022-12-27] MEDS: Insulin Aspart 300 UNITS/3 ML PEN SC ×4 (00:12→21:33)
[2022-12-27] MEDS: metroNIDAZOLE 500 MG/100 ML BAG 100 MG IVPB ×2 (03:17→08:44)
[2022-12-27] MEDS: traMADol 50 MG TAB PO ×4 (04:03→19:13)
[2022-12-27] MEDS: CEFEPIME 1 GM in Normal Saline 50 ML IVPB (04:04)
[2022-12-27] MEDS: Hydrocortisone 10 MG TAB 50 MG PO ×3 (05:50→19:15)
[2022-12-27 06:38] LABS: Abs Immature Grans 0.06 10^3/uL (0.0-0.06); Absolute Basophil Count 0.01 10^3/uL (0.0-0.2); Absolute Lymphocyte Count 0.63 10^3/uL (1.2-3.4); Absolute Monocyte Count 0.34 10^3/uL (0.1-0.8); Absolute Neutrophil Count 5.26 10^3/uL (1.2-6.7); Basophils % 0.2; HCT 26.3 % (36.0-46.0); HGB 7.7 g/dL (11.2-15.7); MCH 25.8 pg (27.0-33.0); MCHC 29.3 % (32.0-36.0); MCV 88 fL (80-95); MPV 9.7 fL (8.0-11.0); Monocytes % 5.4; Neutrophils % 83.4; Platelet Count 190 10^3/uL (130-400); RBC 2.99 10^6/uL (3.93-5.22); RDW 23.9 % (11.7-14.6); RDW-SD 74.8 fL
[2022-12-27 07:05] LABS: Anisocytosis 2+; Diff Comment RBC Morph Reviewed
[2022-12-27 07:15] LABS: Anion Gap 7.7 mmol/L (3-11); BUN 16 mg/dL (7-18); CO2 24.3 mmol/L (21.0-32.0); CREATININE 0.8 mg/dL (0.55-1.02); Calcium 9.5 mg/dL (8.5-10.1); Chloride 108 mmol/L (98-107); Estimated GFR 83.26 (mL/min/1.73m2); Glucose 204 mg/dL (74-106); Magnesium 1.8 mg/dL (1.8-2.4); Potassium 3.4 mmol/L (3.5-5.1); Sodium 140 mmol/L (136-145)
[2022-12-27] MEDS: Gabapentin 600 MG TAB 1200 MG PO ×2 (07:47→19:38)
[2022-12-27] MEDS: Loratidine 10 MG TAB PO (07:47)
[2022-12-27] MEDS: buPROPion-XL 150 MG TABCR PO (07:47)
[2022-12-27] MEDS: lamoTRIgine 25 MG TAB 50 MG PO (07:47)
[2022-12-27] MEDS: Carbidopa 25/Levodopa 100 TAB PO ×4 (07:48→19:37)
[2022-12-27] MEDS: Vitamins B Comp w/C TAB 1 TAB PO (07:48)
[2022-12-27] MEDS: Simethicone 80 MG CHEW PO ×4 (07:48→19:44)
[2022-12-27] MEDS: LORazepam 0.5 MG TAB PO ×2 (07:49→19:36)
[2022-12-27] MEDS: traZODone 50 MG TAB 25 MG PO ×2 (07:50→19:17)
[2022-12-27] MEDS: Aspirin E.C. 81 MG TABEC PO (07:51)
[2022-12-27] MEDS: Levothyroxine 100 MCG TAB PO (07:51)
[2022-12-27] MEDS: QUEtiapine 100 MG TAB PO ×2 (07:52→19:35)
[2022-12-27] MEDS: Calcium Citrate 950 MG TAB PO ×2 (07:52→19:34)
[2022-12-27] MEDS: Omeprazole 20 MG CAPCR PO (07:55)
--- NOTE | 2022-12-27 08:25 | PGE_ITS ---
Date of Service Date of service: 12/27/22 Time of Service: 08:25 Assessment and Plan Assessment and plan (1) Septic shock: Status: Acute Assessment and plan: shock state resolved. now off vasopressors since yesterday morning. hemodynamically stable. BC + for GNR on 12/24 and urine C&S also + for GNR. Awaiting repeat cultures from today. Remains on cefepime and flagyl. stool s tudies negative for shigella and C diff. probably can stop the flagyl and continue w/ the cefepime. continue stress dose steroids for 24 hrs then begin to taper. Professional time spent interviewing and examining patient, discussion of goals of care with hospital team (care management, nursing and consulting professionals) was 60 minutes. (2) Diarrhea: Status: Acute Assessment and plan: As above. She has hx of [place] syndrome. She is on Linzess and being followed by [facility]. Dr. Osorio spoke w/ them. They have not performed upper or lower endoscopy. Neither has our surgical team. Stools reported as soft but liquid yesterday. (3) Pulmonary embolism: Status: Ruled-out Assessment and plan: This was not a clear finding on CT. Perhaps could have an outpatient VQ scan, but we do not have a strong indication for anticoagulation at this time, especially since the venous dopplers were negative and the echo does not show clear signs of R-sided issues. D/c heparin gtt. But remains on heparin 5000 SC q12h (4) Hypokalemia: Status: Acute Assessment and plan: remains low at 3.4. will give additional oral supplementation; recheck daily BMP; repeat K level this afternoon. Mg level is 1.8 (5) DALTON (acute kidney injury): Status: Resolved Assessment and plan: Continue to treat infection. Match I/O's with IVF (no MIVF). Monitor labs (6) IDDM (insulin dependent diabetes mellitus): Assessment and plan: Increase long acting insulin. continue novolog sliding scale; insulin senstive level. When eating adequaely will add CHO coverage (7) Discharge planning issues: Status: Acute Assessment and plan: medically stable. can transfer to med/surg. remains full code. transfer to [facility] when medically stable and infection has resolved. Subjective Subjective Interval history since last seen: Patient complains of pain all over but mostly in right anterior neck and right ear. She seems to be able to swallow her pils w/ some apple sauce w/out choking. STRATEGY LEAD consult pending. She is currently on treatment for sepsis d/t another UTI. She has hx of emphysematous pyelonephritis and recurrent nephrolithiasis. Blood cultures + for gram neg. rods from 12/24/22 (1 of 2 cultures positive) w/ positive urine cultures from 12/24 also demonstrating GNR. Prior cultures from 11/20 grew Proteus mirabilis which was resistant to many antibiotics. Repeat cultures from today pending. She is clinically improving, no longer in shock and has been off vasopressors since yesterday. She is currently on flagyl and cefepime. MRSA screen was negative. Exam Narrative Exam Narrative: Ginger is alert and oriented x 3 She is complaing of right anterior neck swelling and discomfort, and right ear pain; she has coarse rhonchi and wheezes HEENT: edentulous, no exudate, no swelling of her palate, tongue. normal movement Ears: right TM intact, w/out redness or bulging; normal movement w/ swallowing Neck: swelling under right anterior triangle; suspect lymphadenopathy, trachea midline; normal carotid, no JVD Lungs: coarse rhonchi on the right; diffuse expiratory wheezing Heart: RRR Abdomen: soft, nontender, normal bowel sounds Legs: no edema lozada: clear yellow urine Neuro: right hemiparesis from prior CVA; right leg/foot in soft boot Objective Last Vital Signs Temp 36.4 C L 12/27/22 05:17 Pulse 82 12/27/22 06:01 Resp 15 12/27/22 06:01 BP 123/75 12/27/22 06:01 Pulse Ox 96 12/27/22 06:01 Laboratory Results - last 24 hr 12/24/22 12/27/22 12/27/22 15:35 05:30 05:30 WBC 6.30 RBC 2.99 L Hgb 7.7 L Hct 26.3 L MCV 88 MCH 25.8 L MCHC 29.3 L RDW 23.9 H Plt Count 190 MPV 9.7 Immature Gran % 1.0 Neutrophils % 83.4 Lymphocytes % 10.0 Monocytes % 5.4 Eosinophils % 0.0 Basophils % 0.2 Nucleated RBC % 0.0 Absolute Neutrophils 5.26 Absolute Lymphocytes 0.63 L Absolute Monocytes 0.34 Absolute Eosinophils 0.00 Absolute Basophils 0.01 RBC Morphology See Below Anisocytosis 2+ Sodium 140 Potassium 3.4 L Chloride 108 H Carbon Dioxide 24.3 Anion Gap 7.7 BUN 16 Creatinine 0.8 Est GFR (CKD-EPI 2020) 83.26 Glucose 204 H Calcium 9.5 Magnesium 1.8 C-Reactive Protein 6.00 H Stool Campylobacter PCR Negative Stool Salmonella PCR Negative Stool Shigella PCR Negative Shiga Toxin (PCR) Negative Time Spent with Patient Time Spent with Patient: >50 minutes Time was spent: preparing to see the patient(eg.review tests), obtaining and/or reviewing separately otained hiistory, ordering medications,tests, procedures, referring, communicating with other health intensive care nurse (Reviewed plan of care with nursing), indepentently interpreting results, counseling the patient and care coordination
[2022-12-27] MEDS: Heparin 5,000 UNITS/ML VIAL 5000 UNITS SC ×2 (08:38→19:46)
[2022-12-27] MEDS: Potassium Chloride 10 MEQ CAPCR 20 MEQ PO ×3 (08:43→19:41)
[2022-12-27] MEDS: Fluticasone NASAL SPRAY 16 GM BTL NS ×2 (08:49→19:43)
[2022-12-27] MEDS: Diclofenac 1% Gel 100 GM TUBE TP ×2 (08:50→19:46)
--- NOTE | 2022-12-27 09:25 | W.SPSTE ---
Date of service: 12/27/22 Time of Service: 09:25 Subjective Clinical (Bedside) Swallow Evaluation Speech Language Pathology Patient referred for Clinical Swallow Evaluation from Dr Osorio given observed swallowing event with thin liquids and history of dysphagia s/p CVA. Precautions: Fall, Standard, Full code SUBJECTIVE: Patient received alert/awake, semi-upright in hospital bed, agreeable to evaluation, able to communicate wants/needs effectively; patient is able to verbalize understanding of education and recommendations this date yet continues to report I swallow just fine, only sometimes have a hard time with some of my pills, and continues to verbalize preferences for thin liquids and solid food diet despite advisement of aspiration risk. Patient is receptive to recommendations for risk management/compensatory strategies in this case. HPI: Patient is a chronically ill 62 yo female (full code) and resident at the [facility] with hx CVA, DM2, admitted to [facility] ICU with septic shock after developing abdominal pain (right lower quadrant) x 5 days and vomiting x 2 days; most likely causes of her sepsis being UTI or the descending colon distention with gut bacteria translocation (currently on Cefepime and Flagyl which will cover both etiologies). PMHx significant for chronic constipation, as well as h/o chronic abdominal pain, h/o CVA w/ aphasia, IDDM2 Pt was started on a clear liquid diet but made NPO except for ice chips and meds with purees after nursing observed coughing fit with change in breath sounds. Patient reports being on a soft/bite sized diet and thin liquids at the [facility], but MUTUEL MACHINE OPERATOR unable to confirm this with facility at this time. PFSH All Active Problems?(Updated 12/24/22 @ 18:56 by Marisol Vegas DO) Septic shock (Acute) Hypotension (Acute) Pulmonary embolism (Chronic) Hypokalemia (Acute) Hypocalcemia (Acute) Hypomagnesemia (Acute) Discharge planning issues (Acute) Hypomagnesemia (Acute) Hypocalcemia (Acute) DALTON (acute kidney injury) (Acute) Metabolic acidosis (Acute) Hypokalemia (Acute) Pulmonary embolism (Acute) Diarrhea (Acute) Septic shock (Acute) Abdominal bloating (Acute) Abdominal pain (Chronic) Pyelonephritis (Acute) Microcytic anemia (Acute) Emphysematous pyelonephritis (Acute) Pyuria due to bacterial urinary tract infection (Acute) Hydronephrosis of right kidney (Acute) Gallstones (Acute) Arthritis of left shoulder region (Acute) Cough (Acute) Ileus (Acute) Tardive dyskinesia (Acute) Parkinsonism (Acute) History of stroke (Acute) Chronic chest pain (Chronic) Constipation (Chronic) Bipolar 1 disorder (Chronic) Bipolar affective disorder, current episode depressed (Acute) rule out bipolar disorder reported by patient. Antiepileptics maybe preventing manic episode.Major depressive disorder, recurrent, severe with psychotic features (Acute) Current presentation is depression.? She may have bipolar affective disorder.Ambulatory dysfunction (Chronic) Hemiparesis affecting right side as late effect of cerebrovascular accident (Acute) Dysphagia as late effect of cerebrovascular accident (CVA) (Chronic) Dysarthria as late effect of cerebrovascular accident (CVA) (Acute) Aphasia as late effect of cerebrovascular accident (Acute) Neck pain (Acute) Autoimmune disorder (Acute) Medical History? DALTON (acute kidney injury) Anxiety Bipolar 1 disorder Cholelithiasis with acute cholecystitis s/p cholecystostomy and stone extraction in 2014 ([facility]), tube now pulled. Gallbladder still in placeChronic adrenal insufficiency ANDROID IOS DEVELOPER vasculitis Complicated UTI (urinary tract infection) Diverticulosis Hemiparesis affecting right side as late effect of cerebrovascular accident (CVA) Hepatitis C History of multiple cerebrovascular accidents (CVAs) Hypertension Hypothyroidism IDDM (insulin dependent diabetes mellitus) Left rotator cuff tear Lumbar disc disease Nephrolithiasis Neurogenic bladder Obesity (BMI 30.0-34.9) Palliative care encounter Septic shock Staghorn calculus Static encephalopathy Steroid dependent Uterine mass likely a fibroidUTI (urinary tract infection) Surgical History? Abnormal cholangiogram H/O cervical spine surgery H/O foot surgery H/O wrist surgery History of extraction of renal calculus 12[facility]13/2018 - [facility] of hip surgery rightHistory of lumbosacral spine surgery S/P cystoscopy with ureteral stent placement [facility] 11/2018Status post creation of urethral sling by suprapubic approach Objective Objective Respiratory: room air, tolerates well at baseline/rest Language: Grossly WFL Mental Status: Alert Partially oriented Suspect impaired problem-solving (safety) Speech: dysarthric - strained/spastic quality, frequently with syllable deletion (?poor breath support) - estimate 85-90% intelligible Oral Motor Exam: ? Dentition ? Edentulous without dentures ? Oral Mucosa ?Moist (patient has been taking ice chips) ?Good oral care ? CN V - Trigeminal ? Jaw Movement ? WFL ? CN VII ? Labial/Facial ?Impaired coordination ? Impaired strength ? CN IX ? Difficulty to visualize, will re-assess ? CN X ? Laryngeal ? MPT - not tested ? Vocal quality ? Strained ? Abnormal pitch ? Volitional cough ? Weak ? Uncoordinated ? CN XII ? Lingual ? Mild Impaired symmetry ? Impaired strength ? Impaired coordination ? Volitional Swallow ? Suspect reduced laryngeal elevation ? Very delayed onset of swallow ? Souris Swallow Protocol Results ? FAIL: Overt/possible signs of aspiration during or immediately after completion (change in respiratory sounds, wet vocal quality, throat clear) ? Food items tested: ?? Ice: x2 chips - delayed vs absent pharyngeal swallow initiation IDDSI 0: Thin liquid via tsp 3x, via cup edge x4 oz IDDSI 2: Mildly thick liquid via cup edge x 4 oz IDDSI 4: x3 bites IDDSI 7: x1 bite Oral phase: Difficulty with bolus manipulation Difficulty with a-p transport Difficulty chewing Residue Pharyngeal phase: Delayed swallow initiation Reduced hyolaryngeal elevation/excursion Voice & breathing sounds change after swallow? Throat clearing? Denies stasis or intolerance Provided education to: Patient, Nursing, MD Topics Addressed: anatomy/physiology of swallowing mechanism, overt s/sx to monitor for re: potential aspiration of food / liquids, recommendations for improved oral care, relationship between respiratory function changes and deglutition, Rationale for recommendations as outlined below Outcome: Verbalized/demonstrated understanding (MD, RN) Needs review/reinforcement (patient) Assessment Impressions: Suspect patient with mild-moderate oral-pharyngeal dysphagia, demonstrates significant difficulty with mastication at this time and with reduced tolerance of thin liquids (wet voicing, congested breathing). However, when patient is educated regarding these observations, implications, and rationale for recommendations, she denies any difficulty with thin liquids and refuses further trials of thickened liquids. She states preference for soft/bite size diet per her reported baseline (suspect mastication quality will be poor). She is willing to try minced-moist during upcoming meals, with option to upgrade if tolerated well. MUTUEL MACHINE OPERATOR to follow-up to assess tolerance and trial upgraded texture if patient still admitted on Sunday. Provided education to nursing, patient, regarding importance of risk mitigation strategies as outlined below given patient's refusal of thickened liquids. Further MUTUEL MACHINE OPERATOR services: Request long term MUTUEL MACHINE OPERATOR through the [facility] upon discharge ? Instrumentation: May consider VFSE/MBSS while on unit vs outpatient, however, suspect any downgrade recommendations are unlikely to sway patient preference, likely not indicated per patient goals. Will continue to present education and offer this during follow-ups. ? Recommendations: Diet Texture Modification(s): IDDSI Level(s) SOLIDS 5-Minced & Moist Solids LIQUIDS 0-Thin Liquids - VERY SMALL SIPS, BOLT UPRIGHT SEATING ENSURE ORAL CARE PRIOR TO LIQUIDS ICE CHIPS BETWEEN MEALS WITH GOOD ORAL CARE Medication Intake: Whole with 4-Extremely Thick Liquids (applesauce, pudding) RISK MANAGEMENT: HOB upright as tolerated; upright for all PO intake. Oral hygiene q4h/every 4 hours / before/after PO intake, using friction with toothbrush on all oral structures as tolerated ? Level of Assistance/Supervision: 1:1 close supervision for all PO intake PO intake only when awake/alert? Strategies/Adaptations/Assistive Equipment: Reduce auditory and/or visual distractions when eating Provide verbal and/or visual cues to use recommended strategies Small sips and bites when eating Slow rate of intake Alternate intake of liquids and solids Posture/Positioning Needs: Maintain upright position at least 30 minutes after meals Sleep with head of bed elevated to reduce likelihood of nocturnal reflux Plan Patient to be followed while on unit for diet tolerance. Short Term Goals: Goals: Patient will tolerate safest/least restrictive diet of MINCED MOIST/THIN without s/sx aspiration. Patient/caregiver will be independent with aspiration precautions, diet modifications, and safe swallowing strategies. Patient/caregiver will verbalize/demonstrate understanding of education r/t anatomy/physiology of normal vs disordered swallowing mechanism, overt s/sx to monitor for re: potential aspiration of food liquids, recommendations for improved oral care, relationship between respiratory function changes and deglutition, rationale for risk management strategies. TIME SPENT: 30 min Coding Diagnoses CPT Codes EVALUATE SWALLOWING FUNCTION - [id number] ([id number])
--- NOTE | 2022-12-27 09:44 | PDOC.CMPRO ---
- If Service Date Differs Date of service: 12/27/22 Time of Service: 09:44 Care Management Progress Note S/O: Ginger was sitting up in bed when CM met with her. She stated that she is still feeling sick. She stated that she would like a list of alternative facilities for her to live at. CM will provide the list of facilities in [place]. CM explained that since she is a detention resident at the [facility], her plan will be to return to the [facility]. CM will continue to follow. A: Ginger is a 62 year old female admitted to [facility] on 12/24/22 for septic shock, acute PE, diarrhea, electrolyte abnormality. P: Ginger will return to the [facility] once medically cleared, where she resides. She will transport via EMS, coordinated by CM. She will follow up with facility providers and discharge plan of care. CM will continue to follow.
[2022-12-27] MEDS: Omnipaque 350 MG/ML 500 ML BTL-Imaging package 100 ML IJ (10:23)
[2022-12-27] MEDS: Normal Saline - Diluent 50 ML VIAL IJ (10:23)
--- NOTE | 2022-12-27 10:29 | PT.INNT ---
Date of service: 12/27/22 Time of Service: 10:29 PT Notes Visit Reasons: Septic Shock,Acute PE,Diarrhea,Electrolyte Abnorma Attempted to see patient but is at CT scan procedure downstairs. Will attempt to see patient upon return to ICU for PT evaluation, as ordered.
[2022-12-27] MEDS: Ipratropium/Albuterol 4 GM 120 PUFF INH IH ×3 (12:17→19:58)
[2022-12-27] MEDS: QUEtiapine 100 MG TAB 50 MG PO (13:47)
--- NOTE | 2022-12-27 14:06 | PT.INIE ---
Date of service: 12/27/22 Time of Service: 14:03 PT Notes Visit Reasons: Septic Shock,Acute PE,Diarrhea,Electrolyte Abnorma Physical Therapy Inpatient Initial Evaluation Date: 12/27/2022 Referring Doctor: Yojana Osorio MD PT Orders: PT CONSULT: Limited ability Precautions: Standard. Bed-bound. Full assist for all transfers. Patient Profile/Admitting Diagnosis: Ginger is a 62-year-old female long-term care resident of [facility] who presented to the ED on 12/24/2022 due to decreasing oral intake, vomiting, and abdominal pain. Patient is admitted to the ICU for close monitoring of septic shock, diarrhea, hypokalemia, metabolic acidosis, hypocalcemia, hypomagnesemia, and acute kidney injury. PMHX: All Active Problems?(Updated 12/24/22 @ 18:56 by Marisol Veags DO) Septic shock (Acute) Hypotension (Acute) Pulmonary embolism (Chronic) Hypokalemia (Acute) Hypocalcemia (Acute) Hypomagnesemia (Acute) Discharge planning issues (Acute) Hypomagnesemia (Acute) Hypocalcemia (Acute) DALTON (acute kidney injury) (Acute) Metabolic acidosis (Acute) Hypokalemia (Acute) Pulmonary embolism (Acute) Diarrhea (Acute) Septic shock (Acute) Abdominal bloating (Acute) Abdominal pain (Chronic) Pyelonephritis (Acute) Microcytic anemia (Acute) Emphysematous pyelonephritis (Acute) Pyuria due to bacterial urinary tract infection (Acute) Hydronephrosis of right kidney (Acute) Gallstones (Acute) Arthritis of left shoulder region (Acute) Cough (Acute) Ileus (Acute) Tardive dyskinesia (Acute) Parkinsonism (Acute) History of stroke (Acute) Chronic chest pain (Chronic) Constipation (Chronic) Bipolar 1 disorder (Chronic) Bipolar affective disorder, current episode depressed (Acute) rule out bipolar disorder reported by patient. Antiepileptics maybe preventing manic episode.Major depressive disorder, recurrent, severe with psychotic features (Acute) Current presentation is depression.? She may have bipolar affective disorder.Ambulatory dysfunction (Chronic) Hemiparesis affecting right side as late effect of cerebrovascular accident (Acute) Dysphagia as late effect of cerebrovascular accident (CVA) (Chronic) Dysarthria as late effect of cerebrovascular accident (CVA) (Acute) Aphasia as late effect of cerebrovascular accident (Acute) Neck pain (Acute) Autoimmune disorder (Acute) Medical History? DALTON (acute kidney injury) Anxiety Bipolar 1 disorder Cholelithiasis with acute cholecystitis s/p cholecystostomy and stone extraction in 2014 ([facility]), tube now pulled. 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 insufficiency LICENSED CERTIFIED ORTHOTIST vasculitis Complicated UTI (urinary tract infection) Diverticulosis Hemiparesis affecting right side as late effect of cerebrovascular accident (CVA) Hepatitis C History of multiple cerebrovascular accidents (CVAs) Hypertension Hypothyroidism IDDM (insulin dependent diabetes mellitus) Left rotator cuff tear Lumbar disc disease Nephrolithiasis Neurogenic bladder Obesity (BMI 30.0-34.9) Palliative care encounter Septic shock Staghorn calculus Static encephalopathy Steroid dependent Uterine mass likely a fibroid UTI (urinary tract infection) Surgical History? Abnormal cholangiogram H/O cervical spine surgery H/O foot surgery H/O wrist surgery History of extraction of renal calculus 12/13/2018 - [facility] History of hip surgery right History of lumbosacral spine surgery S/P cystoscopy with ureteral stent placement [facility] 11/2018 Status post creation of urethral sling by suprapubic approach Social History/Home Situation: Bed-bound LTC SNF resident requiring mechanical lift for all transfers. Able to feed self with left upper extremity. Modified independent with grooming after set up. Total assist with all bed mobility and essential transfers. Equipment Owned/DME: LTC SNF resident Subjective: Patient verbalizes being in need of strengthening exercises for her eft upper extremity. States at that she gets all the assistance she needs with all functional mobility tasks as a LTC resident of SNF. Objective: General Observation: Supine in bed. Right UE in abnormal flexion synergy. R UE muscles atrophic. Telemetry monitoring in place. Mental Status: Alert and oriented as to person, place, time, and purpose. Able to pay attention, focus, and respond appropriately. Pain: Denies any in L UE with exercise Vital Signs: WNL as monitored via telemetry ROM: Right Upper Extremity: Grade 3 spasticity, abnormal flexion synergy prominent Left Upper Extremity: Shoulder Flexion WFL. Shoulder abduction WFL. Elbow flexion WFL. Wrist flexion WFL. Functional opening and closing of hand WFL. Right Lower Extremity: No movement allowed Left Lower Extremity: Hip flexion allows less than 25% of available range of motion. Hip abduction less than 25% of available range of motion. Knee flexion allows about 30 degrees. Ankle dorsiflexion to neutral only. Ankle plantarflexion 10 degrees from neutral. Strength: Right Upper Extremity: Shoulder flexors 0/5. Shoulder abductors 0/5. Elbow flexors 0/5. Elbow extensors 0/5. Oil Pipeline Operator strong. Left Upper Extremity: Shoulder flexors 4-/5. Shoulder abductors 4-/5. Elbow flexors 4-/5. Elbow extensors 4-/5. Oil Pipeline Operator strong. Right Lower Extremity: Hip flexors 0/5. Hip abductors 0/5. Knee flexors 0/5. Knee extensors 0/5. Ankle dorsiflexors 0/5. Ankle plantarflexors 0/5. Left Lower Extremity: Hip flexors 2-/5. Hip abductors 2-/5. Knee flexors 2-/5. Knee extensors 2-/5. Ankle dorsiflexors 3-/5. Ankle plantarflexors 3-/5. Bed Mobility/Transfers: Total assist Gait: N/A. Bed-bound. Balance: Static Sitting: N/A. Bed-bound. Dynamic Sitting: N/A. Bed-bound. Static Standing: N/A. Bed-bound. Dynamic Standing: N/A. Bed-bound. Special Tests: Mobility Limitations Standardized Measure [facility] 6 clicks Basic Mobility Inpatient Short Form: Raw Score: 6 CMS Score: 100% deficit Informed Consent/Education: Patient was instructed in purpose of PT consult and plan of care. Agreeable to proceed with established PT POC to achieve personal goals. Assessment: Patient presents with clinical signs and symptoms consistent with current/admitting diagnoses that have resulted to mobility limitations, gait instability, generalized weakness, and overall ADL decline as demonstrated by the following impairment level findings: 1. Decreased strength to B UE/LE major muscle groups with L UE/LE spastic and unable to move 2. Bed-bound Impairments are contributing to the following functional limitations: 1. Total dependence with bed mobility skills Patient is assessed as a 34249 high complexity based on the following: History: 62-year-old female with past medical history as indicated above Examination: Demonstrable impairment in strength, balance, and mobility level with underlying impairments and functional limitations as exhibited above as well as deficit score of 100% utilizing the [facility] Mobility Inpatient Short Form Presentation: Evolving Decision Makin moderate complexity Goals: Goals X1 week 1. Patient will demonstrate 100% mastering of left shoulder resistance exercises utilizing yellow Thera-Band after 3 sessions in order to maintain ability to perform feeding and grooming tasks. Plan of Care/Treatment Plan: 1x/day, 2 days/week x 2 weeks. Plan of care has been reviewed with the SOFTBALL WINDER providing the service under Physical Therapy direction. Initiate Physical Therapy intervention for pain management as needed, strengthening, bed mobility, transfers, gait, stairs, balance training, and use of assistive device. DISCHARGE RECOMMENDATIONS: [] Home with no services [] [] Home with services [specify] [] Home with outpatient PT [] [] SNF for continued rehabilitation [] [] Nursing Home Care [] [] SNF versus LTC based on ability to participate and progress [] [X] Return to SNF when medically cleared by hospitalist TREATMENT CODE/TIME: 43360 x 20 minutes beginning at 13:43 PM. Thank you for the opportunity to participate in the care of this patient. Aydee Medrano PT, DPT, CLT [facility] [place], [place]
[2022-12-27] MEDS: Glycerin Adult Suppository JAR 1 SUPP PR (14:28)
[2022-12-27] MEDS: CEFEPIME 2 GM in Normal Saline 100 ML IVPB (14:29)
[2022-12-27] MEDS: Normal Saline Flush 10 ML SYR IVP ×3 (14:35→20:06)
[2022-12-27] MEDS: Acetaminophen 325 MG TAB PO ×2 (16:11→20:03)
[2022-12-27] MEDS: Lidocaine 5% Patch 1 PATCH TP (19:31)
[2022-12-27] MEDS: Ondansetron 4 MG/2 ML VIAL IVP (20:03)
[2022-12-27] MEDS: Mirtazapine 15 MG TAB PO (21:29)
[2022-12-27] MEDS: rOPINIRole 0.5 MG TAB PO (21:29)
[2022-12-27] MEDS: Insulin Glargine 300 UNITS/3 ML PEN 15 UNITS SC (21:44)
[2022-12-28] VITALS (7 sets, daily range): BP systolic 134–153; BP diastolic 76–85; PULSE 75–89; RESP 16–20; TEMP 35.6–36.2; O2SAT 95–100
[2022-12-28] MEDS: Normal Saline Flush 10 ML SYR IVP ×2 (01:24→04:17)
[2022-12-28] MEDS: Hydrocortisone 10 MG TAB 50 MG PO ×3 (01:24→11:43)
[2022-12-28] MEDS: CEFEPIME 2 GM in Normal Saline 100 ML IVPB ×3 (04:17→21:50)
[2022-12-28] MEDS: Normal Saline 500 ML 30 ML IV (04:17)
[2022-12-28] MEDS: traMADol 50 MG TAB PO ×2 (06:36→11:43)
[2022-12-28 06:40] LABS: Abs Immature Grans 0.18 10^3/uL (0.0-0.06); HCT 26.2 % (36.0-46.0); HGB 7.8 g/dL (11.2-15.7); MCH 25.7 pg (27.0-33.0); MCHC 29.8 % (32.0-36.0); MCV 87 fL (80-95); MPV 9.7 fL (8.0-11.0); Platelet Count 180 10^3/uL (130-400); RBC 3.03 10^6/uL (3.93-5.22); RDW 23.3 % (11.7-14.6); RDW-SD 71.5 fL; WBC 4.31 10^3/uL (4.4-10.8)
[2022-12-28 07:08] LABS: Anion Gap 7.9 mmol/L (3-11); BUN 14 mg/dL (7-18); C-Reactive Protein 2.31 mg/dL (0.0-0.3); CO2 25.1 mmol/L (21.0-32.0); CREATININE 0.8 mg/dL (0.55-1.02); Calcium 9.4 mg/dL (8.5-10.1); Chloride 104 mmol/L (98-107); Estimated GFR 83.26 (mL/min/1.73m2); Glucose 353 mg/dL (74-106); Potassium 3.9 mmol/L (3.5-5.1); Sodium 137 mmol/L (136-145)
[2022-12-28 07:13] LABS: Absolute Basophil Count 0.04 10^3/uL (0.0-0.2); Absolute Eosinophil Count 0.04 10^3/uL (0.0-0.7); Absolute Lymphocyte Count 0.78 10^3/uL (1.2-3.4); Absolute Monocyte Count 0.26 10^3/uL (0.1-0.8); Absolute Neutrophil Count 3.19 10^3/uL (1.2-6.7)
[2022-12-28 07:14] LABS: Anisocytosis 2+; Basophilic Stippling Present; Diff Comment Manual Differential; Hypochromasia 2+
[2022-12-28] MEDS: Aspirin E.C. 81 MG TABEC PO (07:38)
[2022-12-28] MEDS: buPROPion-XL 150 MG TABCR PO (07:38)
[2022-12-28] MEDS: Heparin 5,000 UNITS/ML VIAL 5000 UNITS SC ×2 (07:38→21:43)
[2022-12-28] MEDS: Potassium Chloride 10 MEQ CAPCR 20 MEQ PO ×3 (07:38→21:00)
[2022-12-28] MEDS: Gabapentin 600 MG TAB 1200 MG PO ×2 (07:38→21:46)
[2022-12-28] MEDS: Simethicone 80 MG CHEW PO ×4 (07:38→21:43)
[2022-12-28] MEDS: Levothyroxine 100 MCG TAB PO (07:39)
[2022-12-28] MEDS: traZODone 50 MG TAB 25 MG PO ×2 (07:39→22:19)
[2022-12-28] MEDS: lamoTRIgine 25 MG TAB 50 MG PO (07:39)
[2022-12-28] MEDS: Carbidopa 25/Levodopa 100 TAB PO ×4 (07:39→21:44)
[2022-12-28] MEDS: Omeprazole 20 MG CAPCR PO (07:39)
[2022-12-28] MEDS: Vitamins B Comp w/C TAB 1 TAB PO (07:40)
[2022-12-28] MEDS: LORazepam 0.5 MG TAB PO ×2 (07:40→21:43)
[2022-12-28] MEDS: QUEtiapine 100 MG TAB PO ×2 (07:40→21:45)
[2022-12-28] MEDS: Loratidine 10 MG TAB PO (07:40)
[2022-12-28] MEDS: Acetaminophen 325 MG TAB PO ×2 (08:32→15:26)
[2022-12-28] MEDS: Calcium Citrate 950 MG TAB PO ×2 (08:32→21:43)
[2022-12-28] MEDS: Ondansetron 4 MG/2 ML VIAL IVP (08:33)
[2022-12-28] MEDS: Cyanocobalamin 500 MCG TAB 1000 MCG PO (08:33)
[2022-12-28] MEDS: Fluticasone NASAL SPRAY 16 GM BTL NS ×2 (08:34→21:49)
[2022-12-28] MEDS: Diclofenac 1% Gel 100 GM TUBE TP ×2 (08:34→21:51)
--- NOTE | 2022-12-28 08:39 | CHAPLAIN ---
Ginger requested that I read a few chapters from the Bible to her. We started by reading Andrzej. Ginger shared some more information about her daughters. One she is not in touch with, the other moved back to [place], [place]. Ginger said she did not want to return to the [facility] because she doesn't like the food. I let her know that I'm not involved in helping people find new places to live, but that her care manager cna might be able to assist with that. She asked me to let her care manager cna know that she wanted to speak with her, so I did.
[2022-12-28] MEDS: Insulin Aspart 300 UNITS/3 ML PEN SC ×4 (08:43→21:41)
[2022-12-28] MEDS: Ipratropium/Albuterol 4 GM 120 PUFF INH IH ×4 (08:47→21:51)
--- NOTE | 2022-12-28 12:17 | CMPROGNOTE_ITS ---
- If Service Date Differs Date of service: 12/28/22 Time of Service: 12:17 Care Management Progress Note S/O: Ginger was lying in bed when CM met with her. She stated that she still feels sick, although she was transferred to M/S today, and is no longer requiring ICU level of care. CM provided her with a list of SNF's in [place], including two that currently have press tender long goods beds available. She stated that can only go to a facility that accepts snf [facility], and it is for press tender long goods care. She requested that the Wheel And Pinion Inspector read her another chapter in the bible today, and CM left a message with the Wheel And Pinion Inspector to provide the message. CM will continue to follow. A: Ginger is a 62 year old female admitted to [facility] on 12/24/22 for septic shock, acute PE, diarrhea, electrolyte abnormality. P: Ginger will return to the [facility] once medically cleared, where she resides. She will transport via EMS, coordinated by CM. She will follow up with facility providers and discharge plan of care. CM will continue to follow.
[2022-12-28] MEDS: QUEtiapine 100 MG TAB 50 MG PO (13:53)
[2022-12-28] MEDS: Lidocaine 5% Patch 1 PATCH TP (15:27)
--- NOTE | 2022-12-28 16:33 | PGE_ITS ---
Date of Service Date of service: 12/28/22 Time of Service: 16:33 Assessment and Plan Assessment and plan (1) Klebsiella pneumoniae sepsis: Status: Acute Assessment and plan: Klebsiella bacteremia secondary to complicated UTI. Repeat blood cultures are pending at this time. Patient is on cefepime 2 g IV every 8 hours. Today is day 5 out of minimum course of 10 days. Patient initially required vasopressors and stress dose corticosteroids. Patient is now off vasopressors and hemodynamically stable currently adequate/surgical floor status. (2) UTI (urinary tract infection): Status: Acute Assessment and plan: As above Qualifiers: Urinary tract infection type: site unspecified (3) Acute bronchitis: Status: Acute Assessment and plan: scheduled DuoNeb, prn xopenex and will add Symbicort; change sress dose hydrocortisone to prednisone; encourage pulmonary toiletry w/ acapella and IS. encourage her to be upright (which she refuses,says she gets short of breath when sitting upright; prefers to recline). (4) Diarrhea: Status: Acute Assessment and plan: As above. She has hx of [place] syndrome. She is on Linzess and being followed by [facility]. Dr. Osorio spoke w/ them. They have not performed upper or lower endoscopy. Neither has our surgical team. Stools reported as soft but liquid yesterday. (5) Hypokalemia: Status: Acute Assessment and plan: remains low at 3.4. will give additional oral supplementation; recheck daily BMP; repeat K level this afternoon. Mg level is 1.8 (6) DALTON (acute kidney injury): Status: Resolved Assessment and plan: Continue to treat infection. Monitor labs (7) IDDM (insulin dependent diabetes mellitus): Assessment and plan: Blood sugars are running in the 400s. I will add 2 unit per 10 gm carbohydrates w/ each meal adjust her sliding scale as well as increase her basal insulin dosing. she needs NPH to be given w/ her corticosteroids. I will dc the hydrocortisone but put her on prednisone 40 mg daily and taper over next 2 weeks. (8) Discharge planning issues: Status: Acute Assessment and plan: medically stable. can transfer to med/surg. remains full code. transfer to [facility] when medically stable and infection has resolved. Subjective Subjective Interval history since last seen: Patient still w/ cough but now more productive; sputum Gram stain w/ a rare GPC, rare eipithelial cells and moderate WBC. CT chest on admission did not show PE but did show mild infiltrate in RLL posterior basal segment. patient refuses to sit up in chair, spends her days lying in bed which does not help w/ mobilization of sputum. I have her on combivent MDI 1 puff qid and she is on hydrocortisone 50 mg qid which was started when she presented in septic shock. She is no longer in shock and has been on cefepime for UTI. She is growing Pseudomonas in her urine. CT abdomen and pelvis did not show any obstructive uroopathy this time. I did increase her cefepime to 2 gm q8hr yesterday. Today will complete her 4th day of cefepime. (out of 10 day course). Exam Narrative Exam Narrative: Ginger is alert and oriented x3 Lungs with scattered expiratory wheezes no rhonchi Heart is regular rate and rhythm Abdomen obese soft nontender Extremities without cyanosis edema Objective Last Vital Signs Temp 36.2 C L 12/28/22 15:31 Pulse 89 12/28/22 15:31 Resp 20 12/28/22 15:31 BP 153/85 H 12/28/22 15:31 Pulse Ox 97 12/28/22 15:31 Laboratory Results - last 24 hr 12/28/22 12/28/22 05:30 05:30 WBC 4.31 L RBC 3.03 L Hgb 7.8 L Hct 26.2 L MCV 87 MCH 25.7 L MCHC 29.8 L RDW 23.3 H Plt Count 180 MPV 9.7 Immature Gran % See Differential Neutrophils % 74.0 Lymphocytes % 18.0 Monocytes % 6.0 Eosinophils % 1.0 Basophils % 1.0 Nucleated RBC % 0.0 Absolute Neutrophils 3.19 Absolute Lymphocytes 0.78 L Absolute Monocytes 0.26 Absolute Eosinophils 0.04 Absolute Basophils 0.04 RBC Morphology See Below Hypochromasia 2+ Basophilic Stippling Present Anisocytosis 2+ Sodium 137 Potassium 3.9 Chloride 104 Carbon Dioxide 25.1 Anion Gap 7.9 BUN 14 Creatinine 0.8 Est GFR (CKD-EPI 2020) 83.26 Glucose 353 H Calcium 9.4 C-Reactive Protein 2.31 H Time Spent with Patient Time Spent with Patient: 25-34 minutes Time was spent: preparing to see the patient(eg.review tests), ordering medications,tests, procedures, indepentently interpreting results, counseling the patient and care coordination
--- NOTE | 2022-12-28 17:28 | DI.RAD_ITS ---
Exam(s) XR PORTABLE CHEST AP EXAM: XR PORTABLE CHEST AP CLINICAL HISTORY: cough TECHNIQUE: 2D digital imaging was performed of the chest. One image was obtained. An AP view was ob tained. COMPARISON: CR,XR XR PORTABLE CHEST AP from 04/22/2020 FINDINGS: MEDIASTINUM: Normal. HEART: Normal. PULMONARY VASCULATURE: Normal. LUNGS: No focal consolidations. PLEURAL SPACE: No pleural effusion or pneumothorax. BONE:Within normal limits for the patient's age. Lower cervical anterior fusion plate. OTHER FINDINGS:Normal. IMPRESSION: No significant change in appearance of the chest history compared to the prior examination. DATA REPOSITORY: RADIATION DOSE DELIVERED:
--- NOTE | 2022-12-28 17:45 | DI.VRAD_ITS ---
PROCEDURE INFORMATION: Exam: XR Chest Exam date and time: 12/28/2022 5:00 PM Age: 62 years old Clinical indication: Other: Cough TECHNIQUE: Imaging protocol: Radiologic exam of the chest. Views: 1 view. COMPARISON: CT CHEST PE ABD PELVIS W 12/24/2022 1:51 PM FINDINGS: Lungs: The lung volumes are mildly increased. Slight increase in the central interstitial markings in enlargement of the bronchus similar to CT examination performed 4 days ago. No lobar consolidations. Slight increase in the interstitial markings in the right mid lung zone. Pleural spaces: Unremarkable. No pleural effusion. No pneumothorax. Heart/Mediastinum: The heart and aorta are normal in size and configuration. Bones/joints: Mild degenerative changes of the osseous structures. Anterior fusion plate C6-C7. IMPRESSION: Minimal chronic bronchitic findings. Possible exacerbation in the right mid lung zone. Dictated and Authenticated by: Serafin Noyola MD. Ordering:[facility] Guero Greene MD
[2022-12-28] MEDS: Budesonide/Formoterol 160/4.5 6 GM 60 PUFF INH IH (19:47)
[2022-12-28] MEDS: Insulin Glargine 300 UNITS/3 ML PEN 20 UNITS SC (21:42)
[2022-12-28] MEDS: rOPINIRole 0.5 MG TAB PO (21:43)
[2022-12-28] MEDS: Mirtazapine 15 MG TAB PO (21:45)
[2022-12-28] MEDS: Insulin NPH-Human 300 UNITS/3 ML PEN 10 UNIT SC (23:13)
[2022-12-29] VITALS (13 sets, daily range): BP systolic 91–143; BP diastolic 59–81; PULSE 74–99; RESP 1–22; TEMP 35.8–36.6; O2SAT 94–99
[2022-12-29] MEDS: Mylanta Suspension 30 ML CUP PO (00:22)
[2022-12-29] MEDS: traMADol 50 MG TAB PO ×4 (00:22→19:42)
[2022-12-29] MEDS: Acetaminophen 325 MG TAB PO ×2 (03:15→21:35)
[2022-12-29] MEDS: CEFEPIME 2 GM in Normal Saline 100 ML IVPB ×3 (03:16→19:44)
[2022-12-29] MEDS: Levalbuterol 1.25 MG/3 ML UPD VIAL UPD (03:30)
[2022-12-29 06:06] LABS: Abs Immature Grans 0.43 10^3/uL (0.0-0.06); Absolute Basophil Count 0.01 10^3/uL (0.0-0.2); Absolute Eosinophil Count 0.06 10^3/uL (0.0-0.7); Absolute Lymphocyte Count 1.71 10^3/uL (1.2-3.4); Absolute Monocyte Count 0.72 10^3/uL (0.1-0.8); Basophils % 0.1; Eosinophils % 0.6; HCT 26.7 % (36.0-46.0); HGB 8.1 g/dL (11.2-15.7); Immature Grans % 4.5; Lymphocytes % 17.9; MCH 26.6 pg (27.0-33.0); MCHC 30.3 % (32.0-36.0); MCV 88 fL (80-95); MPV 9.6 fL (8.0-11.0); Monocytes % 7.6; Neutrophils % 69.3; Nucleated RBC 0.7 % (0.0-0.3); Platelet Count 251 10^3/uL (130-400); RBC 3.05 10^6/uL (3.93-5.22); RDW 23.3 % (11.7-14.6); RDW-SD 71.8 fL; WBC 9.53 10^3/uL (4.4-10.8)
[2022-12-29 06:36] LABS: BUN 15 mg/dL (7-18); C-Reactive Protein 1.04 mg/dL (0.0-0.3); CREATININE 0.9 mg/dL (0.55-1.02); Chloride 104 mmol/L (98-107); Estimated GFR 72.28 (mL/min/1.73m2); Glucose 221 mg/dL (74-106); Magnesium 1.4 mg/dL (1.8-2.4); Sodium 139 mmol/L (136-145)
[2022-12-29 06:40] LABS: Potassium 2.8 mmol/L (3.5-5.1)
[2022-12-29] MEDS: POTASSIUM CHLORIDE 10 MEQ/100 ML BAG 100 MEQ IVPB ×4 (07:01→11:55)
[2022-12-29 07:10] LABS: Procalcitonin 0.3 ng/mL
[2022-12-29 08:07] LABS: Anisocytosis 2+; Diff Comment RBC Morph Reviewed
[2022-12-29] MEDS: MAGNESIUM SULFATE 2 GM/50 ML BAG IVPB (08:11)
[2022-12-29] MEDS: Heparin 5,000 UNITS/ML VIAL 5000 UNITS SC ×2 (08:12→19:43)
[2022-12-29] MEDS: Cyanocobalamin 500 MCG TAB 1000 MCG PO (08:21)
[2022-12-29] MEDS: Gabapentin 600 MG TAB 1200 MG PO ×2 (08:22→19:43)
[2022-12-29] MEDS: Levothyroxine 100 MCG TAB PO (08:25)
[2022-12-29] MEDS: traZODone 50 MG TAB 25 MG PO ×2 (08:25→19:42)
[2022-12-29] MEDS: QUEtiapine 100 MG TAB PO ×2 (08:25→19:43)
[2022-12-29] MEDS: Loratidine 10 MG TAB PO (08:25)
[2022-12-29] MEDS: LORazepam 0.5 MG TAB PO ×2 (08:26→19:42)
[2022-12-29] MEDS: buPROPion-XL 150 MG TABCR PO (08:27)
[2022-12-29] MEDS: Aspirin E.C. 81 MG TABEC PO (08:27)
[2022-12-29] MEDS: Carbidopa 25/Levodopa 100 TAB PO ×4 (08:27→19:42)
[2022-12-29] MEDS: Potassium Chloride 10 MEQ CAPCR 20 MEQ PO ×2 (08:27→14:14)
[2022-12-29] MEDS: Omeprazole 20 MG CAPCR PO (08:28)
[2022-12-29] MEDS: Simethicone 80 MG CHEW PO ×4 (08:28→19:42)
[2022-12-29] MEDS: Vitamins B Comp w/C TAB 1 TAB PO (08:28)
[2022-12-29] MEDS: predniSONE 20 MG TAB 40 MG PO (08:28)
[2022-12-29] MEDS: lamoTRIgine 25 MG TAB 50 MG PO (08:29)
[2022-12-29] MEDS: Calcium Citrate 950 MG TAB PO ×2 (08:29→19:42)
[2022-12-29] MEDS: Insulin Aspart 300 UNITS/3 ML PEN SC ×6 (08:33→22:02)
[2022-12-29] MEDS: Insulin NPH-Human 300 UNITS/3 ML PEN 20 UNIT SC (08:45)
[2022-12-29] MEDS: Diclofenac 1% Gel 100 GM TUBE TP ×2 (08:46→20:44)
[2022-12-29] MEDS: Ipratropium/Albuterol 4 GM 120 PUFF INH IH ×4 (09:11→19:36)
[2022-12-29] MEDS: Budesonide/Formoterol 160/4.5 6 GM 60 PUFF INH IH ×2 (09:12→19:37)
--- NOTE | 2022-12-29 09:58 | OT.INNT ---
Occupational Therapy Notes 12/29/22 OT consult received and pts chart was reviewed. Pt reports that she requires (A) with her ADLs. She notes that she has start to use her (L) UE more but she would like to work on strengthening again like she did prior when she was last admitted. She notes that she is performing strengthening with Physical Therapy and does not want OT at this time. Summer Ventura, OTR/L
--- NOTE | 2022-12-29 12:50 | CMPROGNOTE_ITS ---
- If Service Date Differs Date of service: 12/29/22 Time of Service: 12:50 Care Management Progress Note S/O: Per report, Ginger remains on IV abx. Her potassium and magnesium were low today and will be repleted, therefore she is not medically ready for discharge. CM sent referrals to [facility] and [facility] for consideration, at Ginger's request, as she is looking for relocation. CM will continue to follow. A: Ginger is a 62 year old female admitted to [facility] on 12/24/22 for septic shock, acute PE, diarrhea, electrolyte abnormality. P: Ginger will return to the [facility] once medically cleared, where she resides. She will transport via EMS, coordinated by CM. She will follow up with facility providers and discharge plan of care. CM will continue to follow.
[2022-12-29] MEDS: QUEtiapine 100 MG TAB 50 MG PO (14:14)
--- NOTE | 2022-12-29 16:00 | W.PM.PROGNOT ---
Date of Service Date of service: 12/29/22 Time of Service: 16:00 Assessment and Plan Assessment and plan (1) Klebsiella pneumoniae sepsis: Status: Acute Assessment and plan: Klebsiella bacteremia secondary to complicated UTI. Repeat blood cultures from 12/26 are no growth to date. Patient is on cefepime 2 g IV every 8 hours. Today is day #6 out of minimum course of 10 days. Patient initially required vasopressors and stress dose corticosteroids. Patient has been off vasopressors and hemodynamically stable currently adequate/surgical floor status. (2) UTI (urinary tract infection): Status: Acute Assessment and plan: As above Qualifiers: Urinary tract infection type: site unspecified (3) Acute bronchitis: Status: Acute Assessment and plan: scheduled DuoNeb, prn xopenex and will add Symbicort; change sress dose hydrocortisone to prednisone; encourage pulmonary toiletry w/ acapella and IS. encourage her to be upright (which she refuses,says she gets short of breath when sitting upright; prefers to recline). sputum culture from 12/28 grew NOF (4) Diarrhea: Status: Acute Assessment and plan: As above. She has hx of [place] syndrome. She is on Linzess and being followed by [facility]. Dr. Osorio spoke w/ them. They have not performed upper or lower endoscopy. Neither has our surgical team. Stools reported as soft but liquid yesterday. (5) Hypokalemia: Status: Acute Assessment and plan: repeat level this morning was low at 2.8 w/ Mg of 1.4 both were supplemented and repeat K came back at 5.0. I have held further supplementation. Repeat Mg came back 2 (6) DALTON (acute kidney injury): Status: Resolved Assessment and plan: Continue to treat infection. Monitor labs (7) IDDM (insulin dependent diabetes mellitus): Assessment and plan: glucose levels 190 to 290 today. patient now on NPH for coverage of her prednisone and she is on Lantus at bedtime which I am titrating upwards and she is on novolog sliding scale resistant levels and CHO coverage at 2:10. (8) Discharge planning issues: Status: Acute Assessment and plan: medically stable. can transfer to med/surg. remains full code. transfer to [facility] when medically stable and infection has resolved. Subjective Subjective Interval history since last seen: Ginger has her usual concerns regarding her chronic abdominal complaints. she is stooling however. She has cough but this is not productive. She request cough syrup. her potasium and magnesium dropped ovenright to Mg OF 1.4 and K of 2.8 despite them being normal yesterday. Both oral and iv replacment has been orderd and repeat levels this afternoon are normal. She is currently on day # 6 of 10 days of Cefepime 2 gm Iv Q8h. She will complete her antibiotics while here at [facility] Exam Narrative Exam Narrative: Ginger is sitting up in her bed. She is alert/oriented Lungs: some coarse breath sounds that clears w/ cough and deep breathing Heart: RRR Abdomen: large, distended but soft, normal bowel sounds and nontender to palpation Extremities: trace edema in right leg; right foot/ankle in soft boots; no cyanosis, no edema of left foot Objective Last Vital Signs Temp 35.8 C L 12/29/22 11:37 Pulse 91 H 12/29/22 11:37 Resp 22 12/29/22 11:37 BP 91/59 L 12/29/22 11:37 Pulse Ox 98 12/29/22 11:37 Laboratory Results - last 24 hr 12/29/22 12/29/22 12/29/22 05:25 05:25 05:25 WBC 9.53 RBC 3.05 L Hgb 8.1 L Hct 26.7 L MCV 88 MCH 26.6 L MCHC 30.3 L RDW 23.3 H Plt Count 251 MPV 9.6 Immature Gran % 4.5 Neutrophils % 69.3 Lymphocytes % 17.9 Monocytes % 7.6 Eosinophils % 0.6 Basophils % 0.1 Nucleated RBC % 0.7 H Absolute Neutrophils 6.60 Absolute Lymphocytes 1.71 Absolute Monocytes 0.72 Absolute Eosinophils 0.06 Absolute Basophils 0.01 RBC Morphology See Below Anisocytosis 2+ Sodium 139 Potassium 2.8 L* D Chloride 104 Carbon Dioxide 28.0 Anion Gap 7.0 BUN 15 Creatinine 0.9 Est GFR (CKD-EPI 2020) 72.28 Glucose 221 H Calcium 9.0 Magnesium 1.4 L C-Reactive Protein 1.04 H Procalcitonin 0.3 12/29/22 14:20 WBC RBC Hgb Hct MCV MCH MCHC RDW Plt Count MPV Immature Gran % Neutrophils % Lymphocytes % Monocytes % Eosinophils % Basophils % Nucleated RBC % Absolute Neutrophils Absolute Lymphocytes Absolute Monocytes Absolute Eosinophils Absolute Basophils RBC Morphology Anisocytosis Sodium Potassium 5.0 D Chloride Carbon Dioxide Anion Gap BUN Creatinine Est GFR (CKD-EPI 2020) Glucose Calcium Magnesium 2.0 C-Reactive Protein Procalcitonin Time Spent with Patient Time Spent with Patient: 25-34 minutes Time was spent: preparing to see the patient(eg.review tests), ordering medications,tests, procedures, indepentently interpreting results, counseling the patient and care coordination
[2022-12-29] MEDS: Lidocaine 5% Patch 1 PATCH TP (16:09)
[2022-12-29] MEDS: guaiFENesin/D-METHORPHAN HB 5 ML CUP PO ×2 (18:02→21:35)
[2022-12-29] MEDS: rOPINIRole 0.5 MG TAB PO (21:35)
[2022-12-29] MEDS: Mirtazapine 15 MG TAB PO (21:35)
[2022-12-29] MEDS: Insulin Glargine 300 UNITS/3 ML PEN 25 UNITS SC (21:36)
[2022-12-30 03:16] VITALS: BP 127/76; PULSE 76; RESP 16; TEMP 36.7; O2SAT 97
[2022-12-30] MEDS: Acetaminophen 325 MG TAB PO ×3 (03:24→19:42)
[2022-12-30] MEDS: CEFEPIME 2 GM in Normal Saline 100 ML IVPB ×3 (03:24→19:43)
[2022-12-30] MEDS: Lidocaine Patch Removal 1 EACH TP (03:49)
[2022-12-30] MEDS: Levothyroxine 100 MCG TAB PO (05:48)
[2022-12-30 07:36] VITALS: BP 122/78; PULSE 75; RESP 18; TEMP 36.4; O2SAT 99
[2022-12-30 08:03] LABS: Anion Gap 6.7 mmol/L (3-11); BUN 20 mg/dL (7-18); CO2 26.3 mmol/L (21.0-32.0); CREATININE 0.8 mg/dL (0.55-1.02); Calcium 9.4 mg/dL (8.5-10.1); Chloride 100 mmol/L (98-107); Estimated GFR 83.26 (mL/min/1.73m2); Glucose 256 mg/dL (74-106); Magnesium 1.7 mg/dL (1.8-2.4); Sodium 133 mmol/L (136-145)
[2022-12-30] MEDS: Gabapentin 600 MG TAB 1200 MG PO ×2 (08:03→19:42)
[2022-12-30] MEDS: buPROPion-XL 150 MG TABCR PO (08:03)
[2022-12-30] MEDS: Simethicone 80 MG CHEW PO ×4 (08:03→19:40)
[2022-12-30] MEDS: traMADol 50 MG TAB PO ×3 (08:04→16:20)
[2022-12-30] MEDS: traZODone 50 MG TAB 25 MG PO ×2 (08:04→19:41)
[2022-12-30] MEDS: Vitamins B Comp w/C TAB 1 TAB PO (08:04)
[2022-12-30] MEDS: Carbidopa 25/Levodopa 100 TAB PO ×4 (08:05→19:41)
[2022-12-30] MEDS: Cyanocobalamin 500 MCG TAB 1000 MCG PO (08:05)
[2022-12-30] MEDS: Omeprazole 20 MG CAPCR PO (08:05)
[2022-12-30] MEDS: Calcium Citrate 950 MG TAB PO ×2 (08:05→19:42)
[2022-12-30] MEDS: predniSONE 20 MG TAB 40 MG PO (08:06)
[2022-12-30] MEDS: Aspirin E.C. 81 MG TABEC PO (08:06)
[2022-12-30] MEDS: LORazepam 0.5 MG TAB PO ×2 (08:06→19:41)
[2022-12-30] MEDS: lamoTRIgine 25 MG TAB 50 MG PO (08:06)
[2022-12-30] MEDS: Loratidine 10 MG TAB PO (08:06)
[2022-12-30] MEDS: Insulin NPH-Human 300 UNITS/3 ML PEN 30 UNIT SC (08:07)
[2022-12-30] MEDS: Insulin Aspart 300 UNITS/3 ML PEN SC ×7 (08:08→22:16)
[2022-12-30] MEDS: Fluticasone NASAL SPRAY 16 GM BTL NS ×2 (08:10→22:16)
[2022-12-30] MEDS: Heparin 5,000 UNITS/ML VIAL 5000 UNITS SC ×2 (08:10→19:43)
[2022-12-30] MEDS: QUEtiapine 100 MG TAB PO ×2 (08:10→19:42)
[2022-12-30] MEDS: Diclofenac 1% Gel 100 GM TUBE TP ×2 (08:11→19:43)
[2022-12-30] MEDS: Glycerin Adult Suppository JAR 1 SUPP PR (09:56)
[2022-12-30] MEDS: Budesonide/Formoterol 160/4.5 6 GM 60 PUFF INH IH ×2 (10:41→19:34)
[2022-12-30 11:22] VITALS: BP 117/73; PULSE 90; RESP 19; TEMP 36; O2SAT 100
[2022-12-30] MEDS: guaiFENesin/D-METHORPHAN HB 5 ML CUP PO ×2 (11:42→19:42)
[2022-12-30] MEDS: Ipratropium/Albuterol 4 GM 120 PUFF INH IH ×3 (12:50→19:34)
[2022-12-30] MEDS: QUEtiapine 100 MG TAB 50 MG PO (13:39)
[2022-12-30] MEDS: Lidocaine 5% Patch 1 PATCH TP (16:20)
--- NOTE | 2022-12-30 17:44 | PGE_ITS ---
Date of Service Date of service: 12/30/22 Time of Service: 17:44 Assessment and Plan Assessment and plan (1) PIC line (peripherally inserted central catheter) removal: Status: Acute Assessment and plan: left midline catheter non-functional; I have advised nursing to remove. will monitor but if swelling developes then will need U.S. of her arm to look for DVT (2) Klebsiella pneumoniae sepsis: Status: Acute Assessment and plan: Klebsiella bacteremia secondary to complicated UTI. Repeat blood cultures from 12/26 are no growth to date. Patient is on cefepime 2 g IV every 8 hours. Today is day #7 out of minimum course of 10 days. Patient initially required vas opressors and stress dose corticosteroids. Patient has been off vasopressors and hemodynamically stable currently adequate/surgical floor status. (3) UTI (urinary tract infection): Status: Acute Assessment and plan: As above Qualifiers: Urinary tract infection type: site unspecified (4) Acute bronchitis: Status: Acute Assessment and plan: scheduled DuoNeb, prn xopenex and will add Symbicort; change sress dose hydrocortisone to prednisone; encourage pulmonary toiletry w/ acapella and IS. encourage her to be upright (which she refuses,says she gets short of breath when sitting upright; prefers to recline). sputum culture from 12/28 grew NOF (5) Diarrhea: Status: Acute Assessment and plan: As above. She has hx of [place] syndrome. She is on Linzess and being followed by [facility] [place] [facility]. Dr. Osorio spoke w/ them. They have not performed upper or lower endoscopy. Neither has our surgical team. Stools reported as soft but liquid yesterday. (6) Hypokalemia: Status: Resolved Assessment and plan: K now 5.0. she is off supplements now. Will monitor (7) DALTON (acute kidney injury): Status: Resolved Assessment and plan: Continue to treat infection. Monitor labs (8) IDDM (insulin dependent diabetes mellitus): Assessment and plan: glucose 177 to 288.. patient now on NPH for coverage of her prednisone and she is on Lantus at bedtime which I am titrating upwards and she is on novolog sliding scale resistant levels and CHO coverage at 2:10. (9) Discharge planning issues: Status: Acute Assessment and plan: medically stable. can transfer to med/surg. remains full code. transfer to [facility] when medically stable and infection has resolved. Subjective Subjective Interval history since last seen: Yesterday patient noted burning of her left arm w/administration of potassium supplements. Today, nursing notes that the midline will not flush. I have advised nursing to remove the midline. Patient also complains of bloating and gas but she is having bowel movement today. No nausea or vomiting. She seems to be eating dinner well. Exam Narrative Exam Narrative: Ginger is sitting up in bed, eating dinner Lungs: clear Heart: regular Abdomen: obese, soft but bloated, normal bowel sounds Left arm: midline over medial humerus, slight erythema over the insertion site but no hard and no purlent drainage; skin is soft Objective Last Vital Signs Temp 36.0 C L 12/30/22 11:22 Pulse 90 12/30/22 11:22 Resp 19 12/30/22 11:22 BP 117/73 12/30/22 11:22 Pulse Ox 100 12/30/22 11:22 Laboratory Results - last 24 hr 12/30/22 07:30 Sodium 133 L Potassium 5.0 Chloride 100 Carbon Dioxide 26.3 Anion Gap 6.7 BUN 20 H Creatinine 0.8 Est GFR (CKD-EPI 2020) 83.26 Glucose 256 H Calcium 9.4 Magnesium 1.7 L Time Spent with Patient Time Spent with Patient: <25 minutes Time was spent: preparing to see the patient(eg.review tests), ordering medications,tests, procedures, indepentently interpreting results, counseling the patient and care coordination
[2022-12-30 19:15] VITALS: BP 117/65; PULSE 78; RESP 18; TEMP 36; O2SAT 97
[2022-12-30] MEDS: Magnesium Oxide 400 MG TAB PO (19:40)
[2022-12-30] MEDS: rOPINIRole 0.5 MG TAB PO (22:16)
[2022-12-30] MEDS: Mirtazapine 15 MG TAB PO (22:16)
[2022-12-30] MEDS: Insulin Glargine 300 UNITS/3 ML PEN 25 UNITS SC (22:17)
[2022-12-30 23:15] VITALS: BP 132/75; PULSE 93; RESP 19; TEMP 36.1; O2SAT 97
[2022-12-31 03:02] VITALS: BP 100/63; PULSE 87; RESP 18; TEMP 36.6; O2SAT 96
[2022-12-31] MEDS: CEFEPIME 2 GM in Normal Saline 100 ML IVPB ×3 (04:16→20:03)
[2022-12-31] MEDS: Lidocaine Patch Removal 1 EACH TP (05:42)
[2022-12-31] MEDS: Levothyroxine 100 MCG TAB PO (05:42)
[2022-12-31 06:34] LABS: HCT 28.3 % (36.0-46.0); HGB 8.4 g/dL (11.2-15.7); MCH 26.3 pg (27.0-33.0); MCHC 29.7 % (32.0-36.0); MCV 88 fL (80-95); MPV 9.7 fL (8.0-11.0); Platelet Count 320 10^3/uL (130-400); RDW 24.9 % (11.7-14.6); RDW-SD 74.3 fL; WBC 8.39 10^3/uL (4.4-10.8)
[2022-12-31] MEDS: Insulin NPH-Human 300 UNITS/3 ML PEN 30 UNIT SC (07:34)
[2022-12-31] MEDS: predniSONE 20 MG TAB 40 MG PO (07:35)
[2022-12-31] MEDS: Cyanocobalamin 500 MCG TAB 1000 MCG PO (07:35)
[2022-12-31] MEDS: lamoTRIgine 25 MG TAB 50 MG PO (07:35)
[2022-12-31] MEDS: Magnesium Oxide 400 MG TAB PO ×2 (07:35→19:56)
[2022-12-31] MEDS: Loratidine 10 MG TAB PO (07:36)
[2022-12-31] MEDS: traZODone 50 MG TAB 25 MG PO ×2 (07:36→19:56)
[2022-12-31] MEDS: buPROPion-XL 150 MG TABCR PO (07:36)
[2022-12-31] MEDS: Calcium Citrate 950 MG TAB PO ×2 (07:36→19:56)
[2022-12-31] MEDS: Vitamins B Comp w/C TAB 1 TAB PO (07:36)
[2022-12-31] MEDS: QUEtiapine 100 MG TAB PO ×2 (07:36→19:56)
[2022-12-31] MEDS: Carbidopa 25/Levodopa 100 TAB PO ×4 (07:36→19:56)
[2022-12-31] MEDS: traMADol 50 MG TAB PO ×3 (07:37→20:11)
[2022-12-31] MEDS: LORazepam 0.5 MG TAB PO ×2 (07:37→19:56)
[2022-12-31] MEDS: Aspirin E.C. 81 MG TABEC PO (07:37)
[2022-12-31] MEDS: Gabapentin 600 MG TAB 1200 MG PO ×2 (07:37→19:56)
[2022-12-31] MEDS: Omeprazole 20 MG CAPCR PO (07:38)
[2022-12-31] MEDS: Simethicone 80 MG CHEW PO ×4 (07:38→19:57)
[2022-12-31] MEDS: Heparin 5,000 UNITS/ML VIAL 5000 UNITS SC ×2 (07:39→20:11)
[2022-12-31 07:49] VITALS: BP 145/87; PULSE 67; RESP 16; TEMP 36.7; O2SAT 97
[2022-12-31] MEDS: Insulin Aspart 300 UNITS/3 ML PEN SC ×7 (08:12→20:53)
[2022-12-31] MEDS: Diclofenac 1% Gel 100 GM TUBE TP ×2 (08:13→19:57)
[2022-12-31] MEDS: Ipratropium/Albuterol 4 GM 120 PUFF INH IH ×4 (08:39→19:28)
[2022-12-31] MEDS: Budesonide/Formoterol 160/4.5 6 GM 60 PUFF INH IH ×2 (08:39→19:27)
[2022-12-31 11:28] VITALS: BP 115/67; PULSE 91; RESP 18; TEMP 36.5; O2SAT 97
[2022-12-31] MEDS: guaiFENesin/D-METHORPHAN HB 5 ML CUP PO (12:03)
[2022-12-31 14:16] LABS: Source Nasal/Nares
--- NOTE | 2022-12-31 14:24 | PGE_ITS ---
Date of Service Date of service: 12/31/22 Time of Service: 14:24 Assessment and Plan Assessment and plan (1) PIC line (peripherally inserted central catheter) removal: Status: Acute Assessment and plan: Midline was removed yesterday (note that this was a midline not a PICC line. I chose the diagnosis of PICC line removal since I could not find anything [facility] to cover [facility]line removal. Left arm is not tender and not swollen and there is no sign of infection at the site. (2) Klebsiella pneumoniae sepsis: Status: Acute Assessment and plan: Klebsiella bacteremia secondary to complicated UTI. Repeat blood cultures from 12/26 are no growth to date. Patient is on cefepime 2 g IV every 8 hours. Today is day #8 out of course of 10 days. Patient initially required vasopressors and stress dose corticosteroids. Patient has been off vasopressors and hemodynamically stable currently adequate/surgical floor status. (3) UTI (urinary tract infection): Status: Acute Assessment and plan: As above Qualifiers: Urinary tract infection type: site unspecified (4) Acute bronchitis: Status: Acute Assessment and plan: scheduled DuoNeb, prn xopenex and will add Symbicort; change sress dose hydrocortisone to prednisone; encourage pulmonary toiletry w/ acapella and IS. encourage her to be upright (which she refuses,says she gets short of breath when sitting upright; prefers to recline). sputum culture from 12/28 grew NOF (5) Diarrhea: Status: Acute Assessment and plan: As above. She has hx of [place] syndrome. She is on Linzess and being followed by [facility]. Dr. Osorio spoke w/ them. They have not performed upper or lower endoscopy. Neither has our surgical team. patient is moving her bowels. still liquid but C diff has been negative (6) Hypokalemia: Status: Resolved Assessment and plan: K now 5.0. she is off supplements now. Will monitor (7) DALTON (acute kidney injury): Status: Resolved Assessment and plan: Continue to treat infection. Monitor labs (8) IDDM (insulin dependent diabetes mellitus): Assessment and plan: glucose 177 to 288.. patient now on NPH for coverage of her prednisone and she is on Lantus at bedtime which I am titrating upwards and she is on novolog sliding scale resistant levels and CHO coverage at 2:10. (9) Discharge planning issues: Status: Acute Assessment and plan: medically stable. can transfer to med/surg. remains full code. transfer to [facility] when medically stable and infection has resolved. Subjective Subjective Interval history since last seen: Patient still has a moist cough particular after meals. However she is not bringing up any purulent sputum and she is not short of breath. She is not hypoxemic. Only other complaint is that her mouth tends to burn she is asking for an anesthetic spray. We will try some Cepacol lozengers. I looked in her mouth I did not see any thrush but I will empirically treat her with nystatin swish and swallow since she has been on antibiotics for prolonged course for her Pseudomonas. Exam Narrative Exam Narrative: She is alert and oriented sitting up in bed in no acute distress. Oropharynx she is edentulous I did not see a exudates in her mouth or tongue. Lungs with coarse rhonchi that clears with coughing and deep breathing Heart is regular rate and rhythm Abdomen obese soft nontender normal bowel sounds Left arm is not swollen nontender to palpation. Mid line site has a small bruise at the entrance site but there is no discharge. Mid line has been removed Objective Last Vital Signs Temp 36.5 C 12/31/22 11:28 Pulse 91 H 12/31/22 11:28 Resp 18 12/31/22 11:28 BP 115/67 12/31/22 11:28 Pulse Ox 97 12/31/22 11:28 Laboratory Results - last 24 hr 12/31/22 12/31/22 06:16 14:01 WBC 8.39 RBC 3.20 L Hgb 8.4 L Hct 28.3 L MCV 88 MCH 26.3 L MCHC 29.7 L RDW 24.9 H Plt Count 320 MPV 9.7 COVID-19 Source Nasal/Nares Time Spent with Patient Time Spent with Patient: 25-34 minutes Time was spent: preparing to see the patient(eg.review tests), ordering me dications,tests, procedures, indepentently interpreting results, counseling the patient and care coordination
[2022-12-31 15:07] LABS: COVID-19 PCR Negative (Negative)
[2022-12-31 15:40] VITALS: BP 129/74; PULSE 95; RESP 16; TEMP 36.8; O2SAT 97
[2022-12-31] MEDS: QUEtiapine 100 MG TAB 50 MG PO (15:42)
[2022-12-31] MEDS: Benzocaine/Menthol LOZG 15/BOX 1 EACH SUC ×2 (16:48→17:08)
[2022-12-31] MEDS: Lidocaine 5% Patch 1 PATCH TP (17:08)
[2022-12-31] MEDS: rOPINIRole 0.5 MG TAB PO (19:56)
[2022-12-31] MEDS: Nystatin 500000 UNITS/5 ML SUSP 5ML CUP PO (19:57)
[2022-12-31] MEDS: Mirtazapine 15 MG TAB PO (19:57)
[2022-12-31 20:00] VITALS: BP 103/70; PULSE 107; RESP 14; TEMP 36.8; O2SAT 98
[2022-12-31] MEDS: Fluticasone NASAL SPRAY 16 GM BTL NS (20:11)
[2022-12-31] MEDS: Insulin Glargine 300 UNITS/3 ML PEN 25 UNITS SC (20:53)
[2022-12-31 23:00] VITALS: BP 102/66; PULSE 93; RESP 16; TEMP 36.6; O2SAT 98
[2023-01-01] MEDS: traMADol 50 MG TAB PO ×2 (02:44→09:16)
[2023-01-01] MEDS: CEFEPIME 2 GM in Normal Saline 100 ML IVPB ×2 (02:46→10:26)
[2023-01-01] MEDS: Benzocaine/Menthol LOZG 15/BOX 1 EACH SUC (02:47)
[2023-01-01 03:36] VITALS: BP 117/69; PULSE 92; RESP 18; TEMP 36.8; O2SAT 98
[2023-01-01] MEDS: Lidocaine Patch Removal 1 EACH TP (03:50)
[2023-01-01] MEDS: Levothyroxine 100 MCG TAB PO (05:14)
[2023-01-01 06:52] LABS: Absolute Basophil Count 0.04 10^3/uL (0.0-0.2); Absolute Eosinophil Count 0.19 10^3/uL (0.0-0.7); Absolute Lymphocyte Count 3.97 10^3/uL (1.2-3.4); Absolute Monocyte Count 0.75 10^3/uL (0.1-0.8); Absolute Neutrophil Count 5.38 10^3/uL (1.2-6.7); Basophils % 0.4; Eosinophils % 1.7; HCT 28.9 % (36.0-46.0); HGB 8.6 g/dL (11.2-15.7); Immature Grans % 7.2; Lymphocytes % 35.7; MCH 26.4 pg (27.0-33.0); MCHC 29.8 % (32.0-36.0); MCV 89 fL (80-95); MPV 9.7 fL (8.0-11.0); Monocytes % 6.7; Neutrophils % 48.3; Platelet Count 343 10^3/uL (130-400); RBC 3.26 10^6/uL (3.93-5.22); RDW 25.3 % (11.7-14.6); RDW-SD 76.1 fL; WBC 11.13 10^3/uL (4.4-10.8)
[2023-01-01 07:13] LABS: Anisocytosis 2+; Diff Comment RBC Morph Reviewed
[2023-01-01 07:21] LABS: ALT 22 U/L (14-59); AST 27 U/L (15-37); Albumin 2.9 g/dL (3.4-5.0); Alkaline Phosphatase 56 U/L (46-116); Anion Gap 7.7 mmol/L (3-11); BUN 26 mg/dL (7-18); Bilirubin, Total 0.2 mg/dL (0.2-1.0); CO2 27.3 mmol/L (21.0-32.0); CREATININE 0.8 mg/dL (0.55-1.02); Calcium 9.6 mg/dL (8.5-10.1); Chloride 97 mmol/L (98-107); Estimated GFR 83.26 (mL/min/1.73m2); Glucose 188 mg/dL (74-106); Potassium 4.2 mmol/L (3.5-5.1); Sodium 132 mmol/L (136-145); Total Protein 7.1 g/dL (6.4-8.2)
[2023-01-01 08:09] VITALS: BP 120/67; PULSE 89; RESP 16; TEMP 36.1; O2SAT 100
[2023-01-01 08:09] LABS: Procalcitonin 0.1 ng/mL
[2023-01-01] MEDS: Budesonide/Formoterol 160/4.5 6 GM 60 PUFF INH IH (08:34)
[2023-01-01] MEDS: Ipratropium/Albuterol 4 GM 120 PUFF INH IH ×3 (08:35→15:05)
[2023-01-01] MEDS: Nystatin 500000 UNITS/5 ML SUSP 5ML CUP PO ×2 (08:53→13:18)
[2023-01-01] MEDS: Fluticasone NASAL SPRAY 16 GM BTL NS (08:53)
[2023-01-01] MEDS: Diclofenac 1% Gel 100 GM TUBE TP (08:54)
[2023-01-01] MEDS: lamoTRIgine 25 MG TAB 50 MG PO (08:55)
[2023-01-01] MEDS: predniSONE 20 MG TAB 40 MG PO (08:55)
[2023-01-01] MEDS: Vitamins B Comp w/C TAB 1 TAB PO (08:55)
[2023-01-01] MEDS: Calcium Citrate 950 MG TAB PO (08:55)
[2023-01-01] MEDS: Heparin 5,000 UNITS/ML VIAL 5000 UNITS SC (08:55)
[2023-01-01] MEDS: traZODone 50 MG TAB 25 MG PO (08:56)
[2023-01-01] MEDS: Aspirin E.C. 81 MG TABEC PO (08:56)
[2023-01-01] MEDS: Simethicone 80 MG CHEW PO ×3 (08:56→15:04)
[2023-01-01] MEDS: Omeprazole 20 MG CAPCR PO (08:56)
[2023-01-01] MEDS: LORazepam 0.5 MG TAB PO (08:56)
[2023-01-01] MEDS: Gabapentin 600 MG TAB 1200 MG PO (08:57)
[2023-01-01] MEDS: Carbidopa 25/Levodopa 100 TAB PO ×3 (08:57→15:04)
[2023-01-01] MEDS: Magnesium Oxide 400 MG TAB PO (08:57)
[2023-01-01] MEDS: Cyanocobalamin 500 MCG TAB 1000 MCG PO (08:57)
[2023-01-01] MEDS: buPROPion-XL 150 MG TABCR PO (08:57)
[2023-01-01] MEDS: Loratidine 10 MG TAB PO (08:57)
[2023-01-01] MEDS: Insulin Aspart 300 UNITS/3 ML PEN SC ×2 (09:03→12:52)
[2023-01-01] MEDS: QUEtiapine 100 MG TAB PO (09:12)
[2023-01-01] MEDS: Insulin NPH-Human 300 UNITS/3 ML PEN 30 UNIT SC (09:12)
[2023-01-01 11:33] VITALS: BP 109/63; PULSE 104; RESP 16; TEMP 36.4; O2SAT 98
[2023-01-01] MEDS: QUEtiapine 100 MG TAB 50 MG PO (13:18)
--- NOTE | 2023-01-01 13:26 | W.PM.DS.N ---
Date of service: 01/01/23 Time of Service: 13:26 DS: Diagnosis Discharge Diagnosis (1) PIC line (peripherally inserted central catheter) removal: Status: Acute (2) Klebsiella pneumoniae sepsis: Status: Acute (3) UTI (urinary tract infection): Status: Acute (4) Acute bronchitis: Status: Acute (5) Diarrhea: Status: Acute (6) Hypokalemia: Status: Resolved (7) DALTON (acute kidney injury): Status: Resolved (8) IDDM (insulin dependent diabetes mellitus): (9) Discharge planning issues: Status: Acute Discharge Plan Disposition [facility] Disposition[facility] Condition: Improving Discharge Details Reason For Visit: Septic Shock,Acute PE,Diarrhea,Electrolyte Abnorma Admit Date/Time: 12/24/22 15:50 Admit Provider: Yojana Osorio Attending Provider: Yojana Osorio Primary Care Provider: Agueda Bingham Hospital Course Hospital Course: See admission H&P for details of her presenting complaints/symptoms. Ms Barrera is a 62 year old female with PMHx of chronic constipation on linzess, as well as h/o chronic abdominal pain, h/o CVA w/ aphasia, IDDM2, who was brought to [facility] ED today by ambulance from the [facility] after developing abdominal pain (right lower quadrant) x 5 days and vomiting x 2 days. She has been having diarrhea for two weeks. In the ER, she was found to be hypotensive with BPs 70/40, somewhat fluid responsive, however required initiation of vasopressors and placement of a central line. She was started on empiric vancomycin/cefepime due to a fever, tachycardia, low blood pressure, lactic acidosis with a strong suspicion of a septic shock.? Stool studies were collected. While her CT chest/abdomen/pelvis did not reveal an acute infectious process, it did suggest small pulmonary thrombi in LLL, for which the patient was started on heparin gtt. There was evidence of pulmonary hypertension.? She was also found to have significant electrolyte derangements (potassium, calcium, magnesium were all low and repleted). Hospitalist admission was requested. The patient wants to be full code per my conversation with her. Blood cultures on admission grew Pseudomonas aeruginosa. Patient was treated with cefepime initially 1 g IV every 8 hours this was changed to 2 g every 8 hours after the positive blood culture result. Repeat blood culture from 12/26/2022 showed no growth. Urine culture also grew gram-negative vi. MRSA screen was negative. Patient completed 9 days of parenteral antibiotics. Patient required a midline placed in her left arm which later became nonfunctional and had to be removed. There is no evidence of induration or erythema over the previous midline site. Initially when the patient presented to the hospital she was in septic shock required vasopressors IV fluids as well as placement of a left femoral central venous line. That was later removed and replaced with a left arm midline. Radiologic studies during this admission include abdominal chest and pelvic CT scan done on admission. Patient was found to have a mild right lung infiltrate no pleural effusions no pulmonary emboli per the confirmed radiologic reading by our in house radiologist. Previous right ureteral stent had been removed. Patient had no evidence of hydronephrosis on this study. CT of the neck was performed showed postsurgical changes of the C-spine but no acute abnormality. Esophagus was unremarkable. Follow-up chest x-ray taken on 12/28/2022 because of complaints of cough showed no focal lung consolidations no pleural effusions Patient was initially treated with combination of vancomycin and cefepime but when her urine and blood cultures came back showing Pseudomonas she was just treated them with high-dose cefepime 2 g IV every 8 hours. Patient did well. Blood pressure stabilized and she was transferred out of the intensive care unit on 12/27/2022 and continued to receive treatment with cefepime until the day of her discharge. Follow-up blood cultures on 12/26/2022 showed no growth. No further antibiotics are needed at this point. Home Meds and New Rx's Prescriptions: New HurriCaine 20 % Gel 30 g mucous membrane Q4H PRN PRNQty: 0 0RF dextromethorphan-guaifenesin 10-100 mg/5 mL Syrup 5 ml PO Q4H PRN PRNQty: 0 0RF calcium citrate 200 mg (950 mg) Tablet 950 mg PO BID Qty: 1 0RF Benzocaine/Menthol [Chloraseptic Max] 1 ea SUC Q6H PRN PRNQty: 0 0RF Humulin N NPH Insulin KwikPen 100 unit/mL (3 mL) Insulin Pen 30 unit subcut DAILY Qty: 0 0RF Mckayla Protect (zinc oxide) 12 % Cream 1 applic topical PRN PRNQty: 57 0RF Combivent Respimat 20-100 mcg/actuation Mist 1 puff inhalation QID PRN PRNQty: 0 0RF nystatin 100,000 unit/mL Suspension 500,000 units PO TID 7 Days Qty: 105 0RF prednisone 20 mg Tablet 40 mg PO DAILY Qty: 1 0RF Rx Instructions: 40 mg/d x 5d, 30 mg/d x5d, 20 mg/d x 5d, 15 mg/d x5d, 10 mg/d x 7d, 5 mg/d x 7d Continued trazodone 50 mg tablet 25 mg PO BID metformin 500 mg tablet 1,000 mg PO BID lactase [Lactaid] 3,000 unit tablet 9,000 unit PO TID Rx Instructions: administer with meals and/or snacks simethicone 180 mg capsule 1 cap PO QID PRN cyanocobalamin (vitamin B-12) [Vitamin B-12] 500 mcg Tablet 1,000 mcg PO DAILY Qty: 0 0RF docusate sodium [Colace] 100 mg Capsule 100 mg PO TID PRN PRNQty: 0 0RF insulin aspart U-100 100 unit/mL (3 mL) Insulin Pen See Rx Instructions .ROUTE .COMPLEX Qty: 0 0RF Rx Instructions: novolog per [facility] insulin sensitive sliding scale dextrose [Glutose-15] 40 % Gel 20 g PO DIRECTED PRNQty: 0 0RF Rx Instructions: 20 gm po prn hypoglycemia glycerin (adult) [Fleet Glycerin (Adult)] Suppository 1 supp KS DAILY Qty: 0 0RF insulin aspart U-100 100 unit/mL (3 mL) Insulin Pen 0 units subcut 0800,1200,1700,2200 Qty: 0 0RF lidocaine 5 % Adhesive Patch,Medicated 1 patch topical Q24H Qty: 0 0RF tramadol 50 mg Tablet 50 mg PO Q4H PRN PRNQty: 0 0RF atorvastatin 20 mg Tablet 20 mg PO QPM Qty: 0 0RF docusate sodium [Colace] 100 mg Capsule 100 mg PO .BID, PRN mirtazapine 15 mg Tablet 15 mg PO QHS lamotrigine [Lamictal] 25 mg Tablet 50 mg PO DAILY Qty: 1 0RF quetiapine 100 mg tablet 50 mg PO DAILY Patient Comments: 100 mg BID, 50 mg daily at 2pm polyethylene glycol 3350 [Miralax] 17 gram/dose Powder 17 g PO DAILY PRN aspirin 81 mg Tablet,Delayed Release (Dr/Ec) 81 mg PO DAILY bupropion HCl 150 mg tablet extended release 24 hr 150 mg PO QAM cetirizine 10 mg Tablet 10 mg PO QAM linaclotide 145 mcg Capsule 145 mcg PO DAILY acetaminophen 500 mg Tablet 500 mg PO BID diclofenac sodium 1 % Gel 1 applic TOPICAL BID fluticasone propionate [Flonase Allergy Relief] 50 mcg/actuation Dinosaur,Suspension 1 spray INTRANASAL BID gabapentin 600 mg tablet 2 tab PO BID quetiapine 100 mg Tablet 100 mg PO BID sennosides 8.6 mg Tablet 17.2 mg PO HS PRN Trulicity 1.5 mg/0.5 mL pen injector 1 device SUBCUT DIRECTED Rx Instructions: weekly levothyroxine 100 mcg Tablet 100 mcg PO DAILY nryihyqtitvdv-CD-ugpvyqijkwy 5-10-100 mg/5 mL Liquid 10 ml PO Q4H PRN omeprazole 20 mg Capsule,Delayed Release(Dr/Ec) 20 mg PO DAILY carbidopa-levodopa 25-100 mg Tablet 1 tab PO QID B-complex with vitamin C Capsule 1 cap PO DAILY Centrum Complete 18-400 mg-mcg Tablet 1 tab PO DAILY ropinirole 0.5 mg Tablet 0.5 mg PO QHS Rx Instructions: administer 1-3 hours before bedtime acetaminophen 500 mg Tablet 1,000 mg PO DAILY loratadine 10 mg Capsule 10 mg PO DAILY lorazepam 0.5 mg Tablet 0.5 mg PO BID Changed bisacodyl 10 mg suppository 10 mg KS DAILY PRN PRNQty: 0 0RF albuterol sulfate [Ventolin HFA] 90 mcg/actuation Hfa Aerosol Inhaler 2 puff INHALATION Q4H PRN PRNQty: 0 0RF magnesium oxide 400 mg magnesium Tablet 800 mg PO BIDWMEAL Qty: 0 0RF Discontinued albuterol sulfate [Ventolin HFA] 90 mcg/actuation HFA aerosol inhaler 2 inh INHALATION TID Discharge Instructions Instructions: Urinary Tract Infection in Older Adults (DC) Additional Instructions: Set follow up w/ Dr. Alvarez as per his recommendations. Call his office to set follow up. Activity:: Activity as Tolerated Equipment/Supplies:: No Equipment Needed Diet:: Carb Counting Discharge Orders Discharge Orders: Discharge Order (Routine); Ordered 01/01/23 Ordered By: Jc Jack DS: Summary Time Spent with Patient providing and/or coordinating discharge services: Greater than 30 minutes (45) Specific discharge activities: Interview/exam of patient; review of discharge instructions, completion of prescriptions/discharge instructions; discussion w/ nursing and CM; documentation of hospital visit Status at Discharge Functional status at discharge: bed bound Overall status at discharge: patient is back to baseline Mental Status: mental status grossly normal Speech and Movement: speech and movement normal Mood: congruent mood Affect: normal affect Exam Narrative Exam Narrative: She is alert and oriented sitting up in bed in no acute distress. Oropharynx she is edentulous I did not see a exudates in her mouth or tongue. Lungs with coarse rhonchi that clears with coughing and deep breathing Heart is regular rate and rhythm Abdomen obese soft nontender normal bowel sounds Left arm is not swollen nontender to palpation. Mid line site has a small bruise at the entrance site but there is no discharge. Mid line has been removed Psych Mental Status: mental status grossly normal Speech and Movement: speech and movement normal Mood: congruent mood Affect: normal affect DS: Data Vitals/I&O Vitals and I&O: Vital Signs Temperature 36.4 C L 01/01/23 11:33 Temperature Source Tympanic 01/01/23 11:33 Pulse 104 H 01/01/23 11:33 Pulse Rhythm Regular 01/01/23 09:44 Pulse 90 12/27/22 22:00 Respiratory Rate 16 01/01/23 11:33 Respiratory Effort Normal, Non-Labored 01/01/23 09:44 Respiratory Depth Normal 01/01/23 09:44 Respiratory Pattern Normal 01/01/23 09:44 Blood Pressure 109/63 01/01/23 11:33 Blood Pressure Mean 89 12/27/22 20:00 Blood Pressure Position Supine 12/27/22 15:15 Pulse Oximetry 98 01/01/23 11:33 Respiratory End-tidal CO2 28 12/24/22 17:55 Oxygen Delivery Method Room Air 01/01/23 11:33 Oxygen Flow Rate 0 01/01/23 11:33 Pain Level 7 01/01/23 02:44 Comment HR called over radio 01/01/23 11:33 Intake & Output 12/31/22 01/01/2323 23:59 11:59 23:59 Intake Total 920 / 1020 200 / 200 Output Total 4400 / 5350 900 / 900 Balance -3480 / -4330 -700 / -700 Weight 76 kg Intake: IV 200 / 300 200 / 200 Oral 720 / 720 Output: Urine 4400 / 5350 900 / 900 Other: Urine Color Yellow Yellow Urine Appearance Clear Cloudy Urine Odor None Comment Pure wick device in place and functioning appropriately. pur-wic Stool Size Moderate Stool Characteristics Soft Brown Data Completed and Pending Labs on day of discharge: Labs from last 24 hours 01/01/23 01/01/23 01/01/23 06:04 06:04 06:04 WBC 11.13 H RBC 3.26 L Hgb 8.6 L Hct 28.9 L MCV 89 MCH 26.4 L MCHC 29.8 L RDW 25.3 H Plt Count 343 MPV 9.7 Immature Gran % 7.2 Neutrophils % 48.3 Lymphocytes % 35.7 Monocytes % 6.7 Eosinophils % 1.7 Basophils % 0.4 Nucleated RBC % 0.0 Absolute Neutrophils 5.38 Absolute Lymphocytes 3.97 H Absolute Monocytes 0.75 Absolute Eosinophils 0.19 Absolute Basophils 0.04 RBC Morphology See Below Anisocytosis 2+ Sodium 132 L Potassium 4.2 Chloride 97 L Carbon Dioxide 27.3 Anion Gap 7.7 BUN 26 H Creatinine 0.8 Est GFR (CKD-EPI 2020) 83.26 Glucose 188 H Calcium 9.6 Total Bilirubin 0.2 AST 27 ALT 22 Alkaline Phosphatase 56 C-Reactive Protein 0.30 Total Protein 7.1 Albumin 2.9 L Procalcitonin 0.1 COVID-19 Source SARS-CoV-2 (PCR) 12/31/22 14:01 WBC RBC Hgb Hct MCV MCH MCHC RDW Plt Count MPV Immature Gran % Neutrophils % Lymphocytes % Monocytes % Eosinophils % Basophils % Nucleated RBC % Absolute Neutrophils Absolute Lymphocytes Absolute Monocytes Absolute Eosinophils Absolute Basophils RBC Morphology Anisocytosis Sodium Potassium Chloride Carbon Dioxide Anion Gap BUN Creatinine Est GFR (CKD-EPI 2020) Glucose Calcium Total Bilirubin AST ALT Alkaline Phosphatase C-Reactive Protein Total Protein Albumin Procalcitonin COVID-19 Source Nasal/Nares SARS-CoV-2 (PCR) Negative PFSH All Active Problems PIC line (peripherally inserted central catheter) removal (Acute) Acute bronchitis (Acute) Klebsiella pneumoniae sepsis (Acute) Advanced care planning/counseling discussion (Acute) UTI (urinary tract infection) (Acute) Lactic acid acidosis (Acute) Colon distention (Acute) Septic shock (Acute) Hypotension (Acute) Pulmonary embolism (Chronic) Hypokalemia (Acute) Hypocalcemia (Acute) Hypomagnesemia (Acute) Abdominal pain, vomiting, and diarrhea (Acute) Metabolic acidosis (Acute) Discharge planning issues (Acute) Diarrhea (Acute) Abdominal bloating (Acute) Abdominal pain (Chronic) Pyelonephritis (Acute) Microcytic anemia (Acute) Emphysematous pyelonephritis (Acute) Pyuria due to bacterial urinary tract infection (Acute) Hydronephrosis of right kidney (Acute) Gallstones (Acute) Arthritis of left shoulder region (Acute) Cough (Acute) Ileus (Acute) Tardive dyskinesia (Acute) Parkinsonism (Acute) History of stroke (Acute) Chronic chest pain (Chronic) Constipation (Chronic) Bipolar 1 disorder (Chronic) Bipolar affective disorder, current episode depressed (Acute) rule out bipolar disorder reported by patient. Antiepileptics maybe preventing manic episode. Major depressive disorder, recurrent, severe with psychotic features (Acute) Current presentation is depression. She may have bipolar affective disorder. Ambulatory dysfunction (Chronic) Hemiparesis affecting right side as late effect of cerebrovascular accident (Acute) Dysphagia as late effect of cerebrovascular accident (CVA) (Chronic) Dysarthria as late effect of cerebrovascular accident (CVA) (Acute) Aphasia as late effect of cerebrovascular accident (Acute) Neck pain (Acute) Autoimmune disorder (Acute) Medical History Anxiety Bipolar 1 disorder Cholelithiasis with acute cholecystitis s/p cholecystostomy and stone extraction in 2014 ([facility]), tube now pulled. 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 Complicated UTI (urinary tract infection) Diverticulosis Hemiparesis affecting right side as late effect of cerebrovascular accident (CVA) Hepatitis C History of multiple cerebrovascular accidents (CVAs) Hypertension Hypothyroidism IDDM (insulin dependent diabetes mellitus) Left rotator cuff tear Lumbar disc disease Nephrolithiasis Neurogenic bladder Obesity (BMI 30.0-34.9) Palliative care encounter Staghorn calculus Static encephalopathy Steroid dependent Uterine mass likely a fibroid UTI (urinary tract infection) Surgical History Abnormal cholangiogram H/O cervical spine surgery H/O foot surgery H/O wrist surgery History of extraction of renal calculus 12/13/2018 - [facility] History of hip surgery right History of lumbosacral spine surgery S/P cystoscopy with ureteral stent placement [facility] 11/2018 Status post creation of urethral sling by suprapubic approach Family History Mother Stroke Social History Smoking/Tobacco Use Status: Former Tobacco Use Smoking risk assessment performed?: Yes Alcohol Intake: former Substance use type: former substance user and IV drugs [facility] Number of Children: 5 Education Level: elementary school Details: 6th grade, special ed, left school age 16. Current gender identity: female What is your relationship status?: Panel score (0-1 are the most socially isolated patients): 0 What type of physical activity do you participate in: none Do you feel safe at home: Yes Do you feel safe in your relationship?: Yes Time Spent with Patient Time Spent with Patient: 45-69 minutes Time was spent: preparing to see the patient(eg.review tests), ordering medications,tests, procedures, referring, communicating with other health caretaker resort, indepentently interpreting results, counseling the patient and care coordination
--- NOTE | 2023-01-01 15:00 | PDOC.CMDIS ---
- If Service Date Differs Date of service: 01/01/23 Time of Service: 15:00 LACE Index Scoring Tool - Questions: Length of Stay (in days): 7 - 13 Acuity (Admit via E.D.?): Yes Comorbidities: Cerebrovascular Disease, Diabetes w/o Complication E.D. Visits: 5 - Answers: Total Score: 14 Risk of Readmission: High Risk Care Management Discharge Reason for Hospitalization: Septic shock, acute PE, diarrhea, electrolyte abnormality Discharge Plan: Ginger will return to the [facility] today, where she resides. She will transport via EMS, [facility], coordinated by CM. She will follow up with facility providers and her discharge plan of care. During her inpatient hospitalization, Ginger expressed a desire to relocate to a different facility. CM provided a list of facilities for her to consider, two of which had assisted beds available at that time. CM faxed her referral to both facilities at her request. She will return to the [facility], as she is a assisted resident, and will follow up with the facilities from there, as it is her home. Patient/Family Education Needs: Review discharge instructions and limitations, discussion of self care needs including ask me three. Services Needed at Discharge: Jail Facility ([facility]), Transportation (EMS, [facility])
[2023-01-01] MEDS: Lidocaine 5% Patch 1 PATCH TP (15:04)
--- NOTE | 2023-01-03 17:35 | PT.INDS ---
Date of service: 01/01/23 PT Notes Visit Reasons: Septic Shock,Acute PE,Diarrhea,Electrolyte Abnorma Physical Therapy Inpatient Discharge Summary Date: 01/01/2023 Date of service: 12/27/2022 only This is a clinical summary of care provided for the duration of dates listed above. No charge was made in the completion of this documentation. Referring Doctor: Yojana Osorio MD PT Orders: PT CONSULT: Limited ability Precautions: Standard.? Bed-bound.? Full assist for all transfers. Patient Profile/Admitting Diagnosis:? Ginger is a 62-year-old female long-term care resident of [facility] who presented to the ED on 12/24/2022 due to decreasing oral intake, vomiting, and abdominal pain.? Patient is admitted to the ICU for close monitoring of septic shock, diarrhea, hypokalemia, metabolic acidosis, hypocalcemia, hypomagnesemia, and acute kidney injury. PMHX: All Active Problems?(Updated 12/24/22 @ 18:56 by Marisol Vegas DO) Septic shock (Acute) Hypotension (Acute) Pulmonary embolism (Chronic) Hypokalemia (Acute) Hypocalcemia (Acute) Hypomagnesemia (Acute) Discharge planning issues (Acute) Hypomagnesemia (Acute) Hypocalcemia (Acute) DALTON (acute kidney injury) (Acute) Metabolic acidosis (Acute) Hypokalemia (Acute) Pulmonary embolism (Acute) Diarrhea (Acute) Septic shock (Acute) Abdominal bloating (Acute) Abdominal pain (Chronic) Pyelonephritis (Acute) Microcytic anemia (Acute) Emphysematous pyelonephritis (Acute) Pyuria due to bacterial urinary tract infection (Acute) Hydronephrosis of right kidney (Acute) Gallstones (Acute) Arthritis of left shoulder region (Acute) Cough (Acute) Ileus (Acute) Tardive dyskinesia (Acute) Parkinsonism (Acute) History of stroke (Acute) Chronic chest pain (Chronic) Constipation (Chronic) Bipolar 1 disorder (Chronic) Bipolar affective disorder, current episode depressed (Acute) rule out bipolar disorder reported by patient. Antiepileptics maybe preventing manic episode.Major depressive disorder, recurrent, severe? with psychotic features (Acute) Current presentation is depression.? She may have bipolar affective disorder.Ambulatory dysfunction (Chronic) Hemiparesis affecting right side as late effect of cerebrovascular accident (Acute) Dysphagia as late effect of cerebrovascular accident (CVA) (Chronic) Dysarthria as late effect of cerebrovascular accident (CVA) (Acute) Aphasia as late effect of cerebrovascular accident (Acute) Neck pain (Acute) Autoimmune disorder (Acute) Medical History? DALTON (acute kidney injury) Anxiety Bipolar 1 disorder Cholelithiasis with acute cholecystitis s/p cholecystostomy and stone extraction in 2014 ([facility]), tube now pulled. 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 Abnormal cholangiogram H/O cervical spine surgery H/O foot surgery H/O wrist surgery History of extraction of renal calculus 12/13/2018 - [facility] History of hip surgery right History of lumbosacral spine surgery S/P cystoscopy with ureteral stent placement [facility] 11/2018 Status post creation of urethral sling by suprapubic approach Social History/Home Situation: Bed-bound [facility] resident requiring mechanical lift for all transfers.? Able to feed self with left upper extremity.? Modified independent with grooming after set up.? Total assist with all bed mobility and essential transfers. Equipment Owned/DME: [facility] resident Subjective: NT. See most recent SCIENTIFIC SYSTEMS ANALYST notes. Objective: General Observation: NT. See most recent SCIENTIFIC SYSTEMS ANALYST notes. Mental Status: NT. See most recent SCIENTIFIC SYSTEMS ANALYST notes. Pain: NT. See most recent SCIENTIFIC SYSTEMS ANALYST notes. Vital Signs: NT. See most recent SCIENTIFIC SYSTEMS ANALYST notes. ROM: Right Upper Extremity: ? Grade 3 spasticity, abnormal flexion synergy prominent Left Upper Extremity:? Shoulder Flexion WFL. Shoulder abduction WFL. Elbow flexion WFL. Wrist flexion WFL. Functional opening and closing of hand WFL. Right Lower Extremity: No movement allowed Left Lower Extremity: Hip flexion allows less than 25% of available range of motion. Hip abduction less than 25% of available range of motion. Knee flexion allows about 30 degrees. Ankle dorsiflexion to neutral only. Ankle plantarflexion 10 degrees from neutral. Strength: Right Upper Extremity: Shoulder flexors 0/5. Shoulder abductors 0/5. Elbow flexors 0/5. Elbow extensors 0/5. Gang Ripsaw Operator strong. Left Upper Extremity: Shoulder flexors 4-/5. Shoulder abductors 4-/5. Elbow flexors 4-/5. Elbow extensors 4-/5. Gang Ripsaw Operator strong. Right Lower Extremity: Hip flexors 0/5. Hip abductors 0/5. Knee flexors 0/5. Knee extensors 0/5. Ankle dorsiflexors 0/5. Ankle plantarflexors 0/5. Left Lower Extremity: Hip flexors 2-/5. Hip abductors 2-/5. Knee flexors 2-/5. Knee extensors 2-/5. Ankle dorsiflexors 3-/5. Ankle plantarflexors 3-/5. Bed Mobility/Transfers: Total assist Gait: N/A.? Bed-bound. Balance: Static Sitting: N/A.? Bed-bound. Dynamic Sitting: N/A.? Bed-bound. Static Standing: N/A.? Bed-bound. Dynamic Standing: N/A.? Bed-bound. Special Tests: Mobility Limitations Standardized Measure [facility] 6 clicks Basic Mobility Inpatient Short Form: Raw Score: 6? CMS Score: 100% deficit? ? ? Assessment: Patient presents with clinical signs and symptoms consistent with current/admitting diagnoses that have resulted to mobility limitations, gait instability, generalized weakness, and overall ADL decline as demonstrated by the following impairment level findings: 1.? Decreased strength to B UE/LE major muscle groups with L UE/LE spastic and unable to move 2.? Bed-bound Impairments are contributing to the following functional limitations: 1.? Total dependence with bed mobility skills Goals: Goals X1 week 1.? Patient will demonstrate 100% mastery of left shoulder resistance exercises utilizing yellow Thera-Band after 3 sessions in order to maintain ability to perform feeding and grooming tasks. NOT MET DISCHARGE RECOMMENDATIONS: [] ? Home with no services [] [] ? Home with services [specify] [] ? Home with outpatient PT [] [] ? SNF for continued rehabilitation [] [] ? [facility] [] [] ? SNF versus LTC based on ability to participate and progress [] [X]? Return to SNF when medically cleared by hospitalist TREATMENT CODE/TIME: NC Thank you for the opportunity to participate in the care of this patient. Aydee Medrano PT, DPT, CLT [facility] [place], [place]
== END 2023-01-01 15:31 | disposition skilled nursing facility (03) | DRG 871 ==
LOC: ER 16:48 → ICU 18:06 → MS 12-27 21:58
PROVIDERS: Family Medicine; Internal Medicine; Registered Nurse Emergency; Admitting Provider Internal Medicine; Emergency Provider Physician Assistant; PCP Family Medicine; Visit Provider Internal Medicine
DX: A41.59 Other Gram-negative sepsis (principal); R65.21 Severe sepsis with septic shock; E87.21 Acute metabolic acidosis; I69.351 Hemiplegia and hemiparesis following cerebral infarction affecting right dominant side; N39.0 Urinary tract infection, site not specified; N17.9 Acute kidney failure, unspecified; F33.3 Major depressive disorder, recurrent, severe with psychotic symptoms; A41.4 Sepsis due to anaerobes; E87.6 Hypokalemia; E83.51 Hypocalcemia; E83.42 Hypomagnesemia; B19.20 Unspecified viral hepatitis C without hepatic coma; I10 Essential (primary) hypertension; E03.9 Hypothyroidism, unspecified; N31.9 Neuromuscular dysfunction of bladder, unspecified; Z66 Do not resuscitate; D50.9 Iron deficiency anemia, unspecified; G20 Parkinson's disease; K59.09 Other constipation; I69.322 Dysarthria following cerebral infarction; I69.391 Dysphagia following cerebral infarction; R13.10 Dysphagia, unspecified; D89.89 Other specified disorders involving the immune mechanism, not elsewhere classified; I27.20 Pulmonary hypertension, unspecified; R14.0 Abdominal distension (gaseous); R19.7 Diarrhea, unspecified; K59.81 Ogilvie syndrome; B96.5 Pseudomonas (aeruginosa) (mallei) (pseudomallei) as the cause of diseases classified elsewhere; E11.65 Type 2 diabetes mellitus with hyperglycemia; J20.9 Acute bronchitis, unspecified; Z79.4 Long term (current) use of insulin; Z74.01 Bed confinement status
CPT/HCPCS: 36415; 36591; 70491; 71275; 74177; 76942; 80048; 80053; 80076; 83690; 84145; 85027; 87040; 87077; 87081; 87493; 87505; 87635; 87637; 92610; 93005; 93308; 94640; 96360; 96361; 96365; 96366; 96367; 96375; 97163; 99285; 70450; 71045; 74018; 81003; 81015; 83605; 83735; 84132; 84443; 84484; 85025; 85610; 85730; 86140; 87070; 87086; 87186; 87205; 93010; 93970; 94664; 94667; 94668; 99231; 99232; 99233; 99239; 99291; J0131; J0612; J1170; J1644; J1720; J2060; J2405; J3475; J3480; J3490; J7512; J7614

== ENCOUNTER 2023-01-03 16:58 | Outpatient (REF) | payer MEDICAID, SELFPAY ==
[2023-01-03 17:28] LABS: Abs Immature Grans 0.17 10^3/uL (0.0-0.06); Absolute Basophil Count 0.02 10^3/uL (0.0-0.2); Absolute Eosinophil Count 0.05 10^3/uL (0.0-0.7); Absolute Lymphocyte Count 1.25 10^3/uL (1.2-3.4); Absolute Monocyte Count 0.31 10^3/uL (0.1-0.8); Absolute Neutrophil Count 9.84 10^3/uL (1.2-6.7); Basophils % 0.2; Eosinophils % 0.4; HCT 30.4 % (36.0-46.0); Immature Grans % 1.5; Lymphocytes % 10.7; MCHC 29.6 % (32.0-36.0); MCV 91 fL (80-95); Monocytes % 2.7; Neutrophils % 84.5; Platelet Count 326 10^3/uL (130-400); RBC 3.33 10^6/uL (3.93-5.22); RDW 24.9 % (11.7-14.6); RDW-SD 80.5 fL; WBC 11.64 10^3/uL (4.4-10.8)
[2023-01-03 17:39] LABS: Iron 40 ug/dL (50-170); Total Iron Binding Capacity 253 ug/dL (250-450); Transferrin Sat 16 % (15-50)
[2023-01-03 18:02] LABS: Vitamin D 25 Total 34.8 ng/mL (30-100)
[2023-01-03 18:12] LABS: ALT 27 U/L (14-59); AST 38 U/L (15-37); Albumin 3.4 g/dL (3.4-5.0); Alkaline Phosphatase 66 U/L (46-116); Anion Gap 8.6 mmol/L (3-11); BUN 16 mg/dL (7-18); Bilirubin, Total 0.3 mg/dL (0.2-1.0); CO2 28.4 mmol/L (21.0-32.0); CREATININE 0.8 mg/dL (0.55-1.02); Calcium 9.3 mg/dL (8.5-10.1); Chloride 97 mmol/L (98-107); Estimated GFR 83.26 (mL/min/1.73m2); Ferritin 196 ng/mL (8-252); Folate 14.6 ng/mL (8.6-20.0); Glucose 319 mg/dL (74-106); Potassium 5.1 mmol/L (3.5-5.1); Sodium 134 mmol/L (136-145); TSH (W/Ref FT4) 3.39 uIU/mL (0.36-3.74); Total Protein 7.4 g/dL (6.4-8.2); Vitamin B12 916 pg/mL (193-986)
[2023-01-03 18:24] LABS: Hemoglobin A1C 6.6 % (<5.7)
[2023-01-03 18:43] LABS: NT-proBNP 253 pg/mL (<300)
== END 2023-01-03 16:59 | disposition home or self-care (01) ==
LOC: LBN 16:58
PROVIDERS: PCP Family Medicine; Visit Provider Nurse Practitioner Gerontology
DX: R68.89 Other general symptoms and signs (principal)
CPT/HCPCS: 80053; 80175; 82306; 82607; 82728; 82746; 83036; 83540; 83550; 83735; 83880; 84443; 85025

== ENCOUNTER 2023-01-11 13:22 | Outpatient (REF) | payer MEDICAID, SELFPAY ==
[2023-01-11 13:08] LABS: Abs Immature Grans 0.05 10^3/uL (0.0-0.06); Absolute Basophil Count 0.03 10^3/uL (0.0-0.2); Absolute Eosinophil Count 0.04 10^3/uL (0.0-0.7); Absolute Lymphocyte Count 1.81 10^3/uL (1.2-3.4); Absolute Monocyte Count 0.77 10^3/uL (0.1-0.8); Basophils % 0.3; Eosinophils % 0.4; HCT 34.4 % (36.0-46.0); HGB 10.1 g/dL (11.2-15.7); Immature Grans % 0.5; Lymphocytes % 17.1; MCH 27.2 pg (27.0-33.0); MCHC 29.4 % (32.0-36.0); MCV 93 fL (80-95); MPV 9.3 fL (8.0-11.0); Monocytes % 7.3; Neutrophils % 74.4; Platelet Count 300 10^3/uL (130-400); RBC 3.72 10^6/uL (3.93-5.22); RDW-SD 71.4 fL
[2023-01-11 13:27] LABS: ALT 16 U/L (14-59); AST 14 U/L (15-37); Albumin 3.3 g/dL (3.4-5.0); Alkaline Phosphatase 79 U/L (46-116); BUN 10 mg/dL (7-18); Bilirubin, Total 0.3 mg/dL (0.2-1.0); CREATININE 0.6 mg/dL (0.55-1.02); Calcium 9.7 mg/dL (8.5-10.1); Chloride 102 mmol/L (98-107); Estimated GFR 101.42 (mL/min/1.73m2); Glucose 161 mg/dL (74-106); NT-proBNP 227 pg/mL (<300); Potassium 4.6 mmol/L (3.5-5.1); Sodium 140 mmol/L (136-145); Total Protein 7.4 g/dL (6.4-8.2)
[2023-01-11 13:33] LABS: Anisocytosis 2+; Diff Comment RBC Morph Reviewed; Hypochromasia 2+; Polychromasia Present
== END 2023-01-11 13:23 | disposition home or self-care (01) ==
LOC: LBN 13:22
PROVIDERS: PCP Family Medicine; Visit Provider Nurse Practitioner Gerontology
DX: R68.89 Other general symptoms and signs (principal); E78.49 Other hyperlipidemia
CPT/HCPCS: 80053; 83880; 85025

== ENCOUNTER 2023-02-08 13:10 | Inpatient (IN) | payer MEDICAID, SELFPAY ==
[2023-02-08] VITALS (60 sets, daily range): BP systolic 59–156; BP diastolic 35–93; PULSE 72–190; RESP 6–28; TEMP 38.1–39.7; O2SAT 91–100
--- NOTE | 2023-02-08 13:00 | RT.EKG_ITS ---
APPROVED REPORT Exam: Resting ECG Reason for Exam: CHEST PAIN Patient Location: E HR:113 bpm ECG Measurements Heart Rate 113 AXIS GA 124 P 7 QRSd 88 QRS 4 QT 326 T 17 QTc 447 Conclusion Sinus tachycardia...rate> 99
[2023-02-08 13:40] LABS: Abs Immature Grans 0.07 10^3/uL (0.0-0.06); Absolute Basophil Count 0.02 10^3/uL (0.0-0.2); Absolute Eosinophil Count 0.01 10^3/uL (0.0-0.7); Absolute Lymphocyte Count 1.35 10^3/uL (1.2-3.4); Basophils % 0.2; Eosinophils % 0.1; HCT 29.5 % (36.0-46.0); HGB 8.8 g/dL (11.2-15.7); Immature Grans % 0.6; MCH 26.7 pg (27.0-33.0); MCHC 29.8 % (32.0-36.0); MCV 89 fL (80-95); Monocytes % 6.2; Neutrophils % 80.9; Platelet Count 267 10^3/uL (130-400); RDW 16.7 % (11.7-14.6); RDW-SD 54.6 fL; WBC 11.25 10^3/uL (4.4-10.8)
[2023-02-08 13:40] LABS: Source Nasal/Nares
--- NOTE | 2023-02-08 13:45 | DI.CT_ITS ---
Exam(s) CT ABDOMEN PELVIS W EXAM: CT ABDOMEN PELVIS W CLINICAL HISTORY: pain rlq, ttp, nausea TECHNIQUE: Imaging Protocol: Axial computed tomography images with coronal and sagittal reformatted images were created and reviewed CONTRAST MATERIAL: Intravenous: Omnipaque 350 Contrast volume:100 mL Oral: No COMPARISON: CT CT ABDOMEN PELVIS W from 11/09/[address] ABDOMEN PELVIS WO from 11/20/[address] CHEST PE ABD PELVIS W from 12/24/2022 FINDINGS: The examination is limited due to patient motion artifact. ABDOMEN: Lung Bases: Normal where visualized. Liver: Normal density. No measurable mass. Portal, Superior Mesenteric, and Splenic Veins: Unremarkable. Gallbladder and Biliary Tract: No radiodense calculus or dilation. Pancreas: Normal density, no abnormal calcifications or inflammatory process. Spleen: Normal. Adrenals: No masses seen. Kidneys: Normal size, contour and axis. No radiodense stones or obstructive uropathy. There is a 1.8 cm cyst in the superior pole of the right kidney. It appears of homogeneous low density suggesting a simple cyst. No follow-up is recommended. Abdominal Aorta: Abdominal portion non-dilated. Atherosclerosis is present. Bowel: There is diverticulosis seen in the colon, but no evidence of acute diverticulitis. There are moderately dilated loops of small bowel in the central abdomen with normal caliber distal small zaheer l loops raising the question of small bowel obstruction. Appendix is unremarkable. No bowel wall thi ckening is seen. Peritoneal Cavity: No ascites, collection or mesenteric inflammatory response. No free air. Lymph Nodes: Within normal limits. Bones: Within normal limits for the patient's age. The L5-S1 disc space is unchanged. Soft Tissues: Unremarkable. PELVIS: Bladder: The urinary bladder is incompletely distended. There is a small amount of air in the bladde r. This may be due to recent catheterization please correlate clinically. Reproductive Organs: The uterus is enlarged and lobulated. There is a large 7 by 7 cm uterine mass l ikely reflecting a fibroid. Lymph Nodes: Within normal limits. Bones: Within normal limits for the patient's age. IMPRESSION: 1. Moderately dilated loops of proximal small bowel within normal caliber to distal small bowel. Air -fluid levels are present. The findings are suspicious for small bowel obstruction. 2. Enlarged fibroid uterus. 3. Findings were discussed with Dr. Dennis at 3:30 p.m. on 02/08/2023 RADIATION DOSE DELIVERED: 1,010.28mGy.cm Total DLP DATA REPOSITORY: All CT scans at this facility are submitted to the National Radiology Data Registry (NRDR) Dose Index Registry (DIR) with the [employer] (ACR). RADIATION OPTIMIZATION: All CT scans at this facility use at least one of these dose optimization te chniques: automated exposure control; mA and/or kV adjustment per patient size (includes targeted exa ms where dose is matched to clinical indication); or iterative reconstruction.
[2023-02-08 13:46] LABS: Lactate 4.2 mmol/L (0.6-1.4)
--- NOTE | 2023-02-08 13:48 | W.ED.GENAD ---
Discharge Plan Discharge Details Chief Complaint: GenMedical Primary Care Provider: Agueda Bingham ED Provider: Joseph Dennis [place] Meds and New Rx's Prescriptions: No Action metformin 500 mg tablet 1,000 mg PO BID lactase [Lactaid] 3,000 unit tablet 9,000 unit PO TID Rx Instructions: administer with meals and/or snacks simethicone 180 mg capsule 180 mg PO TID PRN gabapentin 600 mg tablet 600 mg PO BID quetiapine 100 mg tablet 100 mg PO TID Patient Comments: 100 mg BID, 50 mg daily at 2pm trazodone 50 mg tablet 50 mg PO BID lidocaine 5 % adhesive patch,medicated 1 patch topical Q24H Qty: 0 0RF Rx Instructions: 01/19/23 4% patch per med req with [facility] med list. -hb docusate sodium [Colace] 100 mg capsule 200 mg PO .BID, PRN calcium carbonate [Antacid (calcium carbonate)] 200 mg calcium (500 mg) tablet,chewable 200 mg PO Q4H PRN (Reason: dyspepsia) Qty: 30 0RF Orajel 3X Mouth Sores 20-0.1-0.15 % gel 1 applic mucous membrane QID PRN Qty: 5.1 0RF glycerin (adult) [Fleet Glycerin (Adult)] Suppository 1 supp [place] DAILY Qty: 0 0RF tramadol 50 mg Tablet 50 mg PO Q4H PRN PRNQty: 0 0RF Rx Instructions: per [employer] paperwork script stopped 01/31/23 atorvastatin 20 mg Tablet 20 mg PO QPM Qty: 0 0RF lactase [Lactaid] 3,000 unit Tablet 3,000 unit PO ONCE PRN Rx Instructions: administer with meals and/or snacks multivitamin [Multi-Vitamins] Tablet 1 tab PO DAILY Rx Instructions: Multivit with beta carotene and Iron mirtazapine 15 mg Tablet 15 mg PO QHS lamotrigine [Lamictal] 25 mg Tablet 50 mg PO DAILY Qty: 1 0RF polyethylene glycol 3350 [Miralax] 17 gram/dose Powder 17 g PO DAILY PRN aspirin 81 mg Tablet,Delayed Release (Dr/Ec) 81 mg PO DAILY bupropion HCl 150 mg tablet extended release 24 hr 150 mg PO QAM cetirizine 10 mg Tablet 10 mg PO QAM linaclotide 145 mcg Capsule 145 mcg PO DAILY acetaminophen 500 mg Tablet 500 mg PO BID diclofenac sodium 1 % Gel 1 applic TOPICAL BID fluticasone propionate [Flonase Allergy Relief] 50 mcg/actuation [place],Suspension 1 spray INTRANASAL BID Trulicity 1.5 mg/0.5 mL pen injector 1 device SUBCUT DIRECTED Rx Instructions: weekly levothyroxine 100 mcg Tablet 100 mcg PO DAILY omeprazole 20 mg Capsule,Delayed Release(Dr/Ec) 20 mg PO DAILY carbidopa-levodopa 25-100 mg Tablet 1 tab PO QID B-complex with vitamin C Capsule 1 cap PO DAILY Centrum Complete 18-400 mg-mcg Tablet 1 tab PO DAILY ropinirole 0.5 mg Tablet 0.5 mg PO QHS Rx Instructions: administer 1-3 hours before bedtime lorazepam 0.5 mg Tablet 0.5 mg PO BID Mckayla Protect (zinc oxide) 12 % Cream 1 applic topical PRN PRNQty: 57 0RF albuterol sulfate [Ventolin HFA] 90 mcg/actuation Hfa Aerosol Inhaler 2 puff INHALATION Q4H PRN PRNQty: 0 0RF magnesium oxide 400 mg magnesium Tablet 800 mg PO BIDWMEAL Qty: 0 0RF Medical Decision Making 1400 --62-year-old female with multiple medical problems including history of CVA with residual right-sided hemiparesis, parkinsons, insulin-dependent diabetes, here with nausea and vomiting and right-sided abdominal pain today. Generally not feeling over the past week. Patient is tender in her right lower abdomen. Patient is tachycardic, hypotensive and with low-grade fever. Concern for potential sepsis. Stat lactate elevated at 4.2. Blood cultures pending. I will initiate fluid resuscitation. Concern for potential intra-abdominal source and acute surgical process. Plan to obtain CT of the abdomen pelvis. EKG was reviewed and interpreted by me: Please report, sinus tachycardia 113 bpm, normal axis, nondiagnostic. 1540 --Labs were reviewed and leukocytosis noted. Chronic anemia noted. Mild anion gap acidosis. Mild hypomagnesemia. CT of the abdomen pelvis was reviewed and interpreted by radiology who I spoke with: Normal appendix, small bowel obstruction is present. Patient reassessed and remains hypotensive. She is yet to complete IV fluid bolus. Discussed with nursing who will ensure bolus completed stat and recheck vitals. Repeat lactate pending. I called and spoke with Dr. Hilliard, on-call general surgeon, he will evaluate the patient. He recommends initiating broad-spectrum antibiotic coverage. I will give Levaquin and Flagyl given allergies. Lab Data Lab results reviewed: Yes I reviewed the patient's lab results. Labs: 02/08/23 14:05 Blood Blood Culture - Pending 02/08/23 13:56 Blood Blood Culture - Pending Laboratory Tests Range/Units 02/08/23 02/08/23 02/08/23 09:33 13:32 13:32 WBC (4.4-10.8) 10^3/uL RBC (3.93-5.22) 10^6/uL Hgb (11.2-15.7) g/dL Hct (36.0-46.0) % MCV (80-95) fL MCH (27.0-33.0) pg MCHC (32.0-36.0) % RDW (11.7-14.6) % Plt Count (130-400) 10^3/uL MPV (8.0-11.0) fL Immature Gran % Neutrophils % Lymphocytes % Monocytes % Eosinophils % Basophils % Nucleated RBC % (0.0-0.3) % Absolute Neutrophils (1.2-6.7) 10^3/uL Absolute Lymphocytes (1.2-3.4) 10^3/uL Absolute Monocytes (0.1-0.8) 10^3/uL Absolute Eosinophils (0.0-0.7) 10^3/uL Absolute Basophils (0.0-0.2) 10^3/uL VBG Lactate (0.6-1.4) mmol/L 4.2 H* Sodium (136-145) mmol/L 133 L Potassium (3.5-5.1) mmol/L 3.4 L Chloride (98-107) mmol/L 99 Carbon Dioxide (21.0-32.0) mmol/L 20.6 L Anion Gap (3-11) mmol/L 13.4 H BUN (7-18) mg/dL 11 Creatinine (0.55-1.02) mg/dL 1.2 H Est GFR (CKD-EPI 2020) (mL/min/1.73m2) 51.18 Glucose (74-106) mg/dL 281 H Calcium (8.5-10.1) mg/dL 8.7 Magnesium (1.8-2.4) mg/dL 1.6 L Total Bilirubin (0.2-1.0) mg/dL 0.3 AST (15-37) U/L 13 L ALT (14-59) U/L < 6 L Alkaline Phosphatase (46-116) U/L 108 Troponin I (<or=60) ng/L < 50 Total Protein (6.4-8.2) g/dL 7.0 Albumin (3.4-5.0) g/dL 1.8 L COVID-19 Source Nasal/Nares SARS-CoV-2 (PCR) (Negative) Negative Range/Units 02/08/23 13:32 WBC (4.4-10.8) 10^3/uL 11.25 H RBC (3.93-5.22) 10^6/uL 3.30 L Hgb (11.2-15.7) g/dL 8.8 L Hct (36.0-46.0) % 29.5 L MCV (80-95) fL 89 MCH (27.0-33.0) pg 26.7 L MCHC (32.0-36.0) % 29.8 L RDW (11.7-14.6) % 16.7 H Plt Count (130-400) 10^3/uL 267 MPV (8.0-11.0) fL 9.0 Immature Gran % 0.6 Neutrophils % 80.9 Lymphocytes % 12.0 Monocytes % 6.2 Eosinophils % 0.1 Basophils % 0.2 Nucleated RBC % (0.0-0.3) % 0.0 Absolute Neutrophils (1.2-6.7) 10^3/uL 9.10 H Absolute Lymphocytes (1.2-3.4) 10^3/uL 1.35 Absolute Monocytes (0.1-0.8) 10^3/uL 0.70 Absolute Eosinophils (0.0-0.7) 10^3/uL 0.01 Absolute Basophils (0.0-0.2) 10^3/uL 0.02 VBG Lactate (0.6-1.4) mmol/L Sodium (136-145) mmol/L Potassium (3.5-5.1) mmol/L Chloride (98-107) mmol/L Carbon Dioxide (21.0-32.0) mmol/L Anion Gap (3-11) mmol/L BUN (7-18) mg/dL Creatinine (0.55-1.02) mg/dL Est GFR (CKD-EPI 2020) (mL/min/1.73m2) Glucose (74-106) mg/dL Calcium (8.5-10.1) mg/dL Magnesium (1.8-2.4) mg/dL Total Bilirubin (0.2-1.0) mg/dL AST (15-37) U/L ALT (14-59) U/L Alkaline Phosphatase (46-116) U/L Troponin I (<or=60) ng/L Total Protein (6.4-8.2) g/dL Albumin (3.4-5.0) g/dL COVID-19 Source SARS-CoV-2 (PCR) (Negative) HPI General Mode of arrival: EMS. Date/Time Provider Initiated Documentation: 02/08/23 15:38. Limitations to Documentation: no limitations. Information obtained by: patient and EMS. HPI Narrative: 62-year-old female with multiple medical problems including history of parkinsonism, history of CVA with residual right hemiparesis, bedbound, here with chief complaint of vomiting. Patient notes nausea and vomiting over the past 1 day. She notes she is not keeping anything down and is concerned for dehydration. She also notes some right-sided abdominal pain that started this morning. Pain is moderate. She notes general fatigue and not feeling well over the past week. Patient denies fever. Related Data Home Medications Medication Instructions Recorded Confirmed mirtazapine 15 mg tablet 15 mg PO QHS 03/26/20 02/08/23 lamotrigine 25 mg tablet (Lamictal) 50 mg PO DAILY #1 tab 04/08/20 02/08/23 polyethylene glycol 3350 17 17 g PO DAILY PRN 04/19/20 02/08/23 gram/dose oral powder (Miralax) metformin 500 mg tablet 1,000 mg PO BID 12/20/20 02/08/23 lactase 3,000 unit tablet (Lactaid) 9,000 unit PO TID 06/22/21 01/15/23 acetaminophen 500 mg tablet 500 mg PO BID 06/01/22 02/08/23 aspirin 81 mg tablet,delayed 81 mg PO DAILY 06/01/22 02/08/23 release bupropion HCl 150 mg 24 hr tablet, 150 mg PO QAM 06/01/22 02/08/23 extended release cetirizine 10 mg tablet 10 mg PO QAM 06/01/22 02/08/23 diclofenac sodium 1 % topical gel 1 applic topical BID 06/01/22 02/08/23 dulaglutide 1.5 mg/0.5 mL 1 device subcut DIRECTED 06/01/22 02/08/23 subcutaneous pen injector (Trulicity) fluticasone propionate 50 1 spray intranasal BID 06/01/22 02/08/23 mcg/actuation nasal spray,suspension (Flonase Allergy Relief) linaclotide 145 mcg capsule 145 mcg PO DAILY 06/01/22 01/15/23 B-complex with vitamin C 1 cap PO DAILY 11/09/22 02/08/23 carbidopa 25 mg-levodopa 100 mg 1 tab PO QID 11/09/22 02/08/23 tablet levothyroxine 100 mcg tablet 100 mcg PO DAILY 11/09/22 02/08/23 multivitamin-ferrous 1 tab PO DAILY 11/09/22 01/15/23 fumarate-folic acid 18 mg-400 mcg tablet (Centrum Complete) omeprazole 20 mg capsule,delayed 20 mg PO DAILY 11/09/22 02/08/23 release ropinirole 0.5 mg tablet 0.5 mg PO QHS 11/09/22 02/08/23 atorvastatin 20 mg tablet 20 mg PO QPM #0 tabs 11/28/22 02/08/23 glycerin (adult) (Fleet Glycerin 1 supp [place] DAILY #0 ea 11/28/22 02/08/23 (Adult) rectal suppository) tramadol 50 mg tablet 50 mg PO Q4H PRN PRN #0 tabs 11/28/22 01/15/23 lorazepam 0.5 mg tablet 0.5 mg PO BID 12/24/22 02/08/23 albuterol sulfate 90 mcg/actuation 2 puff inhalation Q4H PRN PRN #0 01/01/23 02/08/23 aerosol inhaler (Ventolin HFA) grams magnesium oxide 800 mg PO BIDWMEAL #0 tabs 01/01/23 02/08/23 zinc oxide 12 % topical cream 1 applic topical PRN PRN #57 grams 01/01/23 02/08/23 (Mckayla Protect (zinc oxide)) benzocaine 20 %-menthol 0.1 %-zinc 1 applic mucous membrane QID PRN 01/19/23 02/08/23 chloride 0.15 % mucosal gel #5.1 grams (Orajel 3X Mouth Sores) calcium carbonate 200 mg calcium 200 mg PO Q4H PRN dyspepsia #30 01/19/23 02/08/23 (500 mg) chewable tablet (Antacid tabs (calcium carbonate)) docusate sodium 100 mg capsule 200 mg PO .BID, PRN 01/19/23 02/08/23 (Colace) gabapentin 600 mg tablet 600 mg PO BID 01/19/23 02/08/23 lidocaine 5 % topical patch 1 patch topical Q24H #0 ea 01/19/23 02/08/23 quetiapine 100 mg tablet 100 mg PO TID 01/19/23 02/08/23 simethicone 180 mg capsule 180 mg PO TID PRN 01/19/23 02/08/23 trazodone 50 mg tablet 50 mg PO BID 01/19/23 02/08/23 lactase 3,000 unit tablet (Lactaid) 3,000 unit PO ONCE PRN 02/08/23 02/08/23 multivitamin 1 tab PO DAILY 02/08/23 02/08/23 Previous Rx's Medication Instructions Recorded lamotrigine 25 mg tablet (Lamictal) 50 mg PO DAILY #1 tab 04/08/20 atorvastatin 20 mg tablet 20 mg PO QPM #0 tabs 11/28/22 glycerin (adult) (Fleet Glycerin 1 supp [place] DAILY #0 ea 11/28/22 (Adult) rectal suppository) tramadol 50 mg tablet 50 mg PO Q4H PRN PRN #0 tabs 11/28/22 albuterol sulfate 90 mcg/actuation 2 puff inhalation Q4H PRN PRN #0 01/01/23 aerosol inhaler (Ventolin HFA) grams magnesium oxide 800 mg PO BIDWMEAL #0 tabs 01/01/23 zinc oxide 12 % topical cream 1 applic topical PRN PRN #57 grams 01/01/23 (Mckayla Protect (zinc oxide)) benzocaine 20 %-menthol 0.1 %-zinc 1 applic mucous membrane QID PRN 01/19/23 chloride 0.15 % mucosal gel #5.1 grams (Orajel 3X Mouth Sores) calcium carbonate 200 mg calcium 200 mg PO Q4H PRN dyspepsia #30 01/19/23 (500 mg) chewable tablet (Antacid tabs (calcium carbonate)) lidocaine 5 % topical patch 1 patch topical Q24H #0 ea 01/19/23 Allergies Allergy/AdvReac Type Severity Reaction Status Date / Time naproxen [From Aleve] Allergy Unknown Itching Unverified 12/24/22 13:04 Penicillins Allergy Unknown Itching Unverified 12/24/22 13:04 propoxyphene Allergy Unknown Itching Unverified 12/24/22 13:04 Sulfa (Sulfonamide Allergy Unknown Itching Unverified 12/24/22 13:04 Antibiotics) methadone Allergy Verified 12/24/22 13:04 General Stated Complaint: GenMedical RUBENS: 3 Review of Systems All systems reviewed & are unremarkable except as noted in HPI and below Constitutional Constitutional: Reports as per HPI Gastrointestinal Gastrointestinal: Reports as per HPI, Reports abdominal pain and Reports vomiting PFSH All Active Problems Advanced care planning/counseling discussion (Acute) Gallstones (Acute) Tardive dyskinesia (Acute) Parkinsonism (Acute) History of stroke (Acute) Bipolar 1 disorder (Chronic) Bipolar affective disorder, current episode depressed (Acute) rule out bipolar disorder reported by patient. Antiepileptics maybe preventing manic episode. Major depressive disorder, recurrent, severe with psychotic features (Acute) Current presentation is depression. She may have bipolar affective disorder. Ambulatory dysfunction (Chronic) Hemiparesis affecting right side as late effect of cerebrovascular accident (Acute) Dysphagia as late effect of cerebrovascular accident (CVA) (Chronic) Dysarthria as late effect of cerebrovascular accident (CVA) (Acute) Medical History Abdominal bloating Abdominal pain Acute bronchitis Anxiety Aphasia as late effect of cerebrovascular accident Arthritis of left shoulder region Autoimmune disorder Bipolar 1 disorder Cholelithiasis with acute cholecystitis s/p cholecystostomy and stone extraction in 2014 ([facility]), tube now pulled. 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 insufficiency Chronic chest pain [employer] vasculitis Colon distention Complicated UTI (urinary tract infection) Constipation Cough Diarrhea Diverticulosis Emphysematous pyelonephritis Hemiparesis affecting right side as late effect of cerebrovascular accident (CVA) Hepatitis C History of multiple cerebrovascular accidents (CVAs) Hydronephrosis of right kidney Hypertension Hypothyroidism IDDM (insulin dependent diabetes mellitus) Ileus Left rotator cuff tear Lumbar disc disease Microcytic anemia Neck pain Nephrolithiasis Neurogenic bladder Obesity (BMI 30.0-34.9) Palliative care encounter Pyelonephritis Pyuria due to bacterial urinary tract infection [place]aghorn calculus Static encephalopathy Steroid dependent Uterine mass likely a fibroid UTI (urinary tract infection) UTI (urinary tract infection) Surgical History Abnormal cholangiogram H/O cervical spine surgery H/O foot surgery H/O wrist surgery History of [facility] of [facility] calculus [facility] History of hip surgery right History of lumbosacral spine surgery S/P cystoscopy with ureteral stent placement [facility] 11/2018 Status post creation of urethral sling by suprapubic approach Family History Mother Stroke Social History Smoking/Tobacco Use Status: Former Tobacco Use Smoking risk assessment performed?: Yes Alcohol Intake: former Substance use type: former substance user and IV drugs Housing: [facility] Number of Children: 5 Education Level: elementary school Details: 6th grade, special ed, left school age 16. Current gender identity: female What is your relationship status?: Panel score (0-1 are the most socially isolated patients): 0 What type of physical activity do you participate in: none Do you feel safe at home: Yes Do you feel safe in your relationship?: Yes Exam Const General: cooperative and no acute distress Nutritional Appearance: obese Orientation: alert and awake HENMT Mouth: mucous membranes dry Eyes Conjunctivae: normal conjunctivae Sclera: normal sclerae Neck Neck: trachea midline and supple Resp Auscultation: clear to auscultation bilaterally, no rales, no rhonchi and no wheezes Cardio Rate: regular rate and not tachycardic Rhythm: regular rhythm GI Palpation: soft, not firm, no guarding, no masses, not rigid and tender in the RLQ and in the RUQ Auscultation: normal bowel sounds Neuro General: patient alert, patient awake, patient oriented x3 and tone normal Other: Right hemiparesis Extrem General: no edema Psych Appearance: grossly normal Mental Status: mental status grossly normal Course Vital Signs Vital signs: Vital Signs Temperature 38.1 C H 02/08/23 13:09 Pulse 115 H 02/08/23 13:09 Respiratory Rate 18 02/08/23 13:09 Blood Pressure 80/50 L 02/08/23 13:09 Pulse Oximetry 91 L 02/08/23 13:09 Temperature 38.1 C H 02/08/23 13:09 Pulse 115 H 02/08/23 13:09 Respiratory Rate 18 02/08/23 13:09 Respiratory Effort Normal 02/08/23 13:15 Blood Pressure 80/50 L 02/08/23 13:09 Pulse Oximetry 91 L 02/08/23 13:09 Oxygen Delivery Method Room Air 02/08/23 13:09 Oxygen Flow Rate 0 02/08/23 13:09 Lab/Test Results Lab/Test Results: 02/08/23 13:29 Blood Blood Culture - Pending 02/08/23 13:29 Blood Blood Culture - Pending Laboratory Tests Range/Units 02/08/23 02/08/23 09:33 13:32 VBG Lactate (0.6-1.4) mmol/L 4.2 H* COVID-19 Source Nasal/Nares
[2023-02-08 14:10] LABS: AST 13 U/L (15-37); Albumin 1.8 g/dL (3.4-5.0); Alkaline Phosphatase 108 U/L (46-116); Anion Gap 13.4 mmol/L (3-11); BUN 11 mg/dL (7-18); Bilirubin, Total 0.3 mg/dL (0.2-1.0); CO2 20.6 mmol/L (21.0-32.0); CREATININE 1.2 mg/dL (0.55-1.02); Calcium 8.7 mg/dL (8.5-10.1); Chloride 99 mmol/L (98-107); Estimated GFR 51.18 (mL/min/1.73m2); Glucose 281 mg/dL (74-106); Magnesium 1.6 mg/dL (1.8-2.4); Potassium 3.4 mmol/L (3.5-5.1); Sodium 133 mmol/L (136-145); Troponin I < 50 ng/L (<or=60)
[2023-02-08 14:31] LABS: ALT < 6 U/L (14-59)
[2023-02-08] MEDS: HYDROmorphone 2 MG/ML SYR 1 MG IVP (14:39)
[2023-02-08] MEDS: Lactated Ringers 1,000 ML 1000 ML IV (14:39)
[2023-02-08] MEDS: Ondansetron 4 MG/2 ML VIAL IVP (14:40)
[2023-02-08 14:49] LABS: COVID-19 PCR Negative (Negative)
[2023-02-08] MEDS: Normal Saline Flush 10 ML SYR IVP (14:53)
[2023-02-08] MEDS: Normal Saline - Diluent 50 ML VIAL IJ (14:54)
[2023-02-08] MEDS: Omnipaque 350 MG/ML 100 ML BTL IJ (14:55)
--- NOTE | 2023-02-08 16:15 | DI.RAD_ITS ---
Exam(s) XR PORTABLE CHEST AP EXAM: XR PORTABLE CHEST AP CLINICAL HISTORY: fever TECHNIQUE: 2D digital imaging was performed of the chest. One image was obtained. An AP view was ob tained. COMPARISON: CR,XR XR PORTABLE CHEST AP from 12/28/2022 FINDINGS: There is poor inspiration causing crowding of the pulmonary vasculature. This also appears to extend joint the mediastinum and heart size. MEDIASTINUM: Normal. HEART: Normal. PULMONARY VASCULATURE: Normal. LUNGS: No definite focal consolidating infiltrates are seen. There are prominent interstitial markin gs in the lungs bilaterally left greater than right. This may be accentuated by the poor inspiration . A perihilar infiltrate cannot be excluded. PLEURAL SPACE: No pleural effusion or pneumothorax. BONE:Within normal limits for the patient's age. OTHER FINDINGS:Normal. IMPRESSION: 1. Examination limited by poor inspiration. 2. Prominent interstitial markings, left greater than right. This may be crowding of the pulmonary v asculature and interstitium accentuated by the poor inspiration but infiltrate or edema cannot be exc luded. DATA REPOSITORY: RADIATION DOSE DELIVERED:
[2023-02-08 16:28] LABS: Lactate 1.8 mmol/L (0.6-1.4)
[2023-02-08] MEDS: metroNIDAZOLE 500 MG/100 ML BAG 100 MG IVPB (16:29)
[2023-02-08 16:37] LABS: Bilirubin Negative (Negative); Blood Trace-intact (Negative); Clarity Clear (Clear); Glucose Negative (Negative); Ketones Negative (Negative); Leukocyte Esterase Small (Negative); Nitrite Negative (Negative); Specific Gravity <= 1.005 (1.005-1.025); Urobilinogen 0.2 mg/dL (Up to 0.2)
[2023-02-08] MEDS: Normal Saline 1,000 ML 1000 ML IV (16:43)
[2023-02-08 16:44] LABS: Bacteria Rare HPF (Negative); C & S Indicated? Yes; Casts Negative LPF (Negative); Crystals Negative HPF (Negative); Epithelial Cells Rare HPF (Negative); Mucus Negative (Negative); RBC 0-2 HPF (0-2)
[2023-02-08] MEDS: ACETAMINOPHEN 1,000 MG/100 ML BTL 400 MG IVPB (17:13)
--- NOTE | 2023-02-08 17:30 | DI.VRAD_ITS ---
PROCEDURE INFORMATION: Exam: XR Chest Exam date and time: 02/08/2023 16:56 Age: 62 years old Clinical indication: Fever TECHNIQUE: Imaging protocol: Radiologic exam of the chest. Views: 1 view. COMPARISON: CR XR PORTABLE CHEST AP 12/28/2022 17:00 FINDINGS: Lungs: No airspace consolidation. Pleural spaces: No pleural effusion. No pneumothorax. Heart/Mediastinum: Mild cardiomegaly with mild central vascular and interstitial crowding, all likely accentuated by technique. Bones/joints: Cervical spine fixation hardware is partially assessed. No displaced fracture. IMPRESSION: Mild cardiomegaly with mild central vascular and interstitial crowding, all likely accentuated by technique. Dictated and Authenticated by: Sissy Cooper MD. Ordering:KATHY Ruiz MD
[2023-02-08] MEDS: levoFLOXacin 750 MG/150 ML BAG 100 MG IVPB (17:37)
--- NOTE | 2023-02-08 17:47 | W.EDPROG ---
Date of service: 02/08/23 Time of Service: 17:[address] Hilliard from surgery evaluated the pt and doesn't feel this is surgical will consult and follow but requests medical admission, her bp has improved slightly to 94/62, awake and conversant. Her clinical picture seems consistent with sepsis, ua possible source. Discussed with Dr. Jack who accepts for admission Sign Out Sign Out Data: Sign Out Comment: Patient is presenting with abdominal pain, nausea and vomiting. Tachycardic and hypotensive on arrival. Lactate elevated. CT of the abdomen pelvis revealed small bowel obstruction. Patient receiving IV fluid bolus. She is hypotensive and may require additional IV fluid bolus. Patient to receive IV Levaquin and metronidazole. Patient to be seen by general surgery. Please follow-up on surgery evaluation. Last updated by Joseph Dennis MD at 02/08/23 15:43 Discharge Plan Disposition Patient Disposition: Admit to [facility] Condition: Serious Discharge Details Chief Complaint: GenMedical Clinical Impression: Sepsis Primary Care Provider: Agueda Bingham ED Provider: Chance Power [place] Meds and New Rx's Prescriptions: No Action metformin 500 mg tablet 1,000 mg PO BID lactase [Lactaid] 3,000 unit tablet 9,000 unit PO TID Rx Instructions: administer with meals and/or snacks simethicone 180 mg capsule 180 mg PO TID PRN gabapentin 600 mg tablet 600 mg PO BID quetiapine 100 mg tablet 100 mg PO TID Patient Comments: 100 mg BID, 50 mg daily at 2pm trazodone 50 mg tablet 50 mg PO BID lidocaine 5 % adhesive patch,medicated 1 patch topical Q24H Qty: 0 0RF Rx Instructions: 01/19/23 4% patch per med req with [facility] med list. -hb docusate sodium [Colace] 100 mg capsule 200 mg PO .BID, PRN calcium carbonate [Antacid (calcium carbonate)] 200 mg calcium (500 mg) tablet,chewable 200 mg PO Q4H PRN (Reason: dyspepsia) Qty: 30 0RF Orajel 3X Mouth Sores 20-0.1-0.15 % gel 1 applic mucous membrane QID PRN Qty: 5.1 0RF glycerin (adult) [Fleet Glycerin (Adult)] Suppository 1 supp [place] DAILY Qty: 0 0RF tramadol 50 mg Tablet 50 mg PO Q4H PRN PRNQty: 0 0RF Rx Instructions: per [facility] paperwork script stopped 01/31/23 atorvastatin 20 mg Tablet 20 mg PO QPM Qty: 0 0RF lactase [Lactaid] 3,000 unit Tablet 3,000 unit PO ONCE PRN Rx Instructions: administer with meals and/or snacks multivitamin [Multi-Vitamins] Tablet 1 tab PO DAILY Rx Instructions: Multivit with beta carotene and Iron mirtazapine 15 mg Tablet 15 mg PO QHS lamotrigine [Lamictal] 25 mg Tablet 50 mg PO DAILY Qty: 1 0RF polyethylene glycol 3350 [Miralax] 17 gram/dose Powder 17 g PO DAILY PRN aspirin 81 mg Tablet,Delayed Release (Dr/Ec) 81 mg PO DAILY bupropion HCl 150 mg tablet extended release 24 hr 150 mg PO QAM cetirizine 10 mg Tablet 10 mg PO QAM linaclotide 145 mcg Capsule 145 mcg PO DAILY acetaminophen 500 mg Tablet 500 mg PO BID diclofenac sodium 1 % Gel 1 applic TOPICAL BID fluticasone propionate [Flonase Allergy Relief] 50 mcg/actuation [place],Suspension 1 spray INTRANASAL BID Trulicity 1.5 mg/0.5 mL pen injector 1 device SUBCUT DIRECTED Rx Instructions: weekly levothyroxine 100 mcg Tablet 100 mcg PO DAILY omeprazole 20 mg Capsule,Delayed Release(Dr/Ec) 20 mg PO DAILY carbidopa-levodopa 25-100 mg Tablet 1 tab PO QID B-complex with vitamin C Capsule 1 cap PO DAILY Centrum Complete 18-400 mg-mcg Tablet 1 tab PO DAILY ropinirole 0.5 mg Tablet 0.5 mg PO QHS Rx Instructions: administer 1-3 hours before bedtime lorazepam 0.5 mg Tablet 0.5 mg PO BID Mckayla Protect (zinc oxide) 12 % Cream 1 applic topical PRN PRNQty: 57 0RF albuterol sulfate [Ventolin HFA] 90 mcg/actuation Hfa Aerosol Inhaler 2 puff INHALATION Q4H PRN PRNQty: 0 0RF magnesium oxide 400 mg magnesium Tablet 800 mg PO BIDWMEAL Qty: 0 0RF
[2023-02-08 17:53] LABS: Lactate 0.7 mmol/L (0.6-1.4)
[2023-02-08 18:16] LABS: Troponin I < 50 ng/L (<or=60)
--- NOTE | 2023-02-08 18:19 | W.PM.HP.N ---
Date of service: 02/08/23 Time of Service: 18:19 Assessment and Plan Assessment and plan (1) Sepsis: Status: Acute Assessment and plan: etiology is likely GI, possibly C diff vs secondary to SBO. I discussed case w/ Dr. Hilliard, he is not convinced that she is obstructed; he indicated that clear liquids would be ok tonight but if she is not tolerant and has vomiting then NPO and obtain gastrograffin study in the morning. Continue iv fluid hydration and hemodynamic support w/ N.E. and broad spectrum antibiotics: cefepime and flagyl (flagyl to cover for C diff otherwise cefepime alone would be adequate for bowel organisms. UA does not look suspicious for UTI and there is no evidence for pyelonephritis or obstructive uropathy on her CT scan. CVP line has been placed d/t her poor iv access and need for vasopressors. Titrate N.E. to MAP 65 mm. Critical care time spent interviewing and examining the patient, reviewing studies, discussing case with patient's nurse and consulting physicians was 60 minutes, outside of time spent performing CVP line placement. (2) Small bowel obstruction: Status: Acute Assessment and plan: as above. repeat KUB in the morning. surgical consult obtained. (3) Abdominal pain: Assessment and plan: will give her low dose narcotics for pain control. avoid NSAID in setting of hypotension d/t risk of DALTON (4) Bipolar 1 disorder: Status: Chronic Assessment and plan: if able to tolerate po liquids then will give her home meds (5) Parkinsonism: Status: Acute (6) Tardive dyskinesia: Status: Acute (7) Hemiparesis affecting right side as late effect of cerebrovascular accident: Status: Acute (8) DVT prophylaxis: Status: Acute Assessment and plan: enoxaparin SC (9) Discharge planning issues: Status: Acute Assessment and plan: patient is a DNR/DNI, but wants full treament otherwise. When medically stable then she will return to [facility] History of Present Illness Narrative: Ms Barrera is a 62 year old female with PMHx of chronic constipation on linzess, as well as h/o chronic abdominal pain, h/o CVA w/ aphasia, IDDM2, emphysematous pyelonephritis and nephrolithiasis, who was brought to [facility] ED today by ambulance from the [place] after developing abdominal pain?RLQ, nausea and vomiting. Patient was found to be hypotensive and tachycardic (BP 80/50 and remained hypotensive after 2 liters of iv fluids, HR 115 bpm which came down after iv fluids). CT of the abdomen and pelvis suggested SBO w/ moderately dilated loops of distal small bowel and an enlarged uterine fibroid. Labs were remarkable for leukocytosis 11,250, elevated lactate of 4.2, Hb of 8.8 gm (prior Hb 10.1 gm one month ago), UA was fairly unremarkable, WBC 10-20/hpf, neg. for proteins, ketones, nitrites, small leukocyte esterase, rare bacteria. LFT were normal. Patient received 2 liters of fluids while in the ED, surgical consultation was obtained w/ Dr. Hilliard per ED requests. He indicated to me that he was not convinced of a definite small bowel obstruction. Blood cultures were obtained and patient was started on Levaquin and Flagyl. patient is being admitted to ICU for hemodynamic support, broad spectrum antibiotics. [facility] All Active Problems (Updated 02/08/23 @ 22:58 by Jc Jack MD) Discharge planning issues (Acute) DVT prophylaxis (Acute) Small bowel obstruction (Acute) Sepsis (Acute) Advanced care planning/counseling discussion (Acute) Gallstones (Acute) Tardive dyskinesia (Acute) Parkinsonism (Acute) History of stroke (Acute) Bipolar 1 disorder (Chronic) Bipolar affective disorder, current episode depressed (Acute) rule out bipolar disorder reported by patient. Antiepileptics maybe preventing manic episode. Major depressive disorder, recurrent, severe with psychotic features (Acute) Current presentation is depression. She may have bipolar affective disorder. Ambulatory dysfunction (Chronic) Hemiparesis affecting right side as late effect of cerebrovascular accident (Acute) Dysphagia as late effect of cerebrovascular accident (CVA) (Chronic) Dysarthria as late effect of cerebrovascular accident (CVA) (Acute) Medical History Abdominal bloating Abdominal pain Acute bronchitis Anxiety Aphasia as late effect of cerebrovascular accident Arthritis of left shoulder region Autoimmune disorder Bipolar 1 disorder Cholelithiasis with acute cholecystitis s/p cholecystostomy and stone extraction in 2014 ([facility]), tube now pulled. 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 Colon distention Complicated UTI (urinary tract infection) Constipation Cough Diarrhea Diverticulosis Emphysematous pyelonephritis Hemiparesis affecting right side as late effect of cerebrovascular accident (CVA) Hepatitis C History of multiple cerebrovascular accidents (CVAs) Hydronephrosis of right kidney Hypertension Hypothyroidism IDDM (insulin dependent diabetes mellitus) Ileus Left rotator cuff tear Lumbar disc disease Microcytic anemia Neck pain Nephrolithiasis Neurogenic bladder Obesity (BMI 30.0-34.9) Palliative care encounter Pyelonephritis Pyuria due to bacterial urinary tract infection Staghorn calculus Static encephalopathy Steroid dependent Uterine mass likely a fibroid UTI (urinary tract infection) UTI (urinary tract infection) Surgical History Abnormal cholangiogram H/O cervical spine surgery H/O foot surgery H/O wrist surgery History of [facility] of renal calculus [facility] History of hip surgery right History of lumbosacral spine surgery S/P cystoscopy with ureteral stent placement [facility] 11/2018 Status post creation of urethral sling by suprapubic approach Family History Mother Stroke Social History Smoking/Tobacco Use Status: Former Tobacco Use Smoking risk assessment performed?: Yes Alcohol Intake: former Substance use type: former substance user and IV drugs Housing: correction Number of Children: 5 Education Level: elementary school Details: 6th grade, special ed, left school age 16. Current gender identity: female What is your relationship status?: Panel score (0-1 are the most socially isolated patients): 0 What type of physical activity do you participate in: none Do you feel safe at home: Yes Do you feel safe in your relationship?: Yes Meds Allergies and Home Medications Allergies Allergy/AdvReac Type Severity Reaction Status Date / Time naproxen [From Aleve] Allergy Unknown Itching Unverified 12/24/22 13:04 Penicillins Allergy Unknown Itching Unverified 12/24/22 13:04 propoxyphene Allergy Unknown Itching Unverified 12/24/22 13:04 Sulfa (Sulfonamide Allergy Unknown Itching Unverified 12/24/22 13:04 Antibiotics) methadone Allergy Verified 12/24/22 13:04 Home Medications Medication Instructions Recorded Confirmed Type mirtazapine 15 mg tablet 15 mg PO QHS 03/26/20 02/08/23 History lamotrigine 25 mg tablet (Lamictal) 50 mg PO DAILY #1 tab 04/08/20 02/08/23 Rx polyethylene glycol 3350 17 17 g PO DAILY PRN 04/19/20 02/08/23 History gram/dose oral powder (Miralax) metformin 500 mg tablet 1,000 mg PO BID 12/20/20 02/08/23 History lactase 3,000 unit tablet (Lactaid) 9,000 unit PO TID 06/22/21 01/15/23 History acetaminophen 500 mg tablet 500 mg PO BID 06/01/22 02/08/23 History aspirin 81 mg tablet,delayed 81 mg PO DAILY 06/01/22 02/08/23 History release bupropion HCl 150 mg 24 hr tablet, 150 mg PO QAM 06/01/22 02/08/23 History extended release cetirizine 10 mg tablet 10 mg PO QAM 06/01/22 02/08/23 History diclofenac sodium 1 % topical gel 1 applic topical BID 06/01/22 02/08/23 History dulaglutide 1.5 mg/0.5 mL 1 device subcut DIRECTED 06/01/22 02/08/23 History subcutaneous pen injector (Trulicity) fluticasone propionate 50 1 spray intranasal BID 06/01/22 02/08/23 History mcg/actuation nasal spray,suspension (Flonase Allergy Relief) linaclotide 145 mcg capsule 145 mcg PO DAILY 06/01/22 01/15/23 History B-complex with vitamin C 1 cap PO DAILY 11/09/22 02/08/23 History carbidopa 25 mg-levodopa 100 mg 1 tab PO QID 11/09/22 02/08/23 History tablet levothyroxine 100 mcg tablet 100 mcg PO DAILY 11/09/22 02/08/23 History multivitamin-ferrous 1 tab PO DAILY 11/09/22 01/15/23 History fumarate-folic acid 18 mg-400 mcg tablet (Centrum Complete) omeprazole 20 mg capsule,delayed 20 mg PO DAILY 11/09/22 02/08/23 History release ropinirole 0.5 mg tablet 0.5 mg PO QHS 11/09/22 02/08/23 History atorvastatin 20 mg tablet 20 mg PO QPM #0 tabs 11/28/22 02/08/23 Rx glycerin (adult) (Fleet Glycerin 1 supp SC DAILY #0 ea 11/28/22 02/08/23 Rx (Adult) rectal suppository) tramadol 50 mg tablet 50 mg PO Q4H PRN PRN #0 tabs 11/28/22 01/15/23 Rx lorazepam 0.5 mg tablet 0.5 mg PO BID 12/24/22 02/08/23 History albuterol sulfate 90 mcg/actuation 2 puff inhalation Q4H PRN PRN #0 01/01/23 02/08/23 Rx aerosol inhaler (Ventolin HFA) grams magnesium oxide 800 mg PO BIDWMEAL #0 tabs 01/01/23 02/08/23 Rx zinc oxide 12 % topical cream 1 applic topical PRN PRN #57 grams 01/01/23 02/08/23 Rx (Mckayla Protect (zinc oxide)) benzocaine 20 %-menthol 0.1 %-zinc 1 applic mucous membrane QID PRN 01/19/23 02/08/23 Rx chloride 0.15 % mucosal gel #5.1 grams (Orajel 3X Mouth Sores) calcium carbonate 200 mg calcium 200 mg PO Q4H PRN dyspepsia #30 01/19/23 02/08/23 Rx (500 mg) chewable tablet (Antacid tabs (calcium carbonate)) docusate sodium 100 mg capsule 200 mg PO .BID, PRN 01/19/23 02/08/23 History (Colace) gabapentin 600 mg tablet 600 mg PO BID 01/19/23 02/08/23 History lidocaine 5 % topical patch 1 patch topical Q24H #0 ea 01/19/23 02/08/23 Rx quetiapine 100 mg tablet 100 mg PO TID 01/19/23 02/08/23 History simethicone 180 mg capsule 180 mg PO TID PRN 01/19/23 02/08/23 History trazodone 50 mg tablet 50 mg PO BID 01/19/23 02/08/23 History lactase 3,000 unit tablet (Lactaid) 3,000 unit PO ONCE PRN 02/08/23 02/08/23 History multivitamin 1 tab PO DAILY 02/08/23 02/08/23 History Exam Narrative Exam Narrative: Ginger is alert and oriented person place time circumstance. She is anxious and tremulous. HEENT is remarkable for dry mucous membranes, edentulous; no exudates. Neck is supple nontender no JVD neck veins are flat. Carotid pulses are normal no bruits no thyromegaly no cervical adenopathy Lungs are clear to auscultation Heart is regular rate and rhythm no appreciable murmur rub Abdomen soft slightly distended with high-pitched bowel sounds with more focalized tenderness to right lower quadrant no rebound tenderness no involuntary guarding no palpable masses or bruits Lower extremities without peripheral cyanosis or edema, pedal pulses were not palpable but were able to be obtained by doppler exam. Neuro exam patient has right hemiplegia w/ contracted right arm and hand as well as contracted right foot, speech is slightly dysarthric but intelligible, she is at her baseline, cognition is intact Results Labs 02/08/23 13:32 02/08/23 20:38 Labs: Laboratory Results - last 24 hr 02/08/23 02/08/23 02/08/23 09:33 13:32 13:32 WBC RBC Hgb Hct MCV MCH MCHC RDW Plt Count MPV Immature Gran % Neutrophils % Lymphocytes % Monocytes % Eosinophils % Basophils % Nucleated RBC % Absolute Neutrophils Absolute Lymphocytes Absolute Monocytes Absolute Eosinophils Absolute Basophils VBG Lactate 4.2 H* Sodium 133 L Potassium 3.4 L Chloride 99 Carbon Dioxide 20.6 L Anion Gap 13.4 H BUN 11 Creatinine 1.2 H Est GFR (CKD-EPI 2020) 51.18 Glucose 281 H Calcium 8.7 Magnesium 1.6 L Total Bilirubin 0.3 AST 13 L ALT < 6 L Alkaline Phosphatase 108 Troponin I < 50 Total Protein 7.0 Albumin 1.8 L Urine Color Urine Clarity Urine pH Ur Specific [place] Urine Protein Urine Ketones Urine Blood Urine Nitrite Urine Bilirubin Urine Urobilinogen Ur Leukocyte Esterase Urine RBC Urine WBC Ur Epithelial Cells Urine Crystals Urine Bacteria Urine Casts Urine Mucus Ur Culture Indicated? Urine Glucose COVID-19 Source Nasal/Nares SARS-CoV-2 (PCR) Negative 02/08/23 02/08/23 02/08/23 13:32 16:24 16:28 WBC 11.25 H RBC 3.30 L Hgb 8.8 L Hct 29.5 L MCV 89 MCH 26.7 L MCHC 29.8 L RDW 16.7 H Plt Count 267 MPV 9.0 Immature Gran % 0.6 Neutrophils % 80.9 Lymphocytes % 12.0 Monocytes % 6.2 Eosinophils % 0.1 Basophils % 0.2 Nucleated RBC % 0.0 Absolute Neutrophils 9.10 H Absolute Lymphocytes 1.35 Absolute Monocytes 0.70 Absolute Eosinophils 0.01 Absolute Basophils 0.02 VBG Lactate 1.8 H Sodium Potassium Chloride Carbon Dioxide Anion Gap BUN Creatinine Est GFR (CKD-EPI 2020) Glucose Calcium Magnesium Total Bilirubin AST ALT Alkaline Phosphatase Troponin I Total Protein Albumin Urine Color Yellow Urine Clarity Clear Urine pH 6.0 Ur Specific [place] <= 1.005 Urine Protein Negative Urine Ketones Negative Urine Blood Trace-intact H Urine Nitrite Negative Urine Bilirubin Negative Urine Urobilinogen 0.2 Ur Leukocyte Esterase Small H Urine RBC 0-2 Urine WBC 10-20 H Ur Epithelial Cells Rare Urine Crystals Negative Urine Bacteria Rare Urine Casts Negative Urine Mucus Negative Ur Culture Indicated? Yes Urine Glucose Negative COVID-19 Source SARS-CoV-2 (PCR) 02/08/23 02/08/23 17:48 17:48 WBC RBC Hgb Hct MCV MCH MCHC RDW Plt Count MPV Immature Gran % Neutrophils % Lymphocytes % Monocytes % Eosinophils % Basophils % Nucleated RBC % Absolute Neutrophils Absolute Lymphocytes Absolute Monocytes Absolute Eosinophils Absolute Basophils VBG Lactate 0.7 Sodium Potassium Chloride Carbon Dioxide Anion Gap BUN Creatinine Est GFR (CKD-EPI 2020) Glucose Calcium Magnesium Total Bilirubin AST ALT Alkaline Phosphatase Troponin I < 50 Total Protein Albumin Urine Color Urine Clarity Urine pH Ur Specific [place] Urine Protein Urine Ketones Urine Blood Urine Nitrite Urine Bilirubin Urine Urobilinogen Ur Leukocyte Esterase Urine RBC Urine WBC Ur Epithelial Cells Urine Crystals Urine Bacteria Urine Casts Urine Mucus Ur Culture Indicated? Urine Glucose COVID-19 Source SARS-CoV-2 (PCR) Last Vital Signs Temp 38.1 C H 02/08/23 13:09 Pulse 79 02/08/23 16:46 Resp 8 L 02/08/23 16:50 BP 82/51 L 02/08/23 16:46 Pulse Ox 91 L 02/08/23 13:09 Time Spent Time spent with Patient: 55-74 minutes Time was spent: preparing to see the patient(eg.review tests), obtaining and/or reviewing separately otained hiistory, ordering medications,tests, procedures, referring, communicating with other health pharmacy care coordinator (Discussion with Dr. Power, ED provider, and Dr. Luis Hilliard general surgeon), indepentently interpreting results, counseling the patient and care coordination
[2023-02-08] MEDS: MAGNESIUM SULFATE 1 GM/100 ML BAG IVPB (19:03)
[2023-02-08] MEDS: Lactated Ringers 1,000 ML 150 ML IV (19:28)
--- NOTE | 2023-02-08 19:56 | SCONE_ITS ---
Date of service: 02/08/23 Time of Service: 19:58 Assessment and Plan Assessment and plan (1) Abdominal pain: Assessment and plan: At least by physical exam, she is not very distended, and is not have striking clinical features of a bowel obstruction. Although the history is a little bit limited by her mental status, she denies any nausea at this time, and cannot recall vomiting today. Furthermore, she had a large liquid bowel movement while in the emergency department. I agree with the CAT scan interpretation, and do see some mild dilation of the small intestine. However, her CAT scan today appears very similar to her previous CAT scans obtained during multiple other visits and hospitalizations. Similarly, the pain that she describes on the right side seems to be consistent through all of her recent healthcare encounters. I think continuing the broad- spectrum antibiotics at this point is very reasonable, and continuing to focus with basic resuscitation is the most reasonable course of action. I do not feel compelled to bring her to the operating room for a laparotomy, which I think would be highly morbid and her absent a specific target for therapy. If she develops any nausea or vomiting overnight, we could perform a Gastrografin challenge to see if we can better delineate if there is truly an obstruction or not. Otherwise, I would follow-up on blood and urine culture since this presentation is very similar to her previous hospitalization (at least in terms of presentation symptoms) where she was diagnosed with urosepsis and Pseudomonas bacteremia. History of Present Illness History of Present Illness Chief Complaint: Abdominal pain Narrative: Ginger 62 years old, and she comes to the emergency department with a chief complaint of abdominal pain. At the time of my evaluation, she denied any nausea or vomiting, but medical records indicate that she may have had several episodes of vomiting, and there are concerns for some dehydration. During my evaluation, she tells me that she has pain on the right side of her abdomen. She does not recall when it started. It is stabbing, and does not radiate. While she was in the emergency department, she was hypotensive, with a lactate of 4.2. She was resuscitated with intravenous fluids. Blood pressure improved. Tachycardia improved. She underwent a CAT scan of the abdomen and pelvis that was interpreted as moderately dilated loops of proximal small bowel that were within normal caliber to the distal small bowel there were some air-fluid levels suspicious for a small bowel obstruction. Incidentally, she has enlarged fi broid uterus. I was asked to see her for bowel obstruction. She tells me that she has gallstones. She denies any surgical history. Her past medical history is most significant for Parkinson's disease, cerebrovascular accident, bipolar disorder, and emphysematous pyelonephritis. Review of Systems Constitutional Constitutional: Reports difficulty sleeping, Reports fatigue, Reports poor appetite and Reports weakness Eyes Eyes: Reports system reviewed and no additional complaints, except as documented ENT Ears, Nose, Mouth, and Throat: Reports system reviewed and no additional complaints, except as documented Cardiovascular Cardiovascular: Denies chest pain and Reports dyspnea on exertion Respiratory Respiratory: Denies chest congestion, Reports cough and Reports dyspnea on exertion Gastrointestinal Gastrointestinal: Reports abdominal pain, Reports diarrhea, Reports nausea and Denies vomiting Genitourinary Comments: She is not able to answer questions about her review of systems Musculoskeletal Comments: As best I can tell she is bedbound Neurologic Neurologic: Reports weakness Endocrine Endocrine: Reports fatigue PFSH All Active Problems Sepsis (Acute) Advanced care planning/counseling discussion (Acute) Gallstones (Acute) Tardive dyskinesia (Acute) Parkinsonism (Acute) History of stroke (Acute) Bipolar 1 disorder (Chronic) Bipolar affective disorder, current episode depressed (Acute) rule out bipolar disorder reported by patient. Antiepileptics maybe preventing manic episode. Major depressive disorder, recurrent, severe with psychotic features (Acute) Current presentation is depression. She may have bipolar affective disorder. Ambulatory dysfunction (Chronic) Hemiparesis affecting right side as late effect of cerebrovascular accident (Acute) Dysphagia as late effect of cerebrovascular accident (CVA) (Chronic) Dysarthria as late effect of cerebrovascular accident (CVA) (Acute) Medical History Abdominal bloating Abdominal pain Acute bronchitis Anxiety Aphasia as late effect of cerebrovascular accident Arthritis of left shoulder region Autoimmune disorder Bipolar 1 disorder Cholelithiasis with acute cholecystitis s/p cholecystostomy and stone extraction in 2014 ([facility]), tube now pulled. 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 insufficiency Chronic chest pain [employer] vasculitis Colon distention Complicated UTI (urinary tract infection) Constipation Cough Diarrhea Diverticulosis Emphysematous pyelonephritis Hemiparesis affecting right side as late effect of cerebrovascular accident (CVA) Hepatitis C History of multiple cerebrovascular accidents (CVAs) Hydronephrosis of right kidney Hypertension Hypothyroidism IDDM (insulin dependent diabetes mellitus) Ileus Left rotator cuff tear Lumbar disc disease Microcytic anemia Neck pain Nephrolithiasis Neurogenic bladder Obesity (BMI 30.0-34.9) Palliative care encounter Pyelonephritis Pyuria due to bacterial urinary tract infection Staghorn calculus Static encephalopathy Steroid dependent Uterine mass likely a fibroid UTI (urinary tract infection) UTI (urinary tract infection) Surgical History Abnormal cholangiogram H/O cervical spine surgery H/O foot surgery H/O wrist surgery [facility] of [facility] History of hip surgery right History of lumbosacral spine surgery S/P cystoscopy with ureteral stent placement [facility] 11/2018 Status post creation of urethral sling by suprapubic approach Family History Mother Stroke Social History Smoking/Tobacco Use Status: Former Tobacco Use Smoking risk assessment performed?: Yes Alcohol Intake: former 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 Current gender identity: female What is your relationship status?: Panel score (0-1 are the most socially isolated patients): 0 What type of physical activity do you participate in: none Do you feel safe at home: Yes Do you feel safe in your relationship?: Yes Exam Const General: cooperative, frail appearing and ill appearing Nutritional Appearance: malnourished Orientation: awake Resp Effort & Inspection: decreased respiratory effort Auscultation: rhonchi GI Inspection: non-distended Palpation: soft, no guarding, no hernias and tender Results Last Vital Signs Temp 100.6 F H 02/08/23 13:09 Pulse 79 02/08/23 16:46 Resp 8 L 02/08/23 16:50 BP 82/51 L 02/08/23 16:46 Pulse Ox 91 L 02/08/23 13:09 Labs 02/08/23 13:32 02/08/23 13:32 Labs: Laboratory Results - last 24 hr 02/08/23 02/08/23 02/08/23 09:33 13:32 13:32 WBC RBC Hgb Hct MCV MCH MCHC RDW Plt Count MPV Immature Gran % Neutrophils % Lymphocytes % Monocytes % Eosinophils % Basophils % Nucleated RBC % Absolute Neutrophils Absolute Lymphocytes Absolute Monocytes Absolute Eosinophils Absolute Basophils VBG Lactate 4.2 H* Sodium 133 L Potassium 3.4 L Chloride 99 Carbon Dioxide 20.6 L Anion Gap 13.4 H BUN 11 Creatinine 1.2 H Est GFR (CKD-EPI 2020) 51.18 Glucose 281 H Calcium 8.7 Magnesium 1.6 L Total Bilirubin 0.3 AST 13 L ALT < 6 L Alkaline Phosphatase 108 Troponin I < 50 Total Protein 7.0 Albumin 1.8 L Urine Color Urine Clarity Urine pH Ur Specific Vernon Urine Protein Urine Ketones Urine Blood Urine Nitrite Urine Bilirubin Urine Urobilinogen Ur Leukocyte Esterase Urine RBC Urine WBC Ur Epithelial Cells Urine Crystals Urine Bacteria Urine Casts Urine Mucus Ur Culture Indicated? Urine Glucose COVID-19 Source Nasal/Nares SARS-CoV-2 (PCR) Negative 02/08/23 02/08/23 02/08/23 13:32 16:24 16:28 WBC 11.25 H RBC 3.30 L Hgb 8.8 L Hct 29.5 L MCV 89 MCH 26.7 L MCHC 29.8 L RDW 16.7 H Plt Count 267 MPV 9.0 Immature Gran % 0.6 Neutrophils % 80.9 Lymphocytes % 12.0 Monocytes % 6.2 Eosinophils % 0.1 Basophils % 0.2 Nucleated RBC % 0.0 Absolute Neutrophils 9.10 H Absolute Lymphocytes 1.35 Absolute Monocytes 0.70 Absolute Eosinophils 0.01 Absolute Basophils 0.02 VBG Lactate 1.8 H Sodium Potassium Chloride Carbon Dioxide Anion Gap BUN Creatinine Est GFR (CKD-EPI 2020) Glucose Calcium Magnesium Total Bilirubin AST ALT Alkaline Phosphatase Troponin I Total Protein Albumin Urine Color Yellow Urine Clarity Clear Urine pH 6.0 Ur Specific Vernon <= 1.005 Urine Protein Negative Urine Ketones Negative Urine Blood Trace-intact H Urine Nitrite Negative Urine Bilirubin Negative Urine Urobilinogen 0.2 Ur Leukocyte Esterase Small H Urine RBC 0-2 Urine WBC 10-20 H Ur Epithelial Cells Rare Urine Crystals Negative Urine Bacteria Rare Urine Casts Negative Urine Mucus Negative Ur Culture Indicated? Yes Urine Glucose Negative COVID-19 Source SARS-CoV-2 (PCR) 02/08/23 02/08/23 17:48 17:48 WBC RBC Hgb Hct MCV MCH MCHC RDW Plt Count MPV Immature Gran % Neutrophils % Lymphocytes % Monocytes % Eosinophils % Basophils % Nucleated RBC % Absolute Neutrophils Absolute Lymphocytes Absolute Monocytes Absolute Eosinophils Absolute Basophils VBG Lactate 0.7 Sodium Potassium Chloride Carbon Dioxide Anion Gap BUN Creatinine Est GFR (CKD-EPI 2020) Glucose Calcium Magnesium Total Bilirubin AST ALT Alkaline Phosphatase Troponin I < 50 Total Protein Albumin Urine Color Urine Clarity Urine pH Ur Specific [place] Urine Protein Urine Ketones Urine Blood Urine Nitrite Urine Bilirubin Urine Urobilinogen Ur Leukocyte Esterase Urine RBC Urine WBC Ur Epithelial Cells Urine Crystals Urine Bacteria Urine Casts Urine Mucus Ur Culture Indicated? Urine Glucose COVID-19 Source SARS-CoV-2 (PCR) Imaging Abdomen CT scan report/results: report reviewed and image reviewed CT scan - pelvis: report reviewed and image reviewed
[2023-02-08] MEDS: Lidocaine 2% Multi-Dose 20 ML VIAL (21:05)
[2023-02-08 21:11] LABS: Anion Gap 11.8 mmol/L (3-11); BUN 11 mg/dL (7-18); CO2 21.2 mmol/L (21.0-32.0); CREATININE 0.9 mg/dL (0.55-1.02); Calcium 8.3 mg/dL (8.5-10.1); Chloride 104 mmol/L (98-107); Estimated GFR 72.28 (mL/min/1.73m2); Glucose 138 mg/dL (74-106); Potassium 3.5 mmol/L (3.5-5.1); Sodium 137 mmol/L (136-145); Troponin I < 50 ng/L (<or=60)
[2023-02-08 21:51] LABS: C Diff PCR Negative (Negative)
--- NOTE | 2023-02-08 22:04 | DI.RAD_ITS ---
Exam(s) XR PORTABLE CHEST AP POST LINE EXAM: XR PORTABLE CHEST AP POST LINE CLINICAL HISTORY: S/P IJ line TECHNIQUE: 2D digital imaging was performed of the chest. One image was obtained. An AP view was ob tained. COMPARISON: CR,XR XR PORTABLE CHEST AP from 02/08/2023 FINDINGS: MEDIASTINUM: Normal. HEART: Normal. PULMONARY VASCULATURE: Normal. LUNGS: Clear. PLEURAL SPACE: No pleural effusion or pneumothorax. BONE:Within normal limits for the patient's age. Postsurgical changes of a lower cervical fusion. OTHER FINDINGS:There has been interval placement of a right IJ catheter. The tip is in good position at the cavoatrial junction. Mild elevation of the right hemidiaphragm. IMPRESSION: 1. No acute pulmonary findings. 2. The right IJ catheter is in good position. DATA REPOSITORY: RADIATION DOSE DELIVERED:
--- NOTE | 2023-02-08 22:27 | W.PM.OP ---
Date of service: 02/08/23 Time of Service: 22:27 Operative Note Operative Note DATE OF PROCEDURE: 02/08/23 PRE-OP DIAGNOSIS: hypotension, sepsis POST-OP DIAGNOSIS: same PROCEDURE: right internal jugular venous triple lumen central venous catheter placement SURGEON: Jc Jack ANESTHESIA TYPE: Local By Surgeon Refer to Anesthesia Record ESTIMATED BLOOD LOSS: 0 PATHOLOGY: none sent COMPLICATIONS: None Patient was transported to: no change Patient's condition: stable Indications: Hypotension, lack of adequate iv access and need for vasopressors Procedure Description: After obtaining signed written informed consent including discussion of indications, alternative treatments, potential complications patient consented to placement of triple-lumen central venous catheter. Timeout was taken to verify correct patient correct procedure and correct site. Patient was prepped and draped in sterile fashion after I had gowned and gloved in mast in a sterile fashion. Using the materials from an Arrow 7 Nigerian 3 lm 20 cm catheter along pressure injectable aero guard Blue +3 lumen CVC catheter kit. 5 mL of 1% lidocaine was used to locally anesthetize the skin and subcutaneous tissue and using [employer] PX L 12-3 trans linear ultrasound probe which had been covered in sterile probe cover to identify the internal jugular vein. The vein was cannulated using the enclosed 18-gauge by 2-1/2 inch radiopaque over 20-gauge RW introducer needle.. Needle tip was followed into the internal jugular vein under ultrasound guidance. Dark red nonpulsatile blood flow was obtained through the syringe. Using Salinger technique the enclosed spring wire guide with flexible J-tip guidewire was advanced through the needle and the needle was withdrawn. Small incision was used with the enclosed scalpel to allow introduction of the vessel dilator. After dilation of vessel slow dark red nonpulsatile blood flow occurred through the site. Vessel dilator was withdrawn and the previously filled triple-lumen catheter was advanced over the guidewire to the level of 15 cm at the skin. Guidewire was withdrawn. Blood flow was withdrawn through each of the ports and the triple-lumen catheter and then flushed a second time. Catheter was then secured at the skin incision site using the enclosed second site adjustable hub fastener and catheter clamp which were then sutured to the skin. Bio dot was applied over the catheter entry site and a dry sterile dressing with a clear window was applied over the entry site and catheter. [id number] ultrasound was done of her lungs to ensure there was no evidence for pneumothorax. Bubble study was performed which also confirmed proper placement of the catheter in the IVC with bubbles entering the right atrium from the SVC. Stat portable chest x-ray was performed and results are pending. I reviewed the x-ray myself the catheter tip appears to be at the SVC right atrial junction. Patient tolerated procedure well with no apparent complications.
--- NOTE | 2023-02-08 22:36 | DI.VRAD_ITS ---
PROCEDURE INFORMATION: Exam: XR Chest Exam date and time: 02/08/2023 22:16 Age: 62 years old Clinical indication: Other vascular access device placement or adjustment; Patient HX: Ij placement TECHNIQUE: Imaging protocol: Radiologic exam of the chest. Views: 1 view. COMPARISON: CR XR PORTABLE CHEST AP 02/08/2023 16:56 FINDINGS: Tubes, catheters and devices: Right jugular catheter, satisfactory position. Lungs: No brayan airspace consolidation on portable imaging. Improved aeration of the lungs since prior. Pleural spaces: No pleural effusion. No pneumothorax. Heart/Mediastinum: The cardiac silhouette is upper limits of normal. Diaphragm: Elevated right hemidiaphragm. Bones/joints: Cervical spine fixation hardware is partially assessed. IMPRESSION: Right jugular catheter, satisfactory position. Dictated and Authenticated by: Sissy Cooper MD. Ordering:[facility] Guero Greene MD
[2023-02-08] MEDS: Norepinephrine in D5W 8 MG/250 ML BAG 9.375 MG IV (22:37)
[2023-02-08] MEDS: Acetaminophen 500 MG TAB PO (22:47)
[2023-02-08] MEDS: Gabapentin 600 MG TAB PO (22:49)
[2023-02-08] MEDS: Atorvastatin 20 MG TAB PO (22:49)
[2023-02-08] MEDS: Carbidopa 25/Levodopa 100 TAB PO (22:49)
[2023-02-08] MEDS: LORazepam 0.5 MG TAB PO (22:50)
[2023-02-08] MEDS: QUEtiapine 100 MG TAB PO (22:54)
[2023-02-08] MEDS: traZODone 50 MG TAB PO (22:54)
[2023-02-08] MEDS: rOPINIRole 0.5 MG TAB PO (22:54)
[2023-02-08] MEDS: Mirtazapine 15 MG TAB PO (22:54)
[2023-02-08] MEDS: Enoxaparin 40 MG/0.4 ML SYR SC (23:19)
[2023-02-08 23:35] LABS: HGB 8.7 g/dL (11.2-15.7)
[2023-02-09] VITALS (106 sets, daily range): BP systolic 72–153; BP diastolic 39–66; PULSE 72–146; RESP 10–27; TEMP 36.5–40; O2SAT 95–100
[2023-02-09] MEDS: LORazepam 2 MG/ML VIAL (00:09)
[2023-02-09] MEDS: Normal Saline-STERILE FIELD 0.9% 10 ML SYR (00:11)
[2023-02-09] MEDS: CEFEPIME 2 GM in Normal Saline 100 ML IVPB ×3 (00:20→16:11)
[2023-02-09] MEDS: metroNIDAZOLE 500 MG/100 ML BAG 100 MG IVPB ×4 (00:37→19:07)
[2023-02-09] MEDS: ACETAMINOPHEN 1,000 MG/100 ML BTL 400 MG IVPB (00:38)
[2023-02-09] MEDS: Normal Saline 500 ML 30 ML IV (01:22)
[2023-02-09] MEDS: ACETAMINOPHEN 1,000 MG/100 ML BTL 400 MG (02:00)
[2023-02-09] MEDS: Lactated Ringers 1,000 ML 150 ML IV (03:27)
[2023-02-09] MEDS: Normal Saline Flush 10 ML SYR IVP ×6 (03:28→20:30)
--- NOTE | 2023-02-09 06:22 | NUR.NOTE ---
Nursing Note: Noreinephrine titrated up to 15 mcg/min @ 0115 and then to 20 mcg/min@0130 for low BP. Once fever broke, able to begin weaning Norepinephrine down. Complete linen change done at 0600.
[2023-02-09 06:45] LABS: HCT 25.7 % (36.0-46.0); HGB 7.6 g/dL (11.2-15.7); MCH 26.8 pg (27.0-33.0); MCHC 29.6 % (32.0-36.0); MCV 91 fL (80-95); MPV 9.9 fL (8.0-11.0); Platelet Count 295 10^3/uL (130-400); RBC 2.84 10^6/uL (3.93-5.22); RDW 16.9 % (11.7-14.6); Reticulocyte 0.7 % (0.5-2.4); WBC 23.03 10^3/uL (4.4-10.8)
[2023-02-09 07:00] LABS: Absolute Neutrophil Count 21.19 10^3/uL (1.2-6.7); Bands % 3
[2023-02-09 07:01] LABS: Absolute Lymphocyte Count 1.15 10^3/uL (1.2-3.4); Absolute Monocyte Count 0.46 10^3/uL (0.1-0.8); Diff Comment Manual Differential; Metamyelocytes % 1; RBC Morphology Normal
--- NOTE | 2023-02-09 07:01 | W.PULMCC ---
General Date of Service Date of service: 02/09/23 Time of Service: 07:01 Reason for Admission to ICU: Septic Shock Assessment and Plan Assessment and plan (1) Septic shock: Status: Acute (2) Leukocytosis: Status: Acute (3) Parkinsonism: Status: Acute (4) History of stroke: Status: Acute (5) Chronic diarrhea: Status: Inactive (6) Colon distention: Status: Acute (7) Anemia: Status: Chronic (8) Lactic acid acidosis: Status: Acute (9) Hypokalemia: Status: Acute (10) High anion gap metabolic acidosis: Status: Acute (11) Hyperglycemia: Status: Acute (12) Hypoalbuminemia: Status: Acute (13) Complicated UTI (urinary tract infection): Status: Acute Assessment and plan: This is a chronically ill 62 yo admitted to the ICU for septic shock. I suspect her shock is abdominal in source, although she may also have a mild UTI. On my arrival she was on 20mcg of Levophed. I ordered her for vasopressin to be added, gave an LR bolus (based on POCUS findings), started stress dose steroids and placed an arterial line. Her arterial pressure was higher than cuff pressure, but she certainly still required vasopressor support. Her colon is dilated to 8cm, although historically it is dilated. She is on Linzess for chronic diarrhea, but this medication can also exacerbate an obstruction, and given her chronic colonic dilation, I wonder if this medication is doing more harm that good currently. Surgery is on board and is assessing the possibility of an SBO and has recommended a gastrograffin. Colonic dilation can result in gut bacteria translocation, which can cause abdominal source sepsis. She is on appropriate GI bug antibiotics. Recommendations Pulmonary: No acute concerns Cardiac: Septic Shock - Levophed, titrate to MAP 65mmHg - vasopressin at 0.03 - stress dose steroids - if no improvement by tomorrow recommend mixed venous gas from central line Renal: Hypokalemia - goal 4.0 AGMA - due to lactate - if not improved tomorrow recommend ABG to assess pH - continue to monitor Lactic acidosis - improved I&O: Intake & Output 02/06/23 02/07/23 02/08/23 02/09/23 23:59 23:59 23:59 23:59 Intake Total 2717.5 / 2717.5 1333.281 / 1333.281 Output Total 400 / 400 Balance 2717.5 / 2467.5 933.281 / 933.281 Weight 70.4 kg 67.5 kg Daily Fluid Goal:: even to slightly positive GI Nutrition: Nutrition - recommend clear liquids, ice, sips, popsicles while on high dose vasopressors (once levophed below 10, can slowly introduce food) Hypoalbuminemia - no indication for albumin Colonic distention - chronic - recommend stopping Linzess - recommend flat plate tomorrow - getting gastrograffin study today - surgery on board - rec's appreciated Date of Last Bowel Movement: 02/08/23 Infectious Disease: Abdominal Septic Shock - procal elevated to 21 - on cefepime and Flagyl - blood and urine cultures pending UTI - urine culture pending - on cefepime and Flagyl Hematologic: Leukocytosis - elevated neutrophil:lymphocyte ration - due to sepsis Anemia - continue to monitor Neurologic: h/o CVA - right arm contracture Parkinsons - continue home cardidopa/levodopa and other home meds Endocrine: Hyperglycemia - SSI started - goal 140-180 Lines: Right IJ CVC Left radial arterial line Stephens Prophylaxis: Omeprazole - home med Lovenox Code Status: Resuscitation Status DNR/DNI Subjective Critical and life-threatening events over the past 24 hours: This is a 62 yo admitted to the ICU for septic shock from a suspected abdominal source. She is a chronically ill, and frequently acutely ill person with chronic constipation on Linzess, chronic abdominal pain, CVA, parkinsons who was found to be hypotensive, febrile and toxic on admission. She was admitted to the ICU, started on Flagyl and cefepime. She also required Levophed and has a central line placed. She was given IVF resuscitation and start on maintenance fluids. This morning I ran the remainder of her LR as a bolus and D/C'ed the continuous fluids, after completing a POCUS. This morning she complains of abdominal pain, her lactate is better and her procal returned at 21. Her CT scan find significant rectal constipation and dilation of the descending colon, measuring to 7.9cm. Exam Narrative Exam Narrative: Gen: NAD, normal respiratory effort, well-nourished HENT: PERRL, nasal turbinates normal without erythema or inflammation, moist oral mucosa, Mallampati 2, No LAD or JVD Chest: No respiratory distress, normal appearance of chest, clear to auscultation bilaterally, no crackles or wheezes, normal inspiratory effort Heart: regular rate and rhythym, no murmurs, rubs or gallops Abdomen: Non-distended, soft but tender tender Extremities: No clubbing, edema, cyanosis, rashes Neuro: AAOx3 , left sided arm contracture Psych: cooperative, appropriate mental affect Most Recent VS/Results Last Vital Signs Temp 37.6 C H 02/09/23 06:00 Pulse 116 H 02/09/23 06:01 Resp 17 02/09/23 06:10 BP 101/60 02/09/23 06:01 Pulse Ox 98 02/09/23 06:10 Laboratory Results - last 24 hr 02/08/23 02/08/23 02/08/23 09:33 13:32 13:32 WBC RBC Hgb Hct MCV MCH MCHC RDW Plt Count MPV Reticulocyte % (Auto) Immature Gran % Neutrophils % Lymphocytes % Monocytes % Eosinophils % Basophils % Nucleated RBC % Absolute Neutrophils Absolute Lymphocytes Absolute Monocytes Absolute Eosinophils Absolute Basophils VBG Lactate 4.2 H* Sodium 133 L Potassium 3.4 L Chloride 99 Carbon Dioxide 20.6 L Anion Gap 13.4 H BUN 11 Creatinine 1.2 H Est GFR (CKD-EPI 2020) 51.18 Glucose 281 H Calcium 8.7 Magnesium 1.6 L Total Bilirubin 0.3 AST 13 L ALT < 6 L Alkaline Phosphatase 108 Troponin I < 50 Total Protein 7.0 Albumin 1.8 L Urine Color Urine Clarity Urine pH Ur Specific [place] Urine Protein Urine Ketones Urine Blood Urine Nitrite Urine Bilirubin Urine Urobilinogen Ur Leukocyte Esterase Urine RBC Urine WBC Ur Epithelial Cells Urine Crystals Urine Bacteria Urine Casts Urine Mucus Ur Culture Indicated? Urine Glucose Stl C.difficile Tox PCR COVID-19 Source Nasal/Nares SARS-CoV-2 (PCR) Negative Patient ABO/Rh Antibody Screen 02/08/23 02/08/23 02/08/23 13:32 16:24 16:28 WBC 11.25 H RBC 3.30 L Hgb 8.8 L Hct 29.5 L MCV 89 MCH 26.7 L MCHC 29.8 L RDW 16.7 H Plt Count 267 MPV 9.0 Reticulocyte % (Auto) Immature Gran % 0.6 Neutrophils % 80.9 Lymphocytes % 12.0 Monocytes % 6.2 Eosinophils % 0.1 Basophils % 0.2 Nucleated RBC % 0.0 Absolute Neutrophils 9.10 H Absolute Lymphocytes 1.35 Absolute Monocytes 0.70 Absolute Eosinophils 0.01 Absolute Basophils 0.02 VBG Lactate 1.8 H Sodium Potassium Chloride Carbon Dioxide Anion Gap BUN Creatinine Est GFR (CKD-EPI 2020) Glucose Calcium Magnesium Total Bilirubin AST ALT Alkaline Phosphatase Troponin I Total Protein Albumin Urine Color Yellow Urine Clarity Clear Urine pH 6.0 Ur Specific [place] <= 1.005 Urine Protein Negative Urine Ketones Negative Urine Blood Trace-intact H Urine Nitrite Negative Urine Bilirubin Negative Urine Urobilinogen 0.2 Ur Leukocyte Esterase Small H Urine RBC 0-2 Urine WBC 10-20 H Ur Epithelial Cells Rare Urine Crystals Negative Urine Bacteria Rare Urine Casts Negative Urine Mucus Negative Ur Culture Indicated? Yes Urine Glucose Negative Stl C.difficile Tox PCR COVID-19 Source SARS-CoV-2 (PCR) Patient ABO/Rh Antibody Screen 02/08/23 02/08/23 02/08/23 17:48 17:48 20:38 WBC RBC Hgb Hct MCV MCH MCHC RDW Plt Count MPV Reticulocyte % (Auto) Immature Gran % Neutrophils % Lymphocytes % Monocytes % Eosinophils % Basophils % Nucleated RBC % Absolute Neutrophils Absolute Lymphocytes Absolute Monocytes Absolute Eosinophils Absolute Basophils VBG Lactate 0.7 Sodium 137 Potassium 3.5 Chloride 104 Carbon Dioxide 21.2 Anion Gap 11.8 H BUN 11 Creatinine 0.9 Est GFR (CKD-EPI 2020) 72.28 Glucose 138 H Calcium 8.3 L Magnesium Total Bilirubin AST ALT Alkaline Phosphatase Troponin I < 50 < 50 Total Protein Albumin Urine Color Urine Clarity Urine pH Ur Specific [place] Urine Protein Urine Ketones Urine Blood Urine Nitrite Urine Bilirubin Urine Urobilinogen Ur Leukocyte Esterase Urine RBC Urine WBC Ur Epithelial Cells Urine Crystals Urine Bacteria Urine Casts Urine Mucus Ur Culture Indicated? Urine Glucose Stl C.difficile Tox PCR COVID-19 Source SARS-CoV-2 (PCR) Patient ABO/Rh Antibody Screen 02/08/23 02/08/23 02/08/23 20:45 23:20 23:20 WBC RBC Hgb 8.7 L Hct 29.0 L MCV MCH MCHC RDW Plt Count MPV Reticulocyte % (Auto) Immature Gran % Neutrophils % Lymphocytes % Monocytes % Eosinophils % Basophils % Nucleated RBC % Absolute Neutrophils Absolute Lymphocytes Absolute Monocytes Absolute Eosinophils Absolute Basophils VBG Lactate Sodium Potassium Chloride Carbon Dioxide Anion Gap BUN Creatinine Est GFR (CKD-EPI 2020) Glucose Calcium Magnesium Total Bilirubin AST ALT Alkaline Phosphatase Troponin I Total Protein Albumin Urine Color Urine Clarity Urine pH Ur Specific [place] Urine Protein Urine Ketones Urine Blood Urine Nitrite Urine Bilirubin Urine Urobilinogen Ur Leukocyte Esterase Urine RBC Urine WBC Ur Epithelial Cells Urine Crystals Urine Bacteria Urine Casts Urine Mucus Ur Culture Indicated? Urine Glucose Stl C.difficile Tox PCR Negative COVID-19 Source SARS-CoV-2 (PCR) Patient ABO/Rh A Positive Antibody Screen NEGATIVE 02/09/23 05:40 WBC RBC Hgb Hct MCV MCH MCHC RDW Plt Count MPV Reticulocyte % (Auto) Cancelled Immature Gran % Neutrophils % Lymphocytes % Monocytes % Eosinophils % Basophils % Nucleated RBC % Absolute Neutrophils Absolute Lymphocytes Absolute Monocytes Absolute Eosinophils Absolute Basophils VBG Lactate Sodium Potassium Chloride Carbon Dioxide Anion Gap BUN Creatinine Est GFR (CKD-EPI 2020) Glucose Calcium Magnesium Total Bilirubin AST ALT Alkaline Phosphatase Troponin I Total Protein Albumin Urine Color Urine Clarity Urine pH Ur Specific [place] Urine Protein Urine Ketones Urine Blood Urine Nitrite Urine Bilirubin Urine Urobilinogen Ur Leukocyte Esterase Urine RBC Urine WBC Ur Epithelial Cells Urine Crystals Urine Bacteria Urine Casts Urine Mucus Ur Culture Indicated? Urine Glucose Stl C.difficile Tox PCR COVID-19 Source SARS-CoV-2 (PCR) Patient ABO/Rh Antibody Screen Review of Systems All systems reviewed & are unremarkable except as noted in HPI and below Time spent with patient Time spent in Critical Care: 65 Time spent in Critical care included: Performing procedures not included in c.c time, Chart review, Documenting critically ill care, Time at immediate bedside and Discussing critically ill care with other medical staff Procedure Note Date of procedure: 02/09/23 Pre-op diagnosis: Septic Shock Post-op diagnosis: same Procedure: Arterial Line Placement Performed by: Alejandra Cortez MD Indications and/or Provisional Diagnosis: Invasive hemodynamic monitoring Consent: The patient has been informed and understands the information and situation provided to them about the procedure. They have capacity and ability to weigh risks, goals and benefits as well as the alternatives of proposed treatments including the option of not undergoing the procedure. The patient has expressed their rationale and executed the choice to proceed forward with the procedure with no undue influence or coercion. If the patient is DNR, a required reconsideration has been completed? not necessary Type of Anesthesia/Sedation: Local anesthetic with 1% lidocaine was administered Fluids Given: See I&O Unless otherwise noted, there was no blood loss, specimens removed, cultures obtained, or drains retained. Time Out: A time-out was completed prior to procedure verifying correct patient, procedure, site, positioning, and special equipment if applicable. Procedure Technique/Description of Procedure: The patient was prepped and draped in the usual sterile fashion. An arterial line was introduced percutaneously and via the Seldinger technique into the left radial artery after 1 attempt(s). Good blood return without significant extremity blanching was noted. Good arterial wave form was noted. Blood loss was minimal. Post Procedure Diagnosis and Findings: Same as Indications and/or Provisional Diagnosis Complications: None Alejandra Cortez MD Pulmonary & Critical Care Multi-Disciplinary Checklist Lines/Tubes CENTRAL LINE: yes, Central Line Day#: 1 ARTERIAL LINE: yes, Arterial Line Day#: 0 STEPHENS: yes, Stephens Day#: 1 ENDOTRACHEAL TUBE: no ICU Maintenance GLUCOSE 140-180mg/dL: no, Reason/Intervention: sliding scale insulin ordered to start now NUTRITION AT GOAL: no, Reason/Intervention: clear liquids for now given GI process and high dose pressors PRESSURE ULCER: no RESTRAINTS: no ANTIBIOTICS(if yes, consider Stewardship): Yes Social Issues FAMILY UPDATED: no, Reason/Intervention: patient able to do this PT/OT: no, Reason/Intervention: not appropriate at this time GOALS/DISPOSITION/SALES AND MARKETING DIRECTOR: yes CODE STATUS: DNR/DNI Prophylaxis DVT PROPHYLAXIS: yes GI PROPHYLAXIS: yes, Indication: home med Pocus Exam Limited Cardiac Exam DATE OF EXAM: 02/09/23 TIME OF EXAM: 07:25 PROVIDER THAT PERFORMED THE STUDY: Alejandra Cortez IS THIS A REPEAT EXAM DURING THIS ENCOUNTER: no REASON FOR EXAM: Hypotension and Septic Shock VISUALIZED STRUCTURES: four chambers, left atrium, left ventricle, right atrium, right ventricle, mitral valve, Interventricular septum and IVC VIEW OBTAINED: Parasternal long-axis, Parasternal short-axis and Subxiphoid PERTINENT FINDINGS/IMPRESSION: IVC inspiratory collapsability; No LV dysfunction, No pericardial effusion, No RV dilation and No RV dysfunction Exam complete Limited Vascular Exam DATE OF EXAM: 02/09/23 TIME OF EXAM: 07:35 PROVIDER THAT PERFORMED THE STUDY: Alejandra Cortez IS THIS A REPEAT EXAM DURING THIS ENCOUNTER: No DIFFERENTIAL DIAGNOSES: Left radial and ulnar artery visualized prior to arterial line insertion
[2023-02-09 07:07] LABS: AST 12 U/L (15-37); Albumin 1.4 g/dL (3.4-5.0); Alkaline Phosphatase 96 U/L (46-116); Anion Gap 17.3 mmol/L (3-11); BUN 10 mg/dL (7-18); Bilirubin, Total 0.3 mg/dL (0.2-1.0); CO2 16.7 mmol/L (21.0-32.0); CREATININE 0.9 mg/dL (0.55-1.02); Calcium 8.2 mg/dL (8.5-10.1); Chloride 105 mmol/L (98-107); Estimated GFR 72.28 (mL/min/1.73m2); Glucose 223 mg/dL (74-106); Sodium 139 mmol/L (136-145); Total Protein 5.9 g/dL (6.4-8.2)
[2023-02-09 07:10] LABS: ALT < 6 U/L (14-59)
[2023-02-09 07:12] LABS: Potassium 2.7 mmol/L (3.5-5.1)
[2023-02-09 07:29] LABS: Iron 5 ug/dL (50-170); Total Iron Binding Capacity 96 ug/dL (250-450); Transferrin Sat 5 % (15-50)
[2023-02-09 07:34] LABS: Ferritin 238 ng/mL (8-252)
--- NOTE | 2023-02-09 08:15 | DI.RAD_ITS ---
Exam(s) XR ABDOMEN FLAT PLATE EXAM: 2D digital imaging was performed. CLINICAL HISTORY: bowel obstruction. COMPARISON: CR XR ABDOMEN FLAT PLATE from 12/25/2022 TECHNIQUE: Supine views of the abdomen performed. FINDINGS: BOWEL GAS PATTERN: Oral contrast is seen in the stomach and duodenum. Note is made of a diverticulum involving the 3rd portion of the duodenum. Gas-filled loops of small and large bowel are visualized . CALCIFICATIONS: No radiopaque calcifications. OSSEOUS STRUCTURES: Normal for age. OTHER FINDINGS: None. IMPRESSION: 1. The oral contrast at this point is in the stomach and proximal duodenum. 2. Duodenal diverticulum. DATA REPOSITORY: RADIATION DOSE DELIVERED:
[2023-02-09] MEDS: lamoTRIgine 25 MG TAB 50 MG PO (08:51)
[2023-02-09] MEDS: Levothyroxine 100 MCG TAB PO (08:51)
[2023-02-09] MEDS: Hydrocortisone SOD SUC. 100 MG VIAL IVP ×2 (08:51→16:59)
[2023-02-09] MEDS: Vitamins B Comp w/C TAB 1 TAB PO (08:51)
[2023-02-09] MEDS: Gabapentin 600 MG TAB PO ×2 (08:51→20:32)
[2023-02-09] MEDS: QUEtiapine 100 MG TAB PO ×2 (08:52→20:30)
[2023-02-09] MEDS: Carbidopa 25/Levodopa 100 TAB PO ×4 (08:52→20:32)
[2023-02-09] MEDS: Multivitamin TAB 1 TAB PO (08:52)
[2023-02-09] MEDS: Multivitamin w/Minerals TAB 1 TAB PO (08:52)
[2023-02-09] MEDS: LORazepam 0.5 MG TAB PO ×2 (08:52→20:31)
[2023-02-09] MEDS: buPROPion-XL 150 MG TABCR PO (08:52)
[2023-02-09] MEDS: Magnesium Oxide 400 MG TAB 800 MG PO ×2 (08:52→15:37)
[2023-02-09] MEDS: Aspirin E.C. 81 MG TABEC PO (08:52)
[2023-02-09] MEDS: Omeprazole 20 MG CAPCR PO (08:53)
[2023-02-09] MEDS: traZODone 50 MG TAB PO ×2 (08:53→20:31)
[2023-02-09] MEDS: Acetaminophen 500 MG TAB PO ×2 (08:53→20:31)
--- NOTE | 2023-02-09 09:20 | INITIAL_ITS ---
Date of service: 02/09/23 Time of Service: 09:20 Care Management Initial Assmt Initial Assessment REASON FOR HOSPITALIZATION:: Sepsis, Abdominal Pain PREVIOUS FUNCTIONAL STATUS/SOCIAL/FAMILY SUPPORTS:: Currently resides at [facility] as a long-term resident. Patient states that she has been dependent in all functional mobility and transfers as well as self-care since her stroke resulting in right hemiplegia upper and lower extremity. Patient able to communicate without limitations. Indicates that she utilizes a Ashley lift at baseline however has essentially been in bed for the last 5 months secondary to breathing limitations both in supine and upright sitting positions. States she requires assistance with functional transfers and has not ambulated in multiple years. Does require some assist for self-care activities. States the nursing c are facility does assist with pressure relief techniques. CURRENT FUNCTIONAL STATUS:: Ginger was lying in bed when CM met with her. She is awake and easily engages in conversation. Per pt, she is waiting for a bed at a SNF in [facility]. ADVANCE DIRECTIVES:: None on file. Has patient been provided with info about the portal/API?: Yes Did the patient sign up for the portal?: No CODE STATUS:: DNR/DNI ([facility] on file) INSURANCE COVERAGE / FINANCIAL ISSUES:: Medicaid CURRENT HOME/COMMUNITY SERVICES/EQUIPMENT:: Resident of [facility] Wheelchair Ashley Lift PRIMARY CARE PHYSICIAN:: Agueda Bingham POTENTIAL DISCHARGE NEEDS:: Coordinated return to the [facility]. PATIENT/FAMILY EDUCATION NEEDS:: Review discharge instructions and limitations, discussion of self care needs including ask me three. ANTICIPATED BARRIERS TO DISCHARGE:: None identified TRANSPORTATION:: EMS ([facility]) PLAN:: Anticipate, Ginger will return to the [facility] when medically cleared. She will likely transport via EMS, coordinated by CM. She will follow up with facility providers and discharge plan of care. CM will continue to follow. PFSH All Active Problems (Updated 02/09/23 @ 10:52 by Alejandra Cortez MD) Complicated UTI (urinary tract infection) (Acute) Hypoalbuminemia (Acute) Hyperglycemia (Acute) High anion gap metabolic acidosis (Acute) Hypokalemia (Acute) Lactic acid acidosis (Acute) Anemia (Chronic) Colon distention (Acute) Leukocytosis (Acute) Septic shock (Acute) Discharge planning issues (Acute) DVT prophylaxis (Acute) Small bowel obstruction (Acute) Sepsis (Acute) Advanced care planning/counseling discussion (Acute) Gallstones (Acute) Tardive dyskinesia (Acute) Parkinsonism (Acute) History of stroke (Acute) Bipolar 1 disorder (Chronic) Bipolar affective disorder, current episode depressed (Acute) rule out bipolar disorder reported by patient. Antiepileptics maybe preventing manic episode. Major depressive disorder, recurrent, severe with psychotic features (Acute) Current presentation is depression. She may have bipolar affective disorder. Ambulatory dysfunction (Chronic) Hemiparesis affecting right side as late effect of cerebrovascular accident (Acute) Dysphagia as late effect of cerebrovascular accident (CVA) (Chronic) Dysarthria as late effect of cerebrovascular accident (CVA) (Acute) Medical History Abdominal bloating Abdominal pain Acute bronchitis Anxiety Aphasia as late effect of cerebrovascular accident Arthritis of left shoulder region Autoimmune disorder Bipolar 1 disorder Cholelithiasis with acute cholecystitis s/p cholecystostomy and stone extraction in 2014 ([facility]), tube now pulled. 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 Colon distention Complicated UTI (urinary tract infection) Constipation Cough Diarrhea Diverticulosis Emphysematous pyelonephritis Hemiparesis affecting right side as late effect of cerebrovascular accident (CVA) Hepatitis C History of multiple cerebrovascular accidents (CVAs) Hydronephrosis of right kidney Hypertension Hypothyroidism IDDM (insulin dependent diabetes mellitus) Ileus Left rotator cuff tear Lumbar disc disease Microcytic anemia Neck pain Nephrolithiasis Neurogenic bladder Obesity (BMI 30.0-34.9) Palliative care encounter Pyelonephritis Pyuria due to bacterial urinary tract infection Staghorn calculus Static encephalopathy Steroid dependent Uterine mass likely a fibroid UTI (urinary tract infection) UTI (urinary tract infection) Surgical History Abnormal cholangiogram H/O cervical spine surgery H/O foot surgery H/O wrist surgery History of extraction of renal calculus 12/13/2018 - [facility] History of hip surgery right History of lumbosacral spine surgery S/P cystoscopy with ureteral stent placement [facility] 11/2018 Status post creation of urethral sling by suprapubic approach Family History Mother Stroke Social History Smoking/Tobacco Use Status: Former Tobacco Use Smoking risk assessment performed?: Yes Alcohol Intake: former Substance use type: former substance user and IV drugs Housing: group home Number of Children: 5 Education Level: elementary school Details: 6th grade, special ed, left school age 16. Current gender identity: female What is your relationship status?: Panel score (0-1 are the most socially isolated patients): 0 What type of physical activity do you participate in: none Do you feel safe at home: Yes Do you feel safe in your relationship?: Yes
[2023-02-09 09:23] LABS: Lactate 0.7 mmol/L (0.6-1.4)
[2023-02-09] MEDS: VASOPRESSIN 50 UNITS in Normal Saline 497.5 ML 18 UNITS IV (09:31)
[2023-02-09 09:41] LABS: PTT Activated 32.8 sec (21.5-31.9); Prothrombin Time 11.7 sec (9.3-11.0)
[2023-02-09 09:46] LABS: INR 1.1 (0.9-1.1)
[2023-02-09] MEDS: POTASSIUM CHLORIDE 10 MEQ/100 ML BAG 100 MEQ IVPB ×3 (09:48→12:20)
[2023-02-09] MEDS: MAGNESIUM SULFATE 4 GM/100 ML BAG IVPB (09:48)
[2023-02-09 09:58] LABS: Procalcitonin 21.8 ng/mL
[2023-02-09] MEDS: Fluticasone NASAL SPRAY 16 GM BTL NS ×2 (11:22→20:33)
[2023-02-09] MEDS: Diclofenac 1% Gel 100 GM TUBE TP ×2 (11:37→20:32)
[2023-02-09 11:48] LABS: Fibrinogen (Stat) (Littleton) 533 mg/dL (208-434)
[2023-02-09] MEDS: Insulin Aspart 300 UNITS/3 ML PEN SC ×2 (12:44→17:19)
[2023-02-09] MEDS: Gastrografin 120 ML BTL PO (13:27)
[2023-02-09] MEDS: Insulin Glargine 300 UNITS/3 ML PEN 10 UNITS SC (14:10)
[2023-02-09] MEDS: QUEtiapine 50 MG TAB PO (14:36)
[2023-02-09] MEDS: Norepinephrine in D5W 8 MG/250 ML BAG 15 MG IV (15:00)
--- NOTE | 2023-02-09 15:11 | PHA.REVIEW2 ---
Pharmacy Admission Review - Admission Clinical Review (Last Reviewed 02/08/23 @ 20:23 by Jc Jack MD) Complicated UTI (urinary tract infection) (Acute) Hypoalbuminemia (Acute) Hyperglycemia (Acute) High anion gap metabolic acidosis (Acute) Hypokalemia (Acute) Lactic acid acidosis (Acute) Colon distention (Acute) Leukocytosis (Acute) Septic shock (Acute) Discharge planning issues (Acute) DVT prophylaxis (Acute) Small bowel obstruction (Acute) Sepsis (Acute) Tardive dyskinesia (Acute) Parkinsonism (Acute) History of stroke (Acute) Hemiparesis affecting right side as late effect of cerebrovascular accident (Acute) naproxen [From Aleve] Allergy (Unknown, Unverified 12/24/22 13:04) Itching Penicillins Allergy (Unknown, Unverified 12/24/22 13:04) Itching propoxyphene Allergy (Unknown, Unverified 12/24/22 13:04) Itching Sulfa (Sulfonamide Antibiotics) Allergy (Unknown, Unverified 12/24/22 13:04) Itching methadone Allergy (Verified 12/24/22 13:04) Resuscitation Status DNR/DNI Height 5 ft 1 in Weight 67.5 kg - Renal Dosing Renal Dosing: BUN 10 mg/dL (7-18) 02/09/23 05:40 Creatinine 0.9 mg/dL (0.55-1.02) 02/09/23 05:40 Medications needing adjustments: Intervened (crcl = 51) List of meds needing interventions: cefepime adjusted based on renal dosing recommendations (uptodate) for crcl <60: from 2 gram q8h to 2 gram q12h. Other meds ok, monitor renal function and addition of new meds - Anticoagulation Anticoagulation: Hgb 7.6 g/dL (11.2-15.7) L 02/09/23 05:40 Hct 25.7 % (36.0-46.0) L 02/09/23 05:40 Plt Count 295 10^3/uL (130-400) 02/09/23 05:40 INR 1.1 (0.9-1.1) 02/09/23 09:12 Creatinine 0.9 mg/dL (0.55-1.02) 02/09/23 05:40 DVT Prophylaxis: Reviewed Medications: Enoxaparin (lovenox 40 mg daily) Therapeutic Anticoagulation: N/A - Opiate Usage Evaluate Pain Scale/Pains Meds: Reviewed (prn IV morphine ordered. has not used any) Scheduled Bowel Reg ordered if on Opiates?: No (prn) - Relevant Labs Sodium 139 mmol/L (136-145) 02/09/23 05:40 Potassium 2.7 mmol/L (3.5-5.1) L* 02/09/23 05:40 Chloride 105 mmol/L (98-107) 02/09/23 05:40 Magnesium 1.6 mg/dL (1.8-2.4) L 02/08/23 13:32 Electrolytes, C-Reactive P, ESR: Reviewed (30 mEq IV K+ given today plus 4g mag) - DM Control DM Control: Glucose 223 mg/dL (74-106) H 02/09/23 05:40 Finger Stick Blood Glucose 385 Finger Stick Blood Glucose 385 Finger Stick Blood Glucose 385 Finger Stick Blood Glucose 385 DM Control: Reviewed Insulin Dosing, Diabetic Medication: sliding scale insulin aspart + lantus 10 units daily added today (on trulicty + metformin at home) - Cardiac Review Cardiac Review: Troponin I < 50 ng/L (<or=60) 02/08/23 20:38 BP, HR, EF%: Reviewed - Qtc Review QTc: Reviewed (QTc = 447) - IV to PO Switch IV Medications: Reviewed (spoke with Dr. Lea regarding IV solu-cortef - med is on backorder and only a handful of vials remain in the hospital. Plan to switch to oral as soon as possible) - Home Meds Home Med List reviewed: Reviewed - Current meds Current Medication Order Review: Reviewed Comments: norepinephrine drip, vasopressin drip Antibiotic Activity - Pharmacy Antibiotic Review Pharmacy Antibiotic Activity: Renal function adjustment (cefepime adjusted for crcl <60) - Antibiotic Information Antibiotic Review Info: metronidazole for possible Cdif (pending) / cefepime for bowel organisms -- continue both for now, de-escalate when possible
[2023-02-09] MEDS: Acetaminophen 325 MG TAB PO (15:37)
[2023-02-09] MEDS: Calcium Carbonate *TUMS* 500 MG CHEW PO (15:46)
--- NOTE | 2023-02-09 15:47 | PGE_ITS ---
Date of Service Date of service: 02/09/23 Time of Service: 15:47 Assessment and Plan Assessment and plan (1) Abdominal pain: Assessment and plan: We gave him Gastrografin this morning, and checked an x-ray in the early part of the afternoon. Contrast is all within the stomach and the duodenum, and there is distention of loops of small intestine throughout the entire abdomen. Generally, I think this looks a little more like ileus than bowel obstruction. I would like to see the contrast advance a little further, although we took the x-ray well before the traditional 8-hour [place] for a Gastrografin challenge. I do think her overall picture is much improved compared to yesterday. I think we should continue the broad-spectrum antibiotics for now, and reassess the progression of Gastrografin with another x-ray this evening. Subjective Subjective Interval history since last seen: Ginger was quite sick through the night, with escalating pressor support and fevers. She looks much better this afternoon, she is more awake and alert. Pressors are weaning down. Hemodynamics have improved dramatically. She tells me she still has some nausea, and consistent right-sided abdominal discomfort, but that it is better when she came to the hospital. Exam GI Other: Abdomen is soft, and less tender. Although she is more distended today. Bowel sounds are quiet, and she is a little tympanitic. Objective Last Vital Signs Temp 99.0 F 02/09/23 09:58 Pulse 99 H 02/09/23 09:58 Resp 13 02/09/23 11:50 BP 153/63 H 02/09/23 09:58 Pulse Ox 96 02/09/23 11:50 Laboratory Results - last 24 hr 02/08/23 02/08/23 02/08/23 16:24 16:28 17:48 WBC RBC Hgb Hct MCV MCH MCHC RDW Plt Count MPV Reticulocyte % (Auto) Immature Gran % Neutrophils % Band Neutrophils % Lymphocytes % Monocytes % Eosinophils % Basophils % Metamyelocytes % Nucleated RBC % Absolute Neutrophils Absolute Lymphocytes Absolute Monocytes Absolute Eosinophils Absolute Basophils RBC Morphology PT INR APTT Fibrinogen VBG Lactate 1.8 H 0.7 Sodium Potassium Chloride Carbon Dioxide Anion Gap BUN Creatinine Est GFR (CKD-EPI 2020) Glucose Calcium Iron TIBC Transferrin % Sat Ferritin Total Bilirubin AST ALT Alkaline Phosphatase Troponin I Total Protein Albumin Procalcitonin Urine Color Yellow Urine Clarity Clear Urine pH 6.0 Ur Specific [place] <= 1.005 Urine Protein Negative Urine Ketones Negative Urine Blood Trace-intact H Urine Nitrite Negative Urine Bilirubin Negative Urine Urobilinogen 0.2 Ur Leukocyte Esterase Small H Urine RBC 0-2 Urine WBC 10-20 H Ur Epithelial Cells Rare Urine Crystals Negative Urine Bacteria Rare Urine Casts Negative Urine Mucus Negative Ur Culture Indicated? Yes Urine Glucose Negative Stl C.difficile Tox PCR Patient ABO/Rh Antibody Screen 02/08/23 02/08/23 02/08/23 17:48 20:38 20:45 WBC RBC Hgb Hct MCV MCH MCHC RDW Plt Count MPV Reticulocyte % (Auto) Immature Gran % Neutrophils % Band Neutrophils % Lymphocytes % Monocytes % Eosinophils % Basophils % Metamyelocytes % Nucleated RBC % Absolute Neutrophils Absolute Lymphocytes Absolute Monocytes Absolute Eosinophils Absolute Basophils RBC Morphology PT INR APTT Fibrinogen VBG Lactate Sodium 137 Potassium 3.5 Chloride 104 Carbon Dioxide 21.2 Anion Gap 11.8 H BUN 11 Creatinine 0.9 Est GFR (CKD-EPI 2020) 72.28 Glucose 138 H Calcium 8.3 L Iron TIBC Transferrin % Sat Ferritin Total Bilirubin AST ALT Alkaline Phosphatase Troponin I < 50 < 50 Total Protein Albumin Procalcitonin Urine Color Urine Clarity Urine pH Ur Specific [place] Urine Protein Urine Ketones Urine Blood Urine Nitrite Urine Bilirubin Urine Urobilinogen Ur Leukocyte Esterase Urine RBC Urine WBC Ur Epithelial Cells Urine Crystals Urine Bacteria Urine Casts Urine Mucus Ur Culture Indicated? Urine Glucose Stl C.difficile Tox PCR Negative Patient ABO/Rh Antibody Screen 02/08/23 02/08/23 02/09/23 23:20 23:20 05:40 WBC RBC Hgb 8.7 L Hct 29.0 L MCV MCH MCHC RDW Plt Count MPV Reticulocyte % (Auto) Immature Gran % Neutrophils % Band Neutrophils % Lymphocytes % Monocytes % Eosinophils % Basophils % Metamyelocytes % Nucleated RBC % Absolute Neutrophils Absolute Lymphocytes Absolute Monocytes Absolute Eosinophils Absolute Basophils RBC Morphology PT INR APTT Fibrinogen VBG Lactate Sodium 139 Potassium 2.7 L* Chloride 105 Carbon Dioxide 16.7 L Anion Gap 17.3 H BUN 10 Creatinine 0.9 Est GFR (CKD-EPI 2020) 72.28 Glucose 223 H Calcium 8.2 L Iron TIBC Transferrin % Sat Ferritin 238 Total Bilirubin 0.3 AST 12 L ALT < 6 L Alkaline Phosphatase 96 Troponin I Total Protein 5.9 L Albumin 1.4 L Procalcitonin Urine Color Urine Clarity Urine pH Ur Specific [place] Urine Protein Urine Ketones Urine Blood Urine Nitrite Urine Bilirubin Urine Urobilinogen Ur Leukocyte Esterase Urine RBC Urine WBC Ur Epithelial Cells Urine Crystals Urine Bacteria Urine Casts Urine Mucus Ur Culture Indicated? Urine Glucose Stl C.difficile Tox PCR Patient ABO/Rh A Positive Antibody Screen NEGATIVE 02/09/23 02/09/23 02/09/23 05:40 05:40 05:40 WBC 23.03 H RBC 2.84 L Hgb 7.6 L Hct 25.7 L MCV 91 MCH 26.8 L MCHC 29.6 L RDW 16.9 H Plt Count 295 MPV 9.9 Reticulocyte % (Auto) 0.7 Cancelled Immature Gran % 0.0 Neutrophils % 89.0 Band Neutrophils % 3 Lymphocytes % 5.0 Monocytes % 2.0 Eosinophils % 0.0 Basophils % 0.0 Metamyelocytes % 1 Nucleated RBC % 0.0 Absolute Neutrophils 21.19 H Absolute Lymphocytes 1.15 L Absolute Monocytes 0.46 Absolute Eosinophils 0.00 Absolute Basophils 0.00 RBC Morphology Normal PT INR APTT Fibrinogen VBG Lactate Sodium Potassium Chloride Carbon Dioxide Anion Gap BUN Creatinine Est GFR (CKD-EPI 2020) Glucose Calcium Iron 5 L TIBC 96 L Transferrin % Sat 5 L Ferritin Total Bilirubin AST ALT Alkaline Phosphatase Troponin I Total Protein Albumin Procalcitonin Urine Color Urine Clarity Urine pH Ur Specific [place] Urine Protein Urine Ketones Urine Blood Urine Nitrite Urine Bilirubin Urine Urobilinogen Ur Leukocyte Esterase Urine RBC Urine WBC Ur Epithelial Cells Urine Crystals Urine Bacteria Urine Casts Urine Mucus Ur Culture Indicated? Urine Glucose Stl C.difficile Tox PCR Patient ABO/Rh Antibody Screen 02/09/23 02/09/23 02/09/23 09:12 09:12 09:12 WBC RBC Hgb Hct MCV MCH MCHC RDW Plt Count MPV Reticulocyte % (Auto) Immature Gran % Neutrophils % Band Neutrophils % Lymphocytes % Monocytes % Eosinophils % Basophils % Metamyelocytes % Nucleated RBC % Absolute Neutrophils Absolute Lymphocytes Absolute Monocytes Absolute Eosinophils Absolute Basophils RBC Morphology PT 11.7 H INR 1.1 APTT 32.8 H Fibrinogen 533 H VBG Lactate 0.7 Sodium Potassium Chloride Carbon Dioxide Anion Gap BUN Creatinine Est GFR (CKD-EPI 2020) Glucose Calcium Iron TIBC Transferrin % Sat Ferritin Total Bilirubin AST ALT Alkaline Phosphatase Troponin I Total Protein Albumin Procalcitonin Urine Color Urine Clarity Urine pH Ur Specific [place] Urine Protein Urine Ketones Urine Blood Urine Nitrite Urine Bilirubin Urine Urobilinogen Ur Leukocyte Esterase Urine RBC Urine WBC Ur Epithelial Cells Urine Crystals Urine Bacteria Urine Casts Urine Mucus Ur Culture Indicated? Urine Glucose Stl C.difficile Tox PCR Patient ABO/Rh Antibody Screen 02/09/23 09:12 WBC RBC Hgb Hct MCV MCH MCHC RDW Plt Count MPV Reticulocyte % (Auto) Immature Gran % Neutrophils % Band Neutrophils % Lymphocytes % Monocytes % Eosinophils % Basophils % Metamyelocytes % Nucleated RBC % Absolute Neutrophils Absolute Lymphocytes Absolute Monocytes Absolute Eosinophils Absolute Basophils RBC Morphology PT INR APTT Fibrinogen VBG Lactate Sodium Potassium Chloride Carbon Dioxide Anion Gap BUN Creatinine Est GFR (CKD-EPI 2020) Glucose Calcium Iron TIBC Transferrin % Sat Ferritin Total Bilirubin AST ALT Alkaline Phosphatase Troponin I Total Protein Albumin Procalcitonin 21.8 Urine Color Urine Clarity Urine pH Ur Specific [place] Urine Protein Urine Ketones Urine Blood Urine Nitrite Urine Bilirubin Urine Urobilinogen Ur Leukocyte Esterase Urine RBC Urine WBC Ur Epithelial Cells Urine Crystals Urine Bacteria Urine Casts Urine Mucus Ur Culture Indicated? Urine Glucose Stl C.difficile Tox PCR Patient ABO/Rh Antibody Screen Time Spent with Patient Time Spent with Patient: 25-34 minutes Time was spent: preparing to see the patient(eg.review tests), indepentently interpreting results and counseling the patient
--- NOTE | 2023-02-09 15:58 | PGE_ITS ---
Date of Service Date of service: 02/09/23 Time of Service: 15:59 Assessment and Plan Assessment and plan (1) Sepsis: Status: Acute Assessment and plan: Etiology likely GI; questionably colonic bacterial translocation. She has significant amount of stool in rectum. Ascending colon [address] Hilliard is not convinced that she is obstructed; possibly an ileus. gastrograffin study performed today; appears to have slowing out of the duodenum. Continue iv fluid hydration and hemodynamic support w/ N.E. and broad spectrum antibiotics: cefepime and flagyl (flagyl to cover for C diff otherwise cefepime alone would be adequate for bowel organisms. UA does not look suspicious for UTI and there is no evidence for pyelonephritis or obstructive uropathy on her CT scan. CVP line has been placed d/t her poor iv access and need for vasopressors. Titrate N.E. to MAP 65 mm. (2) Small bowel obstruction: Status: Acute Assessment and plan: Vs ileus. Gastrograffin study in progress. Clear liquids as tolerated. (3) Abdominal pain: Assessment and plan: will give her low dose narcotics for pain control. avoid NSAID in setting of hypotension d/t risk of [place] (4) Bipolar 1 disorder: Status: Chronic Assessment and plan: Cont her home meds (5) Hemiparesis affecting right side as late effect of cerebrovascular accident: Status: Acute Assessment and plan: Chronic and stable. Cont ASA and statin. (6) DVT prophylaxis: Status: Acute Assessment and plan: enoxaparin SC (7) Discharge planning issues: Status: Acute Assessment and plan: patient is a DNR/DNI, but wants full treament otherwise. When medically stable then she will return to [facility] Subjective Subjective Patient reports: nausea and afebrile; denies shortness of breath Exam Narrative Exam Narrative: Ginger is alert and oriented person place time circumstance. Lying in bed. Conversant. HEENT is remarkable for dry mucous membranes, edentulous. Neck is supple nontender no JVD neck Lungs are clear to auscultation Heart is regular rate and rhythm no appreciable murmur rub Abdomen soft slightly distended with hypoactive bowel sounds. Lower extremities without peripheral cyanosis or edema Neuro exam patient has right hemiplegia w/ contracted right arm and hand as well as contracted right foot, speech is slightly dysarthric but intelligible, she is at her baseline, cognition is intact Objective Last Vital Signs Temp 37.2 C 02/09/23 09:58 Pulse 99 H 02/09/23 09:58 Resp 13 02/09/23 11:50 BP 153/63 H 02/09/23 09:58 Pulse Ox 96 02/09/23 11:50 Laboratory Results - last 24 hr 02/08/23 02/08/23 02/08/23 16:24 16:28 17:48 WBC RBC Hgb Hct MCV MCH MCHC RDW Plt Count MPV Reticulocyte % (Auto) Immature Gran % Neutrophils % Band Neutrophils % Lymphocytes % Monocytes % Eosinophils % Basophils % Metamyelocytes % Nucleated RBC % Absolute Neutrophils Absolute Lymphocytes Absolute Monocytes Absolute Eosinophils Absolute Basophils RBC Morphology PT INR APTT Fibrinogen VBG Lactate 1.8 H 0.7 Sodium Potassium Chloride Carbon Dioxide Anion Gap BUN Creatinine Est GFR (CKD-EPI 2020) Glucose Calcium Iron TIBC Transferrin % Sat Ferritin Total Bilirubin AST ALT Alkaline Phosphatase Troponin I Total Protein Albumin Procalcitonin Urine Color Yellow Urine Clarity Clear Urine pH 6.0 Ur Specific [place] <= 1.005 Urine Protein Negative Urine Ketones Negative Urine Blood Trace-intact H Urine Nitrite Negative Urine Bilirubin Negative Urine Urobilinogen 0.2 Ur Leukocyte Esterase Small H Urine RBC 0-2 Urine WBC 10-20 H Ur Epithelial Cells Rare Urine Crystals Negative Urine Bacteria Rare Urine Casts Negative Urine Mucus Negative Ur Culture Indicated? Yes Urine Glucose Negative Stl C.difficile Tox PCR Patient ABO/Rh Antibody Screen 02/08/23 02/08/23 02/08/23 17:48 20:38 20:45 WBC RBC Hgb Hct MCV MCH MCHC RDW Plt Count MPV Reticulocyte % (Auto) Immature Gran % Neutrophils % Band Neutrophils % Lymphocytes % Monocytes % Eosinophils % Basophils % Metamyelocytes % Nucleated RBC % Absolute Neutrophils Absolute Lymphocytes Absolute Monocytes Absolute Eosinophils Absolute Basophils RBC Morphology PT INR APTT Fibrinogen VBG Lactate Sodium 137 Potassium 3.5 Chloride 104 Carbon Dioxide 21.2 Anion Gap 11.8 H BUN 11 Creatinine 0.9 Est GFR (CKD-EPI 2020) 72.28 Glucose 138 H Calcium 8.3 L Iron TIBC Transferrin % Sat Ferritin Total Bilirubin AST ALT Alkaline Phosphatase Troponin I < 50 < 50 Total Protein Albumin Procalcitonin Urine Color Urine Clarity Urine pH Ur Specific [place] Urine Protein Urine Ketones Urine Blood Urine Nitrite Urine Bilirubin Urine Urobilinogen Ur Leukocyte Esterase Urine RBC Urine WBC Ur Epithelial Cells Urine Crystals Urine Bacteria Urine Casts Urine Mucus Ur Culture Indicated? Urine Glucose Stl C.difficile Tox PCR Negative Patient ABO/Rh Antibody Screen 02/08/23 02/08/23 02/09/23 23:20 23:20 05:40 WBC RBC Hgb 8.7 L Hct 29.0 L MCV MCH MCHC RDW Plt Count MPV Reticulocyte % (Auto) Immature Gran % Neutrophils % Band Neutrophils % Lymphocytes % Monocytes % Eosinophils % Basophils % Metamyelocytes % Nucleated RBC % Absolute Neutrophils Absolute Lymphocytes Absolute Monocytes Absolute Eosinophils Absolute Basophils RBC Morphology PT INR APTT Fibrinogen VBG Lactate Sodium 139 Potassium 2.7 L* Chloride 105 Carbon Dioxide 16.7 L Anion Gap 17.3 H BUN 10 Creatinine 0.9 Est GFR (CKD-EPI 2020) 72.28 Glucose 223 H Calcium 8.2 L Iron TIBC Transferrin % Sat Ferritin 238 Total Bilirubin 0.3 AST 12 L ALT < 6 L Alkaline Phosphatase 96 Troponin I Total Protein 5.9 L Albumin 1.4 L Procalcitonin Urine Color Urine Clarity Urine pH Ur Specific [place] Urine Protein Urine Ketones Urine Blood Urine Nitrite Urine Bilirubin Urine Urobilinogen Ur Leukocyte Esterase Urine RBC Urine WBC Ur Epithelial Cells Urine Crystals Urine Bacteria Urine Casts Urine Mucus Ur Culture Indicated? Urine Glucose Stl C.difficile Tox PCR Patient ABO/Rh A Positive Antibody Screen NEGATIVE 02/09/23 02/09/23 02/09/23 05:40 05:40 05:40 WBC 23.03 H RBC 2.84 L Hgb 7.6 L Hct 25.7 L MCV 91 MCH 26.8 L MCHC 29.6 L RDW 16.9 H Plt Count 295 MPV 9.9 Reticulocyte % (Auto) 0.7 Cancelled Immature Gran % 0.0 Neutrophils % 89.0 Band Neutrophils % 3 Lymphocytes % 5.0 Monocytes % 2.0 Eosinophils % 0.0 Basophils % 0.0 Metamyelocytes % 1 Nucleated RBC % 0.0 Absolute Neutrophils 21.19 H Absolute Lymphocytes 1.15 L Absolute Monocytes 0.46 Absolute Eosinophils 0.00 Absolute Basophils 0.00 RBC Morphology Normal PT INR APTT Fibrinogen VBG Lactate Sodium Potassium Chloride Carbon Dioxide Anion Gap BUN Creatinine Est GFR (CKD-EPI 2020) Glucose Calcium Iron 5 L TIBC 96 L Transferrin % Sat 5 L Ferritin Total Bilirubin AST ALT Alkaline Phosphatase Troponin I Total Protein Albumin Procalcitonin Urine Color Urine Clarity Urine pH Ur Specific [place] Urine Protein Urine Ketones Urine Blood Urine Nitrite Urine Bilirubin Urine Urobilinogen Ur Leukocyte Esterase Urine RBC Urine WBC Ur Epithelial Cells Urine Crystals Urine Bacteria Urine Casts Urine Mucus Ur Culture Indicated? Urine Glucose Stl C.difficile Tox PCR Patient ABO/Rh Antibody Screen 02/09/23 02/09/23 02/09/23 09:12 09:12 09:12 WBC RBC Hgb Hct MCV MCH MCHC RDW Plt Count MPV Reticulocyte % (Auto) Immature Gran % Neutrophils % Band Neutrophils % Lymphocytes % Monocytes % Eosinophils % Basophils % Metamyelocytes % Nucleated RBC % Absolute Neutrophils Absolute Lymphocytes Absolute Monocytes Absolute Eosinophils Absolute Basophils RBC Morphology PT 11.7 H INR 1.1 APTT 32.8 H Fibrinogen 533 H VBG Lactate 0.7 Sodium Potassium Chloride Carbon Dioxide Anion Gap BUN Creatinine Est GFR (CKD-EPI 2020) Glucose Calcium Iron TIBC Transferrin % Sat Ferritin Total Bilirubin AST ALT Alkaline Phosphatase Troponin I Total Protein Albumin Procalcitonin Urine Color Urine Clarity Urine pH Ur Specific [place] Urine Protein Urine Ketones Urine Blood Urine Nitrite Urine Bilirubin Urine Urobilinogen Ur Leukocyte Esterase Urine RBC Urine WBC Ur Epithelial Cells Urine Crystals Urine Bacteria Urine Casts Urine Mucus Ur Culture Indicated? Urine Glucose Stl C.difficile Tox PCR Patient ABO/Rh Antibody Screen 02/09/23 09:12 WBC RBC Hgb Hct MCV MCH MCHC RDW Plt Count MPV Reticulocyte % (Auto) Immature Gran % Neutrophils % Band Neutrophils % Lymphocytes % Monocytes % Eosinophils % Basophils % Metamyelocytes % Nucleated RBC % Absolute Neutrophils Absolute Lymphocytes Absolute Monocytes Absolute Eosinophils Absolute Basophils RBC Morphology PT INR APTT Fibrinogen VBG Lactate Sodium Potassium Chloride Carbon Dioxide Anion Gap BUN Creatinine Est GFR (CKD-EPI 2020) Glucose Calcium Iron TIBC Transferrin % Sat Ferritin Total Bilirubin AST ALT Alkaline Phosphatase Troponin I Total Protein Albumin Procalcitonin 21.8 Urine Color Urine Clarity Urine pH Ur Specific [place] Urine Protein Urine Ketones Urine Blood Urine Nitrite Urine Bilirubin Urine Urobilinogen Ur Leukocyte Esterase Urine RBC Urine WBC Ur Epithelial Cells Urine Crystals Urine Bacteria Urine Casts Urine Mucus Ur Culture Indicated? Urine Glucose Stl C.difficile Tox PCR Patient ABO/Rh Antibody Screen Time Spent with Patient Time Spent with Patient: 35-49 minutes Time was spent: preparing to see the patient(eg.review tests), obtaining and/or reviewing separately otained hiistory, ordering medications,tests, procedures, referring, communicating with other health career based intervention coordinator and indepentently interpreting results
[2023-02-09] MEDS: Benzocaine/Menthol LOZG 15/BOX 1 EACH SUC (16:58)
--- NOTE | 2023-02-09 17:34 | CHAPLAIN ---
Ginger and I know each other from pervious admissions. She let the care managers know that she'd like a senior contract specialist visit. Usually she asks me to read to her from the Bible (because it's not large enough print for her without her glasses.) This time she also said she needed to make sure a daughter did not have access to her funds. I let her know that the care managers would know more about how to deal with that than I do and let her chiropractic care, Melanie Bass RN, know Ginger wanted to talk with her. I let Ginger know that there are chaplains transportation officer over the weekend for emergencies. I left a Bible with her incase someone had time to read to her over the weekend.
[2023-02-09 18:00] LABS: Potassium 3.5 mmol/L (3.5-5.1)
--- NOTE | 2023-02-09 18:30 | DI.RAD_ITS ---
Exam(s) XR ABDOMEN FLAT PLATE EXAM: 2D digital imaging was performed. CLINICAL HISTORY: gastrographin challenge. COMPARISON: CR XR ABDOMEN FLAT PLATE from 02/09/2023 TECHNIQUE: Supine views of the abdomen performed. Two images were obtained. FINDINGS: BOWEL GAS PATTERN: The oral contrast has advanced into the colon. There is no evidence of obstructio n. Diverticula are seen in the colon. There are moderately distended small bowel loops with contras t present. CALCIFICATIONS: No radiopaque calcifications. OSSEOUS STRUCTURES: Normal for age. OTHER FINDINGS: Atherosclerosis is present. IMPRESSION: 1. Nonobstructive bowel gas pattern. 2. Findings most suggestive of small bowel ileus. DATA REPOSITORY: RADIATION DOSE DELIVERED:
[2023-02-09] MEDS: Bisacodyl 10 MG SUPP PR (19:14)
--- NOTE | 2023-02-09 19:43 | DI.VRAD_ITS ---
PROCEDURE INFORMATION: Exam: XR Abdomen Exam date and time: 02/09/2023 19:10 Age: 62 years old Clinical indication: Bloating and constipation and other: Gastrographin challenge; Patient HX: Gastrographin denny TECHNIQUE: Imaging protocol: Radiologic exam of the abdomen. Views: Frontal supine view of the abdomen. 1 View. COMPARISON: CR XR ABDOMEN FLAT PLATE 02/09/2023 14:19 FINDINGS: Gastrointestinal tract: This study is labeled 1915. Small amount of contrast remains in the proximal stomach. Majority of contrast throughout moderately distended small bowel with contrast present in portions of right and left colon. Colonic diverticula are present. Bones/joints: Unremarkable. IMPRESSION: Most suggestive of small bowel ileus. Dictated and Authenticated by: Sissy Cooper MD. Ordering:JESÚS Smith MD
[2023-02-09] MEDS: Lidocaine 5% Patch 1 PATCH TP (19:50)
[2023-02-09] MEDS: rOPINIRole 0.5 MG TAB PO (20:30)
[2023-02-09] MEDS: Hydrocortisone 10 MG TAB 50 MG PO (20:31)
[2023-02-09] MEDS: Mirtazapine 15 MG TAB PO (20:31)
[2023-02-09] MEDS: Atorvastatin 20 MG TAB PO (20:32)
[2023-02-09] MEDS: Enoxaparin 40 MG/0.4 ML SYR SC (22:30)
[2023-02-09] MEDS: Insulin Glargine 300 UNITS/3 ML PEN 20 UNITS SC (22:30)
[2023-02-10] VITALS (135 sets, daily range): BP systolic 83–166; BP diastolic 43–125; PULSE 53–145; RESP 7–26; TEMP 35.9–36.7; O2SAT 92–100
[2023-02-10] MEDS: Normal Saline 500 ML 30 ML IV
[2023-02-10 00:58] LABS: Campylobacter PCR Negative (Negative); Salmonella PCR Negative (Negative); Shiga Toxin PCR Negative (Negative); Shigella/Enteroinvasive Ecoli Negative (Negative)
[2023-02-10] MEDS: CEFEPIME 2 GM in Normal Saline 100 ML IVPB (04:19)
[2023-02-10] MEDS: metroNIDAZOLE 500 MG/100 ML BAG 100 MG IVPB ×2 (06:20)
--- NOTE | 2023-02-10 07:22 | W.PM.PROGNOT ---
Date of Service Date of service: 02/10/23 Time of Service: 12:00 Assessment and Plan Assessment and plan (1) Ileus, unspecified: Status: Acute Assessment and plan: 62 yo woman with partial/resolving ileus secondary to low-flow HD state and other organ-system problems/infections. She is having some degree of bowel function clinically as well as radiographically. There's no obstruction. Other than distention, her abdominal exam is not concerning. Advance diet as tolerated. Distention will resolve as her other problems are fixed. This isn't a condition treated with surgery. We'll sign off. Call us back if needed. Subjective Subjective Interval history since last seen: Seems to be improving. Has had bowel movements and flatus. No vomiting. Tolerating a diet. Gastrograffin thru into the colon on imaging. No complaints at bedside. Exam Narrative Exam Narrative: Gen: nontoxic and interactive - despite being on multiple pressors Neuro: Alert and seemingly oriented Abdomen: Soft, mild-mod distention present, no significant tenderness. Objective Last Vital Signs Temp 97.3 F L 02/10/23 04:00 Pulse 83 02/09/23 15:53 Resp 12 02/10/23 05:45 BP 126/61 02/09/23 15:53 Pulse Ox 98 02/10/23 05:45 Laboratory Results - last 24 hr 02/09/23 02/09/23 02/09/23 05:40 05:40 09:12 PT 11.7 H INR 1.1 APTT 32.8 H Fibrinogen VBG Lactate Potassium Iron 5 L TIBC 96 L Transferrin % Sat 5 L Ferritin 238 Procalcitonin 02/09/23 02/09/23 02/09/23 09:12 09:12 09:12 PT INR APTT Fibrinogen 533 H VBG Lactate 0.7 Potassium Iron TIBC Transferrin % Sat Ferritin Procalcitonin 21.8 02/09/23 17:30 PT INR APTT Fibrinogen VBG Lactate Potassium 3.5 Iron TIBC Transferrin % Sat Ferritin Procalcitonin Time Spent with Patient Time Spent with Patient: <25 minutes Time was spent: preparing to see the patient(eg.review tests), referring, communicating with other health healthcare social worker and indepentently interpreting results
[2023-02-10 07:34] LABS: BUN 9 mg/dL (7-18); CREATININE 0.7 mg/dL (0.55-1.02); Calcium 7.9 mg/dL (8.5-10.1); Chloride 103 mmol/L (98-107); Estimated GFR 97.72 (mL/min/1.73m2); Glucose 256 mg/dL (74-106); Sodium 137 mmol/L (136-145)
[2023-02-10 07:41] LABS: Abs Immature Grans 0.14 10^3/uL (0.0-0.06); Absolute Lymphocyte Count 1.32 10^3/uL (1.2-3.4); Basophils % 0.1; HCT 21.9 % (36.0-46.0); Lymphocytes % 9.6; MCH 27.3 pg (27.0-33.0); MCHC 31.5 % (32.0-36.0); MCV 87 fL (80-95); MPV 9.7 fL (8.0-11.0); Monocytes % 3.4; Neutrophils % 85.9; Platelet Count 242 10^3/uL (130-400); RBC 2.53 10^6/uL (3.93-5.22); RDW 16.4 % (11.7-14.6); WBC 13.72 10^3/uL (4.4-10.8)
[2023-02-10 07:43] LABS: Absolute Basophil Count 0.01 10^3/uL (0.0-0.2); Absolute Monocyte Count 0.47 10^3/uL (0.1-0.8); Absolute Neutrophil Count 11.79 10^3/uL (1.2-6.7)
[2023-02-10 07:51] LABS: Potassium 2.7 mmol/L (3.5-5.1)
[2023-02-10 08:06] LABS: Diff Comment Diff Reviewed; HGB 6.9 g/dL (11.2-15.7); Hypochromasia 2+
--- NOTE | 2023-02-10 10:16 | PGE_ITS ---
Date of Service Date of service: 02/10/23 Time of Service: 10:16 Assessment and Plan Assessment and plan (1) Sepsis: Status: Acute Assessment and plan: VGB lactate normalized. WBC count improved. Etiology likely GI; questionably colonic bacterial translocation. She has significant amount of stool in rectum. Ascending colon 8 cm. She has a daily suppository on her [facility] but she has been refusing it. Dr. Hilliard is not convinced that she is obstructed; possibly an ileus. gastrograffin study performed and appears to track to the rectum. Continue iv fluid hydration and hemodynamic support w/ norepinephrine, which is being weaned. Add midodrine UA positive for E.Coli. Will change antibiotic course to rocephin 1 gram daily. Stopped flagyl; c.diff negative. CVP line has been placed d/t her poor iv access and need for vasopressors. Titrate N.E. to MAP 65 mm. (2) Small bowel obstruction: Status: Acute Assessment and plan: Vs ileus. Gastrograffin study shows no evidence of blockage. Likely obstipation with large amount of stool in rectum. Clear liquids tolerated and diet has been advanced to minced/moist (edentulous). Appetite, however, is poor. (3) Bipolar 1 disorder: Status: Chronic Assessment and plan: Cont her home meds (4) Hemiparesis affecting right side as late effect of cerebrovascular accident: Status: Acute Assessment and plan: Chronic and stable. Cont ASA and statin. (5) DVT prophylaxis: Status: Acute Assessment and plan: enoxaparin SC (6) Discharge planning issues: Status: Acute Assessment and plan: patient is a DNR/DNI, but wants full treament otherwise. When medically stable then she will return to [facility] Subjective Subjective Patient reports: afebrile; denies vomiting or shortness of breath Interval history since last seen: Poor appetite Exam Narrative Exam Narrative: Ginger is alert and oriented person place time circumstance. Lying in bed. Conversant. She has been applying make-up this AM. HEENT is remarkable for dry mucous membranes, edentulous. Lungs are clear to auscultation Heart is regular rate and rhythm no appreciable murmur Abdomen soft slightly distended with hypoactive bowel sounds. NT. Lower extremities without peripheral cyanosis or edema Neuro exam patient has right hemiplegia w/ contracted right arm and hand as well as contracted right foot, speech is slightly dysarthric but intelligible, she is at her baseline, cognition is intact Objective Last Vital Signs Temp 36.3 C L 02/10/23 04:00 Pulse 83 02/09/23 15:53 Resp 12 02/10/23 05:45 BP 126/61 02/09/23 15:53 Pulse Ox 98 02/10/23 05:45 Laboratory Results - last 24 hr 02/09/23 02/09/23 02/10/23 09:12 17:30 06:10 WBC RBC Hgb Hct MCV MCH MCHC RDW Plt Count MPV Immature Gran % Neutrophils % Lymphocytes % Monocytes % Eosinophils % Basophils % Nucleated RBC % Absolute Neutrophils Absolute Lymphocytes Absolute Monocytes Absolute Eosinophils Absolute Basophils RBC Morphology Hypochromasia Fibrinogen 533 H Sodium 137 Potassium 3.5 2.7 L* Chloride 103 Carbon Dioxide 22.0 Anion Gap 12.0 H BUN 9 Creatinine 0.7 Est GFR (CKD-EPI 2020) 97.72 Glucose 256 H Calcium 7.9 L Magnesium 2.0 Crossmatch 02/10/23 02/10/23 06:10 08:33 WBC 13.72 H RBC 2.53 L Hgb 6.9 L* Hct 21.9 L MCV 87 D MCH 27.3 MCHC 31.5 L RDW 16.4 H Plt Count 242 MPV 9.7 Immature Gran % 1.0 Neutrophils % 85.9 Lymphocytes % 9.6 Monocytes % 3.4 Eosinophils % 0.0 Basophils % 0.1 Nucleated RBC % 0.0 Absolute Neutrophils 11.79 H Absolute Lymphocytes 1.32 Absolute Monocytes 0.47 Absolute Eosinophils 0.00 Absolute Basophils 0.01 RBC Morphology See Below Hypochromasia 2+ Fibrinogen Sodium Potassium Chloride Carbon Dioxide Anion Gap BUN Creatinine Est GFR (CKD-EPI 2020) Glucose Calcium Magnesium Crossmatch See Detail Time Spent with Patient Time Spent with Patient: 25-34 minutes Time was spent: preparing to see the patient(eg.review tests), ordering medications,tests, procedures, referring, communicating with other health emergency care tech, indepentently interpreting results and counseling the patient
[2023-02-10] MEDS: Hydrocortisone 10 MG TAB 50 MG PO ×3 (10:22→22:07)
[2023-02-10] MEDS: Acetaminophen 500 MG TAB PO ×2 (10:23→20:50)
[2023-02-10] MEDS: Multivitamin w/Minerals TAB 1 TAB PO (10:23)
[2023-02-10] MEDS: traZODone 50 MG TAB PO ×2 (10:23→20:50)
[2023-02-10] MEDS: Magnesium Oxide 400 MG TAB 800 MG PO ×2 (10:23→16:54)
[2023-02-10] MEDS: Vitamins B Comp w/C TAB 1 TAB PO (10:23)
[2023-02-10] MEDS: lamoTRIgine 25 MG TAB 50 MG PO (10:23)
[2023-02-10] MEDS: buPROPion-XL 150 MG TABCR PO (10:23)
[2023-02-10] MEDS: Aspirin E.C. 81 MG TABEC PO (10:24)
[2023-02-10] MEDS: Levothyroxine 100 MCG TAB PO (10:24)
[2023-02-10] MEDS: Gabapentin 600 MG TAB PO ×2 (10:24→20:49)
[2023-02-10] MEDS: Omeprazole 20 MG CAPCR PO (10:24)
[2023-02-10] MEDS: Multivitamin TAB 1 TAB PO (10:24)
[2023-02-10] MEDS: Carbidopa 25/Levodopa 100 TAB PO ×4 (10:24→20:50)
[2023-02-10] MEDS: QUEtiapine 100 MG TAB PO ×2 (10:24→20:50)
[2023-02-10] MEDS: LORazepam 0.5 MG TAB PO ×2 (10:25→20:50)
[2023-02-10] MEDS: Glycerin Adult Suppository JAR 1 SUPP PR (10:26)
[2023-02-10] MEDS: Fluticasone NASAL SPRAY 16 GM BTL NS ×2 (10:26→21:03)
[2023-02-10] MEDS: Insulin Aspart 300 UNITS/3 ML PEN SC ×3 (10:37→17:47)
[2023-02-10] MEDS: Midodrine 2.5 MG TAB 5 MG PO ×3 (11:26→20:50)
[2023-02-10] MEDS: POTASSIUM CHLORIDE 20 MEQ/100 ML BAG 50 MEQ IVPB (12:26)
[2023-02-10] MEDS: Diclofenac 1% Gel 100 GM TUBE TP ×2 (12:47→21:03)
[2023-02-10] MEDS: MORPHine 2 MG/ML SYR 1 MG IVP ×3 (12:53→21:02)
[2023-02-10] MEDS: cefTRIAXone 1 GM/50 ML BAG IVPB (12:59)
[2023-02-10] MEDS: QUEtiapine 50 MG TAB PO (14:20)
[2023-02-10] MEDS: VASOPRESSIN 50 UNITS in Normal Saline 497.5 ML 18 UNITS IV (14:46)
[2023-02-10] MEDS: POTASSIUM CHLORIDE 20 MEQ/100 ML BAG 100 MEQ IVPB (17:20)
[2023-02-10] MEDS: Calcium Carbonate *TUMS* 500 MG CHEW PO (18:33)
[2023-02-10] MEDS: Lidocaine 5% Patch 1 PATCH TP (18:33)
[2023-02-10] MEDS: rOPINIRole 0.5 MG TAB PO (20:50)
[2023-02-10] MEDS: Mirtazapine 15 MG TAB PO (20:50)
[2023-02-10] MEDS: Atorvastatin 20 MG TAB PO (20:51)
[2023-02-10] MEDS: Insulin Glargine 300 UNITS/3 ML PEN 20 UNITS SC (22:07)
[2023-02-10] MEDS: Enoxaparin 40 MG/0.4 ML SYR SC (22:07)
[2023-02-11] VITALS (15 sets, daily range): BP systolic 105–148; BP diastolic 51–81; PULSE 72–78; RESP 14–25; TEMP 35.9–36.5; O2SAT 94–98
[2023-02-11 00:36] LABS: Magnesium 1.8 mg/dL (1.8-2.4)
[2023-02-11 00:39] LABS: Anion Gap 12.9 mmol/L (3-11); BUN 12 mg/dL (7-18); CO2 21.1 mmol/L (21.0-32.0); Calcium 8.5 mg/dL (8.5-10.1); Chloride 102 mmol/L (98-107); Glucose 318 mg/dL (74-106); Sodium 136 mmol/L (136-145)
[2023-02-11] MEDS: POTASSIUM CHLORIDE 20 MEQ/100 ML BAG 50 MEQ IVPB ×3 (01:29→10:08)
[2023-02-11] MEDS: Potassium Chloride 20 MEQ TABCR PO (03:23)
[2023-02-11] MEDS: MORPHine 2 MG/ML SYR 1 MG IVP ×2 (03:43→07:58)
[2023-02-11 06:39] LABS: Abs Immature Grans 0.08 10^3/uL (0.0-0.06); Absolute Basophil Count 0.01 10^3/uL (0.0-0.2); Absolute Lymphocyte Count 1.06 10^3/uL (1.2-3.4); Absolute Monocyte Count 0.25 10^3/uL (0.1-0.8); Basophils % 0.1; HCT 32.6 % (36.0-46.0); HGB 10.4 g/dL (11.2-15.7); Immature Grans % 0.7; Lymphocytes % 9.3; MCH 27.8 pg (27.0-33.0); MCHC 31.9 % (32.0-36.0); MCV 87 fL (80-95); MPV 9.6 fL (8.0-11.0); Monocytes % 2.2; Neutrophils % 87.7; Platelet Count 259 10^3/uL (130-400); RBC 3.74 10^6/uL (3.93-5.22); RDW 15.4 % (11.7-14.6); RDW-SD 49.1 fL
[2023-02-11 07:04] LABS: Anion Gap 11.8 mmol/L (3-11); BUN 12 mg/dL (7-18); CO2 22.2 mmol/L (21.0-32.0); Calcium 8.8 mg/dL (8.5-10.1); Chloride 105 mmol/L (98-107); Glucose 316 mg/dL (74-106); Potassium 3.5 mmol/L (3.5-5.1); Sodium 139 mmol/L (136-145)
[2023-02-11] MEDS: Normal Saline Flush 10 ML SYR IVP ×2 (07:57→20:43)
[2023-02-11] MEDS: Insulin Aspart 300 UNITS/3 ML PEN SC ×3 (08:01→17:18)
[2023-02-11] MEDS: buPROPion-XL 150 MG TABCR PO (08:02)
[2023-02-11] MEDS: Magnesium Oxide 400 MG TAB 800 MG PO ×2 (08:02→17:18)
[2023-02-11] MEDS: Multivitamin TAB 1 TAB PO (08:02)
[2023-02-11] MEDS: lamoTRIgine 25 MG TAB 50 MG PO (08:02)
[2023-02-11] MEDS: Omeprazole 20 MG CAPCR PO (08:02)
[2023-02-11] MEDS: traZODone 50 MG TAB PO ×2 (08:03→20:40)
[2023-02-11] MEDS: Aspirin E.C. 81 MG TABEC PO (08:03)
[2023-02-11] MEDS: Carbidopa 25/Levodopa 100 TAB PO ×4 (08:03→20:42)
[2023-02-11] MEDS: Gabapentin 600 MG TAB PO ×2 (08:03→20:39)
[2023-02-11] MEDS: predniSONE 20 MG TAB PO (08:03)
[2023-02-11] MEDS: Acetaminophen 500 MG TAB PO ×2 (08:03→20:41)
[2023-02-11] MEDS: Multivitamin w/Minerals TAB 1 TAB PO (08:03)
[2023-02-11] MEDS: QUEtiapine 100 MG TAB PO ×2 (08:04→20:40)
[2023-02-11] MEDS: Diclofenac 1% Gel 100 GM TUBE TP ×2 (08:04→20:42)
[2023-02-11] MEDS: Fluticasone NASAL SPRAY 16 GM BTL NS ×2 (08:05→20:43)
[2023-02-11] MEDS: Midodrine 2.5 MG TAB 5 MG PO ×3 (08:06→20:42)
[2023-02-11] MEDS: Vitamins B Comp w/C TAB 1 TAB PO (08:06)
[2023-02-11] MEDS: LORazepam 0.5 MG TAB PO ×2 (08:06→20:44)
[2023-02-11] MEDS: Glycerin Adult Suppository JAR 1 SUPP PR (08:38)
[2023-02-11] MEDS: Simethicone 80 MG CHEW 160 MG PO (09:32)
[2023-02-11] MEDS: MORPHine 2 MG/ML SYR IVP (09:32)
[2023-02-11] MEDS: Levothyroxine 100 MCG TAB PO (10:33)
[2023-02-11] MEDS: Celecoxib 100 MG CAP PO ×2 (12:15→20:39)
[2023-02-11] MEDS: traMADol 50 MG TAB PO ×2 (12:15→20:39)
[2023-02-11] MEDS: cefTRIAXone 1 GM/50 ML BAG IVPB (12:17)
[2023-02-11] MEDS: QUEtiapine 50 MG TAB PO (15:06)
--- NOTE | 2023-02-11 16:33 | W.PM.PROGNOT ---
Date of Service Date of service: 02/11/23 Time of Service: 16:46 Assessment and Plan Assessment and plan (1) Sepsis: Status: Acute Assessment and plan: VGB lactate normalized. WBC count improved. Etiology possibly GI; questionably colonic bacterial translocation. She has significant amount of stool in rectum. Ascending colon 8 cm. She has a daily suppository on her detention MAR but she has been refusing it. Has now had a large softly formed BM Eitiology most likely now appears to be E.Coli UTI. Now on Rocephin. Dr. Hilliard is not convinced that she is obstructed; possibly an ileus. gastrograffin study performed and appears to track to the rectum. MIdodrine initiated on 02/10 and levophed stopped early this AM. BP stable. (2) Small bowel obstruction: Status: Acute Assessment and plan: Vs ileus. Gastrograffin study shows no evidence of blockage. Likely obstipation with large amount of stool in rectum. Clear liquids tolerated and diet has been advanced to minced/moist (edentulous). Appetite, however, is poor. She is in agreement to continue daily glycerin suppository. (3) Bipolar 1 disorder: Status: Chronic Assessment and plan: Cont her home meds (4) Hemiparesis affecting right side as late effect of cerebrovascular accident: Status: Acute Assessment and plan: Chronic and stable. Cont ASA and statin. (5) DVT prophylaxis: Status: Acute Assessment and plan: enoxaparin SC (6) Discharge planning issues: Status: Acute Assessment and plan: patient is a DNR/DNI, but wants full treament otherwise. When medically stable then she will return to [facility]. She does state she is on a waiting list for a facility in the [facility]; close to her children. Subjective Subjective Patient reports: no new complaints, still having pain (abdominal discomfort that she relates to eating.) and afebrile; denies vomiting or shortness of breath Interval history since last seen: Had large, soft BM yesterday. Exam Narrative Exam Narrative: Ginger is alert and oriented person place time circumstance. Lying in bed. Conversant. HEENT is remarkable for dry mucous membranes, edentulous. Lungs are clear to auscultation Heart is regular rate and rhythm no appreciable murmur Abdomen soft slightly distended with hypoactive bowel sounds. NT. Lower extremities without peripheral cyanosis or edema Neuro exam patient has right hemiplegia w/ contracted right arm and hand as well as contracted right foot, speech is slightly dysarthric but intelligible, she is at her baseline, cognition is intact Objective Last Vital Signs Temp 36 C L 02/11/23 15:15 Pulse 75 02/11/23 15:15 Resp 24 02/11/23 15:15 BP 130/81 02/11/23 15:15 Pulse Ox 98 02/11/23 15:15 Laboratory Results - last 24 hr 02/11/23 02/11/23 02/11/23 00:15 00:15 05:35 WBC RBC Hgb Hct MCV MCH MCHC RDW Plt Count MPV Immature Gran % Neutrophils % Lymphocytes % Monocytes % Eosinophils % Basophils % Nucleated RBC % Absolute Neutrophils Absolute Lymphocytes Absolute Monocytes Absolute Eosinophils Absolute Basophils Sodium 136 139 Potassium 3.0 L 3.5 Chloride 102 105 Carbon Dioxide 21.1 22.2 Anion Gap 12.9 H 11.8 H BUN 12 12 Creatinine 1.0 1.0 Est GFR (CKD-EPI 2020) 63.70 63.70 Glucose 318 H 316 H Calcium 8.5 8.8 Magnesium 1.8 02/11/23 05:35 WBC 11.40 H RBC 3.74 L Hgb 10.4 L D Hct 32.6 L MCV 87 MCH 27.8 MCHC 31.9 L RDW 15.4 H Plt Count 259 MPV 9.6 Immature Gran % 0.7 Neutrophils % 87.7 Lymphocytes % 9.3 Monocytes % 2.2 Eosinophils % 0.0 Basophils % 0.1 Nucleated RBC % 0.0 Absolute Neutrophils 10.00 H Absolute Lymphocytes 1.06 L Absolute Monocytes 0.25 Absolute Eosinophils 0.00 Absolute Basophils 0.01 Sodium Potassium Chloride Carbon Dioxide Anion Gap BUN Creatinine Est GFR (CKD-EPI 2020) Glucose Calcium Magnesium Time Spent with Patient Time Spent with Patient: 35-49 minutes Time was spent: preparing to see the patient(eg.review tests), obtaining and/or reviewing separately otained hiistory, ordering medications,tests, procedures, referring, communicating with other health senior care provider, indepentently interpreting results and counseling the patient
[2023-02-11] MEDS: Lidocaine 5% Patch 1 PATCH TP (17:25)
[2023-02-11] MEDS: rOPINIRole 0.5 MG TAB PO (20:39)
[2023-02-11] MEDS: Mirtazapine 15 MG TAB PO (20:40)
[2023-02-11] MEDS: Atorvastatin 20 MG TAB PO (20:41)
[2023-02-11] MEDS: Insulin Glargine 300 UNITS/3 ML PEN 20 UNITS SC (21:47)
[2023-02-11] MEDS: Enoxaparin 40 MG/0.4 ML SYR SC (21:47)
[2023-02-12 00:25] VITALS: BP 121/67; PULSE 75; RESP 24; TEMP 36.2; O2SAT 98
[2023-02-12 04:00] VITALS: BP 117/68; PULSE 73; RESP 19; TEMP 36.4; O2SAT 98
[2023-02-12] MEDS: Normal Saline Flush 10 ML SYR IVP (05:21)
[2023-02-12 06:02] LABS: Abs Immature Grans 0.09 10^3/uL (0.0-0.06); Absolute Basophil Count 0.01 10^3/uL (0.0-0.2); Absolute Eosinophil Count 0.01 10^3/uL (0.0-0.7); Absolute Lymphocyte Count 2.19 10^3/uL (1.2-3.4); Absolute Monocyte Count 0.54 10^3/uL (0.1-0.8); Basophils % 0.1; Eosinophils % 0.1; HCT 34.4 % (36.0-46.0); HGB 10.7 g/dL (11.2-15.7); Immature Grans % 0.9; MCH 27.6 pg (27.0-33.0); MCHC 31.1 % (32.0-36.0); MCV 89 fL (80-95); MPV 9.3 fL (8.0-11.0); Monocytes % 5.7; Neutrophils % 70.2; Platelet Count 295 10^3/uL (130-400); RBC 3.87 10^6/uL (3.93-5.22); RDW 15.8 % (11.7-14.6); RDW-SD 51.4 fL; WBC 9.54 10^3/uL (4.4-10.8)
[2023-02-12 08:00] VITALS: BP 118/64; PULSE 84; RESP 12; TEMP 37.1; O2SAT 94
--- NOTE | 2023-02-12 08:41 | PDOC.CMPRO ---
Date of service: 02/12/23 Time of Service: 08:41 Care Management Progress Note Progress Note Text Progress Note Text: S/O: A: 62 year old female admitted to [facility] 02[facility]23 for sepsis,, SBO P:?Anticipate, Ginger will return to the [facility] when medically cleared. She will likely transport via EMS, coordinated by CM. She will follow up with facility providers and discharge plan of care. CM will continue to follow.
[2023-02-12] MEDS: LORazepam 0.5 MG TAB PO (08:49)
[2023-02-12] MEDS: traMADol 50 MG TAB PO (08:49)
[2023-02-12] MEDS: Cefpodoxime 200 MG TAB PO (08:49)
[2023-02-12] MEDS: Celecoxib 100 MG CAP PO (08:49)
[2023-02-12] MEDS: lamoTRIgine 25 MG TAB 50 MG PO (08:49)
[2023-02-12] MEDS: buPROPion-XL 150 MG TABCR PO (08:50)
[2023-02-12] MEDS: traZODone 50 MG TAB PO (08:50)
[2023-02-12] MEDS: Midodrine 2.5 MG TAB 5 MG PO (08:50)
[2023-02-12] MEDS: predniSONE 10 MG TAB PO (08:50)
[2023-02-12] MEDS: Carbidopa 25/Levodopa 100 TAB PO ×2 (08:50→12:17)
[2023-02-12] MEDS: Omeprazole 20 MG CAPCR PO (08:50)
[2023-02-12] MEDS: Multivitamin w/Minerals TAB 1 TAB PO (08:50)
[2023-02-12] MEDS: QUEtiapine 100 MG TAB PO (08:50)
[2023-02-12] MEDS: Aspirin E.C. 81 MG TABEC PO (08:50)
[2023-02-12] MEDS: Vitamins B Comp w/C TAB 1 TAB PO (08:50)
[2023-02-12] MEDS: Acetaminophen 500 MG TAB PO (08:51)
[2023-02-12] MEDS: Magnesium Oxide 400 MG TAB 800 MG PO (08:51)
[2023-02-12] MEDS: Gabapentin 600 MG TAB PO (08:51)
[2023-02-12] MEDS: Multivitamin TAB 1 TAB PO (08:51)
[2023-02-12] MEDS: Fluticasone NASAL SPRAY 16 GM BTL NS (08:52)
[2023-02-12] MEDS: Insulin Aspart 300 UNITS/3 ML PEN SC ×2 (08:52→12:18)
[2023-02-12] MEDS: Diclofenac 1% Gel 100 GM TUBE TP (08:52)
[2023-02-12] MEDS: Levothyroxine 100 MCG TAB PO (08:55)
--- NOTE | 2023-02-12 09:22 | PDOC.CMDIS ---
Date of service: 02/12/23 Time of Service: 09:22 LACE Index Scoring Tool Questions: Length of Stay (in days): 3 Was the patient admitted via the E.D.?: Yes Comorbidities: Cerebrovascular Disease E.D. Visits: 4 Answers: Total Score: 11 Risk of Readmission: High Risk Care Management Discharge Plan Reason for Hospitalization: Sepsis, Abdominal Pain Discharge Plan: Ginger is discharged back to the [facility] via EMS. Ginger will follow up with facility/community providers and her discharge plan of care as instructed. Patient/Family Education Needs: Review discharge instructions, limitations, medications and plan to follow up with community providers. Discuss ask me three. Services Needed at Discharge: Longterm Facility (Return to the [facility] ) and Transportation ([facility]/EMS Coordinated by )
[2023-02-12] MEDS: Lidocaine Patch Removal 1 EACH TP (09:24)
[2023-02-12] MEDS: Glycerin Adult Suppository JAR 1 SUPP PR (09:25)
--- NOTE | 2023-02-12 09:27 | W.PM.DS.N ---
Date of service: 02/12/23 Time of Service: 09:28 DS: Diagnosis Discharge Diagnosis (1) Sepsis: Status: Resolved Asessment and Plan: GB lactate normalized. WBC count improved. Etiology possibly GI; questionably colonic bacterial translocation.? She has significant amount of stool in rectum.? Ascending colon 8 cm. She has a daily suppository on her [place] [facility] MAR but she has been refusing it. Has now had a large softly formed BM Eitiology most likely now appears to be E.Coli UTI.? Antibiotic coverage was changed to Rocephin and course completed. Dr. Hilliard is not convinced that she is obstructed; possibly an ileus. gastrograffin study performed and appears to track to the rectum.? MIdodrine initiated on 02/10 and levophed stopped.? BP stable. (2) Small bowel obstruction: Status: Deleted Asessment and Plan: Versus ileus. Gastrograffin study shows no evidence of blockage.? Likely obstipation with large amount of stool in rectum. Clear liquids tolerated and diet has been advanced to minced/moist (edentulous).? Appetite, however, is poor. She is in agreement to continue daily glycerin suppository.? (3) Bipolar 1 disorder: Status: Chronic Asessment and Plan: Continue routine home meds. (4) Hemiparesis affecting right side as late effect of cerebrovascular accident: Status: Chronic Asessment and Plan: Chronic and stable.? Cont ASA and statin. (5) Discharge planning issues: Status: Deleted Asessment and Plan: Return to [facility]. Discharge Plan Disposition Patient Disposition: Senior Living Facility(SNF) Condition: Improving Discharge Details Reason For Visit: Sepsis, Possible Small Bowel Obstruction Admit Date/Time: 02/08/23 17:39 Admit Provider: Jc Jack Attending Provider: Jc Jack [facility]: Ms Barrera is a 62 year old female with PMHx of chronic constipation on linzess, as well as h/o chronic abdominal pain, h/o CVA w/ aphasia, IDDM2, emphysematous pyelonephritis and nephrolithiasis, who was brought to [facility] ED today by ambulance from the [facility] after developing abdominal pain?RLQ, nausea and vomiting. Patient was found to be hypotensive and tachycardic (BP 80/50 and remained hypotensive after 2 liters of iv fluids, HR 115 bpm which came down after iv fluids). CT of the abdomen and pelvis suggested SBO w/ moderately dilated loops of distal small bowel and an enlarged uterine fibroid. Labs were remarkable for leukocytosis 11,250, elevated lactate of 4.2, Hb of 8.8 gm (prior Hb 10.1 gm one month ago), UA was fairly unremarkable, WBC 10-20/hpf, neg. for proteins, ketones, nitrites, small leukocyte esterase, rare bacteria. LFT were normal. Patient received 2 liters of fluids while in the ED, surgical consultation was obtained w/ Dr. Hilliard per ED requests. He indicated that he was not convinced of a definite small bowel obstruction. Blood cultures were obtained and patient was started on Levaquin and Flagyl. patient is being admitted to ICU for hemodynamic support, broad spectrum antibiotics.? See Diagnosis PCP in 1-2 weeks. Home Meds and New Rx's Prescriptions: New calcium carbonate 200 mg calcium (500 mg) Tablet,Chewable 500 mg PO Q4H PRN PRN (Reason: dyspepsia) Qty: 0 0RF quetiapine 50 mg Tablet 50 mg PO DAILY@1400 Qty: 0 0RF Continued metformin 500 mg tablet 1,000 mg PO BID lactase [Lactaid] 3,000 unit tablet 9,000 unit PO TID Rx Instructions: administer with meals and/or snacks simethicone 180 mg capsule 180 mg PO TID PRN gabapentin 600 mg tablet 600 mg PO BID quetiapine 100 mg tablet 100 mg PO TID Patient Comments: 100 mg BID, 50 mg daily at 2pm trazodone 50 mg tablet 50 mg PO BID lidocaine 5 % adhesive patch,medicated 1 patch topical Q24H Qty: 0 0RF Rx Instructions: 01/19/23 4% patch per med req with [facility] med list. -hb docusate sodium [Colace] 100 mg capsule 200 mg PO .BID, PRN Orajel 3X Mouth Sores 20-0.1-0.15 % gel 1 applic mucous membrane QID PRN Qty: 5.1 0RF glycerin (adult) [Fleet Glycerin (Adult)] Suppository 1 supp MO DAILY Qty: 0 0RF tramadol 50 mg Tablet 50 mg PO Q4H PRN PRNQty: 0 0RF Rx Instructions: per [facility] paperwork script stopped 01/31/23 atorvastatin 20 mg Tablet 20 mg PO QPM Qty: 0 0RF lactase [Lactaid] 3,000 unit Tablet 3,000 unit PO ONCE PRN Rx Instructions: administer with meals and/or snacks multivitamin Tablet 1 tab PO DAILY Rx Instructions: Multivit with beta carotene and Iron calcium carbonate [Tums] 200 mg calcium (500 mg) Tablet,Chewable 500 mg PO Q4H PRN PRN (Reason: Dyspepsia) mirtazapine 15 mg Tablet 15 mg PO QHS lamotrigine [Lamictal] 25 mg Tablet 50 mg PO DAILY Qty: 1 0RF polyethylene glycol 3350 [Miralax] 17 gram/dose Powder 17 g PO DAILY PRN aspirin 81 mg Tablet,Delayed Release (Dr/Ec) 81 mg PO DAILY bupropion HCl 150 mg tablet extended release 24 hr 150 mg PO QAM cetirizine 10 mg Tablet 10 mg PO QAM linaclotide 145 mcg Capsule 145 mcg PO DAILY acetaminophen 500 mg Tablet 500 mg PO BID diclofenac sodium 1 % Gel 1 applic TOPICAL BID fluticasone propionate [Flonase Allergy Relief] 50 mcg/actuation Burnet,Suspension 1 spray INTRANASAL BID Trulicity 1.5 mg/0.5 mL pen injector 1 device SUBCUT DIRECTED Rx Instructions: weekly levothyroxine 100 mcg Tablet 100 mcg PO DAILY omeprazole 20 mg Capsule,Delayed Release(Dr/Ec) 20 mg PO DAILY carbidopa-levodopa 25-100 mg Tablet 1 tab PO QID B-complex with vitamin C Capsule 1 cap PO DAILY Centrum Complete 18-400 mg-mcg Tablet 1 tab PO DAILY ropinirole 0.5 mg Tablet 0.5 mg PO QHS Rx Instructions: administer 1-3 hours before bedtime lorazepam 0.5 mg Tablet 0.5 mg PO BID Mckayla Protect (zinc oxide) 12 % Cream 1 applic topical PRN PRNQty: 57 0RF albuterol sulfate [Ventolin HFA] 90 mcg/actuation Hfa Aerosol Inhaler 2 puff INHALATION Q4H PRN PRNQty: 0 0RF magnesium oxide 400 mg magnesium Tablet 800 mg PO BIDWMEAL Qty: 0 0RF No Action levofloxacin 750 mg tablet 750 mg PO DAILY Qty: 3 0RF prednisone 20 mg tablet 40 mg PO DAILY Qty: 6 0RF Discharge Instructions Activity:: Activity as Tolerated Equipment/Supplies:: No Equipment Needed Diet:: resume diabetic diet Discharge Orders Discharge Orders: Discharge Order (Routine); Ordered 02/12/23 Ordered By: Scott Lea Discharge Data Discharge Date/Time-TO BE ENTERED AT DEPARTURE: 02/12/23 12:40 DS: Summary Time Spent with Patient providing and/or coordinating discharge services: Greater than 30 minutes Status at Discharge Functional status at discharge: bed bound Overall status at discharge: patient is back to baseline Mental Status: mental status grossly normal Speech and Movement: speech clear Mood: euthymic mood Affect: blunted Exam Narrative Exam Narrative: Ginger is alert and oriented person place time circumstance. Lying in bed. Conversant. HEENT is remarkable for dry mucous membranes, edentulous. Lungs are clear to auscultation Heart is regular rate and rhythm no appreciable murmur Abdomen soft slightly distended with hypoactive bowel sounds. NT. Lower extremities without peripheral cyanosis or edema Neuro exam patient has right hemiplegia w/ contracted right arm and hand as well as contracted right foot, speech is slightly dysarthric but intelligible, she is at her baseline, cognition is intact Psych Mental Status: mental status grossly normal Speech and Movement: speech clear Mood: euthymic mood Affect: blunted DS: Data Vitals/I&O Vitals and I&O: Vital Signs Temperature 36.4 C L 02/12/23 04:00 Temperature Source Temporal Artery Scan 02/12/23 04:00 Pulse 73 02/12/23 04:00 Pulse Rhythm Regular 02/12/23 04:45 Pulse 74 02/11/23 00:00 Respiratory Rate 19 02/12/23 04:00 Respiratory Effort Normal, Non-Labored 02/12/23 04:45 Respiratory Depth Normal 02/12/23 04:45 Respiratory Pattern Normal 02/12/23 04:45 Blood Pressure 117/68 02/12/23 04:00 Blood Pressure Mean 90 02/11/23 07:10 Blood Pressure Position Supine 02/11/23 07:10 Pulse Oximetry 98 02/12/23 04:00 Oxygen Delivery Method Nasal Cannula 02/12/23 04:00 Oxygen Flow Rate 1 02/12/23 04:00 Pain Level 7 02/11/23 21:09 Comment MAP 80 02/12/23 04:00 Arterial Systolic 102 02/11/23 00:00 Arterial Diastolic 51 02/11/23 00:00 Arterial Mean 70 02/11/23 00:00 Intake & Output 02/11/23 02/11/23 02/12/23 11:59 23:59 11:59 Intake Total 817.503 / 2197.503 1380 / 2197.503 Output Total 315 / 1315 1000 / 1315 550 / 550 Balance 502.503 / 882.503 380 / 882.503 -550 / -550 Weight 72.2 kg 70.2 kg Intake: IV 187.503 / 367.503 180 / 367.503 Oral 630 / 1830 1200 / 1830 Output: Urine 315 / 1315 1000 / 1315 550 / 550 Other: Urine Color Yellow Yellow Yellow Urine Appearance Clear Clear Clear Comment catheter leaked. pt with large urine incontinence. discontinued and new catheter placed Martinez in place , due to be removed in AM Martinez leaking present Stool Size Moderate Stool Characteristics Liquid Mucoid Data Completed and Pending Labs on day of discharge: Labs from last 24 hours 02/12/23 05:35 WBC 9.54 RBC 3.87 L Hgb 10.7 L Hct 34.4 L MCV 89 MCH 27.6 MCHC 31.1 L RDW 15.8 H Plt Count 295 MPV 9.3 Immature Gran % 0.9 Neutrophils % 70.2 Lymphocytes % 23.0 Monocytes % 5.7 Eosinophils % 0.1 Basophils % 0.1 Nucleated RBC % 0.0 Absolute Neutrophils 6.70 Absolute Lymphocytes 2.19 Absolute Monocytes 0.54 Absolute Eosinophils 0.01 Absolute Basophils 0.01 Preliminary micro results at discharge 02/08/23 14:05 Blood Culture - Preliminary Blood NO GROWTH 72 HOURS 02/08/23 13:56 Blood Culture - Preliminary Blood NO GROWTH 72 HOURS PFSH All Active Problems (Updated 03/21/23 @ 00:06 by MIGUEL ÁNGEL JARRELL) Diabetes mellitus type 2, insulin dependent (Acute) Diarrhea (Acute) Bacteremia (Acute) UTI (urinary tract infection) (Acute) Complicated UTI (urinary tract infection) (Acute) Hypoalbuminemia (Acute) Hyperglycemia (Acute) High anion gap metabolic acidosis (Acute) Anemia (Chronic) Advanced care planning/counseling discussion (Acute) Gallstones (Acute) Tardive dyskinesia (Acute) Parkinsonism (Acute) History of stroke (Acute) Bipolar 1 disorder (Chronic) Bipolar affective disorder, current episode depressed (Acute) rule out bipolar disorder reported by patient. Antiepileptics maybe preventing manic episode. Major depressive disorder, recurrent, severe with psychotic features (Acute) Current presentation is depression. She may have bipolar affective disorder. Ambulatory dysfunction (Chronic) Hemiparesis affecting right side as late effect of cerebrovascular accident (Chronic) Dysphagia as late effect of cerebrovascular accident (CVA) (Chronic) Dysarthria as late effect of cerebrovascular accident (CVA) (Acute) Medical History Abdominal bloating Abdominal pain Acute bronchitis Anxiety Aphasia as late effect of cerebrovascular accident Arthritis of left shoulder region Autoimmune disorder Bipolar 1 disorder Cholelithiasis with acute cholecystitis s/p cholecystostomy and stone extraction in 2014 ([facility]), tube now pulled. 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 insufficiency Chronic chest pain [employer] vasculitis Constipation Cough Diarrhea Diverticulosis Emphysematous pyelonephritis Hemiparesis affecting right side as late effect of cerebrovascular accident (CVA) Hepatitis C History of multiple cerebrovascular accidents (CVAs) Hydronephrosis of right kidney Hypertension Hypothyroidism IDDM (insulin dependent diabetes mellitus) Ileus Left rotator cuff tear Lumbar disc disease Microcytic anemia Neck pain Nephrolithiasis Neurogenic bladder Obesity (BMI 30.0-34.9) Palliative care encounter Pyelonephritis Pyuria due to bacterial urinary tract infection Staghorn calculus Static encephalopathy Steroid dependent Uterine mass likely a fibroid UTI (urinary tract infection) UTI (urinary tract infection) Surgical History Abnormal cholangiogram H/O cervical spine surgery H/O foot surgery H/O wrist surgery History of extraction of renal calculus 12/13/2018 - [facility] History of hip surgery right History of lumbosacral spine surgery S/P cystoscopy with ureteral stent placement [facility] 11/2018 Status post creation of urethral sling by suprapubic approach Family History Mother Stroke Social History Smoking/Tobacco Use Status: Former Tobacco Use Smoking risk assessment performed?: Yes Alcohol Intake: former Substance use type: former substance user and IV drugs Housing: [facility] Number of Children: 5 Education Level: elementary school Details: 6th grade, special ed, left school age 16. Current gender identity: female What is your relationship status?: Panel score (0-1 are the most socially isolated patients): 0 What type of physical activity do you participate in: none Do you feel safe at home: Yes Do you feel safe in your relationship?: Yes Time Spent with Patient Time Spent with Patient: <45 minutes Time was spent: preparing to see the patient(eg.review tests), obtaining and/or reviewing separately otained hiistory, referring, communicating with other health career placement specialist, indepentently interpreting results and care coordination
[2023-02-12 11:14] LABS: Transferrin 82 mg/dL (201-352)
== END 2023-02-12 12:40 | disposition skilled nursing facility (03) | DRG 871 ==
LOC: ER 17:49 → ICU 02-09 08:37
PROVIDERS: Family Medicine; General Practice; Student in an Organized Health Care Education/Training Program; Admitting Provider Internal Medicine; Emergency Provider Emergency Medicine; PCP Family Medicine; Visit Provider Internal Medicine
DX: A41.9 Sepsis, unspecified organism; R65.21 Severe sepsis with septic shock; I69.351 Hemiplegia and hemiparesis following cerebral infarction affecting right dominant side; F31.5 Bipolar disorder, current episode depressed, severe, with psychotic features; E27.40 Unspecified adrenocortical insufficiency; K56.7 Ileus, unspecified; N39.0 Urinary tract infection, site not specified; G20 Parkinson's disease; Z79.4 Long term (current) use of insulin; G24.01 Drug induced subacute dyskinesia; I69.391 Dysphagia following cerebral infarction; R13.10 Dysphagia, unspecified; I69.322 Dysarthria following cerebral infarction; F41.9 Anxiety disorder, unspecified; D89.89 Other specified disorders involving the immune mechanism, not elsewhere classified; K59.00 Constipation, unspecified; R07.9 Chest pain, unspecified; K57.90 Diverticulosis of intestine, part unspecified, without perforation or abscess without bleeding; I10 Essential (primary) hypertension; E03.9 Hypothyroidism, unspecified; D50.9 Iron deficiency anemia, unspecified; Z86.19 Personal history of other infectious and parasitic diseases; N31.9 Neuromuscular dysfunction of bladder, unspecified; Z66 Do not resuscitate; E87.6 Hypokalemia; E11.65 Type 2 diabetes mellitus with hyperglycemia; E88.09 Other disorders of plasma-protein metabolism, not elsewhere classified; B96.20 Unspecified Escherichia coli [E. coli] as the cause of diseases classified elsewhere
CPT/HCPCS: 36558; 36415; 36430; 36591; 51702; 71045; 80048; 80053; 84145; 85384; 86850; 86900; 86901; 86920; 87040; 87077; 87493; 87505; 87635; 93005; 93308; 96361; 96365; 96366; 96367; 96368; 99285; J1650; 74018; 74177; 81003; 81015; 82270; 82728; 83540; 83550; 83605; 83630; 83735; 84132; 84466; 84484; 85014; 85018; 85025; 85045; 85610; 85730; 87086; 87186; 93010; 99232; 99233; 99239; 99291; J0131; J0696; J1170; J1720; J1956; J2060; J2270; J2405; J3475; J3480; J3490; J7512; P9016

== ENCOUNTER 2023-02-18 12:53 | Emergency (ER) | payer MEDICAID, SELFPAY ==
[2023-02-18 12:52] VITALS: BP 87/58; PULSE 90; RESP 18; TEMP 36.5; O2SAT 94
--- NOTE | 2023-02-18 13:15 | DI.RAD_ITS ---
Exam(s) XR CHEST 2V PA LATERAL EXAM: XR CHEST 2V PA LATERAL CLINICAL HISTORY: cough. TECHNIQUE: 2D digital imaging was performed. COMPARISON: CR,XR XR PORTABLE CHEST AP POST LINE from 02/08/2023 FINDINGS: 2 views: Fusion plate in the lower cervical spine again noted. Heart size is normal. The mediastinum is not widened. Lungs are clear. No infiltrates nor pleural effusions. IMPRESSION: No acute pulmonary findings. DATA REPOSITORY: RADIATION DOSE DELIVERED:
--- NOTE | 2023-02-18 13:16 | W.ED.GENAD ---
Discharge Plan Disposition Patient Disposition: [facility](SNF) Condition: Stable Discharge Details Clinical Impression: General weakness Primary Care Provider: Agueda Bingham ED Provider: Chance Power [place] Meds and New Rx's Prescriptions: New cefpodoxime 200 mg tablet 200 mg PO Q12H Qty: 14 0RF Rx Instructions: must administer with a meal/food Continued metformin 500 mg tablet 1,000 mg PO BID lactase [Lactaid] 3,000 unit tablet 9,000 unit PO TID Rx Instructions: administer with meals and/or snacks simethicone 180 mg capsule 180 mg PO TID PRN gabapentin 600 mg tablet 600 mg PO BID quetiapine 100 mg tablet 100 mg PO TID Patient Comments: 100 mg BID, 50 mg daily at 2pm trazodone 50 mg tablet 50 mg PO BID lidocaine 5 % adhesive patch,medicated 1 patch topical Q24H Qty: 0 0RF Rx Instructions: 01/19/23 4% patch per med req with [employer] list. -hb docusate sodium [Colace] 100 mg capsule 200 mg PO .BID, PRN Orajel 3X Mouth Sores 20-0.1-0.15 % gel 1 applic mucous membrane QID PRN Qty: 5.1 0RF glycerin (adult) [Fleet Glycerin (Adult)] Suppository 1 supp [place] DAILY Qty: 0 0RF tramadol 50 mg Tablet 50 mg PO Q4H PRN PRNQty: 0 0RF Rx Instructions: per [employer] paperwork script stopped 01/31/23 atorvastatin 20 mg Tablet 20 mg PO QPM Qty: 0 0RF lactase [Lactaid] 3,000 unit Tablet 3,000 unit PO ONCE PRN Rx Instructions: administer with meals and/or snacks multivitamin Tablet 1 tab PO DAILY Rx Instructions: Multivit with beta carotene and Iron calcium carbonate [Tums] 200 mg calcium (500 mg) Tablet,Chewable 500 mg PO Q4H PRN PRN (Reason: Dyspepsia) calcium carbonate 200 mg calcium (500 mg) Tablet,Chewable 500 mg PO Q4H PRN PRN (Reason: dyspepsia) Qty: 0 0RF quetiapine 50 mg Tablet 50 mg PO DAILY@1400 Qty: 0 0RF mirtazapine 15 mg Tablet 15 mg PO QHS lamotrigine [Lamictal] 25 mg Tablet 50 mg PO DAILY Qty: 1 0RF polyethylene glycol 3350 [Miralax] 17 gram/dose Powder 17 g PO DAILY PRN aspirin 81 mg Tablet,Delayed Release (Dr/Ec) 81 mg PO DAILY bupropion HCl 150 mg tablet extended release 24 hr 150 mg PO QAM cetirizine 10 mg Tablet 10 mg PO QAM linaclotide 145 mcg Capsule 145 mcg PO DAILY acetaminophen 500 mg Tablet 500 mg PO BID diclofenac sodium 1 % Gel 1 applic TOPICAL BID fluticasone propionate [Flonase Allergy Relief] 50 mcg/actuation [place],Suspension 1 spray INTRANASAL BID Trulicity 1.5 mg/0.5 mL pen injector 1 device SUBCUT DIRECTED Rx Instructions: weekly levothyroxine 100 mcg Tablet 100 mcg PO DAILY omeprazole 20 mg Capsule,Delayed Release(Dr/Ec) 20 mg PO DAILY carbidopa-levodopa 25-100 mg Tablet 1 tab PO QID B-complex with vitamin C Capsule 1 cap PO DAILY Centrum Complete 18-400 mg-mcg Tablet 1 tab PO DAILY ropinirole 0.5 mg Tablet 0.5 mg PO QHS Rx Instructions: administer 1-3 hours before bedtime lorazepam 0.5 mg Tablet 0.5 mg PO BID Mckayla Protect (zinc oxide) 12 % Cream 1 applic topical PRN PRNQty: 57 0RF albuterol sulfate [Ventolin HFA] 90 mcg/actuation Hfa Aerosol Inhaler 2 puff INHALATION Q4H PRN PRNQty: 0 0RF magnesium oxide 400 mg magnesium Tablet 800 mg PO BIDWMEAL Qty: 0 0RF Discontinued cefpodoxime 200 mg Tablet 200 mg PO Q12H Qty: 10 0RF Discharge Instructions Additional Instructions: Your blood work did not show signs of a serious infection. Your magnesium level was low and you were given magnesium IV follow up with your primary care provider within 1 week if you feel more ill, have sevevere pain or difficulty breathing return to the emergency department try to make sure you are drinking plenty of fluids to stay hydrated Medical Decision Making 62 yo female with hx of prior cva's, dm, who was recently admitted for urosepsis earlier this month comes in from the [facility] with feeling lethargic for 2-3 days. She has not had any fevers, she does note a cough. Denies any abdominal pain or vomiting. She does have slurred speech and right sided weakness from her prior cva's. She arrives with a bp in the 80's systolic and mentating well. She has no rashes, nontender abdomen. Given recent urosepsis concern for recurrent urosepsis, will obtain cbc, cmp, procalcitonin, fluvid and cxr and administer a liter normal saline and reassess. bp now 100/72, she feels improved with fluids, labs reassuring against sepsis, negative procalcitonin, they were only able to do a culture with the urine provided, she does state she's had some dysuria so will treat wtih antibiotics. Will replete her mag level, if bp remains stable suspect she can [facility] pt tolerating po and has no complaints, bp 110/74, hr 80, no abdominal tenderness. Given reassuring labs and vitals feel she is safe for d/c and can f[facility], return precautions given Differential Diagnosis Differential Diagnosis: uti, pneumonia, covid Medical Records Medical records reviewed: Yes I reviewed the patient's medical records. Imaging Data Radiologic Study: Attestation: I personally reviewed and interpreted this imaging study as follows: Imaging: X-Ray Radiologist's impression: no acute findings HPI General Mode of arrival: EMS. Date/Time Provider Initiated Documentation: 02/18/23 12:53. Limitations to Documentation: no limitations. Information obtained by: patient. History of Present Illness 62 year old F presents to the emergency department with the chief complaint of tired, described as moderate, Patient started experiencing this day(s) (3) and it has been constant. No relieving factors improve symptom(s), No exacerbating factors reported . Patient notes cough. Patient did receive the following treatments prior to arrival, none Related Data Home Medications Medication Instructions Recorded Confirmed mirtazapine 15 mg tablet 15 mg PO QHS 03/26/20 02/08/23 lamotrigine 25 mg tablet (Lamictal) 50 mg PO DAILY #1 tab 04/08/20 02/08/23 polyethylene glycol 3350 17 17 g PO DAILY PRN 04/19/20 02/08/23 gram/dose oral powder (Miralax) metformin 500 mg tablet 1,000 mg PO BID 12/20/20 02/08/23 lactase 3,000 unit tablet (Lactaid) 9,000 unit PO TID 06/22/21 01/15/23 acetaminophen 500 mg tablet 500 mg PO BID 06/01/22 02/08/23 aspirin 81 mg tablet,delayed 81 mg PO DAILY 06/01/22 02/08/23 release bupropion HCl 150 mg 24 hr tablet, 150 mg PO QAM 06/01/22 02/08/23 extended release cetirizine 10 mg tablet 10 mg PO QAM 06/01/22 02/08/23 diclofenac sodium 1 % topical gel 1 applic topical BID 06/01/22 02/08/23 dulaglutide 1.5 mg/0.5 mL 1 device subcut DIRECTED 06/01/22 02/08/23 subcutaneous [facility] ([facility]) fluticasone propionate 50 1 spray intranasal BID 06/01/22 02/08/23 mcg/actuation nasal spray,suspension (Flonase Allergy Relief) linaclotide 145 mcg capsule 145 mcg PO DAILY 06/01/22 01/15/23 B-complex with vitamin C 1 cap PO DAILY 11/09/22 02/08/23 carbidopa 25 mg-levodopa 100 mg 1 tab PO QID 11/09/22 02/08/23 tablet levothyroxine 100 mcg tablet 100 mcg PO DAILY 11/09/22 02/08/23 multivitamin-ferrous 1 tab PO DAILY 11/09/22 01/15/23 fumarate-folic acid 18 mg-400 mcg tablet (Centrum Complete) omeprazole 20 mg capsule,delayed 20 mg PO DAILY 11/09/22 02/08/23 release ropinirole 0.5 mg tablet 0.5 mg PO QHS 11/09/22 02/08/23 atorvastatin 20 mg tablet 20 mg PO QPM #0 tabs 11/28/22 02/08/23 glycerin (adult) (Fleet Glycerin 1 supp MN DAILY #0 ea 11/28/22 02/08/23 (Adult) rectal suppository) tramadol 50 mg tablet 50 mg PO Q4H PRN PRN #0 tabs 11/28/22 01/15/23 lorazepam 0.5 mg tablet 0.5 mg PO BID 12/24/22 02/08/23 albuterol sulfate 90 mcg/actuation 2 puff inhalation Q4H PRN PRN #0 01/01/23 02/08/23 aerosol inhaler (Ventolin HFA) grams magnesium oxide 800 mg PO BIDWMEAL #0 tabs 01/01/23 02/08/23 zinc oxide 12 % topical cream 1 applic topical PRN PRN #57 grams 01/01/23 02/08/23 (Mckayla Protect (zinc oxide)) benzocaine 20 %-menthol 0.1 %-zinc 1 applic mucous membrane QID PRN 01/19/23 02/08/23 chloride 0.15 % mucosal gel #5.1 grams (Orajel 3X Mouth Sores) docusate sodium 100 mg capsule 200 mg PO .BID, PRN 01/19/23 02/08/23 (Colace) gabapentin 600 mg tablet 600 mg PO BID 01/19/23 02/08/23 lidocaine 5 % topical patch 1 patch topical Q24H #0 ea 01/19/23 02/08/23 quetiapine 100 mg tablet 100 mg PO TID 01/19/23 02/08/23 simethicone 180 mg capsule 180 mg PO TID PRN 01/19/23 02/08/23 trazodone 50 mg tablet 50 mg PO BID 01/19/23 02/08/23 lactase 3,000 unit tablet (Lactaid) 3,000 unit PO ONCE PRN 02/08/23 02/08/23 multivitamin 1 tab PO DAILY 02/08/23 02/08/23 calcium carbonate 200 mg calcium 500 mg PO Q4H PRN PRN Dyspepsia 02/09/23 02/09/23 (500 mg) chewable tablet (Tums) calcium carbonate 200 mg calcium 500 mg PO Q4H PRN PRN dyspepsia #0 02/12/23 (500 mg) chewable tablet tabs quetiapine 50 mg tablet 50 mg PO DAILY@1400 #0 tabs 02/12/23 cefpodoxime 200 mg tablet 200 mg PO Q12H #14 tabs 02/18/23 Previous Rx's Medication Instructions Recorded lamotrigine 25 mg tablet (Lamictal) 50 mg PO DAILY #1 tab 04/08/20 atorvastatin 20 mg tablet 20 mg PO QPM #0 tabs 11/28/22 glycerin (adult) (Fleet Glycerin 1 supp MN DAILY #0 ea 11/28/22 (Adult) rectal suppository) tramadol 50 mg tablet 50 mg PO Q4H PRN PRN #0 tabs 11/28/22 albuterol sulfate 90 mcg/actuation 2 puff inhalation Q4H PRN PRN #0 01/01/23 aerosol inhaler (Ventolin HFA) grams magnesium oxide 800 mg PO BIDWMEAL #0 tabs 01/01/23 zinc oxide 12 % topical cream 1 applic topical PRN PRN #57 grams 01/01/23 (Mckayla Protect (zinc oxide)) benzocaine 20 %-menthol 0.1 %-zinc 1 applic mucous membrane QID PRN 01/19/23 chloride 0.15 % mucosal gel #5.1 grams (Orajel 3X Mouth Sores) lidocaine 5 % topical patch 1 patch topical Q24H #0 ea 01/19/23 calcium carbonate 200 mg calcium 500 mg PO Q4H PRN PRN dyspepsia #0 02/12/23 (500 mg) chewable tablet tabs quetiapine 50 mg tablet 50 mg PO DAILY@1400 #0 tabs 02/12/23 cefpodoxime 200 mg tablet 200 mg PO Q12H #14 tabs 02/18/23 Allergies Allergy/AdvReac Type Severity Reaction Status Date / Time naproxen [From Aleve] Allergy Unknown Itching Unverified 12/24/22 13:04 Penicillins Allergy Unknown Itching Unverified 12/24/22 13:04 propoxyphene Allergy Unknown Itching Unverified 12/24/22 13:04 Sulfa (Sulfonamide Allergy Unknown Itching Unverified 12/24/22 13:04 Antibiotics) methadone Allergy Verified 12/24/22 13:04 General Stated Complaint: GenMedical RUBENS: 3 Review of Systems All systems reviewed & are unremarkable except as noted in HPI and below Constitutional Constitutional: Denies chills and Denies fever(s) Cardiovascular Cardiovascular: Denies chest pain and Denies dyspnea Respiratory Respiratory: Denies dyspnea Gastrointestinal Gastrointestinal: Denies abdominal pain, Denies nausea and Denies vomiting Integumentary/Breasts Skin/Breast: Denies rash PFSH All Active Problems (Updated 02/18/23 @ 15:30 by Chance Power MD) General weakness (Acute) Complicated UTI (urinary tract infection) (Acute) Hypoalbuminemia (Acute) Hyperglycemia (Acute) High anion gap metabolic acidosis (Acute) Anemia (Chronic) Advanced care planning/counseling discussion (Acute) Gallstones (Acute) Tardive dyskinesia (Acute) Parkinsonism (Acute) History of stroke (Acute) Bipolar 1 disorder (Chronic) Bipolar affective disorder, current episode depressed (Acute) rule out bipolar disorder reported by patient. Antiepileptics maybe preventing manic episode. Major depressive disorder, recurrent, severe with psychotic features (Acute) Current presentation is depression. She may have bipolar affective disorder. Ambulatory dysfunction (Chronic) Hemiparesis affecting right side as late effect of cerebrovascular accident (Acute) Dysphagia as late effect of cerebrovascular accident (CVA) (Chronic) Dysarthria as late effect of cerebrovascular accident (CVA) (Acute) Medical History Abdominal bloating Abdominal pain Acute bronchitis Anxiety Aphasia as late effect of cerebrovascular accident Arthritis of left shoulder region Autoimmune disorder Bipolar 1 disorder Cholelithiasis with acute cholecystitis s/p cholecystostomy and stone extraction in 2014 ([facility]), tube now pulled. 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 insufficiency Chronic chest pain PAINTER SET vasculitis Constipation Cough Diarrhea Diverticulosis Emphysematous pyelonephritis Hemiparesis affecting right side as late effect of cerebrovascular accident (CVA) Hepatitis C History of multiple cerebrovascular accidents (CVAs) Hydronephrosis of right kidney Hypertension Hypothyroidism IDDM (insulin dependent diabetes mellitus) Ileus Left rotator cuff tear Lumbar disc disease Microcytic anemia Neck pain Nephrolithiasis Neurogenic bladder Obesity (BMI 30.0-34.9) Palliative care encounter Pyelonephritis Pyuria due to bacterial urinary tract infection Staghorn calculus Static encephalopathy Steroid dependent Uterine mass likely a fibroid UTI (urinary tract infection) UTI (urinary tract infection) Surgical History Abnormal cholangiogram H/O cervical spine surgery H/O foot surgery H/O wrist surgery History of extraction of renal calculus 12/13/2018 - [facility] History of hip surgery right History of lumbosacral spine surgery S/P cystoscopy with ureteral stent placement [facility] 11/2018 Status post creation of urethral sling by suprapubic approach Family History Mother Stroke Social History Smoking/Tobacco Use Status: Former Tobacco Use Smoking risk assessment performed?: Yes Alcohol Intake: former Substance use type: former substance user and IV drugs Housing: senior living Number of Children: 5 Education Level: elementary school Details: 6th grade, special ed, left school age 16. Current gender identity: female What is your relationship status?: Panel score (0-1 are the most socially isolated patients): 0 What type of physical activity do you participate in: none Do you feel safe at home: Yes Do you feel safe in your relationship?: Yes Exam Const General: no acute distress Orientation: alert HENMT Head: normal to inspection Ears: external ears normal General nose exam: external nose normal Mouth: moist mucous membranes Eyes General: appearance normal, both eyes and all related structures Neck Neck: normal visual inspection Resp Auscultation: clear to auscultation bilaterally Cardio Jugular venous pressure: no JVD Rate: regular rate Heart Sounds: no murmurs GI Palpation: nontender Skin General skin exam: no rashes or lesions noted Neuro General: patient alert and patient oriented x3 Extrem General: clubbing, cyanosis or edema noted Course Vital Signs Vital signs: Vital Signs Temperature 36.5 C 02/18/23 12:52 Pulse 90 02/18/23 12:52 Respiratory Rate 18 02/18/23 12:52 Blood Pressure 87/58 L 02/18/23 12:52 Pulse Oximetry 94 02/18/23 12:52 Temperature 36.5 C 02/18/23 12:52 Temperature Source Oral 02/18/23 12:52 Pulse 90 02/18/23 12:52 Respiratory Rate 18 02/18/23 12:52 Blood Pressure 87/58 L 02/18/23 12:52 Blood Pressure Position Supine 02/18/23 12:52 Pulse Oximetry 94 02/18/23 12:52 Oxygen Delivery Method Room Air 02/18/23 12:52 Oxygen Flow Rate 0 02/18/23 12:52 Lab/Test Results Lab/Test Results: 02/18/23 12:53 Blood Blood Culture - Pending 02/18/23 12:53 Blood Blood Culture - Pending
[2023-02-18 13:31] VITALS: RESP 18
[2023-02-18 13:36] LABS: Abs Immature Grans 0.04 10^3/uL (0.0-0.06); Absolute Basophil Count 0.02 10^3/uL (0.0-0.2); Absolute Eosinophil Count 0.03 10^3/uL (0.0-0.7); Absolute Lymphocyte Count 2.19 10^3/uL (1.2-3.4); Absolute Monocyte Count 0.59 10^3/uL (0.1-0.8); Basophils % 0.3; Eosinophils % 0.5; HCT 40.9 % (36.0-46.0); HGB 12.4 g/dL (11.2-15.7); Immature Grans % 0.7; Lymphocytes % 36.7; MCH 28.1 pg (27.0-33.0); MCHC 30.3 % (32.0-36.0); MCV 93 fL (80-95); MPV 8.9 fL (8.0-11.0); Monocytes % 9.9; Neutrophils % 51.9; Platelet Count 246 10^3/uL (130-400); RBC 4.42 10^6/uL (3.93-5.22); RDW 17.8 % (11.7-14.6); RDW-SD 58.8 fL; WBC 5.97 10^3/uL (4.4-10.8)
[2023-02-18 13:50] LABS: ALT 7 U/L (14-59); AST 36 U/L (15-37); Albumin 2.1 g/dL (3.4-5.0); Alkaline Phosphatase 94 U/L (46-116); BUN 6 mg/dL (7-18); Bilirubin, Total 0.4 mg/dL (0.2-1.0); CREATININE 0.7 mg/dL (0.55-1.02); Calcium 8.4 mg/dL (8.5-10.1); Chloride 108 mmol/L (98-107); Estimated GFR 97.72 (mL/min/1.73m2); Glucose 102 mg/dL (74-106); Lipase 15 U/L (16-77); Magnesium 1.2 mg/dL (1.8-2.4); Potassium 3.4 mmol/L (3.5-5.1); Sodium 144 mmol/L (136-145); Total Protein 6.9 g/dL (6.4-8.2)
[2023-02-18 14:17] LABS: Procalcitonin 0.1 ng/mL
[2023-02-18 14:18] LABS: PTT Activated 24.3 sec (21.5-31.9); Prothrombin Time 10.4 sec (9.3-11.0)
[2023-02-18 14:37] LABS: COVID-19 PCR Negative (Negative); Influenza A PCR Negative (Negative); Influenza B PCR Negative (Negative); RSV PCR Negative (Negative)
--- NOTE | 2023-02-18 14:48 | DI.VRAD_ITS ---
PROCEDURE INFORMATION: Exam: XR Chest Exam date and time: 02/18/2023 2:29 PM Age: 62 years old Clinical indication: Cough TECHNIQUE: Imaging protocol: Radiologic exam of the chest. Views: 2 views. COMPARISON: CR XR PORTABLE CHEST AP POST LINE 02/08/2023 10:16 PM FINDINGS: Lungs: Unremarkable. No consolidation. Pleural spaces: Unremarkable. No pleural effusion. No pneumothorax. Heart/Mediastinum: Unremarkable. No cardiomegaly. Bones/joints: Anterior cervical fusion IMPRESSION: No acute process Dictated and Authenticated by: Yannick Diaz MD. Ordering:DANNY Fletcher MD
[2023-02-18 14:50] LABS: Source Nasopharynx
[2023-02-18] MEDS: MAGNESIUM SULFATE 2 GM/50 ML BAG IVPB (14:55)
[2023-02-18] MEDS: Normal Saline 1,000 ML 1000 ML IV (14:56)
[2023-02-18] MEDS: Cefpodoxime 200 MG TAB PO (15:19)
[2023-02-18 15:22] VITALS: BP 96/63; PULSE 90; RESP 12; O2SAT 94
[2023-02-18 16:13] VITALS: BP 103/65; PULSE 85; O2SAT 94
--- NOTE | 2023-02-19 19:03 | ED.PROG_ITS ---
Date of service: 02/19/23 Time of Service: 19:03 Medical Decision Making I received notification from the lab that this patient was growing gram-positive cocci in clusters on positive blood culture. I called the patient's shelter facility where she was reportedly doing well without any fevers. Unfortunately, secondary to the weekend, the patient had not yet received any of her oral antibiotics which were prescribed. Given pending speciation I felt that ED reassessment was most appropriate to determine whether or not the patient's gram-positive cocci in clusters were secondary to coagulase positive Staph aureus versus coagulase negative Staph epidermidis or Staph saprophyticus. Patient will be transported by EMS. Discharge Plan Disposition [facility] Condition: Stable Discharge Details Clinical Impression: General weakness Primary Care Provider: Agueda Bingham ED Provider: Chance Power [place] Meds and New Rx's Prescriptions: New cefpodoxime 200 mg tablet 200 mg PO Q12H Qty: 14 0RF Rx Instructions: must administer with a meal/food Continued metformin 500 mg tablet 1,000 mg PO BID lactase [Lactaid] 3,000 unit tablet 9,000 unit PO TID Rx Instructions: administer with meals and/or snacks simethicone 180 mg capsule 180 mg PO TID PRN gabapentin 600 mg tablet 600 mg PO BID quetiapine 100 mg tablet 100 mg PO TID Patient Comments: 100 mg BID, 50 mg daily at 2pm trazodone 50 mg tablet 50 mg PO BID lidocaine 5 % adhesive patch,medicated 1 patch topical Q24H Qty: 0 0RF Rx Instructions: 01/19/23 4% patch per med req with [employer] med list. -hb docusate sodium [Colace] 100 mg capsule 200 mg PO .BID, PRN Orajel 3X Mouth Sores 20-0.1-0.15 % gel 1 applic mucous membrane QID PRN Qty: 5.1 0RF glycerin (adult) [Fleet Glycerin (Adult)] Suppository 1 supp [place] DAILY Qty: 0 0RF tramadol 50 mg Tablet 50 mg PO Q4H PRN PRNQty: 0 0RF Rx Instructions: per [employer] paperwork script stopped 01/31/23 atorvastatin 20 mg Tablet 20 mg PO QPM Qty: 0 0RF lactase [Lactaid] 3,000 unit Tablet 3,000 unit PO ONCE PRN Rx Instructions: administer with meals and/or snacks multivitamin Tablet 1 tab PO DAILY Rx Instructions: Multivit with beta carotene and Iron calcium carbonate [Tums] 200 mg calcium (500 mg) Tablet,Chewable 500 mg PO Q4H PRN PRN (Reason: Dyspepsia) calcium carbonate 200 mg calcium (500 mg) Tablet,Chewable 500 mg PO Q4H PRN PRN (Reason: dyspepsia) Qty: 0 0RF quetiapine 50 mg Tablet 50 mg PO DAILY@1400 Qty: 0 0RF mirtazapine 15 mg Tablet 15 mg PO QHS lamotrigine [Lamictal] 25 mg Tablet 50 mg PO DAILY Qty: 1 0RF polyethylene glycol 3350 [Miralax] 17 gram/dose Powder 17 g PO DAILY PRN aspirin 81 mg Tablet,Delayed Release (Dr/Ec) 81 mg PO DAILY bupropion HCl 150 mg tablet extended release 24 hr 150 mg PO QAM cetirizine 10 mg Tablet 10 mg PO QAM linaclotide 145 mcg Capsule 145 mcg PO DAILY acetaminophen 500 mg Tablet 500 mg PO BID diclofenac sodium 1 % Gel 1 applic TOPICAL BID fluticasone propionate [Flonase Allergy Relief] 50 mcg/actuation [place],Suspension 1 spray INTRANASAL BID Trulicity 1.5 mg/0.5 mL pen injector 1 device SUBCUT DIRECTED Rx Instructions: weekly levothyroxine 100 mcg Tablet 100 mcg PO DAILY omeprazole 20 mg Capsule,Delayed Release(Dr/Ec) 20 mg PO DAILY carbidopa-levodopa 25-100 mg Tablet 1 tab PO QID B-complex with vitamin C Capsule 1 cap PO DAILY Centrum Complete 18-400 mg-mcg Tablet 1 tab PO DAILY ropinirole 0.5 mg Tablet 0.5 mg PO QHS Rx Instructions: administer 1-3 hours before bedtime lorazepam 0.5 mg Tablet 0.5 mg PO BID Mckayla Protect (zinc oxide) 12 % Cream 1 applic topical PRN PRNQty: 57 0RF albuterol sulfate [Ventolin HFA] 90 mcg/actuation Hfa Aerosol Inhaler 2 puff INHALATION Q4H PRN PRNQty: 0 0RF magnesium oxide 400 mg magnesium Tablet 800 mg PO BIDWMEAL Qty: 0 0RF Discontinued cefpodoxime 200 mg Tablet 200 mg PO Q12H Qty: 10 0RF Discharge Instructions Additional Instructions: Your blood work did not show signs of a serious infection. Your magnesium level was low and you were given magnesium IV follow up with your primary care provider within 1 week if you feel more ill, have sevevere pain or difficulty breathing return to the emergency department try to make sure you are drinking plenty of fluids to stay hydrated Discharge Data Discharge Date/Time-TO BE ENTERED AT DEPARTURE: 02/18/23 16:37
== END 2023-02-18 16:37 | disposition skilled nursing facility (03) ==
PROVIDERS: Emergency Provider Emergency Medicine; PCP Family Medicine
DX: R53.1 Weakness (principal); R50.9 Fever, unspecified; R05.9 Cough, unspecified; R30.0 Dysuria; E83.42 Hypomagnesemia; B95.8 Unspecified staphylococcus as the cause of diseases classified elsewhere
CPT/HCPCS: 36415; 80053; 83690; 84145; 87040; 87077; 87637; 96361; 96365; 99284; 71046; 81003; 83735; 85025; 85610; 85730; 87086; 87186

== ENCOUNTER 2023-02-19 20:42 | Inpatient (IN) | payer MEDICAID, SELFPAY ==
[2023-02-19] VITALS (31 sets, daily range): BP systolic 79–103; BP diastolic 55–90; PULSE 64–101; RESP 7–29; TEMP 36.6; O2SAT 93–100
--- NOTE | 2023-02-19 20:45 | DI.CT_ITS ---
Exam(s) CT ABDOMEN PELVIS W EXAM: CT ABDOMEN PELVIS W CLINICAL HISTORY: rlq pain, blood cultures +. TECHNIQUE: Imaging Protocol: Axial computed tomography images with coronal and sagittal reformatted images were created and reviewed CONTRAST MATERIAL: Intravenous: Omnipaque-350 100cc Oral: None COMPARISON: CT CT RENAL COLIC WO from 11/05/[address] CHEST/ABD/PEL W from 06/01/[address] CHEST/ABD/PEL W from 06/13/[address] ABDOMEN PELVIS W from 02/08/2023 FINDINGS: VISUALIZED LUNG BASES: No nodules nor pleural effusions evident. ABDOMEN: There is no ascites. LIVER: There are no focal hepatic lesions evident. No dilated intrahepatic ducts. GALLBLADDER/BILIARY: Septated gallbladder again noted. No obvious radiopaque gallstones. No gallbla dder wall edema nor pericholecystic fluid. CBD is not dilated. PANCREAS: Pancreatic head is again noted to be hypodense when compared to the rest of the gland, incl uding the uncinate process. This is similar to prior CT scans including 06/13/2022. This may be rel ated to inflammatory issues, however, cannot completely rule out neoplasm at this level. There is no dilatation of the pancreatic duct. No parenchymal pancreatic calcifications. The CBD is not obstru cted. There is no regional lymphadenopathy evident. SPLEEN: Spleen is not enlarged. No obvious intrasplenic lesions. Splenic and portal veins are paten t. ADRENALS: There are no significant adrenal masses. KIDNEYS:Small cortical cysts again noted. These are benign and do not require follow-up. No solid r enal masses. Presently no calculi. No hydronephrosis. No hydroureter no solid renal masses. No ca lculi nor hydronephrosis.. ABDOMINAL AORTA: Abdominal aorta is not enlarged. Celiac, SMA, and ERIC are patent. LYMPH NODES:There is no retroperitoneal nor paraaortic adenopathy. ABDOMINAL WALL: No evidence of significant anterior abdominal wall nor inguinal hernia. GI: Fluid and air-filled bowel loops noted throughout the abdomen. No free air. The sigmoid is agai n noted to be long length and extending up to the abdomen level. There is fluid throughout most of t he colon. Most probably diarrhea as there is also fluid fecal material between the buttocks. PELVIS: GI: No evidence of appendicitis.No evidence of sigmoid diverticulitis. LYMPH NODES: There is no intrapelvic nor inguinal adenopathy. REPRODUCTIVE: Enlarged abnormal fibroid uterus again noted. No obvious ovarian masses. No free flui d. URINARY BLADDER: Compressed by the enlarged uterus. OSSEOUS: No fractures and no significant osseous lesions. Chronic degenerative disc disease L5-S1 again noted. IMPRESSION: 1. There are multiple loops of gas and fluid-filled small and large bowel loops. There appears to be diarrhea, as described above. No obvious bowel obstruction or free intraperitoneal air. There is n o ascites. 2. Enlarged and lobulated uterus containing previously described 6-7 cm mass which is probably a larg e fibroid. This is again noted to compress the urinary bladder. No abnormal adnexal masses. 3. Pancreatic head is again noted be somewhat hypodense when compared to the remainder of the pancrea s, this evident on numerous prior CT scans. Probably related to inflammatory changes but cannot excl ude pancreatic mass. The pancreatic duct is not dilated. There are no pancreatic parenchymal calcif ications. No peripancreatic fluid. 4. Other findings as above. RADIATION DOSE DELIVERED: 1,421.15mGy.cm Total DLP DATA REPOSITORY: All CT scans at this facility are submitted to the National Radiology Data Registry (NRDR) Dose Index Registry (DIR) with the [employer] (ACR). RADIATION OPTIMIZATION: All CT scans at this facility use at least one of these dose optimization te chniques: automated exposure control; mA and/or kV adjustment per patient size (includes targeted exa ms where dose is matched to clinical indication); or iterative reconstruction.
[2023-02-19] MEDS: Normal Saline Flush 10 ML SYR IVP (21:08)
[2023-02-19] MEDS: Normal Saline - Diluent 50 ML VIAL IJ (21:09)
[2023-02-19] MEDS: Omnipaque 350 MG/ML 100 ML BTL IJ (21:09)
[2023-02-19 21:17] LABS: Lactate 3.5 mmol/L (0.6-1.4)
[2023-02-19 21:19] LABS: Abs Immature Grans 0.03 10^3/uL (0.0-0.06); Absolute Basophil Count 0.02 10^3/uL (0.0-0.2); Absolute Eosinophil Count 0.03 10^3/uL (0.0-0.7); Absolute Lymphocyte Count 1.83 10^3/uL (1.2-3.4); Absolute Monocyte Count 0.52 10^3/uL (0.1-0.8); Absolute Neutrophil Count 2.89 10^3/uL (1.2-6.7); Basophils % 0.4; Eosinophils % 0.6; HGB 10.8 g/dL (11.2-15.7); Immature Grans % 0.6; Lymphocytes % 34.4; MCH 27.9 pg (27.0-33.0); MCV 93 fL (80-95); MPV 8.9 fL (8.0-11.0); Monocytes % 9.8; Neutrophils % 54.2; Platelet Count 201 10^3/uL (130-400); RBC 3.87 10^6/uL (3.93-5.22); RDW 17.4 % (11.7-14.6); RDW-SD 58.7 fL; WBC 5.32 10^3/uL (4.4-10.8)
[2023-02-19] MEDS: Normal Saline 1,000 ML 1000 ML IV (21:29)
[2023-02-19] MEDS: AZTREONAM 2,000 MG in Normal Saline 100 ML 200 MG IVPB (21:32)
[2023-02-19 21:38] LABS: ALT 7 U/L (14-59); AST 30 U/L (15-37); Albumin 1.8 g/dL (3.4-5.0); Alkaline Phosphatase 83 U/L (46-116); BUN 4 mg/dL (7-18); Bilirubin, Total 0.5 mg/dL (0.2-1.0); CREATININE 0.7 mg/dL (0.55-1.02); Calcium 7.9 mg/dL (8.5-10.1); Chloride 111 mmol/L (98-107); Estimated GFR 97.72 (mL/min/1.73m2); Glucose 106 mg/dL (74-106); Potassium 3.3 mmol/L (3.5-5.1); Sodium 145 mmol/L (136-145)
--- NOTE | 2023-02-19 21:43 | DI.VRAD_ITS ---
PROCEDURE INFORMATION: Exam: CT Abdomen And Pelvis With Contrast Exam date and time: 02/19/2023 9:17 PM Age: 62 years old Clinical indication: Abdominal pain; Localized; Right lower quadrant (rlq); Patient HX: Rlq pain, blood cultures + TECHNIQUE: Imaging protocol: Computed tomography of the abdomen and pelvis with contrast. Contrast material: OMNIPAQUE 350; Contrast volume: 100 ml; Contrast route: INTRAVENOUS (IV); COMPARISON: CT ABDOMEN PELVIS W 02/08/2023 2:45 PM FINDINGS: Lungs: Bibasilar atelectasis/scarring and areas of probable minimal pneumonitis. Liver: Normal. Gallbladder and bile ducts: Normal. Pancreas: Normal. Spleen: Normal. Adrenal glands: Normal. No mass. Kidneys and ureters: Simple left upper pole renal cyst, for which no further evaluation necessary. Stomach and bowel: Multiple loops of nondilated, gas and fluid-filled small and large bowel, possibly enteritis/diarrhea. Appendix: Appendix normal. Intraperitoneal space: Unremarkable. No free air. No significant fluid collection. Vasculature: Phleboliths within the pelvis. Lymph nodes: Unremarkable. No enlarged lymph nodes. Urinary bladder: Unremarkable as visualized. Reproductive: Enlarged, heterogeneous uterus, containing 6.5 cm mass, likely fibroid. Bones/joints: Degenerative changes of the hips and sacroiliac joints. Multilevel thoracolumbar spine degenerative disc space narrowing and osteophyte formation. Soft tissues: Normal. IMPRESSION: 1. Multiple loops of nondilated, gas and fluid-filled small and large bowel, possibly enteritis/diarrhea. 2. Bibasilar atelectasis/scarring and areas of probable minimal pneumonitis. Dictated and Authenticated by: Jimbo Francis MD. Ordering:ZULEMA Telles MD
--- NOTE | 2023-02-19 21:57 | W.ED.GENAD ---
Discharge Plan Disposition Patient Disposition: Admit to [facility] Condition: Improving Discharge Details Clinical Impression: Bacteremia, Diarrhea, UTI (urinary tract infection) Admit Date/Time: 02/19/23 23:43 Admit Provider: Abhishek Barbosa Attending Provider: Abhishek Barbosa Primary Care Provider: Agueda Bingham ED Provider: Elfego Chino Medical Decision Making 62-year-old female who resides at the [facility] with a past medical history of prior cerebrovascular accidents with chronic right-sided deficits and right-sided hemiparesis, as well as a recent admission with subsequent discharge on 02/12/2023. At that time she had initially been admitted for concern for an SBO, however this had eventually been ruled out, she had sepsis as well which was uncertain as to the exact source, questionable colonic bacterial translocation versus UTI. Yesterday she came to the ER and was seen and assessed by my colleague. She was slightly hypotensive, and was rehydrated and evaluated. Work-up was relatively benign and she was discharged back to the [facility]. However today her blood cultures came back positive for gram-positive cocci, and it was recommended that she come back to the ER for further assessment. Currently now she states that she feels weak with some mild abdominal pain. She denies any diarrhea at the [facility], but did have an episode of diarrhea when she arrived here. Patient has no other focal complaints at this time. No other modifying factors. Exam demonstrates chronic deficits on the right-hand side, distended abdomen, mild tenderness throughout. She did have a watery stool bowel movement. With the patient's positive blood cultures again there is concern for UTI, gastroenteritis or colitis. We will get a CT scan, rehydrate the patient, start azetreonam. and vancomycin, monitor closely and reassess. Plan will be for admission. 10:[address] scan shows evidence of multiple loops of nondilated gas and fluid-filled small and large bowel possibly enteritis and diarrhea which correlates well clinically, there is some bibasilar atelectasis and scarring and areas of probable minimal pneumonitis. Patient also demonstrates evidence of a notable UTI on urinalysis. We will plan for admission. Blood pressure is stable after a liter of normal saline. Laboratory work-up shows a normal white count, lactate of 3.5, potassium slightly low at 3.3 which we will correct, calcium slight low at 7.9 which we will correct, and we will give supplemental magnesium. FINDINGS: Discussed the case to the hospitalist Dr. Huseyin FORTE he agrees with the assessment and plan. I have extensively reviewed the treatment plan with the patient. I have addressed all patient concerns at this time. I have also discussed the plan with the admitting physician and they agree with the current assessment and plan and have agreed to assume responsibility for the patient. All parties demonstrate verbal understanding and agreement with our assessment and plan at this time. The documentation in this chart was dictated using [employer] dictation software. Please excuse any dictation errors. Additionally, the C. difficile test returned negative. Lungs: Bibasilar atelectasis/scarring and areas of probable minimal pneumonitis. Liver: Normal. Gallbladder and bile ducts: Normal. Pancreas: Normal. Spleen: Normal. Adrenal glands: Normal. No mass. Kidneys and ureters: Simple left upper pole renal cyst, for which no further evaluation necessary. Stomach and bowel: Multiple loops of nondilated, gas and fluid-filled small and large bowel, possibly enteritis/diarrhea. Appendix: Appendix normal. Intraperitoneal space: Unremarkable. No free air. No significant fluid collection. Vasculature: Phleboliths within the pelvis. Lymph nodes: Unremarkable. No enlarged lymph nodes. Urinary bladder: Unremarkable as visualized Reproductive: Enlarged, heterogeneous uterus, containing 6.5 cm mass, likely fibroid. Bones/joints: Degenerative changes of the hips and sacroiliac joints. Multilevel thoracolumbar spine degenerative disc space narrowing and osteophyte formation. Soft tissues: Normal. IMPRESSION: 1. Multiple loops of nondilated, gas and fluid-filled small and large bowel, possibly enteritis/diarrhea. 2. Bibasilar atelectasis/scarring and areas of probable minimal pneumonitis. Thank you for allowing us to participate in the care of your patient. Dictated and Authenticated by: Jimbo Francis MD 02/19/2023 9:42 PM Eastern Time ([place] & [place]) HPI General Date/Time Provider Initiated Documentation: 02/19/23 20:48. HPI Narrative: 62-year-old female who resides at the [facility] with a past medical history of prior cerebrovascular accidents with chronic right-sided deficits and right-sided hemiparesis, as well as a recent admission with subsequent discharge on 02/12/2023. At that time she had initially been admitted for concern for an SBO, however this had eventually been ruled out, she had sepsis as well which was uncertain as to the exact source, questionable colonic bacterial translocation versus UTI. Yesterday she came to the ER and was seen and assessed by my colleague. She was slightly hypotensive, and was rehydrated and evaluated. Work-up was relatively benign and she was discharged back to the [facility]. However today her blood cultures came back positive for gram-positive cocci, and it was recommended that she come back to the ER for further assessment. Currently now she states that she feels weak with some mild abdominal pain. She denies any diarrhea at the [facility], but did have an episode of diarrhea when she arrived here. Patient has no other focal complaints at this time. No other modifying factors. Related Data Home Medications Medication Instructions Recorded Confirmed mirtazapine 15 mg tablet 15 mg PO QHS 03/26/20 02/19/23 lamotrigine 25 mg tablet (Lamictal) 50 mg PO DAILY #1 tab 04/08/20 02/19/23 polyethylene glycol 3350 17 17 g PO DAILY PRN 04/19/20 02/19/23 gram/dose oral powder (Miralax) metformin 500 mg tablet 1,000 mg PO BID 12/20/20 02/19/23 lactase 3,000 unit tablet (Lactaid) 9,000 unit PO TID 06/22/21 02/19/23 acetaminophen 500 mg tablet 500 mg PO BID 06/01/22 02/19/23 aspirin 81 mg tablet,delayed 81 mg PO DAILY 06/01/22 02/19/23 release bupropion HCl 150 mg 24 hr tablet, 150 mg PO QAM 06/01/22 02/19/23 extended release cetirizine 10 mg tablet 10 mg PO QAM 06/01/22 02/19/23 diclofenac sodium 1 % topical gel 1 applic topical BID 06/01/22 02/19/23 dulaglutide 1.5 mg/0.5 mL 1 device subcut DIRECTED 06/01/22 02/19/23 subcutaneous pen injector (Trulicity) fluticasone propionate 50 1 spray intranasal BID 06/01/22 02/19/23 mcg/actuation nasal spray,suspension (Flonase Allergy Relief) linaclotide 145 mcg capsule 145 mcg PO DAILY 06/01/22 02/19/23 B-complex with vitamin C 1 cap PO DAILY 11/09/22 02/19/23 carbidopa 25 mg-levodopa 100 mg 1 tab PO QID 11/09/22 02/19/23 tablet levothyroxine 100 mcg tablet 100 mcg PO DAILY 11/09/22 02/19/23 multivitamin-ferrous 1 tab PO DAILY 11/09/22 02/19/23 fumarate-folic acid 18 mg-400 mcg tablet (Centrum Complete) omeprazole 20 mg capsule,delayed 20 mg PO DAILY 11/09/22 02/19/23 release ropinirole 0.5 mg tablet 0.5 mg PO QHS 11/09/22 02/19/23 atorvastatin 20 mg tablet 20 mg PO QPM #0 tabs 11/28/22 02/19/23 glycerin (adult) (Fleet Glycerin 1 supp [place] DAILY #0 ea 11/28/22 02/19/23 (Adult) rectal suppository) tramadol 50 mg tablet 50 mg PO Q4H PRN PRN #0 tabs 11/28/22 02/19/23 lorazepam 0.5 mg tablet 0.5 mg PO BID 12/24/22 02/19/23 albuterol sulfate 90 mcg/actuation 2 puff inhalation Q4H PRN PRN #0 01/01/23 02/19/23 aerosol inhaler (Ventolin HFA) grams magnesium oxide 800 mg PO BIDWMEAL #0 tabs 01/01/23 02/19/23 zinc oxide 12 % topical cream 1 applic topical PRN PRN #57 grams 01/01/23 02/19/23 (Mckayla Protect (zinc oxide)) benzocaine 20 %-menthol 0.1 %-zinc 1 applic mucous membrane QID PRN 01/19/23 02/19/23 chloride 0.15 % mucosal gel #5.1 grams (Orajel 3X Mouth Sores) docusate sodium 100 mg capsule 200 mg PO .BID, PRN 01/19/23 02/19/23 (Colace) gabapentin 600 mg tablet 600 mg PO BID 01/19/23 02/19/23 lidocaine 5 % topical patch 1 patch topical Q24H #0 ea 01/19/23 02/19/23 quetiapine 100 mg tablet 100 mg PO TID 01/19/23 02/19/23 simethicone 180 mg capsule 180 mg PO TID PRN 01/19/23 02/19/23 trazodone 50 mg tablet 50 mg PO BID 01/19/23 02/19/23 lactase 3,000 unit tablet (Lactaid) 3,000 unit PO ONCE PRN 02/08/23 02/19/23 multivitamin 1 tab PO DAILY 02/08/23 02/19/23 calcium carbonate 200 mg calcium 500 mg PO Q4H PRN PRN Dyspepsia 02/09/23 02/19/23 (500 mg) chewable tablet (Tums) calcium carbonate 200 mg calcium 500 mg PO Q4H PRN PRN dyspepsia #0 02/12/23 02/19/23 (500 mg) chewable tablet tabs quetiapine 50 mg tablet 50 mg PO DAILY@1400 #0 tabs 02/12/23 02/19/23 cefpodoxime 200 mg tablet 200 mg PO Q12H #14 tabs 02/18/23 02/19/23 Previous Rx's Medication Instructions Recorded lamotrigine 25 mg tablet (Lamictal) 50 mg PO DAILY #1 tab 04/08/20 atorvastatin 20 mg tablet 20 mg PO QPM #0 tabs 11/28/22 glycerin (adult) (Fleet Glycerin 1 supp [place] DAILY #0 ea 11/28/22 (Adult) rectal suppository) tramadol 50 mg tablet 50 mg PO Q4H PRN PRN #0 tabs 11/28/22 albuterol sulfate 90 mcg/actuation 2 puff inhalation Q4H PRN PRN #0 01/01/23 aerosol inhaler (Ventolin HFA) grams magnesium oxide 800 mg PO BIDWMEAL #0 tabs 01/01/23 zinc oxide 12 % topical cream 1 applic topical PRN PRN #57 grams 01/01/23 (Mckayla Protect (zinc oxide)) benzocaine 20 %-menthol 0.1 %-zinc 1 applic mucous membrane QID PRN 01/19/23 chloride 0.15 % mucosal gel #5.1 grams (Orajel 3X Mouth Sores) lidocaine 5 % topical patch 1 patch topical Q24H #0 ea 01/19/23 calcium carbonate 200 mg calcium 500 mg PO Q4H PRN PRN dyspepsia #0 02/12/23 (500 mg) chewable tablet tabs quetiapine 50 mg tablet 50 mg PO DAILY@1400 #0 tabs 02/12/23 cefpodoxime 200 mg tablet 200 mg PO Q12H #14 tabs 02/18/23 Allergies Allergy/AdvReac Type Severity Reaction Status Date / Time naproxen [From Aleve] Allergy Unknown Itching Unverified 12/24/22 13:04 Penicillins Allergy Unknown Itching Unverified 12/24/22 13:04 propoxyphene Allergy Unknown Itching Unverified 12/24/22 13:04 Sulfa (Sulfonamide Allergy Unknown Itching Unverified 12/24/22 13:04 Antibiotics) methadone Allergy Verified 12/24/22 13:04 General Stated Complaint: GenMedical RUBENS: 3 Review of Systems All systems reviewed & are unremarkable except as noted in HPI and below PFSH All Active Problems (Updated 02/19/23 @ 23:04 by Elfego Chino DO) General weakness (Acute) Diarrhea (Acute) Bacteremia (Acute) UTI (urinary tract infection) (Acute) Complicated UTI (urinary tract infection) (Acute) Hypoalbuminemia (Acute) Hyperglycemia (Acute) High anion gap metabolic acidosis (Acute) Anemia (Chronic) Advanced care planning/counseling discussion (Acute) Gallstones (Acute) Tardive dyskinesia (Acute) Parkinsonism (Acute) History of stroke (Acute) Bipolar 1 disorder (Chronic) Bipolar affective disorder, current episode depressed (Acute) rule out bipolar disorder reported by patient. Antiepileptics maybe preventing manic episode. Major depressive disorder, recurrent, severe with psychotic features (Acute) Current presentation is depression. She may have bipolar affective disorder. Ambulatory dysfunction (Chronic) Hemiparesis affecting right side as late effect of cerebrovascular accident (Acute) Dysphagia as late effect of cerebrovascular accident (CVA) (Chronic) Dysarthria as late effect of cerebrovascular accident (CVA) (Acute) Medical History Abdominal bloating Abdominal pain Acute bronchitis Anxiety Aphasia as late effect of cerebrovascular accident Arthritis of left shoulder region Autoimmune disorder Bipolar 1 disorder Cholelithiasis with acute cholecystitis s/p cholecystostomy and stone extraction in 2014 ([facility]), tube now pulled. 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 Constipation Cough Diarrhea Diverticulosis Emphysematous pyelonephritis Hemiparesis affecting right side as late effect of cerebrovascular accident (CVA) Hepatitis C History of multiple cerebrovascular accidents (CVAs) Hydronephrosis of right kidney Hypertension Hypothyroidism IDDM (insulin dependent diabetes mellitus) Ileus Left rotator cuff tear Lumbar disc disease Microcytic anemia Neck pain Nephrolithiasis Neurogenic bladder Obesity (BMI 30.0-34.9) Palliative care encounter Pyelonephritis Pyuria due to bacterial urinary tract infection Staghorn calculus Static encephalopathy Steroid dependent Uterine mass likely a fibroid UTI (urinary tract infection) UTI (urinary tract infection) Surgical History Abnormal cholangiogram H/O cervical spine surgery H/O foot surgery H/O wrist surgery History of extraction of renal calculus 12/13/2018 - [facility] History of hip surgery right History of lumbosacral spine surgery S/P cystoscopy with ureteral stent placement UV 11/2018 Status post creation of urethral sling by suprapubic approach Family History Mother Stroke Social History Smoking/Tobacco Use Status: Former Tobacco Use Smoking risk assessment performed?: Yes Alcohol Intake: former Substance use type: former substance user and IV drugs Housing: penitentiary Number of Children: 5 Education Level: elementary school Details: 6th grade, special ed, left school age 16. Current gender identity: female What is your relationship status?: Panel score (0-1 are the most socially isolated patients): 0 What type of physical activity do you participate in: none Do you feel safe at home: Yes Do you feel safe in your relationship?: Yes Exam Narrative Exam Narrative: 1.Const: Well-nourished, Well-developed, appearing stated age 2.Eyes: PERRL, no conjunctival injection, and symmetrical lids. 3.ENT: Atraumatic external nose and ears. Dry MM. Neck: Symmetric, trachea midline, No thyromegaly. 4.CVS: +S1/S2, No murmurs or gallops. Peripheral pulses 2+ and equal in all extremities. Brisk capillary refill in all extremities. 5.RESP: Unlabored respiratory effort. Clear to auscultation bilaterally. No wheezes rales or rhonchi 6.GI: Soft, mildly distended, mild tenderness in the right upper and right lower abdomen. 7.MSK: Normocephalic/Atraumatic, Extremities w/o deformity or ttp No cyanosis or clubbing, chronic contractures of the right upper extremity, chronic disability the right lower extremity 8.Skin: Warm, Dry. No rashes or lesions. 9.Neuro: At chronic baseline for neuro assessment Course Vital Signs Vital signs: Vital Signs Temperature 36.6 C 02/19/23 20:44 Pulse 64 02/19/23 20:44 Respiratory Rate 16 02/19/23 20:44 Blood Pressure 83/56 L 02/19/23 20:44 Pulse Oximetry 93 02/19/23 20:44 Temperature 36.6 C 02/19/23 20:44 Temperature Source Oral 02/19/23 20:44 Pulse 64 02/19/23 21:48 Pulse 83 02/19/23 21:40 Respiratory Rate 16 02/19/23 21:48 Respiratory Effort Normal 02/19/23 20:53 Respiratory Depth Normal 02/19/23 20:53 Respiratory Pattern Normal 02/19/23 20:53 Blood Pressure 103/59 L 02/19/23 21:48 Blood Pressure Position Supine 02/19/23 20:44 Pulse Oximetry 100 02/19/23 21:48 Oxygen Delivery Method Nasal Cannula 02/19/23 21:48 Oxygen Flow Rate 4 02/19/23 21:48 Comment pt put on 4L for comfort. 02/19/23 20:44 Lab/Test Results Lab/Test Results: 02/19/23 21:05 Blood Blood Culture - Pending 02/19/23 21:05 Blood Blood Culture - Pending Laboratory Tests Range/Units 02/19/23 02/19/23 02/19/23 21:05 21:05 21:05 WBC (4.4-10.8) 10^3/uL 5.32 RBC (3.93-5.22) 10^6/uL 3.87 L Hgb (11.2-15.7) g/dL 10.8 L Hct (36.0-46.0) % 36.0 MCV (80-95) fL 93 MCH (27.0-33.0) pg 27.9 MCHC (32.0-36.0) % 30.0 L RDW (11.7-14.6) % 17.4 H Plt Count (130-400) 10^3/uL 201 MPV (8.0-11.0) fL 8.9 Immature Gran % 0.6 Neutrophils % 54.2 Lymphocytes % 34.4 Monocytes % 9.8 Eosinophils % 0.6 Basophils % 0.4 Nucleated RBC % (0.0-0.3) % 0.0 Absolute Neutrophils (1.2-6.7) 10^3/uL 2.89 Absolute Lymphocytes (1.2-3.4) 10^3/uL 1.83 Absolute Monocytes (0.1-0.8) 10^3/uL 0.52 Absolute Eosinophils (0.0-0.7) 10^3/uL 0.03 Absolute Basophils (0.0-0.2) 10^3/uL 0.02 VBG Lactate (0.6-1.4) mmol/L 3.5 H* Sodium (136-145) mmol/L 145 Potassium (3.5-5.1) mmol/L 3.3 L Chloride (98-107) mmol/L 111 H Carbon Dioxide (21.0-32.0) mmol/L 27.0 Anion Gap (3-11) mmol/L 7.0 BUN (7-18) mg/dL 4 L Creatinine (0.55-1.02) mg/dL 0.7 Est GFR (CKD-EPI 2020) (mL/min/1.73m2) 97.72 Glucose (74-106) mg/dL 106 Calcium (8.5-10.1) mg/dL 7.9 L Total Bilirubin (0.2-1.0) mg/dL 0.5 AST (15-37) U/L 30 ALT (14-59) U/L 7 L Alkaline Phosphatase (46-116) U/L 83 Total Protein (6.4-8.2) g/dL 6.0 L Albumin (3.4-5.0) g/dL 1.8 L
[2023-02-19] MEDS: MORPHine 4 MG/ML SYR IVP (21:58)
[2023-02-19] MEDS: ACETAMINOPHEN 1,000 MG/100 ML BTL 400 MG IVPB (22:25)
[2023-02-19 22:32] LABS: Bilirubin Negative (Negative); Blood Moderate (Negative); Clarity Sl Cloudy (Clear); Glucose Negative (Negative); Ketones Negative (Negative); Leukocyte Esterase Small (Negative); Nitrite Negative (Negative); Urobilinogen 0.2 mg/dL (Up to 0.2); pH 6.5 (5-8)
[2023-02-19 22:43] LABS: Bacteria Few HPF (Negative); C & S Indicated? Yes; Casts Negative LPF (Negative); Crystals Negative HPF (Negative); Epithelial Cells Rare HPF (Negative); Mucus Negative (Negative); Other Cells Rare Transitional (Negative); WBC >50 HPF (0-5)
[2023-02-19 23:05] LABS: C Diff PCR Negative (Negative)
[2023-02-19] MEDS: Calcium Gluconate 4.65 MEQ/10 ML VIAL 4.65 MG IVP (23:14)
[2023-02-19] MEDS: MAGNESIUM SULFATE 2 GM/50 ML BAG IVPB (23:14)
[2023-02-19] MEDS: VANCOMYCIN 2,000 MG in Normal Saline 500 ML 333.3333 MG IVPB (23:14)
[2023-02-19] MEDS: POTASSIUM CHLORIDE 20 MEQ/100 ML BAG 50 MEQ IVPB (23:14)
[2023-02-19] MEDS: Normal Saline 1,000 ML 150 ML IV (23:15)
--- NOTE | 2023-02-19 23:57 | W.PM.HP.N ---
Date of service: 02/19/23 Time of Service: 23:57 Assessment and Plan Assessment and plan (1) Diarrhea: Status: Acute Assessment and plan: Stool studies and C. difficile test will be done. She says that a colonoscopy is going to be set up. I am not sure of the status of this. (2) Bacteremia: Status: Acute Assessment and plan: Bacteremia may be present with 1 specimen positive for gram-positive cocci from yesterday, February 18. Likely source is urinary tract. She was placed on vancomycin and aztreonam and those will be continued for now. Pharmacy will be asked to recommend doses for the vancomycin. Her lactate level is elevated to 3.5 and this will be rechecked in a few hours. Her blood pressures have been a bit low although she says her blood pressures are often low. She is receiving intravenous fluids at this time. The antibiotic regimen could be changed when sensitivities come back. (3) UTI (urinary tract infection): Status: Acute Assessment and plan: Urine culture from yesterday shows gram-positive and gram-negative bacteria and urine culture has been repeated today. History of Present Illness History of Present Illness Chief Complaint: Positive blood culture and dysuria. Narrative: This 62-year-old female is a resident of the [facility]. She has a history of stroke and has hemiparesis on the right side. She was hospitalized in December of this year for Pseudomonas bacteremia and at that time had a peak lactate level of 5.4. She was treated for the urinary tract infection but returned to the hospital February 08 with an elevated lactate of 4.2 at that time. She was found to have E. coli in her urine. She was discharged on cefpoxodime for 5 more days after discharge back to the senior living. She states that she has had dysuria for about 3 days without chills or fever. She has had intermittent abdominal pain and has had chronic diarrhea. She states she was going to get set up for a colonoscopy which may be done in March. She says the diarrhea has been going on for about a year and a half. She has had some nausea but no vomiting fever or chills. She came in yesterday and had blood cultures done as well as a urine culture. A blood culture came out positive today for gram-positive cocci and she was referred back to the emergency department. She was to be restarted on the cefpoxodime 200 mg twice daily for 1 week yesterday but the note from the doctor distribution manager today said that the antibiotic was not started because it is a weekend. Today was actually . I do not know if there had been any attempt to get her antibiotics started yesterday. She states that the plan is for her to go to a extended care facility in [facility] perhaps in the next month. She states that about a month ago she was told that it might take 60 days to get in. Review of Systems Constitutional Constitutional: Denies chills, Denies fever(s) and Denies headache(s) ENT Ears, Nose, Mouth, and Throat: Denies dysphagia and Denies headache(s) Cardiovascular Cardiovascular: Denies chest pain, Denies rapid heart rate, Denies lightheadedness and Denies dyspnea Respiratory Respiratory: Denies cough, Denies pain with cough and Denies dyspnea Gastrointestinal Gastrointestinal: Reports abdominal pain, Denies dysphagia, Reports diarrhea and Denies vomiting Genitourinary Genitourinary: Denies difficulty voiding and Reports dysuria Neurologic Neurologic: Denies headache(s) Comments: Chronic hemiparesis of the right side secondary to her stroke. [facility] All Active Problems (Updated 02/19/23 @ 23:04 by Elfego Chino DO) General weakness (Acute) Diarrhea (Acute) Bacteremia (Acute) UTI (urinary tract infection) (Acute) Complicated UTI (urinary tract infection) (Acute) Hypoalbuminemia (Acute) Hyperglycemia (Acute) High anion gap metabolic acidosis (Acute) Anemia (Chronic) Advanced care planning/counseling discussion (Acute) Gallstones (Acute) Tardive dyskinesia (Acute) Parkinsonism (Acute) History of stroke (Acute) Bipolar 1 disorder (Chronic) Bipolar affective disorder, current episode depressed (Acute) rule out bipolar disorder reported by patient. Antiepileptics maybe preventing manic episode. Major depressive disorder, recurrent, severe with psychotic features (Acute) Current presentation is depression. She may have bipolar affective disorder. Ambulatory dysfunction (Chronic) Hemiparesis affecting right side as late effect of cerebrovascular accident (Acute) Dysphagia as late effect of cerebrovascular accident (CVA) (Chronic) Dysarthria as late effect of cerebrovascular accident (CVA) (Acute) Medical History Abdominal bloating Abdominal pain Acute bronchitis Anxiety Aphasia as late effect of cerebrovascular accident Arthritis of left shoulder region Autoimmune disorder Bipolar 1 disorder Cholelithiasis with acute cholecystitis s/p cholecystostomy and stone extraction in 2014 ([facility]), tube now pulled. 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 insufficiency Chronic chest pain [employer] vasculitis Constipation Cough Diarrhea Diverticulosis Emphysematous pyelonephritis Hemiparesis affecting right side as late effect of cerebrovascular accident (CVA) Hepatitis C History of multiple cerebrovascular accidents (CVAs) Hydronephrosis of right kidney Hypertension Hypothyroidism IDDM (insulin dependent diabetes mellitus) Ileus Left rotator cuff tear Lumbar disc disease Microcytic anemia Neck pain Nephrolithiasis Neurogenic bladder Obesity (BMI 30.0-34.9) Palliative care encounter Pyelonephritis Pyuria due to bacterial urinary tract infection Staghorn calculus Static encephalopathy Steroid dependent Uterine mass likely a fibroid UTI (urinary tract infection) UTI (urinary tract infection) Surgical History Abnormal cholangiogram H/O cervical spine surgery H/O foot surgery H/O wrist surgery History of extraction of renal calculus 12/13/2018 - [facility] History of hip surgery right History of lumbosacral spine surgery S/P cystoscopy with ureteral stent placement [facility] 11/2018 Status post creation of urethral sling by suprapubic approach Family History Mother Stroke Social History Smoking/Tobacco Use Status: Former Tobacco Use Smoking risk assessment performed?: Yes Alcohol Intake: former Substance use type: former substance user and IV drugs Housing: senior living Number of Children: 5 Education Level: elementary school Details: 6th grade, special ed, left school age 16. Current gender identity: female What is your relationship status?: Panel score (0-1 are the most socially isolated patients): 0 What type of physical activity do you participate in: none Do you feel safe at home: Yes Do you feel safe in your relationship?: Yes Meds Allergies and Home Medications Allergies Allergy/AdvReac Type Severity Reaction Status Date / Time naproxen [From Aleve] Allergy Unknown Itching Unverified 12/24/22 13:04 Penicillins Allergy Unknown Itching Unverified 12/24/22 13:04 propoxyphene Allergy Unknown Itching Unverified 12/24/22 13:04 Sulfa (Sulfonamide Allergy Unknown Itching Unverified 12/24/22 13:04 Antibiotics) methadone Allergy Verified 12/24/22 13:04 Home Medications Medication Instructions Recorded Confirmed Type mirtazapine 15 mg tablet 15 mg PO QHS 03/26/20 02/19/23 History lamotrigine 25 mg tablet (Lamictal) 50 mg PO DAILY #1 tab 04/08/20 02/19/23 Rx polyethylene glycol 3350 17 17 g PO DAILY PRN 04/19/20 02/19/23 History gram/dose oral powder (Miralax) metformin 500 mg tablet 1,000 mg PO BID 12/20/20 02/19/23 History lactase 3,000 unit tablet (Lactaid) 9,000 unit PO TID 06/22/21 02/19/23 History acetaminophen 500 mg tablet 500 mg PO BID 06/01/22 02/19/23 History aspirin 81 mg tablet,delayed 81 mg PO DAILY 06/01/22 02/19/23 History release bupropion HCl 150 mg 24 hr tablet, 150 mg PO QAM 06/01/22 02/19/23 History extended release cetirizine 10 mg tablet 10 mg PO QAM 06/01/22 02/19/23 History diclofenac sodium 1 % topical gel 1 applic topical BID 06/01/22 02/19/23 History dulaglutide 1.5 mg/0.5 mL 1 device subcut DIRECTED 06/01/22 02/19/23 History subcutaneous pen injector (Trulicity) fluticasone propionate 50 1 spray intranasal BID 06/01/22 02/19/23 History mcg/actuation nasal spray,suspension (Flonase Allergy Relief) linaclotide 145 mcg capsule 145 mcg PO DAILY 06/01/22 02/19/23 History B-complex with vitamin C 1 cap PO DAILY 11/09/22 02/19/23 History carbidopa 25 mg-levodopa 100 mg 1 tab PO QID 11/09/22 02/19/23 History tablet levothyroxine 100 mcg tablet 100 mcg PO DAILY 11/09/22 02/19/23 History multivitamin-ferrous 1 tab PO DAILY 11/09/22 02/19/23 History fumarate-folic acid 18 mg-400 mcg tablet (Centrum Complete) omeprazole 20 mg capsule,delayed 20 mg PO DAILY 11/09/22 02/19/23 History release ropinirole 0.5 mg tablet 0.5 mg PO QHS 11/09/22 02/19/23 History atorvastatin 20 mg tablet 20 mg PO QPM #0 tabs 11/28/22 02/19/23 Rx glycerin (adult) (Fleet Glycerin 1 supp [place] DAILY #0 ea 11/28/22 02/19/23 Rx (Adult) rectal suppository) tramadol 50 mg tablet 50 mg PO Q4H PRN PRN #0 tabs 11/28/22 02/19/23 Rx lorazepam 0.5 mg tablet 0.5 mg PO BID 12/24/22 02/19/23 History albuterol sulfate 90 mcg/actuation 2 puff inhalation Q4H PRN PRN #0 01/01/23 02/19/23 Rx aerosol inhaler (Ventolin HFA) grams magnesium oxide 800 mg PO BIDWMEAL #0 tabs 01/01/23 02/19/23 Rx zinc oxide 12 % topical cream 1 applic topical PRN PRN #57 grams 01/01/23 02/19/23 Rx (Mckayla Protect (zinc oxide)) benzocaine 20 %-menthol 0.1 %-zinc 1 applic mucous membrane QID PRN 01/19/23 02/19/23 Rx chloride 0.15 % mucosal gel #5.1 grams (Orajel 3X Mouth Sores) docusate sodium 100 mg capsule 200 mg PO .BID, PRN 01/19/23 02/19/23 History (Colace) gabapentin 600 mg tablet 600 mg PO BID 01/19/23 02/19/23 History lidocaine 5 % topical patch 1 patch topical Q24H #0 ea 01/19/23 02/19/23 Rx quetiapine 100 mg tablet 100 mg PO TID 01/19/23 02/19/23 History simethicone 180 mg capsule 180 mg PO TID PRN 01/19/23 02/19/23 History trazodone 50 mg tablet 50 mg PO BID 01/19/23 02/19/23 History lactase 3,000 unit tablet (Lactaid) 3,000 unit PO ONCE PRN 02/08/23 02/19/23 History multivitamin 1 tab PO DAILY 02/08/23 02/19/23 History calcium carbonate 200 mg calcium 500 mg PO Q4H PRN PRN Dyspepsia 02/09/23 02/19/23 History (500 mg) chewable tablet (Tums) calcium carbonate 200 mg calcium 500 mg PO Q4H PRN PRN dyspepsia #0 02/12/23 02/19/23 Rx (500 mg) chewable tablet tabs quetiapine 50 mg tablet 50 mg PO DAILY@1400 #0 tabs 02/12/23 02/19/23 Rx cefpodoxime 200 mg tablet 200 mg PO Q12H #14 tabs 02/18/23 02/19/23 Rx Exam Const General: cooperative, not healthy appearing and no acute distress Nutritional Appearance: obese Neck Neck: normal visual inspection, no lymphadenopathy and no JVD Resp Auscultation: clear to auscultation bilaterally, no rales, no rhonchi and no wheezes Cardio Rate: regular rate Rhythm: regular rhythm Heart Sounds: S1 normal, S2 normal, no gallops and no murmurs GI Palpation: soft, no hepatosplenomegaly, not firm and nontender Other: Abdomen is moderately distended. Extrem Other: She cannot move her right lower extremity and there is minimal movement of her right upper extremity. This is chronic from her previous stroke. Results Labs 02/19/23 21:05 02/19/23 21:05 Labs: Laboratory Results - last 24 hr 02/19/23 02/19/23 02/19/23 21:05 21:05 21:05 WBC 5.32 RBC 3.87 L Hgb 10.8 L Hct 36.0 MCV 93 MCH 27.9 MCHC 30.0 L RDW 17.4 H Plt Count 201 MPV 8.9 Immature Gran % 0.6 Neutrophils % 54.2 Lymphocytes % 34.4 Monocytes % 9.8 Eosinophils % 0.6 Basophils % 0.4 Nucleated RBC % 0.0 Absolute Neutrophils 2.89 Absolute Lymphocytes 1.83 Absolute Monocytes 0.52 Absolute Eosinophils 0.03 Absolute Basophils 0.02 VBG Lactate 3.5 H* Sodium 145 Potassium 3.3 L Chloride 111 H Carbon Dioxide 27.0 Anion Gap 7.0 BUN 4 L Creatinine 0.7 Est GFR (CKD-EPI 2020) 97.72 Glucose 106 Calcium 7.9 L Total Bilirubin 0.5 AST 30 ALT 7 L Alkaline Phosphatase 83 Total Protein 6.0 L Albumin 1.8 L Urine Color Urine Clarity Urine pH Ur Specific [place] Urine Protein Urine Ketones Urine Blood Urine Nitrite Urine Bilirubin Urine Urobilinogen Ur Leukocyte Esterase Urine RBC Urine WBC Ur Epithelial Cells Urine Crystals Urine Bacteria Urine Casts Urine Mucus Urine Other Ur Culture Indicated? Urine Glucose Stl C.difficile Tox PCR 02/19/23 02/19/23 22:08 22:27 WBC RBC Hgb Hct MCV MCH MCHC RDW Plt Count MPV Immature Gran % Neutrophils % Lymphocytes % Monocytes % Eosinophils % Basophils % Nucleated RBC % Absolute Neutrophils Absolute Lymphocytes Absolute Monocytes Absolute Eosinophils Absolute Basophils VBG Lactate Sodium Potassium Chloride Carbon Dioxide Anion Gap BUN Creatinine Est GFR (CKD-EPI 2020) Glucose Calcium Total Bilirubin AST ALT Alkaline Phosphatase Total Protein Albumin Urine Color Yellow Urine Clarity Sl Cloudy Urine pH 6.5 Ur Specific [place] 1.010 Urine Protein 100 H Urine Ketones Negative Urine Blood Moderate H Urine Nitrite Negative Urine Bilirubin Negative Urine Urobilinogen 0.2 Ur Leukocyte Esterase Small H Urine RBC 5-10 H Urine WBC >50 H Ur Epithelial Cells Rare Urine Crystals Negative Urine Bacteria Few Urine Casts Negative Urine Mucus Negative Urine Other Rare Transitional Ur Culture Indicated? Yes Urine Glucose Negative Stl C.difficile Tox PCR Negative Last Vital Signs Temp 36.6 C 02/19/23 20:44 Pulse 101 H 02/19/23 23:31 Resp 23 02/19/23 23:40 BP 95/80 L 02/19/23 23:31 Pulse Ox 100 02/19/23 23:40 Time Spent Time spent with Patient: 55-74 minutes Time was spent: preparing to see the patient(eg.review tests), obtaining and/or reviewing separately otained hiistory, ordering medications,tests, procedures and referring, communicating with other health care technician
[2023-02-20] VITALS (15 sets, daily range): BP systolic 79–117; BP diastolic 45–73; PULSE 76–96; RESP 12–18; TEMP 35.5–36.5; O2SAT 95–100
--- NOTE | 2023-02-20 | DI.US_ITS ---
Exam(s) US RENAL EXAM: US RENAL CLINICAL HISTORY: UTI, urosepsis; hx of pyelonephritis TECHNIQUE: Ultrasound of both kidneys performed using standard protocol. COMPARISON: US POCUS EXAM from 02/09/[address] ABDOMEN PELVIS W from 02/19/2023 FINDINGS: RIGHT KIDNEY: Measures 9.4 cm in length. No cysts evident. Normal cortical thickness and corticomedullary different iation .No solid masses No intrarenal calculi nor hydronephrosis. LEFT KIDNEY: Measures 11.4 cm in length. No cysts evident. Normal cortical thickness and corticomedullary differe ntiaion. No solids masses. No intrarenal calculi nor hydonephrosis. URINARY BLADDER: Prevoid volume is 20 cc Postvoid volume is there are 0 cc No evidence of bladder mass nor diverticuli. Ureterovesical jets: Both identified and appear symmetrical IMPRESSION: 1. No significant focal ultrasound findings in the kidneys. 2. Also no evidence of hydronephrosis on either side. DATA REPOSITORY:
[2023-02-20] MEDS: MORPHine 4 MG/ML SYR IVP (00:12)
[2023-02-20] MEDS: Normal Saline 500 ML IV (01:14)
--- NOTE | 2023-02-20 02:30 | RT.EKG_ITS ---
APPROVED REPORT Exam: Resting ECG Reason for Exam: hypotension Patient Location: I HR:83 bpm ECG Measurements Heart Rate 83 AXIS IA 151 P 32 QRSd 104 QRS 3 QT 378 T 36 QTc 445 Conclusion Sinus rhythm...normal P axis, V-rate 50- 99 Normal Electrocardiogram
[2023-02-20] MEDS: Normal Saline 1,000 ML 150 ML IV ×2 (02:49→03:46)
[2023-02-20] MEDS: Normal Saline 1,000 ML 1000 ML IV (02:53)
[2023-02-20 03:42] LABS: Lactate 2.5 mmol/L (0.6-1.4)
[2023-02-20] MEDS: Hydrocortisone SOD SUC. 100 MG VIAL IVP (03:45)
[2023-02-20 03:47] LABS: Abs Immature Grans 0.02 10^3/uL (0.0-0.06); Absolute Basophil Count 0.01 10^3/uL (0.0-0.2); Absolute Eosinophil Count 0.03 10^3/uL (0.0-0.7); Absolute Monocyte Count 0.44 10^3/uL (0.1-0.8); Absolute Neutrophil Count 2.51 10^3/uL (1.2-6.7); Basophils % 0.2; Eosinophils % 0.6; HCT 32.2 % (36.0-46.0); HGB 9.6 g/dL (11.2-15.7); Immature Grans % 0.4; Lymphocytes % 37.4; MCH 28.6 pg (27.0-33.0); MCHC 29.8 % (32.0-36.0); MCV 96 fL (80-95); MPV 9.5 fL (8.0-11.0); Monocytes % 9.1; Neutrophils % 52.3; Platelet Count 186 10^3/uL (130-400); RBC 3.36 10^6/uL (3.93-5.22); RDW 17.5 % (11.7-14.6); WBC 4.81 10^3/uL (4.4-10.8)
[2023-02-20 04:07] LABS: Anion Gap 8.4 mmol/L (3-11); BUN 4 mg/dL (7-18); CO2 23.6 mmol/L (21.0-32.0); CREATININE 0.6 mg/dL (0.55-1.02); Calcium 7.3 mg/dL (8.5-10.1); Chloride 115 mmol/L (98-107); Estimated GFR 101.42 (mL/min/1.73m2); Glucose 77 mg/dL (74-106); Magnesium 1.7 mg/dL (1.8-2.4); Potassium 3.7 mmol/L (3.5-5.1); Sodium 147 mmol/L (136-145); Troponin I < 50 ng/L (<or=60)
[2023-02-20] MEDS: traMADol 50 MG TAB PO ×4 (04:40→22:32)
[2023-02-20] MEDS: Levothyroxine 100 MCG TAB PO (05:41)
[2023-02-20] MEDS: Acetaminophen 500 MG TAB PO ×2 (08:29→20:07)
[2023-02-20] MEDS: Aspirin E.C. 81 MG TABEC PO (08:30)
[2023-02-20] MEDS: buPROPion-XL 150 MG TABCR PO (08:30)
[2023-02-20] MEDS: Carbidopa 25/Levodopa 100 TAB PO ×4 (08:31→20:07)
[2023-02-20] MEDS: Gabapentin 600 MG TAB PO ×2 (08:31→20:07)
[2023-02-20] MEDS: Enoxaparin 40 MG/0.4 ML SYR SC (08:31)
[2023-02-20] MEDS: Cetirizine 10 MG TAB PO (08:31)
[2023-02-20] MEDS: Lidocaine 5% Patch 1 PATCH TP (08:33)
[2023-02-20] MEDS: lamoTRIgine 25 MG TAB 50 MG PO (08:33)
[2023-02-20] MEDS: LORazepam 0.5 MG TAB PO ×2 (08:33→20:08)
[2023-02-20] MEDS: Magnesium Oxide 400 MG TAB 800 MG PO ×2 (08:34→17:34)
[2023-02-20] MEDS: predniSONE 20 MG TAB 40 MG PO (08:34)
[2023-02-20] MEDS: Omeprazole 20 MG CAPCR PO (08:34)
[2023-02-20] MEDS: traZODone 50 MG TAB PO ×2 (08:35→20:08)
[2023-02-20] MEDS: Simethicone 80 MG CHEW 160 MG PO ×2 (08:35→12:28)
[2023-02-20] MEDS: QUEtiapine 100 MG TAB PO ×2 (08:35→20:08)
[2023-02-20] MEDS: Normal Saline Flush 10 ML SYR IVP (08:36)
[2023-02-20] MEDS: Lactated Ringers 1,000 ML 150 ML IV (08:37)
[2023-02-20] MEDS: MAGNESIUM SULFATE 2 GM/50 ML BAG IVPB (10:04)
[2023-02-20] MEDS: Fluticasone NASAL SPRAY 16 GM BTL NS ×2 (10:07→20:15)
[2023-02-20] MEDS: Diclofenac 1% Gel 100 GM TUBE TP ×2 (10:07→20:14)
[2023-02-20 10:08] LABS: Lactate 4.4 mmol/L (0.6-1.4)
[2023-02-20] MEDS: Insulin NPH-Human 300 UNITS/3 ML PEN 20 UNIT SC (10:15)
[2023-02-20 10:40] LABS: Anion Gap 14.6 mmol/L (3-11); BUN 4 mg/dL (7-18); C-Reactive Protein 2.38 mg/dL (0.0-0.3); CO2 19.4 mmol/L (21.0-32.0); CREATININE 0.7 mg/dL (0.55-1.02); Calcium 7.9 mg/dL (8.5-10.1); Chloride 112 mmol/L (98-107); Estimated GFR 97.72 (mL/min/1.73m2); Glucose 242 mg/dL (74-106); Potassium 4.3 mmol/L (3.5-5.1); Sodium 146 mmol/L (136-145)
[2023-02-20 10:41] LABS: Magnesium 1.6 mg/dL (1.8-2.4)
[2023-02-20 10:59] LABS: Procalcitonin 4.2 ng/mL
[2023-02-20] MEDS: VANCOMYCIN/WATER (PEG) 1.25 GM/250 ML BAG IVPB ×2 (12:29→23:20)
[2023-02-20] MEDS: Insulin Aspart 300 UNITS/3 ML PEN SC ×2 (12:31→17:35)
--- NOTE | 2023-02-20 13:26 | CHAPLAIN ---
Gingre and I know each other from her previous admissions. When she is here, I usually spend some time reading the Bible to her. Today Ginger tells me that she has another infection and is dehydrated. She lives at the [facility]. Ginger is exited to tell me that she found out she can get an ambulance to transport her to a facility [place], [place], where many family members and friends live. She said she was told by one facility that they would let her know in 30 to 60 days if she's been accepted. I will continue to visit.
--- NOTE | 2023-02-20 15:04 | PDOC.CMIN ---
Date of service: 02/20/23 Time of Service: 15:07 Care Management Initial Assmt Initial Assessment REASON FOR HOSPITALIZATION:: Bacteremia likely due to UTI PREVIOUS FUNCTIONAL STATUS/SOCIAL/FAMILY SUPPORTS:: Currently resides at [facility] as a long-term resident. Patient states that she has been dependent in all functional mobility and transfers as well as self-care since her stroke resulting in right hemiplegia upper and lower extremity. Patient able to communicate without limitations. Indicates that she utilizes a Ashley lift at baseline however has essentially been in bed for the last 5 months secondary to breathing limitations both in supine and upright sitting positions. States she requires assistance with functional transfers and has not ambulated in multiple years. Does require some assist for self-care activities. States the nursing care facility does assist with pressure relief techniques. CURRENT FUNCTIONAL STATUS:: Ginger was lying in bed when CM met with her. She had her makeup out and was getting herself ready for the day. She stated that she has been going back and forth from [facility] to [facility], and states that she can't kick this illness. She discussed how [facility] is helping to relocate her to a SNF/LTC facility in [place], which she is looking forward to. She requested that CM ask the Manager Sterile to visit today. CM will continue to follow. ADVANCE DIRECTIVES:: [facility] on file, Luis Armando Moe (dad) listed as HCA. Has patient been provided with info about the portal/API?: Yes Did the patient sign up for the portal?: No CODE STATUS:: Full Code INSURANCE COVERAGE / FINANCIAL ISSUES:: [facility] CURRENT HOME/COMMUNITY SERVICES/EQUIPMENT:: Ginger lives at the [facility] as a nursing home resident, and receives assistance for her ADL's. PRIMARY CARE PHYSICIAN:: Agueda Bingham POTENTIAL DISCHARGE NEEDS:: Coordinated return to the [facility]. PATIENT/FAMILY EDUCATION NEEDS:: Review discharge instructions and limitations, discussion of self care needs including ask me three. ANTICIPATED BARRIERS TO DISCHARGE:: None identified. TRANSPORTATION:: EMS- [facility] PLAN:: Anticipate Ginger will return home once medically cleared. CM will coordinate her return to the [facility] via EMS, likely [facility]. She will follow up with facility providers and her discharge plan of care. CM will continue to follow. PFSH All Active Problems (Updated 02/19/23 @ 23:04 by Elfego Chino DO) General weakness (Acute) Diarrhea (Acute) Bacteremia (Acute) UTI (urinary tract infection) (Acute) Complicated UTI (urinary tract infection) (Acute) Hypoalbuminemia (Acute) Hyperglycemia (Acute) High anion gap metabolic acidosis (Acute) Anemia (Chronic) Advanced care planning/counseling discussion (Acute) Gallstones (Acute) Tardive dyskinesia (Acute) Parkinsonism (Acute) History of stroke (Acute) Bipolar 1 disorder (Chronic) Bipolar affective disorder, current episode depressed (Acute) rule out bipolar disorder reported by patient. Antiepileptics maybe preventing manic episode. Major depressive disorder, recurrent, severe with psychotic features (Acute) Current presentation is depression. She may have bipolar affective disorder. Ambulatory dysfunction (Chronic) Hemiparesis affecting right side as late effect of cerebrovascular accident (Acute) Dysphagia as late effect of cerebrovascular accident (CVA) (Chronic) Dysarthria as late effect of cerebrovascular accident (CVA) (Acute) Medical History Abdominal bloating Abdominal pain Acute bronchitis Anxiety Aphasia as late effect of cerebrovascular accident Arthritis of left shoulder region Autoimmune disorder Bipolar 1 disorder Cholelithiasis with acute cholecystitis s/p cholecystostomy and stone extraction in 2014 ([facility]), tube now pulled. 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 insufficiency Chronic chest pain [employer] vasculitis Constipation Cough Diarrhea Diverticulosis Emphysematous pyelonephritis Hemiparesis affecting right side as late effect of cerebrovascular accident (CVA) Hepatitis C History of multiple cerebrovascular accidents (CVAs) Hydronephrosis of right kidney Hypertension Hypothyroidism IDDM (insulin dependent diabetes mellitus) Ileus Left rotator cuff tear Lumbar disc disease Microcytic anemia Neck pain Nephrolithiasis Neurogenic bladder Obesity (BMI 30.0-34.9) Palliative care encounter Pyelonephritis Pyuria due to bacterial urinary tract infection Staghorn calculus Static encephalopathy Steroid dependent Uterine mass likely a fibroid UTI (urinary tract infection) UTI (urinary tract infection) Surgical History Abnormal cholangiogram H/O cervical spine surgery H/O foot surgery H/O wrist surgery History of extraction of renal calculus 12/13/2018 - [facility] History of hip surgery right History of lumbosacral spine surgery S/P cystoscopy with ureteral stent placement [facility] 11/2018 Status post creation of urethral sling by suprapubic approach Family History Mother Stroke Social History Smoking/Tobacco Use Status: Former Tobacco Use Smoking risk assessment performed?: Yes Alcohol Intake: former Substance use type: former substance user and IV drugs Housing: [facility] Number of Children: 5 Education Level: elementary school Details: 6th grade, special ed, left school age 16. Current gender identity: female What is your relationship status?: Panel score (0-1 are the most socially isolated patients): 0 What type of physical activity do you participate in: none Do you feel safe at home: Yes Do you feel safe in your relationship?: Yes Readmission Within the Past 30 Days Yes or No: Yes Date of First Admission Date of 1st Admission: 02/08/23 Date of this Admission Date of Admission: 02/19/23 Office Visit Since 1st Admission Have you seen your PCP in the office since discharge?: No Date of Scheduled Appointment: 1-2 weeks, per discharge summary Describe barriers for scheduling or getting an appointment: Pt resides in SNF, PCP is facility provider, subject to availability of that provider. I. Interview patient and/or Family Difficulty reaching your doctor or getting an office appt?: Yes Have you had trouble purchasing/ or taking medication?: No How do you take your medications and set up your pills?: with assistance at facility Have you had trouble with getting meals at home?: No Describe your typical meals since you have been home: provided by facility Did you feel ready for discharge when you left the last time: Yes Why weren't services received?: No additional services indicated, SNF director long term care care resident Reason there were no orders at discharge: Pt lives in a nursing facility, director long term care Did your physician tell you to come in?: Yes How do you think you became sick enough to come back?: Ginger stated that she just can't kick it regarding her recurrent UTI. ED visits How many ED visits in the past 12 months: 5 Assessment for Readmission Summary of readmission circumstances, based upon interviews: Ginger resides at [facility], and has been brought to the ED many times recently for treatment of a UTI. She stated that she feels that she can't kick it. Per chart review, her WBC is within normal range, and she does not have a fever. She is being treated with antibiotics, awaiting sensitivities. She will return to the [facility] once she is medically cleared for discharge.
[2023-02-20] MEDS: QUEtiapine 50 MG TAB PO (15:42)
--- NOTE | 2023-02-20 16:01 | W.PM.PROGNOT ---
Date of Service Date of service: 02/20/23 Time of Service: 16:01 Assessment and Plan Assessment and plan (1) Diarrhea: Status: Acute Assessment and plan: Stool studies and C. difficile test have been negative. review of record shows history of diarrhea. She says that a colonoscopy is going to be set up, reasonable to wait for outpatient as planned. CT scan of abd/pelvis shows no colitis/diverticulitis: there are multiple loops of gas and fluid-filled small and large bowel loops.? There appears to be diarrhea, as described above.? No obvious bowel obstruction or free intraperitoneal air.? There is no ascites (2) Bacteremia: Status: Acute Assessment and plan: blood culture 1 specimen positive for gram-positive cocci from February 18. Likely source is urinary tract vs contaminent. continue vancomycin and aztreonam day 2 lactate level has remained elevated despite broad spectrum antibiotics and receiving intravenous fluids, she's been afebrile and hemodynamically stable. (3) UTI (urinary tract infection): Status: Acute Assessment and plan: Urine culture with gram-positive and gram-negative bacteria, lozada catheter changed. continue antibiotics as listed above (4) Diabetes mellitus type 2, insulin dependent: Status: Acute Assessment and plan: A1C 6.6 in December of 2022 (5) Bipolar 1 disorder: Status: Chronic Assessment and plan: stable, continue home medication (6) Hemiparesis affecting right side as late effect of cerebrovascular accident: Status: Chronic Assessment and plan: continue asa and statin. (7) Discharge planning issues: Status: Acute Assessment and plan: will return to the [facility] when medically stable. discussed with DR Jack Subjective Subjective Patient reports: no new complaints, feels better, tolerating liquids well, tolerating a regular diet and afebrile; denies shortness of breath Exam Const General: cooperative and no acute distress Nutritional Appearance: average body habitus Orientation: alert, awake and oriented x3 Chest Chest: normal inspection of the chest Resp Effort & Inspection: normal respiratory effort Cardio Rate: regular rate Rhythm: regular rhythm GI Inspection: normal to inspection Skin General skin exam: no rashes or lesions noted Neuro General: patient alert, patient awake and patient oriented x3 Extrem General: other (contracted upper extremities) Objective Last Vital Signs Temp 36.1 C L 02/20/23 14:48 Pulse 96 H 02/20/23 14:48 Resp 12 02/20/23 14:48 BP 97/61 L 02/20/23 14:48 Pulse Ox 98 02/20/23 14:48 Laboratory Results - last 24 hr 02/19/23 02/19/23 02/19/23 21:05 21:05 21:05 WBC 5.32 RBC 3.87 L Hgb 10.8 L Hct 36.0 MCV 93 MCH 27.9 MCHC 30.0 L RDW 17.4 H Plt Count 201 MPV 8.9 Immature Gran % 0.6 Neutrophils % 54.2 Lymphocytes % 34.4 Monocytes % 9.8 Eosinophils % 0.6 Basophils % 0.4 Nucleated RBC % 0.0 Absolute Neutrophils 2.89 Absolute Lymphocytes 1.83 Absolute Monocytes 0.52 Absolute Eosinophils 0.03 Absolute Basophils 0.02 VBG Lactate 3.5 H* Sodium 145 Potassium 3.3 L Chloride 111 H Carbon Dioxide 27.0 Anion Gap 7.0 BUN 4 L Creatinine 0.7 Est GFR (CKD-EPI 2020) 97.72 Glucose 106 Calcium 7.9 L Magnesium Total Bilirubin 0.5 AST 30 ALT 7 L Alkaline Phosphatase 83 Troponin I C-Reactive Protein Total Protein 6.0 L Albumin 1.8 L Procalcitonin Urine Color Urine Clarity Urine pH Ur Specific [place] Urine Protein Urine Ketones Urine Blood Urine Nitrite Urine Bilirubin Urine Urobilinogen Ur Leukocyte Esterase Urine RBC Urine WBC Ur Epithelial Cells Urine Crystals Urine Bacteria Urine Casts Urine Mucus Urine Other Ur Culture Indicated? Urine Glucose Stl C.difficile Tox PCR 02/19/23 02/19/23 02/20/23 22:08 22:27 03:00 WBC RBC Hgb Hct MCV MCH MCHC RDW Plt Count MPV Immature Gran % Neutrophils % Lymphocytes % Monocytes % Eosinophils % Basophils % Nucleated RBC % Absolute Neutrophils Absolute Lymphocytes Absolute Monocytes Absolute Eosinophils Absolute Basophils VBG Lactate Cancelled Sodium Potassium Chloride Carbon Dioxide Anion Gap BUN Creatinine Est GFR (CKD-EPI 2020) Glucose Calcium Magnesium Total Bilirubin AST ALT Alkaline Phosphatase Troponin I C-Reactive Protein Total Protein Albumin Procalcitonin Urine Color Yellow Urine Clarity Sl Cloudy Urine pH 6.5 Ur Specific [place] 1.010 Urine Protein 100 H Urine Ketones Negative Urine Blood Moderate H Urine Nitrite Negative Urine Bilirubin Negative Urine Urobilinogen 0.2 Ur Leukocyte Esterase Small H Urine RBC 5-10 H Urine WBC >50 H Ur Epithelial Cells Rare Urine Crystals Negative Urine Bacteria Few Urine Casts Negative Urine Mucus Negative Urine Other Rare Transitional Ur Culture Indicated? Yes Urine Glucose Negative Stl C.difficile Tox PCR Negative 02/20/23 02/20/23 02/20/23 03:30 03:30 03:30 WBC 4.81 RBC 3.36 L Hgb 9.6 L Hct 32.2 L MCV 96 H MCH 28.6 MCHC 29.8 L RDW 17.5 H Plt Count 186 MPV 9.5 Immature Gran % 0.4 Neutrophils % 52.3 Lymphocytes % 37.4 Monocytes % 9.1 Eosinophils % 0.6 Basophils % 0.2 Nucleated RBC % 0.0 Absolute Neutrophils 2.51 Absolute Lymphocytes 1.80 Absolute Monocytes 0.44 Absolute Eosinophils 0.03 Absolute Basophils 0.01 VBG Lactate 2.5 H* Sodium 147 H Potassium 3.7 Chloride 115 H Carbon Dioxide 23.6 Anion Gap 8.4 BUN 4 L Creatinine 0.6 Est GFR (CKD-EPI 2020) 101.42 Glucose 77 Calcium 7.3 L Magnesium 1.7 L Total Bilirubin AST ALT Alkaline Phosphatase Troponin I < 50 C-Reactive Protein Total Protein Albumin Procalcitonin Urine Color Urine Clarity Urine pH Ur Specific [place] Urine Protein Urine Ketones Urine Blood Urine Nitrite Urine Bilirubin Urine Urobilinogen Ur Leukocyte Esterase Urine RBC Urine WBC Ur Epithelial Cells Urine Crystals Urine Bacteria Urine Casts Urine Mucus Urine Other Ur Culture Indicated? Urine Glucose Stl C.difficile Tox PCR 02/20/23 02/20/23 02/20/23 05:35 09:52 09:52 WBC RBC Hgb Hct MCV MCH MCHC RDW Plt Count MPV Immature Gran % Neutrophils % Lymphocytes % Monocytes % Eosinophils % Basophils % Nucleated RBC % Absolute Neutrophils Absolute Lymphocytes Absolute Monocytes Absolute Eosinophils Absolute Basophils VBG Lactate Sodium Cancelled 146 H Potassium Cancelled 4.3 Chloride Cancelled 112 H Carbon Dioxide Cancelled 19.4 L Anion Gap Cancelled 14.6 H BUN Cancelled 4 L Creatinine Cancelled 0.7 Est GFR (CKD-EPI 2020) Cancelled 97.72 Glucose Cancelled 242 H Calcium Cancelled 7.9 L Magnesium Cancelled 1.6 L Total Bilirubin AST ALT Alkaline Phosphatase Troponin I C-Reactive Protein 2.38 H Total Protein Albumin Procalcitonin Urine Color Urine Clarity Urine pH Ur Specific [place] Urine Protein Urine Ketones Urine Blood Urine Nitrite Urine Bilirubin Urine Urobilinogen Ur Leukocyte Esterase Urine RBC Urine WBC Ur Epithelial Cells Urine Crystals Urine Bacteria Urine Casts Urine Mucus Urine Other Ur Culture Indicated? Urine Glucose Stl C.difficile Tox PCR 02/20/23 09:52 WBC RBC Hgb Hct MCV MCH MCHC RDW Plt Count MPV Immature Gran % Neutrophils % Lymphocytes % Monocytes % Eosinophils % Basophils % Nucleated RBC % Absolute Neutrophils Absolute Lymphocytes Absolute Monocytes Absolute Eosinophils Absolute Basophils VBG Lactate 4.4 H* Sodium Potassium Chloride Carbon Dioxide Anion Gap BUN Creatinine Est GFR (CKD-EPI 2020) Glucose Calcium Magnesium Total Bilirubin AST ALT Alkaline Phosphatase Troponin I C-Reactive Protein Total Protein Albumin Procalcitonin 4.2 Urine Color Urine Clarity Urine pH Ur Specific [place] Urine Protein Urine Ketones Urine Blood Urine Nitrite Urine Bilirubin Urine Urobilinogen Ur Leukocyte Esterase Urine RBC Urine WBC Ur Epithelial Cells Urine Crystals Urine Bacteria Urine Casts Urine Mucus Urine Other Ur Culture Indicated? Urine Glucose Stl C.difficile Tox PCR Time Spent with Patient Time Spent with Patient: 35-49 minutes Time was spent: preparing to see the patient(eg.review tests), obtaining and/or reviewing separately otained hiistory, ordering medications,tests, procedures and indepentently interpreting results
[2023-02-20 18:02] LABS: Lactate 2.4 mmol/L (0.6-1.4)
[2023-02-20] MEDS: Atorvastatin 20 MG TAB PO (20:08)
[2023-02-20] MEDS: rOPINIRole 0.5 MG TAB PO (22:11)
[2023-02-20] MEDS: Mirtazapine 15 MG TAB PO (22:11)
[2023-02-20 23:38] LABS: Campylobacter PCR Negative (Negative); Salmonella PCR Negative (Negative); Shiga Toxin PCR Negative (Negative); Shigella/Enteroinvasive Ecoli Negative (Negative)
[2023-02-21 02:43] VITALS: BP 118/72; PULSE 82; RESP 16; TEMP 36.6; O2SAT 94
[2023-02-21] MEDS: Lactated Ringers 1,000 ML 125 ML IV (05:34)
[2023-02-21] MEDS: Levothyroxine 100 MCG TAB PO (06:00)
[2023-02-21] MEDS: traMADol 50 MG TAB PO ×4 (06:00→21:07)
[2023-02-21 07:10] LABS: Abs Immature Grans 0.04 10^3/uL (0.0-0.06); Absolute Basophil Count 0.01 10^3/uL (0.0-0.2); Absolute Lymphocyte Count 0.97 10^3/uL (1.2-3.4); Absolute Neutrophil Count 3.76 10^3/uL (1.2-6.7); Basophils % 0.2; HCT 33.6 % (36.0-46.0); HGB 10.1 g/dL (11.2-15.7); Immature Grans % 0.8; Lactate 2.3 mmol/L (0.6-1.4); Lymphocytes % 19.1; MCH 27.6 pg (27.0-33.0); MCHC 30.1 % (32.0-36.0); MCV 92 fL (80-95); MPV 9.1 fL (8.0-11.0); Monocytes % 5.9; Platelet Count 208 10^3/uL (130-400); RBC 3.66 10^6/uL (3.93-5.22); RDW 16.9 % (11.7-14.6); RDW-SD 56.8 fL; WBC 5.08 10^3/uL (4.4-10.8)
[2023-02-21 07:16] LABS: C-Reactive Protein 1.62 mg/dL (0.0-0.3); Magnesium 1.7 mg/dL (1.8-2.4)
[2023-02-21 07:36] LABS: ALT 9 U/L (14-59); AST 20 U/L (15-37); Albumin 1.7 g/dL (3.4-5.0); Alkaline Phosphatase 85 U/L (46-116); Anion Gap 7.4 mmol/L (3-11); BUN 7 mg/dL (7-18); Bilirubin, Total 0.2 mg/dL (0.2-1.0); CO2 24.6 mmol/L (21.0-32.0); CREATININE 0.7 mg/dL (0.55-1.02); Calcium 8.1 mg/dL (8.5-10.1); Chloride 112 mmol/L (98-107); Estimated GFR 97.72 (mL/min/1.73m2); Glucose 209 mg/dL (74-106); Potassium 3.7 mmol/L (3.5-5.1); Sodium 144 mmol/L (136-145); Total Protein 5.9 g/dL (6.4-8.2)
[2023-02-21 07:43] VITALS: BP 130/77; PULSE 82; RESP 18; TEMP 35.4; O2SAT 98
--- NOTE | 2023-02-21 09:20 | W.PM.PROGNOT ---
Date of Service Date of service: 02/21/23 Time of Service: 09:20 Assessment and Plan Assessment and plan (1) Diarrhea: Status: Acute Assessment and plan: Stool studies and C. difficile test pending. Colonoscopy for March (2) Bacteremia: Status: Acute Assessment and plan: repeat blood cultures pending. grew staph epidimitis in one bottle (3) UTI (urinary tract infection): Status: Acute Assessment and plan: Urine culture from yesterday shows gram-positive and gram-negative bacteria and urine culture has been repeated today discussed with DR Jack. Subjective Subjective Patient reports: no new complaints, tolerating liquids well, tolerating a regular diet, diarrhea and afebrile; denies shortness of breath Exam Const General: cooperative and no acute distress Nutritional Appearance: average body habitus Orientation: alert, awake and oriented x3 Chest Chest: normal inspection of the chest Resp Effort & Inspection: normal respiratory effort Cardio Rate: regular rate Rhythm: regular rhythm GI Inspection: normal to inspection Skin General skin exam: no rashes or lesions noted Neuro General: patient alert, patient awake and patient oriented x3 Extrem General: other (contracted upper extremities) Psych Mental Status: mental status grossly normal Speech and Movement: other (baseline) Mood: congruent mood Affect: normal affect Objective Last Vital Signs Temp 35.4 C L 02/21/23 07:43 Pulse 82 02/21/23 07:43 Resp 18 02/21/23 07:43 BP 130/77 02/21/23 07:43 Pulse Ox 98 02/21/23 07:43 Laboratory Results - last 24 hr 02/19/23 02/20/23 02/20/23 22:08 09:52 09:52 WBC RBC Hgb Hct MCV MCH MCHC RDW Plt Count MPV Immature Gran % Neutrophils % Lymphocytes % Monocytes % Eosinophils % Basophils % Nucleated RBC % Absolute Neutrophils Absolute Lymphocytes Absolute Monocytes Absolute Eosinophils Absolute Basophils VBG Lactate Sodium 146 H Potassium 4.3 Chloride 112 H Carbon Dioxide 19.4 L Anion Gap 14.6 H BUN 4 L Creatinine 0.7 Est GFR (CKD-EPI 2020) 97.72 Glucose 242 H Calcium 7.9 L Magnesium 1.6 L Total Bilirubin AST ALT Alkaline Phosphatase C-Reactive Protein 2.38 H Total Protein Albumin Procalcitonin Stool Campylobacter PCR Negative Stool Salmonella PCR Negative Stool Shigella PCR Negative Shiga Toxin (PCR) Negative 0502/20/23 02/20/23 09:52 17:54 22:16 WBC RBC Hgb Hct MCV MCH MCHC RDW Plt Count MPV Immature Gran % Neutrophils % Lymphocytes % Monocytes % Eosinophils % Basophils % Nucleated RBC % Absolute Neutrophils Absolute Lymphocytes Absolute Monocytes Absolute Eosinophils Absolute Basophils VBG Lactate 4.4 H* 2.4 H* 3.0 H* Sodium Potassium Chloride Carbon Dioxide Anion Gap BUN Creatinine Est GFR (CKD-EPI 2020) Glucose Calcium Magnesium Total Bilirubin AST ALT Alkaline Phosphatase C-Reactive Protein Total Protein Albumin Procalcitonin 4.2 Stool Campylobacter PCR Stool Salmonella PCR Stool Shigella PCR Shiga Toxin (PCR) 02/21/23 02/21/23 02/21/23 06:52 06:52 06:52 WBC 5.08 RBC 3.66 L Hgb 10.1 L Hct 33.6 L MCV 92 D MCH 27.6 MCHC 30.1 L RDW 16.9 H Plt Count 208 MPV 9.1 Immature Gran % 0.8 Neutrophils % 74.0 Lymphocytes % 19.1 Monocytes % 5.9 Eosinophils % 0.0 Basophils % 0.2 Nucleated RBC % 0.0 Absolute Neutrophils 3.76 Absolute Lymphocytes 0.97 L Absolute Monocytes 0.30 Absolute Eosinophils 0.00 Absolute Basophils 0.01 VBG Lactate Sodium 144 Potassium 3.7 Chloride 112 H Carbon Dioxide 24.6 Anion Gap 7.4 BUN 7 Creatinine 0.7 Est GFR (CKD-EPI 2020) 97.72 Glucose 209 H Calcium 8.1 L Magnesium 1.7 L Total Bilirubin 0.2 AST 20 ALT 9 L Alkaline Phosphatase 85 C-Reactive Protein 1.62 H Total Protein 5.9 L Albumin 1.7 L Procalcitonin Stool Campylobacter PCR Stool Salmonella PCR Stool Shigella PCR Shiga Toxin (PCR) 02/21/23 06:52 WBC RBC Hgb Hct MCV MCH MCHC RDW Plt Count MPV Immature Gran % Neutrophils % Lymphocytes % Monocytes % Eosinophils % Basophils % Nucleated RBC % Absolute Neutrophils Absolute Lymphocytes Absolute Monocytes Absolute Eosinophils Absolute Basophils VBG Lactate 2.3 H* Sodium Potassium Chloride Carbon Dioxide Anion Gap BUN Creatinine Est GFR (CKD-EPI 2020) Glucose Calcium Magnesium Total Bilirubin AST ALT Alkaline Phosphatase C-Reactive Protein Total Protein Albumin Procalcitonin Stool Campylobacter PCR Stool Salmonella PCR Stool Shigella PCR Shiga Toxin (PCR) Time Spent with Patient Time Spent with Patient: 35-49 minutes Time was spent: preparing to see the patient(eg.review tests), obtaining and/or reviewing separately otained hiistory, ordering medications,tests, procedures, indepentently interpreting results and counseling the patient
[2023-02-21] MEDS: Insulin Aspart 300 UNITS/3 ML PEN SC ×3 (09:43→15:54)
[2023-02-21] MEDS: Lidocaine 5% Patch 1 PATCH TP (09:43)
[2023-02-21] MEDS: Insulin NPH-Human 300 UNITS/3 ML PEN 20 UNIT SC (09:44)
[2023-02-21] MEDS: Enoxaparin 40 MG/0.4 ML SYR SC (09:45)
[2023-02-21] MEDS: lamoTRIgine 25 MG TAB 50 MG PO (09:45)
[2023-02-21] MEDS: Calcium Carbonate *TUMS* 500 MG CHEW PO ×2 (09:45→15:52)
[2023-02-21] MEDS: Magnesium Oxide 400 MG TAB 800 MG PO ×2 (09:46→17:27)
[2023-02-21] MEDS: predniSONE 20 MG TAB 40 MG PO (09:46)
[2023-02-21] MEDS: Cetirizine 10 MG TAB PO (09:47)
[2023-02-21] MEDS: buPROPion-XL 150 MG TABCR PO (09:47)
[2023-02-21] MEDS: Fluticasone NASAL SPRAY 16 GM BTL NS ×2 (09:47→19:39)
[2023-02-21] MEDS: LORazepam 0.5 MG TAB PO ×2 (09:48→19:38)
[2023-02-21] MEDS: Diclofenac 1% Gel 100 GM TUBE TP ×2 (09:48→19:39)
[2023-02-21] MEDS: Gabapentin 600 MG TAB PO ×2 (09:48→19:39)
[2023-02-21] MEDS: Omeprazole 20 MG CAPCR PO (09:48)
[2023-02-21] MEDS: QUEtiapine 100 MG TAB PO ×2 (09:48→19:38)
[2023-02-21] MEDS: Normal Saline Flush 10 ML SYR IVP (09:49)
[2023-02-21] MEDS: Acetaminophen 500 MG TAB PO ×2 (09:49→19:39)
[2023-02-21] MEDS: Carbidopa 25/Levodopa 100 TAB PO ×4 (09:49→19:39)
[2023-02-21] MEDS: traZODone 50 MG TAB PO ×2 (09:49→19:38)
[2023-02-21] MEDS: Aspirin E.C. 81 MG TABEC PO (09:49)
[2023-02-21 11:27] LABS: Vancomycin, Trough 23.6 ug/mL (10.0-20.0)
[2023-02-21] MEDS: Simethicone 80 MG CHEW 160 MG PO (11:49)
[2023-02-21 12:17] VITALS: BP 135/81; PULSE 85; RESP 19; TEMP 35.7; O2SAT 97
[2023-02-21 12:56] LABS: Bilirubin Negative (Negative); Blood Moderate (Negative); Glucose Negative (Negative); Ketones Negative (Negative); Leukocyte Esterase Moderate (Negative); Nitrite Negative (Negative); Urobilinogen 0.2 mg/dL (Up to 0.2); pH 6.5 (5-8)
[2023-02-21 12:59] LABS: Clarity Sl Cloudy (Clear)
[2023-02-21 13:30] LABS: Epithelial Cells Few HPF (Negative); WBC >50 HPF (0-5)
[2023-02-21 13:31] LABS: Bacteria Rare HPF (Negative); C & S Indicated? Yes; Casts Negative LPF (Negative); Crystals Negative HPF (Negative); Mucus Negative (Negative); Other Cells Few Renal (Negative)
[2023-02-21 15:47] VITALS: BP 111/74; PULSE 87; RESP 18; TEMP 36.4; O2SAT 97
[2023-02-21] MEDS: QUEtiapine 50 MG TAB PO (15:52)
--- NOTE | 2023-02-21 16:39 | PHA.REVIEW2 ---
Pharmacy Admission Review - Admission Clinical Review (Last Reviewed 02/19/23 @ 22:06 by Elfego Chino DO) Diarrhea (Acute) Bacteremia (Acute) UTI (urinary tract infection) (Acute) naproxen [From Aleve] Allergy (Unknown, Unverified 12/24/22 13:04) Itching Penicillins Allergy (Unknown, Unverified 12/24/22 13:04) Itching propoxyphene Allergy (Unknown, Unverified 12/24/22 13:04) Itching Sulfa (Sulfonamide Antibiotics) Allergy (Unknown, Unverified 12/24/22 13:04) Itching methadone Allergy (Verified 12/24/22 13:04) Resuscitation Status Full Code Height 5 ft 6 in Weight 72.802 kg - Comments Comments/Follow Ups: Urine-gram positive and negative 10-50K colonies from 02/19 culture, Previous blood cultures from 02/18 show Staph bacteremia (not aureus). Repeat urine and blood cultures pending. On Vanco/Aztreonam, Afebrile, WBC 5.08. Vanco trough elevated, dose adjusted - Renal Dosing Renal Dosing: BUN 7 mg/dL (7-18) 02/21/23 06:52 Creatinine 0.7 mg/dL (0.55-1.02) 02/21/23 06:52 CrCl~59.58ml/min Medications needing adjustments: Reviewed (Aztreonam dosing 1gram Q8h is appropriate) - Anticoagulation Anticoagulation: Hgb 10.1 g/dL (11.2-15.7) L 02/21/23 06:52 Hct 33.6 % (36.0-46.0) L 02/21/23 06:52 Plt Count 208 10^3/uL (130-400) 02/21/23 06:52 Creatinine 0.7 mg/dL (0.55-1.02) 02/21/23 06:52 DVT Prophylaxis: Reviewed Medications: Enoxaparin - Opiate Usage Evaluate Pain Scale/Pains Meds: Reviewed (Morphine IVP ordered, but ON HOLD) Scheduled Bowel Reg ordered if on Opiates?: No (prn) - Relevant Labs Sodium 144 mmol/L (136-145) 02/21/23 06:52 Potassium 3.7 mmol/L (3.5-5.1) 02/21/23 06:52 Chloride 112 mmol/L (98-107) H 02/21/23 06:52 Magnesium 1.7 mg/dL (1.8-2.4) L 02/21/23 06:52 C-Reactive Protein 1.62 mg/dL (0.0-0.3) H 02/21/23 06:52 Electrolytes, C-Reactive P, ESR: Reviewed (C-reactive improving, Lactate elevated 2.3, on MagOx, Prcal 4.2) - DM Control DM Control: Glucose 209 mg/dL (74-106) H 02/21/23 06:52 Finger Stick Blood Glucose 150 Finger Stick Blood Glucose 150 Finger Stick Blood Glucose 150 Finger Stick Blood Glucose 229 Finger Stick Blood Glucose 229 Finger Stick Blood Glucose 229 Finger Stick Blood Glucose 203 DM Control: Reviewed (NPH 20units daily, Novolog scale) - Cardiac Review Cardiac Review: Troponin I < 50 ng/L (<or=60) 02/20/23 03:30 - Qtc Review QTc: Reviewed (QTC 445) - IV to PO Switch IV Medications: Reviewed (Compazine) Antibiotic Activity - Pharmacy Antibiotic Review Pharmacy Antibiotic Activity: C/S review (Previous Staph bacteremia, repeat urine and blood pending, elevated Procal 4.2) - Antibiotic Information Antibiotic Review Info: Vanco/Aztreonam empiric for Blood and urine cultures pending (previously Staph Bacteremia)
--- NOTE | 2023-02-21 16:43 | CMPROGNOTE_ITS ---
Date of service: 02/21/23 Time of Service: 16:43 Care Management Progress Note Progress Note Text Progress Note Text: S/O: Ginger was sitting up in bed when CM met with her. 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 CM discussed her discharge plan for this admission, which will be for her to return to the [facility] once she is medically cleared. She stated that she would like to stay inpatient for the rest of the 30 days until she moves to [place], but CM informed her that inpatient stays are only justified while there is an acute medical need. Per report, she remains on IV abx for bacteremia. CM will continue to follow. A: Ginger is a 62 year old female admitted to [facility] on 02/19/23 for bacteremia. P: Anticipate Ginger will return home once medically cleared. CM will coordinate her return to the [facility] via EMS, likely [facility]. She will follow up with facility providers and her discharge plan of care. CM will continue to follow.
--- NOTE | 2023-02-21 17:21 | CHAPLAIN ---
Ginger talked about her planned move to [place], [place] and is looking forward to being closer to family members. As I usually do, I read to Ginger from the Bible. We are now reading in Acts.
[2023-02-21] MEDS: VANCOMYCIN/WATER (PEG) 750 MG/150 ML BAG 150 MG IVPB (19:39)
[2023-02-21] MEDS: Atorvastatin 20 MG TAB PO (19:39)
[2023-02-21 19:50] VITALS: BP 149/78; PULSE 87; RESP 18; TEMP 36; O2SAT 98
[2023-02-21] MEDS: Mirtazapine 15 MG TAB PO (21:07)
[2023-02-21] MEDS: rOPINIRole 0.5 MG TAB PO (21:07)
[2023-02-21 22:18] VITALS: BP 127/76; PULSE 83; RESP 20; TEMP 36.3; O2SAT 98
[2023-02-22] MEDS: traMADol 50 MG TAB PO ×2 (05:17→11:15)
[2023-02-22] MEDS: Levothyroxine 100 MCG TAB PO (05:17)
[2023-02-22 05:59] VITALS: BP 126/79; PULSE 82; RESP 18; TEMP 36.9; O2SAT 96
[2023-02-22] MEDS: Omeprazole 20 MG CAPCR PO (07:23)
[2023-02-22] MEDS: lamoTRIgine 25 MG TAB 50 MG PO (07:23)
[2023-02-22] MEDS: Gabapentin 600 MG TAB PO (07:23)
[2023-02-22] MEDS: traZODone 50 MG TAB PO (07:24)
[2023-02-22] MEDS: Cetirizine 10 MG TAB PO (07:24)
[2023-02-22] MEDS: Aspirin E.C. 81 MG TABEC PO (07:24)
[2023-02-22] MEDS: predniSONE 20 MG TAB 40 MG PO (07:24)
[2023-02-22] MEDS: QUEtiapine 100 MG TAB PO (07:24)
[2023-02-22] MEDS: Acetaminophen 500 MG TAB PO (07:24)
[2023-02-22] MEDS: Carbidopa 25/Levodopa 100 TAB PO ×2 (07:24→11:15)
[2023-02-22] MEDS: LORazepam 0.5 MG TAB PO (07:24)
[2023-02-22] MEDS: buPROPion-XL 150 MG TABCR PO (07:25)
[2023-02-22] MEDS: Lidocaine 5% Patch 1 PATCH TP (07:25)
[2023-02-22] MEDS: Enoxaparin 40 MG/0.4 ML SYR SC (07:25)
[2023-02-22] MEDS: VANCOMYCIN/WATER (PEG) 750 MG/150 ML BAG 150 MG IVPB (07:26)
[2023-02-22] MEDS: Insulin NPH-Human 300 UNITS/3 ML PEN 20 UNIT SC (07:35)
[2023-02-22] MEDS: Diclofenac 1% Gel 100 GM TUBE TP (07:36)
[2023-02-22] MEDS: Fluticasone NASAL SPRAY 16 GM BTL NS (07:36)
[2023-02-22] MEDS: Magnesium Oxide 400 MG TAB 800 MG PO (07:45)
--- NOTE | 2023-02-22 09:19 | NUR.NOTE ---
nursing staff educated about importance of monitoring blood sugars and how there are no available strawberry ensures in the cafeteria at this time.
[2023-02-22 11:32] LABS: Abs Immature Grans 0.04 10^3/uL (0.0-0.06); Absolute Basophil Count 0.01 10^3/uL (0.0-0.2); Absolute Eosinophil Count 0.01 10^3/uL (0.0-0.7); Absolute Lymphocyte Count 1.49 10^3/uL (1.2-3.4); Absolute Monocyte Count 0.19 10^3/uL (0.1-0.8); Absolute Neutrophil Count 6.08 10^3/uL (1.2-6.7); Basophils % 0.1; Eosinophils % 0.1; HGB 11.1 g/dL (11.2-15.7); Immature Grans % 0.5; Lymphocytes % 19.1; MCH 27.8 pg (27.0-33.0); MCV 93 fL (80-95); MPV 9.2 fL (8.0-11.0); Monocytes % 2.4; Neutrophils % 77.8; Platelet Count 211 10^3/uL (130-400); RDW 16.9 % (11.7-14.6); RDW-SD 56.4 fL; WBC 7.82 10^3/uL (4.4-10.8)
[2023-02-22 11:41] VITALS: BP 128/72; PULSE 82; RESP 16; TEMP 36.2; O2SAT 98
[2023-02-22 11:53] LABS: AST 22 U/L (15-37); Alkaline Phosphatase 74 U/L (46-116); Anion Gap 5.6 mmol/L (3-11); BUN 11 mg/dL (7-18); Bilirubin, Total 0.2 mg/dL (0.2-1.0); CO2 26.4 mmol/L (21.0-32.0); CREATININE 0.7 mg/dL (0.55-1.02); Calcium 8.8 mg/dL (8.5-10.1); Chloride 108 mmol/L (98-107); Estimated GFR 97.72 (mL/min/1.73m2); Glucose 117 mg/dL (74-106); Potassium 4.2 mmol/L (3.5-5.1); Sodium 140 mmol/L (136-145); Total Protein 6.3 g/dL (6.4-8.2)
[2023-02-22 11:55] LABS: ALT < 6 U/L (14-59)
[2023-02-22 12:12] LABS: Procalcitonin 1.9 ng/mL
--- NOTE | 2023-02-22 12:42 | DSE_ITS ---
Date of service: 02/22/23 Time of Service: 12:42 DS: Diagnosis Discharge Diagnosis (1) Diarrhea: Status: Acute (2) Bacteremia: Status: Acute (3) UTI (urinary tract infection): Status: Acute (4) Diabetes mellitus type 2, insulin dependent: Status: Acute (5) Bipolar 1 disorder: Status: Chronic (6) Hemiparesis affecting right side as late effect of cerebrovascular accident: Status: Chronic Discharge Plan Disposition Patient Disposition: Swing Bed(Skilled,SB1) Condition: Stable Discharge Details Reason For Visit: Bacteremia likely due to UTI Admit Date/Time: 02/19/23 23:43 Admit Provider: Abhishek Barbosa Attending Provider: Abhishek Barbosa Primary Care Provider: Agueda Bingham Hospital Course Hospital Course: This is a 62-year-old female patient who resides at the [facility] history of CVA with right-sided hemiparesis, diabetes mellitus type 2 insulin-dependent indwelling Martinez catheter with frequent UTIs bipolar disorder who presented to the emergency department after being referred here due to a positive blood culture in 1 tube that grew gram-positive cocci. She apparently illicitly been seen in the emergency department for abdominal pain and chronic diarrhea. She is awaiting a colonoscopy that is scheduled in March. On evaluation in the emergency department her urine did reflex for culture and it was suspected that it was consistent with blood cultures so she was started on vancomycin and aztreonam while waiting for final culture reports. Clinically she remained afebrile and at her baseline. Repeat blood cultures are showing no growth. The original 1 tube grew staph epidermidis, all other cultures remained with no growth urine did have mixed gram-positive gram negative irving but less than 50,000 colony. Continued to have some chronic diarrhea but all stools cultures were negative. Her Pro-Gustavo which was elevated on admission at 4.2 is trending downward and is 1.9. Lactic acid remained elevated despite broad-spectrum antibiotics and IV hydration. She was started on a prednisone burst. She has been eating and drinking well vital signs remained stable she has had no fever no white count. Martinez catheter was changed out on 02/20. As cultures are negative and clinically improved and at her baseline will discharge home to complete 3 more days with levofloxacin 750 daily and prednisone 40 mg daily to complete a 5-day burst. Discharge discussed with Dr. Jack and she is being transported by ambulance back to the [facility]. Home Meds and New Rx's Prescriptions: New levofloxacin 750 mg tablet 750 mg PO DAILY Qty: 3 0RF prednisone 20 mg tablet 40 mg PO DAILY Qty: 6 0RF Continued metformin 500 mg tablet 1,000 mg PO BID lactase [Lactaid] 3,000 unit tablet 9,000 unit PO TID Rx Instructions: administer with meals and/or snacks simethicone 180 mg capsule 180 mg PO TID PRN gabapentin 600 mg tablet 600 mg PO BID quetiapine 100 mg tablet 100 mg PO TID Patient Comments: 100 mg BID, 50 mg daily at 2pm trazodone 50 mg tablet 50 mg PO BID lidocaine 5 % adhesive patch,medicated 1 patch topical Q24H Qty: 0 0RF Rx Instructions: 01/19/23 4% patch per med req with [facility] med list. -hb docusate sodium [Colace] 100 mg capsule 200 mg PO .BID, PRN Orajel 3X Mouth Sores 20-0.1-0.15 % gel 1 applic mucous membrane QID PRN Qty: 5.1 0RF glycerin (adult) [Fleet Glycerin (Adult)] Suppository 1 supp [place] DAILY Qty: 0 0RF tramadol 50 mg Tablet 50 mg PO Q4H PRN PRNQty: 0 0RF Rx Instructions: per [facility] paperwork script stopped 01/31/23 atorvastatin 20 mg Tablet 20 mg PO QPM Qty: 0 0RF lactase [Lactaid] 3,000 unit Tablet 3,000 unit PO ONCE PRN Rx Instructions: administer with meals and/or snacks multivitamin Tablet 1 tab PO DAILY Rx Instructions: Multivit with beta carotene and Iron calcium carbonate [Tums] 200 mg calcium (500 mg) Tablet,Chewable 500 mg PO Q4H PRN PRN (Reason: Dyspepsia) calcium carbonate 200 mg calcium (500 mg) Tablet,Chewable 500 mg PO Q4H PRN PRN (Reason: dyspepsia) Qty: 0 0RF quetiapine 50 mg Tablet 50 mg PO DAILY@1400 Qty: 0 0RF mirtazapine 15 mg Tablet 15 mg PO QHS lamotrigine [Lamictal] 25 mg Tablet 50 mg PO DAILY Qty: 1 0RF polyethylene glycol 3350 [Miralax] 17 gram/dose Powder 17 g PO DAILY PRN aspirin 81 mg Tablet,Delayed Release (Dr/Ec) 81 mg PO DAILY bupropion HCl 150 mg tablet extended release 24 hr 150 mg PO QAM cetirizine 10 mg Tablet 10 mg PO QAM linaclotide 145 mcg Capsule 145 mcg PO DAILY acetaminophen 500 mg Tablet 500 mg PO BID diclofenac sodium 1 % Gel 1 applic TOPICAL BID fluticasone propionate [Flonase Allergy Relief] 50 mcg/actuation Mantador,Suspension 1 spray INTRANASAL BID Trulicity 1.5 mg/0.5 mL pen injector 1 device SUBCUT DIRECTED Rx Instructions: weekly levothyroxine 100 mcg Tablet 100 mcg PO DAILY omeprazole 20 mg Capsule,Delayed Release(Dr/Ec) 20 mg PO DAILY carbidopa-levodopa 25-100 mg Tablet 1 tab PO QID B-complex with vitamin C Capsule 1 cap PO DAILY Centrum Complete 18-400 mg-mcg Tablet 1 tab PO DAILY ropinirole 0.5 mg Tablet 0.5 mg PO QHS Rx Instructions: administer 1-3 hours before bedtime lorazepam 0.5 mg Tablet 0.5 mg PO BID Mckayla Protect (zinc oxide) 12 % Cream 1 applic topical PRN PRNQty: 57 0RF albuterol sulfate [Ventolin HFA] 90 mcg/actuation Hfa Aerosol Inhaler 2 puff INHALATION Q4H PRN PRNQty: 0 0RF magnesium oxide 400 mg magnesium Tablet 800 mg PO BIDWMEAL Qty: 0 0RF cefpodoxime 200 mg tablet 200 mg PO Q12H Qty: 14 0RF Rx Instructions: must administer with a meal/food Discharge Instructions Instructions: Catheter-associated Urinary Tract Infection (DC) Stand Alone Forms: Nursing Discharge Form Referrals: Agueda Bingham [Primary Care Provider] - Activity:: Activity as Tolerated Equipment/Supplies:: No Equipment Needed Diet:: As Tolerated Discharge Orders Discharge Orders: Discharge Order (Routine); Ordered 02/22/23 Ordered By: Amber Yates DS: Summary Time Spent with Patient providing and/or coordinating discharge services: Greater than 30 minutes Status at Discharge Functional status at discharge: bed bound Overall status at discharge: patient is back to baseline Mental Status: mental status grossly normal Speech and Movement: other (baseline) Mood: congruent mood Affect: normal affect Exam Const General: cooperative and no acute distress Nutritional Appearance: average body habitus Orientation: alert, awake and oriented x3 Chest Chest: normal inspection of the chest Resp Effort & Inspection: normal respiratory effort Cardio Rate: regular rate Rhythm: regular rhythm GI Inspection: normal to inspection Skin General skin exam: no rashes or lesions noted Neuro General: patient alert, patient awake and patient oriented x3 Extrem General: other (contracted upper extremities) Psych Mental Status: mental status grossly normal Speech and Movement: other (baseline) Mood: congruent mood Affect: normal affect DS: Data Vitals/I&O Vitals and I&O: Vital Signs Temperature 36.2 C L 02/22/23 11:41 Temperature Source Tympanic 02/22/23 11:41 Pulse 82 02/22/23 11:41 Pulse Rhythm Regular 02/21/23 23:16 Pulse 76 02/20/23 00:20 Respiratory Rate 16 02/22/23 11:41 Respiratory Effort Normal, Non-Labored 02/22/23 11:58 Respiratory Depth Normal 02/22/23 11:58 Respiratory Pattern Normal 02/22/23 11:58 Blood Pressure 128/72 02/22/23 11:41 Blood Pressure Mean 61 02/20/23 00:15 Blood Pressure Position Supine 02/19/23 20:44 Pulse Oximetry 98 02/22/23 11:41 Oxygen Delivery Method Room Air 02/22/23 11:41 Oxygen Flow Rate 0 02/22/23 11:41 Pain Level 2 02/22/23 11:41 Comment RN notified of pain. 02/21/23 15:47 Intake & Output 02/21/23 02/22/23 02/22/23 23:59 11:59 23:59 Intake Total 2390 / 3090 100 / 100 Output Total 2200 / 3675 250 / 250 Balance 190 / -585 -150 / -150 Intake: IV 1350 / 1700 100 / 100 Oral 1040 / 1390 Output: Urine 2200 / 3675 250 / 250 Other: Urine Color Pale Yellow Urine Appearance Clear Clear Comment Purewick 250 from catheter, grossly incon of urine d/t purewick not working properly Stool Size Small Small Stool Characteristics Mucoid Mucoid Data Completed and Pending Labs on day of discharge: Labs from last 24 hours 02/22/23 02/22/23 02/22/23 11:25 11:25 11:25 WBC 7.82 RBC 4.00 Hgb 11.1 L Hct 37.0 MCV 93 MCH 27.8 MCHC 30.0 L RDW 16.9 H Plt Count 211 MPV 9.2 Immature Gran % 0.5 Neutrophils % 77.8 Lymphocytes % 19.1 Monocytes % 2.4 Eosinophils % 0.1 Basophils % 0.1 Nucleated RBC % 0.0 Absolute Neutrophils 6.08 Absolute Lymphocytes 1.49 Absolute Monocytes 0.19 Absolute Eosinophils 0.01 Absolute Basophils 0.01 Sodium 140 Potassium 4.2 Chloride 108 H Carbon Dioxide 26.4 Anion Gap 5.6 BUN 11 Creatinine 0.7 Est GFR (CKD-EPI 2020) 97.72 Glucose 117 H Calcium 8.8 Total Bilirubin 0.2 AST 22 ALT < 6 L Alkaline Phosphatase 74 Total Protein 6.3 L Albumin 2.0 L Procalcitonin 1.9 Urine Color Urine Clarity Urine pH Ur Specific [place] Urine Protein Urine Ketones Urine Blood Urine Nitrite Urine Bilirubin Urine Urobilinogen Ur Leukocyte Esterase Urine RBC Urine WBC Ur Epithelial Cells Urine Crystals Urine Bacteria Urine Casts Urine Mucus Urine Other Ur Culture Indicated? Urine Glucose Stool Description Stool Ova & Parasites 02/21/23 02/19/23 12:20 22:08 WBC RBC Hgb Hct MCV MCH MCHC RDW Plt Count MPV Immature Gran % Neutrophils % Lymphocytes % Monocytes % Eosinophils % Basophils % Nucleated RBC % Absolute Neutrophils Absolute Lymphocytes Absolute Monocytes Absolute Eosinophils Absolute Basophils Sodium Potassium Chloride Carbon Dioxide Anion Gap BUN Creatinine Est GFR (CKD-EPI 2020) Glucose Calcium Total Bilirubin AST ALT Alkaline Phosphatase Total Protein Albumin Procalcitonin Urine Color Yellow Urine Clarity Sl Cloudy Urine pH 6.5 Ur Specific [place] 1.010 Urine Protein Negative Urine Ketones Negative Urine Blood Moderate H Urine Nitrite Negative Urine Bilirubin Negative Urine Urobilinogen 0.2 Ur Leukocyte Esterase Moderate H Urine RBC 10-20 H Urine WBC >50 H Ur Epithelial Cells Few Urine Crystals Negative Urine Bacteria Rare Urine Casts Negative Urine Mucus Negative Urine Other Few Renal Ur Culture Indicated? Yes Urine Glucose Negative Stool Description Not Applicable Stool Ova & Parasites SEE BELOW 02/21/23 11:45 Blood Blood Culture - Pending 02/21/23 11:35 Blood Blood Culture - Pending Preliminary micro results at discharge 02/21/23 12:20 Urine Culture - Preliminary Urine - Clean Catch 02/19/23 21:05 Blood Culture - Preliminary Blood NO GROWTH 48 HOURS 02/19/23 21:05 Blood Culture - Preliminary Blood NO GROWTH 48 HOURS 02/21/23 11:45 Blood Culture - Pending Blood 02/21/23 11:35 Blood Culture - Pending Blood [facility] All Active Problems (Updated 02/22/23 @ 10:17 by Amber Yates NP) Discharge planning issues (Acute) Diabetes mellitus type 2, insulin dependent (Acute) General weakness (Acute) Diarrhea (Acute) Bacteremia (Acute) UTI (urinary tract infection) (Acute) Complicated UTI (urinary tract infection) (Acute) Hypoalbuminemia (Acute) Hyperglycemia (Acute) High anion gap metabolic acidosis (Acute) Anemia (Chronic) Advanced care planning/counseling discussion (Acute) Gallstones (Acute) Tardive dyskinesia (Acute) Parkinsonism (Acute) History of stroke (Acute) Bipolar 1 disorder (Chronic) Bipolar affective disorder, current episode depressed (Acute) rule out bipolar disorder reported by patient. Antiepileptics maybe preventing manic episode. Major depressive disorder, recurrent, severe with psychotic features (Acute) Current presentation is depression. She may have bipolar affective disorder. Ambulatory dysfunction (Chronic) Hemiparesis affecting right side as late effect of cerebrovascular accident (Chronic) Dysphagia as late effect of cerebrovascular accident (CVA) (Chronic) Dysarthria as late effect of cerebrovascular accident (CVA) (Acute) Medical History Abdominal bloating Abdominal pain Acute bronchitis Anxiety Aphasia as late effect of cerebrovascular accident Arthritis of left shoulder region Autoimmune disorder Bipolar 1 disorder Cholelithiasis with acute cholecystitis s/p cholecystostomy and stone extraction in 2014 ([facility]), tube now pulled. 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 insufficiency Chronic chest pain [employer] vasculitis Constipation Cough Diarrhea Diverticulosis Emphysematous pyelonephritis Hemiparesis affecting right side as late effect of cerebrovascular accident (CVA) Hepatitis C History of multiple cerebrovascular accidents (CVAs) Hydronephrosis of right kidney Hypertension Hypothyroidism IDDM (insulin dependent diabetes mellitus) Ileus Left rotator cuff tear Lumbar disc disease Microcytic anemia Neck pain Nephrolithiasis Neurogenic bladder Obesity (BMI 30.0-34.9) Palliative care encounter Pyelonephritis Pyuria due to bacterial urinary tract infection Staghorn calculus Static encephalopathy Steroid dependent Uterine mass likely a fibroid UTI (urinary tract infection) UTI (urinary tract infection) Surgical History Abnormal cholangiogram H/O cervical spine surgery H/O foot surgery H/O wrist surgery History of extraction of renal calculus 12/13/2018 - [facility] History of hip surgery right History of lumbosacral spine surgery S/P cystoscopy with ureteral stent placement [facility] 11/2018 Status post creation of urethral sling by suprapubic approach Family History Mother Stroke Social History Smoking/Tobacco Use Status: Former Tobacco Use Smoking risk assessment performed?: Yes Alcohol Intake: former Substance use type: former substance user and IV drugs [facility] Number of Children: 5 Education Level: elementary school Details: 6th grade, special ed, left school age 16. Current gender identity: female What is your relationship status?: Panel score (0-1 are the most socially isolated patients): 0 What type of physical activity do you participate in: none Do you feel safe at home: Yes Do you feel safe in your relationship?: Yes Time Spent with Patient Time Spent with Patient: 45-69 minutes Time was spent: preparing to see the patient(eg.review tests), obtaining and/or reviewing separately otained hiistory, ordering medications,tests, procedures, referring, communicating with other health neonatal intensive care unit nurse, indepentently interpreting results and care coordination
--- NOTE | 2023-02-22 16:25 | PDOC.CMDIS ---
Date of service: 02/22/23 Time of Service: 16:25 LACE Index Scoring Tool Questions: Length of Stay (in days): 3 Was the patient admitted via the E.D.?: Yes Comorbidities: Cerebrovascular Disease E.D. Visits: 5 Answers: Total Score: 11 Risk of Readmission: High Risk Care Management Discharge Plan Reason for Hospitalization: Bacteremia likely due to UTI Discharge Plan: Ginger will return to the [facility] via [facility], coordinated by this functional tester typewriters. Patient/Family Education Needs: Review discharge instructions, care needs upon discharge discuss Ask Me Three. Services Needed at Discharge: Senior Living Facility (Return to [facility]) and Transportation ([facility])
== END 2023-02-22 13:30 | disposition swing bed (61) | DRG 690 ==
LOC: ER 02-20 00:37 → MS 02-20 00:42
PROVIDERS: Internal Medicine; Nurse Practitioner Acute Care; Admitting Provider Family Medicine; Emergency Provider Student in an Organized Health Care Education/Training Program; PCP Family Medicine; Visit Provider Family Medicine
DX: N39.0 Urinary tract infection, site not specified; I69.351 Hemiplegia and hemiparesis following cerebral infarction affecting right dominant side; R78.81 Bacteremia; F33.3 Major depressive disorder, recurrent, severe with psychotic symptoms; E27.40 Unspecified adrenocortical insufficiency; G93.49 Other encephalopathy; E11.9 Type 2 diabetes mellitus without complications; Z79.4 Long term (current) use of insulin; Z79.84 Long term (current) use of oral hypoglycemic drugs; K52.9 Noninfective gastroenteritis and colitis, unspecified; E88.09 Other disorders of plasma-protein metabolism, not elsewhere classified; D64.9 Anemia, unspecified; G24.01 Drug induced subacute dyskinesia; G20 Parkinson's disease; I69.391 Dysphagia following cerebral infarction; R13.10 Dysphagia, unspecified; I69.322 Dysarthria following cerebral infarction; D89.89 Other specified disorders involving the immune mechanism, not elsewhere classified; F41.9 Anxiety disorder, unspecified; K59.00 Constipation, unspecified; I10 Essential (primary) hypertension; E03.9 Hypothyroidism, unspecified
CPT/HCPCS: 36415; 76770; 80048; 80053; 84145; 87040; 87329; 87493; 87505; 93308; 96365; 96367; 96368; 96375; 99285; J1650; 74177; 80202; 81003; 81015; 83605; 83735; 84484; 85025; 86140; 87086; 87177; 93005; 93010; 99223; 99233; 99239; J0131; J0612; J1720; J2270; J3480; J3490; J7512

== ENCOUNTER 2023-03-01 15:08 | Outpatient (REF) | payer MEDICAID, SELFPAY ==
[2023-03-01 17:25] LABS: Abs Immature Grans 0.04 10^3/uL (0.0-0.06); Absolute Basophil Count 0.02 10^3/uL (0.0-0.2); Absolute Eosinophil Count 0.12 10^3/uL (0.0-0.7); Absolute Lymphocyte Count 1.55 10^3/uL (1.2-3.4); Absolute Monocyte Count 0.47 10^3/uL (0.1-0.8); Absolute Neutrophil Count 3.03 10^3/uL (1.2-6.7); Basophils % 0.4; Eosinophils % 2.3; HCT 33.6 % (36.0-46.0); Immature Grans % 0.8; Lymphocytes % 29.6; MCH 27.9 pg (27.0-33.0); MCHC 29.8 % (32.0-36.0); MCV 94 fL (80-95); MPV 9.7 fL (8.0-11.0); Neutrophils % 57.9; Platelet Count 175 10^3/uL (130-400); RBC 3.58 10^6/uL (3.93-5.22); RDW-SD 62.5 fL; WBC 5.23 10^3/uL (4.4-10.8)
[2023-03-01 17:35] LABS: ALT 11 U/L (14-59); AST 24 U/L (15-37); Albumin 2.3 g/dL (3.4-5.0); Alkaline Phosphatase 78 U/L (46-116); Anion Gap 6.9 mmol/L (3-11); BUN 6 mg/dL (7-18); Bilirubin, Total 0.3 mg/dL (0.2-1.0); CO2 28.1 mmol/L (21.0-32.0); CREATININE 0.7 mg/dL (0.55-1.02); Calcium 8.2 mg/dL (8.5-10.1); Chloride 105 mmol/L (98-107); Estimated GFR 97.72 (mL/min/1.73m2); Glucose 121 mg/dL (74-106); Potassium 3.2 mmol/L (3.5-5.1); Sodium 140 mmol/L (136-145); Total Protein 5.7 g/dL (6.4-8.2)
== END 2023-03-01 15:09 | disposition home or self-care (01) ==
LOC: LBN 15:08
PROVIDERS: PCP Family Medicine; Visit Provider Nurse Practitioner Gerontology
DX: N39.0 Urinary tract infection, site not specified (principal); R78.81 Bacteremia; I10 Essential (primary) hypertension; D64.9 Anemia, unspecified
CPT/HCPCS: 80053; 85025

== ENCOUNTER 2023-03-05 20:19 | Outpatient (REF) | payer MEDICAID, SELFPAY ==
[2023-03-05 19:54] LABS: Abs Immature Grans 0.02 10^3/uL (0.0-0.06); Absolute Basophil Count 0.04 10^3/uL (0.0-0.2); Absolute Lymphocyte Count 1.78 10^3/uL (1.2-3.4); Absolute Monocyte Count 0.58 10^3/uL (0.1-0.8); Basophils % 0.6; Eosinophils % 1.5; HCT 40.5 % (36.0-46.0); HGB 11.9 g/dL (11.2-15.7); Immature Grans % 0.3; Lymphocytes % 26.5; MCH 28.1 pg (27.0-33.0); MCHC 29.4 % (32.0-36.0); MCV 96 fL (80-95); MPV 9.9 fL (8.0-11.0); Monocytes % 8.6; Neutrophils % 62.5; Platelet Count 273 10^3/uL (130-400); RBC 4.24 10^6/uL (3.93-5.22); RDW 18.6 % (11.7-14.6); RDW-SD 64.9 fL; WBC 6.72 10^3/uL (4.4-10.8)
[2023-03-05 20:32] LABS: ALT 17 U/L (14-59); AST 20 U/L (15-37); Albumin 2.7 g/dL (3.4-5.0); Alkaline Phosphatase 89 U/L (46-116); Anion Gap 9.7 mmol/L (3-11); BUN 8 mg/dL (7-18); Bilirubin, Total 0.3 mg/dL (0.2-1.0); CO2 28.3 mmol/L (21.0-32.0); CREATININE 0.7 mg/dL (0.55-1.02); Calcium 9.3 mg/dL (8.5-10.1); Chloride 107 mmol/L (98-107); Estimated GFR 97.72 (mL/min/1.73m2); Glucose 99 mg/dL (74-106); Potassium 3.7 mmol/L (3.5-5.1); Sodium 145 mmol/L (136-145); Total Protein 6.8 g/dL (6.4-8.2)
[2023-03-07 09:41] LABS: Iron 38 ug/dL (50-170); Total Iron Binding Capacity 169 ug/dL (250-450); Transferrin Sat 22 % (15-50)
== END 2023-03-05 20:20 | disposition home or self-care (01) ==
LOC: LBN 20:19
PROVIDERS: PCP Family Medicine; Visit Provider Nurse Practitioner Gerontology
DX: E87.6 Hypokalemia (principal); R78.81 Bacteremia; D64.9 Anemia, unspecified; I10 Essential (primary) hypertension; E11.9 Type 2 diabetes mellitus without complications
CPT/HCPCS: 80053; 83540; 83550; 85025

== ENCOUNTER 2023-03-07 22:06 | Outpatient (REF) | payer MEDICAID, SELFPAY ==
[2023-03-07 22:22] LABS: Bilirubin Negative (Negative); Blood Small (Negative); Clarity Cloudy (Clear); Glucose Negative (Negative); Ketones Negative (Negative); Leukocyte Esterase Large (Negative); Nitrite Negative (Negative); Urobilinogen 0.2 mg/dL (Up to 0.2); pH 5.5 (5-8)
[2023-03-07 22:34] LABS: Bacteria Many HPF (Negative); C & S Indicated? Yes; WBC >50 HPF (0-5)
== END 2023-03-07 22:07 | disposition home or self-care (01) ==
LOC: LBN 22:06
PROVIDERS: PCP Family Medicine; Visit Provider Nurse Practitioner Gerontology
DX: N39.0 Urinary tract infection, site not specified (principal)
CPT/HCPCS: 81003; 81015; 87086

== ENCOUNTER 2023-03-09 00:51 | Outpatient (CLI) | payer MEDICAID, SELFPAY ==
--- NOTE | 2023-03-09 08:00 | DI.US_ITS ---
Exam(s) US RENAL EXAM: US RENAL CLINICAL HISTORY: ? hydronephrosis,kidney stones, n20.9 TECHNIQUE: Ultrasound of both kidneys performed using standard protocol. COMPARISON: Prior ultrasound 02/20/2023 FINDINGS: RIGHT KIDNEY: Measures 10.2 cm in length. No cysts evident. Normal cortical thickness and corticomedullary differen tiation .No solid masses No intrarenal calculi nor hydronephrosis. LEFT KIDNEY: Measures 11.4 cm in length. No cysts evident. Normal cortical thickness and corticomedullary differe ntiaion. No solids masses. No intrarenal calculi nor hydonephrosis. URINARY BLADDER: Bladder is collapsed around the Martinez catheter. IMPRESSION: 1. No significant ultrasound findings in the kidneys. No intrarenal calculi seen. No hydronephrosi s. 2. Urinary bladder is collapsed around the Martinez catheter. DATA REPOSITORY:
== END 2023-03-09 01:11 ==
LOC: DI 00:51
PROVIDERS: PCP Family Medicine; Visit Provider Urology
DX: N20.0 Calculus of kidney (principal); N32.89 Other specified disorders of bladder
CPT/HCPCS: 76770

== ENCOUNTER 2023-03-13 17:29 | Outpatient (REF) | payer MEDICAID, SELFPAY ==
[2023-03-13 17:52] LABS: Bilirubin Negative (Negative); Blood Trace-intact (Negative); Clarity Sl Cloudy (Clear); Glucose Negative (Negative); Ketones Negative (Negative); Leukocyte Esterase Large (Negative); Nitrite Negative (Negative); Urobilinogen 0.2 mg/dL (Up to 0.2); pH 5.5 (5-8)
[2023-03-13 17:58] LABS: Abs Immature Grans 0.01 10^3/uL (0.0-0.06); Absolute Basophil Count 0.03 10^3/uL (0.0-0.2); Absolute Eosinophil Count 0.14 10^3/uL (0.0-0.7); Absolute Lymphocyte Count 2.67 10^3/uL (1.2-3.4); Absolute Monocyte Count 0.45 10^3/uL (0.1-0.8); Absolute Neutrophil Count 3.56 10^3/uL (1.2-6.7); Basophils % 0.4; HCT 36.9 % (36.0-46.0); Immature Grans % 0.1; Lymphocytes % 38.9; MCH 28.3 pg (27.0-33.0); MCHC 29.8 % (32.0-36.0); MCV 95 fL (80-95); MPV 10.3 fL (8.0-11.0); Monocytes % 6.6; Platelet Count 260 10^3/uL (130-400); RBC 3.89 10^6/uL (3.93-5.22); RDW 18.4 % (11.7-14.6); RDW-SD 63.8 fL; WBC 6.86 10^3/uL (4.4-10.8)
[2023-03-13 18:01] LABS: Bacteria Many HPF (Negative); C & S Indicated? C&S Done As Ordered; Casts Negative LPF (Negative); Crystals Negative HPF (Negative); Epithelial Cells Rare HPF (Negative); Mucus Trace (Negative)
[2023-03-13 18:02] LABS: WBC >50 HPF (0-5)
[2023-03-13 18:19] LABS: ALT 15 U/L (14-59); AST 30 U/L (15-37); Albumin 2.6 g/dL (3.4-5.0); Alkaline Phosphatase 93 U/L (46-116); Anion Gap 10.3 mmol/L (3-11); BUN 12 mg/dL (7-18); Bilirubin, Total 0.3 mg/dL (0.2-1.0); CO2 27.7 mmol/L (21.0-32.0); CREATININE 0.7 mg/dL (0.55-1.02); Calcium 9.2 mg/dL (8.5-10.1); Chloride 108 mmol/L (98-107); Estimated GFR 97.72 (mL/min/1.73m2); Glucose 118 mg/dL (74-106); Magnesium 1.4 mg/dL (1.8-2.4); Potassium 4.7 mmol/L (3.5-5.1); Sodium 146 mmol/L (136-145); Total Protein 6.7 g/dL (6.4-8.2)
== END 2023-03-13 17:30 | disposition home or self-care (01) ==
LOC: LBN 17:29
PROVIDERS: PCP Family Medicine; Visit Provider Nurse Practitioner Gerontology
DX: N39.0 Urinary tract infection, site not specified (principal)
CPT/HCPCS: 80053; 87077; 81003; 81015; 83735; 85025; 87086; 87186

== ENCOUNTER 2023-04-11 16:31 | Outpatient (REF) | payer MEDICAID, SELFPAY ==
[2023-04-11 16:47] LABS: Abs Immature Grans 0.03 10^3/uL (0.0-0.06); Absolute Basophil Count 0.03 10^3/uL (0.0-0.2); Absolute Lymphocyte Count 2.21 10^3/uL (1.2-3.4); Absolute Monocyte Count 0.48 10^3/uL (0.1-0.8); Absolute Neutrophil Count 3.81 10^3/uL (1.2-6.7); Basophils % 0.5; Eosinophils % 1.5; HCT 37.3 % (36.0-46.0); HGB 11.4 g/dL (11.2-15.7); Immature Grans % 0.5; Lymphocytes % 33.2; MCHC 30.6 % (32.0-36.0); MCV 95 fL (80-95); Monocytes % 7.2; Neutrophils % 57.1; Platelet Count 276 10^3/uL (130-400); RBC 3.93 10^6/uL (3.93-5.22); RDW 16.4 % (11.7-14.6); RDW-SD 58.2 fL; WBC 6.66 10^3/uL (4.4-10.8)
[2023-04-11 17:32] LABS: Magnesium 1.3 mg/dL (1.8-2.4)
[2023-04-12 19:38] LABS: ALT 10 U/L (14-59); AST 20 U/L (15-37); Albumin 2.7 g/dL (3.4-5.0); Alkaline Phosphatase 81 U/L (46-116); Anion Gap 13.1 mmol/L (3-11); BUN 10 mg/dL (7-18); Bilirubin, Total 0.3 mg/dL (0.2-1.0); CO2 22.9 mmol/L (21.0-32.0); CREATININE 0.8 mg/dL (0.55-1.02); Calcium 8.7 mg/dL (8.5-10.1); Chloride 108 mmol/L (98-107); Estimated GFR 83.26 (mL/min/1.73m2); Glucose 158 mg/dL (74-106); Potassium 3.7 mmol/L (3.5-5.1); Sodium 144 mmol/L (136-145); Total Protein 6.7 g/dL (6.4-8.2)
== END 2023-04-11 16:32 | disposition home or self-care (01) ==
LOC: LBN 16:31
PROVIDERS: PCP Family Medicine; Visit Provider Nurse Practitioner Gerontology
DX: R30.0 Dysuria (principal)
CPT/HCPCS: 80053; 83735; 85025

== ENCOUNTER 2023-06-11 17:16 | Outpatient (REF) | payer MEDICAID, SELFPAY ==
[2023-06-11 19:47] LABS: Bilirubin Negative (Negative); Blood Moderate (Negative); Clarity Turbid (Clear); Glucose Negative (Negative); Ketones Negative (Negative); Leukocyte Esterase Moderate (Negative); Nitrite Negative (Negative); Urobilinogen 0.2 mg/dL (Up to 0.2)
[2023-06-11 19:54] LABS: HCT 36.6 % (36.0-46.0); HGB 11.5 g/dL (11.2-15.7); MCH 30.5 pg (27.0-33.0); MCHC 31.4 % (32.0-36.0); MCV 97 fL (80-95); MPV 10.9 fL (8.0-11.0); Platelet Count 210 10^3/uL (130-400); RBC 3.77 10^6/uL (3.93-5.22); RDW 13.9 % (11.7-14.6); RDW-SD 49.5 fL; WBC 5.55 10^3/uL (4.4-10.8)
[2023-06-11 20:06] LABS: ALT 18 U/L (14-59); AST 33 U/L (15-37); Albumin 2.7 g/dL (3.4-5.0); Alkaline Phosphatase 72 U/L (46-116); Anion Gap 12.1 mmol/L (3-11); BUN 10 mg/dL (7-18); Bilirubin, Total 0.2 mg/dL (0.2-1.0); CO2 25.9 mmol/L (21.0-32.0); CREATININE 0.8 mg/dL (0.55-1.02); Calcium 9.2 mg/dL (8.5-10.1); Chloride 104 mmol/L (98-107); Estimated GFR 82.74 (mL/min/1.73m2); Glucose 143 mg/dL (74-106); Potassium 4.3 mmol/L (3.5-5.1); Sodium 142 mmol/L (136-145); Total Protein 6.6 g/dL (6.4-8.2)
[2023-06-11 20:17] LABS: WBC >50 HPF (0-5)
[2023-06-11 20:18] LABS: C & S Indicated? C&S Done As Ordered
[2023-06-12 10:25] LABS: Magnesium 1.1 mg/dL (1.8-2.4)
== END 2023-06-11 17:17 | disposition home or self-care (01) ==
LOC: LBN 17:16
PROVIDERS: PCP Family Medicine; Visit Provider Nurse Practitioner Gerontology
DX: R68.89 Other general symptoms and signs (principal); A41.9 Sepsis, unspecified organism; E87.6 Hypokalemia; G89.4 Chronic pain syndrome
CPT/HCPCS: 80053; 85027; 87077; 81003; 81015; 83735; 87086; 87186

== ENCOUNTER 2023-12-11 14:34 | Emergency (ER) | payer MEDICAID, SELFPAY ==
[2023-12-11] VITALS (28 sets, daily range): BP systolic 115–123; BP diastolic 72–95; PULSE 80–88; RESP 9–18; TEMP 36.6; O2SAT 95
--- NOTE | 2023-12-11 14:30 | RT.EKG_ITS ---
APPROVED REPORT Exam: Resting ECG Reason for Exam: chest pain Patient Location: E HR:79 bpm ECG Measurements Heart Rate 79 AXIS OH 149 P 59 QRSd 89 QRS 13 QT 363 T 44 QTc 434 Conclusion Sinus rhythm...normal P axis, V-rate 60- 99 Ventricular premature complex...V complex w/ short R-R interval
--- NOTE | 2023-12-11 14:37 | W.ED.GENAD ---
Discharge Plan Disposition Patient Disposition: [facility]) Condition: Stable Discharge Details Clinical Impression: Chest pain Primary Care Provider: Agueda Bingham ED Provider: Chance Power [place] Meds and New Rx's Prescriptions: Continued metformin 500 mg tablet 500 mg PO BID lactase [Lactaid] 3,000 unit tablet 9,000 unit PO TID Rx Instructions: administer with meals and/or snacks simethicone 180 mg capsule 180 mg PO TID PRN gabapentin 600 mg tablet 600 mg PO BID quetiapine 100 mg tablet 100 mg PO TID trazodone 50 mg tablet 50 mg PO BID lidocaine 5 % adhesive patch,medicated 1 patch topical Q24H Qty: 0 0RF Rx Instructions: 01/19/23 4% patch per med req with [employer] [facility] list. -hb docusate sodium [Colace] 100 mg capsule 200 mg PO .BID, PRN Orajel 3X Mouth Sores 20-0.1-0.15 % gel 1 applic mucous membrane QID PRN Qty: 5.1 0RF atorvastatin 20 mg Tablet 20 mg PO QPM Qty: 0 0RF calcium carbonate 200 mg calcium (500 mg) Tablet,Chewable 500 mg PO Q4H PRN PRN (Reason: dyspepsia) Qty: 0 0RF mirtazapine 15 mg Tablet 15 mg PO QHS lamotrigine [Lamictal] 25 mg Tablet 50 mg PO DAILY Qty: 1 0RF acetaminophen 500 mg Tablet 500 mg PO BID fluticasone propionate [Flonase Allergy Relief] 50 mcg/actuation [place],Suspension 1 spray INTRANASAL BID Trulicity 1.5 mg/0.5 mL pen injector 1 device SUBCUT DIRECTED Patient Comments: 4.5mg Qweek on Fridays Rx Instructions: weekly levothyroxine 100 mcg Tablet 100 mcg PO DAILY Patient Comments: takes QHS carbidopa-levodopa 25-100 mg Tablet 1 tab PO QID B-complex with vitamin C Capsule 1 cap PO DAILY omeprazole 20 mg capsule,delayed release(DR/EC) 40 mg PO DAILY lorazepam 0.5 mg Tablet 0.5 mg PO BID albuterol sulfate [Ventolin HFA] 90 mcg/actuation Hfa Aerosol Inhaler 2 puff INHALATION Q4H PRN PRNQty: 0 0RF polyethylene glycol 3350 [Miralax] 17 gram powder in packet 17 g PO BID potassium chloride [Klor-Con M10] 10 mEq tablet,ER particles/crystals 10 meq PO DAILY bupropion HCl [Wellbutrin XL] 150 mg tablet extended release 24 hr 150 mg PO DAILY loratadine [Claritin] 10 mg tablet 10 mg PO DAILY magnesium gluconate 12.5 mg magne- sium (250 mg) tablet 250 mg PO BID ropinirole 0.5 mg tablet 0.5 mg PO QHS tamsulosin 0.4 mg capsule 0.4 mg PO DAILY ferrous gluconate 324 mg (37.5 mg iron) tablet 324 mg PO DAILY Myrbetriq 25 mg tablet extended release 24 hr 25 mg PO DAILY hexylresorcinol Lozenge 1 marivel mucous membrane BID diclofenac sodium 1 % gel 2 g topical BID Rx Instructions: apply to affected area/shoulder/neck and lower back BID tramadol 50 mg tablet 50 mg PO Q6H PRN triamcinolone acetonide 0.025 % cream 1 applic topical BID PRN Rx Instructions: apply topically to external vagina twice daily as needed tramadol 50 mg Tablet 50 mg PO HS Discharge Instructions Additional Instructions: Your blood work and CAT scan did not show any emergent concerning findings. You do have a fatty appearing liver. Follow-up with your primary care provider within 1 week. If you feel more ill, have high fevers or persistent vomiting return to the emergency department for reevaluation HPI General Mode of arrival: EMS. Date/Time Provider Initiated Documentation: 12/11/23 14:37. Limitations to Documentation: no limitations. Information obtained by: patient. History of Present Illness 63 year old F presents to the emergency department with the chief complaint of Chest pain, described as moderate, Quality is described as other (Pressure), and is localized to the chest. Patient reports no radiation. Patient started experiencing this day(s) (4) and it has been intermittent. No relieving factors improve symptom(s), No exacerbating factors reported . Patient notes shortness of breath; denies fever/chills. Patient did receive the following treatments prior to arrival, none Related Data Home Medications Medication Instructions Recorded Confirmed mirtazapine 15 mg tablet 15 mg PO QHS 03/26/20 12/11/23 lamotrigine 25 mg tablet (Lamictal) 50 mg (2 x 25 mg) PO DAILY #1 tab 04/08/20 12/11/23 metformin 500 mg tablet 500 mg PO BID 12/20/20 12/11/23 lactase 3,000 unit tablet (Lactaid) 9,000 unit PO TID 06/22/21 12/11/23 acetaminophen 500 mg tablet 500 mg PO BID 06/01/22 12/11/23 dulaglutide 1.5 mg/0.5 mL 1 device subcut DIRECTED 06/01/22 12/11/23 subcutaneous pen injector (Trulicity) fluticasone propionate 50 1 spray intranasal BID 06/01/22 12/11/23 mcg/actuation nasal spray,suspension (Flonase Allergy Relief) B-complex with vitamin C 1 cap PO DAILY 11/09/22 12/11/23 carbidopa 25 mg-levodopa 100 mg 1 tab PO QID 11/09/22 12/11/23 tablet levothyroxine 100 mcg tablet 100 mcg PO DAILY 11/09/22 12/11/23 atorvastatin 20 mg tablet 20 mg PO QPM #0 tabs 11/28/22 12/11/23 lorazepam 0.5 mg tablet 0.5 mg PO BID 12/24/22 12/11/23 albuterol sulfate 90 mcg/actuation 2 puff inhalation Q4H PRN PRN #0 01/01/23 12/11/23 aerosol inhaler (Ventolin HFA) grams benzocaine 20 %-menthol 0.1 %-zinc 1 applic mucous membrane QID PRN 01/19/23 12/11/23 chloride 0.15 % mucosal gel #5.1 grams (Orajel 3X Mouth Sores) docusate sodium 100 mg capsule 200 mg PO .BID, PRN 01/19/23 12/11/23 (Colace) gabapentin 600 mg tablet 600 mg PO BID 01/19/23 12/11/23 lidocaine 5 % topical patch 1 patch topical Q24H #0 ea 01/19/23 12/11/23 quetiapine 100 mg tablet 100 mg PO TID 01/19/23 12/11/23 simethicone 180 mg capsule 180 mg PO TID PRN 01/19/23 12/11/23 trazodone 50 mg tablet 50 mg PO BID 01/19/23 12/11/23 calcium carbonate 200 mg calcium 500 mg (2.5 x 200 mg calcium (500 02/12/23 12/11/23 (500 mg) chewable tablet mg)) PO Q4H PRN PRN dyspepsia #0 tabs omeprazole 20 mg capsule,delayed 40 mg PO DAILY 07/23/23 12/11/23 release bupropion HCl 150 mg 24 hr tablet, 150 mg PO DAILY 12/11/23 12/11/23 extended release (Wellbutrin XL) diclofenac sodium 1 % topical gel 2 g topical BID 12/11/23 12/11/23 ferrous gluconate 324 mg (37.5 mg 324 mg PO DAILY 12/11/23 12/11/23 iron) tablet hexylresorcinol 1 marivel mucous membrane BID 12/11/23 12/11/23 loratadine 10 mg tablet (Claritin) 10 mg PO DAILY 12/11/23 12/11/23 magnesium gluconate 12.5 mg 250 mg PO BID 12/11/23 12/11/23 magnesium (250 mg) tablet mirabegron 25 mg tablet,extended 25 mg PO DAILY 12/11/23 12/11/23 release 24 hr (Myrbetriq) polyethylene glycol 3350 17 gram 17 g PO BID 12/11/23 12/11/23 oral powder packet (Miralax) potassium chloride 10 mEq 10 meq PO DAILY 12/11/23 12/11/23 tablet,extended release(part/cryst) (Klor-Con M) ropinirole 0.5 mg tablet 0.5 mg PO QHS 12/11/23 12/11/23 tamsulosin 0.4 mg capsule 0.4 mg PO DAILY 12/11/23 12/11/23 tramadol 50 mg tablet 50 mg PO HS 12/11/23 12/11/23 tramadol 50 mg tablet 50 mg PO Q6H PRN 12/11/23 12/11/23 triamcinolone acetonide 0.025 % 1 applic topical BID PRN 12/11/23 12/11/23 topical cream Previous Rx's Medication Instructions Recorded lamotrigine 25 mg tablet (Lamictal) 50 mg (2 x 25 mg) PO DAILY #1 tab 04/08/20 atorvastatin 20 mg tablet 20 mg PO QPM #0 tabs 11/28/22 albuterol sulfate 90 mcg/actuation 2 puff inhalation Q4H PRN PRN #0 04/10/23 aerosol inhaler (Ventolin HFA) grams benzocaine 20 %-menthol 0.1 %-zinc 1 applic mucous membrane QID PRN 01/19/23 chloride 0.15 % mucosal gel #5.1 grams (Orajel 3X Mouth Sores) lidocaine 5 % topical patch 1 patch topical Q24H #0 ea 01/19/23 calcium carbonate 200 mg calcium 500 mg (2.5 x 200 mg calcium (500 02/12/23 (500 mg) chewable tablet mg)) PO Q4H PRN PRN dyspepsia #0 tabs Allergies Allergy/AdvReac Type Severity Reaction Status Date / Time naproxen [From Aleve] Allergy Unknown Itching Unverified 12/24/22 13:04 Penicillins Allergy Unknown Itching Unverified 12/24/22 13:04 propoxyphene Allergy Unknown Itching Unverified 12/24/22 13:04 Sulfa (Sulfonamide Allergy Unknown Itching Unverified 12/24/22 13:04 Antibiotics) methadone Allergy Verified 12/24/22 13:04 General RUBENS: 3 Review of Systems All systems reviewed & are unremarkable except as noted in HPI and below Constitutional Constitutional: Denies chills and Denies fever(s) Cardiovascular Cardiovascular: Reports chest pain and Denies dyspnea Respiratory Respiratory: Denies cough and Denies dyspnea Gastrointestinal Gastrointestinal: Denies abdominal pain, Denies nausea and Denies vomiting Musculoskeletal Musculoskeletal: Denies joint swelling Integumentary/Breasts Skin/Breast: Denies rash Exam Const General: no acute distress Orientation: alert HENTX Head: normal to inspection Ears: external ears normal General nose exam: external nose normal Mouth: moist mucous membranes Eyes General: appearance normal, both eyes and all related structures Neck Neck: normal visual inspection Resp Effort & Inspection: normal respiratory effort and able to speak in complete sentences Auscultation: clear to auscultation bilaterally Cardio Jugular venous pressure: no JVD Rate: regular rate Heart Sounds: no murmurs Skin General skin exam: no rashes or lesions noted Neuro General: patient alert and patient oriented x3 Extrem General: normal to inspection Psych Mental Status: mental status grossly normal Medical Decision Making 63-year-old female with a history of a prior CVA which is left her with right-sided hemiaplasia and is bedbound who resides at the [facility], also has a history of diabetes, chronic Martinez, bipolar, comes in with EMS with complaints of chest pressure for 4 days along with shortness of breath and fatigue. She denies any fevers, has had a dry cough for few weeks she says. She is alert and oriented x 4 on arrival speaking clearly in no distress. She has clear lungs, no JVD, no murmurs, soft abdomen. Will proceed with troponin, CBC, CMP, and obtain CTA of the chest to evaluate for PE and given her cough pneumonia. She has no tearing back pain and pulses are equal in the both extremities. So doubt dissection. Labs and imaging show no significant acute findings, does have hepatic steatosis. Patient stable, will obtain delta troponin. Delta troponin negative, patient sleeping and awakens easily to voice. Given reassuring workup, do not feel admission for further testing indicated, advised to follow-up with her primary care provider and return precautions given Differential Diagnosis Differential Diagnosis: ACS, chest wall pain Medical Records Medical records reviewed: Yes I reviewed the patient's medical records. Imaging Data Radiologic Study: Attestation: I personally reviewed and interpreted this imaging study as follows: Imaging: CT Scan Radiologist's impression: EXAM: CT CHEST PE CTA CLINICAL HISTORY: chest pain and dyspnea. TECHNIQUE: Imaging Protocol: Axial CT angiography was performed with multi-slice acquisition and multi-planar reconstructions as well as axial, coronal and sagittal MIP reconstructions. CONTRAST MATERIAL: Intravenous: Omnipaque 350 Contrast volume:100 ml COMPARISON: CT CT ABDOMEN PELVIS W from 02/08/[address] ABDOMEN PELVIS W from 02/19/2023 FINDINGS: Pulmonary Arteries: No evidence of filling defect to suggest pulmonary emboli. Tracheobronchial tree: No mucous plugging. Mediastinum and Audra: No dominant adenopathy or fluid collection. Pulmonary parenchyma: Evaluation somewhat limited due to respiratory motion and expiratory changes. No consolidation or dominant measurable mass. Pleura: No effusion or pneumothorax. Heart: The heart is mildly dilated. No coronary artery calcifications are seen. Aorta: Thoracic aorta non-dilated. No dissection. Upper abdomen: Liver markedly enlarged with severe hepatic steatosis. this has significantly progressed when compared with the prior exam. Bones: Unremarkable for age. Tubes, Catheters, and Lines: None Soft tissues: Unremarkable. IMPRESSION: No evidence of pulmonary embolism or other acute abnormality in the chest. Enlarged liver with severe hepatic steatosis is noted. Lab Data Lab results reviewed: Yes I reviewed the patient's lab results. ECG Data Attestation: I personally reviewed and interpreted this ECG (s) as follows: Prior ECG tracings: available for review Interpretation: sinus rate of 79 pr 149 no stemi Quality:SDOH Health Related Social Needs: No Data to Display PFSH All Active Problems (Updated 12/11/23 @ 17:37 by Chance Power MD) Chest pain (Acute) Diabetes mellitus type 2, insulin dependent (Acute) Diarrhea (Acute) Bacteremia (Acute) UTI (urinary tract infection) (Acute) Hypoalbuminemia (Acute) Hyperglycemia (Acute) High anion gap metabolic acidosis (Acute) Anemia (Chronic) Advanced care planning/counseling discussion (Acute) Gallstones (Acute) Tardive dyskinesia (Acute) Parkinsonism (Acute) Bipolar 1 disorder (Chronic) Bipolar affective disorder, current episode depressed (Acute) rule out bipolar disorder reported by patient. Antiepileptics maybe preventing manic episode. Major depressive disorder, recurrent, severe with psychotic features (Acute) Current presentation is depression. She may have bipolar affective disorder. Ambulatory dysfunction (Chronic) Hemiparesis affecting right side as late effect of cerebrovascular accident (Chronic) Dysphagia as late effect of cerebrovascular accident (CVA) (Chronic) Dysarthria as late effect of cerebrovascular accident (CVA) (Acute) Medical History Abdominal bloating Abdominal pain Acute bronchitis Anxiety Aphasia as late effect of cerebrovascular accident Arthritis of left shoulder region Autoimmune disorder Bipolar 1 disorder Cholelithiasis with acute cholecystitis s/p cholecystostomy and stone extraction in 2014 ([facility]), tube now pulled. 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 Constipation Cough Diarrhea Diverticulosis Emphysematous pyelonephritis Hemiparesis affecting right side as late effect of cerebrovascular accident (CVA) Hepatitis C History of multiple cerebrovascular accidents (CVAs) Hydronephrosis of right kidney Hypertension Hypothyroidism IDDM (insulin dependent diabetes mellitus) Ileus Left rotator cuff tear Lumbar disc disease Microcytic anemia Neck pain Nephrolithiasis Neurogenic bladder Obesity (BMI 30.0-34.9) Palliative care encounter Pyelonephritis Pyuria due to bacterial urinary tract infection Staghorn calculus Static encephalopathy Steroid dependent Uterine mass likely a fibroid UTI (urinary tract infection) UTI (urinary tract infection) Surgical History Abnormal cholangiogram H/O cervical spine surgery H/O foot surgery H/O wrist surgery History of extraction of renal calculus 12/13/2018 - [facility] History of hip surgery right History of lumbosacral spine surgery S/P cystoscopy with ureteral stent placement [facility] 11/2018 Status post creation of urethral sling by suprapubic approach Family History Mother Stroke Social History Smoking/Tobacco Use Status: Former Tobacco Use Smoking risk assessment performed?: Yes Alcohol Intake: former Substance use type: former substance user and IV drugs Housing: halfway Number of Children: 5 Education Level: elementary school Details: 6th grade, special ed, left school age 16. Current gender identity: female What is your relationship status?: Panel score (0-1 are the most socially isolated patients): 0 What type of physical activity do you participate in: none Do you feel safe at home: Yes Do you feel safe in your relationship?: Yes
[2023-12-11 14:50] LABS: BE (Venous) 3 mmol/L (-2-3); HCO3 (Venous) 29 mmol/L (23-28); O2 Sat (Venous) 81 %; TCO2 (Venous) 27 mmol/L (24-29); pCO2 (Venous) 49 mmHg (41-51); pH (Venous) 7.37 (7.31-7.41); pO2 (Venous) 45 mmHg
[2023-12-11 14:51] LABS: Abs Immature Grans 0.02 10^3/uL (0.0-0.06); Absolute Basophil Count 0.03 10^3/uL (0.0-0.2); Absolute Eosinophil Count 0.09 10^3/uL (0.0-0.7); Absolute Lymphocyte Count 1.48 10^3/uL (1.2-3.4); Absolute Monocyte Count 0.44 10^3/uL (0.1-0.8); Absolute Neutrophil Count 2.71 10^3/uL (1.2-6.7); Basophils % 0.6; Eosinophils % 1.9; HCT 38.4 % (36.0-46.0); HGB 11.6 g/dL (11.2-15.7); Immature Grans % 0.4; MCH 29.7 pg (27.0-33.0); MCHC 30.2 % (32.0-36.0); MCV 98 fL (80-95); MPV 9.7 fL (8.0-11.0); Monocytes % 9.2; Neutrophils % 56.9; Platelet Count 184 10^3/uL (130-400); RBC 3.91 10^6/uL (3.93-5.22); RDW 14.3 % (11.7-14.6); RDW-SD 50.9 fL; WBC 4.77 10^3/uL (4.4-10.8)
[2023-12-11 15:04] LABS: PTT Activated 30.4 sec (23.6-32.8); Prothrombin Time 10.4 sec (9.1-11.1)
[2023-12-11 15:18] LABS: ALT 9 U/L (14-59); AST 50 U/L (15-37); Albumin 3.1 g/dL (3.4-5.0); Alkaline Phosphatase 110 U/L (46-116); Anion Gap 8.8 mmol/L (3-11); BUN 13 mg/dL (7-18); Bilirubin, Total 0.4 mg/dL (0.2-1.0); CO2 28.2 mmol/L (21.0-32.0); CREATININE 0.8 mg/dL (0.55-1.02); Calcium 9.2 mg/dL (8.5-10.1); Chloride 102 mmol/L (98-107); Estimated GFR 82.74 (mL/min/1.73m2); Glucose 155 mg/dL (74-106); Lipase 46 U/L (16-77); Magnesium 1.8 mg/dL (1.8-2.4); Potassium 4.5 mmol/L (3.5-5.1); Sodium 139 mmol/L (136-145); TSH (W/Ref FT4) 5.42 uIU/mL (0.36-3.74); Total Protein 7.6 g/dL (6.4-8.2)
[2023-12-11 15:19] LABS: Troponin I < 50 ng/L (< or =60)
[2023-12-11 15:30] LABS: Procalcitonin 0.1 ng/mL
[2023-12-11 15:35] LABS: FREE T4 1.07 ng/dL (0.76-1.46)
[2023-12-11] MEDS: HYDROmorphone 2 MG/ML SYR 0.5 MG IVP (15:42)
[2023-12-11] MEDS: Normal Saline - Diluent 50 ML VIAL IJ (15:46)
[2023-12-11] MEDS: Omnipaque 350 MG/ML 100 ML BTL IJ (15:48)
--- NOTE | 2023-12-11 15:56 | DI.CT_ITS ---
Exam(s) CT CHEST PE CTA EXAM: CT CHEST PE CTA CLINICAL HISTORY: chest pain and dyspnea. TECHNIQUE: Imaging Protocol: Axial CT angiography was performed with multi-slice acquisition and mu lti-planar reconstructions as well as axial, coronal and sagittal MIP reconstructions. CONTRAST MATERIAL: Intravenous: Omnipaque 350 Contrast volume:100 ml COMPARISON: CT CT ABDOMEN PELVIS W from 02/08/[address] ABDOMEN PELVIS W from 02/19/2023 FINDINGS: Pulmonary Arteries: No evidence of filling defect to suggest pulmonary emboli. Tracheobronchial tree: No mucous plugging. Mediastinum and Audra: No dominant adenopathy or fluid collection. Pulmonary parenchyma: Evaluation somewhat limited due to respiratory motion and expiratory changes. No consolidation or dominant measurable mass. Pleura: No effusion or pneumothorax. Heart: The heart is mildly dilated. No coronary artery calcifications are seen. Aorta: Thoracic aorta non-dilated. No dissection. Upper abdomen: Liver markedly enlarged with severe hepatic steatosis. this has significantly progre ssed when compared with the prior exam. Bones: Unremarkable for age. Tubes, Catheters, and Lines: None Soft tissues: Unremarkable. IMPRESSION: No evidence of pulmonary embolism or other acute abnormality in the chest. Enlarged liver with severe hepatic steatosis is noted. RADIATION DOSE DELIVERED: Total DLP DATA REPOSITORY: All CT scans at this facility are submitted to the National Radiology Data Registry (NRDR) Dose Index Registry (DIR) with the [employer] (ACR). RADIATION OPTIMIZATION: All CT scans at this facility use at least one of these dose optimization te chniques: automated exposure control; mA and/or kV adjustment per patient size (includes targeted exa ms where dose is matched to clinical indication); or iterative reconstruction.
[2023-12-11 17:44] LABS: Troponin I < 50 ng/L (< or =60)
[2023-12-11] MEDS: HYDROmorphone 2 MG/ML SYR 0.5 MG IM (18:10)
== END 2023-12-11 18:15 | disposition skilled nursing facility (03) ==
PROVIDERS: Emergency Provider Emergency Medicine; PCP Family Medicine
DX: R07.9 Chest pain, unspecified (principal); R06.02 Shortness of breath; R53.83 Other fatigue; I69.351 Hemiplegia and hemiparesis following cerebral infarction affecting right dominant side; Z96.0 Presence of urogenital implants; Z79.84 Long term (current) use of oral hypoglycemic drugs; E11.9 Type 2 diabetes mellitus without complications; Z74.01 Bed confinement status; Z87.891 Personal history of nicotine dependence
CPT/HCPCS: 71275; 80053; 82805; 83690; 84145; 93005; 96374; 96375; 99285; 83735; 84439; 84443; 84484; 85025; 85610; 85730; 93010; 99284; J1170; J3490

== ENCOUNTER 2023-12-25 18:56 | Outpatient (REF) | payer MEDICAID, SELFPAY ==
[2023-12-25 17:10] LABS: Bilirubin Negative (Negative); Blood Large (Negative); Clarity Turbid (Clear); Glucose Negative (Negative); Ketones Negative (Negative); Leukocyte Esterase Large (Negative); Nitrite Positive (Negative); Specific Gravity 1.025 (1.005-1.025); Urobilinogen 0.2 mg/dL (Up to 0.2)
[2023-12-25 17:22] LABS: WBC >50 HPF (0-5)
[2023-12-25 17:23] LABS: Bacteria Many HPF (Negative); C & S Indicated? C&S Done As Ordered
== END 2023-12-25 18:57 | disposition home or self-care (01) ==
LOC: LBN 18:56
PROVIDERS: PCP Family Medicine; Visit Provider Nurse Practitioner Gerontology
DX: N39.0 Urinary tract infection, site not specified (principal); R82.998 Other abnormal findings in urine
CPT/HCPCS: 87077; 81003; 81015; 87086; 87186

== ENCOUNTER 2024-02-04 17:42 | Outpatient (REF) | payer MEDICAID, SELFPAY ==
[2024-02-04 18:13] LABS: ALT 14 U/L (14-59); AST 49 U/L (15-37); Albumin 3.1 g/dL (3.4-5.0); Alkaline Phosphatase 108 U/L (46-116); Anion Gap 13.1 mmol/L (3-11); BUN 6 mg/dL (7-18); Bilirubin, Total 0.3 mg/dL (0.2-1.0); CO2 24.9 mmol/L (21.0-32.0); CREATININE 0.8 mg/dL (0.55-1.02); Calcium 9.1 mg/dL (8.5-10.1); Chloride 104 mmol/L (98-107); Estimated GFR 82.74 (mL/min/1.73m2); Ferritin 101 ng/mL (8-252); Glucose 153 mg/dL (74-106); Potassium 4.6 mmol/L (3.5-5.1); Sodium 142 mmol/L (136-145); Vitamin B12 537 pg/mL (193-986)
== END 2024-02-04 17:43 | disposition home or self-care (01) ==
LOC: LBN 17:42
PROVIDERS: PCP Family Medicine; Visit Provider Nurse Practitioner Gerontology
DX: D51.8 Other vitamin B12 deficiency anemias (principal); E11.43 Type 2 diabetes mellitus with diabetic autonomic (poly)neuropathy; E83.42 Hypomagnesemia
CPT/HCPCS: 80053; 82607; 82728; 83036

== ENCOUNTER 2024-03-17 18:34 | Outpatient (REF) | payer MEDICAID, SELFPAY ==
[2024-03-17 18:49] LABS: Iron 29 ug/dL (50-170); Total Iron Binding Capacity 156 ug/dL (250-450); Transferrin Sat 19 % (15-50)
[2024-03-17 18:53] LABS: Hemoglobin A1C 6.9 % (<5.7)
[2024-03-17 19:02] LABS: ALT 21 U/L (14-59); AST 79 U/L (15-37); Albumin 2.7 g/dL (3.4-5.0); Alkaline Phosphatase 108 U/L (46-116); Anion Gap 10.8 mmol/L (3-11); BUN 11 mg/dL (7-18); Bilirubin, Total 0.29 mg/dL (0.2-1.0); CO2 28.2 mmol/L (21.0-32.0); CREATININE 0.8 mg/dL (0.55-1.02); Calcium 8.9 mg/dL (8.5-10.1); Chloride 102 mmol/L (98-107); Estimated GFR 82.74 (mL/min/1.73m2); Ferritin 118 ng/mL (8-252); Glucose 263 mg/dL (74-106); Magnesium 1.5 mg/dL (1.8-2.4); Potassium 4.7 mmol/L (3.5-5.1); Sodium 141 mmol/L (136-145); TSH (W/Ref FT4) 4.17 uIU/mL (0.36-3.74); Total Protein 7.4 g/dL (6.4-8.2)
[2024-03-17 20:07] LABS: FREE T4 1.04 ng/dL (0.76-1.46)
== END 2024-03-17 18:35 | disposition home or self-care (01) ==
LOC: LBN 18:34
PROVIDERS: PCP Family Medicine; Visit Provider Nurse Practitioner Gerontology
DX: E11.9 Type 2 diabetes mellitus without complications (principal); R94.6 Abnormal results of thyroid function studies; G89.4 Chronic pain syndrome; E83.42 Hypomagnesemia; R68.89 Other general symptoms and signs; R53.82 Chronic fatigue, unspecified; E61.1 Iron deficiency; E07.9 Disorder of thyroid, unspecified; R79.89 Other specified abnormal findings of blood chemistry
CPT/HCPCS: 80053; 82728; 83036; 83540; 83550; 83735; 84439; 84443

== ENCOUNTER 2024-03-26 11:50 | Emergency (ER) | payer MEDICAID, SELFPAY ==
[2024-03-26 11:58] VITALS: BP 138/66; PULSE 90; RESP 20; TEMP 36.6; O2SAT 94
--- NOTE | 2024-03-26 12:00 | DI.CT_ITS ---
Exam(s) CT CHEST/ABD/PEL W EXAM: CT CHEST/ABD/PEL W CLINICAL HISTORY: left abdominal pain, cough, sob. TECHNIQUE: Imaging Protocol: Axial computed tomography images with coronal and sagittal reformatted images were created and reviewed CONTRAST MATERIAL: Intravenous: Omnipaque 350 Contrast volume:100 ml Oral: None COMPARISON: CT CT CHEST PE CTA from 12/11/2023 FINDINGS: CHEST: LUNGS: There is pleural based infiltrate in both lower lobes which not evident on CT scan 12/11/2023. This is most prominent in the right lower lobe medial and posterior basal segments and exhibits air bronchograms. There also secretions within the bronchi. Also pleural based infiltrate in the left lower lobe. There are no pleural effusions. No overlying rib destruction.. MEDIASTINUM: There is no hilar nor mediastinal adenopathy. The esophagus is somewhat dilated superio rly. Does not contain food. CARDIAC: Heart size upper normal. No pericardial effusion.Caliber thoracic aorta is normal and there is no dissection. Independent origin of the left vertebral artery off the aortic arch is incidental ly noted. OSSEOUS: There is a anterior fusion plate in the lower cervical spine. no fractures nor significant o sseous lesions.. ABDOMEN: There is no ascites. LIVER: Liver is hypodense implying steatosis. There are no discrete focal hepatic lesions. No dilat ed intrahepatic ducts. GALLBLADDER/BILIARY: No obvious acute gallbladder pathology. CBD is not dilated. PANCREAS: No evidence of pancreatic mass nor dilatation of the pancreatic duct. SPLEEN: Spleen is enlarged with cephalocaudal measurement 14.5 cm. No discrete focal splenic lesions identified. Splenic and portal veins are patent. ADRENALS: There are no significant adrenal masses. KIDNEYS: lobulation of the kidneys noted bilaterally. No prominent atrophy. No cysts nor mass es nor calculi nor hydronephrosis.. ABDOMINAL AORTA: Abdominal aorta is calcified but not enlarged. Iliac arteries are not enlarged. LYMPH NODES: There is no retroperitoneal nor paraaortic adenopathy. ABDOMINAL WALL: No evidence of significant anterior abdominal wall nor inguinal hernia. GI: There is abundant fecal material noted in the rectum. Rectal diameter is 7 cm. There is no sign ificant sigmoid diverticular disease. No diverticulitis. PELVIS: LYMPH NODES: There is no intrapelvic nor inguinal adenopathy. GI: No evidence of appendicitis. URINARY BLADDER: There is a percutaneous suprapubic urinary bladder catheter and the bladder is colla psed around the catheter. REPRODUCTIVE: Fibroid appearing uterus. No abnormal adnexal masses evident and no free fluid in the pelvis. OSSEOUS: No significant osseous lesions. No fractures. IMPRESSION: 1. There is significant infiltrate in both lower lobes, more so on the right side, this not evident o n prior CT scan of November 2023. There are no pleural effusions. No intrathoracic adenopathy evident. 2. Hepatic steatosis. A paddle megaly and splenomegaly. No obvious varices. 3. No ascites. 4. The urinary bladder is collapsed around a percutaneous suprapubic catheter. Fibroid uterus. No abnormal adnexal masses. No ascites. Called by myself to ER physician. RADIATION DOSE DELIVERED: 2,542.33mGy.cm Total DLP DATA REPOSITORY: All CT scans at this facility are submitted to the National Radiology Data Registry (NRDR) Dose Index Registry (DIR) with the [employer] (ACR). RADIATION OPTIMIZATION: All CT scans at this facility use at least one of these dose optimization te chniques: automated exposure control; mA and/or kV adjustment per patient size (includes targeted exa ms where dose is matched to clinical indication); or iterative reconstruction.
[2024-03-26 12:30] LABS: BE (Venous) 3 mmol/L (-2-3); HCO3 (Venous) 27 mmol/L (23-28); O2 Sat (Venous) 99 %; TCO2 (Venous) 25 mmol/L (24-29); pCO2 (Venous) 43 mmHg (41-51); pH (Venous) 7.41 (7.31-7.41); pO2 (Venous) 99 mmHg
[2024-03-26 12:33] LABS: Lactate 1.6 mmol/L (0.6-1.4)
[2024-03-26 12:34] LABS: Abs Immature Grans 0.12 10^3/uL (0.0-0.06); Absolute Basophil Count 0.02 10^3/uL (0.0-0.2); Absolute Eosinophil Count 0.03 10^3/uL (0.0-0.7); Absolute Monocyte Count 0.52 10^3/uL (0.1-0.8); Absolute Neutrophil Count 8.25 10^3/uL (1.2-6.7); Basophils % 0.2 %; Eosinophils % 0.3 %; HCT 32.7 % (36.0-46.0); HGB 10.2 g/dL (11.2-15.7); Immature Grans % 1.1 %; Lymphocytes % 14.4 %; MCH 29.4 pg (27.0-33.0); MCHC 31.2 % (32.0-36.0); MCV 94 fL (80-95); Platelet Count 185 10^3/uL (130-400); RBC 3.47 10^6/uL (3.93-5.22); RDW 15.3 % (11.7-14.6); RDW-SD 53.1 fL; WBC 10.44 10^3/uL (4.4-10.8)
[2024-03-26 12:54] VITALS: BP 138/66; PULSE 90; RESP 20; TEMP 36.6; O2SAT 94
[2024-03-26 12:58] LABS: ALT 11 U/L (14-59); AST 32 U/L (15-37); Alkaline Phosphatase 93 U/L (46-116); Anion Gap 8.4 mmol/L (3-11); BUN 19 mg/dL (7-18); Bilirubin, Total 0.46 mg/dL (0.2-1.0); CO2 27.6 mmol/L (21.0-32.0); CREATININE 0.9 mg/dL (0.55-1.02); Calcium 9.1 mg/dL (8.5-10.1); Chloride 104 mmol/L (98-107); Estimated GFR 71.83 (mL/min/1.73m2); Glucose 119 mg/dL (74-106); Sodium 140 mmol/L (136-145); Total Protein 7.3 g/dL (6.4-8.2)
[2024-03-26 13:10] LABS: Procalcitonin 16.8 ng/mL
[2024-03-26] MEDS: Normal Saline Flush 10 ML SYR IVP (13:25)
[2024-03-26] MEDS: Omnipaque 350 MG/ML 100 ML BTL IJ (13:26)
[2024-03-26] MEDS: Normal Saline - Diluent 50 ML VIAL IJ (13:26)
[2024-03-26 14:47] LABS: Bilirubin Negative (Negative); Blood Trace-intact (Negative); Clarity Cloudy (Clear); Glucose Negative (Negative); Ketones Negative (Negative); Leukocyte Esterase Moderate (Negative); Nitrite Negative (Negative); Urobilinogen 0.2 mg/dL (Up to 0.2)
--- NOTE | 2024-03-26 15:00 | ED.GENADUL_ITS ---
Discharge Plan Disposition Patient Disposition: Home Condition: Good Discharge Details Clinical Impression: Pneumonia, Constipation Primary Care Provider: Agueda Bingham ED Provider: Elfego Chino Home Meds and New Rx's Prescriptions: No Action metformin 500 mg tablet 500 mg PO BID lactase [Lactaid] 3,000 unit tablet 9,000 unit PO TID Rx Instructions: administer with meals and/or snacks simethicone 180 mg capsule 180 mg PO TID PRN gabapentin 600 mg tablet 600 mg PO BID quetiapine 100 mg tablet 100 mg PO TID trazodone 50 mg tablet 50 mg PO BID lidocaine 5 % adhesive patch,medicated 1 patch topical Q24H Qty: 0 0RF Rx Instructions: 01/19/23 4% patch per med req with [facility] list. -hb docusate sodium [Colace] 100 mg capsule 200 mg PO .BID, PRN Orajel 3X Mouth Sores 20-0.1-0.15 % gel 1 applic mucous membrane QID PRN Qty: 5.1 0RF atorvastatin 20 mg Tablet 20 mg PO QPM Qty: 0 0RF calcium carbonate 200 mg calcium (500 mg) Tablet,Chewable 500 mg PO Q4H PRN PRN (Reason: dyspepsia) Qty: 0 0RF nitrofurantoin monohyd/m-cryst [Macrobid] 100 mg capsule 100 mg PO DAILY levofloxacin 750 mg tablet 750 mg PO DAILY Patient Comments: received 2 doses, one last night and one this AM, daily med. mirtazapine 15 mg Tablet 15 mg PO QHS lamotrigine [Lamictal] 25 mg Tablet 50 mg PO DAILY Qty: 1 0RF acetaminophen 500 mg Tablet 500 mg PO BID fluticasone propionate [Flonase Allergy Relief] 50 mcg/actuation [place],Suspension 1 spray INTRANASAL BID Trulicity 1.5 mg/0.5 mL pen injector 1 device SUBCUT DIRECTED Patient Comments: 4.5mg Qweek on Fridays Rx Instructions: weekly levothyroxine 100 mcg Tablet 100 mcg PO DAILY Patient Comments: takes QHS carbidopa-levodopa 25-100 mg Tablet 1 tab PO QID B-complex with vitamin C Capsule 1 cap PO DAILY omeprazole 20 mg capsule,delayed release(DR/EC) 40 mg PO DAILY lorazepam 0.5 mg Tablet 0.5 mg PO BID albuterol sulfate [Ventolin HFA] 90 mcg/actuation Hfa Aerosol Inhaler 2 puff INHALATION Q4H PRN PRNQty: 0 0RF polyethylene glycol 3350 [Miralax] 17 gram powder in packet 17 g PO BID potassium chloride [Klor-Con M10] 10 mEq tablet,ER particles/crystals 10 meq PO DAILY bupropion HCl [Wellbutrin XL] 150 mg tablet extended release 24 hr 150 mg PO DAILY loratadine [Claritin] 10 mg tablet 10 mg PO DAILY magnesium gluconate 12.5 mg magne- sium (250 mg) tablet 250 mg PO BID ropinirole 0.5 mg tablet 0.5 mg PO QHS tamsulosin 0.4 mg capsule 0.4 mg PO DAILY ferrous gluconate 324 mg (37.5 mg iron) tablet 324 mg PO DAILY mirabegron [Myrbetriq] 25 mg tablet extended release 24 hr 25 mg PO DAILY hexylresorcinol Lozenge 1 marivel mucous membrane BID diclofenac sodium 1 % gel 2 g topical BID Rx Instructions: apply to affected area/shoulder/neck and lower back BID tramadol 50 mg tablet 50 mg PO Q6H PRN triamcinolone acetonide 0.025 % cream 1 applic topical BID PRN Rx Instructions: apply topically to external vagina twice daily as needed tramadol 50 mg Tablet 50 mg PO HS Discharge Instructions Instructions: Constipation in adults, Pneumonia, Adult ED Additional Instructions: At this time your pneumonia appears stable. Please continue taking the Levaquin. Additionally you do have evidence of constipation in your left lower quadrant. Please continue to take your Colace 200 mg twice daily. Please also drink plenty of fluids to stay well-hydrated. If you still have persistent constipation, you may require to take 1 bottle of magnesium citrate orally to help push things through. This can be found [id number]. If you notice any worsening of your symptoms, or any new symptoms such as vomiting, diarrhea, fever, chills, shortness of breath, chest pain, numbness, weakness, or fainting , please return immediately to the emergency department for reevaluation. Please follow up with your primary care provider as soon as possible for reassessment and reevaluation. As always, it was a pleasure participating in your medical care today. . Referrals: Agueda Bingham [Primary Care Provider] - [facility] General Date/Time Provider Initiated Documentation: 03/26/24 12:01 . HPI Narrative: This is a 63-year-old female with a past medical history of prior cerebrovascular accidents, chronic right-sided deficits, chronic right-sided hemiparesis, diabetes mellitus type 2, gallstones, bipolar type I, chronic suprapubic Martinez catheter, who currently resides at the [facility], presents today for left lower quadrant abdominal pain. Review of patient's history reveals that she was recently diagnosed with pneumonia and has been started on levofloxacin, she is taking this as directed, today she developed some mild left lower quadrant abdominal pain. She denies any other complaints. No other modifying factors. History is somewhat limited. She presents via EMS from the [facility]. Related Data Home Medications Medication Instructions Recorded Confirmed mirtazapine 15 mg tablet 15 mg PO QHS 03/26/20 03/26/24 lamotrigine 25 mg tablet (Lamictal) 50 mg (2 x 25 mg) PO DAILY #1 tab 04/08/20 03/26/24 metformin 500 mg tablet 500 mg PO BID 12/20/20 03/26/24 lactase 3,000 unit tablet (Lactaid) 9,000 unit PO TID 06/22/21 03/26/24 acetaminophen 500 mg tablet 500 mg PO BID 06/01/22 03/26/24 dulaglutide 1.5 mg/0.5 mL 1 device subcut DIRECTED 06/01/22 03/26/24 subcutaneous pen injector (Trulicity) fluticasone propionate 50 1 spray intranasal BID 06/01/22 03/26/24 mcg/actuation nasal spray,suspension (Flonase Allergy Relief) B-complex with vitamin C 1 cap PO DAILY 11/09/22 03/26/24 carbidopa 25 mg-levodopa 100 mg 1 tab PO QID 11/09/22 03/26/24 tablet levothyroxine 100 mcg tablet 100 mcg PO DAILY 11/09/22 03/26/24 atorvastatin 20 mg tablet 20 mg PO QPM #0 tabs 11/28/22 03/26/24 lorazepam 0.5 mg tablet 0.5 mg PO BID 12/24/22 03/26/24 albuterol sulfate 90 mcg/actuation 2 puff inhalation Q4H PRN PRN #0 01/01/23 03/26/24 aerosol inhaler (Ventolin HFA) grams benzocaine 20 %-menthol 0.1 %-zinc 1 applic mucous membrane QID PRN 01/19/23 03/26/24 chloride 0.15 % mucosal gel #5.1 grams (Orajel 3X Mouth Sores) docusate sodium 100 mg capsule 200 mg PO .BID, PRN 01/19/23 03/26/24 (Colace) gabapentin 600 mg tablet 600 mg PO BID 01/19/23 03/26/24 lidocaine 5 % topical patch 1 patch topical Q24H #0 ea 01/19/23 03/26/24 quetiapine 100 mg tablet 100 mg PO TID 01/19/23 03/26/24 simethicone 180 mg capsule 180 mg PO TID PRN 01/19/23 03/26/24 trazodone 50 mg tablet 50 mg PO BID 01/19/23 03/26/24 calcium carbonate 500 mg (2.5 x 200 mg calcium (500 02/12/23 03/26/24 mg)) PO Q4H PRN PRN dyspepsia #0 tabs omeprazole 20 mg capsule,delayed 40 mg PO DAILY 07/23/23 03/26/24 release bupropion HCl 150 mg 24 hr tablet, 150 mg PO DAILY 12/11/23 03/26/24 extended release (Wellbutrin XL) diclofenac sodium 1 % topical gel 2 g topical BID 12/11/23 03/26/24 ferrous gluconate 324 mg (37.5 mg 324 mg PO DAILY 12/11/23 03/26/24 iron) tablet hexylresorcinol 1 marivel mucous membrane BID 12/11/23 03/26/24 loratadine 10 mg tablet (Claritin) 10 mg PO DAILY 12/11/23 03/26/24 magnesium gluconate 12.5 mg 250 mg PO BID 12/11/23 03/26/24 magnesium (250 mg) tablet mirabegron 25 mg tablet,extended 25 mg PO DAILY 12/11/23 03/26/24 release 24 hr (Myrbetriq) polyethylene glycol 3350 17 gram 17 g PO BID 12/11/23 03/26/24 oral powder packet (Miralax) potassium chloride 10 mEq 10 meq PO DAILY 12/11/23 03/26/24 tablet,extended release(part/cryst) (Klor-Con M) ropinirole 0.5 mg tablet 0.5 mg PO QHS 12/11/23 03/26/24 tamsulosin 0.4 mg capsule 0.4 mg PO DAILY 12/11/23 03/26/24 tramadol 50 mg tablet 50 mg PO HS 12/11/23 03/26/24 tramadol 50 mg tablet 50 mg PO Q6H PRN 12/11/23 03/26/24 triamcinolone acetonide 0.025 % 1 applic topical BID PRN 12/11/23 03/26/24 topical cream levofloxacin 750 mg tablet 750 mg PO DAILY 03/26/24 03/26/24 nitrofurantoin 100 mg PO DAILY 03/26/24 03/26/24 monohydrate/macrocrystals 100 mg capsule (Macrobid) Previous Rx's Medication Instructions Recorded lamotrigine 25 mg tablet (Lamictal) 50 mg (2 x 25 mg) PO DAILY #1 tab 04/08/20 atorvastatin 20 mg tablet 20 mg PO QPM #0 tabs 11/28/22 albuterol sulfate 90 mcg/actuation 2 puff inhalation Q4H PRN PRN #0 01/01/23 aerosol inhaler (Ventolin HFA) grams benzocaine 20 %-menthol 0.1 %-zinc 1 applic mucous membrane QID PRN 01/19/23 chloride 0.15 % mucosal gel #5.1 grams (Orajel 3X Mouth Sores) lidocaine 5 % topical patch 1 patch topical Q24H #0 ea 01/19/23 calcium carbonate 500 mg (2.5 x 200 mg calcium (500 02/12/23 mg)) PO Q4H PRN PRN dyspepsia #0 tabs Allergies Allergy/AdvReac Type Severity Reaction Status Date / Time naproxen [From Aleve] Allergy Unknown Itching Unverified 03/26/24 11:58 Penicillins Allergy Unknown Itching Unverified 03/26/24 11:58 propoxyphene Allergy Unknown Itching Unverified 03/26/24 11:58 Sulfa (Sulfonamide Allergy Unknown Itching Unverified 03/26/24 11:58 Antibiotics) methadone Allergy Nausea Verified 03/26/24 11:58 General Stated Complaint: RespSymp RUBENS: 3 Review of Systems All systems reviewed & are unremarkable except as noted in HPI and below Exam Narrative Exam Narrative: 1.Const: Well-nourished, Well-developed, appearing stated age 2.Eyes: PERRL, no conjunctival injection, and symmetrical lids. 3.ENT: Atraumatic external nose and ears. Dry MM. Neck: Symmetric, trachea midline, No thyromegaly. 4.CVS: +S1/S2, No murmurs or gallops. Peripheral pulses 2+ and equal in all extremities. Brisk capillary refill in all extremities. 5.RESP: Unlabored respiratory effort. Clear to auscultation bilaterally. No wheezes rales or rhonchi 6.GI: Soft, mildly distended, mild tenderness in the left lower abdominal quadrant. No guarding or rebound. External vaginal exam was requested specifically by patient, nurse was at bedside for this request and nurse Qian can confirm. External vaginal exam was done with female nurse at bedside, no edema discharge or drainage. No tenderness. No signs of ulcer. Suprapubic catheter in place. 7.MSK: Normocephalic/Atraumatic, Extremities w/o deformity or ttp No cyanosis or clubbing, chronic contractures of the right upper extremity, chronic disability the right lower extremity 8.Skin: Warm, Dry. No rashes or lesions. 9.Neuro: At chronic baseline for neuro assessment Course Vital Signs Vital signs: Vital Signs Temperature 36.6 C 03/26/24 11:58 Pulse 90 03/26/24 11:58 Respiratory Rate 20 03/26/24 11:58 Blood Pressure 138/66 03/26/24 11:58 Pulse Oximetry 94 03/26/24 11:58 Temperature 36.6 C 03/26/24 12:54 Temperature Source Tympanic 03/26/24 12:54 Pulse 90 03/26/24 12:54 Respiratory Rate 20 03/26/24 12:54 Respiratory Effort Short of Breath 03/26/24 12:04 Blood Pressure 138/66 03/26/24 12:54 Blood Pressure Position Supine 03/26/24 12:54 Pulse Oximetry 94 03/26/24 12:54 Oxygen Delivery Method Nasal Cannula 03/26/24 12:54 Oxygen Flow Rate 0.5 03/26/24 12:54 Pain Level 10 03/26/24 12:54 Comment vagina 03/26/24 11:58 Lab/Test Results Lab/Test Results: 03/26/24 12:35 Blood Blood Culture - Pending 03/26/24 12:13 Blood Blood Culture - Pending Laboratory Tests Range/Units 03/26/24 03/26/24 12:20 14:11 WBC (4.4-10.8) 10^3/uL 10.44 RBC (3.93-5.22) 10^6/uL 3.47 L Hgb (11.2-15.7) g/dL 10.2 L Hct (36.0-46.0) % 32.7 L MCV (80-95) fL 94 MCH (27.0-33.0) pg 29.4 MCHC (32.0-36.0) % 31.2 L RDW (11.7-14.6) % 15.3 H Plt Count (130-400) 10^3/uL 185 MPV (8.0-11.0) fL 10.0 Immature Gran % % 1.1 Neutrophils % % 79.0 Lymphocytes % % 14.4 Monocytes % % 5.0 Eosinophils % % 0.3 Basophils % % 0.2 Nucleated RBC % (0.0-0.3) % 0.0 Absolute Neutrophils (1.2-6.7) 10^3/uL 8.25 H Absolute Lymphocytes (1.2-3.4) 10^3/uL 1.50 Absolute Monocytes (0.1-0.8) 10^3/uL 0.52 Absolute Eosinophils (0.0-0.7) 10^3/uL 0.03 Absolute Basophils (0.0-0.2) 10^3/uL 0.02 VBG pH (7.31-7.41) 7.41 VBG pCO2 (41-51) mmHg 43 VBG pO2 mmHg 99 VBG HCO3 (23-28) mmol/L 27 VBG Total CO2 (24-29) mmol/L 25 VBG O2 Saturation % 99 VBG Base Excess (-2-3) mmol/L 3 VBG Lactate (0.6-1.4) mmol/L 1.6 H Sodium (136-145) mmol/L 140 Potassium (3.5-5.1) mmol/L 4.0 Chloride (98-107) mmol/L 104 Carbon Dioxide (21.0-32.0) mmol/L 27.6 Anion Gap (3-11) mmol/L 8.4 BUN (7-18) mg/dL 19 H Creatinine (0.55-1.02) mg/dL 0.9 Est GFR (CKD-EPI 2020) (mL/min/1.73m2) 71.83 Glucose (74-106) mg/dL 119 H Calcium (8.5-10.1) mg/dL 9.1 Total Bilirubin (0.2-1.0) mg/dL 0.46 AST (15-37) U/L 32 ALT (14-59) U/L 11 L Alkaline Phosphatase (46-116) U/L 93 Total Protein (6.4-8.2) g/dL 7.3 Albumin (3.4-5.0) g/dL 2.0 L Procalcitonin ng/mL 16.8 Urine Color (Yellow) Yellow Urine Clarity (Clear) Cloudy Urine pH (5-8) 7.0 Ur Specific [place] (1.005-1.025) 1.010 Urine Protein (Neg-Trace) mg/dL 30 H Urine Ketones (Negative) mg/dL Negative Urine Blood (Negative) Trace-intact H Urine Nitrite (Negative) Negative Urine Bilirubin (Negative) Negative Urine Urobilinogen (Up to 0.2) mg/dL 0.2 Ur Leukocyte Esterase (Negative) Moderate H Urine Glucose (Negative) mg/dL Negative Medical Decision Making This is a 63-year-old female with a past medical history of prior cerebrovascular accidents, chronic right-sided deficits, chronic right-sided hemiparesis, diabetes mellitus type 2, gallstones, bipolar type I, chronic suprapubic Martinez catheter, who currently resides at the [facility], presents today for left lower quadrant abdominal pain. Review of patient's history reveals diane t she was recently diagnosed with pneumonia and has been started on levofloxacin, she is taking this as directed, today she developed some mild left lower quadrant abdominal pain. She denies any other complaints. No other modifying factors. History is somewhat limited. She presents via EMS from the [facility]. Exam demonstrates mild left lower quadrant abdominal tenderness, mild rhonchi for the lung exams, no other abnormality. Suprapubic is in place. Patient is on Levaquin already, she shows no signs of sepsis or septic shock, no fever, tachycardia, or hypotension. Will get a CT scan to evaluate her lungs and her abdomen, monitor closely and reassess. Differential includes obstruction, diverticulitis, constipation, mass or other abnormality. Will evaluate for these etiologies. 3:[address] scan shows evidence of known clinical pneumonia now confirmed by CT, there is also evidence of constipation, rectal stool, with no evidence of diverticulitis or proctitis per radiology. There is a notable amount of gas also bit proximally from this, which is right where the patient's pain is. No evidence of rupture. Patient is otherwise hemodynamically stable. Pain well-controlled. She is on Levaquin which we will continue to cover her pneumonia and any potential UTI. We will recommend continued Colace, mag citrate potentially at home/the [facility], and enemas. Nursing staff communicated this with the receiving nurse at the [facility]. Discussed red flags for which to return. I have extensively reviewed the treatment plan and discharge instructions with the patient. I have addressed all patient concerns at this time. The patient was made aware of what symptoms to monitor for that would warrant a return to the emergency department. Discussed the plan with the patient, they demonstrate verbal understanding and agreement with our assessment and plan at this time. The documentation in this chart was dictated using [employer] dictation software. Please excuse any dictation errors. FINDINGS: CHEST: LUNGS: There is pleural based infiltrate in both lower lobes which not evident on CT scan 12/11/2023. This is most prominent in the right lower lobe medial and posterior basal segments and exhibits air bronchograms. There also secretions within the bronchi. Also pleural based infiltrate in the left lower lobe. There are no pleural effusions. No overlying rib destruction.. MEDIASTINUM: There is no hilar nor mediastinal adenopathy. The esophagus is somewhat dilated superiorly. Does not contain food. CARDIAC: Heart size upper normal. No pericardial effusion.Caliber thoracic aorta is normal and there is no dissection. Independent origin of the left vertebral artery off the aortic arch is incidentally noted. OSSEOUS: There is a anterior fusion plate in the lower cervical spine. no fractures nor significant osseous lesions.. ABDOMEN: There is no ascites. LIVER: Liver is hypodense implying steatosis. There are no discrete focal hepatic lesions. No dilated intrahepatic ducts. GALLBLADDER/BILIARY: No obvious acute gallbladder pathology. CBD is not dilated. PANCREAS: No evidence of pancreatic mass nor dilatation of the pancreatic duct. SPLEEN: Spleen is enlarged with cephalocaudal measurement 14.5 cm. No discrete focal splenic lesions identified. Splenic and portal veins are patent. ADRENALS: There are no significant adrenal masses. KIDNEYS: lobulation of the kidneys noted bilaterally. No prominent atrophy. No cysts nor masses nor calculi nor hydronephrosis.. ABDOMINAL AORTA: Abdominal aorta is calcified but not enlarged. Iliac arteries are not enlarged. LYMPH NODES: There is no retroperitoneal nor paraaortic adenopathy. ABDOMINAL WALL: No evidence of significant anterior abdominal wall nor inguinal hernia. GI: There is abundant fecal material noted in the rectum. Rectal diameter is 7 cm. There is no significant sigmoid diverticular disease. No diverticulitis. PELVIS: LYMPH NODES: There is no intrapelvic nor inguinal adenopathy. GI: No evidence of appendicitis. URINARY BLADDER: There is a percutaneous suprapubic urinary bladder catheter and the bladder is collapsed around the catheter. REPRODUCTIVE: Fibroid appearing uterus. No abnormal adnexal masses evident and no free fluid in the pelvis. OSSEOUS: No significant osseous lesions. No fractures. IMPRESSION: 1. There is significant infiltrate in both lower lobes, more so on the right side, this not evident on prior CT scan of November 2023. There are no pleural effusions. No intrathoracic adenopathy evident. 2. Hepatic steatosis. A paddle megaly and splenomegaly. No obvious varices. 3. No ascites. 4. The urinary bladder is collapsed around a percutaneous suprapubic catheter. Fibroid uterus. No abnormal adnexal masses. No ascites. Quality:SDOH Health Related Social Needs: No Data to Display PFSH All Active Problems Constipation (Acute) Pneumonia (Acute) Diabetes mellitus type 2, insulin dependent (Acute) Diarrhea (Acute) Bacteremia (Acute) UTI (urinary tract infection) (Acute) Hypoalbuminemia (Acute) Hyperglycemia (Acute) High anion gap metabolic acidosis (Acute) Anemia (Chronic) Advanced care planning/counseling discussion (Acute) Gallstones (Acute) Tardive dyskinesia (Acute) Parkinsonism (Acute) Bipolar 1 disorder (Chronic) Bipolar affective disorder, current episode depressed (Acute) rule out bipolar disorder reported by patient. Antiepileptics maybe preventing manic episode. Major depressive disorder, recurrent, severe with psychotic features (Acute) Current presentation is depression. She may have bipolar affective disorder. Ambulatory dysfunction (Chronic) Hemiparesis affecting right side as late effect of cerebrovascular accident (Chronic) Dysphagia as late effect of cerebrovascular accident (CVA) (Chronic) Dysarthria as late effect of cerebrovascular accident (CVA) (Acute) Medical History Acute bronchitis Diarrhea Abdominal bloating Abdominal pain Pyelonephritis Microcytic anemia Emphysematous pyelonephritis Hydronephrosis of right kidney Pyuria due to bacterial urinary tract infection Arthritis of left shoulder region Left rotator cuff tear Cough Ileus History of stroke Palliative care encounter Diverticulosis Nephrolithiasis Uterine mass likely a fibroid Cholelithiasis with acute cholecystitis s/p cholecystostomy and stone extraction in 2014 ([facility]), tube now pulled. 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 UTI (urinary tract infection) Chronic chest pain Constipation Staghorn calculus Autoimmune disorder Neck pain UTI (urinary tract infection) Aphasia as late effect of cerebrovascular accident Surgical History History of extraction of renal calculus 12/13/2018 - [facility] S/P cystoscopy with ureteral stent placement [facility] 11/2018 History of hip surgery right H/O wrist surgery H/O foot surgery History of lumbosacral spine surgery Abnormal cholangiogram H/O cervical spine surgery Status post creation of urethral sling by suprapubic approach Family History Mother Stroke Social History Smoking/Tobacco Use Status: Former Tobacco Use Smoking risk assessment performed?: Yes Alcohol Intake: former Drug use: Current Sobriety Substance use type: former substance user and IV drugs Housing: [facility] Number of Children: 5 Education Level: elementary school Details: 6th grade, special ed, left school age 16. Current gender identity: female What is your relationship status?: Panel score (0-1 are the most socially isolated patients): 0 What type of physical activity do you participate in: none Do you feel safe at home: Yes Do you feel safe in your relationship?: Yes Additional Social history: The [facility]
[2024-03-26 15:06] LABS: WBC >50 HPF (0-5)
[2024-03-26 15:09] LABS: C & S Indicated? Yes
[2024-03-26] MEDS: ACETAMINOPHEN 1,000 MG/100 ML BTL 400 MG IVPB (16:51)
[2024-03-26 16:53] VITALS: BP 103/72; PULSE 66; RESP 16; O2SAT 90
[2024-03-26 16:54] VITALS: BP 103/72; PULSE 66; RESP 16; TEMP 36.6; O2SAT 90
== END 2024-03-26 16:55 | disposition home or self-care (01) ==
PROVIDERS: Emergency Provider Student in an Organized Health Care Education/Training Program; PCP Family Medicine
DX: J18.9 Pneumonia, unspecified organism; K59.00 Constipation, unspecified; I69.951 Hemiplegia and hemiparesis following unspecified cerebrovascular disease affecting right dominant side; E11.9 Type 2 diabetes mellitus without complications; F31.9 Bipolar disorder, unspecified; Z79.4 Long term (current) use of insulin; G20.C Parkinsonism, unspecified; I10 Essential (primary) hypertension; F41.9 Anxiety disorder, unspecified; E03.9 Hypothyroidism, unspecified; Z79.899 Other long term (current) drug therapy
CPT/HCPCS: 36415; 74177; 80053; 82805; 84145; 87040; 87637; 96374; 99285; 71260; 81003; 81015; 83605; 85025; 87086; 99284; J0131; J3490

== ENCOUNTER 2024-05-09 10:44 | Inpatient (IN) | payer MEDICAID, SELFPAY ==
[2024-05-09] VITALS (48 sets, daily range): BP systolic 81–110; BP diastolic 38–65; PULSE 77–105; RESP 8–22; TEMP 36.3–36.8; O2SAT 94–100
--- NOTE | 2024-05-09 10:30 | RT.EKG_ITS ---
APPROVED REPORT Exam: Resting ECG Reason for Exam: AMS Patient Location: E HR:104 bpm ECG Measurements Heart Rate 104 AXIS CA 145 P 53 QRSd 96 QRS 0 QT 349 T 161 QTc 458 Conclusion Sinus tachycardia with rate of 104 No STEMI Normal intervals
--- NOTE | 2024-05-09 11:05 | W.ED.GENAD ---
Discharge Plan Disposition Patient Disposition: Home Condition: Improving Discharge Details Chief Complaint: AMS/LOC Clinical Impression: Pneumonia, Anemia, Diabetes mellitus type 2, insulin dependent, Bipolar 1 disorder, Sepsis Admit Date/Time: 05/09/24 13:19 Admit Provider: Campbell Scott Attending Provider: Campbell Scott Primary Care Provider: Agueda Bingham ED Provider: Stacey Zaidi Home Meds and New Rx's Prescriptions: No Action metformin 500 mg tablet 500 mg PO DAILY lactase [Lactaid] 3,000 unit tablet 9,000 unit PO TID Rx Instructions: administer with meals and/or snacks simethicone 180 mg capsule 180 mg PO TID gabapentin 600 mg tablet 600 mg PO BID quetiapine 100 mg tablet 100 mg PO TID trazodone 50 mg tablet 50 mg PO BID lidocaine 5 % adhesive patch,medicated 1 patch topical Q24H Qty: 0 0RF Rx Instructions: 01/19/23 4% patch per med req with Loop Survey list. -hb atorvastatin 20 mg Tablet 20 mg PO QPM Qty: 0 0RF nitrofurantoin monohyd/m-cryst [Macrobid] 100 mg capsule 50 mg PO DAILY mirtazapine 15 mg Tablet 15 mg PO QHS lamotrigine [Lamictal] 25 mg Tablet 50 mg PO DAILY Qty: 1 0RF acetaminophen 500 mg Tablet 500 mg PO BID fluticasone propionate [Flonase Allergy Relief] 50 mcg/actuation [place],Suspension 1 spray INTRANASAL BID Trulicity 1.5 mg/0.5 mL pen injector 1 device SUBCUT DIRECTED Patient Comments: 0.5 ML Q week on Sunday Rx Instructions: weekly levothyroxine 100 mcg Tablet 100 mcg PO QHS Patient Comments: takes QHS carbidopa-levodopa 25-100 mg Tablet 1 tab PO QID B-complex with vitamin C Capsule 1 cap PO DAILY omeprazole 20 mg capsule,delayed release(DR/EC) 40 mg PO DAILY lorazepam 0.5 mg Tablet 0.5 mg PO BID polyethylene glycol 3350 [Miralax] 17 gram powder in packet 17 g PO BID potassium chloride [Klor-Con M10] 10 mEq tablet,ER particles/crystals 10 meq PO DAILY bupropion HCl [Wellbutrin XL] 150 mg tablet extended release 24 hr 150 mg PO DAILY loratadine [Claritin] 10 mg tablet 10 mg PO DAILY magnesium gluconate 12.5 mg magne- sium (250 mg) tablet 500 mg PO BID ropinirole 0.5 mg tablet 0.5 mg PO QHS tamsulosin 0.4 mg capsule 0.4 mg PO DAILY ferrous gluconate 324 mg (37.5 mg iron) tablet 324 mg PO DAILY mirabegron [Myrbetriq] 25 mg tablet extended release 24 hr 50 mg PO DAILY tramadol 50 mg Tablet 50 mg PO HS lactulose 10 gram/15 mL solution 10 g PO DAILY ipratropium-albuterol 0.5 mg-3 mg(2.5 mg base)/3 mL solution for nebulization 3 ml inhalation BID Lactobacillus acidoph-pectin Capsule 100 cap PO BID cranberry extract [Cranberry Concentrate] 500 mg capsule 500 mg PO DAILY Rx Instructions: administer with a meal albuterol sulfate [Ventolin HFA] 90 mcg/actuation Hfa Aerosol Inhaler 1 puff INHALATION BID HPI General Date/Time Provider Initiated Documentation: 05/09/24 10:55. Limitations to Documentation: altered mental status. Information obtained by: patient and EMS. HPI Narrative: MDM: In brief, this is a 63-year-old female patient with a past medical history significant for stroke with residual speech and right sided body deficits, history of urinary tract infection and indwelling suprapubic catheter, diabetes, bipolar, presenting from her facility by EMS with altered mental status, junky sounding cough. My differential includes but is not limited to pneumonia, urinary tract infection, sepsis, bacteremia. The patient's right-sided deficits and speech are present on my exam, and I certainly did consider acute stroke, though there are no new deficits compared to prior, considered recrudescence, less likely intracranial hemorrhage. I considered metabolic and electrolyte derangements, kidney injury, liver disease, skin and soft tissue infections. No abdominal tenderness to significantly increase my concern for intra-abdominal infection. Given the patient's tachypnea, tachycardia, presumed infectious source she does meet criteria for sepsis alert, and per protocol we provided the patient with 30 cc/kg of lactated Ringer's, obtain blood cultures, lactate, and other laboratory studies to include CBC, CMP, VBG, troponin, and will obtain a chest x-ray, EKG, and provide the patient with broad-spectrum antibiosis to include cefepime, azithromycin, and vancomycin. I will obtain MRSA, COVID, and sputum cultures for respiratory workup. ED Course: I independently interpreted the patient's laboratory studies, which are most notable for an elevated lactate to 3.4. She does not have a leukocytosis but does have a mild anemia. No significant electrolyte derangements, creatinine 1.6, urinalysis with pyuria but no other concerning infectious findings such as nitrates or bacteria. The patient received a total of 2 L of IV fluids (30 cc/kg) as well as her antibiotics with improvement in her blood pressure to 99/52 with a MAP of 68. A very limited bedside ultrasound was performed as noted, with unfortunately difficult windows. No obvious pericardial effusion, hyperdynamic. Ultimately, given the improvement in her blood pressure with fluids we elected to hold on vasopressors. The patient's chest x-ray was similarly limited by positioning and compliance with deep breath, but does show questionable left perihilar opacity which could represent a source for her sepsis. I reached out to the admitting hospitalist who is graciously accepted this patient for admission to their service for ongoing workup and management. She remained hemodynamically improved while under my care and was transferred from this department without incident. Stacey Zaidi MD HPI: This is a 63-year-old female patient with a history of CVA with residual speech and right sided body deficits, suprapubic catheter and UTI, diabetes, and bipolar disorder who is presenting for evaluation from her facility for altered mental status, respiratory distress. The facility noted this morning that the patient was not responding as typical for her, and noted junky respirations. They are concerned for aspiration pneumonia or a recurrent UTI. She was brought in by EMS, and unfortunately history from the patient is limited by her altered mental status and her speech difficulties. She reports to me that she is not experiencing any pain, she does wear oxygen at home which is in place. No known changes to her health recently, no fever reported by EMS or the facility. Exam: Gen: Drowsy, awakens to loud voice and responds to simple questions and commands HEENT: Non-icteric sclera Neck: Supple Lungs: The patient is tachypneic with audible gurgling/rhonchorous respirations from doorway. Lung sounds reveal left greater than right sided rhonchi CV: Appears well perfused, though the patient is mildly tachycardic and hypotensive with an initial blood pressure of 88/40 Abdomen: Non-distended, soft MSK: Moves 4 extremities without apparent limitation in ROM, no peripheral edema noted Skin: Visualized skin without rashes, cyanosis. Neuro: Normal Gait, no obvious focal deficits or facial asymmetry. Speaks in full, clear sentences. Psych: Appropriate for situation. Related Data Home Medications ?Medication ?Instructions ?Recorded ?Confirmed mirtazapine 15 mg tablet 15 mg PO QHS 03/26/20 05/09/24 lamotrigine 25 mg tablet (Lamictal) 50 mg (2 x 25 mg) PO DAILY #1 tab 04/08/20 05/09/24 metformin 500 mg tablet 500 mg PO DAILY 12/20/20 05/09/24 lactase 3,000 unit tablet (Lactaid) 9,000 unit PO TID 06/22/21 05/09/24 acetaminophen 500 mg tablet 500 mg PO BID 06/01/22 05/09/24 dulaglutide 1.5 mg/0.5 mL 1 device subcut DIRECTED 06/01/22 05/09/24 subcutaneous pen injector (Trulicity) fluticasone propionate 50 1 spray intranasal BID 06/01/22 05/09/24 mcg/actuation nasal spray,suspension (Flonase Allergy Relief) B-complex with vitamin C 1 cap PO DAILY 11/09/22 05/09/24 carbidopa 25 mg-levodopa 100 mg 1 tab PO QID 11/09/22 05/09/24 tablet levothyroxine 100 mcg tablet 100 mcg PO QHS 11/09/22 05/09/24 atorvastatin 20 mg tablet 20 mg PO QPM #0 tabs 11/28/22 05/09/24 lorazepam 0.5 mg tablet 0.5 mg PO BID 12/24/22 05/09/24 gabapentin 600 mg tablet 600 mg PO BID 01/19/23 05/09/24 lidocaine 5 % topical patch 1 patch topical Q24H #0 ea 01/19/23 05/09/24 quetiapine 100 mg tablet 100 mg PO TID 01/19/23 05/09/24 simethicone 180 mg capsule 180 mg PO TID 01/19/23 05/09/24 trazodone 50 mg tablet 50 mg PO BID 01/19/23 05/09/24 omeprazole 20 mg capsule,delayed 40 mg PO DAILY 07/23/23 05/09/24 release bupropion HCl 150 mg 24 hr tablet, 150 mg PO DAILY 12/11/23 05/09/24 extended release (Wellbutrin XL) ferrous gluconate 324 mg (37.5 mg 324 mg PO DAILY 12/11/23 05/09/24 iron) tablet loratadine 10 mg tablet (Claritin) 10 mg PO DAILY 12/11/23 05/09/24 magnesium gluconate 12.5 mg 500 mg PO BID 12/11/23 05/09/24 magnesium (250 mg) tablet mirabegron 25 mg tablet,extended 50 mg PO DAILY 12/11/23 05/09/24 release 24 hr (Myrbetriq) polyethylene glycol 3350 17 gram 17 g PO BID 12/11/23 05/09/24 oral powder packet (Miralax) potassium chloride 10 mEq 10 meq PO DAILY 12/11/23 05/09/24 tablet,extended release(part/cryst) (Klor-Con M) ropinirole 0.5 mg tablet 0.5 mg PO QHS 12/11/23 05/09/24 tamsulosin 0.4 mg capsule 0.4 mg PO DAILY 12/11/23 05/09/24 tramadol 50 mg tablet 50 mg PO HS 12/11/23 05/09/24 nitrofurantoin 50 mg PO DAILY 03/26/24 05/09/24 monohydrate/macrocrystals 100 mg capsule (Macrobid) Lactobacillus acidophilus-pectin 100 cap PO BID 05/09/24 05/09/24 capsule albuterol sulfate 90 mcg/actuation 1 puff inhalation BID 05/09/24 05/09/24 aerosol inhaler (Ventolin HFA) cranberry extract 500 mg capsule 500 mg PO DAILY 05/09/24 05/09/24 (Cranberry Concentrate) ipratropium 0.5 mg-albuterol 3 mg 3 ml inhalation BID 05/09/24 05/09/24 (2.5 mg base)/3 mL nebulization soln lactulose 10 gram/15 mL oral 10 g PO DAILY 05/09/24 05/09/24 solution Previous Rx's ?Medication ?Instructions ?Recorded lamotrigine 25 mg tablet (Lamictal) 50 mg (2 x 25 mg) PO DAILY #1 tab 04/08/20 atorvastatin 20 mg tablet 20 mg PO QPM #0 tabs 11/28/22 lidocaine 5 % topical patch 1 patch topical Q24H #0 ea 01/19/23 Allergies Allergy/AdvReac Type Severity Reaction Status Date / Time naproxen (From Aleve) Allergy Unknown Itching Unverified 05/09/24 11:34 Penicillins Allergy Unknown Itching Unverified 05/09/24 11:34 propoxyphene Allergy Unknown Itching Unverified 05/09/24 11:34 Sulfa (Sulfonamide Allergy Unknown Itching Unverified 05/09/24 11:34 Antibiotics) methadone Allergy Nausea Verified 05/09/24 11:34 General Stated Complaint: AMS/LOC RUBENS: 2 Course Vital Signs Vital signs: Vital Signs Pulse Oximetry 98 05/09/24 10:46 Temperature 36.3 C L 05/09/24 10:55 Temperature Source Axillary 05/09/24 10:55 Pulse 103 H 05/09/24 10:55 Pulse 103 H 05/09/24 10:54 Respiratory Rate 12 05/09/24 10:55 Respiratory Effort Non-Labored, Short of Breath, Labored 05/09/24 10:55 Respiratory Depth Deep 05/09/24 10:55 Blood Pressure 92/50 L 05/09/24 10:55 Blood Pressure Mean 64 05/09/24 10:54 Blood Pressure Position Supine 05/09/24 10:55 Pulse Oximetry 96 05/09/24 10:55 Oxygen Delivery Method Nasal Cannula 05/09/24 10:55 Oxygen Flow Rate 2 05/09/24 10:55 Lab/Test Results Lab/Test Results: 05/09/24 10:56 Blood Blood Culture - Pending 05/09/24 10:56 Blood Blood Culture - Pending Medical Decision Making Quality:SDOH Health Related Social Needs: No Data to Display Critical Care Time Critical Care Time Critical Care Time: Yes Total Critical Care Time: 40 Attestation: Upon my evaluation, this patient had a high probability of imminent or life-threatening deterioration due to lactic acidosis, hypotension due to sepsis which required my direct attention, intervention, and personal management. I have personally provided 40 minutes of critical care time exclusive of time spent on separately billable procedures. Time includes review of laboratory data, radiology results, discussion with consultants, and monitoring for potential decompensation. Interventions were performed as documented above. Stacey Zaidi MD [facility] All Active Problems (Updated 05/09/24 @ 14:53 by Stacey Zaidi MD) Sepsis (Acute) Pneumonia (Acute) Severe sepsis (Acute) Diabetes mellitus type 2, insulin dependent (Acute) Diarrhea (Acute) Bacteremia (Acute) UTI (urinary tract infection) (Acute) Hypoalbuminemia (Acute) Hyperglycemia (Acute) High anion gap metabolic acidosis (Acute) Anemia (Chronic) Advanced care planning/counseling discussion (Acute) Gallstones (Acute) Tardive dyskinesia (Acute) Parkinsonism (Acute) Bipolar 1 disorder (Chronic) Bipolar affective disorder, current episode depressed (Acute) rule out bipolar disorder reported by patient. Antiepileptics maybe preventing manic episode. Major depressive disorder, recurrent, severe with psychotic features (Acute) Current presentation is depression. She may have bipolar affective disorder. Ambulatory dysfunction (Chronic) Hemiparesis affecting right side as late effect of cerebrovascular accident (Chronic) Dysphagia as late effect of cerebrovascular accident (CVA) (Chronic) Dysarthria as late effect of cerebrovascular accident (CVA) (Acute) Medical History Acute bronchitis Diarrhea Abdominal bloating Abdominal pain Pyelonephritis Microcytic anemia Emphysematous pyelonephritis Hydronephrosis of right kidney Pyuria due to bacterial urinary tract infection Arthritis of left shoulder region Left rotator cuff tear Cough Ileus History of stroke Palliative care encounter Diverticulosis Nephrolithiasis Uterine mass likely a fibroid Cholelithiasis with acute cholecystitis s/p cholecystostomy and stone extraction in 2014 ([facility]), tube now pulled. 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 UTI (urinary tract infection) Chronic chest pain Constipation Staghorn calculus Autoimmune disorder Neck pain UTI (urinary tract infection) Aphasia as late effect of cerebrovascular accident Surgical History History of extraction of renal calculus 12/13/2018 - [facility] S/P cystoscopy with ureteral stent placement [facility] 11/2018 History of hip surgery right H/O wrist surgery H/O foot surgery History of lumbosacral spine surgery Abnormal cholangiogram H/O cervical spine surgery Status post creation of urethral sling by suprapubic approach Family History Mother Stroke Social History Smoking/Tobacco Use Status: Former Tobacco Use Smoking risk assessment performed?: Yes Alcohol Intake: former Drug use: Current Sobriety Substance use type: former substance user and IV drugs Housing: group home Number of Children: 5 Education Level: elementary school Details: 6th grade, special ed, left school age 16. Current gender identity: female What is your relationship status?: Panel score (0-1 are the most socially isolated patients): 0 What type of physical activity do you participate in: none Do you feel safe at home: Yes Do you feel safe in your relationship?: Yes Additional Social history: The [facility]
[2024-05-09] MEDS: Lactated Ringers 500 ML 1000 ML IV (11:10)
[2024-05-09 11:20] LABS: BE (Venous) -4 mmol/L (-2-3); HCO3 (Venous) 22 mmol/L (23-28); O2 Sat (Venous) 72 %; TCO2 (Venous) 21 mmol/L (24-29); pCO2 (Venous) 44 mmHg (41-51); pH (Venous) 7.32 (7.31-7.41); pO2 (Venous) 39 mmHg
[2024-05-09 11:23] LABS: Abs Immature Grans 0.01 10^3/uL (0.0-0.06); Absolute Basophil Count 0.02 10^3/uL (0.0-0.2); Absolute Eosinophil Count 0.02 10^3/uL (0.0-0.7); Absolute Lymphocyte Count 0.55 10^3/uL (1.2-3.4); Absolute Monocyte Count 0.41 10^3/uL (0.1-0.8); Absolute Neutrophil Count 3.49 10^3/uL (1.2-6.7); Basophils % 0.4 %; Eosinophils % 0.4 %; HCT 34.2 % (36.0-46.0); HGB 10.4 g/dL (11.2-15.7); Immature Grans % 0.2 %; Lymphocytes % 12.2 %; MCH 30.1 pg (27.0-33.0); MCHC 30.4 % (32.0-36.0); MCV 99 fL (80-95); MPV 9.5 fL (8.0-11.0); Monocytes % 9.1 %; Neutrophils % 77.7 %; Platelet Count 233 10^3/uL (130-400); RBC 3.46 10^6/uL (3.93-5.22); RDW-SD 75.1 fL
[2024-05-09] MEDS: AZITHROMYCIN 500 MG in Normal Saline 250 ML 250 MG IVPB (11:23)
[2024-05-09] MEDS: CEFEPIME 1 GM in Normal Saline 50 ML IVPB (11:23)
[2024-05-09 11:31] LABS: Lactate 3.8 mmol/L (0.6-1.4)
--- NOTE | 2024-05-09 11:41 | DI.RAD_ITS ---
Exam(s) XR PORTABLE CHEST AP EXAM: XR PORTABLE CHEST AP CLINICAL HISTORY: Eval for PNA TECHNIQUE: 2D digital imaging was performed of the chest. One image was obtained. An AP view was ob tained. COMPARISON: CR,XR XR PORTABLE CHEST AP POST LINE from 02/08/[address] CHEST/ABD/PEL W from 03/26/2024 FINDINGS: There is poor inspiration. The patient's right hand is overlying the right lung base. MEDIASTINUM: Normal. HEART: Normal. PULMONARY VASCULATURE: Normal. LUNGS: There is a question of a left perihilar infiltrate. The visualized right lung appears clear. PLEURAL SPACE: No pleural effusion or pneumothorax. BONE:Within normal limits for the patient's age. OTHER FINDINGS:Normal. IMPRESSION: 1. Examination limited by poor inspiration and patient positioning. A repeat PA and lateral view wit hin the department should be considered for further evaluation. 2. Question of a left perihilar infiltrate. DATA REPOSITORY: RADIATION DOSE DELIVERED:
[2024-05-09] MEDS: VANCOMYCIN/WATER (PEG) 1 GM/200 ML BAG IV (11:45)
[2024-05-09 11:51] LABS: Diff Comment RBC Morph Reviewed
[2024-05-09 11:52] LABS: Anisocytosis 1+; Hypochromasia 1+; Polychromasia Present
[2024-05-09 11:59] LABS: ALT 9 U/L (14-59); AST 79 U/L (15-37); Albumin 2.1 g/dL (3.4-5.0); Alkaline Phosphatase 146 U/L (46-116); Anion Gap 9.8 mmol/L (3-11); BUN 17 mg/dL (7-18); Bilirubin, Total 0.81 mg/dL (0.2-1.0); CO2 24.2 mmol/L (21.0-32.0); CREATININE 1.6 mg/dL (0.55-1.02); Calcium 9.5 mg/dL (8.5-10.1); Chloride 105 mmol/L (98-107); Estimated GFR 36.01 (mL/min/1.73m2); Glucose 215 mg/dL (74-106); Sodium 139 mmol/L (136-145); Total Protein 7.5 g/dL (6.4-8.2); Troponin I < 50 ng/L (< or =60)
[2024-05-09] MEDS: Lactated Ringers 1,000 ML 1000 ML IV (12:00)
[2024-05-09 12:03] LABS: Bilirubin Small (Negative); Blood Trace-intact (Negative); Clarity Cloudy (Clear); Glucose Negative (Negative); Ketones 15 mg/dL (Negative); Leukocyte Esterase Small (Negative); Nitrite Negative (Negative); Specific Gravity >= 1.030 (1.005-1.025); pH 7.5 (5-8)
[2024-05-09 12:11] LABS: Bacteria Negative HPF (Negative); C & S Indicated? C&S Done As Ordered; Casts Negative LPF (Negative); Crystals Negative HPF (Negative); Epithelial Cells Negative HPF (Negative); Mucus Negative (Negative); Other Cells Negative (Negative); RBC Negative HPF (0-2); WBC >50 HPF (0-5)
[2024-05-09 12:27] LABS: Procalcitonin 1.7 ng/mL
[2024-05-09 12:33] LABS: Source Nasopharynx
--- NOTE | 2024-05-09 12:52 | W.PM.HP.N ---
Date of service: 05/09/24 Time of Service: 13:00 Assessment and Plan Assessment and plan (1) Severe sepsis: Status: Acute Assessment and plan: Patient presented with tachypnea and tachycardia with a lactic of 3.4 as well as hypotension that was responsive to fluid resuscitation. The patient had a congested cough with x-ray showing questionable perihilar opacity pointing to pneumonia as the source of infection. Fluid resuscitation in the ED LR - 2l Continue Cefepime and Vancomycin Blood cultures results pending Sputum cultures with result pending Urine cultures with result pending (2) Pneumonia: Status: Inactive Assessment and plan: As above Continue home O2 at 2 L As needed nebs Incentive spirometry Vibra pep RT consultation (3) Elevated lactic acid level: Status: Acute Assessment and plan: Lactic 4.5 after initial value of 3.8 and fluid resuscitation, might be d/t delayed clearance and hypoperfusion, medicines Will hold metformin Slow IVF hydration overnight (4) Diabetes mellitus type 2, insulin dependent: Status: Acute Assessment and plan: On Trulicity and metformin at home Will continue metformin Hold Trulicity Glucose before meals and at bedtime with sliding scale insulin coverage (5) UTI (urinary tract infection): Status: Acute Assessment and plan: Suprapubic catheter from home Urine cultures pending, but patient is on cefepime and Vanco for severe sepsis On prophylactic antibiotics to be verified but holding off now (6) Parkinsonism: Status: Acute Assessment and plan: On Sinemet (7) Bipolar 1 disorder: Status: Chronic Assessment and plan: On Seroquel and trazodone home doses (8) Decubitus ulcer: Status: Acute Assessment and plan: Turn Q 2 wound consult Mepilex to buttocks (9) Hypothyroidism: Assessment and plan: On home dose levothyroxine Discussed with Dr. 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 On arrival to the ED the patient was tachypneic, tachycardic and hypotensive. The patient is on home oxygen at 2 L and is still oxygenating well. Ringer's lactate was initiated at 30 mL/kg for total of 2 L given with hypotension responded to fluid resuscitation. Workup in ED was significant for leukocytosis, lactic at 3.4, urinalysis showing small amoutn of leukocyte esterase w/o nitrite, Cr of 1.6 around baseline. Chest XR pointed to questionable perihilar opacity. Blood cultures were drawn and pending, urine culture pending, MRSA swab and sputum cultures pending. The patient is Fluvid negative. The hospitalist was consulted and the patient was admitted to the medical surgical floor for severe sepsis and pneumonia. Differential considered were acute stroke without new deficit when compared to prior, pulmonary emboli without hypoxemia is mostly unlikely, urinary tract infection?culture pending and most likely colonized. Will consider the routine diagnostic of severe sepsis with pneumonia as a source with qualifying factors of tachypnea, tachycardia, lactic at 3.4, with hypotension responsive to fluid resuscitation. When seen in the room, the patient was able to open eyes, will be coming by weakly squeezing my fingers with left hand and turn her head on command. The patient was able to answer question despite residuals speech compromise from previous CVA. The patient denied blurred vision, chest pain, nausea or vomiting, abdominal pain. The patient was able to stay focused to answer a few questions but most answered remained difficult to understand due to speech impairment. Review of Systems All systems reviewed & are unremarkable except as noted in HPI and below PFSH All Active Problems (Updated 05/09/24 @ 17:16 by Maria Isabel Saldana APRN) Decubitus ulcer (Acute) Elevated lactic acid level (Acute) Sepsis (Acute) Pneumonia (Acute) Severe sepsis (Acute) Diabetes mellitus type 2, insulin dependent (Acute) Diarrhea (Acute) Bacteremia (Acute) UTI (urinary tract infection) (Acute) Hypoalbuminemia (Acute) Hyperglycemia (Acute) High anion gap metabolic acidosis (Acute) Anemia (Chronic) Advanced care planning/counseling discussion (Acute) Gallstones (Acute) Tardive dyskinesia (Acute) Parkinsonism (Acute) Bipolar 1 disorder (Chronic) Bipolar affective disorder, current episode depressed (Acute) rule out bipolar disorder reported by patient. Antiepileptics maybe preventing manic episode. Major depressive disorder, recurrent, severe with psychotic features (Acute) Current presentation is depression. She may have bipolar affective disorder. Ambulatory dysfunction (Chronic) Hemiparesis affecting right side as late effect of cerebrovascular accident (Chronic) Dysphagia as late effect of cerebrovascular accident (CVA) (Chronic) Dysarthria as late effect of cerebrovascular accident (CVA) (Acute) Medical History Acute bronchitis Diarrhea Abdominal bloating Abdominal pain Pyelonephritis Microcytic anemia Emphysematous pyelonephritis Hydronephrosis of right kidney Pyuria due to bacterial urinary tract infection Arthritis of left shoulder region Left rotator cuff tear Cough Ileus History of stroke Palliative care encounter Diverticulosis Nephrolithiasis Uterine mass likely a fibroid Cholelithiasis with acute cholecystitis s/p cholecystostomy and stone extraction in 2014 ([facility]), tube now pulled. 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 UTI (urinary tract infection) Chronic chest pain Constipation Staghorn calculus Autoimmune disorder Neck pain UTI (urinary tract infection) Aphasia as late effect of cerebrovascular accident Surgical History History of extraction of renal calculus 12/13/2018 - [facility] S/P cystoscopy with ureteral stent placement [facility] 11/2018 History of hip surgery right H/O wrist surgery H/O foot surgery History of lumbosacral spine surgery Abnormal cholangiogram H/O cervical spine surgery Status post creation of urethral sling by suprapubic approach Family History Mother Stroke Social History Smoking/Tobacco Use Status: Former Tobacco Use Smoking risk assessment performed?: Yes Alcohol Intake: former Drug use: Current Sobriety 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 Current gender identity: female What is your relationship status?: Panel score (0-1 are the most socially isolated patients): 0 What type of physical activity do you participate in: none Do you feel safe at home: Yes Do you feel safe in your relationship?: Yes Additional Social history: [place] Meds Allergies and Home Medications Allergies Allergy/AdvReac Type Severity Reaction Status Date / Time naproxen (From Aleve) Allergy Unknown Itching Unverified 05/09/24 11:34 Penicillins Allergy Unknown Itching Unverified 05/09/24 11:34 propoxyphene Allergy Unknown Itching Unverified 05/09/24 11:34 Sulfa (Sulfonamide Allergy Unknown Itching Unverified 05/09/24 11:34 Antibiotics) methadone Allergy Nausea Verified 05/09/24 11:34 Home Medications ?Medication ?Instructions ?Recorded ?Confirmed ?Type mirtazapine 15 mg tablet 15 mg PO QHS 03/26/20 05/09/24 History lamotrigine 25 mg tablet (Lamictal) 50 mg (2 x 25 mg) PO DAILY #1 tab 04/08/20 05/09/24 Rx metformin 500 mg tablet 500 mg PO DAILY 12/20/20 05/09/24 History lactase 3,000 unit tablet (Lactaid) 9,000 unit PO TID 06/22/21 05/09/24 History acetaminophen 500 mg tablet 500 mg PO BID 06/01/22 05/09/24 History dulaglutide 1.5 mg/0.5 mL 1 device subcut DIRECTED 06/01/22 05/09/24 History subcutaneous pen injector (Trulicity) fluticasone propionate 50 1 spray intranasal BID 06/01/22 05/09/24 History mcg/actuation nasal spray,suspension (Flonase Allergy Relief) B-complex with vitamin C 1 cap PO DAILY 11/09/22 05/09/24 History carbidopa 25 mg-levodopa 100 mg 1 tab PO QID 11/09/22 05/09/24 History tablet levothyroxine 100 mcg tablet 100 mcg PO QHS 11/09/22 05/09/24 History atorvastatin 20 mg tablet 20 mg PO QPM #0 tabs 11/28/22 05/09/24 Rx lorazepam 0.5 mg tablet 0.5 mg PO BID 12/24/22 05/09/24 History gabapentin 600 mg tablet 600 mg PO BID 01/19/23 05/09/24 History lidocaine 5 % topical patch 1 patch topical Q24H #0 ea 01/19/23 05/09/24 Rx quetiapine 100 mg tablet 100 mg PO TID 01/19/23 05/09/24 History simethicone 180 mg capsule 180 mg PO TID 01/19/23 05/09/24 History trazodone 50 mg tablet 50 mg PO BID 01/19/23 05/09/24 History omeprazole 20 mg capsule,delayed 40 mg PO DAILY 07/23/23 05/09/24 History release bupropion HCl 150 mg 24 hr tablet, 150 mg PO DAILY 12/11/23 05/09/24 History extended release (Wellbutrin XL) ferrous gluconate 324 mg (37.5 mg 324 mg PO DAILY 12/11/23 05/09/24 History iron) tablet loratadine 10 mg tablet (Claritin) 10 mg PO DAILY 12/11/23 05/09/24 History magnesium gluconate 12.5 mg 500 mg PO BID 12/11/23 05/09/24 History magnesium (250 mg) tablet mirabegron 25 mg tablet,extended 50 mg PO DAILY 12/11/23 05/09/24 History release 24 hr (Myrbetriq) polyethylene glycol 3350 17 gram 17 g PO BID 12/11/23 05/09/24 History oral powder packet (Miralax) potassium chloride 10 mEq 10 meq PO DAILY 12/11/23 05/09/24 History tablet,extended release(part/cryst) (Klor-Con M) ropinirole 0.5 mg tablet 0.5 mg PO QHS 12/11/23 05/09/24 History tamsulosin 0.4 mg capsule 0.4 mg PO DAILY 12/11/23 05/09/24 History tramadol 50 mg tablet 50 mg PO HS 12/11/23 05/09/24 History nitrofurantoin 50 mg PO DAILY 03/26/24 05/09/24 History monohydrate/macrocrystals 100 mg capsule (Macrobid) Lactobacillus acidophilus-pectin 100 cap PO BID 05/09/24 05/09/24 History capsule albuterol sulfate 90 mcg/actuation 1 puff inhalation BID 05/09/24 05/09/24 History aerosol inhaler (Ventolin HFA) cranberry extract 500 mg capsule 500 mg PO DAILY 05/09/24 05/09/24 History (Cranberry Concentrate) ipratropium 0.5 mg-albuterol 3 mg 3 ml inhalation BID 05/09/24 05/09/24 History (2.5 mg base)/3 mL nebulization soln lactulose 10 gram/15 mL oral 10 g PO DAILY 05/09/24 05/09/24 History solution Exam Narrative Exam Narrative: Constitutional The patient is contracted in bed responsive to verbal stimuli, but unable to maintain sustain awareness Speech is impaired at baseline and words are mumbles, yes and no answers are understood Congested upper airway with weak cough HENMT: Head is atraumatic, normocephalic, no lymphadenopathy Neck: Normal ROM, no meningeal signs Neuro:alert and oriented to self. No new neurological focal deficit, previous right sided deficit, generalized weakness Resp: labored respiratory pattern, sat 100% on 2l/min of home O2 , bibasilar crackles on auscultation Cardio: regular rhythm, S1, S2, no murmur, capillary refill<3 sec., positive radial and pedal pulses GI: Abdomen is large, distended,but non-acute, soft and non tender, bowel sounds are present : Negative Costovertebral angle tenderness,suprapubic catheter in place Back/spine/Pelvis: No back tenderness, normal alignment Integumentary: Stage I and II decubitus ulcers to buttocks, non-stageable to left buttock Extremities: left foot with 3 areas of broken skin on dorsal aspect and on on sole Psych: RASS 0, congruent mood and normal affect. Results Labs 05/09/24 11:08 05/09/24 11:08 Labs: Laboratory Results - last 24 hr 05/09/24 05/09/24 05/09/24 11:08 11:50 12:28 WBC 4.50 RBC 3.46 L Hgb 10.4 L Hct 34.2 L MCV 99 H MCH 30.1 MCHC 30.4 L RDW 21.0 H Plt Count 233 MPV 9.5 Immature Gran % 0.2 Neutrophils % 77.7 Lymphocytes % 12.2 Monocytes % 9.1 Eosinophils % 0.4 Basophils % 0.4 Nucleated RBC % 0.0 Absolute Neutrophils 3.49 Absolute Lymphocytes 0.55 L Absolute Monocytes 0.41 Absolute Eosinophils 0.02 Absolute Basophils 0.02 RBC Morphology See Below Polychromasia Present Hypochromasia 1+ Anisocytosis 1+ VBG pH 7.32 VBG pCO2 44 VBG pO2 39 VBG HCO3 22 L VBG Total CO2 21 L VBG O2 Saturation 72 VBG Base Excess -4 L VBG Lactate 3.8 H* Sodium 139 Potassium 5.0 Chloride 105 Carbon Dioxide 24.2 Anion Gap 9.8 BUN 17 Creatinine 1.6 H Est GFR (CKD-EPI 2020) 36.01 Glucose 215 H Calcium 9.5 Total Bilirubin 0.81 AST 79 H ALT 9 L Alkaline Phosphatase 146 H Troponin I < 50 Total Protein 7.5 Albumin 2.1 L Procalcitonin 1.7 Urine Color Yellow Urine Clarity Cloudy Urine pH 7.5 Ur Specific [place] >= 1.030 H Urine Protein 30 H Urine Ketones 15 H Urine Blood Trace-intact H Urine Nitrite Negative Urine Bilirubin Small H Urine Urobilinogen 1.0 H Ur Leukocyte Esterase Small H Urine RBC Negative Urine WBC >50 H Ur Epithelial Cells Negative Urine Crystals Negative Urine Bacteria Negative Urine Casts Negative Urine Mucus Negative Urine Other Negative Ur Culture Indicated? C&S Done As Ordered Urine Glucose Negative COVID-19 Source Nasopharynx Last Vital Signs Temp 36.3 C L 05/09/24 10:55 Pulse 97 H 05/09/24 11:32 Resp 10 L 05/09/24 11:32 BP 82/62 L 05/09/24 11:32 Pulse Ox 98 05/09/24 12:04 Time Spent Time spent with Patient: >75 minutes Time was spent: preparing to see the patient(eg.review tests), obtaining and/or reviewing separately otained hiistory, ordering medications,tests, procedures, referring, communicating with other health memory care program director, indepentently interpreting results, counseling the patient and care coordination
[2024-05-09 13:05] LABS: COVID-19 PCR Negative (Negative)
[2024-05-09 13:46] LABS: MRSA PCR Negative (Negative)
[2024-05-09 14:11] LABS: Lactate 4.5 mmol/L (0.6-1.4)
[2024-05-09 14:32] LABS: Troponin I < 50 ng/L (< or =60)
--- NOTE | 2024-05-09 16:09 | PT.INIE ---
PT Notes Visit Reasons: Severe sepsis, pneumonia Physical Therapy Inpatient Initial Evaluation Date: 05/09/2024 Referring Doctor: Maria Isabel Saldana NP PT Orders: PT CONSULT: Safety Consult for D/C Precautions: Standard. Bed-bound. Full assist for all transfers. Patient Profile/Admitting Diagnosis: Ginger is a 63-year-old female long-term care resident of [facility] with previous stroke and parkinsonism who presented to the ED today 05/09/2024 due to altered mental status and junky sounding cough. Patient is admitted for mangement of severe sepsis, PNA, DM type II, and UTI. PMHX: All Active Problems (Updated 05/09/24 @ 16:18 by Maria Isabel Saldana APRN) Elevated lactic acid level (Acute) Sepsis (Acute) Pneumonia (Acute) Severe sepsis (Acute) Diabetes mellitus type 2, insulin dependent (Acute) Diarrhea (Acute) Bacteremia (Acute) UTI (urinary tract infection) (Acute) Hypoalbuminemia (Acute) Hyperglycemia (Acute) High anion gap metabolic acidosis (Acute) Anemia (Chronic) Advanced care planning/counseling discussion (Acute) Gallstones (Acute) Tardive dyskinesia (Acute) Parkinsonism (Acute) Bipolar 1 disorder (Chronic) Bipolar affective disorder, current episode depressed (Acute) rule out bipolar disorder reported by patient. Antiepileptics maybe preventing manic episode.Major depressive disorder, recurrent, severe with psychotic features (Acute) Current presentation is depression. She may have bipolar affective disorder.Ambulatory dysfunction (Chronic) Hemiparesis affecting right side as late effect of cerebrovascular accident (Chronic) Dysphagia as late effect of cerebrovascular accident (CVA) (Chronic) Dysarthria as late effect of cerebrovascular accident (CVA) (Acute) Medical History Acute bronchitis Diarrhea Abdominal bloating Abdominal pain Pyelonephritis Microcytic anemia Emphysematous pyelonephritis Hydronephrosis of right kidney Pyuria due to bacterial urinary tract infection Arthritis of left shoulder region Left rotator cuff tear Cough Ileus History of stroke Palliative care encounter Diverticulosis Nephrolithiasis Uterine mass likely a fibroid Cholelithiasis with acute cholecystitis s/p cholecystostomy and stone extraction in 2014 ([facility]), tube now pulled. Gallbladder still in place Steroid dependent Chronic adrenal insufficiency Hypothyroidism Hemiparesis affecting right side as late effect of cerebrovascular accident (CVA) Lumbar disc disease Anxiety Hepatitis C Bipolar 1 disorder IDDM (insulin dependent diabetes mellitus) Hypertension History of multiple cerebrovascular accidents (CVAs) Obesity (BMI 30.0-34.9) Neurogenic bladder Static encephalopathy [employer]GER [employer] vasculitis UTI (urinary tract infection) Chronic chest pain Constipation Staghorn calculus Autoimmune disorder Neck pain UTI (urinary tract infection) Aphasia as late effect of cerebrovascular accident Surgical History History of extraction of renal calculus 12/13/2018 - [facility] S/P cystoscopy with ureteral stent placement [facility] 11/2018History of hip surgery right H/O wrist surgery H/O foot surgery History of lumbosacral spine surgery Abnormal cholangiogram H/O cervical spine surgery Status post creation of urethral sling by suprapubic approach Social History/Home Situation: Bed-bound LTC SNF resident requiring mechanical lift for all transfers. Now requires help with feeding self. Modified independent with grooming after set up. Total assist with all bed mobility and essential transfers. Equipment Owned/DME: LTC SNF resident Subjective: Speech more unclear compared to patient admission a year ago. Objective: General Observation: Supine in bed. Right UE in abnormal flexion synergy. R UE muscles atrophic. Telemetry monitoring in place. Oxygen supplementation via NC. Mental Status: Drowsy. Speech significantly slurred. Pain: Denies any in L UE with exercise Vital Signs: Closely monitored via tele ROM: Right Upper Extremity: Grade 3 spasticity, abnormal flexion synergy prominent Left Upper Extremity: Shoulder Flexion WFL. Shoulder abduction WFL. Elbow flexion WFL. Wrist flexion WFL. Functional opening and closing of hand WFL. Right Lower Extremity: No movement allowed Left Lower Extremity: Hip flexion allows less than 25% of available range of motion. Hip abduction less than 25% of available range of motion. Knee flexion allows about 30 degrees. Ankle dorsiflexion to neutral only. Ankle plantarflexion 10 degrees from neutral. Strength: Right Upper Extremity: Shoulder flexors 0/5. Shoulder abductors 0/5. Elbow flexors 0/5. Elbow extensors 0/5. Quartz Cutter strong. Left Upper Extremity: Shoulder flexors 4-/5. Shoulder abductors 4-/5. Elbow flexors 4-/5. Elbow extensors 4-/5. Quartz Cutter strong. Right Lower Extremity: Hip flexors 0/5. Hip abductors 0/5. Knee flexors 0/5. Knee extensors 0/5. Ankle dorsiflexors 0/5. Ankle plantarflexors 0/5. Left Lower Extremity: Hip flexors 2-/5. Hip abductors 2-/5. Knee flexors 2-/5. Knee extensors 2-/5. Ankle dorsiflexors 3-/5. Ankle plantarflexors 3-/5. Bed Mobility/Transfers: Total assist Gait: N/A. Bed-bound. Balance: Static Sitting: N/A. Bed-bound. Dynamic Sitting: N/A. Bed-bound. Static Standing: N/A. Bed-bound. Dynamic Standing: N/A. Bed-bound. Special Tests: Mobility Limitations Standardized Measure [facility] clicks Basic Mobility Inpatient Short Form: Raw Score: 6 CMS Score: 100% deficit Informed Consent/Education: Patient was instructed in purpose of PT consult and plan of care. Agreeable to proceed with established PT POC to achieve personal goals. Assessment: Patient presents with clinical signs and symptoms consistent with current/admitting diagnoses that have resulted to mobility limitations, gait instability, generalized weakness, and overall ADL decline as demonstrated by the following impairment level findings: 1. Decreased strength to B UE/LE major muscle groups with R UE/LE spastic and unable to move 2. Bed-bound Impairments are contributing to the following functional limitations: 1. Total dependence with bed mobility skills Patient is assessed as a 63512 high complexity based on the following: History: 62-year-old female with past medical history as indicated above Examination: Demonstrable impairment in strength, balance, and mobility level with underlying impairments and functional limitations as exhibited above as well as deficit score of 100% utilizing the [facility] Mobility Inpatient Short Form Presentation: Evolving Decision Makin moderate complexity Goals: Goals X1 week 1. Patient will demonstrate 100% mastering of left shoulder resistance exercises utilizing yellow Thera-Band after 3 sessions in order to maintain ability to perform feeding and grooming tasks. 2. Patient will demosntrate moderat assistt with rolling to R side using L good hand during positioning activity to allow for pressure relief and facilitate care task performance. Plan of Care/Treatment Plan: 1x/day, 2 days/week x 2 weeks. Plan of care has been reviewed with the [employer] providing the service under Physical Therapy direction. Initiate Physical Therapy intervention for pain management as needed, strengthening, bed mobility, transfers, gait, stairs, balance training, and use of assistive device. TODAY's PT INTERVENTION: PT evaluation Patient positioning from supine to a quarterturn to the R with assisatnce of Nurse Keita. PROM to R UE/LE DISCHARGE RECOMMENDATIONS: [] Home with no services [] [] Home with services [specify] [] Home with outpatient PT [] [] SNF for continued rehabilitation [] [] Alf Care [] [] SNF versus LTC based on ability to participate and progress [] [X] Return to SNF when medically cleared by hospitalist TREATMENT CODE/TIME: 31883 x 19 minutesfor 1 unit (16:09-16:28) PM. Thank you for the opportunity to participate in the care of this patient. Aydee Medrano PT, DPT, CLT [facility] [place], [place]
[2024-05-09] MEDS: Enoxaparin 40 MG/0.4 ML SYR SC (16:14)
--- NOTE | 2024-05-09 16:28 | RESPIRATORY ---
RT Initial Evalutation/Assessment Start: 05/09/24 15:28 Freq: .q shift and prn Status: Active Protocol: Document 05/09/24 16:15 MF (Rec: 05/09/24 16:26 [id number]) RT Assessment OXYGEN HISTORY: Respiratory Breath Sounds Pulse Rate <100 Respiratory Rate <18 Respiratory Therapy Score Total 0 Assessment and Plan Note Patient unable to answer questions. Sp02 100% on baseline 02 of 2L, HR 96, RR 12. Patient able to blow into acapella x2, unable to follow commands with Incentive Spirometer. Encouraged the patient to cough and clear. notified.
--- NOTE | 2024-05-09 17:01 | W.PC.ACHO ---
Registration Status: Primary Language: Preferred Language: ED Information & Data Chief Complaint AMS/LOC 05/09/24 11:12 Triage Note EMS reports PT is altered 05/09/24 10:49 [facility]. Pale, increased difficulty of breathing, potential UTI/resp sepsis. Medical / Surgical History (Last Reviewed 03/26/24 @ 15:23 by Elfego Chino DO) Acute bronchitis Diarrhea Abdominal bloating Abdominal pain Pyelonephritis Microcytic anemia Emphysematous pyelonephritis Hydronephrosis of right kidney Pyuria due to bacterial urinary tract infection Arthritis of left shoulder region Left rotator cuff tear Cough Ileus History of stroke Palliative care encounter Diverticulosis Nephrolithiasis Uterine mass Cholelithiasis with acute cholecystitis Steroid dependent Chronic adrenal insufficiency Hypothyroidism Hemiparesis affecting right side as late effect of cerebrovascular accident (CVA) Lumbar disc disease Anxiety Hepatitis C Bipolar 1 disorder IDDM (insulin dependent diabetes mellitus) Hypertension History of multiple cerebrovascular accidents (CVAs) Obesity (BMI 30.0-34.9) Neurogenic bladder Static encephalopathy PLUSH CUTTER vasculitis UTI (urinary tract infection) Chronic chest pain Constipation Staghorn calculus Autoimmune disorder Neck pain UTI (urinary tract infection) Aphasia as late effect of cerebrovascular accident (Last Reviewed 03/26/24 @ 15:23 by Elfego Chino DO) History of extraction of renal calculus S/P cystoscopy with ureteral stent placement History of hip surgery H/O wrist surgery H/O foot surgery History of lumbosacral spine surgery Abnormal cholangiogram H/O cervical spine surgery Status post creation of urethral sling by suprapubic approach Most Recent Vital Signs Temperature 36.6 C 05/09/24 15:27 Temperature Source Axillary 05/09/24 10:55 Pulse 97 H 05/09/24 15:27 Pulse Rhythm Regular 05/09/24 15:27 Pulse 93 H 05/09/24 14:05 Respiratory Rate 15 05/09/24 15:27 Respiratory Effort Short of Breath, Accessory Muscle Use, Incrsd Work of Breathing 05/09/24 15:27 Respiratory Depth Shallow 05/09/24 15:27 Respiratory Pattern Irregular 05/09/24 15:27 Blood Pressure 90/61 L 05/09/24 15:27 Blood Pressure Mean 76 05/09/24 14:05 Blood Pressure Position Supine 05/09/24 10:55 Pulse Oximetry 98 05/09/24 15:27 Oxygen Delivery Method Nasal Cannula 05/09/24 15:27 Oxygen Flow Rate 2 05/09/24 15:27 Comment Unable to assess height or pain due to patient not answering clearly/fully 05/09/24 15:27 Allergies naproxen (From Aleve) Allergy (Unknown, Unverified 05/09/24 11:34) Itching Penicillins Allergy (Unknown, Unverified 05/09/24 11:34) Itching propoxyphene Allergy (Unknown, Unverified 05/09/24 11:34) Itching Sulfa (Sulfonamide Antibiotics) Allergy (Unknown, Unverified 05/09/24 11:34) Itching methadone Allergy (Verified 05/09/24 11:34) Nausea Active Medications Generic Name Dose Route Start Last Admin Trade Name Freq PRN Reason Stop Dose Admin Carbidopa/Levodopa 1 tab 05/09/24 16:00 05/09/24 16:09 Carbidopa 25/Levodopa 100 Tab PO Not Given QID HANSA Enoxaparin Sodium 40 mg 05/09/24 16:00 05/09/24 16:14 Enoxaparin 40 Mg/0.4 Ml Syr SC 40 mg Q24H HANSA Administration Lactase 3 cap 05/09/24 14:41 05/09/24 16:08 Lactase Enzyme Cap PO Not Given TID HANSA Quetiapine Fumarate 100 mg 05/09/24 14:41 05/09/24 16:08 Quetiapine 100 Mg Tab PO Not Given TID HANSA IV IV Catheter Type [Left Upper Saline Lock arm] IV Catheter Type [Left Peripheral IV Antecubital] IV Catheter Gauge [Left Upper 20 arm] IV Catheter Gauge [Left 18 Antecubital] Diet Orders Category Date Time Status Diabetes Consistent CHO/Heart Healthy [DIET] Nutrition 05/09/24 Dinner Active Diagnostics 05/09/24 05/09/24 05/09/24 Range/Units 14:02 12:28 12:26 WBC (4.4-10.8) 10^3/uL RBC (3.93-5.22) 10^6/uL Hgb (11.2-15.7) g/dL Hct (36.0-46.0) % MCV (80-95) fL MCH (27.0-33.0) pg MCHC (32.0-36.0) % RDW (11.7-14.6) % Plt Count (130-400) 10^3/uL MPV (8.0-11.0) fL Immature Gran % % Neutrophils % % Lymphocytes % % Monocytes % % Eosinophils % % Basophils % % Nucleated RBC % (0.0-0.3) % Absolute Neutrophils (1.2-6.7) 10^3/uL Absolute Lymphocytes (1.2-3.4) 10^3/uL Absolute Monocytes (0.1-0.8) 10^3/uL Absolute Eosinophils (0.0-0.7) 10^3/uL Absolute Basophils (0.0-0.2) 10^3/uL RBC Morphology Polychromasia Hypochromasia Anisocytosis VBG pH (7.31-7.41) VBG pCO2 (41-51) mmHg VBG pO2 mmHg VBG HCO3 (23-28) mmol/L VBG Total CO2 (24-29) mmol/L VBG O2 Saturation % VBG Base Excess (-2-3) mmol/L VBG Lactate 4.5 H* (0.6-1.4) mmol/L Sodium (136-145) mmol/L Potassium (3.5-5.1) mmol/L Chloride (98-107) mmol/L Carbon Dioxide (21.0-32.0) mmol/L Anion Gap (3-11) mmol/L BUN (7-18) mg/dL Creatinine (0.55-1.02) mg/dL Est GFR (CKD-EPI 2020) (mL/min/1.73m2) Glucose (74-106) mg/dL Calcium (8.5-10.1) mg/dL Total Bilirubin (0.2-1.0) mg/dL AST (15-37) U/L ALT (14-59) U/L Alkaline Phosphatase (46-116) U/L Troponin I < 50 (< or =60) ng/L Total Protein (6.4-8.2) g/dL Albumin (3.4-5.0) g/dL Procalcitonin ng/mL Urine Color (Yellow) Urine Clarity (Clear) Urine pH (5-8) Ur Specific [place] (1.005-1.025) Urine Protein (Neg-Trace) mg/dL Urine Ketones (Negative) mg/dL Urine Blood (Negative) Urine Nitrite (Negative) Urine Bilirubin (Negative) Urine Urobilinogen (Up to 0.2) mg/dL Ur Leukocyte Esterase (Negative) Urine RBC (0-2) HPF Urine WBC (0-5) HPF Ur Epithelial Cells (Negative) HPF Urine Crystals (Negative) HPF Urine Bacteria (Negative) HPF Urine Casts (Negative) LPF Urine Mucus (Negative) Urine Other (Negative) Ur Culture Indicated? Urine Glucose (Negative) mg/dL COVID-19 Source Nasopharynx SARS-CoV-2 (PCR) Negative (Negative) MRSA (TEM-PCR) Negative (Negative) 05/09/24 05/09/24 Range/Units 11:50 11:08 WBC 4.50 (4.4-10.8) 10^3/uL RBC 3.46 L (3.93-5.22) 10^6/uL Hgb 10.4 L (11.2-15.7) g/dL Hct 34.2 L (36.0-46.0) % MCV 99 H (80-95) fL MCH 30.1 (27.0-33.0) pg MCHC 30.4 L (32.0-36.0) % RDW 21.0 H (11.7-14.6) % Plt Count 233 (130-400) 10^3/uL MPV 9.5 (8.0-11.0) fL Immature Gran % 0.2 % Neutrophils % 77.7 % Lymphocytes % 12.2 % Monocytes % 9.1 % Eosinophils % 0.4 % Basophils % 0.4 % Nucleated RBC % 0.0 (0.0-0.3) % Absolute Neutrophils 3.49 (1.2-6.7) 10^3/uL Absolute Lymphocytes 0.55 L (1.2-3.4) 10^3/uL Absolute Monocytes 0.41 (0.1-0.8) 10^3/uL Absolute Eosinophils 0.02 (0.0-0.7) 10^3/uL Absolute Basophils 0.02 (0.0-0.2) 10^3/uL RBC Morphology See Below Polychromasia Present Hypochromasia 1+ Anisocytosis 1+ VBG pH 7.32 (7.31-7.41) VBG pCO2 44 (41-51) mmHg VBG pO2 39 mmHg VBG HCO3 22 L (23-28) mmol/L VBG Total CO2 21 L (24-29) mmol/L VBG O2 Saturation 72 % VBG Base Excess -4 L (-2-3) mmol/L VBG Lactate 3.8 H* (0.6-1.4) mmol/L Sodium 139 (136-145) mmol/L Potassium 5.0 (3.5-5.1) mmol/L Chloride 105 (98-107) mmol/L Carbon Dioxide 24.2 (21.0-32.0) mmol/L Anion Gap 9.8 (3-11) mmol/L BUN 17 (7-18) mg/dL Creatinine 1.6 H (0.55-1.02) mg/dL Est GFR (CKD-EPI 2020) 36.01 (mL/min/1.73m2) Glucose 215 H (74-106) mg/dL Calcium 9.5 (8.5-10.1) mg/dL Total Bilirubin 0.81 (0.2-1.0) mg/dL AST 79 H (15-37) U/L ALT 9 L (14-59) U/L Alkaline Phosphatase 146 H (46-116) U/L Troponin I < 50 (< or =60) ng/L Total Protein 7.5 (6.4-8.2) g/dL Albumin 2.1 L (3.4-5.0) g/dL Procalcitonin 1.7 ng/mL Urine Color Yellow (Yellow) Urine Clarity Cloudy (Clear) Urine pH 7.5 (5-8) Ur Specific [place] >= 1.030 H (1.005-1.025) Urine Protein 30 H (Neg-Trace) mg/dL Urine Ketones 15 H (Negative) mg/dL Urine Blood Trace-intact H (Negative) Urine Nitrite Negative (Negative) Urine Bilirubin Small H (Negative) Urine Urobilinogen 1.0 H (Up to 0.2) mg/dL Ur Leukocyte Esterase Small H (Negative) Urine RBC Negative (0-2) HPF Urine WBC >50 H (0-5) HPF Ur Epithelial Cells Negative (Negative) HPF Urine Crystals Negative (Negative) HPF Urine Bacteria Negative (Negative) HPF Urine Casts Negative (Negative) LPF Urine Mucus Negative (Negative) Urine Other Negative (Negative) Ur Culture Indicated? C&S Done As Ordered Urine Glucose Negative (Negative) mg/dL COVID-19 Source SARS-CoV-2 (PCR) (Negative) MRSA (TEM-PCR) (Negative) 05/09/24 11:50 Urine Culture - Pending Urine - Cath Martinez Indwelling 05/09/24 11:28 Blood Culture - Pending Blood 05/09/24 11:08 Blood Culture - Pending Blood [id number] Documentation Fingerstick Glucose Start: 05/09/24 10:54 Freq: Status: Complete Protocol: Activity Type Activity Date Activity User E-sign Co-sign Detail Recorded Client Recorded Date Recorded By Document 05/09/24 10:53 BKG DAEMON(5) [id number] 05/09/24 10:54 BKG DAEMON(6) Intake and Output - 24 Hour Total 05/09/24 10:33 thru 05/09/24 15:27 Intake Total 2510 Balance 2510 Weight 78.2 kg Intake: IV 2510 Other: Urine Appearance Clear Falls Risk Assessment History of Falls Previous History 05/09/24 15:27 Contributing Factors Unstable,Impairments 05/09/24 15:27 Ambulatory Aids Uses ambulatory device + 05/09/24 15:27 Tubes/Lines With any additional score 05/09/24 15:27 Gait Evaluation W/any additional score 05/09/24 15:27 Cognition Cognitive impairment 05/09/24 15:27 Fall Total Score 106 05/09/24 15:27 Level of Risk Maximum Risk 05/09/24 15:27 Problems (Last Reviewed 03/26/24 @ 15:23 by Elfego Chino DO) Elevated lactic acid level (Acute) Severe sepsis (Acute) Diabetes mellitus type 2, insulin dependent (Acute) UTI (urinary tract infection) (Acute) Parkinsonism (Acute) Bipolar 1 disorder (Chronic) Notes 05/09/24 16:28 Respiratory by Katharine Holland RT Initial Evalutation/Assessment Start: 05/09/24 15:28 Freq: .q shift and prn Status: Active Protocol: Document 05/09/24 16:15 MF (Rec: 05/09/24 16:26 [id number]) RT Assessment OXYGEN HISTORY: Respiratory Breath Sounds Pulse Rate <100 Respiratory Rate <18 Respiratory Therapy Score Total 0 Assessment and Plan Note Patient unable to answer questions. Sp02 100% on baseline 02 of 2L, HR 96, RR 12. Patient able to blow into acapella x2, unable to follow commands with Incentive Spirometer. Encouraged the patient to cough and clear. notified. Initialized on 05/09/24 16:28 - END OF NOTE v v v v v v v v v Sending and/or Receiving Nurses: Please use comment section below to note any information pertinent to the patient hand-off not included above. Information / Comments: Patient has garbled speech, hard to understand or get answers from patient. Got 2L of LR in the ED, lactate elevated. Patient's BP has been soft. Right arm contracted and patient has right sided deficits from previous CVA. IV abx given. Severe sepsis. Report received from:Bobbi Patel RN
[2024-05-09] MEDS: Lactated Ringers 1,000 ML 50 ML IV (17:29)
[2024-05-09] MEDS: Mirtazapine 15 MG TAB PO (21:00)
[2024-05-09] MEDS: Carbidopa 25/Levodopa 100 TAB PO (21:00)
[2024-05-09] MEDS: QUEtiapine 100 MG TAB PO (21:00)
[2024-05-09] MEDS: rOPINIRole 0.5 MG TAB PO (21:00)
[2024-05-09] MEDS: Polyethylene Glycol 3350 17 GM PACKET PO (21:00)
[2024-05-09] MEDS: Gabapentin 300 MG CAP 600 MG PO (21:01)
[2024-05-09] MEDS: LORazepam 0.5 MG TAB PO (21:01)
[2024-05-09] MEDS: traMADol 50 MG TAB PO (21:01)
[2024-05-09] MEDS: traZODone 50 MG TAB PO (21:02)
[2024-05-09] MEDS: Acetaminophen 500 MG TAB PO (21:02)
[2024-05-09] MEDS: Magnesium Gluconate 500 MG TAB PO (21:02)
[2024-05-09] MEDS: Atorvastatin 20 MG TAB PO (21:03)
[2024-05-09] MEDS: Levothyroxine 100 MCG TAB PO (21:03)
[2024-05-09] MEDS: Fluticasone NASAL SPRAY 16 GM BTL NS (21:03)
[2024-05-09] MEDS: Lactobacillus Acidophilus CAP 1 CAP PO (21:03)
[2024-05-09] MEDS: Normal Saline Flush 10 ML SYR IVP (21:04)
[2024-05-09] MEDS: CEFEPIME 2 GM in Normal Saline 100 ML IVPB (22:39)
[2024-05-10] VITALS (7 sets, daily range): BP systolic 82–124; BP diastolic 51–69; PULSE 82–89; RESP 16–18; TEMP 36.1–36.6; O2SAT 94–99
[2024-05-10 07:28] LABS: Anion Gap 7.7 mmol/L (3-11); BUN 17 mg/dL (7-18); CO2 23.3 mmol/L (21.0-32.0); Chloride 109 mmol/L (98-107); Glucose 93 mg/dL (74-106); Magnesium 1.7 mg/dL (1.8-2.4); Potassium 4.5 mmol/L (3.5-5.1); Sodium 140 mmol/L (136-145)
[2024-05-10 07:31] LABS: Abs Immature Grans 0.01 10^3/uL (0.0-0.06); Absolute Basophil Count 0.01 10^3/uL (0.0-0.2); Absolute Eosinophil Count 0.06 10^3/uL (0.0-0.7); Absolute Lymphocyte Count 1.22 10^3/uL (1.2-3.4); Absolute Monocyte Count 0.28 10^3/uL (0.1-0.8); Absolute Neutrophil Count 2.42 10^3/uL (1.2-6.7); Basophils % 0.3 %; Eosinophils % 1.5 %; HCT 35.6 % (36.0-46.0); HGB 10.8 g/dL (11.2-15.7); Immature Grans % 0.3 %; Lymphocytes % 30.5 %; MCH 30.3 pg (27.0-33.0); MCHC 30.3 % (32.0-36.0); MCV 100 fL (80-95); MPV 9.8 fL (8.0-11.0); Neutrophils % 60.4 %; Platelet Count 152 10^3/uL (130-400); RBC 3.56 10^6/uL (3.93-5.22); RDW 21.3 % (11.7-14.6); RDW-SD 75.9 fL
[2024-05-10] MEDS: Omeprazole 20 MG CAPCR 40 MG PO (07:32)
[2024-05-10 08:52] LABS: Anisocytosis 1+; Diff Comment RBC Morph Reviewed
[2024-05-10] MEDS: VANCOMYCIN/WATER (PEG) 1.25 GM/250 ML BAG IV (09:00)
[2024-05-10] MEDS: Normal Saline Flush 10 ML SYR IVP ×2 (09:02→19:59)
[2024-05-10] MEDS: CEFEPIME 2 GM in Normal Saline 100 ML IVPB ×2 (09:02→22:01)
[2024-05-10] MEDS: Lactulose 20 GM/30 ML CUP 10 GM PO (09:10)
[2024-05-10] MEDS: Polyethylene Glycol 3350 17 GM PACKET PO ×2 (09:10→19:59)
[2024-05-10] MEDS: Lidocaine 5% Patch 1 PATCH TP (09:13)
[2024-05-10] MEDS: Magnesium Gluconate 500 MG TAB PO ×2 (09:15→19:58)
[2024-05-10] MEDS: Vitamins B Comp w/C TAB 1 TAB PO (09:15)
[2024-05-10] MEDS: Lactobacillus Acidophilus CAP 1 CAP PO ×2 (09:15→19:57)
[2024-05-10] MEDS: LORazepam 0.5 MG TAB PO ×2 (09:15→19:55)
[2024-05-10] MEDS: Gabapentin 300 MG CAP 600 MG PO ×2 (09:16→19:58)
[2024-05-10] MEDS: Ferrous Gluconate 324 MG TAB PO (09:16)
[2024-05-10] MEDS: Mirabegron 25 MG TABCR 50 MG PO (09:16)
[2024-05-10] MEDS: buPROPion-XL 150 MG TABCR PO (09:16)
[2024-05-10] MEDS: Carbidopa 25/Levodopa 100 TAB PO ×4 (09:17→19:58)
[2024-05-10] MEDS: Tamsulosin 0.4 MG CAPCR PO (09:18)
[2024-05-10] MEDS: lamoTRIgine 25 MG TAB 50 MG PO (09:18)
[2024-05-10] MEDS: Loratidine 10 MG TAB PO (09:18)
[2024-05-10] MEDS: QUEtiapine 100 MG TAB PO ×3 (09:18→19:58)
[2024-05-10] MEDS: traZODone 50 MG TAB PO ×2 (09:18→19:58)
[2024-05-10] MEDS: Potassium Chloride 10 MEQ TABCR PO (09:18)
[2024-05-10] MEDS: Acetaminophen 500 MG TAB PO ×2 (09:18→19:56)
[2024-05-10] MEDS: Fluticasone NASAL SPRAY 16 GM BTL NS ×2 (09:25→21:25)
--- NOTE | 2024-05-10 11:01 | PT.INTREAT ---
PT Notes Visit Reasons: Severe sepsis, pneumonia Inpatient Physical Therapy Treatment Note [facility] Date: 05/10/24 PRECAUTIONS:Standard (Bed ther ex only) Therapeutic Activities (29241z[]): Direct one-on-one instruction in dynamic activities to improve functional performance. ? Therapeutic Exercises (82887x[1]): Direct one-on-one instruction in therapeutic exercises to develop strength, endurance, range of motion and flexibility. ? Exercises ? L UE assist with shoulder flexion x 10 L UE assist with shoulder horz abd x 10 L UE rowing with assist x 10 R UE light ROM with shoulder flexion x 10 L LE Q.S. x 5 L LE SLR with assist x 10 L LE heel slide x 5 L LE hip abd x 10 with assist ASSESSMENT:? Pt was fatigued post session. PLAN: Cont as per PT POC as per [place]. TREATMENT CODE/TIME: 10:45-11 (15) TP DISCHARGE RECOMMENDATION: []
--- NOTE | 2024-05-10 11:15 | PGE_ITS ---
Date of Service Date of service: 05/10/24 Time of Service: 11:15 Assessment and Plan Assessment and plan (1) Septic shock: Status: Resolved Assessment and plan: Lactate at 4.5 and severe sepsis as below (2) Severe sepsis: Status: Acute Assessment and plan: On admission, the patient presented with tachypnea and tachycardia with a lactic of 3.4 as well as hypotension that was responsive to fluid resuscitation. The patient had a congested cough with x-ray showing questionable perihilar opacity pointing to pneumonia as the source of infection. Continue Cefepime and Vancomycin Blood cultures results pending at 12:01 PM Sputum cultures with result pending at 12:01 PM Urine cultures with result pending at 12:01 PM (3) Pneumonia: Status: Inactive Assessment and plan: As above Continue home O2 at 2 L with sat 95 to 97% Continue PRN nebs Continue Incentive spirometry Continue Vibra pep, patient was able to complete intervention today, was unable on arrival RT consultation completed (4) Elevated lactic acid level: Status: Acute Assessment and plan: Repeat Lactate 2.0 this AM On admission, lactic was 4.5 after initial value of 3.8 in the ED and fluid resuscitation, might be d/t delayed clearance and hypoperfusion, medicines Will continue to hold metformin Slow IVF hydration overnight, considering stopping with normotension and adequate urine output (5) Diabetes mellitus type 2, insulin dependent: Status: Acute Assessment and plan: On Trulicity and metformin at home, on hold Hold metformin Glucose before meals and at bedtime with sliding scale insulin coverage (6) UTI (urinary tract infection): Status: Acute Assessment and plan: Suprapubic catheter from home, patent Urine cultures pending, but patient is on cefepime and Vanco for severe sepsis/ speptic shock On prophylactic antibiotics ( Macrobid VS Macrodantin) to be verified but holding off now (7) Parkinsonism: Status: Acute Assessment and plan: Continue home Sinemet (8) Bipolar 1 disorder: Status: Chronic Assessment and plan: Continue home dose Seroquel and trazodone (9) Decubitus ulcer: Status: Acute Assessment and plan: Turn Q 2 wound consult pending Mepilex to buttocks (10) Hypothyroidism: Assessment and plan: Continue home dose levothyroxine Discussed with Dr. Scott Subjective Subjective Patient reports: no new complaints, feels better, tolerating liquids well, tolerating a regular diet and voiding w/o difficulty; denies diarrhea, nausea, vomiting, shortness of breath or afebrile Exam Narrative Exam Narrative: Constitutional The patient in bed interactive, comfortable, w/o acute distress, tries to speak but speech is mumbled at baseline from previous CVA sequelae Neuro:alert and oriented to self and place . No new neurological focal deficit, previous right sided deficit again noticed Resp on 2l/min of home O2, clear lung upper lungs with decreased basilar breath sounds Cardio: regular rhythm, S1, S2, no murmur GI: Abdomen is large, distended,soft and non tender, bowel sounds are present : Suprapubic catheter in place Integumentary: Stage I and II decubitus ulcers to buttocks on arrival , non- stageable to left buttock on arrival Extremities: On arrival left foot with 3 areas of broken skin on dorsal aspect and on on sole Psych: RASS 0, congruent mood and normal affect. Objective Last Vital Signs Temp 36.1 C L 05/10/24 07:36 Pulse 89 05/10/24 07:36 Resp 16 05/10/24 07:36 BP 124/69 05/10/24 07:36 Pulse Ox 95 05/10/24 08:06 Laboratory Results - last 24 hr 05/09/24 05/09/24 05/09/24 11:08 11:50 12:26 WBC 4.50 RBC 3.46 L Hgb 10.4 L Hct 34.2 L MCV 99 H MCH 30.1 MCHC 30.4 L RDW 21.0 H Plt Count 233 MPV 9.5 Immature Gran % 0.2 Neutrophils % 77.7 Lymphocytes % 12.2 Monocytes % 9.1 Eosinophils % 0.4 Basophils % 0.4 Nucleated RBC % 0.0 Absolute Neutrophils 3.49 Absolute Lymphocytes 0.55 L Absolute Monocytes 0.41 Absolute Eosinophils 0.02 Absolute Basophils 0.02 RBC Morphology See Below Polychromasia Present Hypochromasia 1+ Anisocytosis 1+ VBG pH 7.32 VBG pCO2 44 VBG pO2 39 VBG HCO3 22 L VBG Total CO2 21 L VBG O2 Saturation 72 VBG Base Excess -4 L VBG Lactate 3.8 H* Sodium 139 Potassium 5.0 Chloride 105 Carbon Dioxide 24.2 Anion Gap 9.8 BUN 17 Creatinine 1.6 H Est GFR (CKD-EPI 2020) 36.01 Glucose 215 H Calcium 9.5 Magnesium Total Bilirubin 0.81 AST 79 H ALT 9 L Alkaline Phosphatase 146 H Troponin I < 50 Total Protein 7.5 Albumin 2.1 L Procalcitonin 1.7 Urine Color Yellow Urine Clarity Cloudy Urine pH 7.5 Ur Specific [place] >= 1.030 H Urine Protein 30 H Urine Ketones 15 H Urine Blood Trace-intact H Urine Nitrite Negative Urine Bilirubin Small H Urine Urobilinogen 1.0 H Ur Leukocyte Esterase Small H Urine RBC Negative Urine WBC >50 H Ur Epithelial Cells Negative Urine Crystals Negative Urine Bacteria Negative Urine Casts Negative Urine Mucus Negative Urine Other Negative Ur Culture Indicated? C&S Done As Ordered Urine Glucose Negative COVID-19 Source SARS-CoV-2 (PCR) MRSA (TEM-PCR) Negative 05/09/24 05/09/24 05/10/24 12:28 14:02 07:10 WBC 4.00 L RBC 3.56 L Hgb 10.8 L Hct 35.6 L MCV 100 H MCH 30.3 MCHC 30.3 L RDW 21.3 H Plt Count 152 MPV 9.8 Immature Gran % 0.3 Neutrophils % 60.4 Lymphocytes % 30.5 Monocytes % 7.0 Eosinophils % 1.5 Basophils % 0.3 Nucleated RBC % 0.0 Absolute Neutrophils 2.42 Absolute Lymphocytes 1.22 Absolute Monocytes 0.28 Absolute Eosinophils 0.06 Absolute Basophils 0.01 RBC Morphology See Below Polychromasia Hypochromasia Anisocytosis 1+ VBG pH VBG pCO2 VBG pO2 VBG HCO3 VBG Total CO2 VBG O2 Saturation VBG Base Excess VBG Lactate 4.5 H* 2.0 H Sodium 140 Potassium 4.5 Chloride 109 H Carbon Dioxide 23.3 Anion Gap 7.7 BUN 17 Creatinine 1.0 Est GFR (CKD-EPI 2020) 63.30 Glucose 93 Calcium 9.0 Magnesium 1.7 L Total Bilirubin AST ALT Alkaline Phosphatase Troponin I < 50 Total Protein Albumin Procalcitonin Urine Color Urine Clarity Urine pH Ur Specific [place] Urine Protein Urine Ketones Urine Blood Urine Nitrite Urine Bilirubin Urine Urobilinogen Ur Leukocyte Esterase Urine RBC Urine WBC Ur Epithelial Cells Urine Crystals Urine Bacteria Urine Casts Urine Mucus Urine Other Ur Culture Indicated? Urine Glucose COVID-19 Source Nasopharynx SARS-CoV-2 (PCR) Negative MRSA (TEM-PCR) Time Spent with Patient Time Spent with Patient: >50 minutes Time was spent: preparing to see the patient(eg.review tests), obtaining and/or reviewing separately otained hiistory, ordering medications,tests, procedures, referring, communicating with other health clinical care coordinator, indepentently interpreting results, counseling the patient and care coordination
--- NOTE | 2024-05-10 11:18 | PDOC.CMIN ---
Date of service: 05/10/24 Time of Service: 11:18 Care Management Initial Assmt Initial Assessment Reason for Hospitalization: Severe sepsis, pneumonia Functional Status/Living Situation Patient Presentation: Ginger was lying in bed when CM met with her. Her speech was garbled and difficult to understand, more so than previous encounters with this commercial lines underwriter. She reported that she is not eating well and is feeling very tired today. She is being treated with IV antibiotics; blood culture results are pending. Ginger lives at the [facility], and once she is medically cleared, CM will coordinate her return. CM will continue to follow. Town of Residence: [place] Resides with: Other (SNF) Significant Other/Family: Out of area Caregiver/Guardian: Ginger is a prison resident at the [facility] in [place]. Natural Supports: Father, Luis Armando Moe, [facility] Employment Status: Unemployed Instrumental Activities of Daily Living (ADLs): Requires support with Dishes/food prep, Community Recreation Programmer, Groceries, Heat/Utilities, Laundry and Transportation Medications Medication Management: Issues/Barriers Physical Functioning/Mobility Assistive Device: Full support at the [facility], including maida lift; pt reports being bed bound. Advance Directives Advance Directives: Do you have an Advance Directive: N 11/24/22 10:12 AD On File at [facility]: N 11/24/22 10:12 Date Asked 03/26/24 03/26/24 11:58 AD Date Reviewed COLST On File at [facility] Yes 11/24/22 10:12 COLST Date Scanned 01/05/23 01/10/23 09:59 Code Status Resuscitation Status DNR/DNI Insurance Coverage/Financial Issues Insurance: [facility]. Care Team Visit Care Team Role Provider Type Agueda Bingham Primary Care Provider NON-[facility] STAFF PHYSICIAN Shima Montana, MEDICAL DERMATOLOGIST Other Providers SPEECH LANGUAGE PATHOLOGIST Ginger Moreno RDN, CDCES Other Providers MELTER LOADER Ann-Marie Hancock Other Providers MELTER LOADER Sasha Lu, MEDICAL DERMATOLOGIST Other Providers SPEECH LANGUAGE PATHOLOGIST Anu Brian Other Providers SPEECH LANGUAGE PATHOLOGIST Rona Carrillo, MEDICAL DERMATOLOGIST Other Providers SPEECH LANGUAGE PATHOLOGIST Palma Keita, MEDICAL DERMATOLOGIST Other Providers SPEECH LANGUAGE PATHOLOGIST Javier Mir Other Providers OTHER Cresencio Gutierrez RDN Other Providers MELTER LOADER Stacey Zaidi MD Emergency Provider [facility] STAFF PHYSICIAN Maria Isabel Saldana APRN Admit Provider [facility] STAFF PHYSICIAN Attending Provider Discharge Potential Discharge Needs: Other (Coordinated return to SNF) Anticipated Barriers to Discharge: None Identified Patient/Family Education Needs: Review discharge instructions, discuss Ask Me Three Transportation: EMS Plan: Anticipate Ginger will return to the [facility] once medically cleared. CM will coordinate transport, likely EMS, as she is bed bound. She will follow up with facility providers and her discharge plan of care. CM will continue to follow. [employer] All Active Problems (Updated 05/09/24 @ 17:16 by Maria Isabel Saldana APRN) Decubitus ulcer (Acute) Elevated lactic acid level (Acute) Sepsis (Acute) Pneumonia (Acute) Severe sepsis (Acute) Diabetes mellitus type 2, insulin dependent (Acute) Diarrhea (Acute) Bacteremia (Acute) UTI (urinary tract infection) (Acute) Hypoalbuminemia (Acute) Hyperglycemia (Acute) High anion gap metabolic acidosis (Acute) Anemia (Chronic) Advanced care planning/counseling discussion (Acute) Gallstones (Acute) Tardive dyskinesia (Acute) Parkinsonism (Acute) Bipolar 1 disorder (Chronic) Bipolar affective disorder, current episode depressed (Acute) rule out bipolar disorder reported by patient. Antiepileptics maybe preventing manic episode. Major depressive disorder, recurrent, severe with psychotic features (Acute) Current presentation is depression. She may have bipolar affective disorder. Ambulatory dysfunction (Chronic) Hemiparesis affecting right side as late effect of cerebrovascular accident (Chronic) Dysphagia as late effect of cerebrovascular accident (CVA) (Chronic) Dysarthria as late effect of cerebrovascular accident (CVA) (Acute) Medical History Acute bronchitis Diarrhea Abdominal bloating Abdominal pain Pyelonephritis Microcytic anemia Emphysematous pyelonephritis Hydronephrosis of right kidney Pyuria due to bacterial urinary tract infection Arthritis of left shoulder region Left rotator cuff tear Cough Ileus History of stroke Palliative care encounter Diverticulosis Nephrolithiasis Uterine mass likely a fibroid Cholelithiasis with acute cholecystitis s/p cholecystostomy and stone extraction in 2014 ([facility]), tube now pulled. Gallbladder still in place Steroid dependent Chronic adrenal insufficiency Hypothyroidism Hemiparesis affecting right side as late effect of cerebrovascular accident (CVA) Lumbar disc disease Anxiety Hepatitis C Bipolar 1 disorder IDDM (insulin dependent diabetes mellitus) Hypertension History of multiple cerebrovascular accidents (CVAs) Obesity (BMI 30.0-34.9) Neurogenic bladder Static encephalopathy MEMORY CARE PROGRAM RESIDENT vasculitis UTI (urinary tract infection) Chronic chest pain Constipation Staghorn calculus Autoimmune disorder Neck pain UTI (urinary tract infection) Aphasia as late effect of cerebrovascular accident Surgical History History of extraction of renal calculus 12/13/2018 - [facility] S/P cystoscopy with ureteral stent placement UV 11/2018 History of hip surgery right H/O wrist surgery H/O foot surgery History of lumbosacral spine surgery Abnormal cholangiogram H/O cervical spine surgery Status post creation of urethral sling by suprapubic approach Family History Mother Stroke Social History Smoking/Tobacco Use Status: Former Tobacco Use Smoking risk assessment performed?: Yes Alcohol Intake: former Drug use: Current Sobriety Substance use type: former substance user and IV drugs Housing: care home Number of Children: 5 Education Level: elementary school Details: 6th grade, special ed, left school age 16. Current gender identity: female What is your relationship status?: Panel score (0-1 are the most socially isolated patients): 0 What type of physical activity do you participate in: none Do you feel safe at home: Yes Do you feel safe in your relationship?: Yes Additional Social history: [facility](Care Management) Screening Will the Patient Participate in the Screening?: Unable to obtain
[2024-05-10] MEDS: Insulin Aspart 300 UNITS/3 ML PEN SC (11:59)
[2024-05-10] MEDS: MAGNESIUM SULFATE 2 GM/50 ML BAG IVINF (12:23)
[2024-05-10] MEDS: Lactated Ringers 1,000 ML 50 ML IV (15:00)
[2024-05-10] MEDS: Enoxaparin 40 MG/0.4 ML SYR SC (15:34)
[2024-05-10] MEDS: Levothyroxine 100 MCG TAB PO (19:57)
[2024-05-10] MEDS: traMADol 50 MG TAB PO (19:58)
[2024-05-10] MEDS: Atorvastatin 20 MG TAB PO (19:58)
[2024-05-10] MEDS: Mirtazapine 15 MG TAB PO (19:59)
[2024-05-10] MEDS: rOPINIRole 0.5 MG TAB PO (19:59)
--- NOTE | 2024-05-10 21:03 | WOUNDCONS ---
Date of service: 05/10/24 Time of Service: 21:04 Wound Initial Evaluation Narrative Narrative: Patient is a bedbound 63 year female living at a SNF with a lengthy past medical history including CVA with residual right sided hemiparesis. Patient has an indwelling suprapubic catheter, diabetes type 2, dysarthria as a result of the CVA, bipolar disorder and utilizes home oxygen at 2L. The patient was admitted 05/09/24 for severe sepsis and pneumonia. A consent for wound photo was verbalized and signed by the patient. The H&P, recent notes, allergies and vital signs were reviewed. The patient BMI is 27.8. Wound Left buttock and sacrum: Wound Type: Pressure Ulcer Pressure Ulcer Stage: Other (Stage 1 and stage 2 and unstageable areas) Wound Surrounding Tissue Appearance: [place] Wound Drainage Amount: None Additional Other Comments: There is a stage 1 pressure injury which measures 6cm long x 11cm wide encompassing two other wounds on the left buttock and sacrum. Within the stage 1 pressure injury are two areas of concern. An unstageable wound on the left buttock and a sacral deep tissue injury. The left buttock injury with partial thickness skin loss measures 1.8cm long x 0.7cm wide. The sacral area deep tissue injury measures 1.5cm long x 0.3cm wide. Left heel: Wound Type: Deep Tissue Injury (DTI) Wound General Appearance: Other (Purplish) Wound Surrounding Tissue Appearance: [place] Wound Length: 1 cm Wound Width: 2.5 cm Wound Drainage Amount: None Left foot dorsal : Wound Type: Partial Thickness Wound Length: 0.5 cm Wound Width: 1 cm Pain Additional Other Comments: Patient denied pain to buttocks nor to left heel area. Patient complained of pain in the shoulder and neck areas. Wound Summary Wound Summary: First photo shows stage 1 and stage 2 pressure injuries to the buttocks/sacral area and an unstageable deep tissue injury. Left buttock in photo 1 also shows wound with a skin tear and skin flap. Second photo shows a deep tissue injury to left heel with purplish discoloration. Third photo is dorsal aspect of left foot with 5th digit amputated several years previous. Photo Photo: Treatment/Dressing Change Topicals/Ointments: Zincoxide and Other (Sureprep skin protective wipe applied to dontae wound areas) Dressing Types: Band Aid (On dorsal aspect of left foot) and Mepilex w/Border (Mepilex on left heel, OptiView transparent dressing applied to sacral/buttock area.) Dressing Comment: Apply thin film of zinc oxide lotion to perineal area to protect skin from incontinence. Nutrition Education Reviewed Nutrition Education: Yes Note: Last A1c in February 2024 was 6.9%.Discussed with patient the need to increase protein intake for optimal wound healing. Recomendation Recomendation:: Remove dressings every 3 days and as needed if soiled. Apply Sureprep skin protective wipe to periwound areas as barrier film to prevent stripping caused by adhesives Apply dressings to cushion and protect wound: A bandaid for dorsal aspect of left foot, an Optifoam Gentle Lite Foam with border 3x3 for the left heel and an OptiView Transparent Dressing for the sacral area are preferred. Physcian/Nurse Practioner Notified: Yes Treatment Time Time Total Time Spent with Patient: 90 minutes
[2024-05-10] MEDS: Lidocaine Patch Removal 1 EACH TP (21:38)
[2024-05-11] VITALS (7 sets, daily range): BP systolic 93–126; BP diastolic 50–75; PULSE 81–99; RESP 16–20; TEMP 36.1–36.6; O2SAT 97–100
[2024-05-11 06:54] LABS: Abs Immature Grans 0.01 10^3/uL (0.0-0.06); Absolute Basophil Count 0.01 10^3/uL (0.0-0.2); Absolute Eosinophil Count 0.07 10^3/uL (0.0-0.7); Absolute Lymphocyte Count 0.88 10^3/uL (1.2-3.4); Absolute Monocyte Count 0.27 10^3/uL (0.1-0.8); Absolute Neutrophil Count 1.91 10^3/uL (1.2-6.7); Basophils % 0.3 %; Eosinophils % 2.2 %; HCT 34.2 % (36.0-46.0); HGB 10.4 g/dL (11.2-15.7); Immature Grans % 0.3 %; Lymphocytes % 27.9 %; MCHC 30.4 % (32.0-36.0); MCV 99 fL (80-95); MPV 10.9 fL (8.0-11.0); Monocytes % 8.6 %; Neutrophils % 60.7 %; Platelet Count 146 10^3/uL (130-400); RBC 3.47 10^6/uL (3.93-5.22); RDW 21.4 % (11.7-14.6); RDW-SD 74.6 fL; WBC 3.15 10^3/uL (4.4-10.8)
[2024-05-11 07:26] LABS: Anisocytosis 1+; Diff Comment RBC Morph Reviewed
[2024-05-11] MEDS: VANCOMYCIN/WATER (PEG) 1.25 GM/250 ML BAG IV (08:09)
[2024-05-11] MEDS: Normal Saline Flush 10 ML SYR IVP ×2 (08:11→19:58)
[2024-05-11] MEDS: Lactulose 20 GM/30 ML CUP 10 GM PO (08:26)
[2024-05-11] MEDS: CEFEPIME 2 GM in Normal Saline 100 ML IVPB ×2 (08:27→21:58)
[2024-05-11] MEDS: Lidocaine 5% Patch 1 PATCH TP (08:29)
[2024-05-11] MEDS: Acetaminophen 500 MG TAB PO ×2 (08:30→20:01)
[2024-05-11] MEDS: Lactobacillus Acidophilus CAP 1 CAP PO ×2 (08:31→20:01)
[2024-05-11] MEDS: Tamsulosin 0.4 MG CAPCR PO (08:31)
[2024-05-11] MEDS: LORazepam 0.5 MG TAB PO ×2 (08:31→20:02)
[2024-05-11] MEDS: Potassium Chloride 10 MEQ TABCR PO (08:31)
[2024-05-11] MEDS: Magnesium Gluconate 500 MG TAB PO ×2 (08:32→20:00)
[2024-05-11] MEDS: Gabapentin 300 MG CAP 600 MG PO ×2 (08:32→20:00)
[2024-05-11] MEDS: Omeprazole 20 MG CAPCR 40 MG PO (08:32)
[2024-05-11] MEDS: lamoTRIgine 25 MG TAB 50 MG PO (08:32)
[2024-05-11] MEDS: buPROPion-XL 150 MG TABCR PO (08:32)
[2024-05-11] MEDS: traZODone 50 MG TAB PO ×2 (08:33→20:02)
[2024-05-11] MEDS: Ferrous Gluconate 324 MG TAB PO (08:33)
[2024-05-11] MEDS: Loratidine 10 MG TAB PO (08:33)
[2024-05-11] MEDS: Mirabegron 25 MG TABCR 50 MG PO (08:33)
[2024-05-11] MEDS: QUEtiapine 100 MG TAB PO ×3 (08:33→20:02)
[2024-05-11] MEDS: Vitamins B Comp w/C TAB 1 TAB PO (08:33)
[2024-05-11] MEDS: Carbidopa 25/Levodopa 100 TAB PO ×4 (08:34→20:01)
[2024-05-11] MEDS: Polyethylene Glycol 3350 17 GM PACKET PO ×2 (08:34→20:00)
[2024-05-11] MEDS: Fluticasone NASAL SPRAY 16 GM BTL NS (08:38)
--- NOTE | 2024-05-11 10:24 | W.PM.PROGNOT ---
Date of Service Date of service: 05/11/24 Time of Service: 24 Assessment and Plan Assessment and plan (1) Septic shock: Status: Resolved Assessment and plan: Lactate at 4.5 Severe sepsis as below Repeated Lactate 2.0 (2) Severe sepsis: Status: Acute Assessment and plan: In the ED, the patient presented with tachypnea and tachycardia with a lactic of 3.4 as well as hypotension that was responsive to fluid resuscitation. Questionable perihilar opacity pointing to pneumonia as the source of infection as per chest x-ray Urine cultures mixed GN mixed irving > 100K , could be considered a a possible source MRSA negative Continue Cefepime Discontinue Vancomycin Blood cultures results no growth 48 hours Sputum cultures ordered on 05/10 suprapubic catheter changed today (3) Pneumonia: Status: Inactive Assessment and plan: As above No increased O2 requirement, afebrile, no cough Continue home O2 at 2 L with sat 95 to 97% Continue PRN nebs Continue Incentive spirometry Continue Vibra pep, patient was able to complete intervention but needed cueing (4) Elevated lactic acid level: Status: Acute Assessment and plan: Repeat Lactate 2.0 this AM On admission, lactic was 4.5 after initial value of 3.8 in the ED and fluid resuscitation, might be d/t delayed clearance and hypoperfusion, medicines Continue to hold metformin and resume on discharge ; DM managed inpatient as in point 5 Slow IVF hydration overnight, considering stopping with normotension and adequate urine output Stop IVF ; able to tolerate adequate PO (5) Diabetes mellitus type 2, insulin dependent: Status: Acute Assessment and plan: On Trulicity and metformin at home, on hold Hold metformin consider resuming at discharge Glucose before meals and at bedtime with sliding scale insulin coverage (6) UTI (urinary tract infection): Status: Acute Assessment and plan: Suprapubic catheter from home, patent Urine cultures GNR mixed > 100K, Change suprapubic cath- will place a urology consult if difficulties are encountered Patient is on cefepime and Vanco for severe sepsis/ speptic shock On prophylactic antibiotics ( Macrobid VS Macrodantin) to be verified but holding off now ; to be resume at discharge (7) Parkinsonism: Status: Acute Assessment and plan: On home dose Sinemet (8) Bipolar 1 disorder: Status: Chronic Assessment and plan: On home dose Seroquel and trazodone (9) Decubitus ulcer: Status: Acute Assessment and plan: Turn Q 2 wound consult completed and continue dressing as per wound consult (10) Hypothyroidism: Assessment and plan: On home dose levothyroxine Discussed with Dr. Vega Subjective Subjective Patient reports: no new complaints, feels better, tolerating liquids well, tolerating a regular diet, voiding w/o difficulty and bowel movement; denies diarrhea, nausea, vomiting, shortness of breath or fever Exam Narrative Exam Narrative: Constitutional The patient is closed to baseline in terms of alertness, comfortable, w/o acute distress, speech still impaired d/t previous CVA sequelae Neuro:alert and oriented to self, time and place . No new neurological focal deficit, previous right sided deficit again noticed Resp Clear lung upper lungs with decreased basilar breath sounds, no increase in O2 requirement Cardio: regular rhythm, S1, S2, no murmur GI: Abdomen is large, distended,soft and non tender, bowel sounds are present : Suprapubic catheter in place- changed today Integumentary: Stage I and II decubitus ulcers to buttocks on arrival , non-stageable to left buttock on arrival; wound consult completed Extremities: contracted LE's Psych: RASS 0, congruent mood and normal affect. Objective Last Vital Signs Temp 36.4 C L 05/11/24 07:42 Pulse 90 05/11/24 07:42 Resp 18 05/11/24 07:42 BP 126/74 05/11/24 07:42 Pulse Ox 99 05/11/24 07:42 Laboratory Results - last 24 hr 05/11/24 06:15 WBC 3.15 L RBC 3.47 L Hgb 10.4 L Hct 34.2 L MCV 99 H MCH 30.0 MCHC 30.4 L RDW 21.4 H Plt Count 146 MPV 10.9 Immature Gran % 0.3 Neutrophils % 60.7 Lymphocytes % 27.9 Monocytes % 8.6 Eosinophils % 2.2 Basophils % 0.3 Nucleated RBC % 0.0 Absolute Neutrophils 1.91 Absolute Lymphocytes 0.88 L Absolute Monocytes 0.27 Absolute Eosinophils 0.07 Absolute Basophils 0.01 RBC Morphology See Below Anisocytosis 1+ Time Spent with Patient Time Spent with Patient: >50 minutes Time was spent: preparing to see the patient(eg.review tests), obtaining and/or reviewing separately otained hiistory, ordering medications,tests, procedures, referring, communicating with other health memory care program resident, indepentently interpreting results, counseling the patient and care coordination
--- NOTE | 2024-05-11 10:33 | PT.INTREAT ---
PT Notes Visit Reasons: Severe sepsis, pneumonia Inpatient Physical Therapy Treatment Note [facility] Date: 05/11/24 PRECAUTIONS:Bed exercises only OBJECTIVE: Therapeutic Activities ([id number][]): Direct one-on-one instruction in dynamic activities to improve functional performance. ? Therapeutic Exercises (38599b[1]): Direct one-on-one instruction in therapeutic exercises to develop strength, endurance, range of motion and flexibility. ? Exercises ? L UE assist with shoulder flexion x 10 L UE assist with shoulder horz abd x 10 L UE circles with assist x 10 R UE light ROM with shoulder flexion x 10 L LE heel slide x 5 with assist L LE hip abd x 10 with assist ASSESSMENT:? Pt required more assist with bed exercises today and seemed ore fatigued. PLAN: Cont as per PT POC. TREATMENT CODE/TIME: 10:30-10:50 TPx1 DISCHARGE RECOMMENDATION: []
[2024-05-11] MEDS: Insulin Aspart 300 UNITS/3 ML PEN SC ×2 (12:00→16:59)
[2024-05-11 14:59] LABS: Anion Gap 8.9 mmol/L (3-11); BUN 13 mg/dL (7-18); CO2 22.1 mmol/L (21.0-32.0); Calcium 8.6 mg/dL (8.5-10.1); Chloride 112 mmol/L (98-107); Estimated GFR 62.91 (mL/min/1.73m2); Glucose 164 mg/dL (74-106); Magnesium 1.8 mg/dL (1.8-2.4); Potassium 3.4 mmol/L (3.5-5.1); Sodium 143 mmol/L (136-145)
[2024-05-11] MEDS: Enoxaparin 40 MG/0.4 ML SYR SC (16:59)
[2024-05-11] MEDS: traMADol 50 MG TAB PO (20:01)
[2024-05-11] MEDS: Levothyroxine 100 MCG TAB PO (20:01)
[2024-05-11] MEDS: rOPINIRole 0.5 MG TAB PO (20:02)
[2024-05-11] MEDS: Atorvastatin 20 MG TAB PO (20:02)
[2024-05-11] MEDS: Mirtazapine 15 MG TAB PO (20:02)
[2024-05-11] MEDS: Lidocaine Patch Removal 1 EACH TP (21:58)
--- NOTE | 2024-05-12 | DI.RAD_ITS ---
Exam(s) XR CHEST 2V PA LATERAL EXAM: XR CHEST 2V PA LATERAL CLINICAL HISTORY: Poor prior study TECHNIQUE: 2D digital imaging was performed. Two views. COMPARISON: CR XR PORTABLE CHEST AP from 05/09/2024 FINDINGS: Exam extremely limited by semi-erect positioning and expiratory changes. Lateral view also limited by patient arm position. HEART: Normal size. Aorta: Not dilated. PULMONARY VASCULATURE: Normal. MEDIASTINUM: Unremarkable. LUNGS: Right lung grossly clear. Question of infiltrate near the left hilum versus overlying vessels . PLEURAL SPACE: No pleural effusion or pneumothorax. BONE:Unremarkable for age. Hardware lower cervical spine. SOFT TISSUES: Unremarkable. IMPRESSION: Question of left-sided infiltrate versus overlying structures. Exam is extremely limited. DATA REPOSITORY: RADIATION DOSE DELIVERED:
--- NOTE | 2024-05-12 04:36 | TELEP.MEDREC ---
Date of service: 05/12/24 Time of Service: 04:36 Telepharmacy Home Med Rec Allergies Allergies: naproxen (From Aleve) Allergy (Unknown, Unverified 05/09/24 11:34) Itching Penicillins Allergy (Unknown, Unverified 05/09/24 11:34) Itching propoxyphene Allergy (Unknown, Unverified 05/09/24 11:34) Itching Sulfa (Sulfonamide Antibiotics) Allergy (Unknown, Unverified 05/09/24 11:34) Itching methadone Allergy (Verified 05/09/24 11:34) Nausea Interview Person Interviewed: received pt's MAR from [facility] Quality Quality of Interview/Accuracy of Medication List: Good Sources Sources used to compile medication list: MAR Changes made to Home Medication List: ADDITIONS: Metformin ER 500 mg daily Orajel tums colace tramadol prn order DELETIONS: miralax metformin plain formulation - pt is taking metformin ER CHANGES: none Recommended Changes Recommended Changes(reason for recommendation): none Attestation: The home medication list is now updated to the best of my knowledge and is ready to be reconciled by the provider. Please contact the TelePharmacy Medication Reconciliation Pharmacist at for any questions.
[2024-05-12 07:21] LABS: Abs Immature Grans 0.01 10^3/uL (0.0-0.06); Absolute Basophil Count 0.02 10^3/uL (0.0-0.2); Absolute Eosinophil Count 0.08 10^3/uL (0.0-0.7); Absolute Lymphocyte Count 1.23 10^3/uL (1.2-3.4); Absolute Neutrophil Count 2.01 10^3/uL (1.2-6.7); Basophils % 0.5 %; Eosinophils % 2.2 %; HCT 29.6 % (36.0-46.0); HGB 9.1 g/dL (11.2-15.7); Immature Grans % 0.3 %; Lymphocytes % 33.7 %; MCH 30.7 pg (27.0-33.0); MCHC 30.7 % (32.0-36.0); MCV 100 fL (80-95); MPV 9.5 fL (8.0-11.0); Monocytes % 8.2 %; Neutrophils % 55.1 %; Platelet Count 168 10^3/uL (130-400); RBC 2.96 10^6/uL (3.93-5.22); RDW 21.6 % (11.7-14.6); RDW-SD 77.1 fL; WBC 3.65 10^3/uL (4.4-10.8)
[2024-05-12 07:42] LABS: Anion Gap 8.6 mmol/L (3-11); BUN 11 mg/dL (7-18); CO2 24.4 mmol/L (21.0-32.0); CREATININE 0.7 mg/dL (0.55-1.02); Calcium 8.2 mg/dL (8.5-10.1); Chloride 113 mmol/L (98-107); Estimated GFR 96.52 (mL/min/1.73m2); Glucose 99 mg/dL (74-106); Potassium 3.1 mmol/L (3.5-5.1); Sodium 146 mmol/L (136-145)
[2024-05-12 07:54] VITALS: BP 108/68; PULSE 87; RESP 19; TEMP 36.7; O2SAT 95
[2024-05-12 07:54] LABS: Anisocytosis 2+; Diff Comment RBC Morph Reviewed; Vancomycin, Trough 19.3 ug/mL (10.0-20.0)
--- NOTE | 2024-05-12 08:52 | DM INPTCON_ITS ---
Date of service: 05/12/24 Time of Service: 08:52 Diabetes Inpatient Consult Reason for Visit: Routine consult - diabetes education/mgt DESCRIPTION/ASSESSMENT: Pt is 64yo female who resides at [facility] found to have increased difficulty breathing. Pt admitted with sever sepsis with elevated lactate. [facility] and takes trulicity and metformin. Other sig meds include atorvastatin, Bcomplex, tums, cranberry extract, ferrous gluconate, gabapentin, lactulose, mirtazapine, KCl. FPG 05/12 was 99 with mealtime fingersticks all 88-188 over the last 3 days. Currently Trulicity and metformin on hold and managed with moderate sliding scale insulin Aspart at meals. Her most recent A1C was 6.9% in February this year and has history of <7.0 Pt ordered for heart healthy/consistent CHO diet with minced and moist consist encies (other natural purees like mash pot and squash) with 1:1 assists at meals. Estimated energy needs: 1618kcals, 78g protein and 1618mL fluid Visited with patient who responded to questions in unintelligible iterations. Even made worse as she put a caramel candy in her mouth and rolled it around while trying to communicate. She seemed to approve a trial of carb control boost for supplemental calories, protein, micronutrients. Quite evident is her lack of dentition, supporting her ordered diet consistency INTERVENTION: Will trial Glucose Control Boost ONS for nutrition support on lunch and dinner trays and check on acceptance/intake to provide 32g protein and 380 additional kcals per day and provide ordered textures as indicated. Consider putting back on metformin and trulicity meals and glucose control will be supervised at the [facility] post discharge. PLAN: will follow weight, labs/glucose and intake/toleration at meals and with ONS trial. Time Spent in Nutritional Counseling and Treatment: 10 min
[2024-05-12] MEDS: Lactulose 20 GM/30 ML CUP 10 GM PO (08:56)
[2024-05-12] MEDS: Fluticasone NASAL SPRAY 16 GM BTL NS (08:56)
[2024-05-12] MEDS: Lactobacillus Acidophilus CAP 1 CAP PO (08:57)
[2024-05-12] MEDS: Omeprazole 20 MG CAPCR 40 MG PO (08:57)
[2024-05-12] MEDS: Vitamins B Comp w/C TAB 1 TAB PO (08:57)
[2024-05-12] MEDS: Gabapentin 300 MG CAP 600 MG PO (08:57)
[2024-05-12] MEDS: LORazepam 0.5 MG TAB PO (08:58)
[2024-05-12] MEDS: Tamsulosin 0.4 MG CAPCR PO (08:58)
[2024-05-12] MEDS: Mirabegron 25 MG TABCR 50 MG PO (08:59)
[2024-05-12] MEDS: Magnesium Gluconate 500 MG TAB PO (08:59)
[2024-05-12] MEDS: traZODone 50 MG TAB PO (08:59)
[2024-05-12] MEDS: lamoTRIgine 25 MG TAB 50 MG PO (08:59)
[2024-05-12] MEDS: Acetaminophen 500 MG TAB PO (08:59)
[2024-05-12] MEDS: Carbidopa 25/Levodopa 100 TAB PO ×2 (09:00→12:12)
[2024-05-12] MEDS: Loratidine 10 MG TAB PO (09:00)
[2024-05-12] MEDS: Ferrous Gluconate 324 MG TAB PO (09:00)
[2024-05-12] MEDS: QUEtiapine 100 MG TAB PO (09:00)
[2024-05-12] MEDS: Potassium Chloride 10 MEQ TABCR PO (09:00)
[2024-05-12] MEDS: Normal Saline Flush 10 ML SYR IVP (09:01)
[2024-05-12] MEDS: Polyethylene Glycol 3350 17 GM PACKET PO (09:01)
[2024-05-12] MEDS: CEFEPIME 2 GM in Normal Saline 100 ML IVPB (09:02)
[2024-05-12] MEDS: Lidocaine 5% Patch 1 PATCH TP (09:04)
[2024-05-12] MEDS: buPROPion-XL 150 MG TABCR PO (09:05)
[2024-05-12] MEDS: Potassium Chloride 20 MEQ TABCR 40 MEQ PO (09:35)
--- NOTE | 2024-05-12 09:50 | SP_ITS ---
Date of service: 05/12/24 Time of Service: 09:50 Subjective Clinical (Bedside) Swallow Evaluation Speech Language Pathology Referred by: Maria Isabel Saldana Referral Type: Clinical Swallow Evaluation Reason for Referral/HPI: Ginger Barrera is a 64 yo female with PMH significant for Bipolar 1 disorder, Parkinsonism, decubitus ulcer on buttocks, hx CVA with residual right side deficit and dysarthria who presented to ED on 05/09/24 with altered mental status, congested cough/pneumonia, tachypnea, tachycardia, and sepsis. CXR 05/09/24 limited due to patient positioning though question of a left perihilar infiltrate. Referred for NAUTICAL INSTRUMENT MECHANIC evaluation secondary to nursing concern with tolerance of solid foods/chewing difficulty and oral pocketing. NAUTICAL INSTRUMENT MECHANIC IMPRESSIONS & RECOMMENDATIONS: Ginger was seen for a non-instrumental swallow evaluation with breakfast tray. She presented as alert and conversant though speech is notably dysarthric, with intelligibility approximately 50%. Patient reporting pain from her sacral ulcer and unable to tolerate upright positioning (~75 degrees). She required 1:1 assist for holding cup/feeding with fork due to hand tremor and discoordination. She states typically she does self- feed. PO trials characterized by disorganized oral phase with prolonged mashing. Patient is edentulous. No oral pocketing with trials this date, though nursing reports with prior meals. No overt s/s aspiration - no coughing/throat clearing/change in vocal quality. Recommend diet modification for ease of mastication/deglutition and optimization of intake and swallow safety. Nursing suggesting puree solids due to inability to tolerate mashed turkey over the weekend. Though based on PO trials this date, recommend L5 minced moist solids with favoring of naturally pureed foods (mashed potatoes, squash, applesauce, pudding) as to not restrict PO options as patient expresses preference for scrambled eggs/breads non-pureed. Recommend aspiration precautions and feeding assistance as outlined below. FURTHER NAUTICAL INSTRUMENT MECHANIC SERVICES: Patient to be followed while on unit. Plan to re-assess x1-2 to ensure diet tolerance. Upon Discharge, do not anticipate new NAUTICAL INSTRUMENT MECHANIC needs Diet Recommendations: SOLIDS: 5-Minced & Moist Solids LIQUIDS: 0-Thin Liquids MEDICATIONS: Whole or crushed with applesauce/pudding RISK MANAGEMENT: HOB upright as tolerated with PO intake Oral hygiene BID/2x per day Level of Assistance/Supervision: 1:1 feed assist for meals PO intake only when awake/alert? Small sips and bites when eating Slow rate of intake Check for oral pocketing after meals Posture/Positioning Needs: As upright as able to tolerate for PO SUBJECTIVE: Patient received alert/awake, agreeable to evaluation. Speech intelligibility fluctuating, approximately 50% due to hx dysarthria Pain Reported? Unable to rate; reporting pain on buttocks, nursing aware Baseline Swallow Function: Patient denies swallowing difficulty prior to admission and eats a regular diet at baseline. She reports she self-feeds at baseline PO Trials Assessed: IDDSI 0 Thin Liquids (water, diet coke) IDDSI 6 Soft & Bite Size Solid ([place] bread cut into very small pieces) Refused other solid trials Oral Mechanism Examination: Patient is edentulous. Oral mucosa is dry. Oral Phase Findings: Difficulty with bolus manipulation Difficulty with a-p transport Difficulty chewing Pharyngeal Phase Findings: WFL for trials assessed [place] Swallow Protocol Results: PASS ASSESSMENT: Further NAUTICAL INSTRUMENT MECHANIC Services indicated. Patient to be followed while on unit. Recommendation at Discharge: To be determined. Do not anticipate NAUTICAL INSTRUMENT MECHANIC needs post discharge Suggested Referrals: N/A Recommended Procedures: N/A Education Provided to: Patient, nursing Topics Addressed:NAUTICAL INSTRUMENT MECHANIC findings, recommendations, POC PLAN: Frequency: 2-3x/week for 1-2 weeks Goals: Fdc Goals: Patient will remain free from aspiration-related illness, malnutrition, and dehydration. Short Term Goals: Patient will tolerate L5 minced moist Diet and Thin liquids without overt s/s aspiration across 2/2 visits. NAUTICAL INSTRUMENT MECHANIC CPT Code: 12789 Clinical Swallowing Evaluation TOTAL TIME: 25 Minutes [id number]
[2024-05-12] MEDS: Insulin Aspart 300 UNITS/3 ML PEN SC (12:12)
[2024-05-12 12:13] LABS: Bilirubin Negative (Negative); Blood Moderate (Negative); Clarity Clear (Clear); Glucose Negative (Negative); Ketones 15 mg/dL (Negative); Leukocyte Esterase Small (Negative); Nitrite Negative (Negative); Urobilinogen 0.2 mg/dL (Up to 0.2)
[2024-05-12] MEDS: Potassium Chloride Liquid 20 MEQ PKT 40 MEQ PO (12:13)
[2024-05-12 12:27] LABS: Bacteria Rare HPF (Negative); C & S Indicated? Yes; Casts 3-5 Hyaline LPF (Negative); Crystals Negative HPF (Negative); Epithelial Cells Rare HPF (Negative); Mucus Negative (Negative)
--- NOTE | 2024-05-12 12:49 | DSE_ITS ---
Date of service: 05/12/24 Time of Service: 12:50 DS: Diagnosis Discharge Diagnosis (1) Septic shock: Status: Resolved (2) Severe sepsis: Status: Acute (3) Pneumonia: Status: Inactive (4) Elevated lactic acid level: Status: Acute (5) Diabetes mellitus type 2, insulin dependent: Status: Acute (6) UTI (urinary tract infection): Status: Acute (7) Parkinsonism: Status: Acute (8) Bipolar 1 disorder: Status: Chronic (9) Decubitus ulcer: Status: Acute (10) Hypothyroidism: Discharge Plan Disposition Patient Disposition: [facility]itentiary Facility(SNF) Condition: Improving Discharge Details Reason For Visit: difficulty breathing Admit Date/Time: 05/09/24 13:19 Admit Provider: Maria Isabel Saldana Attending Provider: Maria Isabel Saldana Primary Care Provider: Agueda Bingham Hospital Course Hospital Course: Reason for Admission: The patient, a 60-year-old female from a retirement facility, was admitted for evaluation of altered mental status and a congested cough. Her past medical history includes cerebrovascular accident (CVA) with residual speech impairment and right-sided deficit, frequent urinary tract infections on nitrofurantoin prophylaxis, a suprapubic catheter, diabetes type 2, and bipolar disorder. ED Findings: * Vital Signs: Tachypnea, tachycardia, hypotension * Oxygen Requirements: Chronic oxygen at 2 L; no increase in requirement * Initial Treatment: Administered 2 L Ringer's lactate; hypotension improved with fluid resuscitation * Laboratory Results: * Leukocytosis * Elevated lactic acid level * Creatinine level 1.6 (consistent with baseline) * Imaging: * Chest X-ray: Questionable perihilar opacity, suggestive of pneumonia * Cultures: * Blood cultures: No growth x 48 hours * Urine culture: Mixed gram-negative irving * MRSA swab: Negative Clinical Course: The patient was admitted to the medical floor for treatment of pneumonia and further assessment. She remained stable throughout her hospital stay. Evaluation by Speech-Language Pathology (AUDIO VISUAL PRODUCTION SPECIALIST) and Dietary indicated no anticipated AUDIO VISUAL PRODUCTION SPECIALIST needs post-discharge. Dietary recommendations include minced moist solids and naturally pureed foods with feeding assistance as needed. Continued monitoring for signs of aspiration and implementation of safety precautions were emphasized. Wound Care: The patient was seen by the wound care nurse and has pressure ulcers of different stages on: * Left buttock * Sacrum * Left heel * Left dorsal foot Discharge Condition: * Vital Signs: Stable * Complaints: No new complaints including blurred vision, chest pain, nausea, vomiting, abdominal pain, diarrhea, or shortness of breath * Diet: Tolerating liquids and regular diet well * Suprapubic Catheter: Changed * Temperature: Afebrile Discharge Instructions: * Medications: * Start cefpodoxime 200 mg orally twice a day for a total of 10 days * Recommend potassium supplementation 20 meq daily (formulary uncertain, not ordered) * BMP in 4 days (ordered) * Dietary Recommendations: * Minced moist solids and naturally pureed foods * Provide feeding assistance as needed * Wound Care: * Ongoing management of pressure ulcers * Monitoring: * Continued monitoring for signs of aspiration * Implement safety precautions for swallowing and nutritional intake Home Meds and New Rx's Prescriptions: New cefpodoxime 200 mg tablet 200 mg PO BID Qty: 14 0RF Rx Instructions: must administer with a meal/food Continued metformin 500 mg tablet 500 mg PO DAILY lactase [Lactaid] 3,000 unit tablet 9,000 unit PO TID Rx Instructions: administer with meals and/or snacks simethicone 180 mg capsule 180 mg PO TID gabapentin 600 mg tablet 600 mg PO BID quetiapine 100 mg tablet 100 mg PO TID trazodone 50 mg tablet 50 mg PO BID atorvastatin 20 mg Tablet 20 mg PO QPM Qty: 0 0RF nitrofurantoin monohyd/m-cryst [Macrobid] 100 mg capsule 50 mg PO DAILY mirtazapine 15 mg Tablet 15 mg PO QHS lamotrigine [Lamictal] 25 mg Tablet 50 mg PO DAILY Qty: 1 0RF acetaminophen 500 mg Tablet 500 mg PO BID fluticasone propionate [Flonase Allergy Relief] 50 mcg/actuation [place],Suspension 1 spray INTRANASAL BID Trulicity 1.5 mg/0.5 mL pen injector 1.5 mg SUBCUT .weekly on Sunday Patient Comments: 0.5 ML Q week on Sunday Rx Instructions: weekly levothyroxine 100 mcg Tablet 100 mcg PO QHS Patient Comments: takes QHS carbidopa-levodopa 25-100 mg Tablet 1 tab PO QID B-complex with vitamin C Capsule 1 cap PO DAILY omeprazole 20 mg capsule,delayed release(DR/EC) 40 mg PO DAILY lorazepam 0.5 mg Tablet 0.5 mg PO BID polyethylene glycol 3350 [Miralax] 17 gram powder in packet 17 g PO BID potassium chloride [Klor-Con M10] 10 mEq tablet,ER particles/crystals 10 meq PO DAILY bupropion HCl [Wellbutrin XL] 150 mg tablet extended release 24 hr 150 mg PO DAILY loratadine [Claritin] 10 mg tablet 10 mg PO DAILY magnesium gluconate 12.5 mg magne- sium (250 mg) tablet 500 mg PO BID ropinirole 0.5 mg tablet 0.5 mg PO QHS tamsulosin 0.4 mg capsule 0.4 mg PO DAILY ferrous gluconate 324 mg (37.5 mg iron) tablet 324 mg PO DAILY mirabegron [Myrbetriq] 25 mg tablet extended release 24 hr 50 mg PO DAILY tramadol 50 mg Tablet 50 mg PO HS lactulose 10 gram/15 mL solution 10 g PO DAILY ipratropium-albuterol 0.5 mg-3 mg(2.5 mg base)/3 mL solution for nebulization 3 ml inhalation BID Lactobacillus acidoph-pectin Capsule 1 cap PO BID cranberry extract [Cranberry Concentrate] 500 mg capsule 500 mg PO DAILY Rx Instructions: administer with a meal albuterol sulfate [Ventolin HFA] 90 mcg/actuation Hfa Aerosol Inhaler 1 puff INHALATION BID metformin 500 mg tablet extended release 24 hr 500 mg PO DAILY calcium carbonate [Tums] 200 mg calcium (500 mg) tablet,chewable 200 mg PO Q4H PRN PRN docusate sodium 100 mg capsule 200 mg PO BID PRN tramadol 50 mg tablet 50 mg PO Q6H PRN Orajel 3X Mouth Sores 20-0.1-0.15 % gel 1 applic mucous membrane QID PRN PRN lidocaine 5 % adhesive patch,medicated 1 patch topical Q24H Discharge Instructions Activity:: Activity as Tolerated Equipment/Supplies:: Oxygen (L/min Below) Diet:: see deischarge summary Discharge Orders Discharge Orders: Discharge Order (Routine); Ordered 05/12/24 Ordered By: Mira Ballesteros Other Ambulatory Orders: Basic Metabolic Panel (Routine) Timeframe: [id number] Facility: [facility] - Location: Laboratory Outpatient - [facility] Ordered By: Mira Ballesteros DS: Summary Time Spent with Patient providing and/or coordinating discharge services: Greater than 30 minutes Status at Discharge Functional status at discharge: wheelchair bound Overall status at discharge: patient is progressing back to baseline Mental Status: other Speech and Movement: slowed movement and slurred speech Mood: other Affect: blunted Quality:SDOH Health Related Social Needs: No Data to Display Exam Narrative Exam Narrative: * Constitutional: Patient is alert, comfortable, and without acute distress. Speech remains impaired due to previous cerebrovascular accident (CVA) sequelae. * Neurological: Patient is oriented to self, time, and place. No new neurological deficits observed; previous right-sided deficits remain evident. * Respiratory: Lungs clear in upper regions; decreased breath sounds noted at the bases. No increased oxygen requirement. * Cardiovascular: Heart rhythm regular with normal heart sounds (S1, S2). No murmurs detected. * Gastrointestinal: Abdomen is large, distended but soft and non-tender. Bowel sounds are present. * Genitourinary: Suprapubic catheter in place, recently changed. * Integumentary: Stage I and II decubitus ulcers on buttocks; non-stageable ulcer on left buttock. Wound consult has been completed. * Extremities: Lower extremities show contractures. * Psychiatric: RASS score of 0 (alert and calm), mood and affect are normal and congruent. Psych Mental Status: other Speech and Movement: slowed movement and slurred speech Mood: other Affect: blunted DS: Data Vitals/I&O Vitals and I&O: Vital Signs Temperature 36.7 C 05/12/24 07:54 Temperature Source Tympanic 05/12/24 07:54 Pulse 87 05/12/24 07:54 Pulse Rhythm Regular 05/12/24 11:47 Pulse 93 H 05/09/24 14:05 Respiratory Rate 19 05/12/24 07:54 Respiratory Effort Non-Labored 05/12/24 11:47 Respiratory Depth Normal 05/12/24 11:47 Respiratory Pattern Irregular 05/12/24 11:47 Blood Pressure 108/68 05/12/24 07:54 Blood Pressure Mean 76 05/09/24 14:05 Blood Pressure Position Supine 05/09/24 10:55 Pulse Oximetry 95 05/12/24 07:54 Oxygen Delivery Method Room Air 05/12/24 07:54 Oxygen Flow Rate 0 05/12/24 07:54 Pain Level 8 05/12/24 07:54 Comment RN Notified 05/10/24 23:30 Intake & Output 05/11/24 05/12/24 05/12/24 23:59 11:59 23:59 Intake Total 1710 / 1720 100 / 100 Output Total 600 / 800 Balance 1110 / 920 100 / 100 Intake: IV 1510 / 1520 100 / 100 Oral 200 / 200 Output: Urine 600 / 800 Other: Urine Color Yellow Yellow Urine Appearance Clear Comment no output in suprapubic catheter for 2 hours. Attempted to irrigate the catheter to increase patency. irrigated with 50cc of sterile water. There was limited return of urine or irrigation fluid. few streaks of blood. Checked suprapubic insertion site and there is minor leakage around insertion site. Stool Size Large Stool Characteristics Liquid Brown Data Completed and Pending Labs on day of discharge: Labs from last 24 hours 05/12/24 05/12/24 05/11/24 12:00 07:00 14:45 WBC 3.65 L RBC 2.96 L Hgb 9.1 L Hct 29.6 L MCV 100 H MCH 30.7 MCHC 30.7 L RDW 21.6 H Plt Count 168 MPV 9.5 Immature Gran % 0.3 Neutrophils % 55.1 Lymphocytes % 33.7 Monocytes % 8.2 Eosinophils % 2.2 Basophils % 0.5 Nucleated RBC % 0.0 Absolute Neutrophils 2.01 Absolute Lymphocytes 1.23 Absolute Monocytes 0.30 Absolute Eosinophils 0.08 Absolute Basophils 0.02 RBC Morphology See Below Anisocytosis 2+ Sodium 146 H 143 Potassium 3.1 L 3.4 L D Chloride 113 H 112 H Carbon Dioxide 24.4 22.1 Anion Gap 8.6 8.9 BUN 11 13 Creatinine 0.7 1.0 Est GFR (CKD-EPI 2020) 96.52 62.91 Glucose 99 164 H Calcium 8.2 L 8.6 Magnesium 1.8 Urine Color Yellow Urine Clarity Clear Urine pH 6.0 Ur Specific [place] 1.020 Urine Protein 30 H Urine Ketones 15 H Urine Blood Moderate H Urine Nitrite Negative Urine Bilirubin Negative Urine Urobilinogen 0.2 Ur Leukocyte Esterase Small H Urine RBC 3-5 H Urine WBC 10-20 H Ur Epithelial Cells Rare Urine Crystals Negative Urine Bacteria Rare Urine Casts 3-5 Hyaline Urine Mucus Negative Ur Culture Indicated? Yes Urine Glucose Negative Vancomycin Trough 19.3 MRSA (TEM-PCR) 05/11/24 14:23 WBC RBC Hgb Hct MCV MCH MCHC RDW Plt Count MPV Immature Gran % Neutrophils % Lymphocytes % Monocytes % Eosinophils % Basophils % Nucleated RBC % Absolute Neutrophils Absolute Lymphocytes Absolute Monocytes Absolute Eosinophils Absolute Basophils RBC Morphology Anisocytosis Sodium Potassium Chloride Carbon Dioxide Anion Gap BUN Creatinine Est GFR (CKD-EPI 2020) Glucose Calcium Magnesium Urine Color Urine Clarity Urine pH Ur Specific [place] Urine Protein Urine Ketones Urine Blood Urine Nitrite Urine Bilirubin Urine Urobilinogen Ur Leukocyte Esterase Urine RBC Urine WBC Ur Epithelial Cells Urine Crystals Urine Bacteria Urine Casts Urine Mucus Ur Culture Indicated? Urine Glucose Vancomycin Trough MRSA (TEM-PCR) Cancelled 05/12/24 12:00 Urine - Reflex from Urine Culture - Pending Preliminary micro results at discharge 05/12/24 12:00 Urine Culture - Pending Urine - Reflex from Ua 05/09/24 11:28 Blood Culture - Preliminary Blood NO GROWTH 48 HOURS 05/09/24 11:08 Blood Culture - Preliminary Blood NO GROWTH 48 HOURS PFSH All Active Problems (Updated 05/12/24 @ 12:46 by Mira Ballesteros NP) Hypokalemia (Acute) Decubitus ulcer (Acute) Elevated lactic acid level (Acute) Sepsis (Acute) Pneumonia (Acute) Severe sepsis (Acute) Diabetes mellitus type 2, insulin dependent (Acute) Diarrhea (Acute) Bacteremia (Acute) UTI (urinary tract infection) (Acute) Hypoalbuminemia (Acute) Hyperglycemia (Acute) High anion gap metabolic acidosis (Acute) Anemia (Chronic) Advanced care planning/counseling discussion (Acute) Gallstones (Acute) Tardive dyskinesia (Acute) Parkinsonism (Acute) Bipolar 1 disorder (Chronic) Bipolar affective disorder, current episode depressed (Acute) rule out bipolar disorder reported by patient. Antiepileptics maybe preventing manic episode. Major depressive disorder, recurrent, severe with psychotic features (Acute) Current presentation is depression. She may have bipolar affective disorder. Ambulatory dysfunction (Chronic) Hemiparesis affecting right side as late effect of cerebrovascular accident (Chronic) Dysphagia as late effect of cerebrovascular accident (CVA) (Chronic) Dysarthria as late effect of cerebrovascular accident (CVA) (Acute) Medical History Acute bronchitis Diarrhea Abdominal bloating Abdominal pain Pyelonephritis Microcytic anemia Emphysematous pyelonephritis Hydronephrosis of right kidney Pyuria due to bacterial urinary tract infection Arthritis of left shoulder region Left rotator cuff tear Cough Ileus History of stroke Palliative care encounter Diverticulosis Nephrolithiasis Uterine mass likely a fibroid Cholelithiasis with acute cholecystitis s/p cholecystostomy and stone extraction in 2014 ([facility]), tube now pulled. 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 UTI (urinary tract infection) Chronic chest pain Constipation Staghorn calculus Autoimmune disorder Neck pain UTI (urinary tract infection) Aphasia as late effect of cerebrovascular accident Surgical History History of extraction of renal calculus 12/13/2018 - [facility] S/P cystoscopy with ureteral stent placement [facility] 11/2018 History of hip surgery right H/O wrist surgery H/O foot surgery History of lumbosacral spine surgery Abnormal cholangiogram H/O cervical spine surgery Status post creation of urethral sling by suprapubic approach Family History Mother Stroke Social History Smoking/Tobacco Use Status: Former Tobacco Use Smoking risk assessment performed?: Yes Alcohol Intake: former Drug use: Current Sobriety Substance use type: former substance user and IV drugs Housing: prison Number of Children: 5 Education Level: elementary school Details: 6th grade, special ed, left school age 16. Current gender identity: female What is your relationship status?: Panel score (0-1 are the most socially isolated patients): 0 What type of physical activity do you participate in: none Do you feel safe at home: Yes Do you feel safe in your relationship?: Yes Additional Social history: [facility] Time Spent with Patient Time Spent with Patient: 45-69 minutes Time was spent: preparing to see the patient(eg.review tests), ordering medications,tests, procedures, referring, communicating with other health manager primary care, indepentently interpreting results, counseling the patient and care coordination
--- NOTE | 2024-05-12 13:00 | CMDISCH_ITS ---
Date of service: 05/12/24 Time of Service: 13:01 LACE Index Scoring Tool Questions: Length of Stay (in days): 3 Was the patient admitted via the E.D.?: Yes Comorbidities: Cerebrovascular Disease and Diabetes w/o Complication E.D. Visits: 2 Answers: Total Score: 10 Risk of Readmission: High Risk Care Management Discharge Plan Reason for Hospitalization: severe sepsis, pneumonia Discharge Plan: Ginger returned to the [facility] today, where she resides. She was transported via [facility], coordinated by CM. She will follow up with facility providers and her discharge plan of care. Patient/Family Education Needs: Review discharge instructions and limitations, discussion of self care instructions including ask me three. Services Needed at Discharge: Usp Facility ([facility]) and Transportation (EMS, [facility]) SDOH Health Related Social Needs: No Data to Display
== END 2024-05-12 13:39 | disposition skilled nursing facility (03) | DRG 871 ==
LOC: ER 10:50 → MS 14:51
PROVIDERS: Nurse Practitioner Family; Admitting Provider Nurse Practitioner Acute Care; Emergency Provider Emergency Medicine; PCP Family Medicine; Visit Provider Nurse Practitioner Acute Care
DX: A41.9 Sepsis, unspecified organism (principal); J18.9 Pneumonia, unspecified organism; R65.21 Severe sepsis with septic shock; N39.0 Urinary tract infection, site not specified; E87.20 Acidosis, unspecified; I69.351 Hemiplegia and hemiparesis following cerebral infarction affecting right dominant side; E27.40 Unspecified adrenocortical insufficiency; G93.49 Other encephalopathy; L97.428 Non-pressure chronic ulcer of left heel and midfoot with other specified severity; R74.8 Abnormal levels of other serum enzymes; E11.9 Type 2 diabetes mellitus without complications; F31.9 Bipolar disorder, unspecified; E03.9 Hypothyroidism, unspecified; E87.6 Hypokalemia; Z79.84 Long term (current) use of oral hypoglycemic drugs; Z79.4 Long term (current) use of insulin; G20.C Parkinsonism, unspecified; I69.322 Dysarthria following cerebral infarction; I69.391 Dysphagia following cerebral infarction; R13.10 Dysphagia, unspecified; R26.2 Difficulty in walking, not elsewhere classified; G24.01 Drug induced subacute dyskinesia; D50.9 Iron deficiency anemia, unspecified; I10 Essential (primary) hypertension; M51.36 Other intervertebral disc degeneration, lumbar region; E66.9 Obesity, unspecified; N31.9 Neuromuscular dysfunction of bladder, unspecified; D89.89 Other specified disorders involving the immune mechanism, not elsewhere classified; K59.00 Constipation, unspecified; L89.320 Pressure ulcer of left buttock, unstageable; L89.322 Pressure ulcer of left buttock, stage 2; Z93.51 Cutaneous-vesicostomy status; L89.156 Pressure-induced deep tissue damage of sacral region; L89.626 Pressure-induced deep tissue damage of left heel
CPT/HCPCS: 00123; 36415; 36416; 80048; 80053; 82805; 82962; 84145; 87040; 87635; 87641; 92610; 93005; 93308; 96365; 96366; 96368; 97110; 97163; 99291; J1650; 71045; 71046; 80202; 81003; 81015; 83605; 83735; 84484; 85025; 87086; 93010; 94668; 94760; 99223; 99233; 99239; J0456; J0692; J1815; J3372; J3475; J3490

== ENCOUNTER 2024-09-08 18:19 | Outpatient (REF) | payer MEDICAID, SELFPAY ==
[2024-09-08 20:49] LABS: ALT 11 U/L (14-59); AST 41 U/L (15-37); Albumin 2.1 g/dL (3.4-5.0); Alkaline Phosphatase 134 U/L (46-116); Anion Gap 7.6 mmol/L (3-11); BUN 11 mg/dL (7-18); Bilirubin, Total 0.21 mg/dL (0.2-1.0); CO2 25.4 mmol/L (21.0-32.0); CREATININE 0.8 mg/dL (0.55-1.02); Calcium 8.8 mg/dL (8.5-10.1); Chloride 112 mmol/L (98-107); Estimated GFR 82.23 (mL/min/1.73m2); Glucose 160 mg/dL (74-106); Potassium 5.1 mmol/L (3.5-5.1); Sodium 145 mmol/L (136-145); Total Protein 6.5 g/dL (6.4-8.2)
== END 2024-09-08 18:20 | disposition home or self-care (01) ==
LOC: LBN 18:19
PROVIDERS: PCP Family Medicine; Visit Provider Nurse Practitioner Gerontology
DX: E87.6 Hypokalemia (principal)
CPT/HCPCS: 80053

== ENCOUNTER 2024-10-20 19:09 | Outpatient (REF) | payer MEDICAID, SELFPAY ==
[2024-10-20 18:59] LABS: Hemoglobin A1C 5.7 % (<5.7)
[2024-10-20 19:12] LABS: ALT 19 U/L (14-59); AST 47 U/L (15-37); Albumin 2.5 g/dL (3.4-5.0); Alkaline Phosphatase 89 U/L (46-116); BUN 10 mg/dL (7-18); Bilirubin, Total 0.36 mg/dL (0.2-1.0); CREATININE 0.8 mg/dL (0.55-1.02); Calcium 9.3 mg/dL (8.5-10.1); Chloride 108 mmol/L (98-107); Estimated GFR 82.23 (mL/min/1.73m2); Glucose 141 mg/dL (74-106); Magnesium 1.4 mg/dL (1.8-2.4); Potassium 4.3 mmol/L (3.5-5.1); Sodium 143 mmol/L (136-145); TSH (W/Ref FT4) 10.83 uIU/mL (0.36-3.74); Total Protein 6.6 g/dL (6.4-8.2)
[2024-10-20 20:14] LABS: FREE T4 0.91 ng/dL (0.76-1.46)
== END 2024-10-20 19:10 | disposition home or self-care (01) ==
LOC: LBN 19:09
PROVIDERS: PCP Family Medicine; Visit Provider Nurse Practitioner Gerontology
DX: E87.6 Hypokalemia (principal); E11.9 Type 2 diabetes mellitus without complications; E83.42 Hypomagnesemia
CPT/HCPCS: 80053; 83036; 83735; 84439; 84443

== ENCOUNTER 2024-11-07 00:29 | Outpatient (CLI) | payer MEDICAID, SELFPAY ==
--- NOTE | 2024-11-07 11:43 | DI.RAD_ITS ---
Exam(s) XR LUMBAR SPINE COMPLETE EXAM: XR LUMBAR SPINE COMPLETE CLINICAL HISTORY: M54.16 Lumbar radiculpathy. TECHNIQUE: 2D digital imaging was performed. Five views. COMPARISON: CT CT CHEST/ABD/PEL W from 03/26/2024 FINDINGS: Exam is limited by large amount of overlying bowel gas. There is no suggestion of bowel obstruction . BONES: No fracture or destructive lesion. The vertebral body heights are maintained. facet hypertr ophy identified L4-5 and L5-S1.. DISKS: There is severe narrowing of the L5-S1 disc space. The remaining intervertebral disc spaces a re maintained. ALIGNMENT: Lumbar spinal alignment is within normal limits. SOFT TISSUE: Arterial calcifications. IMPRESSION: Severe degenerative disc changes and facet degenerative changes at L5-S1. Facet degenerative changes at L4-5 also present. DATA REPOSITORY: RADIATION DOSE DELIVERED:
--- NOTE | 2024-11-07 11:44 | DI.RAD_ITS ---
Exam(s) XR HIP PELVIS ADULT BL EXAM: XR HIP PELVIS ADULT BL CLINICAL HISTORY: M54.16 Lumbar radiculopathy. TECHNIQUE: 2D digital imaging was performed. Five views. COMPARISON: CR,XR XR ABDOMEN FLAT PLATE from 02/09/2023 FINDINGS: Exam is limited by overlying bowel gas. The sacrum and right ilium are mainly obscured. The there i s also artifact from overlying clothing. BONES: No acute fracture is present. No bony destructive lesion is seen. Bones are osteopenic. JOINTS: No dislocation present. The hip joint spaces are maintained. Mild bilateral acetabular spurr ing. SI joints and pubic symphysis show mild spurring. SOFT TISSUE: Severe vascular calcifications. IMPRESSION: Mild degenerative changes. DATA REPOSITORY: RADIATION DOSE DELIVERED:
== END 2024-11-07 00:49 ==
PROVIDERS: PCP Family Medicine; Visit Provider Nurse Practitioner Gerontology
DX: M54.16 Radiculopathy, lumbar region (principal)
CPT/HCPCS: 73521; 72110

== ENCOUNTER 2024-12-03 22:32 | Outpatient (REF) | payer MEDICAID, SELFPAY ==
[2024-12-03 20:25] LABS: Magnesium 1.3 mg/dL (1.8-2.4); TSH (W/Ref FT4) 4.14 uIU/mL (0.36-3.74); Vitamin B12 409 pg/mL (193-986); Vitamin D 25 Total 30 ng/mL (30-100)
[2024-12-04 17:32] LABS: T4, Free 1.2 ng/dL (0.8-2.2)
== END 2024-12-03 22:33 | disposition home or self-care (01) ==
LOC: LBN 22:32
PROVIDERS: PCP Family Medicine; Visit Provider Nurse Practitioner Gerontology
DX: R53.82 Chronic fatigue, unspecified (principal); D51.9 Vitamin B12 deficiency anemia, unspecified; E55.9 Vitamin D deficiency, unspecified; E83.42 Hypomagnesemia
CPT/HCPCS: 82306; 82607; 83735; 84439; 84443

== ENCOUNTER 2024-12-29 18:34 | Outpatient (REF) | payer MEDICAID, SELFPAY ==
[2024-12-29 19:04] LABS: Absolute Basophil Count 0.01 10^3/uL (0.0-0.2); Absolute Eosinophil Count 0.05 10^3/uL (0.0-0.7); Absolute Lymphocyte Count 1.01 10^3/uL (1.2-3.4); Basophils % 0.3 %; Eosinophils % 1.7 %; HCT 33.6 % (36.0-46.0); MCH 31.2 pg (27.0-33.0); MCHC 29.8 % (32.0-36.0); MCV 105 fL (80-95); MPV 10.3 fL (8.0-11.0); Monocytes % 6.7 %; Neutrophils % 57.3 %; Platelet Count 145 10^3/uL (130-400); RBC 3.21 10^6/uL (3.93-5.22); RDW 13.7 % (11.7-14.6); WBC 2.97 10^3/uL (4.4-10.8)
[2024-12-29 19:24] LABS: ALT 17 U/L (14-59); AST 40 U/L (15-37); Albumin 2.7 g/dL (3.4-5.0); Alkaline Phosphatase 117 U/L (46-116); Anion Gap 8.1 mmol/L (3-11); BUN 8 mg/dL (7-18); Bilirubin, Total 0.4 mg/dL (0.2-1.0); CO2 25.9 mmol/L (21.0-32.0); CREATININE 0.7 mg/dL (0.55-1.02); Calcium 9.4 mg/dL (8.5-10.1); Chloride 108 mmol/L (98-107); Estimated GFR 96.52 (mL/min/1.73m2); Glucose 352 mg/dL (74-106); Magnesium 1.4 mg/dL (1.8-2.4); Potassium 4.4 mmol/L (3.5-5.1); Sodium 142 mmol/L (136-145); TSH (W/Ref FT4) 2.58 uIU/mL (0.36-3.74); Total Protein 6.6 g/dL (6.4-8.2)
[2024-12-29 19:54] LABS: Hemoglobin A1C 7.5 % (<5.7)
== END 2024-12-29 18:35 | disposition home or self-care (01) ==
LOC: LBN 18:34
PROVIDERS: PCP Family Medicine; Visit Provider Nurse Practitioner Gerontology
DX: E11.9 Type 2 diabetes mellitus without complications (principal); E05.00 Thyrotoxicosis with diffuse goiter without thyrotoxic crisis or storm; E83.42 Hypomagnesemia; D72.829 Elevated white blood cell count, unspecified; E87.6 Hypokalemia
CPT/HCPCS: 80053; 83036; 83735; 84443; 85025

== ENCOUNTER 2025-02-02 19:35 | Outpatient (REF) | payer MEDICAID, SELFPAY ==
[2025-02-02 18:08] LABS: Bilirubin Negative (Negative); Blood Negative (Negative); Clarity Sl Cloudy (Clear); Glucose Negative (Negative); Ketones Trace mg/dL (Negative); Leukocyte Esterase Moderate (Negative); Nitrite Positive (Negative); Urobilinogen 0.2 mg/dL (Up to 0.2)
[2025-02-02 18:20] LABS: Bacteria Packed HPF (Negative); C & S Indicated? C&S Done As Ordered; Casts Negative LPF (Negative); Crystals Moderate Amorphous HPF (Negative); Epithelial Cells Rare HPF (Negative); Mucus Negative (Negative); Other Cells Rare Transitional (Negative); RBC 0-2 HPF (0-2); WBC >50 HPF (0-5)
== END 2025-02-02 19:36 | disposition home or self-care (01) ==
LOC: LBN 19:35
PROVIDERS: PCP Family Medicine; Visit Provider Urology
DX: N39.0 Urinary tract infection, site not specified (principal); R32 Unspecified urinary incontinence; Z01.818 Encounter for other preprocedural examination; R82.89 Other abnormal findings on cytological and histological examination of urine
CPT/HCPCS: 81003; 81015; 87086

== ENCOUNTER 2025-02-12 10:17 | Day surgery (SDC) | payer MEDICAID, SELFPAY ==
--- NOTE | 2025-02-12 06:26 | ANES.PREOP_ITS ---
General Info Date of Service Date Performed: 02/12/25 Height: 5 ft 2 in Weight: 74.389 kg Body Mass Index (BMI): 29.9 Surgical Procedure: Operation Date: 02/12/25 11:55 Proposed Procedure Side Surgeon p Cystoscopy/Transurethral Injection of Marcroplastique Danny Alvarez MD Meds Allergies and Home Medications Allergies Allergy/AdvReac Type Severity Reaction Status Date / Time naproxen (From Aleve) Allergy Unknown Itching Verified 02/12/25 10:33 Penicillins Allergy Unknown Itching Verified 02/12/25 10:33 propoxyphene Allergy Unknown Itching Verified 02/12/25 10:33 Sulfa (Sulfonamide Allergy Unknown Itching Verified 02/12/25 10:33 Antibiotics) methadone Allergy Nausea Verified 02/12/25 10:33 Home Medication ?Medication ?Instructions ?Recorded mirtazapine 15 mg tablet 15 mg PO QHS 03/26/20 lamotrigine 25 mg tablet (Lamictal) 50 mg (2 x 25 mg) PO DAILY #1 tab 04/08/20 metformin 500 mg tablet 500 mg PO DAILY 12/20/20 lactase 3,000 unit tablet (Lactaid) 9,000 unit PO TID 06/22/21 acetaminophen 500 mg tablet 500 mg PO BID 06/01/22 fluticasone propionate 50 1 spray intranasal BID 06/01/22 mcg/actuation nasal spray,suspension (Flonase Allergy Relief) B-complex with vitamin C 1 cap PO DAILY 11/09/22 carbidopa 25 mg-levodopa 100 mg 1 tab PO QID 11/09/22 tablet levothyroxine 100 mcg tablet 100 mcg PO QHS 11/09/22 atorvastatin 20 mg tablet 20 mg PO QPM #0 tabs 11/28/22 lorazepam 0.5 mg tablet 0.5 mg PO BID 12/24/22 gabapentin 600 mg tablet 600 mg PO BID 01/19/23 quetiapine 100 mg tablet 100 mg PO TID 01/19/23 simethicone 180 mg capsule 180 mg PO TID 01/19/23 trazodone 50 mg tablet 50 mg PO BID 01/19/23 omeprazole 20 mg capsule,delayed 40 mg PO DAILY 07/23/23 release bupropion HCl 150 mg 24 hr tablet, 150 mg PO DAILY 12/11/23 extended release (Wellbutrin XL) ferrous gluconate 324 mg (37.5 mg 324 mg PO DAILY 12/11/23 iron) tablet magnesium gluconate 12.5 mg 500 mg PO BID 12/11/23 magnesium (250 mg) tablet polyethylene glycol 3350 17 gram 17 g PO BID 12/11/23 oral powder packet (Miralax) potassium chloride 10 mEq 10 meq PO DAILY 12/11/23 tablet,extended release(part/cryst) (Klor-Con M) ropinirole 0.5 mg tablet 0.5 mg PO QHS 12/11/23 tramadol 50 mg tablet 50 mg PO HS 12/11/23 nitrofurantoin 50 mg PO DAILY 03/26/24 monohydrate/macrocrystals 100 mg capsule (Macrobid) Lactobacillus acidophilus-pectin 1 cap PO BID 05/09/24 capsule albuterol sulfate 90 mcg/actuation 1 puff inhalation BID 05/09/24 aerosol inhaler (Ventolin HFA) cranberry extract 500 mg capsule 500 mg PO DAILY 05/09/24 (Cranberry Concentrate) ipratropium 0.5 mg-albuterol 3 mg 3 ml inhalation BID 05/09/24 (2.5 mg base)/3 mL nebulization soln lactulose 10 gram/15 mL oral 10 g PO DAILY 05/09/24 solution benzocaine 20 %-menthol 0.1 %-zinc 1 applic mucous membrane QID PRN 05/12/24 chloride 0.15 % mucosal gel PRN (Orajel 3X Mouth Sores) calcium carbonate (Tums) 200 mg PO Q4H PRN PRN 05/12/24 cefpodoxime 200 mg tablet 200 mg PO BID #14 tabs 05/12/24 docusate sodium 100 mg capsule 200 mg PO BID PRN 05/12/24 lidocaine 5 % topical patch 1 patch topical Q24H 05/12/24 tramadol 50 mg tablet 50 mg PO Q6H PRN 05/12/24 mirabegron 50 mg tablet,extended 50 mg PO DAILY #90 tabs 01/16/25 release 24 hr (Myrbetriq) methocarbamol BID 02/12/25 Current Visit Medications: Current Medications Generic Name Dose Route Start Last Admin Trade Name Freq PRN Reason Stop Dose Admin Ringer's Solution 1,000 mls @ 80 mls/hr 02/12/25 06:00 IV 02/12/25 23:59 INFUSION HANSA IV Miscellaneous Supplies 1 each 02/12/25 06:00 Iv Access IV 02/12/25 23:59 DIRECTED HANSA Sodium Chloride 0 ml 02/12/25 06:00 Normal Saline Flush 10 Ml Syr IV 02/12/25 23:59 PRN PRN Sodium Chloride 0 ml 02/12/25 06:00 Normal Saline 10 Ml Vial IJ 02/12/25 23:59 DIRECTED PRN Sterile Water 0 ml 02/12/25 06:00 Water,Injection,Sterile 10 Ml Vial IJ 02/12/25 23:59 DIRECTED PRN PFSH Active Problems Active Problems: Problem Status Onset Code Nail dystrophy Acute L60.3 Vulvar irritation Acute N90.89 Decubitus ulcer Acute L89.90 Sepsis Acute A41.9 Pneumonia Acute J18.9 Bacteremia Acute R78.81 Diarrhea Acute R19.7 Hypoalbuminemia Acute E88.09 Hyperglycemia Acute R73.9 High anion gap metabolic acidosis Acute E87.29 Anemia Chronic D64.9 Advanced care planning/counseling discussion Acute Z71.89 Gallstones Acute K80.20 Tardive dyskinesia Acute G24.01 Bipolar affective disorder, current episode depressed Acute F31.30 Major depressive disorder, recurrent, severe with psychotic features Acute F33.3 Ambulatory dysfunction Chronic R26.2 Dysarthria as late effect of cerebrovascular accident (CVA) Acute I69.322 Dysphagia as late effect of cerebrovascular accident (CVA) Chronic I69.391 Hemiparesis affecting right side as late effect of cerebrovascular accident Chronic I69.351 Medical History Medical History (Updated 02/12/25 @ 12:22 by Danny Alvarez MD) Diabetes mellitus type 2, insulin dependent Parkinsonism Bipolar 1 disorder Acute bronchitis Diarrhea Abdominal bloating Abdominal pain Pyelonephritis Microcytic anemia Emphysematous pyelonephritis Hydronephrosis of right kidney Pyuria due to bacterial urinary tract infection Arthritis of left shoulder region Left rotator cuff tear Cough Ileus History of stroke (R) Sided hemiparesis and (R) contracture of elbow Palliative care encounter Diverticulosis Nephrolithiasis Uterine mass likely a fibroid Cholelithiasis with acute cholecystitis s/p cholecystostomy and stone extraction in 2014 ([facility]), tube now pulled. 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 UTI (urinary tract infection) Chronic chest pain Constipation Staghorn calculus Autoimmune disorder Neck pain UTI (urinary tract infection) Aphasia as late effect of cerebrovascular accident Surgical History Surgical History History of extraction of renal calculus 12/13/2018 - [facility] S/P cystoscopy with ureteral stent placement [facility] 11/2018 History of hip surgery right H/O wrist surgery H/O foot surgery History of lumbosacral spine surgery Abnormal cholangiogram H/O cervical spine surgery Status post creation of urethral sling by suprapubic approach Tobacco Smoking/Tobacco Use Status: Unknown Passive smoking exposure: No Alcohol Alcohol Intake: former Substance Use Substance use: Current Sobriety Substance use type: former substance user and IV drugs Vital Signs and Lab Results Lab Results Blood Type / Crossmatch: No Data to Display Complete Blood Count: No Data to Display Complete Metabolic Panel: No Data to Display Liver Function Panel: No Data to Display Coagulation Panel: No Data to Display Cardiac Panel: No Data to Display Arterial Blood Gas: No Data to Display Venous Blood Gas: No Data to Display Pancreas Panel: No Data to Display Thyroid Panel: No Data to Display Infectious Disease: No Data to Display Blood Cultures: No Data to Display Toxicology Panel: No Data to Display Imaging and Studies Imaging and Studies Study information below may be from another EMR and interpreted by another provider. Please see original notes in EMR for more complete details. EKG Summary: 06/01/2022: Conclusion Sinus rhythm...normal P axis, V-rate 60- 99 Low voltage, precordial leads...precordial leads <1.0mV. Sinus. Normal axis. No STEMI. I have reviewed and interpreted ECG and agree with software generated interpretation. Echocardiogram Summary: 06/09/2020: Conclusion This is a technically limited study Left Ventricle : The left ventricle is normal size. The left ventricular systolic function is normal. The left ventricular ejection fraction is within the normal range. There is normal left ventricular wall thickness. There is normal LV segmental wall motion. Transmitral Doppler flow pattern suggests impaired LV relaxation. LVEF is 55%. Right Ventricle : Right ventricle is not well visualized. Right ventricular systolic function could not be assessed. Atria : The left atrium size is normal. Right atrium is not well visualized. Valves: There are no hemodynamically significant valvular lesions. Great Vessels : The aortic root is normal in size. The ascending aorta is normal in size. IVC is normal in size and collapses >50% with inspiration. Anesthesia Assessment and Plan Anesthesia History Personal History: No History of Anesthesia Complications Family History: Family History Unknown Exercise Tolerance Exercise Tolerance: Metabolic Equivalents<4 Cardiac & Pulmonary Exam Cardiac Exam: Normal S1/S2 Heart Sounds Pulmonary Exam: Clear Bilateral Breath Sounds Implantable Cardiac Device Does patient have a Pacemaker or an ICD?: No Airway Exam Known Difficult Airway: No Mallampati Class: 4 Mouth Opening: Narrow (< 3cm) Thyromental Distance: Greater than 3 cm Neck Range of Motion: Limited ROM Neck Circumference: Thick Teeth Condition: Edentulous ASA Classification ASA Score: ASA 3 Emergency Case?: No NPO Status NPO Status: NPO Clears >2 hours, Solids >8 hours Anesthesia Plan Resuscitation Status: Full Code Anesthesia Technique: General Anesthesia Airway Planned: Natural Airway Monitors Used: Standard Monitors Preoperative Comments:: 64 yo female for cyto/injection for incont. Complaining of pain on arrival today - didn't take her tramadol this AM. Tramadol and acetaminophen written for. Sig PMHx: HTN, hx of endocarditis, RAD (albuterol, ipratropium), GERD (omeprazole, denies issues with reflux), chronic adrenal insufficiency, Hep c, DM (last A1c 7.5. 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 former IVDU. ECHO: LVEF 65%. evidence of endocarditis. EKG: sinus tach. Previous Anes: - cysto x 2, prop, natural airway, no issues - [facility], prop, LMA 4
[2025-02-12 10:27] VITALS: BP 81/59; PULSE 95; RESP 16; TEMP 35.9; O2SAT 96
[2025-02-12] MEDS: Lactated Ringers 1,000 ML 80 ML IV (11:01)
[2025-02-12 11:16] VITALS: BMI 29.9
--- NOTE | 2025-02-12 12:18 | HPE_ITS ---
Date of service: 02/12/25 Time of Service: 12:18 Assessment and Plan Assessment and plan (1) Incontinence: Status: Acute Assessment and plan: Her incontinence is likely related to her urethral erosion/intrinsic sphincter deficiency. We will attempt to close the bladder neck with bulking agent injections. If not successful, she would likely need to be referred to a tertiary care center for bladder neck sling. History of Present Illness History of Present Illness Chief Complaint: Urethral incompetence Narrative: This is a 64-year-old woman who has a history of a stroke. As a result, she has had a neurogenic bladder. She initially had a chronic indwelling urethral catheter. The catheter caused urethral erosion and urethral incompetence. She then had a suprapubic tube placed. She continues to have the leakage from her urethra. She presents for an injection of a bulking agent at the bladder neck in hopes of increasing the urethral outlet resistance. She understands that if we do not make much difference with her bulking agent injection, she would need to be referred to a tertiary care center for consideration of a bladder neck closure. She is asking if she can have a hysterectomy at the same time, so a referral to urogynecology might be most kennedy sonable Review of Systems Narrative: Bipolar disorder. No fevers or chills Tardive dyskinesia. No vision change No diabetes or thyroid dysfunction No shortness of breath, cough or hemoptysis No chest pain or palpitations No nausea, vomiting, hepatitis, ulcers, jaundice Hx stroke. No seizures, strokes or peripheral neuropathy No bleeding disorders No gout PFSH All Active Problems (Updated 02/12/25 @ 12:22 by Danny Alvarez MD) Incontinence (Acute) Nail dystrophy (Acute) Vulvar irritation (Acute) Decubitus ulcer (Acute) Sepsis (Acute) Pneumonia (Acute) Bacteremia (Acute) Diarrhea (Acute) Hypoalbuminemia (Acute) Hyperglycemia (Acute) High anion gap metabolic acidosis (Acute) Anemia (Chronic) Advanced care planning/counseling discussion (Acute) Gallstones (Acute) Tardive dyskinesia (Acute) Bipolar affective disorder, current episode depressed (Acute) rule out bipolar disorder reported by patient. Antiepileptics maybe preventing manic episode. Major depressive disorder, recurrent, severe with psychotic features (Acute) Current presentation is depression. She may have bipolar affective disorder. Ambulatory dysfunction (Chronic) Dysarthria as late effect of cerebrovascular accident (CVA) (Acute) Dysphagia as late effect of cerebrovascular accident (CVA) (Chronic) Hemiparesis affecting right side as late effect of cerebrovascular accident (Chronic) Medical History (Updated 02/12/25 @ 12:22 by Danny Alvarez MD) Diabetes mellitus type 2, insulin dependent Parkinsonism Bipolar 1 disorder Acute bronchitis Diarrhea Abdominal bloating Abdominal pain Pyelonephritis Microcytic anemia Emphysematous pyelonephritis Hydronephrosis of right kidney Pyuria due to bacterial urinary tract infection Arthritis of left shoulder region Left rotator cuff tear Cough Ileus History of stroke (R) Sided hemiparesis and (R) contracture of elbow Palliative care encounter Diverticulosis Nephrolithiasis Uterine mass likely a fibroid Cholelithiasis with acute cholecystitis s/p cholecystostomy and stone extraction in 2014 ([facility]), tube now pulled. 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 UTI (urinary tract infection) Chronic chest pain Constipation Staghorn calculus Autoimmune disorder Neck pain UTI (urinary tract infection) Aphasia as late effect of cerebrovascular accident Surgical History History of extraction of renal calculus 12/13/2018 - [facility] S/P cystoscopy with ureteral stent placement [facility] 11/2018 History of hip surgery right H/O wrist surgery H/O foot surgery History of lumbosacral spine surgery Abnormal cholangiogram H/O cervical spine surgery Status post creation of urethral sling by suprapubic approach Family History Mother Stroke Social History Smoking/Tobacco Use Status: Unknown Smoking risk assessment performed?: Yes Alcohol Intake: former Drug use: Current Sobriety Substance use type: former substance user and IV drugs Housing: jail Number of Children: 5 Education Level: elementary school Details: 6th grade, special ed, left school age 16. Current gender identity: female What is your relationship status?: Panel score (0-1 are the most socially isolated patients): 0 What type of physical activity do you participate in: none Do you feel safe at home: Yes Do you feel safe in your relationship?: Yes Additional Social history: [place] Meds Allergies and Home Medications Allergies Allergy/AdvReac Type Severity Reaction Status Date / Time naproxen (From Aleve) Allergy Unknown Itching Verified 02/12/25 10:33 Penicillins Allergy Unknown Itching Verified 02/12/25 10:33 propoxyphene Allergy Unknown Itching Verified 02/12/25 10:33 Sulfa (Sulfonamide Allergy Unknown Itching Verified 02/12/25 10:33 Antibiotics) methadone Allergy Nausea Verified 02/12/25 10:33 Home Medications ?Medication ?Instructions ?Recorded ?Confirmed ?Type mirtazapine 15 mg tablet 15 mg PO QHS 03/26/20 02/12/25 History lamotrigine 25 mg tablet (Lamictal) 50 mg (2 x 25 mg) PO DAILY #1 tab 04/08/20 02/12/25 Rx metformin 500 mg tablet 500 mg PO DAILY 12/20/20 02/12/25 History lactase 3,000 unit tablet (Lactaid) 9,000 unit PO TID 06/22/21 02/12/25 History acetaminophen 500 mg tablet 500 mg PO BID 06/01/22 02/12/25 History fluticasone propionate 50 1 spray intranasal BID 06/01/22 02/12/25 History mcg/actuation nasal spray,suspension (Flonase Allergy Relief) B-complex with vitamin C 1 cap PO DAILY 11/09/22 02/12/25 History carbidopa 25 mg-levodopa 100 mg 1 tab PO QID 11/09/22 02/12/25 History tablet levothyroxine 100 mcg tablet 100 mcg PO QHS 11/09/22 02/12/25 History atorvastatin 20 mg tablet 20 mg PO QPM #0 tabs 11/28/22 02/10/25 Rx lorazepam 0.5 mg tablet 0.5 mg PO BID 12/24/22 02/12/25 History gabapentin 600 mg tablet 600 mg PO BID 01/19/23 02/12/25 History quetiapine 100 mg tablet 100 mg PO TID 01/19/23 02/12/25 History simethicone 180 mg capsule 180 mg PO TID 01/19/23 02/12/25 History trazodone 50 mg tablet 50 mg PO BID 01/19/23 02/12/25 History omeprazole 20 mg capsule,delayed 40 mg PO DAILY 07/23/23 02/12/25 History release bupropion HCl 150 mg 24 hr tablet, 150 mg PO DAILY 12/11/23 02/12/25 History extended release (Wellbutrin XL) ferrous gluconate 324 mg (37.5 mg 324 mg PO DAILY 12/11/23 02/12/25 History iron) tablet magnesium gluconate 12.5 mg 500 mg PO BID 12/11/23 02/12/25 History magnesium (250 mg) tablet polyethylene glycol 3350 17 gram 17 g PO BID 12/11/23 02/12/25 History oral powder packet (Miralax) potassium chloride 10 mEq 10 meq PO DAILY 12/11/23 02/12/25 History tablet,extended release(part/cryst) (Klor-Con M) ropinirole 0.5 mg tablet 0.5 mg PO QHS 12/11/23 02/12/25 History tramadol 50 mg tablet 50 mg PO HS 12/11/23 02/12/25 History nitrofurantoin 50 mg PO DAILY 03/26/24 02/12/25 History monohydrate/macrocrystals 100 mg capsule (Macrobid) Lactobacillus acidophilus-pectin 1 cap PO BID 05/09/24 02/12/25 History capsule albuterol sulfate 90 mcg/actuation 1 puff inhalation BID 05/09/24 02/12/25 History aerosol inhaler (Ventolin HFA) cranberry extract 500 mg capsule 500 mg PO DAILY 05/09/24 02/12/25 History (Cranberry Concentrate) ipratropium 0.5 mg-albuterol 3 mg 3 ml inhalation BID 05/09/24 02/12/25 History (2.5 mg base)/3 mL nebulization soln lactulose 10 gram/15 mL oral 10 g PO DAILY 05/09/24 02/12/25 History solution benzocaine 20 %-menthol 0.1 %-zinc 1 applic mucous membrane QID PRN 05/12/24 02/12/25 History chloride 0.15 % mucosal gel PRN (Orajel 3X Mouth Sores) calcium carbonate (Tums) 200 mg PO Q4H PRN PRN 05/12/24 02/12/25 History cefpodoxime 200 mg tablet 200 mg PO BID #14 tabs 05/12/24 02/12/25 Rx docusate sodium 100 mg capsule 200 mg PO BID PRN 05/12/24 02/12/25 History lidocaine 5 % topical patch 1 patch topical Q24H 05/12/24 02/12/25 History tramadol 50 mg tablet 50 mg PO Q6H PRN 05/12/24 02/12/25 History mirabegron 50 mg tablet,extended 50 mg PO DAILY #90 tabs 01/16/25 02/12/25 Rx release 24 hr (Myrbetriq) methocarbamol BID 02/12/25 History Exam Const Nutritional Appearance: overweight Limitations: physical limitations Neck Neck: normal visual inspection Resp Effort & Inspection: normal respiratory effort Auscultation: clear to auscultation bilaterally Cardio Rate: regular rate Rhythm: regular rhythm GI Inspection: obesity Palpation: soft Neuro General: patient alert and patient awake Results Last Vital Signs Temp 35.9 C L 02/12/25 10:27 Pulse 95 H 02/12/25 10:27 Resp 16 02/12/25 10:27 BP 81/59 L 02/12/25 10:27 Pulse Ox 96 02/12/25 10:27 Time Spent Time spent with Patient: <40 minutes Time was spent: other
[2025-02-12] MEDS: ACETAMINOPHEN 1,000 MG/100 ML BAG 400 MG IVPB (12:38)
[2025-02-12] MEDS: traMADol 50 MG TAB PO (12:42)
[2025-02-12] MEDS: levoFLOXacin 500 MG TAB PO (13:01)
[2025-02-12] MEDS: Lidocaine 2% Jelly 6 ML SYR (13:37)
--- NOTE | 2025-02-12 13:52 | PDOC.DSDIS_ITS ---
Date of service: 02/12/25 Discharge Plan Disposition Patient Disposition: Other Disposition Not Listed Other Facility: [facility] Condition: Stable Discharge Details Reason For Visit: transurethral injection of bulking agent Attending Provider: Danny Alvarez Primary Care Provider: Agueda Bingham Home Meds and New Rx's Prescriptions: No Action metformin 500 mg tablet 500 mg PO DAILY mirabegron [Myrbetriq] 50 mg tablet extended release 24 hr 50 mg PO DAILY Qty: 90 4RF lactase [Lactaid] 3,000 unit tablet 9,000 unit PO TID Rx Instructions: administer with meals and/or snacks simethicone 180 mg capsule 180 mg PO TID gabapentin 600 mg tablet 600 mg PO BID quetiapine 100 mg tablet 100 mg PO TID trazodone 50 mg tablet 50 mg PO BID atorvastatin 20 mg Tablet 20 mg PO QPM Qty: 0 0RF nitrofurantoin monohyd/m-cryst [Macrobid] 100 mg capsule 50 mg PO DAILY methocarbamol 500 mg tablet BID mirtazapine 15 mg Tablet 15 mg PO QHS lamotrigine [Lamictal] 25 mg Tablet 50 mg PO DAILY Qty: 1 0RF acetaminophen 500 mg Tablet 500 mg PO BID fluticasone propionate [Flonase Allergy Relief] 50 mcg/actuation Mather,Suspension 1 spray INTRANASAL BID levothyroxine 100 mcg Tablet 100 mcg PO QHS Patient Comments: takes QHS carbidopa-levodopa 25-100 mg Tablet 1 tab PO QID B-complex with vitamin C Capsule 1 cap PO DAILY omeprazole 20 mg capsule,delayed release(DR/EC) 40 mg PO DAILY lorazepam 0.5 mg Tablet 0.5 mg PO BID polyethylene glycol 3350 [Miralax] 17 gram powder in packet 17 g PO BID potassium chloride [Klor-Con M10] 10 mEq tablet,ER particles/crystals 10 meq PO DAILY bupropion HCl [Wellbutrin XL] 150 mg tablet extended release 24 hr 150 mg PO DAILY magnesium gluconate 12.5 mg magne- sium (250 mg) tablet 500 mg PO BID ropinirole 0.5 mg tablet 0.5 mg PO QHS ferrous gluconate 324 mg (37.5 mg iron) tablet 324 mg PO DAILY tramadol 50 mg Tablet 50 mg PO HS lactulose 10 gram/15 mL solution 10 g PO DAILY ipratropium-albuterol 0.5 mg-3 mg(2.5 mg base)/3 mL solution for nebulization 3 ml inhalation BID Lactobacillus acidoph-pectin Capsule 1 cap PO BID cranberry extract [Cranberry Concentrate] 500 mg capsule 500 mg PO DAILY Rx Instructions: administer with a meal albuterol sulfate [Ventolin HFA] 90 mcg/actuation Hfa Aerosol Inhaler 1 puff INHALATION BID calcium carbonate [Tums] 200 mg calcium (500 mg) tablet,chewable 200 mg PO Q4H PRN PRN docusate sodium 100 mg capsule 200 mg PO BID PRN tramadol 50 mg tablet 50 mg PO Q6H PRN Orajel 3X Mouth Sores 20-0.1-0.15 % gel 1 applic mucous membrane QID PRN PRN lidocaine 5 % adhesive patch,medicated 1 patch topical Q24H cefpodoxime 200 mg tablet 200 mg PO BID Qty: 14 0RF Rx Instructions: must administer with a meal/food Discharge Instructions Additional Instructions: It would not be surprising to have blood from the urethra/vaginal area for the next few days following this procedure The staff members at the [facility] should give us a call in about a week and let us know if the amount of leakage has improved at all. If there is been no improvement whatsoever, we would recommend a referral to a urogynecology s pecialist either at [facility] or at the [facility]. The patient has expressed an interest in having a hysterectomy, so her urogynecologist would be able to address her hysterectomy concerns of both as well as close her bladder neck with a sling procedure. No new medications are needed. Activity:: Activity as Tolerated Shower/Bathe:: 24 hours Diet:: As Tolerated Discharge Orders Discharge Orders: Discharge Order (Routine); Ordered 02/12/25 Ordered By: Danny Alvarez DS: Diagnosis Discharge Diagnosis (1) Incontinence: Status: Acute
[2025-02-12 13:53] VITALS: BP 92/65; PULSE 87; RESP 18; TEMP 35.9; O2SAT 98
--- NOTE | 2025-02-12 13:56 | ROE_ITS ---
Operative Note Operative Note PRE-OP DIAGNOSIS: Urethral erosion/incompetence POST-OP DIAGNOSIS: same PROCEDURE: cystoscopy, transurethral injection of Macroplastique into bladder neck SURGEON: Danny Alvarez ANESTHESIA TYPE: Local By Surgeon and General:No Airway Refer to Anesthesia Record ESTIMATED BLOOD LOSS: 5 PATHOLOGY: none sent COMPLICATIONS: None Implants: 2 vials Macroplastique Indications: This is a 64-year-old woman who has a history of a neurogenic bladder related to a stroke. 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 She then had a suprapubic tube placed. In spite of a functioning suprapubic tube, she continues to have leakage from her urethra. She presents for an injection of bulking agents at the bladder neck in an attempt to increase her urethral resistance Findings: Wide open bladder neck with urethral erosion posteriorly Procedure Description: The patient was given an oral antibiotic and brought to the operating room on 02/12/2025. She was given general anesthesia without intubation and placed in the dorsal lithotomy position. Her suprapubic tube was clamped. Her genitalia was prepped and draped. 2% Xylocaine jelly was instilled into the urethra. A 20 [place] urethrotome sheath was passed through the urethra into the bladder. Inspecting the bladder neck, we found some erosion posteriorly. Using a transurethral injection system, we passed the needle submucosally and injected a total of 2 vials of Macroplastique at the bladder neck. There did appear to be some coaptation of the mucosa but not complete coaptation. The urethrotome sheath was removed. The suprapubic tube was unclamped and the bladder was drained. The patient tolerated this procedure well with no complications. She was taken back to the day surgery unit in stable condition. Date of Procedure: 02/12/25
--- NOTE | 2025-02-12 14:14 | W.ANESPOSTOP ---
Postoperative Evaluation Date, Time and Location Date Performed: 02/12/25 Time Performed: 14:14 Patient Location: Day Surgery Unit Vital Signs Most Recent Imported Vital Signs: Most Recent Vital Signs Temp Pulse Resp BP Pulse Ox 35.9 C L 87 18 92/65 L 98 02/12/25 13:53 02/12/25 13:53 02/12/25 13:53 02/12/25 13:53 02/12/25 13:53 Pain Score Most Recent Pain Score: Most Recent Pain Score Pain Level 0 02/12/25 13:53 Assessment Mental Status: Awake (Alert & Oriented to Patient Baseline) Airway and Respiratory Function: Patent airway with normal (patient baseline) respiratory exam Cardiovascular Function: Hemodynamically Stable Hydration Status: Adequately Hydrated Nausea & Vomiting: No Nausea or Vomiting Pain: Pain is tolerable per patient Peripheral Nerve Block: Patient did not receive a nerve block
[2025-02-12 14:25] VITALS: BP 108/62; PULSE 90; RESP 16; TEMP 36.2; O2SAT 99
== END 2025-02-12 14:41 | disposition other institution (70) ==
PROVIDERS: PCP Family Medicine; Visit Provider Urology
PROC: (CPT 51715; principal; 2025-02-12 11:45)
DX: N31.8 Other neuromuscular dysfunction of bladder (principal); N36.8 Other specified disorders of urethra; Z93.51 Cutaneous-vesicostomy status; I69.351 Hemiplegia and hemiparesis following cerebral infarction affecting right dominant side; I69.391 Dysphagia following cerebral infarction; I69.322 Dysarthria following cerebral infarction; E11.9 Type 2 diabetes mellitus without complications; Z79.4 Long term (current) use of insulin; Z79.84 Long term (current) use of oral hypoglycemic drugs; D50.9 Iron deficiency anemia, unspecified
CPT/HCPCS: 51715; J0131; J2405; J2704; J3010; L8606

== ENCOUNTER 2025-04-03 00:32 | Outpatient (CLI) | payer MEDICAID, SELFPAY ==
--- NOTE | 2025-04-03 11:49 | DI.RAD_ITS ---
Exam(s) XR FOOT RT COMPLETE EXAM: XR FOOT RT COMPLETE CLINICAL HISTORY: Increased pain s/p hardware; AP/lateral and oblique views. TECHNIQUE: 2D digital imaging was performed. COMPARISON: No exams were available for comparison FINDINGS: Five views Again noted is generalized osteopenia. There is fusion hardware across the 1st and 2nd tarsometatarsal joints again noted. No obvious acute there is there are no evidence of obvious osteomyelitis. Healed oblique fracture site at the mid aspect of the 4th metatarsal is again noted. No new obvious fractures evident. Partial screw again noted at the sinus tarsi level. Vascular calcification noted in the posterior tibial and plantar arteries as well as in the dorsalis pedis vessel. There is no obvious hardware loosening and no hardware fracture nor evidence of osteomyelitis. IMPRESSION: Stable appearance DATA REPOSITORY: RADIATION DOSE DELIVERED:
== END 2025-04-03 00:52 ==
LOC: DI 00:32
PROVIDERS: PCP Family Medicine; Visit Provider Nurse Practitioner Gerontology
DX: M85.89 Other specified disorders of bone density and structure, multiple sites (principal)
CPT/HCPCS: 73630

== ENCOUNTER 2025-05-18 20:46 | Outpatient (REF) | payer MEDICARE, MEDICAID, SELFPAY ==
[2025-05-18 19:11] LABS: Abs Immature Grans 0.02 10^3/uL (0.0-0.06); HCT 28.8 % (36.0-46.0); HGB 8.8 g/dL (11.2-15.7); Immature Grans % 0.5 %; MCH 29.9 pg (27.0-33.0); MCHC 30.6 % (32.0-36.0); MCV 98 fL (80-95); MPV 9.9 fL (8.0-11.0); Platelet Count 194 10^3/uL (130-400); RBC 2.94 10^6/uL (3.93-5.22); RDW 16.9 % (11.7-14.6); RDW-SD 60.6 fL; WBC 4.00 10^3/uL (4.4-10.8)
[2025-05-18 19:37] LABS: ALT 9 U/L (14-59); AST 60 U/L (15-37); Albumin 1.8 g/dL (3.4-5.0); Alkaline Phosphatase 145 U/L (46-116); Anion Gap 10.6 mmol/L (3-11); BUN 5 mg/dL (7-18); Bilirubin, Total 0.4 mg/dL (0.2-1.0); CO2 25.4 mmol/L (21.0-32.0); Calcium 8.4 mg/dL (8.5-10.1); Chloride 109 mmol/L (98-107); Estimated GFR 104.02 (mL/min/1.73m2); Glucose 74 mg/dL (74-106); Magnesium 1.5 mg/dL (1.8-2.4); Potassium 3.6 mmol/L (3.5-5.1); Sodium 145 mmol/L (136-145); TSH (W/Ref FT4) 0.48 uIU/mL (0.36-3.74); Total Protein 5.9 g/dL (6.4-8.2)
[2025-05-18 19:39] LABS: Hemoglobin A1C 5.3 % (<5.7)
== END 2025-05-18 20:47 | disposition home or self-care (01) ==
LOC: LBN 20:46
PROVIDERS: PCP Family Medicine; Visit Provider Nurse Practitioner Gerontology
DX: E11.9 Type 2 diabetes mellitus without complications (principal); D63.1 Anemia in chronic kidney disease; E03.9 Hypothyroidism, unspecified; E83.42 Hypomagnesemia; E87.8 Other disorders of electrolyte and fluid balance, not elsewhere classified
CPT/HCPCS: 80053; 83036; 83735; 84443; 85025

== ENCOUNTER 2025-05-31 12:23 | Inpatient (IN) | payer MEDICARE, MEDICAID, SELFPAY ==
[2025-05-31] VITALS (159 sets, daily range): BP systolic 45–142; BP diastolic 27–80; PULSE 90–138; RESP 9–26; TEMP 35.9–36.2; O2SAT 68–100
--- NOTE | 2025-05-31 12:18 | W.ED.GENAD ---
Discharge Plan Disposition Patient Disposition: Admit to [facility] Discharge Details Clinical Impression: Septic shock, Macrocytic anemia Primary Care Provider: Agueda Bingham ED Provider: Abhishek Montoya [place] Meds and New Rx's Prescriptions: No Action metformin 500 mg tablet 500 mg PO DAILY mirabegron [Myrbetriq] 50 mg tablet extended release 24 hr 50 mg PO DAILY Qty: 90 4RF lactase [Lactaid] 3,000 unit tablet 9,000 unit PO TID Rx Instructions: administer with meals and/or snacks simethicone 180 mg capsule 180 mg PO TID gabapentin 600 mg tablet 600 mg PO BID quetiapine 100 mg tablet 100 mg PO TID trazodone 50 mg tablet 50 mg PO BID atorvastatin 20 mg Tablet 20 mg PO QPM Qty: 0 0RF nitrofurantoin monohyd/m-cryst [Macrobid] 100 mg capsule 50 mg PO DAILY methocarbamol 500 mg tablet BID duloxetine 30 mg capsule,delayed release(DR/EC) 30 mg PO DAILY mirtazapine 15 mg Tablet 15 mg PO QHS lamotrigine [Lamictal] 25 mg Tablet 50 mg PO DAILY Qty: 1 0RF acetaminophen 500 mg Tablet 500 mg PO BID fluticasone propionate [Flonase Allergy Relief] 50 mcg/actuation [place],Suspension 1 spray INTRANASAL BID levothyroxine 100 mcg Tablet 100 mcg PO QHS Patient Comments: takes QHS carbidopa-levodopa 25-100 mg Tablet 1 tab PO QID B-complex with vitamin C Capsule 1 cap PO DAILY omeprazole 20 mg capsule,delayed release(DR/EC) 40 mg PO DAILY lorazepam 0.5 mg Tablet 0.5 mg PO BID polyethylene glycol 3350 [Miralax] 17 gram powder in packet 17 g PO BID potassium chloride [Klor-Con M10] 10 mEq tablet,ER particles/crystals 10 meq PO DAILY bupropion HCl [Wellbutrin XL] 150 mg tablet extended release 24 hr 150 mg PO DAILY magnesium gluconate 12.5 mg magne- sium (250 mg) tablet 500 mg PO BID ropinirole 0.5 mg tablet 0.5 mg PO QHS ferrous gluconate 324 mg (37.5 mg iron) tablet 324 mg PO DAILY tramadol 50 mg Tablet 50 mg PO HS lactulose 10 gram/15 mL solution 10 g PO DAILY ipratropium-albuterol 0.5 mg-3 mg(2.5 mg base)/3 mL solution for nebulization 3 ml inhalation BID Lactobacillus acidoph-pectin Capsule 1 cap PO BID cranberry extract [Cranberry Concentrate] 500 mg capsule 500 mg PO DAILY Rx Instructions: administer with a meal albuterol sulfate [Ventolin HFA] 90 mcg/actuation Hfa Aerosol Inhaler 1 puff INHALATION BID calcium carbonate [Tums] 200 mg calcium (500 mg) tablet,chewable 200 mg PO Q4H PRN PRN docusate sodium 100 mg capsule 200 mg PO BID PRN tramadol 50 mg tablet 50 mg PO Q6H PRN Orajel 3X Mouth Sores 20-0.1-0.15 % gel 1 applic mucous membrane QID PRN PRN lidocaine 5 % adhesive patch,medicated 1 patch topical Q24H cefpodoxime 200 mg tablet 200 mg PO BID Qty: 14 0RF Rx Instructions: must administer with a meal/food HPI General Date/Time Provider Initiated Documentation: 05/31/25 12:26. HPI Narrative: MDM This is a hypotensive full code 65-year-old female with prior CVA and prior sepsis arriving via EMS with acute encephalopathy for which patient received emergent airway management, please see separate procedure note below. Prior to intubation norepinephrine drip was initiated and patient had blood pressures into the 140s systolically. ET tube was initially too deep and was retracted. Given concern for aspiration pneumonia I treated patient with piperacillin/tazobactam and vancomycin. Will swab for COVID influenza and RSV. Patient did have abdominal tenderness prior to intubation so we will obtain CT chest abdomen pelvis without IV contrast. Patient has suprapubic catheter in place will obtain urinalysis which is most likely to be contaminated. Will assess lactate blood cultures. No pain or proportion to suggest necrotizing soft tissue infection. Differential includes intracranial hemorrhage so we will obtain CT head. Will obtain rectal temperature the patient has had no obvious nuchal rigidity nor petechial rash to suggest meningitis so do not feel she requires a lumbar puncture. Patient was rolled. She was normothermic. She did not receive acetaminophen. She is not on steroids chronically to suggest benefit from stress dose steroids. I will obtain a TSH. She had an echocardiogram performed February of years ago showing normal EF. 1:45 PM CBC showing macrocytic anemia with new leukocytosis. No thrombocytopenia. Marked lactic acidosis. Venous blood gas showing acidemia but no hypercarbia. Given septic shock will complete reassessment at 3 hours and order a lactate at 3-hour [place]. Will provide 2 L IV fluids. 1:56 PM Urinalysis showing large blood nitrite negative. Glucosuria. Ketonuria. Large leuk esterase. 2:52 PM I added a second pressor on this patient using vasopressin 0.04 units/min. She is maxed out on norepinephrine. Troponin within normal limits.Reassuring TSH. Comprehensive metabolic panel showing marked DALTON creatinine 2.9 from prior of 0.5. Mild hyperglycemia but no anion gap normal bicarbonate. Not consistent with DKA. Mildly elevated alkaline phosphatase improved compared to prior. Marked hypoalbuminemia. Mild hypermagnesemia. 3:53 PM Concern related patient's lactic acidosis is worsened. She is receiving her fourth liter of IV fluids. She had good cardiac function on bedside echocardiogram. Will attempt again to get in touch with her contact listed on her paperwork. Patient has minimal urine output. Will recheck her renal function to see if it is improving and reassess her electrolytes and repeat lactate. I completed a sepsis reevaluation. On reassessment patient was persistently tachycardic. She had intact cap refill. She had had minimal urine output. 4PM I spoke to patient's father, Luis Armando Moe, from [facility]. He is 90 year-old. She had not called him in several weeks. Patient did not discuss whether or not she would want aggressive care. Repeat lactate returned and had worsened. Sandra Keita is her sister: [phone]. 4:30 PM Patient's lactic acidosis worsened. I called the patient's father again. He reported that she would not want transfer. Given that she had been DNI DNR in the past I did not feel that this request was unreasonable. Also given her worsening lactic acidosis he felt that she would not want to be transferred to a tertiary care hospital. I spoke with the patient's sister. She said that she had not spoken with her recently. She said that when she had she spoke in 1-2 word sentences. She will be no escalation of care per her father. Given multiple prior DNI DNR as listed in our chart I feel that this current CODE STATUS is appropriate. Will pursue aggressive care short of CPR and transfer overnight. Will hospitalize her locally and continue to resuscitate her but will defer CPR if she goes into cardiopulmonary arrest. Sinus tachycardia rate of 128. Left axis deviation. Interventricular conduction delay. No acute injury pattern. Widened QRS. Compared to prior dated last year QRS is widened. Low voltage in left chest leads persistent. ST segment elevation in aVL. Mild left chest ST segment depressions. Patient's troponin climbed. It went from 26-76. Given her tachycardia and septic shock this is more likely secondary to demand. I did not feel that this is a primary cardiac event. Also given the patient's significant comorbidities I did not feel that she would require transfer for left heart catheterization. I feel that the risks of heparinization outweigh the benefits. Will administer rectal aspirin in the setting of myocardial injury. 4:40 PM Patient will receive fifth liter IV fluids her DALTON improved slightly. She had worsening anion gap acidosis and decreased bicarbonate. I spoke with Dr. Scott from the hospitalist team. He graciously accepted the patient for hospitalization. HPI The patient presents for evaluation of lethargy. She comes from the [facility]. History obtained from paramedics. Patient unresponsive. She was unable to wake up today. A nasal airway was inserted, and she opened her eyes once. Heart rate is in the 90s. Last blood pressure was 101 systolic. All the readings at the [facility] were in the 80s systolic. She is at 94% on 4 L. Blood sugar was 180. Exam General: Elderly-appearing with minimal responsiveness on arrival. Head: Normocephalic, atraumatic. Eye:No conjunctival injection. No scleral icterus. Ear, nose, mouth, throat: Edentulous. Handling secretions. Dry mucous membranes. Neck: Trachea midline. No nuchal rigidity Cardiovascular: Well-perfused distal extremities. Regular rate and rhythm Respiratory: Nonlabored respiration. Coarse bilateral breath sounds. Gastrointestinal: Nondistended abdomen. Soft. Minimal tenderness. No rebound. No guarding. Suprapubic catheter in place. Musculoskeletal: Right upper extremity contracture. No significant lower extremity edema. Skin: Stage I sacral decubitus ulcer. On the right foot, lateral distal aspect there is a small approximately 1 x 1 cm ulcer. Neurologic: GCS 8: E2, V2, M4. Related Data Home Medications ?Medication ?Instructions ?Recorded ?Confirmed mirtazapine 15 mg tablet 15 mg PO QHS 03/26/20 02/12/25 lamotrigine 25 mg tablet (Lamictal) 50 mg (2 x 25 mg) PO DAILY #1 tab 04/08/20 02/12/25 metformin 500 mg tablet 500 mg PO DAILY 12/20/20 05/31/25 lactase 3,000 unit tablet (Lactaid) 9,000 unit PO TID 06/22/21 02/12/25 acetaminophen 500 mg tablet 500 mg PO BID 06/01/22 05/31/25 fluticasone propionate 50 1 spray intranasal BID 06/01/22 05/31/25 mcg/actuation nasal spray,suspension (Flonase Allergy Relief) B-complex with vitamin C 1 cap PO DAILY 11/09/22 02/12/25 carbidopa 25 mg-levodopa 100 mg 1 tab PO QID 11/09/22 02/12/25 tablet levothyroxine 100 mcg tablet 100 mcg PO QHS 11/09/22 05/31/25 atorvastatin 20 mg tablet 20 mg PO QPM #0 tabs 11/28/22 02/10/25 lorazepam 0.5 mg tablet 0.5 mg PO BID 12/24/22 05/31/25 gabapentin 600 mg tablet 600 mg PO BID 01/19/23 05/31/25 quetiapine 100 mg tablet 100 mg PO TID 01/19/23 02/12/25 simethicone 180 mg capsule 180 mg PO TID 01/19/23 05/31/25 trazodone 50 mg tablet 50 mg PO BID 01/19/23 05/31/25 omeprazole 20 mg capsule,delayed 40 mg PO DAILY 07/23/23 02/12/25 release bupropion HCl 150 mg 24 hr tablet, 150 mg PO DAILY 12/11/23 02/12/25 extended release (Wellbutrin XL) ferrous gluconate 324 mg (37.5 mg 324 mg PO DAILY 12/11/23 05/31/25 iron) tablet magnesium gluconate 12.5 mg 500 mg PO BID 12/11/23 05/31/25 magnesium (250 mg) tablet polyethylene glycol 3350 17 gram 17 g PO BID 12/11/23 02/12/25 oral powder packet (Miralax) potassium chloride 10 mEq 10 meq PO DAILY 12/11/23 02/12/25 tablet,extended release(part/cryst) (Klor-Con M) ropinirole 0.5 mg tablet 0.5 mg PO QHS 12/11/23 05/31/25 tramadol 50 mg tablet 50 mg PO HS 12/11/23 05/31/25 nitrofurantoin 50 mg PO DAILY 03/26/24 02/12/25 monohydrate/macrocrystals 100 mg capsule (Macrobid) Lactobacillus acidophilus-pectin 1 cap PO BID 05/09/24 02/12/25 capsule albuterol sulfate 90 mcg/actuation 1 puff inhalation BID 05/09/24 02/12/25 aerosol inhaler (Ventolin HFA) cranberry extract 500 mg capsule 500 mg PO DAILY 05/09/24 02/12/25 (Cranberry Concentrate) ipratropium 0.5 mg-albuterol 3 mg 3 ml inhalation BID 05/09/24 05/31/25 (2.5 mg base)/3 mL nebulization soln lactulose 10 gram/15 mL oral 10 g PO DAILY 05/09/24 02/12/25 solution benzocaine 20 %-menthol 0.1 %-zinc 1 applic mucous membrane QID PRN 05/12/24 02/12/25 chloride 0.15 % mucosal gel PRN (Orajel 3X Mouth Sores) calcium carbonate (Tums) 200 mg PO Q4H PRN PRN 05/12/24 02/12/25 cefpodoxime 200 mg tablet 200 mg PO BID #14 tabs 05/12/24 02/12/25 docusate sodium 100 mg capsule 200 mg PO BID PRN 05/12/24 02/12/25 lidocaine 5 % topical patch 1 patch topical Q24H 05/12/24 02/12/25 tramadol 50 mg tablet 50 mg PO Q6H PRN 05/12/24 02/12/25 mirabegron 50 mg tablet,extended 50 mg PO DAILY #90 tabs 01/16/25 02/12/25 release 24 hr (Myrbetriq) methocarbamol BID 02/12/25 duloxetine 30 mg capsule,delayed 30 mg PO DAILY 05/31/25 05/31/25 release Previous Rx's ?Medication ?Instructions ?Recorded lamotrigine 25 mg tablet (Lamictal) 50 mg (2 x 25 mg) PO DAILY #1 tab 04/08/20 atorvastatin 20 mg tablet 20 mg PO QPM #0 tabs 11/28/22 cefpodoxime 200 mg tablet 200 mg PO BID #14 tabs 05/12/24 mirabegron 50 mg tablet,extended 50 mg PO DAILY #90 tabs 01/16/25 release 24 hr (Myrbetriq) Allergies Allergy/AdvReac Type Severity Reaction Status Date / Time naproxen (From Aleve) Allergy Unknown Itching Verified 05/31/25 13:11 Penicillins Allergy Unknown Itching Verified 05/31/25 13:11 propoxyphene Allergy Unknown Itching Verified 05/31/25 13:11 Sulfa (Sulfonamide Allergy Unknown Itching Verified 05/31/25 13:11 Antibiotics) methadone Allergy Nausea Verified 05/31/25 13:11 General RUBENS: 2 Procedure Airway Management Date of Procedure: 05/31/25 Time of Procedure: 12:58 Patient Consented: Emergent Case Indication: Reduced level of consciousness Provider that performed the procedure: Abhishek Montoya Mallampati Class: Unable to Assess Induction setup: Apneic Oxygenation, NRB - High Flow, Ear to Sternal Notch and Rapid Sequence Induction Airway Type: Intubation Laryngoscopy: Atraumatic Laryngoscopy and Edentulous. Grade: Airway Blades: Glidescope 3. Endotracheal Tube: Oral, Cuffed and 7.5mm. Secured at(cm): 24. Placement Confirmation: Cuff inflated with minimally occlusive pressure, Secured with commercial device, Bilateral breath sounds and ETCO2 colormetric present Comment: She was initially slightly deep. Was pulled back by RT. Paralytic(indicate dose given): Rocuronium (70 mg) Vasoactive Medication(indicate dose given): Norepinephrine (Norepinephrine drip initiated) Post Induction Medication Management(indicate dose given): Ketamine IV (2 mg/kg) Gastric Tube: Placed by Other Person Procedure Complications: Vomit in Airway (Significant emesis) Procedure Outcome: Successful Procedure Description Note: Successful first-pass intubation with 7-5 tube. Arterial Line Date of Procedure: 05/31/25 Time of Procedure: 15:51 Provider that performed the procedure: Abhishek Montoya Indication: Hypotension Patient Consented: Emergent Case Standard Time Out Performed: Yes Sterility: Sterile Laterality: Left Insertion Site: Radial Arterial Line Catheter: 20G Arrow Arterial Line Procedure: Vessel accessed with needle, Vessel accessed with catheter over needle, Guidewire placed with ease, Catheter placed without resistance and Guidewire removed Ultrasound: Used/Image Saved Number of Attempts( see previous attempts in note section): 2 Dressing: Tegaderm Applied, BioPatch Applied and Sutured in Place Procedure Tolerated: Patient tolerated well Procedure Outcome: Successful Central Line Placement Date of Procedure: 05/31/25 Time of Procedure: 14:57 Provider that performed the procedure: Abhishek Montoya Indication: Central venous access Patient Consented: Emergent Case Standard Time Out Performed: Yes Sterility: Sterile Local Anesthetic: Lidocaine 1% Amount of anesthetic used(mL): 3 Laterality: Right Insertion Site: Internal Jugular (IJ) Central Line Type: 7 [place] and Triple Lumen Catheter Insertion Procedure: 1% Lidocaine to skin and subcutaneous tissue with 25g needle, Vessel accessed with needle, Guidewire placed with ease, Dermatotomy (skin penny) made with scalpel, Dilator placed without resistance, Introducer/Catheter placed without resistance, Guidewire removed and Claves placed, blood withdrawn, ports flushed and clamped Ultrasound: Used/Image Saved Number of Attempts(see previous attempts in note section): 1 Post Procedure: good blood return, all ports aspirated, flushed, capped and sutured in place with nylon Dressing: Tegaderm applied and BioPatch applied Procedure Tolerated: No Complications and Patient tolerated well Procedure Outcome: Successful Critical Care Time Critical Care Time Critical Care Time: Yes Total Critical Care Time: 60 Attestation: Hypotension acute encephalopathy [facility] All Active Problems (Updated 05/31/25 @ 14:56 by Abhishek Montoya MD) Macrocytic anemia (Acute) Septic shock (Acute) Incontinence (Acute) Nail dystrophy (Acute) Vulvar irritation (Acute) Decubitus ulcer (Acute) Sepsis (Acute) Pneumonia (Acute) Bacteremia (Acute) Diarrhea (Acute) Hypoalbuminemia (Acute) Hyperglycemia (Acute) High anion gap metabolic acidosis (Acute) Anemia (Chronic) Advanced care planning/counseling discussion (Acute) Gallstones (Acute) Tardive dyskinesia (Acute) Bipolar affective disorder, current episode depressed (Acute) rule out bipolar disorder reported by patient. Antiepileptics maybe preventing manic episode. Major depressive disorder, recurrent, severe with psychotic features (Acute) Current presentation is depression. She may have bipolar affective disorder. Ambulatory dysfunction (Chronic) Dysarthria as late effect of cerebrovascular accident (CVA) (Acute) Dysphagia as late effect of cerebrovascular accident (CVA) (Chronic) Hemiparesis affecting right side as late effect of cerebrovascular accident (Chronic) Medical History (Updated 05/31/25 @ 14:56 by Abhishek Montoya MD) Diabetes mellitus type 2, insulin dependent Parkinsonism Bipolar 1 disorder Acute bronchitis Diarrhea Abdominal bloating Abdominal pain Pyelonephritis Microcytic anemia Emphysematous pyelonephritis Hydronephrosis of right kidney Pyuria due to bacterial urinary tract infection Arthritis of left shoulder region Left rotator cuff tear Cough Ileus History of stroke (R) Sided hemiparesis and (R) contracture of elbow Palliative care encounter Diverticulosis Nephrolithiasis Uterine mass likely a fibroid Cholelithiasis with acute cholecystitis s/p cholecystostomy and stone extraction in 2014 ([facility]), tube now pulled. 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 UTI (urinary tract infection) Chronic chest pain Constipation Staghorn calculus Autoimmune disorder Neck pain UTI (urinary tract infection) Aphasia as late effect of cerebrovascular accident Surgical History History of extraction of renal calculus 12/13/2018 - [facility] S/P cystoscopy with ureteral stent placement [facility] 11/2018 History of hip surgery right H/O wrist surgery H/O foot surgery History of lumbosacral spine surgery Abnormal cholangiogram H/O cervical spine surgery Status post creation of urethral sling by suprapubic approach Family History Mother Stroke Social History Smoking/Tobacco Use Status: Unknown Smoking risk assessment performed?: Yes Alcohol Intake: former Drug use: Current Sobriety Substance use type: former substance user and IV drugs Housing: correction Number of Children: 5 Education Level: elementary school Details: 6th grade, special ed, left school age 16. Current gender identity: female What is your relationship status?: Panel score (0-1 are the most socially isolated patients): 0 What type of physical activity do you participate in: none Do you feel safe at home: Yes Do you feel safe in your relationship?: Yes Additional Social history: [facility] POCUS Exam (ED) Limited Cardiac Exam DATE OF EXAM: 05/31/25 TIME OF EXAM: 15:54 PROVIDER THAT PERFORMED THE STUDY: Abhishek Montoya IS THIS A REPEAT EXAM DURING THIS ENCOUNTER: no REASON FOR EXAM: Septic Shock VISUALIZED STRUCTURES: Four Chambers, Left ventricle and LVOT VIEW OBTAINED: Apical 4-Chamber, Parasternal long-axis and Subxiphoid PERTINENT FINDINGS/IMPRESSION: No pericardial effusion and No RV dilation DIFFERENTIAL DIAGNOSES: Aortic outflow track less than 4 cm, good squeeze, RV less than LV, no significant pericardial effusion. Left-sided B-lines. Exam complete
[2025-05-31] MEDS: Normal Saline 1,000 ML 1000 ML IV ×5 (12:40→16:40)
[2025-05-31] MEDS: Norepinephrine in D5W 8 MG/250 ML BAG 9.375 MG IV (12:40)
--- NOTE | 2025-05-31 12:45 | DI.RAD_ITS ---
Exam(s) XR PORTABLE CHEST AP EXAM: XR PORTABLE CHEST AP CLINICAL HISTORY: S/P intubation TECHNIQUE: 2D digital imaging was performed. AP supine view, portable. COMPARISON: CR XR CHEST 2V PA LATERAL from 05/12/2024 FINDINGS: There is a an endotracheal tube which is positioned within the right main bronchus and should be pulled back at least 7 cm. LUNGS: The lungs are expiratory. The right lung is grossly clear. There is complete opacification of the left hemithorax. There is mediastinal shift toward the left. There is calcification of the trachea and bronchi. HEART: The heart is obscured by whiteout of the left chest and mediastinal shift. AORTA: Obscured. BONES: Degenerative changes in the shoulder and spine. Fusion hardware in the lower cervical spine. Soft tissues: Unremarkable. IMPRESSION: Complete opacification of the left hemithorax. Mediastinal shift toward the left. Endotracheal tube tip is in the right main bronchus and should be retracted 7-8 cm. The preliminary [facility] report was reviewed. DATA REPOSITORY: RADIATION DOSE DELIVERED:
[2025-05-31] MEDS: Ketamine 500 MG/5 ML VIAL (12:49)
[2025-05-31] MEDS: Rocuronium 50 MG/5 ML SYR (12:50)
[2025-05-31] MEDS: PROPOFOL 1,000 MG/100 ML BTL 14.4 MG IV_INF (12:55)
--- NOTE | 2025-05-31 13:00 | DI.RAD_ITS ---
Exam(s) XR PORTABLE CHEST AP POST LINE EXAM: XR PORTABLE CHEST AP POST LINE CLINICAL HISTORY: Post ET tube adjustment TECHNIQUE: 2D digital imaging was performed. COMPARISON: CR,XR XR PORTABLE CHEST AP POST LINE from 05/31/2025 FINDINGS: Exam is limited by the patient's hand overlying the right lung base. LUNGS: The endotracheal tube has been pulled back but lies at the level of the jose. The right lung appears clear. There are increased densities at the left lung base, not significantly changed. HEART: Mildly enlarged. AORTA: Partially obscured. BONES: Unremarkable for age. Soft tissues: The the nasogastric tube is positioned in the expected location of the stomach. IMPRESSION: The endotracheal tube is now positioned at the level of the jose. Nasogastric tube is positioned within the fundus of the stomach. The preliminary [facility] report was reviewed. DATA REPOSITORY: RADIATION DOSE DELIVERED:
--- NOTE | 2025-05-31 13:00 | DI.RAD_ITS ---
Exam(s) XR PORTABLE CHEST AP POST LINE EXAM: XR PORTABLE CHEST AP POST LINE CLINICAL HISTORY: s/p ET tube adjustment TECHNIQUE: 2D digital imaging was performed. Single portable supine view COMPARISON: CR,XR XR PORTABLE CHEST AP from 05/31/2025 FINDINGS: The endotracheal tube has been retracted but remains in the right main bronchus and should be pulled back further. Nasogastric tube has been inserted which projects below the diaphragm, in the expected location of the stomach. LUNGS: There is been significantly in fluid proved aeration of the left lung and mediastinal shift is no longer present. Lungs are expiratory. There are increased densities at the left lung base. The right lung appears clear. HEART: Normal size. AORTA: Normal diameter. BONES: Unremarkable for age. Soft tissues: Unremarkable. IMPRESSION: Significantly improved aeration of the left lung with persistent left lower lobe densities. Mediastinal shift no longer present Endotracheal tube is positioned in the right main bronchus and should be retracted. Satisfactory placement of nasogastric tube. The preliminary [facility] report was reviewed. DATA REPOSITORY: RADIATION DOSE DELIVERED:
--- NOTE | 2025-05-31 13:00 | RT.EKG_ITS ---
APPROVED REPORT Exam: Resting ECG Reason for Exam: Tachycardia Patient Location: E HR:128 bpm ECG Measurements Heart Rate 128 AXIS NV 107 P 52 QRSd 138 QRS -16 QT 351 T 141 QTc 513 Conclusion Sinus tachycardia...rate> 99 IVCD, consider LBBB...QRSd>120, notch/slur R I aVL V5-6 No Occlusion IN
--- NOTE | 2025-05-31 13:15 | DI.CT_ITS ---
Exam(s) CT CHEST/ABD/PEL WO EXAM: CT CHEST/ABD/PEL WO CLINICAL HISTORY: Concern for aspiration abdominal tenderness. TECHNIQUE: Imaging Protocol: Axial computed tomography images with coronal and sagittal reformatted images were created and reviewed. Computer aided detection (CAD) was utilized. CONTRAST MATERIAL: Intravenous: No Oral: no COMPARISON: CT CT CHEST/ABD/PEL W from 03/26/2024 FINDINGS: CHEST: Pulmonary parenchyma: Evaluation limited by mild respiratory motion is well as expiratory changes. Bilateral posterior basilar atelectasis. No dominant measurable mass. Tracheobronchial tree: Endotracheal tube is positioned at the level of the jose. The trachea and bronchi are calcified. Pleura: Tiny bilateral pleural effusions. No pneumothorax. Mediastinum: Within normal limits. Pulmonary arteries: No visible emboli. Cardiovascular: No pericardial effusion. Thoracic aorta non-dilated. Mild atherosclerotic calcifications. Bones: Mild scoliosis. Fusion hardware in the lower cervical spine. No lytic or blastic lesions. No compression fractures. Soft tissues: Unremarkable. ABDOMEN and PELVIS: Exam is limited by streak artifact from patient arm positioning. Liver: Enlarged. Significant hepatic steatosis. No suspicious mass. Gallbladder and biliary tract: No evidence of stones or wall thickening. No biliary dilatation. Pancreas: Atrophic. The there is mild haziness around the pancreas. Findings could indicate pancreatitis. Clinical correlation recommended. Spleen: Normal. Kidneys: Renal cortical scarring. No radiodense stones. No obstructive uropathy. No suspicious masses seen. Adrenal glands: No masses seen. Aorta: Abdominal portion non-dilated. Lymph nodes: Within normal limits. Soft tissues: Significant muscular atrophy. Bladder: Suprapubic catheter. Bowel: A nasogastric tube is positioned in the fundus of the stomach. No obstruction or bowel wall thickening. Diverticulosis of the lower descending and sigmoid colon. The appendix appears normal. Peritoneal cavity: Ascites in the pelvis. No focal collection. No mesenteric inflammatory response. No free air. Bones: Unremarkable for age. Reproductive organs: The uterus is enlarged, consistent with fibroids. IMPRESSION: Limited evaluation of the lungs due to expiratory changes mild motion. Significant bibasilar atelectasis. Pneumonia not excluded. Endotracheal tube projects at the jose and should be retracted. Some small amount of pelvic ascites. Who stranding around the pancreas could indicate pancreatitis. No pseudocyst. Hepatomegaly with severe fatty infiltration. The preliminary [facility] report was reviewed. RADIATION DOSE DELIVERED: Total DLP DATA REPOSITORY: All CT scans at this facility are submitted to the National Radiology Data Registry (NRDR) Dose Index Registry (DIR) with the [employer] ([employer]). RADIATION OPTIMIZATION: All CT scans at this facility use at least one of these dose optimization techniques: automated exposure control; mA and/or kV adjustment per patient size (includes targeted exams where dose is matched to clinical indication); or iterative reconstruction.
--- NOTE | 2025-05-31 13:15 | DI.CT_ITS ---
Exam(s) CT HEAD WO EXAM: CT HEAD WO CLINICAL HISTORY: AMS. TECHNIQUE: Imaging Protocol: Axial computed tomography images with coronal and sagittal reformatted images were created and reviewed COMPARISON: CT CT HEAD WO from 12/25/2022 FINDINGS: Ventricles and Extra axial spaces: Normal in size for the patient's age. Mild ex vacuo dilatation of the frontal horn of the right lateral ventricle. Patent cavum septum pellucidum. Hemorrhage: None. Cerebral parenchyma: No evidence of acute infarct or mass. Old right frontal infarct. Microvascular changes in the white matter. Cerebral and cerebellar atrophy. Midline shift: None. Brainstem/Cerebellum: Old left alexandr infarct. The alexandr appears atrophic. Bones: No skull or facial fractures. Visualized Paranasal sinuses:Mild mucosal thickening. Mastoids: Clear. Soft Tissues: Nasogastric and endotracheal tubes. ORBITS: Unremarkable. PITUITARY: Not enlarged. IMPRESSION: No acute intracranial process. 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 The preliminary [facility] report was reviewed. RADIATION DOSE DELIVERED: Total DLP DATA REPOSITORY: All CT scans at this facility are submitted to the National Radiology Data Registry (NRDR) Dose Index Registry (DIR) with the [employer] (ACR). RADIATION OPTIMIZATION: All CT scans at this facility use at least one of these dose optimization techniques: automated exposure control; mA and/or kV adjustment per patient size (includes targeted exams where dose is matched to clinical indication); or iterative reconstruction.
[2025-05-31] MEDS: PIPERACILLIN/TAZO 3.375 GM in Normal Saline 50 ML IVPB (13:31)
[2025-05-31 13:43] LABS: BE (Venous) -3 mmol/L (-2-3); HCO3 (Venous) 24 mmol/L (23-28); O2 Sat (Venous) 92 %; TCO2 (Venous) 23 mmol/L (24-29); pCO2 (Venous) 49 mmHg (41-51); pO2 (Venous) 73 mmHg
[2025-05-31] MEDS: HYDROmorphone 2 MG/ML SYR 1 MG IVP ×2 (13:43→13:48)
[2025-05-31 13:44] LABS: Abs Immature Grans 0.09 10^3/uL (0.0-0.06); HCT 31.7 % (36.0-46.0); HGB 9.8 g/dL (11.2-15.7); Immature Grans % 0.7 %; MCH 30.6 pg (27.0-33.0); MCHC 30.9 % (32.0-36.0); MCV 99 fL (80-95); MPV 10.2 fL (8.0-11.0); Platelet Count 188 10^3/uL (130-400); RBC 3.20 10^6/uL (3.93-5.22); RDW 19.3 % (11.7-14.6); RDW-SD 67.7 fL; WBC 12.46 10^3/uL (4.4-10.8)
[2025-05-31 13:51] LABS: Glucose 100 mg/dL (Negative)
[2025-05-31 14:04] LABS: WBC >50 HPF (0-5)
[2025-05-31 14:05] LABS: C & S Indicated? Yes
[2025-05-31 14:12] LABS: AST 100 U/L (15-37); Albumin 1.8 g/dL (3.4-5.0); Alkaline Phosphatase 133 U/L (46-116); Anion Gap 10.9 mmol/L (3-11); BUN 11 mg/dL (7-18); Bilirubin, Total 1.0 mg/dL (0.2-1.0); CO2 26.1 mmol/L (21.0-32.0); Calcium 9.4 mg/dL (8.5-10.1); Chloride 102 mmol/L (98-107); Estimated GFR 17.42 (mL/min/1.73m2); Glucose 140 mg/dL (74-106); Magnesium 2.8 mg/dL (1.8-2.4); Potassium 4.8 mmol/L (3.5-5.1); Sodium 139 mmol/L (136-145); TSH (W/Ref FT4) 1.11 uIU/mL (0.36-3.74); Total Protein 6.7 g/dL (6.4-8.2); Troponin I 26 ng/L (<or=51)
[2025-05-31 14:29] LABS: ALT < 6 U/L (14-59)
--- NOTE | 2025-05-31 14:38 | DI.[facility]_ITS ---
Addendum created by Newton Kulkarni MD on 05/31/2025 2:40:45 PM EDT: ADDENDUM: THIS REPORT CONTAINS FINDINGS THAT MAY BE CRITICAL TO PATIENT CARE. The findings were verbally communicated via telephone conference with MANDO Thomas at 2:40 PM EDT on 05/31/2025. The findings were acknowledged and understood. Initial report created on 05/31/2025 2:37:28 PM EDT: PROCEDURE INFORMATION: Exam: XR Chest Exam date and time: 05/31/2025 1:06 PM Age: 65 years old Clinical indication: Device placement; Other: S/P intubation TECHNIQUE: Imaging protocol: Radiologic exam of the chest. Views: 1 view. COMPARISON: CR XR CHEST 2V PA LATERAL 05/12/2024 11:45 AM FINDINGS: Tubes, catheters and devices: The tip of the ET tube is in the right mainstem bronchus and needs to be retracted by 8 cm. Lungs: There is complete collapse of the left lung mediastinal shift to the left. Pleural spaces: Unremarkable. No pleural effusion. No pneumothorax. Heart/Mediastinum: See Lungs finding. Bones/joints: There are moderate degenerative changes of the glenohumeral joints. Moderate degenerative disease of the left acromioclavicular joint. Post ACDF of the lower cervical spine. IMPRESSION: Tip of the ET tube is in the right mainstem bronchus and needs to be retracted by 8 cm. The position of the ET tube has been adjusted on the follow-up study at the time of the report of the examination. Dictated and Authenticated by: Newton Kulkarni MD. Orderin Jan Weiss MD
--- NOTE | 2025-05-31 14:40 | DI.[facility]_ITS ---
PROCEDURE INFORMATION: Exam: XR Chest Exam date and time: 05/31/2025 1:16 PM Age: 65 years old Clinical indication: Device placement; Other: S/P et tube adjustment TECHNIQUE: Imaging protocol: Radiologic exam of the chest. Views: 1 view. COMPARISON: CR XR PORTABLE CHEST AP POST LINE 05/31/2025 1:06 PM FINDINGS: Tubes, catheters and devices: Interval retraction of the ET tube with its tip seen in the right mainstem bronchus. Lungs: There is improved aeration of the left lung Pleural spaces: Unremarkable. No pleural effusion. No pneumothorax. Heart/Mediastinum: Unremarkable. No cardiomegaly. Bones/joints: Unremarkable. IMPRESSION: 1. Post retraction of the ET tube which is still seen in the right mainstem bronchus. Improved aeration of the left lung. THIS REPORT CONTAINS FINDINGS THAT MAY BE CRITICAL TO PATIENT CARE. The findings were verbally communicated via telephone conference with MANDO Thomas at 2:39 PM EDT on 05/31/2025. The findings were acknowledged and understood. Dictated and Authenticated by: Newton Kulkarni MD. Orderin Jan Weiss MD
--- NOTE | 2025-05-31 14:42 | DI.[facility]_ITS ---
PROCEDURE INFORMATION: Exam: XR Chest Exam date and time: 05/31/2025 1:20 PM Age: 65 years old Clinical indication: Device placement; Other: Post et tube adjustment TECHNIQUE: Imaging protocol: Radiologic exam of the chest. Views: 1 view. COMPARISON: CR XR PORTABLE CHEST AP POST LINE 05/31/2025 1:16 PM FINDINGS: Tubes, catheters and devices: The tip of the ET tube is 9 mm proximal to the jose. Tip of the feeding tube is in the stomach. Lungs: Bibasilar atelectasis. Pleural spaces: Unremarkable. No pleural effusion. No pneumothorax. Heart/Mediastinum: The heart is enlarged. Bones/joints: There are mild degenerative changes of the glenohumeral joint. Post ACDF of the lower cervical spine. IMPRESSION: Tip of the ET tube is 9 cm proximal to the jose. THIS REPORT CONTAINS FINDINGS THAT MAY BE CRITICAL TO PATIENT CARE. The findings were verbally communicated via telephone conference with MANDO Thomas at 2:41 PM EDT on 05/31/2025. The findings were acknowledged and understood. Dictated and Authenticated by: Newton Kulkarni MD. Orderin Jan Weiss MD
--- NOTE | 2025-05-31 14:45 | DI.RAD_ITS ---
Exam(s) XR PORTABLE CHEST AP POST LINE EXAM: XR PORTABLE CHEST AP POST LINE CLINICAL HISTORY: Confirm central line repositioned ET TECHNIQUE: 2D digital imaging was performed. COMPARISON: CT CT CHEST/ABD/PEL WO from 05/31/2025 FINDINGS: The endotracheal tube has been pulled back and now lies 7 cm above the level of the jose. Internal jugular catheter has been inserted with the tip projecting at the cavoatrial junction. Nasogastric tube side hole is now projecting at the GE junction. The nasogastric tube should be advanced. LUNGS: Mildly increased densities are seen at the left lung base, unchanged. No pleural abnormality seen. HEART: Normal size. AORTA: Normal diameter. BONES: Unremarkable for age. Soft tissues: Unremarkable. IMPRESSION: Status post placement of right internal jugular catheter with tip at the cavoatrial junction. Endotracheal tube is now positioned well above the jose. The preliminary [facility] report was reviewed. DATA REPOSITORY: RADIATION DOSE DELIVERED:
[2025-05-31] MEDS: VASOPRESSIN 50 UNITS in Normal Saline 497.5 ML 6 UNITS IV (14:48)
--- NOTE | 2025-05-31 14:48 | DI.[facility]_ITS ---
PROCEDURE INFORMATION: Exam: CT Chest Without Contrast; Diagnostic Exam date and time: 05/31/2025 2:02 PM Age: 65 years old Clinical indication: Other: Concern for aspiration, abdominal tenderness TECHNIQUE: Imaging protocol: Diagnostic computed tomography of the chest without contrast. 3D rendering (Not supervised by radiologist): MIP and/or 3D reconstructed images were created by the technologist. Radiation optimization: All CT scans at this facility use at least one of these dose optimization techniques: automated exposure control; mA and/or kV adjustment per patient size (includes targeted exams where dose is matched to clinical indication); or iterative reconstruction. COMPARISON: CT CHEST/ABD/PEL W 03/26/2024 1:33 PM FINDINGS: Tubes, catheters and devices: Tip of the ET tube is at the jose. Tip of the feeding tube is in the stomach. Lungs: Bronchiectatic changes in both lower lobes. Bilateral lower lobe consolidation. Mucous plugging in the left lower lobe bronchus. Patchy ground-glass infiltrates in the left perihilar region and to a lesser extent right suprahilar region. Pleural spaces: Trace bilateral pleural effusions. Heart: Unremarkable. No cardiomegaly. No pericardial effusion. Coronary arteries: There is mild atherosclerotic calcification of the coronary arteries. Lymph nodes: Unremarkable. No enlarged lymph nodes. Vasculature: The vasculature demonstrates diffuse mild atherosclerotic calcification. Bones/joints: Mild curvature of the thoracic spine convex to the right. Post ACDF of the lower cervical spine. Demineralization of the visualized bones, limiting sensitivity for nondisplaced fractures. Soft tissues: Unremarkable. IMPRESSION: 1. Bilateral lower lobe segmental consolidations with mucous plugging in the left lower lobe and perihilar ground-glass opacities, suggestive of pneumonia. 2. Tip of the ET tube is at the jose and needs to be retracted by 3 cm. THIS REPORT CONTAINS FINDINGS THAT MAY BE CRITICAL TO PATIENT CARE. The findings were verbally communicated via telephone conference with MANDO Thomas at 2:38 PM EDT on 05/31/2025. The findings were acknowledged and understood. PROCEDURE INFORMATION: Exam: CT Abdomen And Pelvis Without Contrast Exam date and time: 05/31/2025 2:02 PM Age: 65 years old Clinical indication: Other: Concern for aspiration, abdominal tenderness TECHNIQUE: Imaging protocol: Computed tomography of the abdomen and pelvis without contrast. 3D rendering (Not supervised by radiologist): MIP and/or 3D reconstructed images were created by the technologist. Radiation optimization: All CT scans at this facility use at least one of these dose optimization techniques: automated exposure control; mA and/or kV adjustment per patient size (includes targeted exams where dose is matched to clinical indication); or iterative reconstruction. COMPARISON: CT CHEST/ABD/PEL W 03/26/2024 1:33 PM FINDINGS: Tubes, catheters and devices: Tip of the feeding tube is in the stomach. Liver: There is a diffuse decrease in hepatic parenchymal density, consistent with fatty infiltration. Gallbladder and biliary ducts: Normal. No calcified stones. No ductal dilation. Pancreas: There is fat stranding surrounding the head of the pancreas. Spleen: Normal. No splenomegaly. Adrenal glands: Normal. No mass. Kidneys and ureters: Normal. No hydronephrosis. Stomach and bowel: Moderate diverticulosis is present in the distal colon. Appendix: No evidence of appendicitis. Intraperitoneal space: Unremarkable. No free air. No significant fluid collection. Vasculature: The vasculature demonstrates diffuse moderate atherosclerotic calcification. There are numerous benign phleboliths in the pelvis. Lymph nodes: Unremarkable. No enlarged lymph nodes. Urinary bladder: Suprapubic Martinez catheter with its tip in the bladder. Reproductive: Unremarkable as visualized. Bones/joints: There are mild degenerative changes of the hip joints. The pubic symphysis demonstrates mild degenerative changes. There are mild degenerative changes of the sacroiliac joints. Severe degenerative disease at L5-S1 There are multiple calcified granulomas of the spleen. Soft tissues: Fatty atrophy of the right hip muscles. IMPRESSION: Findings suspicious for pancreatitis with no pancreatic collections. Dictated and Authenticated by: Newton Kulkarni MD. Orderin Jan Weiss MD
[2025-05-31] MEDS: VANCOMYCIN/WATER (PEG) 2 GM/400 ML BAG IVPB (14:52)
--- NOTE | 2025-05-31 14:54 | DI.[facility]_ITS ---
PROCEDURE INFORMATION: Exam: CT Head Without Contrast Exam date and time: 05/31/2025 2:01 PM Age: 65 years old Clinical indication: Other: AMS TECHNIQUE: Imaging protocol: Computed tomography of the head without contrast. Radiation optimization: All CT scans at this facility use at least one of these dose optimization techniques: automated exposure control; mA and/or kV adjustment per patient size (includes targeted exams where dose is matched to clinical indication); or iterative reconstruction. COMPARISON: CT HEAD WO 12/25/2022 11:47 AM FINDINGS: Brain: There are bilateral periventricular white matter and centrum semiovale hypodensities, consistent with chronic ischemic small vessel disease. Age related diffuse parenchymal volume loss. Encephalomalacia in the right periventricular white matter, from prior insult. No recent infarct, intracranial bleed or mass effect. Old lacunar infarct in the alexandr. Cerebral ventricles: There is a normal-variant cavum septum pellucidum. Paranasal sinuses: Mild mucosal disease of the right maxillary sinus and right sphenoid sinus. Mastoid air cells: Visualized mastoid air cells are well aerated. Orbital cavities: Post bilateral cataract surgery. Bones: Unremarkable. No acute fracture. Soft tissues: Unremarkable. IMPRESSION: No large territorial infarct or intracranial bleed. Dictated and Authenticated by: Newton Kulkarni MD. Orderin Jan Weiss MD
--- NOTE | 2025-05-31 15:17 | DI.[facility]_ITS ---
PROCEDURE INFORMATION: Exam: XR Chest Exam date and time: 05/31/2025 3:07 PM Age: 65 years old Clinical indication: Other: Confirm central line repositioned et TECHNIQUE: Imaging protocol: Radiologic exam of the chest. Views: 1 view. COMPARISON: CT CHEST/ABD/PEL WO 05/31/2025 2:02 PM FINDINGS: Tubes, catheters and devices: Tip of the ET tube is 7 cm proximal the jose. Tip of the feeding tube is in the stomach. Right internal jugular central line tip is at the superior cavoatrial junction. Lungs: Bibasilar atelectasis. Patchy perihilar opacities, similar to prior study. Pleural spaces: Unremarkable. No pleural effusion. No pneumothorax. Heart/Mediastinum: Unremarkable. No cardiomegaly. Bones/joints: The thoracic spine demonstrates mild degenerative changes at multiple levels. IMPRESSION: 1. Tip of the ET tube is 7 cm proximal to the jose. 2. Tip of the right internal jugular central line tip is in the superior cavoatrial junction. 3. No pneumothorax Dictated and Authenticated by: Newton Kulkarni MD. Orderin Jan Weiss MD
[2025-05-31] MEDS: Norepinephrine in D5W 8 MG/250 ML BAG 93.75 MG IV ×3 (16:00→21:03)
[2025-05-31 16:20] LABS: Anion Gap 14.8 mmol/L (3-11); BUN 10 mg/dL (7-18); CO2 20.2 mmol/L (21.0-32.0); Calcium 8.3 mg/dL (8.5-10.1); Chloride 103 mmol/L (98-107); Estimated GFR 18.98 (mL/min/1.73m2); Glucose 222 mg/dL (74-106); Potassium 4.5 mmol/L (3.5-5.1); Sodium 138 mmol/L (136-145)
[2025-05-31] MEDS: Normal Saline-STERILE FIELD 0.9% 10 ML SYR (16:27)
[2025-05-31 16:36] LABS: Troponin I 76 ng/L (<or=51)
[2025-05-31 16:41] LABS: Lab Add On Test DONE
--- NOTE | 2025-05-31 16:46 | W.PM.HP.N ---
Date of service: 05/31/25 Time of Service: 17:01 Assessment and Plan Assessment and plan (1) Septic shock: Status: Acute Assessment and plan: - Patient meets criteria for septic shock with heart rate in the 120s, white blood cell count 12.4, source of infection presumed UTI with chronic indwelling Martinez catheter and/or aspiration pneumonia, creatinine of 2.7 indicating DALTON (baseline less than 1), ongoing hypotensive with mean arterial blood pressure less than 65 despite 4 L of normal saline fluid resuscitation requiring central line placement with both Levophed and vasopressin to maintain mean arterial pressure greater than 65, as well as initial lactic of 6.8 that increased up to 8.5 - Patient was started on Vanco and Zosyn, will change to Vanco and cefepime given that patient also has DALTON - Continue Levophed and vasopressin to maintain mean arterial pressure greater than 65, preferentially wean vasopressin first - As noted in HPI, emergency room provider had extensive conversations with patient's family including patient's father with the decision being patient is a DNR, would not want transfer, and is essentially on no escalation of care, in the event that her condition does not improve or her condition worsens she would be transitioned to comfort measures only (2) Acute hypoxemic respiratory failure: Status: Acute Assessment and plan: - Requiring intubation as patient was obtunded upon arrival and pulse ox was 68% - Initial difficulty with ET tube placement which has since been resolved (3) Acute kidney injury: Status: Resolved Assessment and plan: - Secondary to septic shock as noted above - Follow-up a.m. creatinine (4) Lactic acid acidosis: Status: Resolved Assessment and plan: - Secondary to septic shock and hypoxemia as noted above - Follow-up a.m. lactic acid (5) Hemiparesis affecting right side as late effect of cerebrovascular accident: Status: Chronic Assessment and plan: - Chronic after significant CVA History of Present Illness History of Present Illness Chief Complaint: Lethargy Narrative: 65-year-old female with a past medical history of CVA with chronic right-sided deficit, parkinsonism, bipolar 1, presents to the emergency department after being found at the [facility] unresponsive. Patient was found unresponsive by the staff at the [facility], she was unable to wake up and was brought in to the emergency department unresponsive. Upon arrival to the emergency department patient was determined to require emergency airway management and was endotracheally intubated (please see ED procedure note for details). There were initial issues with the depth of the ET tube seen on imaging but this was also resolved while in the emergency department. Patient was given Vanco and Zosyn as she was also noted as having significantly low blood pressure and concern for septic shock. However, patient did have a CBC with a white blood cell count of only 12, creatinine of 2.7 indicating DALTON (baseline less than 1), UA with nitrite negative, large leuk esterase, greater than 50 WBCs, and patient has known indwelling Martinez catheter. Additionally, patient's initial lactic acid was 6.8 and since been increasing to 7.7 and 8.5 despite 4 L of normal saline fluid resuscitation in combination with central line placement, initiation of norepinephrine and vasopressin. Imaging initially showed opacification of the left hemithorax and ET tube in the right mainstem bronchus needing to be retracted 7 to 8 cm which has since been done with satisfactory ET tube placement and resolution of left hemithorax opacification. Emergency room provider had extensive discussions with patient's family including her father who understands the severity of her illness. In combination with her chronic medical illness and her poor health prior to this event, decision was made for patient to be DNR and essentially be in no escalation of care, with the request being continuing current management, no transfer, and if patient does not improve or rapidly worsens will transition to comfort care. At which time emergency room physician paged hospitalist for admission for patient with septic shock on Levophed and vaso, and endotracheally intubated. Review of Systems All systems reviewed & are unremarkable except as noted in HPI and below PFSH All Active Problems (Updated 05/31/25 @ 17:17 by Campbell Scott MD) Acute hypoxemic respiratory failure (Acute) Macrocytic anemia (Acute) Septic shock (Acute) Incontinence (Acute) Nail dystrophy (Acute) Vulvar irritation (Acute) Decubitus ulcer (Acute) Sepsis (Acute) Pneumonia (Acute) Bacteremia (Acute) Diarrhea (Acute) Hypoalbuminemia (Acute) Hyperglycemia (Acute) High anion gap metabolic acidosis (Acute) Anemia (Chronic) Advanced care planning/counseling discussion (Acute) Gallstones (Acute) Tardive dyskinesia (Acute) Bipolar affective disorder, current episode depressed (Acute) rule out bipolar disorder reported by patient. Antiepileptics maybe preventing manic episode. Major depressive disorder, recurrent, severe with psychotic features (Acute) Current presentation is depression. She may have bipolar affective disorder. Ambulatory dysfunction (Chronic) Dysarthria as late effect of cerebrovascular accident (CVA) (Acute) Dysphagia as late effect of cerebrovascular accident (CVA) (Chronic) Hemiparesis affecting right side as late effect of cerebrovascular accident (Chronic) Medical History (Updated 05/31/25 @ 17:17 by Campbell Scott MD) Diabetes mellitus type 2, insulin dependent Parkinsonism Bipolar 1 disorder Acute bronchitis Diarrhea Abdominal bloating Abdominal pain Pyelonephritis Microcytic anemia Emphysematous pyelonephritis Hydronephrosis of right kidney Pyuria due to bacterial urinary tract infection Arthritis of left shoulder region Left rotator cuff tear Cough Ileus History of stroke (R) Sided hemiparesis and (R) contracture of elbow Palliative care encounter Diverticulosis Nephrolithiasis Uterine mass likely a fibroid Cholelithiasis with acute cholecystitis s/p cholecystostomy and stone extraction in 2014 ([facility]), tube now pulled. 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 UTI (urinary tract infection) Chronic chest pain Constipation Staghorn calculus Autoimmune disorder Neck pain UTI (urinary tract infection) Aphasia as late effect of cerebrovascular accident Surgical History History of extraction of renal calculus 12/13/2018 - [facility] S/P cystoscopy with ureteral stent placement [facility] 11/2018 History of hip surgery right H/O wrist surgery H/O foot surgery History of lumbosacral spine surgery Abnormal cholangiogram H/O cervical spine surgery Status post creation of urethral sling by suprapubic approach Family History Mother Stroke Social History Smoking/Tobacco Use Status: Unknown Smoking risk assessment performed?: Yes Alcohol Intake: former Drug use: Current Sobriety Substance use type: former substance user and IV drugs Housing: prison Number of Children: 5 Education Level: elementary school Details: 6th grade, special ed, left school age 16. Current gender identity: female What is your relationship status?: Panel score (0-1 are the most socially isolated patients): 0 What type of physical activity do you participate in: none Do you feel safe at home: Yes Do you feel safe in your relationship?: Yes Additional Social history: [place] Meds Allergies and Home Medications Allergies Allergy/AdvReac Type Severity Reaction Status Date / Time naproxen (From Aleve) Allergy Unknown Itching Verified 05/31/25 13:11 Penicillins Allergy Unknown Itching Verified 05/31/25 13:11 propoxyphene Allergy Unknown Itching Verified 05/31/25 13:11 Sulfa (Sulfonamide Allergy Unknown Itching Verified 05/31/25 13:11 Antibiotics) methadone Allergy Nausea Verified 05/31/25 13:11 Home Medications ?Medication ?Instructions ?Recorded ?Confirmed ?Type mirtazapine 15 mg tablet 15 mg PO QHS 03/26/20 02/12/25 History lamotrigine 25 mg tablet (Lamictal) 50 mg (2 x 25 mg) PO DAILY #1 tab 04/08/20 02/12/25 Rx metformin 500 mg tablet 500 mg PO DAILY 12/20/20 05/31/25 History lactase 3,000 unit tablet (Lactaid) 9,000 unit PO TID 06/22/21 02/12/25 History acetaminophen 500 mg tablet 500 mg PO BID 06/01/22 05/31/25 History fluticasone propionate 50 1 spray intranasal BID 06/01/22 05/31/25 History mcg/actuation nasal spray,suspension (Flonase Allergy Relief) B-complex with vitamin C 1 cap PO DAILY 11/09/22 02/12/25 History carbidopa 25 mg-levodopa 100 mg 1 tab PO QID 11/09/22 02/12/25 History tablet levothyroxine 100 mcg tablet 100 mcg PO QHS 11/09/22 05/31/25 History atorvastatin 20 mg tablet 20 mg PO QPM #0 tabs 11/28/22 02/10/25 Rx lorazepam 0.5 mg tablet 0.5 mg PO BID 12/24/22 05/31/25 History gabapentin 600 mg tablet 600 mg PO BID 01/19/23 05/31/25 History quetiapine 100 mg tablet 100 mg PO TID 01/19/23 02/12/25 History simethicone 180 mg capsule 180 mg PO TID 01/19/23 05/31/25 History trazodone 50 mg tablet 50 mg PO BID 01/19/23 05/31/25 History omeprazole 20 mg capsule,delayed 40 mg PO DAILY 07/23/23 02/12/25 History release bupropion HCl 150 mg 24 hr tablet, 150 mg PO DAILY 12/11/23 02/12/25 History extended release (Wellbutrin XL) ferrous gluconate 324 mg (37.5 mg 324 mg PO DAILY 12/11/23 05/31/25 History iron) tablet magnesium gluconate 12.5 mg 500 mg PO BID 12/11/23 05/31/25 History magnesium (250 mg) tablet polyethylene glycol 3350 17 gram 17 g PO BID 12/11/23 02/12/25 History oral powder packet (Miralax) potassium chloride 10 mEq 10 meq PO DAILY 12/11/23 02/12/25 History tablet,extended release(part/cryst) (Klor-Con M) ropinirole 0.5 mg tablet 0.5 mg PO QHS 12/11/23 05/31/25 History tramadol 50 mg tablet 50 mg PO HS 12/11/23 05/31/25 History nitrofurantoin 50 mg PO DAILY 03/26/24 02/12/25 History monohydrate/macrocrystals 100 mg capsule (Macrobid) Lactobacillus acidophilus-pectin 1 cap PO BID 05/09/24 02/12/25 History capsule albuterol sulfate 90 mcg/actuation 1 puff inhalation BID 05/09/24 02/12/25 History aerosol inhaler (Ventolin HFA) cranberry extract 500 mg capsule 500 mg PO DAILY 05/09/24 02/12/25 History (Cranberry Concentrate) ipratropium 0.5 mg-albuterol 3 mg 3 ml inhalation BID 05/09/24 05/31/25 History (2.5 mg base)/3 mL nebulization soln lactulose 10 gram/15 mL oral 10 g PO DAILY 05/09/24 02/12/25 History solution benzocaine 20 %-menthol 0.1 %-zinc 1 applic mucous membrane QID PRN 05/12/24 02/12/25 History chloride 0.15 % mucosal gel PRN (Orajel 3X Mouth Sores) calcium carbonate (Tums) 200 mg PO Q4H PRN PRN 05/12/24 02/12/25 History cefpodoxime 200 mg tablet 200 mg PO BID #14 tabs 05/12/24 02/12/25 Rx docusate sodium 100 mg capsule 200 mg PO BID PRN 05/12/24 02/12/25 History lidocaine 5 % topical patch 1 patch topical Q24H 05/12/24 02/12/25 History tramadol 50 mg tablet 50 mg PO Q6H PRN 05/12/24 02/12/25 History mirabegron 50 mg tablet,extended 50 mg PO DAILY #90 tabs 01/16/25 02/12/25 Rx release 24 hr (Myrbetriq) methocarbamol BID 02/12/25 History duloxetine 30 mg capsule,delayed 30 mg PO DAILY 05/31/25 05/31/25 History release Exam Narrative Exam Narrative: Chronically ill-appearing intubated and sedated female, does not appear in any acute distress, heart rate 120s, regular rhythm, lungs with mechanical breath sounds in bilateral lung yeung, abdomen distended, soft Results Labs 05/31/25 13:30 05/31/25 15:52 Labs: Laboratory Results - last 24 hr 05/31/25 05/31/25 05/31/25 13:22 13:30 15:29 WBC 12.46 H RBC 3.20 L Hgb 9.8 L Hct 31.7 L MCV 99 H MCH 30.6 MCHC 30.9 L RDW 19.3 H Plt Count 188 MPV 10.2 Immature Gran % 0.7 Neutrophils % 76.5 Lymphocytes % 17.3 Monocytes % 5.2 Eosinophils % 0.1 Basophils % 0.2 Nucleated RBC % 0.0 Absolute Neutrophils 9.53 H Absolute Lymphocytes 2.16 Absolute Monocytes 0.65 Absolute Eosinophils 0.01 Absolute Basophils 0.02 VBG pH 7.30 L VBG pCO2 49 VBG pO2 73 VBG HCO3 24 VBG Total CO2 23 L VBG O2 Saturation 92 VBG Base Excess -3 L VBG Lactate 6.8 H* 7.7 H* Sodium 139 Potassium 4.8 Chloride 102 Carbon Dioxide 26.1 Anion Gap 10.9 BUN 11 Creatinine 2.9 H Est GFR (CKD-EPI 2020) 17.42 Glucose 140 H Calcium 9.4 Magnesium 2.8 H Total Bilirubin 1.0 AST 100 H ALT < 6 L Alkaline Phosphatase 133 H Troponin I 26 76 H* Total Protein 6.7 Albumin 1.8 L TSH 1.11 Urine Color Dark Yellow Urine Clarity Cloudy Urine pH 5.5 Ur Specific [place] 1.025 Urine Protein >=300 H Urine Ketones 15 H Urine Blood Large H Urine Nitrite Negative Urine Bilirubin Small H Urine Urobilinogen 1.0 H Ur Leukocyte Esterase Large H Urine RBC Not Applicable Urine WBC >50 H Ur Epithelial Cells Not Applicable Urine Crystals Not Applicable Urine Bacteria Not Applicable Urine Mucus Not Applicable Ur Culture Indicated? Yes Urine Glucose 100 H Add-On Test Request DONE ABO/Rh A Positive Antibody Screen NEGATIVE 05/31/25 15:52 WBC RBC Hgb Hct MCV MCH MCHC RDW Plt Count MPV Immature Gran % Neutrophils % Lymphocytes % Monocytes % Eosinophils % Basophils % Nucleated RBC % Absolute Neutrophils Absolute Lymphocytes Absolute Monocytes Absolute Eosinophils Absolute Basophils VBG pH VBG pCO2 VBG pO2 VBG HCO3 VBG Total CO2 VBG O2 Saturation VBG Base Excess VBG Lactate 8.5 H* Sodium 138 Potassium 4.5 Chloride 103 Carbon Dioxide 20.2 L Anion Gap 14.8 H BUN 10 Creatinine 2.7 H Est GFR (CKD-EPI 2020) 18.98 Glucose 222 H Calcium 8.3 L Magnesium Total Bilirubin AST ALT Alkaline Phosphatase Troponin I Total Protein Albumin TSH Urine Color Urine Clarity Urine pH Ur Specific [place] Urine Protein Urine Ketones Urine Blood Urine Nitrite Urine Bilirubin Urine Urobilinogen Ur Leukocyte Esterase Urine RBC Urine WBC Ur Epithelial Cells Urine Crystals Urine Bacteria Urine Mucus Ur Culture Indicated? Urine Glucose Add-On Test Request ABO/Rh Antibody Screen Last Vital Signs Temp 96.9 F L 05/31/25 12:30 Pulse 129 H 05/31/25 16:40 Resp 15 05/31/25 16:40 BP 108/60 05/31/25 16:40 Pulse Ox 94 05/31/25 16:40 Time Spent Time spent with Patient: >75 minutes Time was spent: preparing to see the patient(eg.review tests), obtaining and/or reviewing separately otained hiistory, ordering medications,tests, procedures, referring, communicating with other health healthcare representative, indepentently interpreting results, counseling the patient and care coordination
[2025-05-31 17:07] LABS: Lipase 10 U/L (<78)
[2025-05-31] MEDS: Aspirin 300 MG SUPP PR (17:16)
[2025-05-31 18:08] LABS: Troponin I 147 ng/L (<or=51)
[2025-05-31] MEDS: Miconazole 2% Topical Powder 85 GM BTL (18:30)
--- NOTE | 2025-05-31 19:19 | W.PC.ACHO ---
Registration Status: ADM IN Primary Language: Preferred Language: Yi ED Information & Data Chief Complaint AMS/LOC 05/31/25 12:41 Triage Note pt has not been eating or 05/31/25 12:41 drinking for the past few days, declining today w/ minimal urine output and dry mucous membranes. AMS reported by Ana M nurse. EMS reports minimal eye opening , inserted a nasal airway w/ out any reaction Medical / Surgical History (Last Reviewed 02/12/25 @ 10:29 by Renetta Calvo RN) Diabetes mellitus type 2, insulin dependent Parkinsonism Bipolar 1 disorder Acute bronchitis Diarrhea Abdominal bloating Abdominal pain Pyelonephritis Microcytic anemia Emphysematous pyelonephritis Hydronephrosis of right kidney Pyuria due to bacterial urinary tract infection Arthritis of left shoulder region Left rotator cuff tear Cough Ileus History of stroke Palliative care encounter Diverticulosis Nephrolithiasis Uterine mass Cholelithiasis with acute cholecystitis Steroid dependent Chronic adrenal insufficiency Hypothyroidism Hemiparesis affecting right side as late effect of cerebrovascular accident (CVA) Lumbar disc disease Anxiety Hepatitis C Bipolar 1 disorder IDDM (insulin dependent diabetes mellitus) Hypertension History of multiple cerebrovascular accidents (CVAs) Obesity (BMI 30.0-34.9) Neurogenic bladder 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 UTI (urinary tract infection) Chronic chest pain Constipation Staghorn calculus Autoimmune disorder Neck pain UTI (urinary tract infection) Aphasia as late effect of cerebrovascular accident (Last Reviewed 02/12/25 @ 10:29 by Renetta Calvo RN) History of extraction of renal calculus S/P cystoscopy with ureteral stent placement History of hip surgery H/O wrist surgery H/O foot surgery History of lumbosacral spine surgery Abnormal cholangiogram H/O cervical spine surgery Status post creation of urethral sling by suprapubic approach Most Recent Vital Signs Temperature 35.9 C L 05/31/25 17:50 Temperature Source Rectal 05/31/25 14:57 Pulse 126 H 05/31/25 18:50 Pulse 126 H 05/31/25 18:50 Respiratory Rate 15 05/31/25 18:50 Respiratory Effort Mechanically Ventilated 05/31/25 12:30 Blood Pressure 89/61 L 05/31/25 18:45 Blood Pressure Mean 71 05/31/25 18:45 Blood Pressure Position Sitting 05/31/25 12:41 Pulse Oximetry 93 05/31/25 18:50 Respiratory End-tidal CO2 37 05/31/25 18:25 Oxygen Delivery Method Mechanical Ventilator 05/31/25 17:50 Oxygen Flow Rate 0 05/31/25 17:50 Fraction of Inspired Oxygen (FIO2) 30 05/31/25 18:25 Comment ALOC. Unable to rate. 05/31/25 12:30 Arterial Systolic 88 05/31/25 18:50 Arterial Diastolic 47 05/31/25 18:50 Arterial Mean 61 05/31/25 18:50 Allergies naproxen (From Aleve) Allergy (Unknown, Verified 05/31/25 13:11) Itching Penicillins Allergy (Unknown, Verified 05/31/25 13:11) Itching propoxyphene Allergy (Unknown, Verified 05/31/25 13:11) Itching Sulfa (Sulfonamide Antibiotics) Allergy (Unknown, Verified 05/31/25 13:11) Itching methadone Allergy (Verified 05/31/25 13:11) Nausea Active Medications Generic Name Dose Route Start Last Admin Trade Name Freq PRN Reason Stop Dose Admin Norepinephrine Bitartrate 8 mg in 250 mls @ 0 mls/hr 05/31/25 12:45 05/31/25 18:28 IV 50 mcg/min INFUSION HANSA 93.75 mls/hr Protocol Administration Per Protocol Vasopressin 50 units/ Sodium 500 mls @ 24 mls/hr 05/31/25 14:15 05/31/25 15:05 Chloride IV 0.04 units/min INFUSION HANSA 24 mls/hr Protocol Titration 0.04 UNITS/MIN Propofol 1,000 mg in 100 mls @ 0 mls/hr 05/31/25 16:45 05/31/25 18:54 Diprivan IV_INF 35.11 mcg/kg/min INFUSION HANSA 15 mls/hr Protocol Titration Per Protocol IV IV Catheter Type [Right Triple Lumen Subclavian Internal Jugular] IV Catheter Type [Left Wrist] Saline Lock IV Catheter Type [Left Upper Saline Lock arm] IV Catheter Gauge [Left Wrist] 20 IV Catheter Gauge [Left Upper 18 arm] Diet Orders Category Date Time Status npo [Nothing Per Oral] [DIET] Nutrition 05/31/25 12:31 Active Diagnostics 05/31/25 05/31/25 05/31/25 Range/Units 17:22 15:52 15:29 WBC (4.4-10.8) 10^3/uL RBC (3.93-5.22) 10^6/uL Hgb (11.2-15.7) g/dL Hct (36.0-46.0) % MCV (80-95) fL MCH (27.0-33.0) pg MCHC (32.0-36.0) % RDW (11.7-14.6) % Plt Count (130-400) 10^3/uL MPV (8.0-11.0) fL Immature Gran % % Neutrophils % % Lymphocytes % % Monocytes % % Eosinophils % % Basophils % % Nucleated RBC % (0.0-0.3) % Absolute Neutrophils (1.2-6.7) 10^3/uL Absolute Lymphocytes (1.2-3.4) 10^3/uL Absolute Monocytes (0.1-0.8) 10^3/uL Absolute Eosinophils (0.0-0.7) 10^3/uL Absolute Basophils (0.0-0.2) 10^3/uL VBG pH (7.31-7.41) VBG pCO2 (41-51) mmHg VBG pO2 mmHg VBG HCO3 (23-28) mmol/L VBG Total CO2 (24-29) mmol/L VBG O2 Saturation % VBG Base Excess (-2-3) mmol/L VBG Lactate 8.5 H* 7.7 H* (<or=2.0) mmol/L Sodium 138 (136-145) mmol/L Potassium 4.5 (3.5-5.1) mmol/L Chloride 103 (98-107) mmol/L Carbon Dioxide 20.2 L (21.0-32.0) mmol/L Anion Gap 14.8 H (3-11) mmol/L BUN 10 (7-18) mg/dL Creatinine 2.7 H (0.55-1.02) mg/dL Est GFR (CKD-EPI 2020) 18.98 (mL/min/1.73m2) Glucose 222 H (74-106) mg/dL Calcium 8.3 L (8.5-10.1) mg/dL Magnesium (1.8-2.4) mg/dL Total Bilirubin (0.2-1.0) mg/dL AST (15-37) U/L ALT (14-59) U/L Alkaline Phosphatase (46-116) U/L Troponin I 147 H* 76 H* (<or=51) ng/L Total Protein (6.4-8.2) g/dL Albumin (3.4-5.0) g/dL Lipase 10 (<78) U/L TSH (0.36-3.74) uIU/mL Urine Color (Yellow) Urine Clarity (Clear) Urine pH (5-8) Ur Specific Rhine (1.005-1.025) Urine Protein (Neg-Trace) mg/dL Urine Ketones (Negative) mg/dL Urine Blood (Negative) Urine Nitrite (Negative) Urine Bilirubin (Negative) Urine Urobilinogen (Up to 0.2) mg/dL Ur Leukocyte Esterase (Negative) Urine RBC Urine WBC (0-5) HPF Ur Epithelial Cells Urine Crystals Urine Bacteria Urine Mucus Ur Culture Indicated? Urine Glucose (Negative) mg/dL COVID-19 Source SARS-CoV-2 (PCR) Influenza Type A (PCR) Influenza Type B (PCR) RSV (PCR) Add-On Test Request DONE ABO/Rh Antibody Screen 05/31/25 05/31/25 05/31/25 Range/Units 13:30 13:22 12:30 WBC 12.46 H (4.4-10.8) 10^3/uL RBC 3.20 L (3.93-5.22) 10^6/uL Hgb 9.8 L (11.2-15.7) g/dL Hct 31.7 L (36.0-46.0) % MCV 99 H (80-95) fL MCH 30.6 (27.0-33.0) pg MCHC 30.9 L (32.0-36.0) % RDW 19.3 H (11.7-14.6) % Plt Count 188 (130-400) 10^3/uL MPV 10.2 (8.0-11.0) fL Immature Gran % 0.7 % Neutrophils % 76.5 % Lymphocytes % 17.3 % Monocytes % 5.2 % Eosinophils % 0.1 % Basophils % 0.2 % Nucleated RBC % 0.0 (0.0-0.3) % Absolute Neutrophils 9.53 H (1.2-6.7) 10^3/uL Absolute Lymphocytes 2.16 (1.2-3.4) 10^3/uL Absolute Monocytes 0.65 (0.1-0.8) 10^3/uL Absolute Eosinophils 0.01 (0.0-0.7) 10^3/uL Absolute Basophils 0.02 (0.0-0.2) 10^3/uL VBG pH 7.30 L (7.31-7.41) VBG pCO2 49 (41-51) mmHg VBG pO2 73 mmHg VBG HCO3 24 (23-28) mmol/L VBG Total CO2 23 L (24-29) mmol/L VBG O2 Saturation 92 % VBG Base Excess -3 L (-2-3) mmol/L VBG Lactate 6.8 H* (<or=2.0) mmol/L Sodium 139 (136-145) mmol/L Potassium 4.8 (3.5-5.1) mmol/L Chloride 102 (98-107) mmol/L Carbon Dioxide 26.1 (21.0-32.0) mmol/L Anion Gap 10.9 (3-11) mmol/L BUN 11 (7-18) mg/dL Creatinine 2.9 H (0.55-1.02) mg/dL Est GFR (CKD-EPI 2020) 17.42 (mL/min/1.73m2) Glucose 140 H (74-106) mg/dL Calcium 9.4 (8.5-10.1) mg/dL Magnesium 2.8 H (1.8-2.4) mg/dL Total Bilirubin 1.0 (0.2-1.0) mg/dL AST 100 H (15-37) U/L ALT < 6 L (14-59) U/L Alkaline Phosphatase 133 H (46-116) U/L Troponin I 26 (<or=51) ng/L Total Protein 6.7 (6.4-8.2) g/dL Albumin 1.8 L (3.4-5.0) g/dL Lipase (<78) U/L TSH 1.11 (0.36-3.74) uIU/mL Urine Color Dark Yellow (Yellow) Urine Clarity Cloudy (Clear) Urine pH 5.5 (5-8) Ur Specific Rhine 1.025 (1.005-1.025) Urine Protein >=300 H (Neg-Trace) mg/dL Urine Ketones 15 H (Negative) mg/dL Urine Blood Large H (Negative) Urine Nitrite Negative (Negative) Urine Bilirubin Small H (Negative) Urine Urobilinogen 1.0 H (Up to 0.2) mg/dL Ur Leukocyte Esterase Large H (Negative) Urine RBC Not Applicable Urine WBC >50 H (0-5) HPF Ur Epithelial Cells Not Applicable Urine Crystals Not Applicable Urine Bacteria Not Applicable Urine Mucus Not Applicable Ur Culture Indicated? Yes Urine Glucose 100 H (Negative) mg/dL COVID-19 Source Pending SARS-CoV-2 (PCR) Pending Influenza Type A (PCR) Pending Influenza Type B (PCR) Pending RSV (PCR) Pending Add-On Test Request ABO/Rh A Positive Antibody Screen NEGATIVE 05/31/25 13:22 Urine Culture - Pending Urine - Reflex from Ua 05/31/25 12:30 Blood Culture - Pending Blood 05/31/25 12:30 Blood Culture - Pending Blood Intake and Output - 24 Hour Total 05/31/25 12:17 thru 05/31/25 18:28 Intake Total 4990.941 Output Total 350 Balance 4640.941 Weight 72.6 kg Intake: IV 4990.941 Output: Gastric Drainage 200 Oral 200 Urine 150 Other: Urine Color Straw Urine Appearance Cloudy # Voids 1 Restraint Information Behavior Requiring Restraints/ Harm to Patient Seclusion Date of Initiation 05/31/25 Time Restraints were Initiated 14:57 Note CSMs re-assessed. Restraints continued for protection of pt lines/ET tube. Problems (Last Reviewed 02/12/25 @ 10:29 by Renetta Calvo RN) Acute hypoxemic respiratory failure (Acute) Macrocytic anemia (Acute) Septic shock (Acute) Hemiparesis affecting right side as late effect of cerebrovascular accident (Chronic) v v v v v v v v v Sending and/or Receiving Nurses: Please use comment section below to note any information pertinent to the patient hand-off not included above. Information / Comments: report recieved from Antoinette Rivers RN in the ER prior to the patient being transferred to the ICU unit. Report received from: Antoinette Rivers RN
[2025-05-31] MEDS: CEFEPIME 1 GM in Normal Saline 50 ML IVPB (20:02)
[2025-05-31] MEDS: PROPOFOL 1,000 MG/100 ML BTL 15 MG IV_INF (21:04)
[2025-05-31 22:22] LABS: COVID-19 PCR Negative (Negative); RSV PCR Negative (Negative)
[2025-05-31] MEDS: Norepinephrine in D5W 8 MG/250 ML BAG 103.125 MG IV (23:45)
[2025-06-01] VITALS (142 sets, daily range): BP systolic 95–123; BP diastolic 48–81; PULSE 0–190; RESP 13–20; TEMP 36.3–37.5; O2SAT 78–99
--- NOTE | 2025-06-01 00:30 | RT.EKG_ITS ---
APPROVED REPORT Exam: Resting ECG Reason for Exam: widining t-waves on monitor Patient Location: I HR:127 bpm ECG Measurements Heart Rate 127 AXIS CO [id number] P [id number] QRSd 166 QRS -45 QT 420 T 83 QTc 611 Conclusion Junctional tachycardia...absent P waves, rapid V-rate Left bundle branch block...QRSd>120, broad/notched R
[2025-06-01] MEDS: ACETAMINOPHEN 1,000 MG/100 ML BAG 400 MG IVPB ×3 (01:05→17:37)
[2025-06-01 01:11] LABS: Magnesium 2.6 mg/dL (1.8-2.4)
[2025-06-01] MEDS: fentaNYL 100 MCG/2 ML VIAL 25 MCG IVP (01:11)
[2025-06-01 01:13] LABS: Anion Gap 18.0 mmol/L (3-11); BUN 12 mg/dL (7-18); CO2 16.0 mmol/L (21.0-32.0); Calcium 8.0 mg/dL (8.5-10.1); Chloride 100 mmol/L (98-107); Estimated GFR 18.98 (mL/min/1.73m2); Glucose 369 mg/dL (74-106); Potassium 4.9 mmol/L (3.5-5.1); Sodium 134 mmol/L (136-145)
[2025-06-01 01:21] LABS: Troponin I 324 ng/L (<or=51)
--- NOTE | 2025-06-01 01:23 | W.EVENT ---
Date of service: 06/01/25 Time of Service: 12:40 Event Note: Patient has had borderline low MAPs in low 60s since admission despite maximum dosing norepinephrine and vasopressin, HR remains in 120s. I was called about concern for widening t-waves, repeat EKG shows widening QRS in the same LBBB pattern, no clear focal ischemia, though troponin trending up in ED, repeated here for trend continues up at 324, but this is c/w stress ischemia from sepsis. Lactate trended, was going up in ED, remains high at 8.7. Electrolytes repeated in case this contributing to cardiac instability, but my sense is that this is the acidosis and sepsis. I don't think it would help to use bicarb to temporize. Overall the situation hasn't fundamentally changed since admission. Goals of care were not to escalate, so we will continue current plan. Time Spent with Patient Time spent in critical care(minutes): 45 Time Spent Included: Coordination of care, Chart review, Documenting critically ill care, Time at immediate bedside and Discussing critically ill care with other medical staff
[2025-06-01] MEDS: Normal Saline Flush 10 ML SYR IVP (01:46)
[2025-06-01] MEDS: Norepinephrine in D5W 8 MG/250 ML BAG 112.5 MG IV (02:00)
[2025-06-01] MEDS: Lactated Ringers 1,000 ML 100 ML IV ×2 (02:31→12:33)
[2025-06-01] MEDS: INSULIN REGULAR IN 0.9 % NACL 100 UNIT/100 ML BAG IVINF (02:31)
[2025-06-01] MEDS: Norepinephrine in D5W 8 MG/250 ML BAG 131.25 MG IV ×2 (04:02→06:06)
[2025-06-01] MEDS: VASOPRESSIN 50 UNITS in Normal Saline 497.5 ML 24 UNITS IV (04:05)
[2025-06-01 06:23] LABS: HCT 35.6 % (36.0-46.0); HGB 10.3 g/dL (11.2-15.7); MCH 30.1 pg (27.0-33.0); MCHC 28.9 % (32.0-36.0); MCV 104 fL (80-95); MPV 10.1 fL (8.0-11.0); Platelet Count 366 10^3/uL (130-400); RBC 3.42 10^6/uL (3.93-5.22); RDW 19.2 % (11.7-14.6); RDW-SD 71.0 fL
[2025-06-01 06:25] LABS: WBC 30.94 10^3/uL (4.4-10.8)
[2025-06-01 06:45] LABS: Anion Gap 19.8 mmol/L (3-11); BUN 12 mg/dL (7-18); CO2 14.2 mmol/L (21.0-32.0); Calcium 8.2 mg/dL (8.5-10.1); Chloride 98 mmol/L (98-107); Estimated GFR 18.17 (mL/min/1.73m2); Glucose 346 mg/dL (74-106); Potassium 4.5 mmol/L (3.5-5.1); Sodium 132 mmol/L (136-145)
[2025-06-01 06:49] LABS: Vancomycin, Random 29.6 ug/mL
[2025-06-01] MEDS: Norepinephrine in D5W 8 MG/250 ML BAG 121.875 MG IV ×5 (08:06→16:55)
--- NOTE | 2025-06-01 09:06 | PDOC.CMIN ---
Date of service: 06/01/25 Time of Service: 09:06 Care Management Initial Assmt Initial Assessment Reason for Hospitalization: Septic Shock Functional Status/Living Situation Patient Presentation: Ginger is admitted for Septic shock and hypoxic respiratory failure. She is currently intubated and being closely monitored and medically managed in the ICU. She has a DNR in place, and her prognosis is poor. Dr. Scott is maintaining contact with her father Luis Armando, who is her designated HCA. CM will continue to follow and provide support as needed. This afternoon, Ngozi transitioned to comfort care. CM notified Vicky at the [facility], whom is planning to visit later today. Vicky is planning to bring her music tablet because she likes to listen to yazidi music. CM will let staff know Ginger may like to listen to music, if there is a tablet available and a visit from the [facility] may be helpful. CM will follow. Town of Residence: [place] Significant Other/Family: Out of area (Has family in [place]: Father Luis Armando [place] and sister Sandra Lee ) Caregiver/Guardian: Resident of the [facility] Employment Status: Disabled Instrumental Activities of Daily Living (ADLs): Requires support Medications Medication Management: No Issues/Barriers identified Physical Functioning/Mobility Assistive Device: Full support at the [facility], [facility] and is bed bound. Advance Directives Advance Directives: Do you have an Advance Directive: N 11/24/22, 10:12 AD On File at [facility]: N 11/24/22, 10:12 Date Asked 05/31/25 05/31/25, 12:59 AD Date Reviewed COLST On File at [facility] Yes 11/24/22, 10:12 COLST Date Scanned 12/01/22 02/12/25, 12:44 Code Status Resuscitation Status DNR Insurance Coverage/Financial Issues Insurance: Medicare Part B Only - [id number] Medicaid of [place] - [id number] Care Team Visit Care Team Role Provider Type Agueda Bingham Primary Care Provider NON-[facility] STAFF PHYSICIAN Andrzej Sylvester MD Other Providers [facility]FF PHYSICIAN Abhishek Montoya MD Emergency Provider [facility] PHYSICIAN Campbell Scott MD Admit Provider [facility] PHYSIC[facility] Attending Provider Discharge Potential Discharge Needs: PCP F/U Appt Anticipated Barriers to Discharge: None Identified Patient/Family Education Needs: Review discharge instructions, discuss Ask Me Three Transportation: EMS Plan: Ginger transitioned to comfort care this afternoon. Per Vicky from the [facility] she enjoys listening to yazidi music and she will try to bring her music tablet this afternoon. CM will continue to follow and provide support including updates to the [facility], as needed. Social Determinants of Health Screening Will the Patient Participate in the Screening?: Unable to obtain Health Related Social Needs Health related social needs details: unable to obtain PFS All Active Problems (Updated 06/01/25 @ 15:35 by Campbell Scott MD) Comfort measures only status (Acute) Acute hypoxemic respiratory failure (Acute) Macrocytic anemia (Acute) Septic shock (Acute) Incontinence (Acute) Nail dystrophy (Acute) Vulvar irritation (Acute) Decubitus ulcer (Acute) Sepsis (Acute) Pneumonia (Acute) Bacteremia (Acute) Diarrhea (Acute) Hypoalbuminemia (Acute) Hyperglycemia (Acute) High anion gap metabolic acidosis (Acute) Anemia (Chronic) Advanced care planning/counseling discussion (Acute) Gallstones (Acute) Tardive dyskinesia (Acute) Bipolar affective disorder, current episode depressed (Acute) rule out bipolar disorder reported by patient. Antiepileptics maybe preventing manic episode. Major depressive disorder, recurrent, severe with psychotic features (Acute) Current presentation is depression. She may have bipolar affective disorder. Ambulatory dysfunction (Chronic) Dysarthria as late effect of cerebrovascular accident (CVA) (Acute) Dysphagia as late effect of cerebrovascular accident (CVA) (Chronic) Hemiparesis affecting right side as late effect of cerebrovascular accident (Chronic) Medical History (Updated 06/01/25 @ 15:35 by Campbell Scott MD) Diabetes mellitus type 2, insulin dependent Parkinsonism Bipolar 1 disorder Acute bronchitis Diarrhea Abdominal bloating Abdominal pain Pyelonephritis Microcytic anemia Emphysematous pyelonephritis Hydronephrosis of right kidney Pyuria due to bacterial urinary tract infection Arthritis of left shoulder region Left rotator cuff tear Cough Ileus History of stroke (R) Sided hemiparesis and (R) contracture of elbow Palliative care encounter Diverticulosis Nephrolithiasis Uterine mass likely a fibroid Cholelithiasis with acute cholecystitis s/p cholecystostomy and stone extraction in 2014 ([facility]), tube now pulled. 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 vasculitis UTI (urinary tract infection) Chronic chest pain Constipation Staghorn calculus Autoimmune disorder Neck pain UTI (urinary tract infection) Aphasia as late effect of cerebrovascular accident Surgical History History of extraction of renal calculus 12/13/2018 - [facility] S/P cystoscopy with ureteral stent placement [facility] 11/2018 History of hip surgery right H/O wrist surgery H/O foot surgery History of lumbosacral spine surgery Abnormal cholangiogram H/O cervical spine surgery Status post creation of urethral sling by suprapubic approach Family History Mother Stroke Social History Smoking/Tobacco Use Status: Unknown Smoking risk assessment performed?: Yes Alcohol Intake: former Drug use: Current Sobriety Substance use type: former substance user and IV drugs Housing: shelter Number of Children: 5 Education Level: elementary school Details: 6th grade, special ed, left school age 16. Current gender identity: female What is your relationship status?: Panel score (0-1 are the most socially isolated patients): 0 What type of physical activity do you participate in: none Do you feel safe at home: Yes Do you feel safe in your relationship?: Yes Additional Social history: The Ana M
[2025-06-01] MEDS: CEFEPIME 1 GM in Normal Saline 50 ML IVPB (09:22)
[2025-06-01] MEDS: Enoxaparin 30 MG/0.3 ML SYR SC (09:22)
[2025-06-01] MEDS: INSULIN REGULAR IN 0.9 % NACL 100 UNIT/100 ML BAG 10 UNIT IVINF (15:22)
--- NOTE | 2025-06-01 15:34 | W.PM.PROGNOT ---
Date of Service Date of service: 06/01/25 Time of Service: 15:34 Assessment and Plan Assessment and plan (1) Comfort measures only status: Status: Acute Assessment and plan: - Given patient's prolonged chronic medical illness given left-sided CVA with right-sided hemiaplasia, decision was made on admission for patient to be no escalation of care and DNR. Multiple prolonged discussions were had with the patient's father and her medical decision maker today on 06/01/2025, given that the patient's condition has been slowly worsening, decision was made for her to transition to comfort measures only - Antibiotics have been discontinued - Stop vital checks - However, at this time not discontinuing pressors or terminally extubating as patient may be candidate for organ donation. Continuing to wait for organ bank instructions on how to proceed in the event that the patient is determined to be an organ donor. 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 - Patient meets criteria for septic shock with heart rate in the 120s, white blood cell count 12.4, source of infection presumed UTI with chronic indwelling Martinez catheter and/or aspiration pneumonia, creatinine of 2.7 indicating DALTON (baseline less than 1), ongoing hypotensive with mean arterial blood pressure less than 65 despite 4 L of normal saline fluid resuscitation requiring central line placement with both Levophed and vasopressin to maintain mean arterial pressure greater than 65, as well as initial lactic of 6.8 that increased up to 8.5 - Patient was started on Vanco and Zosyn, will change to Vanco and cefepime given that patient also has DALTON - Continue Levophed and vasopressin to maintain mean arterial pressure greater than 65, preferentially wean vasopressin first (3) Acute hypoxemic respiratory failure: Status: Acute Assessment and plan: - Requiring intubation as patient was obtunded upon arrival and pulse ox was 68% - Initial difficulty with ET tube placement which has since been resolved (4) Acute kidney injury: Status: Resolved Assessment and plan: - Secondary to septic shock as noted above - Follow-up a.m. creatinine (5) Lactic acid acidosis: Status: Resolved Assessment and plan: - Secondary to septic shock and hypoxemia as noted above - Follow-up a.m. lactic acid (6) Hemiparesis affecting right side as late effect of cerebrovascular accident: Status: Chronic Assessment and plan: - Chronic after significant CVA Subjective Subjective Interval history since last seen: Prolonged discussion had with patient's father who is her medical decision maker, and decision was made for patient to transition to comfort measures only. Exam Narrative Exam Narrative: Chronically ill-appearing intubated and sedated female, does not appear in any acute distress, heart rate 140s, regular rhythm, lungs with mechanical breath sounds in bilateral lung yeugn, abdomen distended, soft Objective Last Vital Signs Temp 99.0 F 06/01/25 12:46 Pulse 121 H 06/01/25 15:10 Resp 16 06/01/25 15:10 BP 115/64 06/01/25 15:00 Pulse Ox 91 L 06/01/25 15:10 Laboratory Results - last 24 hr 05/31/25 05/31/25 05/31/25 15:29 15:52 17:22 WBC RBC Hgb Hct MCV MCH MCHC RDW Plt Count MPV VBG Lactate 7.7 H* 8.5 H* Sodium 138 Potassium 4.5 Chloride 103 Carbon Dioxide 20.2 L Anion Gap 14.8 H BUN 10 Creatinine 2.7 H Est GFR (CKD-EPI 2020) 18.98 Glucose 222 H Calcium 8.3 L Magnesium Troponin I 76 H* 147 H* Lipase 10 Random Vancomycin COVID-19 Source SARS-CoV-2 (PCR) Influenza Type A (PCR) Influenza Type B (PCR) RSV (PCR) Add-On Test Request DONE 05/31/25 06/01/25 06/01/25 21:15 00:50 05:36 WBC 30.94 H* RBC 3.42 L Hgb 10.3 L Hct 35.6 L MCV 104 H D MCH 30.1 MCHC 28.9 L RDW 19.2 H Plt Count 366 D MPV 10.1 VBG Lactate 8.7 H* Sodium 134 L 132 L Potassium 4.9 4.5 Chloride 100 98 Carbon Dioxide 16.0 L 14.2 L Anion Gap 18.0 H 19.8 H BUN 12 12 Creatinine 2.7 H 2.8 H Est GFR (CKD-EPI 2020) 18.98 18.17 Glucose 369 H 346 H Calcium 8.0 L 8.2 L Magnesium 2.6 H Troponin I 324 H* Lipase Random Vancomycin 29.6 COVID-19 Source Nasopharynx SARS-CoV-2 (PCR) Negative Influenza Type A (PCR) Negative Influenza Type B (PCR) Negative RSV (PCR) Negative Add-On Test Request Time Spent with Patient Time Spent with Patient: >50 minutes Time was spent: preparing to see the patient(eg.review tests), obtaining and/or reviewing separately otained hiistory, ordering medications,tests, procedures, referring, communicating with other health resident care associate, indepentently interpreting results, counseling the patient and care coordination
[2025-06-01] MEDS: PROPOFOL 1,000 MG/100 ML BTL 10 MG IV_INF (16:29)
[2025-06-01] MEDS: VASOPRESSIN 50 UNITS in Normal Saline 497.5 ML 42 UNITS IV (16:34)
[2025-06-01] MEDS: Norepinephrine in D5W 8 MG/250 ML BAG 150 MG IV (18:57)
--- NOTE | 2025-06-01 19:52 | NUR.NOTE ---
Called father and left message on voicemail to call hospital. After 20mins, no return call. Called adn spoke to her sister Sandra (number on file) and asked her to reach pt's father and let him know to call [facility]. Nursing Note:
--- NOTE | 2025-06-01 22:16 | W.PM.DDS ---
Date of service: 06/01/25 Time of Service: 20:16 Discharge Plan Disposition Patient Disposition: Discharge Details Reason For Visit: Septic Shock Admit Date/Time: 05/31/25 16:45 Admit Provider: Campbell Scott Attending Provider: Campbell Scott Primary Care Provider: Agueda Bingham Hospital Course Hospital Course: 65-year-old female with a past medical history of CVA with chronic right-sided deficit, parkinsonism, bipolar 1, chronic urinary retention with indwelling suprapubic catheter who presented to the ED after being found unresponsive at the [facility]. She was obtunded and hypoxic to and intubated in the emergency room. She was treated for sepsis with initial antibiotics piperacillin/tazobactam. Urine was consistent with infection, WBC and lactate was elevated and she remained hypotensive with lactate increasing and oliguria despite aggressive fluid resuscitation. She required norepinephrine and vasopressin in the emergency room. Her troponin trended up without ischemic ST changes, which was reviewed with cardiology and felt to be type 2 ischemia. The severity of her illness was discussed with her father (DPHERMINIA) and sister, who wanted to continue supportive care but did not want to transfer or continue care if she was not improving. Due to the DALTON the pip/tazo was changed to cefepime along with vancomycin. Insulin drip was started as part of supportive intensive care. Blood and urine grew GNR. After the first 24 hours she did not improve significantly. Lactate remained very elevated at 8.7 and creatinine remained elevated at 2.8 with WBC increasing from 12.5 to 30.9. That afternoon after discussion with family, the decision was made to transition to comfort measures only status. She passed later that afternoon. Discharge Data Cause of : Gram negative septic shock Discharge Sum: Prov Provider Primary care physician: Agueda Bingham Admitting clinician: Campbell Scott Attending physician on admission: Campbell Scott Consults: 05/31/25 18:56 Pulmonology Consult [CONS] Routine Consulting Provider: Andrzej Sylvester Consultation Status:: Follow-up needed Clarification:: Manage/follow per spec. Reason for consult:: septic shock, intubated, two pressors Pronouncing clinician: Abhishek Vega Discharge Sum: Diag PCOD Cause of : Gram negative septic shock Contributing Factors (1) Septic shock: Contributing factors: GNR, urinary source (2) Acute hypoxemic respiratory failure: (3) Acute kidney injury: (4) Lactic acid acidosis: (5) Hemiparesis affecting right side as late effect of cerebrovascular accident: Discharge Sum: Summary Date and Time Admission Date: 05/31/25 Date of : 06/01/25 Time of : 19:12 Summary Details: 65-year-old female with a past medical history of CVA with chronic right-sided deficit, parkinsonism, bipolar 1, chronic urinary retention with indwelling suprapubic catheter who presented to the ED after being found unresponsive at the [facility]. She was obtunded and hypoxic to and intubated in the emergency room. She was treated for sepsis with initial antibiotics piperacillin/tazobactam. Urine was consistent with infection, WBC and lactate was elevated and she remained hypotensive with lactate increasing and oliguria despite aggressive fluid resuscitation. She required norepinephrine and vasopressin in the emergency room. Her troponin trended up without ischemic ST changes, which was reviewed with cardiology and felt to be type 2 ischemia. The severity of her illness was discussed with her father (DPHERMINIA) and sister, who wanted to continue supportive care but did not want to transfer or continue care if she was not improving. Due to the DAL[place] the pip/tazo was changed to cefepime along with vancomycin. Insulin drip was started as part of supportive intensive care. Blood and urine grew GNR. After the first 24 hours she did not improve significantly. Lactate remained very elevated at 8.7 and creatinine remained elevated at 2.8 with WBC increasing from 12.5 to 30.9. That afternoon after discussion with family, the decision was made to transition to comfort measures only status. She remained on the ventilator and pressure support initially for organ donation, but cardiac arrest occured and she passed later that afternoon. Additional Data Confirmation of as documented by pronouncing clinician: no pulse, no respirations, no heart sounds and pupils fixed and dilated Family: contacted Attending/PCP notified?: Yes Attending Physician: Abhishek Vega Was code activated?: No Autopsy requested?: No disability insurance claim examiner notified?: No Organ bank notified?: Yes Advance directives: Yes Hospice patient?: No
== END 2025-06-01 19:15 | disposition expired | DRG 871 ==
LOC: ER 16:48 → ICU 17:50
PROVIDERS: Family Medicine; Admitting Provider Family Medicine; Emergency Provider Emergency Medicine; PCP Family Medicine; Responsible Provider Family Medicine; Visit Provider Family Medicine
DX: J96.01 Acute respiratory failure with hypoxia; R65.21 Severe sepsis with septic shock; N17.9 Acute kidney failure, unspecified; E87.20 Acidosis, unspecified; I69.351 Hemiplegia and hemiparesis following cerebral infarction affecting right dominant side; A41.50 Gram-negative sepsis, unspecified; G93.40 Encephalopathy, unspecified; F33.3 Major depressive disorder, recurrent, severe with psychotic symptoms; E27.40 Unspecified adrenocortical insufficiency; N13.30 Unspecified hydronephrosis; N39.0 Urinary tract infection, site not specified; D53.9 Nutritional anemia, unspecified; Z51.5 Encounter for palliative care; Z79.899 Other long term (current) drug therapy; Z79.84 Long term (current) use of oral hypoglycemic drugs; E83.41 Hypermagnesemia; E88.09 Other disorders of plasma-protein metabolism, not elsewhere classified; Z66 Do not resuscitate; I69.391 Dysphagia following cerebral infarction; R13.10 Dysphagia, unspecified; I69.322 Dysarthria following cerebral infarction; E03.9 Hypothyroidism, unspecified; Z79.52 Long term (current) use of systemic steroids; F41.9 Anxiety disorder, unspecified; I10 Essential (primary) hypertension; E66.9 Obesity, unspecified; E11.9 Type 2 diabetes mellitus without complications; G20.A1 Parkinson's disease without dyskinesia, without mention of fluctuations; I44.7 Left bundle-branch block, unspecified; Z93.51 Cutaneous-vesicostomy status; Z79.4 Long term (current) use of insulin
CPT/HCPCS: 00123; 31500; 36415; 36556; 71045; 71250; 76937; 80048; 80053; 82805; 83690; 85027; 86850; 86900; 86901; 87040; 87077; 87637; 93005; 93308; 96365; 96366; 96367; 96375; 99291; 36620; 70450; 74176; 80202; 81003; 81015; 83605; 83735; 84443; 84484; 85025; 87086; 87186; 93010; 94002; 94003; 94760; 99223; 99233; J0131; J0692; J1171; J1650; J2543; J2598; J2704; J3010; J3373